=== PATIENT | female | born 1960 | race Caucasian/White ===

== ENCOUNTER 2018-09-20 11:49 | Emergency (ER) | payer OTHER ==
[~2018-09-20] VITALS: Ht 170.2 cm; Wt 114.3 kg
--- OUTSIDE RECORDS SUMMARY | ~2018-09-20 | XMS | Clinical Summary ---
Demographics + + + | Address | [address] | | | [place] [address] | + + + | Home Phone | | + + + | Preferred Language | Unknown | + + + | Marital Status | Single | + + + | Episcopal Affiliation | Unknown | + + + | Race | Unknown | + + + | Ethnic Group | Unknown | + + + Author + + + | Author | [facility] | | | and [place] | + + + | Organization | [facility] | | | and [place] | + + + | Address | Unknown | + + + | Phone | Unavailable | + + + Support + + +---------+ + | Name | Relationship | Address | Phone | + + +---------+ + | Ashleigh,Gene | ECON | Unknown | | + + +---------+ + Care Team Providers + +------+ + | Care Auto Porter Name | Role | Phone | + +------+ + | Naren Nina PA-C | PP | | + +------+ + Allergies + + + + + + | Active Allergy | Reactions | Severity | Noted | Comments | | | | | Date | | + + + + + + | Codeine | | | 11/17/19 | | | | | | 16 | | + + + + + + | Morphine | | Medium | 07/13/20 | Other reaction(s): | | | | | 16 | Other (See | | | | | | Comments) Used LOW PRESSURE KETTLE OPERATOR | | | | | | and it lowered her | | | | | | BP And medication | | | | | | was stopped | + + + + + + Medications + + + +---------+------+------+-------+ | Medication | Sig | Dispensed | Refills | Star | End | Statu | | | | | | t | Date | s | | | | | | Date | | | + + + +---------+------+------+-------+ | acetaminophen | Take 650 mg by mouth | | 0 | | | Activ | | (TYLENOL) 325 mg | every 4 hours as | | | | | e | | tablet | needed for Pain | | | | | | | | (Take 1 or 2 tablets | | | | | | | | by mouth every 4 to | | | | | | | | 6 hours if needed | | | | | | | | for pain or fever | | | | | | | | (Tylenol Equiv)). | | | | | | + + + +---------+------+------+-------+ | ALBUTEROL IN | Inhale 90 mcg into | | 0 | | | Activ | | | the lungs 4 times | | | | | e | | | daily as needed (2 | | | | | | | | puffs). | | | | | | + + + +---------+------+------+-------+ | | Inhale 1 puff into | | 0 | | | Activ | | albuterol-ipratropiu | the lungs 4 times | | | | | e | | m (COMBIVENT | daily. | | | | | | | RESPIMAT) 100-20 | | | | | | | | mcg/puff inhaler | | | | | | | + + + +---------+------+------+-------+ | ARIPiprazole | Take 10 mg by mouth | | 0 | | | Activ | | (ABILIFY) 10 mg | nightly. Begin after | | | | | e | | tablet | initial titration | | | | | | | | is completed | | | | | | + + + +---------+------+------+-------+ | cholecalciferol | Take 5,000 Units by | | 0 | | | Activ | | (VITAMIN D-3) 5000 | mouth Daily. | | | | | e | | units TABS | | | | | | | + + + +---------+------+------+-------+ | DULoxetine | Take 60 mg by mouth | | 0 | | | Activ | | (CYMBALTA) [address] | Daily. Take one | | | | | e | | capsule | capsule by mouth at | | | | | | | | bedtime for | | | | | | | | depression. Please | | | | | | | | start after initial | | | | | | | | titration is | | | | | | | | completed | | | | | | + + + +---------+------+------+-------+ | levothyroxine | Take 25 mcg by mouth | | 0 | | | Activ | | (SYNTHROID, | Daily. | | | | | e | | LEVOTHROID) 25 mcg | | | | | | | | tablet | | | | | | | + + + +---------+------+------+-------+ | loratadine | Take 10 mg by mouth | | 0 | | | Activ | | (CLARITIN) 10 mg | Daily as needed for | | | | | e | | tablet | Allergies. | | | | | | + + + +---------+------+------+-------+ | LORazepam (ATIVAN) | Take 1 mg by mouth 2 | | 0 | | | Activ | | 1 mg tablet | times daily. | | | | | e | + + + +---------+------+------+-------+ | methocarbamol | Take 750 mg by mouth | | 0 | | | Activ | | (ROBAXIN) 750 mg | 3 times daily. | | | | | e | | tablet | | | | | | | + + + +---------+------+------+-------+ | mometasone | Inhale 2 puffs into | | 0 | | | Activ | | (ASMANEX) 220 | the lungs Daily. | | | | | e | | mcg/puff inhaler | Rinse mouth after | | | | | | | | use | | | | | | + + + +---------+------+------+-------+ | nicotine | Place 1 patch onto | | 0 | | | Activ | | (NICODERM) 14 mg/24 | the skin every 24 | | | | | e | | hr | hours. | | | | | | + + + +---------+------+------+-------+ | nicotine | Place 1 patch onto | | 0 | | | Activ | | (NICODERM) 21 mg/24 | the skin every 24 | | | | | e | | hr | hours. | | | | | | + + + +---------+------+------+-------+ | nicotine | Place 1 patch onto | | 0 | | | Activ | | (NICODERM) 7 mg/24 | the skin every 24 | | | | | e | | hr | hours. | | | | | | + + + +---------+------+------+-------+ | OMEPRAZOLE PO | Take 20 mg by mouth | | 0 | | | Activ | | | 2 times daily. | | | | | e | + + + +---------+------+------+-------+ | traZODone | Take 100 mg by mouth | | 0 | | | Activ | | (DESYREL) 100 mg | nightly. Take 1/2-2 | | | | | e | | tablet | tablets by mouth at | | | | | | | | bedtime as needed | | | | | | | | for sleep | | | | | | + + + +---------+------+------+-------+ | DULoxetine | 1 capsule by mouth | 30 | 1 | 07/1 | | Activ | | (CYMBALTA) [address] | at bedtime with 60 | capsule | | 3/20 | | e | | capsule | mg at bedtime for | | | 16 | | | | | total of 90 mg | | | | | | + + + +---------+------+------+-------+ | gabapentin | 1 capsule by mouth | 120 | 1 | 07/1 | | Activ | | (NEURONTIN) 300 mg | at bedtime for 3 | capsule | | 3/20 | | e | | capsule | days; then 1 twice | | | 16 | | | | | daily for 4 days; | | | | | | | | then 1 three times | | | | | | | | daily for 7 days; | | | | | | | | then 1 qAM, 1 qNoon, | | | | | | | | and 2 qHS | | | | | | + + + +---------+------+------+-------+ Active Problems No known active problems Family History + + +------+ + | Medical History | Relation | Name | Comments | + + +------+ + | Heart defect | Brother | | | + + +------+ + | Diabetes | Father | | | + + +------+ + | Stroke | Father | | | + + +------+ + | Heart failure | Mother | | | + + +------+ + | Breast cancer | Sister | | | + + +------+ + | Cancer | Sister | | skin | + + +------+ + | Other (see comment) | Sister | | Endocrine and Metabolic disease | + + +------+ + | Ovarian cancer | Sister | | | + + +------+ + + +------+ + + | Relation | Name | Status | Comments | + +------+ + + | Brother | | | | + +------+ + + | Father | | | | + +------+ + + | Mother | | | Heart failure | | | | (Age | | | | | 60) | | + +------+ + + | [...] | | + + +---------+ + | No | 0 | 0.0 | | | | Standard | | | [...] recent travel history available. | + + Last Filed Vital Signs + + + + | Vital Sign | Reading | Time Taken | + + + + | Blood Pressure | 148/93 | 02/01/201644 PDT | + + + + | Pulse | 70 | 02/01/201644 PDT | + + + + | Temperature | - | - | + + + + | Respiratory Rate | 19 | 02/01/2016843 PDT | + + + + | Oxygen Saturation | - | - | + + + + | Inhaled Oxygen | - | - | | Concentration | | | + + + + | Weight | 109.8 kg (242 lb) | 02/01/2016843 PDT | + + + + | Height | 170.2 cm (5' 7") | 02/01/2016843 PDT | + + + + | Body Mass Index | 37.9 | 02/01/2016 0844 PDT | + + + + Plan of [...] + + | Vaccine: Influenza | | | | | (Season Ended) | 9 | | | + + + + + Results Not on filefrom Last 3 Months Insurance + +--------+ +--------+ +---------+--------+ | Payer | Benefi | Subscriber | Effect | Phone | Address | Type | | | t Plan | ID | lizet | | | | | | / | | Dates | | | | | | Group | | | | | | + +--------+ +--------+ +---------+--------+ | [place]ICAID [place] | MEDICA | [id number] | 09/03/19 | [phone] | | Medica | | | ID | | 16-Pre | 2 | | id | | | [place] | | sent | | | | + +--------+ +--------+ +---------+--------+ + +--------+ +--------+ + + | Guarantor Name | Accoun | Relation to | Date | Phone | Billing Address | | | t Type | Patient | of | | | | | | | | | | + +--------+ +--------+ + + | Bisi Becker | Person | Self | [birth year] | [address] | | | [place] | | 1960 | [phone] | [place] | | | [place] | | | 1 (Home) | [address] | + +--------+ +--------+ + + Advance Directives Patient has advance care planning documents on file. For more information, please contact:[facility] [place] [address]
--- OUTSIDE RECORDS SUMMARY | ~2018-09-20 | XMS | Clinical Summary ---
Demographics + + + | Address | [address] | | | [place] [address] | + + + | Home Phone | | + + + | Preferred Language | Unknown | + + + | Marital Status | Single | + + + | Oriental Orthodox Affiliation | 1009 | + + + | Race | Unknown | + + + | Ethnic Group | Unknown | + + + Author + + + | Author | [facility] [facility] | + + + | Organization [...] Team Providers + +------+ + | Care Cotton Broker Name | Role | Phone | + [...] | | | | | Comments) Used PSYCHOLOGIST DEVELOPMENTAL | | | | | | and it lowered her | | | | | | BP And medication | | | | | | was stopped Used | | | | | | PSYCHOLOGIST DEVELOPMENTAL and it lowered | | | | [...] | will have pt speak with the watershed coordinator today to help | | get [...] is | | maintaining. | + + Immunizations + + + + | Name [...] | | | | | | | C, MD | | | | | | /[address] | | | | | | | [...] +------+-------+ + | MEDICAID | MEDICA | [id number] | | | [address] | | | ID | | | | [place] | | | [place] | | | | [address] | + +--------+ +------+-------+ + + +--------+ +--------+ + + | Guarantor Name | Accoun | Relation to | Date | Phone | Billing Address | | | t Type | Patient | of | | | | | | | | | | + +--------+ +--------+ + + | NOHEMI BECKER | Person | Self | [birth year] | Home: | [address] | | | al/Fam | | 1960 | [phone] | [place] | | | [place] | | | [phone] | [phone] | + +--------+ +--------+ + +
--- OUTSIDE RECORDS SUMMARY | ~2018-09-20 | XMS | Clinical Summary ---
Demographics + + + | Address | [address] | | | [place] [address] | + + + | Home Phone | | + + + | Preferred Language | Unknown | + + + | Marital Status | Single | + + + | Orthodox Affiliation | Unknown | + + + | Race | Unknown | + + + | Ethnic Group | Unknown | + + + Author + + + | Author | [facility] | | | and [place] | + + + | Organization | [facility] | [...] Team Providers + +------+ + | Care Veterinary Assistant Name | Role | Phone | [...] | | | | | Comments) Used HAND WORKER | | | | | | and [...] +---------+--------+ | [place]ICAID [place] | MEDICA | [id number] | 09/03/19 | [phone] | | Medica [...] Self | [birth year] | [address] | | | [place] | | 1960 | [phone] | [place] | | | [place] | | | 1 (Home) | [address] | + +--------+ +--------+ + + Advance Directives Patient has advance care planning documents on file. For more information, please contact:[facility] [place] [address]
--- OUTSIDE RECORDS SUMMARY | ~2018-09-20 | XMS | Clinical Summary ---
Demographics + + + | Address | [address] | | | [place] [address] | + + + | Home Phone | | + + + | Preferred Language | Unknown | + + + | Marital Status | Single | + + + | Temple Affiliation | 1009 | + + + | Race | Unknown | + + + | Ethnic Group | Unknown | + + + Author + + + | Author | [facility] [facility] | + + + | Organization [...] Team Providers + +------+ + | Care Press Operator Instant Print Shop Name | Role | Phone | + [...] | | | | | Comments) Used WOOD CRAFTER | | | | | | and it lowered her | | | | | | BP And medication | | | | | | was stopped Used | | | | | | WOOD CRAFTER and it lowered | | | | [...] | will have pt speak with the habitat management coordinator today to help | | get [...] MD | | | | | | /[address] | | | | | | | [...] +------+-------+ + | MEDICAID | MEDICA | [id number] | | | [address] | | | ID | | | | [place] | | | [place] | | | | [phone] | + +--------+ +------+-------+ + + +--------+ +--------+ + + | Guarantor Name | Accoun | Relation to | Date | Phone | Billing Address | | | t Type | Patient | of | | | | | | | | | | + +--------+ +--------+ + + | NOHEMI BECKER | Person | Self [birth year] | Home: | [address] | | | al/Fam | | 1960 | [phone] | [place] | | | [place] | | | [phone] | [phone] | + +--------+ +--------+ + +
[~2018-09-20 11:49] MED LIST: ABILIFY20 MG PO; ALBUTEROL2.5 MG/0.5 INH; ATIVAN0.5 MG PO; ATIVAN1 MG PO; ATROVENT HFA12.9 GM INH; CALCIUM 600 +1 EAC5 PO; CHANTIX1 MG PO; CIPRO500 MG PO; COMBIVENT RESPIM4 GM INH; CYCLOBENZAPRINE10 MG PO; CYMBALTA30 MG PO; DOXYCYCLINE HY100 MG PO; ESTRADIOL1 EAC1 TD; FLUOXETINE HCL20 MG PO; FORMOTEROL FUMAR1 GM INH; GABAPENTIN300 MG PO; IBU800 MG PO; IBUPROFEN200 MG PO; LAMICTAL100 MG PO; LEVAQUIN750 MG PO; LEVOTHROID25 MCG PO; LEVOTHYROXINE25 MCG PO; LISINOPRIL10 MG PO; LISINOPRIL20 MG PO; LORAZEPAM1 MG PO; MAGNESIUM400 M1 PO; METHOCARBAMOL500 MG PO; MOTRIN800 MG PO; NALTREXONE HCL50 MG PO; NAPROSYN500 MG PO; NAPROXEN500 MG PO; NORCO 5-325 TA1 EACH PO; OMEPRAZOLE20 MG PO; ONDANSETRON ODT4 MG SL; OXYCODONE HCL5 MG PO; PREDNISONE20 MG PO; PRINZIDE 20-121 EACH PO; PROVENTIL HFA6.7 GM INH; QVAR7.3 G1 INH; TRAMADOL HCL50 MG PO; TRAZODONE HCL100 MG PO; VISTARIL25 MG PO; VITAMIN D5000 UNI1 PO; ZITHROMAX250 MG PO; ZOFRAN4 MG PO
--- OUTSIDE RECORDS SUMMARY | 2018-09-20 11:52 | XMS ---
PreManage Notification: NOHEMI ESPITIA Security Client Services Specialist Events No recent Security Events currently on file CRITERIA MET - [facility] PROVID[facility] Current PHONE: Unknown Chuck has no Care Guidelines for this patient. EMarily VISIT COUNT (12 MO.) 1 CASANDRA Munoz TOTAL 1 NOTE: Visits indicate total known visits. ED/UCC VISIT TRACKING (12 MO.) 09/20/2018 11:[address] [facility] [place] TYPE: Emergency COMPLAINT: - FLANK PAIN/ABD PAIN INPATIENT VISIT TRACKING (12 MO.) No inpatient visits to display in this time frame [id number]
[2018-09-20] MEDS ORDERED: VENTOLIN HFA18 GM INH (15:53)
== END 2018-09-20 16:00 | disposition home or self-care (01) ==
LOC: ED 11:49
DX: R10.9 Unspecified abdominal pain (principal); J44.1 Chronic obstructive pulmonary disease with (acute) exacerbation; I10 Essential (primary) hypertension; E78.5 Hyperlipidemia, unspecified; E03.9 Hypothyroidism, unspecified; Z85.828 Personal history of other malignant neoplasm of skin; F17.200 Nicotine dependence, unspecified, uncomplicated; Z90.710 Acquired absence of both cervix and uterus; Z79.899 Other long term (current) drug therapy
CPT/HCPCS: 36415; 80053; 81001; 83690; 85025; 99284-25; 99406

== ENCOUNTER 2018-10-11 18:54 | Emergency (ER) | payer OTHER ==
[~2018-10-11] VITALS: Ht 170.2 cm; Wt 106.4 kg
--- OUTSIDE RECORDS SUMMARY | ~2018-10-11 | XMS | Clinical Summary ---
Demographics + + + | Address | [address] | | | [place] [address] | + + + | Home Phone | | + + + | Preferred Language | Unknown | + + + | Marital Status | Single | + + + | Druze Affiliation | 1009 | + + + | Race | Unknown | + + + | Ethnic Group | Unknown | + + + Author + + + | Author | [facility] | + + + | Organization | [facility] | + + + | Address | Unknown | + + + | Phone | Unavailable | + + + Support + + +---------+ + | Name | Relationship | Address | Phone | + + +---------+ + | Mark Lewis | ECON | Unknown | | + + +---------+ + Care Team Providers + +------+ + | Care Supervisor Farm Equipment Maintenance Name | Role | Phone | + +------+ + | Naren Nina | PP | | + +------+ + Allergies + + + + + + | Active Allergy | Reactions | Severity | Noted | Comments | | | | | Date | | + + + + + + | Codeine | Other (See Comments) | Medium | 11/17/19 | | | | | | 16 | | + + + + + + | Morphine | Other (See Comments) | Medium | 01/23/20 | Other reaction(s): | | | | | 14 | Other (See | | | | | | Comments) Used MDS COORDINATOR | | | | | | and it lowered her | | | | | | BP And medication | | | | | | was stopped Used | | | | | | MDS COORDINATOR and it lowered | | | | | | her BP And | | | | | | medication was | | | | | | stopped | + + + + + + Current Medications + + + +---------+------+------+-------+ | Prescription | Sig. | Disp. | Refills | Star | End | Statu | | | | | | t | Date | s | | | | | | Date | | | + + + +---------+------+------+-------+ | FLUoxetine | Take 1 capsule by | 90 | 3 | 01/2 | | Activ | | (PROZAC) 40 MG | mouth daily. | capsule | | 2/20 | | e | | capsuleIndications: | | | | 14 | | | | Depression | | | | | | | + + + +---------+------+------+-------+ | loratadine | Take 1 tablet by | 90 | 3 | 03/2 | | Activ | | (CLARITIN) 10 MG | mouth daily. | tablet | | 1/20 | | e | | tablet | | | | 14 | | | + + + +---------+------+------+-------+ | omeprazole | Take 20 mg by mouth | | | | | Activ | | (PRILOSEC) 20 MG | every morning before | | | | | e | | capsule | breakfast. | | | | | | + + + +---------+------+------+-------+ | LORazepam (ATIVAN) | Take 1 tablet by | 50 | 0 | 07/1 | | Activ | | 1 MG | mouth every 6 (six) | tablet | | 1/20 | | e | | tabletIndications: | hours as needed for | | | 14 | | | | Anxiety | Anxiety. | | | | | | + + + +---------+------+------+-------+ | | Inhale 2 puffs into | 2 each | 11 | 07/2 | | Activ | | ipratropium-albutero | the lungs every 6 | | | 1/20 | | e | | l (COMBIVENT | (six) hours as | | | 14 | | | | RESPIMAT) 20-100 | needed for Wheezing. | | | | | | | MCG/ACT inhaler | | | | | | | + + + +---------+------+------+-------+ | buPROPion | Take 150 mg by mouth | | | | | Activ | | (WELLBUTRIN XL) 150 | 2 (two) times | | | | | e | | MG 24 hr tablet | daily. Not sure of | | | | | | | | dose | | | | | | + + + +---------+------+------+-------+ | gabapentin | take 1 capsule by | 60 | 0 | 10/0 | | Activ | | (NEURONTIN) 100 MG | mouth twice a day | capsule | | 7/20 | | e | | capsule | | | | 14 | | | + + + +---------+------+------+-------+ | promethazine | Take 1 tablet by | 30 | 0 | 10/2 | | Activ | | (PHENERGAN) 25 MG | mouth every 6 (six) | tablet | | 2/20 | | e | | tabletIndications: | hours as needed for | | | 14 | | | | Nausea | Nausea. | | | | | | + + + +---------+------+------+-------+ | gabapentin | take 2 capsules by | 60 | 0 | 11/0 | | Activ | | (NEURONTIN) 300 MG | mouth every evening | capsule | | 8/20 | | e | | capsule | | | | 14 | | | + + + +---------+------+------+-------+ | levothyroxine | Take 1 tablet by | 90 | 3 | 11/1 | | Activ | | (SYNTHROID) 25 MCG | mouth every morning | tablet | | 1/20 | | e | | tabletIndications: | before breakfast. | | | 14 | | | | Hypothyroid | | | | | | | + + + +---------+------+------+-------+ | methocarbamol | Take 750 mg by mouth | | | | | Activ | | (ROBAXIN) 750 MG | 3 (three) times | | | | | e | | tablet | daily. | | | | | | + + + +---------+------+------+-------+ | DULoxetine | Take 30 mg by mouth | | | | | Activ | | (CYMBALTA) 30 MG | 3 (three) times | | | | | e | | capsule | daily. | | | | | | + + + +---------+------+------+-------+ | traZODone | Take 100 mg by mouth | | | | | Activ | | (DESYREL) 100 MG | nightly. | | | | | e | | tablet | | | | | | | + + + +---------+------+------+-------+ | | Take 1 tablet by | | | | | Activ | | HYDROcodone-acetamin | mouth every 6 (six) | | | | | e | | ophen (NORCO) 10-325 | hours as needed for | | | | | | | MG per tablet | Pain. | | | | | | + + + +---------+------+------+-------+ | calcium-vitamin D | | | | 07/0 | | Activ | | (CALCITRATE) 600-400 | | | | 6/20 | | e | | MG-UNIT per tablet | | | | 18 | | | + + + +---------+------+------+-------+ | ibuprofen (MOTRIN) | | | | 07/0 | | Activ | | 800 MG tablet | | | | 6/20 | | e | | | | | | 18 | | | + + + +---------+------+------+-------+ | magnesium oxide | | | | 07/0 | | Activ | | (MAG-OX) 400 MG | | | | 6/20 | | e | | tablet | | | | 18 | | | + + + +---------+------+------+-------+ | ondansetron | | | | 07/0 | | Activ | | (ZOFRAN) 4 MG tablet | | | | 6/20 | | e | | | | | | 18 | | | + + + +---------+------+------+-------+ Active Problems + + + | Problem | Noted Date | + + + | Spondylolisthesis at L4-L5 level | 06/06/2017 | + + + | Recurrent displacement of lumbar disc | 06/06/2017 | + + + | Acute GI bleeding | 01/10/2015 | + + + | Hematemesis | 01/10/2015 | + + + | Rectal bleeding | 01/10/2015 | + + + | Epigastric abdominal pain | 01/10/2015 | + + + | NSAID induced gastritis | 01/10/2015 | + + + | ARF (acute renal failure) | 01/10/2015 | + + + | Abnormal LFTs | 01/10/2015 | + + + | Leukocytosis, unspecified | 01/10/2015 | + + + | Metabolic acidosis | 01/10/2015 | + + + | CHI (obstructive sleep apnea) | 01/10/2015 | + + + | Chronic hepatitis C without hepatic coma (HCC) | 01/10/2015 | + + + | DDD (degenerative disc disease), lumbar | 11/25/2013 | + + + + + | Last Assessment & Plan: Please see discussion under lumbar | | radicular pain | + + + + + | Facet joint disease of lumbosacral region | 11/25/2013 | + + + + + | Last Assessment & Plan: Please see discussion under lumbar | | radicular pain | + + + + + | Stenosis of lumbosacral spine | 09/19/2013 | + + + + + | Last Assessment & Plan: Please see discussion under lumbar | | radicular pain | + + + + + | Lumbosacral radiculopathy at L5 | 09/19/2013 | + + + + + | Last Assessment & Plan: In summary, this is a 53 year old | | female who has low back pain with left L5 radicular pain. Her | | lumbar MRI showed moderate to severe central canal stenosis. | | Multilevel neural foraminal narrowing, greatest at L5-S1 on the | | left side. We reviewed her MRI and discussed options. She has | | tried some conservative measures. She is a candidate for a | | lumbar epidural steroid injection as her symptoms could be due to | | the foraminal narrowing at L5-S1 and the spinal stenosis at | | L4-5. Will plan on a caudal with catheter lumbar epidural | | steroid injection targeting left L5 and S1 nerve roots under | | fluoroscopic guidance.Plan, alternatives, risks and potential | | benefits of the procedure were explained to the patient in great | | detail. The patient understands that there is no guarantee they | | will get pain relief with this procedure. They also understand | | that if they do get pain relief that there is no way to know how | | long it will last. They also understand there is a risk to the | | procedure itself which includes but are not limited to infection, | | abscess, hematoma, nerve damage, paraplegia or quadriplegia, | | increased pain, spinal headache, stroke, and side effects from | | the medications themselves. The patient wishes to proceed. | + + + + + | Altered mental status | 09/19/2013 | + + + | Polypharmacy | 09/19/2013 | + + + | Back ache | 09/19/2013 | + + + | Chronic pain | 09/03/2013 | + + + + + | Overview: Managed by Dr. Eliazar Ocampo Assessment & Plan: i | | will not provide pain medication. Pt was directed to her pain | | specialist who she will see tomorrow | + + + + + | Radiculopathy of lumbar region | 08/22/2013 | + + + | Mixed stress and urge urinary incontinence | 07/02/2013 | + + + | Dyspareunia | 07/02/2013 | + + + | Cystocele | 07/02/2013 | + + + + + | Overview: Grade 2. | + + + + + | Rectocele | 07/02/2013 | + + + + + | Overview: Grade 2-3 | + + + + + | OAB (overactive bladder) | 07/02/2013 | + + + | Bipolar affective | 06/24/2013 | + + + + + | Last Assessment & Plan: Pt hasn't been evaluated by | | psychology for about 7 years. Not currently well managed, speech | | and thoughts are tengential. Not suicidal. I suspect her mental | | health is playing a significant role in her recent illness and | | hospitalization.We referred her to [facility] earlier this month, | | will have pt speak with the corporate coordinator today to help | | get this process underway. | + + + + + | HTN (hypertension) | 06/24/2013 | + + + + + | Last Assessment & Plan: Well managed currently | | No changes to regimen | + + + + + | COPD (chronic obstructive pulmonary disease) | 06/24/2013 | + + + + + | Last Assessment & Plan: Pt with COPD and cough. Was treated | | for viral URI a couple of weeks ago in ER. No evidence of | | pneumonia or respiratory distress, though it appears cough is not | | resolving.Will treat with z-pack.Pt would like codeine cough | | syrup, though I explained to her that it would interfere with her | | pain contract and that I'm not willing to do that. I offered | | tessalon pearls but pt said she has those and they don't work | | anyway. Recommended OTC cough suppressant if needed.I will | | revisit this chronic condition with her to make sure it's well | | controlled, except during exacerbations | + + + + + | Nicotine addiction | 06/24/2013 | + + + + + | Last Assessment & Plan: Will start pt back on Chantix | | Discussed nicotine cessation techniques. | + + + + + | Sleep apnea | 06/24/2013 | + + + + + | Last Assessment & Plan: Managed by Dr. Harvey. Pt will make an | | appointment to get a f/u visit with him. She feels her mask is | | not fitting correctly. This can certainly cause fatigue if pt is | | not sleeping well. | + + + + + | Spinal stenosis, lumbar | 06/24/2013 | + + + + + | Last Assessment & Plan: Pt will require chronic pain | | management. I am not providing this management. Pain is chronic, | | no new develomentsReferral ordered | + + + + + | GERD (gastroesophageal reflux disease) | 06/24/2013 | + + + + + | Last Assessment & Plan: Suspect dyspepsia/GERD. Pt has hx of | | H.pyloriTest for H pylori. Start with H2 reena to see if this | | improves symptoms. Treat nausea today | + + Resolved Problems + + + + | Problem | Noted | Resolved | | | Date | Date | + + + + | Acidosis | 09/21/19 | | | | 14 | 4 | + + + + | Rhabdomyolysis | 09/20/19 | | | | 14 | 4 | + + + + | Marijuana abuse | 09/20/19 | | | | 14 | 7 | + + + + | Dizziness and giddiness | 09/20/19 | | | | 14 | 4 | + + + + | Hypotension, unspecified | 09/20/19 | | | | 14 | 4 | + + + + | ARF (acute renal failure) | 09/20/19 | | | | 14 | 4 | + + + + + + | Last Assessment & Plan: Last metabolic panel showed | | normalized renal function prior to pt being discharged from | | hospital. Will just recheck this to make sure kidney function is | | maintaining. | + + Encounters +--------+ + + + + | Date | Type | Specialty | Care Team | Description | +--------+ + + + + | 10/10/ | Telephone | | Stephania Berry MA | | | 2018 | | | | | +--------+ + + + + from Last 3 Months Immunizations + + + + | Name | Dates Previously Given | Next Due | + + + + | Influenza, Trivalent | 03/23/2010, 03/08/2009 | | | W/Preservative | | | + + + + | Pneumococcal | 09/20/2013 | | | Polysaccharide | | | | 23-valent | | | + + + + Family History + + +------+ + | Medical History | Relation | Name | Comments | + + +------+ + | Diabetes | Father | | | + + +------+ + | Diabetes type II | Father | | | + + +------+ + | Heart disease | Mother | | | + + +------+ + | Breast cancer | Sister | | | + + +------+ + | Skin cancer | Sister | | | + + +------+ + | Ovarian cancer | Sister | | | + + +------+ + + +------+ + + | Relation | Name | Status | Comments | + +------+ + + | Father | | | | + +------+ + + | Mother | | | | + +------+ + + | Sister | | | | + +------+ + + | Sister | | | | + +------+ + + | Sister | | | | + +------+ + + Social History + +-------+ +--------+------+ | Tobacco Use | Types | Packs/Day | Years | Date | | | | | Used | | + +-------+ +--------+------+ | Current Every Day | | 0.5 | 38 | | | Smoker | | | | | + +-------+ +--------+------+ + +---+---+---+ | Smokeless Tobacco: | | | | | Never Used | | | | + +---+---+---+ + + | Tobacco Cessation: Counseling Given: Yes | | Comments: using e cigs, has information to quit | + + + + +---------+ + | Alcohol Use | Drinks/We | oz/Week | Comments | | | ek | | | + + +---------+ + | Yes | 1 | 0.5 | occasionally | | | Standard | | | | | drinks or | | | | | | | | | | equivalen | | | | | t | | | + + +---------+ + + + + | Sex Assigned at | Date Recorded | | | | + + + | Not on file | | + + + Last Filed Vital Signs + + + + | Vital Sign | Reading | Time Taken | + + + + | Blood Pressure | 123/85 | 06/06/2017 11:00 AM PST | + + + + | Pulse | 87 | 06/06/2017 11:00 AM PST | + + + + | Temperature | 36.2 C (97.1 F) | 03/01/2017 11:03 AM PDT | + + + + | Respiratory Rate | 16 | 03/01/2017 11:03 AM PDT | + + + + | Oxygen Saturation | 96% | 06/06/2017 11:00 AM PST | + + + + | Inhaled Oxygen | - | - | | Concentration | | | + + + + | Weight | 116.3 kg (256 lb 8 | 06/06/2017 11:00 AM PST | | | oz) | | + + + + | Height | 170.2 cm (5' 7") | 06/06/2017 11:00 AM PST | + + + + | Body Mass Index | 40.17 | 06/06/2017 11:00 AM PST | + + + + Plan of Treatment + + + + + | Health Maintenance | Due Date | Last Done | Comments | + + + + + | Vaccine: | | | | | Dtap/Tdap/Td (1 - | 9 | | | | Tdap) | | | | + + + + + | Cervical Cancer | | | | | Screening (Pap) | 0 | | | + + + + + | Breast Cancer | | | | | Screening | 0 | | | | (Mammogram) | | | | + + + + + | Vaccine: Zoster (1 | | | | | of 2) | 0 | | | + + + + + | Vaccine: | | 09/20/2013 | | | Pneumococcal 19-64 | 5 | | | | Highest Risk (2 of 3 | | | | | - PCV13) | | | | + + + + + | Vaccine: Influenza | | 03/23/2010, 03/08/2009 | | | (Season Ended) | 9 | | | + + + + + | Colon Cancer | | 01/11/2015 | | | Screening | 5 | | | | (Colonoscopy) | | | | + + + + + Implants + +------+--------+ +--------+--------+--------+ | Implanted | Type | Area | Manufacture | Device | Expira | Model | | | | | r | | tion | / | | | | | | Identi | Date | Serial | | | | | | fier | | / Lot | + +------+--------+ +--------+--------+--------+ | Sling Bladder Tvt Exact Tvtrl | | N/A: | [employer] | | 09/02/ | TVTRL | | - StvtrlImplanted: Qty: 1 on | | Vagina | | | 2014 | /TVTRL | | 12/24/2013 by Misha Dye | | | | | | | | MD John | | | | | | /[id number] | | | | | | | | 43 | + +------+--------+ +--------+--------+--------+ Results Not on filefrom Last 3 Months Insurance + +--------+ +------+-------+ + | Payer | Benefi | Subscriber | Type | Phone | Address | | | t Plan | ID | | | | | | / | | | | | | | Group | | | | | + +--------+ +------+-------+ + | MEDICAID | MEDICA | [id number] | | | [address] | | | ID | | | | [place], [place] | | | [place] | | | | [phone] | + +--------+ +------+-------+ + + +--------+ +--------+ + + | Guarantor Name | Accoun | Relation to | Date | Phone | Billing Address | | | t Type | Patient | of | | | | | | | | | | + +--------+ +--------+ + + | NOHEMI BECKER | Person | Self [birth year] Home: | [address] | | | [place] | | 1960 | [phone] | [place] | | | [place] | | | [phone] | + +--------+ +--------+ + +
--- OUTSIDE RECORDS SUMMARY | ~2018-10-11 | XMS | Clinical Summary ---
Demographics + + + | Address | [address] | | | [place] [address] | + + + | Home Phone | | + + + | Preferred Language | Unknown | + + + | Marital Status | Single | + + + | Yazidi Affiliation | 1009 | + + + | Race | Unknown | + + + | Ethnic Group | Unknown | + + + Author + + + | Author | [facility] | + + + | Organization [...] Team Providers + +------+ + | Care Silo Erector Name | Role | Phone | + [...] | | | | | Comments) Used HAIR DRESSER | | | | | | and it lowered her | | | | | | BP And medication | | | | | | was stopped Used | | | | | | HAIR DRESSER and it lowered | | | | [...] | will have pt speak with the production coordinator today to help | | get [...] [place] | | | | | | /[id number] | | | | | | | [...] +------+-------+ + | MEDICAID | MEDICA | [id number] | | | [address] | | | ID | | | | [place], [place] | | | [place] | | | | [address] | + +--------+ +------+-------+ + + +--------+ +--------+ + + | Guarantor Name | Accoun | Relation to | Date | Phone | Billing Address | | | t Type | Patient | of | | | | | | | | | | + +--------+ +--------+ + + | NOHEMI BECKER | Person | Self | [birth year] | Home: | [address] | | | [place] | | 1960 | [phone] | [place] | | | [place] | | | [phone] | + +--------+ +--------+ + +
--- OUTSIDE RECORDS SUMMARY | ~2018-10-11 | XMS | Clinical Summary ---
Demographics + + + | Address | [address] | | | [place] [address] | + + + | Home Phone | | + + + | Preferred Language | Unknown | + + + | Marital Status | Single | + + + | Jew Affiliation | Unknown | + + + | Race | Unknown | + + + | Ethnic Group | Unknown | + + + Author + + + | Author | [facility] | | | and [place] | + + + | Organization | [facility] | | | and [place] [...] Team Providers + +------+ + | Care Book Coverer Name | Role | Phone | + [...] | | | | | Comments) Used BEVEL GEAR GENERATOR OPERATOR | | | | | | [...] +---------+--------+ | MEDICAID [place] | MEDICA | [id number] | 09/03/19 | [phone] | | Medica [...] Self | [birth year] | [address] | | | [place] | | 1960 | [phone] | [place] | | | [place] | | | [address] (Home) | [address] | + +--------+ +--------+ + + Advance Directives Patient has advance care planning documents on file. For more information, please contact:[facility] [place] [address]
--- OUTSIDE RECORDS SUMMARY | ~2018-10-11 | XMS | Clinical Summary ---
Demographics + + + | Address | [address] | | | [place] [address] | + + + | Home Phone | | + + + | Preferred Language | Unknown | + + + | Marital Status | Single | + + + | Restoration Affiliation | Unknown | + + + | Race | Unknown | + + + | Ethnic Group | Unknown | + + + Author + + + | Author | [facility] | | | and [place] | + + + | Organization | 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 For more information, please contact:[facility] [place] [address]
--- OUTSIDE RECORDS SUMMARY | ~2018-10-11 | XMS | Encounter Summary ---
Demographics + + + | Address | [address] | | | [place] [address] | + + + | Home Phone | | + + + | Preferred Language | Unknown | + + + | Marital Status | Single | + + + | Scientologist Affiliation | 1009 | + + + | Race | Unknown | + + + | Ethnic Group | Unknown | + + + Author + + + | Author | [facility] | + + + | Organization [...] Team Providers + +------+ + | Care Double Cutter Name | Role | Phone | + +------+ + | Naren Nina | PCP | | + +------+ + Encounter Details +--------+ + + + + | Date | Type | Department | Care Team | Description | +--------+ + + + + | 10/10/ | Telephone | [facility] | Stephania Berry MA | | | 2018 | | Infectious Disease | | | | | | [address] | | | | | | [facility] [address] | | | | | | [place] [address] | | | | | | [phone] | | | +--------+ + + + [...] | | + +---+---+---+ + + | Comments: using e cigs, [...] on file | | + + + as of this encounter Plan of Treatment Not on fileas of this encounter Visit Diagnoses Not on filein this encounter"
--- OUTSIDE RECORDS SUMMARY | ~2018-10-11 | XMS | Encounter Summary ---
Demographics + + + | Address | [address] | | | [place] [address] | + + + | Home Phone [...] + + + | Author | [facility] | + + + | Organization [...] Team Providers + +------+ + | Care Grocery Caddy Name | Role | Phone | + +------+ + | Naren Nina | PCP | | + +------+ + Encounter Details +--------+ + + + + | Date | Type | Department | Care Team | Description | +--------+ + + + + | 10/10/ | Telephone | [facility] | Stephania Berry MA | | | 2018 | | Infectious Disease | | | | | | [address] | | | | | | [facility] [address] | | | | | | [place] [address] | | | | | | [phone] | | | +--------+ + + + [...]
[~2018-10-11 18:54] MED LIST changes: +VENTOLIN HFA18 GM INH
--- OUTSIDE RECORDS SUMMARY | 2018-10-11 18:56 | XMS ---
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 Care History Medical/Surgical 09/23/2018 [facility] \T\middot;\T\nbsp; PATIENT IS A [employer] MEMBER. \T\middot;\T\nbsp; PLEASE REFER PATIENT TO [facility] FOR NON EMERGENT MEDICAL NEEDS. \T\middot;\ T\nbsp; [facility] CAN SEE PATIENTS SAME DAY FOR APTS IF PATIENT CALLS FIRST THING IN THE MORNING. E.D. VISIT COUNT (12 MO.) 2 CASANDRA Munoz TOTAL 2 NOTE: Visits indicate total known visits. ED/UCC VISIT TRACKING (12 MO.) 10/11/2018 18:54 [facility] TYPE: Emergency COMPLAINT: - SORES ON FACE 09/20/2018 11:50 [facility] TYPE: Emergency COMPLAINT: - FLANK PAIN/ABD PAIN DIAGNOSES: - Nicotine dependence, unspecified, uncomplicated - Acquired absence of both cervix and uterus - Hyperlipidemia, unspecified - Chronic obstructive pulmonary disease with (acute) exacerbation - Personal history of other malignant neoplasm of skin - Unspecified abdominal pain - Essential (primary) hypertension - Low back pain - Hypothyroidism, unspecified - Other care home (current) drug therapy INPATIENT VISIT TRACKING (12 MO.) No inpatient visits to display in this time frame [id number]
[2018-10-11] MEDS ORDERED: CEPHALEXIN500 MG PO (20:02)
== END 2018-10-11 20:19 | disposition home or self-care (01) ==
LOC: ED 18:54
DX: L01.00 Impetigo, unspecified (principal); J44.9 Chronic obstructive pulmonary disease, unspecified; I10 Essential (primary) hypertension; E78.5 Hyperlipidemia, unspecified; E03.9 Hypothyroidism, unspecified; Z85.828 Personal history of other malignant neoplasm of skin; F17.200 Nicotine dependence, unspecified, uncomplicated; Z90.710 Acquired absence of both cervix and uterus; Z90.49 Acquired absence of other specified parts of digestive tract; Z79.899 Other long term (current) drug therapy
CPT/HCPCS: 99282

== ENCOUNTER 2019-02-10 13:47 | Emergency (ER) | payer OTHER ==
[~2019-02-10] VITALS: Ht 170.2 cm; Wt 99.8 kg
[~2019-02-10 13:47] MED LIST changes: +CEPHALEXIN500 MG PO
--- OUTSIDE RECORDS SUMMARY | 2019-02-10 13:50 | XMS ---
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 Care History Medical/Surgical 09/23/2018 [facility] \T\middot;\T\nbsp; PATIENT IS A [email or web address] MEMBER. \T\middot;\T\nbsp; PLEASE REFER PATIENT TO [facility] FOR NON EMERGENT MEDICAL NEEDS. \T\middot;\ T\nbsp; [facility] CAN SEE PATIENTS SAME DAY FOR APTS IF PATIENT CALLS FIRST THING IN THE MORNING. E.D. VISIT COUNT (12 MO.) 3 [facility] TOTAL 3 NOTE: Visits indicate total known visits. ED/UCC VISIT TRACKING (12 MO.) 02/10/2019 13:48 [facility] [place] TYPE: Emergency COMPLAINT: - SKIN IRRITATIONS 10/11/2018 18:54 [facility] [place] TYPE: Emergency COMPLAINT: - SORES ON FACE DIAGNOSES: - Acquired absence of both cervix and uterus - Other intermediate (current) drug therapy - Hyperlipidemia, unspecified - Hypothyroidism, unspecified - Impetigo, unspecified - Essential (primary) hypertension - Acquired absence of other specified parts of digestive tract - Chronic obstructive pulmonary disease, unspecified - Personal history of other malignant neoplasm of skin - Nicotine dependence, unspecified, uncomplicated - Local infection of the skin and subcutaneous tissue, unspecified 09/20/2018 11:[address] [facility] [place] [...] back pain - Hypothyroidism, unspecified - Other intermediate (current) drug therapy INPATIENT VISIT TRACKING (12 MO.) No inpatient visits to display in this time frame [email or web address]
== END 2019-02-10 13:59 | disposition home or self-care (01) ==
LOC: ED 13:47
DX: L98.9 Disorder of the skin and subcutaneous tissue, unspecified (principal)

== ENCOUNTER 2019-08-22 18:06 | Emergency (ER) | payer OTHER ==
[~2019-08-22] VITALS: Ht 170.2 cm; Wt 99.8 kg
--- OUTSIDE RECORDS SUMMARY | 2019-08-22 18:10 | XMS ---
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 Care History Medical/Surgical 09/23/2018 [facility] \T\middot;\T\nbsp; PATIENT IS A [employer] MEMBER. \T\middot;\T\nbsp; PLEASE REFER PATIENT TO [facility] FOR NON EMERGENT MEDICAL NEEDS. \T\middot;\ T\nbsp; [facility] CAN SEE PATIENTS SAME DAY FOR APTS IF PATIENT CALLS FIRST THING IN THE MORNING. E.D. VISIT COUNT (12 MO.) 4 [facility] TOTAL 4 NOTE: Visits indicate total known visits. ED/UCC VISIT TRACKING (12 MO.) 08/22/2019 18:07 [facility] [place] TYPE: Emergency COMPLAINT: - FLANK PAIN, URINE PROBLEM, FLU SX 02/10/2019 13:48 [facility] [place] TYPE: Emergency COMPLAINT: - SKIN IRRITATIONS, MSED TO CLINIC DIAGNOSES: - Disorder of the skin and subcutaneous tissue, unspecified 10/11/2018 18:54 [facility] [place] TYPE: Emergency [...] infection of the skin and subcutaneous tissue, unspecif 09/20/2018 11:50 [facility] [place] TYPE: Emergency COMPLAINT: - FLANK PAIN/ABD PAIN DIAGNOSES: - Nicotine dependence, unspecified, uncomplicated - Acquired absence of both cervix and uterus - Hyperlipidemia, unspecified - Chronic obstructive pulmonary disease w (acute) exacerbation - Personal history of other malignant neoplasm of skin - Unspecified abdominal pain - Essential (primary) hypertension - Low back pain - Hypothyroidism, unspecified - Other intermediate (current) drug therapy INPATIENT VISIT TRACKING (12 MO.) No inpatient visits to display in this time frame [email or web address]
[2019-08-22] MEDS ORDERED: ZYPREXA10 MG PO (18:36)
[2019-08-22] MEDS ORDERED: ZOFRAN4 MG PO (18:37)
[2019-08-22] MEDS ORDERED: CLONIDINE HCL0.1 MG PO (18:37)
[2019-08-22] MEDS ORDERED: PREDNISONE20 MG PO (20:01)
--- NOTE | 2019-08-23 11:57 | EKG ---
[facility] [address] [place], [place] [address] Signed Normal sinus rhythm Normal ECG No previous ECGs available Confirmed by TERESITA CAI DO ([id number]) on 08/23/2019 11:57:39 AM Electronically Signed By: TERESITA CAI DO 08/23/19 1157 PATIENT NAME: NOHEMI ESPITIA Electrocardiogram DATE OF : 60 PHYSICIAN: TERESITA CAI DO REPORT #: [id number] REPORT IS CONFIDENTIAL AND NOT TO BE RELEASED WITHOUT AUTHORIZATION
== END 2019-08-22 20:26 | disposition home or self-care (01) ==
LOC: ED 18:06
DX: J44.1 Chronic obstructive pulmonary disease with (acute) exacerbation (principal); I10 Essential (primary) hypertension; E78.5 Hyperlipidemia, unspecified; E03.9 Hypothyroidism, unspecified; F17.200 Nicotine dependence, unspecified, uncomplicated; Z79.899 Other long term (current) drug therapy
CPT/HCPCS: 71046; 80053; 81001; 85025; 87502; 93005; 93010; 99284-25

== ENCOUNTER 2019-10-27 15:52 | Emergency (ER) | payer OTHER ==
[~2019-10-27] VITALS: Ht 170.2 cm; Wt 106.6 kg
--- OUTSIDE RECORDS SUMMARY | ~2019-10-27 | XMS | Encounter Summary ---
Demographics + + + | Address | [address] | | | [place] [address] | + + + | Home Phone | | + + + | Preferred Language | Unknown | + + + | Marital Status | Single | + + + | Yarsani Affiliation | 1009 | + + + | Race | Unknown | + + + | Ethnic Group | Unknown | + + + Author + + + | Author | [facility] | | | and [place] | + + + | Organization | [facility] | | | and [place] | + + + | Address | Unknown | + + + | Phone | Unavailable | + + + Support + + +---------+ + | Name | Relationship | Address | Phone | + + +---------+ + | Gene Sotelo | ECON | Unknown | | + + +---------+ + | Mark Lewis | ECON | Unknown | | + + +---------+ + Care Team Providers + +------+ + | Care Bead Inspector Name | Role | Phone | + +------+ + | Naren Nina PA-C | PCP | | + +------+ + Encounter Details +--------+ + + + + | Date | Type | Department | Care Team | Description | +--------+ + + + + | 09/27/ | Orders Only | [facility] | Conversion | | | 2017 | | INFECTIOUS DISEASE | Transaction, | | | | | [address] | Provider Unknown | | | | | [place], [place] | | | | | | [phone] | (Fax) | | | | | [phone] | | | +--------+ + + + + Social History + +-------+ +--------+------+ | Tobacco Use | Types | Packs/Day | Years | Date | | | | | Used | | + +-------+ +--------+------+ | Current Every Day | | | 35 | | | Smoker | | | | | + +-------+ +--------+------+ + + +---------+ + | Alcohol Use | Drinks/Week | oz/Week | Comments | + + +---------+ + | No | 0 Standard drinks | 0.0 | | | | or equivalent | | | + + +---------+ + + + + | Sex Assigned at | Date Recorded | | | | + + + | Not on file | | + + + + + + + | Job Start Date | Occupation | Industry | + + + + | Not on file | Not on file | Not on file | + + + + + + + + | Travel History | Travel Start | Travel End | + + + + + + | No recent travel history available. | + + documented as of this encounter Plan of Treatment +--------+---------+ + + + | Date | Type | Specialty | Care Team | Description | +--------+---------+ + + + | 10/30/ | Office | Neurosurgery | Jose Gonzalez DO | | | 2019 | Visit | | [address] | | | | | | [place] [address] | | | | | | [phone] | | | | | | | | +--------+---------+ + + + documented as of this encounter Procedures + +--------+ + + + | Procedure Name | Priori | Date/Time | Associated Diagnosis | Comments | | | ty | | | | + +--------+ + + + | HEPATITIS C | Routin | 09/27/2016 | | Results for this | | RNA,QUANTITATIVE,PCR | e | 12:00 AM | | procedure are in the | | | | PDT | | results section. | + +--------+ + + + | HEPATIC FUNCTION | Routin | 09/27/2016 | | Results for this | | PANEL | e | 12:00 AM | | procedure are in the | | | | PDT | | results section. | + +--------+ + + + documented in this encounter Results Hepatitis C RNA, quantitative, PCR (09/27/2016 12:00 AM PDT) + + + + + + | Component | Value | Ref Range | Performed | Pathologist | | | | | At | Signature | + + + + + + | HCV-LOG 10 | not detected | Log IU/ml | EXTERNAL | | | | | | LAB | | + + + + + + | HCV | not detected | IU/ml | EXTERNAL | | | Quantitativ | | | LAB | | | e | | | | | + + + + + + + + | Specimen | + + | Blood specimen | | (specimen) | + + + +---------+ + + | Performing | Address | City/State/Zipcode | Phone Number | | Organization | | | | + +---------+ + + | EXTERNAL LAB | | | | + +---------+ + + Hepatic Function Panel (09/27/2016 12:00 AM PDT) + +---------+ + + + | Component | Value | Ref Range | Performed | Pathologist | | | | | At | Signature | + +---------+ + + + | Protein, | 8.8 (A) | 6.2 - 8.2 g/dL | EXTERNAL | | | Total | | | LAB | | + +---------+ + + + | Albumin | 3.7 | | EXTERNAL | | | | | | LAB | | + +---------+ + + + | Bilirubin | 0.3 | mg/dL | EXTERNAL | | | Total | | | LAB | | + +---------+ + + + | Bilirubin | 0.1 | mg/dL | EXTERNAL | | | Direct | | | LAB | | + +---------+ + + + | ALP, | 101 | | EXTERNAL | | | External | | | LAB | | + +---------+ + + + | AST | 21 | U/L | EXTERNAL | | | | | | LAB | | + +---------+ + + + | ALT | 23 | U/L | EXTERNAL | | | | | | LAB | | + +---------+ + + + | A/G Ratio | | | EXTERNAL | | | | | | LAB | | + +---------+ + + + | Globulin, | | | EXTERNAL | | | Total | | | LAB | | + +---------+ + + + + + | Specimen | + + | Blood specimen | | (specimen) | + + + +---------+ + + | Performing | Address | City/State/Zipcode | Phone Number | | Organization | | | | + +---------+ + + | EXTERNAL LAB | | | | + +---------+ + + documented in this encounter Visit Diagnoses Not on filedocumented in this encounter"
--- OUTSIDE RECORDS SUMMARY | ~2019-10-27 | XMS | Encounter Summary ---
Demographics + + + | Address | [address] | | | [place] [address] | + + + | Home Phone | | + + + | Preferred Language | Unknown | + + + | Marital Status | Single | + + + | Anabaptism Affiliation | 1009 | + + + | Race | Unknown | + + + | Ethnic Group | Unknown | + + + Author + + + | Author | [facility] | | | and [place] | + + + | Organization | [facility] | | | and [place] | [...] Team Providers + +------+ + | Care Waste Hand Name | Role | Phone | + +------+ + | Hayden Acevedo MD | PCP | | + +------+ + Encounter Details +--------+ + + + + | Date | Type | Department | Care Team | Description | +--------+ + + + + | 12/11/ | Hospital | [facility] | Conversion | | | 2014 | Encounter | [facility] | Transaction, | | | | | CLINIC [address] | Provider Unknown | | | | | [place], [place] | [phone] | | | | | [phone] | (Fax) | | | | | [phone] | | | +--------+ + + + [...] | | | | | [place] [address] | | | | | | [phone] | | | | | | | [...] LAB | | | | Blvd;[place] [address] | | | | + + + + + + | Antibody | NEGATIVE | | EXTERNAL | | | Screen | | | LAB | | + + + + + + | Antibody | Testing performed at | | EXTERNAL | | | Screen | [facility] | | LAB | | | | Blvd;[place] [address] | | | | + + + [...] | | | | | performed at [facility], [address] | | | | | | [facility], | | | | | | [place] [address] | | | | + + + [...] EXTERNAL | | | | performed at [facility], [address] | | LAB | | | | [place], | | | | | | [place] [address] | | | | + + + + + + | Red Blood | 4.38Comment: Testing | 3.70 - 5.10 | EXTERNAL | | | Cells | performed at [facility], [address] | M/uL | LAB | | | Counted | [address], | | | | | | [place] [address] | | | | + + + + + + | Hemoglobin | 13.1Comment: Testing | 11.3 - 15.5 | EXTERNAL | | | | performed at [facility], [address] | g/dL | LAB | | | | [address], | | | | | | [place] [address] | | | | + + + + + + | Hematocrit, | 40.3Comment: Testing | 34.0 - 46.0 % | EXTERNAL | | | POC | performed at [facility], [address] | | LAB | | | | [address], | | | | | | [place] [address] | | | | + + + + + + | MCV | 92.1Comment: Testing | 80.0 - 100.0 fl | EXTERNAL | | | | performed at [facility], [address] | | LAB | | | | [address], | | | | | | [place] [address] | | | | + + + + + + | MCH | 29.9Comment: Testing | 27.0 - 34.0 pg | EXTERNAL | | | | performed at [facility], [address] | | LAB | | | | [address], | | | | | | [place] [address] | | | | + + + + + + | MCHC | 32.5Comment: Testing | 32.0 - 35.5 | EXTERNAL | | | | performed at [facility], [address] | g/dL | LAB | | | | [address], | | | | | | [place] [address] | | | | + + + + + + | RDW-CV | 48.1Comment: Testing | 37 - 53 fl | EXTERNAL | | | | performed at [facility], [address] | | LAB | | | | [address], | | | | | | [place] [address] | | | | + + + + + + | Platelet | 271Comment: Testing | 150 - 400 K/uL | EXTERNAL | | | Count | performed at [facility], [address] | | LAB | | | Plasma | [address], | | | | | | [place] [address] | | | | + + + + + + | MPV | 8.8Comment: Testing | fl | EXTERNAL | | | | performed at [facility], [address] | | LAB | | | | [address], | | | | | | [place] [address] | | | | + + + + + + | Differentia | AUTOMATEDComment: | | EXTERNAL | | | l Type | Testing performed at | | LAB | | | | [facility], [address] | | | | | | [place] | | | | | | [address] | | | | + + + + + + | % Segmented | 52.9Comment: Testing | % | EXTERNAL | | | | performed at [facility], [address] | | LAB | | | Neutrophils | [address], | | | | | | [place] [address] | | | | + + + + + + | % | 33.3Comment: Testing | % | EXTERNAL | | | Lymphocytes | performed at [facility], [address] | | LAB | | | | [address], | | | | | | [place] [address] | | | | + + + + + + | % Monocytes | 7.9Comment: Testing | % | EXTERNAL | | | | performed at [facility], [address] | | LAB | | | | [address], | | | | | | [place] [address] | | | | + + + + + + | % | 5.1Comment: Testing | % | EXTERNAL | | | Eosinophils | performed at [facility], [address] | | LAB | | | | [address], | | | | | | [place] [address] | | | | + + + + + + | % Basophils | 0.8Comment: Testing | % | EXTERNAL | | | | performed at [facility], [address] | | LAB | | | | [address], | | | | | | [place] [address] | | | | + + + + + + | Absolute | 3.6Comment: Testing | 1.9 - 7.4 K/uL | EXTERNAL | | | Segmented | performed at [facility], [address] | | LAB | | | Neutrophils | [address], | | | | | | [place] [address] | | | | + + + + + + | Absolute | 2.3Comment: Testing | 1.0 - 3.9 K/uL | EXTERNAL | | | Lymphocytes | performed at [facility], [address] | | LAB | | | | [address], | | | | | | [place] [address] | | | | + + + + + + | Absolute | 0.5Comment: Testing | 0 - 0.8 K/uL | EXTERNAL | | | Monocytes | performed at [facility], [address] | | LAB | | | | [address], | | | | | | [place] [address] | | | | + + + + + + | Absolute | 0.3Comment: Testing | 0 - 0.5 K/uL | EXTERNAL | | | Eosinophils | performed at [facility], [address] | | LAB | | | | [address], | | | | | | [place] [address] | | | | + + + + + + | Absolute | 0.1Comment: Testing | 0 - 0.1 K/uL | EXTERNAL | | | Basophils | performed at [facility], [address] | | LAB | | | | [address], | | | | | | [place] [address] | | | | + + + [...] | | | | | [place] [address] | | | | + + + + + + | K | 3.5Comment: Testing | 3.5 - 4.9 | EXTERNAL | | | | performed at [facility], [address] | mmol/L | LAB | | | | [address], | | | | | | [place] [address] | | | | + + + + + + | Cl | 108Comment: Testing | 99 - 109 mmol/L | EXTERNAL | | | | performed at [facility], [address] | | LAB | | | | [address], | | | | | | [place] [address] | | | | + + + + + + | CO2 | 27Comment: Testing | 23 - 32 mmol/L | EXTERNAL | | | | performed at [facility], [address] | | LAB | | | | [address], | | | | | | [place] [address] | | | | + + + + + + | Anion Gap | 6Comment: Testing | 5 - 20 mmol/L | EXTERNAL | | | | performed at [facility], [address] | | LAB | | | | [address], | | | | | | [place] [address] | | | | + + + + + + | Glucose, | 104 (H)Comment: Testing | 65 - 99 mg/dL | EXTERNAL | | | Fasting | performed at [facility], [address] | | LAB | | | | [address], | | | | | | [place] [address] | | | | + + + + + + | BUN | 21Comment: Testing | 8 - 25 mg/dL | EXTERNAL | | | | performed at [facility], [address] | | LAB | | | | [address], | | | | | | [place] [address] | | | | + + + + + + | Creatinine | 0.84Comment: Testing | 0.50 - 1.00 | EXTERNAL | | | | performed at [facility], [address] | mg/dL | LAB | | | | [address], | | | | | | [place] [address] | | | | + + + + + + | BUN/Creatin | 25Comment: Testing | | EXTERNAL | | | ine Ratio | performed at [facility], [address] | | LAB | | | | [address], | | | | | | [place] [address] | | | | + + + + + + | Calcium | 10.1Comment: Testing | 8.5 - 10.2 | EXTERNAL | | | | performed at [facility], [address] | mg/dL | LAB | | | | [address], | | | | | | [place] [address] | | | | + + + + + + | Protein, | 8.2Comment: Testing | 6.3 - 8.2 g/dL | EXTERNAL | | | Total | performed at [facility], [address] | | LAB | | | | [address], | | | | | | [place] [address] | | | | + + + + + + | Albumin | 3.8Comment: Testing | 3.6 - 5.0 g/dL | EXTERNAL | | | | performed at [facility], [address] | | LAB | | | | [address], | | | | | | [place] [address] | | | | + + + + + + | Globulin | 4.4Comment: Testing | 1.3 - 4.9 g/dL | EXTERNAL | | | | performed at [facility], [address] | | LAB | | | | [address], | | | | | | [place] [address] | | | | + + + + + + | A/G Ratio | 0.9 (L)Comment: Testing | 1.0 - 2.4 | EXTERNAL | | | | performed at [facility], [address] | | LAB | | | | [address], | | | | | | [place] [address] | | | | + + + + + + | Bilirubin | 0.2Comment: Testing | 0.1 - 1.5 mg/dL | EXTERNAL | | | Total | performed at [facility], [address] | | LAB | | | | [address], | | | | | | [place] [address] | | | | + + + + + + | ALP, | 94Comment: Testing | 35 - 115 U/L | EXTERNAL | | | External | performed at [facility], [address] | | LAB | | | | [address], | | | | | | [place] [address] | | | | + + + + + + | AST | 126 (H)Comment: Testing | 10 - 45 U/L | EXTERNAL | | | | performed at [facility], [address] | | LAB | | | | [address], | | | | | | [place] [address] | | | | + + + + + + | ALT | 164 (H)Comment: Testing | 10 - 65 U/L | EXTERNAL | | | | performed at [facility], [address] | | LAB | | | | [address], | | | | | | [place] [address] | | | | + + + [...] | | | | | | at [facility], [address] | | | | | | [address], | | | | | | [place] [address] | | | | + + + [...]
--- OUTSIDE RECORDS SUMMARY | ~2019-10-27 | XMS | Encounter Summary ---
Demographics + + + | Address | [address] | | | [place] [address] | + + + | Home Phone | | + + + | Preferred Language | Unknown | + + + | Marital Status | Single | + + + | Druze Affiliation | 1009 | + + + | Race | Unknown | + + + | Ethnic Group | Unknown | + + + Author + + + | Author | [facility] | | | and [place] | + + + | Organization | [facility] | | | and [...] Team Providers + +------+ + | Care Medication Technician Name | Role | Phone | + +------+ + | Naren Nina PA-C | PCP | | + +------+ + Encounter Details +--------+ + + + + | Date | Type | Department | Care Team | Description | +--------+ + + + + | 11/16/ | Abstract | [facility] [place] | Henri Stewart, | | | 2015 | | PHYSIATRY [address] | MD [address] | | | | | [address] | [place] | | | | | [place], [place] | [address] | | | | | [address] | | | | | | [phone] | | | +--------+ + + + [...] | 2019 | Visit | | [address] | | | | | | [address] | | | | | | [place] [address] | | | | | | [phone] | | | | | | | | +--------+---------+ + + + documented as of this encounter Visit Diagnoses Not on filedocumented in this encounter"
--- OUTSIDE RECORDS SUMMARY | ~2019-10-27 | XMS | Encounter Summary ---
Demographics + + + | Address | [address] | | | [place] [address] | + + + | Home Phone | | + + + | Preferred Language | Unknown | + + + | Marital Status | Single | + + + | Lutheran Affiliation | 1009 | + + + | Race | Unknown | + + + | Ethnic Group | Unknown | + + + Author + + + | Author | [facility] | | | and [place] | + + + | Organization | [facility] [...] Team Providers + +------+ + | Care Embalmer Assistant Name | Role | Phone | + +------+ + | Naren Nina PA-C | PCP | | + +------+ + Reason for Visit + + + | Reason | Comments | + + + | Referral | | + + + Encounter Details +--------+ + + + + | Date | Type | Department | Care Team | Description | +--------+ + + + + | 01/17/ | Telephone | [facility] [place] | Henri Stewart, | Referral | | 2016 | | PHYSIATRY [address] | MD [address] | | | | | [address] | [place], [place] | | | | | [place], [place] | [address] | | | | | [address] | | | | | | [phone] | | | +--------+ + + + [...] | | | | | [place] [address] | | | | | | [phone] | | | | | | | | +--------+---------+ + + + documented as of this encounter Visit Diagnoses Not on filedocumented in this encounter"
--- OUTSIDE RECORDS SUMMARY | ~2019-10-27 | XMS | Encounter Summary ---
Demographics + + + | Address | [address] | | | [place] [address] | + + + | Home Phone | | + + + | Preferred Language | Unknown | + + + | Marital Status | Single | + + + | Anabaptism Affiliation | 1009 | + + + | Race | Unknown | + + + | Ethnic Group | Unknown | + + + Author + + + | Author | [facility] | | | and [place] | + + + | Organization | [facility] | | | and [place] [...] Team Providers + +------+ + | Care Marriage Performer Name | Role | Phone | + +------+ + | Naren Nina PA-C | PCP | | + +------+ + Encounter Details +--------+ + + + + | Date | Type | Department | Care Team | Description | +--------+ + + + + | 02/10/ | Orders Only | [facility] | [place], | | | 2013 | | INFECTIOUS DISEASE | MD [address] | | | | | [address] | [place] | | | | | [place], [place] | [place] [address] | | | | | [address] | [phone] | | | | | [phone] | | | +--------+ + + + [...] documented as of this encounter Progress Notes Delilah Santos S - 10/22/2013 2:33 PM PDTFormatting of this note might be different fr om the original. Progress Notes by Delilah Santos MD at 10/22/13 0145 Author: Delilah Santos MD Service: (none) Author Type: Physician Filed: 10/22/13 1636 Encounter Date: 10/22/2013 Status: Signed Publications Sales Representative: Delilah Santos MD (Physician) Subjective: Patient ID: Bisi Becker is a 53 y.o. female. HPI The patient has been referred by ANURAG Winters regarding chronic hepatitis C. Past medical history, medications, allergies, social and family history have been reviewed. The patient has a history of bipolar affective disorder, recent hospital admission to [facility] in September for polypharmacy resulting into altered mental status, history of marijuana abus e, chronic low back pain secondary to lumbar spinal stenosis with L5 radiculopathy, cystocel e and rectocele. Patient most likely contracted hepatitis C from IV drug use. She states that she has stopp ed IV drugs as well as speaking alcoholic beverages for about 20 years. She has COPD and a smoker. She is making efforts together with her primary care provider to stop smoking. She is currently in a stable relationship with someone who also has hepatitis C but a diffe rent genotype. She reports that they have been following safe sexual practices. She reports being in a very stressful situation. Her mother has just been placed in hospic e. Her brother about 2 weeks ago from cardiac condition. Another family member also p assed away within the past 3 weeks. She is scheduled to have rectocele and cystocele repair on December 24; this will be under Dr. Dye. She will also follow-up with at [facility] on November 13 and according to the patient, there may be surgical intervention that will be needed to address her back pain. Review of Systems Gen.: Denies fevers, chills or sweats. She feels tired but attributes this to current even ts in her family. She reports her appetite as being fair. HEENT: Patient has mild, occasional headaches. No acute visual problems. No rhinorrhea or sinus pains. No hearing difficulties. No oral discomfort, ulcers or thrush. No sore thro at or difficulty swallowing. No neck pains. Cardiovascular: No chest pains or palpitations Respiratory: Patient has productive cough with known bronchitis/COPD. She continues to smo ke but plans to quit. She is planning to start Chantix today. She also has obstructive sle ep apnea and plans to start using her CPAP, particularly since the mask has been changed to nasal pillows. GI: Patient has occasional nausea but denies vomiting. She has vague, occasional sharp lef t sided abdominal pain. She denies diarrhea, constipation, blood in her stool. : See history of present illness Musculoskeletal: See history of present illness Neurologic: No syncopal episodes or episodes of altered mental status since her hospitaliza tion. She denies focal weakness. Psychiatric: See history of present illness. Specifically denies suicidal ideations Hematologic: No lymphadenopathy, easy bruisability or bleeding episodes Objective: Physical Exam Vital signs have been reviewed Gen.: Obese, not in acute distress HEENT: Normocephalic, no alopecia, anicteric sclerae, no conjunctival lesions, EOM intact, pupils are reactive to light, no nasal mucosal lesions, moist oral mucosa, no oral thrush or ulcers, no pharyngeal lesions, supple neck, no cervical lymphadenopathy Cardiovascular: Regular rate and rhythm, no murmurs Lungs: No rales or rhonchi noted; scattered wheezes noted at both lung mon. O2 sat in ro om air is 97%. Abdomen: Scars consistent with prior surgeries noted. Positive bowel sounds, soft, no hep atosplenomegaly Musculoskeletal: No spine tenderness. No swollen joints. No lower extremity edema Cutaneous: No rashes, skin ulcers Neurologic: Oriented 3, no focal weakness Psychiatric: Currently calm and cooperative Lab Results Component Value Date WBC 8.4 09/29/2013 HGB 12.1 09/29/2013 HCT 36.5 09/29/2013 MCV 90.4 09/29/2013 PLT 330 09/29/2013 GLUCOSE Date Value Range Status 10/08/2013 146* 65 - 99 mg/dL Final BUN Date Value Range Status 10/08/2013 15 8 - 25 mg/dL Final CREATININE Date Value Range Status 10/08/2013 0.89 0.50 - 1.00 mg/dL Final BUN/CREAT Date Value Range Status 10/08/2013 17 Final TOTAL PROTEIN Date Value Range Status 09/29/2013 7.7 6.3 - 8.2 g/dL Final GLOBULIN Date Value Range Status 09/29/2013 3.7 1.3 - 4.9 g/dL Final TBIL Date Value Range Status 09/29/2013 0.4 0.1 - 1.5 mg/dL Final ALT Date Value Range Status 09/29/2013 114* 10 - 65 U/L Final AST Date Value Range Status 09/29/2013 115* 10 - 45 U/L Final SODIUM Date Value Range Status 10/08/2013 137 135 - 143 mmol/L Final POTASSIUM Date Value Range Status 10/08/2013 4.7 3.5 - 4.9 mmol/L Final CHLORIDE Date Value Range Status 10/08/2013 107 99 - 109 mmol/L Final CO2 Date Value Range Status 10/08/2013 26 23 - 32 mmol/L Final ANION GAP AGAP Date Value Range Status 10/08/2013 9 5 - 20 mmol/L Final HCV rachell PCR/probe Status: Final result MyChart: Released Next appt: 10/29/2013 at 9:35AM with ANURAG WINTERS Dx: Infectious disease Value HCV Genotype TYPE 2B Comments: HCV GENOTYPE WAS DETERMINED BY RT-PCR AND FERROCENE LABELLED PROBE. THIS ASSAY DETECTS AND DIFFERENTIATES THE 6 MAJOR HCV GENOTYPES AND THEIR MOST COMMON SUBTYPES (1A, 1B, 2A/C, 2B, 3, 4, 5, 6). THIS TEST WAS DEVELOPED AND ITS PERFORMANCE CHARACTERISTICS DETERMINED BY [facility]ORATORY MEDICINE. IT HAS NOT BEEN APPROVED OR CLEARED BY THE [place] FOOD AND DRUG ADMINISTRATION. THIS TEST SHOULD NOT BE REGARDED INVESTIGATIONAL OR FOR RESEARCH USE. Specimen Collected: 10/08/13 10:40 AM HCV rachell PCR/probe Status: Final result MyChart: Released Next appt: 10/29/2013 at 9:35AM with ANURAG WINTERS Dx: Infectious disease Value HCV Genotype TYPE 2B Comments: HCV GENOTYPE WAS DETERMINED BY RT-PCR AND FERROCENE LABELLED PROBE. THIS ASSAY DETECTS AND DIFFERENTIATES THE 6 MAJOR HCV GENOTYPES AND THEIR MOST COMMON SUBTYPES (1A, 1B, 2A/C, 2B, 3, 4, 5, 6). THIS TEST WAS DEVELOPED AND ITS PERFORMANCE CHARACTERISTICS DETERMINED BY [facility] MEDICINE. IT HAS NOT BEEN APPROVED OR CLEARED BY THE [place] FOOD AND DRUG ADMINISTRATION. THIS TEST SHOULD NOT BE REGARDED INVESTIGATIONAL OR FOR RESEARCH USE. Specimen Collected: 10/08/13 10:40 AM HIV 1/2 antibodies, rapid Status: Final result MyChart: Not Released Next appt: 10/29/2013 at 9:35AM with ANURAG CHRISTENSEN Dx: Infectious disease Value Range HIV1/HIV2 NON REACTIVE NR^NON REACTIVE Comments: THE NON REACTIVE HIV 1/2 ANTIBODY RESULT INDICATES THAT ANTIBODIES TO HIV 1/2 HAVE NOT BEEN DETECTED IN THIS SPECIMEN. THIS RESULT DOES NOT PRECLUDE PREVIOUS EXPOSURE OR INFECTION. Specimen Collected: 10/08/13 10:40 AM Hepatitis B surface antigen Status: Final result MyChart: Not Released Next appt: 10/29/2013 at 9:35AM with ANURAG CHRISTENSEN Dx: Infectious disease Value Range HEP B SURFACE AG NON REACTIVE NR^NON REACTIVE Specimen Collected: 10/08/13 10:40 AM Hepatitis B surface antibody Status: Final result MyChart: Not Released Next appt: 10/29/2013 at 9:35AM with ANURAG CHRISTENSEN Dx: Infectious disease Value Range HEP B SURFACE ANTIBODY <0.35 <1.00 IV Comments: <1.00 Non Immune 1.00 OR MORE Indicates vaccine response or response to HBV infection. An Index Value (IV) of 1.00 is equivalent to 10 mIU/mL. Samples with an IV of 1.[address] are considered reactive (protected) in accordance with CDC Guidelines. Specimen Collected: 10/08/13 10:40 AM Hepatitis A antibodies, total Status: Final result MyChart: Released Next appt: 10/29/2013 at 9:35AM with ANURAG WINTERS Dx: Infectious disease Value Range Hep A Total Ab NON REACTIVE NR^NON REACTIVE Specimen Collected: 10/08/13 10:40 AM Impression 1. Mild splenomegaly. 2. Unremarkable liver. 3. Cholecystectomy. 4. No biliary tract dilatation. 5. Gas obscures aorta, pancreas. abdomen complete [[id number]] Assessment and Plan: Visit Diagnoses and Associated Orders: Hepatitis c - HCV fibrosure Back pain Rectocele Smoking Bipolar affective Bronchitis Patient has chronic hepatitis C, genotype 2. I have discussed with the patient about curr ent standard of therapy for her condition. She can potentially be treated with sofosbuvir 4 00 mg daily and ribavirin 1200 mg daily for 12 weeks. In the absence of cirrhosis, sustaine d virologic response can be over 90%. Sofosbuvir is relatively benign. We have discussed p otential side effects of ribavirin that would include cytopenias, fatigue, teratogenicity (p atient reports having had hysterectomy). She is currently undergoing stressful life situations and has multiple other medical issues that she is trying to address. With two potential surgeries planned in the next couple of months, we have discussed about following up in the ID office and focusing on hepatitis C th erapy in January. The patient was advised to continue to stay away from illicit drugs and alcohol. She was e ncouraged to stop smoking. She was advised to avoid acetaminophen or other potentially hepa totoxic agents. She was advised to discussed with her providers or pharmacist about hepatot oxic potential of any new medications. The patient was advised to obtain vaccinations for hepatitis A and B to avoid co-infections . This can be carried out through her primary care provider or through the [facility]. I will defer her bronchitis/COPD management with ANURAG Winters. documented in this encounter Plan of Treatment +--------+---------+ + + + | Date | Type | Specialty | Care Team | Description | +--------+---------+ + + + | 10/30/ | Office | Neurosurgery | Jose Gonzalez DO | | | 2019 | Visit | | [address] | | | | | | [place] [address] | | | | | | [phone] | | | | | | | | +--------+---------+ + + + documented as of this encounter Procedures + +--------+ + + + | Procedure Name | Priori | Date/Time | Associated Diagnosis | Comments | | | ty | | | | + +--------+ + + + | HEPATITIS C, | Routin | 02/10/2014 | | Results for this | | FIBROSURE PANEL | e | 11:17 AM | | procedure are in the | | | | PDT | | results section. | + +--------+ + + + documented in this encounter Results Hepatitis C, Fibrosure Panel (02/10/2014 11:17 AM PDT) + + + + + + | Component | Value | Ref Range | Performed | Pathologist | | | | | At | Signature | + + + + + + | HCV | 0.35 (H)Comment: Testing | 0.00 - 0.21 | EXTERNAL | | | FibroSURE | performed by [facility], | | LAB | | | Results | [address], | | | | | | [place] [address] | | | | + + + + + + | FIBROSURE | F1 TO O5Nhuztgh: Testing | | EXTERNAL | | | STAGE | performed by [facility], | | LAB | | | | [address], | | | | | | [place] [address] | | | | + + + + + + | Necroinflam | 0.33 (H)Comment: Testing | 0.00 - 0.17 | EXTERNAL | | | mat | performed by [facility], | | LAB | | | Activity | [address], | | | | | Score | [place] [address] | | | | + + + + + + | Necroinflam | SEE BELOWComment: A1, | | EXTERNAL | | | mat | MINIMAL ACTIVITYTesting | | LAB | | | Activity | performed by [facility], | | | | | Grade | [address], | | | | | | [place] [address] | | | | + + + + + + | Alpha | 290 (H)Comment: Testing | 110 - 276 mg/dL | EXTERNAL | | | 2-Macroglob | performed by [facility], | | LAB | | | wilfrid Qn | [address], | | | | | | [place] [address] | | | | + + + + + + | Haptoglobin | 134Comment: Testing | 34 - 200 mg/dL | EXTERNAL | | | | performed by [facility], | | LAB | | | | [address], | | | | | | [place] [address] | | | | + + + + + + | Apolipoprot | 127Comment: Testing | 110 - 205 mg/dL | EXTERNAL | | | ein A-1 | performed by [facility], | | LAB | | | | [address], | | | | | | [place] [address] | | | | + + + + + + | Bilirubin, | 0.2Comment: Testing | 0.0 - 1.2 mg/dL | EXTERNAL | | | Total | performed by [facility], | | LAB | | | | [address], | | | | | | [place] [address] | | | | + + + + + + | Gamma | 119 (H)Comment: Testing | 0 - 60 IU/L | EXTERNAL | | | Glutamyl | performed by [facility], | | LAB | | | Transferase | [address], | | | | | | [place] [address] | | | | + + + + + + | ALT (SGPT) | 53 (H)Comment: Testing | 0 - 40 IU/L | EXTERNAL | | | P5P | performed by [facility], | | LAB | | | | [address], | | | | | | [place] [address] | | | | + + + + + + | Interpretat | SEE BELOWComment: | | EXTERNAL | | | ion: | QUANTITATIVE RESULTS OF | | LAB | | | | 6 BIOCHEMICAL TESTS ARE | | | | | | ANALYZED USINGA | | | | | | COMPUTATIONAL ALGORITHM | | | | | | TO PROVIDE A | | | | | | QUANTITATIVE | | | | | | SURROGATEMARKER | | | | | | (0.0-1.0) FOR LIVER | | | | | | FIBROSIS (METAVIR F0-F4) | | | | | | AND | | | | | | FORNECROINFLAMMATORY | | | | | | ACTIVITY (METAVIR | | | | | | A0-A3).FIBROSIS SCORING: | | | | | | <0.21 = STAGE F0 | | | | | | - NO FIBROSIS0.21 - 0.27 | | | | | | = STAGE F0 - F10.27 - | | | | | | 0.31 = STAGE F1 - PORTAL | | | | | | FIBROSIS0.31 - 0.48 = | | | | | | STAGE F1 - F20.48 - 0.58 | | | | | | = STAGE F2 - BRIDGING | | | | | | FIBROSIS WITH FEW | | | | | | SEPTA0.58 - 0.72 = STAGE | | | | | | F3 - BRIDGING FIBROSIS | | | | | | WITH MANY SEPTA0.72 - | | | | | | 0.74 = STAGE F3 - F4 | | | | | | >0.74 = STAGE F4 - | | | | | | CIRRHOSISNECROINFLAMM | | | | | | ACTIVITY SCORING: | | | | | | <0.17 = GRADE A0 - NO | | | | | | ACTIVITY0.17 - 0.29 = | | | | | | GRADE A0 - A10.29 - 0.36 | | | | | | = GRADE A1 - MINIMAL | | | | | | ACTIVITY0.36 - 0.52 = | | | | | | GRADE A1 - A20.52 - 0.60 | | | | | | = GRADE A2 - MODERATE | | | | | | ACTIVITY0.60 - 0.62 = | | | | | | GRADE A2 - A3 | | | | | | >0.62 = GRADE A3 - | | | | | | SEVERE ACTIVITYTesting | | | | | | performed by [facility], | | | | | | [address], | | | | | | [facility] [address] | | | | + + + + + + | Limitations | SEE BELOWComment: THE | | EXTERNAL | | | : | NEGATIVE PREDICTIVE | | LAB | | | | VALUE OF A FIBROTEST | | | | | | SCORE <0.31 (ABSENCE | | | | | | OFCLINICALLY SIGNIFICANT | | | | | | FIBROSIS) WAS 85% WHEN | | | | | | COMPARED TO LIVER | | | | | | BIOPSYIN 1,270 HCV | | | | | | INFECTED PATIENTS WITH A | | | | | | 38% PREVALENCE OF | | | | | | SIGNIFICANTLIVER | | | | | | FIBROSIS (F2, 3 OR 4). | | | | | | THE POSITIVE PREDICTIVE | | | | | | VALUE OF A FIBRO-TEST | | | | | | SCORE >0.48 (F2, 3, 4) | | | | | | WAS 61% IN THAT SAME | | | | | | PATIENT COHORT. | | | | | | HCVFIBROSURE IS NOT | | | | | | RECOMMENDED IN PATIENTS | | | | | | WITH GILBERT DISEASE, | | | | | | ACUTEHEMOLYSIS (E.G. HCV | | | | | | RIBAVIRIN THERAPY | | | | | | MEDIATED HEMOLYSIS) | | | | | | ACUTE HEPA-TITIS OF THE | | | | | | LIVER, EXTRA-HEPATIC | | | | | | CHOLESTASIS, TRANSPLANT | | | | | | PATIENTS,AND/OR RENAL | | | | | | INSUFFICIENCY PATIENTS. | | | | | | ANY OF THESE CLINICAL | | | | | | SITUATIONSMAY LEAD TO | | | | | | INACCURATE QUANTITATIVE | | | | | | PREDICTIONS OF FIBROSIS | | | | | | ANDNECROINFLAMMATORY | | | | | | ACTIVITY IN THE | | | | | | LIVER.Testing performed | | | | | | by [facility], [address] | | | | | | [place] | | | | | | [address] | | | | + + + + + + | Comment | SEE BELOWComment: THIS | | EXTERNAL | | | | TEST WAS DEVELOPED AND | | LAB | | | | ITS PERFORMANCE | | | | | | CHARACTERISTICS | | | | | | DETERMINEDBY [facility]. IT | | | | | | HAS NOT BEEN CLEARED OR | | | | | | APPROVED BY THE FOOD | | | | | | AND DRUGADMINISTRATION. | | | | | | THE FDA HAS DETERMINED | | | | | | THAT SUCH CLEARANCE | | | | | | ORAPPROVAL IS NOT | | | | | | NECESSARY.FOR QUESTIONS | | | | | | REGARDING THIS REPORT | | | | | | PLEASE CONTACT THE | | | | | | [facility] | | | | | | BIOLOGY AND PATHOLOGY | | | | | | CUSTOMER SERVICE | | | | | | DEPARTMENT | | | | | | [phone].Testing | | | | | | performed by [facility], | | | | | | [address], | | | | | | [place] [address] | | | | + + + + + + + + | Specimen | + + | | + + + +---------+ + + | Performing | Address | City/State/Zipcode | Phone Number | | Organization | | | | + +---------+ + + | EXTERNAL LAB | | | | + +---------+ + + documented in this encounter Visit Diagnoses Not on filedocumented in this encounter"
--- OUTSIDE RECORDS SUMMARY | ~2019-10-27 | XMS | Encounter Summary ---
Demographics + + + | Address | [address] | | | [place] [address] | + + + | Home Phone | | + + + | Preferred Language | Unknown | + + + | Marital Status | Single | + + + | Muslim Affiliation | 1009 | + + + | Race | Unknown | + + + | Ethnic Group | Unknown | + + + Author + + + | Author | [facility] | | | and [place] | + + + | Organization | [facility] | | | and [place] [...] Team Providers + +------+ + | Care Still Operator Name | Role | Phone | + +------+ + | Naren Nina PA-C | PCP | | + +------+ + Encounter Details +--------+ + + + + | Date | Type | Department | Care Team | Description | +--------+ + + + + | 03/01/ | Orders Only | [facility] | Danielle, | | | 2017 | | [address] | [address] | | | | | [place], [place] | [address] | | | | | [address] | [place] [address] | | | | | [phone] | [phone] | | | | | | | | +--------+ + + + + Social History + +-------+ +--------+------+ | Tobacco Use | Types | Packs/Day | Years | Date | | | | | Used | | + +-------+ +--------+------+ | Current Every Day | | 0.5 | 35 | | | Smoker | | | | | + +-------+ +--------+------+ + + | Comments: using e cigs, has information to quit | + + + + +---------+ + | Alcohol Use | Drinks/Week | oz/Week | Comments | + + +---------+ + | No | 0 Standard drinks | 0.0 | Alcoholic | | | or equivalent | | Drinks/day: | | | | | occasionally | + + +---------+ + + + [...] | | | | | [place] [address] | | | | | | [phone] | | | | | | | | +--------+---------+ + + + documented as of this encounter Procedures + +--------+ + + + | Procedure Name | Priori | Date/Time | Associated Diagnosis | Comments | | | ty | | | | + +--------+ + + + | ALPHA FETOPROTEIN, | Routin | 03/01/2017 | | Results for this | | L3 PERCENT | e | 12:26 PM | | procedure are in the | | | | PDT | | results section. | + +--------+ + + + | CREATININE | Routin | 03/01/2017 | | Results for this | | | e | 12:26 PM | | procedure are in the | | | | PDT | | results section. | + +--------+ + + + documented in this encounter Results Alpha fetoprotein, L3 percent (03/01/2017 12:26 PM PDT) + + + + + + | Component | Value | Ref Range | Performed | Pathologist | | | | | At | Signature | + + + + + + | AFP | 3.6Comment: Reference | ng/mL | EXTERNAL | | | Maternal | range: 0.0 to 8.0AFP and | | LAB | | | | AFP-L3% measured by | | | | | | [facility] liquid | | | | | | phase | | | | | | bindingmethodology.Resul | | | | | | ts for this test should | | | | | | not be used as absolute | | | | | | evidence ofpresence or | | | | | | absence of malignant | | | | | | disease without | | | | | | confirmation ofthe | | | | | | diagnosis by another | | | | | | medically established | | | | | | diagnostic productor | | | | | | procedure. Values | | | | | | obtained with different | | | | | | assay methods orkits | | | | | | cannot be used | | | | | | interchangeably. | | | | + + + + + + | Alpha | (See Below)Comment: | % | EXTERNAL | | | Fetoprotein | Reference range: 0.0 to | | LAB | | | , L3 | 9.9AFP-L3% result is | | | | | Percent | below the detection | | | | | | limit of the assay. | | | | + + + + + + + + | Specimen | + + | Blood specimen | | (specimen) | + + + +---------+ + + | Performing | Address | City/State/Zipcode | Phone Number | | Organization | | | | + +---------+ + + | EXTERNAL LAB | | | | + +---------+ + + Creatinine (03/01/2017 12:26 PM PDT) + +-------+ + + + | Component | Value | Ref Range | Performed | Pathologist | | | | | At | Signature | + +-------+ + + + | Creatinine | 0.9 | 0.50 - 1.00 | EXTERNAL | | | | | mg/dL | LAB | | + +-------+ + + + + + | Specimen [...]
--- OUTSIDE RECORDS SUMMARY | ~2019-10-27 | XMS | Encounter Summary ---
Demographics + + + | Address | [address] | | | [place] [address] | + + + | Home Phone | | + + + | Preferred Language | Unknown | + + + | Marital Status | Single | + + + | Lutheran Affiliation | 1009 | + + + | Race | Unknown | + + + | Ethnic Group | Unknown | + + + Author + + + | Author | [facility] | | | and [place] | + + + | Organization | [facility] | | | and [...] Team Providers + +------+ + | Care Senior Billing Consultant Name | Role | Phone | + +------+ + | Hayden Acevedo MD | PCP | | + +------+ + Encounter Details +--------+ + + + + | Date | Type | Department | Care Team | Description | +--------+ + + + + | 08/07/ | Hospital | [facility] | Conversion | | | 2014 | Encounter | [facility] | Transaction, | | | | | [address] | Provider Unknown | | | | | [address] [place], [place] | | | | | | [address] | (Fax) | | | | | [phone] | | | +--------+ + + + [...] [address] | | | | | | [address] | | | | | | [place] [address] | | | | | | [phone] | | | | | | | | +--------+---------+ + + + documented as of this encounter Visit Diagnoses Not on filedocumented in this encounter"
--- OUTSIDE RECORDS SUMMARY | ~2019-10-27 | XMS | Encounter Summary ---
Demographics + + + | Address | [address] | | | [place] [address] | + + + | Home Phone | | + + + | Preferred Language | Unknown | + + + | Marital Status | Single | + + + | Latter Day Affiliation | 1009 | + + + | Race | Unknown | + + + | Ethnic Group | Unknown | + + + Author + + + | Author | [facility] | | | and [place] | + + + | Organization | [facility] | | | and [...] Team Providers + +------+ + | Care Commissioning Agent Name | Role | Phone | + +------+ + | Naren Nina PA-C | PCP | | + +------+ + Encounter Details +--------+ + + + + | Date | Type | Department | Care Team | Description | +--------+ + + + + | 10/03/ | Orders Only | [facility] | Conversion | | | 2015 | | INFECTIOUS DISEASE | Transaction, | | | | | [address] | Provider Unknown | | | | | [place], [place] | | | | | | [address] | (Fax) | | | | | [phone] | | | +--------+ + + + [...] | 10/30/ | Office | Neurosurgery | CarlosJose perezDO | | | 2019 | Visit | | [address] | [address] | | | | | | [place] [address] | | | | | | [phone] | | | | | | | | +--------+---------+ + + + documented as of this encounter Procedures + +--------+ + + + | Procedure Name | Priori | Date/Time | Associated Diagnosis | Comments | | | ty | | | | + +--------+ + + + | EXTERNAL LAB: CBC | Routin | 10/18/2015 | | Results for this | | | e | 12:00 AM | | procedure are in the | | | | PDT | | results section. | + +--------+ + + + | TSH | Routin | 10/18/2015 | | Results for this | | | e | 12:00 AM | | procedure are in the | | | | PDT | | results section. | + +--------+ + + + | T4, FREE | Routin | 10/18/2015 | | Results for this | | | e | 12:00 AM | | procedure are in the | | | | PDT | | results section. | + +--------+ + + + | EXTERNAL LAB: CBC | Routin | 10/04/2015 | | Results for this | | | e | 12:00 AM | | procedure are in the | | | | PDT | | results section. | + +--------+ + + + | HEPATITIS C, | Routin | 10/04/2015 | | Results for this | | FIBROSURE PANEL | e | 12:00 AM | | procedure are in the | | | | PDT | | results section. | + +--------+ + + + | COMPREHENSIVE | Routin | 10/04/2015 | | Results for this | | METABOLIC PANEL | e | 12:00 AM | | procedure are in the | | | | PDT | | results section. | + +--------+ + + + documented in this encounter Results External Lab: CBC (10/18/2015 12:00 AM PDT) + +-------+ + + + | Component | Value | Ref Range | Performed | Pathologist | | | | | At | Signature | + +-------+ + + + | WBC | 4.9 | 4.0 - 11.0 10 | EXTERNAL | | | | | | LAB | | + +-------+ + + + | Red Blood | 3.98 | 3.8 - 5.2 10 | EXTERNAL | | | Cells | | | LAB | | | Counted | | | | | + +-------+ + + + | Hemoglobin | 12.5 | 12 - 16 g/dL | EXTERNAL | | | | | | LAB | | + +-------+ + + + | Hematocrit, | 36.7 | 35 - 45 % | EXTERNAL | | | POC | | | LAB | | + +-------+ + + + | MCV | 92.2 | 81 - 99 fL | EXTERNAL | | | | | | LAB | | + +-------+ + + + | MCH | 31.4 | 27 - 33 pg | EXTERNAL | | | | | | LAB | | + +-------+ + + + | MCHC | 34.1 | 30 - 36 g/dL | EXTERNAL | | | | | | LAB | | + +-------+ + + + | Platelet | 195 | 140 - 440 K/ L | EXTERNAL | | | Count | | | LAB | | | Plasma | | | | | + +-------+ + + + | RDW-CV | 14.5 | 10.5 - 15 % | EXTERNAL | | | | | | LAB | | + +-------+ + + + | MPV | | fL | EXTERNAL | | | | | | LAB | | + +-------+ + + + | Differentia | | | EXTERNAL | | | l Type | | | LAB | | + +-------+ + + + | % Segmented | 59.1 | 37 - 67 % | EXTERNAL | | | | | | LAB | | | Neutrophils | | | | | + +-------+ + + + | % | 31.7 | 24 - 44 % | EXTERNAL | | | Lymphocytes | | | LAB | | + +-------+ + + + | % Monocytes | | % | EXTERNAL | | | | | | LAB | | + +-------+ + + + | % | | % | EXTERNAL | | | Eosinophils | | | LAB | | + +-------+ + + + | % Basophils | | % | EXTERNAL | | | | | | LAB | | + +-------+ + + + | Absolute | | / L | EXTERNAL | | | Segmented | | | LAB | | | Neutrophils | | | | | + +-------+ + + + | Absolute | | / L | EXTERNAL | | | Lymphocytes | | | LAB | | + +-------+ + + + | Absolute | | / L | EXTERNAL | | | Monocytes | | | LAB | | + +-------+ + + + | Absolute | | / L | EXTERNAL | | | Eosinophils | | | LAB | | + +-------+ + + + | Absolute | | / L | EXTERNAL | | | Basophils | | | LAB | | + +-------+ + + + + + | Specimen | + + | Blood specimen | | (specimen) | + + + +---------+ + + | Performing | Address | City/State/Zipcode | Phone Number | | Organization | | | | + +---------+ + + | EXTERNAL LAB | | | | + +---------+ + + TSH (10/18/2015 12:00 AM PDT) + +-------+ + + + | Component | Value | Ref Range | Performed | Pathologist | | | | | At | Signature | + +-------+ + + + | TSH | 1.40 | 0.45 - 5.10 | EXTERNAL | | | | | uIU/mL | LAB | | + +-------+ + + + + + | Specimen | + + | Blood specimen | | (specimen) | + + + +---------+ + + | Performing | Address | City/State/Zipcode | Phone Number | | Organization | | | | + +---------+ + + | EXTERNAL LAB | | | | + +---------+ + + T4, Free (10/18/2015 12:00 AM PDT) + +-------+ + + + | Component | Value | Ref Range | Performed | Pathologist | | | | | At | Signature | + +-------+ + + + | FREE T4 | 0.79 | 0.7 - 1.5 mg/dL | EXTERNAL | | | (REF) | | | LAB | | + +-------+ + + + + + | Specimen | + + | Blood specimen | | (specimen) | + + + +---------+ + + | Performing | Address | City/State/Zipcode | Phone Number | | Organization | | | | + +---------+ + + | EXTERNAL LAB | | | | + +---------+ + + Hepatitis C, Fibrosure Panel (10/04/2015 12:00 AM PDT) + + + + + + | Component | Value | Ref Range | Performed | Pathologist | | | | | At | Signature | + + + + + + | HCV | 0.41 (A) | 0.00 - 0.21 | EXTERNAL | | | FibroSURE | | | LAB | | | Results | | | | | + + + + + + | FIBROSURE | F1-F2 | | EXTERNAL | | | STAGE | | | LAB | | + + + + + + | Necroinflam | 0.24 (A) | 0.00 - 0.17 | EXTERNAL | | | mat | | | LAB | | | Activity | | | | | | Score | | | | | + + + + + + | Necroinflam | A0-A1+ | | EXTERNAL | | | mat | | | LAB | | | Activity | | | | | | Grade | | | | | + + + + + + | Alpha | 316 (A) | 110 - 276 | EXTERNAL | | | 2-Macroglob | | | LAB | | | Peace yuen | | | | | + + + + + + | Haptoglobin | 100 | 34 - 200 | EXTERNAL | | | | | | LAB | | + + + + + + | Apolipoprot | 162 | 110 - 205 | EXTERNAL | | | ein A-1 | | | LAB | | + + + + + + | Bilirubin, | 0.2 | 0.0 - 1.2 mg/dL | EXTERNAL | | | Total | | | LAB | | + + + + + + | Gamma | 209 (A) | 0 - 60 | EXTERNAL | | | Glutamyl | | | LAB | | | Transferase | | | | | + + + + + + | ALT (SGPT) | 39 | 0 - 40 | EXTERNAL | | | P5P | | | LAB | | + + + + + + + + | Specimen | + + | Blood specimen | | (specimen) | + + + + + | Impressions | Performed At | + + + | Immunofixation, Serum .Gamma | EXTERNAL LAB | | Result: 1.8 g/dL Ref Range: | | | 0.6-1.5 [place] .[facility] | | | Result: 3.55 mg/dL Ref | | | Range: 0.33-1.94 .[facility] | | | Result: 2.28 mg/dL Ref Range: 0.57-2.63 | | | .[place] Ratio Result: 1.56 | | | Ref Range: 0.26-1.65 Prothrombin Time | | | .PT, Patient | | | Result: 12.9 Ref Range: 12.0-14.2 | | | .INR | | | Result: 1.0 Ref Range: 0.9-1.1 | | + + + + +---------+ + + | Performing | Address | City/State/Zipcode | Phone Number | | Organization | | | | + +---------+ + + | EXTERNAL LAB | | | | + +---------+ + + External Lab: CBC (10/04/2015 12:00 AM PDT) + + + + + + | Component | Value | Ref Range | Performed | Pathologist | | | | | At | Signature | + + + + + + | WBC | 7.7 | 4.0 - 11.0 10 | EXTERNAL | | | | | | LAB | | + + + + + + | Red Blood | 4.64 | 3.8 - 5.2 10 | EXTERNAL | | | Cells | | | LAB | | | Counted | | | | | + + + + + + | Hemoglobin | 14.3 | 12 - 16 g/dL | EXTERNAL | | | | | | LAB | | + + + + + + | Hematocrit, | 42.1 | 35 - 45 % | EXTERNAL | | | POC | | | LAB | | + + + + + + | MCV | 90.7 | 81 - 99 fL | EXTERNAL | | | | | | LAB | | + + + + + + | MCH | 30.8 | 27 - 33 pg | EXTERNAL | | | | | | LAB | | + + + + + + | MCHC | 34.0 | 30 - 36 g/dL | EXTERNAL | | | | | | LAB | | + + + + + + | Platelet | 238 | 140 - 440 K/ L | EXTERNAL | | | Count | | | LAB | | | Plasma | | | | | + + + + + + | RDW-CV | 14.2 | 10.5 - 15 % | EXTERNAL | | | | [...] + + + | % Segmented | 68.9 (A) | 37 - 67 % | EXTERNAL | | | | | | LAB | | | Neutrophils | | | | | + + + + + + | % | 24.2 | 24 - 44 % | EXTERNAL | | | Lymphocytes | | | LAB | | + + + + + + | % Monocytes | | % | EXTERNAL | | | | | | LAB | | + + + + + + | % | | % | EXTERNAL | | | Eosinophils | | | LAB | | + + + + + + | % Basophils | | % | EXTERNAL | | | [...] + +---------+ + + Comprehensive Metabolic Panel (10/04/2015 12:00 AM PDT) + +-------+ + + + | Component | Value | Ref Range | Performed | Pathologist | | | | | At | Signature | + +-------+ + + + | Glucose, | 87 | 65 - 99 mg/dL | EXTERNAL | | | Fasting | | | LAB | | + +-------+ + + + | BUN | 25 | 8 - 25 mg/dL | EXTERNAL | | | | | | LAB | | + +-------+ + + + | Creatinine | 0.90 | 0.50 - 1.00 | EXTERNAL | | | | | mg/dL | LAB | | + +-------+ + + + | BUN/Creatin | 27.8 | 11 - 35 | EXTERNAL | | | ine Ratio | | | LAB | | + +-------+ + + + | Calcium | 10.2 | 8.5 - 10.2 | EXTERNAL | | | | | mg/dL | LAB | | + +-------+ + + + | Protein, | 7.6 | 6.2 - 8.2 g/dL | EXTERNAL | | | Total | | | LAB | | + +-------+ + + + | Albumin | 3.9 | 3.5 - 4.7 | EXTERNAL | | | | | | LAB | | + +-------+ + + + | Globulin | | | EXTERNAL | | | | | | LAB | | + +-------+ + + + | A/G Ratio | | | EXTERNAL | | | | | | LAB | | + +-------+ + + + | Bilirubin | 0.3 | 0.1 - 1.5 mg/dL | EXTERNAL | | | Total | | | LAB | | + +-------+ + + + | ALP, | 100 | 35 - 115 | EXTERNAL | | | External | | | LAB | | + +-------+ + + + | ALT | 47 | 10 - 65 U/L | EXTERNAL | | | | | | LAB | | + +-------+ + + + | AST | 26 | 10 - 45 U/L | EXTERNAL | | | | | | LAB | | + +-------+ + + + | Na | 141 | 135 - 145 | EXTERNAL | | | | | mmol/L | LAB | | + +-------+ + + + | K | 4.3 | 3.5 - 5.3 | EXTERNAL | | | | | mmol/L | LAB | | + +-------+ + + + | Cl | 109 | 99 - 109 mmol/L | EXTERNAL | | | | | | LAB | | + +-------+ + + + | CO2 | 27 | 22 - 31 mmol/L | EXTERNAL | | | | | | LAB | | + +-------+ + + + | Anion Gap | 5 | 5 - 16 mmol/L | EXTERNAL | | | | | | LAB | | + +-------+ + + + | Estimated | 60 | mg/dL | EXTERNAL | | | GFR | | | LAB | | + +-------+ + [...]
--- OUTSIDE RECORDS SUMMARY | ~2019-10-27 | XMS | Encounter Summary ---
Demographics + + + | Address | [address] | | | [place] [address] | + + + | Home Phone | | + + + | Preferred Language | Unknown | + + + | Marital Status | Single | + + + | Rastafarian Affiliation | 1009 | + + + | Race | Unknown | + + + | Ethnic Group | Unknown | + + + Author + + + | Author | [facility] | | | and [place] | + + + | Organization | [facility] | | | and [...] Team Providers + +------+ + | Care Human Service Worker Name | Role | Phone | [...] Provider Unknown | | | | | [place], [place] | [phone] | | | | | [address] | | | | | | [phone] | | | +--------+ + + + [...] 2 puffs into | | 0 | 07//20 | | | albuterol-ipratropiu | the lungs [...] 1 tablet by | | 0 | //20 | | | (PHENERGAN) 25 mg | [...] | (DESYREL) 100 mg | nightly. Take /2-2 | | | | | | tablet [...] [address] | | | | | | [address] | | | | | | [place] [address] | | | | | | [phone] | | | | | | | [...] | + + | Nikita Hearn - 01/15/2019 7:22 PM PDT This is a non-reportable procedure | | without a radiologist report and isused for image storage only | + + documented in this encounter Visit Diagnoses + + | Diagnosis | + + | Pain Generalized pain | + + documented in this encounter"
--- OUTSIDE RECORDS SUMMARY | ~2019-10-27 | XMS | Encounter Summary ---
Demographics + + + | Address | [address] | | | [place] [address] | + + + | Home Phone | | + + + | Preferred Language | Unknown | + + + | Marital Status | Single | + + + | Episcopalian Affiliation | 1009 | + + + | Race | Unknown | + + + | Ethnic Group | Unknown | + + + Author + + + | Author | [facility] | | | and [place] | + + + | Organization | [facility] | | | and [...] Team Providers + +------+ + | Care Terminal Gauger Supervisor Name | Role | Phone | [...] | | | | EMERGENCY CENTER | [place] [address] | | | | | [address] | [phone] | | | | | [place], [place] | | | | | | [address] | | | | | | [phone] | | | +--------+ + + + [...] | | | | | | [place] [address] | | | | | | [phone] | | | | | | | [...] + + + | NOHEMI ESPITIA XR FOOT RIGHT 07/13/2011 12:54 PM HISTORY: [...] + + | Dhiraj, Rad Conversion - 01/25/2019 8:08 AM PDT NOHEMI ESPITIAXR FOOT RIGHT07/13/2011 | | 12:54 PM HISTORY:51 [...]
--- OUTSIDE RECORDS SUMMARY | ~2019-10-27 | XMS | Encounter Summary ---
Demographics + + + | Address | [address] | | | [place] [address] | + + + | Home Phone | | + + + | Preferred Language | Unknown | + + + | Marital Status | Single | + + + | Holiness Affiliation | 1009 | + + + | Race | Unknown | + + + | Ethnic Group | Unknown | + + + Author + + + | Author | [facility] | | | and [place] | + + + | Organization | [facility] | | | and [...] Providers + +------+ + | Care Supervisor [employer] Name | Role | Phone | + [...] | | | | EMERGENCY CENTER | [place] [address] | | | | | [address] | [phone] | | | | | [place], [place] | | | | | | [address] | | | | | | [phone] | | | +--------+ + + + [...] | | | | | | [place] [address] | | | | | | [phone] | | | | | | | [...]
--- OUTSIDE RECORDS SUMMARY | ~2019-10-27 | XMS | Encounter Summary ---
Demographics + + + | Address | [address] | | | [place] [address] | + + + | Home Phone | | + + + | Preferred Language | Unknown | + + + | Marital Status | Single | + + + | Faith Affiliation | 1009 | + + + | Race | Unknown | + + + | Ethnic Group | Unknown | + + + Author + + + | Author | [facility] | | | and [place] | + + + | Organization | [facility] | | | and [place] [...] Team Providers + +------+ + | Care Boots And Shoes Supervisor Name | Role | Phone | + +------+ + | Hayden Acevedo MD | PCP | | + +------+ + Encounter Details +--------+ + + + + | Date | Type | Department | Care Team | Description | +--------+ + + + + | 10/10/ | Emergency | [facility] | Mikayla Stahl, | COPD exacerbation | | 2013 | | MEDICAL CENTER | [facility] [address] | ([facility]); Arthritis; | | | | EMERGENCY CENTER | [place] [address] | Ankle pain, right; | | | | [address] | [phone] | Tobacco abuse | | | | [place], [place] | | | | | | [address] | | | | | | [phone] | | | +--------+ + + + [...] | | | | | [place] [address] | | | | | | [phone] | | | | | | | | +--------+---------+ + + + documented as of this encounter Procedures + +--------+ + + + | Procedure Name | Priori | Date/Time | Associated Diagnosis | Comments | | | ty | | | | + +--------+ + + + | XR CHEST 2 VIEWS | Routin | 10/10/2013 | | Results for this | | | e | 8:30 PM | | procedure are in the | | | | PDT | | results section. | + +--------+ + + + documented in this encounter Results XR Chest 2 Vws (10/10/2013 8:30 PM PDT) + + | Specimen | + + | | + + + + + | Impressions | Performed At | + + + | Can't exclude a left basilar infiltrate. Subtle bronchitis, mild | | | recurrent edema or pneumonitis are differential considerations. | | | | | + + + + + + | Narrative | Performed At | + + + | History: 53 year-old female with shortness of breath. Technique: | | | Frontal and lateral, 2 view radiographic examination of the chest. 18 | | | September 2013 prior study for comparison. Findings: | | | Cardiomediastinum is normal. Lungs are symmetrically inflated | | | without pneumothorax or effusion, there is some improvement of the | | | diffuse mid lung field and basilar patchy disease seen earlier. | | | Bones and soft tissues are normal for age. | | + + + + + | Procedure Note | + + | Nikita Hearn Conversion - 01/18/2019 1:22 AM PDT History: 53 year-old female with | | shortness of breath. Technique: Frontal and lateral, 2 view radiographic examination of | | the chest. 19 September 2013 prior study for comparison. Findings: Cardiomediastinum is | | normal. Lungs are symmetrically inflated without pneumothorax or effusion, there is some | | improvement of the diffuse mid lung field and basilar patchy disease seen earlier. | | Bones and soft tissues are normal for age. IMPRESSION: Can't exclude a left basilar | | infiltrate. Subtle bronchitis, mild recurrent edema or pneumonitis are differential | | considerations. | |Bones and soft tissues are normal for age. | | | |IMPRESSION: | |Can't exclude a left basilar infiltrate. Subtle bronchitis, mild recurrent edema or pneumon itis are differential considerations. | | | | | + + documented in this encounter Visit Diagnoses + + | Diagnosis | + + | COPD exacerbation (HCC) Obstructive chronic bronchitis with exacerbation | + + | Arthritis Arthropathy, unspecified, site unspecified | + + | Ankle pain, right Pain in joint, ankle and foot | + + | Tobacco abuse Tobacco use disorder | + + documented in this encounter"
--- OUTSIDE RECORDS SUMMARY | ~2019-10-27 | XMS | Encounter Summary ---
Demographics + + + | Address | [address] | | | [place] [address] | + + + | Home Phone | | + + + | Preferred Language | Unknown | + + + | Marital Status | Single | + + + | Mormon Affiliation | 1009 | + + + | Race | Unknown | + + + | Ethnic Group | Unknown | + + + Author + + + | Author | [facility] | | | and [place] | + + + | Organization | [facility] | | | and [place] | [...] Team Providers + +------+ + | Care Police Crime Scene Technician Name | Role | Phone | [...] PHYSIATRY [address] | MD [address] | | | | | [address] | [place], [place] | | | | | [place], [place] | [address] | | | | | [address] | | | | | | [phone] | | | +--------+ + + + [...] | | | | | [place] [address] | | | | | | [phone] | | | | | | | | +--------+---------+ + + + documented as of this encounter Visit [facility]"
--- OUTSIDE RECORDS SUMMARY | ~2019-10-27 | XMS | Encounter Summary ---
Demographics + + + | Address | [address] | | | [place] [address] | + + + | Home Phone [...] + | Author | [facility] | | | and [place] | + + + | Organization | [facility] | | | and [...] Reason for Referral Evaluate & Treat (Routine) +--------+ + + + + + | Status | Reason | Specialty | Diagnoses / | Referred By | Referred To | | | | | Procedures | Contact | Contact | +--------+ + + + + + | Closed | Specialty | Pain Medicine | Diagnoses | Terry, | Jeet, | | | Services | | Cervicalgia | Henri Joseph MD | Chele Kingsley, | | | Required | | Cervical | [address] | [address] | | | | | radiculopath | [address] | [address] | | | | | y Facet | [place], | [place], [place] | | | | | arthritis of | [place] [address] | [address] | | | | | cervical | Phone: | Phone: | | | | | region | [phone] | [phone] | | | | | Chronic | Fax: | Fax: | | | | | bilateral | [phone] | [phone] | | | | | low back | | | | | | | pain with | | | | | | | bilateral | | | | | | | sciatica | | | +--------+ + + + + + Evaluate & Treat (Routine) +--------+ + + + + + | Status | Reason | Specialty | Diagnoses / | Referred By | Referred To | | | | | Procedures | Contact | Contact | +--------+ + + + + + | Closed | Specialty | Physical | Diagnoses | Terry, | Henri Stewart | | | Services | Medicine and | Cervicalgia | Henri Joseph MD | Elizabeth Joseph MD [address] | | | Required | Rehabilitatio | Cervical | [address] | | | | n | radiculopath | [address] | [place], | | | | | y Left arm | [place], | [place] [address] | | | | | numbness | [place] [address] | Phone: | | | | | Left arm | Phone: | [phone] | | | | | weakness | [phone] | Fax: | | | | | Procedures | Fax: | [phone] | | | | | DOS 01/04/16 | [phone] | | +--------+ + + + + + Evaluate & Treat (Routine) +--------+ + + + + + | Status | Reason | Specialty | Diagnoses / | Referred By | Referred To | | | | | Procedures | Contact | Contact | +--------+ + + + + + | Closed | Specialty | Physical | Diagnoses | Stewart, | [facility] | | | Services | Therapy | Cervicalgia | Henri Joseph MD | LEIA | | | Required | | Cervical | [address] | HOSPITAL | | | | | radiculopath | [address] | [address] | | | | | y Left arm | [place], | AVE | | | | | numbness | [place] [address] | [place], [place] | | | | | Left arm | Phone: | [phone] | | | | | weakness | [phone] | Phone: | | | | | Facet | Fax: | [phone] | | | | | arthritis of | [phone] | Fax: | | | | | cervical | | [phone] | | | | | region | | | | | | | Chronic | | | | | | | bilateral | | | | | | | low back | | | | | | | pain with | | | | | | | bilateral | | | | | | | sciatica | | | +--------+ + + + + + Reason for Visit + + + | Reason | Comments | + + + | Back Pain | Mid and lower back radiating into Bilateral legs | + + + | Neck Pain | Radiating down into left shoulder | + + + | Knee Pain | Right sided, weakness | + + + Evaluate & Treat (Routine) +--------+--------+ + + + + | Status | Reason | Specialty | Diagnoses / | Referred By | Referred To | | | | | Procedures | Contact | Contact | +--------+--------+ + + + + | Closed | | Physical | Diagnoses | Maico, | Henri Stewart | | | | Medicine and | Chronic | Naren Hilton, | Elizabeth Joseph MD [address] | | | | Rehabilitatio | neck pain | PA-C [address] | [address] | | | | n | Low back | [place] | [place], | | | | | pain Mid | WAY | [place] [address] | | | | | back pain | [place], | Phone: | | | | | | [place] [address] | [phone] | | | | | | Phone: | Fax: | | | | | | [phone] | [phone] | | | | | | Fax: | | | | | | | [phone] | | +--------+--------+ + + + + Encounter Details +--------+---------+ + + + | Date | Type | Department | Care Team | Description | +--------+---------+ + + + | 12/14/ | Office | [facility] | Henri Stewart, | Cervicalgia (Primary | | 2016 | Visit | PHYSIATRY [address] | MD [address] | Dx); Cervical | | | | [address] | [place] | radiculopathy; Left | | | | [place] | [address] | arm numbness; Left | | | | [address] | | arm weakness; Facet | | | | [phone] | | arthritis of | | | | | | cervical region | | | | | | ([facility]); Chronic | | | | | | bilateral low back | | | | | | pain with bilateral | | | | | | sciatica; Tobacco | | | | | | dependence; | | | | | | Depression, | | | | | | unspecified | | | | | | depression type; | | | | | | Bilateral leg | | | | | | weakness | +--------+---------+ + + + Social History + +-------+ [...] + + documented as of this encounter Last Filed Vital Signs + + + + + | Vital Sign | Reading | Time Taken | Comments | + + + + + | Blood Pressure | 128/80 | 12/15/2015 3:27 PM | | | | | PDT | | + + + + + | Pulse | 84 | 12/15/2015 3:27 PM | | | | | PDT | | + + + + + | Temperature | - | - | | + + + + + | Respiratory Rate | 16 | 12/15/2015 3:27 PM | | | | | PDT | | + + + + + | Oxygen Saturation | - | - | | + + + + + | Inhaled Oxygen | - | - | | | Concentration | | | | + + + + + | Weight | 108.1 kg (238 lb 6.4 | 12/15/2015 3:27 PM | | | | oz) | PDT | | + + + + + | Height | - | - | | + + + + + | Body Mass Index | - | - | | + + + + + documented in this encounter Patient Instructions Patient Instructions Henri Stewart MD - 12/15/2015 4:31 PM PDTIt is recommended that yo u stop smoking as discussed during today's appointment. Increase Cymbalta to 60 mg with 30 mg at bedtime. Please take the prescribed medication Gabapentin. Taper up the dose of the medication as di rected. Stop tapering up the medication at the lowest effective dose. If you have side eff ects to the medication, reduce the dose of the medication to the last dose that you were abl e to tolerate without side effects. Physical therapy has been prescribed. Please participate in physical therapy. If you have not be contacted for an appointment with physical therapy within one week, please contact [facility]. Once you have completed physical therapy please continue the home exercise progr am as outline by physical therapy, indefinitely. Please attend the injection appointment with Ramon Mijares MD. If his office has not co ntacted you within one week, to schedule the injection, please contact my clinic. Your inje ction will be performed at [facility]. Please take note of weather your pain is significantly reduced in the hours immediately following the injecti on. Return to the clinic for nerve conduction study of the left upper extremity. A pain clinic consult has been requested at [facility]. documented in this encounter Progress Notes Henri Stewart MD - 12/15/2015 4:38 PM PDTThis office note has been dictated. Report Confirmation# [id number] signed by Henri Stewart MD at 12/15/2015 5:22 PM PDTdocumented in this encounter Plan of Treatment +--------+---------+ + + + | Date | Type | Specialty | Care Team | Description | +--------+---------+ + + + | 10/30/ | Office | Neurosurgery | Jose Gonzalez DO | | | 2019 | Visit | | [address] | | | | | | [place] [address] | | | | | | [phone] | | | | | | | | +--------+---------+ + + + + + +--------+ + + | Name | Type | Priori | Associated Diagnoses | Order Schedule | | | | ty | | | + + +--------+ + + | External Ambulatory | Outpatient | Routin | Cervicalgia | Ordered: 12/15/2015 | | referral to Physical | Referral | e | Cervical | | | Therapy | | | radiculopathy Left | | | | | | arm numbness Left | | | | | | arm weakness Facet | | | | | | arthritis of | | | | | | cervical region | | | | | | ([facility]) Chronic | | | | | | bilateral low back | | | | | | pain with bilateral | | | | | | sciatica | | + + +--------+ + + | Ambulatory referral | Outpatient | Routin | Cervicalgia | Ordered: 12/15/2015 | | to Physical Medicine | Referral | e | Cervical | | | Rehab | | | radiculopathy Left | | | | | | arm numbness Left | | | | | | arm weakness | | + + +--------+ + + | Pain Clinic, | Outpatient | Routin | Cervicalgia | Ordered: 12/15/2015 | | External - AMB | Referral | e | Cervical | | | Referral | | | radiculopathy Facet | | | | | | arthritis of | | | | | | cervical region | | | | | | ([facility]) Chronic | | | | | | bilateral low back | | | | | | pain with bilateral | | | | | | sciatica | | + + +--------+ + + documented as of this encounter Visit Diagnoses + + | Diagnosis | + + | Cervicalgia - Primary | + + | Cervical radiculopathy Brachial neuritis or radiculitis nos | + + | Left arm numbness Disturbance of skin sensation | + + | Left arm weakness Other musculoskeletal symptoms referable to limbs | + + | Facet arthritis of cervical region Cervical spondylosis without myelopathy | + + | Chronic bilateral low back pain with bilateral sciatica | + + | Tobacco dependence Tobacco use disorder | + + | Depression, unspecified depression type | + + | Bilateral leg weakness Other musculoskeletal symptoms referable to limbs | + + documented in this encounter"
--- OUTSIDE RECORDS SUMMARY | ~2019-10-27 | XMS | Encounter Summary ---
Demographics + + + | Address | [address] | | | [place] [address] | + + + | Home Phone | | + + + | Preferred Language | Unknown | + + + | Marital Status | Single | + + + | Zoroastrianism Affiliation | [id number] | + + + | Race | Unknown | + + + | Ethnic Group | Unknown | + + + Author + + + | Author | [facility] | | | and [place] | + + + | Organization | [facility] | | | and [...] Team Providers + +------+ + | Care Assembled Wood Products Repairer Name | Role | Phone | + +------+ + | Hayden Acevedo MD | PCP | | + +------+ + Encounter Details +--------+ + + + + | Date | Type | Department | Care Team | Description | +--------+ + + + + | 01/10/ | Hospital | [facility] | Sveta Calderon, | Acute renal failure, | | 2015 - | Encounter | [facility] | [address] | unspecified acute | | | | CARE [address]LO[address] | [place] [address] | renal failure type | | 01/13/ | | [address] | [phone] | (HCC); Essential | | 2014 | | [place], [place] | | hypertension; | | | | [id number] | | Leukocytosis, | | | | [phone] | | unspecified; | | | | | | Metabolic acidosis; | | | | | | Hematemesis; | | | | | | Hepatitis C virus | | | | | | infection without | | | | | | hepatic coma, | | | | | | unspecified | | | | | | chronicity; Moderate | | | | | | dehydration; | | | | | | Abnormal LFTs; Acute | | | | | | GI bleeding; COPD | | | | | | (chronic obstructive | | | | | | pulmonary disease) | | | | | | (HCC); Epigastric | | | | | | abdominal pain; | | | | | | Gastroesophageal | | | | | | reflux disease with | | | | | | esophagitis | +--------+ + + + + Social [...] documented as of this encounter Discharge Summaries Tico Suarez MD - 01/13/2015 2:39 PM PDTFormatting of this note might be differe nt from the original. Discharge Summaries by Tico Suarez MD at 01/13/15 1439 Author: Tico Suarez MD Service: Hospitalist Author Type: Physician Filed: 01/13/152054 Date of Service: 01/13/151438 Status: Signed Gas Well Drilling Manager: Tico Suarez MD (Physician) Related Notes: Original Note by Tico Suarez MD (Physician) filed at 01/13/15 14 55 [facility] Service: Hospitalist Physician Discharge Summary Pt: Nohemi Espitia AGE/SEX: 54 y.o. female ROOM: [facility]/6608-1 PCP: Naren Nina (General) : 1960 Admit date: 01/10/2015 Discharge date and time: 01/13/15 Admitting Physician: Sveta Calderon MD Discharge Physician: Tico Suarez MD Consults: Dr. Mas Primary Discharge Diagnoses: Principal Problem: Acute GI bleeding Active Problems: Bipolar affective (HCC) HTN (hypertension) COPD (chronic obstructive pulmonary disease) (HCC) Spinal stenosis, lumbar GERD (gastroesophageal reflux disease) Hematemesis Rectal bleeding Epigastric abdominal pain NSAID induced gastritis ARF (acute renal failure) (HCC) Abnormal LFTs Leukocytosis, unspecified Metabolic acidosis CHI (obstructive sleep apnea) Chronic hepatitis C without hepatic coma (HCC) Resolved Problems: * No resolved hospital problems. * Secondary Discharge Diagnoses: Ischemic colitis Discharged Condition: stable Significant Diagnostic Studies: Xr Acute Abdominal Series 01/10/2015 1. Nonspecific paucity of small bowel gas. No definite findings to suggest obst ruction. 2. Other findings, as above 1 0:01 AM Ultrasound Abdomen Complete 01/10/2015 1. Very limited study due to body habitus and bowel gas. 2. The gallbladder is surgically absent. 3. Kidneys, spleen, liver and IVC appear grossly normal in size but are poorly visualized. 4. Common bile duct and pancreas were not visualized. 5. Proximal aort a normal in caliber. Mid to distal portion could not be visualized. Ultrasound Bladder 01/10/2015 FINDINGS/IMPRESSION: The bladder has a prevoid volume of 295 mL and a post void volume of 89 mL which is greater than expected for a 54-year-old female. 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 No bladder mass or bladder stone is seen. Bilateral ureteral jets are noted. Pathology: SPECIMEN SOURCE: A. DUODENAL BIOPSY B. GASTRIC- BIOPSY C. TRANSVERSE COLON BIOPSY CLINICAL HISTORY: 01/11/2015 at 1806 H. No clinical history given. MICROSCOPIC DESCRIPTION: A-C. Histologic sections of all submitted blocks are examined by light microscopy. These fi ndings, together with the gross examination, support the pathologic diagnosis. FINAL PATHOLOGIC DIAGNOSIS: A. Duodenum, biopsies: - Unremarkable duodenal mucosa with focally prominent Renu's glands. - Negative for active inflammation or significant villous blunting. B. Stomach, biopsies: - Benign body type gastric mucosa with mild vascular congestion. - Negative for significant inflammatory change. C. Transverse colon, biopsies: - Acute colitis with mucosal ulceration. (See comment). - Negative for granulomas or dysplasia. COMMENT: Additional clinical history is not provided. In the appropriate clinical setting, the histo logic changes are suggestive of ischemic colitis. Diagnostic considerations also include inf ectious colitis. Correlation with clinical symptoms is indicated. COLONOSCOPY:-diverticulosis, mild in degree, involving the sigmoid -hemorrhoids (internal), Moderate in size -mucosal abnormality, characterized by ulceration, localized in distribution,moderate in de greeinvolving the ascending colon, the splenic flexure and the descending colon; biopsies we re obtained EGD:Grade II erosive esophagitis -mild eryhthema gastropathy, s/p biopsy. -Normal duodenal mucosa, s/p biopsy HPI and Hospital Course: Ms. Espitia is a 54-year-old female who has a past medical history of hepatitis C, obstruct lizet sleep apnea syndrome, chronic smoker, COPD, GERD, chronic back pain, bipolar disorder, h ypertension, who presented to the emergency department with an episode of hematemesis. Vivienne alvarado also developed abdominal pain and also had a large bowel movement containing small piece s of bright red blood and a few clots. In the emergency department, her white count was 17,0 00 with 77% neutrophils. Hemoglobin was 12 with hematocrit of 37. INR and platelet count wer e normal. She had elevation of ALT to 315 and AST to 380. Creatinine was 2.6. HOSPITAL COURSE She was admitted to the hospital and serial H H's were done. She was seen by Dr. Mas who p erformed EGD and colonoscopy. EGD showed grade 2 esophagitis and mild erythema with gastrop athy. The duodenum was normal. Colonoscopy showed diverticulosis involving the sigmoid colon , hemorrhoids, multiple ulcerations of ascending colon, splenic flexure and descending colon . This was consistent with either NSAID-induced colitis or ischemic colonitis. Patient takes ibuprofen regularly for low back pain. She also smokes. Pathology on colonic biopsies showe d acute colitis with mucosal ulcerations but was negative for granuloma or dysplasia. Mark graves slowly improved with resolution of abdominal pain, hematemesis or hematochezia. Creatinine normalized with IV fluids. As the patient is much improved now, hence she can be discharged home. She is advised to re frain from taking any nonsteroidal antiinflammatory agents and is also counseled on smoking cessation. She should drink plenty of fluids. Patient should follow with Dr. Mas on an outp atient basis to further discuss pathology findings with her. She is on Prilosec at home that she will continue to take. She also needs treatment for chronic hepatitis C and she can fol low up with infectious disease specialist. Discharge Vitals: Filed Vitals: 01/13/15 0015 01/13/15 0422 01/13/15 0739 01/13/15 1207 BP: 106/65 122/64 135/75 140/72 Pulse: 80 74 77 83 Temp: 97.5 F (36.4 C) 97.7 F (36.5 C) 97.7 F (36.5 C) 98.3 F (36.8 C) TempSrc: Oral Oral Oral Oral Resp: 20 19 20 20 Height: Weight: SpO2: 96% 95% 95% 95% Discharge Exam: Constitutional: Alert and oriented to person, place, and time. Appears well-developed and w ell-nourished. Cardiovascular: Normal rate, regular rhythm, normal heart sounds with S1 and S2 and intact distal pulses. Exam reveals no gallop and no friction rub. No murmur heard. Pulmonary/Chest: Effort normal and breath sounds normal. No stridor. No respiratory distres s. no wheezes. no rales. exhibits no tenderness. Abdominal: Soft. Bowel sounds are normal. exhibits no distension and no mass. There is no t enderness. There is no rebound and no guarding. Musculoskeletal: Normal range of motion.exhibits no tenderness. exhibits no edema. Neurological: Alert and oriented to person, place, and time. Has normal reflexes. display s normal reflexes. No cranial nerve deficit. Exhibits normal muscle tone. Coordination norm al. Skin: Skin is warm and dry. No rash noted. No erythema. No pallor. Psychiatric: Has a normal mood and affect. Behavior is normal. Judgment normal. LABS: Recent Labs Lab 01/13/15 1138 01/13/15 0535 01/12/15 2343 01/12/15 0405 01/11/15 0740 WBC -- 4.59 -- -- 5.51 -- 11.42* HGB 9.8* 9.5* 9.8* < > 9.9* < > 10.6* HCT 30.2* 29.9* 29.8* < > 30.6* < > 33.0* PLT -- 172 -- -- 158 -- 184 NEUTOPHILPCT -- 45.95 -- -- 56.56 -- 68.68 MONOPCT -- 8.27 -- -- 8.64 -- 8.60 < > = values in this interval not displayed. Recent Labs Lab 01/13/15 0535 01/12/15 0405 01/11/15 0740 NA 138 138 141 K 3.9 4.0 3.7 CL 116* 117* 112* CO2 24 18* 22* BUN 7* 8 18 CREATININE 0.58 0.57 0.97 PROT 5.8* 5.9* 7.2 BILITOT 0.2 0.3 1.0 ALT 115* 135* 236* AST 96* 160* 311* Invalid input(s): LABALBU Recent Labs Lab 01/13/15 0535 01/12/15 0405 01/11/15 0740 MG 1.6* 1.7 1.7 Recent Labs Lab 01/10/15 0903 AMYLASE 54 No results for input(s): PHART, PO2ART, FRK1BZV, S6GULOTQ, BEART in the last 168 hours. Recent Labs Lab 01/11/15 0740 01/10/15 0903 INR 1.0 1.0 No results for input(s): CKTOTAL, TROPONINI, TROPONINT, CKMBINDEX in the last 168 hours. Disposition: Home or Self Care Patient Instructions: Medication List CONTINUE taking these medications benzonatate 100 MG capsule QTY: 30 capsule Refills: 2 Commonly known as: TESSALON Take 1 capsule by mouth 3 (three) times daily as needed for Cough. buPROPion 150 MG 24 hr tablet Refills: 0 Commonly known as: WELLBUTRIN XL FLUoxetine 40 MG capsule QTY: 90 capsule Refills: 3 For diagnoses: Depression Commonly known as: PROzac Take 1 capsule by mouth daily. * gabapentin 100 MG capsule QTY: 60 capsule Refills: 0 Commonly known as: NEURONTIN take 1 capsule by mouth twice a day * gabapentin 300 MG capsule QTY: 60 capsule Refills: 0 Doctor's comments: Used in combination with daytime 100 mg caps. Let patient know this rea l not be prescribed again without an office appt. Commonly known as: NEURONTIN take 2 capsules by mouth every evening ipratropium-albuterol 20-100 MCG/ACT inhaler QTY: 2 each Refills: 11 Commonly known as: COMBIVENT RESPIMAT Inhale 2 puffs into the lungs every 6 (six) hours as needed for Wheezing. levothyroxine 25 MCG tablet QTY: 90 tablet Refills: 3 For diagnoses: Hypothyroid Commonly known as: SYNTHROID Take 1 tablet by mouth every morning before breakfast. lisinopril 10 MG tablet QTY: 90 tablet Refills: 3 For diagnoses: Htn (Hypertension) Commonly known as: ZESTRIL Take 1 tablet by mouth daily. loratadine 10 MG tablet QTY: 90 tablet Refills: 3 Commonly known as: CLARITIN Take 1 tablet by mouth daily. LORazepam 1 MG tablet QTY: 50 tablet Refills: 0 For diagnoses: Anxiety Commonly known as: ATIVAN Take 1 tablet by mouth every 6 (six) hours as needed for Anxiety. metaxalone 800 MG tablet QTY: 30 tablet Refills: 1 For diagnoses: Muscle Spasm Of Back Commonly known as: SKELAXIN Take 1 tablet by mouth 3 (three) times daily as needed for Pain. OLANZapine 10 MG tablet QTY: 90 tablet Refills: 3 For diagnoses: Mood Disorder (Hcc) Commonly known as: ZyPREXA Take 1 tablet by mouth nightly. omeprazole 20 MG capsule Refills: 0 Commonly known as: PRILOSEC promethazine 25 MG tablet QTY: 30 tablet Refills: 0 For diagnoses: Nausea Commonly known as: PHENERGAN Take 1 tablet by mouth every 6 (six) hours as needed for Nausea. * Notice: This list has 2 medication(s) that are the same as other medications prescribed for you. Read the directions carefully, and ask your doctor or other care provider to revie w them with you. STOP taking these medications ergocalciferol 61054 UNITS capsule Commonly known as: DRISDOL famotidine 20 MG tablet Commonly known as: PEPCID ribavirin 200 MG tablet Commonly known as: COPEGUS Activity: activity as tolerated Diet: regular diet Wound Care: not applicable Total time of discharge: 35 minutes. This included talking to patient, examining patient, d iscussing outpatient plan of care, reconciling home medications and dictating discharge summ iveth. Follow-up with PCP in 1 week. Signed: Tico Suarez MD 01/13/2015 2:39 PM documented in this encounter Medications at Time of Discharge [...] 1 tablet by | | 0 | 03/25/20 | | | (PHENERGAN) 25 mg | mouth every 6 (six) | | | 14 | | | tablet | hours as needed for | | | | | | | Nausea. | | | | | + + + +---------+ + + documented as of this encounter Progress Notes Jackson Mas - 01/12/2015 8:48 PM PDT Progress Notes by Jackson Mas MD at 01/12/152047 Author: Jackson Mas MD Service: Gastroenterology Author Type: Physician Filed: 01/12/152053 Date of Service: 01/12/152047 Status: Signed Gas Well Drilling Manager: Jackson Mas MD (Physician) [facility] Service: Gastroenterology Progress Note Hospital Day: LOS: 2 days Post-Op Day: 1 Day Post-Op SUBJECTIVE Patient Summary: Events Overnight: Still had some rectal bleeding, BRBPR and diarrhea improved. Abdomi nal pain still there but less than yesterday. Scheduled Medications buPROPion 150 mg Oral BID FLUoxetine 40 mg Oral Daily gabapentin 100 mg Oral BID gabapentin 600 mg Oral Nightly levothyroxine 25 mcg Oral QAM AC lisinopril 10 mg Oral Daily nicotine 1 patch Transdermal Daily OLANZapine 10 mg Oral Nightly Continuous Infusions pantoprazole 8 mg/hr (01/12/15 194) sodium chloride (IV) 125 mL/hr at 01/12/15 1606 PRN Medications benzonatate, hydrALAZINE, HYDROmorphone, ipratropium-albuterol, labetalol, LORazepam, ondan setron OR ondansetron, oxyCODONE, polyethylene glycol OBJECTIVE Vital Signs: BP 111/58 mmHg | Pulse 82 | Temp(Src) 97.1 F (36.2 C) (Oral) | Resp 16 | Ht 1.702 m (5' 7") | Wt 109.68 kg (241 lb 12.8 oz) | BMI 37.86 kg/m2 | SpO2 93% | ? No Temp: [96.7 F (35.9 C)-98.4 F (36.9 C)] 97.1 F (36.2 C) (01/13 1928) BP: (97-118)/(53-74) 111/58 mmHg (01/13 1928) Heart Rate: [78-100] 82 (01/13 1928) Resp: [16-20] 16 (01/13 1928) SpO2: [93 %-99 %] 93 % (01/13 1928) Weight: [109.68 kg (241 lb 12.8 oz)] 109.68 kg (241 lb 12.8 oz) (01/13 612) Constitutional: She is oriented to person, place, and time. She appears well-developed and well-nourished. No distress. HENT: Head: Normocephalic and atraumatic. Mouth/Throat: No oropharyngeal exudate. Eyes: Conjunctivae and EOM are normal. Pupils are equal, round, and reactive to light. No s cleral icterus. Neck: Normal range of motion. Neck supple. No tracheal deviation present. Cardiovascular: Normal rate, regular rhythm, normal heart sounds and intact distal pulses. Exam reveals no gallop and no friction rub. No murmur heard. Pulmonary/Chest: Effort normal and breath sounds normal. She has no wheezes. She has no ral es. Abdominal: Soft. Bowel sounds are normal. She exhibits no distension. There is tenderness. There is no rebound and no guarding. Musculoskeletal: Normal range of motion. She exhibits no edema. Lymphadenopathy: She has no cervical adenopathy. Neurological: She is alert and oriented to person, place, and time. She has normal reflexes . Skin: Skin is warm and dry. Psychiatric: She has a normal mood and affect. Her behavior is normal. Vitals reviewed. DATA CBC: Lab Results Component Value Date WBC 5.51 01/12/2015 RBC 3.28* 01/12/2015 HGB 9.7* 01/12/2015 HCT 29.0* 01/12/2015 MCV 93.3 01/12/2015 MCH 30.0 01/12/2015 MCHC 32.2 01/12/2015 RDW 47.7 01/12/2015 PLT 158 01/12/2015 MPV 8.9 01/12/2015 DIFFTYPE AUTOMATED 01/12/2015 Hemoglobin/Hematocrit: Lab Results Component Value Date HGB 9.7* 01/12/2015 HCT 29.0* 01/12/2015 PT/INR: Lab Results Component Value Date INR 1.0 01/11/2015 PROBLEM LIST Principal Problem: Acute GI bleeding Active Problems: Bipolar affective (HCC) HTN (hypertension) COPD (chronic obstructive pulmonary disease) (HCC) Spinal stenosis, lumbar GERD (gastroesophageal reflux disease) Hematemesis Rectal bleeding Epigastric abdominal pain NSAID induced gastritis ARF (acute renal failure) (HCC) Abnormal LFTs Leukocytosis, unspecified Metabolic acidosis CHI (obstructive sleep apnea) Chronic hepatitis C without hepatic coma (HCC) ASSESSMENT & PLAN low fat diet and small meal each time. F/U on biopsy results tomorrow. Treat rectal bleedi ng as hemorrhoids . Disposition: Code Status: Full Code JACKSON MAS MD 01/12/2015 iryani, Tico Rain MD - 01/12/2015 6:56 PM PDT Progress Notes by Tico Suarez MD at 01/12/151855 Author: Tico Suarez MD Service: Hospitalist Author Type: Physician Filed: 01/12/152101 Date of Service: 01/12/151855 Status: Addendum Gas Well Drilling Manager: Tico Suarez MD (Physician) Related Notes: Original Note by Danita Burr MD-R2 (Resident-Y2) filed at 2019 [facility] Service: Hospitalist Progress Note Hospital Day: LOS: 2 days Post-Op Day: Day of Surgery SUBJECTIVE Patient Summary: The patient is a 54 y.o. female with significant past medical histo ry of Hepatitis C, History of H. pylori treated in the past History of GERD. Does use ibupr ofen 800 mg for lower back pain. Denies previous history of GI bleeding. The patient was brought to the ED via EMS for GI bleeding. The patient has had chronic inte rmittent epigastric pain for the past 2 years; however, it has gotten acutely worse since la st night. The patient is awaiting upper GI endoscopy by Dr. Benitez at [facility] in [place]. She denies alcohol use. Pain level is 9 out of 10 intensity. It ra diates across the upper abdomen and sometimes feels it diffusely. No abdominal distention. A round midnight the patient had hematemesis. It was mostly clear with bright red blood, chunk s or clots. Continues to be nauseous. Apparently had a very large bowel movement which was w itnessed by her significant other and was brown stool with small pieces/clots of bright red blood. This morning in the emergency room had watery diarrhea. No fever or chills. Last colo noscopy was at [facility] and was told it was normal. Denies aspirin or an ticoagulant use. Does take ibuprofen on and off. Denies any left precordial chest pain, arm pain, or jaw pain. No previous history of VT. Denies dizziness, lightheadedness, syncope. apparently she was transiently confused per her significant other. She takes Prilos ec b.i.d. for GERD but has not noted any improvement in her symptoms. Workup in the emergency room showed leukocytosis of 16,000 with neutrophils 77%, no bands. Her H and H has remained stable since her last labs in the [facility] that is hemoglobin 12, hemat ocrit 37. She has normal platelet count, normal INR. She has abnormal LFT with elevated AST, ALT, and alkaline phosphatase, which are up-trending when compared to labs from December 2013 w hen it was from 120s to 380 and ALT 160s to 315. Has acute renal failure, creatinine 2.6, wh ich is up from 0.76 in January 2014. Has metabolic acidosis without anion gap probably second iveth to acute renal failure. She remains hemodynamically stable. Hospitalist service was cons ulted to admit for hematemesis and upper GI bleeding and acute renal failure. Events Overnight: Patient seen and examined. Having BMs; still watery diarrhea. Compl ains of pain in lower abdomen. Denies nausea, vomiting, blood in the stool, hematemesis, fe natasha, fatigue, chills. Scheduled Medications buPROPion 150 mg Oral BID FLUoxetine 40 mg Oral Daily gabapentin 100 mg Oral BID gabapentin 600 mg Oral Nightly levothyroxine 25 mcg Oral QAM AC lisinopril 10 mg Oral Daily nicotine 1 patch Transdermal Daily OLANZapine 10 mg Oral Nightly Continuous Infusions pantoprazole 8 mg/hr (01/12/15 1606) sodium chloride (IV) 125 mL/hr at 01/12/15 1606 PRN Medications benzonatate, hydrALAZINE, HYDROmorphone, ipratropium-albuterol, labetalol, LORazepam, ondan setron OR ondansetron, oxyCODONE, polyethylene glycol OBJECTIVE Vital Signs: BP 106/54 mmHg | Pulse 78 | Temp(Src) 98.4 F (36.9 C) (Oral) | Resp 17 | Ht 1.702 m (5' 7") | Wt 109.68 kg (241 lb 12.8 oz) | BMI 37.86 kg/m2 | SpO2 96% | ? No Patient Vitals for the past 24 hrs: BP Temp Temp src Pulse Resp SpO2 Weight 01/12/15 1629 106/54 mmHg 98.4 F (36.9 C) Oral 78 17 96 % - 01/12/15 1208 113/66 mmHg 97.8 F (36.6 C) Oral 86 16 97 % - 01/12/15 0841 111/58 mmHg 97.9 F (36.6 C) Oral 79 17 97 % - 01/12/15 0612 - - - - - - 109.68 kg (241 lb 12.8 oz) 01/12/15 0423 97/53 mmHg 96.7 F (35.9 C) Axillary 84 19 94 % - 01/12/15 0007 118/74 mmHg 98 F (36.7 C) Oral 100 20 99 % - 01/11/15 1954 128/65 mmHg 98 F (36.7 C) Oral 94 19 98 % - Physical Exam Constitutional: She is oriented to person, place, and time. She appears well-developed and well-nourished. No distress. HENT: Head: Normocephalic and atraumatic. Mouth/Throat: No oropharyngeal exudate. Eyes: Conjunctivae and EOM are normal. Pupils are equal, round, and reactive to light. No s cleral icterus. Neck: Normal range of motion. Neck supple. No tracheal deviation present. Cardiovascular: Normal rate, regular rhythm, normal heart sounds and intact distal pulses. Exam reveals no gallop and no friction rub. No murmur heard. Pulmonary/Chest: Effort normal and breath sounds normal. She has no wheezes. She has no ral es. Abdominal: Soft. Bowel sounds are normal. She exhibits no distension. There is tenderness. There is no rebound and no guarding. Musculoskeletal: Normal range of motion. She exhibits no edema. Lymphadenopathy: She has no cervical adenopathy. Neurological: She is alert and oriented to person, place, and time. She has normal reflexes . Skin: Skin is warm and dry. Psychiatric: She has a normal mood and affect. Her behavior is normal. Vitals reviewed. DATA CBC: Lab Results Component Value Date WBC 5.51 01/12/2015 RBC 3.28* 01/12/2015 HGB 9.7* 01/12/2015 HCT 29.0* 01/12/2015 MCV 93.3 01/12/2015 MCH 30.0 01/12/2015 MCHC 32.2 01/12/2015 RDW 47.7 01/12/2015 PLT 158 01/12/2015 MPV 8.9 01/12/2015 DIFFTYPE AUTOMATED 01/12/2015 Hemoglobin/Hematocrit: Lab Results Component Value Date HGB 9.7* 01/12/2015 HCT 29.0* 01/12/2015 CMP: Lab Results Component Value Date NA 138 01/12/2015 K 4.0 01/12/2015 CL 117* 01/12/2015 CO2 18* 01/12/2015 ANIONGAP 7 01/12/2015 GLUF 137* 01/12/2015 BUN 8 01/12/2015 CREATININE 0.57 01/12/2015 BCR 14 01/12/2015 CA 8.2* 01/12/2015 PROT 5.9* 01/12/2015 ALB 2.5* 01/12/2015 GLOB 3.4 01/12/2015 BILITOT 0.3 01/12/2015 ALP 74 01/12/2015 AST 160* 01/12/2015 ALT 135* 01/12/2015 EGFR >60 01/12/2015 Hepatic Function Panel: Lab Results Component Value Date PROT 5.9* 01/12/2015 ALB 2.5* 01/12/2015 BILITOT 0.3 01/12/2015 BILIDIR 0.1 09/20/2013 ALP 74 01/12/2015 AST 160* 01/12/2015 ALT 135* 01/12/2015 Albumin: Lab Results Component Value Date ALB 2.5* 01/12/2015 Calcium: No results found for: CALCIUM Ionized Calcium: No results found for: OMAYRA, PH, CAION, CANMLX, POCICA Magnesium: Lab Results Component Value Date MG 1.7 01/12/2015 Phosphorus: Lab Results Component Value Date PHOS 2.7 01/12/2015 LDH: No results found for: LDH PT/INR: Lab Results Component Value Date INR 1.0 01/11/2015 Xr Acute Abdominal Series 01/10/2015 1. Nonspecific paucity of small bowel gas. No definite findings to suggest obst ruction. 2. Other findings, as above 1 0:01 AM Ultrasound Abdomen Complete 01/10/2015 1. Very limited study due to body habitus and bowel gas. 2. The gallbladder is surgically absent. 3. Kidneys, spleen, liver and IVC appear grossly normal in size but are poorly visualized. 4. Common bile duct and pancreas were not visualized. 5. Proximal aort a normal in caliber. Mid to distal portion could not be visualized. Ultrasound Bladder 01/10/2015 FINDINGS/IMPRESSION: The bladder has a prevoid volume of 295 mL and a post void volume of 89 mL which is greater than expected for a 54-year-old female. 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 No bladder mass or bladder stone is seen. Bilateral ureteral jets are noted. LEM LIST Principal Problem: Acute GI bleeding Active Problems: Bipolar affective (HCC) HTN (hypertension) COPD (chronic obstructive pulmonary disease) (HCC) Spinal stenosis, lumbar GERD (gastroesophageal reflux disease) Hematemesis Rectal bleeding Epigastric abdominal pain NSAID induced gastritis ARF (acute renal failure) (HCC) Abnormal LFTs Leukocytosis, unspecified Metabolic acidosis CHI (obstructive sleep apnea) Chronic hepatitis C without hepatic coma (HCC) ASSESSMENT & PLAN Acute GI bleeding (01/10/2015) Assessment: Patient with hematemesis and melena episodes. Likely source is an upper GI bl eed. US and AXR showed no significant findings, in part due to body habitus. Currently hemod ynamically stable. EGD on 01/10 was limited due to food in stomach. Colonoscopy on 01/11 revea led the following findings: diverticulosis, mild in degree, involving the sigmoid; hemorrhoi ds (internal); mucosal abnormality, characterized by ulceration, involving the ascending col on, the splenic flexure and the descending colon; biopsies were obtained. Plan: Continue protonix drip GI on board; recommends full liquid diet, advancing to low fat diet as tolerated Follow up pathology reports on biopsy H&H q6h HTN (hypertension) (06/24/2013) Assessment: Chronic condition Plan: Continue home meds COPD (chronic obstructive pulmonary disease) (HCC) (06/24/2013) Assessment: Chronic condition Plan: Continue home meds GERD (gastroesophageal reflux disease) (06/24/2013) Assessment: Chronic condition Plan: Continue home meds Hematemesis (01/10/2015) Assessment: Possible causes include upper GI bleed such as PUD vs esophageal varicies Plan: Monitor H&H Zofran GI recommendations as listed above Rectal bleeding (01/10/2015) Assessment: Based on colonoscopy, likely ischemic colitis. Other possible causes include hemorrhoids and NSAID-induced colonic ulcers Plan: Monitor H&H GI recommendations as listed above ARF (acute renal failure) (HCC) (01/10/2015) Assessment: Elevated BUN and Cr on admission with low GFR. Likely due to hydration; resol lin Plan: Monitor BUN, Cr, GFR Elevated Transaminases (01/10/2015) Assessment: AST, ALT, and alk phos were all elevated. Likely associated with liver diseas e. Trending down. Plan: Monitor CMP Leukocytosis, unspecified (01/10/2015) Assessment: WBC 16.34 on admission. Likely associated with liver disease. Resolved now, W BC today is 5.51 Plan: Monitor WBC Chronic hepatitis C without hepatic coma (HCC) (01/10/2015) Assessment: Chronic condition Plan: Monitor LFTs Prevent acute liver injury via hydration and BP control Disposition: Hospital Code Status: Full Code Danita Burr MD-R1 01/12/2015 onversion Tra nsaction, Provider Unknown - 01/12/2015 2:33 PM PDTFormatting of this note might be differe nt from the original. Case Management by OG Granger at 01/12/15 1433 Author: OG Granger Service: (none) Author Type: Patient Appointment Coordinator Filed: 01/12/15 1435 Date of Service: 01/12/151432 Status: Signed Gas Well Drilling Manager: OG Granger (Patient Appointment Coordinator) 01/12/15 1425 Discharge Planning Evaluation Admitting Diagnosis Gi Bleed Readmission No Living Arrangements Spouse/significant other Support Systems Spouse/significant other;Family members Type of Residence Private residence Independent with ADL's Yes Independent with Mobility No-comment (Ambulates with a walker) Home Care Services No Caregiver after Discharge No Mental Status Oriented Power of Manager Application Development No Anticipated Discharge Plan Post Acute Care Needs None at this time Plan communicated to patient/family Yes Resources Financial concerns No Transportation issues No (Friends or [place] Care van) Patient/Family concerns No Prescription Plan Yes Anticipated Disposition Facility Type Home Met with: Pt and Significant Other and discussed discharge planning, Pt is a 54 y.o., female admitted with GI Bleed. She live s at home with her Significant Other and is independent with ADL's. Pt ambulates with a wal ker due to back pain. She denies any falls at home. No home care services in place. Pt de nies any discharge needs. Patient's PCP is: Naren Nina (General) Patient's insurance: Medicare and Medicaid Coverage concerns: No concerns Medication coverage/concerns: No concerns Community resources utilized / needed: None Assistance in transportation: Family, friends or [place] care van Identification of any specific education / training: None Barriers to Discharge / Alternative housing needed: None Anticipated DCP: Home with Significant Other ZAIRA THOMPSON onver david Transaction, Provider Unknown - 01/12/2015 5:21 AM PDT Nurse Progress Note by Demi Westfall RN at 01/12/15520 Author: Demi Westfall RN Service: (none) Author Type: Registered Nurse Filed: 01/12/15 0523 Date of Service: 01/12/15520 Status: Signed Gas Well Drilling Manager: Demi Westfall RN (Registered Nurse) Patient resting quietly t/o shift. Patient remains lethargic. Patient using O2 via NC at 2L intermittently (patient observed with NC resting on forehead despite teaching.) Patient obs erved to be snoring loudly with periods of apnea. Patient confirms hx of sleep apnea. Patient requested pain medication x2 this shift, patient observed to be snoring loudly, did not awaken to voice. No PRN medication given at this time d/t lethargy. No other acute changes from initial assessment. Will continue to monitor patient. onver david Transaction, Provider Unknown - 01/12/2015 2:47 AM PDT Nurse Progress Note by Demi Westfall RN at 01/12/15246 Author: Demi Westfall RN Service: (none) Author Type: Registered Nurse Filed: 01/12/15247 Date of Service: 01/12/15246 Status: Signed Gas Well Drilling Manager: Demi Westfall RN (Registered Nurse) Patient very lethargic, taking shallow breaths. Patient O2 sats observed to be down to 82%. Patient placed on 2L O2 via NC. Patient sats maintained greater than 92% Will continue to m onitor patient. onver david Transaction, Provider Unknown - 01/12/2015 12:38 AM PDT Nurse Progress Note by Majo Dsouza RN at 01/12/1537 Author: Majo Dsouza RN Service: (none) Author Type: Registered Nurse Filed: 01/12/15 0039 Date of Service: 01/12/1537 Status: Signed Gas Well Drilling Manager: Majo Dsouza RN (Registered Nurse) Pt asked for pain medications. Pt was deeply sleeping and snoring. Wasted pain medication. Will round later to see if pt's pain needs to be addressed. MAJO DSOUZA RN anita Burr MD - 01/11/2015 11:42 PM PDT Progress Notes by Danita Burr MD-R2 at 01/11/15 234 Author: Danita Burr MD-R2 Service: Hospitalist Author Type: Resident Filed: 01/12/15 0017 Date of Service: 01/11/152341 Status: Attested Gas Well Drilling Manager: DONA QuesadaR2 (Resident-Y2) Cosigner: Contreras Burroughs MD at 1614 Attestation signed by Contreras Burroughs MD at 01/12/151614 I have seen and examined the patient and agree with the resident note. I have directed the care plan [facility] Service: Hospitalist Progress Note Hospital Day: LOS: 1 day Post-Op Day: Day of Surgery SUBJECTIVE Patient Summary: The patient is a 54 y.o. female with significant past medical histo ry of Hepatitis C, History of H. pylori treated in the past History of GERD. Does use ibupr ofen on and off for low back pain. Denies previous history of GI bleeding. The patient was brought to the ED via EMS for GI bleeding. The patient has had chronic inte rmittent epigastric pain for the past 2 years; however, it has gotten acutely worse since night. The patient is awaiting upper GI endoscopy by Dr. Benitez at [facility] in [place]. She denies alcohol use. Pain level is 9 out of 10 intensity. It ra diates across the upper abdomen and sometimes feels it diffusely. No abdominal distention. A round midnight the patient had hematemesis. It was mostly clear with bright red blood, chunk s or clots. Continues to be nauseous. Apparently had a very large bowel movement which was w itnessed by her significant other and was brown stool with small pieces/clots of bright red blood. This morning in the emergency room had watery diarrhea. No fever or chills. Last colo noscopy was at [facility] and was told it was normal. Denies aspirin or an ticoagulant use. Does take ibuprofen on and off. Denies any left precordial chest pain, arm pain, or jaw pain. No previous history of VT. Denies dizziness, lightheadedness, syncope. La st night apparently she was transiently confused per her significant other. She takes Prilos ec b.i.d. for GERD but has not noted any improvement in her symptoms. Workup in the emergency room showed leukocytosis of 16,000 with neutrophils 77%, no bands. Her H and H has remained stable since her last labs in the [facility] that is hemoglobin 12, hemat ocrit 37. She has normal platelet count, normal INR. She has abnormal LFT with elevated AST, ALT, and alkaline phosphatase, which are up-trending when compared to labs from December 2013 w hen it was from 120s to 380 and ALT 160s to 315. Has acute renal failure, creatinine 2.6, wh ich is up from 0.76 in January 2014. Has metabolic acidosis without anion gap probably second iveth to acute renal failure. She remains hemodynamically stable. Hospitalist service was cons ulted to admit for hematemesis and upper GI bleeding and acute renal failure. Events Overnight: Patient seen and examined. Reports that overnight had 4 episodes of vomiting and 2 episodes of diarrhea. Still having abdominal pain, but states it improves wh en taking a hot shower. Denies blood in the stool, hematemesis, fever, fatigue, chills. Scheduled Medications buPROPion 150 mg Oral BID FLUoxetine 40 mg Oral Daily gabapentin 100 mg Oral BID gabapentin 600 mg Oral Nightly levothyroxine 25 mcg Oral QAM AC lisinopril 10 mg Oral Daily nicotine 1 patch Transdermal Daily OLANZapine 10 mg Oral Nightly propofol Continuous Infusions pantoprazole 8 mg/hr (01/11/15 2306) sodium chloride (IV) 125 mL/hr at 01/11/15 2220 PRN Medications benzonatate, hydrALAZINE, HYDROmorphone, ipratropium-albuterol, labetalol, LORazepam, ondan setron OR ondansetron, polyethylene glycol OBJECTIVE Vital Signs: BP 128/65 mmHg | Pulse 94 | Temp(Src) 98 F (36.7 C) (Oral) | Resp 19 | Ht 1.702 m (5' 7 ") | Wt 118 kg (260 lb 2.3 oz) | BMI 40.73 kg/m2 | SpO2 98% | ? No Patient Vitals for the past 24 hrs: BP Temp Temp src Pulse Resp SpO2 Weight 01/11/15 1954 128/65 mmHg 98 F (36.7 C) Oral 94 19 98 % - 01/11/15 1851 122/74 mmHg 98.1 F (36.7 C) - 86 18 95 % - 01/11/15 1833 109/53 mmHg - - 92 18 98 % - 01/11/15 1555 111/65 mmHg 98.7 F (37.1 C) Oral 95 18 95 % - 01/11/15 1211 90/55 mmHg 98 F (36.7 C) Oral 93 18 97 % - 01/11/15 0833 118/65 mmHg 98.1 F (36.7 C) Oral 97 18 98 % - 01/11/15 0416 136/61 mmHg 98.1 F (36.7 C) Axillary 104 18 98 % 118 kg (260 lb 2.3 oz) 01/11/15 0006 140/71 mmHg 98 F (36.7 C) Axillary 102 16 96 % - Physical Exam Constitutional: She is oriented to person, place, and time. She appears well-developed and well-nourished. No distress. HENT: Head: Normocephalic and atraumatic. Mouth/Throat: No oropharyngeal exudate. Eyes: Conjunctivae and EOM are normal. Pupils are equal, round, and reactive to light. No s cleral icterus. Neck: Normal range of motion. Neck supple. No tracheal deviation present. Cardiovascular: Normal rate, regular rhythm, normal heart sounds and intact distal pulses. Exam reveals no gallop and no friction rub. No murmur heard. Pulmonary/Chest: Effort normal and breath sounds normal. She has no wheezes. She has no ral es. Abdominal: Soft. Bowel sounds are normal. She exhibits no distension. There is tenderness. There is no rebound and no guarding. Musculoskeletal: Normal range of motion. She exhibits no edema. Lymphadenopathy: She has no cervical adenopathy. Neurological: She is alert and oriented to person, place, and time. She has normal reflexes . Skin: Skin is warm and dry. Psychiatric: She has a normal mood and affect. Her behavior is normal. Vitals reviewed. DATA CBC: Lab Results Component Value Date WBC 11.42* 01/11/2015 RBC 3.57* 01/11/2015 HGB 10.2* 01/11/2015 HCT 30.5* 01/11/2015 MCV 92.5 01/11/2015 MCH 29.8 01/11/2015 MCHC 32.2 01/11/2015 RDW 46.4 01/11/2015 PLT 184 01/11/2015 MPV 8.9 01/11/2015 DIFFTYPE AUTOMATED 01/11/2015 Hemoglobin/Hematocrit: Lab Results Component Value Date HGB 10.2* 01/11/2015 HCT 30.5* 01/11/2015 CMP: Lab Results Component Value Date NA 141 01/11/2015 K 3.7 01/11/2015 CL 112* 01/11/2015 CO2 22* 01/11/2015 ANIONGAP 11 01/11/2015 GLUF 92 01/11/2015 BUN 18 01/11/2015 CREATININE 0.97 01/11/2015 BCR 19 01/11/2015 CA 7.7* 01/11/2015 PROT 7.2 01/11/2015 ALB 2.7* 01/11/2015 GLOB 4.5 01/11/2015 BILITOT 1.0 01/11/2015 ALP 100 01/11/2015 AST 311* 01/11/2015 ALT 236* 01/11/2015 EGFR >60 01/11/2015 Hepatic Function Panel: Lab Results Component Value Date PROT 7.2 01/11/2015 ALB 2.7* 01/11/2015 BILITOT 1.0 01/11/2015 BILIDIR 0.1 09/20/2013 ALP 100 01/11/2015 AST 311* 01/11/2015 ALT 236* 01/11/2015 Albumin: Lab Results Component Value Date ALB 2.7* 01/11/2015 Calcium: No results found for: CALCIUM Ionized Calcium: No results found for: OMAYRA, PH, CAION, CANMLX, POCICA Magnesium: Lab Results Component Value Date MG 1.7 01/11/2015 Phosphorus: Lab Results Component Value Date PHOS 1.8* 01/11/2015 LDH: No results found for: LDH PT/INR: Lab Results Component Value Date INR 1.0 01/11/2015 PROBLEM LIST Principal Problem: Acute GI bleeding Active Problems: Bipolar affective (HCC) HTN (hypertension) COPD (chronic obstructive pulmonary disease) (HCC) Spinal stenosis, lumbar GERD (gastroesophageal reflux disease) Hematemesis Rectal bleeding Epigastric abdominal pain NSAID induced gastritis ARF (acute renal failure) ([facility]) Abnormal LFTs Leukocytosis, unspecified Metabolic acidosis CHI (obstructive sleep apnea) Chronic hepatitis C without hepatic coma (HCC) ASSESSMENT & PLAN Acute GI bleeding (01/10/2015) Assessment: Patient with hematemesis and melena episodes. Likely source is an upper GI bl eed. US and AXR showed no significant findings, in part due to body habitus. Currently hemod ynamically stable. Plan: Continue protonix drip GI Consult for scope NPO H&H q6h HTN (hypertension) (06/24/2013) Assessment: Chronic condition Plan: Continue home meds COPD (chronic obstructive pulmonary disease) (HCC) (06/24/2013) Assessment: Chronic condition Plan: Continue home meds GERD (gastroesophageal reflux disease) (06/24/2013) Assessment: Chronic condition Plan: Continue home meds Hematemesis (01/10/2015) Assessment: Possible causes include upper GI bleed such as PUD vs esophageal varicies Plan: Monitor H&H Zofran GI consulted for scope Rectal bleeding (01/10/2015) Assessment: Possible causes include hemorrhoids and GI bleeds Plan: Monitor H&H GI consulted for scope ARF (acute renal failure) (HCC) (01/10/2015) Assessment: Elevated BUN and Cr on admission with low GFR. Likely due to hydration as it corrected this morning; resolved Plan: Monitor BUN, Cr, GFR Elevated Transaminases (01/10/2015) Assessment: AST, ALT, and alk phos were all elevated. Likely associated with liver diseas e. Plan: Monitor CMP Leukocytosis, unspecified (01/10/2015) Assessment: WBC 16.34 on admission. Likely associated with liver disease. Plan: Monitor WBC Chronic hepatitis C without hepatic coma (HCC) (01/10/2015) Assessment: Chronic condition Plan: Monitor LFTs Prevent acute liver injury via hydration and BP control Disposition: Hospital Code Status: Full Code Danita Burr MD-R1 01/11/2015 onversio n Transaction, Provider Unknown - 01/11/2015 2:01 PM PDTFormatting of this note might be di fferent from the original. Nurse Progress Note by Shamir Do RN at 01/11/15 5131 Author: Shamir Do RN Service: (none) Author Type: Registered Nurse Filed: 01/11/15 1403 Date of Service: 01/11/15 1401 Status: Signed Gas Well Drilling Manager: Shamir Do RN (Registered Nurse) Report called to Marvin Rn in Out Patient Procedures regarding EGD with Dr. Mas. All ques tions addressed. Electronically signed by [facility], Provider at 01/25/2019 2:57 PM PDTConver david Transaction, Provider Unknown - 01/10/2015 11:08 PM PDT Nurse Progress Note by Batsheva Nagy RN at 01/10/152307 Author: Batsheva Nagy RN Service: (none) Author Type: Registered Nurse Filed: 01/10/152311 Date of Service: 01/10/152307 Status: Signed Gas Well Drilling Manager: Batsheva Nagy RN (Registered Nurse) Patient having multiple episodes of emesis. Dr. Calderon notified and ordered ativan changed t o .5mg IV and to notify Dr. Mas to see if he wants the bowel prep to continue. Dr. Mas ord ered Zofran 4mg IV one time dose and to change Zofran to 4mg every 4 hours prn IV. Batsheva juarez RN onver david Transaction, Provider Unknown - 01/10/2015 2:25 PM PDT Nurse Progress Note by Shamir Do RN at 01/10/151424 Author: Shamir Do RN Service: (none) Author Type: Registered Nurse Filed: 01/10/15 1425 Date of Service: 01/10/151424 Status: Signed Gas Well Drilling Manager: Shamir Do RN (Registered Nurse) All po medications held per Dr. Mas. Adding Machine Mechanic. hahla Fong RPH - 01/10/2015 1:39 PM PDTFormatting of this note might be different from t josiah original. Progress Notes by Shahla Kam RPH at 01/10/151338 Author: Shahla Kam RPH Service: (none) Author Type: Pharmacist Filed: 01/10/151338 Date of Service: 01/10/151338 Status: Signed Gas Well Drilling Manager: Shahla Kam RPH (Pharmacist) Clinical Pharmacy Note - Renal Dose Adjustment Nohemi Espitia 54 y.o. female Ht Readings from Last 1 Encounters: 01/10/15 1.702 m (5' 7") Wt Readings from Last 1 Encounters: 01/10/15 108.6 kg (239 lb 6.7 oz) CREATININE Date Value Ref Range Status 01/10/2015 2.6* 0.50 - 1.00 mg/dL Final Comment: Testing performed at [facility];[address] [place] [address];[place] [address] CREATININE: 2.6 mg/dL ABNORMAL (01/10/15902) Estimated creatinine clearance - 31.4 mL/min Pharmacy to renally adjust medications per Dr. Calderon Plan: No medications will require renal dose adjustment based on patient's current estimate d Crcl. Pharmacy will continue to follow and adjust as appropriate. Pharmacist: Shahla Kam 01/10/2015 1:39 PM documente d in this encounter Plan of Treatment +--------+---------+ + + + | Date | Type | Specialty | Care Team | Description | +--------+---------+ + + + | 10/30/ | Office | Neurosurgery | Jose Gonzalez DO | | | 2019 | Visit | | [address] | | | | | | [place] [address] | | | | | | [phone] | | | | | | | | +--------+---------+ + + + documented as of this encounter Procedures + +--------+ + + + | Procedure Name | Priori | Date/Time | Associated Diagnosis | Comments | | | ty | | | | + +--------+ + + + | HEMOGLOBIN AND | Routin | 01/13/2015 | | Results for this | | HEMATOCRIT | e | 11:38 AM | | procedure are in the | | | | PDT | | results section. | + +--------+ + + + | EXTERNAL LAB: CBC | Routin | 01/13/2015 | | Results for this | | | e | 5:35 AM | | procedure are in the | | | | PDT | | results section. | + +--------+ + + + | PHOSPHORUS | Routin | 01/13/2015 | | Results for this | | | e | 5:35 AM | | procedure are in the | | | | PDT | | results section. | + +--------+ + + + | MAGNESIUM | Routin | 01/13/2015 | | Results for this | | | e | 5:35 AM | | procedure are in the | | | | PDT | | results section. | + +--------+ + + + | COMPREHENSIVE | Routin | 01/13/2015 | | Results for this | | METABOLIC PANEL | e | 5:35 AM | | procedure are in the | | | | PDT | | results section. | + +--------+ + + + | HEMOGLOBIN AND | Routin | 01/12/2015 | | Results for this | | HEMATOCRIT | e | 11:43 PM | | procedure are in the | | | | PDT | | results section. | + +--------+ + + + | HEMOGLOBIN AND | Routin | 01/12/2015 | | Results for this | | HEMATOCRIT | e | 6:03 PM | | procedure are in the | | | | PDT | | results section. | + +--------+ + + + | HEMOGLOBIN AND | Routin | 01/12/2015 | | Results for this | | HEMATOCRIT | e | 12:46 PM | | procedure are in the | | | | PDT | | results section. | + +--------+ + + + | EXTERNAL LAB: CBC | Routin | 01/12/2015 | | Results for this | | | e | 4:05 AM | | procedure are in the | | | | PDT | | results section. | + +--------+ + + + | PHOSPHORUS | Routin | 01/12/2015 | | Results for this | | | e | 4:05 AM | | procedure are in the | | | | PDT | | results section. | + +--------+ + + + | MAGNESIUM | Routin | 01/12/2015 | | Results for this | | | e | 4:05 AM | | procedure are in the | | | | PDT | | results section. | + +--------+ + + + | COMPREHENSIVE | Routin | 01/12/2015 | | Results for this | | METABOLIC PANEL | e | 4:05 AM | | procedure are in the | | | | PDT | | results section. | + +--------+ + + + | HEMOGLOBIN AND | Routin | 01/12/2015 | | Results for this | | HEMATOCRIT | e | 12:01 AM | | procedure are in the | | | | PDT | | results section. | + +--------+ + + + | TISSUE REQUEST FOR | Routin | 01/12/2015 | | Results for this | | PATHOLOGY (NON-ORD) | e | 12:00 AM | | procedure are in the | | | | PDT | | results section. | + +--------+ + + + | HEMOGLOBIN AND | Routin | 01/11/2015 | | Results for this | | HEMATOCRIT | e | 6:36 PM | | procedure are in the | | | | PDT | | results section. | + +--------+ + + + | DRUGS OF ABUSE | Routin | 01/11/2015 | | Results for this | | SCREEN, URINE (H) | e | 2:30 PM | | procedure are in the | | | | PDT | | results section. | + +--------+ + + + | DRUG OF ABUSE, | Routin | 01/11/2015 | | Results for this | | AMPHET/METHAMPHET BY | e | 2:30 PM | | procedure are in the | | GC/MS | | PDT | | results section. | + +--------+ + + + | HEMOGLOBIN AND | Routin | 01/11/2015 | | Results for this | | HEMATOCRIT | e | 12:09 PM | | procedure are in the | | | | PDT | | results section. | + +--------+ + + + | IRON AND IRON | Routin | 01/11/2015 | | Results for this | | BINDING CAPACITY | e | 12:06 PM | | procedure are in the | | | | PDT | | results section. | + +--------+ + + + | VITAMIN B-12 | Routin | 01/11/2015 | | Results for this | | | e | 12:06 PM | | procedure are in the | | | | PDT | | results section. | + +--------+ + + + | RETIC COUNT | Routin | 01/11/2015 | | Results for this | | | e | 12:06 PM | | procedure are in the | | | | PDT | | results section. | + +--------+ + + + | FOLATE | Routin | 01/11/2015 | | Results for this | | | e | 12:06 PM | | procedure are in the | | | | PDT | | results section. | + +--------+ + + + | FERRITIN | Routin | 01/11/2015 | | Results for this | | | e | 12:06 PM | | procedure are in the | | | | PDT | | results section. | + +--------+ + + + | EXTERNAL LAB: CBC | Routin | 01/11/2015 | | Results for this | | | e | 7:40 AM | | procedure are in the | | | | PDT | | results section. | + +--------+ + + + | PROTIME INR | Routin | 01/11/2015 | | Results for this | | | e | 7:40 AM | | procedure are in the | | | | PDT | | results section. | + +--------+ + + + | PHOSPHORUS | Routin | 01/11/2015 | | Results for this | | | e | 7:40 AM | | procedure are in the | | | | PDT | | results section. | + +--------+ + + + | MAGNESIUM | Routin | 01/11/2015 | | Results for this | | | e | 7:40 AM | | procedure are in the | | | | PDT | | results section. | + +--------+ + + + | HEMOGLOBIN A1C | Routin | 01/11/2015 | | Results for this | | | e | 7:40 AM | | procedure are in the | | | | PDT | | results section. | + +--------+ + + + | COMPREHENSIVE | Routin | 01/11/2015 | | Results for this | | METABOLIC PANEL | e | 7:40 AM | | procedure are in the | | | | PDT | | results section. | + +--------+ + + + | HEMOGLOBIN AND | Routin | 01/11/2015 | | Results for this | | HEMATOCRIT | e | 12:01 AM | | procedure are in the | | | | PDT | | results section. | + +--------+ + + + | HISTORICAL | Timed | 01/10/2015 | | Results for this | | MICROBIOLOGY RESULT | | 9:11 PM | | procedure are in the | | | | PDT | | results section. | + +--------+ + + + | US PELVIS LIMITED | Routin | 01/10/2015 | | Results for this | | | e | 7:57 PM | | procedure are in the | | | | PDT | | results section. | + +--------+ + + + | US ABDOMEN COMPLETE | Routin | 01/10/2015 | | Results for this | | | e | 7:57 PM | | procedure are in the | | | | PDT | | results section. | + +--------+ + + + | HEMOGLOBIN AND | Routin | 01/10/2015 | | Results for this | | HEMATOCRIT | e | 6:19 PM | | procedure are in the | | | | PDT | | results section. | + +--------+ + + + | URINALYSIS, REFLEX | Routin | 01/10/2015 | | Results for this | | MICROSCOPIC AND/OR | e | 5:15 PM | | procedure are in the | | CULTURE | | PDT | | results section. | + +--------+ + + + | URINALYSIS, | Routin | 01/10/2015 | | Results for this | | MICROSCOPIC ONLY | e | 5:15 PM | | procedure are in the | | | | PDT | | results section. | + +--------+ + + + | EOSINOPHIL SMEAR, | Routin | 01/10/2015 | | Results for this | | URINE | e | 5:15 PM | | procedure are in the | | | | PDT | | results section. | + +--------+ + + + | TYPE AND SCREEN | Routin | 01/10/2015 | | Results for this | | | e | 10:25 AM | | procedure are in the | | | | PDT | | results section. | + +--------+ + + + | URINALYSIS, | Routin | 01/10/2015 | | Results for this | | MICROSCOPIC ONLY | e | 10:21 AM | | procedure are in the | | | | PDT | | results section. | + +--------+ + + + | SODIUM, URINE, | Routin | 01/10/2015 | | Results for this | | RANDOM | e | 10:21 AM | | procedure are in the | | | | PDT | | results section. | + +--------+ + + + | CULTURE, URINE | STAT | 01/10/2015 | | Results for this | | | | 10:21 AM | | procedure are in the | | | | PDT | | results section. | + +--------+ + + + | XR ABDOMEN AP | Routin | 01/10/2015 | | Results for this | | UPRIGHT KUB AND PA | e | 9:56 AM | | procedure are in the | | CHEST | | PDT | | results section. | + +--------+ + + + | EXTERNAL LAB: CBC | Routin | 01/10/2015 | | Results for this | | | e | 9:03 AM | | procedure are in the | | | | PDT | | results section. | + +--------+ + + + | PROTIME INR | Routin | 01/10/2015 | | Results for this | | | e | 9:03 AM | | procedure are in the | | | | PDT | | results section. | + +--------+ + + + | PHOSPHORUS | Routin | 01/10/2015 | | Results for this | | | e | 9:03 AM | | procedure are in the | | | | PDT | | results section. | + +--------+ + + + | MAGNESIUM | Routin | 01/10/2015 | | Results for this | | | e | 9:03 AM | | procedure are in the | | | | PDT | | results section. | + +--------+ + + + | LIPASE | Routin | 01/10/2015 | | Results for this | | | e | 9:03 AM | | procedure are in the | | | | PDT | | results section. | + +--------+ + + + | AMYLASE | Routin | 01/10/2015 | | Results for this | | | e | 9:03 AM | | procedure are in the | | | | PDT | | results section. | + +--------+ + + + | COMPREHENSIVE | Routin | 01/10/2015 | | Results for this | | METABOLIC PANEL | e | 9:03 AM | | procedure are in the | | | | PDT | | results section. | + +--------+ + + + documented in this encounter Results Hemoglobin and Hematocrit (01/13/2015 11:38 AM PDT) + + + + + + | Component | Value | Ref Range | Performed | Pathologist | | | | | At | Signature | + + + + + + | Hemoglobin | 9.8 (L)Comment: Testing | 11.3 - 15.5 | EXTERNAL | | | | performed at [facility];888 | g/dL | LAB | | | | [address];[place] | | | | | | [address] | | | | + + + + + + | Hematocrit, | 30.2 (L)Comment: Testing | 34.0 - 46.0 % | EXTERNAL | | | POC | performed at [facility];[address] | | LAB | | | | [address];[place] | | | | | | [address] | | | | + + + + + + + + | Specimen | + + | | + + + +---------+ + + | Performing | Address | City/State/Zipcode | Phone Number | | Organization | | | | + +---------+ + + | EXTERNAL LAB | | | | + +---------+ + + External Lab: CBC (01/13/2015 5:35 AM PDT) + + + + + + | Component | Value | Ref Range | Performed | Pathologist | | | | | At | Signature | + + + + + + | WBC | 4.59Comment: Testing | 3.80 - 11.00 | EXTERNAL | | | | performed at [facility], [address] | K[address] | LAB | | | | [address], | | | | | | [place] [address] | | | | + + + + + + | Red Blood | 3.21 (L)Comment: Testing | 3.70 - 5.10 | EXTERNAL | | | Cells | performed at [facility], [address] | [address] | LAB | | | Counted | [address], | | | | | | [place] [address] | | | | + + + + + + | Hemoglobin | 9.5 (L)Comment: Testing | 11.3 - 15.5 | EXTERNAL | | | | performed at [facility], [address] | g/dL | LAB | | | | [address], | | | | | | [place] [address] | | | | + + + + + + | Hematocrit, | 29.9 (L)Comment: Testing | 34.0 - 46.0 % | EXTERNAL | | | POC | performed at [facility], [address] | | LAB | | | | [address], | | | | | | [place] [address] | | | | + + + + + + | MCV | 93.2Comment: Testing | 80.0 - 100.0 fl | EXTERNAL | | | | performed at [facility], [address] | | LAB | | | | [address], | | | | | | [place] [address] | | | | + + + + + + | MCH | 29.5Comment: Testing | 27.0 - 34.0 pg | EXTERNAL | | | | performed at [facility], [address] | | LAB | | | | [address], | | | | | | [place] [address] | | | | + + + + + + | MCHC | 31.7 (L)Comment: Testing | 32.0 - 35.5 | EXTERNAL | | | | performed at [facility], [address] | g/dL | LAB | | | | [address], | | | | | | [place] [address] | | | | + + + + + + | RDW-CV | 47.7Comment: Testing | 37 - 53 fl | EXTERNAL | | | | performed at [facility], [address] | | LAB | | | | [address], | | | | | | [place] [address] | | | | + + + + + + | Platelet | 172Comment: Testing | 150 - 400 K/uL | EXTERNAL | | | Count | performed at [facility], [address] | | LAB | | | Plasma | [address], | | | | | | [place] [address] | | | | + + + + + + | MPV | 8.6Comment: Testing | fl | EXTERNAL | | | | performed at [facility], [address] | | LAB | | | | [address], | | | | | | [place] [address] | | | | + + + + + + | Differentia | AUTOMATEDComment: | | EXTERNAL | | | l Type | Testing performed at | | LAB | | | | [facility], [address] | | | | | | [place] | | | | | | [address] | | | | + + + + + + | % Segmented | 45.95Comment: Testing | % | EXTERNAL | | | | performed at [facility], [address] | | LAB | | | Neutrophils | [address], | | | | | | [place] [address] | | | | + + + + + + | % | 37.77Comment: Testing | % | EXTERNAL | | | Lymphocytes | performed at [facility], [address] | | LAB | | | | [address], | | | | | | [place] [address] | | | | + + + + + + | % Monocytes | 8.27Comment: Testing | % | EXTERNAL | | | | performed at [facility], [address] | | LAB | | | | [address], | | | | | | [place], [place] [address] | | | | + + + + + + | % | 7.21Comment: Testing | % | EXTERNAL | | | Eosinophils | performed at [facility], [address] | | LAB | | | | [address], | | | | | | [place] [address] | | | | + + + + + + | % Basophils | 0.80Comment: Testing | % | EXTERNAL | | | | performed at [facility], [address] | | LAB | | | | [address], | | | | | | [place] [address] | | | | + + + + + + | Absolute | 2.11Comment: Testing | 1.90 - 7.40 | EXTERNAL | | | Segmented | performed at [facility], [address] | K/uL | LAB | | | Neutrophils | [address], | | | | | | [place] [address] | | | | + + + + + + | Absolute | 1.73Comment: Testing | 1.00 - 3.90 | EXTERNAL | | | Lymphocytes | performed at [facility], [address] | K/uL | LAB | | | | [address], | | | | | | [place] [address] | | | | + + + + + + | Absolute | 0.38Comment: Testing | 0.00 - 0.80 | EXTERNAL | | | Monocytes | performed at [facility], [address] | K/uL | LAB | | | | [address], | | | | | | [place] [address] | | | | + + + + + + | Absolute | 0.33Comment: Testing | 0.00 - 0.50 | EXTERNAL | | | Eosinophils | performed at [facility], [address] | K/uL | LAB | | | | [address], | | | | | | [place] [address] | | | | + + + + + + | Absolute | 0.04Comment: Testing | 0.00 - 0.10 | EXTERNAL | | | Basophils | performed at [facility], [address] | K/uL | LAB | | | | [address], | | | | | | [place] [address] | | | | + + + + + + + + | Specimen | + + | Blood specimen | | (specimen) | + + + +---------+ + + | Performing | Address | City/State/Zipcode | Phone Number | | Organization | | | | + +---------+ + + | EXTERNAL LAB | | | | + +---------+ + + Phosphorus (01/13/2015 5:35 AM PDT) + + + + + + | Component | Value | Ref Range | Performed | Pathologist | | | | | At | Signature | + + + + + + | PHOSPHORUS | 2.9Comment: Testing | 2.3 - 4.8 mg/dL | EXTERNAL | | | | performed at [facility], [address] | | LAB | | | | [facility], | | | | | | [place] [address] | | | | + + + + + + + + | Specimen | + + | Blood specimen | | (specimen) | + + + +---------+ + + | Performing | Address | City/State/Zipcode | Phone Number | | Organization | | | | + +---------+ + + | EXTERNAL LAB | | | | + +---------+ + + Magnesium (01/13/2015 5:35 AM PDT) + + + + + + | Component | Value | Ref Range | Performed | Pathologist | | | | | At | Signature | + + + + + + | Magnesium | 1.6 (L)Comment: Testing | 1.7 - 2.4 mg/dL | EXTERNAL | | | | performed at [facility], [address] | | LAB | | | | [address], | | | | | | [place] [address] | | | | + + + [...] + +---------+ + + Comprehensive Metabolic Panel (01/13/2015 5:35 AM PDT) + + + + + + | Component | Value | Ref Range | Performed | Pathologist | | | | | At | Signature | + + + + + + | Na | 138Comment: Testing | 135 - 143 | EXTERNAL | | | | performed at [facility], [address] | mmol/L | LAB | | | | [address], | | | | | | [place] [address] | | | | + + + + + + | K | 3.9Comment: Testing | 3.5 - 4.9 | EXTERNAL | | | | performed at [facility], [address] | mmol/L | LAB | | | | [address], | | | | | | [place] [address] | | | | + + + + + + | Cl | 116 (H)Comment: Testing | 99 - 109 mmol/L | EXTERNAL | | | | performed at [facility], [address] | | LAB | | | | [address], | | | | | | [place] [address] | | | | + + + + + + | CO2 | 24Comment: Testing | 23 - 32 mmol/L | EXTERNAL | | | | performed at [facility], [address] | | LAB | | | | [address], | | | | | | [place] [address] | | | | + + + + + + | Anion Gap | 2 (L)Comment: Testing | 5 - 20 mmol/L | EXTERNAL | | | | performed at [facility], [address] | | LAB | | | | [address], | | | | | | [place] [address] | | | | + + + + + + | Glucose, | 98Comment: Testing | 65 - 99 mg/dL | EXTERNAL | | | Fasting | performed at [facility], [address] | | LAB | | | | [address], | | | | | | [place] [address] | | | | + + + + + + | BUN | 7 (L)Comment: Testing | 8 - 25 mg/dL | EXTERNAL | | | | performed at [facility], [address] | | LAB | | | | [address], | | | | | | [place] [address] | | | | + + + + + + | Creatinine | 0.58Comment: Testing | 0.50 - 1.00 | EXTERNAL | | | | performed at [facility], [address] | mg/dL | LAB | | | | [address], | | | | | | [place] [address] | | | | + + + + + + | BUN/Creatin | 12Comment: Testing | | EXTERNAL | | | ine Ratio | performed at [facility], [address] | | LAB | | | | [address], | | | | | | [place] [address] | | | | + + + + + + | Calcium | 8.2 (L)Comment: Testing | 8.5 - 10.5 | EXTERNAL | | | | performed at [facility], [address] | mg/dL | LAB | | | | [address], | | | | | | [place] [address] | | | | + + + + + + | Protein, | 5.8 (L)Comment: Testing | 6.3 - 8.2 g/dL | EXTERNAL | | | Total | performed at [facility], [address] | | LAB | | | | [address], | | | | | | [place] [address] | | | | + + + + + + | Albumin | 2.6 (L)Comment: Testing | 3.6 - 5.0 g/dL | EXTERNAL | | | | performed at [facility], [address] | | LAB | | | | [address], | | | | | | [place] [address] | | | | + + + + + + | Globulin | 3.2Comment: Testing | 1.3 - 4.9 g/dL | EXTERNAL | | | | performed at [facility], [address] | | LAB | | | | [address], | | | | | | [place] [address] | | | | + + + + + + | A/G Ratio | 0.8 (L)Comment: Testing | 1.0 - 2.4 | EXTERNAL | | | | performed at [facility], [address] | | LAB | | | | [address], | | | | | | [place] [address] | | | | + + + + + + | Bilirubin | 0.2Comment: Testing | 0.1 - 1.5 mg/dL | EXTERNAL | | | Total | performed at [facility], [address] | | LAB | | | | [address], | | | | | | [place] [address] | | | | + + + + + + | ALP, | 77Comment: Testing | 35 - 115 U/L | EXTERNAL | | | External | performed at [facility], [address] | | LAB | | | [address], | | | | | | [place] [address] | | | | + + + + + + | AST | 96 (H)Comment: Testing | 10 - 45 U/L | EXTERNAL | | | | performed at [facility], [address] | | LAB | | | | [address], | | | | | | [place] [address] | | | | + + + + + + | ALT | 115 (H)Comment: Testing | 10 - 65 U/L | EXTERNAL | | | | performed at [facility], [address] | | LAB | | | | [address], | | | | | | [place] [address] | | | | + + + [...] | | | | | | at [facility], [address] | | | | | | [address], | | | | | | [place] [address] | | | | + + + + + + + + | Specimen | + + | Blood specimen | | (specimen) | + + + +---------+ + + | Performing | Address | City/State/Zipcode | Phone Number | | Organization | | | | + +---------+ + + | EXTERNAL LAB | | | | + +---------+ + + Hemoglobin and Hematocrit (01/12/2015 11:43 PM PDT) + + + + + + | Component | Value | Ref Range | Performed | Pathologist | | | | | At | Signature | + + + + + + | Hemoglobin | 9.8 (L)Comment: Testing | 11.3 - 15.5 | EXTERNAL | | | | performed at [facility];[address] | g/dL | LAB | | | | [address];[place] | | | | | | [address] | | | | + + + + + + | Hematocrit, | 29.8 (L)Comment: Testing | 34.0 - 46.0 % | EXTERNAL | | | POC | performed at [facility];[address] | | LAB | | | | [address];[place] | | | | | | [address] | | | | + + + + + + + + | Specimen | + + | | + + + +---------+ + + | Performing | Address | City/State/Zipcode | Phone Number | | Organization | | | | + +---------+ + + | EXTERNAL LAB | | | | + +---------+ + + Hemoglobin and Hematocrit (01/12/2015 6:03 PM PDT) + + + + + + | Component | Value | Ref Range | Performed | Pathologist | | | | | At | Signature | + + + + + + | Hemoglobin | 9.7 (L)Comment: Testing | 11.3 - 15.5 | EXTERNAL | | | | performed at [facility];[address] | g/dL | LAB | | | | [address];[place] | | | | | | [address] | | | | + + + + + + | Hematocrit, | 29.0 (L)Comment: Testing | 34.0 - 46.0 % | EXTERNAL | | | POC | performed at [facility];[address] | | LAB | | | | [address];[place] | | | | | | [address] | | | | + + + + + + + + | Specimen | + + | | + + + +---------+ + + | Performing | Address | City/State/Zipcode | Phone Number | | Organization | | | | + +---------+ + + | EXTERNAL LAB | | | | + +---------+ + + Hemoglobin and Hematocrit (01/12/2015 12:46 PM PDT) + + + + + + | Component | Value | Ref Range | Performed | Pathologist | | | | | At | Signature | + + + + + + | Hemoglobin | 9.8 (L)Comment: Testing | 11.3 - 15.5 | EXTERNAL | | | | performed at [facility];[address] | g/dL | LAB | | | | [address];[place] | | | | | | [address] | | | | + + + + + + | Hematocrit, | 30.1 (L)Comment: Testing | 34.0 - 46.0 % | EXTERNAL | | | POC | performed at [facility];[address] | | LAB | | | | [address];[place] | | | | | | [address] | | | | + + + + + + + + | Specimen | + + | | + + + +---------+ + + | Performing | Address | City/State/Zipcode | Phone Number | | Organization | | | | + +---------+ + + | EXTERNAL LAB | | | | + +---------+ + + External Lab: CBC (01/12/2015 4:05 AM PDT) + + + + + + | Component | Value | Ref Range | Performed | Pathologist | | | | | At | Signature | + + + + + + | WBC | 5.51Comment: Testing | 3.80 - 11.00 | EXTERNAL | | | | performed at [facility], [address] | K/uL | LAB | | | | [address], | | | | | | [place] [address] | | | | + + + + + + | Red Blood | 3.28 (L)Comment: Testing | 3.70 - 5.10 | EXTERNAL | | | Cells | performed at [facility], [address] | M/uL | LAB | | | Counted | [address], | | | | | | [place] [address] | | | | + + + + + + | Hemoglobin | 9.9 (L)Comment: Testing | 11.3 - 15.5 | EXTERNAL | | | | performed at [facility], [address] | g/dL | LAB | | | | [address], | | | | | | [place] [address] | | | | + + + + + + | Hematocrit, | 30.6 (L)Comment: Testing | 34.0 - 46.0 % | EXTERNAL | | | POC | performed at [facility], [address] | | LAB | | | | [address], | | | | | | [place] [address] | | | | + + + + + + | MCV | 93.3Comment: Testing | 80.0 - 100.0 fl | EXTERNAL | | | | performed at [facility], [address] | | LAB | | | | [address], | | | | | | [place] [address] | | | | + + + + + + | MCH | 30.0Comment: Testing | 27.0 - 34.0 pg | EXTERNAL | | | | performed at [facility], [address] | | LAB | | | | [address], | | | | | | [place] [address] | | | | + + + + + + | MCHC | 32.2Comment: Testing | 32.0 - 35.5 | EXTERNAL | | | | performed at [facility], [address] | g/dL | LAB | | | | [address], | | | | | | [place] [address] | | | | + + + + + + | RDW-CV | 47.7Comment: Testing | 37 - 53 fl | EXTERNAL | | | | performed at [facility], [address] | | LAB | | | | [address], | | | | | | [place] [address] | | | | + + + + + + | Platelet | 158Comment: Testing | 150 - 400 K/uL | EXTERNAL | | | Count | performed at [facility], [address] | | LAB | | | Plasma | [address], | | | | | | [place] [address] | | | | + + + + + + | MPV | 8.9Comment: Testing | fl | EXTERNAL | | | | performed at [facility], [address] | | LAB | | | | [address], | | | | | | [place] [address] | | | | + + + + + + | Differentia | AUTOMATEDComment: | | EXTERNAL | | | l Type | Testing performed at | | LAB | | | | [facility], [address] | | | | | | [place] | | | | | | [address] | | | | + + + + + + | % Segmented | 56.56Comment: Testing | % | EXTERNAL | | | | performed at [facility], [address] | | LAB | | | Neutrophils | [address], | | | | | | [place], [place] [address] | | | | + + + + + + | % | 29.02Comment: Testing | % | EXTERNAL | | | Lymphocytes | performed at [facility], [address] | | LAB | | | | [address], | | | | | | [place] [address] | | | | + + + + + + | % Monocytes | 8.64Comment: Testing | % | EXTERNAL | | | | performed at [facility], [address] | | LAB | | | | [address], | | | | | | [place] [address] | | | | + + + + + + | % | 5.18Comment: Testing | % | EXTERNAL | | | Eosinophils | performed at [facility], [address] | | LAB | | | | [address], | | | | | | [place] [address] | | | | + + + + + + | % Basophils | 0.60Comment: Testing | % | EXTERNAL | | | | performed at [facility], [address] | | LAB | | | | [address], | | | | | | [place] [address] | | | | + + + + + + | Absolute | 3.12Comment: Testing | 1.90 - 7.40 | EXTERNAL | | | Segmented | performed at [facility], [address] | K/uL | LAB | | | Neutrophils | [address], | | | | | | [place] [address] | | | | + + + + + + | Absolute | 1.60Comment: Testing | 1.00 - 3.90 | EXTERNAL | | | Lymphocytes | performed at [facility], [address] | K/uL | LAB | | | | [address], | | | | | | [place] [address] | | | | + + + + + + | Absolute | 0.48Comment: Testing | 0.00 - 0.80 | EXTERNAL | | | Monocytes | performed at [facility], [address] | K/uL | LAB | | | | [address], | | | | | | [place] [address] | | | | + + + + + + | Absolute | 0.29Comment: Testing | 0.00 - 0.50 | EXTERNAL | | | Eosinophils | performed at [facility], [address] | K/uL | LAB | | | | [address], | | | | | | [place] [address] | | | | + + + + + + | Absolute | 0.03Comment: Testing | 0.00 - 0.10 | EXTERNAL | | | Basophils | performed at [facility], [address] | K/uL | LAB | | | | [address], | | | | | | [place] [address] | | | | + + + + + + + + | Specimen | + + | Blood specimen | | (specimen) | + + + +---------+ + + | Performing | Address | City/State/Zipcode | Phone Number | | Organization | | | | + +---------+ + + | EXTERNAL LAB | | | | + +---------+ + + Phosphorus (01/12/2015 4:05 AM PDT) + + + + + + | Component | Value | Ref Range | Performed | Pathologist | | | | | At | Signature | + + + + + + | PHOSPHORUS | 2.7Comment: Testing | 2.3 - 4.8 mg/dL | EXTERNAL | | | | performed at [facility], [address] | | LAB | | | | [address], | | | | | | [place] [address] | | | | + + + + + + + + | Specimen | + + | Blood specimen | | (specimen) | + + + +---------+ + + | Performing | Address | City/State/Zipcode | Phone Number | | Organization | | | | + +---------+ + + | EXTERNAL LAB | | | | + +---------+ + + Magnesium (01/12/2015 4:05 AM PDT) + + + + + + | Component | Value | Ref Range | Performed | Pathologist | | | | | At | Signature | + + + + + + | Magnesium | 1.7Comment: Testing | 1.7 - 2.4 mg/dL | EXTERNAL | | | | performed at [facility], [address] | | LAB | | | | [address], | | | | | | [place] [address] | | | | + + + [...] + +---------+ + + Comprehensive Metabolic Panel (01/12/2015 4:05 AM PDT) + + + + + + | Component | Value | Ref Range | Performed | Pathologist | | | | | At | Signature | + + + + + + | Na | 138Comment: Testing | 135 - 143 | EXTERNAL | | | | performed at [facility], [address] | mmol/L | LAB | | | | [address], | | | | | | [place] [address] | | | | + + + + + + | K | 4.0Comment: Testing | 3.5 - 4.9 | EXTERNAL | | | | performed at [facility], [address] | mmol/L | LAB | | | | [address], | | | | | | [place] [address] | | | | + + + + + + | Cl | 117 (H)Comment: Testing | 99 - 109 mmol/L | EXTERNAL | | | | performed at [facility], [address] | | LAB | | | | [address], | | | | | | [place] [address] | | | | + + + + + + | CO2 | 18 (L)Comment: Testing | 23 - 32 mmol/L | EXTERNAL | | | | performed at [facility], [address] | | LAB | | | | [address], | | | | | | [place] [address] | | | | + + + + + + | Anion Gap | 7Comment: Testing | 5 - 20 mmol/L | EXTERNAL | | | | performed at [facility], [address] | | LAB | | | | [address], | | | | | | [place] [address] | | | | + + + + + + | Glucose, | 137 (H)Comment: Testing | 65 - 99 mg/dL | EXTERNAL | | | Fasting | performed at [facility], [address] | | LAB | | | | [address], | | | | | | [place] [address] | | | | + + + + + + | BUN | 8Comment: Testing | 8 - 25 mg/dL | EXTERNAL | | | | performed at [facility], [address] | | LAB | | | | [address], | | | | | | [place] [address] | | | | + + + + + + | Creatinine | 0.57Comment: Testing | 0.50 - 1.00 | EXTERNAL | | | | performed at [facility], [address] | mg/dL | LAB | | | | [address], | | | | | | [place] [address] | | | | + + + + + + | BUN/Creatin | 14Comment: Testing | | EXTERNAL | | | ine Ratio | performed at [facility], [address] | | LAB | | | | [address], | | | | | | [place] [address] | | | | + + + + + + | Calcium | 8.2 (L)Comment: Testing | 8.5 - 10.5 | EXTERNAL | | | | performed at [facility], [address] | mg/dL | LAB | | | | [address], | | | | | | [place] [address] | | | | + + + + + + | Protein, | 5.9 (L)Comment: Testing | 6.3 - 8.2 g/dL | EXTERNAL | | | Total | performed at [facility], [address] | | LAB | | | | [address], | | | | | | [place] [address] | | | | + + + + + + | Albumin | 2.5 (L)Comment: Testing | 3.6 - 5.0 g/dL | EXTERNAL | | | | performed at [facility], [address] | | LAB | | | | [address], | | | | | | [place] [address] | | | | + + + + + + | Globulin | 3.4Comment: Testing | 1.3 - 4.9 g/dL | EXTERNAL | | | | performed at [facility], [address] | | LAB | | | | [address], | | | | | | [place] [address] | | | | + + + + + + | A/G Ratio | 0.7 (L)Comment: Testing | 1.0 - 2.4 | EXTERNAL | | | | performed at [facility], [address] | | LAB | | | | [address], | | | | | | [place] [address] | | | | + + + + + + | Bilirubin | 0.3Comment: Testing | 0.1 - 1.5 mg/dL | EXTERNAL | | | Total | performed at [facility], [address] | | LAB | | | | [address], | | | | | | [place] [address] | | | | + + + + + + | ALP, | 74Comment: Testing | 35 - 115 U/L | EXTERNAL | | | External | performed at [facility], [address] | | LAB | | | | [address], | | | | | | [place] [address] | | | | + + + + + + | AST | 160 (H)Comment: Testing | 10 - 45 U/L | EXTERNAL | | | | performed at [facility], [address] | | LAB | | | | [address], | | | | | | [place] [id number] | | | | + + + + + + | ALT | 135 (H)Comment: Testing | 10 - 65 U/L | EXTERNAL | | | | performed at [facility], [address] | | LAB | | | | [address], | | | | | | [place] [address] | | | | + + + [...] | | | | | | at [facility], [address] | | | | | | [facility], | | | | | | [place] [address] | | | | + + + + + + + + | Specimen | + + | Blood specimen | | (specimen) | + + + +---------+ + + | Performing | Address | City/State/Zipcode | Phone Number | | Organization | | | | + +---------+ + + | EXTERNAL LAB | | | | + +---------+ + + Hemoglobin and Hematocrit (01/12/2015 12:01 AM PDT) + + + + + + | Component | Value | Ref Range | Performed | Pathologist | | | | | At | Signature | + + + + + + | Hemoglobin | 10.0 (L)Comment: Testing | 11.3 - 15.5 | EXTERNAL | | | | performed at [facility];888 | g/dL | LAB | | | | [address];[place] | | | | | | [address] | | | | + + + + + + | Hematocrit, | 31.4 (L)Comment: Testing | 34.0 - 46.0 % | EXTERNAL | | | POC | performed at [facility];[address] | | LAB | | | | [address];[place] | | | | | | [address] | | | | + + + + + + + + | Specimen | + + | | + + + +---------+ + + | Performing | Address | City/State/Zipcode | Phone Number | | Organization | | | | + +---------+ + + | EXTERNAL LAB | | | | + +---------+ + + Tissue Request For Pathology (01/12/2015 12:00 AM PDT) + + | Specimen | + + | Soft tissue sample | | (specimen) | + + + + + | Narrative | Performed At | + + + | SPECIMEN(S): A DUODENAL BIOPSY SPECIMEN(S): B GASTRIC- BIOPSY | EXTERNAL LAB | | SPECIMEN(S): C TRANSVERSE COLON BIOPSY SPECIMEN SOURCE: A. | | | DUODENAL BIOPSY B. GASTRIC- BIOPSY C. TRANSVERSE COLON BIOPSY | | | CLINICAL HISTORY: 01/11/2015 at 1806 H. No clinical history given. | | | MICROSCOPIC DESCRIPTION: A-C. Histologic sections of all | | | submitted blocks are examined by light microscopy. These findings, | | | together with the gross examination, support the pathologic diagnosis. | | | FINAL PATHOLOGIC DIAGNOSIS: A. Duodenum, biopsies: - | | | Unremarkable duodenal mucosa with focally prominent Renu's glands. | | | - Negative for active inflammation or significant villous | | | blunting. B. Stomach, biopsies: - Benign body type gastric | | | mucosa with mild vascular congestion. - Negative for significant | | | inflammatory change. C. Transverse colon, biopsies: - Acute | | | colitis with mucosal ulceration. (See comment). - Negative for | | | granulomas or dysplasia. COMMENT: Additional clinical history is not | | | provided. In the appropriate clinical setting, the histologic changes | | | are suggestive of ischemic colitis. Diagnostic considerations also | | | include infectious colitis. Correlation with clinical symptoms is | | | indicated. AMB:conrad:C2NR GROSS DESCRIPTION: Three specimens are | | | received in three containers labeled with the patient's name: A. | | | The specimen is received in formalin designated "duodenum" and | | | consists of five yellow-brennan soft tissue fragments that range in size | | | from 0.3 cm up to 0.5 cm in greatest dimension. The specimen is | | | entirely submitted in cassette (A1). B. The specimen is received | | | in formalin designated "gastric" and consists of four yellow-brennan soft | | | tissue fragments that range in size from 0.3 cm up to 0.6 cm in | | | greatest dimension. The specimen is entirely submitted in cassette | | | (B1). C. The specimen is received in formalin designated | | | "transverse colon" and consists of five yellow-brennan soft tissue | | | fragments that range in size from 0.2 cm up to 0.6 cm in greatest | | | dimension. The specimen is entirely submitted in cassette (C1). | | | fm:randall PERFORMING LABORATORY: Professional interpretation and | | | technical preparation was [facility] | | | [address] [address] | | | (University Archivist: Maximiliano Smith M.D.; [facility]#: [id number]). | | | Diagnostician: Adela Mixon MD Pathologist Electronically Signed | | | 01/13/2015 | | + + + + +---------+ + + | Performing | Address | City/State/Zipcode | Phone Number | | Organization | | | | + +---------+ + + | EXTERNAL LAB | | | | + +---------+ + + Hemoglobin and Hematocrit (01/11/2015 6:36 PM PDT) + + + + + + | Component | Value | Ref Range | Performed | Pathologist | | | | | At | Signature | + + + + + + | Hemoglobin | 10.2 (L)Comment: Testing | 11.3 - 15.5 | EXTERNAL | | | | performed at [facility];888 | g/dL | LAB | | | | [address];[place] | | | | | | [address] | | | | + + + + + + | Hematocrit, | 30.5 (L)Comment: Testing | 34.0 - 46.0 % | EXTERNAL | | | POC | performed at [facility];[address] | | LAB | | | | [address];[place] | | | | | | [address] | | | | + + + + + + + + | Specimen | + + | | + + + +---------+ + + | Performing | Address | City/State/Zipcode | Phone Number | | Organization | | | | + +---------+ + + | EXTERNAL LAB | | | | + +---------+ + + CUCA, Amphet/Methamphet,GC/MS (01/11/2015 2:30 PM PDT) + + + + + + | Component | Value | Ref Range | Performed | Pathologist | | | | | At | Signature | + + + + + + | Amphetamine | NEGATIVEComment: The | | EXTERNAL | | | s | cutoff for a positive | | LAB | | | | AMP is 1000 | | | | | | ng/mL.Testing performed | | | | | | at [facility];[address];[place] [address] | | | | + + + + + + | Methampheta | POSITIVE (A)Comment: | | EXTERNAL | | | mine | The cutoff for a | | LAB | | | Screen, UA, | positive mAMP is 1000 | | | | | POC | ng/mL.Testing performed | | | | | | at [facility];[address] | | | | [address];[place] [address] | | | | + + + + + + + + | Specimen | + + | | + + + +---------+ + + | Performing | Address | City/State/Zipcode | Phone Number | | Organization | | | | + +---------+ + + | EXTERNAL LAB | | | | + +---------+ + + Drugs Of ABuse Screen, Urine (H) (01/11/2015 2:30 PM PDT) + + + + + + | Component | Value | Ref Range | Performed | Pathologist | | | | | At | Signature | + + + + + + | Methampheta | POSITIVE (A)Comment: | | EXTERNAL | | | mine/ | Positive cutoff for | | LAB | | | Amphetamine | AMP = 1000 ng/mLTesting | | | | | Screen, | performed at [facility];[address] | | | | | UA, POC | [address];[place] | | | | | | [address] | | | | + + + + + + | Barbiturate | NEGATIVEComment: | | EXTERNAL | | | s Screen, | Positive cutoff for | | LAB | | | Urine | SHAUNA = 200 ng/mLTesting | | | | | | performed at [facility];8 | | | | | | [address];[place] | | | | | | [address] | | | | + + + + + + | Benzodiazep | NEGATIVEComment: | | EXTERNAL | | | aura | Positive cutoff for | | LAB | | | Screen, | BENZO = 200 ng/mLTesting | | | | | Urine | performed at [facility];8 | | | | | | [address];[place] | | | | | | [address] | | | | + + + + + + | Cocaine | NEGATIVEComment: | | EXTERNAL | | | | Positive cutoff for | | LAB | | | | MARYAM = 300 ng/mLTesting | | | | | | performed at [facility];[address] | | | | | | [address];[place] | | | | | | [address] | | | | + + + + + + | Methadone | NEGATIVEComment: | | EXTERNAL | | | | Positive cutoff for | | LAB | | | | MTD = 300 ng/mLTesting | | | | | | performed at [facility];[address] | | | | | | [address];[place] | | | | | | [address] | | | | + + + + + + | Opiates | POSITIVE (A)Comment: | | EXTERNAL | | | | Positive cutoff for | | LAB | | | | OPI = 300 ng/mLTesting | | | | | | performed at [facility];[address] | | | | | | [address];[place] | | | | | | [address] | | | | + + + + + + | PCP | NEGATIVEComment: | | EXTERNAL | | | | Positive cutoff for PCP | | LAB | | | | = 25 ng/mLTesting | | | | | | performed at [facility];[address] | | | | | | [address];[place] | | | | | | [address] | | | | + + + + + + | Cannabinoid | NEGATIVEComment: | | EXTERNAL | | [...] | | | | | performed at [facility];[address] | | | | | | [facility];[place], [place] | | | | | | [address] | | | | + + + + + + + + | Specimen | + + | | + + + +---------+ + + | Performing | Address | City/State/Zipcode | Phone Number | | Organization | | | | + +---------+ + + | EXTERNAL LAB | | | | + +---------+ + + Hemoglobin and Hematocrit (01/11/2015 12:09 PM PDT) + + + + + + | Component | Value | Ref Range | Performed | Pathologist | | | | | At | Signature | + + + + + + | Hemoglobin | 10.3 (L)Comment: Testing | 11.3 - 15.5 | EXTERNAL | | | | performed at [facility];888 | g/dL | LAB | | | | [address];[place] | | | | | | [address] | | | | + + + + + + | Hematocrit, | 31.2 (L)Comment: Testing | 34.0 - 46.0 % | EXTERNAL | | | POC | performed at [facility];[address] | | LAB | | | | [address];[place] | | | | | | [address] | | | | + + + + + + + + | Specimen | + + | | + + + +---------+ + + | Performing | Address | City/State/Zipcode | Phone Number | | Organization | | | | + +---------+ + + | EXTERNAL LAB | | | | + +---------+ + + Iron and Iron Binding Capacity (01/11/2015 12:06 PM PDT) + + + + + + | Component | Value | Ref Range | Performed | Pathologist | | | | | At | Signature | + + + + + + | Iron | 35Comment: Testing | 30 - 180 ug/dL | EXTERNAL | | | | performed at [facility], [address] | | LAB | | | | [address], | | | | | | [place] [address] | | | | + + + + + + | TIBC | 282Comment: Testing | 260 - 490 ug/dL | EXTERNAL | | | | performed at [facility], [address] | | LAB | | | | [address], | | | | | | [place] [address] | | | | + + + + + + | Iron | 12 (L)Comment: Testing | 15 - 50 % | EXTERNAL | | | Saturation | performed at [facility], [address] | | LAB | | | [address], | | | | | | [place] [address] | | | | + + + + + + + + | Specimen | + + | Blood specimen | | (specimen) | + + + +---------+ + + | Performing | Address | City/State/Zipcode | Phone Number | | Organization | | | | + +---------+ + + | EXTERNAL LAB | | | | + +---------+ + + Retic Count (01/11/2015 12:06 PM PDT) + + + + + + | Component | Value | Ref Range | Performed | Pathologist | | | | | At | Signature | + + + + + + | % | 1.5Comment: Testing | 0.4 - 2.7 % | EXTERNAL | | | Reticulocyt | performed at [facility], [address] | | LAB | | | e Count | [address], | | | | | | [place] [address] | | | | + + + + + + + + | Specimen | + + | Blood specimen | | (specimen) | + + + +---------+ + + | Performing | Address | City/State/Zipcode | Phone Number | | Organization | | | | + +---------+ + + | EXTERNAL LAB | | | | + +---------+ + + Folate (01/11/2015 12:06 PM PDT) + + + + + + | Component | Value | Ref Range | Performed | Pathologist | | | | | At | Signature | + + + + + + | Folate | 10.7Comment: Testing | ng/mL | EXTERNAL | | | | performed at [facility], [address] | | LAB | | | | [address], | | | | | | [place] [address] | | | | + + + + + + + + | Specimen | + + | Blood specimen | | (specimen) | + + + +---------+ + + | Performing | Address | City/State/Zipcode | Phone Number | | Organization | | | | + +---------+ + + | EXTERNAL LAB | | | | + +---------+ + + Ferritin (01/11/2015 12:06 PM PDT) + + + + + + | Component | Value | Ref Range | Performed | Pathologist | | | | | At | Signature | + + + + + + | Ferritin, | 115Comment: Testing | 6 - 170 ng/mL | EXTERNAL | | | External | performed at [facility], [address] | | LAB | | | | [address], | | | | | | [place] [address] | | | | + + + + + + + + | Specimen | + + | Blood specimen | | (specimen) | + + + +---------+ + + | Performing | Address | City/State/Zipcode | Phone Number | | Organization | | | | + +---------+ + + | EXTERNAL LAB | | | | + +---------+ + + Vitamin B-12 (01/11/2015 12:06 PM PDT) + + + + + + | Component | Value | Ref Range | Performed | Pathologist | | | | | At | Signature | + + + + + + | VITAMIN | 715Comment: Testing | 254 - 1,320 | EXTERNAL | | | B-12 | performed at [facility], [address] | pg/mL | LAB | | | | [address], | | | | | | [place] [address] | | | | + + + + + + + + | Specimen | + + | Blood specimen | | (specimen) | + + + +---------+ + + | Performing | Address | City/State/Zipcode | Phone Number | | Organization | | | | + +---------+ + + | EXTERNAL LAB | | | | + +---------+ + + Protime INR (01/11/2015 7:40 AM PDT) + + + + + [...] | | | | | performed at [facility];[address] | | | | | | [address] [facility];[place], [place] | | | | | | [address] | | | | + + + [...] + +---------+ + + External Lab: CBC (01/11/2015 7:40 AM PDT) + + + + + + | Component | Value | Ref Range | Performed | Pathologist | | | | | At | Signature | + + + + + + | WBC | 11.42 (H)Comment: | 3.80 - 11.00 | EXTERNAL | | | | Testing performed at | K/uL | LAB | | | | [facility], [address] | | | | | | [place] | | | | | | [address] | | | | + + + + + + | Red Blood | 3.57 (L)Comment: Testing | 3.70 - 5.10 | EXTERNAL | | | Cells | performed at [facility], [address] | M/uL | LAB | | | Counted | [address], | | | | | | [place] [address] | | | | + + + + + + | Hemoglobin | 10.6 (L)Comment: Testing | 11.3 - 15.5 | EXTERNAL | | | | performed at [facility], [address] | g/dL | LAB | | | | [address], | | | | | | [place] [address] | | | | + + + + + + | Hematocrit, | 33.0 (L)Comment: Testing | 34.0 - 46.0 % | EXTERNAL | | | POC | performed at [facility], [address] | | LAB | | | | [address], | | | | | | [place] [address] | | | | + + + + + + | MCV | 92.5Comment: Testing | 80.0 - 100.0 fl | EXTERNAL | | | | performed at [facility], [address] | | LAB | | | [address], | | | | | | [place] [address] | | | | + + + + + + | MCH | 29.8Comment: Testing | 27.0 - 34.0 pg | EXTERNAL | | | | performed at [facility], [address] | | LAB | | | | [address], | | | | | | [place] [address] | | | | + + + + + + | MCHC | 32.2Comment: Testing | 32.0 - 35.5 | EXTERNAL | | | | performed at [facility], [address] | g/dL | LAB | | | | [address], | | | | | | [place] [address] | | | | + + + + + + | RDW-CV | 46.4Comment: Testing | 37 - 53 fl | EXTERNAL | | | | performed at [facility], [address] | | LAB | | | | [address], | | | | | | [place] [address] | | | | + + + + + + | Platelet | 184Comment: Testing | 150 - 400 K/uL | EXTERNAL | | | Count | performed at [facility], [address] | | LAB | | | Plasma | [address], | | | | | | [place] [address] | | | | + + + + + + | MPV | 8.9Comment: Testing | fl | EXTERNAL | | | | performed at [facility], [address] | | LAB | | | | [address], | | | | | | [place] [address] | | | | + + + + + + | Differentia | AUTOMATEDComment: | | EXTERNAL | | | l Type | Testing performed at | | LAB | | | | [facility], [address] | | | | | | [place] | | | | | | [address] | | | | + + + + + + | % Segmented | 68.68Comment: Testing | % | EXTERNAL | | | | performed at [facility], [address] | | LAB | | | Neutrophils | [address], | | | | | | [place] [address] | | | | + + + + + + | % | 18.26Comment: Testing | % | EXTERNAL | | | Lymphocytes | performed at [facility], [address] | | LAB | | | | [address], | | | | | | [place] [address] | | | | + + + + + + | % Monocytes | 8.60Comment: Testing | % | EXTERNAL | | | | performed at [facility], [address] | | LAB | | | | [address], | | | | | | [place] [address] | | | | + + + + + + | % | 4.07Comment: Testing | % | EXTERNAL | | | Eosinophils | performed at [facility], [address] | | LAB | | | | [address], | | | | | | [place] [address] | | | | + + + + + + | % Basophils | 0.39Comment: Testing | % | EXTERNAL | | | | performed at [facility], [address] | | LAB | | | | [address], | | | | | | [place] [address] | | | | + + + + + + | Absolute | 7.84 (H)Comment: Testing | 1.90 - 7.40 | EXTERNAL | | | Segmented | performed at [facility], [address] | K/uL | LAB | | | Neutrophils | [address], | | | | | | [place] [address] | | | | + + + + + + | Absolute | 2.08Comment: Testing | 1.00 - 3.90 | EXTERNAL | | | Lymphocytes | performed at [facility], [address] | K/uL | LAB | | | | [address], | | | | | | [place] [address] | | | | + + + + + + | Absolute | 0.98 (H)Comment: Testing | 0.00 - 0.80 | EXTERNAL | | | Monocytes | performed at [facility], [address] | K/uL | LAB | | | | [address], | | | | | | [place] [address] | | | | + + + + + + | Absolute | 0.47Comment: Testing | 0.00 - 0.50 | EXTERNAL | | | Eosinophils | performed at [facility], [address] | K/uL | LAB | | | | [address], | | | | | | [place] [address] | | | | + + + + + + | Absolute | 0.05Comment: Testing | 0.00 - 0.10 | EXTERNAL | | | Basophils | performed at [facility], [address] | K/uL | LAB | | | | [address], | | | | | | [place] [address] | | | | + + + + + + + + | Specimen | + + | Blood specimen | | (specimen) | + + + +---------+ + + | Performing | Address | City/State/Zipcode | Phone Number | | Organization | | | | + +---------+ + + | EXTERNAL LAB | | | | + +---------+ + + Phosphorus (01/11/2015 7:40 AM PDT) + + + + + + | Component | Value | Ref Range | Performed | Pathologist | | | | | At | Signature | + + + + + + | PHOSPHORUS | 1.8 (L)Comment: Testing | 2.3 - 4.8 mg/dL | EXTERNAL | | | | performed at [facility];[address] | | LAB | | | | [address];[place], [place] | | | | | | [address] | | | | + + + + + + + + | Specimen | + + | Blood specimen | | (specimen) | + + + +---------+ + + | Performing | Address | City/State/Zipcode | Phone Number | | Organization | | | | + +---------+ + + | EXTERNAL LAB | | | | + +---------+ + + Magnesium (01/11/2015 7:40 AM PDT) + + + + + + | Component | Value | Ref Range | Performed | Pathologist | | | | | At | Signature | + + + + + + | Magnesium | 1.7Comment: Testing | 1.7 - 2.4 mg/dL | EXTERNAL | | | | performed at [facility];[address] | | LAB | | | | [address];[place], [place] | | | | | | [address] | | | | + + + + + + + + | Specimen | + + | Blood specimen | | (specimen) | + + + +---------+ + + | Performing | Address | City/State/Zipcode | Phone Number | | Organization | | | | + +---------+ + + | EXTERNAL LAB | | | | + +---------+ + + Hemoglobin A1C (01/11/2015 7:40 AM PDT) + + + + + + | Component | Value | Ref Range | Performed | Pathologist | | | | | At | Signature | + + + + + + | Hemoglobin | 5.5Comment: The Palestinian | 4.0 - 6.0 % | EXTERNAL | | | A1c | Diabetes Association | | LAB | | | | considers a hemoglobin | | | | | | A1c result of <7.0% to | | | | | | be the goal of diabetic | | | | | | therapy. When results | | | | | | are consistently >8.0%, | | | | | | the ADA suggests | | | | | | reevaluation of the | | | | | | treatment regimen. The | | | | | | testing method used is | | | | | | certified traceable to | | | | | | the Diabetes Control and | | | | | | Complications Trial | | | | | | reference method.Testing | | | | | | performed at [facility], [address] | | | | | [address], | | | | | | [place] [address] | | | | + + + + + + | Glycohemogl | 111Comment: The ADA | mg/dL | EXTERNAL | | | obin | considers an eAG result | | LAB | | | (GHb),Total | of LT 154 mg/dL to be | | | | | | the goal of diabetic | | | | | | therapy. Estimated | | | | | | Average Glucose | | | | | | calculated from | | | | | | hemoglobin A1c by use of | | | | | | the ADA recommended | | | | | | formula.Testing | | | | | | performed at [facility], [address] | | | | | | [facility], | | | | | | [place] [address] | | | | + + + [...] + +---------+ + + Comprehensive Metabolic Panel (01/11/2015 7:40 AM PDT) + + + + + + | Component | Value | Ref Range | Performed | Pathologist | | | | | At | Signature | + + + + + + | Na | 141Comment: Testing | 135 - 143 | EXTERNAL | | | | performed at [facility];[address] | mmol/L | LAB | | | | [address];[place] | | | | | | [address] | | | | + + + + + + | K | 3.7Comment: Testing | 3.5 - 4.9 | EXTERNAL | | | | performed at [facility];[address] | mmol/L | LAB | | | | [address];[place] | | | | | | [address] | | | | + + + + + + | Cl | 112 (H)Comment: Testing | 99 - 109 mmol/L | EXTERNAL | | | | performed at [facility];[address] | | LAB | | | | [address];[place] | | | | | | [address] | | | | + + + + + + | CO2 | 22 (L)Comment: Testing | 23 - 32 mmol/L | EXTERNAL | | | | performed at [facility];[address] | | LAB | | | | [address];[place] | | | | | | [address] | | | | + + + + + + | Anion Gap | 11Comment: Testing | 5 - 20 mmol/L | EXTERNAL | | | | performed at [facility];[address] | | LAB | | | | [address];[place] | | | | | | [address] | | | | + + + + + + | Glucose, | 92Comment: Testing | 65 - 99 mg/dL | EXTERNAL | | | Fasting | performed at [facility];[address] | | LAB | | | | [address];[place] | | | | | | [address] | | | | + + + + + + | BUN | 18Comment: Testing | 8 - 25 mg/dL | EXTERNAL | | | | performed at [facility];[address] | | LAB | | | | [address];[place] | | | | | | [address] | | | | + + + + + + | Creatinine | 0.97Comment: Testing | 0.50 - 1.00 | EXTERNAL | | | | performed at [facility];[address] | mg/dL | LAB | | | | [address];[place] | | | | | | [address] | | | | + + + + + + | BUN/Creatin | 19Comment: Testing | | EXTERNAL | | | ine Ratio | performed at [facility];[address] | | LAB | | | | [address];[place] | | | | | | [address] | | | | + + + + + + | Calcium | 7.7 (L)Comment: Testing | 8.5 - 10.5 | EXTERNAL | | | | performed at [facility];[address] | mg/dL | LAB | | | | [address];[place] | | | | | | [address] | | | | + + + + + + | Protein, | 7.2Comment: Testing | 6.3 - 8.2 g/dL | EXTERNAL | | | Total | performed at [facility];[address] | | LAB | | | | [address];[place] | | | | | | [address] | | | | + + + + + + | Albumin | 2.7 (L)Comment: Testing | 3.6 - 5.0 g/dL | EXTERNAL | | | | performed at [facility];[address] | | LAB | | | | [address];[place] | | | | | | [address] | | | | + + + + + + | Globulin | 4.5Comment: Testing | 1.3 - 4.9 g/dL | EXTERNAL | | | | performed at [facility];[address] | | LAB | | | | [address];[place] | | | | | | [address] | | | | + + + + + + | A/G Ratio | 0.6 (L)Comment: Testing | 1.0 - 2.4 | EXTERNAL | | | | performed at [facility];[address] | | LAB | | | | [address];[place] | | | | | | [address] | | | | + + + + + + | Bilirubin | 1.0Comment: Testing | 0.1 - 1.5 mg/dL | EXTERNAL | | | Total | performed at [facility];[address] | | LAB | | | | [address];[place] | | | | | | [address] | | | | + + + + + + | ALP, | 100Comment: Testing | 35 - 115 U/L | EXTERNAL | | | External | performed at [facility];[address] | | LAB | | | | [address];[place] | | | | | | [address] | | | | + + + + + + | AST | 311 (H)Comment: Testing | 10 - 45 U/L | EXTERNAL | | | | performed at [facility];[address] | | LAB | | | | [address];[place] | | | | | | [address] | | | | + + + + + + | ALT | 236 (H)Comment: Testing | 10 - 65 U/L | EXTERNAL | | | | performed at [facility];[address] | | LAB | | | | [address];[place] | | | | | | [address] | | | | + + + [...] | | | | | | at [facility];[address];[place] [address] | | | | + + + + + + + + | Specimen | + + | Blood specimen | | (specimen) | + + + +---------+ + + | Performing | Address | City/State/Zipcode | Phone Number | | Organization | | | | + +---------+ + + | EXTERNAL LAB | | | | + +---------+ + + Hemoglobin and Hematocrit (01/11/2015 12:01 AM PDT) + + + + + + | Component | Value | Ref Range | Performed | Pathologist | | | | | At | Signature | + + + + + + | Hemoglobin | 10.6 (L)Comment: Testing | 11.3 - 15.5 | EXTERNAL | | | | performed at [facility];888 | g/dL | LAB | | | | [address];[place] | | | | | | [address] | | | | + + + + + + | Hematocrit, | 32.4 (L)Comment: Testing | 34.0 - 46.0 % | EXTERNAL | | | POC | performed at [facility];[address] | | LAB | | | | [address];[place] | | | | | | [address] | | | | + + + + + + + + | Specimen | + + | | + + + +---------+ + + | Performing | Address | City/State/Zipcode | Phone Number | | Organization | | | | + +---------+ + + | EXTERNAL LAB | | | | + +---------+ + + HISTORICAL MICROBIOLOGY RESULT (01/10/2015 9:11 PM PDT) + + | Specimen | + + | Stool specimen | | (specimen) | + + + + + | Narrative | Performed At | + + + | Toxigenic C Difficile NEGATIVE Testing | EXTERNAL LAB | | performed at [facility];[address] [place] [address];[place] [address] 027 NAP1 BI | | | 027 NAP1 BI PRESUMPTIVE NEGATIVE | | | Detection of 027 NAP1 BI strains of C. difficile is presumptive and | | | for epidemiological purposes and not intended to guide or monitor | | | treatment for C. difficile infections. Testing performed at [facility];[address] | | | [facility];[place] [address] | | + + + + +---------+ + + | Performing | Address | City/State/Zipcode | Phone Number | | Organization | | | | + +---------+ + + | EXTERNAL LAB | | | | + +---------+ + + US Pelvis Limited (01/10/2015 7:57 PM PDT) + + | Specimen | + + | | + + + + + | Impressions | Performed At | + + + | FINDINGS/IMPRESSION: The bladder has a prevoid volume of 295 mL and | | | a post void volume of 89 mL which is greater than expected for a | | | 54-year-old female. 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 | | | No bladder mass or bladder stone is seen. Bilateral ureteral jets | | | are noted. Electronically signed by Monroe Gonzalez DO on | | | 01/10/2015 8:01 PM | | + + + + + + | Narrative | Performed At | + + + | NOHEMI ESPITIA BLADDER 01/10/2015 7:57 PM HISTORY: 54 | | | years. Female. Difficulty emptying bladder. Assess for | | | obstructive uropathy. TECHNIQUE: Imaging was performed using a 4 | | | MHz curved array transducer. COMPARISON: None. | | + + + + + | Procedure Note | + + | Nikita Hearn Conversion - 01/17/2019 12:26 AM PDT NOHEMI CHRISTOPHER BLADDER01/10/2015 7:57 | | PM HISTORY:54 years. Female. Difficulty emptying bladder. Assess for obstructive | | uropathy. TECHNIQUE:Imaging was performed using a 4 MHz curved array transducer. | | COMPARISON:None. IMPRESSION: FINDINGS/IMPRESSION:The bladder has a prevoid volume of 295 | | mL and a post void volume of 89 mL which is greater than expected for a 54-year-old | | female. 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 No bladder mass or bladder | | stone is seen. Bilateral ureteral jets are noted. | |Imaging was performed using a 4 MHz curved array transducer. | | | |COMPARISON: | |None. | | | |IMPRESSION: | |FINDINGS/IMPRESSION: | |The bladder has a prevoid volume of 295 mL and a post void volume of 89 mL which is greater than expected for a 54-year-old female. 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 No bladder mass or bladder stone is seen. Bilateral ureteral jets are | |noted. | | | | | + + US Abdomen Complete (01/10/2015 7:57 PM PDT) + + | Specimen | + + | | + + + + + | Impressions | Performed At | + + + | 1. Very limited study due to body habitus and bowel gas. 2. The | | | gallbladder is surgically absent. 3. Kidneys, spleen, liver and | | | IVC appear grossly normal in size but are poorly visualized. 4. | | | Common bile duct and pancreas were not visualized. 5. Proximal | | | aorta normal in caliber. Mid to distal portion could not be | | | visualized. Electronically signed by Monroe Gonzalez DO on | | | 01/10/2015 8:08 PM | | + + + + + + | Narrative | Performed At | + + + | NOHEMI ESPITIA US ABDOMEN COMPLETE 01/10/2015 7:57 PM HISTORY: | | | 54 years. Female. Abdominal pain. Acute renal failure. | | | Elevated serum liver and signs. Hepatitis C. TECHNIQUE: | | | Imaging was performed using a curved array transducer. Grayscale and | | | color flow techniques were utilized. The exam is very limited due | | | to patient body habitus bowel gas. COMPARISON: None. | | | FINDINGS: Pancreas: Poorly visualized. Aorta: Normal with the | | | proximal portion is visualized. It is normal in caliber measuring | | | 2.4 cm. IVC: Grossly normal in caliber, but poorly visualized. | | | Liver: Poorly visualized due to bowel gas and body habitus. Portal | | | Vein: Normal direction of flow and waveform. Hepatic Veins: Normal | | | direction of flow and waveform. Gallbladder: Surgically absent. | | | Common bile duct: Not visualized. Right Kidney: 11.9 x 5.2 x 5.0 | | | cm. Poorly visualized. No hydronephrosis noted. Left Kidney: | | | 11.5 x 5.5 x 4.5 cm. Poorly visualized. No hydronephrosis noted. | | | Spleen: 13.6 x 5.7 x 12.2 cm. Poorly visualized. Peritoneal | | | Findings: No ascites identified. | | + + + + -+ | Procedure Note | + -+ | Dhiraj, Rad Conversion - 01/17/2019 12:26 AM PDT NOHEMI CHRISTOPHER ABDOMEN | | COMPLETE01/10/2015 7:57 PM HISTORY:54 years. Female. Abdominal pain. Acute renal | | failure. Elevated serum liver and signs. Hepatitis C. TECHNIQUE:Imaging was performed | | using a curved array transducer. Grayscale and color flow techniques were utilized. | | The exam is very limited due to patient body habitus bowel gas. COMPARISON:None. | | FINDINGS:Pancreas: Poorly visualized. Aorta: Normal with the proximal portion is | | visualized. It is normal in caliber measuring 2.4 cm. IVC: Grossly normal in caliber, | | but poorly visualized. Liver: Poorly visualized due to bowel gas and body habitus.Portal | | Vein: Normal direction of flow and waveform.Hepatic Veins: Normal direction of flow and | | waveform. Gallbladder: Surgically absent. Common bile duct: Not visualized. Right | | Kidney: 11.9 x 5.2 x 5.0 cm. Poorly visualized. No hydronephrosis noted.Left Kidney: | | 11.5 x 5.5 x 4.5 cm. Poorly visualized. No hydronephrosis noted. Spleen: 13.6 x 5.7 x | | 12.2 cm. Poorly visualized. Peritoneal Findings: No ascites identified. IMPRESSION: 1. | | Very limited study due to body habitus and bowel gas.2. The gallbladder is surgically | | absent.3. Kidneys, spleen, liver and IVC appear grossly normal in size but are poorly | | visualized.4. Common bile duct and pancreas were not visualized.5. Proximal aorta | | normal in caliber. Mid to distal portion could not be visualized. | |IVC: Grossly normal in caliber, but poorly visualized. | | | |Liver: Poorly visualized due to bowel gas and body habitus. | |Portal Vein: Normal direction of flow and waveform. | |Hepatic Veins: Normal direction of flow and waveform. | | | |Gallbladder: Surgically absent. | | | |Common bile duct: Not visualized. | | | |Right Kidney: 11.9 x 5.2 x 5.0 cm. Poorly visualized. No hydronephrosis noted. | |Left Kidney: 11.5 x 5.5 x 4.5 cm. Poorly visualized. No hydronephrosis noted. | | | |Spleen: 13.6 x 5.7 x 12.2 cm. Poorly visualized. | | | |Peritoneal Findings: No ascites identified. | | | |IMPRESSION: | |1. Very limited study due to body habitus and bowel gas. | |2. The gallbladder is surgically absent. | |3. Kidneys, spleen, liver and IVC appear grossly normal in size but are poorly visualized. | |4. Common bile duct and pancreas were not visualized. | |5. Proximal aorta normal in caliber. Mid to distal portion could not be visualized. | | | | | + -+ Hemoglobin and Hematocrit (01/10/2015 6:19 PM PDT) + + + + + + | Component | Value | Ref Range | Performed | Pathologist | | | | | At | Signature | + + + + + + | Hemoglobin | 11.3Comment: Testing | 11.3 - 15.5 | EXTERNAL | | | | performed at [facility];[address] | g/dL | LAB | | | | [facility];[place], [place] | | | | | | [address] | | | | + + + + + + | Hematocrit, | 34.4Comment: Testing | 34.0 - 46.0 % | EXTERNAL | | | POC | performed at [facility];[address] | | LAB | | | | [address];[place], [place] | | | | | | [address] | | | | + + + + + + + + | Specimen | + + | | + + + +---------+ + + | Performing | Address | City/State/Zipcode | Phone Number | | Organization | | | | + +---------+ + + | EXTERNAL LAB | | | | + +---------+ + + Eosinophil Smear, Urine (01/10/2015 5:15 PM PDT) + + + + + + | Component | Value | Ref Range | Performed | Pathologist | | | | | At | Signature | + + + + + + | Eosinophils | NO EOSINOPHILS | % | EXTERNAL | | | , Urine | SEENComment: Testing | | LAB | | | | performed at [facility], [address] | | | | | | [address], | | | | | | [place] [address] | | | | + + + + + + + + | Specimen | + + | | + + + +---------+ + + | Performing | Address | City/State/Zipcode | Phone Number | | Organization | | | | + +---------+ + + | EXTERNAL LAB | | | | + +---------+ + + Urinalysis, Reflex Microscopic and/or Culture (01/10/2015 5:15 PM PDT) + + + + + + | Component | Value | Ref Range | Performed | Pathologist | | | | | At | Signature | + + + + + + | Color | YELLOWComment: Testing | | EXTERNAL | | | | performed at [facility], [address] | | LAB | | | | [address], | | | | | | [place] [address] | | | | + + + + + + | Clarity | CLEARComment: Testing | | EXTERNAL | | | | performed at [facility], [address] | | LAB | | | | [address], | | | | | | [place] [address] | | | | + + + + + + | Specific | 1.017Comment: Testing | 1.002 - 1.030 | EXTERNAL | | | [place], | performed at [facility], [address] | | LAB | | | Urine | [address], | | | | | | [place] [address] | | | | + + + + + + | Leukocyte | NEGATIVEComment: Testing | | EXTERNAL | | | Esterase, | performed at [facility], [address] | | LAB | | | Urine | [address], | | | | | | [place] [address] | | | | + + + + + + | Nitrite, | NEGATIVEComment: Testing | | EXTERNAL | | | Urine | performed at [facility], [address] | | LAB | | | | [address], | | | | | | [place] [address] | | | | + + + + + + | Urobilinoge | 0.2Comment: Testing | mg/dL | EXTERNAL | | | n, Urine | performed at [facility], [address] | | LAB | | | | [address], | | | | | | [place] [address] | | | | + + + + + + | Protein, | NEGATIVEComment: Testing | mg/dL | EXTERNAL | | | Urine | performed at [facility], [address] | | LAB | | | | [address], | | | | | | [place] [address] | | | | + + + + + + | pH, Urine | 6.0Comment: Testing | 5.0 - 8.0 | EXTERNAL | | | | performed at [facility], [address] | | LAB | | | | [address], | | | | | | [place] [address] | | | | + + + + + + | Blood, | MODERATE (A)Comment: | | EXTERNAL | | | Urine | Testing performed at | | LAB | | | | [facility], [address] | | | | | | [place] | | | | | | [address] | | | | + + + + + + | Ketones | NEGATIVEComment: Testing | mg/dL | EXTERNAL | | | | performed at [facility], [address] | | LAB | | | | [address], | | | | | | [place] [address] | | | | + + + + + + | Bilirubin, | MODERATE (A)Comment: | | EXTERNAL | | | Urine | Testing performed at | | LAB | | | | [facility], [address] | | | | | | [place] | | | | | | [address] | | | | + + + + + + | Glucose, | NEGATIVEComment: Testing | mg/dL | EXTERNAL | | | Urine | performed at [facility], [address] | | LAB | | | | [address], | | | | | | [place] [address] | | | | + + + + + + + + | Specimen | + + | Urine specimen | | (specimen) | + + + +---------+ + + | Performing | Address | City/State/Zipcode | Phone Number | | Organization | | | | + +---------+ + + | EXTERNAL LAB | | | | + +---------+ + + Urinalysis, Microscopic Only (01/10/2015 5:15 PM PDT) + + + + + + | Component | Value | Ref Range | Performed | Pathologist | | | | | At | Signature | + + + + + + | WBC, UA | 1-5Comment: Testing | 0 - 5 /hpf | EXTERNAL | | | | performed at [facility], [address] | | LAB | | | | [address], | | | | | | [place], [place] [address] | | | | + + + + + + | RBC, UA | 1-5Comment: Testing | 0 - 5 /hpf | EXTERNAL | | | | performed at [facility], [address] | | LAB | | | | [address], | | | | | | [place] [address] | | | | + + + + + + | Epithelial | 16-25Comment: Testing | /lpf | EXTERNAL | | | Cells | performed at [facility], [address] | | LAB | | | | [address], | | | | | | [place] [address] | | | | + + + + + + | Bacteria, | 1+ (A)Comment: Testing | | EXTERNAL | | | UA | performed at [facility], [address] | | LAB | | | | [address], | | | | | | [place] [address] | | | | + + + + + + | HYALINE | 0-2Comment: Testing | | EXTERNAL | | | CASTS UA | performed at [facility], [address] | | LAB | | | | [address], | | | | | | [place] [address] | | | | + + + + + + + + | Specimen | + + | | + + + +---------+ + + | Performing | Address | City/State/Zipcode | Phone Number | | Organization | | | | + +---------+ + + | EXTERNAL LAB | | | | + +---------+ + + Type and Screen (01/10/2015 10:25 AM PDT) + + + + + [...] | | LAB | | | [address];[place] [address] | | | | + + + + + + | Antibody | NEGATIVE | | EXTERNAL | | | Screen | | | LAB | | + + + + + + | Antibody | Testing performed at | | EXTERNAL | | | Screen | [facility];[address] | | LAB | | | | [address];[place] [address] | | | | + + + + + + | BB BAND | [id number] | | EXTERNAL | | | | | | LAB | | + + + + + + | BB BAND | Testing performed at | | EXTERNAL | | | | [facility];[address] | | LAB | | | | [address];[place] [address] | | | | + + + + + + + + | Specimen | + + | Blood specimen | | (specimen) | + + + +---------+ + + | Performing | Address | City/State/Zipcode | Phone Number | | Organization | | | | + +---------+ + + | EXTERNAL LAB | | | | + +---------+ + + Culture, Urine (01/10/2015 10:21 AM PDT) + + | Specimen | + + | Urine specimen | | (specimen) | + + + + + | Narrative | Performed At | + + + | Specimen Description URINE,CLEAN CATCH CULTURE | EXTERNAL LAB | | 50,000 TO 100,000 CFU/ML | | | MIXED GRAM POSITIVE | | | AND GRAM NEGATIVE COURT | | | NO FURTHER WORKUP | | | Testing performed at [facility], [address], | | | [place] [address] | | + + + + +---------+ + + | Performing | Address | City/State/Zipcode | Phone Number | | Organization | | | | + +---------+ + + | EXTERNAL LAB | | | | + +---------+ + + Sodium, Urine, Random (01/10/2015 10:21 AM PDT) + + + + + + | Component | Value | Ref Range | Performed | Pathologist | | | | | At | Signature | + + + + + + | Sodium, | 42 (L)Comment: Testing | 90 - 104 mmol/L | EXTERNAL | | | Urine | performed at [facility], [address] | | LAB | | | Random | [address], | | | | | | [place] [address] | | | | + + + + + + + + | Specimen | + + | Urine specimen | | (specimen) | + + + +---------+ + + | Performing | Address | City/State/Zipcode | Phone Number | | Organization | | | | + +---------+ + + | EXTERNAL LAB | | | | + +---------+ + + Urinalysis, Microscopic Only (01/10/2015 10:21 AM PDT) + + + + + + | Component | Value | Ref Range | Performed | Pathologist | | | | | At | Signature | + + + + + + | WBC, UA | 16-25Comment: Testing | 0 - 5 /hpf | EXTERNAL | | | | performed at [facility];[address] | | LAB | | | | [address];[place] | | | | | | [address] | | | | + + + + + + | RBC, UA | 0-2Comment: Testing | 0 - 5 /hpf | EXTERNAL | | | | performed at [facility];[address] | | LAB | | | | [address];[place] | | | | | | [address] | | | | + + + + + + | Epithelial | 50-100Comment: Testing | /lpf | EXTERNAL | | | Cells | performed at [facility];[address] | | LAB | | | | [address];[place] | | | | | | [address] | | | | + + + + + + | Bacteria, | 3+ (A)Comment: Testing | | EXTERNAL | | | UA | performed at [facility];[address] | | LAB | | | | [address];[place] | | | | | | [address] | | | | + + + + + + | CASTS | 16-25Comment: FINE | /lpf | EXTERNAL | | | | GRANULARTesting | | LAB | | | | performed at [facility];[address] | | | | | | [address];[place] | | | | | | [address] | | | | + + + + + + + + | Specimen | + + | Urine specimen | | (specimen) | + + + +---------+ + + | Performing | Address | City/State/Zipcode | Phone Number | | Organization | | | | + +---------+ + + | EXTERNAL LAB | | | | + +---------+ + + XR Abd Supine and Upright w 1 Vw Chest (01/10/2015 9:56 AM PDT) + + | Specimen | + + | | + + + + + | Impressions | Performed At | + + + | 1. Nonspecific paucity of small bowel gas. No definite findings to | | | suggest obstruction. 2. Other findings, as above | | | | | + + + + + + | Narrative | Performed At | + + + | NOHEMI ESPITIA 1960 XR ABDOMEN ACUTE SERIES 01/10/2015 9:56 | | | AM INDICATION: Abdominal pain COMPARISON: Ultrasound abdomen | | | 10/08/2013, chest radiograph 09/14/2014 TECHNIQUE: Abdominal series, | | | 3 views, single AP view of the chest, 2 views of the abdomen | | | FINDINGS: Heart size is normal. There is minimal left lower lobe | | | atelectasis. No pleural effusion or pneumothorax. There is a paucity | | | of small bowel gas, nonspecific. Both fluid and gas is seen within | | | nondilated loops of colon. No pneumatosis or pneumoperitoneum. There | | | is a 9.4 mm calcific density which projects over the left iliac wing | | | which is indeterminate. This may reflect a bone island vs. calcified | | | diverticulum. There are calcific densities within the pelvis measuring | | | 2 to 3 mm, likely small pelvic phleboliths. There is degenerative | | | disc disease of the lumbar spine. Surgical clips are seen within the | | | right upper quadrant. | | + + + + + | Procedure Note | + + | Dhiraj, Rad Conversion - 01/17/2019 12:26 AM PDT NOHEMI ESPITIA1960XR ABDOMEN | | ACUTE SERIES01/10/2015 9:56 AM INDICATION: Abdominal pain COMPARISON: Ultrasound abdomen | | 10/08/2013, chest radiograph 09/14/2014 TECHNIQUE: Abdominal series, 3 views, single AP | | view of the chest, 2 views of the abdomen FINDINGS: Heart size is normal. There is | | minimal left lower lobe atelectasis. No pleural effusion or pneumothorax. There is a | | paucity of small bowel gas, nonspecific. Both fluid and gas is seen within nondilated | | loops of colon. No pneumatosis or pneumoperitoneum. There is a 9.4 mm calcific density | | which projects over the left iliac wing which is indeterminate. This may reflect a bone | | island vs. calcified diverticulum. There are calcific densities within the pelvis | | measuring 2 to 3 mm, likely small pelvic phleboliths. There is degenerative disc disease | | of the lumbar spine. Surgical clips are seen within the right upper quadrant. | | IMPRESSION: 1. Nonspecific paucity of small bowel gas. No definite findings to suggest | | obstruction.2. Other findings, as above Electronically signed by Jack Fabian MD on | | 01/10/2015 10:01 AM | | | |IMPRESSION: | |1. Nonspecific paucity of small bowel gas. No definite findings to suggest obstruction. | |2. Other findings, as above | | | | | + + Protime INR (01/10/2015 9:03 AM PDT) + + + + + [...] | | | | | performed at [facility] | | | | | | [facility];[place], [place] | | | | | | [address] | | | | + + + [...] + +---------+ + + External Lab: CBC (01/10/2015 9:03 AM PDT) + + + + + + | Component | Value | Ref Range | Performed | Pathologist | | | | | At | Signature | + + + + + + | WBC | 16.34 (H)Comment: | 3.80 - 11.00 | EXTERNAL | | | | Testing performed at | K/uL | LAB | | | | [facility];[address];[place] [address] | | | | + + + + + + | Red Blood | 4.21Comment: Testing | 3.70 - 5.10 | EXTERNAL | | | Cells | performed at [facility];[address] | M/uL | LAB | | | Counted | [address];[place] | | | | | | [address] | | | | + + + + + + | Hemoglobin | 12.4Comment: Testing | 11.3 - 15.5 | EXTERNAL | | | | performed at [facility];[address] | g/dL | LAB | | | | [address];[place] | | | | | | [address] | | | | + + + + + + | Hematocrit, | 37.6Comment: Testing | 34.0 - 46.0 % | EXTERNAL | | | POC | performed at [facility];[address] | | LAB | | | | [address];[place] | | | | | | [address] | | | | + + + + + + | MCV | 89.4Comment: Testing | 80.0 - 100.0 fl | EXTERNAL | | | | performed at [facility];[address] | | LAB | | | | [address];[place] | | | | | | [address] | | | | + + + + + + | MCH | 29.4Comment: Testing | 27.0 - 34.0 pg | EXTERNAL | | | | performed at [facility];[address] | | LAB | | | | [address];[place] | | | | | | [address] | | | | + + + + + + | MCHC | 32.9Comment: Testing | 32.0 - 35.5 | EXTERNAL | | | | performed at [facility];[address] | g/dL | LAB | | | | [address];[place] | | | | | | [address] | | | | + + + + + + | RDW-CV | 46.4Comment: Testing | 37 - 53 fl | EXTERNAL | | | | performed at [facility];[address] | | LAB | | | | [address];[place] | | | | | | [address] | | | | + + + + + + | Platelet | 251Comment: Testing | 150 - 400 K/uL | EXTERNAL | | | Count | performed at [facility];[address] | | LAB | | | Plasma | [address];[place] | | | | | | [address] | | | | + + + + + + | MPV | 8.3Comment: Testing | fl | EXTERNAL | | | | performed at [facility];[address] | | LAB | | | | [address];[place] | | | | | | [address] | | | | + + + + + + | Differentia | AUTOMATEDComment: | | EXTERNAL | | | l Type | Testing performed at | | LAB | | | | [facility];[address] | | [address];[place] [address] | | | | + + + + + + | % Segmented | 77.07Comment: Testing | % | EXTERNAL | | | | performed at [facility];[address] | | LAB | | | Neutrophils | [address];[place] | | | | | | [address] | | | | + + + + + + | % | 11.95Comment: Testing | % | EXTERNAL | | | Lymphocytes | performed at [facility];[address] | | LAB | | | | [address];[place] | | | | | | [address] | | | | + + + + + + | % Monocytes | 8.49Comment: Testing | % | EXTERNAL | | | | performed at [facility];[address] | | LAB | | | | [address];[place] | | | | | | [address] | | | | + + + + + + | % | 1.48Comment: Testing | % | EXTERNAL | | | Eosinophils | performed at [facility];[address] | | LAB | | | | [address];[place] | | | | | | [address] | | | | + + + + + + | % Basophils | 1.01Comment: Testing | % | EXTERNAL | | | | performed at [facility];[address] | | LAB | | | | [address];[place] | | | | | | [address] | | | | + + + + + + | Absolute | 12.59 (H)Comment: | 1.90 - 7.40 | EXTERNAL | | | Segmented | Testing performed at | K/uL | LAB | | | Neutrophils | [facility];[address] | [address];[place] [address] | | | | + + + + + + | Absolute | 1.95Comment: Testing | 1.00 - 3.90 | EXTERNAL | | | Lymphocytes | performed at [facility];[address] | K/uL | LAB | | | | [address];[place] | | | | | | [address] | | | | + + + + + + | Absolute | 1.39 (H)Comment: Testing | 0.00 - 0.80 | EXTERNAL | | | Monocytes | performed at [facility];[address] | K[address]uL | LAB | | | | [address];[place] | | | | | | [address] | | | | + + + + + + | Absolute | 0.24Comment: Testing | 0.00 - 0.50 | EXTERNAL | | | Eosinophils | performed at [facility];[address] | K[address]L | LAB | | | | [address];[place] | | | | | | [address] | | | | + + + + + + | Absolute | 0.17 (H)Comment: Testing | 0.00 - 0.10 | EXTERNAL | | | Basophils | performed at [facility];[address] | K/uL | LAB | | | | [address];[place], [place] | | | | | | [address] | | | | + + + + + + + + | Specimen | + + | Blood specimen | | (specimen) | + + + +---------+ + + | Performing | Address | City/State/Zipcode | Phone Number | | Organization | | | | + +---------+ + + | EXTERNAL LAB | | | | + +---------+ + + Phosphorus (01/10/2015 9:03 AM PDT) + + + + + + | Component | Value | Ref Range | Performed | Pathologist | | | | | At | Signature | + + + + + + | PHOSPHORUS | 5.3 (H)Comment: Testing | 2.3 - 4.8 mg/dL | EXTERNAL | | | | performed at [facility] | | LAB | | | | [address];[place], [place] | | | | | | [id number] | | | | + + + + + + + + | Specimen | + + | Blood specimen | | (specimen) | + + + +---------+ + + | Performing | Address | City/State/Zipcode | Phone Number | | Organization | | | | + +---------+ + + | EXTERNAL LAB | | | | + +---------+ + + Magnesium (01/10/2015 9:03 AM PDT) + + + + + + | Component | Value | Ref Range | Performed | Pathologist | | | | | At | Signature | + + + + + + | Magnesium | 2.1Comment: Testing | 1.7 - 2.4 mg/dL | EXTERNAL | | | | performed at [facility];888 | | LAB | | | | [address] [facility];[place], [place] | | | | | | [address] | | | | + + + + + + + + | Specimen | + + | Blood specimen | | (specimen) | + + + +---------+ + + | Performing | Address | City/State/Zipcode | Phone Number | | Organization | | | | + +---------+ + + | EXTERNAL LAB | | | | + +---------+ + + Lipase (01/10/2015 9:03 AM PDT) + + + + + + | Component | Value | Ref Range | Performed | Pathologist | | | | | At | Signature | + + + + + + | Lipase | 191Comment: Testing | 73 - 393 U/L | EXTERNAL | | | | performed at [facility];[address] | | LAB | | | | [address];[place], [place] | | | | | | [address] | | | | + + + + + + + + | Specimen | + + | Blood specimen | | (specimen) | + + + +---------+ + + | Performing | Address | City/State/Zipcode | Phone Number | | Organization | | | | + +---------+ + + | EXTERNAL LAB | | | | + +---------+ + + Amylase (01/10/2015 9:03 AM PDT) + + + + + + | Component | Value | Ref Range | Performed | Pathologist | | | | | At | Signature | + + + + + + | Amylase | 54Comment: Testing | 25 - 115 U/L | EXTERNAL | | | | performed at [facility];[address] | | LAB | | | | [address];[place], [place] | | | | | | [address] | | | | + + + [...] + +---------+ + + Comprehensive Metabolic Panel (01/10/2015 9:03 AM PDT) + + + + + + | Component | Value | Ref Range | Performed | Pathologist | | | | | At | Signature | + + + + + + | Na | 140Comment: Testing | 135 - 143 | EXTERNAL | | | | performed at [facility];888 | mmol/L | LAB | | | | [address];[place] | | | | | | [address] | | | | + + + + + + | K | 4.1Comment: Testing | 3.5 - 4.9 | EXTERNAL | | | | performed at [facility];888 | mmol/L | LAB | | | | [address];[place] | | | | | | [address] | | | | + + + + + + | Cl | 109Comment: Testing | 99 - 109 mmol/L | EXTERNAL | | | | performed at [facility];[address] | | LAB | | | | [address];[place] | | | | | | [address] | | | | + + + + + + | CO2 | 19 (L)Comment: Testing | 23 - 32 mmol/L | EXTERNAL | | | | performed at [facility];[address] | | LAB | | | | [address];[place] | | | | | | [address] | | | | + + + + + + | Anion Gap | 16Comment: Testing | 5 - 20 mmol/L | EXTERNAL | | | | performed at [facility];[address] | | LAB | | | | [address];[place] | | | | | | [address] | | | | + + + + + + | Glucose, | 174 (H)Comment: Testing | 65 - 99 mg/dL | EXTERNAL | | | Fasting | performed at [facility];[address] | | LAB | | | | [address];[place] | | | | | | [address] | | | | + + + + + + | BUN | 42 (H)Comment: Testing | 8 - 25 mg/dL | EXTERNAL | | | | performed at [facility];[address] | | LAB | | | | [address];[place] | | | | | | [address] | | | | + + + + + + | Creatinine | 2.6 (H)Comment: Testing | 0.50 - 1.00 | EXTERNAL | | | | performed at [facility];[address] | mg/dL | LAB | | | | [address];[place] | | | | | | [address] | | | | + + + + + + | BUN/Creatin | 16Comment: Testing | | EXTERNAL | | | ine Ratio | performed at [facility];[address] | | LAB | | | | [address];[place] | | | | | | [address] | | | | + + + + + + | Calcium | 9.0Comment: Testing | 8.5 - 10.5 | EXTERNAL | | | | performed at [facility];[address] | mg/dL | LAB | | | | [address];[place] | | | | | | [address] | | | | + + + + + + | Protein, | 8.6 (H)Comment: Testing | 6.3 - 8.2 g/dL | EXTERNAL | | | Total | performed at [facility];[address] | | LAB | | | | [address];[place] | | | | | | [address] | | | | + + + + + + | Albumin | 3.4 (L)Comment: Testing | 3.6 - 5.0 g/dL | EXTERNAL | | | | performed at [facility];[address] | | LAB | | | | [address];[place] | | | | | | [address] | | | | + + + + + + | Globulin | 5.2 (H)Comment: Testing | 1.3 - 4.9 g/dL | EXTERNAL | | | | performed at [facility];[address] | | LAB | | | | [address];[place] | | | | | | [address] | | | | + + + + + + | A/G Ratio | 0.6 (L)Comment: Testing | 1.0 - 2.4 | EXTERNAL | | | | performed at [facility];[address] | | LAB | | | | [address];[place] | | | | | | [address] | | | | + + + + + + | Bilirubin | 0.5Comment: Testing | 0.1 - 1.5 mg/dL | EXTERNAL | | | Total | performed at [facility];[address] | | LAB | | | | [address];[place] | | | | | | [address] | | | | + + + + + + | ALP, | 127 (H)Comment: Testing | 35 - 115 U/L | EXTERNAL | | | External | performed at [facility];[address] | | LAB | | | | [address];[place] | | | | | | [address] | | | | + + + + + + | AST | 382 (H)Comment: Testing | 10 - 45 U/L | EXTERNAL | | | | performed at [facility];[address] | | LAB | | | | [address];[place] | | | | | | [address] | | | | + + + + + + | ALT | 315 (H)Comment: Testing | 10 - 65 U/L | EXTERNAL | | | | performed at [facility];[address] | | LAB | | | | [address];[place] | | | | | | [address] | | | | + + + + + + | Estimated | 20 (L)Comment: GFR <60: | mL/min/1.73m2 | EXTERNAL [...] | | | | | | at [facility];[address] | | | | | | [address];[place] [address] | | | | + + + [...] + | Diagnosis | + + | Acute renal failure, unspecified acute renal failure type (HCC) | + + | Essential hypertension Unspecified essential hypertension | + + | Leukocytosis, unspecified | + + | Metabolic acidosis Acidosis | + + | Hematemesis | + + | Hepatitis C virus infection without hepatic coma, unspecified chronicity | + + | Moderate dehydration Dehydration | + + | Abnormal LFTs Other abnormal blood chemistry | + + | Acute GI bleeding Hemorrhage of gastrointestinal tract, unspecified | + + | COPD (chronic obstructive pulmonary disease) (HCC) Chronic airway obstruction, not | | elsewhere classified | + + | Epigastric abdominal pain Abdominal pain, epigastric | + + | Gastroesophageal reflux disease with esophagitis | + + documented in this encounter
--- OUTSIDE RECORDS SUMMARY | ~2019-10-27 | XMS | Encounter Summary ---
Demographics + + + | Address | [address] | | | [place] [address] | + + + | Home Phone | | + + + | Preferred Language | Unknown | + + + | Marital Status | Single | + + + | Alevism Affiliation | [id number] | + + + | Race | Unknown | + + + | Ethnic Group | Unknown | + + + Author + + + | Author | [facility] | | | and [place] | + + + | Organization | [facility] | | | and [place] [...] Team Providers + +------+ + | Care Cv Rn Name | Role | Phone | + +------+ + | Naren Nina PA-C | PCP | | + +------+ + Encounter Details +--------+ + + + + | Date | Type | Department | Care Team | Description | +--------+ + + + + | 03/17/ | Orders Only | [facility] | HallMaximiliano L, | | | 2013 | | [facility] [address] | DPM [address] | | | | | [address] | [address], | | | | | [place], [place] | [place] [address] | | | | | [address] | [phone] | | | | | [phone] | | | +--------+ + + + [...] | | | | | [place] [address] | | | | | | [phone] | | | | | | | | +--------+---------+ + + + documented as of this encounter Procedures + +--------+ + + + | Procedure Name | Priori | Date/Time | Associated Diagnosis | Comments | | | ty | | | | + +--------+ + + + | XR FOOT RIGHT 3 + VW | Routin | 03/17/2014 | | Results for this | | | e | 10:51 AM | | procedure are in the | | | | PDT | | results section. | + +--------+ + + + documented in this encounter Results XR Foot Right 3 + Vw (03/17/2014 10:51 AM PDT) + + | Specimen | + + | | + + + + + | Impressions | Performed At | + + + | Healing Jacob fracture No evidence of lesser metatarsal stress | | | fracture Electronically signed by Maximiliano Hall DPM on | | | 03/27/2014 12:52 PM | | + + + + + + | Narrative | Performed At | + + + | Radiographic exam: Three weightbearing views of the right foot were | | | taken and reviewed including AP, oblique and lateral views of the | | | foot. History: Female, 54 years of age, concern for stress | | | fracture of the second and third metatarsal Findings: There is | | | been no progressive callus formation at the second or third metatarsal | | | of the right foot. The patient's prior Jacob fracture or fifth | | | metatarsal base fracture continues to heal without incident and there | | | is no evidence of refracture at the site. Otherwise these | | | radiographs are unchanged from prior films | | + + + + + | Procedure Note | + + | Dhiraj, Nikita Conversion - 01/24/2019 9:17 AM PDT Radiographic exam: Three weightbearing | | views of the right foot were taken and reviewed including AP, oblique and lateral views | | of the foot. History: Female, 54 years of age, concern for stress fracture of the second | | and third metatarsal Findings: There is been no progressive callus formation at the | | second or third metatarsal of the right foot. The patient's prior Jacob fracture or | | fifth metatarsal base fracture continues to heal without incident and there is no | | evidence of refracture at the site. Otherwise these radiographs are unchanged from prior | | films IMPRESSION: Healing Jacob fractureNo evidence of lesser metatarsal stress | | fracture | |Healing Jacob fracture | |No evidence of lesser metatarsal stress fracture | | | | | + + documented in this encounter Visit Diagnoses Not on filedocumented in this encounter"
--- OUTSIDE RECORDS SUMMARY | ~2019-10-27 | XMS | Clinical Summary ---
Demographics + + + | Address | [address] | | | [place] [address] | + + + | Home Phone [...] + + + | Author | [facility] | | | and [place] | + + + | Organization | [facility] | | | and [place] [...] Team Providers + +------+ + | Care Global Manager Name | Role | Phone | + +------+ + | Naren Nina PA-C | PCP | | + +------+ + Allergies + [...] | | | | | Comments) Used HEEL STIFFENER | | | | | | and it lowered her | | | | | | BP And medication | | | | | | was stopped Other | | | | | | reaction(s): Other | | | | | | (See Comments) Used | | | | | | HEEL STIFFENER and it lowered | | | | | | her BP And | | | | | | medication was | | | | | | stopped Used HEEL STIFFENER | | | | | | and [...] by mouth | 120 | 1 | 07/ | | Activ | | (NEURONTIN) 300 [...] Take 150 mg by mouth | | 0 | | | Activ | | (WELLBUTRIN XL) 150 | 2 (two) times | | | | | e | | mg 24 hr tablet | daily. Not sure of | | | | | | | | dose | | | | | | + + + +---------+------+------+-------+ | calcium-vitamin D | | | 0 | 07/0 | | Activ | | 600-400 MG-UNIT TABS | | | | 6/20 | | e | | | | | | 18 | | | + + + +---------+------+------+-------+ | FLUoxetine | Take 1 capsule by | | 0 | 01/2 | | Activ | | (PROZAC) 40 MG | mouth daily. | | | 2/20 | | e | | capsule | | | | 14 | | | + + + +---------+------+------+-------+ | | Take 1 tablet by | | 0 | | | Activ | | HYDROcodone-acetamin | mouth every 6 (six) | | | | | e | | ophen (NORCO) 10-325 | hours as needed for | | | | | | | mg per tablet | Pain. | | | | | | + + + +---------+------+------+-------+ | ibuprofen | | | 0 | 07/0 | | Activ | | (ADVIL,MOTRIN) 800 | | | | 6/20 | | e | | MG tablet | | | | 18 | | | + + + +---------+------+------+-------+ | magnesium oxide | | | 0 | 07/0 | | Activ | | (MAG-OX) 400 mg | | | | 6/20 | | e | | tablet | | | | 18 | | | + + + +---------+------+------+-------+ | ondansetron | | | 0 | 07/0 | | Activ | | (ZOFRAN) 4 mg tablet | | | | 6/20 | | e | | | | | | 18 | | | + + + +---------+------+------+-------+ | promethazine | Take 1 tablet by | | 0 | 10/2 | | Activ | | (PHENERGAN) 25 mg | mouth every 6 (six) | | | 2/20 | | e | | tablet | hours as needed for | | | 14 | | | | | Nausea. | | | | | | + + + +---------+------+------+-------+ | DULoxetine | Take 30 mg by mouth | | 0 | | | Activ | | (CYMBALTA) [address] | 3 (three) times | | | | | e | | capsule | daily. | | | | | | + + + +---------+------+------+-------+ | gabapentin | take 1 capsule by | | 0 | 10/0 | | Activ | | (NEURONTIN) 100 mg | mouth twice a day | | | 7/20 | | e | | capsule | | | | 14 | | | + + + +---------+------+------+-------+ | gabapentin | take 2 capsules by | | 0 | 11/0 | | Activ | | (NEURONTIN) 300 mg | mouth every evening | | | 8/20 | | e | | capsule | | | | 14 | | | + + + +---------+------+------+-------+ | | Inhale 2 puffs into | | 0 | 07/2 | | Activ | | albuterol-ipratropiu | the lungs every 6 | | | 1/20 | | e | | m (COMBIVENT | (six) hours as | | | 14 | | | | RESPIMAT) 100-20 | needed for Wheezing. | | | | | | | mcg/puff inhaler | | | | | | | + + + +---------+------+------+-------+ | levothyroxine | Take 1 tablet by | | 0 | 11/ | | Activ | | (SYNTHROID) 25 mcg | mouth every morning | | | 20 | | e | | tablet | before breakfast. | | | 14 | | | + + + +---------+------+------+-------+ | LORazepam (ATIVAN) | Take 1 tablet by | | 0 | 07/ | | Activ | | 1 mg tablet | mouth every 6 (six) | | | 1/20 | | e | | | hours as needed for | | | 14 | | | | | Anxiety. | | | | | | + + + +---------+------+------+-------+ | omeprazole | Take 20 mg by mouth | | 0 | | | Activ | | (PRILOSEC) 20 mg | every morning before | | | | | e | | capsule | breakfast. | | | | | | + + + +---------+------+------+-------+ | albuterol 90 | inhale 2 to 3 puffs | | 0 | 04/1 | | Activ | | mcg/puff inhaler | by mouth up to every | | | 02/21 | | e | | | 2 hours if needed | | | 19 | | | | | for shortness of | | | | | | | | breath | | | | | | + + + +---------+------+------+-------+ | azithromycin | | | 0 | 04/2 | | Activ | | (ZITHROMAX) 250 mg | | | | 20 | | e | | tablet | | | | 19 | | | + + + +---------+------+------+-------+ | cephalexin | take 1 capsule by | | 0 | 05/1 | | Activ | | (KEFLEX) 500 mg | mouth four times a | | | 06/23 | | e | | capsule | day | | | 19 | | | + + + +---------+------+------+-------+ | methocarbamol | | | 0 | 07/2 | | Activ | | (ROBAXIN) 500 mg | | | | 3/20 | | e | | tablet | | | | 19 | | | + + + +---------+------+------+-------+ | Multiple | | | 0 | 07/2 | | Activ | | Vitamins-Minerals | | | | 3/20 | | e | | (CENTROVITE) TABS | | | | 19 | | | + + + +---------+------+------+-------+ | mupirocin | | | 0 | 05/0 | | Activ | | (BACTROBAN) 2% | | | | 7/20 | | e | | ointment | | | | 19 | | | + + + +---------+------+------+-------+ | predniSONE | | | 0 | 04/2 | | Activ | | (DELTASONE) 20 mg | | | | 2/20 | | e | | tablet | | | | 19 | | | + + + +---------+------+------+-------+ Active Problems + + + | Problem | Noted Date | + + + | Recurrent displacement of lumbar disc | 06/06/2017 | + + + | Spondylolisthesis at L4-L5 level | 06/06/2017 | + + + | Abnormal LFTs | 01/10/2015 | + + + | Acute GI bleeding | 01/10/2015 | + + + | ARF (acute renal failure) | 01/10/2015 | + + + | Chronic hepatitis C without hepatic coma | 01/10/2015 | + + + | Epigastric abdominal pain | 01/10/2015 | + + + | Hematemesis | 01/10/2015 | + + + | Leukocytosis | 01/10/2015 | + + + | Metabolic acidosis | 01/10/2015 | + + + | NSAID induced gastritis | 01/10/2015 | + + + | CHI (obstructive sleep apnea) | 01/10/2015 | + + + | Rectal bleeding | 01/10/2015 | + + + | Facet joint disease of lumbosacral region | 11/25/2013 | + + + + + | Overview: Last Assessment & Plan: | | Please see discussion under lumbar radicular pain | + + + + + | DDD (degenerative disc disease), lumbar | 11/25/2013 | + + + + + | Overview: Last Assessment & Plan: | | Please see discussion under lumbar radicular pain | + + + + + | Altered mental status | 09/19/2013 | + + + | Back ache | 09/19/2013 | + + + | Polypharmacy | 09/19/2013 | + + + | Stenosis of lumbosacral spine | 09/19/2013 | + + + + + | Overview: Last Assessment & Plan: Pt will require chronic | | pain management. I am not providing this management. Pain is | | chronic, no new develomentsReferral orderedLast Assessment & | | Plan: Please see discussion under lumbar radicular pain | |Last Assessment & Plan: | |Please see discussion under lumbar radicular pain | + + + + + | Chronic pain | 09/03/2013 | + + + + + | Overview: Overview: Managed by Dr. Shelton Assessment & | | Plan: i will not provide pain medication. Pt was directed to her | | pain specialist who she will see tomorrow | |Last Assessment & Plan: | |i will not provide pain medication. Pt was directed to her pain specialist who she will see tomorrow | + + + + + | Radiculopathy of lumbar region | 08/22/2013 | + + + + + | Overview: Last Assessment & Plan: In summary, this is a 53 | | year old female who has low back pain with left L5 radicular | | pain. Her lumbar MRI showed moderate to severe central canal | | stenosis. Multilevel neural foraminal narrowing, greatest at | | L5-S1 on the left side. We reviewed her MRI and discussed | | options. She has tried some conservative measures. She is a | | candidate for a lumbar epidural steroid injection as her symptoms | | could be due to the foraminal narrowing at L5-S1 and the spinal | | stenosis at L4-5. Will plan on a caudal with catheter lumbar | | epidural steroid injection targeting left L5 and S1 nerve roots | | under fluoroscopic guidance.Plan, alternatives, risks and | | potential benefits of the procedure were explained to the patient | | in great detail. The patient understands that there is no | | guarantee they will get pain relief with this procedure. They | | also understand that if they do get pain relief that there is no | | way to know how long it will last. They also understand there is | | a risk to the procedure itself which includes but are not | | limited to infection, abscess, hematoma, nerve damage, paraplegia | | or quadriplegia, increased pain, spinal headache, stroke, and | | side effects from the medications themselves. The patient wishes | | to proceed. | + + + + + | Cystocele | 07/02/2013 | + + + + + | Overview: Overview: | | Grade 2. | + + + + + | Dyspareunia | 07/02/2013 | + + + | Mixed stress and urge urinary incontinence | 07/02/2013 | + + + | OAB (overactive bladder) | 07/02/2013 | + + + | Rectocele | 07/02/2013 | + + + + + | Overview: Overview: | | Grade 2-3 | + + + + + | Bipolar affective | 06/24/2013 | + + + + + | Overview: Last Assessment & Plan: Pt hasn't been [...] | will have pt speak with the wellness coordinator today to help | | get this process underway. | + + + + + | COPD (chronic obstructive pulmonary disease) | 06/24/2013 | + + + + + | Overview: Last Assessment & Plan: Pt with COPD and cough. Was | | treated for viral URI a couple of weeks ago in ER. No evidence | | of pneumonia or respiratory distress, though it appears cough is | | not resolving.Will treat with z-pack.Pt would like codeine [...] + + + + + | Overview: Last Assessment & Plan: Suspect dyspepsia/GERD. Pt | | has hx of H.pyloriTest for H pylori. Start with H2 reena to see | | if this improves symptoms. Treat nausea today | + + + + + | HTN (hypertension) | 06/24/2013 | + + + + + | Overview: Last Assessment & Plan: | | Well managed currently | | No changes to regimen | + + + + + | Nicotine addiction | 06/24/2013 | + + + + + | Overview: Last Assessment & Plan: | | Will start pt back on Chantix | | Discussed nicotine cessation techniques. | + + + + + | Sleep apnea | 06/24/2013 | + + + + + | Overview: Last Assessment & Plan: Managed by Dr. Harvey. Pt | | will make an appointment to get a f/u visit with him. She feels | | her mask is not fitting correctly. This can certainly cause | | fatigue if pt is not sleeping well. | + + Encounters +--------+ + + + + | Date | Type | Specialty | Care Team | Description | +--------+ + + + + | 10/20/ | Telephone | Neurosurgery | Jose Gonzalez, DO | Appointment | | 2020 | | | | | +--------+ + + + + from Last 3 Months Immunizations + + + + | Name | Administration Dates | Next Due | + + + + | INFLUENZA TRIV | 03/23/2010, 03/08/2009 | | | W/PRES(PED/ADOL/ADUL | | | | T),MULTIDOSE | | | + + + + | PNEUMOCOCCAL | 09/20/2013 | | | POLYSACCHARIDE | | | | 23-VALENT (PPSV23) | | | + + + + Family History + + +------+ + | Medical History | Relation | Name | Comments | + + +------+ + | Heart defect | Brother | | | + + +------+ + | Diabetes | Father | | | + + +------+ + | Diabetes, NIDDM | Father | | | + + [...] | | + + +------+ + | Other (see comment) | Sister | | Skin cancer | + + +------+ + | Ovarian [...] | Blood Pressure | 123/85 | 06/06/2017 11:10 AM | | | | | PST | | + + + + + | Pulse | 87 | 06/06/2017 11:10 AM | | | | | PST | | + + + + + | Temperature | 36.2 C (97.1 F) | 03/01/2017 11:09 AM | | | | | PDT | | + + + + + | Respiratory Rate | 16 | 03/01/2017 11:09 AM | | | | | PDT | | + + + + + | Oxygen Saturation | - | - | | + + + + + | Inhaled Oxygen | - | - | | | Concentration | | | | + + + + + | Weight | 116.3 kg (256 lb 8 | 06/06/2017 11:10 AM | | | | oz) | PST | | + + + + + | Height | 170.2 cm (5' 7") | 06/06/2017 11:10 AM | | | | | PST | | + + + + + | Body Mass Index | 40.17 | 06/06/2017 11:10 AM | | | | | PST | | + + + + + Plan of Treatment +--------+---------+ + + + | Date | Type | Specialty | Care Team | Description | +--------+---------+ + + + | 10/30/ | Office | Neurosurgery | Jose Gonzalez DO | | | 2019 | Visit | | [address] | | | | | | [place] [address] | | | | | | [phone] | | | | | | | | +--------+---------+ + + + + + + + + | Health Maintenance | Due Date | Last Done | Comments | + + + + + | Vaccine: | | | | | Dtap/Tdap/Td (1 - | 1 | | | | Tdap) | | | | + + + + + | Colorectal Cancer | | | | | Screening | 0 | | | | (Colonoscopy) | | | | + + + + + | Vaccine: Zoster (1 | | | | | of 2) | 0 | | | + + + + + | Vaccine: | | 09/20/2013 | | | Pneumococcal 19-64 | 5 | | | | (2 of 3 - PCV13) | | | | + + + + + | Breast Cancer | | | | | Screening | 5 | | | + + + + + | Vaccine: Influenza | | 03/23/2010, 03/08/2009 | | | (Season Ended) | 0 | | | + + + + + | Hepatitis C | Completed | 03/01/2017, 02/15/2017, | | | Screening | | 09/27/2016, Additional history | | | | | exists | | + + + + + Implants + +------+--------+ +--------+--------+--------+ | Implanted | Type | Area | Manufacture | Device | Shelf | Model | | | | | r | | Expira | / | | | | | | Identi | tion | Serial | | | | | | fier | Date | / Lot | + +------+--------+ +--------+--------+--------+ | Sling Bladder Tvt Exact Tvtrl | | N/A: | [employer] | | 09/02/ | TVTRL | | - StvtrlImplanted: Qty: 1 on | | Vagina | [employer] | | 2014 | /TVTRL | | 12/24/2013 by Misha Dye | | | SUTURE - | | | | | MD John | | | [facility] | | | /[id number] | | | | | | | [...] +---------+--------+ | MEDICAID [place] | MEDICA | [id number] | 09/03/19 | [phone] | | Medica [...] Person | Self | [birth year] [address] | | | al/Fam | | 1960 | [phone] | [place], [place] | | | [place] | | | [address] (Home) | [phone] | + +--------+ +--------+ + + | Bisi Becker | Person | Self | [birth year] | [address] | | | al/Fam | | 1960 | [phone] | [place], [place] | | | [place] | | | [address] ([place]) | [address] | + +--------+ +--------+ + + Advance Directives + + + + + | Type | Date Recorded | Patient | Explanation | | | | Cruise Agent | | + + + + + | Power of | | | | | Rod Filler | | | | + + + + + | Advance | | | | | Directive | | | | + + + + +
--- OUTSIDE RECORDS SUMMARY | ~2019-10-27 | XMS | Encounter Summary ---
Demographics + + + | Address | [address] | | | [place] [address] | + + + | Home Phone | | + + + | Preferred Language | Unknown | + + + | Marital Status | Single | + + + | Evangelical Affiliation | 1009 | + + + | Race | Unknown | + + + | Ethnic Group | Unknown | + + + Author + + + | Author | [facility] | | | and [place] | + + + | Organization | [facility] | | | and [place] [...] Providers + +------+ + | Care Director Physical Therapy Name | Role | Phone | + [...] PHYSIATRY [address] | MD [address] | | | | | [address] | [place], [place] | | | | | [place], [place] | [address] | | | | | [address] | | | | | | [phone] | | | +--------+ + + + [...] | | | | | [place] [address] | | | | | | [phone] | | | | | | | | +--------+---------+ + + + documented as of this encounter Visit Diagnoses Not on filedocumented in this encounter"
--- OUTSIDE RECORDS SUMMARY | ~2019-10-27 | XMS | Encounter Summary ---
Demographics + + + | Address | [address] | | | [place] [address] | + + + | Home Phone | | + + + | Preferred Language | Unknown | + + + | Marital Status | Single | + + + | Voodoo Affiliation | 1009 | + + + | Race | Unknown | + + + | Ethnic Group | Unknown | + + + Author + + + | Author | [facility] | | | and [place] | + + + | Organization | [facility] | | [...] Team Providers + +------+ + | Care Foiling Machine Adjuster Name | Role | Phone | + +------+ + | Naren Nina PA-C | PCP | | + +------+ + Encounter Details +--------+ + + + + | Date | Type | Department | Care Team | Description | +--------+ + + + + | 02/09/ | Orders Only | [facility] | Danielle, | | | 2016 | | [address] | [address] | | | | | [place], [place] | [address] | | | | | [address] | [place] [address] | | | | | [phone] | [phone] | | | | | | | [...] | | | | | [place] [address] | | | | | | [phone] | | | | | | | [...] + + + + | HCV | [id number] (A)Comment: | [iU]/mL | EXTERNAL | | [...]
--- OUTSIDE RECORDS SUMMARY | ~2019-10-27 | XMS | Encounter Summary ---
Demographics + + + | Address | [address] | | | [place] [address] | + + + | Home Phone | | + + + | Preferred Language | Unknown | + + + | Marital Status | Single | + + + | Jainism Affiliation | 1009 | + + + | Race | Unknown | + + + | Ethnic Group | Unknown | + + + Author + + + | Author | [facility] | | | and [place] | + + + | Organization | [facility] | | | and [place] [...] Team Providers + +------+ + | Care Engineering Recruiter Name | Role | Phone | + +------+ + | Hayden Acevedo MD | PCP | | + +------+ + Encounter Details +--------+ + + + + | Date | Type | Department | Care Team | Description | +--------+ + + + + | 06/22/ | Emergency | [facility] | Navneet Stewart | Cough; | | 2013 | | [facility] | DO Jazlyn Lopez [address] | Fever; | | | | EMER[facility]Y [facility]ENTER | [place], [place] | Bronchitis; | | | | [address] | [address] | Dyspnea | | | | [place], [place] | | | | | | [address] | | | | | | [phone] | | | +--------+ + + + [...] | | | | | [place] [address] | | | | | | [phone] | | | | | | | | +--------+---------+ + + + documented as of this encounter Procedures + +--------+ + + + | Procedure Name | Priori | Date/Time | Associated Diagnosis | Comments | | | ty | | | | + +--------+ + + + | INFLUENZA A AND B | STAT | 06/22/2013 | | Results for this | | [place], [place] | | 1:00 PM | | procedure are in the | | | | PST | | results section. | + +--------+ + + + | XR CHEST 2 VIEWS | Routin | 06/22/2013 | | Results for this | | | e | 12:33 PM | | procedure are in the | | | | PST | | results section. | + +--------+ + + + | GRAM STAIN, REFLEX | STAT | 06/22/2013 | | Results for this | | SPUTUM CULTURE | | 12:30 PM | | procedure are in the | | | | PST | | results section. | + +--------+ + + + documented in this encounter Results Influenza A and B Ag [place] (06/22/2013 1:00 PM PST) + + | Specimen | + + | Body fluid sample | | (specimen) | + + + + + | Narrative | Performed At | + + + | Specimen Description NASOPHARYNGEAL RESULT | EXTERNAL LAB | | Negative for Influenzae Type A | | | and Type B antigen by ICA | | | Testing performed at [facility];[address] [place] [address];[place] [address] | | | REPORT STATUS 06/22/2013 FINAL | | + + + + +---------+ + + | Performing | Address | City/State/Zipcode | Phone Number | | Organization | | | | + +---------+ + + | EXTERNAL LAB | | | | + +---------+ + + XR Chest 2 Vws (06/22/2013 12:33 PM PST) + + | Specimen | + + | | + + + + + | Impressions | Performed At | + + + | 1. No acute disease. | | + + + + + + | Narrative | Performed At | + + + | NOHEMI ESPITIA XR CHEST 2 VIEW FRONTAL AND LATERAL 06/22/2013 | | | 12:33 PM HISTORY: Shortness of breath. TECHNIQUE: Frontal | | | and lateral views of the chest. COMPARISON: None. FINDINGS: | | | The lungs are clear and well inflated. The cardiac silhouette and | | | pulmonary vasculature are normal. No pneumothorax or pleural effusion | | | is found. Mild degenerative changes of the acromioclavicular joints | | | are noted. | | + + + + + | Procedure Note | + + | Dhiraj, Rad Conversion - 01/18/2019 1:22 AM PDT NOHEMI ESPITIAXR CHEST 2 VIEW FRONTAL | | AND LATERAL06/22/2013 12:33 PM HISTORY:Shortness of breath. TECHNIQUE:Frontal and | | lateral views of the chest. COMPARISON:None. FINDINGS:The lungs are clear and well | | inflated. The cardiac silhouette and pulmonary vasculature are normal. No pneumothorax | | or pleural effusion is found. Mild degenerative changes of the acromioclavicular joints | | are noted. IMPRESSION: 1. No acute disease. | |TECHNIQUE: | |Frontal and lateral views of the chest. | | | |COMPARISON: | |None. | | | |FINDINGS: | |The lungs are clear and well inflated. The cardiac silhouette and pulmonary vasculature are normal. No pneumothorax or pleural effusion is found. Mild degenerative changes of the acro mioclavicular joints are noted. | | | |IMPRESSION: | |1. No acute disease. | | | | | + + Gram Stain, reflex Sputum Culture (06/22/2013 12:30 PM PST) + + | Specimen | + + | Body fluid sample | | (specimen) | + + + + + | Narrative | Performed At | + + + | Specimen Description SPUTUM GRAM STAIN | EXTERNAL LAB | | LESS THAN 10 SEC/LPF | | | LESS THAN 10 WBCS/LPF | | | 4+ GRAM POSITIVE COCCI | | | 4+ GRAM POSITIVE | | | RODS REVIEW OF | | | SMEAR BY MICROBIOLOGY SHOWS THE FOLLOWING: | | | GREATER THAN 10 SEC/LPF LESS THAN 10 | | | WBCS/LPF 2+ GRAM | | | NEGATIVE COCCI 4+ | | | GRAM NEGATIVE RODS | | | 2+ GRAM NEGATIVE COCCOBACILLI | | | Testing performed at [facility], [address] [place] [address], | | | [place] [address] CULTURE | | | SMEAR CONTAINS GREATER THAN 10 SEC/LPF SUGGESTIVE OF POOR QUALITY | | | SPECIMEN. SPECIMEN WILL NOT BE CULTURED OR WILL BE CULTURED BY | | | SPECIAL REQUEST ONLY. PLEASE RECOLLECT IF CLINICALLY INDICATED. | | | SPECIMEN WILL BE HELD 48 HOURS. | | | Testing performed at [facility], [address] [place] [address], | | | [place] [address] REPORT STATUS | | | 06/23/2013 FINAL | | + + + + +---------+ + + | Performing | Address | City/State/Zipcode | Phone Number | | Organization | | | | + +---------+ + + | EXTERNAL LAB | | | | + +---------+ + + documented in this encounter Visit Diagnoses + + | Diagnosis | + + | Cough | + + | Fever Fever, unspecified | + + | Bronchitis Bronchitis, not specified as acute or chronic | + + | Dyspnea Other dyspnea and respiratory abnormality | + + documented in this encounter"
--- OUTSIDE RECORDS SUMMARY | ~2019-10-27 | XMS | Encounter Summary ---
Demographics + + + | Address | [address] | | | [place] [address] | + + + | Home Phone [...] + | Author | [facility] | | | and [place] | + + + | Organization | [facility] | | | and [place] [...] Team Providers + +------+ + | Care Milk Receiver Name | Role | Phone | + +------+ + | Naren Nina PA-C | PCP | | + +------+ + Encounter Details +--------+ + + + + | Date | Type | Department | Care Team | Description | +--------+ + + + + | 05// | Orders Only | [facility] | Mariia Owusu, | | | 2013 | | [facility] | 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 [address] | | | | | CARE [address] | [place] [address] | | | | | [place], [place] | [phone] | | | | | [address] | | | | | | [phone] | | | +--------+ + + + [...] | | | | | | [place] [address] | | | | | | [phone] | | | | | | | | +--------+---------+ + + + documented as of this encounter Procedures + +--------+ + + + | Procedure Name | Priori | Date/Time | Associated Diagnosis | Comments | | | ty | | | | + +--------+ + + + | HIV 1 AND 2 ANTIBODY | Routin | 10/08/2013 | | Results for this | | DIFFERENTIATION | e | 10:40 AM | | procedure are in the | | | | PDT | | results section. | + +--------+ + + + | HEPATITS A AB, TOTAL | Routin | 10/08/2013 | | Results for this | | | e | 10:40 AM | | procedure are in the | | | | PDT | | results section. | + +--------+ + + + | HEPATITIS C | Routin | 10/08/2013 | | Results for this | | GENOTYPING | e | 10:40 AM | | procedure are in the | | | | PDT | | results section. | + +--------+ + + + | HEPATITIS C | Routin | 10/08/2013 | | Results for this | | RNA,QUANTITATIVE,PCR | e | 10:40 AM | | procedure are in the | | | | PDT | | results section. | + +--------+ + + + | HEPATITIS B SURFACE | Routin | 10/08/2013 | | Results for this | | AB | e | 10:40 AM | | procedure are in the | | | | PDT | | results section. | + +--------+ + + + | HEPATITIS B SURFACE | Routin | 10/08/2013 | | Results for this | | AG | e | 10:40 AM | | procedure are in the | | | | PDT | | results section. | + +--------+ + + + | CD4 T CELL PANEL | Routin | 10/08/2013 | | Results for this | | | e | 10:40 AM | | procedure are in the | | | | PDT | | results section. | + +--------+ + + + | PROTIME INR | Routin | 10/08/2013 | | Results for this | | | e | 10:40 AM | | procedure are in the | | | | PDT | | results section. | + +--------+ + + + | TSH | Routin | 10/08/2013 | | Results for this | | | e | 10:40 AM | | procedure are in the | | | | PDT | | results section. | + +--------+ + + + | BASIC METABOLIC | Routin | 10/08/2013 | | Results for this | | PANEL | e | 10:40 AM | | procedure are in the | | | | PDT | | results section. | + +--------+ + + + documented in this encounter Results Hepatitis A AB, Total (10/08/2013 10:40 AM PDT) + + + + + + | Component | Value | Ref Range | Performed | Pathologist | | | | | At | Signature | + + + + + + | Hep A Total | NON REACTIVE | | EXTERNAL | | | Ab Interp | | | LAB | | + [...] | + +---------+ + + Hepatitis C Genotyping (10/08/2013 10:40 AM PDT) + + + + + + | Component | Value | Ref Range | Performed | Pathologist | | | | | At | Signature | + + + + + + | HCV | TYPE 2BComment: HCV | | EXTERNAL | | | Genotype | GENOTYPE WAS DETERMINED | | LAB | | | | BY RT-PCR AND FERROCENE | | | | | | LABELLED PROBE.THIS | | | | | | ASSAY DETECTS AND | | | | | | DIFFERENTIATES THE 6 | | | | | | MAJOR HCV GENOTYPES | | | | | | ANDTHEIR MOST COMMON | | | | | | SUBTYPES (1A, 1B, 2A/C, | | | | | | 2B, 3, 4, 5, 6).THIS | | | | | | TEST WAS DEVELOPED AND | | | | | | ITS PERFORMANCE | | | | | | CHARACTERISTICS | | | | | | DETERMINEDBY [facility] | | | | | | DIVISION OF LABORATORY | | | | | | MEDICINE. IT HAS NOT | | | | | | BEENAPPROVED OR CLEARED | | | | | | BY THE U.S. FOOD AND | | | | | | DRUG ADMINISTRATION. | | | | | | THISTEST SHOULD NOT BE | | | | | | REGARDED | | | | | | INVESTIGATIONAL OR FOR | | | | | | RESEARCH USE. | | | | + + + + + + + + | Specimen | + + | Blood specimen | | (specimen) | + + + +---------+ + + | Performing | Address | City/State/[facility] | Phone Number | | Organization | | | | + +---------+ + + | EXTERNAL LAB | | | | + +---------+ + + Hepatitis C RNA, quantitative, PCR (10/08/2013 10:40 AM PDT) + + + + + + | Component | Value | Ref Range | Performed | Pathologist | | | | | At | Signature | + + + + + + | HCV-LOG 10 | 5.5 (A) | Log IU/mL | EXTERNAL | | | | | | LAB | | + + + + + + | HCV | [id number] (A)Comment: | [iU]/mL | EXTERNAL | | [...] + HIV 1 and 2 Antibody Differentiation (10/08/2013 10:40 AM PDT) + + + + + [...] | | + +---------+ + + Hepatitis B Surface Ab (10/08/2013 10:40 AM PDT) + + + + + + | Component | Value | Ref Range | Performed | Pathologist | | | | | At | Signature | + + + + + + | HEP B | <0.35Comment: <1.00 | IV | EXTERNAL | | | SURFACE | Non Immune1.00 | | LAB | | | ANTIBODY | OR MORE Indicates | | | | | | vaccine response or | | | | | | response to HBV | | | | | | infection. An Index | | | | | | Value (IV) of 1.00 is | | | | | | equivalent to 10 mIU/mL. | | | | | | Samples with an IV of | | | | | | 1.00 or greater are | | | | | | considered reactive | | | | | | (protected) in | | | | | | accordance with CDC | | | | | | Guidelines. | | | | + + + + + + + + | Specimen | + + | Blood specimen | | (specimen) | + + + +---------+ + + | Performing | Address | City/State/Zipcode | Phone Number | | Organization | | | | + +---------+ + + | EXTERNAL LAB | | | | + +---------+ + + Hepatitis B Surface Ag (10/08/2013 10:40 AM PDT) + + + + + + | Component | Value | Ref Range | Performed | Pathologist | | | | | At | Signature | + + + + + + | HEP B | NON REACTIVE | | EXTERNAL | | | SURFACE | | | LAB | | | ANTIBODY | | | | | + + + + + + + + | Specimen | + + | Blood specimen | | (specimen) | + + + +---------+ + + | Performing | Address | City/State/Zipcode | Phone Number | | Organization | | | | + +---------+ + + | EXTERNAL LAB | | | | + +---------+ + + CD4 T Cell Panel (10/08/2013 10:40 AM PDT) + + + + + + | Component | Value | Ref Range | Performed | Pathologist | | | | | At | Signature | + + + + + + | Source | BLOOD | | EXTERNAL | | | | | | LAB | | + + + + + + | WBC | 16.8 (H) | 3.8 - 11.0 | EXTERNAL | | | | | 10*3/uL | LAB | | + + + + + + | Lymphocytes | 7.5 (L) | 15.0 - 48.0 % | EXTERNAL | | | Manual | | | LAB | | + + + + + + | Absolute | 1.30 | 1.00 - 3.90 | EXTERNAL | | | Lymphocytes | | 10*3/uL | LAB | | + + + + + + | CD4- | 40.1 | 30.0 - 65.0 % | EXTERNAL | | | | | | LAB | | + + + + + + | Absolute | 521 | 490 - 1400 /uL | EXTERNAL | | | CD4 ([place]on | | | LAB | | | T) Cells | | | | | + + + + + + | CD4 NOTE 2 | SEE BELOWComment: NORMAL | | EXTERNAL | | | | RANGES BASED ON WHOLE | | LAB | | | | BLOOD.RESULT IS A SINGLE | | | | | | TEST PARAMETER WHICH | | | | | | MAY BE INFLUENCED BY | | | | | | TRANSPORTTIMES, THERAPY, | | | | | | AND ASSOCIATED | | | | | | DISORDERS. MORE VALID | | | | | | DATA INCLUDE CD3,CD19, | | | | | | CD4, CD8, AND CD4/CD8 | | | | | | RATIO.THIS TEST WAS | | | | | | DEVELOPED AND ITS | | | | | | PERFORMANCE | | | | | | CHARACTERISTICS | | | | | | DETERMINEDBY [facility] | | | | | | [facility] | | | | | | [place]. IT HAS NOT BEEN | | | | | | CLEARED ORAPPROVED BY | | | | | | THE U.S. FOOD AND DRUG | | | | | | ADMINISTRATION. THE FDA | | | | | | HASDETERMINED THAT SUCH | | | | | | CLEARANCE OR APPROVAL IS | | | | | | NOT NECESSARY.THIS TEST | | | | | | IS USED FOR CLINICAL | | | | | | PURPOSES IN MANY | | | | | | LABORATORIES, AND | | | | | | ISNECESSARY FOR STANDARD | | | | | | MEDICAL CARE. IT SHOULD | | | | | | NOT BE REGARDED | | | | | | ASINVESTIGATIONAL OR FOR | | | | | | RESEARCH. THIS | | | | | | LABORATORY IS CERTIFIED | | | | | | UNDERTHE CLINICAL | | | | | | LABORATORY IMPROVEMENT | | | | | | AMENDMENTS OF 1988 | | | | | | ("CLIA") ASQUALIFIED TO | | | | | | PERFORM HIGH COMPLEXITY | | | | | | CLINICAL TESTING. | | | | + + + + + + + + | Specimen | + + | Blood specimen | | (specimen) | + + + +---------+ + + | Performing | Address | City/State/Zipcode | Phone Number | | Organization | | | | + +---------+ + + | EXTERNAL LAB | | | | + +---------+ + + Protime INR (10/08/2013 10:40 AM PDT) + + + + + + | Component | Value | Ref Range | Performed | Pathologist | | | | | At | Signature | + + + + + + | INR | 0.9Comment: REFERENCE | | EXTERNAL | | | [...] SYSTEMIC | | | | | | EMBOLISM | | | | + + + + + + + + | Specimen | + + | Blood specimen | | (specimen) | + + + +---------+ + + | Performing | Address | City/State/Zipcode | Phone Number | | Organization | | | | + +---------+ + + | EXTERNAL LAB | | | | + +---------+ + + TSH (10/08/2013 10:40 AM PDT) + +-------+ + + + | Component | Value | Ref Range | Performed | Pathologist | | | | | At | Signature | + +-------+ + + + | TSH | 1.32 | 0.45 - 5.10 | EXTERNAL | | | | | u[iU]/mL | LAB | | + +-------+ + + + + + | Specimen | + + | Blood specimen | | (specimen) | + + + +---------+ + + | Performing | Address | City/State/Zipcode | Phone Number | | Organization | | | | + +---------+ + + | EXTERNAL LAB | | | | + +---------+ + + Basic Metabolic Panel (10/08/2013 10:40 AM PDT) + + + + + + | Component | Value | Ref Range | Performed | Pathologist | | | | | At | Signature | + + + + + + | Na | 137 | 135 - 143 | EXTERNAL | | | | | mmol/L | LAB | | + + + + + + | K | 4.7 | 3.5 - 4.9 | EXTERNAL | | | | | mmol/L | LAB | | + + + + + + | Cl | 107 | 99 - 109 mmol/L | EXTERNAL | | | | | | LAB | | + + + + + + | CO2 | 26 | 23 - 32 mmol/L | EXTERNAL | | | | | | LAB | | + + + + + + | Anion Gap | 9 | 5 - 20 mmol/L | EXTERNAL | | | | | | LAB | | + + + + + + | Glucose, | 146 (H) | 65 - 99 mg/dL | EXTERNAL | | | Fasting | | | LAB | | + + + + + + | BUN | 15 | 8 - 25 mg/dL | EXTERNAL | | | | | | LAB | | + + + + + + | Creatinine | 0.89 | 0.50 - 1.00 | EXTERNAL | | | | | mg/dL | LAB | | + + + + + + | BUN/Creatin | 17 | | EXTERNAL | | | ine Ratio | | | LAB | | + + + + + + | Calcium | 10.0 | 8.5 - 10.2 | EXTERNAL | | | | | mg/dL | LAB | | + + + [...] | | | | CALCULATED GFR BY 1.210. | | | | | | | [...] Visit Diagnoses Not on filedocumented in this encounter
--- OUTSIDE RECORDS SUMMARY | ~2019-10-27 | XMS | Encounter Summary ---
Demographics + + + | Address | [address] | | | [place] [address] | + + + | Home Phone | | + + + | Preferred Language | Unknown | + + + | Marital Status | Single | + + + | Sikh Affiliation | 1009 | + + + | Race | Unknown | + + + | Ethnic Group | Unknown | + + + Author + + + | Author | [facility] | | | and [place] | + + + | Organization | [facility] | | | and [place] | + + + | Address | Unknown | + + + | Phone | Unavailable | + + + Support + + +---------+ + | Name | Relationship | Address | Phone | + + +---------+ + | Gene Sotelo | ECON | Unknown | | + + +---------+ + | Makr Lewis | ECON | Unknown | | + + +---------+ + Care Team Providers + +------+ + | Care Distilling Department Supervisor Name | Role | Phone | [...] Provider Unknown | | | | | [place], [place] | | | | | | [address] | (Fax) | | | | | [phone] | | | +--------+ + + + [...] | | | | | | [place] [address] | | | | | | [phone] | | | | | | | [...]
--- OUTSIDE RECORDS SUMMARY | ~2019-10-27 | XMS | Encounter Summary ---
Demographics + + + | Address | [address] | | | [place] [address] | + + + | Home Phone [...] | Author | [facility] | | | and [place] | + + + | Organization | [facility] [...] Team Providers + +------+ + | Care Receiving Manager Name | Role | Phone | + +------+ + | Naren Nina PA-C | PCP | | + +------+ + Reason for Visit + + + | Reason | Comments | + + + | Procedure | | + + + Evaluate & Treat [...] | Cervical | [address] | | | | n | radiculopath | [address] | [place], | | | | | y Left arm | [place], | [place] [address] | | | | | numbness | [place] [address] | Phone: | | | | | Left arm | Phone: | [phone] | | | | | weakness | [phone] | Fax: | | | | | Procedures | Fax: | [phone] | | | | | DOS 01/04/16 | [phone] | | +--------+ + + + + + Encounter Details +--------+ + + + + | Date | Type | Department | Care Team | Description | +--------+ + + + + | 01/31/ | Procedure | [facility] | Henri Stewart, | Cervicalgia (Primary | | 2016 | visit | PHYSIATRY [address] | MD [address] | Dx); Cervical | | | | [address] | [place] | radiculopathy; | | | | [place], [place] | [address] | Cervical spinal | | | | [address] | | stenosis | | | | [phone] | | | +--------+ + + + [...] + | Blood Pressure | 148/93 | 02/01/2016 8:44 AM | | | | | PDT | | + + + + + | Pulse | 70 | 02/01/2016 8:44 AM | | | | | PDT | | + + + + + | Temperature | - | - | | + + + + + | Respiratory Rate | 19 | 02/01/2016 8:44 AM | | | | | PDT | | + + + + + | Oxygen Saturation | - | - | | + + + + + | Inhaled Oxygen | - | - | | | Concentration | | | | + + + + + | Weight | 109.8 kg (242 lb) | 02/01/2016 8:44 AM | | | | | PDT | | + + + + + | Height | 170.2 cm (5' 7") | 02/01/2016 8:44 AM | | | | | PDT | | + + + + + | Body Mass Index | 37.9 | 02/01/2016 8:44 AM | | | | | PDT | | + + + + + documented in this encounter Patient Instructions Patient Instructions Henri Stewart MD - 02/01/2016 9:42 AM PDTMove forward with plan to participate in physical therapy for your neck. As discussed during today's appointment, it is recommended that you stop smoking. Please follow up with Dr. Worrell regarding your concerns of persisting back pain after your back surgery. Return to the clinic in 3 months. Cervical epidural steroid injection was denied by your insurance. If neck and arm symptoms persist we will request neurosurgery consult for your neck.Electro nically signed by Henri Stewart MD at 02/01/2016 9:43 AM PDT documented in this encounter Progress Notes Henri Stewart MD - 02/01/2016 10:09 AM PDTFormatting of this note might be different fro m the original. [facility] Physical Medicine & Rehabilitation [address] [place] [address], [facility] [address] [place] [address] Test Date: 02/01/2016 Patient Name: Bisi Becker : 1960 Physician: Henri Stewart MD () MR #: [id number] Sex: Female Referring Physician: Naren Nina PA-C HISTORY: Ms. Becker reports constant neck and shoulder pain on the left. She reports that current neck pain is 6-7 out of 10 on a numerical pain scale. She reports that her neck pain is co nstant in timing. She reports that her neck pain is tight in quality. She reports th at neck pain symptoms are increased if she lies on her left side at night. She reports cons tant left hand numbness. She reports that the numbness is strongest in the first, second an d third fingers. She reports weakness in the left upper extremity which she describes as lo ss of hand night cleaner. She reports that she sometimes drops objects with her left hand. She cont inues to smoke cigarettes, but has cut back dramatically. She is now using nicotine patch. She is planning to quit smoking. She has physical therapy for her neck pending. Cervical epidural steroid injection requested at her last appointment is not covered by her insurance , so she cannot receive the requested injection. She has history of thyroid disease. She d enies history of diabetes. She denies taking blood thinning medications such as Coumadin or heparin. She denies having implanted electronic device such as pacemaker. PHYSICAL EXAM: She has 4/5 biceps, deltoid and hand night cleaner strength on the left compared to 5/5 on the right . She has 5/5 triceps, wrist dorsiflexion and finger abduction strength bilaterally. She h as reduced sensation to monofilament over the left first, second, and third fingers, and ove r the radial forearm. Sensation is intact in the right upper extremity with monofilament te sting. Reflexes are 2+ over the biceps, triceps, and brachioradialis bilaterally. Tinel s test over the median nerves at both wrists was negative. Phalen s test was negative at both wrists. Spurling s test was positive to the left and negative to the right. Nerve Conduction Studies Anti Sensory Summary Table Site NR Peak (ms) Norm Peak (ms) O-P Amp (V) Norm O-P Amp Site1 Site2 Delta-0 (ms) Dist (cm) Willy (m/s) Norm Willy (m/s) Left Median Anti Sensory (2nd Digit) 24.4C Wrist 3.3 <3.6 44.0 >10 Wrist 2nd Digit 2.5 14.0 56 >39 Elbow 7.2 13.7 Elbow Wrist 3.8 23.0 61 >48 Left Radial Anti Sensory (Base 1st Digit) 24.4C Wrist 2.6 <2.7 21.2 Wrist Base 1st Digit 1.9 10.0 53 Left Ulnar Anti Sensory (5th Digit) 24.3C Wrist 3.5 <3.7 22.9 >15.0 Wrist 5th Digit 2.9 14.0 48 >38 B Elbow 6.8 9.5 B Elbow Wrist 3.2 19.0 59 >47 A Elbow 8.8 17.9 A Elbow B Elbow 1.5 10.0 67 Motor Summary Table Site NR Onset (ms) Norm Onset (ms) O-P Amp (mV) Norm O-P Amp Site1 Site2 Delta-0 (ms) Dist (cm) Willy (m/s) Norm Willy (m/s) Left Median Motor (Abd Poll Brev) 24.4C Wrist 3.2 <4.2 7.6 >5 Elbow Wrist 3.8 22.5 59 >50 Elbow 7.0 7.4 Left Ulnar Motor (Abd Dig Minimi) 24.3C Wrist 3.3 <4.2 8.4 >3 B Elbow Wrist 3.7 21.0 57 >53 B Elbow 7.0 7.3 A Elbow B Elbow 1.9 10.0 53 >53 A Elbow 8.9 7.1 Comparison Summary Table Site NR Peak (ms) Norm Peak (ms) P-T Amp (V) Site1 Site2 Delta-P (ms) Norm Delta (ms) Left Median/Radial Dig I Comparison (Digit 1 - 10cm) 24.4C Median 2.5 <2.9 30.2 Median Radial 0.3 <0.4 Radial 2.8 <2.8 8.0 Left Median/Ulnar Dig IV Comparison (Digit 4 - 14cm) 24.4C Median Wr 3.3 <3.3 18.8 Median Wr Ulnar Wr 0.1 <0.4 Ulnar Wr 3.2 <3.3 22.5 Left Median/Ulnar Palm Comparison (Wrist - 8cm) 24.4C Median Palm 2.1 <2.5 61.4 Median Palm Ulnar Palm 0.1 <0.3 Ulnar Palm 2.2 <2.5 23.5 F Wave Studies NR F-Lat (ms) Lat Norm (ms) L-R F-Lat (ms) L-R Lat Norm Left Median (Mrkrs) (Abd Poll Brev) 24.4C 27.41 <33 <2.2 Left Ulnar (Mrkrs) (Abd Dig Min) 24.3C 28.51 <36 <2.5 EMG Side Muscle Nerve Root Ins Act Fibs Psw Amp Dur Poly Recrt Int Pat Comment Left Deltoid Axillary C5-6 Nml Nml Nml Nml Nml Nml Nml Nml Left Biceps Musculocut C5-6 Incr Nml Nml Nml Nml Poly Nml Nml Left BrachioRad Radial C5-6 Incr Nml 1+ Nml Nml Nml Nml Nml Left PronatorTeres Median C6-7 Nml Nml Nml Nml Nml Nml Nml Nml Left Triceps Radial C6-7-8 Incr 1+ 1+ Incr Nml Poly Nml Nml Left Anconeus Radial C7-8 Nml Nml Nml Nml Nml Nml Nml Nml Left Abd Poll Brev Median C8-T1 Nml Nml Nml Nml Nml Nml Nml Nml Left 1stDorInt Ulnar C8-T1 Nml Nml Nml Nml Nml Nml Nml Nml NCV FINDINGS: All nerve conduction studies (as indicated in the following tables) were with in normal limits. All F Wave latencies were within normal limits. EMG FINDINGS: Needle evaluation of the Left biceps muscle showed increased insertional acti vity and polyphasic potentials. The Left triceps muscle showed increased insertional activi ty, slightly increased spontaneous activity, increased motor unit amplitude, and polyphasic potentials. The Left brachioradialis muscle showed increased insertional activity and sligh tly increased spontaneous activity. All remaining muscles (as indicated in the following ta ble) showed no evidence of electrical instability. DATABASE: Cervical MRI from 02/26/2015 was personally reviewed by me. The imaging demonstrates cervi chiki spinal stenosis from C3 through C6. The imaging demonstrates multi-level neural foramin al narrowing, worse on the left compared to the right, and worst at C4-5 and C5-6. IMPRESSION: This is an abnormal study. Nerve conduction study of the left upper extremity was normal. There was no evidence of me jaye neuropathy (e.g. carpal tunnel syndrome) in the left upper extremity. There was no sandra dence of ulnar neuropathy (e.g. cubital tunnel syndrome) in the left upper extremity. There was no evidence of radial neuropathy in the left upper extremity. Needle EMG of the left upper extremity was abnormal. Needle EMG of the left upper extremit y does not meet the absolute diagnostic criteria for cervical radiculopathy. However, the a bnormalities seen, combined with Ms. Becker s clinical presentation and cervical MRI are most consistent with probable left C6 radiculopathy. The presence of left C5 radiculopathy cannot be excluded, and is also likely present. Please note that nerve conduction study and EMG cannot diagnose, nor rule out the presence of cervical spinal stenosis. Her prior cervical MRI from 2014 demonstrates mild spinal sten osis. DISCUSSION: Ms. Becker demonstrates normal tolerance to nerve conduction study and EMG. She was able to complete the study. She has never had physical therapy for her neck. Physical therapy has been requested. She is scheduled to start physical therapy 02/2016. Cervical epidural steroid injection would likely have diagnostic and potentially therapeutic benefit. This procedure is not a covered benefit of her insurance. Cervical epidural steroid injection has been denied. We discuss ed that beyond physical therapy, epidural steroid injection, one of the remaining treatment options includes surgery. We discussed that for her to be a surgical candidate she will nee d to stop smoking. She reports that she is already in the process of smoking cessation. She will return to the clinic in 3 months to review response to physical therapy and progre ss with smoking cessation. If her neck and radicular symptoms persist, we will likely reque st surgical consult. We will also re-examine her left shoulder to see if she may also have left shoulder pathology contributing toward her symptoms. She has had prior back surgery. She reports that her radicular symptoms have resolved, but she continues to hae back pain. We discussed that most people continue to have back pain d espite having back surgery. Imaging from 2011 (prior to her back surgery) was reviewed. Im aging from after her back surgery is not available. She was advised to talk to her back osbaldo geoDr. Anaid river to discuss if any further work up or treatment for her back is recommended. Approximately 30 minutes was spent face to face today with Rosita, beyond the completion o f the nerve conduction study and EMG above, over half of which was spent formulating and dis cussing her medical treatment plan. Thank you for allowing me to be involved in the care of your patient. If you have any quest ions or comments, please do not hesitate to call. Henri Stewart MD (.) Physical Medicine and Rehabilitation Cc: Naren Nina PA-C documented in this en counter Plan of Treatment +--------+---------+ + + + | Date | Type | Specialty | Care Team | Description | +--------+---------+ + + + | 10/30/ | Office | Neurosurgery | Jose Gonzalez DO | | | 2019 | Visit | | [address] | | | | | | [place] [address] | | | | | | [phone] | | | | | | | | +--------+---------+ + + + documented as of this encounter Visit Diagnoses + + | Diagnosis | + + | Cervicalgia - Primary | + + | Cervical radiculopathy Brachial neuritis or radiculitis nos | + + | Cervical spinal stenosis Spinal stenosis in cervical region | + + documented in this encounter
--- OUTSIDE RECORDS SUMMARY | ~2019-10-27 | XMS | Encounter Summary ---
Demographics + + + | Address | [address] | | | [place] [address] | + + + | Home Phone | | + + + | Preferred Language | Unknown | + + + | Marital Status | Single | + + + | Worship Affiliation | 1009 | + + + | Race | Unknown | + + + | Ethnic Group | Unknown | + + + Author + + + | Author | [facility] | | | and [place] | + + + | Organization | [facility] | | | and [...] Team Providers + +------+ + | Care Atg Java Developer Name | Role | Phone | [...] | | | | | radiculopath | [address] | [address] | | | | | y Facet | [place], | [place], [place] | | | | | arthritis of | [place] [address] | [address] | | | | | cervical | Phone: | Phone: | | | | | region | [phone] | [phone] | | | | | Chronic | Fax: | Fax: | | | | | bilateral | [phone] | [phone] | | | | | low back [...] | Cervical | [address] | | | | n | radiculopath | [address] | [place], | | | | | y Left arm | [place], | [place] [address] | | | | | numbness | [place] [address] | Phone: | | | | | Left arm | Phone: | [phone] | | | | | weakness | [phone] | Fax: | | | | | Procedures | Fax: | [phone] | | | | | DOS 01/04/16 | [phone] | | +--------+ + + + + [...] | | | | | radiculopath | [address] | [address] | | | | | y Left arm | [place], | AVE | | | | | numbness | [place] [address] | [place], [place] | | | | | Left arm | Phone: | [phone] | | | | | weakness | [phone] | Phone: | | | | | Facet | Fax: | [phone] | | | | | arthritis of | [phone] | Fax: | | | | | cervical | | [phone] | | | | | region | [...] | Rehabilitatio | neck pain | [place]-C [address] | [address] | | | | n | Low back | [address] | [place], | | | | | pain Mid | WAY | [place] [address] | | | | | back pain | [place], | Phone: | | | | | | [place] [address] | [phone] | | | | | | Phone: | Fax: | | | | | | [phone] | [phone] | | | | | | Fax: | | | | | | | [phone] | | +--------+--------+ + + + + Encounter Details +--------+---------+ + + + | Date | Type | Department | Care Team | Description | +--------+---------+ + + + | 12/14/ | Office | [facility] | Henri Stewart, | Cervicalgia (Primary | | 2016 | Visit | PHYSIATRY [address] | MD [address] | Dx); Cervical | | | | [address] | [place] | radiculopathy; Left | | | | [place] | [address] | arm numbness; Left | | | | [address] | | arm weakness; Facet | | | | [phone] | | arthritis of | | | | | | cervical region | | | | | | ([facility]); Chronic | | | | | [...] physical therapy within one week, [facility]. Once you have completed physical therapy please continue the home exercise progr am as outline by physical therapy, indefinitely. Please attend the injection appointment with Ramon Mijares MD. If his office has not co ntacted you within one week, to schedule the injection, please contact my clinic. Your inje ction will be performed at [facility]. Please take note of weather your pain is significantly reduced in the hours immediately following the injecti on. Return to the clinic for nerve conduction study of the left upper extremity. A pain clinic consult has been requested at [facility]. documented in this encounter Progress Notes Henri Stewart MD - 12/15/2015 4:38 PM PDTThis office note has been dictated. Report Confirmation# [id number] signed by Henri Stewart MD at 12/15/2015 [...] | | | | | [place] [address] | | | | | | [phone] | | | | | | | [...] region | | | | | | ([facility]) Chronic | | | | | [...] region | | | | | | ([facility]) Chronic | | | | | [...]
--- OUTSIDE RECORDS SUMMARY | ~2019-10-27 | XMS | Encounter Summary ---
Demographics + + + | Address | [address] | | | [place] [address] | + + + | Home Phone | | + + + | Preferred Language | Unknown | + + + | Marital Status | Single | + + + | Mandaeism Affiliation | [id number] | + + + | Race | Unknown | + + + | Ethnic Group | Unknown | + + + Author + + + | Author | [facility] | | | and [place] | + + + | Organization | [facility] | | | and [place] [...] Team Providers + +------+ + | Care Extruding Press Operator Name | Role | Phone | + +------+ + | Naren Nina PA-C | PCP | | + +------+ + Encounter Details +--------+ + + + + | Date | Type | Department | Care Team | Description | +--------+ + + + + | 06/15/ | Orders Only | [facility] | Conversion | | | 2017 | | INFECTIOUS DISEASE | Transaction, | | | | | [address] | Provider Unknown | | | | | [place], [place] | | | | | | [address] | (Fax) | | | | | [phone] | | | +--------+ + + + [...] | | | | | | [place] [address] | | | | | | [phone] | | | | | | | | +--------+---------+ + + + documented as of this encounter Procedures + +--------+ + + + | Procedure Name | Priori | Date/Time | Associated Diagnosis | Comments | | | ty | | | | + +--------+ + + + | EXTERNAL LAB: CBC | Routin | 06/15/2016 | | Results for this | | | e | 12:00 AM | | procedure are in the | | | | PST | | results section. | + +--------+ + + + | HEPATITIS C, | Routin | 06/15/2016 | | Results for this | | FIBROSURE PANEL | e | 12:00 AM | | procedure are in the | | | | PST | | results section. | + +--------+ + + + | HEPATITIS C | Routin | 06/15/2016 | | Results for this | | RNA,QUANTITATIVE,PCR | e | 12:00 AM | | procedure are in the | | | | PST | | results section. | + +--------+ + + + | HEPATIC FUNCTION | Routin | 06/15/2016 | | Results for this | | PANEL | e | 12:00 AM | | procedure are in the | | | | PST | | results section. | + +--------+ + + + documented in this encounter Results Hepatitis C, Fibrosure Panel (06/15/2016 12:00 AM PST) + + + + + + | Component | Value | Ref Range | Performed | Pathologist | | | | | At | Signature | + + + + + + | HCV | 0.76 (A) | 0.00 - 0.21 | EXTERNAL | | | FibroSURE | | | LAB | | | Results | | | | | + + + + + + | FIBROSURE | [id number]: CIRRHOSIS | | EXTERNAL | | | STAGE | | | LAB | | + + + + + + | Necroinflam | 0.78 (A) | 0.00 - 0.17 | EXTERNAL | | | mat | | | LAB | | | Activity | | | | | | Score | | | | | + + + + + + | Necroinflam | [id number]: SEVERE | | EXTERNAL | | | mat | ACTIVITY | | LAB | | | Activity | | | | | | Grade | | | | | + + + + + + | Alpha | 414 (A) | 110 - 276 | EXTERNAL | | | 2-Macroglob | | | LAB | | | Peace yuen | | | | | + + + + + + | Haptoglobin | 90 | | EXTERNAL | | | | | | LAB | | + + + + + + | Apolipoprot | 122 | | EXTERNAL | | | ein A-1 | | | LAB | | + + + + + + | Bilirubin, | 0.3 | mg/dL | EXTERNAL | | | Total | | | LAB | | + + + + + + | Gamma | 302 (A) | 0 - 60 | EXTERNAL | | | Glutamyl | | | LAB | | | Transferase | | | | | + + + + + + | ALT (SGPT) | 119 (A) | 0 - 40 | EXTERNAL | [...] + + Hepatitis C RNA, quantitative, PCR (06/15/2016 12:00 AM PST) + + + + + + | Component | Value | Ref Range | Performed | Pathologist | | | | | At | Signature | + + + + + + | HCV-LOG 10 | 6.8 (A) | 0 Log IU/ml | EXTERNAL | | | | | | LAB | | + + + + + + | HCV | [id number] (A) | 0 IU/ml | EXTERNAL | [...] + +---------+ + + External Lab: CBC (06/15/2016 12:00 AM PST) + +-------+ + + + | Component | Value | Ref Range | Performed | Pathologist | | | | | At | Signature | + +-------+ + + + | WBC | 5.0 | 10 | EXTERNAL | | | | | | LAB | | + +-------+ + + + | Red Blood | 4.52 | 10 | EXTERNAL | | | Cells | | | LAB | | | Counted | | | | | + +-------+ + + + | Hemoglobin | 14.4 | g/dL | EXTERNAL | | | | | | LAB | | + +-------+ + + + | Hematocrit, | 41.7 | % | EXTERNAL | | | POC | | | LAB | | + +-------+ + + + | MCV | 92.3 | fL | EXTERNAL | | | | | | LAB | | + +-------+ + + + | MCH | 31.9 | pg | EXTERNAL | | | | | | LAB | | + +-------+ + + + | MCHC | 34.5 | g/dL | EXTERNAL | | | | | | LAB | | + +-------+ + + + | Platelet | 220 | K/ L | EXTERNAL | | | Count | | | LAB | | | Plasma | | | | | + +-------+ + + + | RDW-CV | 13.6 | % | EXTERNAL | | | [...] + + + | % Segmented | 54.8 | % | EXTERNAL | | | | | | LAB | | | Neutrophils | | | | | + +-------+ + + + | % | 35.7 | % | EXTERNAL | | | [...] + +---------+ + + Hepatic Function Panel (06/15/2016 12:00 AM PST) + +---------+ + + + | Component | Value | Ref Range | Performed | Pathologist | | | | | At | Signature | + +---------+ + + + | Protein, | 8.3 (A) | 6.2 - 8.2 g/dL | EXTERNAL | | | Total | | | LAB | | + +---------+ + + + | Albumin | 3.6 | | EXTERNAL | | | | [...] +---------+ + + + | ALP, | 133 (A) | 34 - 104 | EXTERNAL | | | External | | | LAB | | + +---------+ + + + | AST | 71 (A) | 0 - 32 U/L | EXTERNAL | | | | | | LAB | | + +---------+ + + + | ALT | 117 (A) | 0 - 33 U/L | [...]
--- OUTSIDE RECORDS SUMMARY | ~2019-10-27 | XMS | Encounter Summary ---
Demographics + + + | Address | [address] | | | [place] [address] | + + + | Home Phone | | + + + | Preferred Language | Unknown | + + + | Marital Status | Single | + + + | Holiness Affiliation | 1009 | + + + | Race | Unknown | + + + | Ethnic Group | Unknown | + + + Author + + + | Author | [facility] | | | and [place] | + + + | Organization | [facility] [...] Team Providers + +------+ + | Care Bus Or Truck Garage Mechanic Name | Role | Phone | + +------+ + | Hayden Acevedo MD | PCP | | + +------+ + Encounter Details +--------+ + + + + | Date | Type | Department | Care Team | Description | +--------+ + + + + | 09/14/ | Emergency | [facility] | Maximiliano Harrison, | Acute bronchitis | | 2015 | | MEDICAL CENTER | [address] | with COPD ([facility]); | | | | EMERGENCY CENTER | [place] [address] | Acute back pain | | | | [address] | [phone] | | | | | [place], [place] | | | | | | [address] | | | | | | [phone] | | | +--------+ + + + [...] | 2019 | Visit | | [address] | | [address] | | | | | | [place] [address] | | | | | | [phone] | | | | | | | [...]
--- OUTSIDE RECORDS SUMMARY | ~2019-10-27 | XMS | Encounter Summary ---
Demographics + + + | Address | [address] | | | [place] [address] | + + + | Home Phone | | + + + | Preferred Language | Unknown | + + + | Marital Status | Single | + + + | Denominational Affiliation | 1009 | + + + | Race | Unknown | + + + | Ethnic Group | Unknown | + + + Author + + + | Author | [facility] | | | and [place] | + + + | Organization | [facility] | | | and [...] Team Providers + +------+ + | Care Extrusion Utility Worker Name | Role | Phone | + +------+ + | Naren Nina PA-C | PCP | | + +------+ + Encounter Details +--------+ + + + + | Date | Type | Department | Care Team | Description | +--------+ + + + + | 03// | Orders Only | [facility] | Mariia Owusu, | | | 2013 | | [facility] | STREET CLEANER [address] | | | | | CARE [address] | [place] [address] | | | | | [place], [place] | [phone] | | | | | [address] | | | | | | [phone] | | | +--------+ + + + [...] Filed: 08/13/131737 Encounter Date: 08/13/2013 Status: Signed Tool And Die Engineer: Olesya Martinez Message copied by OLESYA MARTINEZ on SunAug 13, 2013 5:38 PM ------ Message from: SAMREEN SKINNER Created: SunAug 13, 2013 3:55 PM Contact: 4-Ruth- order-STRAND Ruth from [facility] need for blood work BUN and Creatine for upcoming MRI, patient wi ll need to have this done at tomorrow appointment since the MRI is scheduled for 08/18. If you have any questions, Please call patient back at [phone]. Thank you, Samreen Skinner Neighborhood Conservation Officer LANAdoblaine kennedy in this encounter Plan of Treatment +--------+---------+ + + + | Date | Type | Specialty | Care Team | Description | +--------+---------+ + + + | 10/30/ | Office | Neurosurgery | Jose Gonzalez DO | | | 2019 | Visit | | [address] | | | | | | [place] [address] | | | | | | [phone] | | | | | | | [...] EXTERNAL | | | | performed at [facility];[address] | | LAB | | | | [address];[place] [address] | | | | + + + [...] [address] | | | | | [address];[place] [address] | | | | + + + [...]
--- OUTSIDE RECORDS SUMMARY | ~2019-10-27 | XMS | Encounter Summary ---
Demographics + + + | Address | [address] | | | [place] [address] | + + + | Home Phone [...] | Author | [facility] | | | and [place] | + + + | Organization | [facility] | | | and [place] | [...] Team Providers + +------+ + | Care Rn Ortho Name | Role | Phone | + [...] PHYSIATRY [address] | MD [address] | | | | | [address] | [place] | | | | | [place], [place] | [address] | | | | | [address] | | | | | | [phone] | | | +--------+ + + + [...] | | | | | [place] [address] | | | | | | [phone] | | | | | | | | +--------+---------+ + + + documented as of this encounter Visit Diagnoses Not on filedocumented in this encounter"
--- OUTSIDE RECORDS SUMMARY | ~2019-10-27 | XMS | Encounter Summary ---
Demographics + + + | Address | [address] | | | [place] [address] | + + + | Home Phone [...] + + + | Author | [facility] | | | and [place] | + + + | Organization | [facility] | | | and [place] [...] Team Providers + +------+ + | Care Chemical Research Technician Name | Role | Phone | + +------+ + | Hayden Acevedo MD | PCP | | + +------+ + Encounter Details +--------+ + + + + | Date | Type | Department | Care Team | Description | +--------+ + + + + | 09/14/ | Emergency | [facility] | Maximiliano Harrison, | Acute bronchitis | | 2015 | | MEDICAL CENTER | [address] | with COPD ([facility]); | | | | EMERGENCY CENTER | [place] [address] | Acute back pain | | | | [address] | [phone] | | | | | [place], [place] | | | | | | [address] | | | | | | [phone] | | | +--------+ + + + [...] | | | | | [place] [address] | | | | | | [phone] | | | | | | | [...]
--- OUTSIDE RECORDS SUMMARY | ~2019-10-27 | XMS | Encounter Summary ---
Demographics + + + | Address | [address] | | | [place] [address] | + + + | Home Phone [...] | Author | [facility] | | | and [place] | + + + | Organization | [facility] | | | and [...] Team Providers + +------+ + | Care Latin Dance Instructor Name | Role | Phone | + +------+ + | Naren Nina PA-C | PCP | | + +------+ + Encounter Details +--------+ + + + + | Date | Type | Department | Care Team | Description | +--------+ + + + + | 03/17/ | Orders Only | [facility] | Hall[facility]imiliano L, | | | 2013 | | [facility] [address] | DPM [address] | | | | | [address] | [address] [place], | | | | | [place], [place] | [place] [address] | | | | | [address] | [phone] | | | | | [phone] | | | +--------+ + + + [...] | | | | | [place] [address] | | | | | | [phone] | | | | | | | [...]
--- OUTSIDE RECORDS SUMMARY | ~2019-10-27 | XMS | Encounter Summary ---
Demographics + + + | Address | [address] | | | [place] [address] | + + + | Home Phone [...] | Author | [facility] | | | and [place] | + + + | Organization | [facility] | | | and [...] Team Providers + +------+ + | Care Professional Services Manager Name | Role | Phone | [...] | | | | low back | [address] | [address] | | | | | pain with | [place], | [place], | | | | | bilateral | [place] [address] | [place] [address] | | | | | sciatica | Phone: | Phone: | | | | | Cervicalgia | [phone] | [phone] | | | | | Cervical | Fax: | Fax: | | | | | radiculopath | [phone] | [phone] | | | | | y Facet [...] PHYSIATRY [address] | MD [address] | low back pain with | | | | [address] | [place], [place] | bilateral sciatica | | | | [place], [place] | [address] | (Primary Dx); | | | | [address] | | Cervicalgia; | | | | [phone] | | Cervical | | | | | | radiculopathy; Facet | | | | | | arthritis of | | | | | | cervical region | | | | | | ([facility]) | +--------+ + + + + Social [...] | | | | | [place] [address] | | | | | | [phone] | | | | | | | [...]
--- OUTSIDE RECORDS SUMMARY | ~2019-10-27 | XMS | Encounter Summary ---
Demographics + + + | Address | [address] | | | [place] [address] | + + + | Home Phone [...] + + | Author | [facility] | | | and [place] | + + + | Organization | [facility] | [...] Team Providers + +------+ + | Care Structural Welder Name | Role | Phone | + +------+ + | [place] Acevedo MD | PCP | | + +------+ + Encounter Details +--------+ + + + + | Date | Type | Department | Care Team | Description | +--------+ + + + + | 01/30/ | Hospital | [facility] | Juan Alberto Worrell MD | Thoracic or | | 2013 | Encounter | [facility] [address] | [address] | lumbosacral neuritis | | | | [address] | [address] | or radiculitis, | | | | [place], [place] | [place] | unspecified; | | | | [address] | [address] | Radiculopathy of | | | | [phone] | [phone] | lumbar region; | | | | [...] Date of Service: 01/30/14 1800 Status: Signed Fiberglass Roller: Geovanna Fischer RN (Registered Nurse) Discharge teaching [...] Betancourt PA-C Service: Neurosurgery Author Type: Physician Blast Furnace Keeper Helper - Ce rtified Filed: 01/30/14 1606 Date of Service: 01/30/14 1602 Status: Signed Fiberglass Roller: Keesha Betancourt PA-C (Physician Blast Furnace Keeper Helper - Certified) [facility] Service: Neurosurgery Progress Note Hospital Day: LOS: [...] home. Follow up in 2 weeks in [facility] clinic. Discharge instructions given. Rx giv en for percocet and rolling walker. Disposition: Good Code Status: Full Code Keesha Betancourt PA-C 01/30/2014 lmendel, Me singh Hilton PT - 01/30/2014 2:44 PM PDTFormatting of this note might be different from the christian saede. Therapy Progress Note by Demi Paige, PT at 01/30/14 1444 Author: Demi Paige PT Service: (none) Author Type: Physical Therapist Filed: 01/30/14 1540 Date of Service: 01/30/141443 Status: Signed Fiberglass Roller: Demi Paige PT (Physical Therapist) 01/30/14 1444 PT Last Visit PT Received On 01/30/14 Reason for Treatment Spinal surgery Requires PT Follow Up No PT Eval/Reassessment Date 01/30/14 Assistance Required 1 person;Independent Mh Teacher Needed No Requires PT Follow Up No [...] Walker front wheeled Prior Function Level of [place] Modified independent with functional mobility;Modified independent wi [...] Eval/Reassessment Date 01/30/14 Assistance Required 1 person;Independent Mh Teacher Needed No Precautions Spinal Precautions Lumbar Other [...] 01/30/141121 Date of Service: 01/30/141121 Status: Signed Fiberglass Roller: Marnie Dewitt RPH (Pharmacist) Renal Dosing Monitoring: Nohemi Espitia 53 y.o. female Pharmacy dosing for renal function per Porfirio Betancourt Plan per protocol: No scr available at this time Pharmacy will continue monitoring patient for appropriate dosing per renal function. 01/30/2014 11:22 AM Pharmacist: MARNIE DEWITT docuana morales in this encounter Plan of Treatment +--------+---------+ + + + | Date | Type | Specialty | Care Team | Description | +--------+---------+ + + + | 10/30/ | Office | Neurosurgery | Jose Gonzalez DO | | | 2019 | Visit | | [address] | | | | | | [place] [address] | | | | | | [phone] | | | | | | | [...]
--- OUTSIDE RECORDS SUMMARY | ~2019-10-27 | XMS | Encounter Summary ---
Demographics + + + | Address | [address] | | | [place] [address] | + + + | Home Phone [...] + | Author | [facility] | | | and [place] | + + + | Organization | [facility] | | | and [place] [...] Team Providers + +------+ + | Care Electrical Designer Drafter Name | Role | Phone | + +------+ + | Hayden Acevedo MD | PCP | | + +------+ + Encounter Details +--------+ + + + + | Date | Type | Department | Care Team | Description | +--------+ + + + + | 01/10/ | Hospital | [facility] | Sveta Calderon, | Acute renal failure, | | 2015 - | Encounter | [facility] | [address] | unspecified acute | | | | CARE [address]LO[address] | [place] [address] | renal failure type | | 01/13/ | | [address] | [phone] | (HCC); Essential | | 2014 | | [place], [place] | | hypertension; | | | | [address] | | Leukocytosis, | | | | [phone] | | unspecified; | | | | [...] 01/13/152054 Date of Service: 01/13/151438 Status: Signed Extension Work Director: Tico Suarez MD (Physician) Related Notes: Original Note by Tico Suarez MD (Physician) filed at 01/13/15 14 55 [facility] Service: Hospitalist Physician Discharge Summary Pt: Nohemi Espitia AGE/SEX: 54 y.o. female ROOM: [facility]/6608-1 PCP: Naren Nina (General) : [...] 54 No results for input(s): PHART, PO2ART, JBT1VXI, Z9EGZUIY, BEART in the last 168 hours. Recent [...] with you. STOP taking these medications ergocalciferol 41723 UNITS capsule Commonly known as: DRISDOL famotidine [...] 01/12/152053 Date of Service: 01/12/152047 Status: Signed Extension Work Director: Jackson Mas MD (Physician) [facility] Service: Gastroenterology Progress Note Hospital Day: LOS: [...] 01/12/152101 Date of Service: 01/12/151855 Status: Addendum Extension Work Director: Tico Suarez MD (Physician) Related Notes: Original Note by Danita Burr MD-R2 (Resident-Y2) filed at 2019 [facility] Service: Hospitalist Progress Note Hospital Day: LOS: [...] upper GI endoscopy by Dr. Benitez at [facility] in [place]. She denies alcohol use. Pain level is [...] or chills. Last colo noscopy was at [facility] and was told it was normal. Denies aspirin or an ticoagulant use. Does take ibuprofen on and off. Denies any left precordial chest pain, arm pain, or jaw pain. No previous history of TX. Denies dizziness, lightheadedness, syncope. apparently she was transiently confused per her significant other. She takes Prilos ec b.i.d. for GERD but has not noted any improvement in her symptoms. Workup in the emergency room showed leukocytosis of 16,000 with neutrophils 77%, no bands. Her H and H has remained stable since her last labs in the [facility] that is hemoglobin 12, hemat ocrit [...] Author: OG Granger Service: (none) Author Type: Online Community Manager Filed: 01/12/15 1435 Date of Service: 01/12/151432 Status: Signed Extension Work Director: OG Granger (Online Community Manager) 01/12/15 1420 Discharge Planning Evaluation Admitting Diagnosis Gi Bleed Readmission No Living Arrangements Spouse/significant other Support Systems Spouse/significant other;Family members Type of Residence Private residence Independent with ADL's Yes Independent with Mobility No-comment (Ambulates with a walker) Home Care Services No Caregiver after Discharge No Mental Status Oriented Power of Industrial Waste Inspector No Anticipated Discharge Plan Post Acute Care Needs None at this time Plan communicated to patient/family Yes Resources Financial concerns No Transportation issues No (Friends or [place] Care van) Patient/Family concerns No Prescription Plan [...] None Assistance in transportation: Family, friends or [place] care van Identification of any specific education [...] 0523 Date of Service: 01/12/15520 Status: Signed Extension Work Director: Demi Westfall RN (Registered Nurse) Patient resting [...] 01/12/15247 Date of Service: 01/12/15246 Status: Signed Extension Work Director: Demi Westfall RN (Registered Nurse) Patient very [...] 0039 Date of Service: 01/12/1537 Status: Signed Extension Work Director: Majo Dsouza RN (Registered Nurse) Pt asked [...] 0017 Date of Service: 01/11/152341 Status: Attested Extension Work Director: DONA QuesadaR2 (Resident-Y2) Cosigner: Contreras Burroughs MD at 1614 Attestation signed by Contreras Burroughs MD at 01/12/151614 I have seen and examined the patient and agree with the resident note. I have directed the care plan [facility] Service: Hospitalist Progress Note Hospital Day: LOS: [...] upper GI endoscopy by Dr. Benitez at [facility] in [place]. She denies alcohol use. Pain level is [...] or chills. Last colo noscopy was at [facility] and was told it was normal. Denies aspirin or an ticoagulant use. Does take ibuprofen on and off. Denies any left precordial chest pain, arm pain, or jaw pain. No previous history of TX. Denies dizziness, lightheadedness, syncope. La st night apparently she was transiently confused per her significant other. She takes Prilos ec b.i.d. for GERD but has not noted any improvement in her symptoms. Workup in the emergency room showed leukocytosis of 16,000 with neutrophils 77%, no bands. Her H and H has remained stable since her last labs in the [facility] that is hemoglobin 12, hemat ocrit [...] NSAID induced gastritis ARF (acute renal failure) ([facility]) Abnormal LFTs Leukocytosis, unspecified Metabolic acidosis [facility] [...] Note by Shamir Do RN at 01/11/15 9521 Author: Shamir Do RN Service: (none) Author Type: Registered Nurse Filed: 01/11/15 1403 Date of Service: 01/11/15 1401 Status: Signed Extension Work Director: Shamir Do RN (Registered Nurse) Report called to Marvin Rn in Out Patient Procedures regarding EGD with Dr. Mas. All ques tions addressed. Electronically signed by Con[facility], Provider at 01/25/2019 2:57 PM PDTConver david Transaction, Provider Unknown - 01/10/2015 11:08 PM PDT Nurse Progress Note by Batsheva Nagy RN at 01/10/152307 Author: Batsheva Nagy RN Service: (none) Author Type: Registered Nurse Filed: 01/10/152311 Date of Service: 01/10/152307 Status: Signed Extension Work Director: Batsheva Nagy RN (Registered Nurse) Patient having [...] 1425 Date of Service: 01/10/151424 Status: Signed Extension Work Director: Shamir Do RN (Registered Nurse) All po medications held per Dr. Mas. Behavioral Specialist. hahla Fong RPH - 01/10/2015 1:39 PM PDTFormatting of this note might be different from t josiah original. Progress Notes by Shahla Kam RPH at 01/10/151338 Author: Shahla Kam RPH Service: (none) Author Type: Pharmacist Filed: 01/10/151338 Date of Service: 01/10/151338 Status: Signed Extension Work Director: Shahla Kam RPH (Pharmacist) Clinical Pharmacy Note - Renal Dose Adjustment Nohemi Espitia 54 y.o. female Ht Readings from Last 1 Encounters: 01/10/15 1.702 m (5' 7") Wt Readings from Last 1 Encounters: 01/10/15 108.6 kg (239 lb 6.7 oz) CREATININE Date Value Ref Range Status 01/10/2015 2.6* 0.50 - 1.00 mg/dL Final Comment: Testing performed at [facility];[address] [place] [address];[place] [address] CREATININE: 2.6 mg/dL ABNORMAL (01/10/15902) Estimated creatinine [...] | | | | | [place] [address] | | | | | | [phone] | | | | | | | [...] EXTERNAL | | | | performed at [facility];[address] | g/dL | LAB | | | | [address];[place] | | | | | | [address] | | | | + + + + + + | Hematocrit, | 30.2 (L)Comment: Testing | 34.0 - 46.0 % | EXTERNAL | | | POC | performed at [facility];[address] | | LAB | | | | [address];[place] | | | | | | [address] | | | | + + + [...] EXTERNAL | | | | performed at [facility], [address] | K/uL | LAB | | | | [address], | | | | | | [place] [address] | | | | + + + + + + | Red Blood | 3.21 (L)Comment: Testing | 3.70 - 5.10 | EXTERNAL | | | Cells | performed at [facility], [address] | M/uL | LAB | | | Counted | [address], | | | | | | [place] [address] | | | | + + + + + + | Hemoglobin | 9.5 (L)Comment: Testing | 11.3 - 15.5 | EXTERNAL | | | | performed at [facility], [address] | g/dL | LAB | | | | [address], | | | | | | [place] [address] | | | | + + + + + + | Hematocrit, | 29.9 (L)Comment: Testing | 34.0 - 46.0 % | EXTERNAL | | | POC | performed at [facility], [address] | | LAB | | | | [address], | | | | | | [place] [address] | | | | + + + + + + | MCV | 93.2Comment: Testing | 80.0 - 100.0 fl | EXTERNAL | | | | performed at [facility], [address] | | LAB | | | | [address], | | | | | | [place] [address] | | | | + + + + + + | MCH | 29.5Comment: Testing | 27.0 - 34.0 pg | EXTERNAL | | | | performed at [facility], [address] | | LAB | | | | [address], | | | | | | [place] [address] | | | | + + + + + + | MCHC | 31.7 (L)Comment: Testing | 32.0 - 35.5 | EXTERNAL | | | | performed at [facility], [address] | g/dL | LAB | | | | [address], | | | | | | [place] [address] | | | | + + + + + + | RDW-CV | 47.7Comment: Testing | 37 - 53 fl | EXTERNAL | | | | performed at [facility], [address] | | LAB | | | | [address], | | | | | | [place] [address] | | | | + + + + + + | Platelet | 172Comment: Testing | 150 - 400 K/uL | EXTERNAL | | | Count | performed at [facility], [address] | | LAB | | | Plasma | [address], | | | | | | [place] [address] | | | | + + + + + + | MPV | 8.6Comment: Testing | fl | EXTERNAL | | | | performed at [facility], [address] | | LAB | | | | [address], | | | | | | [place] [address] | | | | + + + + + + | Differentia | AUTOMATEDComment: | | EXTERNAL | | | l Type | Testing performed at | | LAB | | | | [facility], [address] | | | | | | [place] | | | | | | [address] | | | | + + + + + + | % Segmented | 45.95Comment: Testing | % | EXTERNAL | | | | performed at [facility], [address] | | LAB | | | Neutrophils | [address], | | | | | | [place] [address] | | | | + + + + + + | % | 37.77Comment: Testing | % | EXTERNAL | | | Lymphocytes | performed at [facility], [address] | | LAB | | | | [address], | | | | | | [place] [address] | | | | + + + + + + | % Monocytes | 8.27Comment: Testing | % | EXTERNAL | | | | performed at [facility], [address] | | LAB | | | | [address], | | | | | | [place], [place] [address] | | | | + + + + + + | % | 7.21Comment: Testing | % | EXTERNAL | | | Eosinophils | performed at [facility], [address] | | LAB | | | | [address], | | | | | | [place] [address] | | | | + + + + + + | % Basophils | 0.80Comment: Testing | % | EXTERNAL | | | | performed at [facility], [address] | | LAB | | | | [address], | | | | | | [place] [address] | | | | + + + + + + | Absolute | 2.11Comment: Testing | 1.90 - 7.40 | EXTERNAL | | | Segmented | performed at [facility], [address] | K/uL | LAB | | | Neutrophils | [address], | | | | | | [place] [address] | | | | + + + + + + | Absolute | 1.73Comment: Testing | 1.00 - 3.90 | EXTERNAL | | | Lymphocytes | performed at [facility], [address] | K/uL | LAB | | | | [address], | | | | | | [place] [address] | | | | + + + + + + | Absolute | 0.38Comment: Testing | 0.00 - 0.80 | EXTERNAL | | | Monocytes | performed at [facility], [address] | K/uL | LAB | | | | [address], | | | | | | [place] [address] | | | | + + + + + + | Absolute | 0.33Comment: Testing | 0.00 - 0.50 | EXTERNAL | | | Eosinophils | performed at [facility], [address] | K/uL | LAB | | | | [address], | | | | | | [place] [address] | | | | + + + + + + | Absolute | 0.04Comment: Testing | 0.00 - 0.10 | EXTERNAL | | | Basophils | performed at [facility], [address] | K/uL | LAB | | | | [address], | | | | | | [place] [address] | | | | + + + [...] EXTERNAL | | | | performed at [facility], [address] | | LAB | | | | [facility], | | | | | | [place] [address] | | | | + + + [...] EXTERNAL | | | | performed at [facility], [address] | | LAB | | | | [address], | | | | | | [place] [address] | | | | + + + [...] | | | | | [place] [address] | | | | + + + + + + | K | 3.9Comment: Testing | 3.5 - 4.9 | EXTERNAL | | | | performed at [facility], [address] | mmol/L | LAB | | | | [address], | | | | | | [place] [address] | | | | + + + + + + | Cl | 116 (H)Comment: Testing | 99 - 109 mmol/L | EXTERNAL | | | | performed at [facility], [address] | | LAB | | | | [address], | | | | | | [place] [address] | | | | + + + + + + | CO2 | 24Comment: Testing | 23 - 32 mmol/L | EXTERNAL | | | | performed at [facility], [address] | | LAB | | | | [address], | | | | | | [place] [address] | | | | + + + + + + | Anion Gap | 2 (L)Comment: Testing | 5 - 20 mmol/L | EXTERNAL | | | | performed at [facility], [address] | | LAB | | | | [address], | | | | | | [place] [address] | | | | + + + + + + | Glucose, | 98Comment: Testing | 65 - 99 mg/dL | EXTERNAL | | | Fasting | performed at [facility], [address] | | LAB | | | | [address], | | | | | | [place] [address] | | | | + + + + + + | BUN | 7 (L)Comment: Testing | 8 - 25 mg/dL | EXTERNAL | | | | performed at [facility], [address] | | LAB | | | | [address], | | | | | | [place] [address] | | | | + + + + + + | Creatinine | 0.58Comment: Testing | 0.50 - 1.00 | EXTERNAL | | | | performed at [facility], [address] | mg/dL | LAB | | | | [address], | | | | | | [place] [address] | | | | + + + + + + | BUN/Creatin | 12Comment: Testing | | EXTERNAL | | | ine Ratio | performed at [facility], [address] | | LAB | | | | [address], | | | | | | [place] [address] | | | | + + + + + + | Calcium | 8.2 (L)Comment: Testing | 8.5 - 10.5 | EXTERNAL | | | | performed at [facility], [address] | mg/dL | LAB | | | | [address], | | | | | | [place] [address] | | | | + + + + + + | Protein, | 5.8 (L)Comment: Testing | 6.3 - 8.2 g/dL | EXTERNAL | | | Total | performed at [facility], [address] | | LAB | | | | [address], | | | | | | [place] [address] | | | | + + + + + + | Albumin | 2.6 (L)Comment: Testing | 3.6 - 5.0 g/dL | EXTERNAL | | | | performed at [facility], [address] | | LAB | | | | [address], | | | | | | [place] [address] | | | | + + + + + + | Globulin | 3.2Comment: Testing | 1.3 - 4.9 g/dL | EXTERNAL | | | | performed at [facility], [address] | | LAB | | | | [address], | | | | | | [place] [address] | | | | + + + + + + | A/G Ratio | 0.8 (L)Comment: Testing | 1.0 - 2.4 | EXTERNAL | | | | performed at [facility], [address] | | LAB | | | | [address], | | | | | | [place] [address] | | | | + + + + + + | Bilirubin | 0.2Comment: Testing | 0.1 - 1.5 mg/dL | EXTERNAL | | | Total | performed at [facility], [address] | | LAB | | | | [address], | | | | | | [place] [address] | | | | + + + + + + | ALP, | 77Comment: Testing | 35 - 115 U/L | EXTERNAL | | | External | performed at [facility], [address] | | LAB | | | [address], | | | | | | [place] [address] | | | | + + + + + + | AST | 96 (H)Comment: Testing | 10 - 45 U/L | EXTERNAL | | | | performed at [facility], [address] | | LAB | | | | [address], | | | | | | [place] [address] | | | | + + + + + + | ALT | 115 (H)Comment: Testing | 10 - 65 U/L | EXTERNAL | | | | performed at [facility], [address] | | LAB | | | | [address], | | | | | | [place] [address] | | | | + + + [...] | | | | | | at [facility], [address] | | | | | | [address], | | | | | | [place] [address] | | | | + + + [...] EXTERNAL | | | | performed at [facility];[address] | g/dL | LAB | | | | [address];[place] | | | | | | [address] | | | | + + + + + + | Hematocrit, | 29.8 (L)Comment: Testing | 34.0 - 46.0 % | EXTERNAL | | | POC | performed at [facility];[address] | | LAB | | | | [address];[place] | | | | | | [address] | | | | + + + [...] EXTERNAL | | | | performed at [facility];[address] | g/dL | LAB | | | | [address];[place] | | | | | | [address] | | | | + + + + + + | Hematocrit, | 29.0 (L)Comment: Testing | 34.0 - 46.0 % | EXTERNAL | | | POC | performed at [facility];[address] | | LAB | | | | [address];[place] | | | | | | [address] | | | | + + + [...] EXTERNAL | | | | performed at [facility];[address] | g/dL | LAB | | | | [address];[place] | | | | | | [address] | | | | + + + + + + | Hematocrit, | 30.1 (L)Comment: Testing | 34.0 - 46.0 % | EXTERNAL | | | POC | performed at [facility];[address] | | LAB | | | | [address];[place] | | | | | | [address] | | | | + + + [...] EXTERNAL | | | | performed at [facility], [address] | K/uL | LAB | | | | [address], | | | | | | [place] [address] | | | | + + + + + + | Red Blood | 3.28 (L)Comment: Testing | 3.70 - 5.10 | EXTERNAL | | | Cells | performed at [facility], [address] | M/uL | LAB | | | Counted | [address], | | | | | | [place] [address] | | | | + + + + + + | Hemoglobin | 9.9 (L)Comment: Testing | 11.3 - 15.5 | EXTERNAL | | | | performed at [facility], [address] | g/dL | LAB | | | | [address], | | | | | | [place] [address] | | | | + + + + + + | Hematocrit, | 30.6 (L)Comment: Testing | 34.0 - 46.0 % | EXTERNAL | | | POC | performed at [facility], [address] | | LAB | | | | [address], | | | | | | [place] [address] | | | | + + + + + + | MCV | 93.3Comment: Testing | 80.0 - 100.0 fl | EXTERNAL | | | | performed at [facility], [address] | | LAB | | | | [address], | | | | | | [place] [address] | | | | + + + + + + | MCH | 30.0Comment: Testing | 27.0 - 34.0 pg | EXTERNAL | | | | performed at [facility], [address] | | LAB | | | | [address], | | | | | | [place] [address] | | | | + + + + + + | MCHC | 32.2Comment: Testing | 32.0 - 35.5 | EXTERNAL | | | | performed at [facility], [address] | g/dL | LAB | | | | [address], | | | | | | [place] [address] | | | | + + + + + + | RDW-CV | 47.7Comment: Testing | 37 - 53 fl | EXTERNAL | | | | performed at [facility], [address] | | LAB | | | | [address], | | | | | | [place] [address] | | | | + + + + + + | Platelet | 158Comment: Testing | 150 - 400 K/uL | EXTERNAL | | | Count | performed at [facility], [address] | | LAB | | | Plasma | [address], | | | | | | [place] [address] | | | | + + + + + + | MPV | 8.9Comment: Testing | fl | EXTERNAL | | | | performed at [facility], [address] | | LAB | | | | [address], | | | | | | [place] [address] | | | | + + + + + + | Differentia | AUTOMATEDComment: | | EXTERNAL | | | l Type | Testing performed at | | LAB | | | | [facility], [address] | | | | | | [place] | | | | | | [address] | | | | + + + + + + | % Segmented | 56.56Comment: Testing | % | EXTERNAL | | | | performed at [facility], [address] | | LAB | | | Neutrophils | [address], | | | | | | [place], [place] [address] | | | | + + + + + + | % | 29.02Comment: Testing | % | EXTERNAL | | | Lymphocytes | performed at [facility], [address] | | LAB | | | | [address], | | | | | | [place] [address] | | | | + + + + + + | % Monocytes | 8.64Comment: Testing | % | EXTERNAL | | | | performed at [facility], [address] | | LAB | | | | [address], | | | | | | [place] [address] | | | | + + + + + + | % | 5.18Comment: Testing | % | EXTERNAL | | | Eosinophils | performed at [facility], [address] | | LAB | | | | [address], | | | | | | [place] [address] | | | | + + + + + + | % Basophils | 0.60Comment: Testing | % | EXTERNAL | | | | performed at [facility], [address] | | LAB | | | | [address], | | | | | | [place] [address] | | | | + + + + + + | Absolute | 3.12Comment: Testing | 1.90 - 7.40 | EXTERNAL | | | Segmented | performed at [facility], [address] | K/uL | LAB | | | Neutrophils | [address], | | | | | | [place] [address] | | | | + + + + + + | Absolute | 1.60Comment: Testing | 1.00 - 3.90 | EXTERNAL | | | Lymphocytes | performed at [facility], [address] | K/uL | LAB | | | | [address], | | | | | | [place] [address] | | | | + + + + + + | Absolute | 0.48Comment: Testing | 0.00 - 0.80 | EXTERNAL | | | Monocytes | performed at [facility], [address] | K/uL | LAB | | | | [address], | | | | | | [place] [address] | | | | + + + + + + | Absolute | 0.29Comment: Testing | 0.00 - 0.50 | EXTERNAL | | | Eosinophils | performed at [facility], [address] | K/uL | LAB | | | | [address], | | | | | | [place] [address] | | | | + + + + + + | Absolute | 0.03Comment: Testing | 0.00 - 0.10 | EXTERNAL | | | Basophils | performed at [facility], [address] | K/uL | LAB | | | | [address], | | | | | | [place] [address] | | | | + + + [...] EXTERNAL | | | | performed at [facility], [address] | | LAB | | | | [address], | | | | | | [place] [address] | | | | + + + [...] EXTERNAL | | | | performed at [facility], [address] | | LAB | | | | [address], | | | | | | [place] [address] | | | | + + + [...] | | | | | [place] [address] | | | | + + + + + + | K | 4.0Comment: Testing | 3.5 - 4.9 | EXTERNAL | | | | performed at [facility], [address] | mmol/L | LAB | | | | [address], | | | | | | [place] [address] | | | | + + + + + + | Cl | 117 (H)Comment: Testing | 99 - 109 mmol/L | EXTERNAL | | | | performed at [facility], [address] | | LAB | | | | [address], | | | | | | [place] [address] | | | | + + + + + + | CO2 | 18 (L)Comment: Testing | 23 - 32 mmol/L | EXTERNAL | | | | performed at [facility], [address] | | LAB | | | | [address], | | | | | | [place] [address] | | | | + + + + + + | Anion Gap | 7Comment: Testing | 5 - 20 mmol/L | EXTERNAL | | | | performed at [facility], [address] | | LAB | | | | [address], | | | | | | [place] [address] | | | | + + + + + + | Glucose, | 137 (H)Comment: Testing | 65 - 99 mg/dL | EXTERNAL | | | Fasting | performed at [facility], [address] | | LAB | | | | [address], | | | | | | [place] [address] | | | | + + + + + + | BUN | 8Comment: Testing | 8 - 25 mg/dL | EXTERNAL | | | | performed at [facility], [address] | | LAB | | | | [address], | | | | | | [place] [address] | | | | + + + + + + | Creatinine | 0.57Comment: Testing | 0.50 - 1.00 | EXTERNAL | | | | performed at [facility], [address] | mg/dL | LAB | | | | [address], | | | | | | [place] [address] | | | | + + + + + + | BUN/Creatin | 14Comment: Testing | | EXTERNAL | | | ine Ratio | performed at [facility], [address] | | LAB | | | | [address], | | | | | | [place] [address] | | | | + + + + + + | Calcium | 8.2 (L)Comment: Testing | 8.5 - 10.5 | EXTERNAL | | | | performed at [facility], [address] | mg/dL | LAB | | | | [address], | | | | | | [place] [address] | | | | + + + + + + | Protein, | 5.9 (L)Comment: Testing | 6.3 - 8.2 g/dL | EXTERNAL | | | Total | performed at [facility], [address] | | LAB | | | [address], | | | | | | [place] [address] | | | | + + + + + + | Albumin | 2.5 (L)Comment: Testing | 3.6 - 5.0 g/dL | EXTERNAL | | | | performed at [facility], [address] | | LAB | | | | [address], | | | | | | [place] [address] | | | | + + + + + + | Globulin | 3.4Comment: Testing | 1.3 - 4.9 g/dL | EXTERNAL | | | | performed at [facility], [address] | | LAB | | | | [address], | | | | | | [place] [address] | | | | + + + + + + | A/G Ratio | 0.7 (L)Comment: Testing | 1.0 - 2.4 | EXTERNAL | | | | performed at [facility], [address] | | LAB | | | | [address], | | | | | | [place] [address] | | | | + + + + + + | Bilirubin | 0.3Comment: Testing | 0.1 - 1.5 mg/dL | EXTERNAL | | | Total | performed at [facility], [address] | | LAB | | | | [address], | | | | | | [place] [address] | | | | + + + + + + | ALP, | 74Comment: Testing | 35 - 115 U/L | EXTERNAL | | | External | performed at [facility], [address] | | LAB | | | | [address], | | | | | | [place] [id number] | | | | + + + + + + | AST | 160 (H)Comment: Testing | 10 - 45 U/L | EXTERNAL | | | | performed at [facility], [address] | | LAB | | | | [address], | | | | | | [place] [address] | | | | + + + + + + | ALT | 135 (H)Comment: Testing | 10 - 65 U/L | EXTERNAL | | | | performed at [facility], [address] | | LAB | | | | [address], | | | | | | [place] [address] | | | | + + + [...] | | | | | | at [facility], [address] | | | | | | [facility], | | | | | | [place] [address] | | | | + + + [...] EXTERNAL | | | | performed at [facility];888 | g/dL | LAB | | | | [address];[place] | | | | | | [address] | | | | + + + + + + | Hematocrit, | 31.4 (L)Comment: Testing | 34.0 - 46.0 % | EXTERNAL | | | POC | performed at [facility];888 | | LAB | | | | [address];[place] | | | | | | [address] | | | | + + + [...] | | technical preparation was performed by [facility] | | | [address] [address] | | | (Highway Painter: Maximiliano Smith M.D.; [facility]#: [id number]). | | | Diagnostician: Adela Mixon MD [...] EXTERNAL | | | | performed at [facility];888 | g/dL | LAB | | | | [address];[place] | | | | | | [address] | | | | + + + + + + | Hematocrit, | 30.5 (L)Comment: Testing | 34.0 - 46.0 % | EXTERNAL | | | POC | performed at [facility];888 | | LAB | | | | [address];[place] | | | | | | [address] | | | | + + + [...] | | | | | | at [facility];[address] | [address];[place] [address] | | | | + + + + + + | Methampheta | POSITIVE (A)Comment: | | EXTERNAL | | | mine | The cutoff for a | | LAB | | | Screen, UA, | positive mAMP is 1000 | | | | | POC | ng/mL.Testing performed | | | | | | at [facility];[address] | | | | | | [address];[place] [address] | | | | + + + [...] | | | Screen, | performed at [facility];888 | | | | | UA, POC | [address];[place] | | | | | | [address] | | | | + + + + + + | Barbiturate | NEGATIVEComment: | | EXTERNAL | | | s Screen, | Positive cutoff for | | LAB | | | Urine | SHAUNA = 200 ng/mLTesting | | | | | | performed at [facility];8 | | | | | | [address];[place] | | | | | | [address] | | | | + + + + + + | Benzodiazep | NEGATIVEComment: | | EXTERNAL | | | aura | Positive cutoff for | | LAB | | | Screen, | BENZO = 200 ng/mLTesting | | | | | Urine | performed at [facility];8 | | | | | | [address];[place] | | | | | | [address] | | | | + + + + + + | Cocaine | NEGATIVEComment: | | EXTERNAL | | | | Positive cutoff for | | LAB | | | | MARYAM = 300 ng/mLTesting | | | | | | performed at [facility];888 | | | | | | [address];[place] | | | | | | [address] | | | | + + + + + + | Methadone | NEGATIVEComment: | | EXTERNAL | | | | Positive cutoff for | | LAB | | | | MTD = 300 ng/mLTesting | | | | | | performed at [facility];888 | | | | | | [address];[place] | | | | | | [address] | | | | + + + + + + | Opiates | POSITIVE (A)Comment: | | EXTERNAL | | | | Positive cutoff for | | LAB | | | | OPI = 300 ng/mLTesting | | | | | | performed at [facility];888 | | | | | | [address];[place] | | | | | | [address] | | | | + + + + + + | PCP | NEGATIVEComment: | | EXTERNAL | | | | Positive cutoff for PCP | | LAB | | | | = 25 ng/mLTesting | | | | | | performed at [facility];888 | | | | | | [address];[place] | | | | | | [address] | | | | + + + [...] | | | | | performed at [facility];888 | | | | | | [facility];[place], [place] | | | | | | [address] | | | | + + + [...] EXTERNAL | | | | performed at [facility];888 | g/dL | LAB | | | | [address];[place] | | | | | | [address] | | | | + + + + + + | Hematocrit, | 31.2 (L)Comment: Testing | 34.0 - 46.0 % | EXTERNAL | | | POC | performed at [facility];888 | | LAB | | | | [address];[place] | | | | | | [address] | | | | + + [...] | | | | | | [place] [address] | | | | + + + + + + | TIBC | 282Comment: Testing | 260 - 490 ug/dL | EXTERNAL | | | | performed at [facility], [address] | | LAB | | | | [address], | | | | | | [place] [address] | | | | + + + + + + | Iron | 12 (L)Comment: Testing | 15 - 50 % | EXTERNAL | | | Saturation | performed at [facility], [address] | | LAB | | | [address], | | | | | | [place] [address] | | | | + + + [...] | | | Reticulocyt | performed at [facility], [address] | | LAB | | | e Count | [address], | | | | | | [place] [address] | | | | + + + [...] EXTERNAL | | | | performed at [facility], [address] | | LAB | | | | [address], | | | | | | [place] [address] | | | | + + + [...] | | | External | performed at [facility], [address] | | LAB | | | | [address], | | | | | | [place] [address] | | | | + + + [...] | | | B-12 | performed at [facility], [address] | pg/mL | LAB | | | | [address], | | | | | | [place] [address] | | | | + + + [...] | | | | | performed at [facility];888 | | | | | | [address] [facility];[place], [place] | | | | | | [address] | | | | + + + [...] K/uL | LAB | | | | [facility], [address] | | | | | | [place] | | | | | | [address] | | | | + + + + + + | Red Blood | 3.57 (L)Comment: Testing | 3.70 - 5.10 | EXTERNAL | | | Cells | performed at [facility], [address] | M/uL | LAB | | | Counted | [address], | | | | | | [place] [address] | | | | + + + + + + | Hemoglobin | 10.6 (L)Comment: Testing | 11.3 - 15.5 | EXTERNAL | | | | performed at [facility], [address] | g/dL | LAB | | | | [address], | | | | | | [place] [address] | | | | + + + + + + | Hematocrit, | 33.0 (L)Comment: Testing | 34.0 - 46.0 % | EXTERNAL | | | POC | performed at [facility], [address] | | LAB | | | | [address], | | | | | | [place] [address] | | | | + + + + + + | MCV | 92.5Comment: Testing | 80.0 - 100.0 fl | EXTERNAL | | | | performed at [facility], [address] | | LAB | | | | [address], | | | | | | [place] [address] | | | | + + + + + + | MCH | 29.8Comment: Testing | 27.0 - 34.0 pg | EXTERNAL | | | | performed at [facility], [address] | | LAB | | | | [address], | | | | | | [place] [address] | | | | + + + + + + | MCHC | 32.2Comment: Testing | 32.0 - 35.5 | EXTERNAL | | | | performed at [facility], [address] | g/dL | LAB | | | | [address], | | | | | | [place] [address] | | | | + + + + + + | RDW-CV | 46.4Comment: Testing | 37 - 53 fl | EXTERNAL | | | | performed at [facility], [address] | | LAB | | | | [address], | | | | | | [place] [address] | | | | + + + + + + | Platelet | 184Comment: Testing | 150 - 400 K/uL | EXTERNAL | | | Count | performed at [facility], [address] | | LAB | | | Plasma | [address], | | | | | | [place] [address] | | | | + + + + + + | MPV | 8.9Comment: Testing | fl | EXTERNAL | | | | performed at [facility], [address] | | LAB | | | | [address], | | | | | | [place] [address] | | | | + + + + + + | Differentia | AUTOMATEDComment: | | EXTERNAL | | | l Type | Testing performed at | | LAB | | | | [facility], [address] | | | | | | [place] | | | | | | [address] | | | | + + + + + + | % Segmented | 68.68Comment: Testing | % | EXTERNAL | | | | performed at [facility], [address] | | LAB | | | Neutrophils | [address], | | | | | | [place] [address] | | | | + + + + + + | % | 18.26Comment: Testing | % | EXTERNAL | | | Lymphocytes | performed at [facility], [address] | | LAB | | | | [address], | | | | | | [place] [address] | | | | + + + + + + | % Monocytes | 8.60Comment: Testing | % | EXTERNAL | | | | performed at [facility], [address] | | LAB | | | | [address], | | | | | | [place] [address] | | | | + + + + + + | % | 4.07Comment: Testing | % | EXTERNAL | | | Eosinophils | performed at [facility], [address] | | LAB | | | | [address], | | | | | | [place] [address] | | | | + + + + + + | % Basophils | 0.39Comment: Testing | % | EXTERNAL | | | | performed at [facility], [address] | | LAB | | | | [address], | | | | | | [place] [address] | | | | + + + + + + | Absolute | 7.84 (H)Comment: Testing | 1.90 - 7.40 | EXTERNAL | | | Segmented | performed at [facility], [address] | K/uL | LAB | | | Neutrophils | [address], | | | | | | [place] [address] | | | | + + + + + + | Absolute | 2.08Comment: Testing | 1.00 - 3.90 | EXTERNAL | | | Lymphocytes | performed at [facility], [address] | K/uL | LAB | | | | [address], | | | | | | [place] [address] | | | | + + + + + + | Absolute | 0.98 (H)Comment: Testing | 0.00 - 0.80 | EXTERNAL | | | Monocytes | performed at [facility], [address] | K/uL | LAB | | | | [address], | | | | | | [place] [address] | | | | + + + + + + | Absolute | 0.47Comment: Testing | 0.00 - 0.50 | EXTERNAL | | | Eosinophils | performed at [facility], [address] | K/uL | LAB | | | | [address], | | | | | | [place] [address] | | | | + + + + + + | Absolute | 0.05Comment: Testing | 0.00 - 0.10 | EXTERNAL | | | Basophils | performed at [facility], [address] | K/uL | LAB | | | | [address], | | | | | | [place] [address] | | | | + + + [...] EXTERNAL | | | | performed at [facility];8 | | LAB | | | | [address];[place], [place] | | | | | | [address] | | | | + + + [...] EXTERNAL | | | | performed at [facility];888 | | LAB | | | | [address];[place], [place] | | | | | | [address] | | | | + + + [...] + + | Hemoglobin | 5.5Comment: [place] | 4.0 - 6.0 % | EXTERNAL [...] | | | | | performed at [facility], [address] | | | | | | [address], | | | | | | [place] [address] | | | | + + + [...] | | | | | performed at [facility], [address] | | | | | | [facility], | | | | | | [place] [address] | | | | + + + [...] EXTERNAL | | | | performed at [facility];888 | mmol/L | LAB | | | | [address];[place] | | | | | | [address] | | | | + + + + + + | K | 3.7Comment: Testing | 3.5 - 4.9 | EXTERNAL | | | | performed at [facility];888 | mmol/L | LAB | | | | [address];[place] | | | | | | [address] | | | | + + + + + + | Cl | 112 (H)Comment: Testing | 99 - 109 mmol/L | EXTERNAL | | | | performed at [facility];[address] | | LAB | | | | [address];[place] | | | | | | [address] | | | | + + + + + + | CO2 | 22 (L)Comment: Testing | 23 - 32 mmol/L | EXTERNAL | | | | performed at [facility];[address] | | LAB | | | | [address];[place] | | | | | | [address] | | | | + + + + + + | Anion Gap | 11Comment: Testing | 5 - 20 mmol/L | EXTERNAL | | | | performed at [facility];[address] | | LAB | | | | [address];[place] | | | | | | [address] | | | | + + + + + + | Glucose, | 92Comment: Testing | 65 - 99 mg/dL | EXTERNAL | | | Fasting | performed at [facility];888 | | LAB | | | | [address];[place] | | | | | | [address] | | | | + + + + + + | BUN | 18Comment: Testing | 8 - 25 mg/dL | EXTERNAL | | | | performed at [facility];888 | | LAB | | | | [address];[place] | | | | | | [address] | | | | + + + + + + | Creatinine | 0.97Comment: Testing | 0.50 - 1.00 | EXTERNAL | | | | performed at [facility];888 | mg/dL | LAB | | | | [address];[place] | | | | | | [address] | | | | + + + + + + | BUN/Creatin | 19Comment: Testing | | EXTERNAL | | | ine Ratio | performed at [facility];888 | | LAB | | | | [address];[place] | | | | | | [address] | | | | + + + + + + | Calcium | 7.7 (L)Comment: Testing | 8.5 - 10.5 | EXTERNAL | | | | performed at [facility];888 | mg/dL | LAB | | | | [address];[place] | | | | | | [address] | | | | + + + + + + | Protein, | 7.2Comment: Testing | 6.3 - 8.2 g/dL | EXTERNAL | | | Total | performed at [facility];[address] | | LAB | | | | [address];[place] | | | | | | [address] | | | | + + + + + + | Albumin | 2.7 (L)Comment: Testing | 3.6 - 5.0 g/dL | EXTERNAL | | | | performed at [facility];[address] | | LAB | | | | [address];[place] | | | | | | [address] | | | | + + + + + + | Globulin | 4.5Comment: Testing | 1.3 - 4.9 g/dL | EXTERNAL | | | | performed at [facility];[address] | | LAB | | | | [address];[place] | | | | | | [address] | | | | + + + + + + | A/G Ratio | 0.6 (L)Comment: Testing | 1.0 - 2.4 | EXTERNAL | | | | performed at [facility];[address] | | LAB | | | | [address];[place] | | | | | | [address] | | | | + + + + + + | Bilirubin | 1.0Comment: Testing | 0.1 - 1.5 mg/dL | EXTERNAL | | | Total | performed at [facility];[address] | | LAB | | | | [address];[place] | | | | | | [address] | | | | + + + + + + | ALP, | 100Comment: Testing | 35 - 115 U/L | EXTERNAL | | | External | performed at [facility];[address] | | LAB | | | | [address];[place] | | | | | | [address] | | | | + + + + + + | AST | 311 (H)Comment: Testing | 10 - 45 U/L | EXTERNAL | | | | performed at [facility];888 | | LAB | | | | [address];[place] | | | | | | [address] | | | | + + + + + + | ALT | 236 (H)Comment: Testing | 10 - 65 U/L | EXTERNAL | | | | performed at [facility];888 | | LAB | | | | [address];[place] | | | | | | [address] | | | | + + + [...] | | | | | | at [facility];[address];[place] [address] | | | | + + + [...] EXTERNAL | | | | performed at [facility];888 | g/dL | LAB | | | | [address];[place] | | | | | | [address] | | | | + + + + + + | Hematocrit, | 32.4 (L)Comment: Testing | 34.0 - 46.0 % | EXTERNAL | | | POC | performed at [facility];888 | | LAB | | | | [address];[place] | | | | | | [address] | | | | + + + [...] | EXTERNAL LAB | | performed at [facility];[address] [place] [address];[place] [address] 027 NAP1 BI | | | 027 NAP1 BI PRESUMPTIVE NEGATIVE | | | Detection of 027 NAP1 BI strains of C. difficile is presumptive and | | | for epidemiological purposes and not intended to guide or monitor | | | treatment for C. difficile infections. Testing performed at [facility];888 | | | [facility];[place] [address] | | + + + + +---------+ [...] EXTERNAL | | | | performed at [facility];888 | g/dL | LAB | | | | [facility];[place], [place] | | | | | | [address] | | | | + + + + + + | Hematocrit, | 34.4Comment: Testing | 34.0 - 46.0 % | EXTERNAL | | | POC | performed at [facility];888 | | LAB | | | | [address];[place], [place] | | | | | | [address] | | | | + + + [...] LAB | | | | performed at [facility], [address] | | | | | | [address], | | | | | | [place] [address] | | | | + + + [...] | | | | | [place] [address] | | | | + + + + + + | Clarity | CLEARComment: Testing | | EXTERNAL | | | | performed at [facility], [address] | | LAB | | | | [address], | | | | | | [place] [address] | | | | + + + + + + | Specific | 1.017Comment: Testing | 1.002 - 1.030 | EXTERNAL | | | [place], | performed at [facility], [address] | | LAB | | | Urine | [address], | | | | | | [place] [address] | | | | + + + + + + | Leukocyte | NEGATIVEComment: Testing | | EXTERNAL | | | Esterase, | performed at [facility], [address] | | LAB | | | Urine | [address], | | | | | | [place] [address] | | | | + + + + + + | Nitrite, | NEGATIVEComment: Testing | | EXTERNAL | | | Urine | performed at [facility], [address] | | LAB | | | | [address], | | | | | | [place] [address] | | | | + + + + + + | Urobilinoge | 0.2Comment: Testing | mg/dL | EXTERNAL | | | n, Urine | performed at [facility], [address] | | LAB | | | | [address], | | | | | | [place] [address] | | | | + + + + + + | Protein, | NEGATIVEComment: Testing | mg/dL | EXTERNAL | | | Urine | performed at [facility], [address] | | LAB | | | | [address], | | | | | | [place] [address] | | | | + + + + + + | pH, Urine | 6.0Comment: Testing | 5.0 - 8.0 | EXTERNAL | | | | performed at [facility], [address] | | LAB | | | | [address], | | | | | | [place] [address] | | | | + + + + + + | Blood, | MODERATE (A)Comment: | | EXTERNAL | | | Urine | Testing performed at | | LAB | | | | [facility], [address] [facility] | | | | | | [place] | | | | | | [address] | | | | + + + + + + | Ketones | NEGATIVEComment: Testing | mg/dL | EXTERNAL | | | | performed at [facility], [address] | | LAB | | | | [address], | | | | | | [place] [address] | | | | + + + + + + | Bilirubin, | MODERATE (A)Comment: | | EXTERNAL | | | Urine | Testing performed at | | LAB | | | | [facility], [address] | | | | | | [place] | | | | | | [address] | | | | + + + + + + | Glucose, | NEGATIVEComment: Testing | mg/dL | EXTERNAL | | | Urine | performed at [facility], [address] | | LAB | | | | [address], | | | | | | [place] [address] | | | | + + + [...] | | | | | [place], [place] [address] | | | | + + + + + + | RBC, UA | 1-5Comment: Testing | 0 - 5 /hpf | EXTERNAL | | | | performed at [facility], [address] | | LAB | | | | [address], | | | | | | [place] [address] | | | | + + + + + + | Epithelial | 16-25Comment: Testing | /lpf | EXTERNAL | | | Cells | performed at [facility], [address] | | LAB | | | | [address], | | | | | | [place] [address] | | | | + + + + + + | Bacteria, | 1+ (A)Comment: Testing | | EXTERNAL | | | UA | performed at [facility], [address] | | LAB | | | | [address], | | | | | | [place] [address] | | | | + + + + + + | HYALINE | 0-2Comment: Testing | | EXTERNAL | | | CASTS UA | performed at [facility], [address] | | LAB | | | | [address], | | | | | | [place] [address] | | | | + + + [...] | | LAB | | | [address]vd;[place] [address] | | | | + + + + + + | Antibody | NEGATIVE | | EXTERNAL | | | Screen | | | LAB | | + + + + + + | Antibody | Testing performed at | | EXTERNAL | | | Screen | [facility];[address] | | LAB | | | [address];[place] [address] | | | | + + + + + + | BB BAND | [id number] | | EXTERNAL | | | | | | LAB | | + + + + + + | BB BAND | Testing performed at | | EXTERNAL | | | | [facility];[address] | | LAB | | | [address];[place] [address] | | | | + + + [...] WORKUP | | | Testing performed at [facility] [address] [facility] | | [place] [address] | | + + + + +---------+ [...] | | | Urine | performed at [facility], [address] | | LAB | | | Random | [address], | | | | | | [place] [address] | | | | + + + [...] EXTERNAL | | | | performed at [facility];[address] | | LAB | | | | [address];[place] | | | | | | [address] | | | | + + + + + + | RBC, UA | 0-2Comment: Testing | 0 - 5 /hpf | EXTERNAL | | | | performed at [facility];[address] | | LAB | | | | [address];[place] | | | | | | [address] | | | | + + + + + + | Epithelial | 50-100Comment: Testing | /lpf | EXTERNAL | | | Cells | performed at [facility];[address] | | LAB | | | | [address];[place] | | | | | | [address] | | | | + + + + + + | Bacteria, | 3+ (A)Comment: Testing | | EXTERNAL | | | UA | performed at [facility];[address] | | LAB | | | | [address];[place] | | | | | | [address] | | | | + + + + + + | CASTS | 16-25Comment: FINE | /lpf | EXTERNAL | | | | GRANULARTesting | | LAB | | | | performed at [facility];[address] | | | | | | [address];[place] | | | | | | [address] | | | | + + + [...] | | | | | performed at [facility] | | | | | | [facility];[place], [place] | | | | | | [address] | | | | + + + [...] K/uL | LAB | | | | [facility];[address];[place] [address] | | | | + + + + + + | Red Blood | 4.21Comment: Testing | 3.70 - 5.10 | EXTERNAL | | | Cells | performed at [facility];[address] | M/uL | LAB | | | Counted | [address];[place] | | | | | | [address] | | | | + + + + + + | Hemoglobin | 12.4Comment: Testing | 11.3 - 15.5 | EXTERNAL | | | | performed at [facility];888 | g/dL | LAB | | | | [address];[place] | | | | | | [address] | | | | + + + + + + | Hematocrit, | 37.6Comment: Testing | 34.0 - 46.0 % | EXTERNAL | | | POC | performed at [facility];[address] | | LAB | | | | [address];[place] | | | | | | [address] | | | | + + + + + + | MCV | 89.4Comment: Testing | 80.0 - 100.0 fl | EXTERNAL | | | | performed at [facility];[address] | | LAB | | | | [address];[place] | | | | | | [address] | | | | + + + + + + | MCH | 29.4Comment: Testing | 27.0 - 34.0 pg | EXTERNAL | | | | performed at [facility];[address] | | LAB | | | | [address];[place] | | | | | | [address] | | | | + + + + + + | MCHC | 32.9Comment: Testing | 32.0 - 35.5 | EXTERNAL | | | | performed at [facility];888 | g/dL | LAB | | | | [address];[place] | | | | | | [address] | | | | + + + + + + | RDW-CV | 46.4Comment: Testing | 37 - 53 fl | EXTERNAL | | | | performed at [facility];[address] | | LAB | | | | [address];[place] | | | | | | [address] | | | | + + + + + + | Platelet | 251Comment: Testing | 150 - 400 K/uL | EXTERNAL | | | Count | performed at [facility];[address] | | LAB | | | Plasma | [address];[place] | | | | | | [address] | | | | + + + + + + | MPV | 8.3Comment: Testing | fl | EXTERNAL | | | | performed at [facility];[address] | | LAB | | | | [address];[place] | | | | | | [address] | | | | + + + + + + | Differentia | AUTOMATEDComment: | | EXTERNAL | | | l Type | Testing performed at | | LAB | | | | [facility];[address];[place] [address] | | | | + + + + + + | % Segmented | 77.07Comment: Testing | % | EXTERNAL | | | | performed at [facility];[address] | | LAB | | | Neutrophils | [address];[place] | | | | | | [address] | | | | + + + + + + | % | 11.95Comment: Testing | % | EXTERNAL | | | Lymphocytes | performed at [facility];[address] | | LAB | | | | [address];[place] | | | | | | [address] | | | | + + + + + + | % Monocytes | 8.49Comment: Testing | % | EXTERNAL | | | | performed at [facility];[address] | | LAB | | | | [address];[place] | | | | | | [address] | | | | + + + + + + | % | 1.48Comment: Testing | % | EXTERNAL | | | Eosinophils | performed at [facility];[address] | | LAB | | | | [address];[place] | | | | | | [address] | | | | + + + + + + | % Basophils | 1.01Comment: Testing | % | EXTERNAL | | | | performed at [facility];[address] | | LAB | | | | [address];[place] | | | | | | [address] | | | | + + + + + + | Absolute | 12.59 (H)Comment: | 1.90 - 7.40 | EXTERNAL | | | Segmented | Testing performed at | K/uL | LAB | | | Neutrophils | [facility];[address];[place] [address] | | | | + + + + + + | Absolute | 1.95Comment: Testing | 1.00 - 3.90 | EXTERNAL | | | Lymphocytes | performed at [facility];[address] | K/uL | LAB | | | | [address];[place] | | | | | | [address] | | | | + + + + + + | Absolute | 1.39 (H)Comment: Testing | 0.00 - 0.80 | EXTERNAL | | | Monocytes | performed at [facility];[address] | K/uL | LAB | | | | [address] | | | | | | [address] | | | | + + + + + + | Absolute | 0.24Comment: Testing | 0.00 - 0.50 | EXTERNAL | | | Eosinophils | performed at [facility];[address] | K/uL | LAB | | | | [address];[place] | | | | | | [address] | | | | + + + + + + | Absolute | 0.17 (H)Comment: Testing | 0.00 - 0.10 | EXTERNAL | | | Basophils | performed at [facility];888 | K/uL | LAB | | | | [address];[place], [place] | | | | | | [address] | | | | + + + [...] EXTERNAL | | | | performed at [facility] | | LAB | | | | [address];[place], [place] | | | | | | [address] | | | | + + + [...] EXTERNAL | | | | performed at [facility];888 | | LAB | | | | [address] [facility];[place], [place] | | | | | | [address] | | | | + + + [...] EXTERNAL | | | | performed at [facility];888 | | LAB | | | | [address];[place], [place] | | | | | | [address] | | | | + + + [...] EXTERNAL | | | | performed at [facility];888 | | LAB | | | | [address];[place], [place] | | | | | | [address] | | | | + + + [...] EXTERNAL | | | | performed at [facility];888 | mmol/L | LAB | | | | [address];[place] | | | | | | [address] | | | | + + + + + + | K | 4.1Comment: Testing | 3.5 - 4.9 | EXTERNAL | | | | performed at [facility];888 | mmol/L | LAB | | | | [address];[place] | | | | | | [address] | | | | + + + + + + | Cl | 109Comment: Testing | 99 - 109 mmol/L | EXTERNAL | | | | performed at [facility];[address] | | LAB | | | | [address];[place] | | | | | | [address] | | | | + + + + + + | CO2 | 19 (L)Comment: Testing | 23 - 32 mmol/L | EXTERNAL | | | | performed at [facility];888 | | LAB | | | | [address];[place] | | | | | | [address] | | | | + + + + + + | Anion Gap | 16Comment: Testing | 5 - 20 mmol/L | EXTERNAL | | | | performed at [facility];888 | | LAB | | | | [address];[place] | | | | | | [address] | | | | + + + + + + | Glucose, | 174 (H)Comment: Testing | 65 - 99 mg/dL | EXTERNAL | | | Fasting | performed at [facility];888 | | LAB | | | | [address];[place] | | | | | | [address] | | | | + + + + + + | BUN | 42 (H)Comment: Testing | 8 - 25 mg/dL | EXTERNAL | | | | performed at [facility];888 | | LAB | | | | [address];[place] | | | | | | [address] | | | | + + + + + + | Creatinine | 2.6 (H)Comment: Testing | 0.50 - 1.00 | EXTERNAL | | | | performed at [facility];888 | mg/dL | LAB | | | | [address];[place] | | | | | | [address] | | | | + + + + + + | BUN/Creatin | 16Comment: Testing | | EXTERNAL | | | ine Ratio | performed at [facility];[address] | | LAB | | | | [address];[place] | | | | | | [address] | | | | + + + + + + | Calcium | 9.0Comment: Testing | 8.5 - 10.5 | EXTERNAL | | | | performed at [facility];888 | mg/dL | LAB | | | | [address];[place] | | | | | | [address] | | | | + + + + + + | Protein, | 8.6 (H)Comment: Testing | 6.3 - 8.2 g/dL | EXTERNAL | | | Total | performed at [facility];888 | | LAB | | | | [address];[place] | | | | | | [address] | | | | + + + + + + | Albumin | 3.4 (L)Comment: Testing | 3.6 - 5.0 g/dL | EXTERNAL | | | | performed at [facility];888 | | LAB | | | | [address];[place] | | | | | | [address] | | | | + + + + + + | Globulin | 5.2 (H)Comment: Testing | 1.3 - 4.9 g/dL | EXTERNAL | | | | performed at [facility];888 | | LAB | | | | [address];[place] | | | | | | [address] | | | | + + + + + + | A/G Ratio | 0.6 (L)Comment: Testing | 1.0 - 2.4 | EXTERNAL | | | | performed at [facility];[address] | | LAB | | | | [address];[place] | | | | | | [address] | | | | + + + + + + | Bilirubin | 0.5Comment: Testing | 0.1 - 1.5 mg/dL | EXTERNAL | | | Total | performed at [facility];888 | | LAB | | | | [address];[place] | | | | | | [address] | | | | + + + + + + | ALP, | 127 (H)Comment: Testing | 35 - 115 U/L | EXTERNAL | | | External | performed at [facility];888 | | LAB | | | | [address];[place] | | | | | | [address] | | | | + + + + + + | AST | 382 (H)Comment: Testing | 10 - 45 U/L | EXTERNAL | | | | performed at [facility];888 | | LAB | | | | [address];[place] | | | | | | [address] | | | | + + + + + + | ALT | 315 (H)Comment: Testing | 10 - 65 U/L | EXTERNAL | | | | performed at [facility];888 | | LAB | | | | [address];[place] | | | | | | [address] | | | | + + + [...] | | | | | | at [facility];[address] | | | | | | [address];[place] [address] | | | | + + + [...]
--- OUTSIDE RECORDS SUMMARY | ~2019-10-27 | XMS | Encounter Summary ---
Demographics + + + | Address | [address] | | | [place] [address] | + + + | Home Phone [...] + + + | Author | [facility] | | | and [place] | + + + | Organization | [facility] | [...] Team Providers + +------+ + | Care Gear Machinist Name | Role | Phone | + [...] | | | | EMERGENCY CENTER | [place], [place] | | | | | [address] | [address] | | | | | [place], [place] | [phone] | | | | | [address] | | | | | | [phone] | | | +--------+ + + + [...] | 2019 | Visit | | [address] | | | | | | [address] | | | | | | [place] [address] | | | | | | [phone] | | | | | | | | +--------+---------+ + + + documented as of this encounter Visit Diagnoses + + | Diagnosis | + + | Backache, unspecified | + + documented in this encounter"
--- OUTSIDE RECORDS SUMMARY | ~2019-10-27 | XMS | Encounter Summary ---
Demographics + + + | Address | [address] | | | [place] [address] | + + + | Home Phone | | + + + | Preferred Language | Unknown | + + + | Marital Status | Single | + + + | Rastafari Affiliation | [id number] | + + + | Race | Unknown | + + + | Ethnic Group | Unknown | + + + Author + + + | Author | and [facility] | | | and [place] | + + + | Organization | and [facility] | | [...] + +------+ + | Care Customer Operations Intern Name | Role | Phone | + +------+ + | Naren Nina PA-C | PCP | | + +------+ + Encounter Details +--------+ + + + + | Date | Type | Department | Care Team | Description | +--------+ + + + + | 03// | Orders Only | [facility] | Mariia Owusu, | | | 2013 | | [facility] | [employer] [employer] [address] | | | | | CARE [address] | [place] [address] | | | | | [place], [place] | [phone] | | | | | [address] | | | | | | [phone] | | | +--------+ + + + [...] Filed: 08/13/131737 Encounter Date: 08/13/2013 Status: Signed Manager Photography: Olesya Martinez Message copied by OLESYA MARTINEZ on SunAug 13, 2013 5:38 PM ------ Message from: SAMREEN SKINNER Created: SunAug 13, 2013 3:55 PM Contact: 4-Ruth- order-STRAND Ruth from [facility] need for blood work BUN and Creatine for upcoming MRI, patient wi ll need to have this done at tomorrow appointment since the MRI is scheduled for 08/18. If you have any questions, Please call patient back at [phone]. Thank you, Samreen Skinner Assistant Professor Of Psychology LANAdoblaine kennedy in this encounter Plan of Treatment +--------+---------+ + + + | Date | Type | Specialty | Care Team | Description | +--------+---------+ + + + | 10/30/ | Office | Neurosurgery | Jose Gonzalez DO | | | 2019 | Visit | | [address] | | | | | | [place] [address] | | | | | | [phone] | | | | | | | [...] EXTERNAL | | | | performed at [facility];[address] | | LAB | | | | [address];[place] [address] | | | | + + + [...] [address];[place] [address] | | | | + + + [...]
--- OUTSIDE RECORDS SUMMARY | ~2019-10-27 | XMS | Encounter Summary ---
Demographics + + + | Address | [address] | | | [place] [address] | + + + | Home Phone [...] + + | Author | [facility] | | | and [place] | + + + | Organization | [facility] | | | and [...] Team Providers + +------+ + | Care Creative Director Name | Role | Phone | + +------+ + | Naren Nina PA-C | PCP | | + +------+ + Encounter Details +--------+ + + + + | Date | Type | Department | Care Team | Description | +--------+ + + + + | 02/23/ | Orders Only | [facility] | HallMaximiliano L, | | | 2013 | | [facility] [address] | DPM [address] | | | | | [address] | [address] [place], | | | | | [place], [place] | [place] [address] | | | | | [address] | [phone] | | | | | [phone] | | | +--------+ + + + [...] | | | | | [place] [address] | | | | | | [phone] | | | | | | | [...]
--- OUTSIDE RECORDS SUMMARY | ~2019-10-27 | XMS | Encounter Summary ---
Demographics + + + | Address | [address] | | | [place] [address] | + + + | Home Phone [...] + + + | Author | [facility] | | | and [place] | + + + | Organization | [facility] | | | and [place] [...] Team Providers + +------+ + | Care Tutor Coordinator Name | Role | Phone | + +------+ + | Hayden Acevedo MD | PCP | | + +------+ + Encounter Details +--------+ + + + + | Date | Type | Department | Care Team | Description | +--------+ + + + + | 01/30/ | Hospital | [facility] | Juan Alberto Worrell MD | Thoracic or | | 2013 | Encounter | [facility] [address] | [address] | lumbosacral neuritis | | | | [address] | [address] | or radiculitis, | | | | [place], [place] | [place] | unspecified; | | | | [address] | [address] | Radiculopathy of | | | | [phone] | [phone] | lumbar region; | | | | [...] Date of Service: 01/30/14 1800 Status: Signed Self Storage Manager: eGovanna Fischer RN (Registered Nurse) Discharge teaching done. [...] Betancourt PA-C Service: Neurosurgery Author Type: Physician Law Clerk - Ce rtified Filed: 01/30/14 1606 Date of Service: 01/30/14 1602 Status: Signed Self Storage Manager: Keesha Betancourt PA-C (Physician Law Clerk - Certified) [facility] Service: Neurosurgery Progress Note Hospital Day: [...] home. Follow up in 2 weeks in [facility] clinic. Discharge instructions given. Rx giv [...] 1540 Date of Service: 01/30/141443 Status: Signed Self Storage Manager: Demi Paige PT (Physical Therapist) 01/30/14 1444 PT Last Visit PT Received On 01/30/14 Reason for Treatment Spinal surgery Requires PT Follow Up No PT Eval/Reassessment Date 01/30/14 Assistance Required 1 person;Independent Cte Teacher Needed No Requires PT Follow Up [...] Walker front wheeled Prior Function Level of [place] Modified independent with functional mobility;Modified independent wi [...] Eval/Reassessment Date 01/30/14 Assistance Required 1 person;Independent Cte Teacher Needed No Precautions Spinal Precautions Lumbar [...] 01/30/141121 Date of Service: 01/30/141121 Status: Signed Self Storage Manager: Marnie Dewitt RPH (Pharmacist) Renal Dosing Monitoring: [...] | | | | | [place] [address] | | | | | | [phone] | | | | | | | [...]
--- OUTSIDE RECORDS SUMMARY | ~2019-10-27 | XMS | Encounter Summary ---
Demographics + + + | Address | [address] | | | [place] [address] | + + + | Home Phone | | + + + | Preferred Language | Unknown | + + + | Marital Status | Single | + + + | Voodoo Affiliation | 1009 | + + + | Race | Unknown | + + + | Ethnic Group | Unknown | + + + Author + + + | Author | [facility] | | | and [place] | + + + | Organization | [facility] | | | and [...] Team Providers + +------+ + | Care Depot Manager Name | Role | Phone | + +------+ + | Hayden Acevedo MD | PCP | | + +------+ + Encounter Details +--------+ + + + + | Date | Type | Department | Care Team | Description | +--------+ + + + + | 09/19/ | Hospital | [facility] | Geovanny Berg MD | Nicotine addiction; | | 2013 - | Encounter | MEDICAL CENTER | [address] | OAB (overactive | | | | CLINICAL DECISION | [place] [address] | bladder); GERD | | 09/21/ | | [address] | [phone] | (gastroesophageal | | 2013 | | [place] | | reflux disease); | | | | [address] | | Vitamin D | | | | [phone] | | deficiency; COPD | | | [...] Summaries by Philip Singh MD at 09/21/13 394 Author: Philip Singh MD Service: (none) Author Type: Physician Filed: 09/22/13 1011 Date of Service: 09/21/131756 Status: Signed Irish Moss Operator: Philip Singh MD (Physician) Related Notes: Original Note by Philip Singh MD (Physician) filed at 09/21/13 1805 [facility] Service: Hospitalist Physician Discharge Summary Patient ID: [...] Hospital Course: The patient was admitted to [facility] on September 19, 2013, with significantly altered [...] be discharged home as noted above. Our [facility] arranged for the patient to receive paid-for taxi transportation to her house hold in the [facility]. The family of the patient was not available for transport at the janette e of discharge from the hospital. Past Medical History: Past Medical History Diagnosis Date Anxiety Hypertension Thyroid disease Depression Past Surgical History Procedure Date Hysterectomy Cholecystectomy Appendectomy Bladder surgery [facility] 07/14/2013 [facility] 08/06/2013 Discharged Condition: Stable for discharge as [...] or Self Care Follow up: ANUR[facility] Winters [address] [place] [id number] Schedule an appointment as soon as [...] needed for muscle spasm and tightness ergocalciferol 96350 UNITS capsule QTY: 12 capsule Refills: 0 For diagnoses: Low Vitamin D Level Commonly known as: DRISDOL Take 1 capsule by mouth once a week. estradiol 0.1 MG/GM vaginal cream QTY: 42.5 g Refills: 12 For diagnoses: Loss Of Bladder Control, Painful Sexual [place], Fallen Bladder, Saggin g Of Female Genital [...] 1150 Date of Service: 09/21/131149 Status: Signed Irish Moss Operator: Marce Garcia RPH (Pharmacist) Clinical Pharmacy Note: [...] Service: Nephrology Author Type: Physician Filed: 09/21/13 4504 Date of Service: 09/21/131111 Status: Signed Irish Moss Operator: Nura Lee MD (Physician) [facility] Service: NEPHROLOGY progress Note Nohemi Espitia 53 y.o. [id number] 315/315-1 female [facility] Day: LOS: 2 days The patient [...] and tightness 75 tablet 0 ergocalciferol (DRISDOL) 35477 UNITS capsule Take 1 capsule by mouth [...] 0502 Date of Service: 09/21/13458 Status: Signed Irish Moss Operator: Aury Belcher RN (Registered Nurse) Patient alert [...] 0926 Date of Service: 09/20/131718 Status: Signed Irish Moss Operator: Philip Singh MD (Physician) Related Notes: Original Note by Philip Singh MD (Physician) filed at 09/20/13 6290 [facility] Service: Hospitalist Progress Note Pt: Nohemi Espitia AGE/SEX: 53 y.o. female : 1960 ROOM: [address] [place] [address] " HISTORY OF PRESENT ILLNESS The patient [...] and confused. Hence, she was referred to [facility] Emergency Department where the patient's blood pressure [...] arrest and intubation at a hospital in [place] as per the patient/niece's report. During my [...] Procedure Date Hysterectomy Cholecystectomy Appendectomy Bladder surgery [facility] 07/14/2013 [facility] 08/06/2013 PROBLEM LIST Active Problems: Altered mental [...] and confused. She was subsequently transferred to [facility] emergency room for evaluation. She was found [...] normal salin e solution. I appreciate Dr. Lee's help and recommendations. Creatinine level has significa [...] Case Management by OG Bailey at 09/20/13 3285 Author: OG Bailey Service: (none) Author Type: Cumulative Effects Analyst Filed: 09/20/13 5073 Date of Service: 09/20/13 1540 Status: Addendum Irish Moss Operator: OG Bailey (Cumulative Effects Analyst) Related Notes: Original Note by OG Bailey (Cumulative Effects Analyst) filed at 09/20/13 3356 09/20/13 1500 Discharge Planning Evaluation Admitting Diagnosis [...] ill return to her Mobile Home in [place], [place]. Pt stated that her relative will [...] return to her prior living situation in [place], [place] Roslyn Springer Nura Thomas - 09/20/2013 1:04 PM PDTFormatting of this note might be different from the or iginal. Progress Notes by Nura Lee MD at 09/20/13 1308 Author: Nura Lee MD Service: Nephrology Author Type: Physician Filed: 09/20/13 7594 Date of Service: 09/20/13 1304 Status: Signed Irish Moss Operator: Nura Lee MD (Physician) [facility] Service: NEPHROLOGY progress Note Nohemi Espitia 53 y.o. [id number] [phone]/[id number] female [facility] Day: LOS: 1 day The patient [...] Procedure Date Hysterectomy Cholecystectomy Appendectomy Bladder surgery [facility] 07/14/2013 [facility] 08/06/2013 Prescriptions prior to admission Medication Sig Dispense Refill albuterol (PROVENTIL) (2.5 MG/3ML) 0.083% nebulizer solution Take 6 mLs by nebulization every 6 (six) hours as needed for Wheezing. 20 vial 1 baclofen (LIORESAL) 10 MG tablet Take 1-2 tabs po q 8hrs as needed for muscle spasm and tightness 75 tablet 0 ergocalciferol (DRISDOL) 75563 UNITS capsule Take 1 capsule by mouth [...] JULIUS GALEANO UNDERSTANDING NURA LEE MD 09/20/2013 [facility] [place] onversion Transactio n, Provider Unknown - 09/19/2013 6:37 PM PDT Progress Notes by Marce Garcia RPH at 09/19/131836 Author: Marce Garcia RPH Service: (none) Author Type: Pharmacist Filed: 09/19/131836 Date of Service: 09/19/131836 Status: Signed Irish Moss Operator: Marce Garcia RPH (Pharmacist) Clinical Pharmacy Note: [...] | | | | | [place] [address] | | | | | | [phone] | | | | | | | [...] | | | | | [place] [address] | | | | + + + + + + | Red Blood | 3.63 (L)Comment: Testing | 3.70 - 5.10 | EXTERNAL | | | Cells | performed at [facility], [address] | M/uL | LAB | | | Counted | [address], | | | | | | [place] [address] | | | | + + + + + + | Hemoglobin | 10.9 (L)Comment: Testing | 11.3 - 15.5 | EXTERNAL | | | | performed at [facility], [address] | g/dL | LAB | | | | [address], | | | | | | [place] [address] | | | | + + + + + + | Hematocrit, | 33.2 (L)Comment: Testing | 34.0 - 46.0 % | EXTERNAL | | | POC | performed at [facility], [address] | | LAB | | | | [address], | | | | | | [place] [address] | | | | + + + + + + | MCV | 91.6Comment: Testing | 80.0 - 100.0 fl | EXTERNAL | | | | performed at [facility], [address] | | LAB | | | | [address], | | | | | | [place] [address] | | | | + + + + + + | MCH | 30.1Comment: Testing | 27.0 - 34.0 pg | EXTERNAL | | | | performed at [facility], [address] | | LAB | | | | [address], | | | | | | [place] [address] | | | | + + + + + + | MCHC | 32.9Comment: Testing | 32.0 - 35.5 | EXTERNAL | | | | performed at [facility], [address] | g/dL | LAB | | | | [address], | | | | | | [place] [address] | | | | + + + + + + | RDW-CV | 45.9Comment: Testing | 37 - 53 fl | EXTERNAL | | | | performed at [facility], [address] | | LAB | | | | [address], | | | | | | [place] [address] | | | | + + + + + + | Platelet | 314Comment: Testing | 150 - 400 K/uL | EXTERNAL | | | Count | performed at [facility], [address] | | LAB | | | Plasma | [address], | | | | | | [place] [address] | | | | + + + + + + | MPV | 7.5Comment: Testing | fl | EXTERNAL | | | | performed at [facility], [address] | | LAB | | | | [address], | | | | | | [place] [address] | | | | + + + + + + | Differentia | AUTOMATEDComment: | | EXTERNAL | | | l Type | Testing performed at | | LAB | | | | [facility], [address] | | | | | | [place] | | | | | | [address] | | | | + + + + + + | % Segmented | 39.7Comment: Testing | % | EXTERNAL | | | | performed at [facility], [address] | | LAB | | | Neutrophils | [address], | | | | | | [place] [address] | | | | + + + + + + | % | 48.1Comment: Testing | % | EXTERNAL | | | Lymphocytes | performed at [facility], [address] | | LAB | | | | [address], | | | | | | [place] [address] | | | | + + + + + + | % Monocytes | 6.6Comment: Testing | % | EXTERNAL | | | | performed at [facility], [address] | | LAB | | | | [address], | | | | | | [place] [address] | | | | + + + + + + | % | 5.3Comment: Testing | % | EXTERNAL | | | Eosinophils | performed at [facility], [address] | | LAB | | | | [address], | | | | | | [place] [address] | | | | + + + + + + | % Basophils | 0.3Comment: Testing | % | EXTERNAL | | | | performed at [facility], [address] | | LAB | | | | [address], | | | | | | [place] [address] | | | | + + + + + + | Absolute | 2.5Comment: Testing | 1.9 - 7.4 K/uL | EXTERNAL | | | Segmented | performed at [facility], [address] | | LAB | | | Neutrophils | [address], | | | | | | [place] [address] | | | | + + + + + + | Absolute | 3.0Comment: Testing | 1.0 - 3.9 K/uL | EXTERNAL | | | Lymphocytes | performed at [facility], [address] | | LAB | | | | [address], | | | | | | [place] [address] | | | | + + + + + + | Absolute | 0.4Comment: Testing | 0 - 0.8 K/uL | EXTERNAL | | | Monocytes | performed at [facility], [address] | | LAB | | | | [address], | | | | | | [place] [address] | | | | + + + + + + | Absolute | 0.3Comment: Testing | 0 - 0.5 K/uL | EXTERNAL | | | Eosinophils | performed at [facility], [address] | | LAB | | | | [address], | | | | | | [place] [address] | | | | + + + + + + | Absolute | 0.0Comment: Testing | 0 - 0.1 K/uL | EXTERNAL | | | Basophils | performed at [facility], [address] | | LAB | | | | [address], | | | | | | [place] [address] | | | | + + + [...] EXTERNAL | | | | performed at [facility], [address] | | LAB | | | | [address], | | | | | | [place] [address] | | | | + + + [...] EXTERNAL | | | | performed at [facility];[address] | | LAB | | | | [address];[place] | | | | | | [address] | | | | + + + [...] | | | | | [place] [address] | | | | + + + + + + | K | 4.2Comment: Testing | 3.5 - 4.9 | EXTERNAL | | | | performed at [facility], [address] | mmol/L | LAB | | | | [address], | | | | | | [place] [address] | | | | + + + + + + | Cl | 114 (H)Comment: Testing | 99 - 109 mmol/L | EXTERNAL | | | | performed at [facility], [address] | | LAB | | | | [address], | | | | | | [place] [address] | | | | + + + + + + | CO2 | 21 (L)Comment: Testing | 23 - 32 mmol/L | EXTERNAL | | | | performed at [facility], [address] | | LAB | | | | [address], | | | | | | [place] [address] | | | | + + + + + + | Anion Gap | 9Comment: Testing | 5 - 20 mmol/L | EXTERNAL | | | | performed at [facility], [address] | | LAB | | | | [address], | | | | | | [place] [address] | | | | + + + + + + | Glucose, | 88Comment: Testing | 65 - 99 mg/dL | EXTERNAL | | | Fasting | performed at [facility], [address] | | LAB | | | | [address], | | | | | | [place] [address] | | | | + + + + + + | BUN | 15Comment: Testing | 8 - 25 mg/dL | EXTERNAL | | | | performed at [facility], [address] | | LAB | | | | [address], | | | | | | [place] [address] | | | | + + + + + + | Creatinine | 0.90Comment: Testing | 0.50 - 1.00 | EXTERNAL | | | | performed at [facility], [address] | mg/dL | LAB | | | | [address], | | | | | | [place] [address] | | | | + + + + + + | Calcium | 8.5Comment: Testing | 8.5 - 10.2 | EXTERNAL | | | | performed at [facility], [address] | mg/dL | LAB | | | | [address], | | | | | | [place] [address] | | | | + + + + + + | Albumin | 2.9 (L)Comment: Testing | 3.6 - 5.0 g/dL | EXTERNAL | | | | performed at [facility], [address] | | LAB | | | | [address], | | | | | | [place] [address] | | | | + + + + + + | PHOSPHORUS | 3.0Comment: Testing | 2.3 - 4.8 mg/dL | EXTERNAL | | | | performed at [facility], [address] | | LAB | | | | [address], | | | | | | [place] [address] | | | | + + + [...] | | | | | | at [facility], [address] | | | | | | [address], | | | | | | [place] [address] | | | | + + + [...] | | LAB | | | | [address], | | | | | | [place] [address] | | | | + + + + + + | Complement | 22.6Comment: Testing | 10 - 40 mg/dL | EXTERNAL | | | Comp 4 | performed at [facility], [address] | | LAB | | | | [address], | | | | | | [place] [address] | | | | + + + [...] | | | | | [place] [address] | | | | + + + + + + | Red Blood | 3.63 (L)Comment: Testing | 3.70 - 5.10 | EXTERNAL | | | Cells | performed at [facility], [address] | M/uL | LAB | | | Counted | [address], | | | | | | [place] [address] | | | | + + + + + + | Hemoglobin | 11.2 (L)Comment: Testing | 11.3 - 15.5 | EXTERNAL | | | | performed at [facility], [address] | g/dL | LAB | | | | [address], | | | | | | [place] [address] | | | | + + + + + + | Hematocrit, | 33.3 (L)Comment: Testing | 34.0 - 46.0 % | EXTERNAL | | | POC | performed at [facility], [address] | | LAB | | | | [address], | | | | | | [place] [address] | | | | + + + + + + | MCV | 91.9Comment: Testing | 80.0 - 100.0 fl | EXTERNAL | | | | performed at [facility], [address] | | LAB | | | | [address], | | | | | | [place] [address] | | | | + + + + + + | MCH | 30.8Comment: Testing | 27.0 - 34.0 pg | EXTERNAL | | | | performed at [facility], [address] | | LAB | | | | [address], | | | | | | [place] [address] | | | | + + + + + + | MCHC | 33.5Comment: Testing | 32.0 - 35.5 | EXTERNAL | | | | performed at [facility], [address] | g/dL | LAB | | | | [address], | | | | | | [place] [address] | | | | + + + + + + | RDW-CV | 45.5Comment: Testing | 37 - 53 fl | EXTERNAL | | | | performed at [facility], [address] | | LAB | | | | [address], | | | | | | [place] [address] | | | | + + + + + + | Platelet | 362Comment: Testing | 150 - 400 K/uL | EXTERNAL | | | Count | performed at [facility], [address] | | LAB | | | Plasma | [address], | | | | | | [place] [address] | | | | + + + + + + | MPV | 7.5Comment: Testing | fl | EXTERNAL | | | | performed at [facility], [address] | | LAB | | | | [address], | | | | | | [place] [address] | | | | + + + + + + | Differentia | AUTOMATEDComment: | | EXTERNAL | | | l Type | Testing performed at | | LAB | | | | [facility], [address] | | | | | | [place] | | | | | | [address] | | | | + + + + + + | % Segmented | 63.7Comment: Testing | % | EXTERNAL | | | | performed at [facility], [address] | | LAB | | | Neutrophils | [address], | | | | | | [place] [address] | | | | + + + + + + | % | 26.8Comment: Testing | % | EXTERNAL | | | Lymphocytes | performed at [facility], [address] | | LAB | | | | [address], | | | | | | [place] [address] | | | | + + + + + + | % Monocytes | 6.0Comment: Testing | % | EXTERNAL | | | | performed at [facility], [address] | | LAB | | | | [address], | | | | | | [place] [address] | | | | + + + + + + | % | 3.0Comment: Testing | % | EXTERNAL | | | Eosinophils | performed at [facility], [address] | | LAB | | | | [address], | | | | | | [place] [address] | | | | + + + + + + | % Basophils | 0.5Comment: Testing | % | EXTERNAL | | | | performed at [facility], [address] | | LAB | | | | [address], | | | | | | [place] [address] | | | | + + + + + + | Absolute | 6.4Comment: Testing | 1.9 - 7.4 K/uL | EXTERNAL | | | Segmented | performed at [facility], [address] | | LAB | | | Neutrophils | [address], | | | | | | [place] [address] | | | | + + + + + + | Absolute | 2.7Comment: Testing | 1.0 - 3.9 K/uL | EXTERNAL | | | Lymphocytes | performed at [facility], [address] | | LAB | | | | [address], | | | | | | [place] [address] | | | | + + + + + + | Absolute | 0.6Comment: Testing | 0 - 0.8 K/uL | EXTERNAL | | | Monocytes | performed at [facility], [address] | | LAB | | | | [address], | | | | | | [place] [address] | | | | + + + + + + | Absolute | 0.3Comment: Testing | 0 - 0.5 K/uL | EXTERNAL | | | Eosinophils | performed at [facility], [address] | | LAB | | | [address], | | | | | | [place] [address] | | | | + + + + + + | Absolute | 0.0Comment: Testing | 0 - 0.1 K/uL | EXTERNAL | | | Basophils | performed at [facility], [address] | | LAB | | | | [address], | | | | | | [place] [address] | | | | + + + [...] EXTERNAL | | | | performed at [facility], [address] | | LAB | | | | [address], | | | | | | [place] [address] | | | | + + + [...] | | | | | [place] [address] | | | | + + + [...] EXTERNAL | | | | performed at [facility];[address] | | LAB | | | | [address];[place] | | | | | | [address] | | | | + + + [...] | | | Total | performed at [facility], [address] | | LAB | | | | [address], | | | | | | [place] [address] | | | | + + + + + + | Albumin | 3.1 (L)Comment: Testing | 3.6 - 5.0 g/dL | EXTERNAL | | | | performed at [facility], [address] | | LAB | | | | [address], | | | | | | [place] [address] | | | | + + + + + + | Bilirubin | 0.3Comment: Testing | 0.1 - 1.5 mg/dL | EXTERNAL | | | Total | performed at [facility], [address] | | LAB | | | | [address], | | | | | | [place] [address] | | | | + + + + + + | Bilirubin | 0.1Comment: Testing | 0.0 - 0.3 mg/dL | EXTERNAL | | | Direct | performed at [facility], [address] | | LAB | | | | [address], | | | | | | [place] [address] | | | | + + + + + + | ALP, | 67Comment: Testing | 35 - 115 U/L | EXTERNAL | | | External | performed at [facility], [address] | | LAB | | | | [address], | | | | | | [place] [address] | | | | + + + + + + | AST | 93 (H)Comment: Testing | 10 - 45 U/L | EXTERNAL | | | | performed at [facility], [address] | | LAB | | | | [address], | | | | | | [place] [address] | | | | + + + + + + | ALT | 50Comment: Testing | 10 - 65 U/L | EXTERNAL | | | | performed at [facility], [address] | | LAB | | | | [address], | | | | | | [place] [address] | | | | + + + [...] | | | | | [place] [address] | | | | + + + + + + | K | 3.9Comment: Testing | 3.5 - 4.9 | EXTERNAL | | | | performed at [facility], [address] | mmol/L | LAB | | | | [address], | | | | | | [place] [address] | | | | + + + + + + | Cl | 114 (H)Comment: Testing | 99 - 109 mmol/L | EXTERNAL | | | | performed at [facility], [address] | | LAB | | | | [address], | | | | | | [place] [address] | | | | + + + + + + | CO2 | 21 (L)Comment: Testing | 23 - 32 mmol/L | EXTERNAL | | | | performed at [facility], [address] | | LAB | | | | [address], | | | | | | [place] [address] | | | | + + + + + + | Anion Gap | 8Comment: Testing | 5 - 20 mmol/L | EXTERNAL | | | | performed at [facility], [address] | | LAB | | | | [address], | | | | | | [place] [address] | | | | + + + + + + | Glucose, | 67Comment: Testing | 65 - 99 mg/dL | EXTERNAL | | | Fasting | performed at [facility], [address] | | LAB | | | | [address], | | | | | | [place] [address] | | | | + + + + + + | BUN | 20Comment: Testing | 8 - 25 mg/dL | EXTERNAL | | | | performed at [facility], [address] | | LAB | | | | [address], | | | | | | [place] [address] | | | | + + + + + + | Creatinine | 1.14 (H)Comment: Testing | 0.50 - 1.00 | EXTERNAL | | | | performed at [facility], [address] | mg/dL | LAB | | | | [address], | | | | | | [place] [address] | | | | + + + + + + | BUN/Creatin | 18Comment: Testing | | EXTERNAL | | | ine Ratio | performed at [facility], [address] | | LAB | | | | [address], | | | | | | [place] [address] | | | | + + + + + + | Calcium | 8.5Comment: Testing | 8.5 - 10.2 | EXTERNAL | | | | performed at [facility], [address] | mg/dL | LAB | | | | [facility], | | | | | | [place] [address] | | | | + + + [...] W | | | | | | [facility], | | | | | | [place] [address] | | | | + + + [...] LAB | | | | performed at [facility], [facility] [address] | | | | | | [address], | | | | | | [place] [address] | | | | + + + [...] | | | Urine | performed at [facility], [address] | | LAB | | | Random | [address], | | | | | | [place] [address] | | | | + + + [...] EXTERNAL | | | | performed at [facility];[address] | | LAB | | | | [address];[place] | | | | | | [address] | | | | + + + + + + | RBC, UA | 0-2Comment: Testing | 0 - 5 /hpf | EXTERNAL | | | | performed at [facility];[address] | | LAB | | | | [address];[place] | | | | | | [address] | | | | + + + + + + | Epithelial | 6-10Comment: Testing | /lpf | EXTERNAL | | | Cells | performed at [facility];[address] | | LAB | | | | [address];[place] | | | | | | [address] | | | | + + + + + + | Bacteria, | TRACE (A)Comment: | | EXTERNAL | | | UA | Testing performed at | | LAB | | | | [facility];[address];[place] [address] | | | | + + + + + + | CASTS | 11-15Comment: | /lpf | EXTERNAL | | | | HYALINETesting performed | | LAB | | | | at [facility];[address];[place] [address] | | | | | | | [...] | | | Screen, | performed at [facility];[address] | | | | | UA, POC | [address];[place] | | | | | | [address] | | | | + + + + + + | Barbiturate | NEGATIVEComment: | | EXTERNAL | | | s Screen, | Positive cutoff for | | LAB | | | Urine | SHAUNA = 200 ng/mLTesting | | | | | | performed at [facility];[address] | | | | | | [address];[place] | | | | | | [address] | | | | + + + + + + | Benzodiazep | NEGATIVEComment: | | EXTERNAL | | | aura | Positive cutoff for | | LAB | | | Screen, | BENZO = 200 ng/mLTesting | | | | | Urine | performed at [facility];[address] | | | | | | [address];[place] | | | | | | [address] | | | | + + + + + + | Cocaine | NEGATIVEComment: | | EXTERNAL | | | | Positive cutoff for | | LAB | | | | MARYAM = 300 ng/mLTesting | | | | | | performed at [facility];[address] | | | | | | [address];[place] | | | | | | [address] | | | | + + + + + + | Methadone | NEGATIVEComment: | | EXTERNAL | | | | Positive cutoff for | | LAB | | | | MTD = 300 ng/mLTesting | | | | | | performed at [facility];[place] | | | | | | [phone] | | | | + + + + + + | Opiates | NEGATIVEComment: | | EXTERNAL | | | | Positive cutoff for | | LAB | | | | OPI = 300 ng/mLTesting | | | | | | performed at [facility];[address];[place] | | | | | | [phone] | | | | + + + + + + | PCP | NEGATIVEComment: | | EXTERNAL | | | | Positive cutoff for PCP | | LAB | | | | = 25 ng/mLTesting | | | | | | performed at [facility];[address];[place] | | | | | | [id number] | | | | + + + [...] | | | | | performed at [facility];[address] | | | | | [address];[place] | | | | | | [phone] | | | | + + + [...] EXTERNAL | | | | performed at [facility] | | LAB | | | | [facility];[place], [place] | | | | | | [phone] | | | | + + + [...] EXTERNAL | | | | performed at [facility];[address] | | [address] | | [address];[place] | | | | | | [address] | | | | + + + + + -+ | Red Blood | 3.96Comment: Testing | 3.70 - 5.10 | EXTERNAL | | | Cells | [facility] [facility] | M/uL | LAB | | | Counted | [address];[place] | | | | | | [address] | | | | + + + + + -+ | Hemoglobin | 11.9Comment: Testing | 11.3 - 15.5 | EXTERNAL | | | | performed at [facility] | g/dL | LAB | | | | [address];[place] | | | | | | [address] | | | | + + + + + -+ | Hematocrit, | 35.3Comment: Testing | 34.0 - 46.0 % | EXTERNAL | | | POC | performed at [facility] | | LAB | | | | [address];[place] | | | | | | [address] | | | | + + + + + -+ | MCV | 89.0Comment: Testing | 80.0 - 100.0 fl | EXTERNAL | | | | performed at [facility] | | LAB | | | | [address];[place] | | | | | | [address] | | | | + + + + + -+ | MCH | 30.1Comment: Testing | 27.0 - 34.0 pg | EXTERNAL | | | | performed at [facility] | | LAB | | | | [address];[place] | | | | | | [address] | | | | + + + + + -+ | MCHC | 33.8Comment: Testing | 32.0 - 35.5 | EXTERNAL | | | | performed at [facility] | g/dL | LAB | | | | [address];[place] | | | | | | [address] | | | | + + + + + -+ | RDW-CV | 45.5Comment: Testing | 37 - 53 fl | EXTERNAL | | | | performed at [facility] | | LAB | | | | [address];[place] | | | | | | [address] | | | | + + + + + -+ | Platelet | 443 (H)Comment: Testing | 150 - 400 K/uL | EXTERNAL | | | Count | performed at [facility] | | LAB | | | Plasma | [address];[place] | | | | | | [address] | | | | + + + + + -+ | MPV | 7.3Comment: Testing | fl | EXTERNAL | | | | performed at [facility] | | LAB | | | | [address];[place] | | | | | | [address] | | | | + + + + + -+ | Differentia | AUTOMATEDComment: | | EXTERNAL | | | l Type | Testing performed at | | LAB | | | | [facility];[place] [address] | | | | + + + + + -+ | % Segmented | 60.4Comment: Testing | % | EXTERNAL | | | | performed at [facility] | | LAB | | | Neutrophils | [address];[place] | | | | | | [address] | | | | + + + + + -+ | % | 26.9Comment: Testing | % | EXTERNAL | | | Lymphocytes | performed at [facility] | | LAB | | | | [address];[place] | | | | | | [address] | | | | + + + + + -+ | % Monocytes | 8.0Comment: Testing | % | EXTERNAL | | | | performed at [facility] | | LAB | | | | [address];[place] | | | | | | [address] | | | | + + + + + -+ | % | 4.0Comment: Testing | % | EXTERNAL | | | Eosinophils | performed at [facility] | | LAB | | | | [address];[place] | | | | | | [address] | | | | + + + + + -+ | % Basophils | 0.7Comment: Testing | % | EXTERNAL | | | | performed at [facility] | | LAB | | | | [address];[place] | | | | | | [address] | | | | + + + + + -+ | Absolute | 5.4Comment: Testing | 1.9 - 7.4 K/uL | EXTERNAL | | | Segmented | performed at [facility] | | LAB | | | Neutrophils | [address];[place] | | | | | | [address] | | | | + + + + + -+ | Absolute | 2.4Comment: Testing | 1.0 - 3.9 K/uL | EXTERNAL | | | Lymphocytes | performed at [facility] | | LAB | | | | [address];[place] | | | | | | [address] | | | | + + + + + -+ | Absolute | 0.7Comment: Testing | 0 - 0.8 K/uL | EXTERNAL | | | Monocytes | performed at [facility] | | LAB | | | | [address];[place] | | | | | | [address] | | | | + + + + + -+ | Absolute | 0.4Comment: Testing | 0 - 0.5 K/uL | EXTERNAL | | | Eosinophils | performed at [facility] | | LAB | | | | [address];[place] | | | | | | [address] | | | | + + + + + -+ | Absolute | 0.1Comment: Testing | 0 - 0.1 K/uL | EXTERNAL | | | Basophils | performed at [facility] | | LAB | | | | [address];[place] | | | | | | [address] | | | | + + + + + -+ | Na | 141Comment: Testing | 135 - 143 | EXTERNAL | | | | performed at [facility] | mmol/L | LAB | | | | [address];[place] | | | | | | [address] | | | | + + + + + -+ | K | 4.5Comment: Testing | 3.5 - 4.9 | EXTERNAL | | | | performed at [facility] | mmol/L | LAB | | | | [address];[place] | | | | | | [address] | | | | + + + + + -+ | Cl | 110 (H)Comment: Testing | 99 - 109 mmol/L | EXTERNAL | | | | performed at [facility] | | LAB | | | | [address];[place] | | | | | | [address] | | | | + + + + + -+ | CO2 | 20 (L)Comment: Testing | 23 - 32 mmol/L | EXTERNAL | | | | performed at [facility] | | LAB | | | | [address];[place] | | | | | | [address] | | | | + + + + + -+ | Anion Gap | 15Comment: Testing | 5 - 20 mmol/L | EXTERNAL | | | | performed at [facility] | | LAB | | | | [address];[place] | | | | | | [address] | | | | + + + + + -+ | Glucose, | 94Comment: Testing | 65 - 99 mg/dL | EXTERNAL | | | Fasting | performed at [facility] | | LAB | | | | [address];[place] | | | | | | [address] | | | | + + + + + -+ | BUN | 30 (H)Comment: Testing | 8 - 25 mg/dL | EXTERNAL | | | | performed at [facility] | | LAB | | | | [address];[place] | | | | | | [address] | | | | + + + + + -+ | Creatinine | 2.26 (H)Comment: Testing | 0.50 - 1.00 | EXTERNAL | | | | performed at [facility] | mg/dL | LAB | | | | [address];[place] | | | | | | [address] | | | | + + + + + -+ | BUN/Creatin | 14Comment: Testing | | EXTERNAL | | | ine Ratio | performed at [facility] | | LAB | | | | [address];[place] | | | | | | [address] | | | | + + + + + -+ | Calcium | 9.5Comment: Testing | 8.5 - 10.2 | EXTERNAL | | | | performed at [facility] | mg/dL | LAB | | | | [address];[place] | | | | | | [address] | | | | + + + + + -+ | Protein, | 8.2Comment: Testing | 6.3 - 8.2 g/dL | EXTERNAL | | | Total | performed at [facility] | | LAB | | | | [address];[place] | | | | | | [address] | | | | + + + + + -+ | Albumin | 3.3 (L)Comment: Testing | 3.6 - 5.0 g/dL | EXTERNAL | | | | performed at [facility] | | LAB | | | | [address];[place] | | | | | | [address] | | | | + + + + + -+ | Globulin | 4.9Comment: Testing | 1.3 - 4.9 g/dL | EXTERNAL | | | | performed at [facility] | | LAB | | | | [address];[place] | | | | | | [address] | | | | + + + + + -+ | A/G Ratio | 0.7 (L)Comment: Testing | 1.0 - 2.4 | EXTERNAL | | | | performed at [facility] | | LAB | | | | [address];[place] | | | | | | [address] | | | | + + + + + -+ | Bilirubin | 0.2Comment: Testing | 0.1 - 1.5 mg/dL | EXTERNAL | | | Total | performed at [facility] | | LAB | | | | [address];[place] | | | | | | [address] | | | | + + + + + -+ | ALP, | 108Comment: Testing | 35 - 115 U/L | EXTERNAL | | | External | performed at [facility] | | LAB | | | | [address];[place] | | | | | | [address] | | | | + + + + + -+ | AST | 153 (H)Comment: Testing | 10 - 45 U/L | EXTERNAL | | | | performed at [facility] | | LAB | | | | [address] | | | | | | [address] | | | | + + + + + -+ | ALT | 74 (H)Comment: Testing | 10 - 65 U/L | EXTERNAL | | | | performed at [facility] | | LAB | | | | [address];[place] | | | | | | [address] | | | | + + + [...] | | | | | | at [facility];[address];[place] [address] | | | | + + + + + -+ | CK, Total | 3032 (H)Comment: Testing | 30 - 240 U/L | EXTERNAL | | | | performed at [facility] | | LAB | | | | [address];[place] | | | | | | [address] | | | | + + + [...] | | | | | performed at [facility] | | | | | | [address];[place] | | | | | | [address] | | | | + + + + + -+ | aPTT, | 23Comment: Testing | 23 - 32 seconds | EXTERNAL | | | Patient | performed at [facility] | | LAB | | | | [address];[place] | | | | | | [address] | | | | + + + + + -+ | CK-MB | 53.7 (H)Comment: Testing | 0.5 - 3.6 ng/mL | EXTERNAL | | | | performed at [facility] | | LAB | | | | [address];[place] | | | | | | [address] | | | | + + + [...] EXTERNAL | | | | performed at [facility] | | LAB | | | | [facility] [facility];[place], [place] | | | | | | [address] | | | | + + + [...] EXTERNAL | | | | performed at [facility] | uIU/mL | LAB | | | | [address];[place], [place] | | | | | | [address] | | | | + + + [...] | | | (REF) | performed at [facility] | | LAB | | | | [address];[place] | | | | | | [address] | | | | + + + [...] EXTERNAL | | | | performed at [facility];[address] | | LAB | | | | [address];[place] | | | | | | [address] | | | | + + + [...] | | | Alcohol | performed at [facility] | | LAB | | | | [address];[place], [place] | | | | | | [address] | | | | + + + [...] | | | | | ONLY, -COMPUTER (256), | | | | | | movie editor JERAMY TRAORE | | | | | | (4) on 09/19/2013 2:21:45 | | | | | | PM | | | | + + + + + + + + | Specimen | + + | | + + + + + | Narrative | Performed At | + + + | Historically converted procedure from [facility] Epic environment | EXTERNAL LAB | + [...]
--- OUTSIDE RECORDS SUMMARY | ~2019-10-27 | XMS | Encounter Summary ---
Demographics + + + | Address | [address] | | | [place] [address] | + + + | Home Phone [...] Author | [facility] | | | and [place]smelana | + + + | Organization | [facility] | [...] Team Providers + +------+ + | Care Exhibit Artist Name | Role | Phone | [...] | | [address] | [address] [place], | (male)(female); | | [birth year]/ | | [place], [place] | [place] [address] | Hypothyroid; HTN | | 2013 | | [id number] | [phone] | (hypertension); | | | | [phone] | | Anxiety; | | | | [...] Misha Todd MD at 12/26/13 1043 Author: Mihsa Todd MD Service: Obstetrics/Gynecology Author Type: Physician Filed: 12/26/13 1054 Date of Service: 12/26/13 1043 Status: Signed Feather Stitcher: Misha Todd MD (Physician) Located Within [facility] Service: Obstetrics & Gynecology Discharge Summary Date [...] REPAIR); Surgeon: Misha Todd MD; Locatio n: [facility]; Service: CAPTAIN/AIRLINE PILOT; Laterality: N/A; Anterior portion was not completed Bladder suspension 12/24/2013 Procedure: BLADDER SUSPENSION - TVT; Surgeon: Misha Todd MD; Location: [facility]; Service: CAPTAIN/AIRLINE PILOT; Laterality: N/A; TVT exact Cystoplasty 12/24/2013 Procedure: CYSTOSCOPY - HYDRODISTENTION OF BLADDER; Surgeon: Misha Todd MD; Locati on: [facility]; Service: CAPTAIN/AIRLINE PILOT; Laterality: N/A; 70 degree scope. Indigo Emilia dye a vailable to Anesthesiologist Enterocele repair 12/24/2013 Procedure: ENTEROCELE RPR; Surgeon: Misha Todd MD; Location: [facility]; Servic e: CAPTAIN/AIRLINE PILOT; Laterality: N/A; No Known Allergies Prescriptions prior [...] pr ocedure. 2 enema 0 ergocalciferol (DRISDOL) 66500 UNITS capsule Take 1 capsule by mouth [...] file. Follow up: Misha Todd MD [address] [facility] [address] [facility] [address] In 1 month Medication List As of [...] diagnoses: Loss Of Bladder Control, Painful Sexual [place], Fallen Bladder, Saggin g Of Female Genital [...] are the prescriptions that you need to mushroom picker. You may get these medications from [...] 12/26/131124 Date of Service: 12/26/131124 Status: Signed Feather Stitcher: Sarah Birch RN (Registered Nurse) Discharge instructions given and explained to patient. Medications discussed with no questi ons. Instructed to contact MD for any signs or symptoms of infection or any problems associa kayy with hospitalization. SARAH BIRCH RN 12/26/2013 11:25 AM onver david Transaction, Provider Unknown - 12/25/2013 11:10 AM PDT Therapy Progress Note by JULIO Ocampo at 12/25/13 1110 Author: JULOI Ocampo Service: (none) Author Type: Massage Therapist Filed: 12/25/13 111 Date of Service: 12/25/131109 Status: Signed Feather Stitcher: JULIO Ocampo (Massage Therapist) 12/25/13 1100 MT Last Visit MT Received On 12/25/13 MT Therapy Visit Refused onver david Rodríguez, Provider Unknown - 12/25/2013 8:09 AM PDT Case Management by OG Mae at 12/25/13 0809 Author: OG Mae Service: (none) Author Type: Fish Bait Processing Supervisor Filed: 12/25/13 0810 Date of Service: 12/25/13 0809 Status: Signed Feather Stitcher: OG Mae (Fish Bait Processing Supervisor) CM met with pt for discharge planning. [...] follow as needed. Discharge Plan: Home. [place] GRAVESSW 12/25/13 0808 Discharge Planning Evaluation Admitting Diagnosis [...] Alternative housing needed: None Anticipated DCP: Home Anushka kennedy in this encounter Plan of Treatment +--------+---------+ + + + | Date | Type | Specialty | Care Team | Description | +--------+---------+ + + + | 10/30/ | Office | Neurosurgery | Jose Gonzalez DO | | | 2019 | Visit | | [address] | | | | | | [place] [address] | | | | | | [phone] | | | | | | | | +--------+---------+ + + + documented as of this encounter Procedures + +--------+ + + + | Procedure Name | Priori | Date/Time | Associated Diagnosis | Comments | | | ty | | | | + +--------+ + + + | EXTERNAL LAB: FYLNN | Routin | 12/25/2013 | | Results [...] | | | | | [place] [address] | | | | + + + + + + | Red Blood | 3.87Comment: Testing | 3.70 - 5.10 | EXTERNAL | | | Cells | performed at [facility], [address] | M/uL | LAB | | | Counted | [address], | | | | | | [place] [address] | | | | + + + + + + | Hemoglobin | 11.8Comment: Testing | 11.3 - 15.5 | EXTERNAL | | | | performed at [facility], [address] | g/dL | LAB | | | | [address], | | | | | | [place], [place] [address] | | | | + + + + + + | Hematocrit, | 35.8Comment: Testing | 34.0 - 46.0 % | EXTERNAL | | | POC | performed at [facility], [address] | | LAB | | | | [address], | | | | | | [place] [address] | | | | + + + + + + | MCV | 92.5Comment: Testing | 80.0 - 100.0 fl | EXTERNAL | | | | performed at [facility], [address] | | LAB | | | | [address], | | | | | | [place] [address] | | | | + + + + + + | MCH | 30.5Comment: Testing | 27.0 - 34.0 pg | EXTERNAL | | | | performed at [facility], [address] | | LAB | | | | [address], | | | | | | [place] [address] | | | | + + + + + + | MCHC | 32.9Comment: Testing | 32.0 - 35.5 | EXTERNAL | | | | performed at [facility], [address] | g/dL | LAB | | | | [address], | | | | | | [place] [address] | | | | + + + + + + | RDW-CV | 49.9Comment: Testing | 37 - 53 fl | EXTERNAL | | | | performed at [facility], [address] | | LAB | | | | [address], | | | | | | [place] [address] | | | | + + + + + + | Platelet | 208Comment: Testing | 150 - 400 K/uL | EXTERNAL | | | Count | performed at [facility], [address] | | LAB | | | Plasma | [address], | | | | | | [place] [address] | | | | + + + + + + | MPV | 8.4Comment: Testing | fl | EXTERNAL | | | | performed at [facility], [address] | | LAB | | | | [address], | | | | | | [place] [address] | | | | + + + [...] | | | | | [place] [address] | | | | + + + + + + | % Segmented | 86.6Comment: Testing | % | EXTERNAL | | | | performed at [facility], [address] | | LAB | | | Neutrophils | [address], | | | | | | [place] [address] | | | | + + + + + + | % | 9.0Comment: Testing | % | EXTERNAL | | | Lymphocytes | performed at [facility], [address] | | LAB | | | | [address], | | | | | | [place] [address] | | | | + + + + + + | % Monocytes | 4.3Comment: Testing | % | EXTERNAL | | | | performed at [facility], [address] | | LAB | | | | [address], | | | | | | [place] [address] | | | | + + + + + + | % | 0.0Comment: Testing | % | EXTERNAL | | | Eosinophils | performed at [facility], [address] | | LAB | | | | [address], | | | | | | [place] [address] | | | | + + + + + + | % Basophils | 0.1Comment: Testing | % | EXTERNAL | | | | performed at [facility], [address] | | LAB | | | | [address], | | | | | | [place] [address] | | | | + + + + + + | Absolute | 9.0 (H)Comment: Testing | 1.9 - 7.4 K/uL | EXTERNAL | | | Segmented | performed at [facility], [address] | | LAB | | | Neutrophils | [address], | | | | | | [place] [address] | | | | + + + + + + | Absolute | 0.9 (L)Comment: Testing | 1.0 - 3.9 K/uL | EXTERNAL | | | Lymphocytes | performed at [facility], [address] | | LAB | | | | [address], | | | | | | [place] [address] | | | | + + + + + + | Absolute | 0.4Comment: Testing | 0 - 0.8 K/uL | EXTERNAL | | | Monocytes | performed at [facility], [address] | | LAB | | | | [address], | | | | | | [place] [address] | | | | + + + + + + | Absolute | 0.0Comment: Testing | 0 - 0.5 K/uL | EXTERNAL | | | Eosinophils | performed at [facility], [address] | | LAB | | | | [address], | | | | | | [place] [address] | | | | + + + + + + | Absolute | 0.0Comment: Testing | 0 - 0.1 K/uL | EXTERNAL | | | Basophils | performed at [facility], [address] | | LAB | | | | [address], | | | | | | [place] [address] | | | | + + + [...] | | | | | [place] [address] | | | | + + + + + + | K | 4.5Comment: Testing | 3.5 - 4.9 | EXTERNAL | | | | performed at [facility], [address] | mmol/L | LAB | | | | [address], | | | | | | [place] [address] | | | | + + + + + + | Cl | 107Comment: Testing | 99 - 109 mmol/L | EXTERNAL | | | | performed at [facility], [address] | | LAB | | | | [address], | | | | | | [place] [address] | | | | + + + + + + | CO2 | 26Comment: Testing | 23 - 32 mmol/L | EXTERNAL | | | | performed at [facility], [address] | | LAB | | | | [address], | | | | | | [place] [address] | | | | + + + + + + | Anion Gap | 8Comment: Testing | 5 - 20 mmol/L | EXTERNAL | | | | performed at [facility], [address] | | LAB | | | | [address], | | | | | | [place] [address] | | | | + + + + + + | Glucose, | 137 (H)Comment: Testing | 65 - 99 mg/dL | EXTERNAL | | | Fasting | performed at [facility], [address] | | LAB | | | | [address], | | | | | | [place] [address] | | | | + + + + + + | BUN | 16Comment: Testing | 8 - 25 mg/dL | EXTERNAL | | | | performed at [facility], [address] | | LAB | | | | [address], | | | | | | [place] [address] | | | | + + + + + + | Creatinine | 0.75Comment: Testing | 0.50 - 1.00 | EXTERNAL | | | | performed at [facility], [address] | mg/dL | LAB | | | | [address], | | | | | | [place] [address] | | | | + + + + + + | BUN/Creatin | 21Comment: Testing | | EXTERNAL | | | ine Ratio | performed at [facility], [address] | | LAB | | | | [address], | | | | | | [place] [address] | | | | + + + + + + | Calcium | 9.1Comment: Testing | 8.5 - 10.2 | EXTERNAL | | | | performed at [facility], [address] | mg/dL | LAB | | | | [address], | | | | | | [place] [address] | | | | + + + [...] | | | | | | at [facility], [address] | | | | | | [address], | | | | | | [place] [address] | | | | + + + [...] LAB | | | | Blvd;[place] [address] | | | | + + + + + + | Antibody | NEGATIVE | | EXTERNAL | | | Screen | | | LAB | | + + + + + + | Antibody | Testing performed at | | EXTERNAL | | | Screen | [facility] | | LAB | | | | [address];[place] [address] | | | | + + + + + + | BB BAND | [id number] | | EXTERNAL | | | | | | LAB | | + + + + + + | BB BAND | Testing performed at | | EXTERNAL | | | | [facility] [place] [place];[address] [place] [address] | | LAB | | | | [address];[place] [address] | | | | + + + [...]
--- OUTSIDE RECORDS SUMMARY | ~2019-10-27 | XMS | Encounter Summary ---
Demographics + + + | Address | [address] | | | [place] [address] | + + + | Home Phone | | + + + | Preferred Language | Unknown | + + + | Marital Status | Single | + + + | Sabianist Affiliation | 1009 | + + + | Race | Unknown | + + + | Ethnic Group | Unknown | + + + Author + + + | Author | [facility] | | | and [place] | + + + | Organization | [facility] | | | and [place] [...] Team Providers + +------+ + | Care Resource Efficiency Manager Name | Role | Phone | + +------+ + | Hayden Acevedo MD | PCP | | + +------+ + Encounter Details +--------+ + + + + | Date | Type | Department | Care Team | Description | +--------+ + + + + | 01/22/ | Hospital | [facility] | Conversion | Thoracic or | | 2013 | Encounter | [facility] | Transaction, | lumbosacral neuritis | | | | CLINIC [address] | Provider Unknown | or radiculitis, | | | | [address] [place], [place] | | unspecified | | | | [address] | (Fax) | | | | | [phone] | | | +--------+ + + + [...] [facility] | | | | | | [address] | | | | | | [place] [address] | | | | | | [phone] | | | | | | | [...] | | | Patient | performed at [facility];[address] | | LAB | | | | [address];[place], [place] | | | | | | [address] | | | | + + + [...] | | | | | performed at [facility] | | | | | | [facility];[place], [place] | | | | | | [address] | | | | + + + [...] EXTERNAL | | | | performed at [facility], [address] | | LAB | | | | [address], | | | | | | [place] [address] | | | | + + + + + + | Red Blood | 3.99Comment: Testing | 3.70 - 5.10 | EXTERNAL | | | Cells | performed at [facility], [address] | M/uL | LAB | | | Counted | [address], | | | | | | [place] [address] | | | | + + + + + + | Hemoglobin | 12.0Comment: Testing | 11.3 - 15.5 | EXTERNAL | | | | performed at [facility], [address] | g/dL | LAB | | | | [address], | | | | | | [place] [address] | | | | + + + + + + | Hematocrit, | 36.2Comment: Testing | 34.0 - 46.0 % | EXTERNAL | | | POC | performed at [facility], [address] | | LAB | | | | [address], | | | | | | [place] [address] | | | | + + + + + + | MCV | 90.9Comment: Testing | 80.0 - 100.0 fl | EXTERNAL | | | | performed at [facility], [address] | | LAB | | | | [address], | | | | | | [place] [address] | | | | + + + + + + | MCH | 30.1Comment: Testing | 27.0 - 34.0 pg | EXTERNAL | | | | performed at [facility], [address] | | LAB | | | | [address], | | | | | | [place] [address] | | | | + + + + + + | MCHC | 33.1Comment: Testing | 32.0 - 35.5 | EXTERNAL | | | | performed at [facility], [address] | g/dL | LAB | | | | [address], | | | | | | [place] [address] | | | | + + + + + + | RDW-CV | 48.6Comment: Testing | 37 - 53 fl | EXTERNAL | | | | performed at [facility], [address] | | LAB | | | | [address], | | | | | | [place] [address] | | | | + + + + + + | Platelet | 210Comment: Testing | 150 - 400 K/uL | EXTERNAL | | | Count | performed at [facility], [address] | | LAB | | | Plasma | [address], | | | | | | [place] [address] | | | | + + + + + + | MPV | 8.0Comment: Testing | fl | EXTERNAL | | | | performed at [facility], [address] | | LAB | | | | [address], | | | | | | [place] [address] | | | | + + + + + + | Differentia | AUTOMATEDComment: | | EXTERNAL | | | l Type | Testing performed at | | LAB | | | | [facility], [address] | | | | | | [place] | | | | | | [address] | | | | + + + + + + | % Segmented | 35.5Comment: Testing | % | EXTERNAL | | | | performed at [facility], [address] | | LAB | | | Neutrophils | [address], | | | | | | [place] [address] | | | | + + + + + + | % | 47.9Comment: Testing | % | EXTERNAL | | | Lymphocytes | performed at [facility], [address] | | LAB | | | | [address], | | | | | | [place] [address] | | | | + + + + + + | % Monocytes | 8.8Comment: Testing | % | EXTERNAL | | | | performed at [facility], [address] | | LAB | | | | [address], | | | | | | [place] [address] | | | | + + + + + + | % | 7.0Comment: Testing | % | EXTERNAL | | | Eosinophils | performed at [facility], [address] | | LAB | | | | [address], | | | | | | [place] [address] | | | | + + + + + + | % Basophils | 0.8Comment: Testing | % | EXTERNAL | | | | performed at [facility], [address] | | LAB | | | | [address], | | | | | | [place] [address] | | | | + + + + + + | Absolute | 2.0Comment: Testing | 1.9 - 7.4 K/uL | EXTERNAL | | | Segmented | performed at [facility], [address] | | LAB | | | Neutrophils | [address], | | | | | | [place] [address] | | | | + + + + + + | Absolute | 2.7Comment: Testing | 1.0 - 3.9 K/uL | EXTERNAL | | | Lymphocytes | performed at [facility], [address] | | LAB | | | | [address], | | | | | | [place] [address] | | | | + + + + + + | Absolute | 0.5Comment: Testing | 0 - 0.8 K/uL | EXTERNAL | | | Monocytes | performed at [facility], [address] | | LAB | | | | [address], | | | | | | [place] [address] | | | | + + + + + + | Absolute | 0.4Comment: Testing | 0 - 0.5 K/uL | EXTERNAL | | | Eosinophils | performed at [facility], [address] | | LAB | | | | [address], | | | | | | [place] [address] | | | | + + + + + + | Absolute | 0.0Comment: Testing | 0 - 0.1 K/uL | EXTERNAL | | | Basophils | performed at [facility], [address] | | LAB | | | | [address], | | | | | | [place] [address] | | | | + + + [...] | | | | | [place] [address] | | | | + + + + + + | K | 4.2Comment: Testing | 3.5 - 4.9 | EXTERNAL | | | | performed at [facility], [address] | mmol/L | LAB | | | | [address], | | | | | | [place] [address] | | | | + + + + + + | Cl | 108Comment: Testing | 99 - 109 mmol/L | EXTERNAL | | | | performed at [facility], [address] | | LAB | | | | [address], | | | | | | [place] [address] | | | | + + + + + + | CO2 | 25Comment: Testing | 23 - 32 mmol/L | EXTERNAL | | | | performed at [facility], [address] | | LAB | | | | [address], | | | | | | [place] [address] | | | | + + + + + + | Anion Gap | 6Comment: Testing | 5 - 20 mmol/L | EXTERNAL | | | | performed at [facility], [address] | | LAB | | | | [address], | | | | | | [place] [address] | | | | + + + + + + | Glucose, | 113 (H)Comment: Testing | 65 - 99 mg/dL | EXTERNAL | | | Fasting | performed at [facility], [address] | | LAB | | | | [address], | | | | | | [place] [address] | | | | + + + + + + | BUN | 16Comment: Testing | 8 - 25 mg/dL | EXTERNAL | | | | performed at [facility], [address] | | LAB | | | | [address], | | | | | | [place] [address] | | | | + + + + + + | Creatinine | 0.76Comment: Testing | 0.50 - 1.00 | EXTERNAL | | | | performed at [facility], [address] | mg/dL | LAB | | | | [address], | | | | | | [place] [address] | | | | + + + + + + | BUN/Creatin | 21Comment: Testing | | EXTERNAL | | | ine Ratio | performed at [facility], [address] | | LAB | | | | [address], | | | | | | [place] [address] | | | | + + + + + + | Calcium | 9.7Comment: Testing | 8.5 - 10.2 | EXTERNAL | | | | performed at [facility], [address] | mg/dL | LAB | | | | [facility], | | | | | | [place] [address] | | | | + + + [...] | | | | | | [facility], | | | | | | [place] [address] | | | | + + + [...] EXTERNAL LAB | | Testing performed at [facility];[address] [place] [address];[place] [address] MRSA PCR | | | NEGATIVE Testing performed at | | | [facility];[address] [place] [address];[place] [address] | | + + + + +---------+ [...] | | | | | | CHRISTOPHER ([id number]) on 01/22/2014 | | | | | | 9:39:17 PM | | | | + + + + + + + + | Specimen | + + | | + + + + + | Narrative | Performed At | + + + | Historically converted procedure from [facility] | EXTERNAL LAB | + + + [...]
--- OUTSIDE RECORDS SUMMARY | ~2019-10-27 | XMS | Encounter Summary ---
Demographics + + + | Address | [address] | | | [place] [address] | + + + | Home Phone [...] | Author | [facility] | | | and [place] | + + + | Organization | [facility] | | | and [place] [...] + +------+ + | Care Director Of Business Operations Name | Role | Phone | + +------+ + | Hayden Acevedo MD | PCP | | + +------+ + Encounter Details +--------+ + + + + | Date | Type | Department | Care Team | Description | +--------+ + + + + | 10/10/ | Emergency | [facility] | Mikayla Stahl, | COPD exacerbation | | 2013 | | MEDICAL CENTER | [facility] [address] | ([facility]); Arthritis; | | | | EMERGENCY CENTER | [place] [address] | Ankle pain, right; | | | | [address] | [phone] | Tobacco abuse | | | | [place], [place] | | | | | | [address] | | | | | | [phone] | | | +--------+ + + + [...] | | | | | [place] [address] | | | | | | [phone] | | | | | | | [...]
--- OUTSIDE RECORDS SUMMARY | ~2019-10-27 | XMS | Encounter Summary ---
Demographics + + + | Address | [address] | | | [place] [address] | + + + | Home Phone [...] | Author | [facility] | | | and [place] | + + + | Organization | [facility] | | [...] Team Providers + +------+ + | Care Laborer [place] Name | Role | Phone | + [...] [address] | | | | | [place], [place] | [address] | | | | | [address] | [place] [address] | | | | | [phone] | [phone] | | | | | | | [...] | | | | | [place] [address] | | | | | | [phone] | | | | | | | [...] + + + + | HCV | [id number] (A)Comment: | [iU]/mL | EXTERNAL | | [...]
--- OUTSIDE RECORDS SUMMARY | ~2019-10-27 | XMS | Encounter Summary ---
Demographics + + + | Address | [address] | | | [place] [address] | + + + | Home Phone | | + + + | Preferred Language | Unknown | + + + | Marital Status | Single | + + + | Orthodox Affiliation | 1009 | + + + | Race | Unknown | + + + | Ethnic Group | Unknown | + + + Author + + + | Author | [facility] | | | and [place] | + + + | Organization | [facility] | | | and [...] Team Providers + +------+ + | Care Deputy County Attorney Name | Role | Phone | + +------+ + | Naren Nina PA-C | PCP | | + +------+ + Encounter Details +--------+ + + + + | Date | Type | Department | Care Team | Description | +--------+ + + + + | 02/23/ | Orders Only | [facility] | Hall[facility]imil[facility] L, | | | 2013 | | AND ANKLE XRAY [address] | DPM [address] | | | | | [address] | [address] [place], | | | | | [place], [place] | [place] [address] | | | | | [address] | [phone] | | | | | [phone] | | | +--------+ + + + [...] | | | | | [place] [address] | | | | | | [phone] | | | | | | | [...]
--- OUTSIDE RECORDS SUMMARY | ~2019-10-27 | XMS | Encounter Summary ---
Demographics + + + | Address | [address] | | | [place] [address] | + + + | Home Phone [...] Author | [facility] | | | and [place] | + + + | Organization | [facility] | | | and [...] Providers + +------+ + | Care Hand Cloth Examiner Name | Role | Phone | + +------+ + | Hayden Acevedo MD | PCP | | + +------+ + Encounter Details +--------+ + + + + | Date | Type | Department | Care Team | Description | +--------+ + + + + | 09/19/ | Hospital | [facility] | Geovanny Berg MD | Nicotine addiction; | | 2013 - | Encounter | MEDICAL CENTER | [address] | OAB (overactive | | | | CLINICAL DECISION | [place] [address] | bladder); GERD | | 09/21/ | | [address] | [phone] | (gastroesophageal | | 2013 | | [place] | | reflux disease); | | | | [phone] | | Vitamin D | | | | [phone] | | deficiency; COPD | | | [...] Summaries by Philip Singh MD at 09/21/13 835 Author: Philip Singh MD Service: (none) Author Type: Physician Filed: 09/22/13 1011 Date of Service: 09/21/131756 Status: Signed Engraver Hand Soft Metals: Philip Singh MD (Physician) Related Notes: Original Note by Philip Singh MD (Physician) filed at 09/21/13 1805 [facility] Service: Hospitalist Physician Discharge Summary [...] Hospital Course: The patient was admitted to [facility] on September 19, 2013, with [...] be discharged home as noted above. Our [facility] management arranged for the patient to receive paid-for taxi transportation to her house hold in the [facility]. The family of the patient was not available for transport at the janette e of discharge from the hospital. Past Medical History: Past Medical History Diagnosis Date Anxiety Hypertension Thyroid disease Depression Past Surgical History Procedure Date Hysterectomy Cholecystectomy Appendectomy Bladder [place] [facility] [place] [facility] [place] Discharged Condition: Stable for discharge as [...] or Self Care Follow up: ANURAG Winters [address] [place] [id number] Schedule an appointment as soon as [...] needed for muscle spasm and tightness ergocalciferol 95056 UNITS capsule QTY: 12 capsule Refills: 0 For diagnoses: Low Vitamin D Level Commonly known as: DRISDOL Take 1 capsule by mouth once a week. estradiol 0.1 MG/GM vaginal cream QTY: 42.5 g Refills: 12 For diagnoses: Loss Of Bladder Control, Painful Sexual Jewell, Fallen Bladder, Saggin g Of Female Genital [...] 1150 Date of Service: 09/21/131149 Status: Signed Engraver Hand Soft Metals: Marce Garcia RPH (Pharmacist) Clinical Pharmacy Note: [...] Service: Nephrology Author Type: Physician Filed: 09/21/13 9147 Date of Service: 09/21/131111 Status: Signed Engraver Hand Soft Metals: Nura Lee MD (Physician) [facility] Service: NEPHROLOGY progress Note Nohemi Espitia 53 y.o. [id number] 315/[id number] female [facility] Day: LOS: 2 days The patient is [...] and tightness 75 tablet 0 ergocalciferol (DRISDOL) 41958 UNITS capsule Take 1 capsule by mouth [...] 0502 Date of Service: 09/21/13458 Status: Signed Engraver Hand Soft Metals: Aury Belcher RN (Registered Nurse) Patient alert [...] 0926 Date of Service: 09/20/131718 Status: Signed Engraver Hand Soft Metals: Philip Singh MD (Physician) Related Notes: Original Note by Philip Singh MD (Physician) filed at 09/20/13 4373 [facility] Service: Hospitalist Progress Note Pt: Nohemi Espitia AGE/SEX: 53 y.o. female : 1960 ROOM: [address] [place] [address] " HISTORY OF PRESENT ILLNESS The patient [...] and confused. Hence, she was referred to [facility] Emergency Department where the patient's blood pressure [...] arrest and intubation at a hospital in [place] as per the patient/niece's report. During my [...] Procedure Date Hysterectomy Cholecystectomy Appendectomy Bladder surgery [facility] [place]2013 [facility] [place]/06/[place] PROBLEM LIST Active Problems: Altered mental [...] and confused. She was subsequently transferred to [facility] emergency room for evaluation. She [...] Case Management by OG Bailey at 09/20/13 5325 Author: OG Bailey Service: (none) Author Type: Him Clerk Filed: 09/20/13 2307 Date of Service: 09/20/13 9454 Status: Addendum Engraver Hand Soft Metals: OG Bailey (Him Clerk) Related Notes: Original Note by OG Bailey (Him Clerk) filed at 09/20/13 7957 09/20/13 1500 Discharge Planning Evaluation Admitting Diagnosis [...] ill return to her Mobile Home in [place], [place]. Pt stated that her relative will [...] return to her prior living situation in [place], [place] Roslyn Springer Nura Thomas - 09/20/2013 1:04 PM PDTFormatting of this note might be different from the or iginal. Progress Notes by Nura Lee MD at 09/20/13 1301 Author: Nura Lee MD Service: Nephrology Author Type: Physician Filed: 09/20/13 7121 Date of Service: 09/20/13 1304 Status: Signed Engraver Hand Soft Metals: Nura Lee MD (Physician) [facility] Service: NEPHROLOGY progress Note Nohemi Espitia 53 y.o. [phone]/[id number] female [facility] Day: LOS: 1 day The patient is [...] Procedure Date Hysterectomy Cholecystectomy Appendectomy Bladder surgery [facility] [place]2013 [facility] [place]/06/[place] Prescriptions prior to admission Medication Sig Dispense Refill albuterol (PROVENTIL) (2.5 MG/3ML) 0.083% nebulizer solution Take 6 mLs by nebulization every 6 (six) hours as needed for Wheezing. 20 vial 1 baclofen (LIORESAL) 10 MG tablet Take 1-2 tabs po q 8hrs as needed for muscle spasm and tightness 75 tablet 0 ergocalciferol (DRISDOL) 98054 UNITS capsule Take 1 capsule by mouth [...] 09/19/131836 Date of Service: 09/19/131836 Status: Signed Engraver Hand Soft Metals: Marce Garcia RPH (Pharmacist) Clinical Pharmacy Note: [...] | | | | | [place] [address] | | | | | | [phone] | | | | | | | [...] | | | | | [place] [address] | | | | + + + + + + | Red Blood | 3.63 (L)Comment: Testing | 3.70 - 5.10 | EXTERNAL | | | Cells | performed at [facility], [address] | M/uL | LAB | | | Counted | [address], | | | | | | [place] [address] | | | | + + + + + + | Hemoglobin | 10.9 (L)Comment: Testing | 11.3 - 15.5 | EXTERNAL | | | | performed at [facility], [address] | g/dL | LAB | | | | [address], | | | | | | [place] [address] | | | | + + + + + + | Hematocrit, | 33.2 (L)Comment: Testing | 34.0 - 46.0 % | EXTERNAL | | | POC | performed at [facility], [address] | | LAB | | | | [address], | | | | | | [place] [address] | | | | + + + + + + | MCV | 91.6Comment: Testing | 80.0 - 100.0 fl | EXTERNAL | | | | performed at [facility], [address] | | LAB | | | | [address], | | | | | | [place] [address] | | | | + + + + + + | MCH | 30.1Comment: Testing | 27.0 - 34.0 pg | EXTERNAL | | | | performed at [facility], [address] | | LAB | | | | [address], | | | | | | [place] [address] | | | | + + + + + + | MCHC | 32.9Comment: Testing | 32.0 - 35.5 | EXTERNAL | | | | performed at [facility], [address] | g/dL | LAB | | | | [address], | | | | | | [place] [address] | | | | + + + + + + | RDW-CV | 45.9Comment: Testing | 37 - 53 fl | EXTERNAL | | | | performed at [facility], [address] | | LAB | | | | [address], | | | | | | [place] [address] | | | | + + + + + + | Platelet | 314Comment: Testing | 150 - 400 K/uL | EXTERNAL | | | Count | performed at [facility], [address] | | LAB | | | Plasma | [address], | | | | | | [place] [address] | | | | + + + + + + | MPV | 7.5Comment: Testing | fl | EXTERNAL | | | | performed at [facility], [address] | | LAB | | | | [address], | | | | | | [place] [address] | | | | + + + + + + | Differentia | AUTOMATEDComment: | | EXTERNAL | | | l Type | Testing performed at | | LAB | | | | [facility], [address] | | | | | | [place] | | | | | | [address] | | | | + + + + + + | % Segmented | 39.7Comment: Testing | % | EXTERNAL | | | | performed at [facility], [address] | | LAB | | | Neutrophils | [address], | | | | | | [place] [address] | | | | + + + + + + | % | 48.1Comment: Testing | % | EXTERNAL | | | Lymphocytes | performed at [facility], [address] | | LAB | | | | [address], | | | | | | [place] [address] | | | | + + + + + + | % Monocytes | 6.6Comment: Testing | % | EXTERNAL | | | | performed at [facility], [address] | | LAB | | | | [address], | | | | | | [place] [address] | | | | + + + + + + | % | 5.3Comment: Testing | % | EXTERNAL | | | Eosinophils | performed at [facility], [address] | | LAB | | | | [address], | | | | | | [place] [address] | | | | + + + + + + | % Basophils | 0.3Comment: Testing | % | EXTERNAL | | | | performed at [facility], [address] | | LAB | | | | [address], | | | | | | [place] [address] | | | | + + + + + + | Absolute | 2.5Comment: Testing | 1.9 - 7.4 K/uL | EXTERNAL | | | Segmented | performed at [facility], [address] | | LAB | | | Neutrophils | [address], | | | | | | [place] [address] | | | | + + + + + + | Absolute | 3.0Comment: Testing | 1.0 - 3.9 K/uL | EXTERNAL | | | Lymphocytes | performed at [facility], [address] | | LAB | | | | [address], | | | | | | [place] [address] | | | | + + + + + + | Absolute | 0.4Comment: Testing | 0 - 0.8 K/uL | EXTERNAL | | | Monocytes | performed at [facility], [address] | | LAB | | | | [address], | | | | | | [place] [address] | | | | + + + + + + | Absolute | 0.3Comment: Testing | 0 - 0.5 K/uL | EXTERNAL | | | Eosinophils | performed at [facility], [address] | | LAB | | | | [address], | | | | | | [place] [address] | | | | + + + + + + | Absolute | 0.0Comment: Testing | 0 - 0.1 K/uL | EXTERNAL | | | Basophils | performed at [facility], [address] | | LAB | | | | [address], | | | | | | [place] [address] | | | | + + + [...] EXTERNAL | | | | performed at [facility], [address] | | LAB | | | | [address], | | | | | | [place] [address] | | | | + + + [...] EXTERNAL | | | | performed at [facility];[address] | | LAB | | | | [address];[place] | | | | | | [address] | | | | + + + [...] | | | | | [place] [address] | | | | + + + + + + | K | 4.2Comment: Testing | 3.5 - 4.9 | EXTERNAL | | | | performed at [facility], [address] | mmol/L | LAB | | | | [address], | | | | | | [place] [address] | | | | + + + + + + | Cl | 114 (H)Comment: Testing | 99 - 109 mmol/L | EXTERNAL | | | | performed at [facility], [address] | | LAB | | | | [address], | | | | | | [place] [address] | | | | + + + + + + | CO2 | 21 (L)Comment: Testing | 23 - 32 mmol/L | EXTERNAL | | | | performed at [facility], [address] | | LAB | | | | [address], | | | | | | [place] [address] | | | | + + + + + + | Anion Gap | 9Comment: Testing | 5 - 20 mmol/L | EXTERNAL | | | | performed at [facility], [address] | | LAB | | | | [address], | | | | | | [place] [address] | | | | + + + + + + | Glucose, | 88Comment: Testing | 65 - 99 mg/dL | EXTERNAL | | | Fasting | performed at [facility], [address] | | LAB | | | | [address], | | | | | | [place] [address] | | | | + + + + + + | BUN | 15Comment: Testing | 8 - 25 mg/dL | EXTERNAL | | | | performed at [facility], [address] | | LAB | | | | [address], | | | | | | [place] [address] | | | | + + + + + + | Creatinine | 0.90Comment: Testing | 0.50 - 1.00 | EXTERNAL | | | | performed at [facility], [address] | mg/dL | LAB | | | | [address], | | | | | | [place] [address] | | | | + + + + + + | Calcium | 8.5Comment: Testing | 8.5 - 10.2 | EXTERNAL | | | | performed at [facility], [address] | mg/dL | LAB | | | | [address], | | | | | | [place] [address] | | | | + + + + + + | Albumin | 2.9 (L)Comment: Testing | 3.6 - 5.0 g/dL | EXTERNAL | | | | performed at [facility], [address] | | LAB | | | | [address], | | | | | | [place] [address] | | | | + + + + + + | PHOSPHORUS | 3.0Comment: Testing | 2.3 - 4.8 mg/dL | EXTERNAL | | | | performed at [facility], [address] | | LAB | | | | [address], | | | | | | [place] [address] | | | | + + + [...] | | | | | | at [facility], [address] | | | | | | [address], | | | | | | [place] [address] | | | | + + + [...] | | LAB | | | | [employer], | | | | | | [place] [address] | | | | + + + + + + | Complement | 22.6Comment: Testing | 10 - 40 mg/dL | EXTERNAL | | | Comp 4 | performed at [facility], [address] | | LAB | | | | [address], | | | | | | [place] [address] | | | | + + + [...] | | | | | [place] [address] | | | | + + + + + + | Red Blood | 3.63 (L)Comment: Testing | 3.70 - 5.10 | EXTERNAL | | | Cells | performed at [facility], [address] | M/uL | LAB | | | Counted | [address], | | | | | | [place] [address] | | | | + + + + + + | Hemoglobin | 11.2 (L)Comment: Testing | 11.3 - 15.5 | EXTERNAL | | | | performed at [facility], [address] | g/dL | LAB | | | | [address], | | | | | | [place] [address] | | | | + + + + + + | Hematocrit, | 33.3 (L)Comment: Testing | 34.0 - 46.0 % | EXTERNAL | | | POC | performed at [facility], [address] | | LAB | | | | [address], | | | | | | [place] [address] | | | | + + + + + + | MCV | 91.9Comment: Testing | 80.0 - 100.0 fl | EXTERNAL | | | | performed at [facility], [address] | | LAB | | | | [address], | | | | | | [place] [address] | | | | + + + + + + | MCH | 30.8Comment: Testing | 27.0 - 34.0 pg | EXTERNAL | | | | performed at [facility], [address] | | LAB | | | | [address], | | | | | | [place] [address] | | | | + + + + + + | MCHC | 33.5Comment: Testing | 32.0 - 35.5 | EXTERNAL | | | | performed at [facility], [address] | g/dL | LAB | | | | [address], | | | | | | [place] [address] | | | | + + + + + + | RDW-CV | 45.5Comment: Testing | 37 - 53 fl | EXTERNAL | | | | performed at [facility], [address] | | LAB | | | | [address], | | | | | | [place] [address] | | | | + + + + + + | Platelet | 362Comment: Testing | 150 - 400 K/uL | EXTERNAL | | | Count | performed at [facility], [address] | | LAB | | | Plasma | [address], | | | | | | [place] [address] | | | | + + + + + + | MPV | 7.5Comment: Testing | fl | EXTERNAL | | | | performed at [facility], [address] | | LAB | | | | [address], | | | | | | [place] [address] | | | | + + + + + + | Differentia | AUTOMATEDComment: | | EXTERNAL | | | l Type | Testing performed at | | LAB | | | | [facility], [address] | | | | | | [place] | | | | | | [address] | | | | + + + + + + | % Segmented | 63.7Comment: Testing | % | EXTERNAL | | | | performed at [facility], [address] | | LAB | | | Neutrophils | [address], | | | | | | [place] [address] | | | | + + + + + + | % | 26.8Comment: Testing | % | EXTERNAL | | | Lymphocytes | performed at [facility], [address] | | LAB | | | | [address], | | | | | | [place] [address] | | | | + + + + + + | % Monocytes | 6.0Comment: Testing | % | EXTERNAL | | | | performed at [facility], [address] | | LAB | | | | [address], | | | | | | [place] [address] | | | | + + + + + + | % | 3.0Comment: Testing | % | EXTERNAL | | | Eosinophils | performed at [facility], [address] | | LAB | | | | [address], | | | | | | [place] [address] | | | | + + + + + + | % Basophils | 0.5Comment: Testing | % | EXTERNAL | | | | performed at [facility], [address] | | LAB | | | | [address], | | | | | | [place] [address] | | | | + + + + + + | Absolute | 6.4Comment: Testing | 1.9 - 7.4 K/uL | EXTERNAL | | | Segmented | performed at [facility], [address] | | LAB | | | Neutrophils | [address], | | | | | | [place] [address] | | | | + + + + + + | Absolute | 2.7Comment: Testing | 1.0 - 3.9 K/uL | EXTERNAL | | | Lymphocytes | performed at [facility], [address] | | LAB | | | | [address], | | | | | | [place] [address] | | | | + + + + + + | Absolute | 0.6Comment: Testing | 0 - 0.8 K/uL | EXTERNAL | | | Monocytes | performed at [facility], [address] | | LAB | | | | [address], | | | | | | [place] [address] | | | | + + + + + + | Absolute | 0.3Comment: Testing | 0 - 0.5 K/uL | EXTERNAL | | | Eosinophils | performed at [facility], [address] | | LAB | | | [address], | | | | | | [place] [address] | | | | + + + + + + | Absolute | 0.0Comment: Testing | 0 - 0.1 K/uL | EXTERNAL | | | Basophils | performed at [facility], [address] | | LAB | | | | [address], | | | | | | [place] [address] | | | | + + [...] EXTERNAL | | | | performed at [facility], [address] | | LAB | | | | [address], | | | | | | [place] [address] | | | | + + + [...] | | | | | [place] [address] | | | | + + + [...] EXTERNAL | | | | performed at [facility];[address] | | LAB | | | | [address];[place] | | | | | | [address] | | | | + + + [...] | | | Total | performed at [facility], [address] | | LAB | | | | [address], | | | | | | [place] [address] | | | | + + + + + + | Albumin | 3.1 (L)Comment: Testing | 3.6 - 5.0 g/dL | EXTERNAL | | | | performed at [facility], [address] | | LAB | | | | [address], | | | | | | [place] [address] | | | | + + + + + + | Bilirubin | 0.3Comment: Testing | 0.1 - 1.5 mg/dL | EXTERNAL | | | Total | performed at [facility], [address] | | LAB | | | | [address], | | | | | | [place] [address] | | | | + + + + + + | Bilirubin | 0.1Comment: Testing | 0.0 - 0.3 mg/dL | EXTERNAL | | | Direct | performed at [facility], [address] | | LAB | | | | [address], | | | | | | [place] [address] | | | | + + + + + + | ALP, | 67Comment: Testing | 35 - 115 U/L | EXTERNAL | | | External | performed at [facility], [address] | | LAB | | | | [address], | | | | | | [place] [address] | | | | + + + + + + | AST | 93 (H)Comment: Testing | 10 - 45 U/L | EXTERNAL | | | | performed at [facility], [address] | | LAB | | | | [address], | | | | | | [place] [address] | | | | + + + + + + | ALT | 50Comment: Testing | 10 - 65 U/L | EXTERNAL | | | | performed at [facility], [address] | | LAB | | | | [address], | | | | | | [place] [address] | | | | + + + [...] | | | | | [place] [address] | | | | + + + + + + | K | 3.9Comment: Testing | 3.5 - 4.9 | EXTERNAL | | | | performed at [facility], [address] | mmol/L | LAB | | | | [address], | | | | | | [place] [address] | | | | + + + + + + | Cl | 114 (H)Comment: Testing | 99 - 109 mmol/L | EXTERNAL | | | | performed at [facility], [address] | | LAB | | | | [address], | | | | | | [place] [address] | | | | + + + + + + | CO2 | 21 (L)Comment: Testing | 23 - 32 mmol/L | EXTERNAL | | | | performed at [facility], [address] | | LAB | | | | [address], | | | | | | [place] [address] | | | | + + + + + + | Anion Gap | 8Comment: Testing | 5 - 20 mmol/L | EXTERNAL | | | | performed at [facility], [address] | | LAB | | | | [address], | | | | | | [place] [address] | | | | + + + + + + | Glucose, | 67Comment: Testing | 65 - 99 mg/dL | EXTERNAL | | | Fasting | performed at [facility], [address] | | LAB | | | | [address], | | | | | | [place] [address] | | | | + + + + + + | BUN | 20Comment: Testing | 8 - 25 mg/dL | EXTERNAL | | | | performed at [facility], [address] | | LAB | | | | [address], | | | | | | [place] [address] | | | | + + + + + + | Creatinine | 1.14 (H)Comment: Testing | 0.50 - 1.00 | EXTERNAL | | | | performed at [facility], [address] | mg/dL | LAB | | | | [address], | | | | | | [place] [address] | | | | + + + + + + | BUN/Creatin | 18Comment: Testing | | EXTERNAL | | | ine Ratio | performed at [facility], [address] | | LAB | | | | [address], | | | | | | [place] [address] | | | | + + + + + + | Calcium | 8.5Comment: Testing | 8.5 - 10.2 | EXTERNAL | | | | performed at [facility], [address] | mg/dL | LAB | | | | [facility], | | | | | | [place] [address] | | | | + + + [...] W | | | | | | [facility], | | | | | | [place] [address] | | | | + + + [...] LAB | | | | performed at [facility], [facility] [address] | | | | | | [address], | | | | | | [place] [address] | | | | + + + [...] | | | Urine | performed at [facility], [address] | | LAB | | | Random | [address], | | | | | | [place] [address] | | | | + + + [...] EXTERNAL | | | | performed at [facility];[address] | | LAB | | | | [address];[place] | | | | | | [address] | | | | + + + + + + | RBC, UA | 0-2Comment: Testing | 0 - 5 /hpf | EXTERNAL | | | | performed at [facility];[address] | | LAB | | | | [address];[place] | | | | | | [address] | | | | + + + + + + | Epithelial | 6-10Comment: Testing | /lpf | EXTERNAL | | | Cells | performed at [facility];[address] | | LAB | | | | [address];[place] | | | | | | [address] | | | | + + + + + + | Bacteria, | TRACE (A)Comment: | | EXTERNAL | | | UA | Testing performed at | | LAB | | | | [facility];[address];[place] [address] | | | | + + + + + + | CASTS | 11-15Comment: | /lpf | EXTERNAL | | | | HYALINETesting performed | | LAB | | | | at [facility];[address];[place] [address] | | | | | | | [...] | | | Screen, | performed at [facility];[address] | | | | | UA, POC | [address];[place] | | | | | | [address] | | | | + + + + + + | Barbiturate | NEGATIVEComment: | | EXTERNAL | | | s Screen, | Positive cutoff for | | LAB | | | Urine | SHAUNA = 200 ng/mLTesting | | | | | | performed at [facility];[address] | | | | | | [address];[place] | | | | | | [address] | | | | + + + + + + | Benzodiazep | NEGATIVEComment: | | EXTERNAL | | | aura | Positive cutoff for | | LAB | | | Screen, | BENZO = 200 ng/mLTesting | | | | | Urine | performed at [facility];[address] | | | | | | [address];[place] | | | | | | [address] | | | | + + + + + + | Cocaine | NEGATIVEComment: | | EXTERNAL | | | | Positive cutoff for | | LAB | | | | MARYAM = 300 ng/mLTesting | | | | | | performed at [facility];[address] | | | | | | [address];[place] | | | | | | [address] | | | | + + + + + + | Methadone | NEGATIVEComment: | | EXTERNAL | | | | Positive cutoff for | | LAB | | | | MTD = 300 ng/mLTesting | | | | | | performed at [facility];[address] | | | | | | [address];[place] | | | | | | [address] | | | | + + + + + + | Opiates | NEGATIVEComment: | | EXTERNAL | | | | Positive cutoff for | | LAB | | | | OPI = 300 ng/mLTesting | | | | | | performed at [facility];[address] | | | | | | [address];[place] | | | | | | [id number] | | | | + + + + + + | PCP | NEGATIVEComment: | | EXTERNAL | | | | Positive cutoff for PCP | | LAB | | | | = 25 ng/mLTesting | | | | | | performed at [facility];[address];[place] | | | | | | [address] | | | | + + + [...] | | | | | performed at [facility];[address] | | | | | | [address];[place] | | | | | | [address] | | | | + + + [...] EXTERNAL | | | | performed at [facility] | | LAB | | | | [address] [facility];[place], [place] | | | | | | [address] | | | | + + + [...] EXTERNAL | | | | performed at [facility];[address] | | LAB | | | [address];[place] | | | | | | [address] | | | | + + + + + -+ | Red Blood | 3.96Comment: Testing | 3.70 - 5.10 | EXTERNAL | | | Cells | performed at [facility];[address] | M/uL | LAB | | | Counted | [address];[place] | | | | | | [address] | | | | + + + + + -+ | Hemoglobin | 11.9Comment: Testing | 11.3 - 15.5 | EXTERNAL | | | | performed at [facility];[address] | g/dL | LAB | | | | [address];[place] | | | | | | [id number] | | | | + + + + + -+ | Hematocrit, | 35.3Comment: Testing | 34.0 - 46.0 % | EXTERNAL | | | POC | performed at [facility] [facility];[address] | | LAB | | | | [address];[place] | | | | | | [address] | | | | + + + + + -+ | MCV | 89.0Comment: Testing | 80.0 - 100.0 fl | EXTERNAL | | | | performed at [facility];[address] | | LAB | | | | [address];[place] | | | | | | [address] | | | | + + + + + -+ | MCH | 30.1Comment: Testing | 27.0 - 34.0 pg | EXTERNAL | | | | performed at [facility];[address] | | LAB | | | | [address];[place] | | | | | | [address] | | | | + + + + + -+ | MCHC | 33.8Comment: Testing | 32.0 - 35.5 | EXTERNAL | | | | performed at [facility];888 | g/dL | LAB | | | | [address];[place] | | | | | | [address] | | | | + + + + + -+ | RDW-CV | 45.5Comment: Testing | 37 - 53 fl | EXTERNAL | | | | performed at [facility];[address] | | LAB | | | | [address];[place] | | | | | | [address] | | | | + + + + + -+ | Platelet | 443 (H)Comment: Testing | 150 - 400 K/uL | EXTERNAL | | | Count | performed at [facility];[address] | | LAB | | | Plasma | [address];[place] | | | | | | [address] | | | | + + + + + -+ | MPV | 7.3Comment: Testing | fl | EXTERNAL | | | | performed at [facility];[address] | | LAB | | | | [address];[place] | | | | | | [address] | | | | + + + + + -+ | Differentia | AUTOMATEDComment: | | EXTERNAL | | | l Type | Testing performed at | | LAB | | | | [facility];[address];[place] [address] | | | | + + + + + -+ | % Segmented | 60.4Comment: Testing | % | EXTERNAL | | | | performed at [facility];[address] | | LAB | | | Neutrophils | [address];[place] | | | | | | [address] | | | | + + + + + -+ | % | 26.9Comment: Testing | % | EXTERNAL | | | Lymphocytes | performed at [facility];[address] | | LAB | | | | [address];[place] | | | | | | [address] | | | | + + + + + -+ | % Monocytes | 8.0Comment: Testing | % | EXTERNAL | | | | performed at [facility];[address] | | LAB | | | | [address];[place] | | | | | | [address] | | | | + + + + + -+ | % | 4.0Comment: Testing | % | EXTERNAL | | | Eosinophils | performed at [facility];[address] | | LAB | | | | [address];[place] | | | | | | [address] | | | | + + + + + -+ | % Basophils | 0.7Comment: Testing | % | EXTERNAL | | | | performed at [facility];[address] | | LAB | | | | [address];[place] | | | | | | [address] | | | | + + + + + -+ | Absolute | 5.4Comment: Testing | 1.9 - 7.4 K/uL | EXTERNAL | | | Segmented | performed at [facility];[address] | | LAB | | | Neutrophils | [address];[place] | | | | | | [address] | | | | + + + + + -+ | Absolute | 2.4Comment: Testing | 1.0 - 3.9 K/uL | EXTERNAL | | | Lymphocytes | performed at [facility];[address] | | LAB | | | | [address];[place] | | | | | | [address] | | | | + + + + + -+ | Absolute | 0.7Comment: Testing | 0 - 0.8 K/uL | EXTERNAL | | | Monocytes | performed at [facility];[address] | | LAB | | | | [address];[place] | | | | | | [address] | | | | + + + + + -+ | Absolute | 0.4Comment: Testing | 0 - 0.5 K/uL | EXTERNAL | | | Eosinophils | performed at [facility];[address] | | LAB | | | | [address];[place] | | | | | | [address] | | | | + + + + + -+ | Absolute | 0.1Comment: Testing | 0 - 0.1 K/uL | EXTERNAL | | | Basophils | performed at [facility];[address] | | LAB | | | | [address];[place] | | | | | | [address] | | | | + + + + + -+ | Na | 141Comment: Testing | 135 - 143 | EXTERNAL | | | | performed at [facility];888 | mmol/L | LAB | | | | [address];[place] | | | | | | [address] | | | | + + + + + -+ | K | 4.5Comment: Testing | 3.5 - 4.9 | EXTERNAL | | | | performed at [facility];888 | mmol/L | LAB | | | | [address];[place] | | | | | | [address] | | | | + + + + + -+ | Cl | 110 (H)Comment: Testing | 99 - 109 mmol/L | EXTERNAL | | | | performed at [facility];[address] | | LAB | | | | [address];[place] | | | | | | [address] | | | | + + + + + -+ | CO2 | 20 (L)Comment: Testing | 23 - 32 mmol/L | EXTERNAL | | | | performed at [facility];[address] | | LAB | | | | [address];[place] | | | | | | [address] | | | | + + + + + -+ | Anion Gap | 15Comment: Testing | 5 - 20 mmol/L | EXTERNAL | | | | performed at [facility];[address] | | LAB | | | | [address];[place] | | | | | | [address] | | | | + + + + + -+ | Glucose, | 94Comment: Testing | 65 - 99 mg/dL | EXTERNAL | | | Fasting | performed at [facility];[address] | | LAB | | | | [address];[place] | | | | | | [address] | | | | + + + + + -+ | BUN | 30 (H)Comment: Testing | 8 - 25 mg/dL | EXTERNAL | | | | performed at [facility];[address] | | LAB | | | | [address];[place] | | | | | | [address] | | | | + + + + + -+ | Creatinine | 2.26 (H)Comment: Testing | 0.50 - 1.00 | EXTERNAL | | | | performed at [facility];888 | mg/dL | LAB | | | | [address];[place] | | | | | | [address] | | | | + + + + + -+ | BUN/Creatin | 14Comment: Testing | | EXTERNAL | | | ine Ratio | performed at [facility];[address] | | LAB | | | | [address];[place] | | | | | | [address] | | | | + + + + + -+ | Calcium | 9.5Comment: Testing | 8.5 - 10.2 | EXTERNAL | | | | performed at [facility];888 | mg/dL | LAB | | | | [address];[place] | | | | | | [address] | | | | + + + + + -+ | Protein, | 8.2Comment: Testing | 6.3 - 8.2 g/dL | EXTERNAL | | | Total | performed at [facility];[address] | | LAB | | | | [address];[place] | | | | | | [address] | | | | + + + + + -+ | Albumin | 3.3 (L)Comment: Testing | 3.6 - 5.0 g/dL | EXTERNAL | | | | performed at [facility];[address] | | LAB | | | | [address];[place] | | | | | | [address] | | | | + + + + + -+ | Globulin | 4.9Comment: Testing | 1.3 - 4.9 g/dL | EXTERNAL | | | | performed at [facility];[address] | | LAB | | | | [address];[place] | | | | | | [address] | | | | + + + + + -+ | A/G Ratio | 0.7 (L)Comment: Testing | 1.0 - 2.4 | EXTERNAL | | | | performed at [facility];[address] | | LAB | | | | [address];[place] | | | | | | [address] | | | | + + + + + -+ | Bilirubin | 0.2Comment: Testing | 0.1 - 1.5 mg/dL | EXTERNAL | | | Total | performed at [facility];[address] | | LAB | | | | [address];[place] | | | | | | [address] | | | | + + + + + -+ | ALP, | 108Comment: Testing | 35 - 115 U/L | EXTERNAL | | | External | performed at [facility];[address] | | LAB | | | | [address];[place] | | | | | | [address] | | | | + + + + + -+ | AST | 153 (H)Comment: Testing | 10 - 45 U/L | EXTERNAL | | | | performed at [facility];[address] | | LAB | | | | [address];[place] | | | | | | [address] | | | | + + + + + -+ | ALT | 74 (H)Comment: Testing | 10 - 65 U/L | EXTERNAL | | | | performed at [facility];[address] | | LAB | | | | [address];[place] | | | | | | [address] | | | | + + + [...] | | | | | | at [facility];[address] | | [address];[place] [address] | | | | + + + + + -+ | CK, Total | 3032 (H)Comment: Testing | 30 - 240 U/L | EXTERNAL | | | | performed at [facility];[address] | | LAB | | | | [address];[place] | | | | | | [address] | | | | + + + [...] | | | | | performed at [facility];[address] | | | | | | [address];[place] | | | | | | [address] | | | | + + + + + -+ | aPTT, | 23Comment: Testing | 23 - 32 seconds | EXTERNAL | | | Patient | performed at [facility];[address] | | LAB | | | | [address];[place] | | | | | | [address] | | | | + + + + + -+ | CK-MB | 53.7 (H)Comment: Testing | 0.5 - 3.6 ng/mL | EXTERNAL | | | | performed at [facility];[address] | | LAB | | | | [address];[place] | | | | | | [address] | | | | + + + [...] EXTERNAL | | | | performed at [facility];[address] | | LAB | | | | [address] [facility];[place], [place] | | | | | | [address] | | | | + + + [...] EXTERNAL | | | | performed at [facility];888 | uIU/mL | LAB | | | | [address];[place], [place] | | | | | | [address] | | | | + + + [...] | | | (REF) | performed at [facility] | | LAB | | | | [address];[place] | | | | | | [address] | | | | + + + [...] EXTERNAL | | | | performed at [facility];[address] | | LAB | | | | [address];[place] | | | | | | [address] | | | | + + + [...] | | | Alcohol | performed at [facility];[address] | | LAB | | | | [address];[place], [place] | | | | | | [address] | | | | + + + [...] | | | | | ONLY, -COMPUTER (460), | | | | | | scientific editor JERAMY TRAORE | | | | | | (4) on 09/19/2013 2:21:45 | | | | | | PM | | | | + + + + + + + + | Specimen | + + | | + + + + + | Narrative | Performed At | + + + | Historically converted procedure from [facility] Epic environment | EXTERNAL LAB | + [...]
--- OUTSIDE RECORDS SUMMARY | ~2019-10-27 | XMS | Encounter Summary ---
Demographics + + + | Address | [address] | | | [place] [address] | + + + | Home Phone | | + + + | Preferred Language | Unknown | + + + | Marital Status | Single | + + + | Congregational Affiliation | 1009 | + + + | Race | Unknown | + + + | Ethnic Group | Unknown | + + + Author + + + | Author | [facility] | | | and [place] | + + + | Organization | [facility] [...] Team Providers + +------+ + | Care Keyboard Operator Name | Role | Phone | + +------+ + | Hayden Acevedo MD | PCP | | + +------+ + Encounter Details +--------+ + + + + | Date | Type | Department | Care Team | Description | +--------+ + + + + | 12/11/ | Hospital | [facility] | Conversion | | | 2014 | Encounter | [facility] | Transaction, | | | | | [address] | Provider Unknown | | | | | [place], [place] | | | | | | [address] | (Fax) | | | | | [phone] | | | +--------+ + + + [...] [address] | | | | | | [employer] [address] | | | | | | [place] [address] | | | | | | [phone] | | | | | | | | +--------+---------+ + + + documented as of this encounter Visit Diagnoses Not on filedocumented in this encounter"
--- OUTSIDE RECORDS SUMMARY | ~2019-10-27 | XMS | Encounter Summary ---
Demographics + + + | Address | [address] | | | [place] [address] | + + + | Home Phone [...] | Author | [facility] | | | and [place] | + + + | Organization | [facility] [...] Team Providers + +------+ + | Care Pier Worker Name | Role | Phone | + +------+ + | Hayden Acevedo MD | PCP | | + +------+ + Encounter Details +--------+ + + + + | Date | Type | Department | Care Team | Description | +--------+ + + + + | 12/24/ | Hospital | [facility] | Misha Todd, | Mixed incontinence | | 2013 - | Encounter | [facility] [address] | [address] | urge and stress | | | | [address] | [address] [place], | (male)(female); | | 12/26/ | | [place], [place] | [place] [address] | Hypothyroid; HTN | | 2013 | | [address] | [phone] | (hypertension); | | | | [phone] | | Anxiety; | | | | [...] Date of Service: 12/26/13 1043 Status: Signed Scrummaster: Misha Todd MD (Physician) [facility] Service: Obstetrics & Gynecology Discharge [...] REPAIR); Surgeon: Misha Todd MD; Locatio n: [facility]; Service: DEVELOPMENT CHEMIST; Laterality: N/A; Anterior portion was not completed Bladder suspension 12/24/2013 Procedure: BLADDER SUSPENSION - TVT; Surgeon: Misha Todd MD; Location: [facility]; Service: DEVELOPMENT CHEMIST; Laterality: N/A; TVT exact Cystoplasty 12/24/2013 Procedure: CYSTOSCOPY - HYDRODISTENTION OF BLADDER; Surgeon: Misha Todd MD; Locati on: [facility]; Service: DEVELOPMENT CHEMIST; Laterality: N/A; 70 degree scope. Indigo Emilia dye a vailable to Anesthesiologist Enterocele repair 12/24/2013 Procedure: ENTEROCELE RPR; Surgeon: Misha Todd MD; Location: [facility]; Servic e: DEVELOPMENT CHEMIST; Laterality: N/A; No Known Allergies Prescriptions prior [...] pr ocedure. 2 enema 0 ergocalciferol (DRISDOL) 37751 UNITS capsule Take 1 capsule by mouth [...] file. Follow up: Misha Todd MD [address] [facility] [address] [facility] [address] In 1 month Medication List As of [...] diagnoses: Loss Of Bladder Control, Painful Sexual [place], Fallen Bladder, [place] g Of Female Genital [...] are the prescriptions that you need to picker packer. You may get these medications from any [...] 12/26/131124 Date of Service: 12/26/131124 Status: Signed Scrummaster: Sarah Birch RN (Registered Nurse) Discharge instructions [...] 111 Date of Service: 12/25/131109 Status: Signed Scrummaster: JULIO Ocampo (Massage Therapist) 12/25/13 1100 MT Last Visit MT Received On 12/25/13 MT Therapy Visit Refused onver david Rodríguez, Provider Unknown - 12/25/2013 8:09 AM PDT Case Management by OG Mae at 12/25/13 0809 Author: OG Mae Service: (none) Author Type: Pharmacy Delivery Driver Filed: 12/25/13 0810 Date of Service: 12/25/13 0809 Status: Signed Scrummaster: OG Mae (Pharmacy Delivery Driver) CM met with pt for discharge planning. [...] B | | | | | | [place] [address] | | | | | | [phone] | | | | | | | | +--------+---------+ + + + documented as of this encounter Procedures + +--------+ + + + | Procedure Name | Priori | Date/Time | Associated Diagnosis | Comments | | | ty | | | | + +--------+ + + + | EXTERNAL LAB: [facility] | Routin | 12/25/2013 | | Results [...] | | | | | [place] [address] | | | | + + + + + + | Red Blood | 3.87Comment: Testing | 3.70 - 5.10 | EXTERNAL | | | Cells | performed at [facility], [address] | M/uL | LAB | | | Counted | [address], | | | | | | [place] [address] | | | | + + + + + + | Hemoglobin | 11.8Comment: Testing | 11.3 - 15.5 | EXTERNAL | | | | performed at [facility], [address] | g/dL | LAB | | | | [address], | | | | | | [place], [place] [address] | | | | + + + + + + | Hematocrit, | 35.8Comment: Testing | 34.0 - 46.0 % | EXTERNAL | | | POC | performed at [facility], [address] | | LAB | | | | [address], | | | | | | [place] [address] | | | | + + + + + + | MCV | 92.5Comment: Testing | 80.0 - 100.0 fl | EXTERNAL | | | | performed at [facility], [address] | | LAB | | | | [address], | | | | | | [place] [address] | | | | + + + + + + | MCH | 30.5Comment: Testing | 27.0 - 34.0 pg | EXTERNAL | | | | performed at [facility], [address] | | LAB | | | | [address], | | | | | | [place] [address] | | | | + + + + + + | MCHC | 32.9Comment: Testing | 32.0 - 35.5 | EXTERNAL | | | | performed at [facility], [address] | g/dL | LAB | | | | [address], | | | | | | [place] [address] | | | | + + + + + + | RDW-CV | 49.9Comment: Testing | 37 - 53 fl | EXTERNAL | | | | performed at [facility], [address] | | LAB | | | | [address], | | | | | | [place] [address] | | | | + + + + + + | Platelet | 208Comment: Testing | 150 - 400 K/uL | EXTERNAL | | | Count | performed at [facility], [address] | | LAB | | | Plasma | [address], | | | | | | [place] [address] | | | | + + + + + + | MPV | 8.4Comment: Testing | fl | EXTERNAL | | | | performed at [facility], [address] | | LAB | | | | [address], | | | | | | [place] [address] | | | | + + + [...] | | | | | [place] [address] | | | | + + + + + + | % Segmented | 86.6Comment: Testing | % | EXTERNAL | | | | performed at [facility], [address] | | LAB | | | Neutrophils | [address], | | | | | | [place] [address] | | | | + + + + + + | % | 9.0Comment: Testing | % | EXTERNAL | | | Lymphocytes | performed at [facility], [address] | | LAB | | | | [address], | | | | | | [place] [address] | | | | + + + + + + | % Monocytes | 4.3Comment: Testing | % | EXTERNAL | | | | performed at [facility], [address] | | LAB | | | | [address], | | | | | | [place] [address] | | | | + + + + + + | % | 0.0Comment: Testing | % | EXTERNAL | | | Eosinophils | performed at [facility], [address] | | LAB | | | | [address], | | | | | | [place] [address] | | | | + + + + + + | % Basophils | 0.1Comment: Testing | % | EXTERNAL | | | | performed at [facility], [address] | | LAB | | | | [address], | | | | | | [place] [address] | | | | + + + + + + | Absolute | 9.0 (H)Comment: Testing | 1.9 - 7.4 K/uL | EXTERNAL | | | Segmented | performed at [facility], [address] | | LAB | | | Neutrophils | [address], | | | | | | [place] [address] | | | | + + + + + + | Absolute | 0.9 (L)Comment: Testing | 1.0 - 3.9 K/uL | EXTERNAL | | | Lymphocytes | performed at [facility], [address] | | LAB | | | | [address], | | | | | | [place] [address] | | | | + + + + + + | Absolute | 0.4Comment: Testing | 0 - 0.8 K/uL | EXTERNAL | | | Monocytes | performed at [facility], [address] | | LAB | | | | [address], | | | | | | [place] [address] | | | | + + + + + + | Absolute | 0.0Comment: Testing | 0 - 0.5 K/uL | EXTERNAL | | | Eosinophils | performed at [facility], [address] | | LAB | | | | [address], | | | | | | [place] [address] | | | | + + + + + + | Absolute | 0.0Comment: Testing | 0 - 0.1 K/uL | EXTERNAL | | | Basophils | performed at [facility], [address] | | LAB | | | | [address], | | | | | | [place] [address] | | | | + + + [...] | | | | | [place] [address] | | | | + + + + + + | K | 4.5Comment: Testing | 3.5 - 4.9 | EXTERNAL | | | | performed at [facility], [address] | mmol/L | LAB | | | | [address], | | | | | | [place] [address] | | | | + + + + + + | Cl | 107Comment: Testing | 99 - 109 mmol/L | EXTERNAL | | | | performed at [facility], [address] | | LAB | | | | [address], | | | | | | [place] [address] | | | | + + + + + + | CO2 | 26Comment: Testing | 23 - 32 mmol/L | EXTERNAL | | | | performed at [facility], [address] | | LAB | | | | [address], | | | | | | [place] [address] | | | | + + + + + + | Anion Gap | 8Comment: Testing | 5 - 20 mmol/L | EXTERNAL | | | | performed at [facility], [address] | | LAB | | | | [address], | | | | | | [place] [address] | | | | + + + + + + | Glucose, | 137 (H)Comment: Testing | 65 - 99 mg/dL | EXTERNAL | | | Fasting | performed at [facility], [address] | | LAB | | | | [address], | | | | | | [place] [address] | | | | + + + + + + | BUN | 16Comment: Testing | 8 - 25 mg/dL | EXTERNAL | | | | performed at [facility], [address] | | LAB | | | | [address], | | | | | | [place] [address] | | | | + + + + + + | Creatinine | 0.75Comment: Testing | 0.50 - 1.00 | EXTERNAL | | | | performed at [facility], [address] | mg/dL | LAB | | | | [address], | | | | | | [place] [address] | | | | + + + + + + | BUN/Creatin | 21Comment: Testing | | EXTERNAL | | | ine Ratio | performed at [facility], [address] | | LAB | | | | [address], | | | | | | [place] [address] | | | | + + + + + + | Calcium | 9.1Comment: Testing | 8.5 - 10.2 | EXTERNAL | | | | performed at [facility], [address] | mg/dL | LAB | | | | [address], | | | | | | [place] [address] | | | | + + + [...] | | | | | at [facility], [address] | | | | | | [address], | | | | | | [place] [address] | | | | + + + [...] LAB | | | | Blvd;[place] [address] | | | | + + + + + + | Antibody | NEGATIVE | | EXTERNAL | | | Screen | | | LAB | | + + + + + + | Antibody | Testing performed at | | EXTERNAL | | | Screen | [facility] | | LAB | | | | [address];[place] [address] | | | | + + + + + + | BB BAND | [id number] | | EXTERNAL | | | | | | LAB | | + + + + + + | BB BAND | Testing performed at | | EXTERNAL | | | | [facility];[address] [place] [address] | | LAB | | | | [address];[place] [address] | | | | + + + [...]
--- OUTSIDE RECORDS SUMMARY | ~2019-10-27 | XMS | Encounter Summary ---
Demographics + + + | Address | [address] | | | [place] [address] | + + + | Home Phone | | + + + | Preferred Language | Unknown | + + + | Marital Status | Single | + + + | Jain Affiliation | 1009 | + + + | Race | Unknown | + + + | Ethnic Group | Unknown | + + + Author + + + | Author | [facility] | | | and [place] | + + + | Organization | [facility] | [...] + +------+ + | Care Director Of Manufacturing Name | Role | Phone | + +------+ + | Naren Nina PA-C | PCP | | + +------+ + Encounter Details +--------+ + + + + | Date | Type | Department | Care Team | Description | +--------+ + + + + | 03/20/ | Orders Only | [facility] | DyeMisha John, | | | 2013 | | ASSOCIATED | [address] | | | | | [facility] | [address] [place], | | | | | [address] | [place] [address] | | | | | [address] [place], | [phone] | | | | | [place] [address] | | | | | | [phone] | | | +--------+ + + + [...] | | | | | [place] [address] | | | | | | [phone] | | | | | | | [...]
--- OUTSIDE RECORDS SUMMARY | ~2019-10-27 | XMS | Clinical Summary ---
Demographics + + + | Address | [address] | | | [place] [address] | + + + | Home Phone [...] | Author | [facility] | | | and Osmelana | + + + | Organization | [facility] | | | [...] Team Providers + +------+ + | Care American Sign Language Interpreter Name | Role | Phone | [...] | | | | | Comments) Used TILE AND MARBLE SETTER | | | | | | and it lowered her | | | | | | BP And medication | | | | | | was stopped Other | | | | | | reaction(s): Other | | | | | | (See Comments) Used | | | | | | TILE AND MARBLE SETTER and it lowered | | | | | | her BP And | | | | | | medication was | | | | | | stopped Used TILE AND MARBLE SETTER | | | | | | and [...] | will have pt speak with the admissions coordinator today to help | | get [...] | | | | | [place] [address] | | | | | | [phone] | | | | | | | [...] | | | ETHS | | | /[address] | | | | | | | [...] +---------+--------+ | MEDICAID [place] | MEDICA | [id number] | 09/03/19 | [phone] | | Medica [...] [place] | | | 1 (Home) | [address] | + +--------+ +--------+ + + | Bisi Becker | Person | Self | [birth year] | [address] | | | al/Fam | | 1960 | [phone] | [place] | | | [place] | | | 1 ([place]) | [address] | + +--------+ +--------+ + + Advance Directives + + + + + | Type | Date Recorded | Patient | Explanation | | | | Electronic Warfare Technical | | + + + + + | Power of | | | | | Job Order Clerk | | | | + + + + + | Advance | | | | | Directive | | | | + + + + +
--- OUTSIDE RECORDS SUMMARY | ~2019-10-27 | XMS | Encounter Summary ---
Demographics + + + | Address | [address] | | | [place] [address] | + + + | Home Phone | | + + + | Preferred Language | Unknown | + + + | Marital Status | Single | + + + | Latter-Day Affiliation | 1009 | + + + | Race | Unknown | + + + | Ethnic Group | Unknown | + + + Author + + + | Author | [facility] | | | and [place] | + + + | Organization | [facility] [...] Team Providers + +------+ + | Care Occupational Medicine Officer Name | Role | Phone | [...] Provider Unknown | | | | | [place], [place] | | | | | | [address] | (Fax) | | | | | [phone] | | | +--------+ + + + [...] | 10/30/ | Office | Neurosurgery | CarlosJoseDO | | | 2019 | Visit | | [address] | | [address] | | | | | | [place] [address] | | | | | | [phone] | | | | | | | [...] + + + + | FIBROSURE | [id number]: minimal | | EXTERNAL | | | [...] + + + + | Necroinflam | [id number]: significant | | EXTERNAL | | | [...] + + + | HCV-LOG 10 | [id number] (A) | 0 Log IU/ml | EXTERNAL [...]
--- OUTSIDE RECORDS SUMMARY | ~2019-10-27 | XMS | Encounter Summary ---
Demographics + + + | Address | [address] | | | [place] [address] | + + + | Home Phone [...] + | Author | [facility] | | | and [place] | + + + | Organization | [facility] | | | and [...] Team Providers + +------+ + | Care Gantry Crane Operator Name | Role | Phone | + +------+ + | Naren Nina PA-C | PCP | | + +------+ + Encounter Details +--------+ + + + + | Date | Type | Department | Care Team | Description | +--------+ + + + + | 06/06/ | Hospital | [facility] | Conversion | Lumbar radiculopathy | | 2018 | Encounter | [facility] | Transaction, | | | | | [address] | Provider Unknown | | | | | [address] [place], [place] | [phone] | | | | | [address] | | | | | | [phone] | Jose Gonzalez DO | | | | | | [address] | | | | | | [address] [place], | | | | | | [place] [address] | | | | | | [phone] | | | | | | | [...] | (DESYREL) 100 mg | nightly. Take 06/05-2 | | | | | | tablet [...] | | | | | [place] [address] | | | | | | [phone] | | | | | | | [...]
--- OUTSIDE RECORDS SUMMARY | ~2019-10-27 | XMS | Encounter Summary ---
Demographics + + + | Address | [address] | | | [place] [address] | + + + | Home Phone [...] + + + | Author | and [facility] | | | and [place] | + + + | Organization | and [facility] | | [...] Team Providers + +------+ + | Care Allergist Name | Role | Phone | + +------+ + | Naren Nina PA-C | PCP | | + +------+ + Encounter Details +--------+ + + + + | Date | Type | Department | Care Team | Description | +--------+ + + + + | 02/10/ | Orders Only | [facility] | [place], | | | 2013 | | INFECTIOUS DISEASE | MD Delilah [address] | | | | | [address] | [place] | | | | | [place], [place] | [place] [address] | | | | | [address] | [phone] | | | | | [phone] | | | +--------+ + + + [...] Notes by Delilah Santos MD at 10/22/13 7434 Author: Delilah Santos MD Service: (none) Author Type: Physician Filed: 10/22/13 1636 Encounter Date: 10/22/2013 Status: Signed Sieve Maker: Delilah Santos MD (Physician) Subjective: Patient ID: Bisi Becker is a 53 y.o. female. HPI The patient has been referred by ANURAG Winters regarding chronic hepatitis C. Past medical history, medications, allergies, social and family history have been reviewed. The patient has a history of bipolar affective disorder, recent hospital admission to [facility] in September for polypharmacy resulting into altered [...] Dye. She will also follow-up with at [facility] on November 13 and according to the [...] PERFORMANCE CHARACTERISTICS DETERMINED BY [facility] OF [facility]ORATORY MEDICINE. IT [...] PERFORMANCE CHARACTERISTICS DETERMINED BY [facility]ORY MEDICINE. IT [...] 5. Gas obscures aorta, pancreas. abdomen complete [CMF088] Assessment and Plan: Visit Diagnoses and Associated [...] her primary care provider or through the [facility]. I will defer her bronchitis/COPD management with [...] B | | | | | | [place] [address] | | | | | | [phone] | | | | | | | [...] | | | Results | [address], | | | | | | [place] [address] | | | | + + + + + + | FIBROSURE | F1 TO F4Bgyxbck: Testing | | EXTERNAL | | | STAGE | performed by [facility], | | LAB | | | | [address], | | | | | | [place] [address] | | | | + + + + + + | Necroinflam | 0.33 (H)Comment: Testing | 0.00 - 0.17 | EXTERNAL | | | mat | performed by [facility], | | LAB | | | Activity | [address], | | | | | Score | [place] [address] | | | | + + + + + + | Necroinflam | SEE BELOWComment: A1, | | EXTERNAL | | | mat | MINIMAL ACTIVITYTesting | | LAB | | | Activity | performed by [facility], | | | | | Grade | [address], | | | | | | [place] [address] | | | | + + + + + + | Alpha | 290 (H)Comment: Testing | 110 - 276 mg/dL | EXTERNAL | | | 2-Macroglob | performed by [facility], | | LAB | | | wilfrid Qn | [address], | | | | | | [place] [address] | | | | + + + + + + | Haptoglobin | 134Comment: Testing | 34 - 200 mg/dL | EXTERNAL | | | | performed by [facility], | | LAB | | | | [address], | | | | | | [place] [address] | | | | + + + + + + | Apolipoprot | 127Comment: Testing | 110 - 205 mg/dL | EXTERNAL | | | ein A-1 | performed by [facility], | | LAB | | | | [address], | | | | | | [place] [address] | | | | + + + + + + | Bilirubin, | 0.2Comment: Testing | 0.0 - 1.2 mg/dL | EXTERNAL | | | Total | performed by [facility], | | LAB | | | | [address], | | | | | | [place] [address] | | | | + + + + + + | Gamma | 119 (H)Comment: Testing | 0 - 60 IU/L | EXTERNAL | | | Glutamyl | performed by [facility], | | LAB | | | Transferase | [address], | | | | | | [place] [address] | | | | + + + + + + | ALT (SGPT) | 53 (H)Comment: Testing | 0 - 40 IU/L | EXTERNAL | | | P5P | performed by [facility], | | LAB | | | | [address], | | | | | | [place] [address] | | | | + + + [...] [place], | | | | | | [facility] [address] | | | | + + + [...] [place] | | | | | | [address] | | | | + + + [...] DEPARTMENT | | | | | | [phone].Testing | | | | | | performed by [facility], | | | | | | [address], | | | | | | [place] [address] | | | | + + [...]
--- OUTSIDE RECORDS SUMMARY | ~2019-10-27 | XMS | Encounter Summary ---
Demographics + + + | Address | [address] | | | [place] [address] | + + + | Home Phone | | + + + | Preferred Language | Unknown | + + + | Marital Status | Single | + + + | Sabianism Affiliation | 1009 | + + + | Race | Unknown | + + + | Ethnic Group | Unknown | + + + Author + + + | Author | [facility] | | | and [place] | + + + | Organization | [facility] | | | and [place] | [...] Providers + +------+ + | Care Deputy District Customs Director Name | Role | Phone | + +------+ + | Hayden Acevedo MD | PCP | | + +------+ + Encounter Details +--------+ + + + + | Date | Type | Department | Care Team | Description | +--------+ + + + + | 08/21/ | Hospital | [facility] | Conversion | | | 2014 | Encounter | [facility] | Transaction, | | | | | [address] | Provider Unknown | | | | | [place], [place] | [phone] | | | | | [address] | | | | | | [phone] | Misha Dye MD | | | | | | [address] | | | | | | [address] [place], [place] | | | | | | [address] | | | | | | | [...] | | | | | [place] [address] | | | | | | [phone] | | | | | | | | +--------+---------+ + + + documented as of this encounter Visit Diagnoses Not on filedocumented in this encounter"
--- OUTSIDE RECORDS SUMMARY | ~2019-10-27 | XMS | Encounter Summary ---
Demographics + + + | Address | [address] | | | [place] [address] | + + + | Home Phone [...] | Author | [facility] | | | and [place] | + + + | Organization | [facility] | | | and [...] Team Providers + +------+ + | Care Demo Event Specialist Name | Role | Phone | [...] Provider Unknown | | | | | [place], [place] | | | | | | [address] | (Fax) | | | | | [phone] | | | +--------+ + + + [...] | | | | | [place] [address] | | | | | | [phone] | | | | | | | [...] g/dL Ref Range: | | | 0.6-1.5 [place] .[place] [facility] | | | Result: 3.55 mg/dL Ref | | | Range: 0.33-1.94 .[facility] | | | Result: 2.28 mg/dL Ref Range: 0.57-2.63 | | | .[place] Ratio Result: 1.56 | | | [...]
--- OUTSIDE RECORDS SUMMARY | ~2019-10-27 | XMS | Encounter Summary ---
Demographics + + + | Address | [address] | | | [place] [address] | + + + | Home Phone | | + + + | Preferred Language | Unknown | + + + | Marital Status | Single | + + + | Temple Affiliation | 1009 | + + + | Race | Unknown | + + + | Ethnic Group | Unknown | + + + Author + + + | Author | [facility] | | | and [place] | + + + | Organization | [facility] | | | and [place] [...] Providers + +------+ + | Care Chemical Processor Name | Role | Phone | + +------+ + | Hayden Acevedo MD | PCP | | + +------+ + Encounter Details +--------+ + + + + | Date | Type | Department | Care Team | Description | +--------+ + + + + | 10/08/ | Hospital | [facility] | Conversion | Abdominal pain | | 2014 | Encounter | [facility] | Transaction, | | | | | [address] | Provider Unknown | | | | | [address] | [phone] | | | | | [place], [place] | | | | | | [address] | | | | | | [phone] | | | +--------+ + + + [...] [address] | | | | | | [employer] [address] | | | | | | [place] [address] | | | | | | [phone] | | | | | | | [...]
--- OUTSIDE RECORDS SUMMARY | ~2019-10-27 | XMS | Encounter Summary ---
Demographics + + + | Address | [address] | | | [place] [address] | + + + | Home Phone | | + + + | Preferred Language | Unknown | + + + | Marital Status | Single | + + + | Scientology Affiliation | 1009 | + + + | Race | Unknown | + + + | Ethnic Group | Unknown | + + + Author + + + | Author | [facility] | | | and [place] | + + + | Organization | [facility] | | | and [place] [...] Providers + +------+ + | Care Sales Clerk Food Name | Role | Phone | + +------+ + | Naren Nina PA-C | PCP | | + +------+ + Encounter Details +--------+ + + + + | Date | Type | Department | Care Team | Description | +--------+ + + + + | 01/07/ | Orders Only | [facility] | Provider, | | | 2019 | | SYSTEM GENERIC OP | MD [address] | | | | | [address] | [place] | | | | | [address] [place], [place] | [place] [address] | | | | | [address] | | | | | | [phone] | | | +--------+ + + + [...] | | | | | [place] [address] | | | | | | [phone] | | | | | | | | +--------+---------+ + + + documented as of this encounter Visit Diagnoses Not on filedocumented in this encounter"
--- OUTSIDE RECORDS SUMMARY | ~2019-10-27 | XMS | Encounter Summary ---
Demographics + + + | Address | [address] | | | [place] [address] | + + + | Home Phone [...] Author | [facility] | | | and [place] | + + + | Organization | [facility] | | | and [...] Team Providers + +------+ + | Care Joy Operator Helper Name | Role | Phone [...] | Cervical | [address] | | | | n | radiculopath | [address] | [place], | | | | | y Left arm | [place], | [place] [address] | | | | | numbness | [place] [address] | Phone: | | | | | Left arm | Phone: | [phone] | | | | | weakness | [phone] | Fax: | | | | | Procedures | Fax: | [phone] | | | | | DOS 01/04/16 | [phone] | | +--------+ + + + + + Encounter Details +--------+ + + + + | Date | Type | Department | Care Team | Description | +--------+ + + + + | 01/31/ | Procedure | [facility] [place] | Henri Stewart, | Cervicalgia (Primary | | 2016 | visit | PHYSIATRY [address] | MD [address] | Dx); Cervical | | | | [address] | [place] | radiculopathy; | | | | [place], [place] | [address] | Cervical spinal | | | | [address] | | stenosis | | | | [phone] | | | +--------+ + + + [...] might be different fro m the original. [facility] Physical Medicine & Rehabilitation [address] [place] [address], [facility] [address] [place] [address] Test Date: 02/01/2016 Patient Name: Bisi Becker : 1960 Physician: Henri Stewart MD () MR #: [id number] Sex: Female Referring Physician: Naren Nina PA-C [...] she describes as lo ss of hand epic willow analyst. She reports that she sometimes drops objects [...] She has 4/5 biceps, deltoid and hand epic willow analyst strength on the left compared to 5/5 [...] B | | | | | | [place] [address] | | | | | | [phone] | | | | | | | [...]
--- OUTSIDE RECORDS SUMMARY | ~2019-10-27 | XMS | Encounter Summary ---
Demographics + + + | Address | [address] | | | [place] [address] | + + + | Home Phone | | + + + | Preferred Language | Unknown | + + + | Marital Status | Single | + + + | Church Affiliation | 1009 | + + + | Race | Unknown | + + + | Ethnic Group | Unknown | + + + Author + + + | Author | [facility] | | | and [place] | + + + | Organization | [facility] | | | and [place] [...] Team Providers + +------+ + | Care Shoe Salesman Name | Role | Phone | + [...] Provider Unknown | | | | | [place], [place] | | | | | | [address] | (Fax) | | | | | [phone] | | | +--------+ + + + [...] | | | | | | [place] [address] | | | | | | [phone] | | | | | | | [...] + + + + | FIBROSURE | [id number]: CIRRHOSIS | | EXTERNAL | | | [...] + + + + | Necroinflam | T3Dbozsty: SEVERE | | EXTERNAL | | | [...] + + + + | HCV | [id number] (A) | 0 IU/ml | EXTERNAL | [...]
--- OUTSIDE RECORDS SUMMARY | ~2019-10-27 | XMS | Encounter Summary ---
Demographics + + + | Address | [address] | | | [place] [address] | + + + | Home Phone | | + + + | Preferred Language | Unknown | + + + | Marital Status | Single | + + + | Christian Affiliation | 1009 | + + + | Race | Unknown | + + + | Ethnic Group | Unknown | + + + Author + + + | Author | [facility] | | | and [place] | + + + | Organization | [facility] [...] Team Providers + +------+ + | Care Magnetic Prospector Name | Role | Phone | + +------+ + | Naren Nina PA-C | PCP | | + +------+ + Encounter Details +--------+ + + + + | Date | Type | Department | Care Team | Description | +--------+ + + + + | 01/07/ | Orders Only | [facility] | Provider, | | | 2019 | | SYSTEM GENERIC OP | MD [address] | | | | | [address] | [address] | | | | | [address] [place], [place] | [place] [address] | | | | | [address] | | | | | | [phone] | | | +--------+ + + + [...] | | | | | [place] [address] | | | | | | [phone] | | | | | | | | +--------+---------+ + + + documented as of this encounter Visit Diagnoses Not on filedocumented in this encounter"
--- OUTSIDE RECORDS SUMMARY | ~2019-10-27 | XMS | Encounter Summary ---
Demographics + + + | Address | [address] | | | [place] [address] | + + + | Home Phone [...] Author | [facility] | | | and [place] | + + + | Organization | [facility] | | | and [...] Team Providers + +------+ + | Care Label Paster Name | Role | Phone | + [...] Provider Unknown | | | | | [place], [place] | | | | | | [address] | (Fax) | | | | | [phone] | | | +--------+ + + + [...] | | | | | | [place] [address] | | | | | | [phone] | | | | | | | [...]
--- OUTSIDE RECORDS SUMMARY | ~2019-10-27 | XMS | Encounter Summary ---
Demographics + + + | Address | [address] | | | [place] [address] | + + + | Home Phone [...] [facility] | | | and [place] | + + + | Organization | [facility] | | | and [...] Providers + +------+ + | Care Chemical Laboratory Scientist Name | Role | Phone | + +------+ + | Hayden Acevedo MD | PCP | | + +------+ + Encounter Details +--------+ + + + + | Date | Type | Department | Care Team | Description | +--------+ + + + + | 08/21/ | Hospital | [facility] | Conversion | | | 2014 | Encounter | [facility] | Transaction, | | | | | [address] | Provider Unknown | | | | | [place], [place] | [phone] | | | | | [address] | | | | | | [phone] | Misha Dye MD | | | | | | [address] | | | | | | [address] [place], [place] | | | | | | [address] | | | | | | | [...] | | | | | [place] [address] | | | | | | [phone] | | | | | | | | +--------+---------+ + + + documented as of this encounter Visit Diagnoses Not on filedocumented in this encounter"
--- OUTSIDE RECORDS SUMMARY | ~2019-10-27 | XMS | Encounter Summary ---
Demographics + + + | Address | [address] | | | [place] [address] | + + + | Home Phone | | + + + | Preferred Language | Unknown | + + + | Marital Status | Single | + + + | Rastafari Affiliation | 1009 | + + + | Race | Unknown | + + + | Ethnic Group | Unknown | + + + Author + + + | Author | [facility] | | | and [place] | + + + | Organization | [facility] | | | and [place] [...] Team Providers + +------+ + | Care Custom Tailor Apprentice Name | Role | Phone | + +------+ + | Hayden Acevedo MD | PCP | | + +------+ + Encounter Details +--------+ + + + + | Date | Type | Department | Care Team | Description | +--------+ + + + + | 10/08/ | Hospital | [facility] | Conversion | Abdominal pain | | 2014 | Encounter | [facility] | Transaction, | | | | | [address] | Provider Unknown | | | | | [address] | [phone] | | | | | [place], [place] | | | | | | [address] | | | | | | [phone] | | | +--------+ + + + [...] [address] | | | | | | [address] | | | | | | [place] [address] | | | | | | [phone] | | | | | | | [...]
--- OUTSIDE RECORDS SUMMARY | ~2019-10-27 | XMS | Encounter Summary ---
Demographics + + + | Address | [address] | | | [place] [address] | + + + | Home Phone [...] Author | [facility] | | | and [place] | + + + | Organization | [facility] | | | and [...] Team Providers + +------+ + | Care Felt Hat Flanging Operator Name | Role | Phone | + +------+ + | Naren Nina PA-C | PCP | | + +------+ + Encounter Details +--------+ + + + + | Date | Type | Department | Care Team | Description | +--------+ + + + + | 05// | Orders Only | [facility] | Mariia Owusu, | | | 2013 | | [facility] | LABEL PRINTING MACHINIST [address] | | | | | CARE [address] | [place] [address] | | | | | [place], [place] | [phone] | | | | | [address] | | | | | | [phone] | | | +--------+ + + + [...] | | | | | | [place] [address] | | | | | | [phone] | | | | | | | [...] | | | | | | [facility]ED[facility] | | | | | | DIVISION [...] + + | Performing | Address | City/State/[facility] | Phone Number | | [...] + + + + | HCV | [id number] (A)Comment: | [iU]/mL | EXTERNAL | | [...] /uL | EXTERNAL | | | CD4 ([place]anna | | | LAB | | | [...] | | | | | | DETERMINEDBY [facility] | | | | | | [facility] | | | | | | [place]. IT HAS NOT BEEN | | | [...]
--- OUTSIDE RECORDS SUMMARY | ~2019-10-27 | XMS | Encounter Summary ---
Demographics + + + | Address | [address] | | | [place] [address] | + + + | Home Phone [...] Author | [facility] | | | and [place] | + + + | Organization | [facility] | | | and [...] Team Providers + +------+ + | Care Flat Locker Name | Role | Phone | + [...] [address] | | | | | [place], [place] | [address] | | | | | [address] | [place] [address] | | | | | [phone] | [phone] | | | | | | | [...] | | | | | [place] [address] | | | | | | [phone] | | | | | | | [...] by | | | | | | [facility] liquid | | | | | [...]
--- OUTSIDE RECORDS SUMMARY | ~2019-10-27 | XMS | Encounter Summary ---
Demographics + + + | Address | [address] | | | [place] [address] | + + + | Home Phone [...] + + + | Author | [facility] | | | and [place] | + + + | Organization | [facility] | | | and [...] Team Providers + +------+ + | Care Stock Unloader Name | Role | Phone | + [...] | | | | low back | [address] | [address] | | | | | pain with | [place], | [place], | | | | | bilateral | [place] [address] | [place] [address] | | | | | sciatica | Phone: | Phone: | | | | | Cervicalgia | [phone] | [phone] | | | | | Cervical | Fax: | Fax: | | | | | radiculopath | [phone] | [phone] | | | | | y Facet [...] PHYSIATRY [address] | MD [address] | low back pain with | | | | [address] | [place], [place] | bilateral sciatica | | | | [place], [place] | [address] | (Primary Dx); | | | | [address] | | Cervicalgia; | | | | [phone] | | Cervical | | | | | | radiculopathy; Facet | | | | | | arthritis of | | | | | | cervical region | | | | | | ([facility]) | +--------+ + + + + Social [...] | | | | | [place] [address] | | | | | | [phone] | | | | | | | [...]
--- OUTSIDE RECORDS SUMMARY | ~2019-10-27 | XMS | Encounter Summary ---
Demographics + + + | Address | [address] | | | [place] [address] | + + + | Home Phone [...] + | Author | [facility] | | | and [place] | + + + | Organization | [facility] | | [...] Team Providers + +------+ + | Care Procurement Clerk Name | Role | Phone | + +------+ + | Hayden Acevedo MD | PCP | | + +------+ + Encounter Details +--------+ + + + + | Date | Type | Department | Care Team | Description | +--------+ + + + + | 03/30/ | Emergency | [facility] | Henry Cedillo MD | COPD exacerbation | | 2013 | | MEDICAL CENTER | [address] | ([facility]) | | | | EMERGENCY CENTER | [place] [address] | | | | | [address] | [phone] | | | | | [place], [place] | | | | | | [address] | | | | | | [phone] | | | +--------+ + + + [...] Author: OG Bardales Service: (none) Author Type: Communications Officer Filed: 03/30/142125 Date of Service: 03/30/142125 Status: Signed Manager Competitive Intelligence: OG Bardales (Communications Officer) BALDO vega Pt with 6 ED visits [...] B | | | | | | [place] [address] | | | | | | [phone] | | | | | | | [...]
--- OUTSIDE RECORDS SUMMARY | ~2019-10-27 | XMS | Encounter Summary ---
Demographics + + + | Address | [address] | | | [place] [address] | + + + | Home Phone [...] Providers + +------+ + | Care Molecular Biologist Name | Role | Phone | + +------+ + | Hayden Acevedo MD | PCP | | + +------+ + Encounter Details +--------+ + + + + | Date | Type | Department | Care Team | Description | +--------+ + + + + | 08/19/ | Hospital | [facility] | Conversion | LBP radiating to | | 2013 | Encounter | [facility] | Transaction, | left leg | | | | [address] | Provider Unknown | | | | | [place], [place] | | | | | | [phone] | (Fax) | | | | | [phone] | | | +--------+ + + + [...] [facility] | | | | | | [address] | | | | | | [place] [address] | | | | | | [phone] | | | | | | | [...]
--- OUTSIDE RECORDS SUMMARY | ~2019-10-27 | XMS | Encounter Summary ---
Demographics + + + | Address | [address] | | | [place] [address] | + + + | Home Phone [...] Author | [facility] | | | and [place] | + + + | Organization | [facility] | [...] Providers + +------+ + | Care Clinical Education Manager Name | Role | Phone | [...] | | | | EMERGENCY CENTER | [place], [place] | | | | | [address] | [address] | | | | | [place], [place] | [phone] | | | | | [address] | | | | | | [phone] | | | +--------+ + + + [...] | | | | | | [place] [address] | | | | | | [phone] | | | | | | | | +--------+---------+ + + + documented as of this encounter Visit Diagnoses + + | Diagnosis | + + | Backache, unspecified | + + documented in this encounter"
--- OUTSIDE RECORDS SUMMARY | ~2019-10-27 | XMS | Encounter Summary ---
Demographics + + + | Address | [address] | | | [place] [address] | + + + | Home Phone [...] + | Author | [facility] | | | and [place] | + + + | Organization | [facility] | [...] Team Providers + +------+ + | Care Technical Service Engineer Name | Role | Phone | + +------+ + | Hayden Acevedo MD | PCP | | + +------+ + Encounter Details +--------+ + + + + | Date | Type | Department | Care Team | Description | +--------+ + + + + | 08/07/ | Hospital | [facility] | Conversion | | | 2014 | Encounter | [facility] | Transaction, | | | | | [address] | Provider Unknown | | | | | [address] [place], [place] | | | | | | [address] | (Fax) | | | | | [phone] | | | +--------+ + + + [...] [facility] | | | | | | [employer] [address] | | | | | | [place] [address] | | | | | | [phone] | | | | | | | | +--------+---------+ + + + documented as of this encounter Visit Diagnoses Not on filedocumented in this encounter"
--- OUTSIDE RECORDS SUMMARY | ~2019-10-27 | XMS | Encounter Summary ---
Demographics + + + | Address | [address] | | | [place] [address] | + + + | Home Phone [...] Author | [facility] | | | and [place] | + + + | Organization | [facility] | | | and [place] | [...] Team Providers + +------+ + | Care Cryptographic Machine Operator Name | Role | Phone | + +------+ + | Hayden Acevedo MD | PCP | | + +------+ + Encounter Details +--------+ + + + + | Date | Type | Department | Care Team | Description | +--------+ + + + + | 12/11/ | Hospital | [facility] | Conversion | | | 2014 | Encounter | [facility] | Transaction, | | | | | CLINIC [address] | Provider Unknown | | | | | [place], [place] | [phone] | | | | | [phone] | (Fax) | | | | | [phone] | | | +--------+ + + + [...] | | | | | [place] [address] | | | | | | [phone] | | | | | | | [...] LAB | | | | Blvd;[place] [address] | | | | + + + + + + | Antibody | NEGATIVE | | EXTERNAL | | | Screen | | | LAB | | + + + + + + | Antibody | Testing performed at | | EXTERNAL | | | Screen | [facility] | | LAB | | | | Blvd;[place] [address] | | | | + + + [...] | | | | | performed at [facility], [address] | | | | | | [facility], | | | | | | [place] [address] | | | | + + + [...] EXTERNAL | | | | performed at [facility], [address] | | LAB | | | | [address], | | | | | | [place] [address] | | | | + + + + + + | Red Blood | 4.38Comment: Testing | 3.70 - 5.10 | EXTERNAL | | | Cells | performed at [facility], [address] | M/uL | LAB | | | Counted | [address], | | | | | | [place] [address] | | | | + + + + + + | Hemoglobin | 13.1Comment: Testing | 11.3 - 15.5 | EXTERNAL | | | | performed at [facility], [address] | g/dL | LAB | | | | [address], | | | | | | [place] [address] | | | | + + + + + + | Hematocrit, | 40.3Comment: Testing | 34.0 - 46.0 % | EXTERNAL | | | POC | performed at [facility], [address] | | LAB | | | | [address], | | | | | | [place] [address] | | | | + + + + + + | MCV | 92.1Comment: Testing | 80.0 - 100.0 fl | EXTERNAL | | | | performed at [facility], [address] | | LAB | | | | [address], | | | | | | [place] [address] | | | | + + + + + + | MCH | 29.9Comment: Testing | 27.0 - 34.0 pg | EXTERNAL | | | | performed at [facility], [address] | | LAB | | | | [address], | | | | | | [place] [address] | | | | + + + + + + | MCHC | 32.5Comment: Testing | 32.0 - 35.5 | EXTERNAL | | | | performed at [facility], [address] | g/dL | LAB | | | | [address], | | | | | | [place] [address] | | | | + + + + + + | RDW-CV | 48.1Comment: Testing | 37 - 53 fl | EXTERNAL | | | | performed at [facility], [address] | | LAB | | | | [address], | | | | | | [place] [address] | | | | + + + + + + | Platelet | 271Comment: Testing | 150 - 400 K/uL | EXTERNAL | | | Count | performed at [facility], [address] | | LAB | | | Plasma | [address], | | | | | | [place] [address] | | | | + + + + + + | MPV | 8.8Comment: Testing | fl | EXTERNAL | | | | performed at [facility], [address] | | LAB | | | | [address], | | | | | | [place] [address] | | | | + + + + + + | Differentia | AUTOMATEDComment: | | EXTERNAL | | | l Type | Testing performed at | | LAB | | | | [facility], [address] | | | | | | [place] | | | | | | [address] | | | | + + + + + + | % Segmented | 52.9Comment: Testing | % | EXTERNAL | | | | performed at [facility], [address] | | LAB | | | Neutrophils | [address], | | | | | | [place] [address] | | | | + + + + + + | % | 33.3Comment: Testing | % | EXTERNAL | | | Lymphocytes | performed at [facility], [address] | | LAB | | | | [address], | | | | | | [place] [address] | | | | + + + + + + | % Monocytes | 7.9Comment: Testing | % | EXTERNAL | | | | performed at [facility], [address] | | LAB | | | | [address], | | | | | | [place] [address] | | | | + + + + + + | % | 5.1Comment: Testing | % | EXTERNAL | | | Eosinophils | performed at [facility], [address] | | LAB | | | | [address], | | | | | | [place] [address] | | | | + + + + + + | % Basophils | 0.8Comment: Testing | % | EXTERNAL | | | | performed at [facility], [address] | | LAB | | | | [address], | | | | | | [place] [address] | | | | + + + + + + | Absolute | 3.6Comment: Testing | 1.9 - 7.4 K/uL | EXTERNAL | | | Segmented | performed at [facility], [address] | | LAB | | | Neutrophils | [address], | | | | | | [place] [address] | | | | + + + + + + | Absolute | 2.3Comment: Testing | 1.0 - 3.9 K/uL | EXTERNAL | | | Lymphocytes | performed at [facility], [address] | | LAB | | | | [address], | | | | | | [place] [address] | | | | + + + + + + | Absolute | 0.5Comment: Testing | 0 - 0.8 K/uL | EXTERNAL | | | Monocytes | performed at [facility], [address] | | LAB | | | | [address], | | | | | | [place] [address] | | | | + + + + + + | Absolute | 0.3Comment: Testing | 0 - 0.5 K/uL | EXTERNAL | | | Eosinophils | performed at [facility], [address] | | LAB | | | | [address], | | | | | | [place] [address] | | | | + + + + + + | Absolute | 0.1Comment: Testing | 0 - 0.1 K/uL | EXTERNAL | | | Basophils | performed at [facility], [address] | | LAB | | | | [address], | | | | | | [place] [address] | | | | + + + [...] | | | | | [place] [address] | | | | + + + + + + | K | 3.5Comment: Testing | 3.5 - 4.9 | EXTERNAL | | | | performed at [facility], [address] | mmol/L | LAB | | | | [address], | | | | | | [place] [address] | | | | + + + + + + | Cl | 108Comment: Testing | 99 - 109 mmol/L | EXTERNAL | | | | performed at [facility], [address] | | LAB | | | | [address], | | | | | | [place] [address] | | | | + + + + + + | CO2 | 27Comment: Testing | 23 - 32 mmol/L | EXTERNAL | | | | performed at [facility], [address] | | LAB | | | | [address], | | | | | | [place] [address] | | | | + + + + + + | Anion Gap | 6Comment: Testing | 5 - 20 mmol/L | EXTERNAL | | | | performed at [facility], [address] | | LAB | | | | [address], | | | | | | [place] [address] | | | | + + + + + + | Glucose, | 104 (H)Comment: Testing | 65 - 99 mg/dL | EXTERNAL | | | Fasting | performed at [facility], [address] | | LAB | | | | [address], | | | | | | [place] [address] | | | | + + + + + + | BUN | 21Comment: Testing | 8 - 25 mg/dL | EXTERNAL | | | | performed at [facility], [address] | | LAB | | | | [address], | | | | | | [place] [address] | | | | + + + + + + | Creatinine | 0.84Comment: Testing | 0.50 - 1.00 | EXTERNAL | | | | performed at [facility], [address] | mg/dL | LAB | | | | [address], | | | | | | [place] [address] | | | | + + + + + + | BUN/Creatin | 25Comment: Testing | | EXTERNAL | | | ine Ratio | performed at [facility], [address] | | LAB | | | | [address], | | | | | | [place] [address] | | | | + + + + + + | Calcium | 10.1Comment: Testing | 8.5 - 10.2 | EXTERNAL | | | | performed at [facility], [address] | mg/dL | LAB | | | | [address], | | | | | | [place] [address] | | | | + + + + + + | Protein, | 8.2Comment: Testing | 6.3 - 8.2 g/dL | EXTERNAL | | | Total | performed at [facility], [address] | | LAB | | | | [address], | | | | | | [place] [address] | | | | + + + + + + | Albumin | 3.8Comment: Testing | 3.6 - 5.0 g/dL | EXTERNAL | | | | performed at [facility], [address] | | LAB | | | | [address], | | | | | | [place] [address] | | | | + + + + + + | Globulin | 4.4Comment: Testing | 1.3 - 4.9 g/dL | EXTERNAL | | | | performed at [facility], [address] | | LAB | | | | [address], | | | | | | [place] [address] | | | | + + + + + + | A/G Ratio | 0.9 (L)Comment: Testing | 1.0 - 2.4 | EXTERNAL | | | | performed at [facility], [address] | | LAB | | | | [address], | | | | | | [place] [address] | | | | + + + + + + | Bilirubin | 0.2Comment: Testing | 0.1 - 1.5 mg/dL | EXTERNAL | | | Total | performed at [facility], [address] | | LAB | | | | [address], | | | | | | [place] [address] | | | | + + + + + + | ALP, | 94Comment: Testing | 35 - 115 U/L | EXTERNAL | | | External | performed at [facility], [address] | | LAB | | | | [address], | | | | | | [place] [address] | | | | + + + + + + | AST | 126 (H)Comment: Testing | 10 - 45 U/L | EXTERNAL | | | | performed at [facility], [address] | | LAB | | | | [address], | | | | | | [place] [address] | | | | + + + + + + | ALT | 164 (H)Comment: Testing | 10 - 65 U/L | EXTERNAL | | | | performed at [facility], [address] | | LAB | | | | [address], | | | | | | [place] [address] | | | | + + + [...] | | | | | | at [facility], [address] | | | | | | [address], | | | | | | [place] [address] | | | | + + + [...]
--- OUTSIDE RECORDS SUMMARY | ~2019-10-27 | XMS | Encounter Summary ---
Demographics + + + | Address | [address] | | | [place] [address] | + + + | Home Phone [...] | Author | [facility] | | | and [place] | + + + | Organization | [facility] [...] Team Providers + +------+ + | Care Account Service Associate Name | Role | Phone | + +------+ + | Hayden Acevedo MD | PCP | | + +------+ + Encounter Details +--------+ + + + + | Date | Type | Department | Care Team | Description | +--------+ + + + + | 06/22/ | Emergency | [facility] | Navneet Stewart | Cough; | | 2013 | | MEDICAL CENTER | DO Jazlyn Lopez [address] | Fever; | | | | EMERGENCY CENTER | [place], [place] | Bronchitis; | | | | [address] | [address] | Dyspnea | | | | [place], [place] | | | | | | [address] | | | | | | [phone] | | | +--------+ + + + [...] | | | | | [place] [address] | | | | | | [phone] | | | | | | | [...] ICA | | | Testing performed at [facility];[address] [place] [address];[place] [address] | | | REPORT STATUS 06/22/2013 FINAL [...] COCCOBACILLI | | | Testing performed at [facility], [address] [place] [address], | | | [place] [address] CULTURE | | | SMEAR CONTAINS GREATER THAN 10 SEC/LPF SUGGESTIVE OF POOR QUALITY | | | SPECIMEN. SPECIMEN WILL NOT BE CULTURED OR WILL BE CULTURED BY | | | SPECIAL REQUEST ONLY. PLEASE RECOLLECT IF CLINICALLY INDICATED. | | | SPECIMEN WILL BE HELD 48 HOURS. | | | Testing performed at [facility], [address] [place] [address], | | | [place] [address] REPORT STATUS | | | 06/23/2013 FINAL [...]
--- OUTSIDE RECORDS SUMMARY | ~2019-10-27 | XMS | Encounter Summary ---
Demographics + + + | Address | [address] | | | [place] [address] | + + + | Home Phone | | + + + | Preferred Language | Unknown | + + + | Marital Status | Single | + + + | Religion Affiliation | 1009 | + + + | Race | Unknown | + + + | Ethnic Group | Unknown | + + + Author + + + | Author | [facility] | | | and [place] | + + + | Organization | [facility] | | [...] Team Providers + +------+ + | Care Shingle Sawyer Name | Role | Phone | + [...] Provider Unknown | | | | | [place], [place] | | | | | | [address] | (Fax) | | | | | [phone] | | | +--------+ + + + [...] | | | | | | [place] [address] | | | | | | [phone] | | | | | | | [...]
--- OUTSIDE RECORDS SUMMARY | ~2019-10-27 | XMS | Encounter Summary ---
Demographics + + + | Address | [address] | | | [place] [address] | + + + | Home Phone [...] | Author | [facility] | | | and [place] | + + + | Organization | [facility] | | | and [place] [...] Team Providers + +------+ + | Care Hardware Design Engineer Name | Role | Phone | + +------+ + | Hayden Acevedo MD | PCP | | + +------+ + Encounter Details +--------+ + + + + | Date | Type | Department | Care Team | Description | +--------+ + + + + | 12/11/ | Hospital | [facility] | Conversion | | | 2014 | Encounter | [facility] | Transaction, | | | | | [address] | Provider Unknown | | | | | [place], [place] | | | | | | [address] | (Fax) | | | | | [phone] | | | +--------+ + + + [...] [facility] | | | | | | [employer] [address] | | | | | | [place] [address] | | | | | | [phone] | | | | | | | | +--------+---------+ + + + documented as of this encounter Visit Diagnoses Not on filedocumented in this encounter"
--- OUTSIDE RECORDS SUMMARY | ~2019-10-27 | XMS | Encounter Summary ---
Demographics + + + | Address | [address] | | | [place] [address] | + + + | Home Phone [...] | Author | [facility] | | | and [place] | + + + | Organization | [facility] | | | and [place] [...] Team Providers + +------+ + | Care Twister Tender Name | Role | Phone | + [...] PHYSIATRY [address] | MD [address] | | | | | [address] | [place], [place] | | | | | [place], [place] | [address] | | | | | [address] | | | | | | [phone] | | | +--------+ + + + [...] | | | | | [place] [address] | | | | | | [phone] | | | | | | | | +--------+---------+ + + + documented as of this encounter Visit Diagnoses Not [facility]"
--- OUTSIDE RECORDS SUMMARY | ~2019-10-27 | XMS | Encounter Summary ---
Demographics + + + | Address | [address] | | | [place] [address] | + + + | Home Phone [...] | Author | [facility] | | | and [place] | + + + | Organization | [facility] | [...] Providers + +------+ + | Care Sales Teacher Name | Role | Phone | [...] + + | 10/20/ | Telephone | [facility] | Jose Gonzalez DO | Appointment | | 2020 | | NEUROSURGERY [address] | [address] | | | | | [address] | [address] | | | | | [place], [place] | [place] [address] | | | | | [address] | [phone] | | | | | [phone] | | | +--------+ + + + [...] | | | | | [place] [address] | | | | | | [phone] | | | | | | | | +--------+---------+ + + + documented as of this encounter Visit Diagnoses Not on filedocumented in this encounter"
--- OUTSIDE RECORDS SUMMARY | ~2019-10-27 | XMS | Encounter Summary ---
Demographics + + + | Address | [address] | | | [place] [address] | + + + | Home Phone [...] | Author | [facility] | | | and [place] | + + + | Organization | [facility] [...] Providers + +------+ + | Care Airport Operations Coordinator Name | Role | Phone | + +------+ + | Hayden Acevedo MD | PCP | | + +------+ + Encounter Details +--------+ + + + + | Date | Type | Department | Care Team | Description | +--------+ + + + + | 03/30/ | Emergency | [facility] | Henry Cedillo MD | COPD exacerbation | | 2013 | | MEDICAL CENTER | [address] | ([facility]) | | | | EMERGENCY CENTER | [place] [address] | | | | | [address] | [phone] | | | | | [place], [place] | | | | | | [address] | | | | | | [phone] | | | +--------+ + + + [...] Author: OG Bardales Service: (none) Author Type: Hadoop Software Engineer Filed: 03/30/142125 Date of Service: 03/30/142125 Status: Signed Health Safety Engineer: OG Bardales (Hadoop Software Engineer) [place] ve[place] Pt with 6 ED visits [...] B | | | | | | [place] [address] | | | | | | [phone] | | | | | | | [...]
--- OUTSIDE RECORDS SUMMARY | ~2019-10-27 | XMS | Clinical Summary ---
Demographics + + + | Address | [address] | | | [place] [address] | + + + | Home Phone [...] + + + | Author | [facility] (Historical as of | | | 01-18-19) | + + + | Organization | [facility] (Historical as of | | | 01-18-19) | + + + | Address | Unknown | + + + | Phone | Unavailable | + + + Support + + +---------+ + | Name | Relationship | Address | Phone | + + +---------+ + | Mark Lewis | ECON | Unknown | | + + +---------+ + Care Team Providers + +------+ + | Care Fashion Buyer Name | Role | Phone | + [...] | | | | | Comments) Used HOTEL ATTENDANT | | | | | | and it lowered her | | | | | | BP And medication | | | | | | was stopped Used | | | | | | HOTEL ATTENDANT and it lowered | | | | [...] capsule by | 90 | 3 | 06/05 | | Activ | | (PROZAC) 40 MG | mouth daily. | capsule | | 07/24 | | e | | capsuleIndications: | [...] + + | Overview: Managed by Dr. Perea Last Assessment & Plan: i | | will [...] will have pt speak with the patient financial services coordinator today to help | | get [...] MD | | | | | | /[id number] | | | | | | | [...] +------+-------+ + | MEDICAID | MEDICA | [id number] | | | [address] | | | [place] | | | | [place], [place] | | | [place] | | | | [address] | + +--------+ +------+-------+ + + +--------+ +--------+ + + | Guarantor Name | Accoun | Relation to | Date | Phone | Billing Address | | | t Type | Patient | of | | | | | | | | | | + +--------+ +--------+ + + | NOHEMI BECKER | Person | Self [birth year] Home: | [address] | | | al/Fam | | 1960 | [phone] [place], [place] | | | [place] | | | [phone] | + +--------+ +--------+ + +
--- OUTSIDE RECORDS SUMMARY | ~2019-10-27 | XMS | Encounter Summary ---
Demographics + + + | Address | [address] | | | [place] [address] | + + + | Home Phone | | + + + | Preferred Language | Unknown | + + + | Marital Status | Single | + + + | Yazidi Affiliation | 1009 | + + + | Race | Unknown | + + + | Ethnic Group | Unknown | + + + Author + + + | Author | [facility] | | | and [place] | + + + | Organization | [facility] | [...] Team Providers + +------+ + | Care Car Shunter Name | Role | Phone | + +------+ + | Naren Nina PA-C | PCP | | + +------+ + Encounter Details +--------+ + + + + | Date | Type | Department | Care Team | Description | +--------+ + + + + | 06/06/ | Hospital | [facility] | Conversion | Lumbar radiculopathy | | 2018 | Encounter | [facility] | Transaction, | | | | | [address] | Provider Unknown | | | | | [address] [place], [place] | [phone] | | | | | [address] | | | | | | [phone] | Jose Gonzalez DO | | | | | | [address] | | | | | | [address] [place], | | | | | | [place] [address] | | | | | | [phone] | | | | | | | [...] | | | | | [place] [address] | | | | | | [phone] | | | | | | | [...]
--- OUTSIDE RECORDS SUMMARY | ~2019-10-27 | XMS | Clinical Summary ---
Demographics + + + | Address | [address] | | | [place] [address] | + + + | Home Phone [...] + | Author | [facility] (Historical as of | | | 01-18-19) | + + + | Organization | [facility] [employer] [facility] (Historical as of | | | 01-18-19) [...] Team Providers + +------+ + | Care Pile Driving Superintendent Name | Role | Phone | + [...] | | | | | Comments) Used PHYSICIAN PRESIDENT | | | | | | and it lowered her | | | | | | BP And medication | | | | | | was stopped Used | | | | | | PHYSICIAN PRESIDENT and it lowered | | | | [...] | will have pt speak with the implant coordinator today to help | | get [...] MD | | | | | | /[id number] | | | | | | | [...] +------+-------+ + | MEDICAID | MEDICA | [id number] | | | [address] | | | ID | | | | [place], [place] | | | [place] | | | | [address] | + +--------+ +------+-------+ + + +--------+ [...] | lula | | | [phone] | [phone] | + +--------+ +--------+ + +
--- OUTSIDE RECORDS SUMMARY | ~2019-10-27 | XMS | Encounter Summary ---
Demographics + + + | Address | [address] | | | [place] [address] | + + + | Home Phone [...] | Author | [facility] | | | and [place] | + + + | Organization | [facility] | | | and [place] [...] Team Providers + +------+ + | Care Litigation Counsel Name | Role | Phone | + [...] Provider Unknown | | | | | [place], [place] | | | | | | [address] | (Fax) | | | | | [phone] | | | +--------+ + + + [...] | | | | | [place] [address] | | | | | | [phone] | | | | | | | [...] + + + + | FIBROSURE | [id number]: minimal | | EXTERNAL | | | [...] + + + + | Necroinflam | [id number]: significant | | EXTERNAL | | | [...] + + + | HCV-LOG 10 | [id number] (A) | 0 Log IU/ml | EXTERNAL [...]
--- OUTSIDE RECORDS SUMMARY | ~2019-10-27 | XMS | Encounter Summary ---
Demographics + + + | Address | [address] | | | [place] [address] | + + + | Home Phone [...] Author | [facility] | | | and [place] | + + + | Organization | [facility] | | | and [place] [...] Providers + +------+ + | Care Clinical Account Liaison Name | Role | Phone | [...] [address] | | | | | [place], [place] | [place] [address] | | | | | [address] | [phone] | | | | | [phone] | | | +--------+ + + + [...] | | | | | [place] [address] | | | | | | [phone] | | | | | | | | +--------+---------+ + + + documented as of this encounter Visit Diagnoses Not on filedocumented in this encounter"
--- OUTSIDE RECORDS SUMMARY | ~2019-10-27 | XMS | Encounter Summary ---
Demographics + + + | Address | [address] | | | [place] [address] | + + + | Home Phone [...] | Author | [facility] | | | and [place] | + + + | Organization | [facility] | | | and [...] Providers + +------+ + | Care Sales Designer Name | Role | Phone | + +------+ + | Hayden Acevedo MD | PCP | | + +------+ + Encounter Details +--------+ + + + + | Date | Type | Department | Care Team | Description | +--------+ + + + + | 01/22/ | Hospital | [facility] | Conversion | Thoracic or | | 2013 | Encounter | [facility] | Transaction, | lumbosacral neuritis | | | | CLINIC [address] | Provider Unknown | or radiculitis, | | | | [address] [place], [place] | | unspecified | | | | [address] | (Fax) | | | | | [phone] | | | +--------+ + + + [...] [address] | | | | | | [address] | | | | | | [place] [address] | | | | | | [phone] | | | | | | | [...] | | | Patient | performed at [facility];[address] | | LAB | | | | [address];[place], [place] | | | | | | [address] | | | | + + + [...] | | | | | performed at [facility] | | | | | | [address] [facility];[place], [place] | | | | | | [address] | | | | + + + [...] EXTERNAL | | | | performed at [facility], [address] | | LAB | | | | [address], | | | | | | [place] [address] | | | | + + + + + + | Red Blood | 3.99Comment: Testing | 3.70 - 5.10 | EXTERNAL | | | Cells | performed at [facility], [address] | M/uL | LAB | | | Counted | [address], | | | | | | [place] [address] | | | | + + + + + + | Hemoglobin | 12.0Comment: Testing | 11.3 - 15.5 | EXTERNAL | | | | performed at [facility], [address] | g/dL | LAB | | | | [address], | | | | | | [place] [address] | | | | + + + + + + | Hematocrit, | 36.2Comment: Testing | 34.0 - 46.0 % | EXTERNAL | | | POC | performed at [facility], [address] | | LAB | | | | [address], | | | | | | [place] [address] | | | | + + + + + + | MCV | 90.9Comment: Testing | 80.0 - 100.0 fl | EXTERNAL | | | | performed at [facility], [address] | | LAB | | | | [address], | | | | | | [place] [address] | | | | + + + + + + | MCH | 30.1Comment: Testing | 27.0 - 34.0 pg | EXTERNAL | | | | performed at [facility], [address] | | LAB | | | | [address], | | | | | | [place] [address] | | | | + + + + + + | MCHC | 33.1Comment: Testing | 32.0 - 35.5 | EXTERNAL | | | | performed at [facility], [address] | g/dL | LAB | | | | [address], | | | | | | [place] [address] | | | | + + + + + + | RDW-CV | 48.6Comment: Testing | 37 - 53 fl | EXTERNAL | | | | performed at [facility], [address] | | LAB | | | | [address], | | | | | | [place] [address] | | | | + + + + + + | Platelet | 210Comment: Testing | 150 - 400 K/uL | EXTERNAL | | | Count | performed at [facility], [address] | | LAB | | | Plasma | [address], | | | | | | [place] [address] | | | | + + + + + + | MPV | 8.0Comment: Testing | fl | EXTERNAL | | | | performed at [facility], [address] | | LAB | | | | [address], | | | | | | [place] [address] | | | | + + + + + + | Differentia | AUTOMATEDComment: | | EXTERNAL | | | l Type | Testing performed at | | LAB | | | | [facility], [address] | | | | | | [place] | | | | | | [address] | | | | + + + + + + | % Segmented | 35.5Comment: Testing | % | EXTERNAL | | | | performed at [facility], [address] | | LAB | | | Neutrophils | [address], | | | | | | [place] [address] | | | | + + + + + + | % | 47.9Comment: Testing | % | EXTERNAL | | | Lymphocytes | performed at [facility], [address] | | LAB | | | | [address], | | | | | | [place] [address] | | | | + + + + + + | % Monocytes | 8.8Comment: Testing | % | EXTERNAL | | | | performed at [facility], [address] | | LAB | | | | [address], | | | | | | [place] [address] | | | | + + + + + + | % | 7.0Comment: Testing | % | EXTERNAL | | | Eosinophils | performed at [facility], [address] | | LAB | | | | [address], | | | | | | [place] [address] | | | | + + + + + + | % Basophils | 0.8Comment: Testing | % | EXTERNAL | | | | performed at [facility], [address] | | LAB | | | | [address], | | | | | | [place] [address] | | | | + + + + + + | Absolute | 2.0Comment: Testing | 1.9 - 7.4 K/uL | EXTERNAL | | | Segmented | performed at [facility], [address] | | LAB | | | Neutrophils | [address], | | | | | | [place] [address] | | | | + + + + + + | Absolute | 2.7Comment: Testing | 1.0 - 3.9 K/uL | EXTERNAL | | | Lymphocytes | performed at [facility], [address] | | LAB | | | | [address], | | | | | | [place] [address] | | | | + + + + + + | Absolute | 0.5Comment: Testing | 0 - 0.8 K/uL | EXTERNAL | | | Monocytes | performed at [facility], [address] | | LAB | | | | [address], | | | | | | [place] [address] | | | | + + + + + + | Absolute | 0.4Comment: Testing | 0 - 0.5 K/uL | EXTERNAL | | | Eosinophils | performed at [facility], [address] | | LAB | | | | [address], | | | | | | [place] [address] | | | | + + + + + + | Absolute | 0.0Comment: Testing | 0 - 0.1 K/uL | EXTERNAL | | | Basophils | performed at [facility], [address] | | LAB | | | | [address], | | | | | | [place] [address] | | | | + + + [...] | | | | | [place] [address] | | | | + + + + + + | K | 4.2Comment: Testing | 3.5 - 4.9 | EXTERNAL | | | | performed at [facility], [address] | mmol/L | LAB | | | | [address], | | | | | | [place] [address] | | | | + + + + + + | Cl | 108Comment: Testing | 99 - 109 mmol/L | EXTERNAL | | | | performed at [facility], [address] | | LAB | | | | [address], | | | | | | [place] [address] | | | | + + + + + + | CO2 | 25Comment: Testing | 23 - 32 mmol/L | EXTERNAL | | | | performed at [facility], [address] | | LAB | | | | [address], | | | | | | [place] [address] | | | | + + + + + + | Anion Gap | 6Comment: Testing | 5 - 20 mmol/L | EXTERNAL | | | | performed at [facility], [address] | | LAB | | | | [address], | | | | | | [place] [address] | | | | + + + + + + | Glucose, | 113 (H)Comment: Testing | 65 - 99 mg/dL | EXTERNAL | | | Fasting | performed at [facility], [address] | | LAB | | | | [address], | | | | | | [place] [address] | | | | + + + + + + | BUN | 16Comment: Testing | 8 - 25 mg/dL | EXTERNAL | | | | performed at [facility], [address] | | LAB | | | | [address], | | | | | | [place] [address] | | | | + + + + + + | Creatinine | 0.76Comment: Testing | 0.50 - 1.00 | EXTERNAL | | | | performed at [facility], [address] | mg/dL | LAB | | | | [address], | | | | | | [place] [address] | | | | + + + + + + | BUN/Creatin | 21Comment: Testing | | EXTERNAL | | | ine Ratio | performed at [facility], [address] | | LAB | | | | [address], | | | | | | [place] [address] | | | | + + + + + + | Calcium | 9.7Comment: Testing | 8.5 - 10.2 | EXTERNAL | | | | performed at [facility], [address] | mg/dL | LAB | | | | [address] [facility], | | | | | | [place] [address] | | | | + + + [...] | | | | | | [address] [facility], | | | | | | [place] [address] | | | | + + + [...] EXTERNAL LAB | | Testing performed at [facility];[address] [place] [address];[place] [address] MRSA PCR | | | NEGATIVE Testing performed at | | | [facility];[address] [place] [address];[place] [address] | | + + + + +---------+ [...] + + | Historically converted procedure from [facility] | EXTERNAL LAB | + + [...]
--- OUTSIDE RECORDS SUMMARY | ~2019-10-27 | XMS | Encounter Summary ---
Demographics + + + | Address | [address] | | | [place] [address] | + + + | Home Phone [...] | Author | [facility] | | | and [place] | + + + | Organization | [facility] [...] Team Providers + +------+ + | Care Reverberatory Furnace Supervisor Name | Role | Phone | + +------+ + | Naren Nina PA-C | PCP | | + +------+ + Encounter Details +--------+ + + + + | Date | Type | Department | Care Team | Description | +--------+ + + + + | 03/20/ | Orders Only | [facility] | DyeMisha John, | | | 2013 | | ASSOCIATED | [address] | | | | | [facility] | [address], | | | | | [address] | [place] [address] | | | | | [address], | [phone] | | | | | [place] [address] | | | | | | [phone] | | | +--------+ + + + [...] | | | | | [place] [address] | | | | | | [phone] | | | | | | | [...]
--- OUTSIDE RECORDS SUMMARY | ~2019-10-27 | XMS | Encounter Summary ---
Demographics + + + | Address | [address] | | | [place] [address] | + + + | Home Phone [...] | Author | [facility] | | | and [place] | + + + | Organization | [facility] | | | and [...] Team Providers + +------+ + | Care Toll Patrolman Name | Role | Phone | + +------+ + | Hayden Acevedo MD | PCP | | + +------+ + Encounter Details +--------+ + + + + | Date | Type | Department | Care Team | Description | +--------+ + + + + | 08/19/ | Hospital | [facility] | Conversion | LBP radiating to | | 2013 | Encounter | [facility] | Transaction, | left leg | | | | [address] | Provider Unknown | | | | | [place], [place] | | | | | | [address] | (Fax) | | | | | [phone] | | | +--------+ + + + [...] [address] | | | | | | [address] | | | | | | [place] [address] | | | | | | [phone] | | | | | | | [...]
--- OUTSIDE RECORDS SUMMARY | ~2019-10-27 | XMS | Encounter Summary ---
Demographics + + + | Address | [address] | | | [place] [address] | + + + | Home Phone [...] | [facility] | | | and [place] | + + + | Organization | [facility] | | | and [place] | [...] Team Providers + +------+ + | Care Mail Distribution Scheme Examiner Name | Role | Phone | [...] Unknown | | | | | [place], [place] | [phone] | | | | | [address] | | | | | | [phone] | | | +--------+ + + + [...] | | | | | [place] [address] | | | | | | [phone] | | | | | | | [...]
[~2019-10-27 15:52] MED LIST changes: +CLONIDINE HCL0.1 MG PO; +ZYPREXA10 MG PO
--- OUTSIDE RECORDS SUMMARY | 2019-10-27 15:56 | XMS ---
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 Care History Medical/Surgical 09/23/2018 [facility] \T\middot;\T\nbsp; PATIENT IS A [employer] MEMBER. \T\middot;\T\nbsp; PLEASE REFER PATIENT TO [facility] FOR NON EMERGENT MEDICAL NEEDS. \T\middot;\ T\nbsp; [facility] CAN SEE PATIENTS SAME DAY FOR APTS IF PATIENT CALLS FIRST THING IN THE MORNING. E.D. VISIT COUNT (12 MO.) 3 [facility] TOTAL 3 NOTE: Visits indicate total known visits. ED/UCC VISIT TRACKING (12 MO.) 10/27/2019 15:53 [facility] [place] TYPE: Emergency COMPLAINT: - POSS INFECTION, SORES ON HANDS 08/22/2019 18:07 [facility] [place] TYPE: Emergency COMPLAINT: - FLANK PAIN, URINE PROBLEM, FLU SX DIAGNOSES: - Nicotine dependence, unspecified, uncomplicated - Hypothyroidism, unspecified - Essential (primary) hypertension - Cough - Chronic obstructive pulmonary disease with (acute) exacerbati - Other jail (current) drug therapy - Hyperlipidemia, unspecified 02/10/2019 13:[address] [facility] [place] TYPE: Emergency COMPLAINT: - SKIN IRRITATIONS, MSED TO CLINIC DIAGNOSES: - Disorder of the skin and subcutaneous tissue, unspecified INPATIENT VISIT TRACKING (12 MO.) No inpatient visits to display in this time frame [email or web address]
[2019-10-27] MEDS ORDERED: BACITRACIN3.5 GM OD (17:11)
== END 2019-10-27 17:22 | disposition home or self-care (01) ==
LOC: ED 15:52
DX: L98.9 Disorder of the skin and subcutaneous tissue, unspecified (principal); J44.9 Chronic obstructive pulmonary disease, unspecified; I10 Essential (primary) hypertension; E03.9 Hypothyroidism, unspecified; E78.5 Hyperlipidemia, unspecified; F17.200 Nicotine dependence, unspecified, uncomplicated; Z79.899 Other long term (current) drug therapy
CPT/HCPCS: 99283

== ENCOUNTER 2019-11-09 21:37 | Emergency (ER) | payer OTHER ==
[~2019-11-09] VITALS: Ht 170.2 cm; Wt 111.1 kg
--- OUTSIDE RECORDS SUMMARY | ~2019-11-09 | XMS | Encounter Summary ---
Demographics + + + | Address | [address] | | | [place] [address] | + + + | Home Phone | | + + + | Preferred Language | Unknown | + + + | Marital Status | Single | + + + | Faith Affiliation | [id number] | + + + | Race | Unknown | + + + | Ethnic Group | Unknown | + + + Author + + + | Author | [facility] | | | and [place] | + + + | Organization | [facility] | | | and [place] | [...] Team Providers + +------+ + | Care Customer Operations Specialist Name | Role | Phone | + +------+ + | Hayden Acevedo MD | PCP | | + +------+ + Encounter Details +--------+ + + + + | Date | Type | Department | Care Team | Description | +--------+ + + + + | 10/08/ | Hospital | [facility] | Conversion | Abdominal pain | | 2014 | Encounter | [facility] | Transaction, | | | | | [address] | Provider Unknown | | | | | [address] | [phone] | | | | | [place], [place] | | | | | | [address] | | | | | | [phone] | | | +--------+ + + + + Social History + +-------+ +--------+------+ | Tobacco Use | Types | Packs/Day | Years | Date | | | | | Used | | + +-------+ +--------+------+ | Never Assessed | | | | | + +-------+ +--------+------+ + + + | Sex Assigned at [...] + + documented as of this encounter Medications at Time of Discharge + + + +---------+ + + | Medication | Sig | Dispensed | Refills | Start | End Date | | | | | | Date | | + + + +---------+ + + | FLUoxetine | Take 1 capsule by | | 0 | 06/25/19 | | | (PROZAC) 40 MG | mouth daily. | | | 14 | | | capsule | | | | | | + + + +---------+ + + documented as of this encounter Plan of Treatment +--------+---------+ + + + | Date | Type | Specialty | Care Team | Description | +--------+---------+ + + + | 11/09/ | Office | Neurosurgery | Jose Gonzalez DO | | | 2020 | Visit | | [address] | | | | | | [address] | | | | | | [place] [address] | | | | | | [phone] | | | | | | | | +--------+---------+ + + + documented as of this encounter Procedures + +--------+ + + + | Procedure Name | Priori | Date/Time | Associated Diagnosis | Comments | | | ty | | | | + +--------+ + + + | US ABDOMEN COMPLETE | Routin | 10/08/2013 | | Results for this | | | e | 10:38 AM | | procedure are in the | | | | PDT | | results section. | + +--------+ + + + documented in this encounter Results US Abdomen Complete (10/08/2013 10:38 AM PDT) + + | Specimen | + + | | + + + + + | Impressions | Performed At | + + + | 1. Mild splenomegaly. 2. Unremarkable liver. 3. | | | Cholecystectomy. 4. No biliary tract dilatation. 5. Gas | | | obscures aorta, pancreas. | | + + + + + + | Narrative | Performed At | + + + | HISTORY: Hepatitis. Cholecystectomy. COMPARISON: None. | | | TECHNIQUE: 4 MHz curvilinear sonographic grayscale, color flow | | | evaluation of the abdomen. FINDINGS: Technical limitation due to | | | patient body habitus. Mild atheromatous change of the abdominal aorta. | | | Mid and distal aorta and bifurcation obscured due to gas. Body of the | | | pancreas is unremarkable. Head and tail are obscures due to gas. | | | Liver unremarkable. Color flow and spectral Doppler evaluation of | | | the main portal and right hepatic veins demonstrate appropriate flow | | | patterns. CBD 4.6 mm. Gallbladder has been removed. No sonographic | | | Flores's sign. Right kidney 10.7 x 5.2 x 5.1 cm, left kidney 10.2 | | | x 5.2 x 5.9 cm. Kidneys are grossly unremarkable. Detail is limited | | | due to patient body habitus. Spleen measures 12.8 x 12.5 x 5.2 cm, | | | slightly enlarged. IVC obscured due to gas. | | + + + + + | Procedure Note | + + | Dhiraj, Rad Conversion - 01/18/2019 1:22 AM PDT HISTORY:Hepatitis. Cholecystectomy. | | COMPARISON:None. TECHNIQUE:4 MHz curvilinear sonographic grayscale, color flow | | evaluation of the abdomen. FINDINGS:Technical limitation due to patient body habitus. | | Mild atheromatous change of the abdominal aorta. Mid and distal aorta and bifurcation | | obscured due to gas. Body of the pancreas is unremarkable. Head and tail are obscures | | due to gas. Liver unremarkable. Color flow and spectral Doppler evaluation of the main | | portal and right hepatic veins demonstrate appropriate flow patterns. CBD 4.6 mm. | | Gallbladder has been removed. No sonographic Flores's sign. Right kidney 10.7 x 5.2 x | | 5.1 cm, left kidney 10.2 x 5.2 x 5.9 cm. Kidneys are grossly unremarkable. Detail is | | limited due to patient body habitus. Spleen measures 12.8 x 12.5 x 5.2 cm, slightly | | enlarged. IVC obscured due to gas. IMPRESSION: 1. Mild splenomegaly.2. Unremarkable | | liver.3. Cholecystectomy.4. No biliary tract dilatation.5. Gas obscures aorta, | | pancreas. | | | |CBD 4.6 mm. Gallbladder has been removed. No sonographic Flores's sign. | | | |Right kidney 10.7 x 5.2 x 5.1 cm, left kidney 10.2 x 5.2 x 5.9 cm. Kidneys are grossly unre markable. Detail is limited due to patient body habitus. Spleen measures 12.8 x 12.5 x 5.2 c m, slightly enlarged. IVC obscured due to gas. | | | |IMPRESSION: | |1. Mild splenomegaly. | |2. Unremarkable liver. | |3. Cholecystectomy. | |4. No biliary tract dilatation. | |5. Gas obscures aorta, pancreas. | | | | | + + documented in this encounter Visit Diagnoses + + | Diagnosis | + + | Abdominal pain Abdominal pain, unspecified site | + + documented in this encounter"
--- OUTSIDE RECORDS SUMMARY | ~2019-11-09 | XMS | Encounter Summary ---
Demographics + + + | Address | [address] | | | [place] [address] | + + + | Home Phone | | + + + | Preferred Language | Unknown | + + + | Marital Status | Single | + + + | Uatsdin Affiliation | 1009 | + + + | Race | Unknown | + + + | Ethnic Group | Unknown | + + + Author + + + | Author | [facility] | | | and [place] | + + + | Organization | [facility] | | | and [place] [...] Team Providers + +------+ + | Care Director Of Laboratory Operations Name | Role | Phone | + [...] Provider Unknown | | | | | [place], [place] | | | | | | [address] | (Fax) | | | | | [phone] | | | +--------+ + + + [...] | | | | | [place] [address] | | | | | | [phone] | | | | | | | [...]
--- OUTSIDE RECORDS SUMMARY | ~2019-11-09 | XMS | Encounter Summary ---
Demographics + + + | Address | [address] | | | [place] [address] | + + + | Home Phone | | + + + | Preferred Language | Unknown | + + + | Marital Status | Single | + + + | Presybeterian Affiliation | 1009 | + + + | Race | Unknown | + + + | Ethnic Group | Unknown | + + + Author + + + | Author | [facility] | | | and [place] | + + + | Organization | [facility] | | | and [place] | [...] Team Providers + +------+ + | Care Sales And Marketing Intern Name | Role | Phone | + +------+ + | Hayden Acevedo MD | PCP | | + +------+ + Encounter Details +--------+ + + + + | Date | Type | Department | Care Team | Description | +--------+ + + + + | 12/11/ | Hospital | [facility] | Conversion | | | 2014 | Encounter | [facility] | Transaction, | | | | | CLINIC [address] | Provider Unknown | | | | | [place], [place] | [phone] | | | | | [phone] | (Fax) | | | | | [phone] | | | +--------+ + + + [...] | | | | | [place] [address] | | | | | | [phone] | | | | | | | | +--------+---------+ + + + documented as of this encounter Procedures + +--------+ + + + | Procedure Name | Priori | Date/Time | Associated Diagnosis | Comments | | | ty | | | | + +--------+ + + + | XR CHEST 2 VIEWS | Routin | 12/11/2013 | | Results for this | | | e | 5:40 PM | | procedure are in the | | | | PDT | | results section. | + +--------+ + + + | EXTERNAL LAB: CBC | Routin | 12/11/2013 | | Results for this | | | e | 4:59 PM | | procedure are in the | | | | PDT | | results section. | + +--------+ + + + | PLATELET FUNCTION | Routin | 12/11/2013 | | Results for this | | TEST | e | 4:59 PM | | procedure are in the | | | | PDT | | results section. | + +--------+ + + + | TYPE AND SCREEN | Routin | 12/11/2013 | | Results for this | | | e | 4:59 PM | | procedure are in the | | | | PDT | | results section. | + +--------+ + + + | COMPREHENSIVE | Routin | 12/11/2013 | | Results for this | | METABOLIC PANEL | e | 4:59 PM | | procedure are in the | | | | PDT | | results section. | + +--------+ + + + documented in this encounter Results XR Chest 2 Vws (12/11/2013 5:40 PM PDT) + + | Specimen | + + | | + + + + + | Impressions | Performed At | + + + | 1. No acute disease. | | + + + + + + | Narrative | Performed At | + + + | [facility] XR CHEST 2 VIEW FRONTAL AND LATERAL 12/11/2013 | | | 5:40 PM HISTORY: Shortness of breath. TECHNIQUE: Frontal and | | | lateral views of the chest. COMPARISON: Chest radiographs, the | | | most recent 10/10/13. FINDINGS: The lungs are clear and well | | | inflated. The cardiac silhouette and pulmonary vasculature are normal. | | | No pneumothorax or pleural effusion is found. No bony abnormality is | | | found. | | + + + + + | Procedure Note | + + | Nikita Hearn - 01/18/2019 1:22 AM PDT [facility] ESPITIAXR CHEST 2 VIEW FRONTAL | | AND LATERAL12/11/2013 5:40 PM HISTORY:Shortness of breath. TECHNIQUE:Frontal and lateral | | views of the chest. COMPARISON:Chest radiographs, the most recent 10/10/13. FINDINGS:The | | lungs are clear and well inflated. The cardiac silhouette and pulmonary vasculature are | | normal. No pneumothorax or pleural effusion is found. No bony abnormality is found. | | IMPRESSION: 1. No acute disease. Electronically signed by Preston Domínguez MD on | | 12/11/2013 6:50 PM | |TECHNIQUE: | |Frontal and lateral views of the chest. | | | |COMPARISON: | |Chest radiographs, the most recent 10/10/13. | | | |FINDINGS: | |The lungs are clear and well inflated. The cardiac silhouette and pulmonary vasculature are normal. No pneumothorax or pleural effusion is found. No bony abnormality is found. | | | |IMPRESSION: | |1. No acute disease. | | | | | + + Type and Screen (12/11/2013 4:59 PM PDT) + + + + + + | Component | Value | Ref Range | Performed | Pathologist | | | | | At | Signature | + + + + + + | ABO Rh | B NEGATIVE | | EXTERNAL | | | | | | LAB | | + + + + + + | ABO Rh | Testing performed at | | EXTERNAL | | | | [facility] | | LAB | | | | [address];[place] [address] | | | | + + + + + + | Antibody | NEGATIVE | | EXTERNAL | | | Screen | | | LAB | | + + + + + + | Antibody | Testing performed at | | EXTERNAL | | | Screen | [facility] | | LAB | | | | [address]vd;[place] [address] | | | | + + + + + + + + | Specimen | + + | Blood specimen | | (specimen) | + + + +---------+ + + | Performing | Address | City/State/Zipcode | Phone Number | | Organization | | | | + +---------+ + + | EXTERNAL LAB | | | | + +---------+ + + PLATELET FUNCTION TEST (12/11/2013 4:59 PM PDT) + + + + + + | Component | Value | Ref Range | Performed | Pathologist | | | | | At | Signature | + + + + + + | Collagen/Ep | 93Comment: RESULTS 60 | 60 - 175 | EXTERNAL | | | inephrine | TO 175 SECONDS INDICATES | seconds | LAB | | | Platelet | NORMAL PLATELET | | | | | Function | FUNCTION. RESULTS >175 | | | | | | SECONDS INDICATES | | | | | | ABNORMAL PLATELET | | | | | | FUNCTION. SPECIMEN WILL | | | | | | BE TESTED WITH ADP, | | | | | | RESULTS TO FOLLOW. | | | | | | Occlusion times may be | | | | | | prolonged if patient has | | | | | | a Hematocrit <35% and | | | | | | or a platelet count | | | | | | <150,000 uL.Testing | | | | | | performed at [facility], [address] | | | | | | [facility], | | | | | | [place] [address] | | | | + + + + + + + + | Specimen | + + | Blood specimen | | (specimen) | + + + +---------+ + + | Performing | Address | City/State/Zipcode | Phone Number | | Organization | | | | + +---------+ + + | EXTERNAL LAB | | | | + +---------+ + + External Lab: CBC (12/11/2013 4:59 PM PDT) + + + + + + | Component | Value | Ref Range | Performed | Pathologist | | | | | At | Signature | + + + + + + | WBC | 6.8Comment: Testing | 3.8 - 11.0 K/uL | EXTERNAL | | | | performed at [facility], [address] | | LAB | | | | [address], | | | | | | [place] [address] | | | | + + + + + + | Red Blood | 4.38Comment: Testing | 3.70 - 5.10 | EXTERNAL | | | Cells | performed at [facility], [address] | M/uL | LAB | | | Counted | [address], | | | | | | [place] [address] | | | | + + + + + + | Hemoglobin | 13.1Comment: Testing | 11.3 - 15.5 | EXTERNAL | | | | performed at [facility], [address] | g/dL | LAB | | | | [address], | | | | | | [place] [address] | | | | + + + + + + | Hematocrit, | 40.3Comment: Testing | 34.0 - 46.0 % | EXTERNAL | | | POC | performed at [facility], [address] | | LAB | | | | [address], | | | | | | [place] [address] | | | | + + + + + + | MCV | 92.1Comment: Testing | 80.0 - 100.0 fl | EXTERNAL | | | | performed at [facility], [address] | | LAB | | | | [address], | | | | | | [place] [address] | | | | + + + + + + | MCH | 29.9Comment: Testing | 27.0 - 34.0 pg | EXTERNAL | | | | performed at [facility], [address] | | LAB | | | | [address], | | | | | | [place] [address] | | | | + + + + + + | MCHC | 32.5Comment: Testing | 32.0 - 35.5 | EXTERNAL | | | | performed at [facility], [address] | g/dL | LAB | | | | [address], | | | | | | [place] [address] | | | | + + + + + + | RDW-CV | 48.1Comment: Testing | 37 - 53 fl | EXTERNAL | | | | performed at [facility], [address] | | LAB | | | | [address], | | | | | | [place] [address] | | | | + + + + + + | Platelet | 271Comment: Testing | 150 - 400 K/uL | EXTERNAL | | | Count | performed at [facility], [address] | | LAB | | | Plasma | [address], | | | | | | [place] [address] | | | | + + + + + + | MPV | 8.8Comment: Testing | fl | EXTERNAL | | | | performed at [facility], [address] | | LAB | | | | [address], | | | | | | [place] [address] | | | | + + + + + + | Differentia | AUTOMATEDComment: | | EXTERNAL | | | l Type | Testing performed at | | LAB | | | | [facility], [address] | | | | | | [place] | | | | | | [address] | | | | + + + + + + | % Segmented | 52.9Comment: Testing | % | EXTERNAL | | | | performed at [facility], [address] | | LAB | | | Neutrophils | [address], | | | | | | [place] [address] | | | | + + + + + + | % | 33.3Comment: Testing | % | EXTERNAL | | | Lymphocytes | performed at [facility], [address] | | LAB | | | | [address], | | | | | | [place] [address] | | | | + + + + + + | % Monocytes | 7.9Comment: Testing | % | EXTERNAL | | | | performed at [facility], [address] | | LAB | | | | [address], | | | | | | [place] [address] | | | | + + + + + + | % | 5.1Comment: Testing | % | EXTERNAL | | | Eosinophils | performed at [facility], [address] | | LAB | | | | [address], | | | | | | [place] [address] | | | | + + + + + + | % Basophils | 0.8Comment: Testing | % | EXTERNAL | | | | performed at [facility], [address] | | LAB | | | | [address], | | | | | | [place] [address] | | | | + + + + + + | Absolute | 3.6Comment: Testing | 1.9 - 7.4 K/uL | EXTERNAL | | | Segmented | performed at [facility], [address] | | LAB | | | Neutrophils | [address], | | | | | | [place] [address] | | | | + + + + + + | Absolute | 2.3Comment: Testing | 1.0 - 3.9 K/uL | EXTERNAL | | | Lymphocytes | performed at [facility], [address] | | LAB | | | | [address], | | | | | | [place] [address] | | | | + + + + + + | Absolute | 0.5Comment: Testing | 0 - 0.8 K/uL | EXTERNAL | | | Monocytes | performed at [facility], [address] | | LAB | | | | [address], | | | | | | [place] [address] | | | | + + + + + + | Absolute | 0.3Comment: Testing | 0 - 0.5 K/uL | EXTERNAL | | | Eosinophils | performed at [facility], [address] | | LAB | | | | [address], | | | | | | [place] [address] | | | | + + + + + + | Absolute | 0.1Comment: Testing | 0 - 0.1 K/uL | EXTERNAL | | | Basophils | performed at [facility], [address] | | LAB | | | | [address], | | | | | | [place] [address] | | | | + + + + + + + + | Specimen | + + | Blood specimen | | (specimen) | + + + +---------+ + + | Performing | Address | City/State/Zipcode | Phone Number | | Organization | | | | + +---------+ + + | EXTERNAL LAB | | | | + +---------+ + + Comprehensive Metabolic Panel (12/11/2013 4:59 PM PDT) + + + + + + | Component | Value | Ref Range | Performed | Pathologist | | | | | At | Signature | + + + + + + | Na | 137Comment: Testing | 135 - 143 | EXTERNAL | | | | performed at [facility], [address] | mmol/L | LAB | | | | [address], | | | | | | [place] [address] | | | | + + + + + + | K | 3.5Comment: Testing | 3.5 - 4.9 | EXTERNAL | | | | performed at [facility], [address] | mmol/L | LAB | | | | [address], | | | | | | [place] [address] | | | | + + + + + + | Cl | 108Comment: Testing | 99 - 109 mmol/L | EXTERNAL | | | | performed at [facility], [address] | | LAB | | | | [address], | | | | | | [place] [address] | | | | + + + + + + | CO2 | 27Comment: Testing | 23 - 32 mmol/L | EXTERNAL | | | | performed at [facility], [address] | | LAB | | | | [address], | | | | | | [place] [address] | | | | + + + + + + | Anion Gap | 6Comment: Testing | 5 - 20 mmol/L | EXTERNAL | | | | performed at [facility], [address] | | LAB | | | | [address], | | | | | | [place] [address] | | | | + + + + + + | Glucose, | 104 (H)Comment: Testing | 65 - 99 mg/dL | EXTERNAL | | | Fasting | performed at [facility], [address] | | LAB | | | | [address], | | | | | | [place] [address] | | | | + + + + + + | BUN | 21Comment: Testing | 8 - 25 mg/dL | EXTERNAL | | | | performed at [facility], [address] | | LAB | | | | [address], | | | | | | [place] [address] | | | | + + + + + + | Creatinine | 0.84Comment: Testing | 0.50 - 1.00 | EXTERNAL | | | | performed at [facility], [address] | mg/dL | LAB | | | | [address], | | | | | | [place] [address] | | | | + + + + + + | BUN/Creatin | 25Comment: Testing | | EXTERNAL | | | ine Ratio | performed at [facility], [address] | | LAB | | | | [address], | | | | | | [place] [address] | | | | + + + + + + | Calcium | 10.1Comment: Testing | 8.5 - 10.2 | EXTERNAL | | | | performed at [facility], [address] | mg/dL | LAB | | | | [address], | | | | | | [place] [address] | | | | + + + + + + | Protein, | 8.2Comment: Testing | 6.3 - 8.2 g/dL | EXTERNAL | | | Total | performed at [facility], [address] | | LAB | | | | [address], | | | | | | [place] [address] | | | | + + + + + + | Albumin | 3.8Comment: Testing | 3.6 - 5.0 g/dL | EXTERNAL | | | | performed at [facility], [address] | | LAB | | | | [address], | | | | | | [place] [address] | | | | + + + + + + | Globulin | 4.4Comment: Testing | 1.3 - 4.9 g/dL | EXTERNAL | | | | performed at [facility], [address] | | LAB | | | | [address], | | | | | | [place] [address] | | | | + + + + + + | A/G Ratio | 0.9 (L)Comment: Testing | 1.0 - 2.4 | EXTERNAL | | | | performed at [facility], [address] | | LAB | | | | [address], | | | | | | [place] [address] | | | | + + + + + + | Bilirubin | 0.2Comment: Testing | 0.1 - 1.5 mg/dL | EXTERNAL | | | Total | performed at [facility], [address] | | LAB | | | | [address], | | | | | | [place] [address] | | | | + + + + + + | ALP, | 94Comment: Testing | 35 - 115 U/L | EXTERNAL | | | External | performed at [facility], [address] | | LAB | | | | [address], | | | | | | [place] [address] | | | | + + + + + + | AST | 126 (H)Comment: Testing | 10 - 45 U/L | EXTERNAL | | | | performed at [facility], [address] | | LAB | | | | [address], | | | | | | [place] [address] | | | | + + + + + + | ALT | 164 (H)Comment: Testing | 10 - 65 U/L | EXTERNAL | | | | performed at [facility], [address] | | LAB | | | | [address], | | | | | | [place] [address] | | | | + + + + + + | Estimated | >60Comment: GFR <60: | mL/min/1.73m2 | EXTERNAL | | | GFR | CHRONIC KIDNEY DISEASE, | | LAB | | | | IF FOUND OVER A 3 MONTH | | | | | | PERIOD.GFR <15: KIDNEY | | | | | | FAILURE.FOR | | | | | | AMERICANS, MULTIPLY THE | | | | | | CALCULATED GFR BY | | | | | | 1.210.Testing performed | | | | | | at [facility], [address] | | | | | | [address], | | | | | | [place] [address] | | | | + + + [...]
--- OUTSIDE RECORDS SUMMARY | ~2019-11-09 | XMS | Encounter Summary ---
Demographics + + + | Address | [address] | | | [place] [address] | + + + | Home Phone | | + + + | Preferred Language | Unknown | + + + | Marital Status | Single | + + + | Baptist Affiliation | 1009 | + + + | Race | Unknown | + + + | Ethnic Group | Unknown | + + + Author + + + | Author | [facility] | | | and [place] | + + + | Organization | [facility] | | | and [place] [...] Team Providers + +------+ + | Care Foreign Student Adviser Teacher Name | Role | Phone | + +------+ + | Naren Nina PA-C | PCP | | + +------+ + Reason for Visit + + + | Reason | Comments | + + + | Arm Pain | | + + + Encounter Details +--------+ + + + + | Date | Type | Department | Care Team | Description | +--------+ + + + + | 02/15/ | Telephone | [facility] | Henri Stewart, | Arm Pain | | 2016 | | PHYSIATRY [address] | MD [address] | | | | | [address] | [place], [place] | | | | | [place], [place] | [address] | | | | | [address] | | | | | | [phone] | | | +--------+ + + + [...] | 2020 | Visit | | [address] | [address] | | | | | | [place] [address] | | | | | | [phone] | | | | | | | | +--------+---------+ + + + documented as of this encounter Visit Diagnoses Not on pending sale to novant healthdocumented in this encounter"
--- OUTSIDE RECORDS SUMMARY | ~2019-11-09 | XMS | Encounter Summary ---
Demographics + + + | Address | [address] | | | [place] [address] | + + + | Home Phone | | + + + | Preferred Language | Unknown | + + + | Marital Status | Single | + + + | Islam Affiliation | 1009 | + + + | Race | Unknown | + + + | Ethnic Group | Unknown | + + + Author + + + | Author | [facility] | | | and [place] | + + + | Organization | [facility] | | | and [...] Team Providers + +------+ + | Care Table Games Floor Supervisor Name | Role | Phone | + +------+ + | Naren Nina PA-C | PCP | | + +------+ + Encounter Details +--------+ + + + + | Date | Type | Department | Care Team | Description | +--------+ + + + + | 02/15/ | Orders Only | [facility] | Conversion | | | 2017 | | INFECTIOUS DISEASE | Transaction, | | | | | [address] | Provider Unknown | | | | | [place], [place] | | | | | | [address] | (Fax) | | | | | [phone] | | | +--------+ + + + [...] | | | | | [place] [address] | | | | | | [phone] | | | | | | | | +--------+---------+ + + + documented as of this encounter Procedures + +--------+ + + + | Procedure Name | Priori | Date/Time | Associated Diagnosis | Comments | | | ty | | | | + +--------+ + + + | HEPATITIS C | Routin | 02/15/2017 | | Results for this | | RNA,QUANTITATIVE,PCR | e | 12:00 AM | | procedure are in the | | | | PDT | | results section. | + +--------+ + + + | HEPATIC FUNCTION | Routin | 02/15/2017 | | Results for this | | PANEL | e | 12:00 AM | | procedure are in the | | | | PDT | | results section. | + +--------+ + + + documented in this encounter Results Hepatitis C RNA, quantitative, PCR (02/15/2017 12:00 AM PDT) + + + + + + | Component | Value | Ref Range | Performed | Pathologist | | | | | At | Signature | + + + + + + | HCV-LOG 10 | Comment: Not Detected | Log IU/ml | EXTERNAL | | | | | | LAB | | + + + + + + | HCV | Comment: Not Detected | IU/ml | EXTERNAL | | | [...] + +---------+ + + Hepatic Function Panel (02/15/2017 12:00 AM PDT) + + + + + + | Component | Value | Ref Range | Performed | Pathologist | | | | | At | Signature | + + + + + + | Protein, | 7.4 | 6.2 - 8.2 g/dL | EXTERNAL | | | Total | | | LAB | | + + + + + + | Albumin | 4.0 | 3.5 - 5.2 | EXTERNAL | | | | | | LAB | | + + + + + + | Bilirubin | 0.2 | 0.1 - 1.5 mg/dL | EXTERNAL | | | Total | | | LAB | | + + + + + + | Bilirubin | Comment: <0.2 | 0.0 - 0.3 mg/dL | EXTERNAL | | | Direct | | | LAB | | + + + + + + | ALP, | 120 (A) | 35 - 104 | EXTERNAL | | | External | | | LAB | | + + + + + + | AST | 48 (A) | 0 - 32 U/L | EXTERNAL | | | | | | LAB | | + + + + + + | ALT | 58 (A) | 0 - 33 U/L | EXTERNAL | | | | | | LAB | | + + + + + + | A/G Ratio | | | EXTERNAL | | | | | | LAB | | + + + + + + | Globulin, | | [...]
--- OUTSIDE RECORDS SUMMARY | ~2019-11-09 | XMS | Encounter Summary ---
Demographics + + + | Address | [address] | | | [place] [address] | + + + | Home Phone | | + + + | Preferred Language | Unknown | + + + | Marital Status | Single | + + + | Faith Affiliation | 1009 | + + + | Race | Unknown | + + + | Ethnic Group | Unknown | + + + Author + + + | Author | [facility] | | | and [place] | + + + | Organization | [facility] | | | and [place] [...] Team Providers + +------+ + | Care Clinical Nurse Reviewer Name | Role | Phone | + +------+ + | Naren Nina PA-C | PCP | | + +------+ + Encounter Details +--------+ + + + + | Date | Type | Department | Care Team | Description | +--------+ + + + + | 01/29/ | Orders Only | [facility] | Conversion | | | 2014 | | INFECTIOUS DISEASE | Transaction, | | | | | [address] | Provider Unknown | | | | | [place], [place] | | | | | | [address] | (Fax) | | | | | [phone] | | | +--------+ + + + [...] | 11/09/ | Office | Neurosurgery | [facility] | | | 2019 | Visit | | [address] | | | | | | [place] [address] | | | | | | [phone] | | | | | | | | +--------+---------+ + + + documented as of this encounter Procedures + +--------+ + + + | Procedure Name | Priori | Date/Time | Associated Diagnosis | Comments | | | ty | | | | + +--------+ + + + | EXTERNAL LAB: CBC | Routin | 01/29/2015 | | Results for this | | | e | 12:00 AM | | procedure are in the | | | | PDT | | results section. | + +--------+ + + + | HEPATITIS C, | Routin | 01/29/2015 | | Results for this | | FIBROSURE PANEL | e | 12:00 AM | | procedure are in the | | | | PDT | | results section. | + +--------+ + + + | HEPATITIS C | Routin | 01/29/2015 | | Results for this | | RNA,QUANTITATIVE,PCR | e | 12:00 AM | | procedure are in the | | | | PDT | | results section. | + +--------+ + + + | COMPREHENSIVE | Routin | 01/29/2015 | | Results for this | | METABOLIC PANEL | e | 12:00 AM | | procedure are in the | | | | PDT | | results section. | + +--------+ + + + documented in this encounter Results Hepatitis C, Fibrosure Panel (01/29/2015 12:00 AM PDT) + + + + + + | Component | Value | Ref Range | Performed | Pathologist | | | | | At | Signature | + + + + + + | HCV | 0.35 | 0.00 - 1.00 | EXTERNAL | | | FibroSURE | | | LAB | | | Results | | | | | + + + + + + | FIBROSURE | [id number]: minimal | | EXTERNAL | | | STAGE | fibrosis | | LAB | | + + + + + + | Necroinflam | 0.57 | 0.00 - 1.00 | EXTERNAL | | | mat | | | LAB | | | Activity | | | | | | Score | | | | | + + + + + + | Necroinflam | [id number]: significant | | EXTERNAL | | | mat | activity | | LAB | | | Activity | | | | | | Grade | | | | | + + + + + + | Alpha | 347 (A) | 106 - 279 | EXTERNAL | | | 2-Macroglob | | | LAB | | | ulgwen, Qn | | | | | + + + + + + | Haptoglobin | 138 | 43 - 212 | EXTERNAL | | | | | | LAB | | + + + + + + | Apolipoprot | 149 | 101 - 198 | EXTERNAL | | | ein A-1 | | | LAB | | + + + + + + | Bilirubin, | 0.2 | 0.2 - 1.2 mg/dL | EXTERNAL | | | Total | | | LAB | | + + + + + + | Gamma | 93 (A) | 3 - 70 | EXTERNAL | | | Glutamyl | | | LAB | | | Transferase | | | | | + + + + + + | ALT (SGPT) | 96 (A) | 6 - 29 | EXTERNAL | | | P5P | | | LAB | | + + + + + + + + | Specimen | + + | | + + + +---------+ + + | Performing | Address | City/State/Zipcode | Phone Number | | Organization | | | | + +---------+ + + | EXTERNAL LAB | | | | + +---------+ + + Hepatitis C RNA, quantitative, PCR (01/29/2015 12:00 AM PDT) + + + + + + | Component | Value | Ref Range | Performed | Pathologist | | | | | At | Signature | + + + + + + | HCV-LOG 10 | [id number] (A) | 0 Log IU/ml | EXTERNAL | | | | | | LAB | | + + + + + + | HCV | 7.17 (A) | 0 IU/ml | EXTERNAL | | | Quantitativ [...] + +---------+ + + External Lab: CBC (01/29/2015 12:00 AM PDT) + + + + + + | Component | Value | Ref Range | Performed | Pathologist | | | | | At | Signature | + + + + + + | WBC | 9.1 | 10 | EXTERNAL | | | | | | LAB | | + + + + + + | Red Blood | 4.18 | 10 | EXTERNAL | | | Cells | | | LAB | | | Counted | | | | | + + + + + + | Hemoglobin | 12.3 | g/dL | EXTERNAL | | | | | | LAB | | + + + + + + | Hematocrit, | 37.9 | % | EXTERNAL | | | POC | | | LAB | | + + + + + + | MCV | 90.7 | fL | EXTERNAL | | | | | | LAB | | + + + + + + | MCH | 29 | pg | EXTERNAL | | | | | | LAB | | + + + + + + | MCHC | 32 | g/dL | EXTERNAL | | | | | | LAB | | + + + + + + | Platelet | 346 | K/ L | EXTERNAL | | | Count | | | LAB | | | Plasma | | | | | + + + + + + | RDW-CV | 15.2 (A) | 10.5 - 15.0 % | EXTERNAL | | | | | | LAB | | + + + + + + | MPV | | fL | EXTERNAL | | | | | | LAB | | + + + + + + | Differentia | | | EXTERNAL | | | l Type | | | LAB | | + + + + + + | % Segmented | 55.4 | % | EXTERNAL | | | | | | LAB | | | Neutrophils | | | | | + + + + + + | % | 31.9 | % | EXTERNAL | | | Lymphocytes | | | LAB | | + + + + + + | % Monocytes | 9.1 | % | EXTERNAL | | | | | | LAB | | + + + + + + | % | 1.9 | % | EXTERNAL | | | Eosinophils | | | LAB | | + + + + + + | % Basophils | 1.7 | % | EXTERNAL | | | | | | LAB | | + + + + + + | Absolute | | / L | EXTERNAL | | | Segmented | | | LAB | | | Neutrophils | | | | | + + + + + + | Absolute | | / L | EXTERNAL | | | Lymphocytes | | | LAB | | + + + + + + | Absolute | | / L | EXTERNAL | | | Monocytes | | | LAB | | + + + + + + | Absolute | | / L | EXTERNAL | | | Eosinophils | | | LAB | | + + + + + + | Absolute | | / L | EXTERNAL | | | Basophils | | | LAB | | + [...] + +---------+ + + Comprehensive Metabolic Panel (01/29/2015 12:00 AM PDT) + +---------+ + + + | Component | Value | Ref Range | Performed | Pathologist | | | | | At | Signature | + +---------+ + + + | Glucose, | 82 | mg/dL | EXTERNAL | | | Fasting | | | LAB | | + +---------+ + + + | BUN | 20 | mg/dL | EXTERNAL | | | | | | LAB | | + +---------+ + + + | Creatinine | 0.77 | mg/dL | EXTERNAL | | | | | | LAB | | + +---------+ + + + | BUN/Creatin | 26.0 | | EXTERNAL | | | ine Ratio | | | LAB | | + +---------+ + + + | Calcium | 9.4 | mg/dL | EXTERNAL | | | | | | LAB | | + +---------+ + + + | Protein, | 8.4 (A) | 6.0 - 8.0 g/dL | EXTERNAL | | | Total | | | LAB | | + +---------+ + + + | Albumin | 4.0 | | EXTERNAL | | | | | | LAB | | + +---------+ + + + | Globulin | 4.4 (A) | 1.8 - 3.5 | EXTERNAL | | | | | | LAB | | + +---------+ + + + | A/G Ratio | 0.9 (A) | 1.1 - 2.4 | EXTERNAL | | | | | | LAB | | + +---------+ + + + | Bilirubin | 0.2 | mg/dL | EXTERNAL | | | Total | | | LAB | | + +---------+ + + + | ALP, | 108 | | EXTERNAL | | | External | | | LAB | | + +---------+ + + + | ALT | 110 (A) | 7 - 52 U/L | EXTERNAL | | | | | | LAB | | + +---------+ + + + | AST | 48 (A) | 13 - 39 U/L | EXTERNAL | | | | | | LAB | | + +---------+ + + + | Na | 138 | mmol/L | EXTERNAL | | | | | | LAB | | + +---------+ + + + | K | 4.1 | mmol/L | EXTERNAL | | | | | | LAB | | + +---------+ + + + | Cl | 107 | mmol/L | EXTERNAL | | | | | | LAB | | + +---------+ + + + | CO2 | 23 | mmol/L | EXTERNAL | | | | | | LAB | | + +---------+ + + + | Anion Gap | 12.1 | mmol/L | EXTERNAL | | | | | | LAB | | + +---------+ + + + | Estimated | 78 | mg/dL | EXTERNAL | | | GFR | | | LAB | | + [...]
--- OUTSIDE RECORDS SUMMARY | ~2019-11-09 | XMS | Encounter Summary ---
Demographics + + + | Address | [address] | | | [place] [address] | + + + | Home Phone | | + + + | Preferred Language | Unknown | + + + | Marital Status | Single | + + + | Latter-Day Affiliation | 1009 | + + + | Race | Unknown | + + + | Ethnic Group | Unknown | + + + Author + + + | Author | [facility] | | | and [place] | + + + | Organization | [facility] | | | and [place] [...] Team Providers + +------+ + | Care Sintering Plant Supervisor Name | Role | Phone | + +------+ + PCP | Unavailable | + +------+ + Encounter Details +--------+ + + + + | Date | Type | Department | Care Team | Description | +--------+ + + + + | 08/09/ | Emergency | [facility] | Parminder, Tonio C, | Unspecified Backache | | 2009 | | [facility] | MD [address] | | | | | EMERGENCY CENTER | [place], [place] | | | | | [address] | [address] | | | | | [place], [place] | [phone] | | | | | [address] | | | | | | [phone] | | | +--------+ + + + [...] | 2020 | Visit | | [address] | | | | | | [address] | | | | | | [place] [address] | | | | | | [phone] | | | | | | | | +--------+---------+ + + + documented as of this encounter Visit Diagnoses + + | Diagnosis | + + | Backache, unspecified | + + documented in this encounter"
--- OUTSIDE RECORDS SUMMARY | ~2019-11-09 | XMS | Encounter Summary ---
Demographics + + + | Address | [address] | | | [place] [address] | + + + | Home Phone | | + + + | Preferred Language | Unknown | + + + | Marital Status | Single | + + + | Restorationism Affiliation | [id number] | + + + | Race | Unknown | + + + | Ethnic Group | Unknown | + + + Author + + + | Author | [facility] | | | and [place] | + + + | Organization | [facility] | | | and [...] Team Providers + +------+ + | Care Pediatric Social Worker Name | Role | Phone | + +------+ + | Hayden Aecvedo MD | PCP | | + +------+ + Encounter Details +--------+ + + + + | Date | Type | Department | Care Team | Description | +--------+ + + + + | 09/19/ | Hospital | [facility] | Geovanny Berg MD | Nicotine addiction; | | 2013 - | Encounter | MEDICAL [facility]ENTER | [address] | OAB (overactive | | | | CLINICAL DECISION | [place] [address] | bladder); GERD | | 09/21/ | | [address] | [phone] | (gastroesophageal | | 2013 | | [place] | | reflux disease); | | | | [phone] | | Vitamin D | | | | [phone] | | deficiency; COPD | | | | | | (chronic obstructive | | | | | | pulmonary disease) | | | | | | (HCC); Bronchitis; | | | | | | Anxiety; Acute renal | | | | | | failure (HCC); | | | | | | Transient | | | | | | hypotension; Spinal | | | | | | stenosis; Altered | | | | | | level of | | | | | | consciousness; | | | | | | Depression; | | | | | | Hypotension, | | | | | | unspecified; | | | | | | Rhabdomyolysis; | | | | | | Acidosis; ARF (acute | | | | | | renal failure) | | | | | | (HCC); HTN | | | | | | (hypertension); | | | | | | Hypothyroid; Mood | | | | | | disorder (HCC); | | | | | | Mixed stress and | | | | | | urge urinary | | | | | | incontinence; | | | | | | Dyspareunia; | | | | | | Cystocele; Rectocele | +--------+ + + + + Social [...] documented as of this encounter Discharge Summaries Philip Leyva MD - 09/21/2013 5:57 PM PDT Discharge Summaries by Philip Singh MD at 09/21/13 768 Author: Philip Singh MD Service: (none) Author Type: Physician Filed: 09/22/13 1011 Date of Service: 09/21/131756 Status: Signed Cartographic Engineer: Philip Singh MD (Physician) Related Notes: Original Note by Philip Singh MD (Physician) filed at 09/21/13 1805 [facility] Service: Hospitalist Physician Discharge Summary Patient ID: Nohemi Espitia 1960 53 y.o. Admit date: 09/19/2013 Discharge date: Admitting Physician: Geovanny Berg MD Discharge Physician: Philip Singh MD Consultants: Treatment Team: Consulting Physician: Geovanny Berg MD Consulting Physician: Nura Lee MD Admitting Provider: Geovanny Berg MD Primary Discharge Diagnoses: Active Problems: Altered mental status Rhabdomyolysis Polypharmacy Marijuana abuse Dizziness and giddiness Hypotension, unspecified Back ache ARF (acute renal failure) Acidosis HPI and Hospital Course: The patient was admitted to [facility] on September 19, 2013, with significantly altered mental statu s changes secondary to polypharmacy medication regimen, as well as THC dependence/abuse. The patient was admitted with subsequent discontinuation of her narcotics. She has been taken o ff her medication temporarily. She had no evidence of worsening of her chronic back pain. In fact, the patient did quite well only with the p.r.n. doses of benzodiazepines. She had no symptoms of opiate withdrawal. Her manic behavior improved significantly in the last 24 hour s of hospitalization. At the time of my last examination of the patient, she was awake, aler t, and oriented to self, place, and time. She expressed a very strong desire to be discharge d home on , i.e., 09/21/2013, as she wanted to join her family at home. She promis ed to enter AA program and stop using recreational drugs and mixing them with prescribed devyn cotics. I informed her that I am going to discontinue her previously prescribed oxycodone, a s well as Robaxin. She was urged to follow up with her primary care doctor in the next 1 to 2 days for post hospitalization reevaluation and further discussion about polysubstance use, along with recreational drug use. Obviously, this combination is extremely dangerous. The p atient was discouraged to do so and, if she continues to do that, she will be risking signif icant morbidity and mortality issues including possible permanent disability and even . The patient understood these recommendations and will comply according to our recommendatio ns. All her questions were answered to full of her satisfaction. From a nephrology standpoint, the patient presented with partial acute injury of her kidney s. Her creatinine level normalized under direction of Dr. Lee, who was consulted for treatm ent of her acute kidney injury. Her creatinine level went down from 2.26 on admission to 0.9 0 at the time of discharge. Her CBC remained fairly normal with discharge white blood cell c ount of 6200, hemoglobin 10.9, hematocrit 33.2, and platelets of 314,000. This was a result of likely dilutional effect of generous hydration, which the patient received intravenously during this hospitalization. She was also diagnosed with significant rhabdomyolysis at the time of admission with total CK elevation of 3032. Her follow-up CK showed significant improvement, and at the time of arturo willis her total CK was only 519. She was encouraged to drink at least 8 to 10 glasses of w ater per day in order to stay well hydrated. We would recommend the patient have repeat BMP at the time of her follow-up visit with her PCP for reevaluation. The patient stated that she has already been referred by her PCP to a psychologist for eval uation of her likely anxiety/bipolar disorder. She has recently had a number of social stres sors including of her brother 1 week go which "threw her" into significant manic episo de/depression, which the patient uses to explain why she consumes inappropriate amounts of r ecreational substances, in addition to her usual polypharmacy medication regimen. The patien t was encouraged to keep the appointment with the psychologist/counselor in the near future for evaluation and treatment options. At the time of my discharge of the patient, she was awake, alert, and oriented to self, kalyn ce, and time. She expressed a very strong desire to be discharged home as noted above. [facility] arranged for the patient to receive paid-for taxi transportation to her house hold in the [facility]. The family of the patient was not available for transport at the janette e of discharge from the hospital. Past Medical History: Past Medical History Diagnosis Date Anxiety Hypertension Thyroid disease Depression Past Surgical History Procedure Date Hysterectomy Cholecystectomy Appendectomy Bladder surgery [facility] [place] 07/14/2013 [facility] [place] 08/06/2013 Discharged Condition: Stable for discharge as stated above. Significant Diagnostic Studies: Ct Head Non-con 09/19/[address] HEAD WO CONTRAST HISTORY: 53 years. Female. Altered mental status. TECHNIQUE: CT examination the head was performed without contrast. COMPARISON: Non e. FINDINGS: No abnormal areas of increased or decreased density seen throughout the brain. No mass, hemorrhage, midline shift, or extra-axial fluid collection. 09/19/[address] head without contrast. Ultrasound Retroperitoneal Limited 09/19/2013 NOHEMI ESPITIA 1960 US RETROPERITONEAL LIMITED 09/19/2013 7:39 PM INDICA TION: Acute renal failure with COPD and hypertension COMPARISON: None TECHNIQUE: Limited r etroperitoneal ultrasound, grayscale assessment FINDINGS: The bladder is decompressed by a Rojas catheter. The acoustic window is limited in assessment of the right kidney which measu res 9.6 x 5.6 x 4.3 cm. Renal cortical thickness appears maintained. There is no gross evide nce of hydronephrosis. The left kidney measures 10.4 x 5.4 x 5.0 cm. The acoustic window is also limited on this side as well. There is no gross evidence of hydronephrosis of the left kidney. 09/19/2013 1. Limited examination without evidence of hydronephrosis. Electronically sign ed by Niall Jacome MD on 09/19/2013 7:40 PM X-ray Chest 1 View 09/19/2013 NOHEMI ESPITIA 1960 53 years XR CHEST 1 VIEW 09/19/2013 5:07 PM INDICATI ON: Shortness of breath with underlying COPD COMPARISON: 06/22/13 TECHNIQUE: Chest 1 view, AP view of the chest FINDINGS: The heart is normal in size. A slightly more rounded appear ance of the cardiac silhouette may be related to slightly diminished lung volumes. There is newly developed peribronchial thickening and bilateral hazy perihilar opacities. There is no pneumothorax. No pleural fluid is present. There is no focal airspace consolidation. Modera te gaseous distention of the stomach is present. 09/19/2013 1. Findings suggestive of bronchitis versus mild interstitial edema. Electroni linda signed by Niall Jacome MD on 09/19/2013 5:20 PM Discharge Vitals: Filed Vitals: 09/21/13 0351 09/21/13 0836 09/21/13 1155 09/21/13 1554 BP: 121/55 145/75 163/87 150/89 Pulse: 74 84 74 77 Temp: 98.1 F (36.7 C) 98.4 F (36.9 C) 97.7 F (36.5 C) 97.7 F (36.5 C) TempSrc: Oral Oral Oral Oral Resp: 18 20 16 16 Height: Weight: 112.855 kg (248 lb 12.8 oz) SpO2: 95% 97% 100% 97% Discharge Exam: General: Well nourished. Psych: Alert and oriented x 3. Calm, cooperative at the time of her discharge Cardiovascular: Regular rate and rhythm, no murmurs, no thrills. Normal PMI. Respiratory: Clear to auscultation, no wheezing or crackles, breathing non labored. Gastrointestinal: Soft, non-tender, non-distended, positive bowel sounds. No HSM. Musculoskeletal: No edema in bilateral lower extremities. No joint swelling. Skin: Warm and dry, no rashes. Neck: No JVD, Trachea midline. Neurological: Non focal. Motor grossly intact. LABS: Lab 09/21/13 0440 09/20/13 0540 09/19/13 1320 WBC 6.2 10.1 9.0 HGB 10.9* 11.2* 11.9 HCT 33.2* 33.3* 35.3 PLT 314 362 443* NEUTOPHILPCT 39.7 63.7 60.4 MONOPCT 6.6 6.0 8.0 Lab 09/21/13 0440 09/20/13 0540 09/19/13 1320 NA 140 139 141 K 4.2 3.9 4.5 CL 114* 114* 110* CO2 21* 21* 20* BUN 15 20 30* CREATININE 0.90 1.14* 2.26* CALCIUM -- -- -- PROT -- 6.5 8.2 BILITOT -- 0.3 0.2 ALKPHOS -- -- -- ALT -- 50 74* AST -- 93* 153* GLUCOSE -- -- -- Phosphorus: Lab 09/21/13 0440 PHOS 3.0 Lab 09/21/13 0440 09/20/13 0540 MG 1.8 1.9 Lab 09/19/13 1320 APTT 23 INR 1.0 PTT -- Lab 09/19/13 1320 TSH 0.61 T3FREE -- FREET4 1.1 Lab 09/21/13 0440 09/20/13 0540 09/19/13 1320 CKTOTAL 519* 1383* 3032* TROPONINI -- -- -- TROPONINT -- -- -- CKMBINDEX -- -- 1.8 Disposition: Home or Self Care Follow up: ANUR[facility] [address] [place] [id number] Schedule an appointment as soon as possible for a visit in 2 days Medication List As of 09/21/2013 5:57 PM CONTINUE taking these medications AEROCHAMBER MV inhaler QTY: 1 each Refills: 0 For use with inhalers albuterol (2.5 MG/3ML) 0.083% nebulizer solution QTY: 20 vial Refills: 1 Commonly known as: PROVENTIL Take 6 mLs by nebulization every 6 (six) hours as needed for Wheezing. baclofen 10 MG tablet QTY: 75 tablet Refills: 0 Commonly known as: LIORESAL Take 1-2 tabs po q 8hrs as needed for muscle spasm and tightness ergocalciferol 61378 UNITS capsule QTY: 12 capsule Refills: 0 For diagnoses: Low Vitamin D Level Commonly known as: DRISDOL Take 1 capsule by mouth once a week. estradiol 0.1 MG/GM vaginal cream QTY: 42.5 g Refills: 12 For diagnoses: Loss Of Bladder Control, Painful Sexual [employer], Fallen Bladder, [place] g Of Female Genital Organs Commonly known as: ESTRACE Place one gram vaginally qhs x 2 weeks, then begin using one gram vaginally three times we ekly at night. FLUoxetine 40 MG capsule QTY: 90 capsule Refills: 3 For diagnoses: Depression Commonly known as: PROzac Take 1 capsule by mouth daily. * gabapentin 300 MG capsule Refills: 0 Commonly known as: NEURONTIN * gabapentin 100 MG capsule QTY: 60 capsule Refills: 1 Commonly known as: NEURONTIN Take 1 capsule by mouth 2 (two) times daily. hydrALAZINE 25 MG tablet QTY: 90 tablet Refills: 11 For diagnoses: Anxiety Problem Commonly known as: APRESOLINE Take 1-2 tablets PO every 8 hours as needed for anxiety ipratropium-albuterol 18-103 MCG/ACT inhaler QTY: 14.7 g Refills: 3 For diagnoses: Chronic Airway Obstruction Commonly known as: COMBIVENT Inhale 2 puffs [...] mouth daily. LORazepam 1 MG tablet QTY: 30 tablet Refills: 0 For diagnoses: Anxiety Problem Commonly known as: ATIVAN Take 1 tablet by mouth every 6 (six) hours as needed for Anxiety. OLANZapine 10 MG tablet QTY: 90 tablet Refills: 3 For diagnoses: Mood Problem Commonly known as: ZyPREXA Take 1 tablet by mouth nightly. ranitidine 150 MG tablet QTY: 180 tablet Refills: 3 For diagnoses: Acid Reflux Disease Commonly known as: ZANTAC Take 1 tablet by mouth 2 (two) times daily. solifenacin 10 MG tablet QTY: 30 tablet Refills: 3 For diagnoses: Loss Of Bladder Control, Overactive Bladder Commonly known as: VESICARE Take 1 tablet by mouth daily. varenicline 1 MG tablet QTY: 60 tablet Refills: 2 For diagnoses: Nicotine Dependence Commonly known as: CHANTIX Take 1 tablet by mouth 2 (two) times daily. * Notice: This list has 2 medication(s) that are the same as other medications prescribed for you. Read the directions carefully, and ask your doctor or other care provider to review them with you. STOP taking these medications guaifenesin-codeine 100-10 MG/5ML syrup Commonly known as: ROBITUSSIN-CODEINE methocarbamol 750 MG tablet Commonly known as: ROBAXIN oxyCODONE-acetaminophen 10-325 MG per tablet Commonly known as: PERCOCET Philip Singh MD 09/21/2013 5:57 PM Discharge took more than 35 minutes, to include final examination, discussion of admission, and preparation of prescriptions, instructions for ongoing care, follow up and dictation of summary. documented in thi s encounter Medications at Time of Discharge + [...] Progress Notes Conversion Transaction, Provider Unknown - 09/21/2013 11:50 AM PDTFormatting of this note m ight be different from the original. Progress Notes by Marce Garcia RPH at 09/21/13 1150 Author: Marce Garcia RPH Service: (none) Author Type: Pharmacist Filed: 09/21/13 1150 Date of Service: 09/21/131149 Status: Signed Cartographic Engineer: Marce Garcia RPH (Pharmacist) Clinical Pharmacy Note: Renal Monitoring Nohemi Bazzijose roberto 53 y.o. female Ht Readings from Last 1 Encounters: 09/19/13 1.702 m (5' 7") Wt Readings from Last 1 Encounters: 09/21/13 112.855 kg (248 lb 12.8 oz) CREATININE: 0.9 (09/21/13 0440) Estimated creatinine clearance - Cockcroft-Gault CrCl: 93.7 mL/min Will order the following dosage adjustments: Ranitidine 150mg po BID Pharmacy will continue to monitor for changes in medication orders and in renal function an d adjust accordingly. Marce Garcia RPh 09/21/2013 11:49 AM Nura Thomas - 09/21/2013 11:12 AM PDTFormatting of this note might be different from the or iginal. Progress Notes by Nura Lee MD at 09/21/13 1112 Author: Nura Lee MD Service: Nephrology Author Type: Physician Filed: 09/21/13 0523 Date of Service: 09/21/131111 Status: Signed Cartographic Engineer: Nura Lee MD (Physician) [facility] Service: NEPHROLOGY progress Note Nohemi Espitia 53 y.o. [id number] female [facility] Day: LOS: 2 days The patient is a 53 y.o. female with significant past medical history of Chronic back pain secondary to spinal stenosis, history of depression, hypothyroidism, and hypertension admit kayy with acute renal failure, rhabdomyolysis, dehydration. Nephrology consulted for evaluation and management of ARF Lab Results Component Value Date BUN 15 09/21/2013 BUN 20 09/20/2013 BUN 30* 09/19/2013 BUN 10 08/15/2013 BUN 29* 06/24/2013 CREATININE 0.90 09/21/2013 CREATININE 1.14* 09/20/2013 CREATININE 2.26* 09/19/2013 CREATININE 0.66 08/15/2013 CREATININE 0.92 06/24/2013 ONSET ACUTE severity SEVERE Associated with fluid electrolyte acid base imbalances RF: DECREASE PO INTAKE/ LOW BP/ HEMODYNAMIC EFFECT OF LISINOPRIL/ RHABDOMYOLYSIS Pateint seen and examined Says feel weak , more awake and alert SAYS pain in back/ shoulder BETTER CONTROLLED Denies cp, sob, nausea, vomiting, diarrhea, fever, headache Past Medical History Diagnosis Date Anxiety Hypertension Thyroid disease Depression Past Surgical History Procedure Date Hysterectomy Cholecystectomy Appendectomy Bladder surgery [facility] 07/14/2013 [facility] 08/06/2013 Prescriptions prior to admission Medication Sig Dispense Refill albuterol (PROVENTIL) (2.5 MG/3ML) 0.083% nebulizer solution Take 6 mLs by nebulization every 6 (six) hours as needed for Wheezing. 20 vial 1 baclofen (LIORESAL) 10 MG tablet Take 1-2 tabs po q 8hrs as needed for muscle spasm and tightness 75 tablet 0 ergocalciferol (DRISDOL) 81646 UNITS capsule Take 1 capsule by mouth [...] 1 gabapentin (NEURONTIN) 300 MG capsule Take 600 mg by mouth nightly. guaifenesin-codeine (ROBITUSSIN-CODEINE) 100-10 MG/5ML syrup Take 10 mLs by mouth 3 (th ree) times daily as needed for Cough. 120 mL 0 hydrALAZINE (APRESOLINE) 25 MG tablet Take 1-2 tablets PO every 8 hours as needed for a nxiety 90 tablet 11 ipratropium-albuterol (COMBIVENT) 18-103 MCG/ACT inhaler Inhale 2 [...] 6 (six) hours as needed for Anxiety. 30 tablet 0 methocarbamol (ROBAXIN) 750 MG tablet take 1 tablet by mouth three times a day if neede d 75 tablet 0 OLANZapine (ZYPREXA) 10 MG tablet Take 1 tablet by mouth nightly. 90 tablet 3 oxyCODONE-acetaminophen (PERCOCET) 10-325 MG per tablet Take 1 tablet by mouth every 3 (three) hours as needed for Pain. 150 tablet 0 ranitidine (ZANTAC) 150 MG tablet Take 1 tablet by mouth 2 (two) times daily. 180 tabl et 3 solifenacin (VESICARE) 10 MG tablet Take 1 tablet by mouth daily. 30 tablet 3 Spacer/Aero-Holding Chambers (AEROCHAMBER MV) inhaler For use with inhalers 1 each 0 varenicline (CHANTIX) 1 MG tablet Take 1 tablet by mouth 2 (two) times daily. 60 table t 2 No Known Allergies Family History Problem Relation Age of Onset Breast cancer Sister Skin cancer Sister Ovarian cancer Sister Heart disease Mother Diabetes Father NO FH KIDNEY PROBLEMS. History Social History Marital Status: Significant Other [...] Social History Narrative No narrative on file Scheduled Medications [START ON 09/25/2013] ergocalciferol 50,000 Units Oral Q7 Days heparin (porcine) 5,000 Units Subcutaneous Q12H hydrALAZINE 25 mg Oral Q8H DILIA levothyroxine 25 mcg Oral QAM AC loratadine 10 mg Oral Daily ranitidine 150 mg Oral Daily sodium chloride 1,000 mL Intravenous Once sodium chloride 1,000 mL Intravenous Once solifenacin 10 mg Oral Daily Continuous Infusions sodium chloride 100 mL/hr at 09/20/13 2216 [DISCONTINUED] sodium chloride 110 mL/hr at 09/19/13 1652 PRN Medications acetaminophen, acetaminophen, albuterol, ipratropium-albuterol, LORazepam, naloxone, ondans etron, ondansetron, polyethylene glycol, zolpidem Allergy: No Known Allergies OBJECTIVE Vital Signs: BP 145/75 | Pulse 84 | Temp 98.4 F (36.9 C) (Oral) | Resp 20 | Ht 1.702 m (5' 7") | Wt 112.855 kg (248 lb 12.8 oz) | BMI 38.96 kg/m2 | SpO2 97% I&O Detailed Table: I/O last 3 completed shifts: In: 5166 [P.O.:675; I.V.:4491] Out: 2800 [Urine:2800] Weight change: 5.806 kg (12 lb 12.8 oz) Examination: APPEARANCE: The patient is lying in no apparent distress, AWAKE and alert. VITALS: Reviewed as listed. HEAD: NC/AT. EYES: Non-icteric sclera. ENT: Buccal mucosa is MOIST. No gross ear or nasal problems noted. NECK: Supple. No raised JVD LUNGS: Clear to auscultation bilaterally. HEART: S1, S2, no pericardial rub noted. ABDOMEN: Full, soft, no tenderness. Bowel sounds are present. EXTREMITIES: no pedal edema noted. SKIN: Warm to touch. No rash or ecchymosis noted. NEUROLOGIC: No gross focal motor deficit noted. PSYCH: The patient is awake and alert BACK: no CVA tenderness noted LABS: Recent Results (from the past 24 hour(s)) CBC W/AUTO DIFF (REFLEX TO MANUAL) Collection Time 09/21/13 4:40 AM Component Value Range WBC 6.2 3.8 - 11.0 K/uL RBC 3.63 (*) 3.70 - 5.10 M/uL HGB 10.9 (*) 11.3 - 15.5 g/dL HCT 33.2 (*) 34.0 - 46.0 % MCV 91.6 80.0 - 100.0 fl MCH 30.1 27.0 - 34.0 pg MCHC 32.9 32.0 - 35.5 g/dL RDW SD 45.9 37 - 53 fl PLT 314 150 - 400 K/uL MPV 7.5 DIFF TYPE AUTOMATED NEUTROPHILS 39.7 LYMPHOCYTES 48.1 MONOCYTES 6.6 EOSINOPHILS 5.3 BASOPHILS 0.3 NEUTROPHILS ABS 2.5 1.9 - 7.4 K/uL LYMPHOCYTES ABS 3.0 1.0 - 3.9 K/uL MONOCYTES ABS 0.4 0 - 0.8 K/uL EOSINOPHILS ABS 0.3 0 - 0.5 K/uL BASOPHILS ABS 0.0 0 - 0.1 K/uL MAGNESIUM Collection Time 09/21/13 4:40 AM Component Value Range MAGNESIUM 1.8 1.7 - 2.4 mg/dL CK Collection Time 09/21/13 4:40 AM Component Value Range CPK 519 (*) 30 - 240 U/L RENAL FUNCTION PANEL Collection Time 09/21/13 4:40 AM Component Value Range SODIUM 140 135 - 143 mmol/L POTASSIUM 4.2 3.5 - 4.9 mmol/L CHLORIDE 114 (*) 99 - 109 mmol/L CO2 21 (*) 23 - 32 mmol/L ANION GAP AGAP 9 5 - 20 mmol/L GLUCOSE 88 65 - 99 mg/dL BUN 15 8 - 25 mg/dL CREATININE 0.90 0.50 - 1.00 mg/dL CALCIUM 8.5 8.5 - 10.2 mg/dL Albumin 2.9 (*) 3.6 - 5.0 g/dL PHOSPHORUS 3.0 2.3 - 4.8 mg/dL EGFR >60 >60 mL/min/1.73m2 IMAGING: Ct Head Non-con 09/19/[address] HEAD WO CONTRAST HISTORY: 53 years. Female. Altered mental status. TECHNIQUE: CT examination the head was performed without contrast. COMPARISON: Non e. FINDINGS: No abnormal areas of increased or decreased density seen throughout the brain. No mass, hemorrhage, midline shift, or extra-axial fluid collection. 09/19/[address] head without contrast. Patient's old records and labs were reviewed in detail and summarized. PROBLEM LIST Active Problems: Altered mental status Rhabdomyolysis Polypharmacy Marijuana abuse Dizziness and giddiness Hypotension, unspecified Back ache ARF (acute renal failure) Acidosis ASSESSMENT & PLAN ARF IMPROVING RENAL FUNCTION LIKELY SECONDARY TO Renal hypoperfusion IN THE SETTING OF DECREASE PO INTAKE/ LOW BP/ HEMOD YNAMIC EFFECT OF LISINOPRIL/ RHABDOMYOLYSIS RULED OUT HYDRONEPHROSIS PER US RENAL REVIEWED Lab Results Component Value Date BUN 15 09/21/2013 BUN 20 09/20/2013 BUN 30* 09/19/2013 BUN 10 08/15/2013 BUN 29* 06/24/2013 CREATININE 0.90 09/21/2013 CREATININE 1.14* 09/20/2013 CREATININE 2.26* 09/19/2013 CREATININE 0.66 08/15/2013 CREATININE 0.92 06/24/2013 IV FLUIDS decrease iv fluids 70 mls/hr Hold CHRIS-I LISNOPRIL KEEP MAP GREATER THAN 65 MM HG Urine studies REVIEWED C3, C4 levels WNL Strict I & O, Daily weights Daily RFP Renal diet AVOID NSAIDS/ MARTINEZ-2 INHIBITORS AVOID NEPHROTOXIC MEDS INCLUDING AMINOGLYCOSIDES/ IV CONTRAST Dose all meds for crcl less than 30 mls/min HYPOTENSION IMPROVED KEEP MAP GREATER THAN 65 MM HG BP Readings from Last 3 Encounters: 09/21/13 145/75 09/18/13 98/60 08/07/13 110/68 RHABDOMYOLYSIS IMPROVING CPK IMPROVING IV FLUIDS ACIDOSIS: STABLE LIKELY SECONDARY TO ARF WATCH CLOSELY FOR NOW Lab Results Component Value Date CO2 21* 09/21/2013 CO2 21* 09/20/2013 CO2 20* 09/19/2013 ALTERED MS IMPROVED C HEAD NEGATIVE, U.TOX +VE FOR THC PER HOSPITALIST CASE DISCUSSED IN DETAIL WITH PATIENT/ HOSPITALIST, ANSWERS ALL QUESTIONS IN DETAIL, JULIUS GALEANO UNDERSTANDING NURA LEE MD 09/21/2013 [place] [place] onversion Transactio n, Provider Unknown - 09/21/2013 4:59 AM PDT Progress Notes by Aury Belcher RN at 09/21/13458 Author: Aury Belcher RN Service: (none) Author Type: Registered Nurse Filed: 09/21/13 0502 Date of Service: 09/21/13458 Status: Signed Cartographic Engineer: Aury Belcher RN (Registered Nurse) Patient alert and oriented to person, place, and time. Patient had one blood pressure readi ng of 98/59. Patient vital signs have otherwise been stable. Patient reports feeling anxious . Patient medicated with Ativan X 1. See MAR for medication administration. No acute changes from previous assessment. Patient visualized hourly. Patient is sleeping in room at this ti me. Will continue to monitor. Aury Belcher Philip Esquivel MD - 09/20/2013 5:19 PM PDTFormatting of this note might be different from ember wiggins original. Progress Notes by Philip Singh MD at 09/20/131718 Author: Philip Singh MD Service: (none) Author Type: Physician Filed: 09/21/13 0926 Date of Service: 09/20/131718 Status: Signed Cartographic Engineer: Philip Singh MD (Physician) Related Notes: Original Note by Philip Singh MD (Physician) filed at 09/20/13 1502 [facility] Service: Hospitalist Progress Note Pt: Nohemi Espitia AGE/SEX: 53 y.o. female : 1960 ROOM: [address] [place] [address] " HISTORY OF PRESENT ILLNESS The patient is a 53 y.o. female with significant past medical history of who presents wit h Chronic back pain secondary to spinal stenosis, history of depression, hypothyroidism, and hypertension who went to see Dr. Crum today for chronic back pain followup requesting pain m edications, and the patient was found to be somnolent, drowsy, and confused. Hence, she was referred to [facility] where the patient's blood pressure was found to be 84/46 and blood work showed normal white count, creatinine o f 2.26, and CPK of 3032. UTOX is positive for marijuana. CT head is negative. Urinalysis was positive for trace bacteria by no pyuria. The patient was afebrile otherwise and found to b e somnolent, though answered questions with yes and no and kept saying that she was feeling dizzy and not able to get any meaningful history from her. Per Dr. Oneil, the patient told her that her brother more than a week ago and she has been feeling very depressed, not eating and drinking, for more than a week now and continued to take her pain medications fo r chronic back pain. The patient was given 2 L of IV fluid bolus in the emergency department after which her blood pressure went up to 95/55, and the hospitalist service was called in to admit the patient with acute renal failure, rhabdomyolysis, dehydration, and altered ment al status secondary to polypharmacy, as well as marijuana abuse." ........as per admitting M Catie ( Dr. Berg). TODAY'S DATE: 09/20/2013 Hospital Day: LOS: 1 day SUBJECTIVE: The patient was examined this afternoon in the presence of her niece. I was gi chele permission by the patient to share the information about her condition with her niece an d to collaborate on the treatment plan for this patient. The patient is currently displaying behavior which closely resembles an elevated mood disorder such as jairo or hypomania. She obviously has very scattered thoughts and pressured speech. She is unable to concentrate. Sh e is unable to maintain conversation with her niece about basic events occurring in family l sule[place]. The niece is worried that the patient is under the influence of some unknown medication which she might have taken on the outpatient basis. The patient was treated with very low dose of Ativan 0.5 mg IV x1 prior to me examining her . At the time of examination, she was oriented to self and place but not necessarily time. H er level of agitation, however, improved significantly with benzodiazepine therapy. The chance ent's niece tells me that the patient has a history of taking her oral pain medications quit e imprecisely, which means the patient might be taking 3 or 4 tablets at once at the same ti me trying to control her anxiety or her chronic pain. She has had previous history of near r espiratory arrest and intubation at a hospital in [place] as per the patient/niece's report. During my conversation with the patient today, I did not receive too many complaints about her various localizations of her pain. She mainly complained about left knee and back pain, which have been chronic issues for her and likely represent no acute pathology at this time. I informed the patient that at this time I will not be able to take away all of her pain an d that we will concentrate on pain control in very incremental attempts over the next 12 to 24 hours. Review of Systems: Review of Systems Unable to perform ROS: mental status change It was very difficult to perform an accurate review of systems in this patient at the prese nt time as she is displaying manic behavior. She reports elevated level of pain in almost ev nikolai part of her body. However, when distracted pain level appears to be a nonissue. She has fight of ideas at this time. She reports numerous and inconsistent complaints about various symptoms. Overall, I believe at the present time review of systems is quite inaccurate. Scheduled Medications [START ON 09/25/2013] ergocalciferol 50,000 Units Oral Q7 Days heparin (porcine) 5,000 Units Subcutaneous Q12H hydrALAZINE 25 mg Oral Q8H DILIA levothyroxine 25 mcg Oral QAM AC loratadine 10 mg Oral Daily [COMPLETED] pneumococcal 23-valent vaccine 0.5 mL Intramuscular Once Immunization ranitidine 150 mg Oral Daily sodium chloride 1,000 mL Intravenous Once sodium chloride 1,000 mL Intravenous Once solifenacin 10 mg Oral Daily Continuous Infusions sodium chloride 100 mL/hr at 09/20/13 1444 [DISCONTINUED] sodium chloride 110 mL/hr at 09/19/13 1652 PRN Medications acetaminophen, acetaminophen, albuterol, ipratropium-albuterol, LORazepam, naloxone, ondans etron, ondansetron, polyethylene glycol, zolpidem Allergy: No Known Allergies OBJECTIVE Vitals: Patient Vitals for the past 24 hrs: BP Temp Temp src Pulse Resp SpO2 Weight 09/20/13 1544 143/59 mmHg 97.9 F (36.6 C) Oral 90 22 97 % - 09/20/13 1241 127/64 mmHg 98.2 F (36.8 C) Oral 79 18 98 % - 09/20/13 0731 112/52 mmHg 97.6 F (36.4 C) Oral 74 18 97 % - 09/20/13 0308 98/62 mmHg 97.6 F (36.4 C) Oral 71 18 100 % 110.451 kg (243 lb 8 oz) 09/19/13 2355 102/58 mmHg 98 F (36.7 C) Axillary 60 18 99 % - 09/19/13 2340 - - - 58 18 99 % - 09/19/13 2322 - - - 66 24 98 % - 09/19/13 2309 - - - 72 - - - 09/19/13 2300 94/60 mmHg - - 74 - - - 09/19/13 2230 103/58 mmHg - - 56 - 100 % - 09/19/13 2200 92/61 mmHg - - 54 - 100 % - 09/19/13 2130 95/63 mmHg - - 52 - 100 % - 09/19/13 2100 94/61 mmHg - - 54 - 100 % - 09/19/13 2030 93/57 mmHg - - 52 - 100 % - 09/19/132011 88/55 mmHg 97.8 F (36.6 C) Axillary 52 16 93 % - I&O Detailed Table: Intake/Output Summary (Last 24 hours) at 09/20/13 1719 Last data filed at 09/20/13 1544 Gross per 24 hour Intake 1875 ml Output 2400 ml Net -525 ml Patient Vitals for the past 96 hrs: Weight 09/20/13 0308 110.451 kg (243 lb 8 oz) 09/19/13 1719 107.049 kg (236 lb) Hemodynamics Last 24hrs: Examination: Physical Exam LABS: Lab 09/20/13 0540 09/19/13 1320 WBC 10.1 9.0 HGB 11.2* 11.9 HCT 33.3* 35.3 PLT 362 443* NEUTOPHILPCT 63.7 60.4 MONOPCT 6.0 8.0 Lab 09/20/13 0540 09/19/13 1320 NA 139 141 K 3.9 4.5 CL 114* 110* CO2 21* 20* BUN 20 30* CREATININE 1.14* 2.26* CALCIUM -- -- PROT 6.5 8.2 BILITOT 0.3 0.2 ALKPHOS -- -- ALT 50 74* AST 93* 153* GLUCOSE -- -- Phosphorus: Lab 09/20/13 0540 PHOS 2.6 Lab 09/20/13 0540 MG 1.9 Lab 09/19/13 1320 APTT 23 INR 1.0 PTT -- Lab 09/19/13 1320 TSH 0.61 T3FREE -- FREET4 1.1 Lab 09/20/13 0540 09/19/13 1320 CKTOTAL 1383* 3032* TROPONINI -- -- TROPONINT -- -- CKMBINDEX -- 1.8 Diagnostic: Ct Head Non-con 09/19/[address] HEAD WO CONTRAST HISTORY: 53 years. Female. Altered mental status. TECHNIQUE: CT examination the head was performed without contrast. COMPARISON: Non e. FINDINGS: No abnormal areas of increased or decreased density seen throughout the brain. No mass, hemorrhage, midline shift, or extra-axial fluid collection. 09/19/[address] head without contrast. Ultrasound Retroperitoneal Limited 09/19/2013 NOHEMI ESPITIA 1960 US RETROPERITONEAL LIMITED 09/19/2013 7:39 PM INDICA TION: Acute renal failure with COPD and hypertension COMPARISON: None TECHNIQUE: Limited r etroperitoneal ultrasound, grayscale assessment FINDINGS: The bladder is decompressed by a Rojas catheter. The acoustic window is limited in assessment of the right kidney which measu res 9.6 x 5.6 x 4.3 cm. Renal cortical thickness appears maintained. There is no gross evide nce of hydronephrosis. The left kidney measures 10.4 x 5.4 x 5.0 cm. The acoustic window is also limited on this side as well. There is no gross evidence of hydronephrosis of the left kidney. 09/19/2013 1. Limited examination without evidence of hydronephrosis. Electronically sign ed by Niall Jacome MD on 09/19/2013 7:40 PM X-ray Chest 1 View 09/19/2013 NOHEMI ESPITIA 1960 53 years XR CHEST 1 VIEW 09/19/2013 5:07 PM INDICATI ON: Shortness of breath with underlying COPD COMPARISON: 06/22/13 TECHNIQUE: Chest 1 view, AP view of the chest FINDINGS: The heart is normal in size. A slightly more rounded appear ance of the cardiac silhouette may be related to slightly diminished lung volumes. There is newly developed peribronchial thickening and bilateral hazy perihilar opacities. There is no pneumothorax. No pleural fluid is present. There is no focal airspace consolidation. Modera te gaseous distention of the stomach is present. 09/19/2013 1. Findings suggestive of bronchitis versus mild interstitial edema. Fannyi linda signed by Niall Jacome MD on 09/19/2013 5:20 PM Past Medical History Diagnosis Date Anxiety Hypertension Thyroid disease Depression Past Surgical History Procedure Date Hysterectomy Cholecystectomy Appendectomy Bladder surgery [facility] [place] 07/14/2013 [facility] [place] 08/06/2013 PROBLEM LIST Active Problems: Altered mental status Rhabdomyolysis Polypharmacy Marijuana abuse Dizziness and giddiness Hypotension, unspecified Back ache ARF (acute renal failure) Acidosis ASSESSMENT & PLAN This is a 53-year-old female with past medical history of hypertension, hypothyroidism and chronic back pain as well as depression and likely previously treated bipolar disorder. She was referred from Dr. Crum's office where she presented for back pain followup and was found to be extremely somnolent and confused. She was subsequently transferred to [facility] emergency room for evaluation. She was found to be profoundly hypotensive wi th evidence of acute renal failure and also mental status. Her mental status change was init ially attributed to polypharmacy regimen which she is on as well as positive toxicology scre en for recreational substances. She presents currently with the followin. Altered mental status secondary to polypharmacy as well as THC dependence/abuse. The pat ient previously used medications i.e. fluoxetine, gabapentin, lorazepam, oxycodone and baclo fen have been placed on hold temporarily. CT of the brain was negative. The patient is becom ing currently hypomanic/manic. For now, I am going to reintroduce low doses of benzodiazepin es p.r.n. She has previously been taking Zyprexa which is self-reported information. I am go ing to ask for, perhaps, a psychiatric consultation to help in evaluation and perhaps come u p with more beneficial and patient center medication regimen. 2. Rhabdomyolysis, most likely secondary to dehydration and ambulatory immobility over a si gnificant time prior to hospitalization. Continue aggressive normal fluid hydration. Total C K showing significant decline and improvement overnight. Continue to monitor. 3. Acute renal failure secondary to intravascular volume contraction. Continue normal salin e solution. I appreciate Dr. eLe's help and recommendations. Creatinine level has significa ntly improved overnight. 4. Dizziness, most likely secondary to everything described above including intravascular v olume contraction, hypotension, and polypharmacy medication effect. Continue to monitor. Oleg l check orthostatic blood pressure each shift. 5. DVT prophylaxis. Continue subcutaneous heparin. 6. Hypotension, most likely related to intravascular volume contraction. Continue frequent vital signs check. The patient's systolic blood pressure demonstrated progressive incline si nce midnight. Doing much better now. Recreational substance abuse on the outpatient basis. The patient will be eventually counse led on the need to cease this activity as it interferes significantly with other medications which she uses, and these interactions are quite unpredictable at this time, exposing the p atient to risks of significant complications including significant cardiopulmonary emergenci es. Case management consultation for discharge planning including safety evaluation on the outp atient basis with respect to the patient's living conditions. Philip Singh MD 09/20/2013 5:19 PM onversion Transa ction, Provider Unknown - 09/20/2013 3:45 PM PDT Case Management by OG Bailey at 09/20/13 9440 Author: OG Bailey Service: (none) Author Type: Craft Center Director Filed: 09/20/13 0372 Date of Service: 09/20/13 5361 Status: Addendum Cartographic Engineer: OG Bailey (Craft Center Director) Related Notes: Original Note by OG Bailey (Craft Center Director) filed at 09/20/13 3587 09/20/13 1500 Discharge Planning Evaluation Admitting Diagnosis (Altered mental status) Readmission Yes-greater than 30 days Living Arrangements Children Support Systems Parent;Children Type of Residence Private residence House type Apartment Steps to enter 2 Mental Status Oriented Anticipated Discharge Plan Plan communicated to patient/family Yes Resources Financial concerns No Transportation issues No Patient/Family concerns No Met with ptand discussed discharge planning, Pt is a 53 y.o., female. Pt stated that she w ill return to her Mobile Home in [place], [place]. Pt stated that her relative will be transpor ting her home upon DC. Patient's PCP is: G[facility] FULTON Patient's insurance: [employer] Coverage concerns: No Medication coverage/concerns: No Community resources utilized / needed: No Assistance in transportation: Pt stated that her family member will transport her home. Identification of any specific education / training: N/A Barriers to Discharge / Alternative housing needed: N/A Anticipated DCP: Pt will return to her prior living situation in [place], [place] Roslyn Springer Nura Thomas - 09/20/2013 1:04 PM PDTFormatting of this note might be different from the or iginal. Progress Notes by Nura Lee MD at 09/20/13 1301 Author: Nura Lee MD Service: Nephrology Author Type: Physician Filed: 09/20/13 8717 Date of Service: 09/20/13 1304 Status: Signed Cartographic Engineer: Nura Lee MD (Physician) [facility] Service: NEPHROLOGY progress Note Nohemi Espitia 53 y.o. [id number] female [facility] Day: LOS: 1 day The patient is a 53 y.o. female with significant past medical history of Chronic back pain secondary to spinal stenosis, history of depression, hypothyroidism, and hypertension admit kayy with acute renal failure, rhabdomyolysis, dehydration. Nephrology consulted for evaluation and management of ARF Lab Results Component Value Date BUN 20 09/20/2013 BUN 30* 09/19/2013 BUN 10 08/15/2013 BUN 29* 06/24/2013 CREATININE 1.14* 09/20/2013 CREATININE 2.26* 09/19/2013 CREATININE 0.66 08/15/2013 CREATININE 0.92 06/24/2013 ONSET ACUTE severity SEVERE Associated with fluid electrolyte acid base imbalances RF: DECREASE PO INTAKE/ LOW BP/ HEMODYNAMIC EFFECT OF LISINOPRIL/ RHABDOMYOLYSIS Pateint seen and examined Says feel weak , more awake and alert but confused, c/o pain in back/ shoulder asks for yun n meds Denies cp, sob, nausea, vomiting, diarrhea, fever, headache, rash Past Medical History Diagnosis Date Anxiety Hypertension Thyroid disease Depression Past Surgical History Procedure Date Hysterectomy Cholecystectomy Appendectomy Bladder surgery [facility] [place] 07/14/2013 [facility] [place] 08/06/2013 Prescriptions prior to admission Medication Sig Dispense Refill albuterol (PROVENTIL) (2.5 MG/3ML) 0.083% nebulizer solution Take 6 mLs by nebulization every 6 (six) hours as needed for Wheezing. 20 vial 1 baclofen (LIORESAL) 10 MG tablet Take 1-2 tabs po q 8hrs as needed for muscle spasm and tightness 75 tablet 0 ergocalciferol (DRISDOL) 07062 UNITS capsule Take 1 capsule by mouth [...] 1 gabapentin (NEURONTIN) 300 MG capsule Take 600 mg by mouth nightly. guaifenesin-codeine (ROBITUSSIN-CODEINE) 100-10 MG/5ML syrup Take 10 mLs by mouth 3 (th ree) times daily as needed for Cough. 120 mL 0 hydrALAZINE (APRESOLINE) 25 MG tablet Take 1-2 tablets PO every 8 hours as needed for a nxiety 90 tablet 11 ipratropium-albuterol (COMBIVENT) 18-103 MCG/ACT inhaler Inhale 2 [...] 6 (six) hours as needed for Anxiety. 30 tablet 0 methocarbamol (ROBAXIN) 750 MG tablet take 1 tablet by mouth three times a day if neede d 75 tablet 0 OLANZapine (ZYPREXA) 10 MG tablet Take 1 tablet by mouth nightly. 90 tablet 3 oxyCODONE-acetaminophen (PERCOCET) 10-325 MG per tablet Take 1 tablet by mouth every 3 (three) hours as needed for Pain. 150 tablet 0 ranitidine (ZANTAC) 150 MG tablet Take 1 tablet by mouth 2 (two) times daily. 180 tabl et 3 solifenacin (VESICARE) 10 MG tablet Take 1 tablet by mouth daily. 30 tablet 3 Spacer/Aero-Holding Chambers (AEROCHAMBER MV) inhaler For use with inhalers 1 each 0 varenicline (CHANTIX) 1 MG tablet Take 1 tablet by mouth 2 (two) times daily. 60 table t 2 No Known Allergies Family History Problem Relation Age of Onset Breast cancer Sister Skin cancer Sister Ovarian cancer Sister Heart disease Mother Diabetes Father NO FH KIDNEY PROBLEMS. History Social History Marital Status: Significant Other [...] Social History Narrative No narrative on file Scheduled Medications [START ON 09/25/2013] ergocalciferol 50,000 Units Oral Q7 Days heparin (porcine) 5,000 Units Subcutaneous Q12H hydrALAZINE 25 mg Oral Q8H DILIA levothyroxine 25 mcg Oral QAM AC loratadine 10 mg Oral Daily [COMPLETED] pneumococcal 23-valent vaccine 0.5 mL Intramuscular Once Immunization ranitidine 150 mg Oral Daily [COMPLETED] sodium chloride 1,000 mL Intravenous Once sodium chloride 1,000 mL Intravenous Once sodium chloride 1,000 mL Intravenous Once solifenacin 10 mg Oral Daily Continuous Infusions sodium chloride 110 mL/hr at 09/19/13 1652 sodium chloride 150 mL/hr at 09/20/13 0519 PRN Medications acetaminophen, acetaminophen, albuterol, ipratropium-albuterol, naloxone, ondansetron, onda nsetron, polyethylene glycol, zolpidem Allergy: No Known Allergies OBJECTIVE Vital Signs: BP 127/64 | Pulse 79 | Temp 98.2 F (36.8 C) (Oral) | Resp 18 | Ht 1.702 m (5' 7") | Wt 110.451 kg (243 lb 8 oz) | BMI 38.13 kg/m2 | SpO2 98% I&O Detailed Table: I/O last 3 completed shifts: In: 1875 [P.O.:75; I.V.:1800] Out: 1450 [Urine:1450] Weight change: Examination: APPEARANCE: The patient is lying in no apparent distress, AWAKE SLIGHTLY CONFUSED. VITALS: Reviewed as listed. HEAD: NC/AT. EYES: Non-icteric sclera. ENT: Buccal mucosa is MOIST. No gross ear or nasal problems noted. NECK: Supple. No raised JVD LUNGS: Clear to auscultation bilaterally. HEART: S1, S2, no pericardial rub noted. ABDOMEN: Full, soft, no tenderness. Bowel sounds are present. EXTREMITIES: no pedal edema noted. SKIN: Warm to touch. No rash or ecchymosis noted. NEUROLOGIC: No gross focal motor deficit noted. PSYCH: The patient is awake slightly confused. BACK: no CVA tenderness noted +VE ROJAS CATHETER LABS: Recent Results (from the past 24 hour(s)) ED ISTAT TROPONIN Component Value Range POC Troponin I 0.00 [facility] CARD PANEL W/O TRP (ED ONLY) Collection Time 09/19/13 1:20 PM Component Value Range WBC 9.0 3.8 - 11.0 K/uL RBC 3.96 3.70 - 5.10 M/uL HGB 11.9 11.3 - 15.5 g/dL HCT 35.3 34.0 - 46.0 % MCV 89.0 80.0 - 100.0 fl MCH 30.1 27.0 - 34.0 pg MCHC 33.8 32.0 - 35.5 g/dL RDW SD 45.5 37 - 53 fl PLT 443 (*) 150 - 400 K/uL MPV 7.3 DIFF TYPE AUTOMATED NEUTROPHILS 60.4 LYMPHOCYTES 26.9 MONOCYTES 8.0 EOSINOPHILS 4.0 BASOPHILS 0.7 NEUTROPHILS ABS 5.4 1.9 - 7.4 K/uL LYMPHOCYTES ABS 2.4 1.0 - 3.9 K/uL MONOCYTES ABS 0.7 0 - 0.8 K/uL EOSINOPHILS ABS 0.4 0 - 0.5 K/uL BASOPHILS ABS 0.1 0 - 0.1 K/uL SODIUM 141 135 - 143 mmol/L POTASSIUM 4.5 3.5 - 4.9 mmol/L CHLORIDE 110 (*) 99 - 109 mmol/L CO2 20 (*) 23 - 32 mmol/L ANION GAP AGAP 15 5 - 20 mmol/L GLUCOSE 94 65 - 99 mg/dL BUN 30 (*) 8 - 25 mg/dL CREATININE 2.26 (*) 0.50 - 1.00 mg/dL BUN/CREAT 14 CALCIUM 9.5 8.5 - 10.2 mg/dL TOTAL PROTEIN 8.2 6.3 - 8.2 g/dL Albumin 3.3 (*) 3.6 - 5.0 g/dL GLOBULIN 4.9 1.3 - 4.9 g/dL A/G 0.7 (*) 1.0 - 2.4 TBIL 0.2 0.1 - 1.5 mg/dL ALK PHOS 108 35 - 115 U/L AST 153 (*) 10 - 45 U/L ALT 74 (*) 10 - 65 U/L EGFR 24 (*) >60 mL/min/1.73m2 CPK 3032 (*) 30 - 240 U/L INR 1.0 APTT 23 23 - 32 seconds MMB 53.7 (*) 0.5 - 3.6 ng/mL CK-MB Index 1.8 C-REACTIVE PROTEIN Collection Time 09/19/13 1:20 PM Component Value Range CRP 3.4 (*) <0.5 mg/dL AMMONIA Collection Time 09/19/13 1:20 PM Component Value Range AMMONIA 30 <33 umol/L TSH Collection Time 09/19/13 1:20 PM Component Value Range TSH 0.61 0.45 - 5.10 uIU/mL T4, FREE Collection Time 09/19/13 1:20 PM Component Value Range FREE T4 1.1 0.7 - 1.5 ng/dL ETHANOL Collection Time 09/19/13 1:20 PM Component Value Range ALCOHOL,ETHYL <3 <10 mg/dL POC CARDIAC TROPONIN Collection Time 09/19/13 1:26 PM Component Value Range POC CARDIAC TROPONIN 0.00 0.00 - 0.10 ng/mL POC CLINITEK 10 Collection Time 09/19/13 2:19 PM Component Value Range Color, UA YELLOW Clarity, UA CLEAR Glucose, UA NEGATIVE NEGATIVE mg/dL Bilirubin, UA NEGATIVE NEGATIVE Ketones, UA NEGATIVE NEGATIVE mg/dL Spec Grav, UA 1.020 1.001 - 1.035 Blood, UA TRACE (*) NEGATIVE pH, UA 6.0 4.6 - 8.0 Protein, UA 30 (*) NEGATIVE mg/dL Urobilinogen, UA 0.2 <1.1 mg/dL Nitrite, UA NEGATIVE NEGATIVE WBC, UA NEGATIVE NEGATIVE DRUGS OF ABUSE SCREEN,UR (HOSPTIAL USE ONLY) Collection Time 09/19/13 2:28 PM Component Value Range AMPHETAMINE/METHAMPHETAMINE NEGATIVE NEGATIVE BARBITUATES NEGATIVE NEGATIVE BENZODIAZEPINE NEGATIVE NEGATIVE COCAINE NEGATIVE NEGATIVE METHADONE NEGATIVE NEGATIVE OPIATES NEGATIVE NEGATIVE PCP NEGATIVE NEGATIVE THC POSITIVE (*) NEGATIVE MYOGLOBIN, URINE Collection Time 09/19/13 2:28 PM Component Value Range MYOGLOBIN SCREEN NEGATIVE URINE MICROSCOPIC ONLY Collection Time 09/19/13 2:29 PM Component Value Range WBC 0-2 0 - 5 /hpf RBC 0-2 0 - 5 /hpf EPITHELIAL 6-10 BACTERIA TRACE (*) NONE SEEN Casts 11-15 POC ARTERIAL BLOOD GAS Collection Time 09/19/13 5:11 PM Component Value Range POC FIO2 21 pH, Art 7.332 (*) 7.350 - 7.450 POC PCO2 41 35 - 45 mmHg POC p02 73 (*) 80 - 105 mmHg POC HCO3 22 22 - 26 mmol/L POC TCO2 23 23 - 27 mEq/L POC BASE DEFICIT 4 (*) 0.0 - 2.0 mmol/L POC S02 93 (*) 95 - 98 % SODIUM, URINE, RANDOM Collection Time 09/19/13 7:57 PM Component Value Range UR SODIUM,RANDOM 39 (*) 90 - 104 mmol/L URINE EOSINOPHILS Collection Time 09/19/13 7:57 PM Component Value Range URINE EOSINOPHILS NO EOSINOPHILS SEEN <1 % BASIC METABOLIC PANEL Collection Time 09/20/13 5:40 AM Component Value Range SODIUM 139 135 - 143 mmol/L POTASSIUM 3.9 3.5 - 4.9 mmol/L CHLORIDE 114 (*) 99 - 109 mmol/L CO2 21 (*) 23 - 32 mmol/L ANION GAP AGAP 8 5 - 20 mmol/L GLUCOSE 67 65 - 99 mg/dL BUN 20 8 - 25 mg/dL CREATININE 1.14 (*) 0.50 - 1.00 mg/dL BUN/CREAT 18 CALCIUM 8.5 8.5 - 10.2 mg/dL EGFR 53 (*) >60 mL/min/1.73m2 C3 AND C4 COMPLEMENT Collection Time 09/20/13 5:40 AM Component Value Range COMPLEMENT C3 129 90 - 180 mg/dL COMPLEMENT C4 22.6 10 - 40 mg/dL CBC W/AUTO DIFF (REFLEX TO MANUAL) Collection Time 09/20/13 5:40 AM Component Value Range WBC 10.1 3.8 - 11.0 K/uL RBC 3.63 (*) 3.70 - 5.10 M/uL HGB 11.2 (*) 11.3 - 15.5 g/dL HCT 33.3 (*) 34.0 - 46.0 % MCV 91.9 80.0 - 100.0 fl MCH 30.8 27.0 - 34.0 pg MCHC 33.5 32.0 - 35.5 g/dL RDW SD 45.5 37 - 53 fl PLT 362 150 - 400 K/uL MPV 7.5 DIFF TYPE AUTOMATED NEUTROPHILS 63.7 LYMPHOCYTES 26.8 MONOCYTES 6.0 EOSINOPHILS 3.0 BASOPHILS 0.5 NEUTROPHILS ABS 6.4 1.9 - 7.4 K/uL LYMPHOCYTES ABS 2.7 1.0 - 3.9 K/uL MONOCYTES ABS 0.6 0 - 0.8 K/uL EOSINOPHILS ABS 0.3 0 - 0.5 K/uL BASOPHILS ABS 0.0 0 - 0.1 K/uL CK Collection Time 09/20/13 5:40 AM Component Value Range CPK 1383 (*) 30 - 240 U/L MAGNESIUM Collection Time 09/20/13 5:40 AM Component Value Range MAGNESIUM 1.9 1.7 - 2.4 mg/dL HEPATIC FUNCTION PANEL Collection Time 09/20/13 5:40 AM Component Value Range TOTAL PROTEIN 6.5 6.3 - 8.2 g/dL Albumin 3.1 (*) 3.6 - 5.0 g/dL TBIL 0.3 0.1 - 1.5 mg/dL BILI, DIRECT 0.1 0.0 - 0.3 mg/dL ALK PHOS 67 35 - 115 U/L AST 93 (*) 10 - 45 U/L ALT 50 10 - 65 U/L PHOSPHOROUS Collection Time 09/20/13 5:40 AM Component Value Range PHOSPHORUS 2.6 2.3 - 4.8 mg/dL IMAGING: Ct Head Non-con 09/19/[address] HEAD WO CONTRAST HISTORY: 53 years. Female. Altered mental status. TECHNIQUE: CT examination the head was performed without contrast. COMPARISON: Non e. FINDINGS: No abnormal areas of increased or decreased density seen throughout the brain. No mass, hemorrhage, midline shift, or extra-axial fluid collection. 09/19/[address] head without contrast. Patient's old records and labs were reviewed in detail and summarized. PROBLEM LIST Active Problems: Altered mental status Rhabdomyolysis Polypharmacy Marijuana abuse Dizziness and giddiness Hypotension, unspecified Back ache ARF (acute renal failure) Acidosis ASSESSMENT & PLAN ARF LIKELY SECONDARY TO Renal hypoperfusion IN THE SETTING OF DECREASE PO INTAKE/ LOW BP/ HEMOD YNAMIC EFFECT OF LISINOPRIL/ RHABDOMYOLYSIS RULED OUT HYDRONEPHROSIS PER US RENAL REVIEWED Lab Results Component Value Date BUN 20 09/20/2013 BUN 30* 09/19/2013 BUN 10 08/15/2013 BUN 29* 06/24/2013 CREATININE 1.14* 09/20/2013 CREATININE 2.26* 09/19/2013 CREATININE 0.66 08/15/2013 CREATININE 0.92 06/24/2013 IV FLUIDS decrease iv fluids 100 mls/hr Hold CHRIS-I LISNOPRIL KEEP MAP GREATER THAN 65 MM HG Urine studies REVIEWED C3, C4 levels WNL Strict I & O, Daily weights Daily RFP Renal diet AVOID NSAIDS/ MARTINEZ-2 INHIBITORS AVOID NEPHROTOXIC MEDS INCLUDING AMINOGLYCOSIDES/ IV CONTRAST Dose all meds for crcl less than 30 mls/min Discontinue rojas catheter HYPOTENSION IMPROVED KEEP MAP GREATER THAN 65 MM HG BP Readings from Last 3 Encounters: 09/20/13 127/64 09/18/13 98/60 08/07/13 110/68 RHABDOMYOLYSIS IMPROVING CPK 3032 IV FLUIDS ACIDOSIS: IMPROVING LIKELY SECONDARY TO ARF WATCH CLOSELY FOR NOW Lab Results Component Value Date CO2 21* 09/20/2013 CO2 20* 09/19/2013 CO2 27 06/24/2013 ALTERED MS IMPROVING C HEAD NEGATIVE, U.TOX +VE FOR THC PER HOSPITALIST CASE DISCUSSED IN DETAIL WITH PATIENT/ HOSPITALIST, ANSWERS ALL QUESTIONS IN DETAIL, JULIUS GALEANO UNDERSTANDING NURA LEE MD 09/20/2013 [place] onversion Transactio n, Provider Unknown - 09/19/2013 6:37 PM PDT Progress Notes by Marce Garcia RPH at 09/19/131836 Author: Marce Garcia RPH Service: (none) Author Type: Pharmacist Filed: 09/19/131836 Date of Service: 09/19/131836 Status: Signed Cartographic Engineer: Marce Garcia RPH (Pharmacist) Clinical Pharmacy Note: Renal Monitoring Nohemi Espitia 53 y.o. female Ht Readings from Last 1 Encounters: 09/19/13 1.702 m (5' 7") Wt Readings from Last 1 Encounters: 09/19/13 107.049 kg (236 lb) CREATININE: 2.26 mg/dL ABNORMAL (09/19/13 1320) Estimated creatinine clearance - Cockcroft-Gault CrCl: 36.3 mL/min Pharmacy dosing for renal function per Dr. Berg. Will order the following dosage adjustments: Ranitidine 150 mg po Q24h Pharmacy will continue to monitor for changes in medication orders and in renal function an d adjust accordingly. Marce Garcia RPh 09/19/2013 6:37 PM docume nted in this encounter Plan of Treatment +--------+---------+ + + + | Date | Type | Specialty | Care Team | Description | +--------+---------+ + + + | 11/09/ | Office | Neurosurgery | Jose Gonzalez DO | | | 2019 | Visit | | [address] | | | | | | [place] [address] | | | | | | [phone] | | | | | | | | +--------+---------+ + + + documented as of this encounter Procedures + +--------+ + + + | Procedure Name | Priori | Date/Time | Associated Diagnosis | Comments | | | ty | | | | + +--------+ + + + | EXTERNAL LAB: CBC | Routin | 09/21/2013 | | Results for this | | | e | 4:40 AM | | procedure are in the | | | | PDT | | results section. | + +--------+ + + + | MAGNESIUM | Routin | 09/21/2013 | | Results for this | | | e | 4:40 AM | | procedure are in the | | | | PDT | | results section. | + +--------+ + + + | CK TOTAL | Routin | 09/21/2013 | | Results for this | | | e | 4:40 AM | | procedure are in the | | | | PDT | | results section. | + +--------+ + + + | RENAL FUNCTION PANEL | Routin | 09/21/2013 | | Results for this | | | e | 4:40 AM | | procedure are in the | | | | PDT | | results section. | + +--------+ + + + | EXTERNAL LAB: CBC | Routin | 09/20/2013 | | Results for this | | | e | 5:40 AM | | procedure are in the | | | | PDT | | results section. | + +--------+ + + + | C3 AND C4 | Routin | 09/20/2013 | | Results for this | | | e | 5:40 AM | | procedure are in the | | | | PDT | | results section. | + +--------+ + + + | PHOSPHORUS | Routin | 09/20/2013 | | Results for this | | | e | 5:40 AM | | procedure are in the | | | | PDT | | results section. | + +--------+ + + + | MAGNESIUM | Routin | 09/20/2013 | | Results for this | | | e | 5:40 AM | | procedure are in the | | | | PDT | | results section. | + +--------+ + + + | CK TOTAL | Routin | 09/20/2013 | | Results for this | | | e | 5:40 AM | | procedure are in the | | | | PDT | | results section. | + +--------+ + + + | HEPATIC FUNCTION | Routin | 09/20/2013 | | Results for this | | PANEL | e | 5:40 AM | | procedure are in the | | | | PDT | | results section. | + +--------+ + + + | BASIC METABOLIC | Routin | 09/20/2013 | | Results for this | | PANEL | e | 5:40 AM | | procedure are in the | | | | PDT | | results section. | + +--------+ + + + | EOSINOPHIL SMEAR, | Routin | 09/19/2013 | | Results for this | | URINE | e | 7:57 PM | | procedure are in the | | | | PDT | | results section. | + +--------+ + + + | SODIUM, URINE, | Routin | 09/19/2013 | | Results for this | | RANDOM | e | 7:57 PM | | procedure are in the | | | | PDT | | results section. | + +--------+ + + + | XR CHEST 1 VIEW | Routin | 09/19/2013 | | Results for this | | | e | 5:07 PM | | procedure are in the | | | | PDT | | results section. | + +--------+ + + + | CULTURE, BLOOD, 2ND | STAT | 09/19/2013 | | Results for this | | SPECIMEN (NON-ORD) | | 3:49 PM | | procedure are in the | | | | PDT | | results section. | + +--------+ + + + | CULTURE, BLOOD | STAT | 09/19/2013 | | Results for this | | | | 3:48 PM | | procedure are in the | | | | PDT | | results section. | + +--------+ + + + | CT HEAD WO CONTRAST | Routin | 09/19/2013 | | Results for this | | | e | 3:05 PM | | procedure are in the | | | | PDT | | results section. | + +--------+ + + + | URINALYSIS, | Routin | 09/19/2013 | | Results for this | | MICROSCOPIC ONLY | e | 2:29 PM | | procedure are in the | | | | PDT | | results section. | + +--------+ + + + | CULTURE, URINE | STAT | 09/19/2013 | | Results for this | | | | 2:29 PM | | procedure are in the | | | | PDT | | results section. | + +--------+ + + + | DRUGS OF ABUSE | Routin | 09/19/2013 | | Results for this | | SCREEN, URINE (H) | e | 2:28 PM | | procedure are in the | | | | PDT | | results section. | + +--------+ + + + | MYOGLOBIN, URINE | Routin | 09/19/2013 | | Results for this | | | e | 2:28 PM | | procedure are in the | | | | PDT | | results section. | + +--------+ + + + | HISTORICAL LAB PANEL | Routin | 09/19/2013 | | Results for this | | RESULT | e | 1:20 PM | | procedure are in the | | | | PDT | | results section. | + +--------+ + + + | C-REACTIVE PROTEIN | Routin | 09/19/2013 | | Results for this | | | e | 1:20 PM | | procedure are in the | | | | PDT | | results section. | + +--------+ + + + | TSH | Routin | 09/19/2013 | | Results for this | | | e | 1:20 PM | | procedure are in the | | | | PDT | | results section. | + +--------+ + + + | T4, FREE | Routin | 09/19/2013 | | Results for this | | | e | 1:20 PM | | procedure are in the | | | | PDT | | results section. | + +--------+ + + + | AMMONIA | Routin | 09/19/2013 | | Results for this | | | e | 1:20 PM | | procedure are in the | | | | PDT | | results section. | + +--------+ + + + | ALCOHOL | Routin | 09/19/2013 | | Results for this | | | e | 1:20 PM | | procedure are in the | | | | PDT | | results section. | + +--------+ + + + | ECG 12 LEAD | Routin | 09/19/2013 | | Results for this | | | e | 12:58 PM | | procedure are in the | | | | PDT | | results section. | + +--------+ + + + documented in this encounter Results External Lab: CBC (09/21/2013 4:40 AM PDT) + + + + + + | Component | Value | Ref Range | Performed | Pathologist | | | | | At | Signature | + + + + + + | WBC | 6.2Comment: Testing | 3.8 - 11.0 K/uL | EXTERNAL | | | | performed at [facility], [address] | | LAB | | | | [address], | | | | | | [place] [address] | | | | + + + + + + | Red Blood | 3.63 (L)Comment: Testing | 3.70 - 5.10 | EXTERNAL | | | Cells | performed at [facility], [address] | M/uL | LAB | | | Counted | [address], | | | | | | [place] [address] | | | | + + + + + + | Hemoglobin | 10.9 (L)Comment: Testing | 11.3 - 15.5 | EXTERNAL | | | | performed at [facility], [address] | g/dL | LAB | | | | [address], | | | | | | [place] [address] | | | | + + + + + + | Hematocrit, | 33.2 (L)Comment: Testing | 34.0 - 46.0 % | EXTERNAL | | | POC | performed at [facility], [address] | | LAB | | | | [address], | | | | | | [place] [address] | | | | + + + + + + | MCV | 91.6Comment: Testing | 80.0 - 100.0 fl | EXTERNAL | | | | performed at [facility], [address] | | LAB | | | | [address], | | | | | | [place] [address] | | | | + + + + + + | MCH | 30.1Comment: Testing | 27.0 - 34.0 pg | EXTERNAL | | | | performed at [facility], [address] | | LAB | | | | [address], | | | | | | [place] [address] | | | | + + + + + + | MCHC | 32.9Comment: Testing | 32.0 - 35.5 | EXTERNAL | | | | performed at [facility], [address] | g/dL | LAB | | | | [address], | | | | | | [place] [address] | | | | + + + + + + | RDW-CV | 45.9Comment: Testing | 37 - 53 fl | EXTERNAL | | | | performed at [facility], [address] | | LAB | | | | [address], | | | | | | [place] [address] | | | | + + + + + + | Platelet | 314Comment: Testing | 150 - 400 K/uL | EXTERNAL | | | Count | performed at [facility], [address] | | LAB | | | Plasma | [address], | | | | | | [place] [address] | | | | + + + + + + | MPV | 7.5Comment: Testing | fl | EXTERNAL | | | | performed at [facility], [address] | | LAB | | | | [address], | | | | | | [place] [address] | | | | + + + + + + | Differentia | AUTOMATEDComment: | | EXTERNAL | | | l Type | Testing performed at | | LAB | | | | [facility], [address] | | | | | | [place] | | | | | | [address] | | | | + + + + + + | % Segmented | 39.7Comment: Testing | % | EXTERNAL | | | | performed at [facility], [address] | | LAB | | | Neutrophils | [address], | | | | | | [place] [address] | | | | + + + + + + | % | 48.1Comment: Testing | % | EXTERNAL | | | Lymphocytes | performed at [facility], [address] | | LAB | | | | [address], | | | | | | [place] [address] | | | | + + + + + + | % Monocytes | 6.6Comment: Testing | % | EXTERNAL | | | | performed at [facility], [address] | | LAB | | | | [address], | | | | | | [place] [address] | | | | + + + + + + | % | 5.3Comment: Testing | % | EXTERNAL | | | Eosinophils | performed at [facility], [address] | | LAB | | | | [address], | | | | | | [place] [address] | | | | + + + + + + | % Basophils | 0.3Comment: Testing | % | EXTERNAL | | | | performed at [facility], [address] | | LAB | | | | [address], | | | | | | [place] [address] | | | | + + + + + + | Absolute | 2.5Comment: Testing | 1.9 - 7.4 K/uL | EXTERNAL | | | Segmented | performed at [facility], [address] | | LAB | | | Neutrophils | [address], | | | | | | [place] [address] | | | | + + + + + + | Absolute | 3.0Comment: Testing | 1.0 - 3.9 K/uL | EXTERNAL | | | Lymphocytes | performed at [facility], [address] | | LAB | | | | [address], | | | | | | [place] [address] | | | | + + + + + + | Absolute | 0.4Comment: Testing | 0 - 0.8 K/uL | EXTERNAL | | | Monocytes | performed at [facility], [address] | | LAB | | | | [address], | | | | | | [place] [address] | | | | + + + + + + | Absolute | 0.3Comment: Testing | 0 - 0.5 K/uL | EXTERNAL | | | Eosinophils | performed at [facility], [address] | | LAB | | | | [address], | | | | | | [place] [address] | | | | + + + + + + | Absolute | 0.0Comment: Testing | 0 - 0.1 K/uL | EXTERNAL | | | Basophils | performed at [facility], [address] | | LAB | | | | [address], | | | | | | [place] [address] | | | | + + + + + + + + | Specimen | + + | Blood specimen | | (specimen) | + + + +---------+ + + | Performing | Address | City/State/Zipcode | Phone Number | | Organization | | | | + +---------+ + + | EXTERNAL LAB | | | | + +---------+ + + Magnesium (09/21/2013 4:40 AM PDT) + + + + + + | Component | Value | Ref Range | Performed | Pathologist | | | | | At | Signature | + + + + + + | Magnesium | 1.8Comment: Testing | 1.7 - 2.4 mg/dL | EXTERNAL | | | | performed at [facility], [address] | | LAB | | | | [address], | | | | | | [place] [address] | | | | + + + + + + + + | Specimen | + + | Blood specimen | | (specimen) | + + + +---------+ + + | Performing | Address | City/State/Zipcode | Phone Number | | Organization | | | | + +---------+ + + | EXTERNAL LAB | | | | + +---------+ + + CK Total (09/21/2013 4:40 AM PDT) + + + + + + | Component | Value | Ref Range | Performed | Pathologist | | | | | At | Signature | + + + + + + | CK, Total | 519 (H)Comment: Testing | 30 - 240 U/L | EXTERNAL | | | | performed at [facility];[address] | | LAB | | | | [address];[place] | | | | | | [address] | | | | + + + + + + + + | Specimen | + + | Blood specimen | | (specimen) | + + + +---------+ + + | Performing | Address | City/State/Zipcode | Phone Number | | Organization | | | | + +---------+ + + | EXTERNAL LAB | | | | + +---------+ + + Renal Function Panel (09/21/2013 4:40 AM PDT) + + + + + + | Component | Value | Ref Range | Performed | Pathologist | | | | | At | Signature | + + + + + + | Na | 140Comment: Testing | 135 - 143 | EXTERNAL | | | | performed at [facility], [address] | mmol/L | LAB | | | | [address], | | | | | | [place] [address] | | | | + + + + + + | K | 4.2Comment: Testing | 3.5 - 4.9 | EXTERNAL | | | | performed at [facility], [address] | mmol/L | LAB | | | | [address], | | | | | | [place] [address] | | | | + + + + + + | Cl | 114 (H)Comment: Testing | 99 - 109 mmol/L | EXTERNAL | | | | performed at [facility], [address] | | LAB | | | | [address], | | | | | | [place] [address] | | | | + + + + + + | CO2 | 21 (L)Comment: Testing | 23 - 32 mmol/L | EXTERNAL | | | | performed at [facility], [address] | | LAB | | | | [address], | | | | | | [place] [address] | | | | + + + + + + | Anion Gap | 9Comment: Testing | 5 - 20 mmol/L | EXTERNAL | | | | performed at [facility], [address] | | LAB | | | | [address], | | | | | | [place] [address] | | | | + + + + + + | Glucose, | 88Comment: Testing | 65 - 99 mg/dL | EXTERNAL | | | Fasting | performed at [facility], [address] | | LAB | | | | [address], | | | | | | [place] [address] | | | | + + + + + + | BUN | 15Comment: Testing | 8 - 25 mg/dL | EXTERNAL | | | | performed at [facility], [address] | | LAB | | | | [address], | | | | | | [place] [address] | | | | + + + + + + | Creatinine | 0.90Comment: Testing | 0.50 - 1.00 | EXTERNAL | | | | performed at [facility], [address] | mg/dL | LAB | | | | [address], | | | | | | [place] [address] | | | | + + + + + + | Calcium | 8.5Comment: Testing | 8.5 - 10.2 | EXTERNAL | | | | performed at [facility], [address] | mg/dL | LAB | | | | [address], | | | | | | [place] [address] | | | | + + + + + + | Albumin | 2.9 (L)Comment: Testing | 3.6 - 5.0 g/dL | EXTERNAL | | | | performed at [facility], [address] | | LAB | | | | [address], | | | | | | [place] [address] | | | | + + + + + + | PHOSPHORUS | 3.0Comment: Testing | 2.3 - 4.8 mg/dL | EXTERNAL | | | | performed at [facility], [address] | | LAB | | | | [address], | | | | | | [place] [address] | | | | + + + [...] | | | | | | at [facility], [address] | | | | | | [address], | | | | | | [place] [address] | | | | + + + + + + + + | Specimen | + + | | + + + +---------+ + + | Performing | Address | City/State/Zipcode | Phone Number | | Organization | | | | + +---------+ + + | EXTERNAL LAB | | | | + +---------+ + + C3 and C4 (09/20/2013 5:40 AM PDT) + + + + + + | Component | Value | Ref Range | Performed | Pathologist | | | | | At | Signature | + + + + + + | C3 | 129Comment: Testing | 90 - 180 mg/dL | EXTERNAL | | | COMPLEMENT | performed at [facility], [address] | | LAB | | | | [address], | | | | | | [place] [address] | | | | + + + + + + | Complement | 22.6Comment: Testing | 10 - 40 mg/dL | EXTERNAL | | | Comp 4 | performed at [facility], [address] | | LAB | | | | [address], | | | | | | [place] [address] | | | | + + + + + + + + | Specimen | + + | | + + + +---------+ + + | Performing | Address | City/State/Zipcode | Phone Number | | Organization | | | | + +---------+ + + | EXTERNAL LAB | | | | + +---------+ + + External Lab: CBC (09/20/2013 5:40 AM PDT) + + + + + + | Component | Value | Ref Range | Performed | Pathologist | | | | | At | Signature | + + + + + + | WBC | 10.1Comment: Testing | 3.8 - 11.0 K/uL | EXTERNAL | | | | performed at [facility], [address] | | LAB | | | | [address], | | | | | | [place] [address] | | | | + + + + + + | Red Blood | 3.63 (L)Comment: Testing | 3.70 - 5.10 | EXTERNAL | | | Cells | performed at [facility], [address] | M/uL | LAB | | | Counted | [address], | | | | | | [place] [address] | | | | + + + + + + | Hemoglobin | 11.2 (L)Comment: Testing | 11.3 - 15.5 | EXTERNAL | | | | performed at [facility], [address] | g/dL | LAB | | | | [address], | | | | | | [place] [address] | | | | + + + + + + | Hematocrit, | 33.3 (L)Comment: Testing | 34.0 - 46.0 % | EXTERNAL | | | POC | performed at [facility], [address] | | LAB | | | | [address], | | | | | | [place] [address] | | | | + + + + + + | MCV | 91.9Comment: Testing | 80.0 - 100.0 fl | EXTERNAL | | | | performed at [facility], [address] | | LAB | | | | [address], | | | | | | [place] [address] | | | | + + + + + + | MCH | 30.8Comment: Testing | 27.0 - 34.0 pg | EXTERNAL | | | | performed at [facility], [address] | | LAB | | | | [address], | | | | | | [place] [address] | | | | + + + + + + | MCHC | 33.5Comment: Testing | 32.0 - 35.5 | EXTERNAL | | | | performed at [facility], [address] | g/dL | LAB | | | | [address], | | | | | | [place] [address] | | | | + + + + + + | RDW-CV | 45.5Comment: Testing | 37 - 53 fl | EXTERNAL | | | | performed at [facility], [address] | | LAB | | | | [address], | | | | | | [place] [address] | | | | + + + + + + | Platelet | 362Comment: Testing | 150 - 400 K/uL | EXTERNAL | | | Count | performed at [facility], [address] | | LAB | | | Plasma | [address], | | | | | | [place] [address] | | | | + + + + + + | MPV | 7.5Comment: Testing | fl | EXTERNAL | | | | performed at [facility], [address] | | LAB | | | | [address], | | | | | | [place] [address] | | | | + + + + + + | Differentia | AUTOMATEDComment: | | EXTERNAL | | | l Type | Testing performed at | | LAB | | | | [facility], [address] | | | | | | [place] | | | | | | [address] | | | | + + + + + + | % Segmented | 63.7Comment: Testing | % | EXTERNAL | | | | performed at [facility], [address] | | LAB | | | Neutrophils | [address], | | | | | | [place] [address] | | | | + + + + + + | % | 26.8Comment: Testing | % | EXTERNAL | | | Lymphocytes | performed at [facility], [address] | | LAB | | | | [address], | | | | | | [place] [address] | | | | + + + + + + | % Monocytes | 6.0Comment: Testing | % | EXTERNAL | | | | performed at [facility], [address] | | LAB | | | | [address], | | | | | | [place] [address] | | | | + + + + + + | % | 3.0Comment: Testing | % | EXTERNAL | | | Eosinophils | performed at [facility], [address] | | LAB | | | | [address], | | | | | | [place] [address] | | | | + + + + + + | % Basophils | 0.5Comment: Testing | % | EXTERNAL | | | | performed at [facility], [address] | | LAB | | | | [address], | | | | | | [place] [address] | | | | + + + + + + | Absolute | 6.4Comment: Testing | 1.9 - 7.4 K/uL | EXTERNAL | | | Segmented | performed at [facility], [address] | | LAB | | | Neutrophils | [address], | | | | | | [place] [address] | | | | + + + + + + | Absolute | 2.7Comment: Testing | 1.0 - 3.9 K/uL | EXTERNAL | | | Lymphocytes | performed at [facility], [address] | | LAB | | | | [address], | | | | | | [place] [address] | | | | + + + + + + | Absolute | 0.6Comment: Testing | 0 - 0.8 K/uL | EXTERNAL | | | Monocytes | performed at [facility], [address] | | LAB | | | | [address], | | | | | | [place] [address] | | | | + + + + + + | Absolute | 0.3Comment: Testing | 0 - 0.5 K/uL | EXTERNAL | | | Eosinophils | performed at [facility], [address] | | LAB | | | [address], | | | | | | [place] [address] | | | | + + + + + + | Absolute | 0.0Comment: Testing | 0 - 0.1 K/uL | EXTERNAL | | | Basophils | performed at [facility], [address] | | LAB | | | | [address], | | | | | | [place] [address] | | | | + + + + + + + + | Specimen | + + | Blood specimen | | (specimen) | + + + +---------+ + + | Performing | Address | City/State/Zipcode | Phone Number | | Organization | | | | + +---------+ + + | EXTERNAL LAB | | | | + +---------+ + + Phosphorus (09/20/2013 5:40 AM PDT) + + + + + + | Component | Value | Ref Range | Performed | Pathologist | | | | | At | Signature | + + + + + + | PHOSPHORUS | 2.6Comment: Testing | 2.3 - 4.8 mg/dL | EXTERNAL | | | | performed at [facility], [address] | | LAB | | | | [address], | | | | | | [place] [address] | | | | + + + + + + + + | Specimen | + + | | + + + +---------+ + + | Performing | Address | City/State/Zipcode | Phone Number | | Organization | | | | + +---------+ + + | EXTERNAL LAB | | | | + +---------+ + + Magnesium (09/20/2013 5:40 AM PDT) + + + + + + | Component | Value | Ref Range | Performed | Pathologist | | | | | At | Signature | + + + + + + | Magnesium | 1.9Comment: Testing | 1.7 - 2.4 mg/dL | EXTERNAL | | | | performed at [facility], [address] | | LAB | | | | [address], | | | | | | [place] [address] | | | | + + + + + + + + | Specimen | + + | Blood specimen | | (specimen) | + + + +---------+ + + | Performing | Address | City/State/Zipcode | Phone Number | | Organization | | | | + +---------+ + + | EXTERNAL LAB | | | | + +---------+ + + CK Total (09/20/2013 5:40 AM PDT) + + + + + + | Component | Value | Ref Range | Performed | Pathologist | | | | | At | Signature | + + + + + + | CK, Total | 1383 (H)Comment: Testing | 30 - 240 U/L | EXTERNAL | | | | performed at [facility];[address] | | LAB | | | | [address];[place] | | | | | | [id number] | | | | + + + [...] + +---------+ + + Hepatic Function Panel (09/20/2013 5:40 AM PDT) + + + + + + | Component | Value | Ref Range | Performed | Pathologist | | | | | At | Signature | + + + + + + | Protein, | 6.5Comment: Testing | 6.3 - 8.2 g/dL | EXTERNAL | | | Total | performed at [facility], [address] | | LAB | | | | [address], | | | | | | [place] [address] | | | | + + + + + + | Albumin | 3.1 (L)Comment: Testing | 3.6 - 5.0 g/dL | EXTERNAL | | | | performed at [facility], [address] | | LAB | | | | [address], | | | | | | [place] [address] | | | | + + + + + + | Bilirubin | 0.3Comment: Testing | 0.1 - 1.5 mg/dL | EXTERNAL | | | Total | performed at [facility], [address] | | LAB | | | | [address], | | | | | | [place] [address] | | | | + + + + + + | Bilirubin | 0.1Comment: Testing | 0.0 - 0.3 mg/dL | EXTERNAL | | | Direct | performed at [facility], [address] | | LAB | | | | [address], | | | | | | [place] [address] | | | | + + + + + + | ALP, | 67Comment: Testing | 35 - 115 U/L | EXTERNAL | | | External | performed at [facility], [address] | | LAB | | | | [address], | | | | | | [place] [address] | | | | + + + + + + | AST | 93 (H)Comment: Testing | 10 - 45 U/L | EXTERNAL | | | | performed at [facility], [address] | | LAB | | | | [address], | | | | | | [place] [address] | | | | + + + + + + | ALT | 50Comment: Testing | 10 - 65 U/L | EXTERNAL | | | | performed at [facility], [address] | | LAB | | | | [address], | | | | | | [place] [address] | | | | + + + + + + + + | Specimen | + + | | + + + +---------+ + + | Performing | Address | City/State/Zipcode | Phone Number | | Organization | | | | + +---------+ + + | EXTERNAL LAB | | | | + +---------+ + + Basic Metabolic Panel (09/20/2013 5:40 AM PDT) + + + + + + | Component | Value | Ref Range | Performed | Pathologist | | | | | At | Signature | + + + + + + | Na | 139Comment: Testing | 135 - 143 | EXTERNAL | | | | performed at [facility], [address] | mmol/L | LAB | | | | [address], | | | | | | [place] [address] | | | | + + + + + + | K | 3.9Comment: Testing | 3.5 - 4.9 | EXTERNAL | | | | performed at [facility], [address] | mmol/L | LAB | | | | [address], | | | | | | [place] [address] | | | | + + + + + + | Cl | 114 (H)Comment: Testing | 99 - 109 mmol/L | EXTERNAL | | | | performed at [facility], [address] | | LAB | | | | [address], | | | | | | [place] [address] | | | | + + + + + + | CO2 | 21 (L)Comment: Testing | 23 - 32 mmol/L | EXTERNAL | | | | performed at [facility], [address] | | LAB | | | | [address], | | | | | | [place] [address] | | | | + + + + + + | Anion Gap | 8Comment: Testing | 5 - 20 mmol/L | EXTERNAL | | | | performed at [facility], [address] | | LAB | | | | [address], | | | | | | [place] [address] | | | | + + + + + + | Glucose, | 67Comment: Testing | 65 - 99 mg/dL | EXTERNAL | | | Fasting | performed at [facility], [address] | | LAB | | | | [address], | | | | | | [place] [address] | | | | + + + + + + | BUN | 20Comment: Testing | 8 - 25 mg/dL | EXTERNAL | | | | performed at [facility], [address] | | LAB | | | | [address], | | | | | | [place] [address] | | | | + + + + + + | Creatinine | 1.14 (H)Comment: Testing | 0.50 - 1.00 | EXTERNAL | | | | performed at [facility], [address] | mg/dL | LAB | | | | [address], | | | | | | [place] [address] | | | | + + + + + + | BUN/Creatin | 18Comment: Testing | | EXTERNAL | | | ine Ratio | performed at [facility], [address] | | LAB | | | | [address], | | | | | | [place] [address] | | | | + + + + + + | Calcium | 8.5Comment: Testing | 8.5 - 10.2 | EXTERNAL | | | | performed at [facility], [address] | mg/dL | LAB | | | | [facility], | | | | | | [place] [address] | | | | + + + + + + | Estimated | 53 (L)Comment: GFR <60: | mL/min/1.73m2 | EXTERNAL | [...] | | | | | | at [facility], [address] | | | | | | [facility], | | | | | | [place] [address] | | | | + + + + + + + + | Specimen | + + | Blood specimen | | (specimen) | + + + +---------+ + + | Performing | Address | City/State/Zipcode | Phone Number | | Organization | | | | + +---------+ + + | EXTERNAL LAB | | | | + +---------+ + + Eosinophil Smear, Urine (09/19/2013 7:57 PM PDT) + + + + + + | Component | Value | Ref Range | Performed | Pathologist | | | | | At | Signature | + + + + + + | Eosinophils | NO EOSINOPHILS | % | EXTERNAL | | | , Urine | SEENComment: Testing | | LAB | | | | performed at [facility], [facility] [address] | | | | | | [address], | | | | | | [place] [address] | | | | + + + + + + + + | Specimen | + + | | + + + +---------+ + + | Performing | Address | City/State/Zipcode | Phone Number | | Organization | | | | + +---------+ + + | EXTERNAL LAB | | | | + +---------+ + + Sodium, Urine, Random (09/19/2013 7:57 PM PDT) + + + + + + | Component | Value | Ref Range | Performed | Pathologist | | | | | At | Signature | + + + + + + | Sodium, | 39 (L)Comment: Testing | 90 - 104 mmol/L | EXTERNAL | | | Urine | performed at [facility], [address] | | LAB | | | Random | [address], | | | | | | [place] [address] | | | | + + + + + + + + | Specimen | + + | Urine specimen | | (specimen) | + + + +---------+ + + | Performing | Address | City/State/Zipcode | Phone Number | | Organization | | | | + +---------+ + + | EXTERNAL LAB | | | | + +---------+ + + XR Chest 1 Vw (09/19/2013 5:07 PM PDT) + + | Specimen | + + | | + + + + + | Impressions | Performed At | + + + | 1. Findings suggestive of bronchitis versus mild interstitial | | | edema. | | | 5:20 PM | | + + + + + + | Narrative | Performed At | + + + | NOHEMI ESPITIA 1960 53 years XR CHEST 1 VIEW 09/19/2013 | | | 5:07 PM INDICATION: Shortness of breath with underlying COPD | | | COMPARISON: 06/22/13 TECHNIQUE: Chest 1 view, AP view of the chest | | | FINDINGS: The heart is normal in size. A slightly more rounded | | | appearance of the cardiac silhouette may be related to slightly | | | diminished lung volumes. There is newly developed peribronchial | | | thickening and bilateral hazy perihilar opacities. There is no | | | pneumothorax. No pleural fluid is present. There is no focal airspace | | | consolidation. Moderate gaseous distention of the stomach is present. | | | | | + + + + + | Procedure Note | + + | Nikita Hearn Conversion - 01/18/2019 1:22 AM PDT NOHEMI Annika ESPITIA yearsXR | | CHEST 1 VIEW09/19/2013 5:07 PM INDICATION: Shortness of breath with underlying COPD | | COMPARISON: 06/22/13 TECHNIQUE: Chest 1 view, AP view of the chest FINDINGS: The heart | | is normal in size. A slightly more rounded appearance of the cardiac silhouette may be | | related to slightly diminished lung volumes. There is newly developed peribronchial | | thickening and bilateral hazy perihilar opacities. There is no pneumothorax. No pleural | | fluid is present. There is no focal airspace consolidation. Moderate gaseous distention | | of the stomach is present. IMPRESSION: 1. Findings suggestive of bronchitis versus mild | | interstitial edema. | | | |TECHNIQUE: Chest 1 view, AP view of the chest | | | |FINDINGS: The heart is normal in size. A slightly more rounded appearance of the cardiac s ilhouette may be related to slightly diminished lung volumes. There is newly developed perib ronchial thickening and bilateral | |hazy perihilar opacities. There is no | | pneumothorax. No pleural fluid is present. There is no focal airspace consolidation. Moder ate gaseous distention of the stomach is present. | | | |IMPRESSION: | |1. Findings suggestive of bronchitis versus mild interstitial edema. | | | | | + + Culture, Blood, 2nd Specimen (09/19/2013 3:49 PM PDT) + + | Specimen | + + | Blood specimen | | (specimen) | + + + + + | Narrative | Performed At | + + + | Specimen Description BLOOD CULTURE | EXTERNAL LAB | | NO GROWTH REPORT STATUS | | | FINAL | | | 09/25/2013 | | + + + + +---------+ + + | Performing | Address | City/State/Zipcode | Phone Number | | Organization | | | | + +---------+ + + | EXTERNAL LAB | | | | + +---------+ + + Culture, Blood (09/19/2013 3:48 PM PDT) + + | Specimen | + + | Blood specimen | | (specimen) | + + + + + | Narrative | Performed At | + + + | Specimen Description BLOOD, LINE DRAW CULTURE | EXTERNAL LAB | | NO GROWTH REPORT STATUS | | | FINAL | | | 09/25/2013 | | + + + + +---------+ + + | Performing | Address | City/State/Zipcode | Phone Number | | Organization | | | | + +---------+ + + | EXTERNAL LAB | | | | + +---------+ + + CT Head wo Contrast (09/19/2013 3:05 PM PDT) + + | Specimen | + + | | + + + + + | Impressions | Performed At | + + + | 1. Unremarkable CT head without contrast. Electronically | | | signed by Jb Stahl DO on 09/19/2013 3:09 PM | | + + + + + + | Narrative | Performed At | + + + | NOHEMI ESPITIA CT HEAD WO CONTRAST HISTORY: 53 years. | | | Female. Altered mental status. TECHNIQUE: CT examination the head | | | was performed without contrast. COMPARISON: None. FINDINGS: | | | No abnormal areas of increased or decreased density seen throughout | | | the brain. No mass, hemorrhage, midline shift, or extra-axial fluid | | | collection. | | + + + + + | Procedure Note | + + | Dhiraj, Rad Conversion - 01/18/2019 1:22 AM PDT NOHEMI Roblero OMKARCT HEAD WO CONTRAST | | HISTORY:53 years. Female. Altered mental status. TECHNIQUE:CT examination the head was | | performed without contrast. COMPARISON:None. FINDINGS:No abnormal areas of increased or | | decreased density seen throughout the brain. No mass, hemorrhage, midline shift, or | | extra-axial fluid collection. IMPRESSION: 1. Unremarkable CT head without contrast. | | | |TECHNIQUE: | |CT examination the head was performed without contrast. | | | |COMPARISON: | |None. | | | |FINDINGS: | |No abnormal areas of increased or decreased density seen throughout the brain. No mass, hem orrhage, midline shift, or extra-axial fluid collection. | | | |IMPRESSION: | |1. Unremarkable CT head without contrast. | | | | | + + Urinalysis, Microscopic Only (09/19/2013 2:29 PM PDT) + + + + + + | Component | Value | Ref Range | Performed | Pathologist | | | | | At | Signature | + + + + + + | WBC, UA | 0-2Comment: Testing | 0 - 5 /hpf | EXTERNAL | | | | performed at [facility];[address] | | LAB | | | | [address];[place] | | | | | | [address] | | | | + + + + + + | RBC, UA | 0-2Comment: Testing | 0 - 5 /hpf | EXTERNAL | | | | performed at [facility];[address] | | LAB | | | | [address];[place] | | | | | | [address] | | | | + + + + + + | Epithelial | 6-10Comment: Testing | /lpf | EXTERNAL | | | Cells | performed at [facility];[address] | | LAB | | | | [address];[place] | | | | | | [address] | | | | + + + + + + | Bacteria, | TRACE (A)Comment: | | EXTERNAL | | | UA | Testing performed at | | LAB | | | | [facility];[address];[place] [address] | | | | + + + + + + | CASTS | 11-15Comment: | /lpf | EXTERNAL | | | | HYALINETesting performed | | LAB | | | | at [facility];[address];[place] [address] | | | | | | | | | | + + + + + + + + | Specimen | + + | Urine specimen | | (specimen) | + + + +---------+ + + | Performing | Address | City/State/Zipcode | Phone Number | | Organization | | | | + +---------+ + + | EXTERNAL LAB | | | | + +---------+ + + Culture, Urine (09/19/2013 2:29 PM PDT) + + | Specimen | + + | Urine specimen | | (specimen) | + + + + + | Narrative | Performed At | + + + | Specimen Description CLEAN CATCH URINE CULTURE | EXTERNAL LAB | | NO GROWTH REPORT STATUS | | | FINAL | | | 09/20/2013 | | + + + + +---------+ + + | Performing | Address | City/State/Zipcode | Phone Number | | Organization | | | | + +---------+ + + | EXTERNAL LAB | | | | + +---------+ + + Drugs Of ABuse Screen, Urine (H) (09/19/2013 2:28 PM PDT) + + + + + + | Component | Value | Ref Range | Performed | Pathologist | | | | | At | Signature | + + + + + + | Methampheta | NEGATIVEComment: | | EXTERNAL | | | mine/ | Positive cutoff for | | LAB | | | Amphetamine | AMP = 1000 ng/mLTesting | | | | | Screen, | performed at [facility];[address] | | | | | [address], P[address] | [address];[place] | | | | | | [address] | | | | + + + + + + | Barbiturate | NEGATIVEComment: | | EXTERNAL | | | s Screen, | Positive cutoff for | | LAB | | | Urine | SHAUNA = 200 ng/mLTesting | | | | | | performed at [facility];[address] | | | | | | [address];[place] | | | | | | [address] | | | | + + + + + + | Benzodiazep | NEGATIVEComment: | | EXTERNAL | | | aura | Positive cutoff for | | LAB | | | Screen, | BENZO = 200 ng/mLTesting | | | | | Urine | performed at [facility];[address] | | | | | | [address];[place] | | | | | | [address] | | | | + + + + + + | Cocaine | NEGATIVEComment: | | EXTERNAL | | | | Positive cutoff for | | LAB | | | | MARYAM = 300 ng/mLTesting | | | | | | performed at [facility];[address] | | | | | | [address];[place] | | | | | | [address] | | | | + + + + + + | Methadone | NEGATIVEComment: | | EXTERNAL | | | | Positive cutoff for | | LAB | | | | MTD = 300 ng/mLTesting | | | | | | performed at [facility];[address] | | | | | | [address];[place] | | | | | | [address] | | | | + + + + + + | Opiates | NEGATIVEComment: | | EXTERNAL | | | | Positive cutoff for | | LAB | | | | OPI = 300 ng/mLTesting | | | | | | performed at [facility];[address] | | | | | | [address];[place] | | | | | | [address] | | | | + + + + + + | PCP | NEGATIVEComment: | | EXTERNAL | | | | Positive cutoff for PCP | | LAB | | | | = 25 ng/mLTesting | | | | | | performed at [facility];[address] | | | | | | [address];[place] | | | | | | [address] | | | | + + + + + + | Cannabinoid | POSITIVE (A)Comment: | | EXTERNAL | | | s Screen, | Positive cutoff for THC | | LAB | | | Serum | = 50 ng/mLThe above are | | | | | | unconfirmed screening | | | | | | results. These results | | | | | | are to be used only for | | | | | | medical | | | | | | (i.e.,treatment) | | | | | | purposes. Unconfirmed | | | | | | screening results must | | | | | | not be used for | | | | | | non-medical purposes | | | | | | (e.g., employment | | | | | | testing, legal | | | | | | testing).Testing | | | | | | performed at [facility];[address] | | | | | | [address];[place] | | | | | | [address] | | | | + + + + + + + + | Specimen | + + | | + + + +---------+ + + | Performing | Address | City/State/Zipcode | Phone Number | | Organization | | | | + +---------+ + + | EXTERNAL LAB | | | | + +---------+ + + Myoglobin, Urine (09/19/2013 2:28 PM PDT) + + + + + + | Component | Value | Ref Range | Performed | Pathologist | | | | | At | Signature | + + + + + + | Myoglobin | NEGATIVEComment: Testing | | EXTERNAL | | | | performed at [facility] | | LAB | | | | [address] [facility];[place], [place] | | | | | | [address] | | | | + + + + + + + + | Specimen | + + | Urine specimen | | (specimen) | + + + +---------+ + + | Performing | Address | City/State/Zipcode | Phone Number | | Organization | | | | + +---------+ + + | EXTERNAL LAB | | | | + +---------+ + + HISTORICAL LAB PANEL RESULT (09/19/2013 1:20 PM PDT) + + + + + -+ | Component | Value | Ref Range | Performed | Pathologist | | | | | At | Signature | + + + + + -+ | WBC | 9.0Comment: Testing | 3.8 - 11.0 K/uL | EXTERNAL | | | | performed at [facility];[address] | | LAB | | | | [address];[place] | | | | | | [address] | | | | + + + + + -+ | Red Blood | 3.96Comment: Testing | 3.70 - 5.10 | EXTERNAL | | | Cells | performed at [facility];[address] | M/uL | LAB | | | Counted | [address];[place] | | | | | | [address] | | | | + + + + + -+ | Hemoglobin | 11.9Comment: Testing | 11.3 - 15.5 | EXTERNAL | | | | performed at [facility];[address] | g/dL | LAB | | | | [address];[place] | | | | | | [address] | | | | + + + + + -+ | Hematocrit, | 35.3Comment: Testing | 34.0 - 46.0 % | EXTERNAL | | | POC | performed at [facility];[address] | | LAB | | | | [address];[place] | | | | | | [address] | | | | + + + + + -+ | MCV | 89.0Comment: Testing | 80.0 - 100.0 fl | EXTERNAL | | | | performed at [facility];[address] | | LAB | | | | [address];[place] | | | | | | [address] | | | | + + + + + -+ | MCH | 30.1Comment: Testing | 27.0 - 34.0 pg | EXTERNAL | | | | performed at [facility];[address] | | LAB | | | | [address];[place] | | | | | | [address] | | | | + + + + + -+ | MCHC | 33.8Comment: Testing | 32.0 - 35.5 | EXTERNAL | | | | performed at [facility];[address] | g/dL | LAB | | | | [address];[place] | | | | | | [address] | | | | + + + + + -+ | RDW-CV | 45.5Comment: Testing | 37 - 53 fl | EXTERNAL | | | | performed at [facility];[address] | | LAB | | | | [address];[place] | | | | | | [address] | | | | + + + + + -+ | Platelet | 443 (H)Comment: Testing | 150 - 400 K/uL | EXTERNAL | | | Count | performed at [facility];[address] | | LAB | | | Plasma | [address];[place] | | | | | | [address] | | | | + + + + + -+ | MPV | 7.3Comment: Testing | fl | EXTERNAL | | | | performed at [facility];[address] | | LAB | | | | [address] | | | | | | [address] | | | | + + + + + -+ | Differentia | AUTOMATEDComment: | | EXTERNAL | | | l Type | Testing performed at | | LAB | | | | [facility];[address];[place] [address] | | | | + + + + + -+ | % Segmented | 60.4Comment: Testing | % | EXTERNAL | | | | performed at [facility];[address] | | LAB | | | Neutrophils | [address] | | | | | | [address] | | | | + + + + + -+ | % | 26.9Comment: Testing | % | EXTERNAL | | | Lymphocytes | performed at [facility];[address] | | LAB | | | | [address] | | | | | | [address] | | | | + + + + + -+ | % Monocytes | 8.0Comment: Testing | % | EXTERNAL | | | | performed at [facility];[address] | | LAB | | | | [address] | | | | | | [address] | | | | + + + + + -+ | % | 4.0Comment: Testing | % | EXTERNAL | | | Eosinophils | performed at [facility];[address] | | LAB | | | | [address];[place] | | | | | | [address] | | | | + + + + + -+ | % Basophils | 0.7Comment: Testing | % | EXTERNAL | | | | performed at [facility];[address] | | LAB | | | | [address] | | | | | | [address] | | | | + + + + + -+ | Absolute | 5.4Comment: Testing | 1.9 - 7.4 K/uL | EXTERNAL | | | Segmented | performed at [facility];[address] | | LAB | | | Neutrophils | [address] | | | | | | [address] | | | | + + + + + -+ | Absolute | 2.4Comment: Testing | 1.0 - 3.9 K/uL | EXTERNAL | | | Lymphocytes | performed at [facility];[address] | | LAB | | | | [address];[place] | | | | | | [address] | | | | + + + + + -+ | Absolute | 0.7Comment: Testing | 0 - 0.8 K/uL | EXTERNAL | | | Monocytes | performed at [facility];[address] | | LAB | | | | [address] | | | | | | [address] | | | | + + + + + -+ | Absolute | 0.4Comment: Testing | 0 - 0.5 K/uL | EXTERNAL | | | Eosinophils | performed at [facility];[address] | | LAB | | | | [address];[place] | | | | | | [address] | | | | + + + + + -+ | Absolute | 0.1Comment: Testing | 0 - 0.1 K/uL | EXTERNAL | | | Basophils | performed at [facility];[address] | | LAB | | | | [address];[place] | | | | | | [address] | | | | + + + + + -+ | Na | 141Comment: Testing | 135 - 143 | EXTERNAL | | | | performed at [facility];[address] | mmol/L | LAB | | | | [address];[place] | | | | | | [address] | | | | + + + + + -+ | K | 4.5Comment: Testing | 3.5 - 4.9 | EXTERNAL | | | | performed at [facility];[address] | mmol/L | LAB | | | | [address] | | | | | | [address] | | | | + + + + + -+ | Cl | 110 (H)Comment: Testing | 99 - 109 mmol/L | EXTERNAL | | | | performed at [facility];[address] | | LAB | | | | [address];[place] | | | | | | [address] | | | | + + + + + -+ | CO2 | 20 (L)Comment: Testing | 23 - 32 mmol/L | EXTERNAL | | | | performed at [facility];[address] | | LAB | | | | [address] | | | | | | [address] | | | | + + + + + -+ | Anion Gap | 15Comment: Testing | 5 - 20 mmol/L | EXTERNAL | | | | performed at [facility];[address] | | LAB | | | | [address] | | | | | | [address] | | | | + + + + + -+ | Glucose, | 94Comment: Testing | 65 - 99 mg/dL | EXTERNAL | | | Fasting | performed at [facility];[address] | | LAB | | | | [address] | | | | | | [address] | | | | + + + + + -+ | BUN | 30 (H)Comment: Testing | 8 - 25 mg/dL | EXTERNAL | | | | performed at [facility];[address] | | LAB | | | | [address] | | | | | | [address] | | | | + + + + + -+ | Creatinine | 2.26 (H)Comment: Testing | 0.50 - 1.00 | EXTERNAL | | | | performed at [facility];[address] | mg/dL | LAB | | | | [address] | | | | | | [address] | | | | + + + + + -+ | BUN/Creatin | 14Comment: Testing | | EXTERNAL | | | ine Ratio | performed at [facility];[address] | | LAB | | | | [address] | | | | | | [address] | | | | + + + + + -+ | Calcium | 9.5Comment: Testing | 8.5 - 10.2 | EXTERNAL | | | | performed at [facility];[address] | mg/dL | LAB | | | | [address] | | | | | | [address] | | | | + + + + + -+ | Protein, | 8.2Comment: Testing | 6.3 - 8.2 g/dL | EXTERNAL | | | Total | performed at [facility];[address] | | LAB | | | | [address] | | | | | | [address] | | | | + + + + + -+ | Albumin | 3.3 (L)Comment: Testing | 3.6 - 5.0 g/dL | EXTERNAL | | | | performed at [facility];[address] | | LAB | | | | [address] | | | | | | [address] | | | | + + + + + -+ | Globulin | 4.9Comment: Testing | 1.3 - 4.9 g/dL | EXTERNAL | | | | performed at [facility];[address] | | LAB | | | | [address];[place] | | | | | | [address] | | | | + + + + + -+ | A/G Ratio | 0.7 (L)Comment: Testing | 1.0 - 2.4 | EXTERNAL | | | | performed at [facility];[address] | | LAB | | | | [address];[place] | | | | | | [address] | | | | + + + + + -+ | Bilirubin | 0.2Comment: Testing | 0.1 - 1.5 mg/dL | EXTERNAL | | | Total | performed at [facility];[address] | | LAB | | | | [address];[place] | | | | | | [address] | | | | + + + + + -+ | ALP, | 108Comment: Testing | 35 - 115 U/L | EXTERNAL | | | External | performed at [facility];[address] | | LAB | | | | [address] | | | | | | [address] | | | | + + + + + -+ | AST | 153 (H)Comment: Testing | 10 - 45 U/L | EXTERNAL | | | | performed at [facility];[address] | | LAB | | | | [address] | | | | | | [address] | | | | + + + + + -+ | ALT | 74 (H)Comment: Testing | 10 - 65 U/L | EXTERNAL | | | | performed at [facility];[address] | | LAB | | | | [address] | | | | | | [address] | | | | + + + + + -+ | Estimated | 24 (L)Comment: GFR <60: | mL/min/1.73m2 | EXTERNAL | [...] | | | | | | at [facility];[address];[place] [address] | | | | + + + + + -+ | CK, Total | 3032 (H)Comment: Testing | 30 - 240 U/L | EXTERNAL | | | | performed at [facility];[address] | | LAB | | | | [address] | | | | | | [address] | | | | + + + + + -+ | INR | 1.0Comment: REFERENCE | | [...] | | | | | performed at [facility];[address] | | | | | | [address];[place] | | | | | | [address] | | | | + + + + + -+ | aPTT, | 23Comment: Testing | 23 - 32 seconds | EXTERNAL | | | Patient | performed at [facility];[address] | | LAB | | | | [address];[place] | | | | | | [phone] | | | | + + + + + -+ | CK-MB | 53.7 (H)Comment: Testing | 0.5 - 3.6 ng/mL | EXTERNAL | | | | performed at [facility];[address] | | LAB | | | | [address];[place] | | | | | | [address] | | | | + + + + + -+ | CK-MB Index | 1.8Comment: CK INDEX | | EXTERNAL | | | | INTERPRETATION: | | LAB | | | | MMB ng/mL | | | | | | | | | | | |CK INDEX INTERPRETATION: | | | | | | MMB ng/mL | | | | | | | | | | + + + + + -+ + + | Specimen | + + | | + + + +---------+ + + | Performing | Address | City/State/Zipcode | Phone Number | | Organization | | | | + +---------+ + + | EXTERNAL LAB | | | | + +---------+ + + C-Reactive Protein (09/19/2013 1:20 PM PDT) + + + + + + | Component | Value | Ref Range | Performed | Pathologist | | | | | At | Signature | + + + + + + | CRP | 3.4 (H)Comment: Testing | mg/dL | EXTERNAL | | | | performed at [facility];[address] | | LAB | | | | [address] [facility];[place], [place] | | | | | | [address] | | | | + + + + + + + + | Specimen | + + | Blood specimen | | (specimen) | + + + +---------+ + + | Performing | Address | City/State/Zipcode | Phone Number | | Organization | | | | + +---------+ + + | EXTERNAL LAB | | | | + +---------+ + + TSH (09/19/2013 1:20 PM PDT) + + + + + + | Component | Value | Ref Range | Performed | Pathologist | | | | | At | Signature | + + + + + + | TSH | 0.61Comment: Testing | 0.45 - 5.10 | EXTERNAL | | | | performed at [facility];[address] | uIU/mL | LAB | | | | [address];[place], [place] | | | | | | [address] | | | | + + + + + + + + | Specimen | + + | Blood specimen | | (specimen) | + + + +---------+ + + | Performing | Address | City/State/Zipcode | Phone Number | | Organization | | | | + +---------+ + + | EXTERNAL LAB | | | | + +---------+ + + T4, Free (09/19/2013 1:20 PM PDT) + + + + + + | Component | Value | Ref Range | Performed | Pathologist | | | | | At | Signature | + + + + + + | FREE T4 | 1.1Comment: Testing | 0.7 - 1.5 ng/dL | EXTERNAL | | | (REF) | performed at [facility] | | LAB | | | | [address];[place] | | | | | | [address] | | | | + + + + + + + + | Specimen | + + | Blood specimen | | (specimen) | + + + +---------+ + + | Performing | Address | City/State/Zipcode | Phone Number | | Organization | | | | + +---------+ + + | EXTERNAL LAB | | | | + +---------+ + + Ammonia (09/19/2013 1:20 PM PDT) + + + + + + | Component | Value | Ref Range | Performed | Pathologist | | | | | At | Signature | + + + + + + | Ammonia | 30Comment: Testing | umol/L | EXTERNAL | | | | performed at [facility];[address] | | LAB | | | | [address];[place] | | | | | | [address] | | | | + + + + + + + + | Specimen | + + | Blood specimen | | (specimen) | + + + +---------+ + + | Performing | Address | City/State/Zipcode | Phone Number | | Organization | | | | + +---------+ + + | EXTERNAL LAB | | | | + +---------+ + + Ethanol (09/19/2013 1:20 PM PDT) + + + + + + | Component | Value | Ref Range | Performed | Pathologist | | | | | At | Signature | + + + + + + | Ethyl | <3Comment: Testing | mg/dL | EXTERNAL | | | Alcohol | performed at [facility];[address] | | LAB | | | | [address];[place], [place] | | | | | | [address] | | | | + + + [...] + +---------+ + + ECG 12 lead (09/19/2013 12:58 PM PDT) + + + + + + | Component | Value | Ref Range | Performed | Pathologist | | | | | At | Signature | + + + + + + | DIAGNOSIS: | Normal sinus | | EXTERNAL | | | | rhythmNormal ECGNo | | LAB | | | | previous ECGs | | | | | | availableThis ECG | | | | | | contains Unconfirmed | | | | | | Interpretation | | | | | | Statements. See ED | | | | | | Record for Physician | | | | | | Interpretation. | | | | | | Confirmed by MUSE READ | | | | | | ONLY, -COMPUTER ([id number]), | | | | | | design editor JERAMY TRAORE | | | | | | (4) on 09/19/2013 2:21:45 | | | | | | PM | | | | + + + + + + + + | Specimen | + + | | + + + + + | Narrative | Performed At | + + + | Historically converted procedure from [facility] Epic environment | EXTERNAL LAB | + + + + +---------+ + + | Performing | Address | City/State/Zipcode | Phone Number | | Organization | | | | + +---------+ + + | EXTERNAL LAB | | | | + +---------+ + + documented in this encounter Visit Diagnoses + + | Diagnosis | + + | Nicotine addiction Tobacco use disorder | + + | OAB (overactive bladder) Hypertonicity of bladder | + + | GERD (gastroesophageal reflux disease) Esophageal reflux | + + | Vitamin D deficiency Unspecified vitamin D deficiency | + + | COPD (chronic obstructive pulmonary disease) (HCC) Chronic airway obstruction, not | | elsewhere classified | + + | Bronchitis Bronchitis, not specified as acute or chronic | + + | Anxiety Anxiety state, unspecified | + + | Acute renal failure (HCC) Acute kidney failure, unspecified | + + | Transient hypotension Nonspecific low blood pressure reading | + + | Spinal stenosis Spinal stenosis, unspecified region other than cervical | + + | Altered level of consciousness Other alteration of consciousness | + + | Depression Depressive disorder, not elsewhere classified | + + | Hypotension, unspecified | + + | Rhabdomyolysis | + + | Acidosis | + + | ARF (acute renal failure) (HCC) Acute kidney failure, unspecified | + + | HTN (hypertension) Unspecified essential hypertension | + + | Hypothyroid Unspecified hypothyroidism | + + | Mood disorder (HCC) Unspecified episodic mood disorder | + + | Mixed stress and urge urinary incontinence Mixed incontinence urge and stress | | (male)(female) | + + | Dyspareunia | + + | Cystocele Cystocele, midline | + + | Rectocele | + + documented in this encounter
--- OUTSIDE RECORDS SUMMARY | ~2019-11-09 | XMS | Encounter Summary ---
Demographics + + + | Address | [address] | | | [place] [address] | + + + | Home Phone | | + + + | Preferred Language | Unknown | + + + | Marital Status | Single | + + + | Shinto Affiliation | 1009 | + + + | Race | Unknown | + + + | Ethnic Group | Unknown | + + + Author + + + | Author | [facility] | | | and [place] | + + + | Organization | [facility] | | | and [...] Team Providers + +------+ + | Care Sea Captain Name | Role | Phone | + +------+ + | Naren Nina PA-C | PCP | | + +------+ + Reason for Referral Evaluate & Treat (Routine) + + + + + + + | Status | Reason | Specialty | Diagnoses / | Referred By | Referred To | | | | | Procedures | Contact | Contact | + + + + + + + | Canceled | Specialty | Pain Medicine | Diagnoses | Stewart, | LYNX | | | Services | | Chronic | Henri Joseph MD | HEALTHCARE | | | Required | | bilateral | [address] | | | | | low back | [address] | [address] | | | | | pain with | HAYDEN PHELPSA, | [place], | | | | | bilateral | [place] [address] | [place] [address] | | | | | sciatica | Phone: | Phone: | | | | | Cervicalgia | [phone] | [phone] | | | | | Cervical | Fax: | Fax: | | | | | radiculopath | [phone] | [phone] | | | | | y Facet | | | | | | | arthritis of | | | | | | | cervical | | | | | | | region | | | | | | | Procedures | | | | | | | 02/08 In | | | | | | | basket | | | | | | | response | | | + + + + + + + Encounter Details +--------+ + + + + | Date | Type | Department | Care Team | Description | +--------+ + + + + | 01/19/ | Orders Only | [facility] | Henri Stewart, | Chronic bilateral | | 2016 | | PHYSIATRY [address] | MD [address] | low back pain with | | | | [address] | [place], [place] | bilateral sciatica | | | | [place], [place] | [address] | (Primary Dx); | | | | [address] | | Cervicalgia; | | | | [phone] | | Cervical | | | | | | radiculopathy; Facet | | | | | | arthritis of | | | | | | cervical region | | | | | | ([facility]) | +--------+ + + + + Social [...] | 2020 | Visit | | [address] | | | | | | [address] | | | | | | [place] [address] | | | | | | [phone] | | | | | | | | +--------+---------+ + + + + + +--------+ + + | Name | Type | Priori | Associated Diagnoses | Order Schedule | | | | ty | | | + + +--------+ + + | Pain Clinic, | Outpatient | Routin | Chronic bilateral | Ordered: 01/20/2016 | | External - AMB | Referral | e | low back pain with | | | Referral | | | bilateral sciatica | | | | | | Cervicalgia | | | | | | Cervical | | | | | | radiculopathy Facet | | | | | | arthritis of | | | | | | cervical region | | | | | | (HCC) | | + + +--------+ + + documented as of this encounter Visit Diagnoses + + | Diagnosis | + + | Chronic bilateral low back pain with bilateral sciatica - Primary | + + | Cervicalgia | + + | Cervical radiculopathy Brachial neuritis or radiculitis nos | + + | Facet arthritis of cervical region Cervical spondylosis without myelopathy | + + documented in this encounter"
--- OUTSIDE RECORDS SUMMARY | ~2019-11-09 | XMS | Encounter Summary ---
Demographics + + + | Address | [address] | | | [place] [address] | + + + | Home Phone | | + + + | Preferred Language | Unknown | + + + | Marital Status | Single | + + + | Anglican Affiliation | 1009 | + + + | Race | Unknown | + + + | Ethnic Group | Unknown | + + + Author + + + | Author | [facility] | | | and [place] | + + + | Organization | [facility] | | | and [...] Team Providers + +------+ + | Care Claim Inspector Name | Role | Phone | + +------+ + | Hayden Acevedo MD | PCP | | + +------+ + Encounter Details +--------+ + + + + | Date | Type | Department | Care Team | Description | +--------+ + + + + | 10/08/ | Hospital | [facility] | Conversion | Abdominal pain | | 2014 | Encounter | [facility] | Transaction, | | | | | [address] | Provider Unknown | | | | | [address] | [phone] | | | | | [place], [place] | | | | | | [address] | | | | | | [phone] | | | +--------+ + + + [...] | 11/09/ | Office | Neurosurgery | Jsoe Gonzalez DO | | | 2020 | Visit | | [address] | | | | | | [address] | | | | | | [place] [address] | | | | | | [phone] | | | | | | | [...]
--- OUTSIDE RECORDS SUMMARY | ~2019-11-09 | XMS | Encounter Summary ---
Demographics + + + | Address | [address] | | | [place] [address] | + + + | Home Phone | | + + + | Preferred Language | Unknown | + + + | Marital Status | Single | + + + | Mandaen Affiliation | 1009 | + + + | Race | Unknown | + + + | Ethnic Group | Unknown | + + + Author + + + | Author | [facility] | | | and [place] | + + + | Organization | [facility] | | | and [...] Team Providers + +------+ + | Care Special Education Kindergarten Teacher Name | Role | Phone | + +------+ + | Hayden Acevedo MD | PCP | | + +------+ + Encounter Details +--------+ + + + + | Date | Type | Department | Care Team | Description | +--------+ + + + + | 10/10/ | Emergency | [facility] | Mikayla Stahl, | COPD exacerbation | | 2013 | | MEDICAL CENTER | [facility] [address] | ([facility]); Arthritis; | | | | EMERGENCY CENTER | [place] [address] | Ankle pain, right; | | | | [address] | [phone] | Tobacco abuse | | | | [place], [place] | | | | | | [address] | | | | | | [phone] | | | +--------+ + + + [...] | | | | | [place] [address] | | | | | | [phone] | | | | | | | [...]
--- OUTSIDE RECORDS SUMMARY | ~2019-11-09 | XMS | Encounter Summary ---
Demographics + + + | Address | [address] | | | [place] [address] | + + + | Home Phone | | + + + | Preferred Language | Unknown | + + + | Marital Status | Single | + + + | Christianity Affiliation | 1009 | + + + | Race | Unknown | + + + | Ethnic Group | Unknown | + + + Author + + + | Author | [facility] | | | and [place] | + + + | Organization | [facility] | | | and [place] | [...] Providers + +------+ + | Care Supervisor Orchard Name | Role | Phone | + [...] | | | | low back | [address] | [address] | | | | | pain with | HAYDEN PHELPSA, | [place], | | | | | bilateral | [place] [address] | [place] [address] | | | | | sciatica | Phone: | Phone: | | | | | Cervicalgia | [phone] | [phone] | | | | | Cervical | Fax: | Fax: | | | | | radiculopath | [phone] | [phone] | | | | | y Facet [...] PHYSIATRY [address] | MD [address] | low back pain with | | | | [address] | [place], [place] | bilateral sciatica | | | | [place] | [address] | (Primary Dx); | | | | [address] | | Cervicalgia; | | | | [phone] | | Cervical | | | | | | radiculopathy; Facet | | | | | | arthritis of | | | | | | cervical region | | | | | | ([facility]) | +--------+ + + + + Social [...] | | | | | [place] [address] | | | | | | [phone] | | | | | | | [...]
--- OUTSIDE RECORDS SUMMARY | ~2019-11-09 | XMS | Encounter Summary ---
Demographics + + + | Address | [address] | | | [place] [address] | + + + | Home Phone | | + + + | Preferred Language | Unknown | + + + | Marital Status | Single | + + + | Adventism Affiliation | 1009 | + + + | Race | Unknown | + + + | Ethnic Group | Unknown | + + + Author + + + | Author | [facility] | | | and [place] | + + + | Organization | [facility] | | [...] Team Providers + +------+ + | Care Motor Rebuilder Name | Role | Phone | + [...] Provider Unknown | | | | | [place], [place] | | | | | | [address] | (Fax) | | | | | [phone] | | | +--------+ + + + [...] | | | | | [place] [address] | | | | | | [phone] | | | | | | | [...]
--- OUTSIDE RECORDS SUMMARY | ~2019-11-09 | XMS | Encounter Summary ---
Demographics + + + | Address | [address] | | | [place] [address] | + + + | Home Phone [...] + | Author | [facility] | | | and [place] | + + + | Organization | [facility] | | | and [place] [...] Team Providers + +------+ + | Care Tunnel Miner Name | Role | Phone | + +------+ + | Hayden Acevedo MD | PCP | | + +------+ + Encounter Details +--------+ + + + + | Date | Type | Department | Care Team | Description | +--------+ + + + + | 12/11/ | Hospital | [facility] | Conversion | | | 2014 | Encounter | [facility] | Transaction, | | | | | [address] | Provider Unknown | | | | | [place], [place] | | | | | | [address] | (Fax) | | | | | [phone] | | | +--------+ + + + [...] [address] | | | | | | [address] | | | | | | [place] [address] | | | | | | [phone] | | | | | | | | +--------+---------+ + + + documented as of this encounter Visit Diagnoses Not on filedocumented in this encounter"
--- OUTSIDE RECORDS SUMMARY | ~2019-11-09 | XMS | Encounter Summary ---
Demographics + + + | Address | [address] | | | [place] [address] | + + + | Home Phone | | + + + | Preferred Language | Unknown | + + + | Marital Status | Single | + + + | Church Affiliation | 1009 | + + + | Race | Unknown | + + + | Ethnic Group | Unknown | + + + Author + + + | Author | [facility] | | | and [place] | + + + | Organization | [facility] [...] + +------+ + | Care Special Education Supervisor Name | Role | Phone | + +------+ + | Naren Nina PA-C | PCP | | + +------+ + Reason for Visit + + + | Reason | Comments | + + + | Follow-up | | + + + Encounter Details +--------+ + + + + | Date | Type | Department | Care Team | Description | +--------+ + + + + | 10/28/ | Telephone | [facility] | Jose Gonzalez DO | Follow-up | | 2020 | | NEUROSURGERY [address] | [address] | | | | | [address] | | | | | [place], [place] | [place] [address] | | | | | [address] | [phone] | | | | | [phone] | | | +--------+ + + + [...] [address] | | | | | | [address] | | | | | | [place] [address] | | | | | | [phone] | | | | | | | | +--------+---------+ + + + documented as of this encounter Visit Diagnoses Not on filedocumented in this encounter"
--- OUTSIDE RECORDS SUMMARY | ~2019-11-09 | XMS | Encounter Summary ---
Demographics + + + | Address | [address] | | | [place] [address] | + + + | Home Phone | | + + + | Preferred Language | Unknown | + + + | Marital Status | Single | + + + | Nondenominational Affiliation | 1009 | + + + | Race | Unknown | + + + | Ethnic Group | Unknown | + + + Author + + + | Author | [facility] | | | and [place] | + + + | Organization | [facility] | [...] Team Providers + +------+ + | Care Dispatch Lead Name | Role | Phone | + +------+ + | Naren Nina PA-C | PCP | | + +------+ + Encounter Details +--------+ + + + + | Date | Type | Department | Care Team | Description | +--------+ + + + + | 03/20/ | Orders Only | [facility] | DyeMisha John, | | | 2013 | | ASSOCIATED | [address] | | | | | [facility] | [address], | | | | | [address] | [place] [address] | | | | | [address], | [phone] | | | | | [place] [address] | | | | | | [phone] | | | +--------+ + + + [...] | | | | | [place] [address] | | | | | | [phone] | | | | | | | | +--------+---------+ + + + documented as of this encounter Procedures + +--------+ + + + | Procedure Name | Priori | Date/Time | Associated Diagnosis | Comments | | | ty | | | | + +--------+ + + + | FL VOIDING | Routin | 08/21/2013 | | Results for this | | CYSTOURETHROGRAM | e | 9:48 AM | | procedure are in the | | | | PDT | | results section. | + +--------+ + + + documented in this encounter Results FL Voiding Cystourethrogram (08/21/2013 9:48 AM PDT) + + | Specimen | + + | | + + + + + | Impressions | Performed At | + + + | 1. Downward descent of the bladder on voiding which may be due to | | | pelvic floor dysfunction. | | + + + + + + | Narrative | Performed At | + + + | [facility] XR VOIDING CYSTOURETHROGRAM 08/21/2013 9:48 AM | | | HISTORY: 53 years. Female. Pelvic pain and incontinence. | | | COMPARISON: None. TECHNIQUE: Written informed consent was | | | obtained. A timeout was performed. After catheterizing the urinary | | | bladder using sterile technique, 475 mL of Cytografin were instilled | | | by gravity under fluoroscopic guidance and fluoroscopic evaluation of | | | the urinary tract was performed during bladder filling and voiding. | | | The examination was recorded on digital spot images. FLUOROSCOPY | | | TIME: 0.5 minutes. FINDINGS: Early filling of the urinary | | | bladder demonstrates no filling defect to suggest a ureterocele. | | | Urinary bladder contour and capacity are normal. There is no | | | vesicoureteral reflux with bladder filling or voiding. Voiding | | | delineates a normal urethra. There is no post-void residual | | | volume. Mild to moderate downward descent of the bladder upon voiding. | | | COMPLICATIONS: None. | | + + + + + | Procedure Note | + + | Dhiraj, Nikita Conversion - 01/24/2019 9:17 AM SVETLANA HOLLINS VOIDING | | CYSTOURETHROGRAM08/21/2013 9:48 AM HISTORY:53 years. Female. Pelvic pain and | | incontinence. COMPARISON:None. TECHNIQUE:Written informed consent was obtained. A | | timeout was performed. After catheterizing the urinary bladder using sterile technique, | | 475 mL of Cytografin were instilled by gravity under fluoroscopic guidance and | | fluoroscopic evaluation of the urinary tract was performed during bladder filling and | | voiding. The examination was recorded on digital spot images. FLUOROSCOPY TIME:0.5 | | minutes. FINDINGS: Early filling of the urinary bladder demonstrates no filling defect | | to suggest a ureterocele. Urinary bladder contour and capacity are normal. There is no | | vesicoureteral reflux with bladder filling or voiding. Voiding delineates a normal | | urethra. There is no post-void residual volume. Mild to moderate downward descent of | | the bladder upon voiding. COMPLICATIONS:None. IMPRESSION: 1. Downward descent of the | | bladder on voiding which may be due to pelvic floor dysfunction. | | | |FLUOROSCOPY TIME: | |0.5 minutes. | | | |FINDINGS: | | | |Early filling of the urinary bladder demonstrates no filling defect to suggest a ureterocel e. Urinary bladder contour and capacity are normal. There is no vesicoureteral reflux with b ladder filling or voiding. | |Voiding delineates a normal urethra. There | | is no post-void residual volume. Mild to moderate downward descent of the bladder upon voi ding. | | | |COMPLICATIONS: | |None. | | | |IMPRESSION: | |1. Downward descent of the bladder on voiding which may be due to pelvic floor dysfunction . | | | | | + + documented in this encounter Visit Diagnoses Not on filedocumented in this encounter"
--- OUTSIDE RECORDS SUMMARY | ~2019-11-09 | XMS | Encounter Summary ---
Demographics + + + | Address | [address] | | | [place] [address] | + + + | Home Phone [...] + + + | Author | [facility] | | | and [place] | + + + | Organization | [facility] | | | and [place] [...] Team Providers + +------+ + | Care Loan Processing Supervisor Name | Role | Phone | + +------+ + | Naren Nina PA-C | PCP | | + +------+ + Encounter Details +--------+ + + + + | Date | Type | Department | Care Team | Description | +--------+ + + + + | 03/17/ | Orders Only | [facility] | HallMaximiliano L, | | | 2013 | | AND ANKLE XRAY [address] | DPM [address] | | | | | [address] | [address] [place], | | | | | [place], [place] | [place] [address] | | | | | [address] | [phone] | | | | | [phone] | | | +--------+ + + + [...] | | | | | [place] [address] | | | | | | [phone] | | | | | | | [...]
--- OUTSIDE RECORDS SUMMARY | ~2019-11-09 | XMS | Encounter Summary ---
Demographics + + + | Address | [address] | | | [place] [address] | + + + | Home Phone | | + + + | Preferred Language | Unknown | + + + | Marital Status | Single | + + + | Orthodoxy Affiliation | 1009 | + + + | Race | Unknown | + + + | Ethnic Group | Unknown | + + + Author + + + | Author | [facility] | | | and [place] | + + + | Organization | [facility] | | | and [place] | [...] Team Providers + +------+ + | Care Crane Follower Name | Role | Phone | + +------+ + | Hayden Acevedo MD | PCP | | + +------+ + Encounter Details +--------+ + + + + | Date | Type | Department | Care Team | Description | +--------+ + + + + | 08/19/ | Hospital | [facility] | Conversion | LBP radiating to | | 2013 | Encounter | [facility] | Transaction, | left leg | | | | [address] | Provider Unknown | | | | | [place], [place] | | | | | | [address] | (Fax) | | | | | [phone] | | | +--------+ + + + [...] | 11/09/ | Office | Neurosurgery | oJse Gonzalez DO | | | 2020 | Visit | | [address] | | | | | | [address] | | | | | | [place] [address] | | | | | | [phone] | | | | | | | [...] Conversion - 01/18/2019 1:22 AM PDT NO[facility] ESPITIAI LUMBAR SPINE W WO | | CONTRAST [...]
--- OUTSIDE RECORDS SUMMARY | ~2019-11-09 | XMS | Encounter Summary ---
Demographics + + + | Address | [address] | | | [place] [address] | + + + | Home Phone | | + + + | Preferred Language | Unknown | + + + | Marital Status | Single | + + + | Advent Affiliation | 1009 | + + + | Race | Unknown | + + + | Ethnic Group | Unknown | + + + Author + + + | Author | [facility] | | | and [place] | + + + | Organization | [facility] | | [...] Team Providers + +------+ + | Care Angular Js Developer Name | Role | Phone | [...] [address] | | | | | [place], [place] | [address] | | | | | [address] | [place] [address] | | | | | [phone] | [phone] | | | | | | | [...] | | | | | [place] [address] | | | | | | [phone] | | | | | | | [...] + + + + | HCV | [id number] (A)Comment: | [iU]/mL | EXTERNAL | | [...]
--- OUTSIDE RECORDS SUMMARY | ~2019-11-09 | XMS | Clinical Summary ---
Demographics + + + | Address | [address] | | | [place] [address] | + + + | Home Phone | | + + + | Preferred Language | Unknown | + + + | Marital Status | Single | + + + | Lutheran Affiliation | 1009 | + + + | Race | Unknown | + + + | Ethnic Group | Unknown | + + + Author + + + | Author | [facility] | | | and [place] | + + + | Organization | [facility] | [...] Team Providers + +------+ + | Care Rear Load Truck Driver Name | Role | Phone | + [...] | | | | | Comments) Used CAN CUTTER | | | | | | and it lowered her | | | | | | BP And medication | | | | | | was stopped Other | | | | | | reaction(s): Other | | | | | | (See Comments) Used | | | | | | CAN CUTTER and it lowered | | | | | | her BP And | | | | | | medication was | | | | | | stopped Used CAN CUTTER | | | | | | and [...] | will have pt speak with the patient coordinator today to help | | get [...] | +--------+ + + + + | 10/30/ | Telephone | Neurosurgery | Jose Gonzalez DO | Other | | 2020 | | | | | +--------+ + + + + | 10/28/ | Telephone | Neurosurgery | Jose Gonzalez DO | Follow-up | | 2019 | | | | | +--------+ + + + + | 10/20/ | Telephone | Neurosurgery | Jose Gonzalez DO | Appointment | | 2019 | | | | | +--------+ + [...] [address] | | | | | | [address] | | | | | | [place] [address] | | | | | | [phone] | | | | | | | [...] | | Vagina | ETHICON | | 2015 | /TVTRL | | 12/24/2013 by Misha Dye | | | SUTURE - | | | | | MD John | | | ETHS | | | /[id number] | | | | | | | [...] +---------+--------+ | MEDICAID [place] | MEDICA | [id number] | 09/03/19 | [phone] | | Medica [...] lula | | | 1 (Home) | [address] | + +--------+ +--------+ + + | Bisi Becker | Person | Self | [birth year] | [address] | | | al/Fam | | 1960 | [phone] | [place], [place] | | | [place]ula | | | 1 (Home) | [address] | + +--------+ +--------+ + + Advance Directives + + + + + | Type | Date Recorded | Patient | Explanation | | | | Specialty Development Consultant | | + + + + + | Power of | | | | | Compensation Administrator | | | | + + + + + | Advance | | | | | Directive | | | | + + + + +
--- OUTSIDE RECORDS SUMMARY | ~2019-11-09 | XMS | Encounter Summary ---
Demographics + + + | Address | [address] | | | [place] [address] | + + + | Home Phone | | + + + | Preferred Language | Unknown | + + + | Marital Status | Single | + + + | Confucianism Affiliation | 1009 | + + + | Race | Unknown | + + + | Ethnic Group | Unknown | + + + Author + + + | Author | [facility] | | | and [place] | + + + | Organization | [facility] | | | and [place] [...] Team Providers + +------+ + | Care Micro Computer Specialist Name | Role | Phone | + +------+ + | Naren Nina PA-C | PCP | | + +------+ + Encounter Details +--------+ + + + + | Date | Type | Department | Care Team | Description | +--------+ + + + + | 02/23/ | Orders Only | [facility] | HallMaximiliano L, | | | 2013 | | [address] ANKLE XRAY [address] | DPM [address] | | | | | [address] | [address] [place], | | | | | [place], [place] | [place] [address] | | | | | [address] | [phone] | | | | | [phone] | | | +--------+ + + + [...] | | | | | [place] [address] | | | | | | [phone] | | | | | | | [...]
--- OUTSIDE RECORDS SUMMARY | ~2019-11-09 | XMS | Encounter Summary ---
Demographics + + + | Address | [address] | | | [place] [address] | + + + | Home Phone [...] + | Author | [facility] | | | and [place] | + + + | Organization | [facility] | | | and [...] Team Providers + +------+ + | Care Marine Electronics Repairer Name | Role | Phone | + +------+ + | Naren Nina PA-C | PCP | | + +------+ + Encounter Details +--------+ + + + + | Date | Type | Department | Care Team | Description | +--------+ + + + + | 03// | Orders Only | [facility] | Mariia Owusu, | | | 2013 | | [facility] | ENGRAVER APPRENTICE DECORATIVE [address] | | | | | CARE [address] | [place] [address] | | | | | [place], [place] | [phone] | | | | | [address] | | | | | | [phone] | | | +--------+ + + + [...] Progress Notes Conversion Transaction, Provider Unknown - 08/13/2013 5:38 PM PDTFormatting of this note m ight be different from the original. Telephone Encounter by Olesya Martinez at 08/13/131737 Author: Olesya Martinez Service: (none) Author Type: Registered Nurse Filed: 08/13/131737 Encounter Date: 08/13/2013 Status: Signed On Air Director: Olesya Martinez Message copied by OLESYA MARTINEZ on SunAug 13, 2013 5:38 PM ------ Message from: SAMREEN SKINNER Created: SunAug 13, 2013 3:55 PM Contact: 4-Ruth- order-STRAND Ruth from [facility] need for blood work BUN and Creatine for upcoming MRI, patient wi ll need to have this done at tomorrow appointment since the MRI is scheduled for 08/18. If you have any questions, Please call patient back at [phone]. Thank you, Samreen Skinner Truck Driver Supervisor LANAdoblaine kennedy in this encounter Plan of Treatment +--------+---------+ + + + | Date | Type | Specialty | Care Team | Description | +--------+---------+ + + + | 11/09/ | Office | Neurosurgery | Jose Gonzalez DO | | | 2019 | Visit | | [address] | | | | | | [place] [address] | | | | | | [phone] | | | | | | | | +--------+---------+ + + + documented as of this encounter Procedures + +--------+ + + + | Procedure Name | Priori | Date/Time | Associated Diagnosis | Comments | | | ty | | | | + +--------+ + + + | BUN | Routin | 08/15/2013 | | Results for this | | | e | 4:23 PM | | procedure are in the | | | | PDT | | results section. | + +--------+ + + + | CREATININE | Routin | 08/15/2013 | | Results for this | | | e | 4:23 PM | | procedure are in the | | | | PDT | | results section. | + +--------+ + + + documented in this encounter Results BUN (08/15/2013 4:23 PM PDT) + + + + + + | Component | Value | Ref Range | Performed | Pathologist | | | | | At | Signature | + + + + + + | BUN | 10Comment: Testing | 8 - 25 mg/dL | EXTERNAL | | | | performed at [facility];[address] | | LAB | | | | [address] | | | | | | [address];[place] [address] | | | | + + + + + + + + | Specimen | + + | Blood specimen | | (specimen) | + + + +---------+ + + | Performing | Address | City/State/Zipcode | Phone Number | | Organization | | | | + +---------+ + + | EXTERNAL LAB | | | | + +---------+ + + Creatinine (08/15/2013 4:23 PM PDT) + + + + + + | Component | Value | Ref Range | Performed | Pathologist | | | | | At | Signature | + + + + + + | Creatinine | 0.66Comment: Testing | 0.50 - 1.00 | EXTERNAL | | | | performed at [facility];[address] | mg/dL | LAB | | | | [address] | | | | | | [address];[place] [address] | | | | + + + [...]
--- OUTSIDE RECORDS SUMMARY | ~2019-11-09 | XMS | Encounter Summary ---
Demographics + + + | Address | [address] | | | [place] [address] | + + + | Home Phone [...] + + + | Author | [facility] | | | and [place] | + + + | Organization | [facility] | [...] Team Providers + +------+ + | Care Hospital Nurse Liaison Name | Role | Phone | + +------+ + | Hayden Acevedo MD | PCP | | + +------+ + Encounter Details +--------+ + + + + | Date | Type | Department | Care Team | Description | +--------+ + + + + | 08/21/ | Hospital | [facility] | Conversion | | | 2014 | Encounter | [facility] | Transaction, | | | | | [address] | Provider Unknown | | | | | [place], [place] | [phone] | | | | | [address] | | | | | | [phone] | Misha Dye MD | | | | | | [address] | | | | | | [address] [place], [place] | | | | | | [address] | | | | | | | [...] | | | | | [place] [address] | | | | | | [phone] | | | | | | | | +--------+---------+ + + + documented as of this encounter Visit Diagnoses Not on filedocumented in this encounter"
--- OUTSIDE RECORDS SUMMARY | ~2019-11-09 | XMS | Encounter Summary ---
Demographics + + + | Address | [address] | | | [place] [address] | + + + | Home Phone | | + + + | Preferred Language | Unknown | + + + | Marital Status | Single | + + + | Pentecostalism Affiliation | 1009 | + + + | Race | Unknown | + + + | Ethnic Group | Unknown | + + + Author + + + | Author | [facility] | | | and [place] | + + + | Organization | [facility] | [...] Team Providers + +------+ + | Care Gambreler Name | Role | Phone | + +------+ + | Naren Nina PA-C | PCP | | + +------+ + Encounter Details +--------+ + + + + | Date | Type | Department | Care Team | Description | +--------+ + + + + | 05// | Orders Only | [facility] | Mariia Owusu, | | | 2013 | | [place] [facility] | AUTOMOTIVE UPHOLSTERER [address] | | | | | CARE [address] | [place] [address] | | | | | [place], [place] | [phone] | | | | | [address] | | | | | | [phone] | | | +--------+ + + + [...] | | | | | | [place] [address] | | | | | | [phone] | | | | | | | [...] | | | | | | [facility] | | | | | | DIVISION [...] + + | Performing | Address | City/State/[facility] | Phone Number | | Organization | [...] + + + + | HCV | [id number] (A)Comment: | [iU]/mL | EXTERNAL | | [...] /uL | EXTERNAL | | | CD4 ([place] | | | LAB | | | [...] | | | | | | DETERMINEDBY [facility] | | | | | | [facility] | | | | | | [place]. IT HAS NOT BEEN | | | [...]
--- OUTSIDE RECORDS SUMMARY | ~2019-11-09 | XMS | Encounter Summary ---
Demographics + + + | Address | [address] | | | [place] [address] | + + + | Home Phone | | + + + | Preferred Language | Unknown | + + + | Marital Status | Single | + + + | Spiritism Affiliation | 1009 | + + + | Race | Unknown | + + + | Ethnic Group | Unknown | + + + Author + + + | Author | [facility] | | | and [place] | + + + | Organization | [facility] | | [...] Team Providers + +------+ + | Care Tank Erector Name | Role | Phone | + +------+ + | Naren Nina PA-C | PCP | | + +------+ + Encounter Details +--------+ + + + + | Date | Type | Department | Care Team | Description | +--------+ + + + + | 03/17/ | Orders Only | [facility] | HallMaximiliano L, | | | 2013 | | [address]KLE XRAY [address] | DPM [address] | | | | | [address] | [address] [place], | | | | | [place], [place] | [place] [address] | | | | | [address] | [phone] | | | | | [phone] | | | +--------+ + + + [...] | | | | | [place] [address] | | | | | | [phone] | | | | | | | [...]
--- OUTSIDE RECORDS SUMMARY | ~2019-11-09 | XMS | Encounter Summary ---
Demographics + + + | Address | [address] | | | [place] [address] | + + + | Home Phone | | + + + | Preferred Language | Unknown | + + + | Marital Status | Single | + + + | Alevism Affiliation | 1009 | + + + | Race | Unknown | + + + | Ethnic Group | Unknown | + + + Author + + + | Author | [facility] | | | and [place] | + + + | Organization | [facility] | | | and [...] Team Providers + +------+ + | Care Cosmetic Sales Advisor Name | Role | Phone | + +------+ + PCP | Unavailable | + +------+ + Encounter Details +--------+ + + + + | Date | Type | Department | Care Team | Description | +--------+ + + + + | 07/13/ | Emergency | [facility] | Russell [place], | Right foot pain; | | 2011 | | MEDICAL CENTER | [address] | Right foot sprain | | | | EMERGENCY CENTER | [place] [address] | | | | | [address] | [phone] | | | | | [place], [place] | | | | | | [address] | | | | | | [phone] | | | +--------+ + + + [...] | | | | | | [place] [address] | | | | | | [phone] | | | | | | | [...]
--- OUTSIDE RECORDS SUMMARY | ~2019-11-09 | XMS | Encounter Summary ---
Demographics + + + | Address | [address] | | | [place] [address] | + + + | Home Phone [...] + + | Author | [facility] | | | and [place] | + + + | Organization | [facility] | | | and [place] [...] Team Providers + +------+ + | Care Elementary Instructional Coach Name | Role | Phone | [...] | Cervical | [address] | | | | n | radiculopath | [address] | [place], | | | | | y Left arm | [place], | [place] [address] | | | | | numbness | [place] [address] | Phone: | | | | | Left arm | Phone: | [phone] | | | | | weakness | [phone] | Fax: | | | | | Procedures | Fax: | [phone] | | | | | DOS 01/04/16 | [phone] | | +--------+ + + + + + Encounter Details +--------+ + + + + | Date | Type | Department | Care Team | Description | +--------+ + + + + | 01/31/ | Procedure | [facility] [place] | Henri Stewart, | Cervicalgia (Primary | | 2016 | visit | PHYSIATRY [address] | MD [address] | Dx); Cervical | | | | [address] | [place] | radiculopathy; | | | | [place], [place] | [address] | Cervical spinal | | | | [address] | | stenosis | | | | [phone] | | | +--------+ + + + [...] might be different fro m the original. 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 She reports that she sometimes drops objects [...] She has 4/5 biceps, deltoid and hand replenishment specialist strength on the left compared to 5/5 [...] B | | | | | | [place] [address] | | | | | | [phone] | | | | | | | [...]
--- OUTSIDE RECORDS SUMMARY | ~2019-11-09 | XMS | Encounter Summary ---
Demographics + + + | Address | [address] | | | [place] [address] | + + + | Home Phone | | + + + | Preferred Language | Unknown | + + + | Marital Status | Single | + + + | Mandaeism Affiliation | 1009 | + + + | Race | Unknown | + + + | Ethnic Group | Unknown | + + + Author + + + | Author | [facility] | | | and [place] | + + + | Organization | [facility] | | | and [place] [...] Team Providers + +------+ + | Care Team Cdl Driver Name | Role | Phone | + +------+ + | Hayden Acevedo MD | PCP | | + +------+ + Encounter Details +--------+ + + + + | Date | Type | Department | Care Team | Description | +--------+ + + + + | 08/07/ | Hospital | [facility] | Conversion | | | 2014 | Encounter | [facility] | Transaction, | | | | | [address] | Provider Unknown | | | | | [address] [place], [place] | | | | | | [address] | (Fax) | | | | | [phone] | | | +--------+ + + + [...] [address] | | | | | | [address] | | | | | | [place] [address] | | | | | | [phone] | | | | | | | | +--------+---------+ + + + documented as of this encounter Visit Diagnoses Not on filedocumented in this encounter"
--- OUTSIDE RECORDS SUMMARY | ~2019-11-09 | XMS | Encounter Summary ---
Demographics + + + | Address | [address] | | | [place] [address] | + + + | Home Phone [...] | Author | [facility] | | | and [place] | + + + | Organization | [facility] | | | and [place] [...] Team Providers + +------+ + | Care Ramp Attendant Name | Role | Phone | + +------+ + | Naren Nina PA-C | PCP | | + +------+ + Encounter Details +--------+ + + + + | Date | Type | Department | Care Team | Description | +--------+ + + + + | 01/07/ | Orders Only | [facility] | Provider, | | | 2019 | | SYSTEM GENERIC OP | MD [address] | | | | | [address] | [address] | | | | | [address] [place], [place] | [place] [address] | | | | | [address] | | | | | | [phone] | | | +--------+ + + + [...] | 2020 | Visit | | [address] | | [address] | | | | | | [place] [address] | | | | | | [phone] | | | | | | | | +--------+---------+ + + + documented as of this encounter Visit Diagnoses Not on filedocumented in this encounter"
--- OUTSIDE RECORDS SUMMARY | ~2019-11-09 | XMS | Encounter Summary ---
Demographics + + + | Address | [address] | | | [place] [address] | + + + | Home Phone [...] + + + | Author | [facility] | | | and [place] | + + + | Organization | [facility] | | | and [place] [...] Team Providers + +------+ + | Care Insulator Tester Name | Role | Phone | [...] Provider Unknown | | | | | [place], [place] | | | | | | [address] | (Fax) | | | | | [phone] | | | +--------+ + + + [...] | | | | | [place] [address] | | | | | | [phone] | | | | | | | [...] + + + + | FIBROSURE | [id number]: CIRRHOSIS | | EXTERNAL | | | [...] + + + + | Necroinflam | [id number]: SEVERE | | EXTERNAL | | | [...] + + + + | HCV | [id number] (A) | 0 IU/ml | EXTERNAL | [...]
--- OUTSIDE RECORDS SUMMARY | ~2019-11-09 | XMS | Encounter Summary ---
Demographics + + + | Address | [address] | | | [place] [address] | + + + | Home Phone [...] + + + | Author | [facility] | | | and [place] | + + + | Organization | [facility] | | [...] Team Providers + +------+ + | Care Blindmaker Name | Role | Phone | + [...] Provider Unknown | | | | | [place], [place] | | | | | | [address] | (Fax) | | | | | [phone] | | | +--------+ + + + [...] | | | | | [place] [address] | | | | | | [phone] | | | | | | | [...]
--- OUTSIDE RECORDS SUMMARY | ~2019-11-09 | XMS | Encounter Summary ---
Demographics + + + | Address | [address] | | | [place] [address] | + + + | Home Phone [...] + + + | Author | [facility] | | | and [place] | + + + | Organization | [facility] | | | and [place] [...] Team Providers + +------+ + | Care Technology Lab Teacher Name | Role | Phone | + +------+ + | Naren Nina PA-C | PCP | | + +------+ + Reason for Visit + + + | Reason | Comments | + + + | Appointment | | + + + Encounter Details +--------+ + + + + | Date | Type | Department | Care Team | Description | +--------+ + + + + | 10/20/ | Telephone | [facility] | Jose Gonzalez DO | Appointment | | 2020 | | NEUROSURGERY [address] | [address] | | | | | [address] | [address] | | | | | [place], [place] | [place] [address] | | | | | [address] | [phone] | | | | | [phone] | | | +--------+ + + + [...] | | | | | [place] [address] | | | | | | [phone] | | | | | | | | +--------+---------+ + + + documented as of this encounter Visit Diagnoses Not on filedocumented in this encounter"
--- OUTSIDE RECORDS SUMMARY | ~2019-11-09 | XMS | Encounter Summary ---
Demographics + + + | Address | [address] | | | [place] [address] | + + + | Home Phone | | + + + | Preferred Language | Unknown | + + + | Marital Status | Single | + + + | Judaism Affiliation | 1009 | + + + | Race | Unknown | + + + | Ethnic Group | Unknown | + + + Author + + + | Author | [facility] | | | and [place] | + + + | Organization | [facility] | | | and [place] [...] Team Providers + +------+ + | Care Timber Watchman Name | Role | Phone | + [...] + + | 10/28/ | Telephone | [facility] | Jose Gonzalez DO | Follow-up | | 2020 | | NEUROSURGERY [address] | [address] | | | | | [address] | [address] | | | | | [place], [place] | [place] [address] | | | | | [address] | [phone] | | | | | [phone] | | | +--------+ + + + [...] | | | | | [place] [address] | | | | | | [phone] | | | | | | | | +--------+---------+ + + + documented as of this encounter Visit Diagnoses Not on filedocumented in this encounter"
--- OUTSIDE RECORDS SUMMARY | ~2019-11-09 | XMS | Encounter Summary ---
Demographics + + + | Address | [address] | | | [place] [address] | + + + | Home Phone | | + + + | Preferred Language | Unknown | + + + | Marital Status | Single | + + + | Buddhism Affiliation | 1009 | + + + | Race | Unknown | + + + | Ethnic Group | Unknown | + + + Author + + + | Author | [facility] | | | and [place] | + + + | Organization | [facility] | | | and [place] [...] Team Providers + +------+ + | Care Poultry Slaughterer Name | Role | Phone | + [...] [address] | | | | | [place], [place] | [address] | | | | | [address] | [place] [address] | | | | | [phone] | [phone] | | | | | | | [...] | | | | | [place] [address] | | | | | | [phone] | | | | | | | [...] by | | | | | | [facility] liquid | | | | | [...]
--- OUTSIDE RECORDS SUMMARY | ~2019-11-09 | XMS | Encounter Summary ---
Demographics + + + | Address | [address] | | | [place] [address] | + + + | Home Phone [...] | Author | [facility] | | | and [place] | + + + | Organization | [facility] | [...] Team Providers + +------+ + | Care Airport Shuttle Driver Name | Role | Phone | + +------+ + | Hayden Acevedo MD | PCP | | + +------+ + Encounter Details +--------+ + + + + | Date | Type | Department | Care Team | Description | +--------+ + + + + | 12/11/ | Hospital | [facility] | Conversion | | | 2014 | Encounter | [facility] | Transaction, | | | | | [address] | Provider Unknown | | | | | [place], [place] | | | | | | [address] | (Fax) | | | | | [phone] | | | +--------+ + + + [...] [address] | | | | | | [employer] [address] | | | | | | [place] [address] | | | | | | [phone] | | | | | | | | +--------+---------+ + + + documented as of this encounter Visit Diagnoses Not on filedocumented in this encounter"
--- OUTSIDE RECORDS SUMMARY | ~2019-11-09 | XMS | Clinical Summary ---
Demographics + + + | Address | [address] | | | [place] [address] | + + + | Home Phone [...] + | Author | [facility] | | | and [place] | + + + | Organization | [facility] | | | and [...] Providers + +------+ + | Care Sales Manager Name | Role | Phone | [...] | | | | | Comments) Used WASH OIL PUMP OPERATOR | | | | | | and it lowered her | | | | | | BP And medication | | | | | | was stopped Other | | | | | | reaction(s): Other | | | | | | (See Comments) Used | | | | | | WASH OIL PUMP OPERATOR and it lowered | | | | | | her BP And | | | | | | medication was | | | | | | stopped Used WASH OIL PUMP OPERATOR | | | | | | [...] | will have pt speak with the cis coordinator today to help | | get [...] [employer] | | | | | | [address] | | | | | | [place] [address] | | | | | | [phone] | | | | | | | [...] | | | ETHS | | | /[address] | | | | | | | [...] +---------+--------+ | MEDICAID [place] | MEDICA | [id number] | 09/03/19 | [phone] | | Medica [...] [place] | | | 1 (Home) | [address] | + +--------+ +--------+ + + | Bisi Becker | Person | Self | [birth year] | [address] | | | al/Fam | | 1960 | [phone] | [place] | | | [place] | | | 1 (Home) | [address] | + +--------+ +--------+ + + Advance Directives + + + + + | Type | Date Recorded | Patient | Explanation | | | | Information Systems Planner | | + + + + + | Power of | | | | | Hospice Care Sales Consultant | | | | + + + + + | Advance | | | | | Directive | | | | + + + + +
--- OUTSIDE RECORDS SUMMARY | ~2019-11-09 | XMS | Encounter Summary ---
Demographics + + + | Address | [address] | | | [place] [address] | + + + | Home Phone | | + + + | Preferred Language | Unknown | + + + | Marital Status | Single | + + + | Hindu Affiliation | 1009 | + + + | Race | Unknown | + + + | Ethnic Group | Unknown | + + + Author + + + | Author | [facility] | | | and [place] | + + + | Organization | [facility] | | | and [...] Team Providers + +------+ + | Care Vamp Throater Name | Role | Phone | + [...] Provider Unknown | | | | | [place], [place] | | | | | | [address] | (Fax) | | | | | [phone] | | | +--------+ + + + [...] | | | | | [place] [address] | | | | | | [phone] | | | | | | | [...] g/dL Ref Range: | | | 0.6-1.5 [place] .[place] [facility] | | | Result: 3.55 mg/dL Ref | | | Range: 0.33-1.94 .[facility] | | | Result: 2.28 mg/dL Ref Range: 0.57-2.63 | | | .[place] Ratio Result: 1.56 | | | [...]
--- OUTSIDE RECORDS SUMMARY | ~2019-11-09 | XMS | Encounter Summary ---
Demographics + + + | Address | [address] | | | [place] [address] | + + + | Home Phone [...] Author | [facility] | | | and [place] | + + + | Organization | [facility] [...] Team Providers + +------+ + | Care Cellar Hand Name | Role | Phone | + +------+ + | Naren Nina PA-C | PCP | | + +------+ + Encounter Details +--------+ + + + + | Date | Type | Department | Care Team | Description | +--------+ + + + + | 05// | Orders Only | [facility] | Mariia Owusu, | | | 2013 | | [facility] | OYSTER WORKER [address] | | | | | CARE [address] | [place] [address] | | | | | [place], [place] | [phone] | | | | | [address] | | | | | | [phone] | | | +--------+ + + + [...] | | | | | [place] [address] | | | | | | [phone] | | | | | | | [...] | | | | | | [facility] | | | | | | [facility] [...] + + | Performing | Address | City/State/[facility] | Phone Number | | Organization [...] + + + + | HCV | [id number] (A)Comment: | [iU]/mL | EXTERNAL | | [...] /uL | EXTERNAL | | | CD4 ([place] | | | LAB | | | [...] | | | | | | DETERMINEDBY [facility] | | | | | | [facility] | | | | | | [place]. IT HAS NOT BEEN | | | [...]
--- OUTSIDE RECORDS SUMMARY | ~2019-11-09 | XMS | Encounter Summary ---
Demographics + + + | Address | [address] | | | [place] [address] | + + + | Home Phone [...] Author | [facility] | | | and [place] | + + + | Organization | [facility] | [...] Team Providers + +------+ + | Care Independent Driver Name | Role | Phone | + +------+ + | Hayden Acevedo MD | PCP | | + +------+ + Encounter Details +--------+ + + + + | Date | Type | Department | Care Team | Description | +--------+ + + + + | 12/11/ | Hospital | [facility] | Conversion | | | 2014 | Encounter | [facility] | Transaction, | | | | | CLINIC [address] | Provider Unknown | | | | | [place], [place] | [phone] | | | | | [address] | (Fax) | | | | | [phone] | | | +--------+ + + + [...] | | | | | [place] [address] | | | | | | [phone] | | | | | | | [...] LAB | | | | Blvd;[place] [address] | | | | + + + + + + | Antibody | NEGATIVE | | EXTERNAL | | | Screen | | | LAB | | + + + + + + | Antibody | Testing performed at | | EXTERNAL | | | Screen | [facility] | | LAB | | | | Blvd;[place] [address] | | | | + + + [...] | | | | | performed at [facility], [address] | | | | | | [facility], | | | | | | [place] [address] | | | | + + + [...] EXTERNAL | | | | performed at [facility], [address] | | LAB | | | | [address], | | | | | | [place] [address] | | | | + + + + + + | Red Blood | 4.38Comment: Testing | 3.70 - 5.10 | EXTERNAL | | | Cells | performed at [facility], [address] | M/uL | LAB | | | Counted | [address], | | | | | | [place] [address] | | | | + + + + + + | Hemoglobin | 13.1Comment: Testing | 11.3 - 15.5 | EXTERNAL | | | | performed at [facility], [address] | g/dL | LAB | | | | [address], | | | | | | [place] [address] | | | | + + + + + + | Hematocrit, | 40.3Comment: Testing | 34.0 - 46.0 % | EXTERNAL | | | POC | performed at [facility], [address] | | LAB | | | | [address], | | | | | | [place] [address] | | | | + + + + + + | MCV | 92.1Comment: Testing | 80.0 - 100.0 fl | EXTERNAL | | | | performed at [facility], [address] | | LAB | | | | [address], | | | | | | [place] [address] | | | | + + + + + + | MCH | 29.9Comment: Testing | 27.0 - 34.0 pg | EXTERNAL | | | | performed at [facility], [address] | | LAB | | | | [address], | | | | | | [place] [address] | | | | + + + + + + | MCHC | 32.5Comment: Testing | 32.0 - 35.5 | EXTERNAL | | | | performed at [facility], [address] | g/dL | LAB | | | | [address], | | | | | | [place] [address] | | | | + + + + + + | RDW-CV | 48.1Comment: Testing | 37 - 53 fl | EXTERNAL | | | | performed at [facility], [address] | | LAB | | | | [address], | | | | | | [place] [address] | | | | + + + + + + | Platelet | 271Comment: Testing | 150 - 400 K/uL | EXTERNAL | | | Count | performed at [facility], [address] | | LAB | | | Plasma | [address], | | | | | | [place] [address] | | | | + + + + + + | MPV | 8.8Comment: Testing | fl | EXTERNAL | | | | performed at [facility], [address] | | LAB | | | | [address], | | | | | | [place] [address] | | | | + + + + + + | Differentia | AUTOMATEDComment: | | EXTERNAL | | | l Type | Testing performed at | | LAB | | | | [facility], [address] | | | | | | [place] | | | | | | [address] | | | | + + + + + + | % Segmented | 52.9Comment: Testing | % | EXTERNAL | | | | performed at [facility], [address] | | LAB | | | Neutrophils | [address], | | | | | | [place] [address] | | | | + + + + + + | % | 33.3Comment: Testing | % | EXTERNAL | | | Lymphocytes | performed at [facility], [address] | | LAB | | | | [address], | | | | | | [place] [address] | | | | + + + + + + | % Monocytes | 7.9Comment: Testing | % | EXTERNAL | | | | performed at [facility], [address] | | LAB | | | | [address], | | | | | | [place] [address] | | | | + + + + + + | % | 5.1Comment: Testing | % | EXTERNAL | | | Eosinophils | performed at [facility], [address] | | LAB | | | | [address], | | | | | | [place] [address] | | | | + + + + + + | % Basophils | 0.8Comment: Testing | % | EXTERNAL | | | | performed at [facility], [address] | | LAB | | | | [address], | | | | | | [place] [address] | | | | + + + + + + | Absolute | 3.6Comment: Testing | 1.9 - 7.4 K/uL | EXTERNAL | | | Segmented | performed at [facility], [address] | | LAB | | | Neutrophils | [address], | | | | | | [place] [address] | | | | + + + + + + | Absolute | 2.3Comment: Testing | 1.0 - 3.9 K/uL | EXTERNAL | | | Lymphocytes | performed at [facility], [address] | | LAB | | | | [address], | | | | | | [place] [address] | | | | + + + + + + | Absolute | 0.5Comment: Testing | 0 - 0.8 K/uL | EXTERNAL | | | Monocytes | performed at [facility], [address] | | LAB | | | | [address], | | | | | | [place] [address] | | | | + + + + + + | Absolute | 0.3Comment: Testing | 0 - 0.5 K/uL | EXTERNAL | | | Eosinophils | performed at [facility], [address] | | LAB | | | | [address], | | | | | | [place] [address] | | | | + + + + + + | Absolute | 0.1Comment: Testing | 0 - 0.1 K/uL | EXTERNAL | | | Basophils | performed at [facility], [address] | | LAB | | | | [address], | | | | | | [place] [address] | | | | + + + [...] | | | | | [place] [address] | | | | + + + + + + | K | 3.5Comment: Testing | 3.5 - 4.9 | EXTERNAL | | | | performed at [facility], [address] | mmol/L | LAB | | | | [address], | | | | | | [place] [address] | | | | + + + + + + | Cl | 108Comment: Testing | 99 - 109 mmol/L | EXTERNAL | | | | performed at [facility], [address] | | LAB | | | | [address], | | | | | | [place] [address] | | | | + + + + + + | CO2 | 27Comment: Testing | 23 - 32 mmol/L | EXTERNAL | | | | performed at [facility], [address] | | LAB | | | | [address], | | | | | | [place] [address] | | | | + + + + + + | Anion Gap | 6Comment: Testing | 5 - 20 mmol/L | EXTERNAL | | | | performed at [facility], [address] | | LAB | | | | [address], | | | | | | [place] [address] | | | | + + + + + + | Glucose, | 104 (H)Comment: Testing | 65 - 99 mg/dL | EXTERNAL | | | Fasting | performed at [facility], [address] | | LAB | | | | [address], | | | | | | [place] [address] | | | | + + + + + + | BUN | 21Comment: Testing | 8 - 25 mg/dL | EXTERNAL | | | | performed at [facility], [address] | | LAB | | | | [address], | | | | | | [place] [address] | | | | + + + + + + | Creatinine | 0.84Comment: Testing | 0.50 - 1.00 | EXTERNAL | | | | performed at [facility], [address] | mg/dL | LAB | | | | [address], | | | | | | [place] [address] | | | | + + + + + + | BUN/Creatin | 25Comment: Testing | | EXTERNAL | | | ine Ratio | performed at [facility], [address] | | LAB | | | | [address], | | | | | | [place] [address] | | | | + + + + + + | Calcium | 10.1Comment: Testing | 8.5 - 10.2 | EXTERNAL | | | | performed at [facility], [address] | mg/dL | LAB | | | | [address], | | | | | | [place] [address] | | | | + + + + + + | Protein, | 8.2Comment: Testing | 6.3 - 8.2 g/dL | EXTERNAL | | | Total | performed at [facility], [address] | | LAB | | | | [address], | | | | | | [place] [address] | | | | + + + + + + | Albumin | 3.8Comment: Testing | 3.6 - 5.0 g/dL | EXTERNAL | | | | performed at [facility], [address] | | LAB | | | | [address], | | | | | | [place] [address] | | | | + + + + + + | Globulin | 4.4Comment: Testing | 1.3 - 4.9 g/dL | EXTERNAL | | | | performed at [facility], [address] | | LAB | | | | [address], | | | | | | [place] [address] | | | | + + + + + + | A/G Ratio | 0.9 (L)Comment: Testing | 1.0 - 2.4 | EXTERNAL | | | | performed at [facility], [address] | | LAB | | | | [address], | | | | | | [place] [address] | | | | + + + + + + | Bilirubin | 0.2Comment: Testing | 0.1 - 1.5 mg/dL | EXTERNAL | | | Total | performed at [facility], [address] | | LAB | | | | [address], | | | | | | [place] [address] | | | | + + + + + + | ALP, | 94Comment: Testing | 35 - 115 U/L | EXTERNAL | | | External | performed at [facility], [address] | | LAB | | | | [address], | | | | | | [place] [address] | | | | + + + + + + | AST | 126 (H)Comment: Testing | 10 - 45 U/L | EXTERNAL | | | | performed at [facility], [address] | | LAB | | | | [address], | | | | | | [place] [address] | | | | + + + + + + | ALT | 164 (H)Comment: Testing | 10 - 65 U/L | EXTERNAL | | | | performed at [facility], [address] | | LAB | | | | [address], | | | | | | [place] [address] | | | | + + + [...] | | | | | | at [facility], [address] | | | | | | [address], | | | | | | [place] [address] | | | | + + + [...]
--- OUTSIDE RECORDS SUMMARY | ~2019-11-09 | XMS | Encounter Summary ---
Demographics + + + | Address | [address] | | | [place] [address] | + + + | Home Phone [...] + | Author | [facility] | | | and [place] | + + + | Organization | [facility] | | | and [place] | [...] Team Providers + +------+ + | Care Security Expert Name | Role | Phone | + [...] | | | | EMERGENCY CENTER | [place] [address] | | | | | [address] | [phone] | | | | | [place], [place] | | | | | | [address] | | | | | | [phone] | | | +--------+ + + + [...] | | | | | | [place] [address] | | | | | | [phone] | | | | | | | [...] | Procedure Note | + + | Dihraj, Rad Conversion - 01/25/2019 8:08 AM PDT [...]
--- OUTSIDE RECORDS SUMMARY | ~2019-11-09 | XMS | Encounter Summary ---
Demographics + + + | Address | [address] | | | [place] [address] | + + + | Home Phone | | + + + | Preferred Language | Unknown | + + + | Marital Status | Single | + + + | Catholic Affiliation | 1009 | + + + | Race | Unknown | + + + | Ethnic Group | Unknown | + + + Author + + + | Author | [facility] | | | and [place] | + + + | Organization | [facility] | | | and [place] | [...] Team Providers + +------+ + | Care Logging Operations Inspector Name | Role | Phone | + +------+ + | Hayden Acevedo MD | PCP | | + +------+ + Encounter Details +--------+ + + + + | Date | Type | Department | Care Team | Description | +--------+ + + + + | 01/30/ | Hospital | [facility] | Juan Alberto Worrell MD | Thoracic or | | 2013 | Encounter | [facility] [address] | [address] | lumbosacral neuritis | | | | [address] | [address]LO[address] | or radiculitis, | | | | [place], [place] | [address] [place] | unspecified; | | | | [address] | [address] | Radiculopathy of | | | | [phone] | [phone] | lumbar region; | | | | | | Stenosis of | | | | | | lumbosacral spine | +--------+ + + + + Social [...] Progress Notes Conversion Transaction, Provider Unknown - 01/30/2014 6:00 PM PDTFormatting of this note m ight be different from the original. Progress Notes by Geovanna Fischer RN at 01/30/14 1800 Author: Geovanna Fischer RN Service: (none) Author Type: Registered Nurse Filed: 01/30/14 190 Date of Service: 01/30/14 1800 Status: Signed Application Security Specialist: Geovanna Fischer RN (Registered Nurse) Discharge teaching done. Paperwork and prescriptions given. Patient claims to have no fur ther questions or concerns. Patient stable and pain is under control. Patient escorted by s taff to personal vehicle home with family. Geovanna Fischer RN 01/30/2014 Keesha Bingham PA - 01/30/2014 4:02 PM PDTFormatting of this note might be different from the or iginal. Progress Notes by Keesha Betancourt PA-C at 01/30/14 1602 Author: Keesha Betancourt PA-C Service: Neurosurgery Author Type: Physician Terrazzo Finisher Helper - Ce rtified Filed: 01/30/14 1606 Date of Service: 01/30/14 1602 Status: Signed Application Security Specialist: Keesha Betancourt PA-C (Physician Terrazzo Finisher Helper - Certified) [facility] Service: Neurosurgery Progress Note Hospital Day: LOS: 0 days Post-Op Day: Day of Surgery SUBJECTIVE Patient Summary: s/p L4-5 hemilaminectomy for L5 nerve root decompression Patient doing well. Reports good pain control. Walking with PT. Eating well. Has used restroom. No numbness, tingling, weakness. Very thankful to have the surgery. Scheduled Medications buPROPion 150 mg Oral BID ceFAZolin 2 g Intravenous Q8H docusate sodium 100 mg Oral BID FLUoxetine 40 mg Oral Daily gabapentin 600 mg Oral Nightly [START ON 01/31/2014] levothyroxine 25 mcg Oral QAM AC lidocaine buffered 1% lisinopril 10 mg Oral Daily loratadine 10 mg Oral Daily midazolam OLANZapine 10 mg Oral Nightly [START ON 01/31/2014] omeprazole 20 mg Oral QAM AC Continuous Infusions 0.9 % NaCl with KCl 20 mEq Stopped (01/30/14 1536) PRN Medications acetaminophen, acetaminophen, albuterol, baclofen, baclofen, benzonatate, HYDROmorphone, HY DROmorphone, hydrOXYzine, ipratropium-albuterol, LORazepam, ondansetron, ondansetron, oxyCOD ONE-acetaminophen, oxyCODONE-acetaminophen, sodium chloride OBJECTIVE Vital Signs: BP 132/75 | Pulse 97 | Temp(Src) 98.2 F (36.8 C) (Oral) | Resp 18 | Ht 1.676 m (5' 6") | Wt 105.8 kg (233 lb 4 oz) | BMI 37.66 kg/m2 | SpO2 99% | ? No I&O Current Shift: 01/30 0700 - 01/30 1859 In: 2800 [P.O.:600; I.V.:2200] Out: - Gen: NAD, appears comfortable Neuro: moving UE and LE well. Walking. Light touch sensation grossly intact. Dressing clean. PROBLEM LIST Active Problems: Radiculopathy of lumbar region Stenosis of lumbosacral spine Lumbosacral radiculopathy at L5 Lumbar facet arthropathy ASSESSMENT & PLAN POD) s/p left L4-5 hemilaminectomy for L5 nerve root decompression, doing well. Discharge home. Follow up in 2 weeks in [facility] clinic. Discharge instructions given. Rx giv en for percocet and rolling walker. Disposition: Good Code Status: Full Code Keesha Betancourt PA-C 01/30/2014 lmendel, Me singh Hitlon PT - 01/30/2014 2:44 PM PDTFormatting of this note might be different from the christian saeed. Therapy Progress Note by Demi Paige, PT at 01/30/14 1444 Author: Demi Paige PT Service: (none) Author Type: Physical Therapist Filed: 01/30/14 1540 Date of Service: 01/30/141443 Status: Signed Application Security Specialist: Demi Paige PT (Physical Therapist) 01/30/14 1444 PT Last Visit PT Received On 01/30/14 Reason for Treatment Spinal surgery Requires PT Follow Up No PT Eval/Reassessment Date 01/30/14 Assistance Required 1 person;Independent Power Transformer Assembler Needed No Requires PT Follow Up No Precautions Spinal Precautions Lumbar Plan Treatment/Interventions Discharge skilled PT services Progress Reached highest level of independence with therapy PT Frequency Evaluation only Care Duration (# of days) 1 # of days Home Environment Type of Home Home manufactured single wide Home Exterior Layout 1-3 steps (3 CLARA with railing) Home Interior Layout Lives on main level with bedroom/bathroom Bathroom Shower/Tub Tub/shower unit Bathroom Toilet Standard Home Equipment None (Pt needs FWW for access in home) Additional Comments Pt reports one fall about 6 months, she reports due to ankle OA. Recommendation Recommendations Return to prior living situation Equipment Recommended Walker front wheeled Prior Function Level of [place] Modified independent with functional mobility;Modified independent wi th ADLs;Assist with IADLs (assist with meals, cleaning, etc) Lives With (Jayson, and Uncle Marvin) Receives Help From Family RUE Assessment RUE Assessment WFL LUE Assessment LUE Assessment WFL RLE Assessment RLE Assessment WFL LLE Assessment LLE Assessment WFL Cognition Overall Cognitive Status WFL Orientation Level Oriented Sensation Light Touch No apparent deficits Vision-Basic Assessment Current Vision No visual deficits Assessment of Patient Status Assessment of Patient Status (no skilled needs identified) Safety Devices Safety Devices in Place (Pt' S.O. present, call light in reach) 01/30/14 1444 PT Last Visit PT Received On 01/30/14 Reason for Treatment Spinal surgery Requires PT Follow Up No PT Eval/Reassessment Date 01/30/14 Assistance Required 1 person;Independent Power Transformer Assembler Needed No Precautions Spinal Precautions Lumbar Other Comments Comments Pt is a 53 year old female s/p L4-5 hemilaminectomy. PMH: hep C, IV drug use, bip olar, COPD, HTN, anxiety, thyroid disease, skin CA, gout, OA, CKD, multiple surgeries Cognition Overall Cognitive Status WFL Orientation Level Oriented Bed Mobility Rolling Supervison Supine to Sit Supervision (Performed multiple times to practice technique) Sit to Supine Supervision Scooting Supervision Transfers Sit to/from Stand Supervision Mobility Weight Bearing Status WBAT RLE;WBAT LLE Ambulation Assistance Supervision;Modified independent Maximal Ambulation Distance (feet) >1000ft Total Ambulation Distance (feet) >1000ft Distance limited by? Therapist/staff discretion Pattern Alternating;Right swing foot passes stance foot;Left swing foot passes stance foot; Right step height adequate;Left step height adequate Assistive Device Walker front wheeled Stairs Assistance (Pt declines stair training at this time) Balance Balance (no concerns with use of FWW) Modalities Modalities Other therapy Other Therapy Educated pt regarding lumbar spinal precautions (handout provided), sleep pos itions and use of pillow for comfort, frequent walks, use of FWW, activity progression Activity Tolerance Activity Tolerance Patient tolerated treatment without report of fatigue Nurse Made Aware RN Geovanna Safety Devices Safety Devices in Place (Pt' S.O. present, call light in reach) Plan Treatment/Interventions Discharge skilled PT services Progress Reached highest level of independence with therapy PT Frequency Evaluation only Care Duration (# of days) 1 # of days Recommendation Recommendations Return to prior living situation Equipment Recommended Walker front wheeled Requires PT Follow Up No VS: 105/58 94 97% (pre-activity supine) Marnie Cueva RPH - 01/30/2014 11:22 AM PDT Progress Notes by Marnie Dewitt RPH at 01/30/14 112 Author: Marnie Dewitt RPH Service: (none) Author Type: Pharmacist Filed: 01/30/141121 Date of Service: 01/30/141121 Status: Signed Application Security Specialist: Marnie Dewitt RPH (Pharmacist) Renal Dosing Monitoring: Nohemi Espitia 53 y.o. female Pharmacy dosing for renal function per Porfirio Betancourt Plan per protocol: No scr available at this time Pharmacy will continue monitoring patient for appropriate dosing per renal function. 01/30/2014 11:22 AM Pharmacist: MARNIE DEWITT docuana d in this encounter Plan of Treatment +--------+---------+ + + + | Date | Type | Specialty | Care Team | Description | +--------+---------+ + + + | 11/09/ | Office | Neurosurgery | Jose Gonazlez DO | | | 2020 | Visit | | [address] | | | | | | [place] [address] | | | | | | [phone] | | | | | | | | +--------+---------+ + + + documented as of this encounter Procedures + +--------+ + + + | Procedure Name | Priori | Date/Time | Associated Diagnosis | Comments | | | ty | | | | + +--------+ + + + | FL C ARM > 1 HOUR | Routin | 01/30/2014 | | Results for this | | | e | 9:07 AM | | procedure are in the | | | | PDT | | results section. | + +--------+ + + + documented in this encounter Results FL C-Arm > 1 Hour (01/30/2014 9:07 AM PDT) + + | Specimen | + + | | + + + + + | Impressions | Performed At | + + + | As above. Electronically signed by Jas Horton MD on | | | 01/30/2014 11:10 AM | | + + + + + + | Narrative | Performed At | + + + | [facility] XR C-ARM FLUORO OVER 1 HOUR 01/30/2014 9:07 AM | | | History: 53 years. Female. Localization for lumbar surgery. | | | The lumbosacral junction is visualized with one fluoroscopic images | | | in the operating room in the crosstable lateral projection. The total | | | fluoroscopic time was 5.8 seconds. Findings: A cross table | | | lateral intraoperative fluoroscopic image of the lumber spine shows | | | surgical instrumentation directed posteriorly at the L5-S1 level for | | | operative localization. | | + + + + ---+ | Procedure Note | + ---+ | Dhiraj, Nikita Conversion - 01/18/2019 1:22 AM PDT [facility] C-ARM FLUORO OVER 1 | | HOUR01/30/2014 9:07 AM History: 53 years. Female. Localization for lumbar surgery. The | | lumbosacral junction is visualized with one fluoroscopic images in the operating room | | in the crosstable lateral projection. The total fluoroscopic time was 5.8 seconds. | | Findings: A cross table lateral intraoperative fluoroscopic image of the lumber spine | | shows surgical instrumentation directed posteriorly at the L5-S1 level for operative | | localization. IMPRESSION: As above. Electronically signed by Jas Horton MD on | | 01/30/2014 11:10 AM | |Findings: A cross table lateral intraoperative fluoroscopic image of the lumber spine show s surgical instrumentation directed posteriorly at the L5-S1 level for operative localizatio n. | | | | | |IMPRESSION: | |As above. | | | | | + ---+ documented in this encounter Visit Diagnoses + + | Diagnosis | + + | Thoracic or lumbosacral neuritis or radiculitis, unspecified | + + | Radiculopathy of lumbar region Thoracic or lumbosacral neuritis or radiculitis, | | unspecified | + + | Stenosis of lumbosacral spine Spinal stenosis, lumbar region, without neurogenic | | claudication | + + documented in this encounter
--- OUTSIDE RECORDS SUMMARY | ~2019-11-09 | XMS | Encounter Summary ---
Demographics + + + | Address | [address] | | | [place] [address] | + + + | Home Phone | | + + + | Preferred Language | Unknown | + + + | Marital Status | Single | + + + | Temple Affiliation | 1009 | + + + | Race | Unknown | + + + | Ethnic Group | Unknown | + + + Author + + + | Author | [facility] | | | and [place] | + + + | Organization | [facility] | | | and [...] Team Providers + +------+ + | Care Personal Vehicle Advisor Name | Role | Phone | + +------+ + | Naren Nina PA-C | PCP | | + +------+ + Encounter Details +--------+ + + + + | Date | Type | Department | Care Team | Description | +--------+ + + + + | 03// | Orders Only | [facility] | aMriia Owusu, | | | 2013 | | [facility] | DIRECTOR CAREER [address] | | | | | CARE [address] | [place] [address] | | | | | [place], [place] | [phone] | | | | | [address] | | | | | | [phone] | | | +--------+ + + + [...] Filed: 08/13/131737 Encounter Date: 08/13/2013 Status: Signed Field Support Technician: Olesya Martinez Message copied by OLESYA MARTINEZ on SunAug 13, 2013 5:38 PM ------ Message from: SAMREEN SKINNER Created: SunAug 13, 2013 3:55 PM Contact: 4-Ruth- order-STRAND Ruth from [facility] need for blood work BUN and Creatine for upcoming MRI, patient wi ll need to have this done at tomorrow appointment since the MRI is scheduled for 08/18. If you have any questions, Please call patient back at [phone]. Thank you, Samreen Skinner Chiseler Head LANAdoblaine kennedy in this encounter Plan of Treatment +--------+---------+ + + + | Date | Type | Specialty | Care Team | Description | +--------+---------+ + + + | 11/09/ | Office | Neurosurgery | Jose Gonzalez DO | | | 2019 | Visit | | [address] | | | | | | [place] [address] | | | | | | [phone] | | | | | | | [...] EXTERNAL | | | | performed at [facility];[address] | LAB | | | | [address];[place] [address] | | | | + + + [...] [address] | | [address] | [address];[place] [address] | | | | + + + [...]
--- OUTSIDE RECORDS SUMMARY | ~2019-11-09 | XMS | Encounter Summary ---
Demographics + + + | Address | [address] | | | [place] [address] | + + + | Home Phone | | + + + | Preferred Language | Unknown | + + + | Marital Status | Single | + + + | Worship Affiliation | 1009 | + + + | Race | Unknown | + + + | Ethnic Group | Unknown | + + + Author + + + | Author | [facility] | | | and [place] | + + + | Organization | [facility] | | | and [...] Team Providers + +------+ + | Care Home Health Caregiver Name | Role | Phone | + +------+ + | Hayden Acevedo MD | PCP | | + +------+ + Encounter Details +--------+ + + + + | Date | Type | Department | Care Team | Description | +--------+ + + + + | 06/22/ | Emergency | [facility] | Navneet Stewart | Cough; | | 2013 | | MEDICAL CENTER | DO Jazlyn Lopez [address] [place] | Fever; | | | | EMERGENCY CENTER | [place], [place] | Bronchitis; | | | | [address] | [address] | Dyspnea | | | | [place], [place] | | | | | | [address] | | | | | | [phone] | | | +--------+ + + + [...] | | | | | [place] [address] | | | | | | [phone] | | | | | | | [...] ICA | | | Testing performed at [facility];[address] [place] [address];[place] [address] | | | REPORT STATUS 06/22/2013 FINAL [...] COCCOBACILLI | | | Testing performed at [facility], [address] [place] [address], | | | [place] [address] CULTURE | | | SMEAR CONTAINS GREATER THAN 10 SEC/LPF SUGGESTIVE OF POOR QUALITY | | | SPECIMEN. SPECIMEN WILL NOT BE CULTURED OR WILL BE CULTURED BY | | | SPECIAL REQUEST ONLY. PLEASE RECOLLECT IF CLINICALLY INDICATED. | | | SPECIMEN WILL BE HELD 48 HOURS. | | | Testing performed at [facility], [address] [place] [address], | | | [place] [address] REPORT STATUS | | | 06/23/2013 FINAL [...]
--- OUTSIDE RECORDS SUMMARY | ~2019-11-09 | XMS | Encounter Summary ---
Demographics + + + | Address | [address] | | | [place] [address] | + + + | Home Phone | | + + + | Preferred Language | Unknown | + + + | Marital Status | Single | + + + | Samaritan Affiliation | 1009 | + + + | Race | Unknown | + + + | Ethnic Group | Unknown | + + + Author + + + | Author | [facility] | | | and [place] | + + + | Organization | [facility] | | | and [place] [...] Team Providers + +------+ + | Care Armored Car Driver Name | Role | Phone | [...] Provider Unknown | | | | | [place], [place] | | | | | | [address] | (Fax) | | | | | [phone] | | | +--------+ + + + [...] | | | | | [place] [address] | | | | | | [phone] | | | | | | | [...] + + + + | FIBROSURE | [id number]: minimal | | EXTERNAL | | | [...] + + + + | Necroinflam | [id number]: significant | | EXTERNAL | | | [...] + + + | HCV-LOG 10 | [id number] (A) | 0 Log IU/ml | EXTERNAL [...]
--- OUTSIDE RECORDS SUMMARY | ~2019-11-09 | XMS | Encounter Summary ---
Demographics + + + | Address | [address] | | | [place] [address] | + + + | Home Phone [...] Author | [facility] | | | and [place] | + + + | Organization | [facility] | | | [...] Team Providers + +------+ + | Care Animal Care Attendant Name | Role | Phone | [...] + + | 10/20/ | Telephone | [facility] | Jose Gonzalez DO | Appointment | | 2020 | | NEUROSURGERY [address] | [address] | | | | | [address] | [address] | | | | | [place], [place] | [place] [address] | | | | | [address] | [phone] | | | | | [phone] | | | +--------+ + + + [...] | | | | | [place] [address] | | | | | | [phone] | | | | | | | | +--------+---------+ + + + documented as of this encounter Visit Diagnoses Not on filedocumented in this encounter"
--- OUTSIDE RECORDS SUMMARY | ~2019-11-09 | XMS | Encounter Summary ---
Demographics + + + | Address | [address] | | | [place] [address] | + + + | Home Phone [...] Author | [facility] | | | and [place] | + + + | Organization | [facility] | | | and [...] Team Providers + +------+ + | Care Certified Court Interpreter Name | Role | Phone | + +------+ + | Naren Nina PA-C | PCP | | + +------+ + Encounter Details +--------+ + + + + | Date | Type | Department | Care Team | Description | +--------+ + + + + | 06/06/ | Hospital | [facility] | Conversion | Lumbar radiculopathy | | 2018 | Encounter | [facility] | Transaction, | | | | | [address] [place] | Provider Unknown | | | | | [address] [place], [place] | [phone] | | | | | [address] | | | | | | [phone] | Jose Gonzalez DO | | | | | | [address] | | | | | | [address] [place], | | | | | | [place] [address] | | | | | | [phone] | | | | | | | [...] | (DESYREL) 100 mg | nightly. Take /-2 | | | | | | tablet [...] | | | | | [place] [address] | | | | | | [phone] | | | | | | | [...] + + | Nikita Hearn - 01/15/2019 5:31 AM PDT [facility]1960XR LUMBAR | | SPINE 4 OR [...]
--- OUTSIDE RECORDS SUMMARY | ~2019-11-09 | XMS | Encounter Summary ---
Demographics + + + | Address | [address] | | | [place] [address] | + + + | Home Phone | | + + + | Preferred Language | Unknown | + + + | Marital Status | Single | + + + | Jew Affiliation | 1009 | + + + | Race | Unknown | + + + | Ethnic Group | Unknown | + + + Author + + + | Author | [facility] | | | and [place] | + + + | Organization | [facility] | | | and [...] Providers + +------+ + | Care Customer Care Representative Name | Role | Phone | + +------+ + | Hayden Acevedo MD | PCP | | + +------+ + Encounter Details +--------+ + + + + | Date | Type | Department | Care Team | Description | +--------+ + + + + | 08/19/ | Hospital | [facility] | Conversion | LBP radiating to | | 2013 | Encounter | [facility] | Transaction, | left leg | | | | [address] | Provider Unknown | | | | | [place], [place] | | | | | | [address] | (Fax) | | | | | [phone] | | | +--------+ + + + [...] [address] | | | | | | [address] | | | | | | [place] [address] | | | | | | [phone] | | | | | | | [...]
--- OUTSIDE RECORDS SUMMARY | ~2019-11-09 | XMS | Encounter Summary ---
Demographics + + + | Address | [address] | | | [place] [address] | + + + | Home Phone [...] + | Author | [facility] | | | and [place] | + + + | Organization | [facility] | | [...] Team Providers + +------+ + | Care Municipal Engineer Name | Role | Phone | [...] Provider Unknown | | | | | [place], [place] | [phone] | | | | | [address] | | | | | | [phone] | | | +--------+ + + + [...] | | | | | [place] [address] | | | | | | [phone] | | | | | | | [...]
--- OUTSIDE RECORDS SUMMARY | ~2019-11-09 | XMS | Encounter Summary ---
Demographics + + + | Address | [address] | | | [place] [address] | + + + | Home Phone [...] + | Author | [facility] | | | and [place] | + + + | Organization | [facility] | | | and [place] | [...] Team Providers + +------+ + | Care Front Desk Supervisor Name | Role | Phone | + +------+ + | Hayden Acevedo MD | PCP | | + +------+ + Encounter Details +--------+ + + + + | Date | Type | Department | Care Team | Description | +--------+ + + + + | 01/10/ | Hospital | [facility] | Sveta Calderon, | Acute renal failure, | | 2015 - | Encounter | [facility] | [address] | unspecified acute | | | | CARE FLOOR [address] | [place] [address] | renal failure type | | 01/13/ | | [address] | [phone] | (HCC); Essential | | 2014 | | [place], [place] | | hypertension; | | | | [address] | | Leukocytosis, | | | | [phone] | | unspecified; | | | | [...] documented as of this encounter Discharge Summaries Tioc Suarez MD - 01/13/2015 2:39 PM PDTFormatting of this note might be differe nt from the original. Discharge Summaries by Tico Suarez MD at 01/13/15 1439 Author: Tico Suarez MD Service: Hospitalist Author Type: Physician Filed: 01/13/152054 Date of Service: 01/13/151438 Status: Signed Sheet Metal Welder: Tico Suarez MD (Physician) Related Notes: Original Note by Tico Suarez MD (Physician) filed at 01/13/15 14 55 [facility] Service: Hospitalist Physician Discharge Summary Pt: Nohemi Espitia AGE/SEX: 54 y.o. female ROOM: [facility]/6608-1 PCP: Naren Nina (General) : 1960 [...] 54 No results for input(s): PHART, PO2ART, XSH9JKH, [id number], BEART in the last 168 hours. Recent [...] with you. STOP taking these medications ergocalciferol 89383 UNITS capsule Commonly known as: DRISDOL famotidine [...] 01/12/152053 Date of Service: 01/12/152047 Status: Signed Sheet Metal Welder: Jackson Mas MD (Physician) [facility] Service: Gastroenterology Progress Note Hospital Day: LOS: [...] 01/12/152101 Date of Service: 01/12/151855 Status: Addendum Sheet Metal Welder: Tico Suarez MD (Physician) Related Notes: Original Note by Danita Burr MD-R2 (Resident-Y2) filed at 2019 [facility] Service: Hospitalist Progress Note Hospital Day: LOS: [...] upper GI endoscopy by Dr. Benitez at [facility] in [place]. She denies alcohol use. Pain level is [...] or chills. Last colo noscopy was at [facility] and was told it was normal. Denies aspirin or an ticoagulant use. Does take ibuprofen on and off. Denies any left precordial chest pain, arm pain, or jaw pain. No previous history of AR. Denies dizziness, lightheadedness, syncope. apparently she was transiently confused per her significant other. She takes Prilos ec b.i.d. for GERD but has not noted any improvement in her symptoms. Workup in the emergency room showed leukocytosis of 16,000 with neutrophils 77%, no bands. Her H and H has remained stable since her last labs in the [facility] that is hemoglobin 12, hemat ocrit [...] Author: OG Granger Service: (none) Author Type: Armor Reconnaissance Vehicle Driver Filed: 01/12/15 1435 Date of Service: 01/12/151432 Status: Signed Sheet Metal Welder: OG Granger (Armor Reconnaissance Vehicle Driver) 01/12/15 1425 Discharge Planning Evaluation Admitting Diagnosis Gi Bleed Readmission No Living Arrangements Spouse/significant other Support Systems Spouse/significant other;Family members Type of Residence Private residence Independent with ADL's Yes Independent with Mobility No-comment (Ambulates with a walker) Home Care Services No Caregiver after Discharge No Mental Status Oriented Power of Worksite Wellness Practitioner No Anticipated Discharge Plan Post Acute Care Needs None at this time Plan communicated to patient/family Yes Resources Financial concerns No Transportation issues No (Friends or [place] Care van) Patient/Family concerns No Prescription Plan [...] None Assistance in transportation: Family, friends or [place] care van Identification of any specific education / training: None Barriers to Discharge / Alternative housing needed: None Anticipated DCP: Home with Significant Other ZAIRA THOMPSON onver david Transaction, Provider Unknown - 01/12/2015 5:21 AM PDT Nurse Progress Note by eDmi Westfall RN at 01/12/15520 Author: Demi Westfall RN Service: (none) Author Type: Registered Nurse Filed: 01/12/15 0523 Date of Service: 01/12/15520 Status: Signed Sheet Metal Welder: Demi Westfall RN (Registered Nurse) Patient resting [...] 01/12/15247 Date of Service: 01/12/15246 Status: Signed Sheet Metal Welder: Demi Westfall RN (Registered Nurse) Patient very [...] 0039 Date of Service: 01/12/1537 Status: Signed Sheet Metal Welder: Majo Dsouza RN (Registered Nurse) Pt asked [...] 0017 Date of Service: 01/11/152341 Status: Attested Sheet Metal Welder: DONA QuesadaR2 (Resident-Y2) Cosigner: Contreras Burroughs MD at 1614 Attestation signed by Contreras Burroughs MD at 01/12/151614 I have seen and examined the patient and agree with the resident note. I have directed the care plan [facility] Service: Hospitalist Progress Note Hospital Day: LOS: [...] upper GI endoscopy by Dr. Benitez at [facility] in [place]. She denies alcohol use. Pain level is [...] or chills. Last colo noscopy was at [facility] and was told it was normal. Denies aspirin or an ticoagulant use. Does take ibuprofen on and off. Denies any left precordial chest pain, arm pain, or jaw pain. No previous history of AR. Denies dizziness, lightheadedness, syncope. La st night apparently she was transiently confused per her significant other. She takes Prilos ec b.i.d. for GERD but has not noted any improvement in her symptoms. Workup in the emergency room showed leukocytosis of 16,000 with neutrophils 77%, no bands. Her H and H has remained stable since her last labs in the [facility] that is hemoglobin 12, hemat ocrit [...] NSAID induced gastritis ARF (acute renal failure) ([facility]) Abnormal LFTs Leukocytosis, unspecified Metabolic acidosis [facility] [...] Note by Shamir Do RN at 01/11/15 8511 Author: Shamir Do RN Service: (none) Author Type: Registered Nurse Filed: 01/11/15 1403 Date of Service: 01/11/15 1401 Status: Signed Sheet Metal Welder: Shamir Do RN (Registered Nurse) Report called to Marvin Rn in Out Patient Procedures regarding EGD with Dr. Mas. All ques tions addressed. onver david Transaction, Provider Unknown - 01/10/2015 11:08 PM PDT Nurse Progress Note by Batsheva Nagy RN at 01/10/152307 Author: Batsheva Nagy RN Service: (none) Author Type: Registered Nurse Filed: 01/10/152311 Date of Service: 01/10/152307 Status: Signed Sheet Metal Welder: Batsheva Nagy RN (Registered Nurse) Patient having [...] 1425 Date of Service: 01/10/151424 Status: Signed Sheet Metal Welder: Shamir Do RN (Registered Nurse) All po medications held per Dr. Mas. Marine Meteorologist. Electronically signed by [facility] at 01/25/2019 3:03 PM PDTShahla Fong RPH - 01/10/2015 1:39 PM PDTFormatting of this note might be different from t josiah original. Progress Notes by Shahla Kam RPH at 01/10/151338 Author: Shahla Kam RPH Service: (none) Author Type: Pharmacist Filed: 01/10/151338 Date of Service: 01/10/151338 Status: Signed Sheet Metal Welder: Shahla Kam RPH (Pharmacist) Clinical Pharmacy Note - Renal Dose Adjustment Nohemi Espitia 54 y.o. female Ht Readings from Last 1 Encounters: 01/10/15 1.702 m (5' 7") Wt Readings from Last 1 Encounters: 01/10/15 108.6 kg (239 lb 6.7 oz) CREATININE Date Value Ref Range Status 01/10/2015 2.6* 0.50 - 1.00 mg/dL Final Comment: Testing performed at [facility];[address] [place] [address];[place] [address] CREATININE: 2.6 mg/dL ABNORMAL (01/10/15902) Estimated creatinine [...] | | | | | [place] [address] | | | | | | [phone] | | | | | | | [...] EXTERNAL | | | | performed at [facility];888 | g/dL | LAB | | | | [address];[place] | | | | | | [address] | | | | + + + + + + | Hematocrit, | 30.2 (L)Comment: Testing | 34.0 - 46.0 % | EXTERNAL | | | POC | performed at [facility];[address] | | LAB | | | | [address];[place] | | | | | | [address] | | | | + + + [...] | performed at [facility] [address], [address] | K/uL | LAB | | | | [address], | | | | | | [place] [address] | | | | + + + + + + | Red Blood | 3.21 (L)Comment: Testing | 3.70 - 5.10 | EXTERNAL | | | Cells | performed at [facility] [address], [address] | M/uL | LAB | | | Counted | [address], | | | | | | [place] [address] | | | | + + + + + + | Hemoglobin | 9.5 (L)Comment: Testing | 11.3 - 15.5 | EXTERNAL | | | | performed at [facility], [address] | g/dL | LAB | | | | [address], | | | | | | [place] [address] | | | | + + + + + + | Hematocrit, | 29.9 (L)Comment: Testing | 34.0 - 46.0 % | EXTERNAL | | | POC | performed at [facility], [address] | | LAB | | | | [address], | | | | | | [place] [address] | | | | + + + + + + | MCV | 93.2Comment: Testing | 80.0 - 100.0 fl | EXTERNAL | | | | performed at [facility], [address] | | LAB | | | | [address], | | | | | | [place] [address] | | | | + + + + + + | MCH | 29.5Comment: Testing | 27.0 - 34.0 pg | EXTERNAL | | | | performed at [facility], [address] | | LAB | | | | [address], | | | | | | [place] [address] | | | | + + + + + + | MCHC | 31.7 (L)Comment: Testing | 32.0 - 35.5 | EXTERNAL | | | | performed at [facility], [address] | g/dL | LAB | | | | [address], | | | | | | [place] [address] | | | | + + + + + + | RDW-CV | 47.7Comment: Testing | 37 - 53 fl | EXTERNAL | | | | performed at [facility], [address] | | LAB | | | | [address], | | | | | | [place] [address] | | | | + + + + + + | Platelet | 172Comment: Testing | 150 - 400 K/uL | EXTERNAL | | | Count | performed at [facility], [address] | | LAB | | | Plasma | [address], | | | | | | [place] [address] | | | | + + + + + + | MPV | 8.6Comment: Testing | fl | EXTERNAL | | | | performed at [facility], [address] | | LAB | | | | [address], | | | | | | [place] [address] | | | | + + + + + + | Differentia | AUTOMATEDComment: | | EXTERNAL | | | l Type | Testing performed at | | LAB | | | | [facility], [address] | | | | | | [place] | | | | | | [address] | | | | + + + + + + | % Segmented | 45.95Comment: Testing | % | EXTERNAL | | | | performed at [facility], [address] | | LAB | | | Neutrophils | [address], | | | | | | [place] [address] | | | | + + + + + + | % | 37.77Comment: Testing | % | EXTERNAL | | | Lymphocytes | performed at [facility], [address] | | LAB | | | | [address], | | | | | | [place] [address] | | | | + + + + + + | % Monocytes | 8.27Comment: Testing | % | EXTERNAL | | | | performed at [facility], [address] | | LAB | | | | [address], | | | | | | [place], [place] [address] | | | | + + + + + + | % | 7.21Comment: Testing | % | EXTERNAL | | | Eosinophils | performed at [facility], [address] | | LAB | | | | [address], | | | | | | [place] [address] | | | | + + + + + + | % Basophils | 0.80Comment: Testing | % | EXTERNAL | | | | performed at [facility], [address] | | LAB | | | | [address], | | | | | | [place] [address] | | | | + + + + + + | Absolute | 2.11Comment: Testing | 1.90 - 7.40 | EXTERNAL | | | Segmented | performed at [facility], [address] | K/uL | LAB | | | Neutrophils | [address], | | | | | | [place] [address] | | | | + + + + + + | Absolute | 1.73Comment: Testing | 1.00 - 3.90 | EXTERNAL | | | Lymphocytes | performed at [facility], [address] | K/uL | LAB | | | | [address], | | | | | | [place] [address] | | | | + + + + + + | Absolute | 0.38Comment: Testing | 0.00 - 0.80 | EXTERNAL | | | Monocytes | performed at [facility], [address] | K/uL | LAB | | | | [address], | | | | | | [place] [address] | | | | + + + + + + | Absolute | 0.33Comment: Testing | 0.00 - 0.50 | EXTERNAL | | | Eosinophils | performed at [facility], [address] | K/uL | LAB | | | | [address], | | | | | | [place] [address] | | | | + + + + + + | Absolute | 0.04Comment: Testing | 0.00 - 0.10 | EXTERNAL | | | Basophils | performed at [facility], [address] | K/uL | LAB | | | | [address], | | | | | | [place] [address] | | | | + + + [...] | performed at [facility], [address] | | LAB | | | | [facility], | | | | | | [place] [address] | | | | + + + [...] | performed at [facility], [address] | | LAB | | | | [address], | | | | | | [place] [address] | | | | + + + [...] | | | | | [place] [address] | | | | + + + + + + | K | 3.9Comment: Testing | 3.5 - 4.9 | EXTERNAL | | | | performed at [facility], [address] | mmol/L | LAB | | | | [address], | | | | | | [place] [address] | | | | + + + + + + | Cl | 116 (H)Comment: Testing | 99 - 109 mmol/L | EXTERNAL | | | | performed at [facility], [address] | | LAB | | | | [address], | | | | | | [place] [address] | | | | + + + + + + | CO2 | 24Comment: Testing | 23 - 32 mmol/L | EXTERNAL | | | | performed at [facility], [address] | | LAB | | | | [address], | | | | | | [place] [address] | | | | + + + + + + | Anion Gap | 2 (L)Comment: Testing | 5 - 20 mmol/L | EXTERNAL | | | | performed at [facility], [address] | | LAB | | | | [address], | | | | | | [place] [address] | | | | + + + + + + | Glucose, | 98Comment: Testing | 65 - 99 mg/dL | EXTERNAL | | | Fasting | performed at [facility], [address] | | LAB | | | | [address], | | | | | | [place] [address] | | | | + + + + + + | BUN | 7 (L)Comment: Testing | 8 - 25 mg/dL | EXTERNAL | | | | performed at [facility], [address] | | LAB | | | | [address], | | | | | | [place] [address] | | | | + + + + + + | Creatinine | 0.58Comment: Testing | 0.50 - 1.00 | EXTERNAL | | | | performed at [facility], [address] | mg/dL | LAB | | | | [address], | | | | | | [place] [address] | | | | + + + + + + | BUN/Creatin | 12Comment: Testing | | EXTERNAL | | | ine Ratio | performed at [facility], [address] | | LAB | | | | [address], | | | | | | [place] [address] | | | | + + + + + + | Calcium | 8.2 (L)Comment: Testing | 8.5 - 10.5 | EXTERNAL | | | | performed at [facility], [address] | mg/dL | LAB | | | | [address], | | | | | | [place] [address] | | | | + + + + + + | Protein, | 5.8 (L)Comment: Testing | 6.3 - 8.2 g/dL | EXTERNAL | | | Total | performed at [facility], [address] | | LAB | | | | [address], | | | | | | [place] [address] | | | | + + + + + + | Albumin | 2.6 (L)Comment: Testing | 3.6 - 5.0 g/dL | EXTERNAL | | | | performed at [facility], [address] | | LAB | | | | [address], | | | | | | [place] [address] | | | | + + + + + + | Globulin | 3.2Comment: Testing | 1.3 - 4.9 g/dL | EXTERNAL | | | | performed at [facility], [address] | | LAB | | | | [address], | | | | | | [place] [address] | | | | + + + + + + | A/G Ratio | 0.8 (L)Comment: Testing | 1.0 - 2.4 | EXTERNAL | | | | performed at [facility], [address] | | LAB | | | | [address], | | | | | | [place] [address] | | | | + + + + + + | Bilirubin | 0.2Comment: Testing | 0.1 - 1.5 mg/dL | EXTERNAL | | | Total | performed at [facility], [address] | | LAB | | | | [address], | | | | | | [place] [address] | | | | + + + + + + | ALP, | 77Comment: Testing | 35 - 115 U/L | EXTERNAL | | | External | performed at [facility], [address] | | LAB | | | [address], | | | | | | [place] [address] | | | | + + + + + + | AST | 96 (H)Comment: Testing | 10 - 45 U/L | EXTERNAL | | | | performed at [facility], [address] | | LAB | | | | [address], | | | | | | [place] [address] | | | | + + + + + + | ALT | 115 (H)Comment: Testing | 10 - 65 U/L | EXTERNAL | | | | performed at [facility], [address] | | LAB | | | | [address], | | | | | | [place] [address] | | | | + + + [...] | | | | | | at [facility], [address] | | | | | | [address], | | | | | | [place] [address] | | | | + + + [...] EXTERNAL | | | | performed at [facility];[address] | g/dL | LAB | | | | [address];[place] | | | | | | [address] | | | | + + + + + + | Hematocrit, | 29.8 (L)Comment: Testing | 34.0 - 46.0 % | EXTERNAL | | | POC | performed at [facility];[address] | | LAB | | | | [address];[place] | | | | | | [address] | | | | + + + [...] EXTERNAL | | | | performed at [facility];[address] | g/dL | LAB | | | | [address];[place] | | | | | | [address] | | | | + + + + + + | Hematocrit, | 29.0 (L)Comment: Testing | 34.0 - 46.0 % | EXTERNAL | | | POC | performed at [facility];[address] | | LAB | | | | [address];[place] | | | | | | [address] | | | | + + + [...] EXTERNAL | | | | performed at [facility];[address] | g/dL | LAB | | | | [address];[place] | | | | | | [address] | | | | + + + + + + | Hematocrit, | 30.1 (L)Comment: Testing | 34.0 - 46.0 % | EXTERNAL | | | POC | performed at [facility];[address] | | LAB | | | | [address];[place] | | | | | | [address] | | | | + + + [...] | performed at [facility], [address] | K/uL | LAB | | | | [address], | | | | | | [place] [address] | | | | + + + + + + | Red Blood | 3.28 (L)Comment: Testing | 3.70 - 5.10 | EXTERNAL | | | Cells | performed at [facility], [address] | M/uL | LAB | | | Counted | [address], | | | | | | [place] [address] | | | | + + + + + + | Hemoglobin | 9.9 (L)Comment: Testing | 11.3 - 15.5 | EXTERNAL | | | | performed at [facility], [address] | g/dL | LAB | | | | [address], | | | | | | [place] [address] | | | | + + + + + + | Hematocrit, | 30.6 (L)Comment: Testing | 34.0 - 46.0 % | EXTERNAL | | | POC | performed at [facility], [address] | | LAB | | | | [address], | | | | | | [place] [address] | | | | + + + + + + | MCV | 93.3Comment: Testing | 80.0 - 100.0 fl | EXTERNAL | | | | performed at [facility], [address] | | LAB | | | | [address], | | | | | | [place] [address] | | | | + + + + + + | MCH | 30.0Comment: Testing | 27.0 - 34.0 pg | EXTERNAL | | | | performed at [facility], [address] | | LAB | | | | [address], | | | | | | [place] [address] | | | | + + + + + + | MCHC | 32.2Comment: Testing | 32.0 - 35.5 | EXTERNAL | | | | performed at [facility], [address] | g/dL | LAB | | | | [address], | | | | | | [place] [address] | | | | + + + + + + | RDW-CV | 47.7Comment: Testing | 37 - 53 fl | EXTERNAL | | | | performed at [facility], [address] | | LAB | | | | [address], | | | | | | [place] [address] | | | | + + + + + + | Platelet | 158Comment: Testing | 150 - 400 K/uL | EXTERNAL | | | Count | performed at [facility], [address] | | LAB | | | Plasma | [address], | | | | | | [place] [address] | | | | + + + + + + | MPV | 8.9Comment: Testing | fl | EXTERNAL | | | | performed at [facility], [address] | | LAB | | | | [address], | | | | | | [place] [address] | | | | + + + + + + | Differentia | AUTOMATEDComment: | | EXTERNAL | | | l Type | Testing performed at | | LAB | | | | [facility], [address] | | | | | | [place] | | | | | | [address] | | | | + + + + + + | % Segmented | 56.56Comment: Testing | % | EXTERNAL | | | | performed at [facility], [address] | | LAB | | | Neutrophils | [address], | | | | | | [place], [place] [address] | | | | + + + + + + | % | 29.02Comment: Testing | % | EXTERNAL | | | Lymphocytes | performed at [facility], [address] | | LAB | | | | [address], | | | | | | [place] [address] | | | | + + + + + + | % Monocytes | 8.64Comment: Testing | % | EXTERNAL | | | | performed at [facility], [address] | | LAB | | | | [address], | | | | | | [place] [address] | | | | + + + + + + | % | 5.18Comment: Testing | % | EXTERNAL | | | Eosinophils | performed at [facility], [address] | | LAB | | | | [address], | | | | | | [place] [address] | | | | + + + + + + | % Basophils | 0.60Comment: Testing | % | EXTERNAL | | | | performed at [facility], [address] | | LAB | | | | [address], | | | | | | [place] [address] | | | | + + + + + + | Absolute | 3.12Comment: Testing | 1.90 - 7.40 | EXTERNAL | | | Segmented | performed at [facility], [address] | K/uL | LAB | | | Neutrophils | [address], | | | | | | [place] [address] | | | | + + + + + + | Absolute | 1.60Comment: Testing | 1.00 - 3.90 | EXTERNAL | | | Lymphocytes | performed at [facility], [address] | K/uL | LAB | | | | [address], | | | | | | [place] [address] | | | | + + + + + + | Absolute | 0.48Comment: Testing | 0.00 - 0.80 | EXTERNAL | | | Monocytes | performed at [facility], [address] | K/uL | LAB | | | | [address], | | | | | | [place] [address] | | | | + + + + + + | Absolute | 0.29Comment: Testing | 0.00 - 0.50 | EXTERNAL | | | Eosinophils | performed at [facility], [address] | K/uL | LAB | | | | [address], | | | | | | [place] [address] | | | | + + + + + + | Absolute | 0.03Comment: Testing | 0.00 - 0.10 | EXTERNAL | | | Basophils | performed at [facility], [address] | K/uL | LAB | | | | [address], | | | | | | [place] [address] | | | | + + + [...] | performed at [facility], [address] | | LAB | | | | [address], | | | | | | [place] [address] | | | | + + + [...] | performed at [facility], [address] | | LAB | | | | [address], | | | | | | [place] [address] | | | | + + + [...] | | | | | [place] [address] | | | | + + + + + + | K | 4.0Comment: Testing | 3.5 - 4.9 | EXTERNAL | | | | performed at [facility], [address] | mmol/L | LAB | | | | [address], | | | | | | [place] [address] | | | | + + + + + + | Cl | 117 (H)Comment: Testing | 99 - 109 mmol/L | EXTERNAL | | | | performed at [facility], [address] | | LAB | | | | [address], | | | | | | [place] [address] | | | | + + + + + + | CO2 | 18 (L)Comment: Testing | 23 - 32 mmol/L | EXTERNAL | | | | performed at [facility], [address] | | LAB | | | | [address], | | | | | | [place] [address] | | | | + + + + + + | Anion Gap | 7Comment: Testing | 5 - 20 mmol/L | EXTERNAL | | | | performed at [facility], [address] | | LAB | | | | [address], | | | | | | [place] [address] | | | | + + + + + + | Glucose, | 137 (H)Comment: Testing | 65 - 99 mg/dL | EXTERNAL | | | Fasting | performed at [facility], [address] | | LAB | | | | [address], | | | | | | [place] [address] | | | | + + + + + + | BUN | 8Comment: Testing | 8 - 25 mg/dL | EXTERNAL | | | | performed at [facility], [address] | | LAB | | | | [address], | | | | | | [place] [id number] | | | | + + + + + + | Creatinine | 0.57Comment: Testing | 0.50 - 1.00 | EXTERNAL | | | | performed at [facility], [address] | mg/dL | LAB | | | | [address], | | | | | | [place] [id number] | | | | + + + + + + | BUN/Creatin | 14Comment: Testing | | EXTERNAL | | | ine Ratio | performed at [facility], [address] | | LAB | | | | [address], | | | | | | [place] [id number] | | | | + + + + + + | Calcium | 8.2 (L)Comment: Testing | 8.5 - 10.5 | EXTERNAL | | | | performed at [facility], [address] | mg/dL | LAB | | | | [address], | | | | | | [place] [id number] | | | | + + + + + + | Protein, | 5.9 (L)Comment: Testing | 6.3 - 8.2 g/dL | EXTERNAL | | | Total | performed at [facility], [address] | | LAB | | | | [address], | | | | | | [place] [id number] | | | | + + + + + + | Albumin | 2.5 (L)Comment: Testing | 3.6 - 5.0 g/dL | EXTERNAL | | | | performed at [facility], [address] | | LAB | | | | [address], | | | | | | [place] [id number] | | | | + + + + + + | Globulin | 3.4Comment: Testing | 1.3 - 4.9 g/dL | EXTERNAL | | | | performed at [facility], [address] | | LAB | | | | [address], | | | | | | [place] [address] | | | | + + + + + + | A/G Ratio | 0.7 (L)Comment: Testing | 1.0 - 2.4 | EXTERNAL | | | | performed at [facility], [address] | | LAB | | | | [address], | | | | | | [place] [address] | | | | + + + + + + | Bilirubin | 0.3Comment: Testing | 0.1 - 1.5 mg/dL | EXTERNAL | | | Total | performed at [facility], [address] | | LAB | | | | [address], | | | | | | [place] [address] | | | | + + + + + + | ALP, | 74Comment: Testing | 35 - 115 U/L | EXTERNAL | | | External | performed at [facility], [address] | | LAB | | | | [address], | | | | | | [place] [address] | | | | + + + + + + | AST | 160 (H)Comment: Testing | 10 - 45 U/L | EXTERNAL | | | | performed at [facility], [address] | | LAB | | | | [address], | | | | | | [place] [address] | | | | + + + + + + | ALT | 135 (H)Comment: Testing | 10 - 65 U/L | EXTERNAL | | | | performed at [facility], [address] | | LAB | | | | [address], | | | | | | [place] [address] | | | | + + + [...] | | | | | | at [facility], [address] | | | | | | [facility], | | | | | | [place] [address] | | | | + + + [...] EXTERNAL | | | | performed at [facility];888 | g/dL | LAB | | | | [address];[place] | | | | | | [address] | | | | + + + + + + | Hematocrit, | 31.4 (L)Comment: Testing | 34.0 - 46.0 % | EXTERNAL | | | POC | performed at [facility];[address] | | LAB | | | | [address];[place] | | | | | | [address] | | | | + + + [...] | | technical preparation was performed by [facility] | | | [address] [address] | | | (Charge Coordinator: Maximiliano Smith M.D.; [facility]#: [id number]). | | | Diagnostician: Adela Mixon MD [...] EXTERNAL | | | | performed at [facility];888 | g/dL | LAB | | | | [address];[place] | | | | | | [address] | | | | + + + + + + | Hematocrit, | 30.5 (L)Comment: Testing | 34.0 - 46.0 % | EXTERNAL | | | POC | performed at [facility];[address] | | LAB | | | | [address];[place] | | | | | | [address] | | | | + + + [...] | | | | | | at [facility];[address];[place] [address] | | | | + + + + + + | Methampheta | POSITIVE (A)Comment: | | EXTERNAL | | | mine | The cutoff for a | | LAB | | | Screen, UA, | positive mAMP is 1000 | | | | | POC | ng/mL.Testing performed | | | | | | at [facility];[address] | | | | | | [address];[place] [address] | | | | + + + [...] | | | Screen, | performed at [facility];[address] | | | | | UA, POC | [address];[place] | | | | | | [address] | | | | + + + + + + | Barbiturate | NEGATIVEComment: | | EXTERNAL | | | s Screen, | Positive cutoff for | | LAB | | | Urine | SHAUNA = 200 ng/mLTesting | | | | | | performed at [facility];8 | | | | | | [address];[place] | | | | | | [address] | | | | + + + + + + | Benzodiazep | NEGATIVEComment: | | EXTERNAL | | | aura | Positive cutoff for | | LAB | | | Screen, | BENZO = 200 ng/mLTesting | | | | | Urine | performed at [facility];8 | | | | | | [address];[place] | | | | | | [address] | | | | + + + + + + | Cocaine | NEGATIVEComment: | | EXTERNAL | | | | Positive cutoff for | | LAB | | | | MARYAM = 300 ng/mLTesting | | | | | | performed at [facility];[address] | | | | | | [address];[place] | | | | | | [address] | | | | + + + + + + | Methadone | NEGATIVEComment: | | EXTERNAL | | | | Positive cutoff for | | LAB | | | | MTD = 300 ng/mLTesting | | | | | | performed at [facility];[address] | | | | | | [address];[place] | | | | | | [address] | | | | + + + + + + | Opiates | POSITIVE (A)Comment: | | EXTERNAL | | | | Positive cutoff for | | LAB | | | | OPI = 300 ng/mLTesting | | | | | | performed at [facility];[address] | | | | | | [address];[place] | | | | | | [address] | | | | + + + + + + | PCP | NEGATIVEComment: | | EXTERNAL | | | | Positive cutoff for PCP | | LAB | | | | = 25 ng/mLTesting | | | | | | performed at [facility];[address] | | | | | | [address];[place] | | | | | | [address] | | | | + + + [...] | | | | | performed at [facility];[address] | | | | | | [facility];[place], [place] | | | | | | [address] | | | | + + + [...] EXTERNAL | | | | performed at [facility];888 | g/dL | LAB | | | | [address];[place] | | | | | | [address] | | | | + + + + + + | Hematocrit, | 31.2 (L)Comment: Testing | 34.0 - 46.0 % | EXTERNAL | | | POC | performed at [facility];[address] | | LAB | | | | [address];[place] | | | | | | [address] | | | | + + + [...] | | | | | | [place] [address] | | | | + + + + + + | TIBC | 282Comment: Testing | 260 - 490 ug/dL | EXTERNAL | | | | performed at [facility], [address] | | LAB | | | | [address], | | | | | | [place] [address] | | | | + + + + + + | Iron | 12 (L)Comment: Testing | 15 - 50 % | EXTERNAL | | | Saturation | performed at [facility], [address] | | LAB | | | [address], | | | | | | [place] [address] | | | | + + + [...] | | | Reticulocyt | performed at [facility], [address] | | LAB | | | e Count | [address], | | | | | | [place] [address] | | | | + + + [...] | performed at [facility], [address] | | LAB | | | | [address], | | | | | | [place] [address] | | | | + + + [...] | | | External | performed at [facility], [address] | | LAB | | | | [address], | | | | | | [place] [address] | | | | + + + [...] | | | B-12 | performed at [facility], [address] | pg/mL | LAB | | | | [address], | | | | | | [place] [address] | | | | + + + [...] | | | | | performed at [facility];[address] | | | | | | [address] [facility];[place], [place] | | | | | | [address] | | | | + + + [...] K/uL | LAB | | | | [facility], [address] | | | | | | [place] | | | | | | [address] | | | | + + + + + + | Red Blood | 3.57 (L)Comment: Testing | 3.70 - 5.10 | EXTERNAL | | | Cells | performed at [facility], [address] | M/uL | LAB | | | Counted | [address], | | | | | | [place] [address] | | | | + + + + + + | Hemoglobin | 10.6 (L)Comment: Testing | 11.3 - 15.5 | EXTERNAL | | | | performed at [facility], [address] | g/dL | LAB | | | | [address], | | | | | | [place] [address] | | | | + + + + + + | Hematocrit, | 33.0 (L)Comment: Testing | 34.0 - 46.0 % | EXTERNAL | | | POC | performed at [facility], [address] | | LAB | | | | [address], | | | | | | [place] [address] | | | | + + + + + + | MCV | 92.5Comment: Testing | 80.0 - 100.0 fl | EXTERNAL | | | | performed at [facility], [address] | | LAB | | | [address], | | | | | | [place] [address] | | | | + + + + + + | MCH | 29.8Comment: Testing | 27.0 - 34.0 pg | EXTERNAL | | | | performed at [facility], [address] | | LAB | | | | [address], | | | | | | [place] [address] | | | | + + + + + + | MCHC | 32.2Comment: Testing | 32.0 - 35.5 | EXTERNAL | | | | performed at [facility], [address] | g/dL | LAB | | | | [address], | | | | | | [place] [address] | | | | + + + + + + | RDW-CV | 46.4Comment: Testing | 37 - 53 fl | EXTERNAL | | | | performed at [facility], [address] | | LAB | | | | [address], | | | | | | [place] [address] | | | | + + + + + + | Platelet | 184Comment: Testing | 150 - 400 K/uL | EXTERNAL | | | Count | performed at [facility], [address] | | LAB | | | Plasma | [address], | | | | | | [place] [address] | | | | + + + + + + | MPV | 8.9Comment: Testing | fl | EXTERNAL | | | | performed at [facility], [address] | | LAB | | | | [address], | | | | | | [place] [address] | | | | + + + + + + | Differentia | AUTOMATEDComment: | | EXTERNAL | | | l Type | Testing performed at | | LAB | | | | [facility], [address] | | | | | | [place] | | | | | | [address] | | | | + + + + + + | % Segmented | 68.68Comment: Testing | % | EXTERNAL | | | | performed at [facility], [address] | | LAB | | | Neutrophils | [address], | | | | | | [place] [address] | | | | + + + + + + | % | 18.26Comment: Testing | % | EXTERNAL | | | Lymphocytes | performed at [facility], [address] | | LAB | | | | [address], | | | | | | [place] [address] | | | | + + + + + + | % Monocytes | 8.60Comment: Testing | % | EXTERNAL | | | | performed at [facility], [address] | | LAB | | | | [address], | | | | | | [place] [address] | | | | + + + + + + | % | 4.07Comment: Testing | % | EXTERNAL | | | Eosinophils | performed at [facility], [address] | | LAB | | | | [address], | | | | | | [place] [address] | | | | + + + + + + | % Basophils | 0.39Comment: Testing | % | EXTERNAL | | | | performed at [facility], [address] | | LAB | | | | [address], | | | | | | [place] [address] | | | | + + + + + + | Absolute | 7.84 (H)Comment: Testing | 1.90 - 7.40 | EXTERNAL | | | Segmented | performed at [facility], [address] | K/uL | LAB | | | Neutrophils | [address], | | | | | | [place] [address] | | | | + + + + + + | Absolute | 2.08Comment: Testing | 1.00 - 3.90 | EXTERNAL | | | Lymphocytes | performed at [facility], [address] | K/uL | LAB | | | | [address], | | | | | | [place] [address] | | | | + + + + + + | Absolute | 0.98 (H)Comment: Testing | 0.00 - 0.80 | EXTERNAL | | | Monocytes | performed at [facility], [address] | K/uL | LAB | | | | [address], | | | | | | [place] [address] | | | | + + + + + + | Absolute | 0.47Comment: Testing | 0.00 - 0.50 | EXTERNAL | | | Eosinophils | performed at [facility], [address] | K/uL | LAB | | | | [address], | | | | | | [place] [address] | | | | + + + + + + | Absolute | 0.05Comment: Testing | 0.00 - 0.10 | EXTERNAL | | | Basophils | performed at [facility], [address] | K/uL | LAB | | | | [address], | | | | | | [place] [address] | | | | + + + [...] EXTERNAL | | | | performed at [facility];8 | | LAB | | | | [address];[place], [place] | | | | | | [address] | | | | + + + [...] EXTERNAL | | | | performed at [facility];[address] | | LAB | | | | [address];[place], [place] | | | | | | [address] | | | | + + + [...] + + | Hemoglobin | 5.5Comment: The [place] | 4.0 - 6.0 % | EXTERNAL [...] | performed at [facility], [address] | | | | | | [address], | | | | | | [place] [address] | | | | + + + [...] | performed at [facility], [address] | | | | | | [facility], | | | | | | [place] [address] | | | | + + + [...] EXTERNAL | | | | performed at [facility];[address] | mmol/L | LAB | | | | [address];[place] | | | | | | [address] | | | | + + + + + + | K | 3.7Comment: Testing | 3.5 - 4.9 | EXTERNAL | | | | performed at [facility];888 | mmol/L | LAB | | | | [address];[place] | | | | | | [address] | | | | + + + + + + | Cl | 112 (H)Comment: Testing | 99 - 109 mmol/L | EXTERNAL | | | | performed at [facility];[address] | | LAB | | | | [address];[place] | | | | | | [address] | | | | + + + + + + | CO2 | 22 (L)Comment: Testing | 23 - 32 mmol/L | EXTERNAL | | | | performed at [facility];[address] | | LAB | | | | [address];[place] | | | | | | [address] | | | | + + + + + + | Anion Gap | 11Comment: Testing | 5 - 20 mmol/L | EXTERNAL | | | | performed at [facility];[address] | | LAB | | | | [address];[place] | | | | | | [address] | | | | + + + + + + | Glucose, | 92Comment: Testing | 65 - 99 mg/dL | EXTERNAL | | | Fasting | performed at [facility];[address] | | LAB | | | | [address];[place] | | | | | | [address] | | | | + + + + + + | BUN | 18Comment: Testing | 8 - 25 mg/dL | EXTERNAL | | | | performed at [facility];[address] | | LAB | | | | [address];[place] | | | | | | [address] | | | | + + + + + + | Creatinine | 0.97Comment: Testing | 0.50 - 1.00 | EXTERNAL | | | | performed at [facility];888 | mg/dL | LAB | | | | [address];[place] | | | | | | [address] | | | | + + + + + + | BUN/Creatin | 19Comment: Testing | | EXTERNAL | | | ine Ratio | performed at [facility];[address] | | LAB | | | | [address];[place] | | | | | | [address] | | | | + + + + + + | Calcium | 7.7 (L)Comment: Testing | 8.5 - 10.5 | EXTERNAL | | | | performed at [facility];888 | mg/dL | LAB | | | | [address];[place] | | | | | | [address] | | | | + + + + + + | Protein, | 7.2Comment: Testing | 6.3 - 8.2 g/dL | EXTERNAL | | | Total | performed at [facility];[address] | | LAB | | | | [address];[place] | | | | | | [address] | | | | + + + + + + | Albumin | 2.7 (L)Comment: Testing | 3.6 - 5.0 g/dL | EXTERNAL | | | | performed at [facility];[address] | | LAB | | | | [address];[place] | | | | | | [address] | | | | + + + + + + | Globulin | 4.5Comment: Testing | 1.3 - 4.9 g/dL | EXTERNAL | | | | performed at [facility];[address] | | LAB | | | | [address];[place] | | | | | | [address] | | | | + + + + + + | A/G Ratio | 0.6 (L)Comment: Testing | 1.0 - 2.4 | EXTERNAL | | | | performed at [facility];[address] | | LAB | | | | [address];[place] | | | | | | [address] | | | | + + + + + + | Bilirubin | 1.0Comment: Testing | 0.1 - 1.5 mg/dL | EXTERNAL | | | Total | performed at [facility];[address] | | LAB | | | | [address];[place] | | | | | | [address] | | | | + + + + + + | ALP, | 100Comment: Testing | 35 - 115 U/L | EXTERNAL | | | External | performed at [facility];[address] | | LAB | | | | [address];[place] | | | | | | [address] | | | | + + + + + + | AST | 311 (H)Comment: Testing | 10 - 45 U/L | EXTERNAL | | | | performed at [facility];[address] | | LAB | | | | [address];[place] | | | | | | [address] | | | | + + + + + + | ALT | 236 (H)Comment: Testing | 10 - 65 U/L | EXTERNAL | | | | performed at [facility];[address] | | LAB | | | | [address];[place] | | | | | | [address] | | | | + + + [...] | | | | | | at [facility];[address];[place] [address] | | | | + + + [...] EXTERNAL | | | | performed at [facility];888 | g/dL | LAB | | | | [address];[place] | | | | | | [address] | | | | + + + + + + | Hematocrit, | 32.4 (L)Comment: Testing | 34.0 - 46.0 % | EXTERNAL | | | POC | performed at [facility];[address] | | LAB | | | | [address];[place] | | | | | | [address] | | | | + + + [...] | EXTERNAL LAB | | performed at [facility];[address] [place] [address];[place] [address] 027 NAP1 BI | | | 027 NAP1 BI PRESUMPTIVE NEGATIVE | | | Detection of 027 NAP1 BI strains of C. difficile is presumptive and | | | for epidemiological purposes and not intended to guide or monitor | | | treatment for C. difficile infections. Testing performed at [facility];[address] | | | [facility];[place] [address] | | + + + + +---------+ [...] Performed At | + + + | NOHMEI ESPITIA BLADDER 01/10/2015 7:57 PM HISTORY: 54 [...] EXTERNAL | | | | performed at [facility];888 | g/dL | LAB | | | | [facility];[place], [place] | | | | | | [address] | | | | + + + + + + | Hematocrit, | 34.4Comment: Testing | 34.0 - 46.0 % | EXTERNAL | | | POC | performed at [facility];[address] | | LAB | | | | [address];[place], [place] | | | | | | [address] | | | | + + + [...] LAB | | | | performed at [facility], [address] | | | | | | [address], | | | | | | [place] [address] | | | | + + + [...] | | | | | [place] [address] | | | | + + + + + + | Clarity | CLEARComment: Testing | | EXTERNAL | | | | performed at [facility], [address] | | LAB | | | | [address], | | | | | | [place] [address] | | | | + + + + + + | Specific | 1.017Comment: Testing | 1.002 - 1.030 | EXTERNAL | | | [place], | performed at [facility], [address] | | LAB | | | Urine | [address], | | | | | | [place] [address] | | | | + + + + + + | Leukocyte | NEGATIVEComment: Testing | | EXTERNAL | | | Esterase, | performed at [facility], [address] | | LAB | | | Urine | [address], | | | | | | [place] [address] | | | | + + + + + + | Nitrite, | NEGATIVEComment: Testing | | EXTERNAL | | | Urine | performed at [facility], [address] | | LAB | | | | [address], | | | | | | [place] [address] | | | | + + + + + + | Urobilinoge | 0.2Comment: Testing | mg/dL | EXTERNAL | | | n, Urine | performed at [facility], [address] | | LAB | | | | [address], | | | | | | [place] [address] | | | | + + + + + + | Protein, | NEGATIVEComment: Testing | mg/dL | EXTERNAL | | | Urine | performed at [facility], [address] | | LAB | | | | [address], | | | | | | [place] [address] | | | | + + + + + + | pH, Urine | 6.0Comment: Testing | 5.0 - 8.0 | EXTERNAL | | | | performed at [facility], [address] | | LAB | | | | [address], | | | | | | [place] [address] | | | | + + + + + + | Blood, | MODERATE (A)Comment: | | EXTERNAL | | | Urine | Testing performed at | | LAB | | | | [facility], [address] [facility] | | | | | | [place] | | | | | | [address] | | | | + + + + + + | Ketones | NEGATIVEComment: Testing | mg/dL | EXTERNAL | | | | performed at [facility], [address] | | LAB | | | | [address], | | | | | | [place] [address] | | | | + + + + + + | Bilirubin, | MODERATE (A)Comment: | | EXTERNAL | | | Urine | Testing performed at | | LAB | | | | [facility], [address] | | | | | | [place] | | | | | | [address] | | | | + + + + + + | Glucose, | NEGATIVEComment: Testing | mg/dL | EXTERNAL | | | Urine | performed at [facility], [address] | | LAB | | | | [address], | | | | | | [place] [address] | | | | + + + [...] | | | | | [place], [place] [address] | | | | + + + + + + | RBC, UA | 1-5Comment: Testing | 0 - 5 /hpf | EXTERNAL | | | | performed at [facility], [address] | | LAB | | | | [address], | | | | | | [place] [address] | | | | + + + + + + | Epithelial | 16-25Comment: Testing | /lpf | EXTERNAL | | | Cells | performed at [facility], [address] | | LAB | | | | [address], | | | | | | [place] [address] | | | | + + + + + + | Bacteria, | 1+ (A)Comment: Testing | | EXTERNAL | | | UA | performed at [facility], [address] | | LAB | | | | [address], | | | | | | [place] [address] | | | | + + + + + + | HYALINE | 0-2Comment: Testing | | EXTERNAL | | | CASTS UA | performed at [facility], [address] | | LAB | | | | [address], | | | | | | [place] [address] | | | | + + + [...] | | LAB | | | [address] Blvd;[place] [address] | | | | + + + + + + | Antibody | NEGATIVE | | EXTERNAL | | | Screen | | | LAB | | + + + + + + | Antibody | Testing performed at | | EXTERNAL | | | Screen | [facility];[address] | | LAB | | | [address];[place] [address] | | | | + + + + + + | BB BAND | [id number] | | EXTERNAL | | | | | | LAB | | + + + + + + | BB BAND | Testing performed at | | EXTERNAL | | | | [facility];[address] | | LAB | | | [address];[place] [address] | | | | + + + [...] WORKUP | | | Testing performed at [facility], [address] [facility] | | [place] [address] | | + + + + +---------+ [...] | | | Urine | performed at [facility], [address] | | LAB | | | Random | [address], | | | | | | [place] [address] | | | | + + + [...] EXTERNAL | | | | performed at [facility];[address] | | LAB | | | | [address];[place] | | | | | | [address] | | | | + + + + + + | RBC, UA | 0-2Comment: Testing | 0 - 5 /hpf | EXTERNAL | | | | performed at [facility];[address] | | LAB | | | | [address];[place] | | | | | | [address] | | | | + + + + + + | Epithelial | 50-100Comment: Testing | /lpf | EXTERNAL | | | Cells | performed at [facility];[address] | | LAB | | | | [address];[place] | | | | | | [address] | | | | + + + + + + | Bacteria, | 3+ (A)Comment: Testing | | EXTERNAL | | | UA | performed at [facility];[address] | | LAB | | | | [address];[place] | | | | | | [address] | | | | + + + + + + | CASTS | 16-25Comment: FINE | /lpf | EXTERNAL | | | | GRANULARTesting | | LAB | | | | performed at [facility];[address] | | | | | | [address];[place] | | | | | | [address] | | | | + + + [...] | | | | | performed at [facility] | | | | | | [facility];[place], [place] | | | | | | [address] | | | | + + + [...] K/uL | LAB | | | | [facility];[address];[place] [address] | | | | + + + + + + | Red Blood | 4.21Comment: Testing | 3.70 - 5.10 | EXTERNAL | | | Cells | performed at [facility];[address] | M/uL | LAB | | | Counted | [address];[place] | | | | | | [address] | | | | + + + + + + | Hemoglobin | 12.4Comment: Testing | 11.3 - 15.5 | EXTERNAL | | | | performed at [facility];888 | g/dL | LAB | | | | [address];[place] | | | | | | [address] | | | | + + + + + + | Hematocrit, | 37.6Comment: Testing | 34.0 - 46.0 % | EXTERNAL | | | POC | performed at [facility];[address] | | LAB | | | | [address];[place] | | | | | | [address] | | | | + + + + + + | MCV | 89.4Comment: Testing | 80.0 - 100.0 fl | EXTERNAL | | | | performed at [facility];[address] | | LAB | | | | [address];[place] | | | | | | [address] | | | | + + + + + + | MCH | 29.4Comment: Testing | 27.0 - 34.0 pg | EXTERNAL | | | | performed at [facility];[address] | | LAB | | | | [address];[place] | | | | | | [address] | | | | + + + + + + | MCHC | 32.9Comment: Testing | 32.0 - 35.5 | EXTERNAL | | | | performed at [facility];888 | g/dL | LAB | | | | [address];[place] | | | | | | [address] | | | | + + + + + + | RDW-CV | 46.4Comment: Testing | 37 - 53 fl | EXTERNAL | | | | performed at [facility];[address] | | LAB | | | | [address];[place] | | | | | | [address] | | | | + + + + + + | Platelet | 251Comment: Testing | 150 - 400 K/uL | EXTERNAL | | | Count | performed at [facility];[address] | | LAB | | | Plasma | [address];[place] | | | | | | [address] | | | | + + + + + + | MPV | 8.3Comment: Testing | fl | EXTERNAL | | | | performed at [facility];[address] | | LAB | | | | [address];[place] | | | | | | [address] | | | | + + + + + + | Differentia | AUTOMATEDComment: | | EXTERNAL | | | l Type | Testing performed at | | LAB | | | | [facility];[address];[place] [address] | | | | + + + + + + | % Segmented | 77.07Comment: Testing | % | EXTERNAL | | | | [facility] [facility];888 | | LAB | | | Neutrophils | [address];[place] | | | | | | [address] | | | | + + + + + + | % | 11.95Comment: Testing | % | EXTERNAL | | | Lymphocytes | performed at [facility];[address] | | LAB | | | | [address];[place] | | | | | | [address] | | | | + + + + + + | % Monocytes | 8.49Comment: Testing | % | EXTERNAL | | | | performed at [facility];[address] | | LAB | | | | [address];[place] | | | | | | [address] | | | | + + + + + + | % | 1.48Comment: Testing | % | EXTERNAL | | | Eosinophils | performed at [facility];[address] | | LAB | | | | [address];[place] | | | | | | [address] | | | | + + + + + + | % Basophils | 1.01Comment: Testing | % | EXTERNAL | | | | performed at [facility];[address] | | LAB | | | | [address];[place] | | | | | | [address] | | | | + + + + + + | Absolute | 12.59 (H)Comment: | 1.90 - 7.40 | EXTERNAL | | | Segmented | Testing performed at | K/uL | LAB | | | Neutrophils | [facility];[address] | [address];[place] [address] | | | | + + + + + + | Absolute | 1.95Comment: Testing | 1.00 - 3.90 | EXTERNAL | | | Lymphocytes | performed at [facility];[address] | K/uL | LAB | | | | [address];[place] | | | | | | [address] | | | | + + + + + + | Absolute | 1.39 (H)Comment: Testing | 0.00 - 0.80 | EXTERNAL | | | Monocytes | performed at [facility];[address] | K/uL | LAB | | | | [address];[place] | | | | | | [address] | | | | + + + + + + | Absolute | 0.24Comment: Testing | 0.00 - 0.50 | EXTERNAL | | | Eosinophils | performed at [facility];888 | K/uL | LAB | | | | [address];[place] | | | | | | [address] | | | | + + + + + + | Absolute | 0.17 (H)Comment: Testing | 0.00 - 0.10 | EXTERNAL | | | Basophils | performed at [facility];[address] | K/uL | LAB | | | | [address];[place], [place] | | | | | | [address] | | | | + + + [...] EXTERNAL | | | | performed at [facility] | | LAB | | | | [address];[place], [place] | | | | | | [address] | | | | + + + [...] EXTERNAL | | | | performed at [facility];[address] | | LAB | | | | [address] [facility];[place], [place] | | | | | | [address] | | | | + + + [...] EXTERNAL | | | | performed at [facility];[address] | | LAB | | | | [address];[place], [place] | | | | | | [address] | | | | + + + [...] EXTERNAL | | | | performed at [facility];[address] | | LAB | | | | [address];[place], [place] | | | | | | [address] | | | | + + + [...] EXTERNAL | | | | performed at [facility];888 | mmol/L | LAB | | | | [address];[place] | | | | | | [address] | | | | + + + + + + | K | 4.1Comment: Testing | 3.5 - 4.9 | EXTERNAL | | | | performed at [facility];888 | mmol/L | LAB | | | | [address];[place] | | | | | | [address] | | | | + + + + + + | Cl | 109Comment: Testing | 99 - 109 mmol/L | EXTERNAL | | | | performed at [facility];[address] | | LAB | | | | [address];[place] | | | | | | [address] | | | | + + + + + + | CO2 | 19 (L)Comment: Testing | 23 - 32 mmol/L | EXTERNAL | | | | performed at [facility];[address] | | LAB | | | | [address];[place] | | | | | | [address] | | | | + + + + + + | Anion Gap | 16Comment: Testing | 5 - 20 mmol/L | EXTERNAL | | | | performed at [facility];[address] | | LAB | | | | [address];[place] | | | | | | [address] | | | | + + + + + + | Glucose, | 174 (H)Comment: Testing | 65 - 99 mg/dL | EXTERNAL | | | Fasting | performed at [facility];[address] | | LAB | | | | [address];[place] | | | | | | [address] | | | | + + + + + + | BUN | 42 (H)Comment: Testing | 8 - 25 mg/dL | EXTERNAL | | | | performed at [facility];[address] | | LAB | | | | [address];[place] | | | | | | [address] | | | | + + + + + + | Creatinine | 2.6 (H)Comment: Testing | 0.50 - 1.00 | EXTERNAL | | | | performed at [facility];888 | mg/dL | LAB | | | | [address];[place] | | | | | | [address] | | | | + + + + + + | BUN/Creatin | 16Comment: Testing | | EXTERNAL | | | ine Ratio | performed at [facility];[address] | | LAB | | | | [address];[place] | | | | | | [address] | | | | + + + + + + | Calcium | 9.0Comment: Testing | 8.5 - 10.5 | EXTERNAL | | | | performed at [facility];888 | mg/dL | LAB | | | | [address];[place] | | | | | | [address] | | | | + + + + + + | Protein, | 8.6 (H)Comment: Testing | 6.3 - 8.2 g/dL | EXTERNAL | | | Total | performed at [facility];[address] | | LAB | | | | [address];[place] | | | | | | [address] | | | | + + + + + + | Albumin | 3.4 (L)Comment: Testing | 3.6 - 5.0 g/dL | EXTERNAL | | | | performed at [facility];[address] | | LAB | | | | [address];[place] | | | | | | [address] | | | | + + + + + + | Globulin | 5.2 (H)Comment: Testing | 1.3 - 4.9 g/dL | EXTERNAL | | | | performed at [facility];[address] | | LAB | | | | [address];[place] | | | | | | [address] | | | | + + + + + + | A/G Ratio | 0.6 (L)Comment: Testing | 1.0 - 2.4 | EXTERNAL | | | | performed at [facility];[address] | | LAB | | | | [address];[place] | | | | | | [address] | | | | + + + + + + | Bilirubin | 0.5Comment: Testing | 0.1 - 1.5 mg/dL | EXTERNAL | | | Total | performed at [facility];[address] | | LAB | | | | [address];[place] | | | | | | [address] | | | | + + + + + + | ALP, | 127 (H)Comment: Testing | 35 - 115 U/L | EXTERNAL | | | External | performed at [facility];888 | | LAB | | | | [address];[place] | | | | | | [address] | | | | + + + + + + | AST | 382 (H)Comment: Testing | 10 - 45 U/L | EXTERNAL | | | | performed at [facility];888 | | LAB | | | | [address];[place] | | | | | | [address] | | | | + + + + + + | ALT | 315 (H)Comment: Testing | 10 - 65 U/L | EXTERNAL | | | | performed at [facility];888 | | LAB | | | | [address];[place] | | | | | | [address] | | | | + + + [...] | | | | | | at [facility];[address] | | | | | | [address];[place] [address] | | | | + + + [...]
--- OUTSIDE RECORDS SUMMARY | ~2019-11-09 | XMS | Encounter Summary ---
Demographics + + + | Address | [address] | | | [place] [address] | + + + | Home Phone | | + + + | Preferred Language | Unknown | + + + | Marital Status | Single | + + + | Synagogue Affiliation | [id number] | + + + | Race | Unknown | + + + | Ethnic Group | Unknown | + + + Author + + + | Author | [facility] | | | and [place] | + + + | Organization | [facility] | | | and [place] [...] Team Providers + +------+ + | Care Zipper Cutter Name | Role | Phone | + [...] | | | | | radiculopath | [address] | [address] | | | | | y Facet | [place], | [place], [place] | | | | | arthritis of | [place] [address] | [address] | | | | | cervical | Phone: | Phone: | | | | | region | [phone] | [phone] | | | | | Chronic | Fax: | Fax: | | | | | bilateral | [phone] | [phone] | | | | | low back [...] | Cervical | [address] | | | | n | radiculopath | [address] | [place], | | | | | y Left arm | [place], | [place] [address] | | | | | numbness | [place] [address] | Phone: | | | | | Left arm | Phone: | [phone] | | | | | weakness | [phone] | Fax: | | | | | Procedures | Fax: | [phone] | | | | | DOS 01/04/16 | [phone] | | +--------+ + + + + [...] | | | | | radiculopath | [address] | [address] | | | | | y Left arm | [place], | AVE | | | | | numbness | [place] [address] | [place], [place] | | | | | Left arm | Phone: | [phone] | | | | | weakness | [phone] | Phone: | | | | | Facet | Fax: | [phone] | | | | | arthritis of | [phone] | Fax: | | | | | cervical | | [phone] | | | | | region | [...] | Rehabilitatio | neck pain | PA-C [address] | [address] | | | | n | Low back | [facility] | [place], | | | | | pain Mid | WAY | [place] [address] | | | | | back pain | [place], | Phone: | | | | | | [place] [address] | [phone] | | | | | | Phone: | Fax: | | | | | | [phone] | [phone] | | | | | | Fax: | | | | | | | [phone] | | +--------+--------+ + + + + Encounter Details +--------+---------+ + + + | Date | Type | Department | Care Team | Description | +--------+---------+ + + + | 12/14/ | Office | [facility] | Henri Stewart, | Cervicalgia (Primary | | 2016 | Visit | PHYSIATRY [address] | MD [address] | Dx); Cervical | | | | [address] | [place] | radiculopathy; Left | | | | [place] | [address] | arm numbness; Left | | | | [address] | | arm weakness; Facet | | | | [phone] | | arthritis of | | | | | | cervical region | | | | | | ([facility]); Chronic | | | | | | [...] physical therapy within one week, please contact [facility]. Once you have completed physical therapy please continue the home exercise progr am as outline by physical therapy, indefinitely. Please attend the injection appointment with Ramon Mijares MD. If his office has not co ntacted you within one week, to schedule the injection, please contact my clinic. Your inje ction will be performed at [facility]. Please take note of weather your pain is significantly reduced in the hours immediately following the injecti on. Return to the clinic for nerve conduction study of the left upper extremity. A pain clinic consult has been requested at [facility]. documented in this encounter Progress Notes Henri Stewart MD - 12/15/2015 4:38 PM PDTThis office note has been dictated. Report Confirmation# [id number] signed by Henri Stewart MD at 12/15/2015 [...] | | | | | [place] [address] | | | | | | [phone] | | | | | | | [...] region | | | | | | ([facility]) Chronic | | | | | | [...] region | | | | | | ([facility]) Chronic | | | | | | [...]
--- OUTSIDE RECORDS SUMMARY | ~2019-11-09 | XMS | Encounter Summary ---
Demographics + + + | Address | [address] | | | [place] [address] | + + + | Home Phone [...] | Author | [facility] | | | and [place] | + + + | Organization | [facility] | | | and s[place]melana | + + + | Address | [...] Team Providers + +------+ + | Care Employment Program Representative Name | Role | Phone | [...] Provider Unknown | | | | | [place], [place] | | | | | | [address] | (Fax) | | | | | [phone] | | | +--------+ + + + [...] | | | | | [place] [address] | | | | | | [phone] | | | | | | | [...] + + + + | FIBROSURE | [id number]: CIRRHOSIS | | EXTERNAL | | | [...] + + + + | Necroinflam | [id number]: SEVERE | | EXTERNAL | | | [...] + + + + | HCV | [id number] (A) | 0 IU/ml | EXTERNAL | [...]
--- OUTSIDE RECORDS SUMMARY | ~2019-11-09 | XMS | Encounter Summary ---
Demographics + + + | Address | [address] | | | [place] [address] | + + + | Home Phone | | + + + | Preferred Language | Unknown | + + + | Marital Status | Single | + + + | Sabianist Affiliation | 1009 | + + + | Race | Unknown | + + + | Ethnic Group | Unknown | + + + Author + + + | Author | [facility] | | | and [place] | + + + | Organization | [facility] | | | and [...] Team Providers + +------+ + | Care Window Shade Cutter Name | Role | Phone | + +------+ + | Hayden Acevedo MD | PCP | | + +------+ + Encounter Details +--------+ + + + + | Date | Type | Department | Care Team | Description | +--------+ + + + + | 08/07/ | Hospital | [facility] | Conversion | | | 2014 | Encounter | [facility] | Transaction, | | | | | [address] | Provider Unknown | | | | | [address] [place], [place] | | | | | | [address] | (Fax) | | | | | [phone] | | | +--------+ + + + [...] [facility] | | | | | | [address] | | | | | | [place] [address] | | | | | | [phone] | | | | | | | | +--------+---------+ + + + documented as of this encounter Visit Diagnoses Not on filedocumented in this encounter"
--- OUTSIDE RECORDS SUMMARY | ~2019-11-09 | XMS | Encounter Summary ---
Demographics + + + | Address | [address] | | | [place] [address] | + + + | Home Phone [...] + | Author | [facility] | | | and [place] | + + + | Organization | [facility] | | | and [...] Team Providers + +------+ + | Care Phlebotomy Coordinator Name | Role | Phone | + +------+ + | Hayden Acevedo MD | PCP | | + +------+ + Encounter Details +--------+ + + + + | Date | Type | Department | Care Team | Description | +--------+ + + + + | 01/22/ | Hospital | [facility] | Conversion | Thoracic or | | 2013 | Encounter | [facility] | Transaction, | lumbosacral neuritis | | | | CLINIC [address] | Provider Unknown | or radiculitis, | | | | [address] [place], [place] | | unspecified | | | | [address] | (Fax) | | | | | [phone] | | | +--------+ + + + [...] [facility] | | | | | | [address] | | | | | | [place] [address] | | | | | | [phone] | | | | | | | [...] | | | Patient | performed at [facility] [place];[address] | | LAB | | | | [address];[place], [place] | | | | | | [address] | | | | + + + [...] | | | | | performed at [facility] [place];[facility] | | | | | | [address] [facility];[place], [place] | | | | | | [address] | | | | + + + [...] EXTERNAL | | | | performed at [facility], [address] | | LAB | | | | [address], | | | | | | [place] [address] | | | | + + + + + + | Red Blood | 3.99Comment: Testing | 3.70 - 5.10 | EXTERNAL | | | Cells | performed at [facility], [address] | M/uL | LAB | | | Counted | [address], | | | | | | [place] [address] | | | | + + + + + + | Hemoglobin | 12.0Comment: Testing | 11.3 - 15.5 | EXTERNAL | | | | performed at [facility], [address] | g/dL | LAB | | | | [address], | | | | | | [place] [address] | | | | + + + + + + | Hematocrit, | 36.2Comment: Testing | 34.0 - 46.0 % | EXTERNAL | | | POC | performed at [facility], [address] | | LAB | | | | [address], | | | | | | [place] [address] | | | | + + + + + + | MCV | 90.9Comment: Testing | 80.0 - 100.0 fl | EXTERNAL | | | | performed at [facility], [address] | | LAB | | | | [address], | | | | | | [place] [address] | | | | + + + + + + | MCH | 30.1Comment: Testing | 27.0 - 34.0 pg | EXTERNAL | | | | performed at [facility], [address] | | LAB | | | | [address], | | | | | | [place] [address] | | | | + + + + + + | MCHC | 33.1Comment: Testing | 32.0 - 35.5 | EXTERNAL | | | | performed at [facility], [address] | g/dL | LAB | | | | [address], | | | | | | [place] [address] | | | | + + + + + + | RDW-CV | 48.6Comment: Testing | 37 - 53 fl | EXTERNAL | | | | performed at [facility], [address] | | LAB | | | | [address], | | | | | | [place] [address] | | | | + + + + + + | Platelet | 210Comment: Testing | 150 - 400 K/uL | EXTERNAL | | | Count | performed at [facility], [address] | | LAB | | | Plasma | [address], | | | | | | [place] [address] | | | | + + + + + + | MPV | 8.0Comment: Testing | fl | EXTERNAL | | | | performed at [facility], [address] | | LAB | | | | [address], | | | | | | [place] [address] | | | | + + + + + + | Differentia | AUTOMATEDComment: | | EXTERNAL | | | l Type | Testing performed at | | LAB | | | | [facility], [address] | | | | | | [place] | | | | | | [address] | | | | + + + + + + | % Segmented | 35.5Comment: Testing | % | EXTERNAL | | | | performed at [facility], [address] | | LAB | | | Neutrophils | [address], | | | | | | [place] [address] | | | | + + + + + + | % | 47.9Comment: Testing | % | EXTERNAL | | | Lymphocytes | performed at [facility], [address] | | LAB | | | | [address], | | | | | | [place] [address] | | | | + + + + + + | % Monocytes | 8.8Comment: Testing | % | EXTERNAL | | | | performed at [facility], [address] | | LAB | | | | [address], | | | | | | [place] [address] | | | | + + + + + + | % | 7.0Comment: Testing | % | EXTERNAL | | | Eosinophils | performed at [facility], [address] | | LAB | | | | [address], | | | | | | [place] [address] | | | | + + + + + + | % Basophils | 0.8Comment: Testing | % | EXTERNAL | | | | performed at [facility], [address] | | LAB | | | | [address], | | | | | | [place] [address] | | | | + + + + + + | Absolute | 2.0Comment: Testing | 1.9 - 7.4 K/uL | EXTERNAL | | | Segmented | performed at [facility], [address] | | LAB | | | Neutrophils | [address], | | | | | | [place] [address] | | | | + + + + + + | Absolute | 2.7Comment: Testing | 1.0 - 3.9 K/uL | EXTERNAL | | | Lymphocytes | performed at [facility], [address] | | LAB | | | | [address], | | | | | | [place] [address] | | | | + + + + + + | Absolute | 0.5Comment: Testing | 0 - 0.8 K/uL | EXTERNAL | | | Monocytes | performed at [facility], [address] | | LAB | | | | [address], | | | | | | [place] [address] | | | | + + + + + + | Absolute | 0.4Comment: Testing | 0 - 0.5 K/uL | EXTERNAL | | | Eosinophils | performed at [facility], [address] | | LAB | | | | [address], | | | | | | [place] [address] | | | | + + + + + + | Absolute | 0.0Comment: Testing | 0 - 0.1 K/uL | EXTERNAL | | | Basophils | performed at [facility], [address] | | LAB | | | | [address], | | | | | | [place] [address] | | | | + + + [...] | | | | | [place] [address] | | | | + + + + + + | K | 4.2Comment: Testing | 3.5 - 4.9 | EXTERNAL | | | | performed at [facility], [address] | mmol/L | LAB | | | | [address], | | | | | | [place] [address] | | | | + + + + + + | Cl | 108Comment: Testing | 99 - 109 mmol/L | EXTERNAL | | | | performed at [facility], [address] | | LAB | | | | [address], | | | | | | [place] [address] | | | | + + + + + + | CO2 | 25Comment: Testing | 23 - 32 mmol/L | EXTERNAL | | | | performed at [facility], [address] | | LAB | | | | [address], | | | | | | [place] [address] | | | | + + + + + + | Anion Gap | 6Comment: Testing | 5 - 20 mmol/L | EXTERNAL | | | | performed at [facility], [address] | | LAB | | | | [address], | | | | | | [place] [address] | | | | + + + + + + | Glucose, | 113 (H)Comment: Testing | 65 - 99 mg/dL | EXTERNAL | | | Fasting | performed at [facility], [address] | | LAB | | | | [address], | | | | | | [place] [address] | | | | + + + + + + | BUN | 16Comment: Testing | 8 - 25 mg/dL | EXTERNAL | | | | performed at [facility], [address] | | LAB | | | | [address], | | | | | | [place] [address] | | | | + + + + + + | Creatinine | 0.76Comment: Testing | 0.50 - 1.00 | EXTERNAL | | | | performed at [facility], [address] | mg/dL | LAB | | | | [address], | | | | | | [place] [address] | | | | + + + + + + | BUN/Creatin | 21Comment: Testing | | EXTERNAL | | | ine Ratio | performed at [facility], [address] | | LAB | | | | [address], | | | | | | [place] [address] | | | | + + + + + + | Calcium | 9.7Comment: Testing | 8.5 - 10.2 | EXTERNAL | | | | performed at [facility], [address] | mg/dL | LAB | | | | [address]rika [facility], | | | | | | [place] [address] | | | | + + + [...] | | | | | | Erika [facility], | | | | | | [place] [address] | | | | + + + [...] EXTERNAL LAB | | Testing performed at [facility] [place];[address] [place] [address];[place] [address] MRSA PCR | | | NEGATIVE Testing performed at | | | [facility] [place];[address] [place] [address];[place] [address] | | + + + + +---------+ [...] + + | Historically converted procedure from [facility] | EXTERNAL LAB | + + + [...]
--- OUTSIDE RECORDS SUMMARY | ~2019-11-09 | XMS | Encounter Summary ---
Demographics + + + | Address | [address] | | | [place] [address] | + + + | Home Phone [...] + | Author | [facility] | | | and [place] | + + + | Organization | [facility] | | | and [place] | + + + | Address | Unknown | + + + | Phone | Unavailable | + + + Support + + +---------+ + | Name | Relationship | Address | Phone | + + +---------+ + | Gene Sotelo | ECON | Unknown | | + + +---------+ + | Mark Lweis | ECON | Unknown | | + + +---------+ + Care Team Providers + +------+ + | Care Leather Cleaner Name | Role | Phone | + [...] PHYSIATRY [address] | MD [address] | | | | | [address] | [place] | | | | | [place], [place] | [address] | | | | | [address] | | | | | | [phone] | | | +--------+ + + + [...] | | | | | [place] [address] | | | | | | [phone] | | | | | | | | +--------+---------+ + + + documented as of this encounter Visit Diagnoses Not on filedocumented in this encounter"
--- OUTSIDE RECORDS SUMMARY | ~2019-11-09 | XMS | Encounter Summary ---
Demographics + + + | Address | [address] | | | [place] [address] | + + + | Home Phone [...] | Author | [facility] | | | and [place] | + + + | Organization | [facility] | | | and [place] | [...] Team Providers + +------+ + | Care Export Coordinator Name | Role | Phone | + +------+ + | Hayden Acevedo MD | PCP | | + +------+ + Encounter Details +--------+ + + + + | Date | Type | Department | Care Team | Description | +--------+ + + + + | 03/30/ | Emergency | [facility] | Henry Cedillo MD | COPD exacerbation | | 2013 | | MEDICAL CENTER | [address] | ([facility]) | | | | EMERGENCY CENTER | [place] [address] | | | | | [address] | [phone] | | | | | [place], [place] | | | | | | [address] | | | | | | [phone] | | | +--------+ + + + [...] documented as of this encounter Progress Notes Abeba Rodríguez, Provider Unknown - 03/30/2014 9:26 PM PDTFormatting of this note m ight be different from the original. Case Management by OG Bardales at 03/30/142125 Author: OG Bardales Service: (none) Author Type: Haunted History Tour Guide Filed: 03/30/142125 Date of Service: 03/30/142125 Status: Signed Adventure Challenge Instructor: OG Bardales (Haunted History Tour Guide) BALDO vega Pt with 6 ED visits in past 12 months. Terri Alegre LANAdoblaine kennedy in this encounter Plan of Treatment +--------+---------+ + + + | Date | Type | Specialty | Care Team | Description | +--------+---------+ + + + | 11/09/ | Office | Neurosurgery | Jose Gonzalez DO | | | 2019 | Visit | | [address] | [address] | | | | | | [place] [address] | | | | | | [phone] | | | | | | | [...] exacerbation | + + documented in this encounter"
--- OUTSIDE RECORDS SUMMARY | ~2019-11-09 | XMS | Encounter Summary ---
Demographics + + + | Address | [address] | | | [place] [address] | + + + | Home Phone | | + + + | Preferred Language | Unknown | + + + | Marital Status | Single | + + + | Mormonism Affiliation | 1009 | + + + | Race | Unknown | + + + | Ethnic Group | Unknown | + + + Author + + + | Author | [facility] | | | and [place] | + + + | Organization | [facility] | | [...] Team Providers + +------+ + | Care Mold Yard Supervisor Name | Role | Phone | + +------+ + | Hayden Acevedo MD | PCP | | + +------+ + Encounter Details +--------+ + + + + | Date | Type | Department | Care Team | Description | +--------+ + + + + | 09/19/ | Hospital | [facility] | Geovanny Berg MD | Nicotine addiction; | | 2013 - | Encounter | MEDICAL CENTER | [address] | OAB (overactive | | | | CLINICAL DECISION | [place] [address] | bladder); GERD | | 09/21/ | | [address] | [phone] | (gastroesophageal | | 2013 | | [place] | | reflux disease); | | | | [phone] | | Vitamin D | | | | [phone] | | deficiency; COPD | | | [...] Summaries by Philip Singh MD at 09/21/13 662 Author: Philip Singh MD Service: (none) Author Type: Physician Filed: 09/22/13 1011 Date of Service: 09/21/131756 Status: Signed Contract Management Specialist: Philip Singh MD (Physician) Related Notes: Original Note by Philip Singh MD (Physician) filed at 09/21/13 1805 [facility] Service: Hospitalist Physician Discharge Summary Patient [...] Hospital Course: The patient was admitted to [facility] on September 19, 2013, with [...] be discharged home as noted above. Our [facility] management arranged for the patient to receive paid-for taxi transportation to her house hold in the [facility]. The family of the patient was not available for transport at the janette e of discharge from the hospital. Past Medical History: Past Medical History Diagnosis Date Anxiety Hypertension Thyroid disease Depression Past Surgical History Procedure Date Hysterectomy Cholecystectomy Appendectomy Bladder surgery [facility] 07/14/2013 [facility] 08/06/2013 Discharged Condition: Stable for discharge as [...] or Self Care Follow up: ANURAG Winters [address] [place] [id number] Schedule an appointment as soon as [...] needed for muscle spasm and tightness ergocalciferol 40514 UNITS capsule QTY: 12 capsule Refills: 0 For diagnoses: Low Vitamin D Level Commonly known as: DRISDOL Take 1 capsule by mouth once a week. estradiol 0.1 MG/GM vaginal cream QTY: 42.5 g Refills: 12 For diagnoses: Loss Of Bladder Control, Painful Sexual [place], Fallen Bladder, Saggin g Of Female Genital [...] 1150 Date of Service: 09/21/131149 Status: Signed Contract Management Specialist: Marce Garcia RPH (Pharmacist) Clinical Pharmacy Note: [...] Service: Nephrology Author Type: Physician Filed: 09/21/13 9210 Date of Service: 09/21/131111 Status: Signed Contract Management Specialist: Nura Lee MD (Physician) [facility] Service: NEPHROLOGY progress Note Nohemi Espitia 53 y.o. [phone] [id number] female [facility] Day: LOS: 2 days The patient [...] and tightness 75 tablet 0 ergocalciferol (DRISDOL) 08415 UNITS capsule Take 1 capsule by mouth [...] 0502 Date of Service: 09/21/13458 Status: Signed Contract Management Specialist: Aury Belcher RN (Registered Nurse) Patient alert [...] 0926 Date of Service: 09/20/131718 Status: Signed Contract Management Specialist: Philip Singh MD (Physician) Related Notes: Original Note by Philip Singh MD (Physician) filed at 09/20/13 7959 [facility] Service: Hospitalist Progress Note Pt: Nohemi Espitia AGE/SEX: 53 y.o. female : 1960 ROOM: [address] [place] [address] " HISTORY OF PRESENT ILLNESS The patient [...] and confused. Hence, she was referred to [facility] Emergency Department where the patient's blood [...] arrest and intubation at a hospital in [place] as per the patient/niece's report. During my [...] Procedure Date Hysterectomy Cholecystectomy Appendectomy Bladder surgery [facility] 07/14/2013 [facility] 08/06/2013 PROBLEM LIST Active Problems: Altered mental [...] and confused. She was subsequently transferred to [facility] emergency room for evaluation. She was [...] Case Management by OG Bailey at 09/20/13 8983 Author: OG Bailey Service: (none) Author Type: Business Investor Filed: 09/20/13 6053 Date of Service: 09/20/13 9911 Status: Addendum Contract Management Specialist: OG Bailey (Business Investor) Related Notes: Original Note by OG Bailey (Business Investor) filed at 09/20/13 0312 09/20/13 1500 Discharge Planning Evaluation Admitting Diagnosis [...] ill return to her Mobile Home in [place], [place]. Pt stated that her relative will [...] return to her prior living situation in [place], [place] Roslyn Springer Nura Thomas - 09/20/2013 1:04 PM PDTFormatting of this note might be different from the or iginal. Progress Notes by Nura Lee MD at 09/20/13 1307 Author: Nura Lee MD Service: Nephrology Author Type: Physician Filed: 09/20/13 1311 Date of Service: 09/20/13 1304 Status: Signed Contract Management Specialist: Nura Lee MD (Physician) [facility] Service: NEPHROLOGY progress Note Nohemi Espitia 53 y.o. [phone] female [facility] Day: LOS: 1 day The patient [...] Procedure Date Hysterectomy Cholecystectomy Appendectomy Bladder surgery [facility] 07/14/2013 [facility] 08/06/2013 Prescriptions prior to admission Medication Sig Dispense Refill albuterol (PROVENTIL) (2.5 MG/3ML) 0.083% nebulizer solution Take 6 mLs by nebulization every 6 (six) hours as needed for Wheezing. 20 vial 1 baclofen (LIORESAL) 10 MG tablet Take 1-2 tabs po q 8hrs as needed for muscle spasm and tightness 75 tablet 0 ergocalciferol (DRISDOL) 33857 UNITS capsule Take 1 capsule by mouth [...] 09/19/131836 Date of Service: 09/19/131836 Status: Signed Contract Management Specialist: Marce Garcia RPH (Pharmacist) Clinical Pharmacy Note: [...] | | | | | [place] [address] | | | | | | [phone] | | | | | | | [...] | | | | | [place] [address] | | | | + + + + + + | Red Blood | 3.63 (L)Comment: Testing | 3.70 - 5.10 | EXTERNAL | | | Cells | performed at [facility], [address] | M/uL | LAB | | | Counted | [address], | | | | | | [place] [address] | | | | + + + + + + | Hemoglobin | 10.9 (L)Comment: Testing | 11.3 - 15.5 | EXTERNAL | | | | performed at [facility], [address] | g/dL | LAB | | | | [address], | | | | | | [place] [address] | | | | + + + + + + | Hematocrit, | 33.2 (L)Comment: Testing | 34.0 - 46.0 % | EXTERNAL | | | POC | performed at [facility], [address] | | LAB | | | | [address], | | | | | | [place] [address] | | | | + + + + + + | MCV | 91.6Comment: Testing | 80.0 - 100.0 fl | EXTERNAL | | | | performed at [facility], [address] | | LAB | | | | [address], | | | | | | [place] [address] | | | | + + + + + + | MCH | 30.1Comment: Testing | 27.0 - 34.0 pg | EXTERNAL | | | | performed at [facility], [address] | | LAB | | | | [address], | | | | | | [place] [address] | | | | + + + + + + | MCHC | 32.9Comment: Testing | 32.0 - 35.5 | EXTERNAL | | | | performed at [facility], [address] | g/dL | LAB | | | | [address], | | | | | | [place] [address] | | | | + + + + + + | RDW-CV | 45.9Comment: Testing | 37 - 53 fl | EXTERNAL | | | | performed at [facility], [address] | | LAB | | | | [address], | | | | | | [place] [address] | | | | + + + + + + | Platelet | 314Comment: Testing | 150 - 400 K/uL | EXTERNAL | | | Count | performed at [facility], [address] | | LAB | | | Plasma | [address], | | | | | | [place] [address] | | | | + + + + + + | MPV | 7.5Comment: Testing | fl | EXTERNAL | | | | performed at [facility], [address] | | LAB | | | | [address], | | | | | | [place] [address] | | | | + + + + + + | Differentia | AUTOMATEDComment: | | EXTERNAL | | | l Type | Testing performed at | | LAB | | | | [facility], [address] | | | | | | [place] | | | | | | [address] | | | | + + + + + + | % Segmented | 39.7Comment: Testing | % | EXTERNAL | | | | performed at [facility], [address] | | LAB | | | Neutrophils | [address], | | | | | | [place] [address] | | | | + + + + + + | % | 48.1Comment: Testing | % | EXTERNAL | | | Lymphocytes | performed at [facility], [address] | | LAB | | | | [address], | | | | | | [place] [address] | | | | + + + + + + | % Monocytes | 6.6Comment: Testing | % | EXTERNAL | | | | performed at [facility], [address] | | LAB | | | | [address], | | | | | | [place] [address] | | | | + + + + + + | % | 5.3Comment: Testing | % | EXTERNAL | | | Eosinophils | performed at [facility], [address] | | LAB | | | | [address], | | | | | | [place] [address] | | | | + + + + + + | % Basophils | 0.3Comment: Testing | % | EXTERNAL | | | | performed at [facility], [address] | | LAB | | | | [address], | | | | | | [place] [address] | | | | + + + + + + | Absolute | 2.5Comment: Testing | 1.9 - 7.4 K/uL | EXTERNAL | | | Segmented | performed at [facility], [address] | | LAB | | | Neutrophils | [address], | | | | | | [place] [address] | | | | + + + + + + | Absolute | 3.0Comment: Testing | 1.0 - 3.9 K/uL | EXTERNAL | | | Lymphocytes | performed at [facility], [address] | | LAB | | | | [address], | | | | | | [place] [address] | | | | + + + + + + | Absolute | 0.4Comment: Testing | 0 - 0.8 K/uL | EXTERNAL | | | Monocytes | performed at [facility], [address] | | LAB | | | | [address], | | | | | | [place] [address] | | | | + + + + + + | Absolute | 0.3Comment: Testing | 0 - 0.5 K/uL | EXTERNAL | | | Eosinophils | performed at [facility], [address] | | LAB | | | | [address], | | | | | | [place] [address] | | | | + + + + + + | Absolute | 0.0Comment: Testing | 0 - 0.1 K/uL | EXTERNAL | | | Basophils | performed at [facility], [address] | | LAB | | | | [address], | | | | | | [place] [address] | | | | + + + [...] EXTERNAL | | | | performed at [facility], [address] | | LAB | | | | [address], | | | | | | [place] [address] | | | | + + + [...] EXTERNAL | | | | performed at [facility] | | LAB | | | | [address];[place] | | | | | | [address] | | | | + + + [...] | | | | | [place] [address] | | | | + + + + + + | K | 4.2Comment: Testing | 3.5 - 4.9 | EXTERNAL | | | | performed at [facility], [address] | mmol/L | LAB | | | | [address], | | | | | | [place] [address] | | | | + + + + + + | Cl | 114 (H)Comment: Testing | 99 - 109 mmol/L | EXTERNAL | | | | performed at [facility], [address] | | LAB | | | | [address], | | | | | | [place] [address] | | | | + + + + + + | CO2 | 21 (L)Comment: Testing | 23 - 32 mmol/L | EXTERNAL | | | | performed at [facility], [address] | | LAB | | | | [address], | | | | | | [place] [address] | | | | + + + + + + | Anion Gap | 9Comment: Testing | 5 - 20 mmol/L | EXTERNAL | | | | performed at [facility], [address] | | LAB | | | | [address], | | | | | | [place] [address] | | | | + + + + + + | Glucose, | 88Comment: Testing | 65 - 99 mg/dL | EXTERNAL | | | Fasting | performed at [facility], [address] | | LAB | | | | [address], | | | | | | [place] [address] | | | | + + + + + + | BUN | 15Comment: Testing | 8 - 25 mg/dL | EXTERNAL | | | | performed at [facility], [address] | | LAB | | | | [address], | | | | | | [place] [address] | | | | + + + + + + | Creatinine | 0.90Comment: Testing | 0.50 - 1.00 | EXTERNAL | | | | performed at [facility], [address] | mg/dL | LAB | | | | [address], | | | | | | [place] [address] | | | | + + + + + + | Calcium | 8.5Comment: Testing | 8.5 - 10.2 | EXTERNAL | | | | performed at [facility], [address] | mg/dL | LAB | | | | [address], | | | | | | [place] [address] | | | | + + + + + + | Albumin | 2.9 (L)Comment: Testing | 3.6 - 5.0 g/dL | EXTERNAL | | | | performed at [facility], [address] | | LAB | | | | [address], | | | | | | [place] [address] | | | | + + + + + + | PHOSPHORUS | 3.0Comment: Testing | 2.3 - 4.8 mg/dL | EXTERNAL | | | | performed at [facility], [address] | | LAB | | | | [address], | | | | | | [place] [address] | | | | + + + [...] | | | | | | at [facility], [address] | | | | | | [address], | | | | | | [place] [address] | | | | + + + [...] | | LAB | | | | [place], | | | | | | [place] [address] | | | | + + + + + + | Complement | 22.6Comment: Testing | 10 - 40 mg/dL | EXTERNAL | | | Comp 4 | performed at [facility], [address] | | LAB | | | | [address], | | | | | | [place] [address] | | | | + + + [...] | | | | | [place] [address] | | | | + + + + + + | Red Blood | 3.63 (L)Comment: Testing | 3.70 - 5.10 | EXTERNAL | | | Cells | performed at [facility], [address] | M/uL | LAB | | | Counted | [address], | | | | | | [place] [address] | | | | + + + + + + | Hemoglobin | 11.2 (L)Comment: Testing | 11.3 - 15.5 | EXTERNAL | | | | performed at [facility], [address] | g/dL | LAB | | | | [address], | | | | | | [place] [address] | | | | + + + + + + | Hematocrit, | 33.3 (L)Comment: Testing | 34.0 - 46.0 % | EXTERNAL | | | POC | performed at [facility], [address] | | LAB | | | | [address], | | | | | | [place] [address] | | | | + + + + + + | MCV | 91.9Comment: Testing | 80.0 - 100.0 fl | EXTERNAL | | | | performed at [facility], [address] | | LAB | | | | [address], | | | | | | [place] [address] | | | | + + + + + + | MCH | 30.8Comment: Testing | 27.0 - 34.0 pg | EXTERNAL | | | | performed at [facility], [address] | | LAB | | | | [address], | | | | | | [place] [address] | | | | + + + + + + | MCHC | 33.5Comment: Testing | 32.0 - 35.5 | EXTERNAL | | | | performed at [facility], [address] | g/dL | LAB | | | | [address], | | | | | | [place] [address] | | | | + + + + + + | RDW-CV | 45.5Comment: Testing | 37 - 53 fl | EXTERNAL | | | | performed at [facility], [address] | | LAB | | | | [address], | | | | | | [place] [address] | | | | + + + + + + | Platelet | 362Comment: Testing | 150 - 400 K/uL | EXTERNAL | | | Count | performed at [facility], [address] | | LAB | | | Plasma | [address], | | | | | | [place] [address] | | | | + + + + + + | MPV | 7.5Comment: Testing | fl | EXTERNAL | | | | performed at [facility], [address] | | LAB | | | | [address], | | | | | | [place] [address] | | | | + + + + + + | Differentia | AUTOMATEDComment: | | EXTERNAL | | | l Type | Testing performed at | | LAB | | | | [facility], [address] | | | | | | [place] | | | | | | [address] | | | | + + + + + + | % Segmented | 63.7Comment: Testing | % | EXTERNAL | | | | performed at [facility], [address] | | LAB | | | Neutrophils | [address], | | | | | | [place] [address] | | | | + + + + + + | % | 26.8Comment: Testing | % | EXTERNAL | | | Lymphocytes | performed at [facility], [address] | | LAB | | | | [address], | | | | | | [place] [address] | | | | + + + + + + | % Monocytes | 6.0Comment: Testing | % | EXTERNAL | | | | performed at [facility], [address] | | LAB | | | | [address], | | | | | | [place] [address] | | | | + + + + + + | % | 3.0Comment: Testing | % | EXTERNAL | | | Eosinophils | performed at [facility], [address] | | LAB | | | | [address], | | | | | | [place] [address] | | | | + + + + + + | % Basophils | 0.5Comment: Testing | % | EXTERNAL | | | | performed at [facility], [address] | | LAB | | | | [address], | | | | | | [place] [address] | | | | + + + + + + | Absolute | 6.4Comment: Testing | 1.9 - 7.4 K/uL | EXTERNAL | | | Segmented | performed at [facility], [address] | | LAB | | | Neutrophils | [address], | | | | | | [place] [address] | | | | + + + + + + | Absolute | 2.7Comment: Testing | 1.0 - 3.9 K/uL | EXTERNAL | | | Lymphocytes | performed at [facility], [address] | | LAB | | | | [address], | | | | | | [place] [address] | | | | + + + + + + | Absolute | 0.6Comment: Testing | 0 - 0.8 K/uL | EXTERNAL | | | Monocytes | performed at [facility], [address] | | LAB | | | | [address], | | | | | | [place] [address] | | | | + + + + + + | Absolute | 0.3Comment: Testing | 0 - 0.5 K/uL | EXTERNAL | | | Eosinophils | performed at [facility], [address] | | LAB | | | [address], | | | | | | [place] [address] | | | | + + + + + + | Absolute | 0.0Comment: Testing | 0 - 0.1 K/uL | EXTERNAL | | | Basophils | performed at [facility], [address] | | LAB | | | | [address], | | | | | | [place] [address] | | | | + + + [...] EXTERNAL | | | | performed at [facility], [address] | | LAB | | | | [address], | | | | | | [place] [address] | | | | + + + [...] | | | | | [place] [address] | | | | + + + [...] EXTERNAL | | | | performed at [facility];[address] | | LAB | | | | [address];[place] | | | | | | [address] | | | | + + + [...] | | | Total | performed at [facility], [address] | | LAB | | | | [address], | | | | | | [place] [address] | | | | + + + + + + | Albumin | 3.1 (L)Comment: Testing | 3.6 - 5.0 g/dL | EXTERNAL | | | | performed at [facility], [address] | | LAB | | | | [address], | | | | | | [place] [address] | | | | + + + + + + | Bilirubin | 0.3Comment: Testing | 0.1 - 1.5 mg/dL | EXTERNAL | | | Total | performed at [facility], [address] | | LAB | | | | [address], | | | | | | [place] [address] | | | | + + + + + + | Bilirubin | 0.1Comment: Testing | 0.0 - 0.3 mg/dL | EXTERNAL | | | Direct | performed at [facility], [address] | | LAB | | | | [address], | | | | | | [place] [address] | | | | + + + + + + | ALP, | 67Comment: Testing | 35 - 115 U/L | EXTERNAL | | | External | performed at [facility], [address] | | LAB | | | | [address], | | | | | | [place] [address] | | | | + + + + + + | AST | 93 (H)Comment: Testing | 10 - 45 U/L | EXTERNAL | | | | performed at [facility], [address] | | LAB | | | | [address], | | | | | | [place] [address] | | | | + + + + + + | ALT | 50Comment: Testing | 10 - 65 U/L | EXTERNAL | | | | performed at [facility], [address] | | LAB | | | | [address], | | | | | | [place] [address] | | | | + + + [...] | | | | | [place] [address] | | | | + + + + + + | K | 3.9Comment: Testing | 3.5 - 4.9 | EXTERNAL | | | | performed at [facility], [address] | mmol/L | LAB | | | | [address], | | | | | | [place] [address] | | | | + + + + + + | Cl | 114 (H)Comment: Testing | 99 - 109 mmol/L | EXTERNAL | | | | performed at [facility], [address] | | LAB | | | | [address], | | | | | | [place] [address] | | | | + + + + + + | CO2 | 21 (L)Comment: Testing | 23 - 32 mmol/L | EXTERNAL | | | | performed at [facility], [address] | | LAB | | | | [address], | | | | | | [place] [address] | | | | + + + + + + | Anion Gap | 8Comment: Testing | 5 - 20 mmol/L | EXTERNAL | | | | performed at [facility], [address] | | LAB | | | | [address], | | | | | | [place] [address] | | | | + + + + + + | Glucose, | 67Comment: Testing | 65 - 99 mg/dL | EXTERNAL | | | Fasting | performed at [facility], [address] | | LAB | | | | [address], | | | | | | [place] [address] | | | | + + + + + + | BUN | 20Comment: Testing | 8 - 25 mg/dL | EXTERNAL | | | | performed at [facility], [address] | | LAB | | | | [address], | | | | | | [place] [address] | | | | + + + + + + | Creatinine | 1.14 (H)Comment: Testing | 0.50 - 1.00 | EXTERNAL | | | | performed at [facility], [address] | mg/dL | LAB | | | | [address], | | | | | | [place] [address] | | | | + + + + + + | BUN/Creatin | 18Comment: Testing | | EXTERNAL | | | ine Ratio | performed at [facility], [address] | | LAB | | | | [address], | | | | | | [place] [address] | | | | + + + + + + | Calcium | 8.5Comment: Testing | 8.5 - 10.2 | EXTERNAL | | | | performed at [facility], [address] | mg/dL | LAB | | | | [facility], | | | | | | [place] [address] | | | | + + + [...] W | | | | | | [facility], | | | | | | [place] [address] | | | | + + + [...] LAB | | | | performed at [facility], [facility] [address] | | | | | | [address], | | | | | | [place] [address] | | | | + + + [...] | | | Urine | performed at [facility], [address] | | LAB | | | Random | [address], | | | | | | [place] [address] | | | | + + + [...] EXTERNAL | | | | performed at [facility];[address] | | LAB | | | | [address];[place] | | | | | | [address] | | | | + + + + + + | RBC, UA | 0-2Comment: Testing | 0 - 5 /hpf | EXTERNAL | | | | performed at [facility];[address] | | LAB | | | | [address];[place] | | | | | | [address] | | | | + + + + + + | Epithelial | 6-10Comment: Testing | /lpf | EXTERNAL | | | Cells | performed at [facility];[address] | | LAB | | | | [address];[place] | | | | | | [address] | | | | + + + + + + | Bacteria, | TRACE (A)Comment: | | EXTERNAL | | | UA | Testing performed at | | LAB | | | | [facility];[address];[place] [address] | | | | + + + + + + | CASTS | 11-15Comment: | /lpf | EXTERNAL | | | | HYALINETesting performed | | LAB | | | | at [facility];[address];[place] [address] | | | | | | | [...] | | | Screen, | performed at [facility];[address] | | | | | UA, POC | [address];[place] | | | | | | [address] | | | | + + + + + + | Barbiturate | NEGATIVEComment: | | EXTERNAL | | | s Screen, | Positive cutoff for | | LAB | | | Urine | SHAUNA = 200 ng/mLTesting | | | | | | performed at [facility];[address] | | | | | | [address];[place] | | | | | | [address] | | | | + + + + + + | Benzodiazep | NEGATIVEComment: | | EXTERNAL | | | aura | Positive cutoff for | | LAB | | | Screen, | BENZO = 200 ng/mLTesting | | | | | Urine | performed at [facility];[address] | | | | | | [address];[place] | | | | | | [address] | | | | + + + + + + | Cocaine | NEGATIVEComment: | | EXTERNAL | | | | Positive cutoff for | | LAB | | | | MAYRAM = 300 ng/mLTesting | | | | | | performed at [facility];[address] | | | | | | [address];[place] | | | | | | [address] | | | | + + + + + + | Methadone | NEGATIVEComment: | | EXTERNAL | | | | Positive cutoff for | | LAB | | | | MTD = 300 ng/mLTesting | | | | | | performed at [facility];[address] | | | | | | [address];[place] | | | | | | [address] | | | | + + + + + + | Opiates | NEGATIVEComment: | | EXTERNAL | | | | Positive cutoff for | | LAB | | | | OPI = 300 ng/mLTesting | | | | | | performed at [facility];[address] | | | | | | [address];[place] | | | | | | [address] | | | | + + + + + + | PCP | NEGATIVEComment: | | EXTERNAL | | | | Positive cutoff for PCP | | LAB | | | | = 25 ng/mLTesting | | | | | | performed at [facility] | | | | | | [address];[place] | | | | | | [id number] | | | | + + + [...] | | | | | performed at [facility] | | | | | | [address];[place] | | | | | | [address] | | | | + + + [...] EXTERNAL | | | | performed at [facility] | | LAB | | | | [address] [facility];[place], [place] | | | | | | [address] | | | | + + + [...] EXTERNAL | | | | performed at [facility];[address] | | LAB | | | | [address];[place] | | | | | | [address] | | | | + + + + + -+ | Red Blood | 3.96Comment: Testing | 3.70 - 5.10 | EXTERNAL | | | Cells | performed at [facility] | M/uL | LAB | | | Counted | [address];[place] | | | | | | [address] | | | | + + + + + -+ | Hemoglobin | 11.9Comment: Testing | 11.3 - 15.5 | EXTERNAL | | | | performed at [facility] | g/dL | LAB | | | | [address];[place] | | | | | | [address] | | | | + + + + + -+ | Hematocrit, | 35.3Comment: Testing | 34.0 - 46.0 % | EXTERNAL | | | POC | performed at [facility] | | LAB | | | | [address];[place] | | | | | | [address] | | | | + + + + + -+ | MCV | 89.0Comment: Testing | 80.0 - 100.0 fl | EXTERNAL | | | | performed at [facility] | | LAB | | | | [address];[place] | | | | | | [address] | | | | + + + + + -+ | MCH | 30.1Comment: Testing | 27.0 - 34.0 pg | EXTERNAL | | | | performed at [facility] | | LAB | | | | [address];[place] | | | | | | [address] | | | | + + + + + -+ | MCHC | 33.8Comment: Testing | 32.0 - 35.5 | EXTERNAL | | | | performed at [facility] | g/dL | LAB | | | | [address];[place] | | | | | | [address] | | | | + + + + + -+ | RDW-CV | 45.5Comment: Testing | 37 - 53 fl | EXTERNAL | | | | performed at [facility] | | LAB | | | | [address];[place] | | | | | | [address] | | | | + + + + + -+ | Platelet | 443 (H)Comment: Testing | 150 - 400 K/uL | EXTERNAL | | | Count | performed at [facility] | | LAB | | | Plasma | [address];[place] | | | | | | [address] | | | | + + + + + -+ | MPV | 7.3Comment: Testing | fl | EXTERNAL | | | | performed at [facility] | | LAB | | | | [address] | | | | | | [address] | | | | + + + + + -+ | Differentia | AUTOMATEDComment: | | EXTERNAL | | | l Type | Testing performed at | | LAB | | | | [facility];[address];[place] [address] | | | | + + + + + -+ | % Segmented | 60.4Comment: Testing | % | EXTERNAL | | | | performed at [facility] | | LAB | | | Neutrophils | [address] | | | | | | [address] | | | | + + + + + -+ | % | 26.9Comment: Testing | % | EXTERNAL | | | Lymphocytes | performed at [facility] | | LAB | | | | [address] | | | | | | [address] | | | | + + + + + -+ | % Monocytes | 8.0Comment: Testing | % | EXTERNAL | | | | performed at [facility] | | LAB | | | | [address] | | | | | | [address] | | | | + + + + + -+ | % | 4.0Comment: Testing | % | EXTERNAL | | | Eosinophils | performed at [facility] | | LAB | | | | [address] | | | | | | [address] | | | | + + + + + -+ | % Basophils | 0.7Comment: Testing | % | EXTERNAL | | | | performed at [facility] | | LAB | | | | [address] | | | | | | [address] | | | | + + + + + -+ | Absolute | 5.4Comment: Testing | 1.9 - 7.4 K/uL | EXTERNAL | | | Segmented | performed at [facility] | | LAB | | | Neutrophils | [address];[place] | | | | | | [address] | | | | + + + + + -+ | Absolute | 2.4Comment: Testing | 1.0 - 3.9 K/uL | EXTERNAL | | | Lymphocytes | performed at [facility] | | LAB | | | | [address];[place] | | | | | | [address] | | | | + + + + + -+ | Absolute | 0.7Comment: Testing | 0 - 0.8 K/uL | EXTERNAL | | | Monocytes | performed at [facility] | | LAB | | | | [address] | | | | | | [address] | | | | + + + + + -+ | Absolute | 0.4Comment: Testing | 0 - 0.5 K/uL | EXTERNAL | | | Eosinophils | performed at [facility] | | LAB | | | | [address];[place] | | | | | | [address] | | | | + + + + + -+ | Absolute | 0.1Comment: Testing | 0 - 0.1 K/uL | EXTERNAL | | | Basophils | performed at [facility] | | LAB | | | | [address];[place] | | | | | | [address] | | | | + + + + + -+ | Na | 141Comment: Testing | 135 - 143 | EXTERNAL | | | | performed at [facility] | mmol/L | LAB | | | | [address] | | | | | | [address] | | | | + + + + + -+ | K | 4.5Comment: Testing | 3.5 - 4.9 | EXTERNAL | | | | performed at [facility] | mmol/L | LAB | | | | [address] | | | | | | [address] | | | | + + + + + -+ | Cl | 110 (H)Comment: Testing | 99 - 109 mmol/L | EXTERNAL | | | | performed at [facility] | | LAB | | | | [address];[place] | | | | | | [address] | | | | + + + + + -+ | CO2 | 20 (L)Comment: Testing | 23 - 32 mmol/L | EXTERNAL | | | | performed at [facility] | | LAB | | | | [address] | | | | | | [address] | | | | + + + + + -+ | Anion Gap | 15Comment: Testing | 5 - 20 mmol/L | EXTERNAL | | | | performed at [facility] | | LAB | | | | [address] | | | | | | [address] | | | | + + + + + -+ | Glucose, | 94Comment: Testing | 65 - 99 mg/dL | EXTERNAL | | | Fasting | performed at [facility] | | LAB | | | | [address] | | | | | | [address] | | | | + + + + + -+ | BUN | 30 (H)Comment: Testing | 8 - 25 mg/dL | EXTERNAL | | | | performed at [facility] | | LAB | | | | [address] | | | | | | [address] | | | | + + + + + -+ | Creatinine | 2.26 (H)Comment: Testing | 0.50 - 1.00 | EXTERNAL | | | | performed at [facility] | mg/dL | LAB | | | | [address] | | | | | | [address] | | | | + + + + + -+ | BUN/Creatin | 14Comment: Testing | | EXTERNAL | | | ine Ratio | performed at [facility] | | LAB | | | | [address] | | | | | | [address] | | | | + + + + + -+ | Calcium | 9.5Comment: Testing | 8.5 - 10.2 | EXTERNAL | | | | performed at [facility] | mg/dL | LAB | | | | [address] | | | | | | [address] | | | | + + + + + -+ | Protein, | 8.2Comment: Testing | 6.3 - 8.2 g/dL | EXTERNAL | | | Total | performed at [facility] | | LAB | | | | [address] | | | | | | [address] | | | | + + + + + -+ | Albumin | 3.3 (L)Comment: Testing | 3.6 - 5.0 g/dL | EXTERNAL | | | | performed at [facility] | | LAB | | | | [address] | | | | | | [address] | | | | + + + + + -+ | Globulin | 4.9Comment: Testing | 1.3 - 4.9 g/dL | EXTERNAL | | | | performed at [facility] | | LAB | | | | [address];[place] | | | | | | [address] | | | | + + + + + -+ | A/G Ratio | 0.7 (L)Comment: Testing | 1.0 - 2.4 | EXTERNAL | | | | performed at [facility];[address] | | LAB | | | | [address];[place] | | | | | | [address] | | | | + + + + + -+ | Bilirubin | 0.2Comment: Testing | 0.1 - 1.5 mg/dL | EXTERNAL | | | Total | performed at [facility];[address] | | LAB | | | | [address];[place] | | | | | | [address] | | | | + + + + + -+ | ALP, | 108Comment: Testing | 35 - 115 U/L | EXTERNAL | | | External | performed at [facility];[address] | | LAB | | | | [address] | | | | | | [address] | | | | + + + + + -+ | AST | 153 (H)Comment: Testing | 10 - 45 U/L | EXTERNAL | | | | performed at [facility] | | LAB | | | | [address] | | | | | | [address] | | | | + + + + + -+ | ALT | 74 (H)Comment: Testing | 10 - 65 U/L | EXTERNAL | | | | performed at [facility] | | LAB | | | | [address] | | | | | | [address] | | | | + + + [...] | | | | | | at [facility];[address];[place] [address] | | | | + + + + + -+ | CK, Total | 3032 (H)Comment: Testing | 30 - 240 U/L | EXTERNAL | | | | performed at [facility];[address] | | LAB | | | | [address] | | | | | | [address] | | | | + + + [...] | | | | | performed at [facility];[address] | | | | | | [address];[place] | | | | | | [address] | | | | + + + + + -+ | aPTT, | 23Comment: Testing | 23 - 32 seconds | EXTERNAL | | | Patient | performed at [facility];[address] | | LAB | | | | [address];[place] | | | | | | [address] | | | | + + + + + -+ | CK-MB | 53.7 (H)Comment: Testing | 0.5 - 3.6 ng/mL | EXTERNAL | | | | performed at [facility];[address] | | LAB | | | | [address];[place] | | | | | | [address] | | | | + + + [...] EXTERNAL | | | | performed at [facility];[address] | | LAB | | | | [address] [facility];[place], [place] | | | | | | [address] | | | | + + + [...] EXTERNAL | | | | performed at [facility];[address] | uIU/mL | LAB | | | | [address];[place], [place] | | | | | | [address] | | | | + + + [...] | | | (REF) | performed at [facility] | | LAB | | | | [address];[place] | | | | | | [address] | | | | + + + [...] EXTERNAL | | | | performed at [facility];[address] | | LAB | | | | [address];[place] | | | | | | [address] | | | | + + + [...] | | | Alcohol | performed at [facility];[address] | | LAB | | | | [address];[place], [place] | | | | | | [address] | | | | + + + [...] | | | | | ONLY, -COMPUTER ([id number]), | | | | | | web content editor JERAMY TRAORE | | | | | | (4) on 09/19/2013 2:21:45 | | | | | | PM | | | | + + + + + + + + | Specimen | + + | | + + + + + | Narrative | Performed At | + + + | Historically converted procedure from [facility] Epic environment | EXTERNAL LAB | [...]
--- OUTSIDE RECORDS SUMMARY | ~2019-11-09 | XMS | Encounter Summary ---
Demographics + + + | Address | [address] | | | [place] [address] | + + + | Home Phone [...] Author | [facility] | | | and [place] | + + + | Organization | [facility] | | | and [...] Team Providers + +------+ + | Care Road Passenger Firer Name | Role | Phone | + [...] [address] | | | | | [place], [place] | [address] | | | | | [address] | [place] [address] | | | | | [phone] | [phone] | | | | | | | [...] | | | | | [place] [address] | | | | | | [phone] | | | | | | | [...] by | | | | | | [employer] liquid | | | | | [...]
--- OUTSIDE RECORDS SUMMARY | ~2019-11-09 | XMS | Encounter Summary ---
Demographics + + + | Address | [address] | | | [place] [address] | + + + | Home Phone [...] + + + | Author | [facility] | | | and [place] | + + + | Organization | [facility] | | | and [place] [...] Providers + +------+ + | Care Head Soft Sugar Operator Name | Role | Phone | + +------+ + | Hayden Acevedo MD | PCP | | + +------+ + Encounter Details +--------+ + + + + | Date | Type | Department | Care Team | Description | +--------+ + + + + | 01/10/ | Hospital | [facility] | Sveta Calderon, | Acute renal failure, | | 2015 - | Encounter | [facility] | [address] | unspecified acute | | | | CARE [address]LO[address] | [place] [address] | renal failure type | | 01/13/ | | [address] | [phone] | (HCC); Essential | | 2014 | | [place], [place] | | hypertension; | | | | [address] | | Leukocytosis, | | | | [phone] | | unspecified; | | | | [...] 01/13/152054 Date of Service: 01/13/151438 Status: Signed Team Truck Driver: Tico Suarez MD (Physician) Related Notes: Original Note by Tico Suarez MD (Physician) filed at 01/13/15 14 55 [facility] Service: Hospitalist Physician Discharge Summary Pt: Nohemi Espitia AGE/SEX: 54 y.o. female ROOM: [facility]/6608-1 PCP: Naren Nina (General) : 1960 [...] 54 No results for input(s): PHART, PO2ART, LYL6FYA, M8BSIDSF, BEART in the last 168 hours. Recent [...] with you. STOP taking these medications ergocalciferol 18195 UNITS capsule Commonly known as: DRISDOL famotidine [...] 01/12/152053 Date of Service: 01/12/152047 Status: Signed Team Truck Driver: Jackson Mas MD (Physician) [facility] Service: Gastroenterology Progress Note Hospital Day: [...] . Disposition: Code Status: Full Code JACKSON AMS MD 01/12/2015 iryani, Tico Rain MD - 01/12/2015 6:56 PM PDT Progress Notes by Tico Suarez MD at 01/12/151855 Author: Tico Suarez MD Service: Hospitalist Author Type: Physician Filed: 01/12/152101 Date of Service: 01/12/151855 Status: Addendum Team Truck Driver: Tico Suarez MD (Physician) Related Notes: Original Note by Danita Burr MD-R2 (Resident-Y2) filed at 2019 [facility] Service: Hospitalist Progress Note Hospital Day: [...] upper GI endoscopy by Dr. Benitez at [facility] in [place]. She denies alcohol use. Pain level is [...] or chills. Last colo noscopy was at [facility] and was told it was normal. Denies aspirin or an ticoagulant use. Does take ibuprofen on and off. Denies any left precordial chest pain, arm pain, or jaw pain. No previous history of MN. Denies dizziness, lightheadedness, syncope. apparently she was transiently confused per her significant other. She takes Prilos ec b.i.d. for GERD but has not noted any improvement in her symptoms. Workup in the emergency room showed leukocytosis of 16,000 with neutrophils 77%, no bands. Her H and H has remained stable since her last labs in the [facility] that is hemoglobin 12, hemat ocrit [...] Author: OG Granger Service: (none) Author Type: Leading Firefighter Filed: 01/12/15 1435 Date of Service: 01/12/151432 Status: Signed Team Truck Driver: OG Granger (Leading Firefighter) 01/12/15 142 Discharge Planning Evaluation Admitting Diagnosis Gi Bleed Readmission No Living Arrangements Spouse/significant other Support Systems Spouse/significant other;Family members Type of Residence Private residence Independent with ADL's Yes Independent with Mobility No-comment (Ambulates with a walker) Home Care Services No Caregiver after Discharge No Mental Status Oriented Power of Gym Manager No Anticipated Discharge Plan Post Acute Care Needs None at this time Plan communicated to patient/family Yes Resources Financial concerns No Transportation issues No (Friends or [place] Care van) Patient/Family concerns No Prescription Plan [...] None Assistance in transportation: Family, friends or [place] care van Identification of any specific education [...] 0523 Date of Service: 01/12/15520 Status: Signed Team Truck Driver: Demi Westfall RN (Registered Nurse) Patient resting [...] 01/12/15247 Date of Service: 01/12/15246 Status: Signed Team Truck Driver: Demi Westfall RN (Registered Nurse) Patient very [...] 0039 Date of Service: 01/12/1537 Status: Signed Team Truck Driver: Majo Dsouza RN (Registered Nurse) Pt asked [...] 0017 Date of Service: 01/11/152341 Status: Attested Team Truck Driver: DONA QuesadaR2 (Resident-Y2) Cosigner: Contreras Burroughs MD at 1614 Attestation signed by Contreras Burroughs MD at 01/12/151614 I have seen and examined the patient and agree with the resident note. I have directed the care plan [facility] Service: Hospitalist Progress Note Hospital Day: [...] upper GI endoscopy by Dr. Benitez at [facility] in [place]. She denies alcohol use. Pain level is [...] or chills. Last colo noscopy was at [facility] and was told it was normal. Denies aspirin or an ticoagulant use. Does take ibuprofen on and off. Denies any left precordial chest pain, arm pain, or jaw pain. No previous history of MN. Denies dizziness, lightheadedness, syncope. La st night apparently she was transiently confused per her significant other. She takes Prilos ec b.i.d. for GERD but has not noted any improvement in her symptoms. Workup in the emergency room showed leukocytosis of 16,000 with neutrophils 77%, no bands. Her H and H has remained stable since her last labs in the [facility] that is hemoglobin 12, hemat ocrit [...] gastritis ARF (acute renal failure) ([facility]) Abnormal LFTs Leukocytosis, unspecified Metabolic acidosis [...] Note by Shamir Do RN at 01/11/15 7721 Author: Shamir Do RN Service: (none) Author Type: Registered Nurse Filed: 01/11/15 1403 Date of Service: 01/11/15 1401 Status: Signed Team Truck Driver: Shamir Do RN (Registered Nurse) Report called to Marvin Rn in Out Patient Procedures regarding EGD with Dr. Mas. All ques tions addressed. onver david Transaction, Provider Unknown - 01/10/2015 11:08 PM PDT Nurse Progress Note by Batsheva Nagy RN at 01/10/152307 Author: Batsheva Nagy RN Service: (none) Author Type: Registered Nurse Filed: 01/10/152311 Date of Service: 01/10/152307 Status: Signed Team Truck Driver: Batsheva Nagy RN (Registered Nurse) Patient having [...] 1425 Date of Service: 01/10/151424 Status: Signed Team Truck Driver: Shamir Do RN (Registered Nurse) All po medications held per Dr. Mas. Pricing/Signage Team Member. Electronically signed by [facility], [facility] at 01/25/2019 3:03 PM PDTShahla Fong RPH - 01/10/2015 1:39 PM PDTFormatting of this note might be different from t josiah original. Progress Notes by Shahla Kam RPH at 01/10/151338 Author: Shahla Kam RPH Service: (none) Author Type: Pharmacist Filed: 01/10/151338 Date of Service: 01/10/151338 Status: Signed Team Truck Driver: Shahla Kam RPH (Pharmacist) Clinical Pharmacy Note - Renal Dose Adjustment Nohemi Espitia 54 y.o. female Ht Readings from Last 1 Encounters: 01/10/15 1.702 m (5' 7") Wt Readings from Last 1 Encounters: 01/10/15 108.6 kg (239 lb 6.7 oz) CREATININE Date Value Ref Range Status 01/10/2015 2.6* 0.50 - 1.00 mg/dL Final Comment: Testing performed at [facility];[address] [place] [address];[place] [address] CREATININE: 2.6 mg/dL ABNORMAL (01/10/15902) Estimated creatinine [...] | | | | | [place] [address] | | | | | | [phone] | | | | | | | [...] EXTERNAL | | | | performed at [facility];888 | g/dL | LAB | | | | [address];[place] | | | | | | [address] | | | | + + + + + + | Hematocrit, | 30.2 (L)Comment: Testing | 34.0 - 46.0 % | EXTERNAL | | | POC | performed at [facility];[address] | | LAB | | | | [address];[place] | | | | | | [address] | | | | + + + [...] EXTERNAL | | | | performed at [facility], [address] | K/uL | LAB | | | | [address], | | | | | | [place] [address] | | | | + + + + + + | Red Blood | 3.21 (L)Comment: Testing | 3.70 - 5.10 | EXTERNAL | | | Cells | performed at [facility], [address] | M/uL | LAB | | | Counted | [address], | | | | | | [place] [address] | | | | + + + + + + | Hemoglobin | 9.5 (L)Comment: Testing | 11.3 - 15.5 | EXTERNAL | | | | performed at [facility], [address] | g/dL | LAB | | | | [address], | | | | | | [place] [address] | | | | + + + + + + | Hematocrit, | 29.9 (L)Comment: Testing | 34.0 - 46.0 % | EXTERNAL | | | POC | performed at [facility], [address] | | LAB | | | | [address], | | | | | | [place] [address] | | | | + + + + + + | MCV | 93.2Comment: Testing | 80.0 - 100.0 fl | EXTERNAL | | | | performed at [facility], [address] | | LAB | | | | [address], | | | | | | [place] [address] | | | | + + + + + + | MCH | 29.5Comment: Testing | 27.0 - 34.0 pg | EXTERNAL | | | | performed at [facility], [address] | | LAB | | | | [address], | | | | | | [place] [address] | | | | + + + + + + | MCHC | 31.7 (L)Comment: Testing | 32.0 - 35.5 | EXTERNAL | | | | performed at [facility], [address] | g/dL | LAB | | | | [address], | | | | | | [place] [address] | | | | + + + + + + | RDW-CV | 47.7Comment: Testing | 37 - 53 fl | EXTERNAL | | | | performed at [facility], [address] | | LAB | | | | [address], | | | | | | [place] [address] | | | | + + + + + + | Platelet | 172Comment: Testing | 150 - 400 K/uL | EXTERNAL | | | Count | performed at [facility], [address] | | LAB | | | Plasma | [address], | | | | | | [place] [address] | | | | + + + + + + | MPV | 8.6Comment: Testing | fl | EXTERNAL | | | | performed at [facility], [address] | | LAB | | | | [address], | | | | | | [place] [address] | | | | + + + + + + | Differentia | AUTOMATEDComment: | | EXTERNAL | | | l Type | Testing performed at | | LAB | | | | [facility], [address] | | | | | | [place] | | | | | | [address] | | | | + + + + + + | % Segmented | 45.95Comment: Testing | % | EXTERNAL | | | | performed at [facility], [address] | | LAB | | | Neutrophils | [address], | | | | | | [place] [address] | | | | + + + + + + | % | 37.77Comment: Testing | % | EXTERNAL | | | Lymphocytes | performed at [facility], [address] | | LAB | | | | [address], | | | | | | [place] [address] | | | | + + + + + + | % Monocytes | 8.27Comment: Testing | % | EXTERNAL | | | | performed at [facility], [address] | | LAB | | | | [address], | | | | | | [place], [place] [address] | | | | + + + + + + | % | 7.21Comment: Testing | % | EXTERNAL | | | Eosinophils | performed at [facility], [address] | | LAB | | | | [address], | | | | | | [place] [address] | | | | + + + + + + | % Basophils | 0.80Comment: Testing | % | EXTERNAL | | | | performed at [facility], [address] | | LAB | | | | [address], | | | | | | [place] [address] | | | | + + + + + + | Absolute | 2.11Comment: Testing | 1.90 - 7.40 | EXTERNAL | | | Segmented | performed at [facility], [address] | K/uL | LAB | | | Neutrophils | [address], | | | | | | [place] [address] | | | | + + + + + + | Absolute | 1.73Comment: Testing | 1.00 - 3.90 | EXTERNAL | | | Lymphocytes | performed at [facility], [address] | K/uL | LAB | | | | [address], | | | | | | [place] [address] | | | | + + + + + + | Absolute | 0.38Comment: Testing | 0.00 - 0.80 | EXTERNAL | | | Monocytes | performed at [facility], [address] | K/uL | LAB | | | | [address], | | | | | | [place] [address] | | | | + + + + + + | Absolute | 0.33Comment: Testing | 0.00 - 0.50 | EXTERNAL | | | Eosinophils | performed at [facility], [address] | K/uL | LAB | | | | [address], | | | | | | [place] [address] | | | | + + + + + + | Absolute | 0.04Comment: Testing | 0.00 - 0.10 | EXTERNAL | | | Basophils | performed at [facility], [address] | K/uL | LAB | | | | [address], | | | | | | [place] [address] | | | | + + + [...] EXTERNAL | | | | performed at [facility], [address] | | LAB | | | | [facility], | | | | | | [place] [address] | | | | + + + [...] EXTERNAL | | | | performed at [facility], [address] | | LAB | | | | [address], | | | | | | [place] [address] | | | | + + + [...] | | | | | [place] [address] | | | | + + + + + + | K | 3.9Comment: Testing | 3.5 - 4.9 | EXTERNAL | | | | performed at [facility], [address] | mmol/L | LAB | | | | [address], | | | | | | [place] [address] | | | | + + + + + + | Cl | 116 (H)Comment: Testing | 99 - 109 mmol/L | EXTERNAL | | | | performed at [facility], [address] | | LAB | | | | [address], | | | | | | [place] [address] | | | | + + + + + + | CO2 | 24Comment: Testing | 23 - 32 mmol/L | EXTERNAL | | | | performed at [facility], [address] | | LAB | | | | [address], | | | | | | [place] [address] | | | | + + + [...] | | | | | [place] [address] | | | | + + + + + + | BUN | 7 (L)Comment: Testing | 8 - 25 mg/dL | EXTERNAL | | | | performed at [facility], [address] | | LAB | | | | [address], | | | | | | [place] [address] | | | | + + + + + + | Creatinine | 0.58Comment: Testing | 0.50 - 1.00 | EXTERNAL | | | | performed at [facility], [address] | mg/dL | LAB | | | | [address], | | | | | | [place] [address] | | | | + + + + + + | BUN/Creatin | 12Comment: Testing | | EXTERNAL | | | ine Ratio | performed at [facility], [address] | | LAB | | | | [address], | | | | | | [place] [address] | | | | + + + + + + | Calcium | 8.2 (L)Comment: Testing | 8.5 - 10.5 | EXTERNAL | | | | performed at [facility], [address] | mg/dL | LAB | | | | [address], | | | | | | [place] [address] | | | | + + + + + + | Protein, | 5.8 (L)Comment: Testing | 6.3 - 8.2 g/dL | EXTERNAL | | | Total | performed at [facility], [address] | | LAB | | | | [address], | | | | | | [place] [address] | | | | + + + + + + | Albumin | 2.6 (L)Comment: Testing | 3.6 - 5.0 g/dL | EXTERNAL | | | | performed at [facility], [address] | | LAB | | | | [address], | | | | | | [place] [address] | | | | + + + + + + | Globulin | 3.2Comment: Testing | 1.3 - 4.9 g/dL | EXTERNAL | | | | performed at [facility], [address] | | LAB | | | | [address], | | | | | | [place] [address] | | | | + + + + + + | A/G Ratio | 0.8 (L)Comment: Testing | 1.0 - 2.4 | EXTERNAL | | | | performed at [facility], [address] | | LAB | | | | [address], | | | | | | [place] [address] | | | | + + + + + + | Bilirubin | 0.2Comment: Testing | 0.1 - 1.5 mg/dL | EXTERNAL | | | Total | performed at [facility], [address] | | LAB | | | | [address], | | | | | | [place] [address] | | | | + + + + + + | ALP, | 77Comment: Testing | 35 - 115 U/L | EXTERNAL | | | External | performed at [facility], [address] | | LAB | | | [address], | | | | | | [place] [address] | | | | + + + + + + | AST | 96 (H)Comment: Testing | 10 - 45 U/L | EXTERNAL | | | | performed at [facility], [address] | | LAB | | | | [address], | | | | | | [place] [address] | | | | + + + + + + | ALT | 115 (H)Comment: Testing | 10 - 65 U/L | EXTERNAL | | | | performed at [facility], [address] | | LAB | | | | [address], | | | | | | [place] [address] | | | | + + + [...] | | | | | | at [facility], [address] | | | | | | [address], | | | | | | [place] [address] | | | | + + + [...] EXTERNAL | | | | performed at [facility];[address] | g/dL | LAB | | | | [address];[place] | | | | | | [address] | | | | + + + + + + | Hematocrit, | 29.8 (L)Comment: Testing | 34.0 - 46.0 % | EXTERNAL | | | POC | performed at [facility];[address] | | LAB | | | | [address];[place] | | | | | | [address] | | | | + + + [...] EXTERNAL | | | | performed at [facility];[address] | g/dL | LAB | | | | [address];[place] | | | | | | [address] | | | | + + + + + + | Hematocrit, | 29.0 (L)Comment: Testing | 34.0 - 46.0 % | EXTERNAL | | | POC | performed at [facility];[address] | | LAB | | | | [address];[place] | | | | | | [address] | | | | + + + [...] EXTERNAL | | | | performed at [facility];[address] | g/dL | LAB | | | | [address];[place] | | | | | | [address] | | | | + + + + + + | Hematocrit, | 30.1 (L)Comment: Testing | 34.0 - 46.0 % | EXTERNAL | | | POC | performed at [facility];[address] | | LAB | | | | [address];[place] | | | | | | [address] | | | | + + + [...] EXTERNAL | | | | performed at [facility], [address] | K/uL | LAB | | | | [address], | | | | | | [place] [address] | | | | + + + + + + | Red Blood | 3.28 (L)Comment: Testing | 3.70 - 5.10 | EXTERNAL | | | Cells | performed at [facility], [address] | M/uL | LAB | | | Counted | [address], | | | | | | [place] [address] | | | | + + + + + + | Hemoglobin | 9.9 (L)Comment: Testing | 11.3 - 15.5 | EXTERNAL | | | | performed at [facility], [address] | g/dL | LAB | | | | [address], | | | | | | [place] [address] | | | | + + + + + + | Hematocrit, | 30.6 (L)Comment: Testing | 34.0 - 46.0 % | EXTERNAL | | | POC | performed at [facility], [address] | | LAB | | | | [address], | | | | | | [place] [address] | | | | + + + + + + | MCV | 93.3Comment: Testing | 80.0 - 100.0 fl | EXTERNAL | | | | performed at [facility], [address] | | LAB | | | | [address], | | | | | | [place] [address] | | | | + + + + + + | MCH | 30.0Comment: Testing | 27.0 - 34.0 pg | EXTERNAL | | | | performed at [facility], [address] | | LAB | | | | [address], | | | | | | [place] [address] | | | | + + + + + + | MCHC | 32.2Comment: Testing | 32.0 - 35.5 | EXTERNAL | | | | performed at [facility], [address] | g/dL | LAB | | | | [address], | | | | | | [place] [address] | | | | + + + + + + | RDW-CV | 47.7Comment: Testing | 37 - 53 fl | EXTERNAL | | | | performed at [facility], [address] | | LAB | | | | [address], | | | | | | [place] [address] | | | | + + + + + + | Platelet | 158Comment: Testing | 150 - 400 K/uL | EXTERNAL | | | Count | performed at [facility], [address] | | LAB | | | Plasma | [address], | | | | | | [place] [address] | | | | + + + + + + | MPV | 8.9Comment: Testing | fl | EXTERNAL | | | | performed at [facility], [address] | | LAB | | | | [address], | | | | | | [place] [address] | | | | + + + + + + | Differentia | AUTOMATEDComment: | | EXTERNAL | | | l Type | Testing performed at | | LAB | | | | [facility], [address] | | | | | | [place] | | | | | | [address] | | | | + + + + + + | % Segmented | 56.56Comment: Testing | % | EXTERNAL | | | | performed at [facility], [address] | | LAB | | | Neutrophils | [address], | | | | | | [place], [place] [address] | | | | + + + + + + | % | 29.02Comment: Testing | % | EXTERNAL | | | Lymphocytes | performed at [facility], [address] | | LAB | | | | [address], | | | | | | [place] [address] | | | | + + + + + + | % Monocytes | 8.64Comment: Testing | % | EXTERNAL | | | | performed at [facility], [address] | | LAB | | | | [address], | | | | | | [place] [address] | | | | + + + + + + | % | 5.18Comment: Testing | % | EXTERNAL | | | Eosinophils | performed at [facility], [address] | | LAB | | | | [address], | | | | | | [place] [address] | | | | + + + [...] | | | | | [place] [address] | | | | + + + + + + | Absolute | 1.60Comment: Testing | 1.00 - 3.90 | EXTERNAL | | | Lymphocytes | performed at [facility], [address] | K/uL | LAB | | | | [address], | | | | | | [place] [address] | | | | + + + + + + | Absolute | 0.48Comment: Testing | 0.00 - 0.80 | EXTERNAL | | | Monocytes | performed at [facility], [address] | K/uL | LAB | | | | [address], | | | | | | [place] [address] | | | | + + + + + + | Absolute | 0.29Comment: Testing | 0.00 - 0.50 | EXTERNAL | | | Eosinophils | performed at [facility], [address] | K/uL | LAB | | | | [address], | | | | | | [place] [address] | | | | + + + + + + | Absolute | 0.03Comment: Testing | 0.00 - 0.10 | EXTERNAL | | | Basophils | performed at [facility], [address] | K/uL | LAB | | | | [address], | | | | | | [place] [address] | | | | + + + [...] EXTERNAL | | | | performed at [facility], [address] | | LAB | | | | [address], | | | | | | [place] [address] | | | | + + + [...] EXTERNAL | | | | performed at [facility], [address] | | LAB | | | | [address], | | | | | | [place] [address] | | | | + + + [...] | | | | | [place] [address] | | | | + + + + + + | K | 4.0Comment: Testing | 3.5 - 4.9 | EXTERNAL | | | | performed at [facility], [address] | mmol/L | LAB | | | | [address], | | | | | | [place] [address] | | | | + + + + + + | Cl | 117 (H)Comment: Testing | 99 - 109 mmol/L | EXTERNAL | | | | performed at [facility], [address] | | LAB | | | | [address], | | | | | | [place] [address] | | | | + + + + + + | CO2 | 18 (L)Comment: Testing | 23 - 32 mmol/L | EXTERNAL | | | | performed at [facility], [address] | | LAB | | | | [address], | | | | | | [place] [address] | | | | + + + + + + | Anion Gap | 7Comment: Testing | 5 - 20 mmol/L | EXTERNAL | | | | performed at [facility], [address] | | LAB | | | | [address], | | | | | | [place] [address] | | | | + + + + + + | Glucose, | 137 (H)Comment: Testing | 65 - 99 mg/dL | EXTERNAL | | | Fasting | performed at [facility], [address] | | LAB | | | | [address], | | | | | | [place] [address] | | | | + + + + + + | BUN | 8Comment: Testing | 8 - 25 mg/dL | EXTERNAL | | | | performed at [facility], [address] | | LAB | | | | [address], | | | | | | [place] [address] | | | | + + + + + + | Creatinine | 0.57Comment: Testing | 0.50 - 1.00 | EXTERNAL | | | | performed at [facility], [address] | mg/dL | LAB | | | | [address], | | | | | | [place] [address] | | | | + + + + + + | BUN/Creatin | 14Comment: Testing | | EXTERNAL | | | ine Ratio | performed at [facility], [address] | | LAB | | | | [address], | | | | | | [place] [address] | | | | + + + + + + | Calcium | 8.2 (L)Comment: Testing | 8.5 - 10.5 | EXTERNAL | | | | performed at [facility], [address] | mg/dL | LAB | | | | [address], | | | | | | [place] [address] | | | | + + + + + + | Protein, | 5.9 (L)Comment: Testing | 6.3 - 8.2 g/dL | EXTERNAL | | | Total | performed at [facility], [address] | | LAB | | | [address], | | | | | | [place] [address] | | | | + + + + + + | Albumin | 2.5 (L)Comment: Testing | 3.6 - 5.0 g/dL | EXTERNAL | | | | performed at [facility], [address] | | LAB | | | | [address], | | | | | | [place] [address] | | | | + + + + + + | Globulin | 3.4Comment: Testing | 1.3 - 4.9 g/dL | EXTERNAL | | | | performed at [facility], [address] | | LAB | | | | [address], | | | | | | [place] [address] | | | | + + + + + + | A/G Ratio | 0.7 (L)Comment: Testing | 1.0 - 2.4 | EXTERNAL | | | | performed at [facility], [address] | | LAB | | | | [address], | | | | | | [place] [address] | | | | + + + + + + | Bilirubin | 0.3Comment: Testing | 0.1 - 1.5 mg/dL | EXTERNAL | | | Total | performed at [facility], [address] | | LAB | | | | [address], | | | | | | [place] [id number] | | | | + + + + + + | ALP, | 74Comment: Testing | 35 - 115 U/L | EXTERNAL | | | External | performed at [facility], [address] | | LAB | | | | [address], | | | | | | [place] [address] | | | | + + + + + + | AST | 160 (H)Comment: Testing | 10 - 45 U/L | EXTERNAL | | | | performed at [facility], [address] | | LAB | | | | [address], | | | | | | [place] [address] | | | | + + + + + + | ALT | 135 (H)Comment: Testing | 10 - 65 U/L | EXTERNAL | | | | performed at [facility], [address] | | LAB | | | | [address], | | | | | | [place] [address] | | | | + + + [...] | | | | | | at [facility], [address] | | | | | | [facility], | | | | | | [place] [address] | | | | + + + [...] EXTERNAL | | | | performed at [facility];[place] | g/dL | LAB | | | | [address];[place] | | | | | | [address] | | | | + + + + + + | Hematocrit, | 31.4 (L)Comment: Testing | 34.0 - 46.0 % | EXTERNAL | | | POC | performed at [facility];[address] | | LAB | | | | [address];[place] | | | | | | [address] | | | | + + + [...] | | technical preparation was performed by [facility] | | | [address] [address] | | | (Control Engineer: Maximiliano Smith M.D.; [facility]#: [id number]). | | | Diagnostician: Adela Mixon MD [...] EXTERNAL | | | | performed at [facility];888 | g/dL | LAB | | | | [address];[place] | | | | | | [address] | | | | + + + + + + | Hematocrit, | 30.5 (L)Comment: Testing | 34.0 - 46.0 % | EXTERNAL | | | POC | performed at [facility];[address] | | LAB | | | | [address];[place] | | | | | | [address] | | | | + + + [...] | | | | | | at [facility];[address];[place] [address] | | | | + + + + + + | Methampheta | POSITIVE (A)Comment: | | EXTERNAL | | | mine | The cutoff for a | | LAB | | | Screen, UA, | positive mAMP is 1000 | | | | | POC | ng/mL.Testing performed | | | | | | at [facility];[address] | | | | | | [address];[place] [address] | | | | + + + [...] | | | Screen, | performed at [facility];[address] | | | | | UA, POC | [address];[place] | | | | | | [address] | | | | + + + + + + | Barbiturate | NEGATIVEComment: | | EXTERNAL | | | s Screen, | Positive cutoff for | | LAB | | | Urine | SHAUNA = 200 ng/mLTesting | | | | | | performed at [facility];8 | | | | | | [address];[place] | | | | | | [address] | | | | + + + + + + | Benzodiazep | NEGATIVEComment: | | EXTERNAL | | | aura | Positive cutoff for | | LAB | | | Screen, | BENZO = 200 ng/mLTesting | | | | | Urine | performed at [facility];8 | | | | | | [address];[place] | | | | | | [address] | | | | + + + + + + | Cocaine | NEGATIVEComment: | | EXTERNAL | | | | Positive cutoff for | | LAB | | | | MARYAM = 300 ng/mLTesting | | | | | | performed at [facility];[address] | | | | | | [address];[place] | | | | | | [address] | | | | + + + + + + | Methadone | NEGATIVEComment: | | EXTERNAL | | | | Positive cutoff for | | LAB | | | | MTD = 300 ng/mLTesting | | | | | | performed at [facility];[address] | | | | | | [address];[place] | | | | | | [address] | | | | + + + + + + | Opiates | POSITIVE (A)Comment: | | EXTERNAL | | | | Positive cutoff for | | LAB | | | | OPI = 300 ng/mLTesting | | | | | | performed at [facility];[address] | | | | | | [address];[place] | | | | | | [address] | | | | + + + + + + | PCP | NEGATIVEComment: | | EXTERNAL | | | | Positive cutoff for PCP | | LAB | | | | = 25 ng/mLTesting | | | | | | performed at [facility];[address] | | | | | | [address];[place] | | | | | | [address] | | | | + + + [...] | | | | | performed at [facility];[address] | | | | | | [facility];[place], [place] | | | | | | [address] | | | | + + + [...] EXTERNAL | | | | performed at [facility];888 | g/dL | LAB | | | | [address];[place] | | | | | | [address] | | | | + + + + + + | Hematocrit, | 31.2 (L)Comment: Testing | 34.0 - 46.0 % | EXTERNAL | | | POC | performed at [facility];[address] | | LAB | | | | [address];[place] | | | | | | [address] | | | | + + + [...] | | | | | | [place] [address] | | | | + + + + + + | TIBC | 282Comment: Testing | 260 - 490 ug/dL | EXTERNAL | | | | performed at [facility], [address] | | LAB | | | | [address], | | | | | | [place] [address] | | | | + + + + + + | Iron | 12 (L)Comment: Testing | 15 - 50 % | EXTERNAL | | | Saturation | performed at [facility], [address] | | LAB | | | [address], | | | | | | [place] [address] | | | | + + + [...] | | | Reticulocyt | performed at [facility], [address] | | LAB | | | e Count | [address], | | | | | | [place] [address] | | | | + + + [...] EXTERNAL | | | | performed at [facility], [address] | | LAB | | | | [address], | | | | | | [place] [address] | | | | + + + [...] | | | External | performed at [facility], [address] | | LAB | | | | [address], | | | | | | [place] [address] | | | | + + + [...] | | | B-12 | performed at [facility], [address] | pg/mL | LAB | | | | [address], | | | | | | [place] [address] | | | | + + + [...] | | | | | performed at [facility];[address] | | | | | | [address] [facility];[place], [place] | | | | | | [address] | | | | + + + [...] K/uL | LAB | | | | [facility], [address] | | | | | | [place] | | | | | | [address] | | | | + + + + + + | Red Blood | 3.57 (L)Comment: Testing | 3.70 - 5.10 | EXTERNAL | | | Cells | performed at [facility], [address] | M/uL | LAB | | | Counted | [address], | | | | | | [place] [address] | | | | + + + + + + | Hemoglobin | 10.6 (L)Comment: Testing | 11.3 - 15.5 | EXTERNAL | | | | performed at [facility], [address] | g/dL | LAB | | | | [address], | | | | | | [place] [address] | | | | + + + + + + | Hematocrit, | 33.0 (L)Comment: Testing | 34.0 - 46.0 % | EXTERNAL | | | POC | performed at [facility], [address] | | LAB | | | | [address], | | | | | | [place] [address] | | | | + + + + + + | MCV | 92.5Comment: Testing | 80.0 - 100.0 fl | EXTERNAL | | | | performed at [facility], [address] | | LAB | | | | [address], | | | | | | [place] [address] | | | | + + + + + + | MCH | 29.8Comment: Testing | 27.0 - 34.0 pg | EXTERNAL | | | | performed at [facility], [address] | | LAB | | | | [address], | | | | | | [place] [address] | | | | + + + + + + | MCHC | 32.2Comment: Testing | 32.0 - 35.5 | EXTERNAL | | | | performed at [facility], [address] | g/dL | LAB | | | | [address], | | | | | | [place] [address] | | | | + + + + + + | RDW-CV | 46.4Comment: Testing | 37 - 53 fl | EXTERNAL | | | | performed at [facility], [address] | | LAB | | | | [address], | | | | | | [place] [address] | | | | + + + + + + | Platelet | 184Comment: Testing | 150 - 400 K/uL | EXTERNAL | | | Count | performed at [facility], [address] | | LAB | | | Plasma | [address], | | | | | | [place] [address] | | | | + + + + + + | MPV | 8.9Comment: Testing | fl | EXTERNAL | | | | performed at [facility], [address] | | LAB | | | | [address], | | | | | | [place] [address] | | | | + + + + + + | Differentia | AUTOMATEDComment: | | EXTERNAL | | | l Type | Testing performed at | | LAB | | | | [facility], [address] | | | | | | [place] | | | | | | [address] | | | | + + + + + + | % Segmented | 68.68Comment: Testing | % | EXTERNAL | | | | performed at [facility], [address] | | LAB | | | Neutrophils | [address], | | | | | | [place] [address] | | | | + + + + + + | % | 18.26Comment: Testing | % | EXTERNAL | | | Lymphocytes | performed at [facility], [address] | | LAB | | | | [address], | | | | | | [place] [address] | | | | + + + + + + | % Monocytes | 8.60Comment: Testing | % | EXTERNAL | | | | performed at [facility], [address] | | LAB | | | | [address], | | | | | | [place] [address] | | | | + + + + + + | % | 4.07Comment: Testing | % | EXTERNAL | | | Eosinophils | performed at [facility], [address] | | LAB | | | | [address], | | | | | | [place] [address] | | | | + + + + + + | % Basophils | 0.39Comment: Testing | % | EXTERNAL | | | | performed at [facility], [address] | | LAB | | | | [address], | | | | | | [place] [address] | | | | + + + + + + | Absolute | 7.84 (H)Comment: Testing | 1.90 - 7.40 | EXTERNAL | | | Segmented | performed at [facility], [address] | K/uL | LAB | | | Neutrophils | [address], | | | | | | [place] [address] | | | | + + + + + + | Absolute | 2.08Comment: Testing | 1.00 - 3.90 | EXTERNAL | | | Lymphocytes | performed at [facility], [address] | K/uL | LAB | | | | [address], | | | | | | [place] [address] | | | | + + + + + + | Absolute | 0.98 (H)Comment: Testing | 0.00 - 0.80 | EXTERNAL | | | Monocytes | performed at [facility], [address] | K/uL | LAB | | | | [address], | | | | | | [place] [address] | | | | + + + + + + | Absolute | 0.47Comment: Testing | 0.00 - 0.50 | EXTERNAL | | | Eosinophils | performed at [facility], [address] | K/uL | LAB | | | | [address], | | | | | | [place] [address] | | | | + + + + + + | Absolute | 0.05Comment: Testing | 0.00 - 0.10 | EXTERNAL | | | Basophils | performed at [facility], [address] | K/uL | LAB | | | | [address], | | | | | | [place] [address] | | | | + + + [...] EXTERNAL | | | | performed at [facility];8 | | LAB | | | | [address];[place], [place] | | | | | | [address] | | | | + + + [...] EXTERNAL | | | | performed at [facility];[address] | | LAB | | | | [address];[place], [place] | | | | | | [address] | | | | + + + [...] + + | Hemoglobin | 5.5Comment: The [place] | 4.0 - 6.0 % | EXTERNAL [...] | | | | | performed at [facility], [address] | | | | | | [address], | | | | | | [place] [address] | | | | + + + [...] | | | | | performed at [facility], [address] | | | | | | [facility], | | | | | | [place] [address] | | | | + + + [...] EXTERNAL | | | | performed at [facility];[address] | mmol/L | LAB | | | | [address];[place] | | | | | | [address] | | | | + + + + + + | K | 3.7Comment: Testing | 3.5 - 4.9 | EXTERNAL | | | | performed at [facility];[address] | mmol/L | LAB | | | | [address];[place] | | | | | | [address] | | | | + + + + + + | Cl | 112 (H)Comment: Testing | 99 - 109 mmol/L | EXTERNAL | | | | performed at [facility];[address] | | LAB | | | | [address];[place] | | | | | | [address] | | | | + + + + + + | CO2 | 22 (L)Comment: Testing | 23 - 32 mmol/L | EXTERNAL | | | | performed at [facility];[address] | | LAB | | | | [address];[place] | | | | | | [address] | | | | + + + + + + | Anion Gap | 11Comment: Testing | 5 - 20 mmol/L | EXTERNAL | | | | performed at [facility];[address] | | LAB | | | | [address];[place] | | | | | | [address] | | | | + + + + + + | Glucose, | 92Comment: Testing | 65 - 99 mg/dL | EXTERNAL | | | Fasting | performed at [facility];[address] | | LAB | | | | [address];[place] | | | | | | [address] | | | | + + + + + + | BUN | 18Comment: Testing | 8 - 25 mg/dL | EXTERNAL | | | | performed at [facility];[address] | | LAB | | | | [address];[place] | | | | | | [address] | | | | + + + + + + | Creatinine | 0.97Comment: Testing | 0.50 - 1.00 | EXTERNAL | | | | performed at [facility];888 | mg/dL | LAB | | | | [address];[place] | | | | | | [address] | | | | + + + + + + | BUN/Creatin | 19Comment: Testing | | EXTERNAL | | | ine Ratio | performed at [facility];[address] | | LAB | | | | [address];[place] | | | | | | [address] | | | | + + + + + + | Calcium | 7.7 (L)Comment: Testing | 8.5 - 10.5 | EXTERNAL | | | | performed at [facility];888 | mg/dL | LAB | | | | [address];[place] | | | | | | [address] | | | | + + + + + + | Protein, | 7.2Comment: Testing | 6.3 - 8.2 g/dL | EXTERNAL | | | Total | performed at [facility];[address] | | LAB | | | | [address];[place] | | | | | | [address] | | | | + + + + + + | Albumin | 2.7 (L)Comment: Testing | 3.6 - 5.0 g/dL | EXTERNAL | | | | performed at [facility];[address] | | LAB | | | | [address];[place] | | | | | | [address] | | | | + + + + + + | Globulin | 4.5Comment: Testing | 1.3 - 4.9 g/dL | EXTERNAL | | | | performed at [facility];[address] | | LAB | | | | [address];[place] | | | | | | [address] | | | | + + + + + + | A/G Ratio | 0.6 (L)Comment: Testing | 1.0 - 2.4 | EXTERNAL | | | | performed at [facility];[address] | | LAB | | | | [address];[place] | | | | | | [address] | | | | + + + + + + | Bilirubin | 1.0Comment: Testing | 0.1 - 1.5 mg/dL | EXTERNAL | | | Total | performed at [facility];[address] | | LAB | | | | [address];[place] | | | | | | [address] | | | | + + + + + + | ALP, | 100Comment: Testing | 35 - 115 U/L | EXTERNAL | | | External | performed at [facility];[address] | | LAB | | | | [address];[place] | | | | | | [address] | | | | + + + + + + | AST | 311 (H)Comment: Testing | 10 - 45 U/L | EXTERNAL | | | | performed at [facility];[address] | | LAB | | | | [address];[place] | | | | | | [address] | | | | + + + + + + | ALT | 236 (H)Comment: Testing | 10 - 65 U/L | EXTERNAL | | | | performed at [facility];[address] | | LAB | | | | [address];[place] | | | | | | [address] | | | | + + + [...] | | | | | | at [facility];[address];[place] [address] | | | | + + + [...] EXTERNAL | | | | performed at [facility];888 | g/dL | LAB | | | | [address];[place] | | | | | | [address] | | | | + + + + + + | Hematocrit, | 32.4 (L)Comment: Testing | 34.0 - 46.0 % | EXTERNAL | | | POC | performed at [facility];[address] | | LAB | | | | [address];[place] | | | | | | [address] | | | | + + + [...] | EXTERNAL LAB | | performed at [facility];[address] [place] [address];[place] [address] 027 NAP1 BI | | | 027 NAP1 BI PRESUMPTIVE NEGATIVE | | | Detection of 027 NAP1 BI strains of C. difficile is presumptive and | | | for epidemiological purposes and not intended to guide or monitor | | | treatment for C. difficile infections. Testing performed at [facility];888 | | | [facility];[place] [address] | | + + + + +---------+ [...] At | + + + | NOHEMI ESPIITA BLADDER 01/10/2015 7:57 PM HISTORY: 54 | [...] | | | visualized. Electronically signed by oMnroe Gonzalez DO on | | | 01/10/2015 [...] EXTERNAL | | | | performed at [facility];888 | g/dL | LAB | | | | [facility];[place], [place] | | | | | | [address] | | | | + + + + + + | Hematocrit, | 34.4Comment: Testing | 34.0 - 46.0 % | EXTERNAL | | | POC | performed at [facility];[address] | | LAB | | | | [address];[place], [place] | | | | | | [address] | | | | + + + [...] LAB | | | | performed at [facility], [address] | | | | | | [address], | | | | | | [place] [address] | | | | + + + [...] | | | | | [place] [address] | | | | + + + + + + | Clarity | CLEARComment: Testing | | EXTERNAL | | | | performed at [facility], [address] | | LAB | | | | [address], | | | | | | [place] [address] | | | | + + + + + + | Specific | 1.017Comment: Testing | 1.002 - 1.030 | EXTERNAL | | | Prosperity, | performed at [facility], [address] | | LAB | | | Urine | [address], | | | | | | [place] [address] | | | | + + + + + + | Leukocyte | NEGATIVEComment: Testing | | EXTERNAL | | | Esterase, | performed at [facility], [address] | | LAB | | | Urine | [address], | | | | | | [place] [address] | | | | + + + + + + | Nitrite, | NEGATIVEComment: Testing | | EXTERNAL | | | Urine | performed at [facility], [address] | | LAB | | | | [address], | | | | | | [place] [address] | | | | + + + + + + | Urobilinoge | 0.2Comment: Testing | mg/dL | EXTERNAL | | | n, Urine | performed at [facility], [address] | | LAB | | | | [address], | | | | | | [place] [address] | | | | + + + + + + | Protein, | NEGATIVEComment: Testing | mg/dL | EXTERNAL | | | Urine | performed at [facility], [address] | | LAB | | | | [address], | | | | | | [place] [address] | | | | + + + + + + | pH, Urine | 6.0Comment: Testing | 5.0 - 8.0 | EXTERNAL | | | | performed at [facility], [address] | | LAB | | | | [address], | | | | | | [place] [address] | | | | + + + + + + | Blood, | MODERATE (A)Comment: | | EXTERNAL | | | Urine | Testing performed at | | LAB | | | | [facility], [address] [facility] | | | | | | [place] | | | | | | [address] | | | | + + + + + + | Ketones | NEGATIVEComment: Testing | mg/dL | EXTERNAL | | | | performed at [facility], [address] | | LAB | | | | [address], | | | | | | [place] [address] | | | | + + + + + + | Bilirubin, | MODERATE (A)Comment: | | EXTERNAL | | | Urine | Testing performed at | | LAB | | | | [facility], [address] | | | | | | [place] | | | | | | [address] | | | | + + + + + + | Glucose, | NEGATIVEComment: Testing | mg/dL | EXTERNAL | | | Urine | performed at [facility], [address] | | LAB | | | | [address], | | | | | | [place] [address] | | | | + + + [...] | | | | | [place], [place] [address] | | | | + + + + + + | RBC, UA | 1-5Comment: Testing | 0 - 5 /hpf | EXTERNAL | | | | performed at [facility], [address] | | LAB | | | | [address], | | | | | | [place] [address] | | | | + + + + + + | Epithelial | 16-25Comment: Testing | /lpf | EXTERNAL | | | Cells | performed at [facility], [address] | | LAB | | | | [address], | | | | | | [place] [address] | | | | + + + + + + | Bacteria, | 1+ (A)Comment: Testing | | EXTERNAL | | | UA | performed at [facility], [address] | | LAB | | | | [address], | | | | | | [place] [address] | | | | + + + + + + | HYALINE | 0-2Comment: Testing | | EXTERNAL | | | CASTS UA | performed at [facility], [address] | | LAB | | | | [address], | | | | | | [place] [address] | | | | + + + [...] | | LAB | | | | Blvd;[place] [address] | | | | + + + + + + | Antibody | NEGATIVE | | EXTERNAL | | | Screen | | | LAB | | + + + + + + | Antibody | Testing performed at | | EXTERNAL | | | Screen | [facility];[address] | | LAB | | | [address];[place] [address] | | | | + + + + + + | BB BAND | [id number] | | EXTERNAL | | | | | | LAB | | + + + + + + | BB BAND | Testing performed at | | EXTERNAL | | | | [facility];[address] | | LAB | | | | [address];[place] [address] | | | | + + + [...] WORKUP | | | Testing performed at [facility], [address] [facility] | | [place] [address] | | + + + + +---------+ [...] | | | Urine | performed at [facility], [address] | | LAB | | | Random | [address], | | | | | | [place] [address] | | | | + + + [...] EXTERNAL | | | | performed at [facility];[address] | | LAB | | | | [address];[place] | | | | | | [address] | | | | + + + + + + | RBC, UA | 0-2Comment: Testing | 0 - 5 /hpf | EXTERNAL | | | | performed at [facility];[address] | | LAB | | | | [address];[place] | | | | | | [address] | | | | + + + + + + | Epithelial | 50-100Comment: Testing | /lpf | EXTERNAL | | | Cells | performed at [facility];[address] | | LAB | | | | [address];[place] | | | | | | [address] | | | | + + + + + + | Bacteria, | 3+ (A)Comment: Testing | | EXTERNAL | | | UA | performed at [facility];[address] | | LAB | | | | [address];[place] | | | | | | [address] | | | | + + + + + + | CASTS | 16-25Comment: FINE | /lpf | EXTERNAL | | | | GRANULARTesting | | LAB | | | | performed at [facility];[address] | | | | | | [address];[place] | | | | | | [address] | | | | + + + [...] | | | | | performed at [facility] | | | | | | [facility];[place], [place] | | | | | | [address] | | | | + + + [...] K/uL | LAB | | | | [facility];[address];[place] [address] | | | | + + + + + + | Red Blood | 4.21Comment: Testing | 3.70 - 5.10 | EXTERNAL | | | Cells | performed at [facility];[address] | M/uL | LAB | | | Counted | [address];[place] | | | | | | [address] | | | | + + + + + + | Hemoglobin | 12.4Comment: Testing | 11.3 - 15.5 | EXTERNAL | | | | performed at [facility];888 | g/dL | LAB | | | | [address];[place] | | | | | | [address] | | | | + + + + + + | Hematocrit, | 37.6Comment: Testing | 34.0 - 46.0 % | EXTERNAL | | | POC | performed at [facility];[address] | | LAB | | | | [address];[place] | | | | | | [address] | | | | + + + + + + | MCV | 89.4Comment: Testing | 80.0 - 100.0 fl | EXTERNAL | | | | performed at [facility];[address] | | LAB | | | | [address];[place] | | | | | | [address] | | | | + + + + + + | MCH | 29.4Comment: Testing | 27.0 - 34.0 pg | EXTERNAL | | | | performed at [facility] [place];[address] | | LAB | | | | [address];[place] | | | | | | [address] | | | | + + + + + + | MCHC | 32.9Comment: Testing | 32.0 - 35.5 | EXTERNAL | | | | performed at [facility] [place] | g/dL | LAB | | | | [address];[place] | | | | | | [address] | | | | + + + + + + | RDW-CV | 46.4Comment: Testing | 37 - 53 fl | EXTERNAL | | | | performed at [facility] [place];[address] | | LAB | | | | [address];[place] | | | | | | [address] | | | | + + + + + + | Platelet | 251Comment: Testing | 150 - 400 K/uL | EXTERNAL | | | Count | performed at [facility] [place];[address] | | LAB | | | Plasma | [address];[place] | | | | | | [address] | | | | + + + + + + | MPV | 8.3Comment: Testing | fl | EXTERNAL | | | | performed at [facility] [place];[address] | | LAB | | | | [address];[place] | | | | | | [address] | | | | + + + + + + | Differentia | AUTOMATEDComment: | | EXTERNAL | | | l Type | Testing performed at | | LAB | | | | [facility] [place];[address];[place] [address] | | | | + + + + + + | % Segmented | 77.07Comment: Testing | % | EXTERNAL | | | | performed at [facility] [place];[address] | | LAB | | | Neutrophils | [address];[place] | | | | | | [address] | | | | + + + + + + | % | 11.95Comment: Testing | % | EXTERNAL | | | Lymphocytes | performed at [facility] [place];[address] | | LAB | | | | [address];[place] | | | | | | [address] | | | | + + + + + + | % Monocytes | 8.49Comment: Testing | % | EXTERNAL | | | | performed at [facility] [place];[address] | | LAB | | | | [address];[place] | | | | | | [address] | | | | + + + + + + | % | 1.48Comment: Testing | % | EXTERNAL | | | Eosinophils | performed at [facility] [place];[address] | | LAB | | | | [address];[place] | | | | | | [address] | | | | + + + + + + | % Basophils | 1.01Comment: Testing | % | EXTERNAL | | | | performed at [facility] [place];[address] | | LAB | | | | [address];[place] | | | | | | [address] | | | | + + + + + + | Absolute | 12.59 (H)Comment: | 1.90 - 7.40 | EXTERNAL | | | Segmented | Testing performed at | K/uL | LAB | | | Neutrophils | [facility] [place];[address];[place] [address] | | | | + + + + + + | Absolute | 1.95Comment: Testing | 1.00 - 3.90 | EXTERNAL | | | Lymphocytes | performed at [facility] [place];[address] | K/uL | LAB | | | | [address];[place] | | | | | | [address] | | | | + + + + + + | Absolute | 1.39 (H)Comment: Testing | 0.00 - 0.80 | EXTERNAL | | | Monocytes | performed at [facility] [place];[address] | K/uL | LAB | | | | [address];[place] | | | | | | [address] | | | | + + + + + + | Absolute | 0.24Comment: Testing | 0.00 - 0.50 | EXTERNAL | | | Eosinophils | performed at [facility] [place];[address] | K/uL | LAB | | | | [address];[place] | | | | | | [address] | | | | + + + + + + | Absolute | 0.17 (H)Comment: Testing | 0.00 - 0.10 | EXTERNAL | | | Basophils | performed at [facility];888 | K/uL | LAB | | | | [address];[place], [place] | | | | | | [address] | | | | + + + [...] EXTERNAL | | | | performed at [facility] | | LAB | | | | [address];[place], [place] | | | | | | [address] | | | | + + + [...] EXTERNAL | | | | performed at [facility];888 | | LAB | | | | [address] [facility];[place], [place] | | | | | | [address] | | | | + + + [...] EXTERNAL | | | | performed at [facility];888 | | LAB | | | | [address];[place], [place] | | | | | | [address] | | | | + + + [...] EXTERNAL | | | | performed at [facility];888 | | LAB | | | | [address];[place], [place] | | | | | | [address] | | | | + + + [...] EXTERNAL | | | | performed at [facility];888 | mmol/L | LAB | | | | [address];[place] | | | | | | [address] | | | | + + + + + + | K | 4.1Comment: Testing | 3.5 - 4.9 | EXTERNAL | | | | performed at [facility];888 | mmol/L | LAB | | | | [address];[place] | | | | | | [address] | | | | + + + + + + | Cl | 109Comment: Testing | 99 - 109 mmol/L | EXTERNAL | | | | performed at [facility];888 | | LAB | | | | [address];[place] | | | | | | [address] | | | | + + + + + + | CO2 | 19 (L)Comment: Testing | 23 - 32 mmol/L | EXTERNAL | | | | performed at [facility];888 | | LAB | | | | [address];[place] | | | | | | [address] | | | | + + + + + + | Anion Gap | 16Comment: Testing | 5 - 20 mmol/L | EXTERNAL | | | | performed at [facility];888 | | LAB | | | | [address];[place] | | | | | | [address] | | | | + + + + + + | Glucose, | 174 (H)Comment: Testing | 65 - 99 mg/dL | EXTERNAL | | | Fasting | performed at [facility];888 | | LAB | | | | [address];[place] | | | | | | [address] | | | | + + + + + + | BUN | 42 (H)Comment: Testing | 8 - 25 mg/dL | EXTERNAL | | | | performed at [facility];888 | | LAB | | | | [address];[place] | | | | | | [address] | | | | + + + + + + | Creatinine | 2.6 (H)Comment: Testing | 0.50 - 1.00 | EXTERNAL | | | | performed at [facility];888 | mg/dL | LAB | | | | [address];[place] | | | | | | [address] | | | | + + + + + + | BUN/Creatin | 16Comment: Testing | | EXTERNAL | | | ine Ratio | performed at [facility];888 | | LAB | | | | [address];[place] | | | | | | [address] | | | | + + + + + + | Calcium | 9.0Comment: Testing | 8.5 - 10.5 | EXTERNAL | | | | performed at [facility];888 | mg/dL | LAB | | | | [address];[place] | | | | | | [address] | | | | + + + + + + | Protein, | 8.6 (H)Comment: Testing | 6.3 - 8.2 g/dL | EXTERNAL | | | Total | performed at [facility];888 | | LAB | | | | [address];[place] | | | | | | [address] | | | | + + + + + + | Albumin | 3.4 (L)Comment: Testing | 3.6 - 5.0 g/dL | EXTERNAL | | | | performed at [facility];888 | | LAB | | | | [address];[place] | | | | | | [address] | | | | + + + + + + | Globulin | 5.2 (H)Comment: Testing | 1.3 - 4.9 g/dL | EXTERNAL | | | | performed at [facility];888 | | LAB | | | | [address];[place] | | | | | | [address] | | | | + + + + + + | A/G Ratio | 0.6 (L)Comment: Testing | 1.0 - 2.4 | EXTERNAL | | | | performed at [facility];888 | | LAB | | | | [address];[place] | | | | | | [address] | | | | + + + + + + | Bilirubin | 0.5Comment: Testing | 0.1 - 1.5 mg/dL | EXTERNAL | | | Total | performed at [facility];888 | | LAB | | | | [address];[place] | | | | | | [address] | | | | + + + + + + | ALP, | 127 (H)Comment: Testing | 35 - 115 U/L | EXTERNAL | | | External | performed at [facility];888 | | LAB | | | | [address];[place] | | | | | | [address] | | | | + + + + + + | AST | 382 (H)Comment: Testing | 10 - 45 U/L | EXTERNAL | | | | performed at [facility];888 | | LAB | | | | [address];[place] | | | | | | [address] | | | | + + + + + + | ALT | 315 (H)Comment: Testing | 10 - 65 U/L | EXTERNAL | | | | performed at [facility];888 | | LAB | | | | [address];[place] | | | | | | [address] | | | | + + + [...] | | | | | | at [facility];[address] | | | | | | [address];[place] [address] | | | | + + + [...]
--- OUTSIDE RECORDS SUMMARY | ~2019-11-09 | XMS | Encounter Summary ---
Demographics + + + | Address | [address] | | | [place] [address] | + + + | Home Phone | | + + + | Preferred Language | Unknown | + + + | Marital Status | Single | + + + | Amish Affiliation | [id number] | + + + | Race | Unknown | + + + | Ethnic Group | Unknown | + + + Author + + + | Author | [facility] | | | and [place] | + + + | Organization | [facility] | | [...] Team Providers + +------+ + | Care Acetylene Torch Burner Name | Role | Phone | + +------+ + | Hayden Acevedo MD | PCP | | + +------+ + Encounter Details +--------+ + + + + | Date | Type | Department | Care Team | Description | +--------+ + + + + | 09/14/ | Emergency | [facility] | Maximiliano Harrison, | Acute bronchitis | | 2015 | | MEDICAL CENTER | [address] | with COPD ([facility]); | | | | EMERGENCY CENTER | [place] [address] | Acute back pain | | | | [address] | [phone] | | | | | [place], [place] | | | | | | [address] | | | | | | [phone] | | | +--------+ + + + [...] | | | | | [place] [address] | | | | | | [phone] | | | | | | | [...]
--- OUTSIDE RECORDS SUMMARY | ~2019-11-09 | XMS | Encounter Summary ---
Demographics + + + | Address | [address] | | | [place] [address] | + + + | Home Phone [...] | [facility] | | | and [place] | + + + | Organization | [facility] | | [...] Team Providers + +------+ + | Care Starter Mechanic Name | Role | Phone | [...] [address] | | | | | [place], [place] | [address] | | | | | [address] | [place] [address] | | | | | [phone] | [phone] | | | | | | | [...] | | | | | [place] [address] | | | | | | [phone] | | | | | | | [...] + + + + | HCV | [id number] (A)Comment: | [iU]/mL | EXTERNAL | | [...]
--- OUTSIDE RECORDS SUMMARY | ~2019-11-09 | XMS | Encounter Summary ---
Demographics + + + | Address | [address] | | | [place] [address] | + + + | Home Phone [...] + + | Author | [facility] | | | and [place] | + + + | Organization | [facility] | | | and [place] [...] Team Providers + +------+ + | Care Daycare Assistant Name | Role | Phone | + +------+ + | Naren Nina PA-C | PCP | | + +------+ + Reason for Visit +--------+ + | Reason | Comments | +--------+ + | Other | | +--------+ + Encounter Details +--------+ + + + + | Date | Type | Department | Care Team | Description | +--------+ + + + + | 10/30/ | Telephone | [facility] | Jose Gonzalez DO | Other | | 2020 | | NEUROSURGERY [address] | [address] | | | | | [address] | [address] | | | | | [place], [place] | [place] [address] | | | | | [address] | [phone] | | | | | [phone] | | | +--------+ + + + [...] | | | | | [place] [address] | | | | | | [phone] | | | | | | | | +--------+---------+ + + + documented as of this encounter Visit Diagnoses Not on filedocumented in this encounter"
--- OUTSIDE RECORDS SUMMARY | ~2019-11-09 | XMS | Encounter Summary ---
Demographics + + + | Address | [address] | | | [place] [address] | + + + | Home Phone [...] + | Author | [facility] | | | and [place] | + + + | Organization | [facility] | | [...] Providers + +------+ + | Care Window Glazier Name | Role | Phone | + +------+ + | Hayden Acevedo MD | PCP | | + +------+ + Encounter Details +--------+ + + + + | Date | Type | Department | Care Team | Description | +--------+ + + + + | 09/14/ | Emergency | [facility] | Maximiliano Harrison, | Acute bronchitis | | 2015 | | MEDICAL CENTER | [address] | with COPD ([facility]); | | | | EMERGENCY CENTER | [place] [address] | Acute back pain | | | | [address] | [phone] | | | | | [place], [place] | | | | | | [address] | | | | | | [phone] | | | +--------+ + + + [...] | | | | | [place] [address] | | | | | | [phone] | | | | | | | [...]
--- OUTSIDE RECORDS SUMMARY | ~2019-11-09 | XMS | Encounter Summary ---
Demographics + + + | Address | [address] | | | [place] [address] | + + + | Home Phone [...] Author | [facility] | | | and [place] | + + + | Organization | [facility] | [...] Providers + +------+ + | Care Manager Infrastructure Name | Role | Phone | + +------+ + | Naren Nina PA-C | PCP | | + +------+ + Encounter Details +--------+ + + + + | Date | Type | Department | Care Team | Description | +--------+ + + + + | 01/07/ | Orders Only | [facility] | Provider, | | | 2019 | | SYSTEM GENERIC OP | [address] | | | | | [address] | [address] | | | | | [address] [place], [place] | [place] [address] | | | | | [address] | | | | | | [phone] | | | +--------+ + + + [...] | | | | | [place] [address] | | | | | | [phone] | | | | | | | | +--------+---------+ + + + documented as of this encounter Visit Diagnoses Not on filedocumented in this encounter"
--- OUTSIDE RECORDS SUMMARY | ~2019-11-09 | XMS | Encounter Summary ---
Demographics + + + | Address | [address] | | | [place] [address] | + + + | Home Phone | | + + + | Preferred Language | Unknown | + + + | Marital Status | Single | + + + | Amish Affiliation | 1009 | + + + | Race | Unknown | + + + | Ethnic Group | Unknown | + + + Author + + + | Author | [facility] | | | and [place] | + + + | Organization | [facility] | [...] Providers + +------+ + | Care Field Liability Generalist Name | Role | Phone | + [...] | | | | EMERGENCY CENTER | [place], [place] | | | | | [address] | [address] | | | | | [place], [place] | [phone] | | | | | [address] | | | | | | [phone] | | | +--------+ + + + [...] | | | | | | [place] [address] | | | | | | [phone] | | | | | | | | +--------+---------+ + + + documented as of this encounter Visit Diagnoses + + | Diagnosis | + + | Backache, unspecified | + + documented in this encounter"
--- OUTSIDE RECORDS SUMMARY | ~2019-11-09 | XMS | Encounter Summary ---
Demographics + + + | Address | [address] | | | [place] [address] | + + + | Home Phone [...] Author | [facility] | | | and [place] | + + + | Organization | [facility] | | | and [place] | [...] Team Providers + +------+ + | Care Face Man Name | Role | Phone | + +------+ + | Hayden Acevedo MD | PCP | | + +------+ + Encounter Details +--------+ + + + + | Date | Type | Department | Care Team | Description | +--------+ + + + + | 12/24/ | Hospital | [facility] | Mihsa Todd, | Mixed incontinence | | 2013 - | Encounter | CENTER SURGICAL [address] | [address] | urge and stress | | | | [address] | [address] [place], | (male)(female); | | 12/26/ | | [place], [place] | [place] [address] | Hypothyroid; HTN | | 2013 | | [address] | [phone] | (hypertension); | | | | [phone] | | Anxiety; | | | | [...] Date of Service: 12/26/13 1043 Status: Signed Lens Cutter: Misha Todd MD (Physician) [facility] Service: Obstetrics & Gynecology Discharge [...] REPAIR); Surgeon: Misha Todd MD; Locatio n: [facility]; Service: FILTRATION PLANT OPERATOR; Laterality: N/A; Anterior portion was not completed Bladder suspension 12/24/2013 Procedure: BLADDER SUSPENSION - TVT; Surgeon: Misha Todd MD; Location: [facility]; Service: FILTRATION PLANT OPERATOR; Laterality: N/A; TVT exact Cystoplasty 12/24/2013 Procedure: CYSTOSCOPY - HYDRODISTENTION OF BLADDER; Surgeon: Misha Todd MD; Locati on: [facility]; Service: FILTRATION PLANT OPERATOR; Laterality: N/A; 70 degree scope. Indigo Emilia dye a vailable to Anesthesiologist Enterocele repair 12/24/2013 Procedure: ENTEROCELE RPR; Surgeon: Misha Todd MD; Location: [facility]; Servic e: FILTRATION PLANT OPERATOR; Laterality: N/A; No Known Allergies Prescriptions prior [...] pr ocedure. 2 enema 0 ergocalciferol (DRISDOL) 58616 UNITS capsule Take 1 capsule by mouth [...] file. Follow up: Misha Todd MD [address] [facility] 200 [facility] [address] In 1 month Medication List As of [...] diagnoses: Loss Of Bladder Control, Painful Sexual [place], Fallen Bladder, Saggin g Of Female Genital [...] are the prescriptions that you need to burr picker. You may get these medications from [...] 12/26/131124 Date of Service: 12/26/131124 Status: Signed Lens Cutter: Sarah Birch RN (Registered Nurse) Discharge instructions [...] 111 Date of Service: 12/25/131109 Status: Signed Lens Cutter: JULIO Ocampo (Massage Therapist) 12/25/13 1100 MT Last Visit MT Received On 12/25/13 MT Therapy Visit Refused onver david Rodríguez, Provider Unknown - 12/25/2013 8:09 AM PDT Case Management by OG Mae at 12/25/13 0809 Author: OG Mae Service: (none) Author Type: Guest Service Supervisor Filed: 12/25/13 0810 Date of Service: 12/25/13 0809 Status: Signed Lens Cutter: OG Mae (Guest Service Supervisor) CM met with pt for discharge [...] B | | | | | | [place] [address] | | | | | | [phone] | | | | | | | [...] | | | | | [place] [address] | | | | + + + + + + | Red Blood | 3.87Comment: Testing | 3.70 - 5.10 | EXTERNAL | | | Cells | performed at [facility], [address] | M/uL | LAB | | | Counted | [address], | | | | | | [place] [address] | | | | + + + + + + | Hemoglobin | 11.8Comment: Testing | 11.3 - 15.5 | EXTERNAL | | | | performed at [facility], [address] | g/dL | LAB | | | | [address], | | | | | | [place], [place] [address] | | | | + + + + + + | Hematocrit, | 35.8Comment: Testing | 34.0 - 46.0 % | EXTERNAL | | | POC | performed at [facility], [address] | | LAB | | | | [address], | | | | | | [place] [address] | | | | + + + + + + | MCV | 92.5Comment: Testing | 80.0 - 100.0 fl | EXTERNAL | | | | performed at [facility], [address] | | LAB | | | | [address], | | | | | | [place] [address] | | | | + + + + + + | MCH | 30.5Comment: Testing | 27.0 - 34.0 pg | EXTERNAL | | | | performed at [facility], [address] | | LAB | | | | [address], | | | | | | [place] [address] | | | | + + + + + + | MCHC | 32.9Comment: Testing | 32.0 - 35.5 | EXTERNAL | | | | performed at [facility], [address] | g/dL | LAB | | | | [address], | | | | | | [place] [address] | | | | + + + + + + | RDW-CV | 49.9Comment: Testing | 37 - 53 fl | EXTERNAL | | | | performed at [facility], [address] | | LAB | | | | [address], | | | | | | [place] [address] | | | | + + + + + + | Platelet | 208Comment: Testing | 150 - 400 K/uL | EXTERNAL | | | Count | performed at [facility], [address] | | LAB | | | Plasma | [address], | | | | | | [place] [address] | | | | + + + + + + | MPV | 8.4Comment: Testing | fl | EXTERNAL | | | | performed at [facility], [address] | | LAB | | | | [address], | | | | | | [place] [address] | | | | + + + [...] | | | | | [place] [address] | | | | + + + + + + | % Segmented | 86.6Comment: Testing | % | EXTERNAL | | | | performed at [facility], [address] | | LAB | | | Neutrophils | [address], | | | | | | [place] [address] | | | | + + + + + + | % | 9.0Comment: Testing | % | EXTERNAL | | | Lymphocytes | performed at [facility], [address] | | LAB | | | | [address], | | | | | | [place] [address] | | | | + + + + + + | % Monocytes | 4.3Comment: Testing | % | EXTERNAL | | | | performed at [facility], [address] | | LAB | | | | [address], | | | | | | [place] [address] | | | | + + + + + + | % | 0.0Comment: Testing | % | EXTERNAL | | | Eosinophils | performed at [facility], [address] | | LAB | | | | [address], | | | | | | [place] [address] | | | | + + + + + + | % Basophils | 0.1Comment: Testing | % | EXTERNAL | | | | performed at [facility], [address] | | LAB | | | | [address], | | | | | | [place] [address] | | | | + + + + + + | Absolute | 9.0 (H)Comment: Testing | 1.9 - 7.4 K/uL | EXTERNAL | | | Segmented | performed at [facility], [address] | | LAB | | | Neutrophils | [address], | | | | | | [place] [address] | | | | + + + + + + | Absolute | 0.9 (L)Comment: Testing | 1.0 - 3.9 K/uL | EXTERNAL | | | Lymphocytes | performed at [facility], [address] | | LAB | | | | [address], | | | | | | [place] [address] | | | | + + + + + + | Absolute | 0.4Comment: Testing | 0 - 0.8 K/uL | EXTERNAL | | | Monocytes | performed at [facility], [address] | | LAB | | | | [address], | | | | | | [place] [address] | | | | + + + + + + | Absolute | 0.0Comment: Testing | 0 - 0.5 K/uL | EXTERNAL | | | Eosinophils | performed at [facility], [address] | | LAB | | | | [address], | | | | | | [place] [address] | | | | + + + + + + | Absolute | 0.0Comment: Testing | 0 - 0.1 K/uL | EXTERNAL | | | Basophils | performed at [facility], [address] | | LAB | | | | [address], | | | | | | [place] [address] | | | | + + + [...] | | | | | [place] [address] | | | | + + + + + + | K | 4.5Comment: Testing | 3.5 - 4.9 | EXTERNAL | | | | performed at [facility], [address] | mmol/L | LAB | | | | [address], | | | | | | [place] [address] | | | | + + + + + + | Cl | 107Comment: Testing | 99 - 109 mmol/L | EXTERNAL | | | | performed at [facility], [address] | | LAB | | | | [address], | | | | | | [place] [address] | | | | + + + + + + | CO2 | 26Comment: Testing | 23 - 32 mmol/L | EXTERNAL | | | | performed at [facility], [address] | | LAB | | | | [address], | | | | | | [place] [address] | | | | + + + + + + | Anion Gap | 8Comment: Testing | 5 - 20 mmol/L | EXTERNAL | | | | performed at [facility], [address] | | LAB | | | | [address], | | | | | | [place] [address] | | | | + + + + + + | Glucose, | 137 (H)Comment: Testing | 65 - 99 mg/dL | EXTERNAL | | | Fasting | performed at [facility], [address] | | LAB | | | | [address], | | | | | | [place] [address] | | | | + + + + + + | BUN | 16Comment: Testing | 8 - 25 mg/dL | EXTERNAL | | | | performed at [facility], [address] | | LAB | | | | [address], | | | | | | [place] [address] | | | | + + + + + + | Creatinine | 0.75Comment: Testing | 0.50 - 1.00 | EXTERNAL | | | | performed at [facility], [address] | mg/dL | LAB | | | | [address], | | | | | | [place] [address] | | | | + + + + + + | BUN/Creatin | 21Comment: Testing | | EXTERNAL | | | ine Ratio | performed at [facility], [address] | | LAB | | | | [address], | | | | | | [place] [address] | | | | + + + + + + | Calcium | 9.1Comment: Testing | 8.5 - 10.2 | EXTERNAL | | | | performed at [facility], [address] | mg/dL | LAB | | | | [address], | | | | | | [place] [address] | | | | + + + [...] | | | | at [facility], [address] | | | | | | [address], | | | | | | [place] [address] | | | | + + + [...] LAB | | | | Blvd;[place] [address] | | | | + + + + + + | Antibody | NEGATIVE | | EXTERNAL | | | Screen | | | LAB | | + + + + + + | Antibody | Testing performed at | | EXTERNAL | | | Screen | [facility] | | LAB | | | | [address];[place] [address] | | | | + + + + + + | BB BAND | [id number] | | EXTERNAL | | | | | | LAB | | + + + + + + | BB BAND | Testing performed at | | EXTERNAL | | | | [facility];[address] [place] [address] | | LAB | | | | [address];[place] [address] | | | | + + + [...]
--- OUTSIDE RECORDS SUMMARY | ~2019-11-09 | XMS | Encounter Summary ---
Demographics + + + | Address | [address] | | | [place] [address] | + + + | Home Phone [...] [facility] | | | and [place] | + + + | Organization | [facility] | | | and [...] Team Providers + +------+ + | Care Fur Coat Sewer Name | Role | Phone | + +------+ + | Hayden Acevedo MD | PCP | | + +------+ + Encounter Details +--------+ + + + + | Date | Type | Department | Care Team | Description | +--------+ + + + + | 01/30/ | Hospital | [facility] | Juan Alberto Worrell MD | Thoracic or | | 2013 | Encounter | CENTER SURGICAL [address] | [address] | lumbosacral neuritis | | | | [address] | [address]LO[address] | or radiculitis, | | | | [place], [place] | [place] | unspecified; | | | | [address] | [address] | Radiculopathy of | | | | [phone] | [phone] | lumbar region; | | | | [...] Date of Service: 01/30/14 1800 Status: Signed Transportation Planner: Geovanna Fischer RN (Registered Nurse) Discharge teaching [...] Betancourt PA-C Service: Neurosurgery Author Type: Physician Facility Maintenance Mechanic - Ce rtified Filed: 01/30/14 1606 Date of Service: 01/30/14 1602 Status: Signed Transportation Planner: Keesha Betancourt PA-C (Physician Facility Maintenance Mechanic - Certified) [facility] Service: Neurosurgery Progress Note Hospital Day: LOS: [...] home. Follow up in 2 weeks in [facility] clinic. Discharge instructions given. Rx giv [...] 1540 Date of Service: 01/30/141443 Status: Signed Transportation Planner: Demi Paige PT (Physical Therapist) 01/30/14 1444 PT Last Visit PT Received On 01/30/14 Reason for Treatment Spinal surgery Requires PT Follow Up No PT Eval/Reassessment Date 01/30/14 Assistance Required 1 person;Independent Nutrition Teacher Needed No Requires PT Follow Up [...] Walker front wheeled Prior Function Level of [place] Modified independent with functional mobility;Modified independent wi [...] Eval/Reassessment Date 01/30/14 Assistance Required 1 person;Independent Nutrition Teacher Needed No Precautions Spinal Precautions Lumbar [...] 01/30/141121 Date of Service: 01/30/141121 Status: Signed Transportation Planner: Marnie Dewitt RPH (Pharmacist) Renal Dosing Monitoring: [...] | | | | | [place] [id number] | | | | | | [phone] | | | | | | | [...]
--- OUTSIDE RECORDS SUMMARY | ~2019-11-09 | XMS | Encounter Summary ---
Demographics + + + | Address | [address] | | | [place] [address] | + + + | Home Phone [...] | [facility] | | | and [place] | + + + | Organization | [facility] | | | and [...] Providers + +------+ + | Care Manager Skilled Name | Role | Phone | + [...] PHYSIATRY [address] | MD [address] | | | | | [address] | [place], [place] | | | | | [place], [place] | [address] | | | | | [address] | | | | | | [phone] | | | +--------+ + + + [...] | | | | | [place] [address] | | | | | | [phone] | | | | | | | | +--------+---------+ + + + documented as of this encounter Visit Diagnoses Not on filedocumented in this encounter"
--- OUTSIDE RECORDS SUMMARY | ~2019-11-09 | XMS | Encounter Summary ---
Demographics + + + | Address | [address] | | | [place] [address] | + + + | Home Phone | | + + + | Preferred Language | Unknown | + + + | Marital Status | Single | + + + | Gnosticist Affiliation | 1009 | + + + | Race | Unknown | + + + | Ethnic Group | Unknown | + + + Author + + + | Author | [facility] | | | and [place]sm[place]ana | + + + | Organization | [facility] | | | and Osmelana [...] + +------+ + | Care Director Of Cardiopulmonary Services Name | Role | Phone | + [...] PHYSIATRY [address] | MD [address] | | | | | [address] | [place] | | | | | [place], [place] | [address] | | | | | [address] | | | | | | [phone] | | | +--------+ + + + [...] | | | | | [place] [address] | | | | | | [phone] | | | | | | | | +--------+---------+ + + + documented as of this encounter Visit Diagnoses Not on filedocumented in this encounter"
--- OUTSIDE RECORDS SUMMARY | ~2019-11-09 | XMS | Encounter Summary ---
Demographics + + + | Address | [address] | | | [place] [address] | + + + | Home Phone | | + + + | Preferred Language | Unknown | + + + | Marital Status | Single | + + + | Catholic Affiliation | 1009 | + + + | Race | Unknown | + + + | Ethnic Group | Unknown | + + + Author + + + | Author | [facility] | | | and [place] | + + + | Organization | [facility] | | | and [place]sm[place]ana [...] Team Providers + +------+ + | Care Groutman Name | Role | Phone | + +------+ + | Naren Nina PA-C | PCP | | + +------+ + Encounter Details +--------+ + + + + | Date | Type | Department | Care Team | Description | +--------+ + + + + | 03/20/ | Orders Only | [facility] | DyeMisha John, | | | 2013 | | [facility]OC[facility]ATED | [address] | | | | | [facility] | [address] [place], | | | | | [address] | [place] [address] | | | | | [address] [place], | [phone] | | | | | [place] [address] | | | | | | [phone] | | | +--------+ + + + [...] | | | | | [place] [address] | | | | | | [phone] | | | | | | | [...]
--- OUTSIDE RECORDS SUMMARY | ~2019-11-09 | XMS | Encounter Summary ---
Demographics + + + | Address | [address] | | | [place] [address] | + + + | Home Phone | | + + + | Preferred Language | Unknown | + + + | Marital Status | Single | + + + | Worship Affiliation | 1009 | + + + | Race | Unknown | + + + | Ethnic Group | Unknown | + + + Author + + + | Author | [facility] | | | and [place] | + + + | Organization | [facility] | | | and [...] Providers + +------+ + | Care Stock Pitcher Name | Role | Phone | + +------+ + | Naren Nina PA-C | PCP | | + +------+ + Encounter Details +--------+ + + + + | Date | Type | Department | Care Team | Description | +--------+ + + + + | 02/10/ | Orders Only | [facility] | [place], | | | 2013 | | INFECTIOUS DISEASE | MD [address] | | | | | [address] | [place] | | | | | [place], [place] | [place] [address] | | | | | [address] | [phone] | | | | | [phone] | | | +--------+ + + + [...] Notes by Delilah Santos MD at 10/22/13 7198 Author: Delilah Santos MD Service: (none) Author Type: Physician Filed: 10/22/13 1636 Encounter Date: 10/22/2013 Status: Signed Luncheonette Operator: Delilah Santos MD (Physician) Subjective: Patient ID: Bisi Becker is a 53 y.o. female. HPI The patient has been referred by ANURAG Winters regarding chronic hepatitis C. Past medical history, medications, allergies, social and family history have been reviewed. The patient has a history of bipolar affective disorder, recent hospital admission to [facility] in September for polypharmacy resulting into altered [...] Dye. She will also follow-up with at [facility] on November 13 and according to the [...] DEVELOPED AND ITS PERFORMANCE CHARACTERISTICS DETERMINED BY [facility]. IT HAS [...] DEVELOPED AND ITS PERFORMANCE CHARACTERISTICS DETERMINED BY [facility]. IT HAS [...] 5. Gas obscures aorta, pancreas. abdomen complete [LEF590] Assessment and Plan: Visit Diagnoses and Associated [...] her primary care provider or through the [facility]. I will defer her bronchitis/COPD [...] B | | | | | | [place] [address] | | | | | | [phone] | | | | | | | [...] | | | Results | [address] [facility], | | | | | | [place] [address] | | | | + + + + + + | FIBROSURE | F1 TO [id number]: Testing | | EXTERNAL | | | STAGE | performed by [facility], | | LAB | | | | [address] [facility], | | | | | | [place] [address] | | | | + + + + + + | Necroinflam | 0.33 (H)Comment: Testing | 0.00 - 0.17 | EXTERNAL | | | mat | performed by [facility], | | LAB | | | Activity | [address] [facility], | | | | | Score | [place] [address] | | | | + + + + + + | Necroinflam | SEE BELOWComment: A1, | | EXTERNAL | | | mat | MINIMAL ACTIVITYTesting | | LAB | | | Activity | performed by [facility], | | | | | Grade | [address] [facility], | | | | | | [place] [address] | | | | + + + + + + | Alpha | 290 (H)Comment: Testing | 110 - 276 mg/dL | EXTERNAL | | | 2-Macroglob | performed by [facility], | | LAB | | | wilfrid Qn | [address], | | | | | | [place] [address] | | | | + + + + + + | Haptoglobin | 134Comment: Testing | 34 - 200 mg/dL | EXTERNAL | | | | performed by [facility], | | LAB | | | | [address], | | | | | | [place] [address] | | | | + + + + + + | Apolipoprot | 127Comment: Testing | 110 - 205 mg/dL | EXTERNAL | | | ein A-1 | performed by [facility], | | LAB | | | | [address], | | | | | | [place] [address] | | | | + + + + + + | Bilirubin, | 0.2Comment: Testing | 0.0 - 1.2 mg/dL | EXTERNAL | | | Total | performed by [facility], | | LAB | | | | [address], | | | | | | [place] [address] | | | | + + + + + + | Gamma | 119 (H)Comment: Testing | 0 - 60 IU/L | EXTERNAL | | | Glutamyl | performed by [facility], | | LAB | | | Transferase | [address], | | | | | | [place] [address] | | | | + + + + + + | ALT (SGPT) | 53 (H)Comment: Testing | 0 - 40 IU/L | EXTERNAL | | | P5P | performed by [facility], | | LAB | | | | [address], | | | | | | [place] [address] | | | | + + [...] [address], | | | | | | [facility] [address] | | | | + + + [...] [place] | | | | | | [address] | | | | + + + + + + | Comment | SEE BELOWComment: THIS | | EXTERNAL | | | | TEST WAS DEVELOPED AND | | LAB | | | | ITS PERFORMANCE | | | | | | CHARACTERISTICS | | | | | | DET[facility]MINEDBY [facility]. IT | | | | | | [...] DEPARTMENT | | | | | | [phone].Testing | | | | | | performed by [facility], | | | | | | [address], | | | | | | [place] [address] | | | | + + + [...]
--- OUTSIDE RECORDS SUMMARY | ~2019-11-09 | XMS | Encounter Summary ---
Demographics + + + | Address | [address] | | | [place] [address] | + + + | Home Phone [...] Author | [facility] | | | and [place]ana | + + + | Organization | [facility] [...] Team Providers + +------+ + | Care Mill Hand Plate Mill Name | Role | Phone | + [...] + + | 10/30/ | Telephone | [facility] | Jose Gonzalez DO | Other | | 2020 | | NEUROSURGERY [address] | [address] | | | | | [address] | [facility] [address] | | | | | [place], [place] | [place] [address] | | | | | [address] | [phone] | | | | | [phone] | | | +--------+ + + + [...] | | | | | [place] [address] | | | | | | [phone] | | | | | | | | +--------+---------+ + + + documented as of this encounter Visit Diagnoses Not on filedocumented in this encounter"
--- OUTSIDE RECORDS SUMMARY | ~2019-11-09 | XMS | Encounter Summary ---
Demographics + + + | Address | [address] | | | [place] [address] | + + + | Home Phone | | + + + | Preferred Language | Unknown | + + + | Marital Status | Single | + + + | Taoism Affiliation | 1009 | + + + | Race | Unknown | + + + | Ethnic Group | Unknown | + + + Author + + + | Author | [facility] | | | and [place] | + + + | Organization | [facility] | | [...] Team Providers + +------+ + | Care Clerical Transcriber Name | Role | Phone | + [...] | | | | | radiculopath | [address] | [address] | | | | | y Facet | [place], | [place], [place] | | | | | arthritis of | [place] [address] | [address] | | | | | cervical | Phone: | Phone: | | | | | region | [phone] | [phone] | | | | | Chronic | Fax: | Fax: | | | | | bilateral | [phone] | [phone] | | | | | low back [...] | Cervical | [address] | | | | n | radiculopath | [address] | [place], | | | | | y Left arm | [place], | [place] [address] | | | | | numbness | [place] [address] | Phone: | | | | | Left arm | Phone: | [phone] | | | | | weakness | [phone] | Fax: | | | | | Procedures | Fax: | [phone] | | | | | DOS 01/04/16 | [phone] | | +--------+ + + + + [...] | | | | | radiculopath | [address] | [address] | | | | | y Left arm | [place], | AVE | | | | | numbness | [place] [address] | [place], [place] | | | | | Left arm | Phone: | [phone] | | | | | weakness | [phone] | Phone: | | | | | Facet | Fax: | [phone] | | | | | arthritis of | [phone] | Fax: | | | | | cervical | | [phone] | | | | | region | [...] | Rehabilitatio | neck pain | [place] [address] | [address] | | | | n | Low back | [facility] | [place], | | | | | pain Mid | WAY | [place] [address] | | | | | back pain | [place], | Phone: | | | | | | [place] [address] | [phone] | | | | | | Phone: | Fax: | | | | | | [phone] | [phone] | | | | | | Fax: | | | | | | | [phone] | | +--------+--------+ + + + + Encounter Details +--------+---------+ + + + | Date | Type | Department | Care Team | Description | +--------+---------+ + + + | 12/14/ | Office | [facility] | Henri Stewart, | Cervicalgia (Primary | | 2016 | Visit | PHYSIATRY [address] | MD [address] | Dx); Cervical | | | | [address] | [place] | radiculopathy; Left | | | | [place] | [address] | arm numbness; Left | | | | [address] | | arm weakness; Facet | | | | [phone] | | arthritis of | | | | | | cervical region | | | | | | ([facility]); Chronic | | | | | [...] physical therapy within one week, please contact [facility]. Once you have completed physical therapy please continue the home exercise progr am as outline by physical therapy, indefinitely. Please attend the injection appointment with Ramon Mijares MD. If his office has not co ntacted you within one week, to schedule the injection, please contact my clinic. Your inje ction will be performed at [facility]. Please take note of weather your pain is significantly reduced in the hours immediately following the injecti on. Return to the clinic for nerve conduction study of the left upper extremity. A pain clinic consult has been requested at [facility]. documented in this encounter Progress Notes Henri Stewart MD - 12/15/2015 4:38 PM PDTThis office note has been dictated. Report Confirmation# [id number] signed by Henri Stewart MD at 12/15/2015 [...] | | | | | [place] [address] | | | | | | [phone] | | | | | | | [...] region | | | | | | ([facility]) Chronic | | | | | [...] region | | | | | | ([facility]) Chronic | | | | | [...]
--- OUTSIDE RECORDS SUMMARY | ~2019-11-09 | XMS | Encounter Summary ---
Demographics + + + | Address | [address] | | | [place] [address] | + + + | Home Phone [...] Author | [facility] | | | and [place] | + + + | Organization | [facility] | | [...] Team Providers + +------+ + | Care Belt Polisher Name | Role | Phone | + +------+ + | Hayden Acevedo MD | PCP | | + +------+ + Encounter Details +--------+ + + + + | Date | Type | Department | Care Team | Description | +--------+ + + + + | 03/30/ | Emergency | [facility] | Henry Cedillo MD | COPD exacerbation | | 2013 | | MEDICAL CENTER | [address] | ([facility]) | | | | EMERGENCY CENTER | [place] [address] | | | | | [address] | [phone] | | | | | [place], [place] | | | | | | [address] | | | | | | [phone] | | | +--------+ + + + [...] Author: OG Bardales Service: (none) Author Type: Facing End Trimmer Filed: 03/30/142125 Date of Service: 03/30/142125 Status: Signed Printing Machine Mechanic: OG Bardales (Facing End Trimmer) BALDO vega Pt with 6 ED visits [...] | | | | | [place] [address] | | | | | | [phone] | | | | | | | [...]
--- OUTSIDE RECORDS SUMMARY | ~2019-11-09 | XMS | Encounter Summary ---
Demographics + + + | Address | [address] | | | [place] [address] | + + + | Home Phone [...] | Author | [facility] | | | and [place] | + + + | Organization | [facility] | [...] Team Providers + +------+ + | Care Staff Consultant Name | Role | Phone | + +------+ + | Naren Nina PA-C | PCP | | + +------+ + Encounter Details +--------+ + + + + | Date | Type | Department | Care Team | Description | +--------+ + + + + | 02/23/ | Orders Only | [facility] | HallMaximiliano L, | | | 2013 | | AND ANKLE XRAY [address] | DPM [address] | | | | | [address] | [address] [place], | | | | | [place], [place] | [place] [address] | | | | | [address] | [phone] | | | | | [phone] | | | +--------+ + + + [...] | | | | | [place] [address] | | | | | | [phone] | | | | | | | [...]
--- OUTSIDE RECORDS SUMMARY | ~2019-11-09 | XMS | Encounter Summary ---
Demographics + + + | Address | [address] | | | [place] [address] | + + + | Home Phone [...] | [facility] | | | and [place] | + + + | Organization | [facility] | | | and [place]ana [...] Team Providers + +------+ + | Care Corporate Communications Associate Name | Role | Phone | + +------+ + | Hayden Acevedo MD | PCP | | + +------+ + Encounter Details +--------+ + + + + | Date | Type | Department | Care Team | Description | +--------+ + + + + | 06/22/ | Emergency | [facility] | Navneet Stewart | Cough; | | 2013 | | MEDICAL CENTER | DO Jazlyn Lopez [address] | Fever; | | | | EMERGENCY CENTER | [place], [place] | Bronchitis; | | | | [address] | [address] | Dyspnea | | | | [place], [place] | | | | | | [address] | | | | | | [phone] | | | +--------+ + + + [...] | | | | | [place] [address] | | | | | | [phone] | | | | | | | [...] ICA | | | Testing performed at [facility];[address] [place] [address];[place] [address] | | | REPORT STATUS 06/22/2013 FINAL [...] | Procedure Note | + + | Hdiraj, Rad Conversion - 01/18/2019 1:22 AM PDT [...] COCCOBACILLI | | | Testing performed at [facility], [address] [place] [address], | | | [place] [address] CULTURE | | | SMEAR CONTAINS GREATER THAN 10 SEC/LPF SUGGESTIVE OF POOR QUALITY | | | SPECIMEN. SPECIMEN WILL NOT BE CULTURED OR WILL BE CULTURED BY | | | SPECIAL REQUEST ONLY. PLEASE RECOLLECT IF CLINICALLY INDICATED. | | | SPECIMEN WILL BE HELD 48 HOURS. | | | Testing performed at [facility], [address] [place] [address], | | | [place] [address] REPORT STATUS | | | 06/23/2013 FINAL [...]
--- OUTSIDE RECORDS SUMMARY | ~2019-11-09 | XMS | Encounter Summary ---
Demographics + + + | Address | [address] | | | [place] [address] | + + + | Home Phone [...] Author | [facility] | | | and [place] | + + + | Organization | [facility] | | [...] Team Providers + +------+ + | Care Caser Up Name | Role | Phone | + [...] Provider Unknown | | | | | [place], [place] | | | | | | [address] | (Fax) | | | | | [phone] | | | +--------+ + + + [...] | 11/09/ | Office | Neurosurgery | [facility] | | | 2019 | Visit | | [address] | | | | | | [place] [address] | | | | | | [phone] | | | | | | | [...] g/dL Ref Range: | | | 0.6-1.5 [place] [employer] [facility] [facility] | | | Result: 3.55 mg/dL Ref | | | Range: 0.33-1.94 .[facility] | | | Result: 2.28 mg/dL Ref Range: 0.57-2.63 | | | .[place] Ratio Result: 1.56 | | | [...]
--- OUTSIDE RECORDS SUMMARY | ~2019-11-09 | XMS | Encounter Summary ---
Demographics + + + | Address | [address] | | | [place] [address] | + + + | Home Phone | | + + + | Preferred Language | Unknown | + + + | Marital Status | Single | + + + | Pentecostal Affiliation | 1009 | + + + | Race | Unknown | + + + | Ethnic Group | Unknown | + + + Author + + + | Author | [facility] | | | and [place] | + + + | Organization | [facility] | | [...] Team Providers + +------+ + | Care Shovel Operator Name | Role | Phone | + +------+ + | Hayden Acevedo MD | PCP | | + +------+ + Encounter Details +--------+ + + + + | Date | Type | Department | Care Team | Description | +--------+ + + + + | 12/24/ | Hospital | [facility] | Misha Todd, | Mixed incontinence | | 2013 - | Encounter | [facility] [address] | [address] | urge and stress | | | | [address] | [address] [place], | (male)(female); | | 12/26/ | | [place], [place] | [place] [address] | Hypothyroid; HTN | | 2013 | | [address] | [phone] | (hypertension); | | | | [phone] | | Anxiety; | | | | [...] Date of Service: 12/26/13 1043 Status: Signed Co Founder: Misha Todd MD (Physician) [facility] Service: Obstetrics & Gynecology Discharge Summary Date [...] REPAIR); Surgeon: Misha Todd MD; Locatio n: [facility]; Service: MANAGER CONTENT; Laterality: N/A; Anterior portion was not completed Bladder suspension 12/24/2013 Procedure: BLADDER SUSPENSION - TVT; Surgeon: Misha Todd MD; Location: [facility]; Service: MANAGER CONTENT; Laterality: N/A; TVT exact Cystoplasty 12/24/2013 Procedure: CYSTOSCOPY - HYDRODISTENTION OF BLADDER; Surgeon: Misha Todd MD; Locati on: [facility]; Service: MANAGER CONTENT; Laterality: N/A; 70 degree scope. Indigo Emilia dye a vailable to Anesthesiologist Enterocele repair 12/24/2013 Procedure: ENTEROCELE RPR; Surgeon: Misha Todd MD; Location: [facility]; Servic e: MANAGER CONTENT; Laterality: N/A; No Known Allergies Prescriptions prior [...] pr ocedure. 2 enema 0 ergocalciferol (DRISDOL) 41203 UNITS capsule Take 1 capsule by mouth [...] file. Follow up: Misha Todd MD [address] [facility] [address] [facility] [address] In 1 month Medication List As of [...] diagnoses: Loss Of Bladder Control, Painful Sexual Tabor, Fallen Bladder, Saggin g Of Female Genital [...] are the prescriptions that you need to vegetable picker. You may get these medications from [...] 12/26/131124 Date of Service: 12/26/131124 Status: Signed Co Founder: Sarah Birch RN (Registered Nurse) Discharge instructions [...] 111 Date of Service: 12/25/131109 Status: Signed Co Founder: JULIO Ocampo (Massage Therapist) 12/25/13 1100 MT Last Visit MT Received On 12/25/13 MT Therapy Visit Refused onver david Rodríguez, Provider Unknown - 12/25/2013 8:09 AM PDT Case Management by OG Mae at 12/25/13 0809 Author: OG Mae Service: (none) Author Type: Foundation Relations Director Filed: 12/25/13 0810 Date of Service: 12/25/13 0809 Status: Signed Co Founder: OG Mae (Foundation Relations Director) CM met with pt for discharge planning. [...] to follow as needed. Discharge Plan: Home. Digeo GRAVESSW 12/25/13 0808 Discharge Planning Evaluation Admitting [...] B | | | | | | [place] [address] | | | | | | [phone] | | | | | | | [...] | | | | | [place] [address] | | | | + + + + + + | Red Blood | 3.87Comment: Testing | 3.70 - 5.10 | EXTERNAL | | | Cells | performed at [facility], [address] | M/uL | LAB | | | Counted | [address], | | | | | | [place] [address] | | | | + + + + + + | Hemoglobin | 11.8Comment: Testing | 11.3 - 15.5 | EXTERNAL | | | | performed at [facility], [address] | g/dL | LAB | | | | [address], | | | | | | [place], [place] [address] | | | | + + + + + + | Hematocrit, | 35.8Comment: Testing | 34.0 - 46.0 % | EXTERNAL | | | POC | performed at [facility], [address] | | LAB | | | | [address], | | | | | | [place] [address] | | | | + + + + + + | MCV | 92.5Comment: Testing | 80.0 - 100.0 fl | EXTERNAL | | | | performed at [facility], [address] | | LAB | | | | [address], | | | | | | [place] [address] | | | | + + + + + + | MCH | 30.5Comment: Testing | 27.0 - 34.0 pg | EXTERNAL | | | | performed at [facility], [address] | | LAB | | | | [address], | | | | | | [place] [address] | | | | + + + + + + | MCHC | 32.9Comment: Testing | 32.0 - 35.5 | EXTERNAL | | | | performed at [facility], [address] | g/dL | LAB | | | | [address], | | | | | | [place] [address] | | | | + + + + + + | RDW-CV | 49.9Comment: Testing | 37 - 53 fl | EXTERNAL | | | | performed at [facility], [address] | | LAB | | | | [address], | | | | | | [place] [address] | | | | + + + + + + | Platelet | 208Comment: Testing | 150 - 400 K/uL | EXTERNAL | | | Count | performed at [facility], [address] | | LAB | | | Plasma | [address], | | | | | | [place] [address] | | | | + + + + + + | MPV | 8.4Comment: Testing | fl | EXTERNAL | | | | performed at [facility], [address] | | LAB | | | | [address], | | | | | | [place] [address] | | | | + + + [...] | | | | | [place] [address] | | | | + + + + + + | % Segmented | 86.6Comment: Testing | % | EXTERNAL | | | | performed at [facility], [address] | | LAB | | | Neutrophils | [address], | | | | | | [place] [address] | | | | + + + + + + | % | 9.0Comment: Testing | % | EXTERNAL | | | Lymphocytes | performed at [facility], [address] | | LAB | | | | [address], | | | | | | [place] [address] | | | | + + + + + + | % Monocytes | 4.3Comment: Testing | % | EXTERNAL | | | | performed at [facility], [address] | | LAB | | | | [address], | | | | | | [place] [address] | | | | + + + + + + | % | 0.0Comment: Testing | % | EXTERNAL | | | Eosinophils | performed at [facility], [address] | | LAB | | | | [address], | | | | | | [place] [address] | | | | + + + + + + | % Basophils | 0.1Comment: Testing | % | EXTERNAL | | | | performed at [facility], [address] | | LAB | | | | [address], | | | | | | [place] [address] | | | | + + + + + + | Absolute | 9.0 (H)Comment: Testing | 1.9 - 7.4 K/uL | EXTERNAL | | | Segmented | performed at [facility], [address] | | LAB | | | Neutrophils | [address], | | | | | | [place] [address] | | | | + + + + + + | Absolute | 0.9 (L)Comment: Testing | 1.0 - 3.9 K/uL | EXTERNAL | | | Lymphocytes | performed at [facility], [address] | | LAB | | | | [address], | | | | | | [place] [address] | | | | + + + + + + | Absolute | 0.4Comment: Testing | 0 - 0.8 K/uL | EXTERNAL | | | Monocytes | performed at [facility], [address] | | LAB | | | | [address], | | | | | | [place] [address] | | | | + + + + + + | Absolute | 0.0Comment: Testing | 0 - 0.5 K/uL | EXTERNAL | | | Eosinophils | performed at [facility], [address] | | LAB | | | | [address], | | | | | | [place] [address] | | | | + + + + + + | Absolute | 0.0Comment: Testing | 0 - 0.1 K/uL | EXTERNAL | | | Basophils | performed at [facility], [address] | | LAB | | | | [address], | | | | | | [place] [address] | | | | + + + [...] | | | | | [place] [address] | | | | + + + + + + | K | 4.5Comment: Testing | 3.5 - 4.9 | EXTERNAL | | | | performed at [facility], [address] | mmol/L | LAB | | | | [address], | | | | | | [place] [address] | | | | + + + + + + | Cl | 107Comment: Testing | 99 - 109 mmol/L | EXTERNAL | | | | performed at [facility], [address] | | LAB | | | | [address], | | | | | | [place] [address] | | | | + + + + + + | CO2 | 26Comment: Testing | 23 - 32 mmol/L | EXTERNAL | | | | performed at [facility], [address] | | LAB | | | | [address], | | | | | | [place] [address] | | | | + + + + + + | Anion Gap | 8Comment: Testing | 5 - 20 mmol/L | EXTERNAL | | | | performed at [facility], [address] | | LAB | | | | [address], | | | | | | [place] [address] | | | | + + + + + + | Glucose, | 137 (H)Comment: Testing | 65 - 99 mg/dL | EXTERNAL | | | Fasting | performed at [facility], [address] | | LAB | | | | [address], | | | | | | [place] [address] | | | | + + + + + + | BUN | 16Comment: Testing | 8 - 25 mg/dL | EXTERNAL | | | | performed at [facility], [address] | | LAB | | | | [address], | | | | | | [place] [address] | | | | + + + + + + | Creatinine | 0.75Comment: Testing | 0.50 - 1.00 | EXTERNAL | | | | performed at [facility], [address] | mg/dL | LAB | | | | [address], | | | | | | [place] [address] | | | | + + + + + + | BUN/Creatin | 21Comment: Testing | | EXTERNAL | | | ine Ratio | performed at [facility], [address] | | LAB | | | | [address], | | | | | | [place] [address] | | | | + + + + + + | Calcium | 9.1Comment: Testing | 8.5 - 10.2 | EXTERNAL | | | | performed at [facility], [address] | mg/dL | LAB | | | | [address], | | | | | | [place] [address] | | | | + + + [...] | | | | | | at [facility], [address] | | | | | | [address], | | | | | | [place] [address] | | | | + + + [...] LAB | | | | Blvd;[place] [address] | | | | + + + + + + | Antibody | NEGATIVE | | EXTERNAL | | | Screen | | | LAB | | + + + + + + | Antibody | Testing performed at | | EXTERNAL | | | Screen | [facility] | | LAB | | | | Blvd;[place] [address] | | | | + + + + + + | BB BAND | [id number] | | EXTERNAL | | | | | | LAB | | + + + + + + | BB BAND | Testing performed at | | EXTERNAL | | | | [facility];[address] [place] [address] | | LAB | | | | [address] [address] | | | | + + + [...]
--- OUTSIDE RECORDS SUMMARY | ~2019-11-09 | XMS | Encounter Summary ---
Demographics + + + | Address | [address] | | | [place] [address] | + + + | Home Phone [...] Author | [facility] | | | and [place] | + + + | Organization | [facility] [...] Team Providers + +------+ + | Care Hide Washer Name | Role | Phone | + +------+ + | Hayden Acevedo MD | PCP | | + +------+ + Encounter Details +--------+ + + + + | Date | Type | Department | Care Team | Description | +--------+ + + + + | 10/10/ | Emergency | [facility] | Mikayla Stahl, | COPD exacerbation | | 2013 | | MEDICAL CENTER | [facility] [address] | ([facility]); Arthritis; | | | | EMERGENCY CENTER | [place] [address] | Ankle pain, right; | | | | [address] | [phone] | Tobacco abuse | | | | [place], [place] | | | | | | [address] | | | | | | [phone] | | | +--------+ + + + [...] | | | | | [place] [address] | | | | | | [phone] | | | | | | | [...]
--- OUTSIDE RECORDS SUMMARY | ~2019-11-09 | XMS | Encounter Summary ---
Demographics + + + | Address | [address] | | | [place] [address] | + + + | Home Phone | | + + + | Preferred Language | Unknown | + + + | Marital Status | Single | + + + | Jewish Affiliation | 1009 | + + + | Race | Unknown | + + + | Ethnic Group | Unknown | + + + Author + + + | Author | [facility] | | | and [place] | + + + | Organization | [facility] | | | and [...] Team Providers + +------+ + | Care Teachers Assistant Name | Role | Phone | + +------+ + | Hayden Acevedo MD | PCP | | + +------+ + Encounter Details +--------+ + + + + | Date | Type | Department | Care Team | Description | +--------+ + + + + | 01/22/ | Hospital | [facility] | Conversion | Thoracic or | | 2013 | Encounter | [facility] | Transaction, | lumbosacral neuritis | | | | CLINIC [address] | Provider Unknown | or radiculitis, | | | | [address] [place], [place] | | unspecified | | | | [address] | (Fax) | | | | | [phone] | | | +--------+ + + + [...] [address] | | | | | | [address] | | | | | | [place] [address] | | | | | | [phone] | | | | | | | [...] | | | Patient | performed at [facility];[address] | | LAB | | | | [address];[place], [place] | | | | | | [address] | | | | + + + [...] | | | | | performed at [facility] | | | | | | [facility];[place], [place] | | | | | | [address] | | | | + + + [...] EXTERNAL | | | | performed at [facility], [address] | | LAB | | | | [address], | | | | | | [place] [address] | | | | + + + + + + | Red Blood | 3.99Comment: Testing | 3.70 - 5.10 | EXTERNAL | | | Cells | performed at [facility], [address] | M/uL | LAB | | | Counted | [address], | | | | | | [place] [address] | | | | + + + + + + | Hemoglobin | 12.0Comment: Testing | 11.3 - 15.5 | EXTERNAL | | | | performed at [facility], [address] | g/dL | LAB | | | | [address], | | | | | | [place] [address] | | | | + + + + + + | Hematocrit, | 36.2Comment: Testing | 34.0 - 46.0 % | EXTERNAL | | | POC | performed at [facility], [address] | | LAB | | | | [address], | | | | | | [place] [address] | | | | + + + + + + | MCV | 90.9Comment: Testing | 80.0 - 100.0 fl | EXTERNAL | | | | performed at [facility], [address] | | LAB | | | | [address], | | | | | | [place] [address] | | | | + + + + + + | MCH | 30.1Comment: Testing | 27.0 - 34.0 pg | EXTERNAL | | | | performed at [facility], [address] | | LAB | | | | [address], | | | | | | [place] [address] | | | | + + + + + + | MCHC | 33.1Comment: Testing | 32.0 - 35.5 | EXTERNAL | | | | performed at [facility], [address] | g/dL | LAB | | | | [address], | | | | | | [place] [address] | | | | + + + + + + | RDW-CV | 48.6Comment: Testing | 37 - 53 fl | EXTERNAL | | | | performed at [facility], [address] | | LAB | | | | [address], | | | | | | [place] [address] | | | | + + + + + + | Platelet | 210Comment: Testing | 150 - 400 K/uL | EXTERNAL | | | Count | performed at [facility], [address] | | LAB | | | Plasma | [address], | | | | | | [place] [address] | | | | + + + + + + | MPV | 8.0Comment: Testing | fl | EXTERNAL | | | | performed at [facility], [address] | | LAB | | | | [address], | | | | | | [place] [address] | | | | + + + + + + | Differentia | AUTOMATEDComment: | | EXTERNAL | | | l Type | Testing performed at | | LAB | | | | [facility], [address] | | | | | | [place] | | | | | | [address] | | | | + + + + + + | % Segmented | 35.5Comment: Testing | % | EXTERNAL | | | | performed at [facility], [address] | | LAB | | | Neutrophils | [address], | | | | | | [place] [address] | | | | + + + + + + | % | 47.9Comment: Testing | % | EXTERNAL | | | Lymphocytes | performed at [facility], [address] | | LAB | | | | [address], | | | | | | [place] [address] | | | | + + + + + + | % Monocytes | 8.8Comment: Testing | % | EXTERNAL | | | | performed at [facility], [address] | | LAB | | | | [address], | | | | | | [place] [address] | | | | + + + + + + | % | 7.0Comment: Testing | % | EXTERNAL | | | Eosinophils | performed at [facility], [address] | | LAB | | | | [address], | | | | | | [place] [address] | | | | + + + + + + | % Basophils | 0.8Comment: Testing | % | EXTERNAL | | | | performed at [facility], [address] | | LAB | | | | [address], | | | | | | [place] [address] | | | | + + + + + + | Absolute | 2.0Comment: Testing | 1.9 - 7.4 K/uL | EXTERNAL | | | Segmented | performed at [facility], [address] | | LAB | | | Neutrophils | [address], | | | | | | [place] [address] | | | | + + + + + + | Absolute | 2.7Comment: Testing | 1.0 - 3.9 K/uL | EXTERNAL | | | Lymphocytes | performed at [facility], [address] | | LAB | | | | [address], | | | | | | [place] [address] | | | | + + + + + + | Absolute | 0.5Comment: Testing | 0 - 0.8 K/uL | EXTERNAL | | | Monocytes | performed at [facility], [address] | | LAB | | | | [address], | | | | | | [place] [address] | | | | + + + + + + | Absolute | 0.4Comment: Testing | 0 - 0.5 K/uL | EXTERNAL | | | Eosinophils | performed at [facility], [address] | | LAB | | | | [address], | | | | | | [place] [address] | | | | + + + + + + | Absolute | 0.0Comment: Testing | 0 - 0.1 K/uL | EXTERNAL | | | Basophils | performed at [facility], [address] | | LAB | | | | [address], | | | | | | [place] [address] | | | | + + + [...] | | | | | [place] [address] | | | | + + + + + + | K | 4.2Comment: Testing | 3.5 - 4.9 | EXTERNAL | | | | performed at [facility], [address] | mmol/L | LAB | | | | [address], | | | | | | [place] [address] | | | | + + + + + + | Cl | 108Comment: Testing | 99 - 109 mmol/L | EXTERNAL | | | | performed at [facility], [address] | | LAB | | | | [address], | | | | | | [place] [address] | | | | + + + + + + | CO2 | 25Comment: Testing | 23 - 32 mmol/L | EXTERNAL | | | | performed at [facility], [address] | | LAB | | | | [address], | | | | | | [place] [address] | | | | + + + + + + | Anion Gap | 6Comment: Testing | 5 - 20 mmol/L | EXTERNAL | | | | performed at [facility], [address] | | LAB | | | | [address], | | | | | | [place] [address] | | | | + + + + + + | Glucose, | 113 (H)Comment: Testing | 65 - 99 mg/dL | EXTERNAL | | | Fasting | performed at [facility], [address] | | LAB | | | | [address], | | | | | | [place] [address] | | | | + + + + + + | BUN | 16Comment: Testing | 8 - 25 mg/dL | EXTERNAL | | | | performed at [facility], [address] | | LAB | | | | [address], | | | | | | [place] [address] | | | | + + + + + + | Creatinine | 0.76Comment: Testing | 0.50 - 1.00 | EXTERNAL | | | | performed at [facility], [address] | mg/dL | LAB | | | | [address], | | | | | | [place] [address] | | | | + + + + + + | BUN/Creatin | 21Comment: Testing | | EXTERNAL | | | ine Ratio | performed at [facility], [address] | | LAB | | | | [address], | | | | | | [place] [address] | | | | + + + + + + | Calcium | 9.7Comment: Testing | 8.5 - 10.2 | EXTERNAL | | | | performed at [facility], [address] | mg/dL | LAB | | | | [facility], | | | | | | [place] [address] | | | | + + + [...] | | | | | [facility], | | | | | | [place] [address] | | | | + + + [...] EXTERNAL LAB | | Testing performed at [facility];[address] [place] [address];[place] [address] MRSA PCR | | | NEGATIVE Testing performed at | | | [facility];[address] [place] [address];[place] [address] | | + + + + +---------+ [...] + + | Historically converted procedure from [facility] | EXTERNAL LAB | + + + [...]
--- OUTSIDE RECORDS SUMMARY | ~2019-11-09 | XMS | Encounter Summary ---
Demographics + + + | Address | [address] | | | [place] [address] | + + + | Home Phone | | + + + | Preferred Language | Unknown | + + + | Marital Status | Single | + + + | Confucianism Affiliation | 1009 | + + + | Race | Unknown | + + + | Ethnic Group | Unknown | + + + Author + + + | Author | [facility] | | | and [place] | + + + | Organization | [facility] | | | and [...] Team Providers + +------+ + | Care Binder Stripper Machine Name | Role | Phone | + +------+ + | Naren Nina PA-C | PCP | | + +------+ + Encounter Details +--------+ + + + + | Date | Type | Department | Care Team | Description | +--------+ + + + + | 06/06/ | Hospital | [facility] | Conversion | Lumbar radiculopathy | | 2018 | Encounter | [facility] | Transaction, | | | | | [address] | Provider Unknown | | | | | [address] [place], [place] | [phone] | | | | | [address] | | | | | | [phone] | Jose Gonzalez DO | | | | | | [address] | | | | | | [address] [place], | | | | | | [place] [address] | | | | | | [phone] | | | | | | | [...] | | | | | [place] [address] | | | | | | [phone] | | | | | | | [...]
--- OUTSIDE RECORDS SUMMARY | ~2019-11-09 | XMS | Encounter Summary ---
Demographics + + + | Address | [address] | | | [place] [address] | + + + | Home Phone | | + + + | Preferred Language | Unknown | + + + | Marital Status | Single | + + + | Roman Catholic Affiliation | 1009 | + + + | Race | Unknown | + + + | Ethnic Group | Unknown | + + + Author + + + | Author | [facility] | | | and [place] | + + + | Organization | [facility] | | | and [...] Team Providers + +------+ + | Care Cage/Vault Supervisor Name | Role | Phone | [...] PHYSIATRY [address] | MD [address] | | | | | [address] | [place], [place] | | | | | [place], [place] | [address] | | | | | [address] | | | | | | [phone] | | | +--------+ + + + [...] | | | | | [place] [address] | | | | | | [phone] | | | | | | | | +--------+---------+ + + + documented as of this encounter Visit Diagnoses Not on filedocumented in this encounter"
--- OUTSIDE RECORDS SUMMARY | ~2019-11-09 | XMS | Encounter Summary ---
Demographics + + + | Address | [address] | | | [place] [address] | + + + | Home Phone [...] Author + + + | Author | [facility] | | | and [place] | + + + | Organization | [facility] | | [...] Team Providers + +------+ + | Care Organ Builder Name | Role | Phone | + +------+ + | Naren Nina PA-C | PCP | | + +------+ + Encounter Details +--------+ + + + + | Date | Type | Department | Care Team | Description | +--------+ + + + + | 02/10/ | Orders Only | [facility] | [place], | | | 2013 | | INFECTIOUS DISEASE | MD Delilah [address] | | | | | [address] | [place] | | | | | [place], [place] | [place] [address] | | | | | [address] | [phone] | | | | | [phone] | | | +--------+ + + + [...] Notes by Delilah Santos MD at 10/22/13 3698 Author: Delilah Santos MD Service: (none) Author Type: Physician Filed: 10/22/13 1636 Encounter Date: 10/22/2013 Status: Signed Roll Over Loader: Delilah Santos MD (Physician) Subjective: Patient ID: Bisi Becker is a 53 y.o. female. HPI The patient has been referred by ANURAG Winters regarding chronic hepatitis C. Past medical history, medications, allergies, social and family history have been reviewed. The patient has a history of bipolar affective disorder, recent hospital admission to [facility] in September for polypharmacy resulting into altered [...] Dye. She will also follow-up with at [facility] on November 13 and [...] DEVELOPED AND ITS PERFORMANCE CHARACTERISTICS DETERMINED BY [facility]ICINE. IT HAS [...] DEVELOPED AND ITS PERFORMANCE CHARACTERISTICS DETERMINED BY [facility]IC[facility]. IT HAS [...] 5. Gas obscures aorta, pancreas. abdomen complete [[id number]] Assessment and Plan: Visit Diagnoses and Associated [...] her primary care provider or through the [facility]. I will defer her bronchitis/COPD management [...] B | | | | | | [place] [address] | | | | | | [phone] | | | | | | | [...] | | | Results | [address], | | | | | | [place] [address] | | | | + + + + + + | FIBROSURE | F1 TO [id number]: Testing | | EXTERNAL | | | STAGE | performed by [facility], | | LAB | | | | [address] [address], | | | | | | [place] [address] | | | | + + + + + + | Necroinflam | 0.33 (H)Comment: Testing | 0.00 - 0.17 | EXTERNAL | | | mat | performed by [facility], | | LAB | | | Activity | [address] [facility] [address], | | | | | Score | [place] [address] | | | | + + + + + + | Necroinflam | SEE BELOWComment: A1, | | EXTERNAL | | | mat | MINIMAL ACTIVITYTesting | | LAB | | | Activity | performed by [facility], | | | | | Grade | [address] [facility] [address], | | | | | | [place] [address] | | | | + + + + + + | Alpha | 290 (H)Comment: Testing | 110 - 276 mg/dL | EXTERNAL | | | 2-Macroglob | performed by [facility], | | LAB | | | wilfrid Qn | [address], | | | | | | [place] [address] | | | | + + + + + + | Haptoglobin | 134Comment: Testing | 34 - 200 mg/dL | EXTERNAL | | | | performed by [facility], | | LAB | | | | [address], | | | | | | [place] [address] | | | | + + + + + + | Apolipoprot | 127Comment: Testing | 110 - 205 mg/dL | EXTERNAL | | | ein A-1 | performed by [facility], | | LAB | | | | [address], | | | | | | [place] [address] | | | | + + + + + + | Bilirubin, | 0.2Comment: Testing | 0.0 - 1.2 mg/dL | EXTERNAL | | | Total | performed by [facility], | | LAB | | | | [address], | | | | | | [place] [address] | | | | + + + + + + | Gamma | 119 (H)Comment: Testing | 0 - 60 IU/L | EXTERNAL | | | Glutamyl | performed by [facility], | | LAB | | | Transferase | [address], | | | | | | [place] [address] | | | | + + + + + + | ALT (SGPT) | 53 (H)Comment: Testing | 0 - 40 IU/L | EXTERNAL | | | P5P | performed by [facility], | | LAB | | | | [address], | | | | | | [place] [address] | | | | + + + [...] [place], | | | | | | [facility] [address] | | | | + + + [...] [place] | | | | | | [address] | | | | + + + + + + | Comment | SEE BELOWComment: THIS | | EXTERNAL | | | | TEST WAS DEVELOPED AND | | LAB | | | | ITS PERFORMANCE | | | | | | CHARACTERISTICS | | | | | | DETERMINEDBY [facility]. IT | | | | | | [...] DEPARTMENT | | | | | | [phone].Testing | | | | | | [facility], | | | | | | [address], | | | | | | [place] [address] | | | | + + + [...]
--- OUTSIDE RECORDS SUMMARY | ~2019-11-09 | XMS | Encounter Summary ---
Demographics + + + | Address | [address] | | | [place] [address] | + + + | Home Phone [...] | Author | [facility] | | | and [place] | + + + | Organization | [facility] [...] Team Providers + +------+ + | Care Chief Telephone Operator Name | Role | Phone | [...] | Cervical | [address] | | | | n | radiculopath | [address] | [place], | | | | | y Left arm | [place], | [place] [address] | | | | | numbness | [place] [address] | Phone: | | | | | Left arm | Phone: | [phone] | | | | | weakness | [phone] | Fax: | | | | | Procedures | Fax: | [phone] | | | | | DOS 01/04/16 | [phone] | | +--------+ + + + + + Encounter Details +--------+ + + + + | Date | Type | Department | Care Team | Description | +--------+ + + + + | 01/31/ | Procedure | [facility] [place] | Henri Stewart, | Cervicalgia (Primary | | 2016 | visit | PHYSIATRY [address] | MD [address] | Dx); Cervical | | | | [address] | [place] | radiculopathy; | | | | [place], [place] | [address] | Cervical spinal | | | | [address] | | stenosis | | | | [phone] | | | +--------+ + + + [...] might be different fro m the original. [facility] Physical Medicine & Rehabilitation [address] [place] [address], [facility] [address] [place] [address] Test Date: 02/01/2016 Patient Name: Bisi Becker : 1960 Physician: Henri Stewart MD () MR #: [id number] Sex: Female Referring Physician: Naren Nina PA-C [...] she describes as lo ss of hand hand folder. She reports that she sometimes drops objects [...] She has 4/5 biceps, deltoid and hand hand folder strength on the left compared to 5/5 [...] B | | | | | | [place] [address] | | | | | | [phone] | | | | | | | [...]
--- OUTSIDE RECORDS SUMMARY | ~2019-11-09 | XMS | Encounter Summary ---
Demographics + + + | Address | [address] | | | [place] [address] | + + + | Home Phone [...] + | Author | [facility] | | | and [place] | + + + | Organization | [facility] | [...] Team Providers + +------+ + | Care Television And Radio Repairer Name | Role | Phone | [...] PHYSIATRY [address] | MD [address] | | | | | [address] | [place], [place] | | | | | [place], [place] | [address] | | | | | [address] | | | | | | [phone] | | | +--------+ + + + [...] | | | | | [place] [address] | | | | | | [phone] | | | | | | | | +--------+---------+ + + + documented as of this encounter Visit Diagnoses [facility]"
--- OUTSIDE RECORDS SUMMARY | ~2019-11-09 | XMS | Encounter Summary ---
Demographics + + + | Address | [address] | | | [place] [address] | + + + | Home Phone | | + + + | Preferred Language | Unknown | + + + | Marital Status | Single | + + + | Orthodoxy Affiliation | 1009 | + + + | Race | Unknown | + + + | Ethnic Group | Unknown | + + + Author + + + | Author | [facility] | | | and [place] | + + + | Organization | [facility] | | | and [place] [...] Team Providers + +------+ + | Care Lead Data Entry Operator Name | Role | Phone | [...] Provider Unknown | | | | | [place], [place] | [phone] | | | | | [address] | | | | | | [phone] | | | +--------+ + + + [...] | | | | | [place] [address] | | | | | | [phone] | | | | | | | [...]
--- OUTSIDE RECORDS SUMMARY | ~2019-11-09 | XMS | Encounter Summary ---
Demographics + + + | Address | [address] | | | [place] [address] | + + + | Home Phone [...] | Author | [facility] | | | and [place] | + + + | Organization | [facility] | | | and [...] Team Providers + +------+ + | Care Brake Engineer Name | Role | Phone | + +------+ + | Hayden Acevedo MD | PCP | | + +------+ + Encounter Details +--------+ + + + + | Date | Type | Department | Care Team | Description | +--------+ + + + + | 08/21/ | Hospital | [facility] | Conversion | | | 2014 | Encounter | [facility] | Transaction, | | | | | [address] | Provider Unknown | | | | | [place], [place] | [phone] | | | | | [address] | | | | | | [phone] | Misha Dye MD | | | | | | [address] | | | | | | [address] [place], [place] | | | | | | [address] | | | | | | | [...] | | | | | [place] [address] | | | | | | [phone] | | | | | | | | +--------+---------+ + + + documented as of this encounter Visit Diagnoses Not on filedocumented in this encounter"
[~2019-11-09 21:37] MED LIST changes: +BACITRACIN3.5 GM OD
--- OUTSIDE RECORDS SUMMARY | 2019-11-09 21:40 | XMS ---
PreManage Notification: NOHEMI ESPITIA Security Working Manager Events No recent Security Events currently on file CRITERIA MET - [facility] - Has Care Guidelines - PDMP - [facility] - 2 Visits in 30 Days CARE PROVIDERS ANDREINA DURAN Physician 09/23/2018-Current PHONE: Unknown Name [facility] 10/29/2019-Current PHONE: [phone] Chuck has no Care Guidelines for this patient. Care History Medical/Surgical 09/23/2018 [facility], \T\middot;\T\nbsp; PLEASE REFER PATIENT TO [facility] FOR NON EMERGENT MEDICAL NEEDS. \T\middot;\T\nbsp; [facility] CAN SEE PATIENTS SAME DAY FOR APTS IF PATIENT CALLS FIRST THING IN THE MORNING. E.D. VISIT COUNT (12 MO.) 4 CASANDRA Munoz TOTAL 4 NOTE: Visits indicate total known visits. ED/UCC VISIT TRACKING (12 MO.) 11/09/2019 21:38 [facility] [place] TYPE: Emergency COMPLAINT: - SKIN PROBLEM 10/27/2019 15:53 [facility] [place] TYPE: Emergency COMPLAINT: - POSS INFECTION, SORES ON HANDS DIAGNOSES: - Chronic obstructive pulmonary disease, unspecified - Hyperlipidemia, unspecified - Disorder of the skin and subcutaneous tissue, unspecified - Nicotine dependence, unspecified, uncomplicated - Rash and other nonspecific skin eruption - Other group home (current) drug therapy - Essential (primary) hypertension - Hypothyroidism, unspecified 08/22/2019 18:07 [facility] [place] TYPE: Emergency COMPLAINT: - FLANK PAIN, URINE PROBLEM, FLU SX DIAGNOSES: - Nicotine dependence, unspecified, uncomplicated - Hypothyroidism, unspecified - Essential (primary) hypertension - Cough - Chronic obstructive pulmonary disease with (acute) exacerbati - Other intermediate designer (current) drug therapy - Hyperlipidemia, unspecified 02/10/2019 13:48 [facility] [place] TYPE: Emergency COMPLAINT: - SKIN IRRITATIONS, MSED TO CLINIC DIAGNOSES: - Disorder of the skin and subcutaneous tissue, unspecified INPATIENT VISIT TRACKING (12 MO.) No inpatient visits to display in this time frame [email or web address]
[2019-11-09] MEDS ORDERED: VISTARIL25 MG PO (22:14)
[2019-11-09] MEDS ORDERED: KEFLEX500 MG PO (22:14)
== END 2019-11-09 22:29 | disposition home or self-care (01) ==
LOC: ED 21:37
DX: R21 Rash and other nonspecific skin eruption (principal); J44.9 Chronic obstructive pulmonary disease, unspecified; I10 Essential (primary) hypertension; E78.5 Hyperlipidemia, unspecified; E03.9 Hypothyroidism, unspecified; Z79.899 Other long term (current) drug therapy
CPT/HCPCS: 99282

== ENCOUNTER 2019-12-01 10:15 | Emergency (ER) | payer OTHER ==
[~2019-12-01] VITALS: Ht 170.2 cm; Wt 111.1 kg
--- OUTSIDE RECORDS SUMMARY | ~2019-12-01 | XMS | Encounter Summary ---
Demographics + + + | Address | [address] | | | [place] [address] | + + + | Home Phone | | + + + | Preferred Language | Unknown | + + + | Marital Status | Single | + + + | Baptism Affiliation | 1009 | + + + | Race | Unknown | + + + | Ethnic Group | Unknown | + + + Author + + + | Author | [facility] | | | and [place]ana | + + + | Organization | [facility] | | | and [place] [...] Team Providers + +------+ + | Care Carboy Filler Name | Role | Phone | + +------+ + PCP | Unavailable | + +------+ + Encounter Details +--------+ + + + + | Date | Type | Department | Care Team | Description | +--------+ + + + + | 07/13/ | Emergency | [facility] | Russell Newsome, | Right foot pain; | | 2011 | | [facility]ICAL CENTER | [address] | Right foot sprain | | | | EMERGENCY CENTER | [place] [address] | | | | | [address] | [phone] | | | | | [place], [place] | | | | | | [address] | | | | | | [phone] | | | +--------+ + + + [...] on file | | + + + documented as of this encounter ED Notes Conversion Transaction, Provider Unknown - 07/13/2011 12:37 PM PSTFormatting of this note m ight be different from the original. ED Notes by Angie Lira RN at 07/13/11 1237 Author: Angie Lira RN Service: (none) Author Type: Registered Nurse Filed: 07/13/11 1238 Date of Service: 07/13/11 1237 Status: Signed Crop Or Grain Farmer: Angie Lira RN (Registered Nurse) Foot pain started about 2 weeks ago- without injury. Had x-rays- negative. Re-injured las t night. Unable to bear wt now. Angie Lira RN 07/13/11 1238 Ely Parsons PA-C - 07/13/2011 12:28 PM PSTFormatting of this note might be different from the o riginal. ED Provider Notes by Ely Bermeo PA-C at 07/13/11 1228 Author: Ely Bermeo PA-C Service: (none) Author Type: Physician Pilot Fuel Engineer - Certified Filed: 07/13/112002 Date of Service: 07/13/11 1228 Status: Signed Crop Or Grain Farmer: Ely Bermeo PA-C (Physician Pilot Fuel Engineer - Certified) Cosigner: Porfirio Melvin at 07/17/11 1350 Procedure Orders: 1. Orthopedic injury treatment [[id number]] ordered by Ely Bermeo PA-C at 07/13/11 195 Orthopedic Injury Date/Time: 07/13/2011 2:27 PM Performed by: ELY BERMEO Authorized by: ELY BERMEO Consent: Verbal consent obtained. Risks and benefits: risks, benefits and alternatives were discussed Consent given by: patient Imaging studies: imaging studies available Patient identity confirmed: verbally with patient and arm band Injury location: foot Location details: right foot Injury type: soft tissue Pre-procedure neurovascular assessment: neurovascularly intact Pre-procedure distal perfusion: normal Pre-procedure neurological function: normal Pre-procedure range of motion: normal Immobilization: splint Splint type: short leg Supplies used: Ortho-Glass Post-procedure neurovascular assessment: post-procedure neurovascularly intact Post-procedure distal perfusion: normal Post-procedure neurological function: normal Post-procedure range of motion: normal Patient tolerance: Patient tolerated the procedure well with no immediate complications. Comments: She was given crutches as well. [facility] Department of Emergency Medicine History of Present Illness Patient Identification Nohemi Becker is a 51 y.o. female. Patient information was obtained from patient. History/Exam limitations: none. Patient presented to the Emergency Department by: Car Chief Complaint Chief Complaint Patient presents with Foot Injury "It was tendonitis. Last night I almost tripped on the kids laying on the floor, and I archuleta d to put a lot of weight on it. Now I can't walk on it or put any pressure on." Patient walk ed to triage. The patient complains of RIGHT LATERAL FOOT PAIN. The onset was 2 weeks ago, occurring whil e walking-denies trauma. She was seen by PCP in [facility], where she lives, had normal xray then. Last night as she was helping family move, she tripped over boxes, and sprained foot a nd now can't bear weight d/t pain. She has been putting all her weight on heel and she can't walk anymore.. The course since that time has been worsening. The patient relates the [facility] injury history to the extremity: pain began 2 weeks ago without any trauma. The patient specifies the location of the problem is lateral mid foot. Patient's symptoms are improved with nothing, and worsened by attempting to bear weight. Care prior to arriva l consisted of nothing. Other associated symptoms include: none. Past Medical History Diagnosis Date Anxiety Hypertension Past Surgical History Procedure Date Hysterectomy Cholecystectomy Appendectomy Prior to Admission medications Not on File No Known Allergies History Social History Marital Status: Spouse Name: N/A Number of Children: N/A Years of Education: N/A Occupational History unemployed Social History Main Topics Smoking status: Current Everyday Smoker -- 1 years Smokeless tobacco: Not on file Alcohol Use: No Drug Use: No Sexually Active: Other Topics Concern Not on file Social History Narrative No narrative on file History reviewed. No pertinent family history. Review of Systems Constitutional: Negative for: fever, chills, fatigue, sweats or weight loss Cardiovascular/Respiratory: Negative for: chest pain, shortness of breath, cough Gastrointestinal: Negative for: abdominal pain, vomiting, diarrhea, black or bloody stools Musculoskeletal: Positive for: right foot pain Skin: Negative for: laceration or lesion Neuro and psych: Negative for: fainting, head injury, seizure Positive for: trouble walking d/t pain Physical Exam BP 115/71 | Pulse 72 | Temp(Src) 97.6 F (36.4 C) (Temporal) | Resp 18 | Ht 1.702 m (5' 7") | Wt 117.935 kg (260 lb) | BMI 40.72 kg/m2 | SpO2 97% Pulse Oximetry interpretation: Normal General: Alert, in mild distress, lying semi fowlers for comfort Neck: Normal inspection Supple Cardiovascular: S1S2 Respiratory: LCTA Abdomen: Soft, non-tender, BTSx4, non-distended No guarding or rebound Back: Normal inspection Lower Extremities: Edema: none Tenderness: moderate right lateral midfoot, I see no swelling Vascular: intact Ecchymosis: none Joint evaluation: stable Skin: Intact, no skin breakdown to plantar surface Neuro: No motor deficit No sensory deficit Gait not tested d/t pain Medical Decision Making and Emergency Department Course ED Department Course 1330 xray cleared, no acute fx, will put in splint and give crutches, (states she she take s bus from here to home and bus station is couple of blocks from her house and she will have to walk) she is from [place] and will have to f/u with ortho over there if needed. No nabeel n her as long as she doesn't bear weight. 1425 Splint completed by [employer].- she can't tolerate post op shoe, so I put her in a splint 1427 I've discussed findings with pt, I've checked the splint since its been applied, will dc her to home . Pt voices understanding of all instructions and agrees on today's treatment plan. Records Reviewed Nursing notes. Radiology and EKG Evaluation Imaging Results XR Foot Right AP Lateral and Oblique (Final result) Result time:07/13/11 1442 Final result by Rad Results In Dhiraj (07/13/11 ) Narrative: NOHEMI BECKER XR FOOT RIGHT 07/13/2011 12:54 PM HISTORY: 51 years. Female. Right foot pain TECHNIQUE: Standard 3 views of the right foot COMPARISON: None FINDINGS: Osseous structures, joint spaces, soft tissues are normal in appearance. No evidence of a displaced fracture or dislocation. No significant arthritic process. IMPRESSION: 1. No evidence of fracture or dislocation, correlate clinically follow-up study if the pat ient continues be symptomatic. 2. Incidentally noted there may be some degenerative changes of the tibiotalar joint not w ell visualized on this study targeted to the foot correlation with the clinical evaluation o f the ankle is recommended a decision for dedicated ankle series can be made at that point in time. 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 Ely Bermeo PA-C 07/13/112002 Russell Newsome MD 07/17/11 1350 documented in this encounter Plan of Treatment +--------+---------+ + + + | Date | Type | Specialty | Care Team | Description | +--------+---------+ + + + | 12/11/ | Office | Neurosurgery | Veto Hernandes, | | | 2019 | Visit | | [employer] [address] | | | | | | [place] [address] | | | | | | [phone] | | | | | | | | +--------+---------+ + + + documented as of this encounter Procedures + +--------+ + + + | Procedure Name | Priori | Date/Time | Associated Diagnosis | Comments | | | ty | | | | + +--------+ + + + | XR FOOT RIGHT 3 + VW | Routin | 07/13/2011 | | Results for this | | | e | 1:02 PM | | procedure are in the | | | | PST | | results section. | + +--------+ + + + documented in this encounter Results XR Foot Right 3 + Vw (07/13/2011 1:02 PM PST) + + | Specimen | + + | | + + + + + | Narrative | Performed At | + + + | NOHEMI BECKER XR FOOT RIGHT 07/13/2011 12:54 PM HISTORY: 51 | | | years. Female. Right foot pain TECHNIQUE: Standard 3 views of | | | the right foot COMPARISON: None FINDINGS: Osseous | | | structures, joint spaces, soft tissues are normal in appearance. No | | | evidence of a displaced fracture or dislocation. No significant | | | arthritic process. IMPRESSION: 1. No evidence of fracture or | | | dislocation, correlate clinically follow-up study if the patient | | | continues be symptomatic. 2. Incidentally noted there may be some | | | degenerative changes of the tibiotalar joint not well visualized on | | | this study targeted to the foot correlation with the clinical | | | evaluation of the ankle is recommended a decision for dedicated ankle | | | series can be made at that point in time. | | + + + + + | Procedure Note | + + | Nikita Hearn Conversion - 01/25/2019 8:08 AM SVETLANA BECKERXR FOOT RIGHT07/13/2011 | | 12:54 PM HISTORY:51 years. Female. Right foot pain TECHNIQUE:Standard 3 views of the | | right foot COMPARISON:None FINDINGS:Osseous structures, joint spaces, soft tissues are | | normal in appearance. No evidence of a displaced fracture or dislocation. No | | significant arthritic process. IMPRESSION:1. No evidence of fracture or dislocation, | | correlate clinically follow-up study if the patient continues be symptomatic.2. | | Incidentally noted there may be some degenerative changes of the tibiotalar joint not | | well visualized on this study targeted to the foot correlation with the clinical | | evaluation of the ankle is recommended a decision for dedicated ankle series can be made | | at that point in time. | | PM | |None | | | |FINDINGS: | |Osseous structures, joint spaces, soft tissues are normal in appearance. No evidence of a displaced fracture or dislocation. No significant arthritic process. | | | |IMPRESSION: | |1. No evidence of fracture or dislocation, correlate clinically follow-up study if the pat ient continues be symptomatic. | |2. Incidentally noted there may be some degenerative changes of the tibiotalar joint not w ell visualized on this study targeted to the foot correlation with the clinical evaluation o f the ankle is recommended a | |decision for dedicated ankle series can be | | made at that point in time. | | | | | + + documented in this encounter Visit Diagnoses + + | Diagnosis | + + | Right foot pain Pain in limb | + + | Right foot sprain Sprain of foot, unspecified site | + + documented in this encounter
--- OUTSIDE RECORDS SUMMARY | ~2019-12-01 | XMS | Encounter Summary ---
Demographics + + + | Address | [address] | | | [place] [address] | + + + | Home Phone | | + + + | Preferred Language | Unknown | + + + | Marital Status | Single | + + + | Mu-Ism Affiliation | 1009 | + + + | Race | Unknown | + + + | Ethnic Group | Unknown | + + + Author + + + | Author | [facility] | | | and [place] | + + + | Organization | [facility] | | | and [...] Team Providers + +------+ + | Care Commodity Specialist Name | Role | Phone | + +------+ + | Naren Nina PA-C | PCP | | + +------+ + Encounter Details +--------+ + + + + | Date | Type | Department | Care Team | Description | +--------+ + + + + | 02/23/ | Orders Only | [facility] | HallMaximiliano L, | | | 2013 | | AND ANKLE XRAY [address] | DPM [address] | | | | | [address] | [address], | | | | | [place], [place] | [place] [address] | | | | | [address] | [phone] | | | | | [phone] | | | +--------+ + + + [...] | | 2019 | Visit | | [employer]RI[employer] [address] | | | | | | [address] | | | | | | [place] [address] | | | | | | [phone] | | | | | | | | +--------+---------+ + + + documented as of this encounter Procedures + +--------+ + + + | Procedure Name | Priori | Date/Time | Associated Diagnosis | Comments | | | ty | | | | + +--------+ + + + | XR FOOT BILATERAL AP | Routin | 02/23/2014 | | Results for this | | LATERAL AND OBLIQUE | e | 1:31 PM | | procedure are in the | | STANDING | | PDT | | results section. | + +--------+ + + + documented in this encounter Results XR Foot Bilateral 3 Vw Standing (02/23/2014 1:31 PM PDT) + + | Specimen | + + | | + + + + + | Impressions | Performed At | + + + | Healing Jacob fracture right foot Stress reaction of the second and | | | third metatarsal right foot Mild ankle and subtalar joint arthritis | | | bilateral foot Cavus foot structure bilateral Electronically | | | signed by Maximiliano Hall DPM on 03/06/2014 7:55 AM | | + + + + + + | Narrative | Performed At | + + + | Radiographic exam: Three weightbearing views of the bilateral foot | | | were taken and reviewed including AP, oblique and lateral view of the | | | foot. History: Female, 53 years of age, foot pain with history of | | | Jacob fracture right foot Findings: There is evidence of bony | | | callus around the base of the fifth metatarsal of the right foot. The | | | fracture line is no longer visible. There is some cortical sclerosis | | | of the midshaft of the second and third metatarsals of the right foot. | | | There are enthesophytes present at the anterior ankle of the right | | | foot. The patient has a high calcaneal inclination angle the | | | calcaneocuboid angle that is nearly 0? or less and 0? on AP view of | | | the foot bilateral. There are also degenerative changes of the | | | posterior facet of the subtalar joint of the bilateral foot | | + + + + + | Procedure Note | + + | Dhiraj, Nikita Conversion - 01/24/2019 9:17 AM PDT Radiographic exam:Three weightbearing | | views of the bilateral foot were taken and reviewed including AP, oblique and lateral | | view of the foot. History:Female, 53 years of age, foot pain with history of Jacob | | fracture right foot Findings:There is evidence of bony callus around the base of the | | fifth metatarsal of the right foot. The fracture line is no longer visible.There is some | | cortical sclerosis of the midshaft of the second and third metatarsals of the right | | foot. There are enthesophytes present at the anterior ankle of the right foot. The | | patient has a high calcaneal inclination angle the calcaneocuboid angle that is nearly | | 0? or less and 0? on AP view of the foot bilateral. 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
--- OUTSIDE RECORDS SUMMARY | ~2019-12-01 | XMS | Encounter Summary ---
Demographics + + + | Address | [address] | | | [place] [address] | + + + | Home Phone | | + + + | Preferred Language | Unknown | + + + | Marital Status | Single | + + + | Yarsanism Affiliation | 1009 | + + + | Race | Unknown | + + + | Ethnic Group | Unknown | + + + Author + + + | Author | [facility] | | | and [place] | + + + | Organization | [facility] | | | and [place] [...] Team Providers + +------+ + | Care Computer Drafter Name | Role | Phone | + +------+ + | Naren Nina PA-C | PCP | | + +------+ + Encounter Details +--------+ + + + + | Date | Type | Department | Care Team | Description | +--------+ + + + + | 05/24/ | Hospital | [facility] GENERIC IP | Conversion | Pain | | 2017 | Encounter | CONVERSION DEP [address] | Transaction, | | | | | [address] | Provider Unknown | | | | | [place], [place] | [phone] | | | | | [address] | | | | | | [phone] | | | +--------+ + + + [...] + + + +---------+ + + | acetaminophen | Take 650 mg by mouth | | 0 | | | | (TYLENOL) 325 mg | every 4 hours as | | | | | | tablet | needed for Pain [...] (Tylenol Equiv)). | | | | | + + + +---------+ + + | ALBUTEROL IN | Inhale 90 mcg into | | 0 | | | | | the lungs 4 times | | | | | | | daily as needed (2 | | | | | | | puffs). | | | | | + + + +---------+ + + | | Inhale 2 puffs into | | 0 | 07/21/20 | | | albuterol-ipratropiu | the lungs every 6 | | | 14 | | | m (COMBIVENT | (six) hours as | | | | | | RESPIMAT) 100-20 | needed for Wheezing. | | | | | | mcg/puff inhaler | | | | | | + + + +---------+ + + | | Inhale 1 puff into | | 0 | | | | albuterol-ipratropiu | the lungs 4 times | | | | | | m (COMBIVENT | daily. | | | | | | RESPIMAT) 100-20 | | | | | | | mcg/puff inhaler | | | | | | + + + +---------+ + + | ARIPiprazole | Take 10 mg by mouth | | 0 | | | | (ABILIFY) 10 mg | nightly. Begin after | | | | | | tablet | initial titration | | | | | | | is completed | | | | | + + + +---------+ + + | cholecalciferol | Take 5,000 Units by | | 0 | | | | (VITAMIN D-3) 5000 | mouth Daily. | | | | | | units TABS | | | | | | + + + +---------+ + + | DULoxetine | 1 capsule by mouth | 30 | 1 | 12/15/19 | | | (CYMBALTA) [address] | at bedtime with 60 | capsule | | 16 | | | capsule | mg at bedtime for | | | | | | | total of 90 mg | | | | | + + + +---------+ + + | DULoxetine | Take 60 mg by mouth | | 0 | | | | (CYMBALTA) [address] | Daily. Take one | | | | | | capsule | capsule by mouth at | | | | | | | bedtime for | | | | | | | depression. Please | | | | | | | start after initial | | | | | | | titration is | | | | | | | completed | | | | | + + + +---------+ + + | FLUoxetine | Take 1 capsule by | | 0 | 06/25/19 | | | (PROZAC) 40 MG | mouth daily. | | | 14 | | | capsule | | | | | | + + + +---------+ + + | gabapentin | take 1 capsule by | | 0 | 03/10/20 | | | (NEURONTIN) 100 mg | mouth twice a day | | | 14 | | | capsule | | | | | | + + + +---------+ + + | gabapentin | take 2 capsules by | | 0 | 04/11/20 | | | (NEURONTIN) 300 mg | mouth every evening | | | 14 | | | capsule | | | | | | + + + +---------+ + + | gabapentin | 1 capsule by mouth | 120 | 1 | 12/15/19 | | | (NEURONTIN) 300 mg | at bedtime for 3 | capsule | | 16 | | | capsule | days; then 1 twice | | | | | | | daily for 4 days; | | | | | | | then 1 three times | | | | | | | daily for 7 days; | | | | | | | then 1 qAM, 1 qNoon, | | | | | | | and 2 qHS | | | | | + + + +---------+ + + | levothyroxine | Take 1 tablet by | | 0 | 04/14/20 | | | (SYNTHROID) 25 mcg | mouth every morning | | | 14 | | | tablet | before breakfast. | | | | | + + + +---------+ + + | levothyroxine | Take 25 mcg by mouth | | 0 | | | | (SYNTHROID, | Daily. | | | | | | LEVOTHROID) 25 mcg | | | | | | | tablet | | | | | | + + + +---------+ + + | loratadine | Take 10 mg by mouth | | 0 | | | | (CLARITIN) 10 mg | Daily as needed for | | | | | | tablet | Allergies. | | | | | + + [...] + | LORazepam (ATIVAN) | Take 1 mg by mouth 2 | | 0 | | | | 1 mg tablet | times daily. | | | | | + + + +---------+ + + | methocarbamol | Take 750 mg by mouth | | 0 | | | | (ROBAXIN) 750 mg | 3 times daily. | | | | | | tablet | | | | | | + + + +---------+ + + | mometasone | Inhale 2 puffs into | | 0 | | | | (ASMANEX) 220 | the lungs Daily. | | | | | | mcg/puff inhaler | Rinse mouth after | | | | | | | use | | | | | + + + +---------+ + + | nicotine | Place 1 patch onto | | 0 | | | | (NICODERM) 14 mg/24 | the skin every 24 | | | | | | hr | hours. | | | | | + + + +---------+ + + | nicotine | Place 1 patch onto | | 0 | | | | (NICODERM) 21 mg/24 | the skin every 24 | | | | | | hr | hours. | | | | | + + + +---------+ + + | nicotine | Place 1 patch onto | | 0 | | | | (NICODERM) 7 mg/24 | the skin every 24 | | | | | | hr | hours. | | | | | + + + +---------+ + + | OMEPRAZOLE PO | Take 20 mg by mouth | | 0 | | | | | 2 times daily. | | | | | + + + +---------+ + + | promethazine | Take 1 tablet by | | 0 | 10/22/20 | | | (PHENERGAN) 25 mg | mouth every 6 (six) | | | 14 | | | tablet | hours as needed for | | | | | | | Nausea. | | | | | + + + +---------+ + + | traZODone | Take 100 mg by mouth | | 0 | | | | (DESYREL) 100 mg | nightly. Take 1/2-2 | | | | | | tablet | tablets by mouth at | | | | | | | bedtime as needed | | | | | | | for sleep | | | | | + + + +---------+ + + documented as of this encounter Plan of Treatment +--------+---------+ + + + | Date | Type | Specialty | Care Team | Description | +--------+---------+ + + + | 12/11/ | Office | Neurosurgery | Veto Hernandes, | | | 2020 | Visit | | [address] | | | | [address] | [address] | | | | | | [place] [address] | | | | | | [phone] | | | | | | | | +--------+---------+ + + + documented as of this encounter Procedures + +--------+ + + + | Procedure Name | Priori | Date/Time | Associated Diagnosis | Comments | | | ty | | | | + +--------+ + + + | MRI LUMBAR SPINE WO | Routin | 05/21/2017 | | Results for this | | CONTRAST | e | 12:58 AM | | procedure are in the | | | | PST | | results section. | + +--------+ + + + documented in this encounter Results MRI Lumbar Spine wo Contrast (05/21/2017 12:58 AM PST) + + | Specimen | + + | | + + + + + | Narrative | Performed At | + + + | This is a non-reportable procedure without a radiologist report and | | | is used for image storage only | | + + + + + | Procedure Note | + + | Nikita Hearn Conversion - 01/15/2019 7:22 PM PDT This is a non-reportable procedure | | without a radiologist report and isused for image storage only | + + documented in this encounter Visit Diagnoses + + | Diagnosis | + + | Pain Generalized pain | + + documented in this encounter"
--- OUTSIDE RECORDS SUMMARY | ~2019-12-01 | XMS | Encounter Summary ---
Demographics + + + | Address | [address] | | | [place] [address] | + + + | Home Phone | | + + + | Preferred Language | Unknown | + + + | Marital Status | Single | + + + | Episcopal Affiliation | 1009 | + + + | Race | Unknown | + + + | Ethnic Group | Unknown | + + + Author + + + | Author | [facility] | | | and [place] | + + + | Organization | [facility] | | | and [place] [...] Team Providers + +------+ + | Care Swim Coach Name | Role | Phone | + +------+ + | Naren Nina PA-C | PCP | | + +------+ + Reason for Visit + +--------+ + | Reason | Onset | Comments | | | Date | | + +--------+ + | Follow-up | 10/28/ | | | | 2020 | | + +--------+ + Encounter Details +--------+ + + + + | Date | Type | Department | Care Team | Description | +--------+ + + + + | 10/28/ | Telephone | [facility] | Jose Gonzalez DO | Follow-up | | 2019 | | NEUROSURGERY [address] | | | | | [address] | [address] | | | | | [place], [place] | [place] [address] | | | | | [address] | [phone] | | | | | [phone] | | | +--------+ + + + [...] + + documented as of this encounter Miscellaneous Notes Telephone Encounter - Judy Biggs RN - 10/29/2019 2:35 PM PDTSpoke with patient. Alba saleh states she is having some health issues, issues with her head and her teeth. Reschedul ed patient for 11/07/[address] Gonzalez. Bisi verbalized understanding and agreed w ith the plan. elephon e Encounter - Melina Marquez - 10/29/2019 1:54 PM PDTMelody, is calling regarding Follow- up and would like a call back. Additional Call Details: Requesting call back to reschedule appointment on 10/30. Patient stated she has a few health issues going on this week and would like to reschedule for next week if possible. If this is a symptom based call, was patient offered triage? Not Applicable If this is a symptom based call and you were unable to immediately transfer the call to a shelley manzano dressing room porter was caller made aware that if at any time she feels it is an emergency they sh ould call 911 or go to the nearest emergency room? not applicable documented in this encounter Plan of Treatment +--------+---------+ + + + | Date | Type | Specialty | Care Team | Description | +--------+---------+ + + + | 12/11/ | Office | Neurosurgery | Veto Hernandes, | | | 2020 | Visit | | [address] | | | | | | [address] | | | | | | [place] [address] | | | | | | [phone] | | | | | | | | +--------+---------+ + + + documented as of this encounter Visit Diagnoses Not on filedocumented in this encounter"
--- OUTSIDE RECORDS SUMMARY | ~2019-12-01 | XMS | Encounter Summary ---
Demographics + + + | Address | [address] | | | [place] [address] | + + + | Home Phone | | + + + | Preferred Language | Unknown | + + + | Marital Status | Single | + + + | Tenriism Affiliation | 1009 | + + + | Race | Unknown | + + + | Ethnic Group | Unknown | + + + Author + + + | Author | [facility] | | | and [place] | + + + | Organization | [facility] | | | and [...] Team Providers + +------+ + | Care Cadence Specialists Name | Role | Phone | + [...] PHYSIATRY [address] | MD [address] | | | | | [address] | [place] | | | | | [place], [place] | [address] | | | | | [address] | | | | | | [phone] | | | +--------+ + + + [...] B | | | | | | [place] [address] | | | | | | [phone] | | | | | | | | +--------+---------+ + + + documented as of this encounter Visit Diagnoses Not on filedocumented in this encounter"
--- OUTSIDE RECORDS SUMMARY | ~2019-12-01 | XMS | Encounter Summary ---
Demographics + + + | Address | [address] | | | [place] [address] | + + + | Home Phone | | + + + | Preferred Language | Unknown | + + + | Marital Status | Single | + + + | Confucianist Affiliation | 1009 | + + + | Race | Unknown | + + + | Ethnic Group | Unknown | + + + Author + + + | Author | [facility] | | | and [place] | + + + | Organization | [facility] | | | and [place] [...] Team Providers + +------+ + | Care Junior Net Developer Name | Role | Phone | + +------+ + | Hayden Acevedo MD | PCP | | + +------+ + Encounter Details +--------+ + + + + | Date | Type | Department | Care Team | Description | +--------+ + + + + | 08/07/ | Hospital | [facility] | Conversion | | | 2014 | Encounter | [facility] | Transaction, | | | | | [address] | Provider Unknown | | | | | [address] [place], [place] | | | | | | [address] | (Fax) | | | | | [phone] | | | +--------+ + + + [...] | | 2019 | Visit | | [address] | | | | | | [address] | | | | | | [place] [address] | | | | | | [phone] | | | | | | | | +--------+---------+ + + + documented as of this encounter Visit Diagnoses Not on filedocumented in this encounter"
--- OUTSIDE RECORDS SUMMARY | ~2019-12-01 | XMS | Encounter Summary ---
Demographics + + + | Address | [address] | | | [place] [address] | + + + | Home Phone | | + + + | Preferred Language | Unknown | + + + | Marital Status | Single | + + + | Methodist Affiliation | 1009 | + + + | Race | Unknown | + + + | Ethnic Group | Unknown | + + + Author + + + | Author | [facility] | | | and [place] | + + + | Organization | [facility] | | | and [...] Team Providers + +------+ + | Care Pharmacy District Manager Name | Role | Phone | + +------+ + | Hayden Acevedo MD | PCP | | + +------+ + Encounter Details +--------+ + + + + | Date | Type | Department | Care Team | Description | +--------+ + + + + | 01/22/ | Hospital | [facility] | Conversion | Thoracic or | | 2013 | Encounter | [facility] | Transaction, | lumbosacral neuritis | | | | CLINIC [address] | Provider Unknown | or radiculitis, | | | | [address] [place], [place] | | unspecified | | | | [address] | (Fax) | | | | | [phone] | | | +--------+ + + + [...] + + documented as of this encounter Procedure Notes Conversion Transaction, Provider Unknown - 01/22/2014 2:03 PM PDTFormatting of this note m ight be different from the original. Pre-Procedure Instructions by Amena Frank RN at 01/22/14 1403 Author: Amena Frank RN Service: Anesthesiology Author Type: Registered Nurse Filed: 01/22/14 3418 Date of Service: 01/22/14 7684 Status: Addendum Cleaning And Washing Equipment Operator: Amena Frank RN (Registered Nurse) Related Notes: Original Note by Amena Frank RN (Registered Nurse) filed at 01/22/14 141 0 Patient does meets mets of 4 per AHA guidelines, denies chest pain or SOB with walking, if walks long distance does get SOB from her COPD. Able to care for herself and do light housek eeping, but somewhat restricted walking now, due to her back pain, and pain that goes down h er leg. States she could be a difficult intubation due to some problem she is unsure about with her esophagus. The is a note from 12/24/13 about her intubation for her last surgery f jerri Alfaro. docume nted in this encounter Plan of Treatment +--------+---------+ + + + | Date | Type | Specialty | Care Team | Description | +--------+---------+ + + + | 12/11/ | Office | Neurosurgery | Veto Hernandes, | | | 2019 | Visit | | STAFF APPRAISER [address] | | | | | | [address] | | | | | | [place] [address] | | | | | | [phone] | | | | | | | | +--------+---------+ + + + documented as of this encounter Procedures + +--------+ + + + | Procedure Name | Priori | Date/Time | Associated Diagnosis | Comments | | | ty | | | | + +--------+ + + + | EXTERNAL LAB: CBC | Routin | 01/22/2014 | | Results for this | | | e | 11:15 AM | | procedure are in the | | | | PDT | | results section. | + +--------+ + + + | MRSA NAAT | Timed | 01/22/2014 | | Results for this | | | | 11:15 AM | | procedure are in the | | | | PDT | | results section. | + +--------+ + + + | PTT | Routin | 01/22/2014 | | Results for this | | | e | 11:15 AM | | procedure are in the | | | | PDT | | results section. | + +--------+ + + + | PROTIME INR | Routin | 01/22/2014 | | Results for this | | | e | 11:15 AM | | procedure are in the | | | | PDT | | results section. | + +--------+ + + + | BASIC METABOLIC | Routin | 01/22/2014 | | Results for this | | PANEL | e | 11:15 AM | | procedure are in the | | | | PDT | | results section. | + +--------+ + + + | ECG 12 LEAD | Routin | 01/22/2014 | | Results for this | | | e | 11:11 AM | | procedure are in the | | | | PDT | | results section. | + +--------+ + + + documented in this encounter Results PTT (01/22/2014 11:15 AM PDT) + + + + + + | Component | Value | Ref Range | Performed | Pathologist | | | | | At | Signature | + + + + + + | aPTT, | 24Comment: Testing | 23 - 32 seconds | EXTERNAL | | | Patient | performed at [facility];[address] | | LAB | | | [address];[place], [place] | | | | | | [address] | | | | + + + + + + + + | Specimen | + + | Blood specimen | | (specimen) | + + + +---------+ + + | Performing | Address | City/State/Zipcode | Phone Number | | Organization | | | | + +---------+ + + | EXTERNAL LAB | | | | + +---------+ + + Protime INR (01/22/2014 11:15 AM PDT) + + + + + + | Component | Value | Ref Range | Performed | Pathologist | | | | | At | Signature | + + + + + + | INR | 1.0Comment: REFERENCE | | EXTERNAL | | | | RANGE:0.9 - 1.2 | | LAB | | | | NON-ANTICOAGULATED2.0 | | | | | | - 3.0 ALL OTHER | | | | | | THERAPEUTIC | | | | | | INDICATIONS2.5 - 3.5 | | | | | | MECHANICAL HEART VALVES, | | | | | | RECURRENT OR SYSTEMIC | | | | | | EMBOLISMTesting | | | | | | performed at [facility];[address] | | | | | | [address];[place] | | | | | | [address] | | | | + + + [...] + +---------+ + + External Lab: CBC (01/22/2014 11:15 AM PDT) + + + + + + | Component | Value | Ref Range | Performed | Pathologist | | | | | At | Signature | + + + + + + | WBC | 5.7Comment: Testing | 3.8 - 11.0 K/uL | EXTERNAL | | | | performed at [facility], [address] | | LAB | | | | [address], | | | | | | [place] [address] | | | | + + + + + + | Red Blood | 3.99Comment: Testing | 3.70 - 5.10 | EXTERNAL | | | Cells | performed at [facility], [address] | M/uL | LAB | | | Counted | [address], | | | | | | [place] [address] | | | | + + + + + + | Hemoglobin | 12.0Comment: Testing | 11.3 - 15.5 | EXTERNAL | | | | performed at [facility], [address] | g/dL | LAB | | | | [address], | | | | | | [place] [address] | | | | + + + + + + | Hematocrit, | 36.2Comment: Testing | 34.0 - 46.0 % | EXTERNAL | | | POC | performed at [facility], [address] | | LAB | | | | [address], | | | | | | [place] [address] | | | | + + + + + + | MCV | 90.9Comment: Testing | 80.0 - 100.0 fl | EXTERNAL | | | | performed at [facility], [address] | | LAB | | | | [address], | | | | | | [place] [address] | | | | + + + + + + | MCH | 30.1Comment: Testing | 27.0 - 34.0 pg | EXTERNAL | | | | performed at [facility], [address] | | LAB | | | | [address], | | | | | | [place] [address] | | | | + + + + + + | MCHC | 33.1Comment: Testing | 32.0 - 35.5 | EXTERNAL | | | | performed at [facility], [address] | g/dL | LAB | | | | [address], | | | | | | [place] [address] | | | | + + + + + + | RDW-CV | 48.6Comment: Testing | 37 - 53 fl | EXTERNAL | | | | performed at [facility], [address] | | LAB | | | | [address], | | | | | | [place] [address] | | | | + + + + + + | Platelet | 210Comment: Testing | 150 - 400 K/uL | EXTERNAL | | | Count | performed at [facility], [address] | | LAB | | | Plasma | [address], | | | | | | [place] [address] | | | | + + + + + + | MPV | 8.0Comment: Testing | fl | EXTERNAL | | | | performed at [facility], [address] | | LAB | | | | [address], | | | | | | [place] [address] | | | | + + + + + + | Differentia | AUTOMATEDComment: | | EXTERNAL | | | l Type | Testing performed at | | LAB | | | | [facility], [address] | | | | | | [place] | | | | | | [address] | | | | + + + + + + | % Segmented | 35.5Comment: Testing | % | EXTERNAL | | | | performed at [facility], [address] | | LAB | | | Neutrophils | [address], | | | | | | [place] [address] | | | | + + + + + + | % | 47.9Comment: Testing | % | EXTERNAL | | | Lymphocytes | performed at [facility], [address] | | LAB | | | | [address], | | | | | | [place] [address] | | | | + + + + + + | % Monocytes | 8.8Comment: Testing | % | EXTERNAL | | | | performed at [facility], [address] | | LAB | | | | [address], | | | | | | [place] [address] | | | | + + + + + + | % | 7.0Comment: Testing | % | EXTERNAL | | | Eosinophils | performed at [facility], [address] | | LAB | | | | [address], | | | | | | [place] [address] | | | | + + + + + + | % Basophils | 0.8Comment: Testing | % | EXTERNAL | | | | performed at [facility], [address] | | LAB | | | | [address], | | | | | | [place] [address] | | | | + + + + + + | Absolute | 2.0Comment: Testing | 1.9 - 7.4 K/uL | EXTERNAL | | | Segmented | performed at [facility], [address] | | LAB | | | Neutrophils | [address], | | | | | | [place] [address] | | | | + + + + + + | Absolute | 2.7Comment: Testing | 1.0 - 3.9 K/uL | EXTERNAL | | | Lymphocytes | performed at [facility], [address] | | LAB | | | | [address], | | | | | | [place] [address] | | | | + + + + + + | Absolute | 0.5Comment: Testing | 0 - 0.8 K/uL | EXTERNAL | | | Monocytes | performed at [facility], [address] | | LAB | | | | [address], | | | | | | [place] [address] | | | | + + + + + + | Absolute | 0.4Comment: Testing | 0 - 0.5 K/uL | EXTERNAL | | | Eosinophils | performed at [facility], [address] | | LAB | | | | [address], | | | | | | [place] [address] | | | | + + + + + + | Absolute | 0.0Comment: Testing | 0 - 0.1 K/uL | EXTERNAL | | | Basophils | performed at [facility], [address] | | LAB | | | | [address], | | | | | | [place] [address] | | | | + + + [...] + +---------+ + + Basic Metabolic Panel (01/22/2014 11:15 AM PDT) + + + + + + | Component | Value | Ref Range | Performed | Pathologist | | | | | At | Signature | + + + + + + | Na | 135Comment: Testing | 135 - 143 | EXTERNAL | | | | performed at [facility], [address] | mmol/L | LAB | | | | [address], | | | | | | [place] [address] | | | | + + + + + + | K | 4.2Comment: Testing | 3.5 - 4.9 | EXTERNAL | | | | performed at [facility], [address] | mmol/L | LAB | | | | [address], | | | | | | [place] [address] | | | | + + + + + + | Cl | 108Comment: Testing | 99 - 109 mmol/L | EXTERNAL | | | | performed at [facility], [address] | | LAB | | | | [address], | | | | | | [place] [address] | | | | + + + + + + | CO2 | 25Comment: Testing | 23 - 32 mmol/L | EXTERNAL | | | | performed at [facility], [address] | | LAB | | | | [address], | | | | | | [place] [address] | | | | + + + + + + | Anion Gap | 6Comment: Testing | 5 - 20 mmol/L | EXTERNAL | | | | performed at [facility], [address] | | LAB | | | | [address], | | | | | | [place] [address] | | | | + + + + + + | Glucose, | 113 (H)Comment: Testing | 65 - 99 mg/dL | EXTERNAL | | | Fasting | performed at [facility], [address] | | LAB | | | | [address], | | | | | | [place] [address] | | | | + + + + + + | BUN | 16Comment: Testing | 8 - 25 mg/dL | EXTERNAL | | | | performed at [facility], [address] | | LAB | | | | [address], | | | | | | [place] [address] | | | | + + + + + + | Creatinine | 0.76Comment: Testing | 0.50 - 1.00 | EXTERNAL | | | | performed at [facility], [address] | mg/dL | LAB | | | | [address], | | | | | | [place] [address] | | | | + + + + + + | BUN/Creatin | 21Comment: Testing | | EXTERNAL | | | ine Ratio | performed at [facility], [address] | | LAB | | | | [address], | | | | | | [place] [address] | | | | + + + + + + | Calcium | 9.7Comment: Testing | 8.5 - 10.2 | EXTERNAL | | | | performed at [facility], [address] | mg/dL | LAB | | | | [address], | | | | | | [place] [address] | | | | + + + [...] | | | | | | at [facility], [address] | | | | | | [address], | | | | | | [place] [address] | | | | + + + + + + + + | Specimen | + + | Blood specimen | | (specimen) | + + + +---------+ + + | Performing | Address | City/State/Zipcode | Phone Number | | Organization | | | | + +---------+ + + | EXTERNAL LAB | | | | + +---------+ + + MRSA NAAT (01/22/2014 11:15 AM PDT) + + | Specimen | + + | | + + + + + | Narrative | Performed At | + + + | [facility](NOSE) | EXTERNAL LAB | | Testing performed at [facility];[address] [place] [address];[place] [address] MRSA PCR | | | NEGATIVE Testing performed at | | | [address];[place] [address] | | + + + + +---------+ + + | Performing | Address | City/State/Zipcode | Phone Number | | Organization | | | | + +---------+ + + | EXTERNAL LAB | | | | + +---------+ + + ECG 12 lead (01/22/2014 11:11 AM PDT) + + + + + + | Component | Value | Ref Range | Performed | Pathologist | | | | | At | Signature | + + + + + + | DIAGNOSIS: | Normal sinus | | EXTERNAL | | | | rhythmNormal ECGWhen | | LAB | | | | compared with ECG of | | | | | | 19-SEP-2013 12:58,No | | | | | | significant change was | | | | | | foundConfirmed by GENESIS, | | | | | | CHRISTOPHER ([id number]) on 01/22/2014 | | | | | | 9:39:17 PM | | | | + + + + + + + + | Specimen | + + | | + + + + + | Narrative | Performed At | + + + | Historically converted procedure from [facility] | EXTERNAL LAB | + + + + +---------+ + + | Performing | Address | City/State/Zipcode | Phone Number | | Organization | | | | + +---------+ + + | EXTERNAL LAB | | | | + +---------+ + + documented in this encounter Visit Diagnoses + + | Diagnosis | + + | Thoracic or lumbosacral neuritis or radiculitis, unspecified | + + documented in this encounter"
--- OUTSIDE RECORDS SUMMARY | ~2019-12-01 | XMS | Encounter Summary ---
Demographics + + + | Address | [address] | | | [place] [address] | + + + | Home Phone | | + + + | Preferred Language | Unknown | + + + | Marital Status | Single | + + + | Protestant Affiliation | 1009 | + + + | Race | Unknown | + + + | Ethnic Group | Unknown | + + + Author + + + | Author | [facility] | | | and [place] | + + + | Organization | [facility] | | | and [place] [...] Team Providers + +------+ + | Care Longwall Shearer Operator Name | Role | Phone | [...] | | | | low back | [address] | [address] | | | | | pain with | [place], | [place], | | | | | bilateral | [place] [address] | [place] [address] | | | | | sciatica | Phone: | Phone: | | | | | Cervicalgia | [phone] | [phone] | | | | | Cervical | Fax: | Fax: | | | | | radiculopath | [phone] | [phone] | | | | | y Facet [...] PHYSIATRY [address] | MD [address] | low back pain with | | | | [address] | [place], [place] | bilateral sciatica | | | | [place], [place] | [address] | (Primary Dx); | | | | [address] | | Cervicalgia; | | | | [phone] | | Cervical | | | | | | radiculopathy; Facet | | | | | | arthritis of | | | | | | cervical region | | | | | | ([facility]) | +--------+ + + + [...] | | 2020 | Visit | | NONPROFIT MANAGER [address] | [address] | | [address] | | | | | | [place] [address] | | | | | | [phone] | | | | | | | [...] region | | | | | | ([facility]) | | + + +--------+ + + [...]
--- OUTSIDE RECORDS SUMMARY | ~2019-12-01 | XMS | Encounter Summary ---
Demographics + + + | Address | [address] | | | [place] [address] | + + + | Home Phone | | + + + | Preferred Language | Unknown | + + + | Marital Status | Single | + + + | Shinto Affiliation | 1009 | + + + | Race | Unknown | + + + | Ethnic Group | Unknown | + + + Author + + + | Author | [facility] | | | and [place] | + + + | Organization | [facility] | | | and [place] | [...] Team Providers + +------+ + | Care Edge Blacker Name | Role | Phone | + +------+ + | Hayden Acevedo MD | PCP | | + +------+ + Encounter Details +--------+ + + + + | Date | Type | Department | Care Team | Description | +--------+ + + + + | 12/11/ | Hospital | [facility] | Conversion | | | 2014 | Encounter | [facility] | Transaction, | | | | | CLINIC [address] | Provider Unknown | | | | | [place], [place] | [phone] | | | | | [phone] | (Fax) | | | | | [phone] | | | +--------+ + + + [...] | 12/11/ | Office | Neurosurgery | [place], [place] C, | | | 2019 | Visit | | [employer]TE[employer] 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 [address] | | | | | | [address] | | | | | | [place] [address] | | | | | | [phone] | | | | | | | [...] At | + + + | NOHEMI Roblero OMKAR XR CHEST 2 VIEW FRONTAL AND LATERAL [...] Conversion - 01/18/2019 1:22 AM PDT NOHEMI HOLLINS CHEST 2 VIEW FRONTAL | | AND [...] LAB | | | | Blvd;[place] [address] | | | | + + + + + + | Antibody | NEGATIVE | | EXTERNAL | | | Screen | | | LAB | | + + + + + + | Antibody | Testing performed at | | EXTERNAL | | | Screen | [facility];[address] | | LAB | | | | Bl;[place] [address] | | | | + + + [...] | | | | | performed at [facility], [address] | | | | | | [facility], | | | | | | [place] [address] | | | | + + + [...] | | | | | [place] [address] | | | | + + + + + + | Red Blood | 4.38Comment: Testing | 3.70 - 5.10 | EXTERNAL | | | Cells | performed at [facility], [address] | M/uL | LAB | | | Counted | [address], | | | | | | [place] [address] | | | | + + + + + + | Hemoglobin | 13.1Comment: Testing | 11.3 - 15.5 | EXTERNAL | | | | performed at [facility], [address] | g/dL | LAB | | | | [address], | | | | | | [place] [address] | | | | + + + + + + | Hematocrit, | 40.3Comment: Testing | 34.0 - 46.0 % | EXTERNAL | | | POC | performed at [facility], [address] | | LAB | | | | [address], | | | | | | [place] [address] | | | | + + + + + + | MCV | 92.1Comment: Testing | 80.0 - 100.0 fl | EXTERNAL | | | | performed at [facility], [address] | | LAB | | | | [address], | | | | | | [place] [address] | | | | + + + + + + | MCH | 29.9Comment: Testing | 27.0 - 34.0 pg | EXTERNAL | | | | performed at [facility], [address] | | LAB | | | | [address], | | | | | | [place] [address] | | | | + + + + + + | MCHC | 32.5Comment: Testing | 32.0 - 35.5 | EXTERNAL | | | | performed at [facility], [address] | g/dL | LAB | | | | [address], | | | | | | [place] [address] | | | | + + + + + + | RDW-CV | 48.1Comment: Testing | 37 - 53 fl | EXTERNAL | | | | performed at [facility], [address] | | LAB | | | | [address], | | | | | | [place] [address] | | | | + + + + + + | Platelet | 271Comment: Testing | 150 - 400 K/uL | EXTERNAL | | | Count | performed at [facility], [address] | | LAB | | | Plasma | [address], | | | | | | [place] [address] | | | | + + + + + + | MPV | 8.8Comment: Testing | fl | EXTERNAL | | | | performed at [facility], [address] | | LAB | | | | [address], | | | | | | [place] [address] | | | | + + + + + + | Differentia | AUTOMATEDComment: | | EXTERNAL | | | l Type | Testing performed at | | LAB | | | | [facility], [address] | | | | | | [place] | | | | | | [address] | | | | + + + + + + | % Segmented | 52.9Comment: Testing | % | EXTERNAL | | | | performed at [facility], [address] | | LAB | | | Neutrophils | [address], | | | | | | [place] [address] | | | | + + + + + + | % | 33.3Comment: Testing | % | EXTERNAL | | | Lymphocytes | performed at [facility], [address] | | LAB | | | | [place] [place], | | | | | | [place] [address] | | | | + + + + + + | % Monocytes | 7.9Comment: Testing | % | EXTERNAL | | | | performed at [facility], [address] | | LAB | | | | [address], | | | | | | [place] [address] | | | | + + + + + + | % | 5.1Comment: Testing | % | EXTERNAL | | | Eosinophils | performed at [facility], [address] | | LAB | | | | [address], | | | | | | [place] [address] | | | | + + + + + + | % Basophils | 0.8Comment: Testing | % | EXTERNAL | | | | performed at [facility], [address] | | LAB | | | [address], | | | | | | [place] [address] | | | | + + + + + + | Absolute | 3.6Comment: Testing | 1.9 - 7.4 K/uL | EXTERNAL | | | Segmented | performed at [facility], [address] | | LAB | | | Neutrophils | [address], | | | | | | [place] [address] | | | | + + + + + + | Absolute | 2.3Comment: Testing | 1.0 - 3.9 K/uL | EXTERNAL | | | Lymphocytes | performed at [facility], [address] | | LAB | | | | [address], | | | | | | [place] [address] | | | | + + + + + + | Absolute | 0.5Comment: Testing | 0 - 0.8 K/uL | EXTERNAL | | | Monocytes | performed at [facility], [address] | | LAB | | | | [address], | | | | | | [place] [address] | | | | + + + + + + | Absolute | 0.3Comment: Testing | 0 - 0.5 K/uL | EXTERNAL | | | Eosinophils | performed at [facility], [address] | | LAB | | | | [address], | | | | | | [place] [address] | | | | + + + + + + | Absolute | 0.1Comment: Testing | 0 - 0.1 K/uL | EXTERNAL | | | Basophils | performed at [facility], [address] | | LAB | | | | [address], | | | | | | [place] [address] | | | | + + + [...] | | | | | [place] [address] | | | | + + + + + + | K | 3.5Comment: Testing | 3.5 - 4.9 | EXTERNAL | | | | performed at [facility], [address] | mmol/L | LAB | | | | [address], | | | | | | [place] [address] | | | | + + + + + + | Cl | 108Comment: Testing | 99 - 109 mmol/L | EXTERNAL | | | | performed at [facility], [address] | | LAB | | | | [address], | | | | | | [place] [address] | | | | + + + + + + | CO2 | 27Comment: Testing | 23 - 32 mmol/L | EXTERNAL | | | | performed at [facility], [address] | | LAB | | | | [address], | | | | | | [place] [address] | | | | + + + + + + | Anion Gap | 6Comment: Testing | 5 - 20 mmol/L | EXTERNAL | | | | performed at [facility], [address] | | LAB | | | | [address], | | | | | | [place] [address] | | | | + + + + + + | Glucose, | 104 (H)Comment: Testing | 65 - 99 mg/dL | EXTERNAL | | | Fasting | performed at [facility], [address] | | LAB | | | | [address], | | | | | | [place] [address] | | | | + + + + + + | BUN | 21Comment: Testing | 8 - 25 mg/dL | EXTERNAL | | | | performed at [facility], [address] | | LAB | | | | [address], | | | | | | [place] [address] | | | | + + + + + + | Creatinine | 0.84Comment: Testing | 0.50 - 1.00 | EXTERNAL | | | | performed at [facility], [address] | mg/dL | LAB | | | | [address], | | | | | | [place] [address] | | | | + + + + + + | BUN/Creatin | 25Comment: Testing | | EXTERNAL | | | ine Ratio | performed at [facility], [address] | | LAB | | | | [address], | | | | | | [place] [address] | | | | + + + + + + | Calcium | 10.1Comment: Testing | 8.5 - 10.2 | EXTERNAL | | | | performed at [facility], [address] | mg/dL | LAB | | | | [address], | | | | | | [place] [address] | | | | + + + + + + | Protein, | 8.2Comment: Testing | 6.3 - 8.2 g/dL | EXTERNAL | | | Total | performed at [facility], [address] | | LAB | | | | [address], | | | | | | [place] [address] | | | | + + + + + + | Albumin | 3.8Comment: Testing | 3.6 - 5.0 g/dL | EXTERNAL | | | | performed at [facility], [address] | | LAB | | | | [address], | | | | | | [place] [address] | | | | + + + + + + | Globulin | 4.4Comment: Testing | 1.3 - 4.9 g/dL | EXTERNAL | | | | performed at [facility], [address] | | LAB | | | | [address], | | | | | | [place] [address] | | | | + + + + + + | A/G Ratio | 0.9 (L)Comment: Testing | 1.0 - 2.4 | EXTERNAL | | | | performed at [facility], [address] | | LAB | | | [address], | | | | | | [place] [address] | | | | + + + + + + | Bilirubin | 0.2Comment: Testing | 0.1 - 1.5 mg/dL | EXTERNAL | | | Total | performed at [facility], [address] | | LAB | | | | [address], | | | | | | [place] [address] | | | | + + + + + + | ALP, | 94Comment: Testing | 35 - 115 U/L | EXTERNAL | | | External | performed at [facility], [address] | | LAB | | | | [address], | | | | | | [place] [address] | | | | + + + + + + | AST | 126 (H)Comment: Testing | 10 - 45 U/L | EXTERNAL | | | | performed at [facility], [address] | | LAB | | | | [address], | | | | | | [place] [address] | | | | + + + + + + | ALT | 164 (H)Comment: Testing | 10 - 65 U/L | EXTERNAL | | | | performed at [facility], [address] | | LAB | | | | [address], | | | | | | [place] [address] | | | | + + + [...] | | | | | | [address], | | | | | | [place] [address] | | | | + + + [...]
--- OUTSIDE RECORDS SUMMARY | ~2019-12-01 | XMS | Encounter Summary ---
Demographics + + + | Address | [address] | | | [place] [address] | + + + | Home Phone | | + + + | Preferred Language | Unknown | + + + | Marital Status | Single | + + + | Mandaen Affiliation | 1009 | + + + | Race | Unknown | + + + | Ethnic Group | Unknown | + + + Author + + + | Author | [facility] | | | and [place] | + + + | Organization | [facility] | [...] Team Providers + +------+ + | Care Cable Lacer Name | Role | Phone | + +------+ + | Naren Nina PA-C | PCP | | + +------+ + Encounter Details +--------+ + + + + | Date | Type | Department | Care Team | Description | +--------+ + + + + | 02/10/ | Orders Only | [facility] | [place], | | | 2013 | | INFECTIOUS DISEASE | MD Del[address]ah [address] | | | | | [address] | [place] | | | | | [place], [place] | [place] [address] | | | | | [address] | [phone] | | | | | [phone] | | | +--------+ + + + [...] documented as of this encounter Progress Notes Danielle Delilah S - 10/22/2013 2:33 PM PDTFormatting of this note might be different fr om the original. Progress Notes by Delilah Santos MD at 10/22/13 7305 Author: Delilah Santos MD Service: (none) Author Type: Physician Filed: 10/22/13 8939 Encounter Date: 10/22/2013 Status: Signed [place] Administrator: Delilah Santos MD (Physician) Subjective: Patient ID: Bisi Becker is a 53 y.o. female. HPI The patient has been referred by ANURAG Ovalles regarding chronic hepatitis C. Past medical history, medications, allergies, social and family history have been reviewed. The patient has a history of bipolar affective disorder, recent hospital admission to [facility] in September for polypharmacy resulting into altered [...] Dye. She will also follow-up with at [facility] on November 13 and according to the [...] Next appt: 10/29/2013 at 9:35AM with ANURAG OVALLES Dx: Infectious disease Value HCV Genotype TYPE 2B Comments: HCV GENOTYPE WAS DETERMINED BY RT-PCR AND FERROCENE LABELLED PROBE. THIS ASSAY DETECTS AND DIFFERENTIATES THE 6 MAJOR HCV GENOTYPES AND THEIR MOST COMMON SUBTYPES (1A, 1B, 2A/C, 2B, 3, 4, 5, 6). THIS TEST WAS DEVELOPED AND ITS PERFORMANCE CHARACTERISTICS DETERMINED BY [facility] DIVISION OF LABORATORY MEDICINE. IT HAS NOT BEEN APPROVED OR CLEARED BY THE [employer]. THIS TEST SHOULD NOT BE REGARDED INVESTIGATIONAL OR FOR RESEARCH USE. Specimen Collected: 10/08/13 10:40 AM HCV rachell PCR/probe Status: Final result MyChart: Released Next appt: 10/29/2013 at 9:35AM with ANURAG OVALLES Dx: Infectious disease Value HCV Genotype TYPE 2B Comments: HCV GENOTYPE WAS DETERMINED BY RT-PCR AND FERROCENE LABELLED PROBE. THIS ASSAY DETECTS AND DIFFERENTIATES THE 6 MAJOR HCV GENOTYPES AND THEIR MOST COMMON SUBTYPES (1A, 1B, 2A/C, 2B, 3, 4, 5, 6). THIS TEST WAS DEVELOPED AND ITS PERFORMANCE CHARACTERISTICS DETERMINED BY [facility] DIVISION OF LABORATORY MEDICINE. IT HAS NOT [...] Next appt: 10/29/2013 at 9:35AM with ANURAG OVALLES Dx: Infectious disease Value Range Hep A Total Ab NON REACTIVE NR^NON REACTIVE Specimen Collected: 10/08/13 10:40 AM Impression 1. Mild splenomegaly. 2. Unremarkable liver. 3. Cholecystectomy. 4. No biliary tract dilatation. 5. Gas obscures aorta, pancreas. abdomen complete [[id number]] Assessment and Plan: Visit Diagnoses and Associated [...] her primary care provider or through the Health Departmen t. I will defer her bronchitis/COPD management with ANURAG Ovalles. documented in this encounter Miscellaneous Notes Miscellaneous - Delilah Santos - 10/22/2013 2:48 PM PDT Patient Instructions by Delilah Santos MD at 10/22/13 8446 Author: Delilah Santos MD Service: (none) Author Type: Physician Filed: 10/22/13 0959 Encounter Date: 10/22/2013 Status: Addendum [place] Administrator: Delilah Santos MD (Physician) Related Notes: Original Note by Delilah Santos MD (Physician) filed at 10/22/13 9417 1. Do Fibrosure 2. Obtain hepatitis A vaccine (2 shots a month apart) and hepatitis B vaccine series eithe r at PCP or Health Dept. 3. Avoid alcohol, illicit drugs; continue to cut down on smoking documented in this encounter Plan of Treatment +--------+---------+ + + + | Date | Type | Specialty | Care Team | Description | +--------+---------+ + + + | 12/11/ | Office | Neurosurgery | [place], | | | 2020 | Visit | | ANURAG [address] | | | | | | [place] [address] | | | | | | [phone] | | | | | | | [...] | | | FibroSURE | performed by [facility], | | LAB | | | Results | [address], | | | | | | [place] [address] | | | | + + + + + + | FIBROSURE | F1 TO A2Sbessay: Testing | | EXTERNAL | | | STAGE | performed by [facility], | | LAB | | | | [address], | | | | | | [facility] [address] | | | | + + + + + + | Necroinflam | 0.33 (H)Comment: Testing | 0.00 - 0.17 | EXTERNAL | | | mat | performed by [facility], | | LAB | | | Activity | [address] [facility] [address] [facility], | | | | | Score | [facility] [address] | | | | + + + + + + | Necroinflam | SEE BELOWComment: A1, | | EXTERNAL | | | mat | MINIMAL ACTIVITYTesting | | LAB | | | Activity | performed by [facility], | | | | | Grade | [address] [facility], | | | | | | [facility] [address] | | | | + + + + + + | Alpha | 290 (H)Comment: Testing | 110 - 276 mg/dL | EXTERNAL | | | 2-Macroglob | performed by [facility], | | LAB | | | ulins, Qn | [address] [facility] [address], | | | | | | [place] [address] | | | | + + + + + + | Haptoglobin | 134Comment: Testing | 34 - 200 mg/dL | EXTERNAL | | | | performed by [facility], | | LAB | | | | [address] [facility] [address], | | | | | | [place] [address] | | | | + + + + + + | Apolipoprot | 127Comment: Testing | 110 - 205 mg/dL | EXTERNAL | | | ein A-1 | performed by [facility], | | LAB | | | | [address] [facility] [address], | | | | | | [place] [address] | | | | + + + + + + | Bilirubin, | 0.2Comment: Testing | 0.0 - 1.2 mg/dL | EXTERNAL | | | Total | performed by [facility], | | LAB | | | | [address] [facility], | | | | | | [place] [address] | | | | + + + + + + | Gamma | 119 (H)Comment: Testing | 0 - 60 IU/L | EXTERNAL | | | Glutamyl | performed by [facility], | | LAB | | | Transferase | [address], | | | | | | [facility] [address] | | | | + + + + + + | ALT (SGPT) | 53 (H)Comment: Testing | 0 - 40 IU/L | EXTERNAL | | | P5P | performed by [facility], | | LAB | | | | [address], | | | | | | [facility] [address] | | | | + + + [...] [address], | | | | | | [facility] [address] | | | | + + + [...] | | | | | | [facility] | | | | | | [place] | | | | | | [address] | | | | + + + + + + | Comment | SEE BELOWComment: THIS | | EXTERNAL | | | | TEST WAS DEVELOPED AND | | LAB | | | | ITS PERFORMANCE | | | | | | CHARACTERISTICS | | | | | | DETERMINEDBY [facility] [facility] | | | | | | [...] THE | | | | | | [facility] | | | | | | BIOLOGY AND PATHOLOGY | | | | | | CUSTOMER SERVICE | | | | | | DEPARTMENT | | | | | | [phone].Testing | | | | | | performed by [facility], | | | | | | [address], | | | | | | [facility] [address] | | | | + + + [...]
--- OUTSIDE RECORDS SUMMARY | ~2019-12-01 | XMS | Encounter Summary ---
Demographics + + + | Address | [address] | | | [place] [address] | + + + | Home Phone | | + + + | Preferred Language | Unknown | + + + | Marital Status | Single | + + + | Moravian Affiliation | [id number] | + + + | Race | Unknown | + + + | Ethnic Group | Unknown | + + + Author + + + | Author | [facility] | | | and [place] | + + + | Organization | [facility] | | | and [place] [...] Team Providers + +------+ + | Care Cold Mill Operator Name | Role | Phone | + +------+ + | Hayden Acevedo MD | PCP | | + +------+ + Encounter Details +--------+ + + + + | Date | Type | Department | Care Team | Description | +--------+ + + + + | 08/19/ | Hospital | [facility] | Conversion | LBP radiating to | | 2013 | Encounter | [facility] | Transaction, | left leg | | | | [address] | Provider Unknown | | | | | [place], [place] | | | | | | [address] | (Fax) | | | | | [phone] | | | +--------+ + + + [...] | | 2020 | Visit | | SUMMER CHILD CAREGIVER [address] | [address] | | | | | | [place] [address] | | | | | | [phone] | | | | | | | | +--------+---------+ + + + documented as of this encounter Procedures + +--------+ + + + | Procedure Name | Priori | Date/Time | Associated Diagnosis | Comments | | | ty | | | | + +--------+ + + + | MRI LUMBAR SPINE W | Routin | 08/19/2013 | | Results for this | | WO CONTRAST | e | 5:38 PM | | procedure are in the | | | | PDT | | results section. | + +--------+ + + + documented in this encounter Results MRI Lumbar Spine w wo Contrast (08/19/2013 5:38 PM PDT) + + | Specimen | + + | | + + + + + | Impressions | Performed At | + + + | 1. Multilevel degenerative change of the lumbar spine, greatest | | | and severe at L4-5 with moderate to severe central canal stenosis. 2. | | | Multilevel neural foraminal narrowing, greatest at L5-S1 on the | | | left side. Correlate for impingement of exiting left L5 nerve root. | | | | | + + + + + + | Narrative | Performed At | + + + | [facility] LUMBAR SPINE W WO CONTRAST HISTORY: 53 | | | years. Female. Back pain with bilateral leg pain. TECHNIQUE: | | | Multiplanar, multisequence MRI of the lumbar spine was performed prior | | | to and following uneventful intravenous administration of 21 cc | | | MultiHance. COMPARISON: Lumbar spine x-ray dated 08/07/2013 | | | FINDINGS: Straightening of the normal lumbar lordosis. The vertebral | | | heights are maintained. The conus medullaris is normal in caliber and | | | signal and terminates the level of L1-2. Mild levoconvex curvature | | | of the lumbar spine. L1-2: Negative. L2-3: Mild disc space | | | narrowing. Mild diffuse disc bulge with moderate bilateral | | | degenerative facet disease. No central canal stenosis or neural | | | foraminal narrowing. L3-4: Mild disc space narrowing. Minimal disc | | | bulge with moderate bilateral degenerative facet disease and mild | | | prominence of the posterior epidural fat causing mild central canal | | | stenosis with the thecal sac measuring 9 mm in AP dimension. Bilateral | | | neural foramina are patent. L4-5: Severe disc space narrowing | | | with degenerative endplate change and endplate irregularity, greatest | | | in the right side . Mild edema and enhancement within the L4 and L5 | | | vertebral bodies centered about the L4-5 endplates that is felt to be | | | degenerative in nature. No fluid seen within the intervertebral | | | disc. No epidural abscess or paraspinal fluid collection. Posterior | | | disc spur complex with moderate bilateral degenerative facet disease | | | and mild prominence of posterior epidural fat causing moderate to | | | severe central canal stenosis with thecal sac measuring 6.2 mm in AP | | | dimension. There is narrowing of both lateral recesses, correlate for | | | impingement of the traversing bilateral L5 nerve roots. Moderate right | | | and mild left neural foraminal narrowing with slight sparing of the | | | perineural fat. L5-S1: Severe disc space narrowing with | | | degenerative endplate change and endplate spurring, greatest on the | | | left side. Posterior disc spur complex with mild bilateral | | | degenerative facet disease causing mild left and moderate to severe | | | right neural foraminal narrowing. Correlate for impingement of the | | | exiting left L5 nerve root. Mild narrowing of the left lateral recess | | | without compression of the traversing left S1 nerve root. No | | | significant central canal stenosis. | | + + + + + | Procedure Note | + + | Dhiraj, Rad Conversion - 01/18/2019 1:22 AM PDT [facility] LUMBAR SPINE W WO | | CONTRAST HISTORY:53 years. Female. Back pain with bilateral leg pain. | | TECHNIQUE:Multiplanar, multisequence MRI of the lumbar spine was performed prior to and | | following uneventful intravenous administration of 21 cc MultiHance. COMPARISON:Lumbar | | spine x-ray dated 08/07/2013 FINDINGS:Straightening of the normal lumbar lordosis. The | | vertebral heights are maintained. The conus medullaris is normal in caliber and signal | | and terminates the level of L1-2. Mild levoconvex curvature of the lumbar spine. L1-2: | | Negative. L2-3: Mild disc space narrowing. Mild diffuse disc bulge with moderate | | bilateral degenerative facet disease. No central canal stenosis or neural foraminal | | narrowing. L3-4: Mild disc space narrowing. Minimal disc bulge with moderate bilateral | | degenerative facet disease and mild prominence of the posterior epidural fat causing | | mild central canal stenosis with the thecal sac measuring 9 mm in AP dimension. | | Bilateral neural foramina are patent. L4-5: Severe disc space narrowing with | | degenerative endplate change and endplate irregularity, greatest in the right side . | | Mild edema and enhancement within the L4 and L5 vertebral bodies centered about the L4-5 | | endplates that is felt to be degenerative in nature. No fluid seen within the | | intervertebral disc. No epidural abscess or paraspinal fluid collection. Posterior disc | | spur complex with moderate bilateral degenerative facet disease and mild prominence of | | posterior epidural fat causing moderate to severe central canal stenosis with thecal sac | | measuring 6.2 mm in AP dimension. There is narrowing of both lateral recesses, | | correlate for impingement of the traversing bilateral L5 nerve roots. Moderate right and | | mild left neural foraminal narrowing with slight sparing of the perineural fat. L5-S1: | | Severe disc space narrowing with degenerative endplate change and endplate spurring, | | greatest on the left side. Posterior disc spur complex with mild bilateral degenerative | | facet disease causing mild left and moderate to severe right neural foraminal narrowing. | | Correlate for impingement of the exiting left L5 nerve root. Mild narrowing of the left | | lateral recess without compression of the traversing left S1 nerve root. No significant | | central canal stenosis. IMPRESSION: 1. Multilevel degenerative change of the lumbar | | spine, greatest and severe at L4-5 with moderate to severe central canal stenosis.2. | | Multilevel neural foraminal narrowing, greatest at L5-S1 on the left side. Correlate for | | impingement of exiting left L5 nerve root. | |foraminal narrowing. Correlate for impingement of the exiting left L5 nerve root. Mild narr owing of the left lateral recess without compression of the traversing left S1 nerve root. N o significant central canal stenosis. | | | |IMPRESSION: | |1. Multilevel degenerative change of the lumbar spine, greatest and severe at L4-5 with mo derate to severe central canal stenosis. | |2. Multilevel neural foraminal narrowing, greatest at L5-S1 on the left side. Correlate fo r impingement of exiting left L5 nerve root. | | | | | + + documented in this encounter Visit Diagnoses + + | Diagnosis | + + | LBP radiating to left leg Lumbago | + + documented in this encounter"
--- OUTSIDE RECORDS SUMMARY | ~2019-12-01 | XMS | Encounter Summary ---
Demographics + + + | Address | [address] | | | [place] [address] | + + + | Home Phone | | + + + | Preferred Language | Unknown | + + + | Marital Status | Single | + + + | Samaritan Affiliation | 1009 | + + + | Race | Unknown | + + + | Ethnic Group | Unknown | + + + Author + + + | Author | [facility] | | | and [place] | + + + | Organization | [facility] | | | and [place] | [...] Team Providers + +------+ + | Care Informatics Spec Name | Role | Phone | + +------+ + | Naren Nina PA-C | PCP | | + +------+ + Encounter Details +--------+ + + + + | Date | Type | Department | Care Team | Description | +--------+ + + + + | 03/20/ | Orders Only | [facility] | DyeMisha John, | | | 2013 | | ASSOCIATED | [address] | | | | | [facility] | [address], | | | | | [address] | [place] [address] | | | | | [address], | [phone] | | | | | [place] [address] | | | | | | [phone] | | | +--------+ + + + [...] | | 2019 | Visit | | 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
--- OUTSIDE RECORDS SUMMARY | ~2019-12-01 | XMS | Encounter Summary ---
Demographics + + + | Address | [address] | | | [place] [address] | + + + | Home Phone | | + + + | Preferred Language | Unknown | + + + | Marital Status | Single | + + + | Anabaptist Affiliation | [id number] | + + + | Race | Unknown | + + + | Ethnic Group | Unknown | + + + Author + + + | Author | [facility] | | | and [place] | + + + | Organization | [facility] | | | and [place] [...] Providers + +------+ + | Care Senior Customer Service Representative Name | Role | Phone | + +------+ + | Hayden Acevedo MD | PCP | | + +------+ + Encounter Details +--------+ + + + + | Date | Type | Department | Care Team | Description | +--------+ + + + + | 12/11/ | Hospital | [facility] | Conversion | | | 2014 | Encounter | [facility] | Transaction, | | | | | [address] | Provider Unknown | | | | | [place], [place] | | | | | | [address] | (Fax) | | | | | [phone] | | | +--------+ + + + [...] B | | | | | | [place] [address] | | | | | | [phone] | | | | | | | | +--------+---------+ + + + documented as of this encounter Visit Diagnoses Not on filedocumented in this encounter"
--- OUTSIDE RECORDS SUMMARY | ~2019-12-01 | XMS | Encounter Summary ---
Demographics + + + | Address | [address] | | | [place] [address] | + + + | Home Phone | | + + + | Preferred Language | Unknown | + + + | Marital Status | Single | + + + | Rastafarian Affiliation | 1009 | + + + | Race | Unknown | + + + | Ethnic Group | Unknown | + + + Author + + + | Author | [facility] | | | and [place] | + + + | Organization | [facility] [...] Team Providers + +------+ + | Care Refrigeration System Installer Name | Role | Phone | + +------+ + | Hayden Acevedo MD | PCP | | + +------+ + Encounter Details +--------+ + + + + | Date | Type | Department | Care Team | Description | +--------+ + + + + | 10/08/ | Hospital | [facility] | Conversion | Abdominal pain | | 2014 | Encounter | [facility] | Transaction, | | | | | [address] | Provider Unknown | | | | | [address] | [phone] | | | | | [place], [place] | | | | | | [address] | | | | | | [phone] | | | +--------+ + + + [...] | | 2020 | Visit | | 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 [...]
--- OUTSIDE RECORDS SUMMARY | ~2019-12-01 | XMS | Encounter Summary ---
Demographics + + + | Address | [address] | | | [place] [address] | + + + | Home Phone [...] | [facility]ly [facility] | | | and [place] | + + + | Organization | [facility] | | [...] Team Providers + +------+ + | Care Hand Hardener Name | Role | Phone | + +------+ + | Hayden Acevedo MD | PCP | | + +------+ + Encounter Details +--------+ + + + + | Date | Type | Department | Care Team | Description | +--------+ + + + + | 01/10/ | Hospital | [facility] | Tha Calderon, | Acute renal failure, | | 2015 - | Encounter | [facility] | [address] | unspecified acute | | | | CARE FLO[address] | [place] [address] | renal failure type | | 01/13/ | | [address] | [phone] | (HCC); Essential | | 2014 | | [place], [place] | | hypertension; | | | | [address] | | Leukocytosis, | | | | [phone] | | unspecified; | | | | [...] Discharge Summaries by Tico Suarez MD at 01/13/151438 Author: Tico Suarez MD Service: Hospitalist Author Type: Physician Filed: 01/13/152054 Date of Service: 01/13/151438 Status: Signed Affiliate Marketing Specialist: Tico Suarez MD (Physician) Related Notes: Original Note by Tico Suarez MD (Physician) filed at 01/13/15 14 55 [facility] Service: Hospitalist Physician Discharge Summary Pt: Bisi Espitia AGE/SEX: 54 y.o. female ROOM: 6608/6608-1 PCP: Naren Nina (General) : 1960 Admit date: 01/10/2015 Discharge date and time: 01/13/15 Admitting Physician: Tha Calderon MD Discharge Physician: Tico Suarez MD [...] was negative for granuloma or dysplasia. Mark t slowly improved with resolution of abdominal pain, [...] 311* Invalid input(s): LABALBU Recent Labs Lab 01/13/1535 01/12/15 0405 01/11/15 0740 MG 1.6* 1.7 1.7 Recent Labs Lab 01/10/15 0903 AMYLASE 54 No results for input(s): PHART, PO2ART, SOA4YVS, F7HGVTDI, BEART in the last 168 hours. Recent [...] with you. STOP taking these medications ergocalciferol 38151 UNITS capsule Commonly known as: DRISDOL famotidine [...] documented as of this encounter Progress Notes Apollo Mas - 01/12/2015 8:48 PM PDT Progress Notes by Apollo Mas MD at 01/12/152047 Author: Apollo Mas MD Service: Gastroenterology Author Type: Physician Filed: 01/12/152053 Date of Service: 01/12/152047 Status: Signed Affiliate Marketing Specialist: Apollo Mas MD (Physician) [facility] Service: Gastroenterology Progress Note Hospital Day: [...] Oral Nightly Continuous Infusions pantoprazole 8 mg/hr (01/12/151945) sodium chloride (IV) 125 mL/hr at 01/12/15 [...] hemorrhoids . Disposition: Code Status: Full Code APOLLO MAS MD 01/12/2015 iryani, Tico Rain MD - 01/12/2015 6:56 PM PDT Progress Notes by Tico Suarez MD at 01/12/151855 Author: Tico Suarez MD Service: Hospitalist Author Type: Physician Filed: 01/12/152101 Date of Service: 01/12/151855 Status: Addendum Affiliate Marketing Specialist: Tico Suarez MD (Physician) Related Notes: Original Note by Danita Burr MD-R2 (Resident-Y2) filed at 2019 [facility] Service: Hospitalist Progress Note Hospital Day: [...] upper GI endoscopy by Dr. Benitez at [facility] in [place]. She denies alcohol use. Pain level is [...] or chills. Last colo noscopy was at [facility] and was told it was normal. Denies aspirin or an ticoagulant use. Does take ibuprofen on and off. Denies any left precordial chest pain, arm pain, or jaw pain. No previous history of [place]. Denies dizziness, lightheadedness, syncope. La night apparently she was transiently confused per her significant other. She takes Prilos ec b.i.d. for GERD but has not noted any improvement in her symptoms. Workup in the emergency room showed leukocytosis of 16,000 with neutrophils 77%, no bands. Her H and H has remained stable since her last labs in the [facility] that is hemoglobin 12, hemat ocrit 37. [...] HTN (hypertension) COPD (chronic obstructive pulmonary disease) ([facility]) Spinal stenosis, lumbar GERD (gastroesophageal reflux disease) Hematemesis Rectal bleeding Epigastric abdominal pain NSAID induced gastritis ARF (acute renal failure) ([facility]) Abnormal LFTs Leukocytosis, unspecified Metabolic acidosis CHI (obstructive sleep apnea) Chronic hepatitis C without hepatic coma ([facility]) ASSESSMENT & PLAN Acute GI bleeding (01/10/2015) [...] home meds COPD (chronic obstructive pulmonary disease) ([facility]) (06/24/2013) Assessment: Chronic condition Plan: Continue home [...] as listed above ARF (acute renal failure) ([facility]) (01/10/2015) Assessment: Elevated BUN and Cr on [...] Case Management by OG Granger at 01/12/15 1438 Author: OG Granger Service: (none) Author Type: Canvas Baster Jumpbasting Filed: 01/12/15 1430 Date of Service: 01/12/15 1433 Status: Signed Affiliate Marketing Specialist: OG Granger (Canvas Baster Jumpbasting) 01/12/15 1428 Discharge Planning Evaluation Admitting Diagnosis Gi Bleed Readmission No Living Arrangements Spouse/significant other Support Systems Spouse/significant other;Family members Type of Residence Private residence Independent with ADL's Yes Independent with Mobility No-comment (Ambulates with a walker) Home Care Services No Caregiver after Discharge No Mental Status Oriented Power of Silk Spotter No Anticipated Discharge Plan Post Acute Care Needs None at this time Plan communicated to patient/family Yes Resources Financial concerns No Transportation issues No (Friends or [employer] van) Patient/Family concerns No Prescription Plan [...] None Assistance in transportation: Family, friends or [employer] care van Identification of any specific education / training: None Barriers to Discharge / Alternative housing needed: None Anticipated DCP: Home with Significant Other ZAIRA THOMPSON onver david Transaction, Provider Unknown - 01/12/2015 5:21 AM PDT Nurse Progress Note by Demi Westfall RN at 01/12/15520 Author: Demi Westfall RN Service: (none) Author Type: Registered Nurse Filed: 01/12/15522 Date of Service: 01/12/15520 Status: Signed Affiliate Marketing Specialist: Demi Westfall RN (Registered Nurse) Patient resting [...] Service: (none) Author Type: Registered Nurse Filed: 01/12/158 Date of Service: 01/12/15246 Status: Signed Affiliate Marketing Specialist: Demi Westfall RN (Registered Nurse) Patient very [...] Service: (none) Author Type: Registered Nurse Filed: 01/12/1538 Date of Service: 01/12/1537 Status: Signed Affiliate Marketing Specialist: Majo Dsouza RN (Registered Nurse) Pt asked for pain medications. Pt was deeply sleeping and snoring. Wasted pain medication. Will round later to see if pt's pain needs to be addressed. MAJO DSOUZA RN ahir, Danita Bishop MD - 01/11/2015 11:42 PM PDT Progress Notes by Danita Burr MD-R2 at 01/11/152341 Author: Danita Burr MD-R2 Service: Hospitalist Author Type: Resident Filed: 01/12/1516 Date of Service: 01/11/152341 Status: Attested Affiliate Marketing Specialist: DONA QuesadaR2 (Resident-Y2) Cosigner: Contreras Burroughs MD at 1614 Attestation signed by Contreras Burroughs MD at 01/12/151614 I have seen and examined the patient and agree with the resident note. I have directed the care plan [facility] Service: Hospitalist Progress Note Hospital Day: [...] upper GI endoscopy by Dr. Benitez at [facility] in [place]. She denies alcohol use. Pain level is [...] or chills. Last colo noscopy was at [facility] and was told it was normal. Denies aspirin or an ticoagulant use. Does take ibuprofen on and off. Denies any left precordial chest pain, arm pain, or jaw pain. No previous history of [place]. Denies dizziness, lightheadedness, syncope. La night apparently she was transiently confused per her significant other. She takes Prilos ec b.i.d. for GERD but has not noted any improvement in her symptoms. Workup in the emergency room showed leukocytosis of 16,000 with neutrophils 77%, no bands. Her H and H has remained stable since her last labs in the [facility] that is hemoglobin 12, hemat ocrit 37. [...] HTN (hypertension) COPD (chronic obstructive pulmonary disease) ([facility]) Spinal stenosis, lumbar GERD (gastroesophageal reflux disease) Hematemesis Rectal bleeding Epigastric abdominal pain NSAID induced gastritis ARF (acute renal failure) ([facility]) Abnormal LFTs Leukocytosis, unspecified Metabolic acidosis CHI (obstructive sleep apnea) Chronic hepatitis C without hepatic coma ([facility]) ASSESSMENT & PLAN Acute GI bleeding (01/10/2015) [...] home meds COPD (chronic obstructive pulmonary disease) ([facility]) (06/24/2013) Assessment: Chronic condition Plan: Continue home [...] control Disposition: Hospital Code Status: Full Code Vicki Bucio Edna Burr MD-R1 01/11/2015 onversio n Transaction, Provider Unknown - 01/11/2015 2:01 PM PDTFormatting of this note might be di fferent from the original. Nurse Progress Note by Shamir Do RN at 01/11/15 140 Author: Shamir Do RN Service: (none) Author Type: Registered Nurse Filed: 01/11/151402 Date of Service: 01/11/151400 Status: Signed Affiliate Marketing Specialist: Shamir Do RN (Registered Nurse) Report called to Marvin Rn in Out Patient Procedures regarding EGD with Dr. Mas. All ques tions addressed. onver david Transaction, Provider Unknown - 01/10/2015 11:08 PM PDT Nurse Progress Note by Batsheva Nagy RN at 01/10/152307 Author: Batsheva Nagy RN Service: (none) Author Type: Registered Nurse Filed: 01/10/152 Date of Service: 01/10/152307 Status: Signed Affiliate Marketing Specialist: Batsheva Nagy RN (Registered Nurse) Patient having [...] Service: (none) Author Type: Registered Nurse Filed: 01/10/151424 Date of Service: 01/10/151424 Status: Signed Affiliate Marketing Specialist: Shamir Do RN (Registered Nurse) All po medications held per Dr. Broussard Stonecutter Hand. ristina river, Shahla Her RPH - 01/10/2015 1:39 PM PDTFormatting of this note might be different from t he original. Progress Notes by Shahla Kam RPH at 01/10/151338 Author: Shahla Kam RPH Service: (none) Author Type: Pharmacist Filed: 01/10/151338 Date of Service: 01/10/151338 Status: Signed Affiliate Marketing Specialist: Shahla Kam RPH (Pharmacist) Clinical Pharmacy Note - Renal Dose Adjustment Bisi Espitia 54 y.o. female Ht Readings from Last 1 Encounters: 01/10/15 1.702 m (5' 7") Wt Readings from Last 1 Encounters: 01/10/15 108.6 kg (239 lb 6.7 oz) CREATININE Date Value Ref Range Status 01/10/2015 2.6* 0.50 - 1.00 mg/dL Final Comment: Testing performed at [facility];[address] [place] [address];[place] [address] CREATININE: 2.6 mg/dL ABNORMAL (01/10/15 0903) Estimated creatinine clearance - 31.4 mL/min Pharmacy to renally adjust medications per Dr. Calderon Plan: No medications will require renal dose adjustment based on patient's current estimate d Crcl. Pharmacy will continue to follow and adjust as appropriate. Pharmacist: Shahla Kam 01/10/2015 1:39 PM documente d in this encounter H&P Notes Tha Calderon MD - 01/10/2015 12:23 PM PDTFormatting of this note might be different fro m the original. H&P by Tha Calderon MD at 01/10/15 1223 Author: Tha Calderon MD Service: Hospitalist Author Type: Physician Filed: 01/10/152044 Date of Service: 01/10/15 1223 Status: Addendum Affiliate Marketing Specialist: Tha Calderon MD (Physician) Related Notes: Original Note by Tha Calderon MD (Physician) filed at 01/10/15 1833 [facility] Service: Hospitalist Admission History & Physical Date of Admission: 01/10/2015 Requesting Physician: , Emergency Department Reason for Admission: Gi bleeding, upper likely. Hematemesis and rectal bleed History Obtained From: patient, chart review, Quality of history: good CHIEF COMPLAINT: Patient presented to the Emergency Department by: Bhavesh Hernandez 182 Chief Complaint Chief Complaint Patient presents with Abdominal Pain Hematemesis HISTORY OF PRESENT ILLNESS The patient is a 54 y.o. female with significant past medical history of Hepatitis C witho ut cirrhosis. Did not complete treatment . Obesity, obstructive sleep apnea, does not use CP AP. Continues to smoke a pack a day with COPD, not on home O2 or steroids. History of H. pyl christian treated in the past. History of GERD. Does use ibuprofen on and off for low back pain. D enies previous history of GI bleeding. Also has bipolar affective disorder, hypertension , l umbar spinal stenosis and chronic low back pain. The patient was brought to the ED via EMS for GI bleeding. The patient has had chronic inte rmittent epigastric pain for the past 2 years; however, it has gotten acutely worse since night. The patient is awaiting upper GI endoscopy by Dr. Benitez at [facility] in [place]. She denies alcohol use. Pain level is [...] fever or chills. Last colo noscopy was 40 years ago at [facility] and was told it was normal. Denies aspirin or anticoagulant use. Does take ibuprofen on and off. Denies any left precordial mart[address] pain, arm pain, or jaw pain. No previous history of [place]. Denies dizziness, lightheadedness , syncope. Last night apparently she was transiently confused per her significant other. She takes Prilosec b.i.d. for GERD but has not noted any improvement in her symptoms. Workup in the emergency room showed leukocytosis of 16,000 with neutrophils 77%, no bands. Her H and H has remained stable since her last labs in the [facility] that is hemoglobin 12, hemat ocrit 37. [...] upper GI bleeding and acute renal failure. REVIEW OF SYSTEMS Review of Systems The patient is a poor historian. GENERAL: She has continues to gain weight. Appetite is fair and mildly decreased. No fever s or chills. HEENT: Denies acute change in vision, thrush, odynophagia, or dysphagia. NECK: No neck pain or neck stiffness. LUNGS: History of COPD, not on home O2. Denies pleuritic chest pain, hemoptysis, shortness of breath, or wheezing. She has chronic cough, which is productive with clear to yellow sput um. HEART: Denies previous history of [place], congestive heart failure, irregular heart rhythm, or syncope. No edema, PND, or orthopnea. ABDOMEN: History of GERD, on Prilosec b.i.d. and hepatitis C without cirrhosis. Did not com plete treatment. She presents with epigastric and upper abdominal pain, hematemesis, and low er GI bleeding. Nausea. One episode of diarrhea in the emergency room. GENITOURINARY: Denies any dysuria or hematuria. She has had bladder sling surgery in the [facility] but has had trouble emptying the bladder completely and also has urgency. SKIN: No rash or decubitus ulcers. BILATERAL LOWER EXTREMITIES: Chronic mild edema. No worsening. No pain in the calf. No redn ess. NEUROLOGIC: No history of TIA, stroke, or seizure. No new focal neurological symptoms. PSYCHIATRIC: History of bipolar disorder. She has been grieving the of her mother. De nies any suicidal thoughts or ideations. Past Medical History Diagnosis Date Anxiety Hypertension Thyroid disease Depression Hepatitis C COPD (chronic obstructive pulmonary disease) (HCC) Cancer (HCC) skin cancer Other chronic pain lower back H pylori ulcer history of Joint pain Neuromuscular disorder (HCC) sciatica Spinal stenosis of lumbar region Gout Osteoarthritis Unspecified visual disturbance Chronic kidney disease September 2013, acute kidney failure Sleep apnea has machine, hasn't used it yet Acute GI bleeding 01/10/2015 Past Surgical History Procedure Laterality Date Hysterectomy Cholecystectomy Appendectomy Bladder surgery suspension [facility] 07/14/2013 [facility] 08/06/2013 Cataract extraction Breast surgery lumpectomy Colonoscopy section Eye surgery cataracts Cystocele and rectocele repair 12/24/2013 Procedure: CYSTOCELE AND RECTOCELE (A & P REPAIR); Surgeon: Misha Dye MD; Locatio n: [facility]; Service: PLATE SENSITIZER; Laterality: N/A; Anterior portion was not completed Bladder suspension 12/24/2013 Procedure: BLADDER SUSPENSION - TVT; Surgeon: Misha Dye MD; Location: [facility]; Service: PLATE SENSITIZER; Laterality: N/A; TVT exact Cystoplasty 12/24/2013 Procedure: CYSTOSCOPY - HYDRODISTENTION OF BLADDER; Surgeon: Misha Dye MD; Locati on: [facility]; Service: PLATE SENSITIZER; Laterality: N/A; 70 degree scope. Indigo Emilia dye a vailable to Anesthesiologist Enterocele repair 12/24/2013 Procedure: ENTEROCELE RPR; Surgeon: Misha Dye MD; Location: [facility]; Servic e: PLATE SENSITIZER; Laterality: N/A; Foraminotomy Left 01/30/2014 Procedure: FORAMINOTOMY; Surgeon: Juan Alberto Worrell MD; Location: [facility]; Service: Neurosurgery; Laterality: Left; L 5 Allergies Allergen Reactions Morphine Other (See Comments) Used STATE WILDLIFE OFFICER and it lowered her BP And medication was stopped Prior to Admission medications Medication Sig Start Date End Date Taking? Authorizing Provider benzonatate (TESSALON) 100 MG capsule Take 1 capsule by mouth 3 (three) times daily as need ed for Cough. 10/31/13 ANURAG Winters buPROPion (WELLBUTRIN XL) 150 MG 24 hr tablet Take 150 mg by mouth 2 (two) times daily. Not sure of dose Historical Provider ergocalciferol (DRISDOL) 42399 UNITS capsule Take 1 capsule by mouth [...] mouth every morning before breakfast. Historical Provider promethazine (PHENERGAN) 25 MG tablet Take 1 tablet by mouth every 6 (six) hours as needed for Nausea. 03/25/14 ANURAG Rae ribavirin (COPEGUS) 200 MG tablet Take 3 tablets by mouth 2 (two) times daily. 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 H/o falls, full code. History Smoking status Current Every Day Smoker -- 0.50 packs/day for 38 years Smokeless tobacco Never Used Comment: using e cigs, has information to quit History Alcohol Use 0.5 oz/week 1 drink(s) per week Comment: occasionally History Drug Use Yes Special: Marijuana Comment: has used marijauna (in Dr darby in September 2013) PHYSICAL EXAM Vital Signs: BP 147/78 mmHg | Pulse 104 | Temp(Src) 96.9 F (36.1 C) (Oral) | Resp 16 | SpO2 97% Physical Exam GENERAL: The patient is obese with a BMI of 36. She is alert and oriented x3. Significant o ther at the bedside. Hemodynamically stable. No respiratory distress and appear in pain. HEENT: Pupils are equal and reactive to light. Anicteric. Dry oral mucosa. No thrush. NECK: Neck is supple. No JVD. No lymphadenopathy. No thyromegaly. LUNGS: Lungs are clear to auscultation bilaterally. Mildly decreased at the bases. No wheez e or rales. Respiration are not labored. CHEST: No chest wall tenderness to palpation. HEART: Mildly tachycardic actually at rest. No murmur. No gallop. ABDOMEN: Has tenderness in tenderness in the epigastric, right and left upper quadrants. Ob shan and no guarding. No rigidity. Soft. Bowel sounds are present and normal. EXTREMITIES: Bilateral lower extremities: No signs of DVT, cellulitis, or ankle edema. BACK: She has chronic mild tenderness of the mid back. No CVA tenderness. NEUROLOGIC: She is grossly nonfocal and alert and oriented x3. PSYCHIATRIC: Normal mood and affect. SKIN: No rash or decubitus ulcers. Bilateral lower extremities no edema, cellulitis, or sig ns of DVT. Rectal exam : brown stool , not maroon or melena, but guaiac is positive. DATA Results for orders placed or performed during the hospital encounter of 01/10/15 (from the past 24 hour(s)) ED INFORMATION EXCHANGE Collection Time: 01/10/15 8:52 AM Result Value Ref Range BALDO PRC BALDO CARE PLAN CBC with differential Collection Time: 01/10/15 9:03 AM Result Value Ref Range WBC 16.34 (H) 3.80 - 11.00 K/uL RBC 4.21 3.70 - 5.10 M/uL HGB 12.4 11.3 - 15.5 g/dL HCT 37.6 34.0 - 46.0 % MCV 89.4 80.0 - 100.0 fl MCH 29.4 27.0 - 34.0 pg MCHC 32.9 32.0 - 35.5 g/dL RDW SD 46.4 37 - 53 fl PLT 251 150 - 400 K/uL MPV 8.3 fl DIFF TYPE AUTOMATED NEUTROPHILS 77.07 % LYMPHOCYTES 11.95 % MONOCYTES 8.49 % EOSINOPHILS 1.48 % BASOPHILS 1.01 % NEUTROPHILS ABS 12.59 (H) 1.90 - 7.40 K/uL LYMPHOCYTES ABS 1.95 1.00 - 3.90 K/uL MONOCYTES ABS 1.39 (H) 0.00 - 0.80 K/uL EOSINOPHILS ABS 0.24 0.00 - 0.50 K/uL BASOPHILS ABS 0.17 (H) 0.00 - 0.10 K/uL Comprehensive metabolic panel Collection Time: 01/10/15 9:03 AM Result Value Ref Range SODIUM 140 135 - 143 mmol/L POTASSIUM 4.1 3.5 - 4.9 mmol/L CHLORIDE 109 99 - 109 mmol/L CO2 19 (L) 23 - 32 mmol/L ANION GAP AGAP 16 5 - 20 mmol/L GLUCOSE 174 (H) 65 - 99 mg/dL BUN 42 (H) 8 - 25 mg/dL CREATININE 2.6 (H) 0.50 - 1.00 mg/dL BUN/CREAT 16 CALCIUM 9.0 8.5 - 10.5 mg/dL TOTAL PROTEIN 8.6 (H) 6.3 - 8.2 g/dL Albumin 3.4 (L) 3.6 - 5.0 g/dL GLOBULIN 5.2 (H) 1.3 - 4.9 g/dL A/G 0.6 (L) 1.0 - 2.4 TBIL 0.5 0.1 - 1.5 mg/dL ALK PHOS 127 (H) 35 - 115 U/L AST 382 (H) 10 - 45 U/L ALT 315 (H) 10 - 65 U/L EGFR 20 (L) >60 mL/min/1.73m2 Amylase Collection Time: 01/10/15 9:03 AM Result Value Ref Range AMYLASE 54 25 - 115 U/L Lipase Collection Time: 01/10/15 9:03 AM Result Value Ref Range LIPASE 191 73 - 393 U/L Protime-INR Collection Time: 01/10/15 9:03 AM Result Value Ref Range INR 1.0 Magnesium Collection Time: 01/10/15 9:03 AM Result Value Ref Range MAGNESIUM 2.1 1.7 - 2.4 mg/dL Phosphorus Collection Time: 01/10/15 9:03 AM Result Value Ref Range PHOSPHORUS 5.3 (H) 2.3 - 4.8 mg/dL Urine Microscopic Collection Time: 01/10/15 10:21 AM Result Value Ref Range WBC 16-25 0 - 5 /hpf RBC 0-2 0 - 5 /hpf EPITHELIAL 50-100 /lpf BACTERIA 3+ (A) NONE SEEN Casts 16-25 /lpf POC clinitek 10 Collection Time: 01/10/15 10:22 AM Result Value Ref Range Color, UA Val Clarity, UA CLEAR Glucose, UA NEGATIVE NEGATIVE mg/dL Bilirubin, UA LARGE (A) NEGATIVE Ketones, UA TRACE (A) NEGATIVE mg/dL Spec Grav, UA 1.020 1.001 - 1.035 Blood, UA MODERATE (A) NEGATIVE pH, UA 5.5 4.6 - 8.0 Protein, UA 30 (A) NEGATIVE mg/dL Urobilinogen, UA 0.2 <1.1 mg/dL Nitrite, UA NEGATIVE NEGATIVE WBC, UA NEGATIVE NEGATIVE Urine screen Collection Time: 01/10/15 10:23 AM Result Value Ref Range Color, UA Clarity, UA Glucose, UA Bilirubin, UA Ketones, UA Spec Grav, UA Blood, UA pH, UA 5 - 7.5 Protein, UA Urobilinogen, UA 0.2 - 1 Leukocytes, UA Nitrite, UA Urine screen (POC) Collection Time: 01/10/15 10:23 AM Result Value Ref Range Color, UA Clarity, UA Glucose, UA Bilirubin, UA Ketones, UA Spec Grav, UA Blood, UA pH, UA 5 - 7.5 Protein, UA Urobilinogen, UA 0.2 - 1 Leukocytes, UA Nitrite, UA Type and Screen Collection Time: 01/10/15 10:25 AM Result Value Ref Range ABO/RH(D) B NEGATIVE ABO/RH(D) Testing performed at [facility];[address] [place] [id number] ANTIBODY SCREEN NEGATIVE ANTIBODY SCREEN Testing performed at [facility];[address] [place] [id number] ARM BAND NUMBER [id number] ARM BAND NUMBER Testing performed at [facility];[address] [place] [id number] XR ABDOMEN ACUTE SERIES 01/10/2015 9:56 AM INDICATION: Abdominal pain COMPARISON: Ultrasound abdomen 10/08/2013, chest radiograph 09/14/2014 TECHNIQUE: Abdominal series, 3 views, single AP view of the chest, 2 views of the abdomen FINDINGS: Heart size is normal. There is minimal left lower lobe atelectasis. No pleural e ffusion or pneumothorax. There is a paucity of small bowel gas, nonspecific. Both fluid and gas is seen within nondilated loops of colon. No pneumatosis or pneumoperitoneum. There is a 9.4 mm calcific density which projects over the left iliac wing which is indeterminate. Th is may reflect a bone island vs. calcified diverticulum. There are calcific densities within the pelvis measuring 2 to 3 mm, likely small pelvic phleboliths. There is degenerative disc disease of the lumbar spine. Surgical clips are seen within the right upper quadrant. IMPRESSION: 1. Nonspecific paucity of small bowel gas. No definite findings to suggest obstruction. 2. Other findings, as above LEM LIST Principal Problem: Acute GI bleeding Active Problems: ARF (acute renal failure) (HCC) Bipolar affective (HCC) HTN (hypertension) COPD (chronic obstructive pulmonary disease) (HCC) Spinal stenosis, lumbar GERD (gastroesophageal reflux disease) Hematemesis Rectal bleeding Epigastric abdominal pain NSAID induced gastritis Abnormal LFTs Leukocytosis, unspecified Metabolic acidosis CHI (obstructive sleep apnea) Chronic hepatitis C without hepatic coma (HCC) ASSESSMENT & PLAN 1. Acute gastrointestinal bleeding. presenting with hematemesis and also rectal bleeding. A ssociated with epigastric pain, nausea, vomiting. Possible GERD with esophagitis, NSAID-marcos marjorie gastritis/esophagitis. Less likely esophageal varices although she has history of chroni c hepatitis C. Denies history of cirrhosis and has normal INR and no thrombocytopenia. Hemo globin and hematocrit have remained stable. Counseled the patient not to use nonsteroidal an tiinflammatory medications. Will admit to acute care as she has potential for deterioration. Consulted Dr. Mas to evaluate for upper GI endoscopy with or without colonoscopy. Will con tinue Protonix drip and n.p.o. Dilaudid p.r.n. for pain control. Serial hemoglobin and hemat ocrit q.6h. and transfuse p.r.n. for hemoglobin and hematocrit less than 7 and 21. At this t juve she remains hemodynamically stable. 2. Acute renal failure. Most likely prerenal and dehydration. Rule out ATN. The patient atkinson s have trouble emptying her bladder. Therefore rule out obstructive uropathy. Ordered renal ultrasound, urine sodium, urine eosinophils. Continue IV hydration and, if worsening, consul t nephrology p.r.n. Has mild metabolic acidosis without hyperkalemia. 3. Abnormal liver function tests and history of chronic hepatitis C. Did not complete treat ment. Increasing LFTs noted. Ordered ultrasound of the liver. The patient status post cholec ystectomy. Rule out ascites, cirrhosis. Most likely had fatty liver with hepatitis C. 4. Leukocytosis without bandemia or fever, possible dehydration and reactive. No empiric a ntibodies and antibiotics ordered at this time. If ultrasound shows ascites, will need parac entesis to rule out SBP. UA is a poor specimen. Needs to be repeated. Monitor CBC in a.m. 5. Lumbar spinal stenosis and chronic low back pain. While n.p.o., ordered Dilaudid for p.r .n. for pain control. The patient is a fall risk. Therefore fall precautions to be maintaine d at all times. 6. Current smoker. Counseled on smoking cessation. Nicotine replacement with nicotine patch ordered. 7. Chronic obstructive pulmonary disease and emphysema. Not on home O2 or steroids. At this time stable and continue Combivent. No indication for steroids. 8. Hypertension. Controlled and while n.p.o. ordered hydralazine and labetalol p.r.n. 9. Bipolar affective disorder. Stable. Resume home medications. 10. CHI: The patient has obstructive sleep apnea but will not use her CPAP. Counseled the p atient to resume CPAP and also weight reduction. Addendum: 8:44pm US ABDOMEN COMPLETE 01/10/2015 7:57 PM FINDINGS: Spleen: 13.6 x 5.7 x 12.2 cm. Poorly visualized. Peritoneal Findings: No ascites identified. IMPRESSION: 1. Very limited study due to body habitus and bowel gas. 2. The gallbladder is surgically absent. 3. Kidneys, spleen, liver and IVC appear grossly normal in size but are poorly visualized. 4. Common bile duct and pancreas were not visualized. 5. Proximal aorta normal in caliber. Mid to distal portion could not be visualized. BLADDER 01/10/2015 7:57 PM IMPRESSION: FINDINGS/IMPRESSION: The bladder has a prevoid volume of 295 mL and a post void volume of 89 mL which is greater than expected for a 54-year-old female. 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 No bladder mass or bladder stone is seen. Bilateral ureteral jets are noted. Disposition: acute care Code Status: Full code Primary Care Physician: Naren Nina (General) THA CALDERON MD 01/10/2015 documented in this e ncounter Consult Notes Apollo Mas - 01/10/2015 5:41 PM PDT Consults by Apollo Mas MD at 01/10/15 174 Author: Apollo Mas MD Service: Gastroenterology Author Type: Physician Filed: 01/19/15 1336 Date of Service: 01/10/151740 Status: Signed Affiliate Marketing Specialist: Apollo Mas MD (Physician) Related Notes: Original Note by Apollo Mas MD (Physician) filed at 01/10/151746 Consult Orders: 1. Consult to Gastroenterology [[id number]] ordered by Tha Calderon MD at 01/10/15 1233 2. Inpatient consult to GI [[id number]] ordered by Tha Calderon MD at 01/10/15 1235 [facility] Service: Gastroenterology Initial Consult Note Date of Admission: 01/10/2015 Reason for Consultation: Vomiting blood and diarrhea Requesting Physician: Dr. Calderon History Obtained From: patient CHIEF COMPLAINT: Diarrhea and vomiting blood HISTORY OF PRESENT ILLNESS The patient is a 54 y.o. female with significant past medical history of hypertension, obe sity, depression, hepatitis C, COPD, chronic pain syndrome, peptic ulcer disease with H. pyl christian gastritis status post treatment in the past, neuromuscular disorder, anxiety, who presen kayy to the ER and was admitted with episodes of nausea and vomiting, with coffee-grounds in the vomitus and profound diarrhea. The patient is a poor historian and the history was obtai magdalene from her fiance. The the patient has had chronic diarrhea for 3 weeks and up to 6 to 8 t imes a day, watery like, with urgency and possible tenesmus but no nocturnal diarrhea. Only had occasional fecal incontinence and denied any nausea, vomiting, or blood in the scope. On the day of admission, he had nausea, vomiting, and had episodes of coffee-ground dark red b lood in the vomitus last night. The patient came into the ER. Since then, the patient has archuleta d no known episodes of vomiting. The patient was seen by primary physician and sent for EGD and colonoscopy in outpatient setting and it was scheduled this month but not done yet. Othe rwise, no family history of colon cancer, IBD, celiac disease, and no similar episodes in e past. REVIEW OF SYSTEMS ROS obtained from patient. Negative except for pertinent items noted in HPI. Past Medical History Diagnosis Date Anxiety Hypertension Thyroid disease Depression Hepatitis C COPD (chronic obstructive pulmonary disease) (HCC) Cancer (HCC) skin cancer Other chronic pain lower back H pylori ulcer history of Joint pain Neuromuscular disorder (HCC) sciatica Spinal stenosis of lumbar region Gout Osteoarthritis Unspecified visual disturbance Chronic kidney disease September 2013, acute kidney failure Sleep apnea has machine, hasn't used it yet Acute GI bleeding 01/10/2015 Past Surgical History Procedure Laterality Date Hysterectomy Cholecystectomy Appendectomy Bladder surgery suspension [facility] 07/14/2013 [facility] 08/06/2013 Cataract extraction Breast surgery lumpectomy Colonoscopy section Eye surgery cataracts Cystocele and rectocele repair 12/24/2013 Procedure: CYSTOCELE AND RECTOCELE (A & P REPAIR); Surgeon: Misha Dye MD; Locatio n: [facility]; Service: PLATE SENSITIZER; Laterality: N/A; Anterior portion was not completed Bladder suspension 12/24/2013 Procedure: BLADDER SUSPENSION - TVT; Surgeon: Misha Dye MD; Location: [facility]; Service: PLATE SENSITIZER; Laterality: N/A; TVT exact Cystoplasty 12/24/2013 Procedure: CYSTOSCOPY - HYDRODISTENTION OF BLADDER; Surgeon: Misha Dye MD; Locati on: [facility]; Service: PLATE SENSITIZER; Laterality: N/A; 70 degree scope. Indigo Emilia dye a vailable to Anesthesiologist Enterocele repair 12/24/2013 Procedure: ENTEROCELE RPR; Surgeon: Misha Dye MD; Location: [facility]; Servic e: PLATE SENSITIZER; Laterality: N/A; Foraminotomy Left 01/30/2014 Procedure: FORAMINOTOMY; Surgeon: Juan Alberto Worrell MD; Location: [facility]; Service: Neurosurgery; Laterality: Left; L 5 Allergies Allergen Reactions Morphine Other (See Comments) Used STATE WILDLIFE OFFICER and it lowered her BP And medication was stopped Prescriptions prior to admission Medication Sig Dispense Refill Last Dose benzonatate (TESSALON) 100 MG capsule Take 1 capsule by mouth 3 (three) times daily as needed for Cough. 30 capsule 2 Past Week at Unknown time buPROPion (WELLBUTRIN XL) 150 MG 24 hr tablet Take 150 mg by mouth 2 (two) times daily. Not sure of dose 09/14/2014 at Unknown time ergocalciferol (DRISDOL) 47261 UNITS capsule Take 1 capsule by mouth once a week. 12 ca psule 0 Taking famotidine (PEPCID) 20 MG tablet Take 1 tablet by mouth 2 (two) times daily. 60 tablet 1 09/14/2014 at Unknown time FLUoxetine (PROZAC) 40 MG capsule Take 1 capsule by mouth daily. 90 capsule 3 09/14/2014 at Unknown time gabapentin (NEURONTIN) 100 MG capsule take 1 capsule by mouth twice a day 60 capsule 0 More than a month at Unknown time gabapentin (NEURONTIN) 300 MG capsule take 2 capsules by mouth every evening 60 capsule 0 More than a month at Unknown time ipratropium-albuterol (COMBIVENT RESPIMAT) 20-100 MCG/ACT inhaler Inhale 2 puffs into t he lungs every 6 (six) hours as needed for Wheezing. 2 each 11 09/14/2014 at Unknown time levothyroxine (SYNTHROID) 25 MCG tablet Take 1 tablet by mouth every morning before mary grace akfast. 90 tablet 3 09/14/2014 at Unknown time lisinopril (ZESTRIL) 10 MG tablet Take 1 tablet by mouth daily. 90 tablet 3 09/14/2014 a t Unknown time loratadine (CLARITIN) 10 MG tablet Take 1 tablet by mouth daily. 90 tablet 3 More than a month at Unknown time LORazepam (ATIVAN) 1 MG tablet Take 1 tablet by mouth every 6 (six) hours as needed for Anxiety. 50 tablet 0 Past Week at Unknown time metaxalone (SKELAXIN) 800 MG tablet Take 1 tablet by mouth 3 (three) times daily as nee ded for Pain. 30 tablet 1 Past Week at Unknown time OLANZapine (ZYPREXA) 10 MG tablet Take 1 tablet by mouth nightly. 90 tablet 3 Past Week at Unknown time omeprazole (PRILOSEC) 20 MG capsule Take 20 mg by mouth every morning before breakfast. Past Week at Unknown time promethazine (PHENERGAN) 25 MG tablet Take 1 tablet by mouth every 6 (six) hours as nee ded for Nausea. 30 tablet 0 More than a month at Unknown time ribavirin (COPEGUS) 200 MG tablet Take 3 tablets by mouth 2 (two) times daily. 180 tabl et 2 Taking Scheduled Medications buPROPion 150 mg Oral BID FLUoxetine 40 mg Oral Daily gabapentin 100 mg Oral BID gabapentin 600 mg Oral Nightly [START ON 01/11/2015] levothyroxine 25 mcg Oral QAM AC lidocaine HCl (PF) lisinopril 10 mg Oral Daily nicotine 1 patch Transdermal Daily OLANZapine 10 mg Oral Nightly polyethylene glycol 4,000 mL Oral Once propofol Continuous Infusions pantoprazole 8 mg/hr (01/10/15 1722) sodium chloride (IV) 125 mL/hr at 01/10/15 1354 PRN Medications benzonatate, hydrALAZINE, HYDROmorphone, ipratropium-albuterol, labetalol, LORazepam, ondan setron OR ondansetron, polyethylene glycol Family History Problem Relation Age of Onset Breast cancer Sister Skin cancer Sister Ovarian cancer Sister Heart disease Mother Diabetes Father Diabetes type II Father History Social History Marital Status: Single Spouse Name: N/A Number of Children: 3 Years of Education: N/A 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 H/o falls, full code. PHYSICAL EXAM Vital Signs: BP 133/80 mmHg | Pulse 106 | Temp(Src) 98.2 F (36.8 C) (Axillary) | Resp 18 | Ht 1.702 m (5' 7") | Wt 108.6 kg (239 lb 6.7 oz) | BMI 37.49 kg/m2 | SpO2 98% | ? No Temp: [96.3 F (35.7 C)-98.6 F (37 C)] 98.2 F (36.8 C) (01/10 1702) BP: (122-164)/(56-94) 133/80 mmHg (01/10 1702) Heart Rate: [103-115] 106 (01/10 1702) Resp: [16-20] 18 (08/09 1702) SpO2: [96 %-100 %] 98 % (01/10 1702) Height: [170.2 cm (5' 7")] 170.2 cm (5' 7") (01/11 1332) Weight: [108.6 kg (239 lb 6.7 oz)] 108.6 kg (239 lb 6.7 oz) (01/11 1332) BMI (Calculated): [37.6] 37.6 (01/11 1332) GENERAL: The patient is obese with a BMI of 36. She is alert and oriented x3. Significant o ther at the bedside. Hemodynamically stable. No respiratory distress and appear in pain. HEENT: Pupils are equal and reactive to light. Anicteric. Dry oral mucosa. No thrush. NECK: Neck is supple. No JVD. No lymphadenopathy. No thyromegaly. LUNGS: Lungs are clear to auscultation bilaterally. Mildly decreased at the bases. No wheez e or rales. Respiration are not labored. CHEST: No chest wall tenderness to palpation. HEART: Mildly tachycardic actually at rest. No murmur. No gallop. ABDOMEN: Has tenderness in tenderness in the epigastric, right and left upper quadrants. Ob shan and no guarding. No rigidity. Soft. Bowel sounds are present and normal. EXTREMITIES: Bilateral lower extremities: No signs of DVT, cellulitis, or ankle edema. BACK: She has chronic mild tenderness of the mid back. No CVA tenderness. NEUROLOGIC: She is grossly nonfocal and alert and oriented x3. PSYCHIATRIC: Normal mood and affect. SKIN: No rash or decubitus ulcers. Bilateral lower extremities no edema, cellulitis, or sig ns of DVT. Rectal exam : brown stool , not maroon or melena, but guaiac is positive. DATA CBC: Lab Results Component Value Date WBC 16.34* 01/10/2015 RBC 4.21 01/10/2015 HGB 12.4 01/10/2015 HCT 37.6 01/10/2015 MCV 89.4 01/10/2015 MCH 29.4 01/10/2015 MCHC 32.9 01/10/2015 RDW 46.4 01/10/2015 PLT 251 01/10/2015 MPV 8.3 01/10/2015 DIFFTYPE AUTOMATED 01/10/2015 Hemoglobin/Hematocrit: Lab Results Component Value Date HGB 12.4 01/10/2015 HCT 37.6 01/10/2015 CMP: Lab Results Component Value Date NA 140 01/10/2015 K 4.1 01/10/2015 CL 109 01/10/2015 CO2 19* 01/10/2015 ANIONGAP 16 01/10/2015 GLUF 174* 01/10/2015 BUN 42* 01/10/2015 CREATININE 2.6* 01/10/2015 BCR 16 01/10/2015 CA 9.0 01/10/2015 PROT 8.6* 01/10/2015 ALB 3.4* 01/10/2015 GLOB 5.2* 01/10/2015 BILITOT 0.5 01/10/2015 ALP 127* 01/10/2015 AST 382* 01/10/2015 ALT 315* 01/10/2015 EGFR 20* 01/10/2015 PT/INR: Lab Results Component Value Date INR 1.0 01/10/2015 PROBLEM LIST Principal Problem: Acute GI bleeding Active Problems: Bipolar affective (HCC) HTN (hypertension) COPD (chronic obstructive pulmonary disease) (HCC) Spinal stenosis, lumbar GERD (gastroesophageal reflux disease) Hematemesis Rectal bleeding Epigastric abdominal pain NSAID induced gastritis ARF (acute renal failure) (HCC) Abnormal LFTs Leukocytosis, unspecified Metabolic acidosis CHI (obstructive sleep apnea) Chronic hepatitis C without hepatic coma (HCC) ASSESSMENT & PLAN If she has coffee-ground emesis, certainly we need to rule out any upper GI bleeding in her setting with white count up to 16,000 and to consider whether shes has any hemoconcentratio n because her creatinine was up to 2.6 and BUN 42 which could also be from dehydration from chronic diarrhea of 3-weeks. We will certainly hydrate her with aggressive fluid replacement and also set up an endoscopy to rule out any active GI bleeding. We will treat her with Pro tonix IV b.i.d. If upper endoscopy is negative, we will start GoLYTELY prep and will do a co lonoscopy with random colon biopsy for her diarrhea. Further recommendations will be made de pending on her endoscopic findings and pathology. Risks, benefits, and complications of the procedure explained to the patient and the patient's fiance. They understand well. Code Status: Full Code Primary Care Physician: Naren Nina (General) Thank you for allowing me to participate in the care of this patient. I have discussed my recommendations with the attending physician. APOLLO MAS MD 01/10/2015 documented in this encount er ED Notes Conversion Transaction, Provider Unknown - 01/10/2015 1:16 PM PDTFormatting of this note m ight be different from the original. ED Notes by Brandee Bran RN at 01/10/15 1316 Author: Brandee Bran RN Service: (none) Author Type: Registered Nurse Filed: 01/10/15 1322 Date of Service: 01/10/15 1316 Status: Addendum Affiliate Marketing Specialist: Brandee Bran RN (Registered Nurse) Related Notes: Original Note by Brandee Bran RN (Registered Nurse) filed at 01/10/15 131 7 Upon bedside report admitting RN noticed swelling to right hand around IV site with medicat ions infusing. IV infusions stopped and IV removed. New IV in left hand immediatly replaced. Pt complains of no pain but rather "tightness". Ice pack given for comfort. Brandee Bran RN 01/10/15 1317 Brandee Bran RN 01/10/15 1322 onver david Transaction, Provider Unknown - 01/10/2015 11:20 AM PDT ED Notes by Rosita Mazariegos at 01/10/15 1120 Author: Rosita Mazariegos Service: (none) Author Type: Food And Beverage Order Clerk Filed: 01/10/15 1120 Date of Service: 01/10/15 1120 Status: Signed Affiliate Marketing Specialist: Rosita Mazariegos (Food And Beverage Order Clerk) Pt ambulated back to bed with standby assistance call light given to pt. Rosita Mazariegos 01/10/15 1120 onver david Transaction, Provider Unknown - 01/10/2015 11:10 AM PDT ED Notes by Rosita Mazariegos at 01/10/15 1110 Author: Rosita Mazariegos Service: (none) Author Type: Food And Beverage Order Clerk Filed: 01/10/15 1120 Date of Service: 01/10/15 1110 Status: Signed Affiliate Marketing Specialist: Rosita Mazariegos (Food And Beverage Order Clerk) Pt ambulated to bathroom with standby assistance asked to pull call light when done. Rosita Mazariegos 01/10/15 1120 onver david Transaction, Provider Unknown - 01/10/2015 10:03 AM PDT ED Notes by Brandee Bran RN at 01/10/15 100 Author: Brandee Bran RN Service: (none) Author Type: Registered Nurse Filed: 01/10/151002 Date of Service: 01/10/151002 Status: Signed Affiliate Marketing Specialist: Brandee Bran RN (Registered Nurse) Pt ambulatory to restroom without difficulty Brandee Bran RN 01/10/151002 onver david Transaction, Provider Unknown - 01/10/2015 9:27 AM PDT ED Notes by Brandee Bran RN at 01/10/15926 Author: Brandee Bran RN Service: (none) Author Type: Registered Nurse Filed: 01/10/15927 Date of Service: 01/10/15926 Status: Signed Affiliate Marketing Specialist: Brandee Bran RN (Registered Nurse) Pt states "i dont handle stress well" and reports having a lot of stress lately with her fa natalie. Pt reports losing her mother less than one year ago and brother passing away also just over one year ago. Brandee Bran RN 01/10/15927 Luis Chan MD - 01/10/2015 9:21 AM PDT ED Provider Notes by Luis Sales DO at 01/10/15 0921 Author: Luis Sales DO Service: (none) Author Type: Physician Filed: 01/11/1539 Date of Service: 01/10/15 0921 Status: Signed Affiliate Marketing Specialist: Luis Sales DO (Physician) [facility] Department of Emergency Medicine 9:21 AM 01/10/2015 History of Present Illness Patient Identification Bisi Espitia is a 54 y.o. female. Patient information was obtained from patient. History/Exam limitations: none. Patient presented to the Emergency Department by: Bhavesh Hernandez 182 (PCP: Naren Nina (General).) Chief Complaint Chief Complaint Patient presents with Abdominal Pain Hematemesis Location: epigastric, center of the upper abdomen Quality: pain Severity: moderate to severe Duration: chronic Timing: worse today Modifying factors: none Care prior to arrival: none Associated symptoms: "spitting up blood", increased stress Denies: recent illness, CP, SOB, or any other sx at this time PMHx: pt reports a hx of chronic upper abdominal pain as well as H. Pylori, varices, and he patitis. Pt states that she has an upper endoscopy scheduled to be performed by Dr. Nina at the [facility] in [place]. She admits to smoking and drinking. Pt states she has lost her mother and several other family members recently and has been feelin g very stressed. Past Medical History Diagnosis Date Anxiety Hypertension Thyroid disease Depression Hepatitis C COPD (chronic obstructive pulmonary disease) (HCC) Cancer (HCC) skin cancer Other chronic pain lower back H pylori ulcer history of Joint pain Neuromuscular disorder (HCC) sciatica Spinal stenosis of lumbar region Gout Osteoarthritis Unspecified visual disturbance Chronic kidney disease September 2013, acute kidney failure Sleep apnea has machine, hasn't used it yet Acute GI bleeding 01/10/2015 Past Surgical History Procedure Laterality Date Hysterectomy Cholecystectomy Appendectomy Bladder surgery suspension [facility] 07/14/2013 [facility] 08/06/2013 Cataract extraction Breast surgery lumpectomy Colonoscopy section Eye surgery cataracts Cystocele and rectocele repair 12/24/2013 Procedure: CYSTOCELE AND RECTOCELE (A & P REPAIR); Surgeon: Misha Dye MD; Locatio n: [facility]; Service: PLATE SENSITIZER; Laterality: N/A; Anterior portion was not completed Bladder suspension 12/24/2013 Procedure: BLADDER SUSPENSION - TVT; Surgeon: Misha Dye MD; Location: [facility]; Service: PLATE SENSITIZER; Laterality: N/A; TVT exact Cystoplasty 12/24/2013 Procedure: CYSTOSCOPY - HYDRODISTENTION OF BLADDER; Surgeon: Misha Dye MD; Locati on: [facility]; Service: PLATE SENSITIZER; Laterality: N/A; 70 degree scope. Indigo Emilia dye a vailable to Anesthesiologist Enterocele repair 12/24/2013 Procedure: ENTEROCELE RPR; Surgeon: Misha Dye MD; Location: [facility]; Servic e: PLATE SENSITIZER; Laterality: N/A; Foraminotomy Left 01/30/2014 Procedure: FORAMINOTOMY; Surgeon: Juan Alberto Worrell MD; Location: [facility]; Service: Neurosurgery; Laterality: Left; [...] sure of dose Historical Provider ergocalciferol (DRISDOL) 64699 UNITS capsule Take 1 capsule by mouth [...] mouth every morning before breakfast. Historical Provider promethazine (PHENERGAN) 25 MG tablet Take 1 tablet by mouth every 6 (six) hours as needed for Nausea. 03/25/14 ANURAG Rae ribavirin (COPEGUS) 200 MG tablet Take 3 tablets by mouth 2 (two) times daily. 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 H/o falls, full code. Family History Problem Relation Age of Onset Breast cancer Sister Skin cancer Sister Ovarian cancer Sister Heart disease Mother Diabetes Father Diabetes type II Father Review of Systems Constitutional: Negative for fever, chills Eyes: Negative for vision changes Nose: Negative for congestion, nosebleeds Throat: Negative for sore throat CV/Resp: Negative for chest pain, pighzdiwj-[id number], cough GI: Positive for abdominal pain and "spitting up blood" Negative for nausea, vomiting, or diarrhea : Negative for urinary problems Musculoskeletal: Negative for back pain, joint pain Skin: Negative for rash Neuro/Psych: Negative for headache Endo/heme/Lymph: Negative for swollen lymph nodes, easy bruising All other systems reviewed and negative except as noted. Physical Exam BP 153/78 mmHg | Pulse 110 | Temp(Src) 98.2 F (36.8 C) (Oral) | Resp 20 | SpO2 98% Vitals Interpretation: Hypertensive, tachycardic, otherwise normal. Pulse Oximetry interpretation: Normal General: Alert, no active distress and not requiring any emergent interventions Eyes: Normal inspection, pupils equal and round, non-icteric sclera ENT: Ears normal Nose normal without discharge or drainage Pharynx normal with no exudates or discharge Neck: Normal inspection with no lymphadenopathy Supple Full ROM No carotid bruit with midline trachea Cardiovascular: Normal rate and rhythm, no extra sounds No murmurs rubs or gallops Focal PMI Respiratory: Coarse breath sounds bilaterally No respiratory distress Normal excursion No retractions Abdomen: Epigastric tenderness, soft, non-distended Hyperactive bowel sounds No rebound, no guarding Back: Normal inspection Without tenderness or deformity Skin: Color normal Warm and dry Extremities: DAWSON with equal pulses in the upper and lower extremities bilaterally Neuro: No gross motor/sensory deficit GCS 15 No cerebellar deficits Alert and oriented to person, place, time and situation. Medical Decision Making and Emergency Department Course ED Department Course 9:59 AM The patient presents with the chief complaint of upper abdominal pain. After my in terview and examination and review of the patients past medical history, past surgical histo ry and social history I feel that the partial list of possible emergent diagnoses requires a n evaluation which includes consideration of cholelithiasis, cholecystitis, hepatitis, pancr eatitis, nephrolithiasis, urine infection, anemia, dehydration, acute renal failure, acute a ppendicitis, electrolyte changes, gastritis, gastroenteritis and also ileus. My clinical ex amination is not consistent with acute surgical abdomen. I will order labs, medications, int ravenous fluids and diagnostic imaging. Labs reviewed: leukocytosis, CO2 low at 19, glucose elevated at 174, BUN 42 and creatinine 2.6 with EGFR 20, alk phos 127, AST 382 and ALT 315. Urine specimen appears contaminated. Al so shows large bilirubin and trace ketones. XR acute abdominal series is negative for obstruction. 10:35 AM Pt recheck. Pt reports she has had prior labs performed at [place], will attempt to get these records in order to compare her labs. 11:25 AM Received records from [facility] in [place]. Pt's last visit and lab s at [facility] were April 04, 2014. Labs from 04/04/14 show: WBC 17.7, HGB 12.0, HCT 35 .0, creatinine 0.73, AST 15, ALT 24. Pt appears to be in acute renal failure. She reports a hx of having something wrong with he r kidneys once in the past when her mother , but is unable to provide further det ails and denies having ever seen a marine geologist. She denies hx chronic kidney disease. 11:30 AM Pt recheck. Discussed all findings and the plan for admission. Pt agreeable to the plan. 11:34 AM Discussed the case with Dr. Calderon, hospitalist, who will see the pt ED Medication Administration from 01/10/2015 0849 to 01/10/2015 1323 Date/Time Order Dose Route Action Action by 01/10/2015 0939 pantoprazole (PROTONIX) injection 40 mg 40 mg Intravenous Given Brandee Bacon RN 01/10/2015 1013 sucralfate (CARAFATE) 1 GM/10ML suspension 1 g 1 g Oral Given Brandee river RN 01/10/2015 0939 sodium chloride (bolus) 0.9 % 2,000 mL 2,000 mL Intravenous New Bag Brandee Bran RN 01/10/2015 1021 lidocaine viscous 2 % 10 mL, aluminum-magnesium hydroxide-simethicone (MA ALOX) 200-200-20 MG/5ML 10 mL, ZO-yxbxho-vghbivsk-scopolamine () 10 mL solution 30 m L Oral Given Brandee Bran RN 01/10/2015 1150 pantoprazole (PROTONIX) 40 mg/100 mL infusion 8 mg/hr Intravenous New Bag Keon Gibson RN 01/10/2015 1250 HYDROmorphone (DILAUDID) injection 0.5 mg 0.5 mg Intravenous Given Brandee Bran, RN 01/10/2015 1308 nicotine (NICODERM CQ) 21 MG/24HR patch 1 patch 1 patch Transdermal Patch Applied Marco Andrew RN Filed Vitals: 01/10/15 0853 01/10/15 1104 01/10/15 1228 01/10/15 1332 BP: 153/78 147/78 164/94 128/75 Pulse: 110 104 115 103 Temp: 98.2 F (36.8 C) 96.9 F (36.1 C) 96.3 F (35.7 C) 98.3 F (36.8 C) TempSrc: Oral Oral Oral Oral Resp: 20 16 18 16 Height: 1.702 m (5' 7") Weight: 108.6 kg (239 lb 6.7 oz) SpO2: 98% 97% 96% 98% Records Reviewed Old ED records reviewed (Using the electronic record system of [facility], Jadyn damico reviewed the records with regard to the past medical/surgical history, previous medic ations, and allergies). The most recent labs available in our system were January 2014 and e pt had normal kidney function. Nursing notes reviewed for chief complaint, medications, clinical presentation and vital si gns. Laboratory Evaluation Results Procedure Component Value Ref Range Date/Time Urine Culture [[id number]] Collected: 01/10/15 1021 Order Status: Sent Specimen Information: Urine / Urine, Clean Catch Updated: 01/10/15 1251 Type and Screen [[id number]] Collected: 01/10/15 1025 Order Status: Completed Specimen Information: Blood Updated: 01/10/15 1121 ABO/RH(D) B NEGATIVE ABO/RH(D) Result: Testing performed at [facility];[address] [place] [address] ANTIBODY SCREEN NEGATIVE ANTIBODY SCREEN Result: Testing performed at [facility];[address] [place] [address] ARM BAND NUMBER [id number] ARM BAND NUMBER Result: Testing performed at [facility];[address] [place] [address] Urine Microscopic [[id number]] (Abnormal) Collected: 01/10/15 1021 Order Status: Completed Specimen Information: Urine / Urine, Clean Catch Updated: 02/16 1044 WBC 16-25 0 - 5 /hpf RBC 0-2 0 - 5 /hpf EPITHELIAL 50-100 /lpf BACTERIA 3+ (A) NONE SEEN Casts 16-25 /lpf POC clinitek 10 [[id number]] (Abnormal) Collected: 01/10/15 1022 Order Status: Completed Updated: 01/10/15 1026 Color, UA Val Clarity, UA CLEAR Glucose, UA NEGATIVE NEGATIVE mg/dL Bilirubin, UA LARGE (A) NEGATIVE Ketones, UA TRACE (A) NEGATIVE mg/dL Spec Grav, UA 1.020 1.001 - 1.035 Blood, UA MODERATE (A) NEGATIVE pH, UA 5.5 4.6 - 8.0 Protein, UA 30 (A) NEGATIVE mg/dL Urobilinogen, UA 0.2 <1.1 mg/dL Nitrite, UA NEGATIVE NEGATIVE WBC, UA NEGATIVE NEGATIVE Comprehensive metabolic panel [[id number]] (Abnormal) Collected: 01/10/15902 Order Status: Completed Specimen Information: Blood Updated: 01/10/15940 SODIUM 140 135 - 143 mmol/L POTASSIUM 4.1 3.5 - 4.9 mmol/L CHLORIDE 109 99 - 109 mmol/L CO2 19 (L) 23 - 32 mmol/L ANION GAP AGAP 16 5 - 20 mmol/L GLUCOSE 174 (H) 65 - 99 mg/dL BUN 42 (H) 8 - 25 mg/dL CREATININE 2.6 (H) 0.50 - 1.00 mg/dL BUN/CREAT 16 CALCIUM 9.0 8.5 - 10.5 mg/dL TOTAL PROTEIN 8.6 (H) 6.3 - 8.2 g/dL Albumin 3.4 (L) 3.6 - 5.0 g/dL GLOBULIN 5.2 (H) 1.3 - 4.9 g/dL A/G 0.6 (L) 1.0 - 2.4 TBIL 0.5 0.1 - 1.5 mg/dL ALK PHOS 127 (H) 35 - 115 U/L AST 382 (H) 10 - 45 U/L ALT 315 (H) 10 - 65 U/L EGFR 20 (L) >60 mL/min/1.73m2 Amylase [[id number]] Collected: 01/10/15902 Order Status: Completed Specimen Information: Blood Updated: 01/10/15940 AMYLASE 54 25 - 115 U/L Lipase [[id number]] Collected: 01/10/15902 Order Status: Completed Specimen Information: Blood Updated: 01/10/15940 LIPASE 191 73 - 393 U/L CBC with differential [[id number]] (Abnormal) Collected: 01/10/15902 Order Status: Completed Specimen Information: Blood Updated: 01/10/15925 WBC 16.34 (H) 3.80 - 11.00 K/uL RBC 4.21 3.70 - 5.10 M/uL HGB 12.4 11.3 - 15.5 g/dL HCT 37.6 34.0 - 46.0 % MCV 89.4 80.0 - 100.0 fl MCH 29.4 27.0 - 34.0 pg MCHC 32.9 32.0 - 35.5 g/dL RDW SD 46.4 37 - 53 fl PLT 251 150 - 400 K/uL MPV 8.3 fl DIFF TYPE AUTOMATED NEUTROPHILS 77.07 % LYMPHOCYTES 11.95 % MONOCYTES 8.49 % EOSINOPHILS 1.48 % BASOPHILS 1.01 % NEUTROPHILS ABS 12.59 (H) 1.90 - 7.40 K/uL LYMPHOCYTES ABS 1.95 1.00 - 3.90 K/uL MONOCYTES ABS 1.39 (H) 0.00 - 0.80 K/uL EOSINOPHILS ABS 0.24 0.00 - 0.50 K/uL BASOPHILS ABS 0.17 (H) 0.00 - 0.10 K/uL I personally reviewed the lab results and they have been posted to the chart. Pertinent po sitive and negative findings have been addressed appropriately. Radiology and EKG Evaluation Imaging Results XR Acute Abdominal Series (Final result) Result time: 01/10/15 10:01:21 Final result by Rad Results In Dhiraj (01/10/15 10:01:21) Impression: 1. Nonspecific paucity of small bowel gas. No definite findings to suggest obstruction. 2. Other findings, as above Narrative: BISI ESPITIA 1960 XR ABDOMEN ACUTE SERIES 01/10/2015 9:56 AM INDICATION: Abdominal pain COMPARISON: Ultrasound abdomen 10/08/2013, chest radiograph 09/14/2014 TECHNIQUE: Abdominal series, 3 views, single AP view of the chest, 2 views of the abdomen FINDINGS: Heart size is normal. There is minimal left lower lobe atelectasis. No pleural e ffusion or pneumothorax. There is a paucity of small bowel gas, nonspecific. Both fluid and gas is seen within nondilated loops of colon. No pneumatosis or pneumoperitoneum. There is a 9.4 mm calcific density which projects over the left iliac wing which is indeterminate. Th is may reflect a bone island vs. calcified diverticulum. There are calcific densities within the pelvis measuring 2 to 3 mm, likely small pelvic phleboliths. There is degenerative disc disease of the lumbar spine. Surgical clips are seen within the right upper quadrant. ED Diagnoses Final diagnoses Acute renal failure, unspecified acute renal failure type (HCC) Hematemesis Hepatitis C virus infection without hepatic coma, unspecified chronicity Moderate dehydration Disposition: ED Disposition Admit/Observation Requested Unit:: Acute Care Bed request special needs: Dialysis Diagnosis?: acute renal failure Diagnosis?: acute elevated LFT's with hx of hepatitis C Diagnosis?: hematemesis Diagnosis?: dehydration moderate This document has been prepared with a voice recognition system. The possibility of "sound alike" army ranger errors, addition and/or deletions may occur. If there is any question p lease contact the author of the document. Procedures Additional Documentation Procedures Attending Note: Documentation assistance provided by Annalisa Grimes (Scribe). Information recorded by the scribe has been reviewed and validated by me. Jadyn robertson with its contents. DO Luis Read DO 01/11/15 0839 onversion Transac tion, Provider Unknown - 01/10/2015 8:49 AM PDTFormatting of this note might be different f rom the original. ED Notes by [place] Bush RN at 01/10/15848 Author: [place] Bush RN Service: (none) Author Type: Registered Nurse Filed: 01/10/15848 Date of Service: 01/10/15848 Status: Signed Affiliate Marketing Specialist: [place] Bush RN (Registered Nurse) Bed: 11 Expected date: 01/10/15 Expected time: 8:41 AM Means of arrival: [place] Hernandez 8589 Comments: 54 yo F Abd pain docume nted in this encounter Miscellaneous Notes Op Note - Apollo Mas - 01/11/2015 5:00 PM PDT Op Note by Apollo Mas MD at 01/11/151699 Author: Apollo Mas MD Service: Gastroenterology Author Type: Physician Filed: 01/11/152228 Date of Service: 01/11/151699 Status: Addendum Affiliate Marketing Specialist: Apollo Mas MD (Physician) Related Notes: Original Note by Apollo Mas MD (Physician) filed at 01/11/152228 [facility] Service: Gastroenterology ENDOSCOPY SUITE PROCEDURE NOTE Colonoscopy Indications: Bloody diarrhea Consent: The benefits, risks (bleeding, perforation, infection and reaction to medication) , and alternatives to the procedure were discussed and informed consent was obtained from th e patient. Preparation: EKG, pulse, pulse oximetry, and blood pressure were monitored throughout the procedure. Medications: MAC Digital Rectal Exam: Normal rectal exam. Procedure: The Olympus colonoscope was passed through the anus under direct visualization and was advanced with ease to the cecum, confirmed by appendiceal orifice and ileocecal valv e. The scope was withdrawn and the mucosa was carefully examined. The quality of the prepara tion was good. The views were good. The patient's toleration of the procedure was good. Ther e were no apparent complications. Findings: -diverticulosis, mild in degree, involving the sigmoid -hemorrhoids (internal), Moderate in size -mucosal abnormality, characterized by ulceration, localized in distribution,moderate in de greeinvolving the ascending colon, the splenic flexure and the descending colon; biopsies we re obtained Specimens: colon Complications: None; patient tolerated the procedure well. Impression: Colitis, likely ischemic, s/p biopsy EBL: Minimal Recommendations: -Await pathology., -Follow clinical symptoms and laboratory studies for e vidence of rebleeding.- Bowel rest: full liquid diet for now and advance to low fat diet as tolerated. APOLLO MAS MD 01/11/2015 p Note - Apollo Mas - 01/10/2015 5:48 PM PDT Op Note by Apollo Mas MD at 01/10/151747 Author: Apollo Mas MD Service: Gastroenterology Author Type: Physician Filed: 01/10/151748 Date of Service: 01/10/151747 Status: Signed Affiliate Marketing Specialist: Apollo Mas MD (Physician) [facility] Service: Gastroenterology ENDOSCOPY SUITE PROCEDURE NOTE Esophagogastroduodenoscopy Indications: Vomiting blood Consent: The benefits, risks (bleeding, perforation, infection and reaction to medication) , and alternatives to the procedure were discussed and informed consent was obtained from th e patient. Preparation: EKG, pulse, pulse oximetry, and blood pressure were monitored throughout the procedure. Medications: MAC Procedure: The gastroscope was passed through the mouth under direct visualization and was advanced with ease to the 2nd portion of the duodenum. The scope was withdrawn and the muco sa was carefully examined. The views were good. There were no apparent complications. Findings: Food in stomach and limited exam Specimens: Complications: None; patient tolerated the procedure well. Impression: Food in stomach EBL: Minimal Recommendations: Keep NPO and start golytely prep and reschedule EGD with colonoscopy in A M APOLLO MAS MD 01/10/2015 documented in this encount er Plan of Treatment +--------+---------+ + + + | Date | Type | Specialty | Care Team | Description | +--------+---------+ + + + | 12/11/ | Office | Neurosurgery | Veto Hernandes, | | | 2020 | Visit | | SALES PRODUCT SPECIALIST [address] | | | | | | [place] [address] | | | | | | [phone] | | | | | | | [...] EXTERNAL | | | | performed at [facility];[address] | g/dL | LAB | | | | [address];[place] | | | | | | [address] | | | | + + + + + + | Hematocrit, | 30.2 (L)Comment: Testing | 34.0 - 46.0 % | EXTERNAL | | | POC | performed at [facility];[address] | | LAB | | | | [address];[place] | | | | | | [address] | | | | + + + [...] K/uL | LAB | | | | [address], | | | | | | [place] [address] | | | | + + + + + + | Red Blood | 3.21 (L)Comment: Testing | 3.70 - 5.10 | EXTERNAL | | | Cells | performed at [facility], [address] | M/uL | LAB | | | Counted | [address], | | | | | | [place] [address] | | | | + + + + + + | Hemoglobin | 9.5 (L)Comment: Testing | 11.3 - 15.5 | EXTERNAL | | | | performed at [facility], [address] | g/dL | LAB | | | | [address], | | | | | | [place] [address] | | | | + + + + + + | Hematocrit, | 29.9 (L)Comment: Testing | 34.0 - 46.0 % | EXTERNAL | | | POC | performed at [facility], [address] | | LAB | | | | [address], | | | | | | [place] [address] | | | | + + + + + + | MCV | 93.2Comment: Testing | 80.0 - 100.0 fl | EXTERNAL | | | | performed at [facility], [address] | | LAB | | | | [address], | | | | | | [place] [address] | | | | + + + + + + | MCH | 29.5Comment: Testing | 27.0 - 34.0 pg | EXTERNAL | | | | performed at [facility], [address] | | LAB | | | | [address], | | | | | | [place] [address] | | | | + + + + + + | MCHC | 31.7 (L)Comment: Testing | 32.0 - 35.5 | EXTERNAL | | | | performed at [facility], [address] | g/dL | LAB | | | | [address], | | | | | | [place] [address] | | | | + + + + + + | RDW-CV | 47.7Comment: Testing | 37 - 53 fl | EXTERNAL | | | | performed at [facility], [address] | | LAB | | | | [address], | | | | | | [place] [address] | | | | + + + + + + | Platelet | 172Comment: Testing | 150 - 400 K/uL | EXTERNAL | | | Count | performed at [facility], [address] | | LAB | | | Plasma | [address], | | | | | | [place] [address] | | | | + + + + + + | MPV | 8.6Comment: Testing | fl | EXTERNAL | | | | performed at [facility], [address] | | LAB | | | | [address], | | | | | | [place] [address] | | | | + + + + + + | Differentia | AUTOMATEDComment: | | EXTERNAL | | | l Type | Testing performed at | | LAB | | | | [facility], [address] | | | | | | [place] | | | | | | [address] | | | | + + + + + + | % Segmented | 45.95Comment: Testing | % | EXTERNAL | | | | performed at [facility], [address] | | LAB | | | Neutrophils | [address], | | | | | | [place] [address] | | | | + + + + + + | % | 37.77Comment: Testing | % | EXTERNAL | | | Lymphocytes | performed at [facility], [address] | | LAB | | | | [address], | | | | | | [place] [address] | | | | + + + + + + | % Monocytes | 8.27Comment: Testing | % | EXTERNAL | | | | performed at [facility], [address] | | LAB | | | | [address], | | | | | | [place] [address] | | | | + + + + + + | % | 7.21Comment: Testing | % | EXTERNAL | | | Eosinophils | performed at [facility], [address] | | LAB | | | | [address], | | | | | | [place] [address] | | | | + + + + + + | % Basophils | 0.80Comment: Testing | % | EXTERNAL | | | | performed at [facility], [address] | | LAB | | | | [address], | | | | | | [place] [address] | | | | + + + + + + | Absolute | 2.11Comment: Testing | 1.90 - 7.40 | EXTERNAL | | | Segmented | performed at [facility], [address] | K/uL | LAB | | | Neutrophils | [address], | | | | | | [place] [address] | | | | + + + + + + | Absolute | 1.73Comment: Testing | 1.00 - 3.90 | EXTERNAL | | | Lymphocytes | performed at [facility], [address] | K/uL | LAB | | | | [address], | | | | | | [place] [address] | | | | + + + + + + | Absolute | 0.38Comment: Testing | 0.00 - 0.80 | EXTERNAL | | | Monocytes | performed at [facility], [address] | K/uL | LAB | | | | [address], | | | | | | [place] [address] | | | | + + + + + + | Absolute | 0.33Comment: Testing | 0.00 - 0.50 | EXTERNAL | | | Eosinophils | performed at [facility], [address] | K/uL | LAB | | | | [address], | | | | | | [place] [address] | | | | + + + + + + | Absolute | 0.04Comment: Testing | 0.00 - 0.10 | EXTERNAL | | | Basophils | performed at [facility], [address] | K/uL | LAB | | | | [address], | | | | | | [place] [address] | | | | + + + [...] EXTERNAL | | | | performed at [facility], [address] | | LAB | | | | [address], | | | | | | [place] [address] | | | | + + + [...] | | | | | [place] [address] | | | | + + + [...] | | | | | [place] [address] | | | | + + + + + + | K | 3.9Comment: Testing | 3.5 - 4.9 | EXTERNAL | | | | performed at [facility], [address] | mmol/L | LAB | | | | [address], | | | | | | [place] [address] | | | | + + + + + + | Cl | 116 (H)Comment: Testing | 99 - 109 mmol/L | EXTERNAL | | | | performed at [facility], [address] | | LAB | | | | [address], | | | | | | [place] [address] | | | | + + + + + + | CO2 | 24Comment: Testing | 23 - 32 mmol/L | EXTERNAL | | | | performed at [facility], [address] | | LAB | | | | [address], | | | | | | [place] [address] | | | | + + + + + + | Anion Gap | 2 (L)Comment: Testing | 5 - 20 mmol/L | EXTERNAL | | | | performed at [facility], [address] | | LAB | | | | [address], | | | | | | [place] [address] | | | | + + + + + + | Glucose, | 98Comment: Testing | 65 - 99 mg/dL | EXTERNAL | | | Fasting | performed at [facility], [address] | | LAB | | | | [address], | | | | | | [place] [address] | | | | + + + + + + | BUN | 7 (L)Comment: Testing | 8 - 25 mg/dL | EXTERNAL | | | | performed at [facility], [address] | | LAB | | | | [address], | | | | | | [place] [address] | | | | + + + + + + | Creatinine | 0.58Comment: Testing | 0.50 - 1.00 | EXTERNAL | | | | performed at [facility], [address] | mg/dL | LAB | | | | [address], | | | | | | [place] [address] | | | | + + + + + + | BUN/Creatin | 12Comment: Testing | | EXTERNAL | | | ine Ratio | performed at [facility], [address] | | LAB | | | | [address], | | | | | | [place] [address] | | | | + + + + + + | Calcium | 8.2 (L)Comment: Testing | 8.5 - 10.5 | EXTERNAL | | | | performed at [facility], [address] | mg/dL | LAB | | | | [address], | | | | | | [place] [address] | | | | + + + + + + | Protein, | 5.8 (L)Comment: Testing | 6.3 - 8.2 g/dL | EXTERNAL | | | Total | performed at [facility], [address] | | LAB | | | | [address], | | | | | | [place] [address] | | | | + + + + + + | Albumin | 2.6 (L)Comment: Testing | 3.6 - 5.0 g/dL | EXTERNAL | | | | performed at [facility], [address] | | LAB | | | | [address], | | | | | | [place] [address] | | | | + + + + + + | Globulin | 3.2Comment: Testing | 1.3 - 4.9 g/dL | EXTERNAL | | | | performed at [facility], [address] | | LAB | | | | [address], | | | | | | [place] [address] | | | | + + + + + + | A/G Ratio | 0.8 (L)Comment: Testing | 1.0 - 2.4 | EXTERNAL | | | | performed at [facility], [address] | | LAB | | | | [address], | | | | | | [place] [address] | | | | + + + + + + | Bilirubin | 0.2Comment: Testing | 0.1 - 1.5 mg/dL | EXTERNAL | | | Total | performed at [facility], [address] | | LAB | | | | [address], | | | | | | [place] [address] | | | | + + + + + + | ALP, | 77Comment: Testing | 35 - 115 U/L | EXTERNAL | | | External | performed at [facility], [address] | | LAB | | | | [address], | | | | | | [place] [address] | | | | + + + + + + | AST | 96 (H)Comment: Testing | 10 - 45 U/L | EXTERNAL | | | | performed at [facility], [address] | | LAB | | | | [address], | | | | | | [place] [address] | | | | + + + + + + | ALT | 115 (H)Comment: Testing | 10 - 65 U/L | EXTERNAL | | | | performed at [facility], [address] | | LAB | | | | [address], | | | | | | [place] [address] | | | | + + + [...] | | | | | [place] [address] | | | | + + + [...] EXTERNAL | | | | performed at [facility];[address] | g/dL | LAB | | | | [address];[place] | | | | | | [address] | | | | + + + + + + | Hematocrit, | 29.8 (L)Comment: Testing | 34.0 - 46.0 % | EXTERNAL | | | POC | performed at [facility];[address] | | LAB | | | | [address];[place] | | | | | | [address] | | | | + + + [...] EXTERNAL | | | | performed at [facility];[address] | g/dL | LAB | | | | [address];[place] | | | | | | [address] | | | | + + + + + + | Hematocrit, | 29.0 (L)Comment: Testing | 34.0 - 46.0 % | EXTERNAL | | | POC | performed at [facility];[address] | | LAB | | | | [address];[place] | | | | | | [address] | | | | + + + [...] EXTERNAL | | | | performed at [facility];[address] | g/dL | LAB | | | | [address];[place] | | | | | | [address] | | | | + + + + + + | Hematocrit, | 30.1 (L)Comment: Testing | 34.0 - 46.0 % | EXTERNAL | | | POC | performed at [facility];[address] | | LAB | | | | [address];[place] | | | | | | [address] | | | | + + + [...] EXTERNAL | | | | performed at [facility], [address] | K/uL | LAB | | | | [address], | | | | | | [place] [address] | | | | + + + + + + | Red Blood | 3.28 (L)Comment: Testing | 3.70 - 5.10 | EXTERNAL | | | Cells | performed at [facility], [address] | M/uL | LAB | | | Counted | [address], | | | | | | [place] [address] | | | | + + + + + + | Hemoglobin | 9.9 (L)Comment: Testing | 11.3 - 15.5 | EXTERNAL | | | | performed at [facility], [address] | g/dL | LAB | | | | [address], | | | | | | [place] [address] | | | | + + + + + + | Hematocrit, | 30.6 (L)Comment: Testing | 34.0 - 46.0 % | EXTERNAL | | | POC | performed at [facility], [address] | | LAB | | | | [address], | | | | | | [place] [address] | | | | + + + + + + | MCV | 93.3Comment: Testing | 80.0 - 100.0 fl | EXTERNAL | | | | performed at [facility], [address] | | LAB | | | | [address], | | | | | | [place], [place] [address] | | | | + + + + + + | MCH | 30.0Comment: Testing | 27.0 - 34.0 pg | EXTERNAL | | | | performed at [facility], [address] | | LAB | | | | [address], | | | | | | [place], [place] [address] | | | | + + + + + + | MCHC | 32.2Comment: Testing | 32.0 - 35.5 | EXTERNAL | | | | performed at [facility], [address] | g/dL | LAB | | | | [address], | | | | | | [place] [address] | | | | + + + + + + | RDW-CV | 47.7Comment: Testing | 37 - 53 fl | EXTERNAL | | | | performed at [facility], [address] | | LAB | | | | [address], | | | | | | [place] [address] | | | | + + + + + + | Platelet | 158Comment: Testing | 150 - 400 K/uL | EXTERNAL | | | Count | performed at [facility], [address] | | LAB | | | Plasma | [address], | | | | | | [place] [address] | | | | + + + + + + | MPV | 8.9Comment: Testing | fl | EXTERNAL | | | | performed at [facility], [address] | | LAB | | | | [address], | | | | | | [place] [address] | | | | + + + + + + | Differentia | AUTOMATEDComment: | | EXTERNAL | | | l Type | Testing performed at | | LAB | | | | [facility], [address] | | | | | | [place] | | | | | | [address] | | | | + + + + + + | % Segmented | 56.56Comment: Testing | % | EXTERNAL | | | | performed at [facility], [address] | | LAB | | | Neutrophils | [address], | | | | | | [place] [address] | | | | + + + + + + | % | 29.02Comment: Testing | % | EXTERNAL | | | Lymphocytes | performed at [facility], [address] | | LAB | | | | [address], | | | | | | [place] [address] | | | | + + + + + + | % Monocytes | 8.64Comment: Testing | % | EXTERNAL | | | | performed at [facility], [address] | | LAB | | | | [address], | | | | | | [place] [address] | | | | + + + + + + | % | 5.18Comment: Testing | % | EXTERNAL | | | Eosinophils | performed at [facility], [address] | | LAB | | | | [address], | | | | | | [place] [address] | | | | + + + + + + | % Basophils | 0.60Comment: Testing | % | EXTERNAL | | | | performed at [facility], [address] | | LAB | | | | [address], | | | | | | [place] [address] | | | | + + + + + + | Absolute | 3.12Comment: Testing | 1.90 - 7.40 | EXTERNAL | | | Segmented | performed at [facility], [address] | K/uL | LAB | | | Neutrophils | [address], | | | | | | [place] [address] | | | | + + + + + + | Absolute | 1.60Comment: Testing | 1.00 - 3.90 | EXTERNAL | | | Lymphocytes | performed at [facility], [address] | K/uL | LAB | | | | [address], | | | | | | [place] [address] | | | | + + + + + + | Absolute | 0.48Comment: Testing | 0.00 - 0.80 | EXTERNAL | | | Monocytes | performed at [facility], [address] | K/uL | LAB | | | | [address], | | | | | | [place] [address] | | | | + + + + + + | Absolute | 0.29Comment: Testing | 0.00 - 0.50 | EXTERNAL | | | Eosinophils | performed at [facility], [address] | K/uL | LAB | | | | [address], | | | | | | [place] [address] | | | | + + + + + + | Absolute | 0.03Comment: Testing | 0.00 - 0.10 | EXTERNAL | | | Basophils | performed at [facility], [address] | K/uL | LAB | | | | [address], | | | | | | [place] [address] | | | | + + + [...] EXTERNAL | | | | performed at [facility], [address] | | LAB | | | | [address], | | | | | | [place] [address] | | | | + + + [...] EXTERNAL | | | | performed at [facility], [address] | | LAB | | | | [facility], | | | | | | [place] [address] | | | | + + + [...] EXTERNAL | | | | performed at [facility], [address] | mmol/L | LAB | | | | [address], | | | | | | [place] [address] | | | | + + + + + + | K | 4.0Comment: Testing | 3.5 - 4.9 | EXTERNAL | | | | performed at [facility], [address] | mmol/L | LAB | | | | [address], | | | | | | [place] [address] | | | | + + + + + + | Cl | 117 (H)Comment: Testing | 99 - 109 mmol/L | EXTERNAL | | | | performed at [facility], [address] | | LAB | | | | [address], | | | | | | [place] [address] | | | | + + + + + + | CO2 | 18 (L)Comment: Testing | 23 - 32 mmol/L | EXTERNAL | | | | performed at [facility], [address] | | LAB | | | | [address], | | | | | | [place] [address] | | | | + + + + + + | Anion Gap | 7Comment: Testing | 5 - 20 mmol/L | EXTERNAL | | | | performed at [facility], [address] | | LAB | | | | [address], | | | | | | [place] [address] | | | | + + + + + + | Glucose, | 137 (H)Comment: Testing | 65 - 99 mg/dL | EXTERNAL | | | Fasting | performed at [facility], [address] | | LAB | | | | [address], | | | | | | [place] [address] | | | | + + + + + + | BUN | 8Comment: Testing | 8 - 25 mg/dL | EXTERNAL | | | | performed at [facility], [address] | | LAB | | | | [address], | | | | | | [place] [address] | | | | + + + + + + | Creatinine | 0.57Comment: Testing | 0.50 - 1.00 | EXTERNAL | | | | performed at [facility], [address] | mg/dL | LAB | | | | [address], | | | | | | [place] [address] | | | | + + + + + + | BUN/Creatin | 14Comment: Testing | | EXTERNAL | | | ine Ratio | performed at [facility], [address] | | LAB | | | | [address], | | | | | | [place] [address] | | | | + + + + + + | Calcium | 8.2 (L)Comment: Testing | 8.5 - 10.5 | EXTERNAL | | | | performed at [facility], [address] | mg/dL | LAB | | | | [address], | | | | | | [place] [address] | | | | + + + + + + | Protein, | 5.9 (L)Comment: Testing | 6.3 - 8.2 g/dL | EXTERNAL | | | Total | performed at [facility], [address] | | LAB | | | | [address], | | | | | | [place] [address] | | | | + + + + + + | Albumin | 2.5 (L)Comment: Testing | 3.6 - 5.0 g/dL | EXTERNAL | | | | performed at [facility], [address] | | LAB | | | | [address], | | | | | | [place] [address] | | | | + + + + + + | Globulin | 3.4Comment: Testing | 1.3 - 4.9 g/dL | EXTERNAL | | | | performed at [facility], [address] | | LAB | | | | [address], | | | | | | [place] [address] | | | | + + + + + + | A/G Ratio | 0.7 (L)Comment: Testing | 1.0 - 2.4 | EXTERNAL | | | | performed at [facility], [address] | | LAB | | | | [address], | | | | | | [place] [address] | | | | + + + + + + | Bilirubin | 0.3Comment: Testing | 0.1 - 1.5 mg/dL | EXTERNAL | | | Total | performed at [facility], [address] | | LAB | | | | [address], | | | | | | [place] [address] | | | | + + + + + + | ALP, | 74Comment: Testing | 35 - 115 U/L | EXTERNAL | | | External | performed at [facility], [address] | | LAB | | | | [address], | | | | | | [place] [address] | | | | + + + + + + | AST | 160 (H)Comment: Testing | 10 - 45 U/L | EXTERNAL | | | | performed at [facility], [address] | | LAB | | | | [address], | | | | | | [place] [address] | | | | + + + + + + | ALT | 135 (H)Comment: Testing | 10 - 65 U/L | EXTERNAL | | | | performed at [facility], [address] | | LAB | | | | [address], | | | | | | [place] [address] | | | | + + + [...] | | | | | | at [facility], [address] | | | | | | [address], | | | | | | [place] [address] | | | | + + + [...] EXTERNAL | | | | performed at [facility];888 | g/dL | LAB | | | | [address];[place] | | | | | | [address] | | | | + + + + + + | Hematocrit, | 31.4 (L)Comment: Testing | 34.0 - 46.0 % | EXTERNAL | | | POC | performed at [facility];[address] | | LAB | | | | [address];[place], [place] | | | | | | [address] | | | | + + + [...] | | technical preparation was performed by [facility] | | | [address] [address] | | | (Dock Pumper: Maximiliano Smith M.D.; [facility]#: [id number]). | | | Diagnostician: Adela Mixon MD [...] EXTERNAL | | | | performed at [facility];[address] | g/dL | LAB | | | | [address];[place], [place] | | | | | | [address] | | | | + + + + + + | Hematocrit, | 30.5 (L)Comment: Testing | 34.0 - 46.0 % | EXTERNAL | | | POC | performed at [facility];[address] | | LAB | | | | [address];[place] | | | | | | [address] | | | | + + + [...] | | | | | | at [facility];[address] | | | | | | [address];[place] [address] | | | | + + + + + + | Methampheta | POSITIVE (A)Comment: | | EXTERNAL | | | mine | The cutoff for a | | LAB | | | Screen, UA, | positive mAMP is 1000 | | | | | POC | ng/mL.Testing performed | | | | | | at [facility];[address] | | | | | | [address];[place] [address] | | | | + + + [...] | | | Screen, | performed at [facility];[address] | | | | | UA, POC | [address];[place], [place] | | | | | | [address] | | | | + + + + + + | Barbiturate | NEGATIVEComment: | | EXTERNAL | | | s Screen, | Positive cutoff for | | LAB | | | Urine | SHAUNA = 200 ng/mLTesting | | | | | | performed at [facility];[address] | | | | | | [address];[place] | | | | | | [address] | | | | + + + + + + | Benzodiazep | NEGATIVEComment: | | EXTERNAL | | | aura | Positive cutoff for | | LAB | | | Screen, | BENZO = 200 ng/mLTesting | | | | | Urine | performed at [facility];[address] | | | | | | [address];[place] | | | | | | [address] | | | | + + + + + + | Cocaine | NEGATIVEComment: | | EXTERNAL | | | | Positive cutoff for | | LAB | | | | MARYAM = 300 ng/mLTesting | | | | | | performed at [facility];[address] | | | | | | [address];[place] | | | | | | [address] | | | | + + + + + + | Methadone | NEGATIVEComment: | | EXTERNAL | | | | Positive cutoff for | | LAB | | | | MTD = 300 ng/mLTesting | | | | | | performed at [facility];[address] | | | | | | [address];[place] | | | | | | [address] | | | | + + + + + + | Opiates | POSITIVE (A)Comment: | | EXTERNAL | | | | Positive cutoff for | | LAB | | | | OPI = 300 ng/mLTesting | | | | | | performed at [facility];[address] | | | | | | [address];[place] | | | | | | [address] | | | | + + + + + + | PCP | NEGATIVEComment: | | EXTERNAL | | | | Positive cutoff for PCP | | LAB | | | | = 25 ng/mLTesting | | | | | | performed at [facility];[address] | | | | | | [address];[place] | | | | | | [address] | | | | + + + [...] | | | | | performed at [facility] | | | | | | [facility];[place], [place] | | | | | | [address] | | | | + + + [...] EXTERNAL | | | | performed at [facility];888 | g/dL | LAB | | | | [address];[place] | | | | | | [address] | | | | + + + + + + | Hematocrit, | 31.2 (L)Comment: Testing | 34.0 - 46.0 % | EXTERNAL | | | POC | performed at [facility];[address] | | LAB | | | | [address];[place] | | | | | | [address] | | | | + + + [...] | | | | | [place] [address] | | | | + + + + + + | TIBC | 282Comment: Testing | 260 - 490 ug/dL | EXTERNAL | | | | performed at [facility], [address] | | LAB | | | | [address], | | | | | | [place] [address] | | | | + + + + + + | Iron | 12 (L)Comment: Testing | 15 - 50 % | EXTERNAL | | | Saturation | performed at [facility], [address] | | LAB | | | | [address], | | | | | | [place] [address] | | | | + + + [...] | | | Reticulocyt | performed at L, [address] | | LAB | | | e Count | [address], | | | | | | [place] [address] | | | | + + + [...] EXTERNAL | | | | performed at [facility], [address] | | LAB | | | | [address], | | | | | | [place] [address] | | | | + + + [...] | | | External | performed at [facility], [address] | | LAB | | | | [address], | | | | | | [place] [address] | | | | + + + [...] | | | B-12 | performed at [facility], [address] | pg/mL | LAB | | | | [address], | | | | | | [place] [address] | | | | + + + [...] | | | | | performed at [facility] | | | | | | [facility];[place], [place] | | | | | | [address] | | | | + + + [...] K/uL | LAB | | | | [facility], [address] | | | | | | [place] | | | | | | [address] | | | | + + + + + + | Red Blood | 3.57 (L)Comment: Testing | 3.70 - 5.10 | EXTERNAL | | | Cells | performed at [facility], [address] | M/uL | LAB | | | Counted | [address], | | | | | | [place] [address] | | | | + + + + + + | Hemoglobin | 10.6 (L)Comment: Testing | 11.3 - 15.5 | EXTERNAL | | | | performed at [facility], [address] | g/dL | LAB | | | | [address], | | | | | | [place] [address] | | | | + + + + + + | Hematocrit, | 33.0 (L)Comment: Testing | 34.0 - 46.0 % | EXTERNAL | | | POC | performed at [facility], [address] | | LAB | | | | [address], | | | | | | [place] [address] | | | | + + + + + + | MCV | 92.5Comment: Testing | 80.0 - 100.0 fl | EXTERNAL | | | | performed at [facility], [address] | | LAB | | | | [address], | | | | | | [place] [address] | | | | + + + + + + | MCH | 29.8Comment: Testing | 27.0 - 34.0 pg | EXTERNAL | | | | performed at [facility], [address] | | LAB | | | | [address], | | | | | | [place] [address] | | | | + + + + + + | MCHC | 32.2Comment: Testing | 32.0 - 35.5 | EXTERNAL | | | | performed at [facility], [address] | g/dL | LAB | | | | [address], | | | | | | [place] [address] | | | | + + + + + + | RDW-CV | 46.4Comment: Testing | 37 - 53 fl | EXTERNAL | | | | performed at [facility], [address] | | LAB | | | | [address], | | | | | | [place] [address] | | | | + + + + + + | Platelet | 184Comment: Testing | 150 - 400 K/uL | EXTERNAL | | | Count | performed at [facility], [address] | | LAB | | | Plasma | [address], | | | | | | [place] [address] | | | | + + + + + + | MPV | 8.9Comment: Testing | fl | EXTERNAL | | | | performed at [facility], [address] | | LAB | | | | [address], | | | | | | [place] [address] | | | | + + + + + + | Differentia | AUTOMATEDComment: | | EXTERNAL | | | l Type | Testing performed at | | LAB | | | | [facility], [address] | | | | | | [place] | | | | | | [address] | | | | + + + + + + | % Segmented | 68.68Comment: Testing | % | EXTERNAL | | | | performed at [facility], [address] | | LAB | | | Neutrophils | [address], | | | | | | [place] [address] | | | | + + + + + + | % | 18.26Comment: Testing | % | EXTERNAL | | | Lymphocytes | performed at [facility], [address] | | LAB | | | | [address], | | | | | | [place] [address] | | | | + + + + + + | % Monocytes | 8.60Comment: Testing | % | EXTERNAL | | | | performed at [facility], [address] | | LAB | | | | [address], | | | | | | [place] [address] | | | | + + + + + + | % | 4.07Comment: Testing | % | EXTERNAL | | | Eosinophils | performed at [facility], [address] | | LAB | | | | [address], | | | | | | [place] [address] | | | | + + + + + + | % Basophils | 0.39Comment: Testing | % | EXTERNAL | | | | performed at [facility], [address] | | LAB | | | | [address], | | | | | | [place] [address] | | | | + + + + + + | Absolute | 7.84 (H)Comment: Testing | 1.90 - 7.40 | EXTERNAL | | | Segmented | performed at [facility], [address] | K/uL | LAB | | | Neutrophils | [address], | | | | | | [place] [address] | | | | + + + + + + | Absolute | 2.08Comment: Testing | 1.00 - 3.90 | EXTERNAL | | | Lymphocytes | performed at [facility], [address] | K/uL | LAB | | | | [address], | | | | | | [place] [address] | | | | + + + + + + | Absolute | 0.98 (H)Comment: Testing | 0.00 - 0.80 | EXTERNAL | | | Monocytes | performed at [facility], [address] | [address]/uL | LAB | | | | [address], | | | | | | [place] [address] | | | | + + + + + + | Absolute | 0.47Comment: Testing | 0.00 - 0.50 | EXTERNAL | | | Eosinophils | performed at [facility], [address] | K/uL | LAB | | | | [address], | | | | | | [place] [address] | | | | + + + + + + | Absolute | 0.05Comment: Testing | 0.00 - 0.10 | EXTERNAL | | | Basophils | performed at [facility], [address] | K/uL | LAB | | | [address], | | | | | | [place] [address] | | | | + + + [...] EXTERNAL | | | | performed at [facility] | | LAB | | | | [address];[place], [place] | | | | | | [address] | | | | + + + [...] EXTERNAL | | | | performed at [facility];[address] | | LAB | | | | [address];[place], [place] | | | | | | [address] | | | | + + + [...] + + | Hemoglobin | 5.5Comment: [place] | 4.0 - 6.0 % | EXTERNAL [...] | | | | | performed at [facility], [address] | | | | | | [address], | | | | | | [place] [address] | | | | + + + [...] | | | | | performed at [facility], [address] | | | | | | [facility], | | | | | | [place] [address] | | | | + + + [...] EXTERNAL | | | | performed at [facility];[address] | mmol/L | LAB | | | | [address];[place] | | | | | | [address] | | | | + + + + + + | K | 3.7Comment: Testing | 3.5 - 4.9 | EXTERNAL | | | | performed at [facility];[address] | mmol/L | LAB | | | | [address];[place] | | | | | | [address] | | | | + + + + + + | Cl | 112 (H)Comment: Testing | 99 - 109 mmol/L | EXTERNAL | | | | performed at [facility];[address] | | LAB | | | | [address];[place] | | | | | | [address] | | | | + + + + + + | CO2 | 22 (L)Comment: Testing | 23 - 32 mmol/L | EXTERNAL | | | | performed at [facility];[address] | | LAB | | | | [address];[place] | | | | | | [address] | | | | + + + + + + | Anion Gap | 11Comment: Testing | 5 - 20 mmol/L | EXTERNAL | | | | performed at [facility];[address] | | LAB | | | | [address];[place] | | | | | | [address] | | | | + + + + + + | Glucose, | 92Comment: Testing | 65 - 99 mg/dL | EXTERNAL | | | Fasting | performed at [facility];[address] | | LAB | | | | [address];[place] | | | | | | [address] | | | | + + + + + + | BUN | 18Comment: Testing | 8 - 25 mg/dL | EXTERNAL | | | | performed at [facility];[address] | | LAB | | | | [address];[place] | | | | | | [address] | | | | + + + + + + | Creatinine | 0.97Comment: Testing | 0.50 - 1.00 | EXTERNAL | | | | performed at [facility];888 | mg/dL | LAB | | | | [address];[place] | | | | | | [address] | | | | + + + + + + | BUN/Creatin | 19Comment: Testing | | EXTERNAL | | | ine Ratio | performed at [facility];[address] | | LAB | | | | [address];[place] | | | | | | [address] | | | | + + + + + + | Calcium | 7.7 (L)Comment: Testing | 8.5 - 10.5 | EXTERNAL | | | | performed at [facility];888 | mg/dL | LAB | | | | [address];[place] | | | | | | [address] | | | | + + + + + + | Protein, | 7.2Comment: Testing | 6.3 - 8.2 g/dL | EXTERNAL | | | Total | performed at [facility];[address] | | LAB | | | | [address];[place] | | | | | | [address] | | | | + + + + + + | Albumin | 2.7 (L)Comment: Testing | 3.6 - 5.0 g/dL | EXTERNAL | | | | performed at [facility];[address] | | LAB | | | | [address];[place] | | | | | | [address] | | | | + + + + + + | Globulin | 4.5Comment: Testing | 1.3 - 4.9 g/dL | EXTERNAL | | | | performed at [facility];[address] | | LAB | | | | [address];[place] | | | | | | [address] | | | | + + + + + + | A/G Ratio | 0.6 (L)Comment: Testing | 1.0 - 2.4 | EXTERNAL | | | | performed at [facility];[address] | | LAB | | | | [address];[place] | | | | | | [address] | | | | + + + + + + | Bilirubin | 1.0Comment: Testing | 0.1 - 1.5 mg/dL | EXTERNAL | | | Total | performed at [facility];[address] | | LAB | | | | [address];[place] | | | | | | [address] | | | | + + + + + + | ALP, | 100Comment: Testing | 35 - 115 U/L | EXTERNAL | | | External | performed at [facility];[address] | | LAB | | | | [address];[place] | | | | | | [address] | | | | + + + + + + | AST | 311 (H)Comment: Testing | 10 - 45 U/L | EXTERNAL | | | | performed at [facility];[address] | | LAB | | | | [address];[place] | | | | | | [address] | | | | + + + + + + | ALT | 236 (H)Comment: Testing | 10 - 65 U/L | EXTERNAL | | | | performed at [facility];[address] | | LAB | | | | [address];[place] | | | | | | [address] | | | | + + + [...] | | | | | | at [facility];[address];[place] [address] | | | | + + + [...] EXTERNAL | | | | performed at [facility];888 | g/dL | LAB | | | | [address];[place] | | | | | | [address] | | | | + + + + + + | Hematocrit, | 32.4 (L)Comment: Testing | 34.0 - 46.0 % | EXTERNAL | | | POC | performed at [facility];[address] | | LAB | | | | [address];[place] | | | | | | [address] | | | | + + + [...] | EXTERNAL LAB | | performed at [facility];[address] [facility];[place] [address] 027 NAP1 BI | | | 027 NAP1 BI PRESUMPTIVE NEGATIVE | | | Detection of 027 NAP1 BI strains of C. difficile is presumptive and | | | for epidemiological purposes and not intended to guide or monitor | | | treatment for C. difficile infections. Testing performed at [facility];[address] | | | [facility];[place] [address] | | + + + + +---------+ [...] Performed At | + + + | [facility] S[facility] 01/10/2015 7:57 PM HISTORY: 54 | | | years. Female. Difficulty emptying bladder. Assess for | | | obstructive uropathy. TECHNIQUE: Imaging was performed using a 4 | | | MHz curved array transducer. COMPARISON: None. | | + + + + + | Procedure Note | + + | Nikita Hearn - 01/17/2019 12:26 AM PDT [facility] CHRISTOPHER BLADDER01/10/2015 7:57 | | PM HISTORY:54 [...] Performed At | + + + | [facility] ESPITIA US ABDOMEN COMPLETE 01/10/2015 7:57 PM [...] | Procedure Note | + -+ | Nikita Hearn Conversion - 01/17/2019 12:26 AM PDT [facility] ESPITIA ABDOMEN | | COMPLETE01/10/2015 7:57 PM HISTORY:54 [...] EXTERNAL | | | | performed at [facility];888 | g/dL | LAB | | | | [facility];[place], [place] | | | | | | [address] | | | | + + + + + + | Hematocrit, | 34.4Comment: Testing | 34.0 - 46.0 % | EXTERNAL | | | POC | performed at [facility];[address] | | LAB | | | | [address];[place] | | | | | | [address] | | | | + + + [...] LAB | | | | performed at [facility], [address] | | | | | [address], | | | | | | [place] [address] | | | | + + + [...] | | | | | [place] [address] | | | | + + + + + + | Clarity | CLEARComment: Testing | | EXTERNAL | | | | performed at [facility], [address] | | LAB | | | | [address], | | | | | | [place] [address] | | | | + + + + + + | Specific | 1.017Comment: Testing | 1.002 - 1.030 | EXTERNAL | | | [place], | performed at [facility], [address] | | LAB | | | Urine | [address], | | | | | | [place] [address] | | | | + + + + + + | Leukocyte | NEGATIVEComment: Testing | | EXTERNAL | | | Esterase, | performed at [facility], [address] | | LAB | | | Urine | [address], | | | | | | [place] [address] | | | | + + + + + + | Nitrite, | NEGATIVEComment: Testing | | EXTERNAL | | | Urine | performed at [facility], [address] | | LAB | | | | [address], | | | | | | [place] [address] | | | | + + + + + + | Urobilinoge | 0.2Comment: Testing | mg/dL | EXTERNAL | | | n, Urine | performed at [facility], [address] | | LAB | | | | [address], | | | | | | [place] [address] | | | | + + + + + + | Protein, | NEGATIVEComment: Testing | mg/dL | EXTERNAL | | | Urine | performed at [facility], [address] | | LAB | | | | [address], | | | | | | [place] [address] | | | | + + + + + + | pH, Urine | 6.0Comment: Testing | 5.0 - 8.0 | EXTERNAL | | | | performed at [facility], [address] | | LAB | | | | [address], | | | | | | [place] [address] | | | | + + + + + + | Blood, | MODERATE (A)Comment: | | EXTERNAL | | | Urine | Testing performed at | | LAB | | | | [facility], [address] | | | | | | [place] | | | | | | [address] | | | | + + + + + + | Ketones | NEGATIVEComment: Testing | mg/dL | EXTERNAL | | | | performed at [facility], [address] | | LAB | | | | [address], | | | | | | [place] [address] | | | | + + + + + + | Bilirubin, | MODERATE (A)Comment: | | EXTERNAL | | | Urine | Testing performed at | | LAB | | | | [facility], [address] | | | | | | [place] | | | | | | [address] | | | | + + + + + + | Glucose, | NEGATIVEComment: Testing | mg/dL | EXTERNAL | | | Urine | performed at [facility], [address] | | LAB | | | | [address], | | | | | | [place] [address] | | | | + + + [...] | | | | | [place] [address] | | | | + + + + + + | RBC, UA | 1-5Comment: Testing | 0 - 5 /hpf | EXTERNAL | | | | performed at [facility], [address] | | LAB | | | | [address], | | | | | | [place] [address] | | | | + + + + + + | Epithelial | 16-25Comment: Testing | /lpf | EXTERNAL | | | Cells | performed at [facility], [address] | | LAB | | | | [address], | | | | | | [place] [address] | | | | + + + + + + | Bacteria, | 1+ (A)Comment: Testing | | EXTERNAL | | | UA | performed at [facility], [address] | | LAB | | | | [address], | | | | | | [place] [address] | | | | + + + + + + | HYALINE | 0-2Comment: Testing | | EXTERNAL | | | CASTS UA | performed at [facility], [address] | | LAB | | | | [address], | | | | | | [place] [address] | | | | + + + [...] | | EXTERNAL | | | | [facility];[address] | LAB | | | | [address];[place] [address] | | | | + + + + + + | Antibody | NEGATIVE | | EXTERNAL | | | Screen | | | LAB | | + + + + + + | Antibody | Testing performed at | | EXTERNAL | | | Screen | [facility];[address] | | LAB | | | | [address];[place] [address] | | | | + + + + + + | [facility] | [id number] | | EXTERNAL | | | | | | LAB | | + + + + + + | [facility] | Testing performed at | | EXTERNAL | | | | [facility];[address] | | LAB | | | | [address];[place] [address] | | | | + + + [...] WORKUP | | | Testing performed at [facility], [address] [facility] [place] | | | [place] [address] | | + + + + +---------+ [...] | | | Urine | performed at [facility], [address] | | LAB | | | Random | [address], | | | | | | [place] [address] | | | | + + + [...] EXTERNAL | | | | performed at [facility];[address] | | LAB | | | | [address];[place] | | | | | | [address] | | | | + + + + + + | RBC, UA | 0-2Comment: Testing | 0 - 5 /hpf | EXTERNAL | | | | performed at [facility];[address] | | LAB | | | | [address];[place] | | | | | | [address] | | | | + + + + + + | Epithelial | 50-100Comment: Testing | /lpf | EXTERNAL | | | Cells | performed at [facility];[address] | | LAB | | | | [address];[place] | | | | | | [address] | | | | + + + + + + | Bacteria, | 3+ (A)Comment: Testing | | EXTERNAL | | | UA | performed at [facility];[address] | | LAB | | | | [address];[place] | | | | | | [address] | | | | + + + + + + | CASTS | 16-25Comment: FINE | /lpf | EXTERNAL | | | | GRANULARTesting | | LAB | | | | performed at [facility];[address] | | | | | | [address];[place] | | | | | | [address] | | | | + + + [...] Performed At | + + + | [facility] 1960 XR ABDOMEN ACUTE SERIES 01/10/2015 [...] Rad Conversion - 01/17/2019 12:26 AM PDT [facility] ESP[facility]1960XR ABDOMEN | | ACUTE SERIES01/10/2015 9:56 [...] | | | | | performed at [facility];[address] | | | | | | [address];[place] | | | | | | [address] | | | | + + + [...] K/uL | LAB | | | | [facility];[address] | | | | | | [address];[place] [address] | | | | + + + + + + | Red Blood | 4.21Comment: Testing | 3.70 - 5.10 | EXTERNAL | | | Cells | performed at [facility];[address] | M/uL | LAB | | | Counted | [address];[place] | | | | | | [address] | | | | + + + + + + | Hemoglobin | 12.4Comment: Testing | 11.3 - 15.5 | EXTERNAL | | | | performed at [facility];[address] | g/dL | LAB | | | | [address];[place] | | | | | | [address] | | | | + + + + + + | Hematocrit, | 37.6Comment: Testing | 34.0 - 46.0 % | EXTERNAL | | | POC | performed at [facility];[address] | | LAB | | | | [address];[place] | | | | | | [address] | | | | + + + + + + | MCV | 89.4Comment: Testing | 80.0 - 100.0 fl | EXTERNAL | | | | performed at [facility];[address] | | LAB | | | | [address];[place] | | | | | | [address] | | | | + + + + + + | MCH | 29.4Comment: Testing | 27.0 - 34.0 pg | EXTERNAL | | | | performed at [facility];[address] | | LAB | | | | [address];[place] | | | | | | [address] | | | | + + + + + + | MCHC | 32.9Comment: Testing | 32.0 - 35.5 | EXTERNAL | | | | performed at [facility];[address] | g/dL | LAB | | | | [address] | | | | | | [address] | | | | + + + + + + | RDW-CV | 46.4Comment: Testing | 37 - 53 fl | EXTERNAL | | | | performed at [facility];[address] | | LAB | | | | [address] | | | | | | [address] | | | | + + + + + + | Platelet | 251Comment: Testing | 150 - 400 K/uL | EXTERNAL | | | Count | performed at [facility];[address] | | LAB | | | Plasma | [address];[place] | | | | | | [address] | | | | + + + + + + | MPV | 8.3Comment: Testing | fl | EXTERNAL | | | | performed at [facility];[address] | | LAB | | | | [address] | | | | | | [address] | | | | + + + + + + | Differentia | AUTOMATEDComment: | | EXTERNAL | | | l Type | Testing performed at | | LAB | | | | [facility];[address] | | [address];[place] [address] | | | | + + + + + + | % Segmented | 77.07Comment: Testing | % | EXTERNAL | | | | performed at [facility];[address] | | LAB | | | Neutrophils | [address] | | | | | | [address] | | | | + + + + + + | % | 11.95Comment: Testing | % | EXTERNAL | | | Lymphocytes | performed at [facility];[address] | | LAB | | | | [address];[place] | | | | | | [address] | | | | + + + + + + | % Monocytes | 8.49Comment: Testing | % | EXTERNAL | | | | performed at [facility];[address] | | LAB | | | | [address] | | | | | | [address] | | | | + + + + + + | % | 1.48Comment: Testing | % | EXTERNAL | | | Eosinophils | performed at [facility];[address] | | LAB | | | | [address];[place] | | | | | | [address] | | | | + + + + + + | % Basophils | 1.01Comment: Testing | % | EXTERNAL | | | | performed at [facility];[address] | | LAB | | | | [address];[place] | | | | | | [address] | | | | + + + + + + | Absolute | 12.59 (H)Comment: | 1.90 - 7.40 | EXTERNAL | | | Segmented | Testing performed at | K/uL | LAB | | | Neutrophils | [facility];[address] | | | | | [address];[place] [address] | | | | + + + + + + | Absolute | 1.95Comment: Testing | 1.00 - 3.90 | EXTERNAL | | | Lymphocytes | performed at [facility];[address] | K/uL | LAB | | | | [address];[place] | | | | | | [address] | | | | + + + + + + | Absolute | 1.39 (H)Comment: Testing | 0.00 - 0.80 | EXTERNAL | | | Monocytes | performed at [facility];[address] | K/uL | LAB | | | | [address] | | | | | | [address] | | | | + + + + + + | Absolute | 0.24Comment: Testing | 0.00 - 0.50 | EXTERNAL | | | Eosinophils | performed at [facility];[address] | K/uL | LAB | | | | [address];[place] | | | | | | [address] | | | | + + + + + + | Absolute | 0.17 (H)Comment: Testing | 0.00 - 0.10 | EXTERNAL | | | Basophils | performed at [facility];[address] | K/uL | LAB | | | | [address];[place], [place] | | | | | | [address] | | | | + + + [...] EXTERNAL | | | | performed at [facility];[address] | | LAB | | | | [address];[place], [place] | | | | | | [address] | | | | + + + [...] EXTERNAL | | | | performed at [facility];[address] | | LAB | | | | [address];[place] | | | | | | [address] | | | | + + + [...] EXTERNAL | | | | performed at [facility];[address] | | LAB | | | | [address];[place], [place] | | | | | | [address] | | | | + + + [...] EXTERNAL | | | | performed at [facility];[address] | | LAB | | | | [address];[place] | | | | | | [address] | | | | + + + [...] EXTERNAL | | | | performed at [facility];[address] | mmol/L | LAB | | | | [address] | | | | | | [address] | | | | + + + + + + | K | 4.1Comment: Testing | 3.5 - 4.9 | EXTERNAL | | | | performed at [facility];[address] | mmol/L | LAB | | | | [address];[place] | | | | | | [address] | | | | + + + + + + | Cl | 109Comment: Testing | 99 - 109 mmol/L | EXTERNAL | | | | performed at [facility];[address] | | LAB | | | | [address] | | | | | | [address] | | | | + + + + + + | CO2 | 19 (L)Comment: Testing | 23 - 32 mmol/L | EXTERNAL | | | | performed at [facility];[address] | | LAB | | | | [address] | | | | | | [address] | | | | + + + + + + | Anion Gap | 16Comment: Testing | 5 - 20 mmol/L | EXTERNAL | | | | performed at [facility];[address] | | LAB | | | | [address] | | | | | | [address] | | | | + + + + + + | Glucose, | 174 (H)Comment: Testing | 65 - 99 mg/dL | EXTERNAL | | | Fasting | performed at [facility];[address] | | LAB | | | | [address] | | | | | | [address] | | | | + + + + + + | BUN | 42 (H)Comment: Testing | 8 - 25 mg/dL | EXTERNAL | | | | performed at [facility];[address] | | LAB | | | | [address] | | | | | | [address] | | | | + + + + + + | Creatinine | 2.6 (H)Comment: Testing | 0.50 - 1.00 | EXTERNAL | | | | performed at [facility];[address] | mg/dL | LAB | | | | [address] | | | | | | [address] | | | | + + + + + + | BUN/Creatin | 16Comment: Testing | | EXTERNAL | | | ine Ratio | performed at [facility];[address] | | LAB | | | | [address] | | | | | | [address] | | | | + + + + + + | Calcium | 9.0Comment: Testing | 8.5 - 10.5 | EXTERNAL | | | | performed at [facility];[address] | mg/dL | LAB | | | | [address] | | | | | | [address] | | | | + + + + + + | Protein, | 8.6 (H)Comment: Testing | 6.3 - 8.2 g/dL | EXTERNAL | | | Total | performed at [facility];[address] | | LAB | | | | [address] | | | | | | [address] | | | | + + + + + + | Albumin | 3.4 (L)Comment: Testing | 3.6 - 5.0 g/dL | EXTERNAL | | | | performed at [facility];[address] | | LAB | | | | [address] | | | | | | [address] | | | | + + + + + + | Globulin | 5.2 (H)Comment: Testing | 1.3 - 4.9 g/dL | EXTERNAL | | | | performed at [facility];[address] | | LAB | | | | [address];[place] | | | | | | [address] | | | | + + + + + + | A/G Ratio | 0.6 (L)Comment: Testing | 1.0 - 2.4 | EXTERNAL | | | | performed at [facility];[address] | | LAB | | | | [address] | | | | | | [address] | | | | + + + + + + | Bilirubin | 0.5Comment: Testing | 0.1 - 1.5 mg/dL | EXTERNAL | | | Total | performed at [facility];[address] | | LAB | | | | [address] | | | | | | [address] | | | | + + + + + + | ALP, | 127 (H)Comment: Testing | 35 - 115 U/L | EXTERNAL | | | External | performed at [facility];[address] | | LAB | | | | [address] | | | | | | [address] | | | | + + + + + + | AST | 382 (H)Comment: Testing | 10 - 45 U/L | EXTERNAL | | | | performed at [facility];[address] | | LAB | | | | [address] | | | | | | [address] | | | | + + + + + + | ALT | 315 (H)Comment: Testing | 10 - 65 U/L | EXTERNAL | | | | performed at [facility];[address] | | LAB | | | | [address] | | | | | | [address] | | | | + + + [...] | | | | | | at [facility];[address];[place] [address] | | | | + + + [...]
--- OUTSIDE RECORDS SUMMARY | ~2019-12-01 | XMS | Encounter Summary ---
Demographics + + + | Address | [address] | | | [place] [address] | + + + | Home Phone [...] Author | [facility] | | | and [place] | + + + | Organization | [facility] | | | [...] Team Providers + +------+ + | Care Lan Administrator Name | Role | Phone | + +------+ + | Naren Nina PA-C | PCP | | + +------+ + Encounter Details +--------+ + + + + | Date | Type | Department | Care Team | Description | +--------+ + + + + | 05// | Orders Only | [facility] | Mariia Owusu, | | | 2013 | | [facility] | KEEPER HELPER [address] | | | | | CARE [address] | [place] [address] | | | | | [place] | [phone] | | | | | [address] | | | | | | [phone] | | | +--------+ + + + [...] | | 2019 | Visit | | KEEPER HELPER [address] | | | | | | [place] [address] | | | | | | [phone] | | | | | | | [...] | | | | | | DETERMINEDBY [facility] | | | | | | DIVISION [...] + + + + | HCV | [id number] (A)Comment: | [iU]/mL | EXTERNAL | | [...] /uL | EXTERNAL | | | CD4 ([place] | | | LAB | | | [...] | | | | | | DETERMINEDBY [place] | | | | | | [facility] | | | | | | [place]. IT HAS NOT BEEN | | | [...] | | | | | AMENDMENTS OF 1987 | | | | | | ("CLIA") [...] | | | + +---------+ + + Caraime INR (10/08/2013 10:40 AM PDT) + + [...]
--- OUTSIDE RECORDS SUMMARY | ~2019-12-01 | XMS | Clinical Summary ---
Demographics + + + | Address | [address] | | | [place] [address] | + + + | Home Phone [...] Author | [facility] | | | and [place] | + + + | Organization | [facility] | | | and [place] | [...] Team Providers + +------+ + | Care Food Assembler Name | Role | Phone | [...] | | | | | Comments) Used COLLECTION OFFICER | | | | | | and it lowered her | | | | | | BP And medication | | | | | | was stopped Other | | | | | | reaction(s): Other | | | | | | (See Comments) Used | | | | | | COLLECTION OFFICER and it lowered | | | | | | her BP And | | | | | | medication was | | | | | | stopped Used COLLECTION OFFICER | | | | | | and [...] | will have pt speak with the medical coordinator pesticide use today to help | | get this [...] | 12/11/ | Office | Neurosurgery | eVto Hernandes, | | | 2019 | Visit | | [address] | | | | | | [address] | | | | | | [place] [address] | | | | | | [phone] | | | | | | | | +--------+---------+ + + + + + + + + | Health Maintenance | Due Date | Last | Comments | | | | Done | | + + + + + [...] + + + | Vaccine: | | 09/21/19 | | | Pneumococcal 19-64 | 5 | 14 | | | (2 of 3 - PCV13) | | | | + + + + + | Breast Cancer | | | | | Screening | 5 | | | + + + + + | Vaccine: Influenza | | 03/23/20 | | | (Season Ended) | 0 | 10, | | | | | 03/08/20 | | | | | 09 | | + + + + + | Hepatitis C | Completed | 03/01/20 | | | Screening | | , | | | | | 02/16/20 | | | | | 17, | | | | | 09/28/19 | | | | | 17, | | | | | Addition | | | | | al | | | | | history | | | | | exists [...] | | | ETHS | | | /[address] | | | | | | | [...] +---------+--------+ | MEDICAID [place] | MEDICA | [id number] | 09/03/19 | [phone] | | Medica [...] [place] | | | 1 (Home) | [address] | + +--------+ +--------+ + + | Bisi Becker | Person | Self | [birth year] | [address] | | | al/Fam | | 1960 | [phone] | [place] | | | [place] | | | 1 (Home) | [address] | + +--------+ +--------+ + + Advance Directives + + + + + | Type | Date Recorded | Patient | Explanation | | | | Kitchen Utility Associate | | + + + + + | Power of | | | | | Trauma Doctor | | | | + + + + + | Advance | | | | | Directive | | | | + + + + +
--- OUTSIDE RECORDS SUMMARY | ~2019-12-01 | XMS | Encounter Summary ---
Demographics + + + | Address | [address] | | | [place] [address] | + + + | Home Phone | | + + + | Preferred Language | Unknown | + + + | Marital Status | Single | + + + | Quaker Affiliation | [id number] | + + + | Race | Unknown | + + + | Ethnic Group | Unknown | + + + Author + + + | Author | [facility] | | | and [place] | + + + | Organization | [facility] | [...] Team Providers + +------+ + | Care Pari Mutuel Ticket Seller Name | Role | Phone | + +------+ + | Hayden Acevedo MD | PCP | | + +------+ + Encounter Details +--------+ + + + + | Date | Type | Department | Care Team | Description | +--------+ + + + + | 06/22/ | Emergency | [facility] | Navneet Stewart | Cough; | | 2013 | | [facility]ENTER | DO Jazlyn Lopez [address] [place] | Fever; | | | | EMERGENCY CENTER | [place], [place] | Bronchitis; | | | | [address] | [address] | Dyspnea | | | | [place], [place] | | | | | | [address] | | | | | | [phone] | | | +--------+ + + + [...] ED Notes Conversion Transaction, Provider Unknown - 06/22/2013 2:06 PM PSTFormatting of this note m ight be different from the original. ED Notes by Mindy Ramírez RN at 06/22/13 1406 Author: Mindy Ramírez RN Service: (none) Author Type: Registered Nurse Filed: 06/22/13 1407 Date of Service: 06/22/13 1406 Status: Signed Farmworker Machine: Mindy Ramírez RN (Registered Nurse) Road tested, 92% HR 118 Mindy Ramírez RN 06/22/13 1407 onver david Transaction, Provider Unknown - 06/22/2013 12:09 PM PST ED Notes by Mindy Ramírez RN at 06/22/13 1209 Author: Mindy Ramírez RN Service: (none) Author Type: Registered Nurse Filed: 06/22/13 1209 Date of Service: 06/22/13 1209 Status: Signed Farmworker Machine: Mindy Ramírez RN (Registered Nurse) MD at bedside. Mindy Ramírez RN 06/22/13 1209 orsyt Navneet rahman DO - 06/22/2013 11:59 AM PSTFormatting of this note might be different from t josiah original. ED Provider Notes by Navneet Stewart DO at 06/22/13 0726 Author: Navneet Stewart DO Service: (none) Author Type: Physician Filed: 06/22/13 1557 Date of Service: 06/22/13 9452 Status: Signed Farmworker Machine: Navneet Stewart DO (Physician) [facility] Department of Emergency Medicine 06/22/2013 History of Present Illness Patient Identification Nohemi Espitia is a 53 y.o. female. Patient information was obtained from patient. History/Exam limitations: none. Patient presented to the Emergency Department by: Car Chief Complaint Chief Complaint Patient presents with Cough 4-5 days ago Fever Swelling neck swelling and "stiffness" Pt presents to the ED with a productive cough. Onset of symptoms was one month ago but has worsened since 5 days ago, with a constant course since that time. Severity is described as moderate. The patient reports nothing worsens symptoms, and nothing relieves symptoms. Pt a lso complains of fevers and chills, nausea, stinging in the ears, generalized body aches, ne ck pain described as "stiffness". Pt has been taking allergy medication. H/o bronchitis and pneumonia. Pt used a z smiley and prednisone in the past for this. Pt has COPD, high blood pressure, asthma. Past Medical History Diagnosis Date Anxiety Hypertension Past Surgical History Procedure Date Hysterectomy Cholecystectomy Appendectomy Prior to Admission medications Medication Sig Start Date End Date Taking? Authorizing Provider fluoxetine (PROZAC) 40 MG capsule Take 40 mg by mouth daily. Historical Provider lisinopril (PRINIVIL,ZESTRIL) 40 MG tablet Take 40 mg by mouth daily. Historical Provi gee olanzapine (ZYPREXA) 10 MG tablet Take 10 mg by mouth nightly. Historical Provider Varenicline Tartrate (CHANTIX PO) Take by mouth. Historical Provider No Known Allergies History Social History Marital Status: Significant Other Spouse Name: N/A Number of Children: N/A Years of Education: N/A Occupational History Not on file. Social History Main Topics Smoking status: Current Every Day Smoker -- 1 years Smokeless tobacco: Not on file Alcohol Use: No Drug Use: No Sexually Active: Other Topics Concern Not on file Social History Narrative No narrative on file No family history on file. Review of Systems Constitutional: Positive for: fever or chills Ears: Positive for: stinging in the ears Cardiovascular: Negative for: chest pain Respiratory: Positive for: productive cough Negative for: shortness of breath Gastrointestinal: Positive for: nausea Negative for: vomiting or abdominal pain Genitourinary: Negative for: dysuria or flank pain Musculoskeletal: Positive for: generalized body aches and neck stiffness Negative for: myalgias or arthralgias Skin: Negative for: rash or lesion Neuro and psych: Negative for: fainting or dizziness All other systems were reviewed and are subjectively reported as negative. Physical Exam BP 144/82 | Pulse 97 | Temp 97.1 F (36.2 C) (Temporal) | Resp 18 | Wt 105.688 kg (233 l b) | SpO2 95% Vitals: hypertensive otherwise WNL Pulse Oximetry Interpretation: Normal General: Alert, in moderate distress Eyes: Normal inspection, pupils equal and round, non-icteric ENT: Ears normal Nose normal Pharynx normal Neck: Normal inspection Supple Full ROM Tenderness to sinus area No JVD mild lymphadenopathy Cardiovascular: Normal rate and rhythm Respiratory: No respiratory distress Diffuse wheezes bilat Diminished breath sounds bilat Abdomen: Soft, non-tender, non-distended Back: Normal inspection, moves without difficulty Skin: Color normal Warm and dry No rash Extremities: DAWSON Neuro: No gross motor/sensory deficit Medical Decision Making and Emergency Department Course ED Department Course 12:11 PM. Pt presents to the ED with a productive cough. MDM: After introducing myself to t josiah pt, I have performed a careful history and physical examination. I have formulated the di fferential diagnosis that needs to be addressed during this ER visit, briefly discussed this differential with the pt, and then discussed with them the plan of care. I have also addres sed the risks and benefits of all diagnostic and treatment modalities planned for this ED vi sit. DDx includes pneumonia, bronchitis, URI, pharyngitis, flu, vs other. I will order flu t est, CXR, breathing tx. Pt has access to a nebulizer at home. Will road test to evaluate O2. 1:28 PM. Recheck. Increased air movement noted but still with wheezing. Will repeat neb and add flu test. Pt feels well enough to go home. I discussed if O2 drops below 90 percent we will have to discuss admission. On road test 92 percent O2, improved to 95% after rest. Flu test negative. 2:05 PM. Pt reevaluation. Pt is stable at this time. I have discussed my clinical impressio n and treatment plan with the pt. We have specifically discussed the signs and symptoms that would constitute the need for an immediate return to the ED, the importance of continued ou tpatient f/u and the importance of compliance with the d/c instructions. I have answered any questions that the pt has to the best of my ability. Based upon the pt s history, physica l exam, ED course, and diagnostic studies, I feel that there is no current emergent medical condition that warrants admission, transfer, or further ED treatment at this time. Records Reviewed Old ED records reviewed (Using the electronic record system of [facility], I francoise dialloy reviewed the records with regard to the past medical/surgical history, previous medic ations, and allergies). Laboratory Evaluation Results None I personally reviewed the lab results and they have been posted to the chart. Pertinent po sitive and negative findings have been addressed appropriately. Radiology and EKG Evaluation Imaging Results XR Chest PA and Lateral (Final result) Result time:06/22/13 1444 Final result by Rad Results In Dhiraj (06/22/13 14:44:06) Impression: 1. No acute disease. Narrative: NOHEMI ESPITIA XR CHEST 2 VIEW FRONTAL AND LATERAL 06/22/2013 12:33 PM HISTORY: Shortness of breath. TECHNIQUE: Frontal and lateral views of the chest. COMPARISON: None. FINDINGS: The lungs are clear and well inflated. The cardiac silhouette and pulmonary vasculature are normal. No pneumothorax or pleural effusion is found. Mild degenerative changes of the acro mioclavicular joints are noted. ED Interpretation Documented by Navneet Stewart DO (06/22/13 1325, [facility] Emergency Department, Emergency Medicine) No infiltrate or acute process noted ED Diagnoses Final diagnoses Cough Fever Bronchitis Dyspnea Disposition: ED Disposition Discharge Condition at discharge: Stable Follow-up Information Follow up With Details Comments Contact Info [facility] Emergency Department If symptoms worsen [address] [id number] [facility] Schedule an appointment as soon as possible for a vis it [address] [id number] [place] Discharge Medications: New Prescriptions ACETAMINOPHEN-CODEINE (TYLENOL #3) 300-30 MG PER TABLET Take 1-2 tablets by mouth every 6 (six) hours as needed for Pain. Do not take Tylenol with this medication. It has Tylenol in it. ALBUTEROL (PROVENTIL) (2.5 MG/3ML) 0.083% NEBULIZER SOLUTION Take 6 mLs by nebulization every 6 (six) hours as needed for Wheezing. FLUCONAZOLE (DIFLUCAN) 150 MG TABLET Take 1 tablet by mouth once. IPRATROPIUM-ALBUTEROL (COMBIVENT) 20-100 MCG/ACT INHALER Inhale 2 puffs into the lungs every 6 (six) hours as needed for Wheezing. LEVOFLOXACIN (LEVAQUIN) 500 MG TABLET Take 1 tablet by mouth daily. LORATADINE (CLARITIN) 10 MG TABLET Take 1 tablet by mouth daily. PREDNISONE (DELTASONE) 10 MG TABLET Take 1 tablet by mouth daily with breakfast. Take 2 tablets three times a day for three days, then 2 tablets twice a day for three days, then o ne tablet twice a day for three days, then one tablet once a day for three days. Total cours e 12 days. SPACER/AERO-HOLDING CHAMBERS (AEROCHAMBER MV) INHALER For use with inhalers Additional Documentation Procedures Attending Note: Documentation assistance provided by Camilla Bhatt (Scribe). Information recorded by the scribe has been reviewed and validated by me. Jadyn robertson with its contents. DO Navneet Williamson DO 06/22/13 155 documented in th is encounter Plan of Treatment +--------+---------+ + + + | Date | Type | Specialty | Care Team | Description | +--------+---------+ + + + | 12/11/ | Office | Neurosurgery | Veto Hernandes, | | | 2019 | Visit | | KNITTER MACHINE [address] | | | | | | [address] [facility] [address] | | | | | | [place] [address] | | | | | | [phone] | | | | | | | [...] this encounter Results Influenza A and B Ag, [place] (06/22/2013 1:00 PM PST) + + [...] ICA | | | Testing performed at [facility];[address] [facility];[place] [address] | | | REPORT STATUS 06/22/2013 FINAL [...] | Procedure Note | + + | DhirajNikita Conversion - 01/18/2019 1:22 AM PDT NOHEMI [...] COCCOBACILLI | | | Testing performed at [facility], [address], | | | [place] [address] CULTURE | | | SMEAR CONTAINS GREATER THAN 10 SEC/LPF SUGGESTIVE OF POOR QUALITY | | | SPECIMEN. SPECIMEN WILL NOT BE CULTURED OR WILL BE CULTURED BY | | | SPECIAL REQUEST ONLY. PLEASE RECOLLECT IF CLINICALLY INDICATED. | | | SPECIMEN WILL BE HELD 48 HOURS. | | | Testing performed at [facility], [address] [facility], | | | [place] [address] REPORT STATUS | | | 06/23/2013 FINAL [...] abnormality | + + documented in this encounter
--- OUTSIDE RECORDS SUMMARY | ~2019-12-01 | XMS | Encounter Summary ---
Demographics + + + | Address | [address] | | | [place] [address] | + + + | Home Phone [...] + | Author | [facility] | | | and [place] | + + + | Organization | [facility] | | | and [...] Team Providers + +------+ + | Care Cellars Supervisor Name | Role | Phone | [...] Provider Unknown | | | | | [place], [place] | | | | | | [address] | (Fax) | | | | | [phone] | | | +--------+ + + + [...] | | | | | [place] [address] | | | | | | [phone] | | | | | | | [...]
--- OUTSIDE RECORDS SUMMARY | ~2019-12-01 | XMS | Encounter Summary ---
Demographics + + + | Address | [address] | | | [place] [address] | + + + | Home Phone [...] Author | [facility] | | | and [place] | + + + | Organization | [facility] | [...] Team Providers + +------+ + | Care Resp Ther Name | Role | Phone | + +------+ + | Naren Nina PA-C | PCP | | + +------+ + Encounter Details +--------+ + + + + | Date | Type | Department | Care Team | Description | +--------+ + + + + | 03// | Orders Only | [facility] | Mariia Owusu, | | | 2013 | | [facility] | INSULATION PROFESSIONAL [address] | | | | | CARE [address] | [place] [address] | | | | | [place], [place] | [phone] | | | | | [address] | | | | | | [phone] | | | +--------+ + + + [...] Service: (none) Author Type: Registered Nurse Filed: 08/13/13 1738 Encounter Date: 08/13/2013 Status: Signed Theatrical Trouper: Olesya Martinez Message copied by OLESYA MARTINEZ on SunAug 13, 2013 5:38 PM ------ Message from: SAMREEN SKINNER Created: SunAug 13, 2013 3:55 PM Contact: 4-Tami ray-DONALDO Miranda from [facility] need for blood work BUN and Creatine for upcoming MRI, patient wi ll need to have this done at tomorrow appointment since the MRI is scheduled for 08/18. If you have any questions, Please call patient back at [phone]. Thank you, Samreen Skinner Accounts Receivable Administrator docume nted in this encounter Plan of Treatment +--------+---------+ + + + | Date | Type | Specialty | Care Team | Description | +--------+---------+ + + + | 12/11/ | Office | Neurosurgery | Veto Hernandes, | | | 2020 | Visit | | INSULATION PROFESSIONAL [address] | | | | | | [place] [address] | | | | | | [phone] | | | | | | | [...] + + documented in this encounter Results ISELA (08/15/2013 4:23 PM PDT) + + + + + + | Component | Value | Ref Range | Performed | Pathologist | | | | | At | Signature | + + + + + + | BUN | 10Comment: Testing | 8 - 25 mg/dL | EXTERNAL | | | | performed at [facility];[address] | LAB | | | [address];[place] [address] | | | | + + + [...] EXTERNAL | | | | performed at [facility];[address] | mg/dL | LAB | | | | [address] | | | | | | [address];[place] [address] | | | | + + + [...]
--- OUTSIDE RECORDS SUMMARY | ~2019-12-01 | XMS | Encounter Summary ---
Demographics + + + | Address | [address] | | | [place] [address] | + + + | Home Phone [...] | Author | [facility] | | | and [place] | + + + | Organization | [facility] | | | and [place] [...] Team Providers + +------+ + | Care Party Coordinator Name | Role | Phone | + +------+ + | Naren Nnia PA-C | PCP | | + +------+ [...] Provider Unknown | | | | | [place], [place] | | | | | | [address] | (Fax) | | | | | [phone] | | | +--------+ + + + [...] | | | | | [place] [address] | | | | | | [phone] | | | | | | | [...] + + + + | FIBROSURE | [id number]: CIRRHOSIS | | EXTERNAL | | | [...] + + + + | Necroinflam | [id number]: SEVERE | | EXTERNAL | | | [...] + + + + | HCV | [id number] (A) | 0 IU/ml | EXTERNAL | [...]
--- OUTSIDE RECORDS SUMMARY | ~2019-12-01 | XMS | Encounter Summary ---
Demographics + + + | Address | [address] | | | [place] [address] | + + + | Home Phone | | + + + | Preferred Language | Unknown | + + + | Marital Status | Single | + + + | Sikh Affiliation | 1009 | + + + | Race | Unknown | + + + | Ethnic Group | Unknown | + + + Author + + + | Author | [facility] | | | and [place] | + + + | Organization | [facility] | | | and [...] Team Providers + +------+ + | Care Salvage Mend Worker Name | Role | Phone | + +------+ + | Hayden Acevedo MD | PCP | | + +------+ + Encounter Details +--------+ + + + + | Date | Type | Department | Care Team | Description | +--------+ + + + + | 12/24/ | Hospital | [facility] | Misha Todd, | Mixed incontinence | | 2013 - | Encounter | [facility] [address] | [address] | urge and stress | | | | [address] | [address] [place], | (male)(female); | | 12/26/ | | [place], [place] | [place] [address] | Hypothyroid; HTN | | 2013 | | [address] | [phone] | (hypertension); | | | | [phone] | | Anxiety; | | | | [...] Date of Service: 12/26/13 1043 Status: Signed Cloth Piecer: Misha Todd MD (Physician) [facility] Service: Obstetrics & Gynecology Discharge Summary Date [...] REPAIR); Surgeon: Misha Todd MD; Locatio n: [facility]; Service: ELEMENTARY ASSISTANT TEACHER; Laterality: N/A; Anterior portion was not completed Bladder suspension 12/24/2013 Procedure: BLADDER SUSPENSION - TVT; Surgeon: Misha Todd MD; Location: [facility]; Service: ELEMENTARY ASSISTANT TEACHER; Laterality: N/A; TVT exact Cystoplasty 12/24/2013 Procedure: CYSTOSCOPY - HYDRODISTENTION OF BLADDER; Surgeon: Misha Todd MD; Locati on: [facility]; Service: ELEMENTARY ASSISTANT TEACHER; Laterality: N/A; 70 degree scope. Indigo Emilia dye a vailable to Anesthesiologist Enterocele repair 12/24/2013 Procedure: ENTEROCELE RPR; Surgeon: Misha Todd MD; Location: [facility]; Servic e: ELEMENTARY ASSISTANT TEACHER; Laterality: N/A; No Known Allergies Prescriptions prior [...] pr ocedure. 2 enema 0 ergocalciferol (DRISDOL) 06335 UNITS capsule Take 1 capsule by mouth [...] on file. Follow up: Misha Todd MD [address] [facility] [address] In 1 month Medication List As of [...] diagnoses: Loss Of Bladder Control, Painful Sexual [place], Fallen Bladder, Saggin g Of Female Genital [...] are the prescriptions that you need to molded goods spot picker. You may get these medications from [...] Progress Note by Sarah Birch RN at 12/26/13 1125 Author: Sarah Birch RN Service: (none) Author Type: Registered Nurse Filed: 12/26/13 1125 Date of Service: 12/26/131124 Status: Signed Cloth Piecer: Sarah Birch RN (Registered Nurse) Discharge instructions given and explained to patient. Medications discussed with no austini ons. Instructed to contact MD for any signs or symptoms of infection or any problems associa kayy with hospitalization. SARAH BIRCH RN 12/26/2013 11:25 AM onver david Transaction, Provider Unknown - 12/25/2013 11:10 AM PDT Therapy Progress Note by JULIO Ocampo at 12/25/13 1110 Author: JULIO Ocampo Service: (none) Author Type: Massage Therapist Filed: 12/25/13 1110 Date of Service: 12/25/13 111 Status: Signed Cloth Piecer: JULIO Ocampo (Massage Therapist) 12/25/13 1100 MT Last Visit MT Received On 12/25/13 MT Therapy Visit Refused onver david Transaction, Provider Unknown - 12/25/2013 8:09 AM PDT Case Management by OG Mae at 12/25/13 0809 Author: OG Mae Service: (none) Author Type: Golf Course Designer Filed: 12/25/13 0810 Date of Service: 12/25/13 0809 Status: Signed Cloth Piecer: OG Mae (Golf Course Designer) CM met with pt for discharge planning. [...] Filed: 12/24/13 1252 Date of Service: 12/24/13 1252 Status: Signed Cloth Piecer: Misha Todd MD (Physician) [facility] Service: Obstetrics & Gynecology Pre-Operative History & [...] Service: (none) Author Type: Physician Filed: 12/11/13 1604 Date of Service: 12/11/13 7141 Status: Signed Cloth Piecer: Misha Todd MD (Physician) [facility] Service: Obstetrics & Gynecology Pre-Operative History & [...] Offered to cancel or postpone surgery, pat delfino prefers to proceed. Past Medical History Diagnosis Date Anxiety Hypertension Thyroid disease Depression Hepatitis C Past Surgical History Procedure Date Hysterectomy Cholecystectomy Appendectomy Bladder surgery [facility] [place] [place] 07/14/2013 [facility] [place] [place] 08/06/2013 No Known Allergies Current Outpatient Prescriptions [...] for Cough. 30 capsule 2 ergocalciferol (DRISDOL) 75780 UNITS capsule Take 1 capsule by mouth [...] (View-Only) by Misha Todd MD at 12/11/13 0226 Author: Misha Todd MD Service: (none) Author Type: Physician Filed: 12/11/13 2803 Date of Service: 12/11/132 Status: Signed Cloth Piecer: Misha Todd MD (Physician) [facility] Service: Obstetrics & Gynecology Pre-Operative History & [...] Procedure Date Hysterectomy Cholecystectomy Appendectomy Bladder surgery [facility] [place] 07/14/2013 [facility] [place] [place] 08/06/2013 No Known Allergies Current Outpatient Prescriptions [...] for Cough. 30 capsule 2 ergocalciferol (DRISDOL) 85857 UNITS capsule Take 1 capsule by mouth [...] 12/26/13728 Date of Service: 12/26/13728 Status: Signed Cloth Piecer: Sarah Birch RN (Registered Nurse) Problem: Safety [...] BIRCH RN 12/26/2013 7:28 AM p Not e - Misha Todd MD - 12/24/2013 3:01 PM PDT Op Note by Misha Todd MD at 12/24/13 1501 Author: Misha Todd MD Service: Obstetrics/Gynecology Author Type: Physician Filed: 12/24/13 1514 Date of Service: 12/24/131500 Status: Signed Cloth Piecer: Misha Todd MD (Physician) [facility] Service: Obstetrics & Gynecology Operative Note Name: [...] the repair. CPT CODE for A&P REPAIR: 33093 TVT: Allis clamps were used to demarcate [...] suprapubic incision sites. CPT CODE for TVT: 10133 CYSTOURETHROSCOPY WITH HYDRODISTENSION: The Macias catheter was [...] CPT CODE for CYSTOURETHROSCOPY WITH BLADDER DISTENSION: 14230 Disposition: Pt moved to PACU/recovery room. Condition: Stable and satisfactory condition. Sponge and Needle Count: Correct MISHA TODD MD has created this entry using [employer] Voice Recognition software a [employer]. The entry has been reviewed and there may still exist sound alike word erro rs. MISHA TODD MD 12/24/2013 3:01 PM documented in this e ncounter Plan of Treatment +--------+---------+ + + + | Date | Type | Specialty | Care Team | Description | +--------+---------+ + + + | 12/11/ | Office | Neurosurgery | Veto Hernandes, | | | 2019 | Visit | | FUTURES TRADER [address] | | | | | | [address] | | | | | | [facility] [place] [address] | | | | | | [phone] | | | | | | | [...] | | | | | [place] [address] | | | | + + + + + + | Red Blood | 3.87Comment: Testing | 3.70 - 5.10 | EXTERNAL | | | Cells | performed at [facility], [address] | M/uL | LAB | | | Counted | [address], | | | | | | [place] [address] | | | | + + + + + + | Hemoglobin | 11.8Comment: Testing | 11.3 - 15.5 | EXTERNAL | | | | performed at [facility], [address] | g/dL | LAB | | | | [address], | | | | | | [place] [address] | | | | + + + + + + | Hematocrit, | 35.8Comment: Testing | 34.0 - 46.0 % | EXTERNAL | | | POC | performed at [facility], [address] | | LAB | | | | [address], | | | | | | [place] [address] | | | | + + + + + + | MCV | 92.5Comment: Testing | 80.0 - 100.0 fl | EXTERNAL | | | | performed at [facility], [address] | | LAB | | | | [address], | | | | | | [place] [address] | | | | + + + + + + | MCH | 30.5Comment: Testing | 27.0 - 34.0 pg | EXTERNAL | | | | performed at [facility], [address] | | LAB | | | | [address], | | | | | | [place] [address] | | | | + + + + + + | MCHC | 32.9Comment: Testing | 32.0 - 35.5 | EXTERNAL | | | | performed at [facility], [address] | g/dL | LAB | | | | [address], | | | | | | [place] [address] | | | | + + + + + + | RDW-CV | 49.9Comment: Testing | 37 - 53 fl | EXTERNAL | | | | performed at [facility], [address] | | LAB | | | | [address], | | | | | | [place] [address] | | | | + + + + + + | Platelet | 208Comment: Testing | 150 - 400 K/uL | EXTERNAL | | | Count | performed at [facility], [address] | | LAB | | | Plasma | [address], | | | | | | [place] [address] | | | | + + + + + + | MPV | 8.4Comment: Testing | fl | EXTERNAL | | | | performed at [facility], [address] | | LAB | | | | [address], | | | | | | [place] [address] | | | | + + + + + + | Differentia | AUTOMATEDComment: SLIDE | | EXTERNAL | | | l Type | SCANNED, AGREES WITH | | LAB | | | | AUTOMATED | | | | | | RESULTS.Testing | | | | | | performed at [facility], [address] | | | | | | [address], | | | | | | [place] [address] | | | | + + + + + + | % Segmented | 86.6Comment: Testing | % | EXTERNAL | | | | performed at [facility], [address] | | LAB | | | Neutrophils | [address], | | | | | | [place] [address] | | | | + + + + + + | % | 9.0Comment: Testing | % | EXTERNAL | | | Lymphocytes | performed at [facility], [address] | | LAB | | | | [address], | | | | | | [place] [address] | | | | + + + + + + | % Monocytes | 4.3Comment: Testing | % | EXTERNAL | | | | performed at [facility], [address] | | LAB | | | | [address], | | | | | | [place] [address] | | | | + + + + + + | % | 0.0Comment: Testing | % | EXTERNAL | | | Eosinophils | performed at [facility], [address] | | LAB | | | | [address], | | | | | | [place] [address] | | | | + + + + + + | % Basophils | 0.1Comment: Testing | % | EXTERNAL | | | | performed at [facility], [address] | | LAB | | | | [address], | | | | | | [place] [address] | | | | + + + + + + | Absolute | 9.0 (H)Comment: Testing | 1.9 - 7.4 K/uL | EXTERNAL | | | Segmented | performed at [facility], [address] | | LAB | | | Neutrophils | [address], | | | | | | [place] [address] | | | | + + + + + + | Absolute | 0.9 (L)Comment: Testing | 1.0 - 3.9 K/uL | EXTERNAL | | | Lymphocytes | performed at [facility], [address] | | LAB | | | | [address], | | | | | | [place] [address] | | | | + + + + + + | Absolute | 0.4Comment: Testing | 0 - 0.8 K/uL | EXTERNAL | | | Monocytes | performed at [facility], [address] | | LAB | | | | [address], | | | | | | [place] [address] | | | | + + + + + + | Absolute | 0.0Comment: Testing | 0 - 0.5 K/uL | EXTERNAL | | | Eosinophils | performed at [facility], [address] | | LAB | | | | [address], | | | | | | [place] [address] | | | | + + + + + + | Absolute | 0.0Comment: Testing | 0 - 0.1 K/uL | EXTERNAL | | | Basophils | performed at [facility], [address] | | LAB | | | | [address], | | | | | | [place] [address] | | | | + + + [...] | | | | | [place] [address] | | | | + + + + + + | K | 4.5Comment: Testing | 3.5 - 4.9 | EXTERNAL | | | | performed at [facility], [address] | mmol/L | LAB | | | | [address], | | | | | | [place] [address] | | | | + + + + + + | Cl | 107Comment: Testing | 99 - 109 mmol/L | EXTERNAL | | | | performed at [facility], [address] | | LAB | | | | [address], | | | | | | [place] [address] | | | | + + + + + + | CO2 | 26Comment: Testing | 23 - 32 mmol/L | EXTERNAL | | | | performed at [facility], [address] | | LAB | | | | [address], | | | | | | [place] [address] | | | | + + + + + + | Anion Gap | 8Comment: Testing | 5 - 20 mmol/L | EXTERNAL | | | | performed at [facility], [address] | | LAB | | | | [address], | | | | | | [place] [address] | | | | + + + + + + | Glucose, | 137 (H)Comment: Testing | 65 - 99 mg/dL | EXTERNAL | | | Fasting | performed at [facility], [address] | | LAB | | | | [address], | | | | | | [place] [address] | | | | + + + + + + | BUN | 16Comment: Testing | 8 - 25 mg/dL | EXTERNAL | | | | performed at [facility], [address] | | LAB | | | | [address], | | | | | | [place] [address] | | | | + + + + + + | Creatinine | 0.75Comment: Testing | 0.50 - 1.00 | EXTERNAL | | | | performed at [facility], [address] | mg/dL | LAB | | | | [address], | | | | | | [place] [address] | | | | + + + + + + | BUN/Creatin | 21Comment: Testing | | EXTERNAL | | | ine Ratio | performed at [facility], [address] | | LAB | | | | [address], | | | | | | [place] [address] | | | | + + + + + + | Calcium | 9.1Comment: Testing | 8.5 - 10.2 | EXTERNAL | | | | performed at [facility], [address] | mg/dL | LAB | | | | [address], | | | | | | [place] [address] | | | | + + + [...] W | | | | | | [address], | | | | | | [place] [address] | | | | + + + [...] LAB | | | | Blvd;[place] [address] | | | | + + + + + + | Antibody | NEGATIVE | | EXTERNAL | | | Screen | | | LAB | | + + + + + + | Antibody | Testing performed at | | EXTERNAL | | | Screen | [facility] | | LAB | | | | Blvd;[place] [address] | | | | + + + + + + | BB BAND | [id number] | | EXTERNAL | | | | | | LAB | | + + + + + + | BB BAND | Testing performed at | | EXTERNAL | | | | [facility];[address] | | LAB | | | | [address]vd;[place] [address] | | | | + + + [...]
--- OUTSIDE RECORDS SUMMARY | ~2019-12-01 | XMS | Encounter Summary ---
Demographics + + + | Address | [address] | | | [place] [address] | + + + | Home Phone | | + + + | Preferred Language | Unknown | + + + | Marital Status | Single | + + + | Restoration Affiliation | 1009 | + + + | Race | Unknown | + + + | Ethnic Group | Unknown | + + + Author + + + | Author | [facility] | | | and [place] | + + + | Organization | [facility] | | | [...] Team Providers + +------+ + | Care Dietitian Teaching Name | Role | Phone | + [...] | | | | | radiculopath | [address] | [address] | | | | | y Facet | [place], | [place], [place] | | | | | arthritis of | [place] [address] | [address] | | | | | cervical | Phone: | Phone: | | | | | region | [phone] | [phone] | | | | | Chronic | Fax: | Fax: | | | | | bilateral | [phone] | [phone] | | | | | low back [...] | Cervical | [address] | | | | n | radiculopath | [address] | [place], | | | | | y Left arm | [place], | [place] [address] | | | | | numbness | [place] [address] | Phone: | | | | | Left arm | Phone: | [phone] | | | | | weakness | [phone] | Fax: | | | | | Procedures | Fax: | [phone] | | | | | DOS 01/04/16 | [phone] | | +--------+ + + + + [...] | | | | | radiculopath | [address] | [address] | | | | | y Left arm | [place], | AVE | | | | | numbness | [place] [address] | [place], [place] | | | | | Left arm | Phone: | [address] | | | | | weakness | [phone] | Phone: | | | | | Facet | Fax: | [phone] | | | | | arthritis of | [phone] | Fax: | | | | | cervical | | [phone] | | | | | region | [...] | Rehabilitatio | neck pain | PA-C [address] | [address] | | | | n | Low back | [facility] | [place], | | | | | pain Mid | WAY | [place] [address] | | | | | back pain | [place], | Phone: | | | | | | [place] [address] | [phone] | | | | | | Phone: | Fax: | | | | | | [phone] | [phone] | | | | | | Fax: | | | | | | | [phone] | | +--------+--------+ + + + + Encounter Details +--------+---------+ + + + | Date | Type | Department | Care Team | Description | +--------+---------+ + + + | 12/14/ | Office | [facility] | Henri Stewart, | Cervicalgia (Primary | | 2016 | Visit | PHYSIATRY [address] | MD [address] | Dx); Cervical | | | | [address] | [place] | radiculopathy; Left | | | | [place] | [address] | arm numbness; Left | | | | [address] | | arm weakness; Facet | | | | [phone] | | arthritis of | | | | | | cervical region | | | | | | ([facility]); Chronic | | | | | [...] physical therapy within one week, please contact [facility]. Once you have completed physical therapy please continue the home exercise progr am as outline by physical therapy, indefinitely. Please attend the injection appointment with Ramon Mijares MD. If his office has not co ntacted you within one week, to schedule the injection, please contact my clinic. Your inje ction will be performed at [facility]. Please take note of weather your pain is significantly reduced in the hours immediately following the injecti on. Return to the clinic for nerve conduction study of the left upper extremity. A pain clinic consult has been requested at [facility]. documented in this encounter Progress Notes Henri Stewart MD - 12/15/2015 4:38 PM PDTThis office note has been dictated. Report Confirmation# [id number] signed by Henri Stewart MD at 12/15/2015 5:22 PM PDTdocumented in this encounter Consult Notes Henri Stewart MD - 12/15/2015 5:22 PM PDT [facility] PHYSIATRY [address] [facility] [address] OFFICE CONSULTATION HENRI STEWART JR, MD Patient: NOHEMI ESPITIA Admitting: MR #: [id number] LOC: PT TYPE: Adm Date: 12/15/2015 : [...] She lost her daughter to a drunk cattle driver motor vehi doug accident approximately 1 [...] to send her to the pain clinic, [facility], f or pain management. She indicates that [facility] does not accept her insurance. She has never tried going to [facility]. We discussed today that Shereen cooley in clinic and [facility] are not likely to manage [...] clubbing, cyanosis or edema. NEUROLOGICAL: 4/5 hand well testing operator on the left, compared to 5/5 on [...] sh e has already been declined from [facility] because of her insurance coverage. A t this point, I am requesting a pain management consultation at the [facility]. More than an hour was [...] Transcribed on 12/16/2015 16:02:59 by carmela job# [id number] Confirmation #: [id number] cc: NAREN VIVAS PAC Tdocumented in this encounter Plan of Treatment +--------+---------+ + + + | Date | Type | Specialty | Care Team | Description | +--------+---------+ + + + | 12/11/ | Office | Neurosurgery | Veto Hernandes, | | | 2019 | Visit | | [address] | | | | | | [address] | | | | | | [place] [address] | | | | | | [phone] | | | | | | | [...] | | | | | | ([facility]) Chronic | | | | [...] | | | | | | ([facility]) Chronic | | | | [...]
--- OUTSIDE RECORDS SUMMARY | ~2019-12-01 | XMS | Encounter Summary ---
Demographics + + + | Address | [address] | | | [place] [address] | + + + | Home Phone | | + + + | Preferred Language | Unknown | + + + | Marital Status | Single | + + + | Presybeterian Affiliation | 1009 | + + + | Race | Unknown | + + + | Ethnic Group | Unknown | + + + Author + + + | Author | [facility] | | | and [place] | + + + | Organization | [facility] | | | and [place] [...] Team Providers + +------+ + | Care Meter Tester Name | Role | Phone | [...] Provider Unknown | | | | | [place], [place] | | | | | | [address] | (Fax) | | | | | [phone] | | | +--------+ + + + [...] | | 2019 | Visit | | FERN CUTTER [address] | | | [address] | | [address] | | | | | | [place] [address] | | | | | | [phone] | | | | | | | | +--------+---------+ + + + documented as of this encounter Procedures + +--------+ + + + | Procedure Name | Priori | Date/Time | Associated Diagnosis | Comments | | | ty | | | | + +--------+ + + + | EXTERNAL LAB: [facility] | Routin | 10/18/2015 | | Results [...] +--------+ + + + | EXTERNAL LAB: [facility] | Routin | 10/04/2015 | | Results [...] g/dL Ref Range: | | | 0.6-1.5 Frostproof/Lamda Free Light Chain .Frostproof FLC | | | Result: 3.55 mg/dL Ref | | | Range: 0.33-1.94 .Lambda FLC | | | Result: 2.28 mg/dL Ref Range: 0.57-2.63 | | | .Frostproof/Lambda FLC Ratio Result: 1.56 | | | [...]
--- OUTSIDE RECORDS SUMMARY | ~2019-12-01 | XMS | Encounter Summary ---
Demographics + + + | Address | [address] | | | [place] [address] | + + + | Home Phone [...] + + + | Author | [facility] | | | and [place] | + + + | Organization | [facility] | | | and [place] [...] Providers + +------+ + | Care Customer Data Technician Name | Role | Phone | [...] | Cervical | [address] | | | | n | radiculopath | [address] | [place], | | | | | y Left arm | [place], | [place] [address] | | | | | numbness | [place] [address] | Phone: | | | | | Left arm | Phone: | [phone] | | | | | weakness | [phone] | Fax: | | | | | Procedures | Fax: | [phone] | | | | | DOS 01/04/16 | [phone] | | +--------+ + + + + + Encounter Details +--------+ + + + + | Date | Type | Department | Care Team | Description | +--------+ + + + + | 01/31/ | Procedure | [facility] [place] | Henri Stewart, | Cervicalgia (Primary | | 2016 | visit | PHYSIATRY [address] | MD [address] | Dx); Cervical | | | | [address] | [place] | radiculopathy; | | | | [place] | [address] | Cervical spinal | | | | [address] | | stenosis | | | | [phone] | | | +--------+ + + + [...] might be different fro m the original. [facility] Physical Medicine & Rehabilitation [address] [place] [address], [address] [place] [address] Test Date: 02/01/2016 Patient Name: Bisi Becker : 1960 Physician: Henri Stewart MD (Jr.) MR #: [id number] Sex: Female Referring Physician: Naren Nina PA-C [...] she describes as lo ss of hand physician/allergy/immunology. She reports that she sometimes drops objects [...] She has 4/5 biceps, deltoid and hand physician/allergy/immunology strength on the left compared to 5/5 [...] people continue to have back pain d anthony having back surgery. Imaging from 2011 (prior to her back surgery) was reviewed. Im aging from after her back surgery is not available. She was advised to talk to her back osbaldo Dr. Anaid bianchi to discuss if any further work up [...] not hesitate to call. Henri Stewart MD (Jr.) Physical Medicine and Rehabilitation Cc: Naren Nina PA-C documented in this en counter Plan of Treatment +--------+---------+ + + + | Date | Type | Specialty | Care Team | Description | +--------+---------+ + + + | 12/11/ | Office | Neurosurgery | Veto Hernandes, | | | 2019 | Visit | | [facility] [address] | [address] | | | | | | [place] [address] | | | | | | [phone] | | | | | | | [...]
--- OUTSIDE RECORDS SUMMARY | ~2019-12-01 | XMS | Encounter Summary ---
Demographics + + + | Address | [address] | | | [place] [address] | + + + | Home Phone | | + + + | Preferred Language | Unknown | + + + | Marital Status | Single | + + + | Gnosticism Affiliation | 1009 | + + + | Race | Unknown | + + + | Ethnic Group | Unknown | + + + Author + + + | Author | [facility] | | | and [place] | + + + | Organization | [facility] | | | and [place] | + + + | Address | Unknown | + + + | Phone | Unavailable | + + + Support + + +---------+ + | Name | Relationship | Address | Phone | + + +---------+ + | Gene Soetlo | ECON | Unknown | | + + +---------+ + | Mark Lewis | ECON | Unknown | | + + +---------+ + Care Team Providers + +------+ + | Care Medical Transcription Editor Name | Role | Phone | + +------+ + | Naren Nian PA-C | PCP | | + +------+ + Encounter Details +--------+ + + + + | Date | Type | Department | Care Team | Description | +--------+ + + + + | 01/07/ | Orders Only | [facility] | Provider, | | | 2019 | | [facility] GENER[facility] OP | MD [address] | | | | | [address] | Tristin Vogt | | | | | [address] [place], [place] | [place] [address] | | | | | [address] | | | | | | [phone] | | | +--------+ + + + [...] B | | | | | | [place] [address] | | | | | | [phone] | | | | | | | | +--------+---------+ + + + documented as of this encounter Visit Diagnoses Not on filedocumented in this encounter"
--- OUTSIDE RECORDS SUMMARY | ~2019-12-01 | XMS | Encounter Summary ---
Demographics + + + | Address | [address] | | | [place] [address] | + + + | Home Phone [...] + | Author | [facility] | | | and [place] | + + + | Organization | [facility] | | | and [place] [...] Team Providers + +------+ + | Care Bleach Analyst Name | Role | Phone | [...] + + | 01/17/ | Telephone | [facility] | Henri Stewart, | Referral | | 2016 | | PHYSIATRY [address] | MD [address] | | | | | [address] | [place], [place] | | | | | [place], [place] | [address] | | | | | [address] | | | | | | [phone] | | | +--------+ + + + [...] AM PDTDr. Stewart referred this patient to [facility] in [place]. They denied th e referral because they state that they do not have the resources to help with this patient' s specific needs. Bisi is very frustrated by the fact that her referrals keep getting [facility], and would like to know if there is another facility, possibly in the [facility], that we could refer her to now. LANATe maryam Encounter - Anjali Artis - 01/18/2016 10:21 AM PDTPatient called and states t [facility] from [place] has denied her as a patient (for reasons unknown). She is wanting to know if Dr. Stewart could send a new referral to see someone in the [facility]? docudk river this encounter Plan of Treatment +--------+---------+ + + + | Date | Type | Specialty | Care Team | Description | +--------+---------+ + + + | 12/11/ | Office | Neurosurgery | Veto Hernandes, | | | 2019 | Visit | | SERVICE CENTER COORDINATOR [address] | | | | | [address] | | | | | | [place] [address] | | | | | | [phone] | | | | | | | | +--------+---------+ + + + documented as of this encounter Visit Diagnoses Not on filedocumented in this encounter"
--- OUTSIDE RECORDS SUMMARY | ~2019-12-01 | XMS | Encounter Summary ---
Demographics + + + | Address | [address] | | | [place] [address] | + + + | Home Phone [...] | Author | [facility] | | | and [place] | + + + | Organization | [facility] | | | and [place] [...] Team Providers + +------+ + | Care Ibm Mainframe Developer Name | Role | Phone | [...] [address] | | | | | [place], [place] | [address] | | | | | [address] | [place] [address] | | | | | [phone] | [phone] | | | | | | | [...] | | 2019 | Visit | | BUSINESS OPERATIONS MANAGER [address] | | | [address] | | [address] | | | | | | [place] [address] | | | | | | [phone] | | | | | | | [...] by | | | | | | [facility] liquid | | | | | [...]
--- OUTSIDE RECORDS SUMMARY | ~2019-12-01 | XMS | Encounter Summary ---
Demographics + + + | Address | [address] | | | [place] [address] | + + + | Home Phone | | + + + | Preferred Language | Unknown | + + + | Marital Status | Single | + + + | Mosque Affiliation | 1009 | + + + | Race | Unknown | + + + | Ethnic Group | Unknown | + + + Author + + + | Author | [facility] | | | and [place] | + + + | Organization | [facility] | [...] Team Providers + +------+ + | Care Anime Artist Name | Role | Phone | + +------+ + | Hayden Acevedo MD | PCP | | + +------+ + Encounter Details +--------+ + + + + | Date | Type | Department | Care Team | Description | +--------+ + + + + | 03/30/ | Emergency | [facility] | Henry Cedillo MD | COPD exacerbation | | 2013 | | MEDICAL CENTER | [address] | ([facility]) | | | | EMERGENCY CENTER | [place] [address] | | | | | [address] | [phone] | | | | | [place], [place] | | | | | | [address] | | | | | | [phone] | | | +--------+ + + + [...] Progress Notes Conversion Transaction, Provider Unknown - 03/30/2014 9:26 PM PDTFormatting of this note m ight be different from the original. Case Management by OG Bardales at 03/30/142125 Author: OG Bardales Service: (none) Author Type: Day Guard Filed: 03/30/142125 Date of Service: 03/30/142125 Status: Signed Hide Trimmer: OG Bardales (Day Guard) BALDO vasquez'd. Pt with 6 ED visits in past 12 months. Terri Alegre docume nted in this encounter ED Notes Conversion Transaction, Provider Unknown - 03/30/2014 9:54 PM PDTFormatting of this note m ight be different from the original. ED Notes by Celia Oro RN at 03/30/142153 Author: Celia Oro RN Service: (none) Author Type: Registered Nurse Filed: 03/30/142153 Date of Service: 03/30/142153 Status: Signed Hide Trimmer: Celia Oro RN (Registered Nurse) RT called for treatment. Celia Oro RN 03/30/142153 Henry Norman MD - 03/30/2014 9:08 PM PDTFormatting of this note might be different from the origin al. ED Provider Notes by Henry Cedillo MD at 03/30/142107 Author: Henry Cedillo MD Service: (none) Author Type: Physician Filed: 03/31/14 0052 Date of Service: 03/30/142107 Status: Signed Hide Trimmer: Henry Cedlilo MD (Physician) [facility] Department of Emergency Medicine History of Present Illness Patient Identification Bisi Becker is a 54 y.o. female. Patient information was obtained from patient. History/Exam limitations: none. Patient presented to the Emergency Department by: Car Chief Complaint Chief Complaint Patient presents with Shortness of Breath Pt reports COPD exacerbation. Pt also reports pain on inspiration. Pt presents to the ED c/o SOB onset 2 days ago and has progressively worsened. Pt describes her sx as "chest tightness" and wheezing but states these are her normal COPD sx. Pt also c/o having pain in her left mid back and is exacerbated with breathing or movement. Pt also admits to soreness in both legs, foot pain (known recent fx and hx of osteoarthritis per pt) , and a productive yellow cough that has been dry today. Pt denies heart problems with no ot her sx at the time. Care prior to arrival consisted of breathing treatments, and her inhaler s without much improvement. Pt reports her sx have previously required steroids and a "z-pac k" at her last visit to the ED. Past Medical History Diagnosis Date Anxiety Hypertension [...] REPAIR); Surgeon: Misha Dye MD; Locatio n: [facility] OR; Service: REGULATORY ASSOCIATE; Laterality: N/A; Anterior portion was not completed Bladder suspension 12/24/2013 Procedure: BLADDER SUSPENSION - TVT; Surgeon: Misha Dye MD; Location: [facility]; Service: REGULATORY ASSOCIATE; Laterality: N/A; TVT exact Cystoplasty 12/24/2013 Procedure: CYSTOSCOPY - HYDRODISTENTION OF BLADDER; Surgeon: Misha Dye MD; Locati on: [facility]; Service: REGULATORY ASSOCIATE; Laterality: N/A; 70 degree scope. Indigo Emilia dye a vailable to Anesthesiologist Enterocele repair 12/24/2013 Procedure: ENTEROCELE RPR; Surgeon: Misha Dye MD; Location: [facility]; Servic e: REGULATORY ASSOCIATE; Laterality: N/A; Foraminotomy Left 01/30/2014 Procedure: FORAMINOTOMY; Surgeon: Juan Alberto Worrell MD; Location: [facility]; Service: Neurosurgery; Laterality: Left; L 5 Prior to Admission medications Medication Sig Start Date End Date Taking? Authorizing Provider albuterol (PROVENTIL) (2.5 MG/3ML) 0.083% nebulizer solution Take 6 mLs by nebulization leno ry 6 (six) hours as needed for Wheezing. 06/22/13 06/22/14 Yes Navneet Stewart, buPROPion (WELLBUTRIN XL) 150 MG 24 hr tablet Take 150 mg by mouth 2 (two) times daily. Not sure of dose Yes Historical Provider FLUoxetine (PROZAC) 40 MG capsule Take 1 capsule by mouth daily. 06/25/13 Yes ANURAG Osullivan gabapentin (NEURONTIN) 100 MG capsule take 1 capsule by mouth twice a day 03/10/14 Yes Tristin Perea MD gabapentin (NEURONTIN) 300 MG capsule take 2 capsules by mouth every evening 03/10/14 Yes Lida Perea MD ipratropium-albuterol (COMBIVENT RESPIMAT) 20-100 MCG/ACT inhaler Inhale 2 puffs into the l ungs every 6 (six) hours as needed for Wheezing. 12/22/13 Yes ANURAG Winters levothyroxine (SYNTHROID, LEVOTHROID) 25 MCG tablet Take 1 tablet by mouth every morning be fore breakfast. 06/25/13 06/25/14 Yes ANURAG Winters lisinopril (PRINIVIL,ZESTRIL) 10 MG tablet Take 1 tablet by mouth daily. 06/25/13 Yes ANURAG Pagan loratadine (CLARITIN) 10 MG tablet Take 1 tablet by mouth daily. 08/22/13 Yes ANURAG Osullivan LORazepam (ATIVAN) 1 MG tablet Take 1 tablet by mouth every 6 (six) hours as needed for Anx iety. 12/12/13 Yes ANURAG Winters meloxicam (MOBIC) 7.5 MG tablet take 1 tablet by mouth once daily 03/20/14 Yes Maximiliano frost DPM metaxalone (SKELAXIN) 800 MG tablet Take 1 tablet by mouth 3 (three) times daily as needed for Pain. 03/25/14 03/25/15 Yes ANURAG Rae methylPREDNISolone (MEDROL DOSEPACK) 4 MG tablet follow package directions 03/25/14 4 Yes ANURAG Rae OLANZapine (ZYPREXA) 10 MG tablet Take 1 tablet by mouth nightly. 06/27/13 Yes ANURAG Stevens nd omeprazole (PRILOSEC) 20 MG capsule Take 20 mg by mouth every morning before breakfast. Y es Historical Provider ondansetron (ZOFRAN-ODT) 8 MG disintegrating tablet Take 1 tablet by mouth every 8 (eight) hours as needed for Nausea. 03/25/14 04/01/14 Yes ANURAG Rae oxyCODONE-acetaminophen (PERCOCET) 10-325 MG per tablet Take 1 tablet by mouth daily as nee ded for Pain. 03/23/14 Yes Rosemary Perea MD promethazine (PHENERGAN) 25 MG tablet Take 1 tablet by mouth every 6 (six) hours as needed for Nausea. 03/25/14 Yes ANURAG Rae traMADol (ULTRAM) 50 MG tablet Take 1 tablet by mouth every 6 (six) hours as needed for Delia n. 03/25/14 04/04/14 Yes ANURAG Rae benzonatate (TESSALON) 100 MG capsule Take 1 capsule by mouth 3 (three) times daily as need ed for Cough. 10/31/13 ANURAG Winters ergocalciferol (DRISDOL) 71155 UNITS capsule Take 1 capsule by mouth once a week. 08/29/13 ANURAG Winters ribavirin (COPEGUS) 200 MG tablet Take 3 tablets by mouth 2 (two) times daily. 02/25/1403/05 Delilah Santos MD solifenacin (VESICARE) 10 MG tablet Take 1 tablet by mouth daily. 08/07/13 08/07/14 Misha naidu MD Spacer/Aero-Holding Chambers (AEROCHAMBER MV) inhaler For use with inhalers 06/22/13 06/22/14 Navneet Stewart DO docusate sodium (COLACE) 100 MG capsule Take 1 capsule by mouth daily. 02/12/14 03/30/14 Denton Dye MD estradiol (ESTRACE VAGINAL) 0.1 MG/GM vaginal cream Place one gram vaginally qhs x 2 weeks, then begin using one gram vaginally three times weekly at night. 07/02/13 03/30/14 Misha Dye MD hydrALAZINE (APRESOLINE) 25 MG tablet Take 1-2 tablets PO every 8 hours as needed for anxie ty 09/18/13 03/30/14 ANURAG Winters HYDROcodone-acetaminophen (NORCO) 5-325 MG per tablet 03/10/14 03/30/14 Historical Provide r hydrOXYzine (ATARAX) 25 MG tablet Take 50 mg by mouth 3 (three) times daily as needed. Kathie cations: Anxiety Neurosis 03/30/14 Historical Provider Allergies Allergen Reactions Morphine Other (See Comments) Used TIMBER DEADENER and it lowered her BP And medication [...] marijauna (in Dr darby in September 2013) Sexually Active: Not Currently Control/ Protection: Surgical-Self Other Topics Concern Not on file Social History Narrative Family History Problem Relation Age of Onset Breast cancer Sister Skin cancer Sister Ovarian cancer Sister Heart disease Mother Diabetes Father Diabetes type II Father Review of Systems Constitutional: No fever ENT: No blindness, no rhinitis, no sore throat Cardiovascular: Positive for chest tightness that is the same as her normal COPD sx Respiratory: Positive for shortness of breath, dry cough, recent productive yellow cough. Gastrointestinal: No abdominal pain, N/V/D, black or bloody stools Genitourinary: No dysuria, hematuria Musculoskeletal: Positive for foot and leg pain. Skin: No laceration or rash Neuro and psych: No head injury, seizure, headache Endocrine/Heme/Lymph: No easy bruising or bleeding. Physical Exam BP 132/64 | Pulse 86 | Temp(Src) 96.9 F (36.1 C) (Temporal) | Resp 19 | Ht 1.702 m (5' 7") | Wt 105.8 kg (233 lb 4 oz) | BMI 36.52 kg/m2 | SpO2 95% Vital Sign interpretation: WNL Pulse Oximetry interpretation: Normal General: Alert, in no apparent distress Eyes: Non-icteric ENT: Normal external exam Neck: Supple Cardiovascular: Warm and well perfused Respiratory: Pt presents with diffuse end expiratory wheeze but has no apparent respiratory distress. Abdomen: Non distended Extremities: DAWSON, There is no lower extremity edema. Back: Normal ROM Skin: Color normal Warm and dry No rash Neuro: Alert, no AMS No gross motor/sensory deficits Medical Decision Making and Emergency Department Course ED Department Course Pt presents to the ED with complaints of SOB that she describes as her normal exacerbation of COPD. Consider : exacerbation of COPD, asthma, pneumonia, pulmonary edema, ACS, PE vs oth er. Will order breathing treatment, CXR, steroids, and reassess. 9:34 PM Pt recheck. Pt has her call light on when I responded she was not in her room. 9:36 PM CXR reviewed. She does have a couple patchy infiltrates vs overlapping structures i n left upper lung mon. Pt is waiting for her breathing tx. 10:20 PM Pt recheck. Pt is still in process of her breathing tx. 10:54 PM Pt recheck. Pt is feeling much improved, and is no longer wheezing. She is stable and would like to be d/c home. Her sats have been stable. Symptoms are currently resolved. Discussed plan for discharge with patient. Patient understands and agrees to plan. Discusse d signs and symptoms that would necessitate a return to the ED. All patient questions and co ncerns addressed at this time. Patient is ready for discharge. Records Reviewed Old medical records. Nursing notes. Laboratory Evaluation Results None I personally reviewed the lab results and they have been posted to the chart. Pertinent po sitive and negative findings have been addressed appropriately. Radiology and EKG Evaluation Imaging Results XR chest PA and lateral (Final result) Result time: 03/30/14 22:06:23 Final result by Rad Results In Dhiraj (03/30/14 22:06:23) Impression: 1. Patchy airspace infiltrates left upper lobe, with mild central bronchial wall thickeni ng and interstitial prominence. I would favor an atypical pneumonitis. Narrative: HISTORY: Shortness of breath. COMPARISON: 12/11/13. TECHNIQUE: PA and lateral films of the chest. FINDINGS: Focal airspace infiltrate in the central left upper lobe and medial left upper lobe interst itial prominence centrally in both lung mon. I would favor an atypical pneumonitis. No ef fusions. Heart size is normal. ED Diagnosis Final diagnosis COPD exacerbation Disposition: ED Disposition Discharge Condition at discharge: Stable Follow-up Information Follow up With Details Comments Contact Info [facility] Schedule an appointment as soon as possible for a vis it [address] [facility] [address] [facility] Emergency Department If symptoms worsen [address] [facility] [address] Discharge Medications: Discharge Medication List as of 03/30/2014 10:57 PM START taking these medications Details levofloxacin (LEVAQUIN) 500 MG tablet Take 1 tablet by mouth daily., Starting 03/30/2014, U ntil 04/04/14, Print predniSONE (DELTASONE) 20 MG tablet Take 3 tablets by mouth daily., Starting 03/30/2014, Un til 04/03/14, Print Procedures Additional Documentation Procedures Attending Note: Documentation assistance provided by Jeanne Amaya (Scribe). Information recorded by the scribe has been reviewed and validated by me. I ag ree with its contents. MD Henry Barnes MD 03/31/14 0052 onversio n Transaction, Provider Unknown - 03/30/2014 8:56 PM PDTFormatting of this note might be di fferent from the original. ED Notes by Samara Canas RN at 03/30/142055 Author: Samara Canas RN Service: (none) Author Type: Registered Nurse Filed: 03/30/142055 Date of Service: 03/30/142055 Status: Signed Hide Trimmer: Samara Canas RN (Registered Nurse) Pt c/o SOB r/t COPD exacerbation for 2 days. Pt states she has had a bad cough and has been coughing up yellow phlegm. Samara Canas RN 03/30/142055 LANAdoblaine kennedy in this encounter Plan of Treatment +--------+---------+ + + + | Date | Type | Specialty | Care Team | Description | +--------+---------+ + + + | 12/11/ | Office | Neurosurgery | Veto Hernandes, | | | 2019 | Visit | | ENGINEERING TECHNICAL SPECIALIST [address] | | | | | | [place] [address] | | | | | | [phone] | | | | | | | | +--------+---------+ + + + documented as of this encounter Procedures + +--------+ + + + | Procedure Name | Priori | Date/Time | Associated Diagnosis | Comments | | | ty | | | | + +--------+ + + + | XR CHEST 2 VIEWS | Routin | 03/30/2014 | | Results for this | | | e | 9:32 PM | | procedure are in the | | | | PDT | | results section. | + +--------+ + + + documented in this encounter Results XR Chest 2 Vws (03/30/2014 9:32 PM PDT) + + | Specimen | + + | | + + + + + | Impressions | Performed At | + + + | 1. Patchy airspace infiltrates left upper lobe, with mild central | | | bronchial wall thickening and interstitial prominence. I would favor | | | an atypical pneumonitis. | | + + + + + + | Narrative | Performed At | + + + | HISTORY: Shortness of breath. COMPARISON: 12/11/13. | | | TECHNIQUE: PA and lateral films of the chest. FINDINGS: Focal | | | airspace infiltrate in the central left upper lobe and medial left | | | upper lobe interstitial prominence centrally in both lung mon. I | | | would favor an atypical pneumonitis. No effusions. Heart size is | | | normal. | | + + + + + | Procedure Note | + + | Nikita Hearn Conversion - 01/18/2019 1:22 AM PDT HISTORY:Shortness of breath. | | COMPARISON:12/11/13. TECHNIQUE:PA and lateral films of the chest. FINDINGS:Focal airspace | | infiltrate in the central left upper lobe and medial left upper lobe interstitial | | prominence centrally in both lung mon. I would favor an atypical pneumonitis. No | | effusions. Heart size is normal. IMPRESSION: 1. Patchy airspace infiltrates left upper | | lobe, with mild central bronchial wall thickening and interstitial prominence. I would | | favor an atypical pneumonitis. | | 10:06 PM | | | |FINDINGS: | |Focal airspace infiltrate in the central left upper lobe and medial left upper lobe interst itial prominence centrally in both lung mon. I would favor an atypical pneumonitis. No ef fusions. Heart size is normal. | | | |IMPRESSION: | |1. Patchy airspace infiltrates left upper lobe, with mild central bronchial wall thickenin g and interstitial prominence. I would favor an atypical pneumonitis. | | | | | + + documented in this encounter Visit Diagnoses + + | Diagnosis | + + | COPD exacerbation (HCC) Obstructive chronic bronchitis with exacerbation | + + documented in this encounter
--- OUTSIDE RECORDS SUMMARY | ~2019-12-01 | XMS | Encounter Summary ---
Demographics + + + | Address | [address] | | | [place] [address] | + + + | Home Phone [...] Author | [facility] | | | and [place] | + + + | Organization | [facility] | [...] Team Providers + +------+ + | Care Rope Machine Setter Name | Role | Phone | + [...] | | | | EMERGENCY CENTER | [place], [place] | | | | | [address] | [address] | | | | | [place], [place] | [phone] | | | | | [address] | | | | | | [phone] | | | +--------+ + + + [...] | | | | | | [address] [facility] [address] | | | | | | [place] [address] | | | | | | [phone] | | | | | | | | +--------+---------+ + + + documented as of this encounter Visit Diagnoses + + | Diagnosis | + + | Backache, unspecified | + + documented in this encounter"
--- OUTSIDE RECORDS SUMMARY | ~2019-12-01 | XMS | Encounter Summary ---
Demographics + + + | Address | [address] | | | [place] [address] | + + + | Home Phone | | + + + | Preferred Language | Unknown | + + + | Marital Status | Single | + + + | Buddhism Affiliation | 1009 | + + + | Race | Unknown | + + + | Ethnic Group | Unknown | + + + Author + + + | Author | [facility] | | | and [place] | + + + | Organization | [facility] [...] Team Providers + +------+ + | Care Case Management Director Name | Role | Phone | + +------+ + | Naren Nina PA-C | PCP | | + +------+ + Reason for Visit + +--------+ + | Reason | Onset | Comments | | | Date | | + +--------+ + | Appointment | 10/20/ | | | | 2020 | | + +--------+ + Encounter Details +--------+ + + + + | Date | Type | Department | Care Team | Description | +--------+ + + + + | 10/20/ | Telephone | [facility] | Jose Gonzalez DO | Appointment | | 2019 | | NEUROSURGERY [address] | [address] | | | | | [address] | | | | | [place], [place] | [place] [address] | | | | | [address] | [phone] | | | | | [phone] | | | +--------+ + + + [...] this encounter Miscellaneous Notes Telephone Encounter - Shahla Ramirez, Buggyman - 10/21/2019 2:33 PM PDTCall ed and talked to patient. Patient wanted to discuss with Dr. Gonzalez about possible surgery. Was last discussed back in 2018 during a follow up.ted has been experiencing a lot more pain. patient did state she is still smoking and trying to quit. Scheduled to 10/31/2019 for a follow up. Gave directions to our facility. And informed of the no visitor policy and is n egative for symptoms. Electronically signed by Shahla Ramirez Buggyman at 2:36 PM PDTTelephone Encounter - Willow Dunaway - 10/21/2019 12:56 PM PDT Bisi, is calling regarding Appointment and would like a call back. Additional Call Details: Patient stated she is in a lot of pain from her sciatic nerve aga in. She stated it feels the way it did before her last surgery and has to twist her leg to b e able to walk. She is wanting to know what the provider recommends. She stated she is strug gling to quit smoking and does not know how she'll stop because she's tried everything. She stated she is needing to know if provider will do surgery with her still smoking because she is in a lot of pain If this is a symptom based call, was patient offered triage? Not Applicable If this is a symptom based call and you were unable to immediately transfer the call to a shelley manzano patient experience coordinator was caller made aware that if at [...] B | | | | | | [place] [address] | | | | | | [phone] | | | | | | | | +--------+---------+ + + + documented as of this encounter Visit Diagnoses Not on filedocumented in this encounter"
--- OUTSIDE RECORDS SUMMARY | ~2019-12-01 | XMS | Encounter Summary ---
Demographics + + + | Address | [address] | | | [place] [address] | + + + | Home Phone [...] + + + | Author | [facility] | | | and [place] | + + + | Organization | [facility] | | | and [...] Team Providers + +------+ + | Care Paste Mixer Liquid Name | Role | Phone | + [...] + + | 02/15/ | Telephone | [facility] [place] | Henri Stewart, | Arm Pain | | 2015 | | PHYSIATRY [address] | MD [address] | | | | | [address] | [place], [place] | | | | | [place], [place] | [address] | | | | | [address] | | | | | | [phone] | | | +--------+ + + + [...] to contact our office or go to [facility] if pain is unbearable. Patient states understanding. Patient inquires if Dr. Stewart would like her to complete new imaging. Patient advised that at this point we would like he r to complete therapy first, unless symptoms were greatly changed, in which case reevaluatio n in the office would be needed. elephone Encounter - Mackenzie Mcclelland - 02/16/2016 9:[address] [facility] she's having a lot of left arm pain and it kind of feels like shocks per patient. Nika ent would like to know what she should or if there's anything that can be done for her. Juli lamb advise documented in thi s encounter Plan of Treatment +--------+---------+ + + + | Date | Type | Specialty | Care Team | Description | +--------+---------+ + + + | 12/11/ | Office | Neurosurgery | Veto Hernandes, | | | 2019 | Visit | | PRISON LIBRARIAN [address] | | | | | | [address] | | | | | | [place] [address] | | | | | | [phone] | | | | | | | | +--------+---------+ + + + documented as of this encounter Visit Diagnoses Not on filedocumented in this encounter
--- OUTSIDE RECORDS SUMMARY | ~2019-12-01 | XMS | Encounter Summary ---
Demographics + + + | Address | [address] | | | [place] [address] | + + + | Home Phone [...] | Author | [facility] | | | and [place] | + + + | Organization | [facility] [...] Providers + +------+ + | Care Front End Architect Name | Role | Phone | + [...] Provider Unknown | | | | | [place], [place] | | | | | | [address] | (Fax) | | | | | [phone] | | | +--------+ + + + [...] | | 2019 | Visit | | [facility] [address] | | | | | | [address] | | | | | | [place] [address] | | | | | | [phone] | | | | | | | [...] + + + + | FIBROSURE | [id number]: minimal | | EXTERNAL | | | [...] + + + + | Necroinflam | [id number]: significant | | EXTERNAL | | | [...] + + + | HCV-LOG 10 | [id number] (A) | 0 Log IU/ml | EXTERNAL [...]
--- OUTSIDE RECORDS SUMMARY | ~2019-12-01 | XMS | Encounter Summary ---
Demographics + + + | Address | [address] | | | [place] [address] | + + + | Home Phone | | + + + | Preferred Language | Unknown | + + + | Marital Status | Single | + + + | Sikhism Affiliation | 1009 | + + + | Race | Unknown | + + + | Ethnic Group | Unknown | + + + Author + + + | Author | [facility] | | | and [place] | + + + | Organization | [facility] | [...] Team Providers + +------+ + | Care Molecular Geneticist Name | Role | Phone | + +------+ + | Naren Nina PA-C | PCP | | + +------+ + Reason for Visit +--------+--------+ + | Reason | Onset | Comments | | | Date | | +--------+--------+ + | Other | 10/30/ | | | | 2020 | | +--------+--------+ + Encounter Details +--------+ + + + + | Date | Type | Department | Care Team | Description | +--------+ + + + + | 10/30/ | Telephone | [facility] | Jose Gonzalez DO | Other | | 2020 | | NEUROSURGERY [address] | [address] | | | | | [address] | [address] | | | | | [place], [place] | [place] [address] | | | | | [address] | [phone] | | | | | [phone] | | | +--------+ + + + [...] this encounter Miscellaneous Notes Telephone Encounter - Tara Mcneal, Glass Processing Worker - 11/03/2019 3:40 PM PDTReturned call to patient, no answer, LVM stating I have no messages from anyone else trying to reach her since STEPHANE Kim spoke with her and scheduled appt. Call back number left for any questio ns or concerns 3:4 4 PM PDTTelephone Encounter - Melina Marquez - 10/31/2019 4:53 PM PDTMelody, is calling r imani Other and would like a call back. Additional Call Details: Requesting call back regarding missed call. Please contact back a t mobile number listed. If this is a symptom based call, was patient offered triage? Not Applicable If this is a symptom based call and you were unable to immediately transfer the call to a shelley manzano rental car porter was caller made aware that if [...] B | | | | | | [place] [address] | | | | | | [phone] | | | | | | | | +--------+---------+ + + + documented as of this encounter Visit Diagnoses Not on filedocumented in this encounter"
--- OUTSIDE RECORDS SUMMARY | ~2019-12-01 | XMS | Encounter Summary ---
Demographics + + + | Address | [address] | | | [place] [address] | + + + | Home Phone | | + + + | Preferred Language | Unknown | + + + | Marital Status | Single | + + + | Adventism Affiliation | 1009 | + + + | Race | Unknown | + + + | Ethnic Group | Unknown | + + + Author + + + | Author | [facility] | | | and [place] | + + + | Organization | [facility] | | [...] Team Providers + +------+ + | Care Furniture Painter Name | Role | Phone | + +------+ + | Naren Nina PA-C | PCP | | + +------+ + Encounter Details +--------+ + + + + | Date | Type | Department | Care Team | Description | +--------+ + + + + | 06/06/ | Hospital | [facility] | Conversion | Lumbar radiculopathy | | 2018 | Encounter | [facility] | Transaction, | | | | | [address] | Provider Unknown | | | | | [address] [place], [place] | [phone] | | | | | [address] | | | | | | [phone] | Jose Gonzalez DO | | | | | | [address] | | | | | | [address] [place], | | | | | | [place] [address] | | | | | | [phone] | | | | | | | [...] 2 puffs into | | 0 | //20 | | | albuterol-ipratropiu | the lungs [...] 1 capsule by | | 0 | 01/22/20 | | | (PROZAC) 40 MG | [...] | | 2019 | Visit | | CONCRETE BATCHING PLANT OPERATOR [address] | | | | | | [address] | | | | | | [place] [address] | | | | | | [phone] | | | | | | | [...] + + | Dhiraj, Rad Conversion - 01/15/2019 5:31 AM PDT NOHEMI [id number] [...]
--- OUTSIDE RECORDS SUMMARY | ~2019-12-01 | XMS | Encounter Summary ---
Demographics + + + | Address | [address] | | | [place] [address] | + + + | Home Phone [...] + | Author | [facility] | | | and [place] | + + + | Organization | [facility] | | | [...] Team Providers + +------+ + | Care Seed Technician Name | Role | Phone | [...] Provider Unknown | | | | | [place], [place] | | | | | | [address] | (Fax) | | | | | [phone] | | | +--------+ + + + [...] | | | | | [place] [address] | | | | | | [phone] | | | | | | | [...]
--- OUTSIDE RECORDS SUMMARY | ~2019-12-01 | XMS | Encounter Summary ---
Demographics + + + | Address | [address] | | | [place] [address] | + + + | Home Phone | | + + + | Preferred Language | Unknown | + + + | Marital Status | Single | + + + | Lutheran Affiliation | 1009 | + + + | Race | Unknown | + + + | Ethnic Group | Unknown | + + + Author + + + | Author | [facility] | | | and [place] | + + + | Organization | [facility] | | [...] Team Providers + +------+ + | Care Firer Portable Boiler Name | Role | Phone | + +------+ + | Haydne Acevedo MD | PCP | | + +------+ + Encounter Details +--------+ + + + + | Date | Type | Department | Care Team | Description | +--------+ + + + + | 01/30/ | Hospital | [facility] | Carol Worrell MD | Thoracic or | | 2013 | Encounter | [facility]ENTER [facility] [address] | [address] | lumbosacral neuritis | | | | [address] | [address]TH FLOOR | or radiculitis, | | | | [place], [place] | [place] | unspecified; | | | | [address] | [address] | Radiculopathy of | | | | [phone] | [phone] | lumbar region; | | | | [...] 2 puffs into | | 0 | // | | | albuterol-ipratropiu | the lungs [...] 1908 Date of Service: 01/30/141799 Status: Signed Supervisor Framing Mill: Geovanna Fischer RN (Registered Nurse) Discharge teaching [...] Betancourt PA-C Service: Neurosurgery Author Type: Physician Networking Specialist - Ce rtified Filed: 01/30/14 1606 Date of Service: 01/30/14 160 Status: Signed Supervisor Framing Mill: Keesha Betancourt PA-C (Physician Networking Specialist - Certified) [facility] Service: Neurosurgery Progress Note Hospital [...] home. Follow up in 2 weeks in [facility] clinic. Discharge instructions given. Rx giv en for percocet and rolling walker. Disposition: Good Code Status: Full Code Keesha Betancourt PA-C 01/30/2014 lmendel, Me singh Hilton, PT - 01/30/2014 2:44 PM PDTFormatting of this note might be different from the christian saeed. Therapy Progress Note by Demi Paige PT at 01/30/14 1645 Author: Demi Paige PT Service: (none) Author Type: Physical Therapist Filed: 01/30/14 1546 Date of Service: 01/30/141443 Status: Signed Supervisor Framing Mill: Demi Paige PT (Physical Therapist) 01/30/14 1447 PT Last Visit PT Received On 01/30/14 Reason for Treatment Spinal surgery Requires PT Follow Up No PT Eval/Reassessment Date 01/30/14 Assistance Required 1 person;Independent Seamark Advanced Operator Maintainer Needed No Requires PT Follow Up No [...] Walker front wheeled Prior Function Level of [place] Modified independent with functional mobility;Modified independent wi [...] Eval/Reassessment Date 01/30/14 Assistance Required 1 person;Independent Seamark Advanced Operator Maintainer Needed No Precautions Spinal Precautions Lumbar Other [...] 105/58 94 97% (pre-activity supine) Marnie Cueva [facility] - 01/30/2014 11:22 AM PDT Progress Notes by Marnie Dewitt RPH at 01/30/141121 Author: Marnie Dewitt RPH Service: (none) Author Type: Pharmacist Filed: 01/30/141121 Date of Service: 01/30/141121 Status: Signed Supervisor Framing Mill: Marnie Dewitt RPH (Pharmacist) Renal Dosing Monitoring: [...] original. H&P by Carol Worrell MD at 01/30/14608 Author: Carol Worrell MD Service: Neurosurgery Author Type: Physician Filed: 01/30/14613 Date of Service: 01/30/14608 Status: Signed Supervisor Framing Mill: Carol Worrell MD (Physician) [facility] Service: Neurosurgery Pre-Operative History & Physical CHIEF COMPLAINT: Left leg radicular pain History Obtained From: patient HISTORY OF PRESENT ILLNESS Patient ID: Nohemi Espitia is a 53 y.o. female who is [...] REPAIR); Surgeon: Misha Dye MD; Locatio n: [facility]; Service: SERVICE STATION HELPER; Laterality: N/A; Anterior portion was not completed Bladder suspension 12/24/2013 Procedure: BLADDER SUSPENSION - TVT; Surgeon: Misha Dye MD; Location: [facility]; Service: SERVICE STATION HELPER; Laterality: N/A; TVT exact Cystoplasty 12/24/2013 Procedure: CYSTOSCOPY - HYDRODISTENTION OF BLADDER; Surgeon: Misha Dye MD; Locati on: [facility]; Service: SERVICE STATION HELPER; Laterality: N/A; 70 degree scope. Indigo Emilia dye a vailable to Anesthesiologist Enterocele repair 12/24/2013 Procedure: ENTEROCELE RPR; Surgeon: Misha Dye MD; Location: [facility]; Servic e: SERVICE STATION HELPER; Laterality: N/A; Allergies Allergen Reactions Morphine Other (See Comments) Used FOSTER CARE THERAPIST and it lowered her BP And medication [...] for Cough. 30 capsule 2 ergocalciferol (DRISDOL) 65902 UNITS capsule Take 1 capsule by mouth [...] flexors 5 5 Hand intrinsics 5 5 Music Publicist 5 5 Hip flexors 5 5 Quadriceps [...] Care by Geovanna Fischer RN at 01/30/14 7012 Author: Geovanna Fischer RN Service: (none) Author Type: Registered Nurse Filed: 01/30/14 8611 Date of Service: 01/30/14 479 Status: Signed Supervisor Framing Mill: Geovanna Fischer RN (Registered Nurse) Patient meeting discharge criteria. lan o f Care - Conversion Transaction, Provider Unknown - 01/30/2014 12:06 PM PDTFormatting of thi s note might be different from the original. Plan of Care by Geovanna Fischer RN at 01/30/14 0930 Author: Geovanna Fischer RN Service: (none) Author Type: Registered Nurse Filed: 01/30/14 0439 Date of Service: 01/30/141205 Status: Signed Supervisor Framing Mill: Geovanna Fischer RN (Registered Nurse) Problem: Potential [...] Date of Service: 01/30/14 1011 Status: Signed Supervisor Framing Mill: Carol Worrell MD (Physician) [facility] OPERATIVE NOTE NEUROSURGERY DEPT Name: Nohemi Espitia Age: 53 y.o. Todays Date: 01/30/2014 Time: [...] WORRELL MD has created this entry using Flimper Voice Recognition software and [employer] macros. The entry has been reviewed and there may still exist sound alike word err ors. p Note - Angeline Worrell MD - 01/30/2014 10:11 AM PDTFormatting of this note might be different from the christian christophe. Brief Op Note by Carol Worrell MD at 01/30/14 1011 Author: Carol Worrell MD Service: Neurosurgery Author Type: Physician Filed: 01/30/14 1011 Date of Service: 01/30/14 1011 Status: Signed Supervisor Framing Mill: Carol Worrell MD (Physician) [facility] Service: Neurosurgery Brief Op Note See complete electronic operative report for full details. CAROL WORRELL MD 01/30/2014 documented in this encounter Plan of Treatment +--------+---------+ + + + | Date | Type | Specialty | Care Team | Description | +--------+---------+ + + + | 12/11/ | Office | Neurosurgery | Veto Hernandes, | | | 2019 | Visit | | MAIL ROOM CLERK [address] | | | | | | [address] | | | | | | [place] [address] | | | | | | [phone] | | | | | | | [...] Nikita Hearn Conversion - 01/18/2019 1:22 AM SVETLANA HOLLINS C-ARM FLUORO OVER 1 | | 01/30/2014 9:07 AM History: 53 years. Female. Localization [...]
--- OUTSIDE RECORDS SUMMARY | ~2019-12-01 | XMS | Encounter Summary ---
Demographics + + + | Address | [address] | | | [place] [address] | + + + | Home Phone [...] | [facility] | | | and [place] | + + + | Organization | [facility] | | | and [...] Team Providers + +------+ + | Care Merchandiser Retail Representative Name | Role | Phone | + +------+ + | Hayden Acevedo MD | PCP | | + +------+ + Encounter Details +--------+ + + + + | Date | Type | Department | Care Team | Description | +--------+ + + + + | 09/14/ | Emergency | [facility] | Maximiliano Harrison, | Acute bronchitis | | 2015 | | MEDICAL CENTER | [address] | with COPD ([facility]); | | | | EMERGENCY CENTER | [place] [address] | Acute back pain | | | | [address] | [phone] | | | | | [place], [place] | | | | | | [address] | | | | | | [phone] | | | +--------+ + + + [...] 2104 Date of Service: 09/14/142011 Status: Signed Health Safety Coordinator: Maximiliano Harrison MD (Physician) [facility] Department of Emergency Medicine No flowsheet data [...] Cholecystectomy Appendectomy Bladder surgery suspension [facility] 07/14/2013 [facility] 08/06/2013 Cataract extraction Breast surgery lumpectomy Colonoscopy section Eye surgery cataracts Cystocele and rectocele repair 12/24/2013 Procedure: CYSTOCELE AND RECTOCELE (A & P REPAIR); Surgeon: Misha Dye MD; Locatio n: [facility]; Service: COTTON STRIPPER; Laterality: N/A; Anterior portion was not completed Bladder suspension 12/24/2013 Procedure: BLADDER SUSPENSION - TVT; Surgeon: Misha Dye MD; Location: [facility]; Service: COTTON STRIPPER; Laterality: N/A; TVT exact Cystoplasty 12/24/2013 Procedure: CYSTOSCOPY - HYDRODISTENTION OF BLADDER; Surgeon: Misha Dye MD; Locati on: [facility]; Service: COTTON STRIPPER; Laterality: N/A; 70 degree scope. Indigo Emilia dye a vailable to Anesthesiologist Enterocele repair 12/24/2013 Procedure: ENTEROCELE RPR; Surgeon: Misha Dye MD; Location: [facility]; Servic e: COTTON STRIPPER; Laterality: N/A; Foraminotomy Left 01/30/2014 Procedure: FORAMINOTOMY; Surgeon: Juan Alberto Worrell MD; Location: [facility]; Service: Neurosurgery; Laterality: Left; L [...] sure of dose Historical Provider ergocalciferol (DRISDOL) 88104 UNITS capsule Take 1 capsule by mouth [...] Allergen Reactions Morphine Other (See Comments) Used TECHNOLOGY INTERNSHIP and it lowered her BP And medication [...] Documented by Maximiliano Harrison MD (09/14/14 20:43:27, [facility], Emergency Medicine) This ED initial [...] Information Follow up With Details Comments Contact [facility] [address] [place] [address] Per Pt None Discharge Medications: Discharge Medication [...] 09/14/142013 Date of Service: 09/14/142007 Status: Addendum Health Safety Coordinator: Rosalinda Ortiz RN (Registered Nurse) Related Notes: Original Note by Rosalinda Ortiz RN (Registered Nurse) filed at 09/14/142008 Pt states "I just got here from [place], before leaving I had bronchitis and was taking z- smiley. I got here and this baby had a cold and since I have COPD I usually get very sick and pneumonia. I also have a CARRINGTON and back." Rosalinda Ortiz RN 09/14/142013 docume jennyed in this encounter Plan of Treatment +--------+---------+ + + + | Date | Type | Specialty | Care Team | Description | +--------+---------+ + + + | 12/11/ | Office | Neurosurgery | Veto Hernandes, | | | 2019 | Visit | | LANDSCAPE GARDENER [address] | | | | | | [address] | | | | | | [place] [address] | | | | | | [phone] | | | | | | | [...]
--- OUTSIDE RECORDS SUMMARY | ~2019-12-01 | XMS | Encounter Summary ---
Demographics + + + | Address | [address] | | | [place] [address] | + + + | Home Phone [...] | Author | [facility] | | | and [place] | + + + | Organization | [facility] | | [...] Team Providers + +------+ + | Care Residence Counselor Name | Role | Phone | + +------+ + | Hayden Acevedo MD | PCP | | + +------+ + Encounter Details +--------+ + + + + | Date | Type | Department | Care Team | Description | +--------+ + + + + | 08/21/ | Hospital | [facility] | Conversion | | | 2014 | Encounter | [facility] | Transaction, | | | | | [address] | Provider Unknown | | | | | [place], [place] | [phone] | | | | | [address] | | | | | | [phone] | Misha Dye MD | | | | | | [address] | | | | | | [address] [place], [place] | | | | | | [address] | | | | | | | [...] | | | | | [place] [address] | | | | | | [phone] | | | | | | | | +--------+---------+ + + + documented as of this encounter Visit Diagnoses Not on filedocumented in this encounter"
--- OUTSIDE RECORDS SUMMARY | ~2019-12-01 | XMS | Encounter Summary ---
Demographics + + + | Address | [address] | | | [place] [address] | + + + | Home Phone | | + + + | Preferred Language | Unknown | + + + | Marital Status | Single | + + + | Quaker Affiliation | 1009 | + + + | Race | Unknown | + + + | Ethnic Group | Unknown | + + + Author + + + | Author | [facility] | | | and [place] | + + + | Organization | [facility] | | | and [...] Providers + +------+ + | Care Poultry Hatchery Laborer Name | Role | Phone | + +------+ + | Naren Nina PA-C | PCP | | + +------+ + Encounter Details +--------+ + + + + | Date | Type | Department | Care Team | Description | +--------+ + + + + | 03/17/ | Orders Only | [facility]OT | HallMaximiliano L, | | | 2013 | | AND ANKLE XRAY [address] | DPM [address] | | | | | [address] | [address], | | | | | [place], [place] | [place] [address] | | | | | [address] | [phone] | | | | | [phone] | | | +--------+ + + + [...] 12/11/ | Office | Neurosurgery | Veto Hernaneds, | | | 2019 | Visit | | MULTIMEDIA PRODUCTION ASSISTANT [address] | | | | | [address] | | | | | | [place] [address] | | | | | | [phone] | | | | | | | [...]
--- OUTSIDE RECORDS SUMMARY | ~2019-12-01 | XMS | Encounter Summary ---
Demographics + + + | Address | [address] | | | [place] [address] | + + + | Home Phone [...] | Author | [facility] | | | and [place] | + + + | Organization | [facility] | | | and [place] [...] Team Providers + +------+ + | Care Teletypesetter Name | Role | Phone | + +------+ + | Hayden Acevedo MD | PCP | | + +------+ + Encounter Details +--------+ + + + + | Date | Type | Department | Care Team | Description | +--------+ + + + + | 09/19/ | Hospital | [facility] | Geovanny Law MD | Nicotine addiction; | | 2013 - | Encounter | MEDICAL CENTER | [address] | OAB (overactive | | | | CLINICAL DECISION | [place] [address] | bladder); GERD | | 09/21/ | | [address] | [phone] | (gastroesophageal | | 2013 | | [place] | | reflux disease); | | | | [address] | | Vitamin D | | | | [phone] | | deficiency; COPD | | | [...] 1011 Date of Service: 09/21/131756 Status: Signed Sheet Metal Welder: Philip Singh MD (Physician) Related Notes: Original Note by Philip Singh MD (Physician) filed at 09/21/13 1805 [facility] Service: Hospitalist Physician Discharge Summary Patient ID: Bisi Espitia 1960 53 y.o. Admit date: 09/19/2013 [...] Hospital Course: The patient was admitted to [facility] on September 19, 2013, with significantly [...] improvement, and at the time of di lazaro her total CK was only 519. She [...] be discharged home as noted above. [facility] arranged for the patient to receive paid-for taxi transportation to her house hold in the [facility]. The family of the patient was not available for transport at the janette e of discharge from the hospital. Past Medical History: Past Medical History Diagnosis Date Anxiety Hypertension Thyroid disease Depression Past Surgical History Procedure Date Hysterectomy Cholecystectomy Appendectomy Bladder surgery [facility] 07/14/2013 [facility] 08/06/2013 Discharged Condition: Stable for discharge as stated above. Significant Diagnostic Studies: Ct Head Non-con 09/19/[address] HEAD WO CONTRAST HISTORY: 53 years. Female. Altered mental status. TECHNIQUE: CT examination the head was performed without contrast. COMPARISON: Non e. FINDINGS: No abnormal areas of increased or decreased density seen throughout the brain. No mass, hemorrhage, midline shift, or extra-axial fluid collection. 09/19/[address] head without contrast. Ultrasound Retroperitoneal Limited 09/19/2013 BISI ESPITIA 1960 US RETROPERITONEAL LIMITED 09/19/2013 7:39 [...] 7:40 PM X-ray Chest 1 View 09/19/2013 BISILEONARD GUTIERREZSHABBIR 1960 53 years XR CHEST 1 VIEW [...] Oral Oral Oral Oral Resp: 18 16 Height: Weight: 112.855 kg (248 lb [...] or Self Care Follow up: ANURAG Winters [address] [facility] [address] Schedule an appointment as soon as possible [...] needed for muscle spasm and tightness ergocalciferol 77986 UNITS capsule QTY: 12 capsule Refills: 0 For diagnoses: Low Vitamin D Level Commonly known as: DRISDOL Take 1 capsule by mouth once a week. estradiol 0.1 MG/GM vaginal cream QTY: 42.5 g Refills: 12 For diagnoses: Loss Of Bladder Control, Painful Sexual [place], Fallen Bladder, Sag[place] g Of Female Genital [...] Service: (none) Author Type: Pharmacist Filed: 09/21/13 115 Date of Service: 09/21/131149 Status: Signed Sheet Metal Welder: Marce Garcia RPH (Pharmacist) Clinical Pharmacy Note: Renal Monitoring Bisi Espitia 53 y.o. female Ht Readings from [...] an d adjust accordingly. Marce Garcia, [facility] 09/21/2013 11:49 AM Nura Thomas - 09/21/2013 11:12 AM PDTFormatting of this note might be different from the or iginal. Progress Notes by Nura Lee MD at 09/21/13 1112 Author: Nura Lee MD Service: Nephrology Author Type: Physician Filed: 09/21/13 1439 Date of Service: 09/21/13 1112 Status: Signed Sheet Metal Welder: Nura Lee MD (Physician) [facility] Service: NEPHROLOGY progress Note Bisi Espitia 53 y.o. [id number] 315/315-1 female [facility] Day: LOS: 2 days The patient [...] Hysterectomy Cholecystectomy Appendectomy Bladder surgery [facility] 07/14/2013 [facility] 08/06/2013 Prescriptions prior to admission Medication Sig Dispense Refill albuterol (PROVENTIL) (2.5 MG/3ML) 0.083% nebulizer solution Take 6 mLs by nebulization every 6 (six) hours as needed for Wheezing. 20 vial 1 baclofen (LIORESAL) 10 MG tablet Take 1-2 tabs po q 8hrs as needed for muscle spasm and tightness 75 tablet 0 ergocalciferol (DRISDOL) 25218 UNITS capsule Take 1 capsule by mouth [...] >60 mL/min/1.73m2 IMAGING: Ct Head Non-con 09/19/[address] HEAD WO CONTRAST HISTORY: 53 [...] JULIUS GALEANO UNDERSTANDING NURA LEE MD 09/21/2013 MARIIA FULTON onversion Transactio n, Provider Unknown - 09/21/2013 4:59 AM PDT Progress Notes by Aury Belcher RN at 09/21/13 1005 Author: Aury Belcher RN Service: (none) Author Type: Registered Nurse Filed: 09/21/13 0502 Date of Service: 09/21/13 790 Status: Signed Sheet Metal Welder: Aury Belcher RN (Registered Nurse) Patient alert [...] Notes by Philip Singh MD at 09/20/13 5614 Author: Philip Singh MD Service: (none) Author Type: Physician Filed: 09/21/13 0926 Date of Service: 09/20/13 3247 Status: Signed Sheet Metal Welder: Philip Singh MD (Physician) Related Notes: Original Note by Philip Singh MD (Physician) filed at 09/20/13 1802 [facility] Service: Hospitalist Progress Note Pt: Bisi Espitia AGE/SEX: 53 y.o. female : 1960 ROOM: [address] [place] [address] " HISTORY OF PRESENT ILLNESS The patient [...] and confused. Hence, she was referred to [facility] Emergency Department where the patient's blood [...] arrest and intubation at a hospital in [place] as per the patient/niece's report. During my [...] -- 1.8 Diagnostic: Ct Head Non-con 09/19/[address] HEAD WO CONTRAST HISTORY: 53 years. Female. Altered mental status. TECHNIQUE: CT examination the head was performed without contrast. COMPARISON: Non e. FINDINGS: No abnormal areas of increased or decreased density seen throughout the brain. No mass, hemorrhage, midline shift, or extra-axial fluid collection. 09/19/[address] head without contrast. Ultrasound Retroperitoneal Limited 09/19/2013 BISI ESPITIA 1960 US RETROPERITONEAL LIMITED 09/19/2013 7:39 [...] 7:40 PM X-ray Chest 1 View 09/19/2013 BISI Roblero OMKAR 1960 53 years XR CHEST 1 VIEW [...] Procedure Date Hysterectomy Cholecystectomy Appendectomy Bladder surgery [facility] 07/14/2013 [facility] 08/06/2013 PROBLEM LIST Active Problems: Altered mental [...] and confused. She was subsequently transferred to [facility] emergency room for evaluation. She was found [...] Case Management by OG Bailey at 09/20/13 5475 Author: OG Bailey Service: (none) Author Type: Physician [facility] Filed: 09/20/13 4384 Date of Service: 09/20/13 1545 Status: Addendum Sheet Metal Welder: OG Bailey (Physician [facility]) Related Notes: Original Note by OG Bailey (Physician [facility]) filed at 09/20/13 1550 09/20/13 1500 Discharge [...] ill return to her Mobile Home in [place], [place]. Pt stated that her relative will be transpor ting her home upon DC. Patient's PCP is: MARIIA FULTON Patient's insurance: [employer] Coverage concerns: No Medication coverage/concerns: No Community resources utilized / needed: No Assistance in transportation: Pt stated that her family member will transport her home. Identification of any specific education / training: N/A Barriers to Discharge / Alternative housing needed: N/A Anticipated DCP: Pt will return to her prior living situation in [place], [place] Roslyn Springer Nura Thomas - 09/20/2013 1:04 PM PDTFormatting of this note might be different from the or iginal. Progress Notes by Nuar Lee MD at 09/20/13 1304 Author: Nura Lee MD Service: Nephrology Author Type: Physician Filed: 09/20/13 9897 Date of Service: 09/20/13 1304 Status: Signed Sheet Metal Welder: Nura Lee MD (Physician) [facility] Service: NEPHROLOGY progress Note Bisi Espitia 53 y.o. [id number] 315/315-1 female [facility] Day: LOS: 1 day The patient [...] and tightness 75 tablet 0 ergocalciferol (DRISDOL) 45016 UNITS capsule Take 1 capsule by mouth [...] 4.8 mg/dL IMAGING: Ct Head Non-con 09/19/[address] HEAD WO CONTRAST HISTORY: 53 [...] JULIUS GALEANO UNDERSTANDING NURA LEE MD 09/20/2013 MARIIA FULTON onversion Transactio n, Provider Unknown - 09/19/2013 6:37 PM PDT Progress Notes by Marce Garcia RPH at 09/19/131836 Author: Marce Garcia RPH Service: (none) Author Type: Pharmacist Filed: 09/19/131836 Date of Service: 09/19/131836 Status: Signed Sheet Metal Welder: Marce Garcia RPH (Pharmacist) Clinical Pharmacy Note: Renal Monitoring Bisi Espitia 53 y.o. female Ht Readings from [...] H&P by Geovanny Law MD at 09/19/13 1524 Author: Geovanny Law MD Service: Hospitalist Author Type: Physician Filed: 09/19/13 6291 Date of Service: 09/19/13 1524 Status: Signed Sheet Metal Welder: Geovanny Law MD (Physician) Related Notes: Original Note by Geovanny Law MD (Physician) filed at 09/19/13 7206 Admission History & Physical Date of Admission: [...] and confused. Hence, she was referred to [facility] Emergency Department where the patient's blood [...] htness 08/15/13 Rosemary Perea MD ergocalciferol (DRISDOL) 69200 UNITS capsule Take 1 capsule by mouth [...] every morning be fore breakfast. 06/25/13 06/25/14 Mariia Strand, LEASE BROKER lisinopril (PRINIVIL,ZESTRIL) 10 MG tablet Take 1 tablet by mouth daily. 06/25/13 ANURAG Witners loratadine (CLARITIN) 10 MG tablet Take 1 [...] Procedure Date Hysterectomy Cholecystectomy Appendectomy Bladder surgery [facility] 07/14/2013 [facility] 08/06/2013 (Not in a hospital admission) No [...] to be somnolent, confused, and transferred to [facility] where she was found to have altered [...] Code Status: No Order Primary Care Physician: MARIIA LAW MD 09/19/2013 documented in this en counter Consult Notes Nura Lee - 09/19/2013 4:12 PM PDT Consult* by Nura Lee MD at 09/19/13 1612 Author: Nura Lee MD Service: Nephrology Author Type: Physician Filed: 09/20/13 1307 Date of Service: 09/19/13 1612 Status: Addendum Sheet Metal Welder: Nura Lee MD (Physician) Related Notes: Original Note by Nura Lee MD (Physician) filed at 09/20/13 1301 [facility] Service: NEPHROLOGY CONSULT Note Bisi Espitia 53 y.o. [id number] 01/[address] [facility] Day: LOS: 0 days Date of Admission: [...] drowsy, and confused so was referred to [facility] Emergen cy Department where the patient's blood [...] Procedure Date Hysterectomy Cholecystectomy Appendectomy Bladder surgery [facility] 07/14/2013 [facility] 08/06/2013 (Not in a hospital admission) No [...] 408 QTC Calculation (Bezet) 459 Calculated P [place] 10 Calculated R [place] 26 Calculated T [place] 20 Diagnosis Value: Normal sinus rhythm Normal ECG No previous ECGs available This ECG contains Unconfirmed Interpretation Statements. See ED Record for Physician In terpretation. Confirmed by MUSE READ ONLY, -COMPUTER (500), videotape editor JERAMY TRAORE (4) on 09/19/2013 2:2 1:45 PM [facility] CARD PANEL W/O TRP (ED ONLY) Collection [...] Casts 11-15 IMAGING: Ct Head Non-con 09/19/[address] HEAD WO CONTRAST HISTORY: 53 [...] complex medical problems NURA LEE MD 09/19/2013 MARIIA FULTON documented in this en counter ED Notes Conversion Transaction, Provider Unknown - 09/19/2013 2:39 PM PDTFormatting of this note m ight be different from the original. ED Notes by Shine Franco RN at 09/19/13 8989 Author: Shine Franco RN Service: (none) Author Type: Registered Nurse Filed: 09/19/131438 Date of Service: 09/19/131438 Status: Signed Sheet Metal Welder: Shine Farnco RN (Registered Nurse) at bedside. Otis, hospitalist Shine Franco RN 09/19/131438 onver david Transaction, Provider Unknown - 09/19/2013 1:37 PM PDT ED Notes by Shine Franco RN at 09/19/131336 Author: Shine Franco RN Service: (none) Author Type: Registered Nurse Filed: 09/19/131337 Date of Service: 09/19/131336 Status: Signed Sheet Metal Welder: Shine Franco RN (Registered Nurse) Pt is [...] Date of Service: 09/19/13 1303 Status: Signed Sheet Metal Welder: Apple Juarez MD (Physician) Procedure Orders: 1. Critical Care [[id number]] ordered by Apple Juarez MD at 09/19/131940 [facility] Department of Emergency Medicine History of Present Illness Patient Identification Bisi Espitia is a 53 y.o. female. Patient information was obtained from patient. History/Exam limitations: none. Patient presented to the Emergency Department [place] [address] Room:315/315-1 Chief Complaint Chief Complaint Patient presents [...] [facility] and [facility] referred her to the emergency department for her fatigue. She denies any focal weakness, numbness, tingling. No headache, chest pain, shortness of breath. No recent illnesses. Symptoms are described as moderate in severity. No aggravating or alejo viating factors. Primary Care Doctor: MARIIA FULTON Past Medical History Diagnosis Date Anxiety [...] htness 08/15/13 Rosemary Perea MD ergocalciferol (DRISDOL) 42082 UNITS capsule Take 1 capsule by mouth [...] by mouth 2 (two) times daily. 06/24/13 Mariia Strand, LEASE BROKER oxyCODONE-acetaminophen (PERCOCET) 10-325 MG per tablet Take [...] Department Course ED Department Course: 1:03 PM Bisi Espitia is a 53 y.o. female who [...] The patient will require admission to the [facility] for stabilization of her condition and further evaluation. I will contact the hospita list for admission. 2:36 PM BP has [...] Abuse Screen, UR (Hospital And ED Only) [[id number]] (Abnormal) Collected:09/19 1428 Order Status:Completed Updated:09/19/13 1505 Specimen Information:Urine, Clean Catch AMPHETAMINE/METHAMPHETAMINE NEGATIVE NEGATIVE BARBITUATES NEGATIVE NEGATIVE BENZODIAZEPINE NEGATIVE NEGATIVE COCAINE NEGATIVE NEGATIVE METHADONE NEGATIVE NEGATIVE OPIATES NEGATIVE NEGATIVE PCP NEGATIVE NEGATIVE THC POSITIVE (A) NEGATIVE Urine Microscopic [[id number]] (Abnormal) Collected:09/19/13 1429 Order Status:Completed Updated:09/19/13 1456 Specimen Information:Urine / Urine, Catheter WBC 0-2 0 - 5 /hpf RBC 0-2 0 - 5 /hpf EPITHELIAL 6-10 /lpf BACTERIA TRACE (A) NONE SEEN Casts 11-15 /lpf Myoglobin, urine [[id number]] Collected:09/19/13 1428 Order Status:Completed Updated:09/19/13 1450 Specimen Information:Urine / Urine, Clean Catch MYOGLOBIN SCREEN NEGATIVE Ethanol Level [[id number]] Collected:09/19/13 1320 Order Status:Completed Updated:09/19/13 1445 Specimen Information:Blood ALCOHOL,ETHYL <3 <10 mg/dL POC clinitek 10 [[id number]] (Abnormal) Collected:09/19/13 1419 Order Status:Completed Updated:09/19/13 1424 [...] NEGATIVE WBC, UA NEGATIVE NEGATIVE Cardiac Panel [[id number]] (Abnormal) Collected:09/19/13 1320 Order Status:Completed Updated:09/19/13 1401 [...] - 3.6 ng/mL CK-MB Index 1.8 TSH [[id number]] Collected:09/19/131319 Order Status:Completed Updated:09/19/13 140 Specimen Information:Blood TSH 0.61 0.45 - 5.10 uIU/mL Ammonia Level [[id number]] Collected:09/19/131319 Order Status:Completed Updated:09/19/13 1401 Specimen Information:Blood AMMONIA 30 <33 umol/L C-Reactive Protein [[id number]] (Abnormal) Collected:09/19/13 132 Order Status:Completed Updated:09/19/13 1353 Specimen Information:Blood CRP 3.4 (H) <0.5 mg/dL T4, Free [[id number]] Collected:09/19/13 1320 Order Status:Completed Updated:09/19/13 1353 Specimen Information:Blood FREE T4 1.1 0.7 - 1.5 ng/dL POC cardiac troponin [[id number]] Collected:09/19/13 1326 Order Status:Completed Updated:09/19/13 1340 POC [...] 1. Unremarkable CT head without contrast. Narrative: BISI ESPITIA CT HEAD WO CONTRAST HISTORY: 53 years. Female. Altered mental status. TECHNIQUE: CT examination the head was performed without contrast. COMPARISON: None. FINDINGS: No abnormal areas of increased or decreased density seen throughout the brain. No mass, hem orrhage, midline shift, or extra-axial fluid collection. ECG from 1258: Normal sinus rhythm at 76 bpm. VT, QRS, QT, and axis are normal. No [...] recognition system. The possibility of "sound alike" bankruptcy law specialist errors, addition and/or deletions may occur. If there is any question p lease contact the author of the document. Additional Documentation Critical Care Performed by: APPLE JUAERZ Authorized by: APPLE JUAREZ Total critical care [...] studies, re-evaluation of patient's condition, discussions w [facility] consultants, interpretation of cardiac output measurements, obtaining history from patie nt or surrogate, ordering and review of radiographic studies and review of old charts. Apple Juarez MD 09/19/13 194 onversion Transactio n, Provider Unknown - 09/19/2013 12:52 PM PDT ED Notes by Shine Franco RN at 09/19/13 1252 Author: Shine Franco RN Service: (none) Author Type: Registered Nurse Filed: 09/19/131251 Date of Service: 09/19/131251 Status: Signed Sheet Metal Welder: Shien Franco RN (Registered Nurse) Bed:08
Expected date:
[...] B | | | | | | [place] [address] | | | | | | [phone] | | | | | | | [...] documented in this encounter Results External Lab: [facility] (09/21/2013 4:40 AM PDT) + + + + + + | Component | Value | Ref Range | Performed | Pathologist | | | | | At | Signature | + + + + + + | WBC | 6.2Comment: Testing | 3.8 - 11.0 K/uL | EXTERNAL | | | | performed at [facility], [address] | | LAB | | | | [address], | | | | | | [place] [address] | | | | + + + + + + | Red Blood | 3.63 (L)Comment: Testing | 3.70 - 5.10 | EXTERNAL | | | Cells | performed at [facility], [address] | M/uL | LAB | | | Counted | [address], | | | | | | [place] [address] | | | | + + + + + + | Hemoglobin | 10.9 (L)Comment: Testing | 11.3 - 15.5 | EXTERNAL | | | | performed at [facility], [address] | g/dL | LAB | | | | [address], | | | | | | [place] [address] | | | | + + + + + + | Hematocrit, | 33.2 (L)Comment: Testing | 34.0 - 46.0 % | EXTERNAL | | | POC | performed at [facility], [address] | | LAB | | | | [address], | | | | | | [place] [address] | | | | + + + + + + | MCV | 91.6Comment: Testing | 80.0 - 100.0 fl | EXTERNAL | | | | performed at [facility], [address] | | LAB | | | | [address], | | | | | | [place] [address] | | | | + + + + + + | MCH | 30.1Comment: Testing | 27.0 - 34.0 pg | EXTERNAL | | | | performed at [facility], [address] | | LAB | | | [address], | | | | | | [place] [address] | | | | + + + + + + | MCHC | 32.9Comment: Testing | 32.0 - 35.5 | EXTERNAL | | | | performed at [facility], [address] | g/dL | LAB | | | | [address], | | | | | | [place] [address] | | | | + + + + + + | RDW-CV | 45.9Comment: Testing | 37 - 53 fl | EXTERNAL | | | | performed at [facility], [address] | | LAB | | | | [address], | | | | | | [place] [address] | | | | + + + + + + | Platelet | 314Comment: Testing | 150 - 400 K/uL | EXTERNAL | | | Count | performed at [facility], [address] | | LAB | | | Plasma | [address], | | | | | | [place] [address] | | | | + + + + + + | MPV | 7.5Comment: Testing | fl | EXTERNAL | | | | performed at [facility], [address] | | LAB | | | | [address], | | | | | | [place] [address] | | | | + + + + + + | Differentia | AUTOMATEDComment: | | EXTERNAL | | | l Type | Testing performed at | | LAB | | | | [facility], [address] | | | | | | [place] | | | | | | [address] | | | | + + + + + + | % Segmented | 39.7Comment: Testing | % | EXTERNAL | | | | performed at [facility], [address] | | LAB | | | Neutrophils | [address], | | | | | | [place] [address] | | | | + + + + + + | % | 48.1Comment: Testing | % | EXTERNAL | | | Lymphocytes | performed at [facility], [address] | | LAB | | | | [address], | | | | | | [place] [address] | | | | + + + + + + | % Monocytes | 6.6Comment: Testing | % | EXTERNAL | | | | performed at [facility], [address] | | LAB | | | | [address], | | | | | | [place] [address] | | | | + + + + + + | % | 5.3Comment: Testing | % | EXTERNAL | | | Eosinophils | performed at [facility], [address] | | LAB | | | | [address], | | | | | | [place] [address] | | | | + + + + + + | % Basophils | 0.3Comment: Testing | % | EXTERNAL | | | | performed at [facility], [address] | | LAB | | | | [address], | | | | | | [place] [address] | | | | + + + + + + | Absolute | 2.5Comment: Testing | 1.9 - 7.4 K/uL | EXTERNAL | | | Segmented | performed at [facility], [address] | | LAB | | | Neutrophils | [address], | | | | | | [place] [address] | | | | + + + + + + | Absolute | 3.0Comment: Testing | 1.0 - 3.9 K/uL | EXTERNAL | | | Lymphocytes | performed at [facility], [address] | | LAB | | | | [address], | | | | | | [place] [address] | | | | + + + + + + | Absolute | 0.4Comment: Testing | 0 - 0.8 K/uL | EXTERNAL | | | Monocytes | performed at [facility], [address] | | LAB | | | | [address], | | | | | | [place] [address] | | | | + + + + + + | Absolute | 0.3Comment: Testing | 0 - 0.5 K/uL | EXTERNAL | | | Eosinophils | performed at [facility], [address] | | LAB | | | | [address], | | | | | | [place] [address] | | | | + + + + + + | Absolute | 0.0Comment: Testing | 0 - 0.1 K/uL | EXTERNAL | | | Basophils | performed at [facility], [address] | | LAB | | | | [address], | | | | | | [place] [address] | | | | + + + [...] EXTERNAL | | | | performed at [facility], [address] | | LAB | | | | [address], | | | | | | [place] [address] | | | | + + + [...] EXTERNAL | | | | performed at [facility];[address] | | LAB | | | | [address];[place], [place] | | | | | | [address] | | | | + + + [...] | | | | | [place] [address] | | | | + + + + + + | K | 4.2Comment: Testing | 3.5 - 4.9 | EXTERNAL | | | | performed at [facility], [address] | mmol/L | LAB | | | | [address], | | | | | | [place] [address] | | | | + + + + + + | Cl | 114 (H)Comment: Testing | 99 - 109 mmol/L | EXTERNAL | | | | performed at [facility], [address] | | LAB | | | | [address], | | | | | | [place] [address] | | | | + + + + + + | CO2 | 21 (L)Comment: Testing | 23 - 32 mmol/L | EXTERNAL | | | | performed at [facility], [address] | | LAB | | | | [address], | | | | | | [place] [address] | | | | + + + + + + | Anion Gap | 9Comment: Testing | 5 - 20 mmol/L | EXTERNAL | | | | performed at [facility], [address] | | LAB | | | [address], | | | | | | [place] [address] | | | | + + + + + + | Glucose, | 88Comment: Testing | 65 - 99 mg/dL | EXTERNAL | | | Fasting | performed at [facility], [address] | | LAB | | | | [address], | | | | | | [place] [address] | | | | + + + + + + | BUN | 15Comment: Testing | 8 - 25 mg/dL | EXTERNAL | | | | performed at [facility], [address] | | LAB | | | | [address], | | | | | | [place] [address] | | | | + + + + + + | Creatinine | 0.90Comment: Testing | 0.50 - 1.00 | EXTERNAL | | | | performed at [facility], [address] | mg/dL | LAB | | | | [address], | | | | | | [place] [address] | | | | + + + + + + | Calcium | 8.5Comment: Testing | 8.5 - 10.2 | EXTERNAL | | | | performed at [facility], [address] | mg/dL | LAB | | | | [address], | | | | | | [place] [address] | | | | + + + + + + | Albumin | 2.9 (L)Comment: Testing | 3.6 - 5.0 g/dL | EXTERNAL | | | | performed at [facility], [address] | | LAB | | | | [address], | | | | | | [place] [address] | | | | + + + + + + | PHOSPHORUS | 3.0Comment: Testing | 2.3 - 4.8 mg/dL | EXTERNAL | | | | performed at [facility], [address] | | LAB | | | | [address], | | | | | | [place] [address] | | | | + + + [...] [address] | | | | | | [address], | | | | | | [place] [address] | | | | + + + [...] | | | | | | [place] [address] | | | | + + + + + + | Complement | 22.6Comment: Testing | 10 - 40 mg/dL | EXTERNAL | | | Comp 4 | performed at [facility], [address] | | LAB | | | | [address], | | | | | | [place] [address] | | | | + + + [...] | | | | | [place] [address] | | | | + + + + + + | Red Blood | 3.63 (L)Comment: Testing | 3.70 - 5.10 | EXTERNAL | | | Cells | performed at [facility], [address] | M/uL | LAB | | | Counted | [address], | | | | | | [place] [address] | | | | + + + + + + | Hemoglobin | 11.2 (L)Comment: Testing | 11.3 - 15.5 | EXTERNAL | | | | performed at [facility], [address] | g/dL | LAB | | | | [address], | | | | | | [place] [address] | | | | + + + + + + | Hematocrit, | 33.3 (L)Comment: Testing | 34.0 - 46.0 % | EXTERNAL | | | POC | performed at [facility], [address] | | LAB | | | | [address], | | | | | | [place] [address] | | | | + + + + + + | MCV | 91.9Comment: Testing | 80.0 - 100.0 fl | EXTERNAL | | | | performed at [facility], [address] | | LAB | | | [address], | | | | | | [place] [address] | | | | + + + + + + | MCH | 30.8Comment: Testing | 27.0 - 34.0 pg | EXTERNAL | | | | performed at [facility], [address] | | LAB | | | | [address], | | | | | | [place] [address] | | | | + + + + + + | MCHC | 33.5Comment: Testing | 32.0 - 35.5 | EXTERNAL | | | | performed at [facility], [address] | g/dL | LAB | | | | [address], | | | | | | [place] [address] | | | | + + + + + + | RDW-CV | 45.5Comment: Testing | 37 - 53 fl | EXTERNAL | | | | performed at [facility], [address] | | LAB | | | | [address], | | | | | | [place] [address] | | | | + + + + + + | Platelet | 362Comment: Testing | 150 - 400 K/uL | EXTERNAL | | | Count | performed at [facility], [address] | | LAB | | | Plasma | [address], | | | | | | [place] [address] | | | | + + + + + + | MPV | 7.5Comment: Testing | fl | EXTERNAL | | | | performed at [facility], [address] | | LAB | | | | [address], | | | | | | [place] [address] | | | | + + + + + + | Differentia | AUTOMATEDComment: | | EXTERNAL | | | l Type | Testing performed at | | LAB | | | | [facility], [address] | | | | | | [place] | | | | | | [address] | | | | + + + + + + | % Segmented | 63.7Comment: Testing | % | EXTERNAL | | | | performed at [facility], [address] | | LAB | | | Neutrophils | [address], | | | | | | [place] [address] | | | | + + + + + + | % | 26.8Comment: Testing | % | EXTERNAL | | | Lymphocytes | performed at [facility], [address] | | LAB | | | | [address], | | | | | | [place] [address] | | | | + + + + + + | % Monocytes | 6.0Comment: Testing | % | EXTERNAL | | | | performed at [facility], [address] | | LAB | | | | [address], | | | | | | [place] [address] | | | | + + + + + + | % | 3.0Comment: Testing | % | EXTERNAL | | | Eosinophils | performed at [facility], [address] | | LAB | | | | [address], | | | | | | [place] [address] | | | | + + + + + + | % Basophils | 0.5Comment: Testing | % | EXTERNAL | | | | performed at [facility], [address] | | LAB | | | | [address], | | | | | | [place] [address] | | | | + + + + + + | Absolute | 6.4Comment: Testing | 1.9 - 7.4 K/uL | EXTERNAL | | | Segmented | performed at [facility], [address] | | LAB | | | Neutrophils | [address], | | | | | | [place] [address] | | | | + + + + + + | Absolute | 2.7Comment: Testing | 1.0 - 3.9 K/uL | EXTERNAL | | | Lymphocytes | performed at [facility], [address] | | LAB | | | [address], | | | | | | [place] [address] | | | | + + + + + + | Absolute | 0.6Comment: Testing | 0 - 0.8 K/uL | EXTERNAL | | | Monocytes | performed at [facility], [address] | | LAB | | | | [address], | | | | | | [place] [address] | | | | + + + + + + | Absolute | 0.3Comment: Testing | 0 - 0.5 K/uL | EXTERNAL | | | Eosinophils | performed at [facility], [address] | | LAB | | | [address], | | | | | | [place] [address] | | | | + + + + + + | Absolute | 0.0Comment: Testing | 0 - 0.1 K/uL | EXTERNAL | | | Basophils | performed at [facility], [address] | | LAB | | | | [address], | | | | | | [place] [address] | | | | + + + [...] | | | | | [place] [address] | | | | + + + [...] EXTERNAL | | | | performed at [facility], [address] | | LAB | | | | [address], | | | | | | [place] [address] | | | | + + + [...] EXTERNAL | | | | performed at [facility];[address] | | LAB | | | | [address];[place], [place] | | | | | | [address] | | | | + + + [...] | | | Total | performed at [facility], [address] | | LAB | | | | [address], | | | | | | [place] [address] | | | | + + + + + + | Albumin | 3.1 (L)Comment: Testing | 3.6 - 5.0 g/dL | EXTERNAL | | | | performed at [facility], [address] | | LAB | | | | [address], | | | | | | [place] [address] | | | | + + + + + + | Bilirubin | 0.3Comment: Testing | 0.1 - 1.5 mg/dL | EXTERNAL | | | Total | performed at [facility], [address] | | LAB | | | | [address], | | | | | | [place] [address] | | | | + + + + + + | Bilirubin | 0.1Comment: Testing | 0.0 - 0.3 mg/dL | EXTERNAL | | | Direct | performed at [facility], [address] | | LAB | | | | [address], | | | | | | [place] [address] | | | | + + + + + + | ALP, | 67Comment: Testing | 35 - 115 U/L | EXTERNAL | | | External | performed at [facility], [address] | | LAB | | | | [address], | | | | | | [place] [address] | | | | + + + + + + | AST | 93 (H)Comment: Testing | 10 - 45 U/L | EXTERNAL | | | | performed at [facility], [address] | | LAB | | | | [address], | | | | | | [place] [address] | | | | + + + + + + | ALT | 50Comment: Testing | 10 - 65 U/L | EXTERNAL | | | | performed at [facility], [address] | | LAB | | | | [address], | | | | | | [place] [address] | | | | + + + [...] | | | | | [place] [address] | | | | + + + + + + | K | 3.9Comment: Testing | 3.5 - 4.9 | EXTERNAL | | | | performed at [facility], [address] | mmol/L | LAB | | | | [address], | | | | | | [place] [address] | | | | + + + + + + | Cl | 114 (H)Comment: Testing | 99 - 109 mmol/L | EXTERNAL | | | | performed at [facility], [address] | | LAB | | | | [address], | | | | | | [place] [address] | | | | + + + + + + | CO2 | 21 (L)Comment: Testing | 23 - 32 mmol/L | EXTERNAL | | | | performed at [facility], [address] | | LAB | | | | [address], | | | | | | [place] [address] | | | | + + + + + + | Anion Gap | 8Comment: Testing | 5 - 20 mmol/L | EXTERNAL | | | | performed at [facility], [address] | | LAB | | | | [address], | | | | | | [place] [address] | | | | + + + + + + | Glucose, | 67Comment: Testing | 65 - 99 mg/dL | EXTERNAL | | | Fasting | performed at [facility], [address] | | LAB | | | | [address], | | | | | | [place] [address] | | | | + + + + + + | BUN | 20Comment: Testing | 8 - 25 mg/dL | EXTERNAL | | | | performed at [facility], [address] | | LAB | | | | [address], | | | | | | [place] [address] | | | | + + + + + + | Creatinine | 1.14 (H)Comment: Testing | 0.50 - 1.00 | EXTERNAL | | | | performed at [facility], [address] | mg/dL | LAB | | | | [address], | | | | | | [place] [address] | | | | + + + + + + | BUN/Creatin | 18Comment: Testing | | EXTERNAL | | | ine Ratio | performed at [facility], [address] | | LAB | | | | [address], | | | | | | [place] [address] | | | | + + + + + + | Calcium | 8.5Comment: Testing | 8.5 - 10.2 | EXTERNAL | | | | performed at [facility], [address] | mg/dL | LAB | | | | [address], | | | | | | [place] [address] | | | | + + + [...] [address], | | | | | | [place] [address] | | | | + + + [...] LAB | | | | performed at [facility], [address] | | | | | | [address], | | | | | | [place] [address] | | | | + + + [...] | | | Urine | performed at [facility], [address] | | LAB | | | Random | [address] | | | | | | [place] [address] | | | | + + + [...] + + + | BISI ESPITIA 1960 53 years XR CHEST 1 [...] Hearn Conversion - 01/18/2019 1:22 AM PDT BISI Annika ESPITIA yearsXR | | CHEST 1 [...] | + + + | BISI ESPITIA CT HEAD WO CONTRAST HISTORY: 53 [...] Hearn Conversion - 01/18/2019 1:22 AM PDT BISI SCHROEDER HEAD WO CONTRAST | | HISTORY:53 years. [...] EXTERNAL | | | | performed at [facility];[address] | | LAB | | | | [address];[place] | | | | | | [address] | | | | + + + + + + | RBC, UA | 0-2Comment: Testing | 0 - 5 /hpf | EXTERNAL | | | | performed at [facility];[address] | | LAB | | | | [address];[place] | | | | | | [address] | | | | + + + + + + | Epithelial | 6-10Comment: Testing | /lpf | EXTERNAL | | | Cells | performed at [facility];[address] | | LAB | | | | [address];[place] | | | | | | [address] | | | | + + + + + + | Bacteria, | TRACE (A)Comment: | | EXTERNAL | | | UA | Testing performed at | | LAB | | | | [facility];[address];[place] [address] | | | | + + + + + + | CASTS | 11-15Comment: | /lpf | EXTERNAL | | | | HYALINETesting performed | | LAB | | | | at [facility];[address];[place] [address] | | | | | | | [...] | | | Screen, | performed at [facility];[address] | | | | | UA, POC | [address];[place] | | | | | | [address] | | | | + + + + + + | Barbiturate | NEGATIVEComment: | | EXTERNAL | | | s Screen, | Positive cutoff for | | LAB | | | Urine | SHAUNA = 200 ng/mLTesting | | | | | | performed at [facility];[address] | | | | | | [address];[place] | | | | | | [address] | | | | + + + + + + | Benzodiazep | NEGATIVEComment: | | EXTERNAL | | | aura | Positive cutoff for | | LAB | | | Screen, | BENZO = 200 ng/mLTesting | | | | | Urine | performed at [facility];[address] | | | | | | [address];[place] | | | | | | [address] | | | | + + + + + + | Cocaine | NEGATIVEComment: | | EXTERNAL | | | | Positive cutoff for | | LAB | | | | MARYAM = 300 ng/mLTesting | | | | | | performed at [facility];[address] | | | | | | [address];[place] | | | | | | [address] | | | | + + + + + + | Methadone | NEGATIVEComment: | | EXTERNAL | | | | Positive cutoff for | | LAB | | | | MTD = 300 ng/mLTesting | | | | | | performed at [facility];[address] | | | | | | [address];[place] | | | | | | [address] | | | | + + + + + + | Opiates | NEGATIVEComment: | | EXTERNAL | | | | Positive cutoff for | | LAB | | | | OPI = 300 ng/mLTesting | | | | | | performed at [facility];[address] | | | | | | [address];[place] | | | | | | [address] | | | | + + + + + + | PCP | NEGATIVEComment: | | EXTERNAL | | | | Positive cutoff for PCP | | LAB | | | | = 25 ng/mLTesting | | | | | | performed at [facility];[address] | | | | | | [address];[place] | | | | | | [address] | | | | + + + [...] | | | | | performed at [facility];[address] | | | | | | [address];[place] | | | | | | [address] | | | | + + + [...] EXTERNAL | | | | performed at [facility] | | LAB | | | | [address];[place], [place] | | | | | | [address] | | | | + + + [...] EXTERNAL | | | | performed at [facility];[address] | | LAB | | | | [address];[place] | | | | | | [address] | | | | + + + + + -+ | Red Blood | 3.96Comment: Testing | 3.70 - 5.10 | EXTERNAL | | | Cells | performed at [facility];[address] | M/uL | LAB | | | Counted | [address];[place] | | | | | | [address] | | | | + + + + + -+ | Hemoglobin | 11.9Comment: Testing | 11.3 - 15.5 | EXTERNAL | | | | performed at [facility];[address] | g/dL | LAB | | | | [address];[place] | | | | | | [address] | | | | + + + + + -+ | Hematocrit, | 35.3Comment: Testing | 34.0 - 46.0 % | EXTERNAL | | | POC | performed at [facility];[address] | | LAB | | | | [address];[place] | | | | | | [address] | | | | + + + + + -+ | MCV | 89.0Comment: Testing | 80.0 - 100.0 fl | EXTERNAL | | | | performed at [facility];[address] | | LAB | | | | [address];[place] | | | | | | [address] | | | | + + + + + -+ | MCH | 30.1Comment: Testing | 27.0 - 34.0 pg | EXTERNAL | | | | performed at [facility];[address] | | LAB | | | | [address];[place] | | | | | | [address] | | | | + + + + + -+ | MCHC | 33.8Comment: Testing | 32.0 - 35.5 | EXTERNAL | | | | performed at [facility];[address] | g/dL | LAB | | | | [address];[place] | | | | | | [address] | | | | + + + + + -+ | RDW-CV | 45.5Comment: Testing | 37 - 53 fl | EXTERNAL | | | | performed at [facility];[address] | | LAB | | | | [address];[place] | | | | | | [address] | | | | + + + + + -+ | Platelet | 443 (H)Comment: Testing | 150 - 400 K/uL | EXTERNAL | | | Count | performed at [facility];[address] | | LAB | | | Plasma | [address];[place] | | | | | | [address] | | | | + + + + + -+ | MPV | 7.3Comment: Testing | fl | EXTERNAL | | | | performed at [facility];[address] | | LAB | | | | [address];[place] | | | | | | [address] | | | | + + + + + -+ | Differentia | AUTOMATEDComment: | | EXTERNAL | | | l Type | Testing performed at | | LAB | | | | [facility];[address];[place] [address] | | | | + + + + + -+ | % Segmented | 60.4Comment: Testing | % | EXTERNAL | | | | performed at [facility];[address] | | LAB | | | Neutrophils | [address];[place] | | | | | | [address] | | | | + + + + + -+ | % | 26.9Comment: Testing | % | EXTERNAL | | | Lymphocytes | performed at [facility];[address] | | LAB | | | | [address];[place] | | | | | | [address] | | | | + + + + + -+ | % Monocytes | 8.0Comment: Testing | % | EXTERNAL | | | | performed at [facility];[address] | | LAB | | | | [address];[place] | | | | | | [address] | | | | + + + + + -+ | % | 4.0Comment: Testing | % | EXTERNAL | | | Eosinophils | performed at [facility];[address] | | LAB | | | | [address];[place] | | | | | | [address] | | | | + + + + + -+ | % Basophils | 0.7Comment: Testing | % | EXTERNAL | | | | performed at [facility];[address] | | LAB | | | | [address];[place] | | | | | | [address] | | | | + + + + + -+ | Absolute | 5.4Comment: Testing | 1.9 - 7.4 K/uL | EXTERNAL | | | Segmented | performed at [facility];[address] | | LAB | | | Neutrophils | [address];[place] | | | | | | [address] | | | | + + + + + -+ | Absolute | 2.4Comment: Testing | 1.0 - 3.9 K/uL | EXTERNAL | | | Lymphocytes | performed at [facility];[address] | | LAB | | | | [address];[place] | | | | | | [address] | | | | + + + + + -+ | Absolute | 0.7Comment: Testing | 0 - 0.8 K/uL | EXTERNAL | | | Monocytes | performed at [facility];[address] | | LAB | | | | [address];[place] | | | | | | [address] | | | | + + + + + -+ | Absolute | 0.4Comment: Testing | 0 - 0.5 K/uL | EXTERNAL | | | Eosinophils | performed at [facility];[address] | | LAB | | | | [address];[place] | | | | | | [address] | | | | + + + + + -+ | Absolute | 0.1Comment: Testing | 0 - 0.1 K/uL | EXTERNAL | | | Basophils | performed at [facility];[address] | | LAB | | | | [address];[place] | | | | | | [address] | | | | + + + + + -+ | Na | 141Comment: Testing | 135 - 143 | EXTERNAL | | | | performed at [facility];[address] | mmol/L | LAB | | | | [address];[place] | | | | | | [address] | | | | + + + + + -+ | K | 4.5Comment: Testing | 3.5 - 4.9 | EXTERNAL | | | | performed at [facility];[address] | mmol/L | LAB | | | | [address];[place] | | | | | | [address] | | | | + + + + + -+ | Cl | 110 (H)Comment: Testing | 99 - 109 mmol/L | EXTERNAL | | | | performed at [facility];[address] | | LAB | | | | [address];[place] | | | | | | [address] | | | | + + + + + -+ | CO2 | 20 (L)Comment: Testing | 23 - 32 mmol/L | EXTERNAL | | | | performed at [facility];[address] | | LAB | | | | [address];[place] | | | | | | [address] | | | | + + + + + -+ | Anion Gap | 15Comment: Testing | 5 - 20 mmol/L | EXTERNAL | | | | performed at [facility];[address] | | LAB | | | | [address];[place] | | | | | | [address] | | | | + + + + + -+ | Glucose, | 94Comment: Testing | 65 - 99 mg/dL | EXTERNAL | | | Fasting | performed at [facility];[address] | | LAB | | | | [address];[place] | | | | | | [address] | | | | + + + + + -+ | BUN | 30 (H)Comment: Testing | 8 - 25 mg/dL | EXTERNAL | | | | performed at [facility];[address] | | LAB | | | | [address];[place] | | | | | | [address] | | | | + + + + + -+ | Creatinine | 2.26 (H)Comment: Testing | 0.50 - 1.00 | EXTERNAL | | | | performed at [facility];[address] | mg/dL | LAB | | | | [address];[place] | | | | | | [address] | | | | + + + + + -+ | BUN/Creatin | 14Comment: Testing | | EXTERNAL | | | ine Ratio | performed at [facility];[address] | | LAB | | | | [address];[place] | | | | | | [address] | | | | + + + + + -+ | Calcium | 9.5Comment: Testing | 8.5 - 10.2 | EXTERNAL | | | | performed at [facility];[address] | mg/dL | LAB | | | | [address];[place] | | | | | | [address] | | | | + + + + + -+ | Protein, | 8.2Comment: Testing | 6.3 - 8.2 g/dL | EXTERNAL | | | Total | performed at [facility];[address] | | LAB | | | | [address];[place] | | | | | | [address] | | | | + + + + + -+ | Albumin | 3.3 (L)Comment: Testing | 3.6 - 5.0 g/dL | EXTERNAL | | | | performed at [facility];[address] | | LAB | | | | [address];[place] | | | | | | [address] | | | | + + + + + -+ | Globulin | 4.9Comment: Testing | 1.3 - 4.9 g/dL | EXTERNAL | | | | performed at [facility];[address] | | LAB | | | | [address];[place] | | | | | | [address] | | | | + + + + + -+ | A/G Ratio | 0.7 (L)Comment: Testing | 1.0 - 2.4 | EXTERNAL | | | | performed at [facility];[address] | | LAB | | | | [address];[place] | | | | | | [address] | | | | + + + + + -+ | Bilirubin | 0.2Comment: Testing | 0.1 - 1.5 mg/dL | EXTERNAL | | | Total | performed at [facility];[address] | | LAB | | | | [address];[place] | | | | | | [address] | | | | + + + + + -+ | ALP, | 108Comment: Testing | 35 - 115 U/L | EXTERNAL | | | External | performed at [facility];[address] | | LAB | | | | [address];[place] | | | | | | [address] | | | | + + + + + -+ | AST | 153 (H)Comment: Testing | 10 - 45 U/L | EXTERNAL | | | | performed at [facility];[address] | | LAB | | | | [address];[place] | | | | | | [address] | | | | + + + + + -+ | ALT | 74 (H)Comment: Testing | 10 - 65 U/L | EXTERNAL | | | | performed at [facility];[address] | | LAB | | | | [address];[place] | | | | | | [address] | | | | + + + [...] | | | | | | at [facility];[address];[place] [address] | | | | + + + + + -+ | CK, Total | 3032 (H)Comment: Testing | 30 - 240 U/L | EXTERNAL | | | | performed at [facility];[address] | | LAB | | | | [address];[place] | | | | | | [address] | | | | + + + [...] | | | | | performed at [facility];[address] | | | | | | [address];[place] | | | | | | [address] | | | | + + + + + -+ | aPTT, | 23Comment: Testing | 23 - 32 seconds | EXTERNAL | | | Patient | performed at [facility];[address] | | LAB | | | | [address];[place] | | | | | | [address] | | | | + + + + + -+ | CK-MB | 53.7 (H)Comment: Testing | 0.5 - 3.6 ng/mL | EXTERNAL | | | | performed at [facility];[address] | | LAB | | | | [address];[place], [place] | | | | | | [address] | | | | + + + [...] EXTERNAL | | | | performed at [facility];[address] | | LAB | | | | [address] [facility];[place], [place] | | | | | | [address] | | | | + + + [...] EXTERNAL | | | | performed at [facility];888 | uIU/mL | LAB | | | | [address];[place], [place] | | | | | | [address] | | | | + + + [...] | | | (REF) | performed at [facility];[address] | | LAB | | | | [address];[place], [place] | | | | | | [address] | | | | + + + [...] EXTERNAL | | | | performed at [facility];[address] | | LAB | | | | [address];[place], [place] | | | | | | [address] | | | | + + + [...] | | | Alcohol | performed at [facility];88 | | LAB | | | | [address];[place], [place] | | | | | | [address] | | | | + + + [...] (500), | | | | | | videotape editor JERAMY TRAORE | | | | | | (4) on 09/19/2013 2:21:45 | | | | | | PM | | | | + + + + + + + + | Specimen | + + | | + + + + + | Narrative | Performed At | + + + | Historically converted procedure from [facility] environment | EXTERNAL LAB | + + [...]
--- OUTSIDE RECORDS SUMMARY | ~2019-12-01 | XMS | Encounter Summary ---
Demographics + + + | Address | [address] | | | [place] [address] | + + + | Home Phone [...] | Author | [facility] | | | and [place] | + + + | Organization | [facility] | | [...] Team Providers + +------+ + | Care Envelope Maker Name | Role | Phone | [...] [phone] | | | | | [place], [place] | [address] | | | | | [address] | [place] [address] | | | | | [phone] | [phone] | | | | | | | [...] B | | | | | | [place] [address] | | | | | | [phone] | | | | | | | [...] + + + + | HCV | [id number] (A)Comment: | [iU]/mL | EXTERNAL | | [...]
--- OUTSIDE RECORDS SUMMARY | ~2019-12-01 | XMS | Encounter Summary ---
Demographics + + + | Address | [address] | | | [place] [address] | + + + | Home Phone [...] | Author | [facility] | | | and [place] | + + + | Organization | [facility] | | [...] Team Providers + +------+ + | Care Box Car Bracer Name | Role | Phone | + +------+ + | Hayden Acevedo MD | PCP | | + +------+ + Encounter Details +--------+ + + + + | Date | Type | Department | Care Team | Description | +--------+ + + + + | 10/10/ | Emergency | [facility] | Mikayla Stahl, | COPD exacerbation | | 2013 | | MEDICAL CENTER | [facility] [address] | ([facility]); Arthritis; | | | | EMERGENCY CENTER | [place] [address] | Ankle pain, right; | | | | [address] | [phone] | Tobacco abuse | | | | [place], [place] | | | | | | [address] | | | | | | [phone] | | | +--------+ + + + [...] 0052 Date of Service: 10/10/131942 Status: Signed Bathhouse Keeper: Catie Stahl MD (Physician) [facility] Department of Emergency Medicine History of Present [...] 06/22/13 06/22/14 Yes Navneet Stewart, ergocalciferol (DRISDOL) 57257 UNITS capsule Take 1 capsule by mouth [...] (two) times daily. 08/25/13 08/25/14 Yes Rosemary Preea MD gabapentin (NEURONTIN) 300 MG capsule Take [...] Info AN[facility]AG [place] In [address] [facility] [address] [facility] Emergency Department If symptoms worsen [address] [phone] Discharge Medications: New Prescriptions BENZONATATE (TESSALON) 100 [...] by me. Jadyn robertson with its contents. MD Catie Chopra MD 10/12/13 0052 documented in this e ncounter Plan of Treatment +--------+---------+ + + + | Date | Type | Specialty | Care Team | Description | +--------+---------+ + + + | 12/11/ | Office | Neurosurgery | Veto Hernandes, | | | 2019 | Visit | | EDUCATIONAL INTERPRETER [address] | | | | | | [address] [facility] [address] | | | | | | [place] [address] | | | | | | [phone] | | | | | | | [...]
[~2019-12-01 10:15] MED LIST changes: +KEFLEX500 MG PO
--- OUTSIDE RECORDS SUMMARY | 2019-12-01 10:18 | XMS ---
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 Care History Medical/Surgical 09/23/2018 [facility], \T\middot;\T\nbsp; PLEASE REFER PATIENT [facility] FOR NON EMERGENT MEDICAL NEEDS. \T\middot;\T\nbsp; [facility] CAN SEE PATIENTS SAME DAY FOR APTS IF PATIENT CALLS FIRST THING IN THE MORNING. E.D. VISIT COUNT (12 MO.) 5 CASANDRA Munoz TOTAL 5 NOTE: Visits indicate total known visits. ED/UCC VISIT TRACKING (12 MO.) 12/01/2019 10:15 [facility] [place] TYPE: Emergency COMPLAINT: - BUG BITES 11/09/2019 21:38 [facility] [place] TYPE: Emergency COMPLAINT: - SKIN PROBLEM DIAGNOSES: - Essential (primary) hypertension - Rash and other nonspecific skin eruption - Chronic obstructive pulmonary disease, unspecified - Other terminal clerk (current) drug therapy - Hyperlipidemia, unspecified - Hypothyroidism, unspecified 10/27/2019 15:53 [facility] [place] TYPE: Emergency COMPLAINT: - POSS INFECTION, SORES ON HANDS DIAGNOSES: - Chronic obstructive pulmonary disease, unspecified - Hyperlipidemia, unspecified - Disorder of the skin and subcutaneous tissue, unspecified - Nicotine dependence, unspecified, uncomplicated - Rash and other nonspecific skin eruption - Other terminal clerk (current) drug therapy - Essential (primary) hypertension - Hypothyroidism, unspecified 08/22/2019 18:07 [facility]AN[facility] [place] TYPE: Emergency COMPLAINT: - FLANK PAIN, URINE PROBLEM, FLU SX DIAGNOSES: - Nicotine dependence, unspecified, uncomplicated - Hypothyroidism, unspecified - Essential (primary) hypertension - Cough - Chronic obstructive pulmonary disease with (acute) exacerbati - Other terminal clerk (current) drug therapy - Hyperlipidemia, unspecified 02/10/2019 13:48 [facility]ANDR[facility] [place] TYPE: Emergency COMPLAINT: - SKIN IRRITATIONS, MSED TO CLINIC DIAGNOSES: - Disorder of the skin and subcutaneous tissue, unspecified INPATIENT VISIT TRACKING (12 MO.) No inpatient visits to display in this time frame [email or web address]
== END 2019-12-01 19:46 | disposition home or self-care (01) ==
LOC: ED 10:15
DX: F22 Delusional disorders (principal); J44.9 Chronic obstructive pulmonary disease, unspecified; I10 Essential (primary) hypertension; E78.5 Hyperlipidemia, unspecified; E03.9 Hypothyroidism, unspecified; Z79.899 Other long term (current) drug therapy
CPT/HCPCS: 99283; Q0163

== ENCOUNTER 2020-02-12 01:16 | Emergency (ER) | payer OTHER ==
[~2020-02-12] VITALS: Ht 170.2 cm; Wt 104.3 kg
--- OUTSIDE RECORDS SUMMARY | ~2020-02-12 | XMS | Encounter Summary ---
Demographics + + + | Address | [address] | | | [place] [address] | + + + | Home Phone | | + + + | Preferred Language | Unknown | + + + | Marital Status | Single | + + + | Taoist Affiliation | 1009 | + + + | Race | White | + + + | Ethnic Group | Not or | + + + Author + + + | Author | [facility] | | | and [place] | + + + | Organization | [facility] | | | and [place] | + + + | Address | [...] Team Providers + +------+ + | Care Bag Machine Operator Helper Name | Role | Phone | + +------+ + | Hayden Acevedo MD | PCP | | + +------+ + Encounter Details +--------+ + + + + | Date | Type | Department | Care Team | Description | +--------+ + + + + | 12/24/ | Hospital | [facility] | Misha Todd, | Mixed incontinence | | 2014 - | Encounter | [facility] [address] | [address] | urge and stress | | | | [address] | [address] [place], | (male)(female); | | 12/26/ | | [place], [place] | [place] [address] | Hypothyroid; HTN | | 2013 | | [id number] | [phone] | (hypertension); | | | | [phone] | | Anxiety; | | | | | | Dyspareunia; | | | | | | Cystocele, midline; | | | | | | Hypertonicity of | | | | | | bladder; Rectocele; | | | | | | Mixed stress and | | | | | | urge urinary | | | | | | incontinence; OAB | | | | | | (overactive | | | | | | bladder); Mood | | | | | | disorder (HCC); | | | | | | Depression | +--------+ + + + + Social [...] + + documented as of this encounter Discharge Summaries Misha Todd MD - 12/26/2013 10:43 AM PDTFormatting of this note might be different fro m the original. Discharge Summaries by Misha Todd MD at 12/26/13 1043 Author: Misha Todd MD Service: Obstetrics/Gynecology Author Type: Physician Filed: 12/26/13 1054 Date of Service: 12/26/13 1043 Status: Signed Senior Accounting Manager: Misha Todd MD (Physician) [facility] Service: Obstetrics & Gynecology Discharge Summary Date of Admission: 12/24/2013 Date of Discharge: 12/26/2013 Discharge Provider: MISHA TODD MD Treatment Team: Admitting Provider: Misha Todd MD Discharge Diagnoses: Active Problems: Bipolar affective Dyspareunia Rectocele OAB (overactive bladder) Back ache Resolved Problems: * No resolved hospital problems. * Final Diagnoses: POP Procedures: Procedure(s) with comments: CYSTOCELE AND RECTOCELE (A & P REPAIR) - Anterior portion was not completed BLADDER SUSPENSION - TVT - TVT exact CYSTOSCOPY - HYDRODISTENTION OF BLADDER - 70 degree scope. Indigo Emilia dye available to Anesthesiologist ENTEROCELE RPR Significant Diagnostic Studies: Labs: CBC, BMP BRIEF HISTORY OF PRESENTATION: Bisi Becker is a 53 y.o. female who underwent the above procedures. HOSPITAL COURSE: Uneventful post-operative course other than urinary retention on postop day #1 than re solved by day #2. At the time of discharge patient was ambulating well, eating a regular di et, passing gas and her post-operative pain was adequately treated with oral pain medication s. Past Medical History Diagnosis Date Anxiety Hypertension Thyroid disease Depression Hepatitis C COPD (chronic obstructive pulmonary disease) Cancer skin cancer Chronic kidney disease September 2013, kidney failure Other chronic pain lower back H pylori ulcer history of Joint pain Neuromuscular disorder sciatica Spinal stenosis of lumbar region Gout Osteoarthritis Sleep apnea has machine, hasn't tried it Unspecified visual disturbance Past Surgical History Procedure Date Hysterectomy Cholecystectomy Appendectomy Bladder surgery [facility] 07/14/2013 [facility] 08/06/2013 Cataract extraction Breast surgery lumpectomy Colonoscopy section Eye surgery Cystocele and rectocele repair 12/24/2013 Procedure: CYSTOCELE AND RECTOCELE (A & P REPAIR); Surgeon: Misha Todd MD; Locatio n: [facility]; Service: CENTRIFUGAL CASTING MACHINE TENDER; Laterality: N/A; Anterior portion was not completed Bladder suspension 12/24/2013 Procedure: BLADDER SUSPENSION - TVT; Surgeon: Misha Todd MD; Location: [facility]; Service: CENTRIFUGAL CASTING MACHINE TENDER; Laterality: N/A; TVT exact Cystoplasty 12/24/2013 Procedure: CYSTOSCOPY - HYDRODISTENTION OF BLADDER; Surgeon: Misha Todd MD; Locati on: [facility]; Service: CENTRIFUGAL CASTING MACHINE TENDER; Laterality: N/A; 70 degree scope. Indigo Emilia dye a vailable to Anesthesiologist Enterocele repair 12/24/2013 Procedure: ENTEROCELE RPR; Surgeon: Misha Todd MD; Location: [facility]; Servic e: CENTRIFUGAL CASTING MACHINE TENDER; Laterality: N/A; No Known Allergies Prescriptions prior to admission Medication Sig Dispense Refill albuterol (PROVENTIL) (2.5 MG/3ML) 0.083% nebulizer solution Take 6 mLs by nebulization every 6 (six) hours as needed for Wheezing. 20 vial 1 baclofen (LIORESAL) 10 MG tablet take 1-2 tablets by mouth every 8 hours if needed for muscle spasm and TIGHTNESS 75 tablet 0 benzonatate (TESSALON) 100 MG capsule Take 1 capsule by mouth 3 (three) times daily as needed for Cough. 30 capsule 2 estradiol (ESTRACE VAGINAL) 0.1 MG/GM vaginal cream Place one gram vaginally qhs x 2 we eks, then begin using one gram vaginally three times weekly at night. 42.5 g 12 gabapentin (NEURONTIN) 100 MG capsule Take 1 capsule by mouth 2 (two) times daily. 60 capsule 1 gabapentin (NEURONTIN) 300 MG capsule Take 2 capsules by mouth nightly. 60 capsule 1 hydrALAZINE (APRESOLINE) 25 MG tablet Take 1-2 tablets PO every 8 hours as needed for a nxiety 90 tablet 11 ipratropium-albuterol (COMBIVENT RESPIMAT) 20-100 MCG/ACT inhaler Inhale 2 puffs into t he lungs every 6 (six) hours as needed for Wheezing. 2 each 11 levothyroxine (SYNTHROID, LEVOTHROID) 25 MCG tablet Take 1 tablet by mouth every mornin g before breakfast. 90 tablet 3 lisinopril (PRINIVIL,ZESTRIL) 10 MG tablet Take 1 tablet by mouth daily. 90 tablet 3 loratadine (CLARITIN) 10 MG tablet Take 1 tablet by mouth daily. 90 tablet 3 LORazepam (ATIVAN) 1 MG tablet Take 1 tablet by mouth every 6 (six) hours as needed for Anxiety. 50 tablet 0 methocarbamol (ROBAXIN) 500 MG tablet take 1 tablet by mouth four times a day if needed for MUSCLE SPASM,TIGHTNESS AND PAIN 120 tablet 1 OLANZapine (ZYPREXA) 10 MG tablet Take 1 tablet by mouth nightly. 90 tablet 3 omeprazole (PRILOSEC) 20 MG capsule Take 20 mg by mouth every morning before breakfast. [DISCONTINUED] bisacodyl (BISACODYL) 5 MG EC tablet Take 3 tablets at 1000 AM and 0200 PM day before procedure with 16 oz. water. 6 mg 0 [DISCONTINUED] sodium phosphate (FLEET) 7-19 GM/118ML enema Use before bed and AM of pr ocedure. 2 enema 0 ergocalciferol (DRISDOL) 73606 UNITS capsule Take 1 capsule by mouth once a week. 12 c apsule 0 FLUoxetine (PROZAC) 40 MG capsule Take 1 capsule by mouth daily. 90 capsule 3 hydrOXYzine (ATARAX) 25 MG tablet Take 50 mg by mouth 3 (three) times daily as needed. oxyCODONE-acetaminophen (PERCOCET) 10-325 MG per tablet Take 1 tablet by mouth every 12 (twelve) hours as needed for Pain. 30 tablet 0 solifenacin (VESICARE) 10 MG tablet Take 1 tablet by mouth daily. 30 tablet 3 Spacer/Aero-Holding Chambers (AEROCHAMBER MV) inhaler For use with inhalers 1 each 0 DISCHARGE EXAM Vital Signs: BP 108/74 | Pulse 70 | Temp 98.5 F (36.9 C) (Oral) | Resp 16 | Ht 1.676 m (5' 6") | Wt 101 kg (222 lb 10.6 oz) | BMI 35.96 kg/m2 | SpO2 95% Temp: [97.5 F (36.4 C)-98.5 F (36.9 C)] 98.5 F (36.9 C) (12/26 736) BP: (105-125)/(64-76) 108/74 mmHg (12/26 736) Heart Rate: [61-74] 70 (12/26 736) Resp: [16-18] 16 (12/26 736) SpO2: [95 %-97 %] 95 % (12/26 736) Physical Exam Nursing note and vitals reviewed. Constitutional: She is oriented to person, place, and time. She appears well-developed and well-nourished. HENT: Head: Normocephalic and atraumatic. Nose: Nose normal. Eyes: Conjunctivae normal and EOM are normal. Neck: Normal range of motion. Cardiovascular: Normal rate. Pulmonary/Chest: Effort normal. Abdominal: Soft. She exhibits no distension. There is no tenderness. Genitourinary: Pelvic examination deferred until patient returns to the office. Musculoskeletal: Normal range of motion. Neurological: She is alert and oriented to person, place, and time. She has normal reflexes . Skin: Skin is warm and dry. Psychiatric: She has a normal mood and affect. Her behavior is normal. Thought content norm al. DATA CBC: Lab Results Component Value Date WBC 10.4 12/25/2013 RBC 3.87 12/25/2013 HGB 11.8 12/25/2013 HCT 35.8 12/25/2013 MCV 92.5 12/25/2013 MCH 30.5 12/25/2013 MCHC 32.9 12/25/2013 RDW 49.9 12/25/2013 PLT 208 12/25/2013 MPV 8.4 12/25/2013 DIFFTYPE AUTOMATED 12/25/2013 BMP: Lab Results Component Value Date NA 136 12/25/2013 K 4.5 12/25/2013 CL 107 12/25/2013 CO2 26 12/25/2013 ANIONGAP 8 12/25/2013 GLUF 137* 12/25/2013 BUN 16 12/25/2013 CREATININE 0.75 12/25/2013 BCR 21 12/25/2013 CA 9.1 12/25/2013 EGFR >60 12/25/2013 PLAN Disposition: Home Condition: Stable Code Status: Full Code No discharge procedures on file. Follow up: Misha Todd MD [address] [address] In 1 month Medication List As of 12/26/2013 10:43 AM START taking these medications docusate sodium 250 MG capsule QTY: 20 capsule Refills: 0 Commonly known as: COLACE Take 1 capsule by mouth daily. ibuprofen 800 MG tablet QTY: 30 tablet Refills: 0 Commonly known as: MOTRIN Take 1 tablet by mouth every 8 (eight) hours as needed for Pain. * oxyCODONE-acetaminophen 5-325 MG per tablet QTY: 40 tablet Refills: 0 Commonly known as: PERCOCET Take 1-2 tablets by mouth every 4 (four) hours as needed for Pain. * Notice: This list has 1 medication(s) that are the same as other medications prescribed for you. Read the directions carefully, and ask your doctor or other care provider to review them with you. CONTINUE taking these medications AEROCHAMBER MV inhaler QTY: 1 each Refills: 0 For use with inhalers albuterol (2.5 MG/3ML) 0.083% nebulizer solution QTY: 20 vial Refills: 1 Commonly known as: PROVENTIL Take 6 mLs by nebulization every 6 (six) hours as needed for Wheezing. baclofen 10 MG tablet QTY: 75 tablet Refills: 0 Commonly known as: LIORESAL take 1-2 tablets by mouth every 8 hours if needed for muscle spasm and TIGHTNESS benzonatate 100 MG capsule QTY: 30 capsule Refills: 2 Commonly known as: TESSALON Take 1 capsule by mouth 3 (three) times daily as needed for Cough. estradiol 0.1 MG/GM vaginal cream QTY: 42.5 g Refills: 12 For diagnoses: Loss Of Bladder Control, Painful Sexual [place], Fallen Bladder, Saggin g Of Female Genital Organs Commonly known as: ESTRACE Place one gram vaginally qhs x 2 weeks, then begin using one gram vaginally three times we ekly at night. FLUoxetine 40 MG capsule QTY: 90 capsule Refills: 3 For diagnoses: Depression Commonly known as: PROzac Take 1 capsule by mouth daily. * gabapentin 300 MG capsule QTY: 60 capsule Refills: 1 Commonly known as: NEURONTIN Take 2 capsules by mouth nightly. * gabapentin 100 MG capsule QTY: 60 capsule Refills: 1 Commonly known as: NEURONTIN Take 1 capsule by mouth 2 (two) times daily. hydrALAZINE 25 MG tablet QTY: 90 tablet Refills: 11 For diagnoses: Anxiety Problem Commonly known as: APRESOLINE Take 1-2 tablets PO every 8 hours as needed for anxiety hydrOXYzine 25 MG tablet Refills: 0 Commonly known as: ATARAX ipratropium-albuterol 20-100 MCG/ACT inhaler QTY: 2 each Refills: 11 Commonly known as: COMBIVENT Inhale 2 puffs into the lungs every 6 (six) hours as needed for Wheezing. levothyroxine 25 MCG tablet QTY: 90 tablet Refills: 3 For diagnoses: Underactive Thyroid Commonly known as: SYNTHROID Take 1 tablet by mouth every morning before breakfast. lisinopril 10 MG tablet QTY: 90 tablet Refills: 3 For diagnoses: High Blood Pressure Commonly known as: ZESTRIL Take 1 tablet by mouth daily. loratadine 10 MG tablet QTY: 90 tablet Refills: 3 Commonly known as: CLARITIN Take 1 tablet by mouth daily. LORazepam 1 MG tablet QTY: 50 tablet Refills: 0 For diagnoses: Anxiety Problem Commonly known as: ATIVAN Take 1 tablet by mouth every 6 (six) hours as needed for Anxiety. methocarbamol 500 MG tablet QTY: 120 tablet Refills: 1 Commonly known as: ROBAXIN take 1 tablet by mouth four times a day if needed for MUSCLE SPASM,TIGHTNESS AND PAIN OLANZapine 10 MG tablet QTY: 90 tablet Refills: 3 For diagnoses: Mood Problem Commonly known as: ZyPREXA Take 1 tablet by mouth nightly. omeprazole 20 MG capsule Refills: 0 Commonly known as: PRILOSEC * oxyCODONE-acetaminophen 10-325 MG per tablet QTY: 30 tablet Refills: 0 Doctor's comments: To fill on or after 12/20/13. Commonly known as: PERCOCET Take 1 tablet by mouth every 12 (twelve) hours as needed for Pain. solifenacin 10 MG tablet QTY: 30 tablet Refills: 3 For diagnoses: Loss Of Bladder Control, Overactive Bladder Commonly known as: VESICARE Take 1 tablet by mouth daily. * Notice: This list has 3 medication(s) that are the same as other medications prescribed for you. Read the directions carefully, and ask your doctor or other care provider to review them with you. Where to get your medications These are the prescriptions that you need to greens picker. You may get these medications from any pharmacy. docusate sodium 250 MG capsule ibuprofen 800 MG tablet oxyCODONE-acetaminophen 5-325 MG per tablet Discharge took 30inutes, to include final examination, discussion of admission, and prepara tion of prescriptions, instructions for on-going care, follow-up and documentation of discha rge summary. MISHA TODD MD 12/26/2013 documented in this e ncounter Medications at Time of Discharge + + + +---------+ + + | Medication | Sig | Dispensed | Refills | Start | End Date | | | | | | Date | | + + + +---------+ + + | | Inhale 2 puffs into | | 0 | 12/23/19 | | | albuterol-ipratropiu | the lungs every 6 | | | 14 | | | m (COMBIVENT | (six) hours as | | | | | | RESPIMAT) 100-20 | needed for Wheezing. | | | | | | mcg/puff inhaler | | | | | | + + + +---------+ + + | FLUoxetine | Take 1 capsule by | | 0 | 06/25/19 | | | (PROZAC) 40 MG | mouth daily. | | | 14 | | | capsule | | | | | | + + + +---------+ + + | LORazepam (ATIVAN) | Take 1 tablet by | | 0 | 12/13/19 | | | 1 mg tablet | mouth every 6 (six) | | | 14 | | | | hours as needed for | | | | | | | Anxiety. | | | | | + + + +---------+ + + documented as of this encounter Progress Notes Conversion Transaction, Provider Unknown - 12/26/2013 11:25 AM PDTFormatting of this note m ight be different from the original. Nurse Progress Note by Sarah Birch RN at 12/26/131124 Author: Sarah Birch RN Service: (none) Author Type: Registered Nurse Filed: 12/26/131124 Date of Service: 12/26/131124 Status: Signed Senior Accounting Manager: Sarah Birch RN (Registered Nurse) Discharge instructions given and explained to patient. Medications discussed with no questi ons. Instructed to contact MD for any signs or symptoms of infection or any problems associa kayy with hospitalization. SARAH BIRCH RN 12/26/2013 11:25 AM onver david Transaction, Provider Unknown - 12/25/2013 11:10 AM PDT Therapy Progress Note by JULIO Ocampo at 12/25/13 1110 Author: JULIO Ocampo Service: (none) Author Type: Massage Therapist Filed: 12/25/13 1110 Date of Service: 12/25/13 111 Status: Signed Senior Accounting Manager: JULIO Ocampo (Massage Therapist) 12/25/13 1100 MT Last Visit MT Received On 12/25/13 MT Therapy Visit Refused onver david Transaction, Provider Unknown - 12/25/2013 8:09 AM PDT Case Management by OG Mae at 12/25/13 0809 Author: OG Mae Service: (none) Author Type: Drop Wire Stringer Filed: 12/25/13 0810 Date of Service: 12/25/13 0809 Status: Signed Senior Accounting Manager: OG Mae (Drop Wire Stringer) CM met with pt for discharge planning. Pt is 53 years old and lives with her who wi ll assist her at home. Pt does not need Durable Medical Equipment at home. Pt is able to per form daily living activities including personal hygiene, grooming, dressing, feeding, ambula tion and bowel and bladder control. Pt currently has no resource concerns. CM will continue to follow as needed. Discharge Plan: Home. Diego ESPINOZA 12/25/13 0808 Discharge Planning Evaluation Admitting Diagnosis CYSTOCELE AND RECTOCELE (A & P REPAIR) Readmission No Living Arrangements Spouse/significant other Support Systems Spouse/significant other Type of Residence Private residence House type Mobile home Steps to enter 2 Bathrooms on 1st Floor 1-Full Caregiver after Discharge Yes Relationship to Patient significant other Mental Status Oriented Anticipated Discharge Plan Post Acute Care Needs None at this time Resources Financial concerns No Transportation issues No Patient/Family concerns No Prescription Plan Yes Anticipated Disposition Facility Type (Home) Met with: Patient and discussed discharge planning, Pt is a 53 y.o., female Patient's PCP is: GER FULTON Patient's insurance: [employer] Coverage concerns: None Medication coverage/concerns: None Community resources utilized / needed: None Assistance in transportation: Not needed. Identification of any specific education / training: None Barriers to Discharge / Alternative housing needed: None Anticipated DCP: Home docume nted in this encounter H&P Notes Misha Todd MD - 12/24/2013 12:52 PM PDTFormatting of this note might be different fro m the original. Interval H&P Note by Misha Todd MD at 12/24/13 1252 Author: Misha Todd MD Service: Obstetrics/Gynecology Author Type: Physician Filed: 12/24/13 1252 Date of Service: 12/24/13 125 Status: Signed Senior Accounting Manager: Misha Todd MD (Physician) [facility] Service: Obstetrics & Gynecology Pre-Operative History & Physical Interval Update There have been no significant clinical changes since the completion of the above H&P. MISHA TODD MD 12/24/2013 *CORE MEASURES REMINDER: If the patient has a known or suspected infection prior to surger y, please add diagnosis to the problem list (consider: Infection 136.9). Source Note Author: Misha Todd MD Service: (none) Author Type: Physician Filed: 12/11/13 1608 Date of Service: 12/11/13 1518 Status: Signed Senior Accounting Manager: Misha Todd MD (Physician) [facility] Service: Obstetrics & Gynecology Pre-Operative History & Physical DIAGNOSIS: 1. Mixed incontinence urge and stress 2. Dyspareunia 3. Cystocele, midline 4. Rectocele 5. Hypertonicity of bladder INDICATION: Please see above PROCEDURE: 1. Anterior Colporrhaphy 2. Posterior Colporrhaphy 3. TVT bladder sling 4. Cystoscopy with hydrodistension 5. Possible enterocele repair. CHIEF COMPLAINT: 1. Mixed incontinence urge and stress 2. Dyspareunia 3. Cystocele,midline 4. Rectocele 5. Hypertonicity of bladder History Obtained From: patient HISTORY OF PRESENT ILLNESS The patient is a 53 y.o. female with significant past medical history of Bipolar affect, c hronic pain, COPD(chonic obstructive pulmonary disease), degenerative disc disease, gastroes ophageal reflex disease, hypertension, lumbar facet arthropathy, marijuana abuse, SMOKING, r adiculopathy of lumbar region, sleep apnea, and spinal stenosis who presents with mixed inco ntinence urge and stress, dyspareunia, cystocele, rectocele, and hypertonicity of bladder. REVIEW OF SYSTEMS Review of Systems Constitutional: Negative. Negative for fever, chills and fatigue. HENT: Negative. Eyes: Negative. Respiratory: Negative. Cardiovascular: Negative. Gastrointestinal: Negative. Negative for nausea, vomiting, diarrhea and constipation. Genitourinary: Positive for urgency, frequency, enuresis, vaginal pain, pelvic pain and dys pareunia. Musculoskeletal: Negative. Skin: Negative. Neurological: Negative. Hematological: Negative. Psychiatric/Behavioral: Positive for dysphoric mood. Patient's mother two days ago. Offered to cancel or postpone surgery, neeru saleh prefers to proceed. Past Medical History Diagnosis Date Anxiety Hypertension Thyroid disease Depression Hepatitis C Past Surgical History Procedure Date Hysterectomy [place]olecystectomy [place] [facility] [place] [facility] [place] No Known Allergies Current Outpatient Prescriptions on File Prior to Visit Medication Sig Dispense Refill albuterol (PROVENTIL) (2.5 MG/3ML) 0.083% nebulizer solution Take 6 mLs by nebulization every 6 (six) hours as needed for Wheezing. 20 vial 1 albuterol (VENTOLIN HFA) 108 (90 BASE) MCG/ACT inhaler Inhale 2 puffs into the lungs ev nikolai 4 (four) hours as needed for Wheezing. 3.7 g 11 baclofen (LIORESAL) 10 MG tablet take 1-2 tablets by mouth every 8 hours if needed for muscle spasm and TIGHTNESS 75 tablet 0 benzonatate (TESSALON) 100 MG capsule Take 1 capsule by mouth 3 (three) times daily as needed for Cough. 30 capsule 2 ergocalciferol (DRISDOL) 89320 UNITS capsule Take 1 capsule by mouth once a week. 12 c apsule 0 estradiol (ESTRACE VAGINAL) 0.1 MG/GM vaginal cream Place one gram vaginally qhs x 2 we eks, then begin using one gram vaginally three times weekly at night. 42.5 g 12 FLUoxetine (PROZAC) 40 MG capsule Take 1 capsule by mouth daily. 90 capsule 3 gabapentin (NEURONTIN) 100 MG capsule Take 1 capsule by mouth 2 (two) times daily. 60 capsule 1 gabapentin (NEURONTIN) 300 MG capsule Take 2 capsules by mouth nightly. 60 capsule 1 hydrALAZINE (APRESOLINE) 25 MG tablet Take 1-2 tablets PO every 8 hours as needed for a nxiety 90 tablet 11 hydrOXYzine (ATARAX) 25 MG tablet Take 50 mg by mouth 3 (three) times daily as needed. ipratropium-albuterol (COMBIVENT) 18-103 MCG/ACT inhaler Inhale 2 puffs into the lungs every 6 (six) hours as needed for Wheezing. 14.7 g 3 levothyroxine (SYNTHROID, LEVOTHROID) 25 MCG tablet Take 1 tablet by mouth every mornin g before breakfast. 90 tablet 3 lisinopril (PRINIVIL,ZESTRIL) 10 MG tablet Take 1 tablet by mouth daily. 90 tablet 3 loratadine (CLARITIN) 10 MG tablet Take 1 tablet by mouth daily. 90 tablet 3 LORazepam (ATIVAN) 1 MG tablet Take 1 tablet by mouth every 6 (six) hours as needed for Anxiety. 50 tablet 0 OLANZapine (ZYPREXA) 10 MG tablet Take 1 tablet by mouth nightly. 90 tablet 3 omeprazole (PRILOSEC) 20 MG capsule Take 20 mg by mouth every morning before breakfast. oxyCODONE-acetaminophen (PERCOCET) 10-325 MG per tablet Take 1 tablet by mouth every 12 (twelve) hours as needed for Pain. 30 tablet 0 oxyCODONE-acetaminophen (PERCOCET) 10-325 MG per tablet Take 1 tablet by mouth every 12 (twelve) hours as needed for Pain. 30 tablet 0 solifenacin (VESICARE) 10 MG tablet Take 1 tablet by mouth daily. 30 tablet 3 Spacer/Aero-Holding Chambers (AEROCHAMBER MV) inhaler For use with inhalers 1 each 0 Family History Problem Relation Age of Onset Breast cancer Sister Skin cancer Sister Ovarian cancer Sister Heart disease Mother Diabetes Father History Social History Marital Status: Significant Other Spouse Name: N/A Number of Children: N/A Years of Education: N/A Occupational History Not on file. Social History Main Topics Smoking status: Current Every Day Smoker -- 1 years Smokeless tobacco: Never Used Alcohol Use: No Drug Use: No Sexually Active: Not Currently Control/ Protection: Surgical-Self Other Topics Concern Not on file Social History Narrative No narrative on file History Smoking status Current Every Day Smoker -- 1 years Smokeless tobacco Never Used History Alcohol Use No History Drug Use No History Sexual Activity Sexually Active: Not Currently Control/ Protection: Surgical-Self PHYSICAL EXAM Vital Signs: There were no vitals taken for this visit. Physical Exam Nursing note and vitals reviewed. Constitutional: She is oriented to person, place, and time. She appears well-developed and well-nourished. HENT: Head: Normocephalic and atraumatic. Nose: Nose normal. Eyes: Conjunctivae normal and EOM are normal. Pupils are equal, round, and reactive to ligh t. Neck: Normal range of motion. Neck supple. No tracheal deviation present. No thyromegaly pr esent. Cardiovascular: Normal rate, regular rhythm and normal heart sounds. Exam reveals no mayers p and no friction rub. No murmur heard. Pulmonary/Chest: Effort normal and breath sounds normal. No stridor. No respiratory distres s. She has no wheezes. She has no rales. Genitourinary: Vagina normal and uterus normal. Pelvic exam was performed with patient supi ne. Cervix exhibits no motion tenderness. Right adnexum displays no mass, no tenderness and no fullness. Left adnexum displays no mass, no tenderness and no fullness. Musculoskeletal: Normal range of motion. Lymphadenopathy: She has no cervical adenopathy. Neurological: She is alert and oriented to person, place, and time. She has normal reflexes . Skin: Skin is warm and dry. Psychiatric: She has a normal mood and affect. Her behavior is normal. Thought content norm al. DATA CBC: Lab Results Component Value Date WBC 8.4 09/29/2013 RBC 4.04 09/29/2013 HGB 12.1 09/29/2013 HCT 36.5 09/29/2013 MCV 90.4 09/29/2013 MCH 30.0 09/29/2013 MCHC 33.2 09/29/2013 RDW 47.3 09/29/2013 PLT 330 09/29/2013 MPV 8.1 09/29/2013 DIFFTYPE AUTOMATED 09/29/2013 CMP: Lab Results Component Value Date NA 137 10/08/2013 K 4.7 10/08/2013 CL 107 10/08/2013 CO2 26 10/08/2013 ANIONGAP 9 10/08/2013 GLUF 146* 10/08/2013 BUN 15 10/08/2013 CREATININE 0.89 10/08/2013 BCR 17 10/08/2013 CA 10.0 10/08/2013 PROT 7.7 09/29/2013 ALB 4.0 09/29/2013 GLOB 3.7 09/29/2013 BILITOT 0.4 09/29/2013 ALP 127* 09/29/2013 AST 115* 09/29/2013 ALT 114* 09/29/2013 EGFR >60 10/08/2013 Hepatic Function Panel: Lab Results Component Value Date PROT 7.7 09/29/2013 ALB 4.0 09/29/2013 BILITOT 0.4 09/29/2013 BILIDIR 0.1 09/20/2013 ALP 127* 09/29/2013 AST 115* 09/29/2013 ALT 114* 09/29/2013 Magnesium: Lab Results Component Value Date MG 1.8 09/21/2013 Phosphorus: Lab Results Component Value Date PHOS 3.0 09/21/2013 Uric Acid: Lab Results Component Value Date URICACID 7.1 09/29/2013 PT/INR: Lab Results Component Value Date INR 0.9 10/08/2013 PTT: Lab Results Component Value Date APTT 23 09/19/2013 CPK: Lab Results Component Value Date CKTOTAL 519* 09/21/2013 CKMB: Lab Results Component Value Date CKMB 53.7* 09/19/2013 U/A: Lab Results Component Value Date COLORU YELLOW 09/19/2013 CLARITYU CLEAR 09/19/2013 NITRITE NEGATIVE 09/19/2013 UROBILINOGEN 0.2 09/19/2013 PHUR 6.0 09/19/2013 BILIRUBINUR NEGATIVE 09/19/2013 ABG: Lab Results Component Value Date POCPH 7.332* 09/19/2013 POCPCO 41 09/19/2013 POCPO2 73* 09/19/2013 POCHCO 22 09/19/2013 POCTCO2 23 09/19/2013 POCBD 4* 09/19/2013 POCSO2 93* 09/19/2013 VBG: Lab Results Component Value Date POCBD 4* 09/19/2013 TSH: Lab Results Component Value Date TSH 1.32 10/08/2013 WBC with Differentials: Lab Results Component Value Date NEUTROABS 4.0 09/29/2013 LYMPHSABS 3.0 09/29/2013 LYMPHOPCT 36.0 09/29/2013 MONOPCT 11.6 09/29/2013 EOSABS 0.3 09/29/2013 EOSPCT 3.7 09/29/2013 BASOSABS 0.1 09/29/2013 BASOPCT 1.0 09/29/2013 PROBLEM LIST Patient Active Problem List Diagnosis Bipolar affective HTN (hypertension) COPD (chronic obstructive pulmonary disease) Nicotine addiction Sleep apnea Spinal stenosis, lumbar GERD (gastroesophageal reflux disease) Mixed stress and urge urinary incontinence Dyspareunia Cystocele Rectocele OAB (overactive bladder) Radiculopathy of lumbar region Chronic pain Stenosis of lumbosacral spine Lumbosacral radiculopathy at L5 Altered mental status Polypharmacy Marijuana abuse Back ache DDD (degenerative disc disease), lumbar Lumbar facet arthropathy ASSESSMENT & PLAN 1. Patient is a 53 y.o. female with above specified procedure planned. 2. Procedure options, risks, benefits and alternatives reviewed with patient who express( es) understanding. Any and all questions were answered to their satisfaction. 3. Patient understands limitations to include but not limited to: Failure, urinary retent ion, fistula formation, pelvic pain, dyspareunia. 4. Care will be made for postioning given spinal stenosis. 5. Standard workup to include EKG and CXR 6. CPAP postop. 7. Bring in inhalers to hospital 8. Take Baclofen, Lisinopril, Zyprexa, Prilosec with sip of water in AM of surgery 9. Bowel cleanse with dulcolax and fleets. Clear liquids post breakfast. Primary Care Physician: GER FULTON *CORE MEASURES REMINDER: If the patient has a known or suspected infection prior to surger y, please add diagnosis to the problem list (consider: Infection 136.9). urner, Misha Lopez MD - 12/11/2013 3:18 PM PDT H&P (View-Only) by Misha Todd MD at 12/11/13 5445 Author: Misha Todd MD Service: (none) Author Type: Physician Filed: 12/11/13 1576 Date of Service: 12/11/131517 Status: Signed Senior Accounting Manager: Misha Todd MD (Physician) [facility] Service: Obstetrics & Gynecology Pre-Operative History & Physical DIAGNOSIS: 1. Mixed incontinence urge and stress 2. Dyspareunia 3. Cystocele, midline 4. Rectocele 5. Hypertonicity of bladder INDICATION: Please see above PROCEDURE: 1. Anterior Colporrhaphy 2. Posterior Colporrhaphy 3. TVT bladder sling 4. Cystoscopy with hydrodistension 5. Possible enterocele repair. CHIEF COMPLAINT: 1. Mixed incontinence urge and stress 2. Dyspareunia 3. Cystocele,midline 4. Rectocele 5. Hypertonicity of bladder History Obtained From: patient HISTORY OF PRESENT ILLNESS The patient is a 53 y.o. female with significant past medical history of Bipolar affect, c hronic pain, COPD(chonic obstructive pulmonary disease), degenerative disc disease, gastroes ophageal reflex disease, hypertension, lumbar facet arthropathy, marijuana abuse, SMOKING, r adiculopathy of lumbar region, sleep apnea, and spinal stenosis who presents with mixed inco ntinence urge and stress, dyspareunia, cystocele, rectocele, and hypertonicity of bladder. REVIEW OF SYSTEMS Review of Systems Constitutional: Negative. Negative for fever, chills and fatigue. HENT: Negative. Eyes: Negative. Respiratory: Negative. Cardiovascular: Negative. Gastrointestinal: Negative. Negative for nausea, vomiting, diarrhea and constipation. Genitourinary: Positive for urgency, frequency, enuresis, vaginal pain, pelvic pain and dys pareunia. Musculoskeletal: Negative. Skin: Negative. Neurological: Negative. Hematological: Negative. Psychiatric/Behavioral: Positive for dysphoric mood. Patient's mother two days ago. Offered to cancel or postpone surgery, pat ient prefers to proceed. Past Medical History Diagnosis Date Anxiety Hypertension Thyroid disease Depression Hepatitis C Past Surgical History Procedure Date Hysterectomy [place]olecystectomy [place] [facility] [place] [facility] [place] No Known Allergies Current Outpatient Prescriptions on File Prior to Visit Medication Sig Dispense Refill albuterol (PROVENTIL) (2.5 MG/3ML) 0.083% nebulizer solution Take 6 mLs by nebulization every 6 (six) hours as needed for Wheezing. 20 vial 1 albuterol (VENTOLIN HFA) 108 (90 BASE) MCG/ACT inhaler Inhale 2 puffs into the lungs ev nikolai 4 (four) hours as needed for Wheezing. 3.7 g 11 baclofen (LIORESAL) 10 MG tablet take 1-2 tablets by mouth every 8 hours if needed for muscle spasm and TIGHTNESS 75 tablet 0 benzonatate (TESSALON) 100 MG capsule Take 1 capsule by mouth 3 (three) times daily as needed for Cough. 30 capsule 2 ergocalciferol (DRISDOL) 38908 UNITS capsule Take 1 capsule by mouth once a week. 12 c apsule 0 estradiol (ESTRACE VAGINAL) 0.1 MG/GM vaginal cream Place one gram vaginally qhs x 2 we eks, then begin using one gram vaginally three times weekly at night. 42.5 g 12 FLUoxetine (PROZAC) 40 MG capsule Take 1 capsule by mouth daily. 90 capsule 3 gabapentin (NEURONTIN) 100 MG capsule Take 1 capsule by mouth 2 (two) times daily. 60 capsule 1 gabapentin (NEURONTIN) 300 MG capsule Take 2 capsules by mouth nightly. 60 capsule 1 hydrALAZINE (APRESOLINE) 25 MG tablet Take 1-2 tablets PO every 8 hours as needed for a nxiety 90 tablet 11 hydrOXYzine (ATARAX) 25 MG tablet Take 50 mg by mouth 3 (three) times daily as needed. ipratropium-albuterol (COMBIVENT) 18-103 MCG/ACT inhaler Inhale 2 puffs into the lungs every 6 (six) hours as needed for Wheezing. 14.7 g 3 levothyroxine (SYNTHROID, LEVOTHROID) 25 MCG tablet Take 1 tablet by mouth every mornin g before breakfast. 90 tablet 3 lisinopril (PRINIVIL,ZESTRIL) 10 MG tablet Take 1 tablet by mouth daily. 90 tablet 3 loratadine (CLARITIN) 10 MG tablet Take 1 tablet by mouth daily. 90 tablet 3 LORazepam (ATIVAN) 1 MG tablet Take 1 tablet by mouth every 6 (six) hours as needed for Anxiety. 50 tablet 0 OLANZapine (ZYPREXA) 10 MG tablet Take 1 tablet by mouth nightly. 90 tablet 3 omeprazole (PRILOSEC) 20 MG capsule Take 20 mg by mouth every morning before breakfast. oxyCODONE-acetaminophen (PERCOCET) 10-325 MG per tablet Take 1 tablet by mouth every 12 (twelve) hours as needed for Pain. 30 tablet 0 oxyCODONE-acetaminophen (PERCOCET) 10-325 MG per tablet Take 1 tablet by mouth every 12 (twelve) hours as needed for Pain. 30 tablet 0 solifenacin (VESICARE) 10 MG tablet Take 1 tablet by mouth daily. 30 tablet 3 Spacer/Aero-Holding Chambers (AEROCHAMBER MV) inhaler For use with inhalers 1 each 0 Family History Problem Relation Age of Onset Breast cancer Sister Skin cancer Sister Ovarian cancer Sister Heart disease Mother Diabetes Father History Social History Marital Status: Significant Other Spouse Name: N/A Number of Children: N/A Years of Education: N/A Occupational History Not on file. Social History Main Topics Smoking status: Current Every Day Smoker -- 1 years Smokeless tobacco: Never Used Alcohol Use: No Drug Use: No Sexually Active: Not Currently Control/ Protection: Surgical-Self Other Topics Concern Not on file Social History Narrative No narrative on file History Smoking status Current Every Day Smoker -- 1 years Smokeless tobacco Never Used History Alcohol Use No History Drug Use No History Sexual Activity Sexually Active: Not Currently Control/ Protection: Surgical-Self PHYSICAL EXAM Vital Signs: There were no vitals taken for this visit. Physical Exam Nursing note and vitals reviewed. Constitutional: She is oriented to person, place, and time. She appears well-developed and well-nourished. HENT: Head: Normocephalic and atraumatic. Nose: Nose normal. Eyes: Conjunctivae normal and EOM are normal. Pupils are equal, round, and reactive to ligh t. Neck: Normal range of motion. Neck supple. No tracheal deviation present. No thyromegaly pr esent. Cardiovascular: Normal rate, regular rhythm and normal heart sounds. Exam reveals no mayers p and no friction rub. No murmur heard. Pulmonary/Chest: Effort normal and breath sounds normal. No stridor. No respiratory distres s. She has no wheezes. She has no rales. Genitourinary: Vagina normal and uterus normal. Pelvic exam was performed with patient jelena lewis. Cervix exhibits no motion tenderness. Right adnexum displays no mass, no tenderness and no fullness. Left adnexum displays no mass, no tenderness and no fullness. Musculoskeletal: Normal range of motion. Lymphadenopathy: She has no cervical adenopathy. Neurological: She is alert and oriented to person, place, and time. She has normal reflexes . Skin: Skin is warm and dry. Psychiatric: She has a normal mood and affect. Her behavior is normal. Thought content norm al. DATA CBC: Lab Results Component Value Date WBC 8.4 09/29/2013 RBC 4.04 09/29/2013 HGB 12.1 09/29/2013 HCT 36.5 09/29/2013 MCV 90.4 09/29/2013 MCH 30.0 09/29/2013 MCHC 33.2 09/29/2013 RDW 47.3 09/29/2013 PLT 330 09/29/2013 MPV 8.1 09/29/2013 DIFFTYPE AUTOMATED 09/29/2013 CMP: Lab Results Component Value Date NA 137 10/08/2013 K 4.7 10/08/2013 CL 107 10/08/2013 CO2 26 10/08/2013 ANIONGAP 9 10/08/2013 GLUF 146* 10/08/2013 BUN 15 10/08/2013 CREATININE 0.89 10/08/2013 BCR 17 10/08/2013 CA 10.0 10/08/2013 PROT 7.7 09/29/2013 ALB 4.0 09/29/2013 GLOB 3.7 09/29/2013 BILITOT 0.4 09/29/2013 ALP 127* 09/29/2013 AST 115* 09/29/2013 ALT 114* 09/29/2013 EGFR >60 10/08/2013 Hepatic Function Panel: Lab Results Component Value Date PROT 7.7 09/29/2013 ALB 4.0 09/29/2013 BILITOT 0.4 09/29/2013 BILIDIR 0.1 09/20/2013 ALP 127* 09/29/2013 AST 115* 09/29/2013 ALT 114* 09/29/2013 Magnesium: Lab Results Component Value Date MG 1.8 09/21/2013 Phosphorus: Lab Results Component Value Date PHOS 3.0 09/21/2013 Uric Acid: Lab Results Component Value Date URICACID 7.1 09/29/2013 PT/INR: Lab Results Component Value Date INR 0.9 10/08/2013 PTT: Lab Results Component Value Date APTT 23 09/19/2013 CPK: Lab Results Component Value Date CKTOTAL 519* 09/21/2013 CKMB: Lab Results Component Value Date CKMB 53.7* 09/19/2013 U/A: Lab Results Component Value Date COLORU YELLOW 09/19/2013 CLARITYU CLEAR 09/19/2013 NITRITE NEGATIVE 09/19/2013 UROBILINOGEN 0.2 09/19/2013 PHUR 6.0 09/19/2013 BILIRUBINUR NEGATIVE 09/19/2013 ABG: Lab Results Component Value Date POCPH 7.332* 09/19/2013 POCPCO 41 09/19/2013 POCPO2 73* 09/19/2013 POCHCO 22 09/19/2013 POCTCO2 23 09/19/2013 POCBD 4* 09/19/2013 POCSO2 93* 09/19/2013 VBG: Lab Results Component Value Date POCBD 4* 09/19/2013 TSH: Lab Results Component Value Date TSH 1.32 10/08/2013 WBC with Differentials: Lab Results Component Value Date NEUTROABS 4.0 09/29/2013 LYMPHSABS 3.0 09/29/2013 LYMPHOPCT 36.0 09/29/2013 MONOPCT 11.6 09/29/2013 EOSABS 0.3 09/29/2013 EOSPCT 3.7 09/29/2013 BASOSABS 0.1 09/29/2013 BASOPCT 1.0 09/29/2013 PROBLEM LIST Patient Active Problem List Diagnosis Bipolar affective HTN (hypertension) COPD (chronic obstructive pulmonary disease) Nicotine addiction Sleep apnea Spinal stenosis, lumbar GERD (gastroesophageal reflux disease) Mixed stress and urge urinary incontinence Dyspareunia Cystocele Rectocele OAB (overactive bladder) Radiculopathy of lumbar region Chronic pain Stenosis of lumbosacral spine Lumbosacral radiculopathy at L5 Altered mental status Polypharmacy Marijuana abuse Back ache DDD (degenerative disc disease), lumbar Lumbar facet arthropathy ASSESSMENT & PLAN 1. Patient is a 53 y.o. female with above specified procedure planned. 2. Procedure options, risks, benefits and alternatives reviewed with patient who express( es) understanding. Any and all questions were answered to their satisfaction. 3. Patient understands limitations to include but not limited to: Failure, urinary retent ion, fistula formation, pelvic pain, dyspareunia. 4. Care will be made for postioning given spinal stenosis. 5. Standard workup to include EKG and CXR 6. CPAP postop. 7. Bring in inhalers to hospital 8. Take Baclofen, Lisinopril, Zyprexa, Prilosec with sip of water in AM of surgery 9. Bowel cleanse with dulcolax and fleets. Clear liquids post breakfast. Primary Care Physician: GER FULTON *CORE MEASURES REMINDER: If the patient has a known or suspected infection prior to surger y, please add diagnosis to the problem list (consider: Infection 136.9). documented in this e ncounter Miscellaneous Notes Plan of Care - Conversion Transaction, Provider Unknown - 12/26/2013 7:29 AM PDT Plan of Care by Sarah Birch RN at 12/26/13728 Author: Sarah Birch RN Service: (none) Author Type: Registered Nurse Filed: 12/26/13728 Date of Service: 12/26/13728 Status: Signed Senior Accounting Manager: Sarah Birch RN (Registered Nurse) Problem: Safety Goal: Patient will be injury free during hospitalization Assess and monitor vitals signs, neurological status including level of consciousness and o rientation. Assess patient s risk for falls and implement fall prevention plan of care and interventions per hospital policy. Ensure arm band on, uncluttered walking paths in room, adequate room lighting, call light a nd overbed table within reach, bed in low position, wheels locked, side rails up per policy, and non-skid footwear provided. Outcome: Progressing Call light in place. Instructed patient to use when assistance is needed. SARAH BIRCH RN 12/26/2013 7:28 AM p Not feliciano - Misha Todd MD - 12/24/2013 3:01 PM PDT Op Note by Misha Todd MD at 12/24/13 1501 Author: Misha Todd MD Service: Obstetrics/Gynecology Author Type: Physician Filed: 12/24/13 1514 Date of Service: 12/24/13 1501 Status: Signed Senior Accounting Manager: Misha Todd MD (Physician) [facility] Service: Obstetrics & Gynecology Operative Note Name: Bisi Becker Age: 53 y.o. Today's Date: 12/24/2013 Time: 3:01 PM Procedure: 1. Posterior Colporrhaphy 2. TVT 3. Cystourethroscopy with Bladder Hydrodistension Pre-Op Diagnoses: 1. Symptomatic Rectocele 2. Urinary Stress Incontinence 3. Overactive Bladder Symptoms Post-Op Diagnoses: GARTH Surgeon: Misha Todd MD Assist: Jessica Chiang PA-C Anesthesia: General ET Provider/s: Ean Alfaro MD Specimens: None Indications: As above Findings: Expected anatomy. Cystourethroscopy revealed no evidence of bladder or urethral perforatio n with either mesh or suture. Bladder mucosa was normal in appearance without significant h emorrhages post deflation. Estimated Blood Loss: 75 ml Total IV Fluids: 1500 ml Complications: None Narrative: I spoke with patient in the pre-operative holding area in advance of surgery and we confirm ed the surgical plan. Her immediate physical health was unchanged since my last visit with her. Patient was taken to the operating room and placed onto the operating room table in supine position. Successful general anesthesia was induced. Patient's legs were then brought up i nto low lithotomy position. Lower abdomen, thighs, vulva, vagina and perineum are all prepp ed with Betadine. A macias catheter is placed successfully and patient is draped for the pro cedure. Exam under anesthesia demonstrated adequate support of the anterior compartment. H owever rectocele was confirmed POSTERIOR COLPORRHAPHY: Next we performed the rectocele repair with perineorrhaphy. Using a diluted Bupivacaine, L idocaine and epinephrine solution, hydro-dissection along the posterior wall was completed i n a thorough fashion. The perineum was also infiltrated. A "V" incision was made starting at half the distance between the posterior introitus and a nus. The two incisions angle laterally at 45 degrees to the lateral aspects of the posterior fourchette. The incisions were then angled back to the midline, coming together within the posterior vaginal mucosa. This resulted in a "aster-shaped" specimen of perineal skin and vaginal mucosa that was completely excised. The apex of this incision was extended proximally in the midline for approximately half the distance of the posterior vaginal wall. Riley clamps are used for hemostasis and retractio n. Next the rectal wall and endopelvic fascia were dissected away from the vaginal mucosa. These structures were then imbricated with one run of 2-0 Vicryl suture in non-locking fashi on. The perineum was built up using the same suture. By doing so, the caliber of vaginal in troitus was narrowed. Redundant vaginal mucosa was excised. The mucosal defect was then cl osed in a single run of 2-0 Vicryl suture in non-locking fashion. The same suture was used to close the perineal skin in a subcuticular fashion, thus completing the repair. CPT CODE for A&P REPAIR: 84287 TVT: Allis clamps were used to demarcate my proposed incision for the TVT. Using the dilute loc al anesthetic/epinephrine solution, the suburethral, anterior vaginal mucosa was infiltrated . The infiltration also included suprapubic and carrie-urethral areas. Using a #15 blade, a 3 cm, sagittal, midline, anterior vaginal mucosal incision was made starting approximately 1.5 cm proximal to the Urethral meatus. The customary sharp and blunt dissection (with my fingers) was performed creating tunnels o n either side of the urethra. The bag was from the Macias catheter and the cathete r guide inserted into the catheter allowing manipulation of the bladder. Through the suburethral incision, the TVT trocar with attached mesh was attached to its rosenthal dle and the tip passed through the left periurethral tissues, hugging the posterior symphysi s to my proposed exit site 2 cm lateral from the midline and just superior to the symphysis pubis. The macias catheter and catheter guide were then removed. Cystourethroscopy was perf ormed confirming no perforation of the bladder or urethra. The handle was from th e trocar and later attached to the other side. The metal trocar was brought fully through t he suprapubic skin. An exactly similar procedure was performed on the right side with equal ly excellent results. Repeat cystourethroscopy demonstrated no perforation on the right missael e and that both ureters were found to be squirting indigo carmine dye. With this accomplish ed, the remaining trocar was brought through the skin and both trocars were were excised fro m the tape. Tensioning was rechecked. The plastic sheathing was removed and tensioning rec onfirmed. The tape was then divided below the surface of the skin. The vaginal mucosal inci sions were closed using a 3-0 Vicryl suture in a running, non-locking fashion. Dermabond wa s used to close the suprapubic incision sites. CPT CODE for TVT: 99257 CYSTOURETHROSCOPY WITH HYDRODISTENSION: The Macias catheter was removed and in its place a 70 video cystoscope was inserted. The bladder was slowly filled with saline. The entire urethra and bladder cavity were visualize d. No suture or mesh could be visualized. With observation, we confirmed that both ureters were peristalsing. The saline was allowed to flow into the bladder with the bag 2 feet above the patient. Thi s continued until no additional fluid passed. Following this the fluid was allowed to drain and while doing so continuous video cystoscopy was performed evaluating for any post-deflat ion mucosal hemorrhages. Following cystoscopy, the Macias catheter was replaced and the vagina filled with vaginal pa cking coated with a water-based lubricant. With the procedure complete, patient's legs were brought down into supine position and she was awakened extubated and taken to the recovery room in good condition. CPT CODE for CYSTOURETHROSCOPY WITH BLADDER DISTENSION: 25373 Disposition: Pt moved to PACU/recovery room. Condition: Stable and satisfactory condition. Sponge and Needle Count: Correct MISHA TODD MD has created this entry using Dragonplay Voice Recognition software a [employer] The entry has been reviewed and there may still exist sound alike word erro rs. MISHA TODD MD 12/24/2013 3:01 PM documented in this e ncounter Plan of Treatment Not on filedocumented as of this encounter Procedures + +--------+ + + + | Procedure Name | Priori | Date/Time | Associated Diagnosis | Comments | | | ty | | | | + +--------+ + + + | EXTERNAL LAB: CBC | Routin | 12/25/2013 | | Results for this | | | e | 3:25 AM | | procedure are in the | | | | PDT | | results section. | + +--------+ + + + | BASIC METABOLIC | Routin | 12/25/2013 | | Results for this | | PANEL | e | 3:25 AM | | procedure are in the | | | | PDT | | results section. | + +--------+ + + + | TYPE AND SCREEN | Routin | 12/24/2013 | | Results for this | | | e | 11:15 AM | | procedure are in the | | | | PDT | | results section. | + +--------+ + + + documented in this encounter Results External Lab: CBC (12/25/2013 3:25 AM PDT) + + + + + + | Component | Value | Ref Range | Performed | Pathologist | | | | | At | Signature | + + + + + + | WBC | 10.4Comment: Testing | 3.8 - 11.0 K/uL | EXTERNAL | | | | performed at [facility], [address] | | LAB | | | | [address], | | | | | | [place] [address] | | | | + + + + + + | Non- | 3.87Comment: Testing | 3.70 - 5.10 | EXTERNAL | | | Red Blood | performed at [facility], [address] | M/uL | LAB | | | Cells | [address], | | | | | Counted | [place] [address] | | | | + + + + + + | Hemoglobin | 11.8Comment: Testing | 11.3 - 15.5 | EXTERNAL | | | | performed at [facility], [address] | g/dL | LAB | | | | [address], | | | | | | [place] [address] | | | | + + + + + + | Hematocrit, | 35.8Comment: Testing | 34.0 - 46.0 % | EXTERNAL | | | POC | performed at [facility], [address] | | LAB | | | | [address], | | | | | | [place] [address] | | | | + + + + + + | MCV | 92.5Comment: Testing | 80.0 - 100.0 fl | EXTERNAL | | | | performed at [facility], [address] | | LAB | | | | [address], | | | | | | [place] [address] | | | | + + + + + + | MCH | 30.5Comment: Testing | 27.0 - 34.0 pg | EXTERNAL | | | | performed at [facility], [address] | | LAB | | | | [address], | | | | | | [place] [address] | | | | + + + + + + | MCHC | 32.9Comment: Testing | 32.0 - 35.5 | EXTERNAL | | | | performed at [facility], [address] | g/dL | LAB | | | | [address], | | | | | | [place] [address] | | | | + + + + + + | RDW-CV | 49.9Comment: Testing | 37 - 53 fl | EXTERNAL | | | | performed at [facility], [address] | | LAB | | | | [address], | | | | | | [place] [address] | | | | + + + + + + | Platelet | 208Comment: Testing | 150 - 400 K/uL | EXTERNAL | | | Count | performed at [facility], [address] | | LAB | | | Plasma | [address], | | | | | | [place] [address] | | | | + + + + + + | MPV | 8.4Comment: Testing | fl | EXTERNAL | | | | performed at [facility], [address] | | LAB | | | | [address], | | | | | | [place] [address] | | | | + + + + + + | Differentia | AUTOMATEDComment: SLIDE | | EXTERNAL | | | l Type | SCANNED, AGREES WITH | | LAB | | | | AUTOMATED | | | | | | RESULTS.Testing | | | | | | performed at [facility], [address] | | | | | | [address], | | | | | | [place] [address] | | | | + + + + + + | % Segmented | 86.6Comment: Testing | % | EXTERNAL | | | | performed at [facility], [address] | | LAB | | | Neutrophils | [address], | | | | | | [place], [place] [address] | | | | + + + + + + | % | 9.0Comment: Testing | % | EXTERNAL | | | Lymphocytes | performed at [facility], [address] | | LAB | | | | [address], | | | | | | [place] [address] | | | | + + + + + + | % Monocytes | 4.3Comment: Testing | % | EXTERNAL | | | | performed at [facility], [address] | | LAB | | | | [address], | | | | | | [place] [address] | | | | + + + + + + | % | 0.0Comment: Testing | % | EXTERNAL | | | Eosinophils | performed at [facility], [address] | | LAB | | | | [address], | | | | | | [place] [address] | | | | + + + + + + | % Basophils | 0.1Comment: Testing | % | EXTERNAL | | | | performed at [facility], [address] | | LAB | | | | [address], | | | | | | [place] [address] | | | | + + + + + + | Absolute | 9.0 (H)Comment: Testing | 1.9 - 7.4 K/uL | EXTERNAL | | | Segmented | performed at [facility], [address] | | LAB | | | Neutrophils | [address], | | | | | | [place] [address] | | | | + + + + + + | Absolute | 0.9 (L)Comment: Testing | 1.0 - 3.9 K/uL | EXTERNAL | | | Lymphocytes | performed at [facility], [address] | | LAB | | | | [address], | | | | | | [place] [address] | | | | + + + + + + | Absolute | 0.4Comment: Testing | 0 - 0.8 K/uL | EXTERNAL | | | Monocytes | performed at [facility], [address] | | LAB | | | | [address], | | | | | | [place] [address] | | | | + + + + + + | Absolute | 0.0Comment: Testing | 0 - 0.5 K/uL | EXTERNAL | | | Eosinophils | performed at [facility], [address] | | LAB | | | | [address], | | | | | | [place] [address] | | | | + + + + + + | Absolute | 0.0Comment: Testing | 0 - 0.1 K/uL | EXTERNAL | | | Basophils | performed at [facility], [address] | | LAB | | | | [address], | | | | | | [place] [address] | | | | + + + + + + + + | Specimen | + + | Blood specimen | | (specimen) | + + + +---------+ + + | Performing | Address | City/State/Zipcode | Phone Number | | Organization | | | | + +---------+ + + | EXTERNAL LAB | | | | + +---------+ + + Basic Metabolic Panel (12/25/2013 3:25 AM PDT) + + + + + + | Component | Value | Ref Range | Performed | Pathologist | | | | | At | Signature | + + + + + + | Na | 136Comment: Testing | 135 - 143 | EXTERNAL | | | | performed at [facility], [address] | mmol/L | LAB | | | | [address], | | | | | | [place] [address] | | | | + + + + + + | K | 4.5Comment: Testing | 3.5 - 4.9 | EXTERNAL | | | | performed at [facility], [address] | mmol/L | LAB | | | | [address], | | | | | | [place] [address] | | | | + + + + + + | Cl | 107Comment: Testing | 99 - 109 mmol/L | EXTERNAL | | | | performed at [facility], [address] | | LAB | | | | [address], | | | | | | [place] [address] | | | | + + + + + + | CO2 | 26Comment: Testing | 23 - 32 mmol/L | EXTERNAL | | | | performed at [facility], [address] | | LAB | | | | [address], | | | | | | [place] [address] | | | | + + + + + + | Anion Gap | 8Comment: Testing | 5 - 20 mmol/L | EXTERNAL | | | | performed at [facility], [address] | | LAB | | | | [address], | | | | | | [place] [address] | | | | + + + + + + | Glucose, | 137 (H)Comment: Testing | 65 - 99 mg/dL | EXTERNAL | | | Fasting | performed at [facility], [address] | | LAB | | | | [address], | | | | | | [place] [address] | | | | + + + + + + | BUN | 16Comment: Testing | 8 - 25 mg/dL | EXTERNAL | | | | performed at [facility], [address] | | LAB | | | | [address], | | | | | | [place] [address] | | | | + + + + + + | Creatinine | 0.75Comment: Testing | 0.50 - 1.00 | EXTERNAL | | | | performed at [facility], [address] | mg/dL | LAB | | | | [address], | | | | | | [place] [address] | | | | + + + + + + | BUN/Creatin | 21Comment: Testing | | EXTERNAL | | | ine Ratio | performed at [facility], [address] | | LAB | | | | [address], | | | | | | [place] [address] | | | | + + + + + + | Calcium | 9.1Comment: Testing | 8.5 - 10.2 | EXTERNAL | | | | performed at [facility], [address] | mg/dL | LAB | | | | [address], | | | | | | [place] [address] | | | | + + + [...] | | | | | | at [facility], [address] | | | | | | [address], | | | | | | [place] [address] | | | | + + + + + + + + | Specimen | + + | Blood specimen | | (specimen) | + + + +---------+ + + | Performing | Address | City/State/Zipcode | Phone Number | | Organization | | | | + +---------+ + + | EXTERNAL LAB | | | | + +---------+ + + Type and Screen (12/24/2013 11:15 AM PDT) + + + + + [...] | EXTERNAL | | | | [facility] | | LAB | | | | [address];[place] [address] | | | | + + + + + + | Antibody | NEGATIVE | | EXTERNAL | | | Screen | | | LAB | | + + + + + + | Antibody | Testing performed at | | EXTERNAL | | | Screen | [facility] | | LAB | | | | Blvd;[place] [address] | | | | + + + + + + | BB BAND | [id number] | | EXTERNAL | | | | | | LAB | | + + + + + + | BB BAND | Testing performed at | | EXTERNAL | | | | [facility] | | LAB | | | | Blvd;[place] [address] | | | | + + + [...] + | Diagnosis | + + | Mixed incontinence urge and stress (male)(female) | + + | Hypothyroid Unspecified hypothyroidism | + + | HTN (hypertension) Unspecified essential hypertension | + + | Anxiety Anxiety state, unspecified | + + | Dyspareunia | + + | Cystocele, midline | + + | Hypertonicity of bladder | + + | Rectocele | + + | Mixed stress and urge urinary incontinence Mixed incontinence urge and stress | | (male)(female) | + + | OAB (overactive bladder) Hypertonicity of bladder | + + | Mood disorder (HCC) Unspecified episodic mood disorder | + + | Depression Depressive disorder, not elsewhere classified | + + documented in this encounter
--- OUTSIDE RECORDS SUMMARY | ~2020-02-12 | XMS | Encounter Summary ---
Demographics + + + | Address | [address] | | | [place] [address] | + + + | Home Phone [...] Author + + + | Author | [facility] | | | and [place] | + + + | Organization | [facility] | | | and [...] Team Providers + +------+ + | Care Truck Mechanic Name | Role | Phone | + +------+ + | Naren Nina PA-C | PCP | | + +------+ + Encounter Details +--------+ + + + + | Date | Type | Department | Care Team | Description | +--------+ + + + + | 09/27/ | Orders Only | [facility] | Conversion | | | 2016 | | INFECTIOUS DISEASE | Transaction, | | | | | [address] | Provider Unknown | | | | | [place], [place] | | | | | | [address] | (Fax) | | | | | [phone] | | | +--------+ + + + [...] as of this encounter Plan of Treatment Not on filedocumented as [...]
--- OUTSIDE RECORDS SUMMARY | ~2020-02-12 | XMS | Encounter Summary ---
Demographics + + + | Address | [address] | | | [place] [address] | + + + | Home Phone | | + + + | Preferred Language | Unknown | + + + | Marital Status | Single | + + + | Zoroastrian Affiliation | 1009 | + + + | Race | White | + + + | Ethnic Group | Not or | + + + Author + + + | Author | [facility] | | | and [place] | + + + | Organization | [facility] | | | and [...] Team Providers + +------+ + | Care Viscosity Tester Name | Role | Phone | + +------+ + | Naren Nina PA-C | PCP | | + +------+ + Reason for Visit + +--------+ + | Reason | Onset | Comments | | | Date | | + +--------+ + | Referral | 01/17/ | | | | 2015 | | + +--------+ + Encounter Details +--------+ + + + + | Date | Type | Department | Care Team | Description | +--------+ + + + + | 01/17/ | Telephone | [facility] | Henri Stewart, | Referral | | 2016 | | PHYSIATRY [address] | [address] | | | | | [address] | [place] | | | | | [place] | [address] | | | | | [address] | | | | | | [phone] | | | +--------+ + + + [...] this encounter Miscellaneous Notes Telephone Encounter - Allison Pride RN - 01/20/2016 5:26 PM PDTPer Patient's previous call/ request I contacted Dr. Wyman's office, unfortunately they do not accept the Patient insurance. I have now submitted a referral to [facility]. We will wait until we have appr oval to send it, then we will see what Marlen says. elephone Encounter - Danna Dalton - 01/20/2016 9:48 [address] PDTDr. Stewart referred this patient to [facility] in [place]. They denied th e referral because they state that they do not have the resources to help with this patient' s specific needs. Bisi is very frustrated by the fact that her referrals keep getting [facility], and would like to know if there is another facility, possibly in the [facility], that we could refer her to now. e lephone Encounter - Anjali Artis - 01/18/2016 10:21 AM PDTPatient called and states t [facility] from [place] has denied her as a patient (for reasons unknown). She is wanting to know if Dr. Stewart could send a new referral to see someone in the [facility]? documented i n this encounter Plan of Treatment Not on filedocumented as of this encounter Visit Diagnoses Not on filedocumented in this encounter"
--- OUTSIDE RECORDS SUMMARY | ~2020-02-12 | XMS | Encounter Summary ---
Demographics + + + | Address | [address] | | | [place] [address] | + + + | Home Phone | | + + + | Preferred Language | Unknown | + + + | Marital Status | Single | + + + | Hoahaoism Affiliation | 1009 | + + + | Race | White | + + + | Ethnic Group | Not or | + + + Author + + + | Author | [facility] | | | and [place] | + + + | Organization | [facility] | | | and [...] Team Providers + +------+ + | Care E M Assembler Name | Role | Phone | + +------+ + | Naren Nina PA-C | PCP | | + +------+ + Encounter Details +--------+ + + + + | Date | Type | Department | Care Team | Description | +--------+ + + + + | 02/09/ | Orders Only | [facility] | Danielle, | | | 2015 | | [address] | [address] | | | | | [place], [place] | [address] | | | | | [address] | [place] [address] | | | | | [phone] | [phone] | | | | | | | [...] | + +--------+ + + + | HIV 1 AND 2 ANTIBODY | Routin | 02/10/2016 | | Results for this | | DIFFERENTIATION | e | 2:14 PM | | procedure are in the | | | | PDT | | results section. | + +--------+ + + + | HEPATITIS C | Routin | 02/10/2016 | | Results for this | | RNA,QUANTITATIVE,PCR | e | 2:14 PM | | procedure are in the | | | | PDT | | results section. | + +--------+ + + + documented in this encounter Results Hepatitis C RNA, quantitative, PCR (02/10/2016 2:14 PM PDT) + + + + + + | Component | Value | Ref Range | Performed | Pathologist | | | | | At | Signature | + + + + + + | HCV-LOG 10 | 6.9 (A) | {Log_IU}/mL | EXTERNAL | | | | | | LAB | | + + + + + + | HCV | [id number] (A)Comment: | [iU]/mL | EXTERNAL | | | Quantitativ | REPORTABLE RANGE HCV RNA | | LAB | | | e | 1.2 TO 8.0 LOG IU/ML | | | | | | (15 TO | | | | | | 100,000,000IU/ML). | | | | | | THIS ASSAY WAS PERFORMED | | | | | | USING THE FDA APPROVED | | | | | | BEATRIZ | | | | | | COBASAMPLIPREP/SANAZ | | | | | | TAQMAN HCV TEST, V2.0. | | | | | | THE SANAZ | | | | | | AMPLIPREP/COBASTAQMAN | | | | | | HCV TEST, V2.0 IS NOT | | | | | | INTENDED FOR USE A | | | | | | SCREENING TEST FORTHE | | | | | | PRESENCE OF HCV IN BLOOD | | | | | | OR BLOOD PRODUCTS. | | | | + + + + + + + + | Specimen | + + | Blood specimen | | (specimen) | + + + +---------+ + + | Performing | Address | City/State/Zipcode | Phone Number | | Organization | | | | + +---------+ + + | EXTERNAL LAB | | | | + +---------+ + + HIV 1 and 2 Antibody Differentiation (02/10/2016 2:14 PM PDT) + + + + + + | Component | Value | Ref Range | Performed | Pathologist | | | | | At | Signature | + + + + + + | HIV 1 and 2 | NON REACTIVEComment: THE | | EXTERNAL | | | Ab | NON REACTIVE HIV 1/2 | | LAB | | | | ANTIBODY RESULT | | | | | | INDICATES THAT | | | | | | ANTIBODIES TO HIV 1/2 | | | | | | HAVE NOT BEEN DETECTED | | | | | | IN THIS SPECIMEN. THIS | | | | | | RESULT DOES NOT PRECLUDE | | | | | | PREVIOUS EXPOSURE OR | | | | | | INFECTION. | | | | + + + [...]
--- OUTSIDE RECORDS SUMMARY | ~2020-02-12 | XMS | Encounter Summary ---
Demographics + + + | Address | [address] | | | [place] [address] | + + + | Home Phone | | + + + | Preferred Language | Unknown | + + + | Marital Status | Single | + + + | Yazidism Affiliation | 1009 | + + + | Race | White | + + + | Ethnic Group | Not or | + + + Author + + + | Author | [facility] | | | and [place] | + + + | Organization | [facility] | | [...] Team Providers + +------+ + | Care Airframe And Powerplant Technician Name | Role | Phone | + +------+ + | Naern Nina PA-C | PCP | | + +------+ + Encounter Details +--------+ + + + + | Date | Type | Department | Care Team | Description | +--------+ + + + + | 06/06/ | Hospital | [facility] | Conversion | Lumbar radiculopathy | | 2018 | Encounter | [facility] | Transaction, | | | | | [address] | Provider Unknown | | | | | [address] [place], [place] | [phone] | | | | | [address] | | | | | | [phone] | Jose Gonzalez, | | | | | | [address] | | | | | | [address] [place], | | | | | | [place] [address] | | | | | | [phone] | | | | | | | [...] +--------+------+ + + | Comments: using e [employer], has information to quit | + + [...] + +--------+ + + + | XR LUMBAR SPINE 4 + | Routin | 06/06/2017 | | Results for this | | VW | e | 10:33 AM | | procedure are in the | | | | PST | | results section. | + +--------+ + + + documented in this encounter Results XR Lumbar Spine 4 + Vw (06/06/2017 10:33 AM PST) + + | Specimen | + + | | + + + + + | Impressions | Performed At | + + + | Leftward curvature of the lower lumbar spine measuring | | | approximately 18 degrees. Disc degeneration most prominent at L4-L5 | | | and L5-S1. Retrolisthesis of L4 on L5 measuring approximately 4 mm | | | in both flexion and extension views. No other areas of instability. | | | No acute fractures. Cholecystectomy. | | + + + + + + | Narrative | Performed At | + + + | NOHEMI ESPITIA 1960 XR LUMBAR SPINE 4 OR MORE VIEWS | | | 06/06/2017 10:33 AM INDICATION: Lumbar radiculopathy. | | | COMPARISON: August 07, 2013 TECHNIQUE: Lumbar spine series, 4 views. | | | | | + + + + + | Procedure Note | + + | Nikita Heran Conversion - 01/15/2019 5:31 AM SVETLANA ESPITIA1960XR LUMBAR | | SPINE 4 OR MORE VIEWS06/06/2017 10:33 AM INDICATION: Lumbar radiculopathy. COMPARISON: | | August 07, 2013 TECHNIQUE: Lumbar spine series, 4 views. IMPRESSION: Leftward curvature | | of the lower lumbar spine measuring approximately 18 degrees. Disc degeneration most | | prominent at L4-L5 and L5-S1. Retrolisthesis of L4 on L5 measuring approximately 4 mm in | | both flexion and extension views. No other areas of instability. No acute fractures. | | Cholecystectomy. | |COMPARISON: August 07, 2013 | | | |TECHNIQUE: Lumbar spine series, 4 views. | | | |IMPRESSION: | | | |Leftward curvature of the lower lumbar spine measuring approximately 18 degrees. Disc degen eration most prominent at L4-L5 and L5-S1. | | | |Retrolisthesis of L4 on L5 measuring approximately 4 mm in both flexion and extension views . No other areas of instability. | | | |No acute fractures. Cholecystectomy. | | | | | + + documented in this encounter Visit Diagnoses + + | Diagnosis | + + | Lumbar radiculopathy Thoracic or lumbosacral neuritis or radiculitis, unspecified | + + documented in this encounter"
--- OUTSIDE RECORDS SUMMARY | ~2020-02-12 | XMS | Encounter Summary ---
Demographics + + + | Address | [address] | | | [place] [address] | + + + | Home Phone [...] Author + + + | Author | [facility] | | | and [place] | + + + | Organization | [facility] | | | and [...] Team Providers + +------+ + | Care Production Control Clerk Name | Role | Phone | + +------+ + | Naren Nina PA-C | PCP | | + +------+ + Encounter Details +--------+ + + + + | Date | Type | Department | Care Team | Description | +--------+ + + + + | 08/21/ | Orders Only | [facility] | Misha Dye, | | | 2013 | | [facility] | [address] | | | | | [facility] | [address], | | | | | [address] | [place] [address] | | | | | [address], | [phone] | | | | | [place] [address] | | | | | | [phone] | | | +--------+ + + + [...] At | + + + | NOHEMI NAVARRO VOIDING CYSTOURETHROGRAM 08/21/2013 9:48 AM | | [...] + + | Dhiraj, Rad Conversion - 01/24/2019 9:17 AM PDT NOHEMI HOLLINS VOIDING | | CYSTOURETHROGRAM08/21/2013 9:48 AM [...]
--- OUTSIDE RECORDS SUMMARY | ~2020-02-12 | XMS | Encounter Summary ---
Demographics + + + | Address | [address] | | | [place] [address] | + + + | Home Phone [...] Author + + + | Author | [facility] | | | and [place] | + + + | Organization | [facility] | | [...] Team Providers + +------+ + | Care Field Artillery Officer Name | Role | Phone | + +------+ + | Hayden Acevedo MD | PCP | | + +------+ + Encounter Details +--------+ + + + + | Date | Type | Department | Care Team | Description | +--------+ + + + + | 09/14/ | Emergency | [facility] | Maximiliano Harrison, | Acute bronchitis | | 2015 | | MEDICAL CENTER | MD [address] | with COPD ([facility]); | | | | EMERGENCY CENTER | [place] [address] | Acute back pain | | | | [address] | [phone] | | | | | [place], [place] | | | | | | [address] | | | | | | [phone] | | | +--------+ + + + [...] documented as of this encounter ED Notes Maximiliano Harrison MD - 09/14/2014 8:12 PM PDTFormatting of this note might be different fro m the original. ED Provider Notes by Maximiliano Harrison MD at 09/14/142011 Author: Maximiliano Harrison MD Service: (none) Author Type: Physician Filed: 09/14/14 2104 Date of Service: 09/14/142011 Status: Signed Insole Beveler: Maximiliano Harrison MD (Physician) [facility] Department of Emergency Medicine No flowsheet data found. History of Present Illness Patient Identification Bisi Becker is a 54 y.o. female. Patient information was obtained from patient. History/Exam limitations: none. Patient presented to the Emergency Department by: Car Chief Complaint Chief Complaint Patient presents with Cough started yesterday Back Pain lower back pain "I have three diseases you know."; hx of stenosis, herniated discs, and s coliosis The patient complains of cough, fatigue, back apin. Onset of symptoms was yesterday, with a wornseing course since that time. The symptoms are described to be of moderate severity. The patient describes the quality and location of the symptoms as the following: last week w tara on vacation got a cold, cough, finished course of antibiotics (zithromax) 2 days ago, d rove 3 days home on bus, now got home and was around grandkids who were sick and she feels l jaden she got another cold. Congestion, cough, dyspnea. The patient also complains of back p ain after the long bus ride, says she usually takes percocet.. PCP: PER PT NONE Past Medical History Diagnosis Date Anxiety Hypertension Thyroid disease Depression Hepatitis C COPD (chronic obstructive pulmonary disease) Cancer skin cancer Other chronic pain lower back H pylori ulcer history of Joint pain Neuromuscular disorder sciatica Spinal stenosis of lumbar region Gout Osteoarthritis Unspecified visual disturbance Chronic kidney disease September 2013, acute kidney failure Sleep apnea has machine, hasn't used it yet Past Surgical History Procedure Laterality Date Hysterectomy Cholecystectomy Appendectomy Bladder surgery suspension [facility] 07/14/2013 [facility] 08/06/2013 Cataract extraction Breast surgery lumpectomy Colonoscopy section Eye surgery cataracts Cystocele and rectocele repair 12/24/2013 Procedure: CYSTOCELE AND RECTOCELE (A & P REPAIR); Surgeon: Misha Dye MD; Locatio n: [facility]; Service: CYTOTECHNOLOGIST; Laterality: N/A; Anterior portion was not completed Bladder suspension 12/24/2013 Procedure: BLADDER SUSPENSION - TVT; Surgeon: Misha Dye MD; Location: [facility]; Service: CYTOTECHNOLOGIST; Laterality: N/A; TVT exact Cystoplasty 12/24/2013 Procedure: CYSTOSCOPY - HYDRODISTENTION OF BLADDER; Surgeon: Misha Dye MD; Locati on: [facility]; Service: CYTOTECHNOLOGIST; Laterality: N/A; 70 degree scope. Indigo Emilia dye a vailable to Anesthesiologist Enterocele repair 12/24/2013 Procedure: ENTEROCELE RPR; Surgeon: Misha Dye MD; Location: [facility]; Servic e: CYTOTECHNOLOGIST; Laterality: N/A; Foraminotomy Left 01/30/2014 Procedure: FORAMINOTOMY; Surgeon: Juan Alberto Worrell MD; Location: [facility]; Service: Neurosurgery; Laterality: Left; L 5 Prior to Admission medications Medication Sig Start Date End Date Taking? Authorizing Provider benzonatate (TESSALON) 100 MG capsule Take 1 capsule by mouth 3 (three) times daily as need ed for Cough. 10/31/13 ANURAG Winters buPROPion (WELLBUTRIN XL) 150 MG 24 hr tablet Take 150 mg by mouth 2 (two) times daily. Not sure of dose Historical Provider ergocalciferol (DRISDOL) 36119 UNITS capsule Take 1 capsule by mouth once a week. 08/29/13 ANURAG Winters famotidine (PEPCID) 20 MG tablet Take 1 tablet by mouth 2 (two) times daily. 07/21/14 ANURAG Johnson FLUoxetine (PROZAC) 40 MG capsule Take 1 capsule by mouth daily. 06/25/13 ANURAG Winters gabapentin (NEURONTIN) 100 MG capsule take 1 capsule by mouth twice a day 03/10/14 Rosemary Perea MD gabapentin (NEURONTIN) 300 MG capsule take 2 capsules by mouth every evening 04/11/14 Tristin Perea MD ipratropium-albuterol (COMBIVENT RESPIMAT) 20-100 MCG/ACT inhaler Inhale 2 puffs into the l ungs every 6 (six) hours as needed for Wheezing. 12/22/13 ANURAG Winters levothyroxine (SYNTHROID) 25 MCG tablet Take 1 tablet by mouth every morning before breakfa st. 04/14/14 ANURAG Winters lisinopril (ZESTRIL) 10 MG tablet Take 1 tablet by mouth daily. 04/14/14 ANURAG Winters loratadine (CLARITIN) 10 MG tablet Take 1 tablet by mouth daily. 08/22/13 ANURAG Winters LORazepam (ATIVAN) 1 MG tablet Take 1 tablet by mouth every 6 (six) hours as needed for Anx iety. 12/12/13 ANURAG Winters metaxalone (SKELAXIN) 800 MG tablet Take 1 tablet by mouth 3 (three) times daily as needed for Pain. 03/25/14 03/25/15 ANURAG Rae OLANZapine (ZYPREXA) 10 MG tablet Take 1 tablet by mouth nightly. 06/27/13 ANURAG Winters omeprazole (PRILOSEC) 20 MG capsule Take 20 mg by mouth every morning before breakfast. Historical Provider oxyCODONE-acetaminophen (PERCOCET) 10-325 MG per tablet Take 1 tablet by mouth daily as nee ded for Pain. 03/23/14 Rosemary Perea MD promethazine (PHENERGAN) 25 MG tablet Take 1 tablet by mouth every 6 (six) hours as needed for Nausea. 03/25/14 ANURAG Rae ribavirin (COPEGUS) 200 MG tablet Take 3 tablets by mouth 2 (two) times daily. 02/25/1403/05 Delilah Santos MD Allergies Allergen Reactions Morphine Other (See Comments) Used BOTTLE SORTER and it lowered her BP And medication was stopped History Social History Marital Status: Single Spouse Name: N/A Number of Children: N/A Years of Education: N/A Occupational History Not on file. Social History Main Topics Smoking status: Current Every Day Smoker -- 0.50 packs/day for 38 years Smokeless tobacco: Never Used Comment: using e cigs, has information to quit Alcohol Use: 0.5 oz/week 1 drink(s) per week Comment: occasionally Drug Use: Yes Special: Marijuana Comment: has used marijauna (in Dr darby in September 2013) Sexual Activity: Not Currently Control/ Protection: Surgical-Self Other Topics Concern Not on file Social History Narrative Family History Problem Relation Age of Onset Breast cancer Sister Skin cancer Sister Ovarian cancer Sister Heart disease Mother Diabetes Father Diabetes type II Father Review of Systems Constitutional: Negative for: fever, chills, or weight loss Eyes: Negative for: decreased vision or irritated eyes Nose: Negative for: nosebleed Throat: Negative for: mouth sores Cardiovascular/Respiratory: Negative for: chest pain, Gastrointestinal: Negative for: abdominal pain, vomiting, diarrhea, black or bloody stools Genitourinary: Negative for: dysuria, hematuria, urinary problems Musculoskeletal: Negative for: myalgias and arthralgias Skin: Negative for: laceration or lesion Neuro and psych: Negative for: fainting, head injury, seizure, trouble walking Endocrine/Heme/Lymph: Negative for: swollen lymph nodes, easy bruising All systems reviewed and otherwise negative Physical Exam BP 137/86 | Pulse 105 | Temp(Src) 97.6 F (36.4 C) (Oral) | Resp 22 | SpO2 97% Vital signs reviewed and tachycardic Pulse Oximetry interpretation: Normal General: Alert, in no apparent distress Eyes: Normal inspection, pupils equal and round, non-icteric ENT: Ears normal Nose normal Pharynx normal Neck: Normal inspection Supple No lymphadenopathy No meningismus Cardiovascular: Rate and rhythm normal No murmurs Respiratory: Breath sounds normal bilaterally Abdomen: Soft, non-tender, non-distended No guarding or rebound Genitourinary: Deferred Rectal exam: Deferred Back: Normal inspection Skin: Color normal Warm and dry No rash Neuro: No motor deficit No sensory deficit No confusion Medical Decision Making and Emergency Department Course This patient is presenting with a cough. The patient is well appearing and is in no distre ss. The differential diagnosis for this patient's cough includes, but is not limited to, up per respiratory infection, viral bronchitis, bacterial bronchitis, viral pneumonia, bacteria l pneumonia, atypical pneumonia, asthma and bronchospasm. There are no signs of severe seps is or respiratory failure at this time. I will order a chest X-ray to assess for pneumonia, effusion, pneumothorax, or other serious complications. I recommend symptotic treatment an d will discuss with the patient potential risks and benefits of antibiotics. Back pain normal neuro I find that the patient has back pain but no signs of an emergent condition. There is no e vidence of spinal cord compression, no signs of cauda equina syndrome, no evidence of an epi dural abscess, and no signs of an emergent cause of the pain. I will treat the patient symp tomatically and subsequently have them follow up with their PMD. ED Department Course No infiltrate on xray, but COPD and high risk, improved with oral steroid and percocet here . The patient will follow up with their doctor for further outpatient treatment as indicate d. Agrees to return to the ED if symptoms worsen or if any other concerns. Records Reviewed Old medical records. Radiology Evaluation Imaging Results XR chest PA and lateral (Preliminary result) Result time: 09/14/14 20:43:27 ED Interpretation Documented by Maximiliano Harrison MD (09/14/14 20:43:27, [facility] Emergency Department, Emergency Medicine) This ED initial read occurred during the ED course and management. The ED interpretation at the time the patient was being clinically managed, and prior to the radiology final read interpretation was: no infiltrate or effusion Available radiology studies reviewed and interpreted contemporaneously by me. ED Diagnoses Final diagnoses Acute bronchitis with COPD Acute back pain Disposition: ED Disposition Discharge Condition at discharge: Stable Follow-up Information Follow up With Details Comments Contact [facility] [address] [place] [address] Per Pt None Discharge Medications: Discharge Medication List as of 09/14/2014 8:53 PM START taking these medications Details levofloxacin (LEVAQUIN) 500 MG tablet Take 1 tablet by mouth daily., Starting 09/14/2014, Un til Jamilah 09/24/14, Print oxyCODONE-acetaminophen (PERCOCET) 5-325 MG per tablet Take 1-2 tablets by mouth every 4 (f our) hours as needed for Pain., Starting 09/14/2014, Until Jamilah 09/24/14, Print predniSONE (DELTASONE) 20 MG tablet Take 3 tablets by mouth daily., Starting 09/15/2014, Unt il 09/19/14, Print Procedures Additional Documentation Procedures Maximiliano Harrison MD 09/14/142103 onversion Transacti on, Provider Unknown - 09/14/2014 8:08 PM PDTFormatting of this note might be different fro m the original. ED Notes by Rosalinda Ortiz RN at 09/14/142007 Author: Rosalinda Ortiz RN Service: (none) Author Type: Registered Nurse Filed: 09/14/142013 Date of Service: 09/14/142007 Status: Addendum Insole Beveler: Rosalinda Ortiz RN (Registered Nurse) Related Notes: Original Note by Rosalinda Ortiz RN (Registered Nurse) filed at 09/14/142008 Pt states "I just got here from [place], before leaving I had bronchitis and was taking z- smiley. I got here and this baby had a cold and since I have COPD I usually get very sick and pneumonia. I also have a CARR[place] and back." Rosalinda Ortiz RN 09/14/142013 docume nted in this encounter Plan of Treatment Not on filedocumented as of this encounter Procedures + +--------+ + + + | Procedure Name | Priori | Date/Time | Associated Diagnosis | Comments | | | ty | | | | + +--------+ + + + | XR CHEST 2 VIEWS | Routin | 09/14/2014 | | Results for this | | | e | 8:42 PM | | procedure are in the | | | | PDT | | results section. | + +--------+ + + + documented in this encounter Results XR Chest 2 Vws (09/14/2014 8:42 PM PDT) + + | Specimen | + + | | + + + + + | Impressions | Performed At | + + + | No evidence of acute disease or active process. Specifically, no | | | infiltrate or residual lesion | | + + + + + + | Narrative | Performed At | + + + | History: 54 year-old female with shortness of breath. Technique: | | | Frontal and lateral computer enhanced radiographic examination of the | | | chest. 30 March 2014 prior study for comparison. Findings: | | | Cardiomediastinum is normal. Lungs are symmetrically inflated | | | without pneumothorax, infiltrate, or effusion. Patchy infiltrate seen | | | earlier have essentially resolved Bones and soft tissues are | | | normal for age. | | + + + + ----+ | Procedure Note | + ----+ | Dhiraj, Rad Conversion - 01/17/2019 12:26 AM PDT History: 54 year-old female with | | shortness of breath. Technique: Frontal and lateral computer enhanced radiographic | | examination of the chest. 30 March 2014 prior study for comparison. Findings: | | Cardiomediastinum is normal. Lungs are symmetrically inflated without pneumothorax, | | infiltrate, or effusion. Patchy infiltrate seen earlier have essentially resolved Bones | | and soft tissues are normal for age. IMPRESSION: No evidence of acute disease or active | | process. Specifically, no infiltrate or residual lesion | |Bones and soft tissues are normal for age. | | | |IMPRESSION: | |No evidence of acute disease or active process. Specifically, no infiltrate or residual les ion | | | | | + ----+ documented in this encounter Visit Diagnoses + + | Diagnosis | + + | Acute bronchitis with COPD (HCC) Obstructive chronic bronchitis with acute bronchitis | + + | Acute back pain Backache, unspecified | + + documented in this encounter
--- OUTSIDE RECORDS SUMMARY | ~2020-02-12 | XMS | Encounter Summary ---
Demographics + + + | Address | [address] | | | [place] [address] | + + + | Home Phone [...] Author + + + | Author | [facility] | | | and [place] | + + + | Organization | [facility] | | | [...] Team Providers + +------+ + | Care Jewel Bearing Maker Name | Role | Phone | + +------+ + | Hayden Acevedo MD | PCP | | + +------+ + Encounter Details +--------+ + + + + | Date | Type | Department | Care Team | Description | +--------+ + + + + | 08/19/ | Hospital | [facility] | Conversion | LBP radiating to | | 2013 | Encounter | [facility] | Transaction, | left leg | | | | [address] | Provider Unknown | | | | | [place], [place] | | | | | | [address] | (Fax) | | | | | [phone] | | | +--------+ + + + [...] Hearn - 01/18/2019 1:22 AM PDT NOHEMI GODINEZ [...]
--- OUTSIDE RECORDS SUMMARY | ~2020-02-12 | XMS | Encounter Summary ---
Demographics + + + | Address | [address] | | | [place] [address] | + + + | Home Phone | | + + + | Preferred Language | Unknown | + + + | Marital Status | Single | + + + | Caodaism Affiliation | [id number] | + + + [...] Team Providers + +------+ + | Care Automotive Title Clerk Name | Role | Phone | + +------+ + | Naren Vivas PA-C | PCP | | + +------+ [...] | | | | | radiculopath | [address] | [address] | | | | | y Facet | [place], | [place], [place] | | | | | arthritis of | [place] [address] | [address] | | | | | cervical | Phone: | Phone: | | | | | region | [phone] | [phone] | | | | | Chronic | Fax: | Fax: | | | | | bilateral | [phone] | [phone] | | | | | low back [...] | Physical | Diagnoses | Stewart, | Henri Stewart | | | Services | Medicine and | Cervicalgia | Henri Joseph MD | Elizabeth Joseph MD [address] | | | Required | Rehabilitatio | Cervical | [address] | | | | n | radiculopath | [address] | [place], | | | | | y Left arm | [place], | [place] [address] | | | | | numbness | [place] [address] | Phone: | | | | | Left arm | Phone: | [phone] | | | | | weakness | [phone] | Fax: | | | | | Procedures | Fax: | [phone] | | | | | DOS 01/04/16 | [phone] | | +--------+ + + + + [...] | | | | | radiculopath | [address] | [address] | | | | | y Left arm | [place], | AVE | | | | | numbness | [place] [address] | [place], [place] | | | | | Left arm | Phone: | [phone] | | | | | weakness | [phone] | Phone: | | | | | Facet | Fax: | [phone] | | | | | arthritis of | [phone] | Fax: | | | | | cervical | | [phone] | | | | | region | [...] Closed | | Physical | Diagnoses | Sangeetha, | Henri Stewart | | | | Medicine and | Chronic | Naren Hilton, | Elizabeth Joseph MD [address] | | | | Rehabilitatio | neck pain | PA-C [address] | [address] | | | | n | Low back | [place] | [place], | | | | | pain Mid | WAY | [place] [address] | | | | | back pain | [place], | Phone: | | | | | | [place] [address] | [phone] | | | | | | Phone: | Fax: | | | | | | [phone] | [phone] | | | | | | Fax: | | | | | | | [phone] | | +--------+--------+ + + + + Encounter Details +--------+---------+ + + + | Date | Type | Department | Care Team | Description | +--------+---------+ + + + | 12/14/ | Office | [facility] [place] | Henri Stewart, | Cervicalgia (Primary | | 2016 | Visit | PHYSIATRY [address] | MD [address] | Dx); Cervical | | | | [address] | [place] | radiculopathy; Left | | | | [place] | [address] | arm numbness; Left | | | | [address] | | arm weakness; Facet | | | | [phone] | | arthritis of | | | | | | cervical region | | | | | | (HCC); Chronic | | | | | | [...] physical therapy within one week, please contact [facility]. Once you have completed physical therapy please continue the home exercise progr am as outline by physical therapy, indefinitely. Please attend the injection appointment with Ramon Mijares MD. If his office has not co ntacted you within one week, to schedule the injection, please contact my clinic. Your inje ction will be performed at [facility]. Please take note of weather your pain is significantly reduced in the hours immediately following the injecti on. Return to the clinic for nerve conduction study of the left upper extremity. A pain clinic consult has been requested at [facility]. documented in this encounter Progress Notes Henri Stewart MD - 12/15/2015 4:38 PM PDTThis office note has been dictated. Report Confirmation# [id number] signed by Henri Stewart MD at 12/15/2015 5:22 PM PDTdocumented in this encounter Consult Notes Henri Stewart MD - 12/15/2015 5:22 PM PDT [facility] PHYSIATRY [address] [facility] [id number] OFFICE CONSULTATION HENRI STEWART JR, MD Patient: NOHEMI ESPITIA Admitting: MR #: [id number] LOC: PT TYPE: Adm Date: 12/15/2015 : 1960 DATE OF : 1960. CONSULT REQUESTED BY: Naren Vivas PA-C. DATE OF SERVICE: 12/15/2015. PATIENT IDENTIFICATION: A 55-year-old female with neck pain and back pain. HISTORY OF PRESENT ILLNESS: Ms. Espitia reports that she has a chronic history of back pa in. She indicates that she has lumbar degenerative disc disease. She has had previous erich k surgery with Dr. Worrell. She indicates that previously she had injections into her back t o manage her pain. She indicates that she previously had her back pain managed by Dr. Robles pittman. She indicates that she previously was prescribed narcotic medications, hydrocodone, to manage her pain. She is very much hoping to "have something for the pain" today. She was offered numerous nonnarcotic medications to manage symptoms today and she redirects, christos cating that she is really hoping to have "something for the pain." When I discussed with josiah ortiz that I do not routinely prescribe opiate medications since I do not run an opiate managem ent pain clinic, she wondered whether or not I could prescribe her a pain patch. Today we discussed the risks of opiate medications including respiratory suppression, pedro ction, , tolerance, dependence. We discussed the association between opiate medicatio ns and depression. She has depression. She lost her daughter to a drunk charter and tour bus driver motor vehi doug accident approximately 1 year ago. She is tearful during today's appointment as she d iscusses her pain as well as feelings of depression. She denies suicidal ideation. She does have underlying pathology that would reasonably result in pain. Her imaging of th e neck was reviewed. Her neck imaging is from 02/2015. She has multiple levels with cervi chiki facet arthritis. She has mild central canal stenosis. She has severe left and mild ri ght neural foraminal narrowing at C4-5. She has moderate left and mild right neural carlos inal narrowing at C5-6. She has mild right neural foraminal narrowing at C3-4. She has ad vanced facet arthritis, greater on the left, at multiple levels throughout the neck. She h as facet arthritis at C6-7, C5-6, C4-5, C3-4. There is mild to moderate facet arthritis e chele at C2-3. She reports that her neck pain is worse than the back. She indicates that left neck pain is worse than the right. She indicates that neck pain has been present for 1 year. Neck p ain is an 8/10 on a numerical pain scale. Pain is constant in timing. Pain is burning in quality. Pain travels into the left upper extremity over the left shoulder, left radial fo rearm, and then into the left thumb. She reports numbness in the left thumb and left hand at times. She reports walking, doing dishes, talking on the phone, lying on her left side exacerbates her pain and left arm symptoms. She indicates that pain is reduced by lying o n her right side. She reports weakness in the left hand which she describes as loss of gri p strength and frequently dropping objects. She indicates that numbness in the left hand w akes her from sleep. She is unsure if driving will make her hand numb because she does not drive. She reports that she is on disability and uses provided transportation. She reports low back pain. Back pain is bilateral. Back pain has been present for 10 yea rs. Pain is constant in timing. Pain is stabbing in quality. She had back surgery approx imately 2 years ago. She reports that it was not a fusion surgery. She reports that the s urgery was at approximately L5-S1 level, but she is not certain. Back pain is a 6 or 7/10 on a numerical pain scale. Pain is increased by sitting. Pain is increased by walking to o far. Pain is worse in the morning. Pain is increased with any activity. Pain is reduce d if she lies on her right side. Pain radiates into the right buttock. She reports that s he has numbness in both feet, more now than in the past. She had numbness in the past wit h previous diagnosis of lumbar radiculopathy. Medical record reveals a previous nerve stud y which reveals lumbar radiculopathy. She reports weakness in both legs which she describe s as difficulty standing up from a seated position. She denies incontinence of bowel or b ladder. She denies saddle anesthesia. In regards to her neck, she has never had physical therapy, surgery, interventional inject ions, acupuncture or chiropractic treatments. For her back, she reports that she tried to have physical therapy but her insurance would not cover it. She indicates that she had osbaldo jannette 2 years ago. She reports that she has had numerous injections into her back in the p ast. She reports that she has used hydrocodone 10/325 and methocarbamol to manage her pain in the past. She would very much like to be on those medications again. She reports that her current primary care provider, Naren Vivas, is not prescribing those medications. S he indicates that her doctor tried to send her to the pain clinic, [facility], f or pain management. She indicates that [facility] does not accept her insurance. She has never tried going to [facility]. We discussed today that [facility] cooley in clinic and [facility] are not likely to manage her because of where she lives. ALLERGIES: MORPHINE and CODEINE. CURRENT MEDICATIONS: Tylenol 650 mg every 4 hours. Albuterol 2 puffs 4 times per day. Combivent inhaler. Abilify 10 mg nightly. Vitamin D3 5000 units daily. Cymbalta 60 mg nightly. Levothyroxine 25 mcg daily. Claritin 10 mg daily. Ativan 1 mg 2 times daily. Robaxin 750 mg daily. Asmanex inhaler. Prilosec 20 mg 2 times daily. Trazodone 100 mg 1-1/2 tablets nightly. Gabapentin 100 mg 3 capsules at bedtime. REVIEW OF SYSTEMS: She denies nausea, vomiting, fever, chills, shortness of breath, or ch est pain. She does report depression. Denies suicidal ideation. She denies skin breakdow n or rash. Denies incontinence of bowel or bladder. Denies lymph gland swelling. All ot her review of systems negative. PAST MEDICAL HISTORY: She has history of anxiety, asthma, depression, COPD, reflux, hyper tension, and thyroid disease. Has history of morbid obesity, bipolar 2 disorder, viral hep atitis. She is a tobacco user. PAST SURGICAL HISTORY: She has had appendectomy, C-sections, cholecystectomy, hysterectom y. FAMILY MEDICAL HISTORY: Both parents are . In her family there is history of str sharon, diabetes, heart failure, breast cancer, ovarian cancer. She denies mental health issu es running in the family. SOCIAL MEDICAL HISTORY: She denies consumption of alcohol. She indicates that she smokes every day. She has been smoking a pack per day. She has been smoking for 35 years. She plans to quit smoking on her daughter's birthday end of December. She has set a quit date. Gia wiggins reports that she has used drugs in the past, though she reports that it has been more th an a few years since the last time she has used any illicit drugs. PHYSICAL EXAMINATION: VITAL SIGNS: Heart rate 84, respiratory rate 16, blood pressure 128/80, weight 230 pounds . GENERAL: She is tearful today. As we discussed that I would not be prescribing her opiat es today, she became tearful. She indicates that she "just wants something for the pain." I offered her other medications to adjust pain. She is interested in these to some degree , but disappointed that she will not be receiving hydrocodone today. HEENT: Extraocular m uscles intact. Sclerae clear. Pupils equal and reactive. NECK: Limited range of motion. Spurling's test positive to the left, negative to the rig ht. Axial loading test positive. HEART: Regular rate and rhythm. No murmurs, no gallops. LUNGS: Clear to auscultation. No wheezing, no crackles. ABDOMEN: Obese, distended, positive for bowel sounds. BACK: Symmetric. Seated straight leg raise negative. Josse's test negative. Diffuse tenderness to palpation over lumbar paraspinal muscles. EXTREMITIES: No clubbing, cyanosis or edema. NEUROLOGICAL: 4/5 hand owner spa director on the left, compared to 5/5 on the right. There is 5/5 bicep s, triceps, wrist dorsiflexion, finger abduction strength bilaterally. There is reduced se nsation over left upper extremity in C6 dermatome pattern. Sensation intact in right upper extremity. There is reduced sensation in both lower extremities in L5 pattern. There is some weakness in lower extremities with 4/5 knee flexion strength, ankle dorsiflexion stre ngth bilaterally. Reflexes 2+ normal over patella bilaterally. Reflexes could not be elic ited at the Achilles. No clonus to either ankle. Gait is antalgic. DATABASE: Cervical x-rays personally reviewed by me from 02/26/2015. Please see review of the MRI results above. Nerve conduction study, 09/2013, reviewed by me demonstrates severe left L5 radiculopathy. She has had subsequent surgery. Previous lumbar imaging personally reviewed by me demonstrates degenerative disc disease, L4-5, L5-S1. This imaging was done prior to her back surgery. ASSESSMENT: 1. Cervicalgia, ICD-10 M54.2. 2. Cervical radiculopathy, left C6 by clinical presentation, ICD-10 M54.12. 3. Left arm numbness, ICD-10 R20.0. 4. Left hand weakness, ICD-10 M62.81. 5. Cervical facet arthritis, multiple levels, ICD-10 M46.92. 6. Chronic bilateral back p ain with bilateral sciatica, ICD-10 M54.41 and G89.29. 7. Tobacco dependence, ICD-10 F17.200. 8. Depression, ICD-10 F32.9. 9. Bilateral leg weakness, ICD-10 M62.81. PLAN: Ms. Espitia is instructed to quit smoking. We discussed smoking and its contributi on towards degenerative changes of the spine. We discussed its contribution towards lung d isease, heart disease, cancer, and . She is encouraged to set a quit date. She is in structed to taper and quit. We discussed medications that may be helpful in smoking cessa tion. We discussed that smoking cessation will be required by insurance as well as most sheehan rgeons before considering moving forward with any type of surgical treatment for neck or ba ck. Ms. Espitia will have cervical epidural steroid injection in hopes of treating cervical ra diculopathy. I have requested physical therapy for neck and back. I have asked her to try to work with her insurance and see if it is possible for her to get physical therapy as I believe this would be helpful for managing her neck and back pain. Surgical intervention may be required for neck and/or back. She will need to quit smoking first. Cymbalta dose may be increased. May help with underlying depression as well as neuropathi c pain. Cymbalta dose will be increased to 60 mg plus 30 mg for a total of 90 mg each nigh t. She has been asked to taper up gabapentin. Gabapentin will be tapered up starting at 3 00 mg nightly, hopefully to a dose of 300 mg one in the morning, one in the afternoon, and two at night. She has been encouraged to lose weight through diet and exercise. We discussed weight and its impact on back pain. She will have cervical epidural steroid injection with Dr. Mijares. She will return to clinic for nerve conduction study and EMG of left upper extremity to evaluate for cervical radiculopathy versus carpal tunnel syndrome versus both. Ms. Espitia is high risk for opiate dependence. She has had some opiate use in the past. She requests opiate medications during today's appointment. She has history of bipolar di sorder. She has depression. I discussed that opiate medications can make depression worse. I discussed that I do not do opiate management through my clinic. She indicates that sh e has already been declined from [facility] because of her insurance coverage. A t this point, I am requesting a pain management consultation at the [facility]. More than an hour was spent today with Ms. Espitia. More than 3 minutes was spent discuss ing smoking cessation plan with Ms. Espitia. In summary, she will increase Cymbalta. She will taper up gabapentin. She will have physi chiki therapy for neck and back if possible. She will have epidural steroid injection. She will have nerve conduction study of left upper extremity. Future considerations include fu rther tapering up of gabapentin, additional injections, new imaging of neck and back. Surg ical consultation is a consideration once she has stopped smoking. Thank you for allowing me to be involved in the care of your patient. If you have any ques tions regarding the care of Ms. Espitia, please do not hesitate to call. HENRI STEWART JR, MD Dictated by HENRI STEWART JR, MD 12/15/2015 17:22:20 Transcribed on 12/16/2015 16:02:59 by carmela job# [id number] Confirmation #: [id number] cc: NAREN SANGEETHA VIVAS PAC Tdocumented in this encounter Plan of Treatment + + +--------+ + + | Name [...] | | | | | ([facility]) Chronic | | | | | [...] | | | | | ([facility]) Chronic | | | | | [...] limbs | + + documented in this encounter
--- OUTSIDE RECORDS SUMMARY | ~2020-02-12 | XMS | Encounter Summary ---
Demographics + + + | Address | [address] | | | [place] [address] | + + + | Home Phone | | + + + | Preferred Language | Unknown | + + + | Marital Status | Single | + + + | Sabianism Affiliation | 1009 | + + + | Race | White | + + + | Ethnic Group | Not or | + + + Author + + + | Author | [facility] | | | and [place] | + + + | Organization | [facility] | | [...] Team Providers + +------+ + | Care Weighmaster Lead Name | Role | Phone | + +------+ + | Naren Nina PA-C | PCP | | + +------+ + Encounter Details +--------+ + + + + | Date | Type | Department | Care Team | Description | +--------+ + + + + | 01/29/ | Orders Only | [facility] | Conversion | | | 2014 | | INFECTIOUS DISEASE | Transaction, | | | | | [address] | Provider Unknown | | | | | [place], [place] | | | | | | [phone] | (Fax) | | | | | [phone] | | | +--------+ + + + [...] + + + + | FIBROSURE | [id number]-[id number]: minimal | | EXTERNAL | | | [...] + + + + | Necroinflam | [id number]: significant | | EXTERNAL | | | mat | activity | | LAB | | | Activity | | | | | | Grade | | | | | + + + + + + | Alpha | 347 (A) | 106 - 279 | EXTERNAL | | | 2-Macroglob | | | LAB | | | ulins, Qn | | | | | + [...] + + + | HCV-LOG 10 | [id number] (A) | 0 Log IU/ml | EXTERNAL [...] + + + + | Non- | 4.18 | 10 | EXTERNAL | | | Red Blood | | | LAB | | | Cells | | | | | | Counted | | | [...]
--- OUTSIDE RECORDS SUMMARY | ~2020-02-12 | XMS | Encounter Summary ---
Demographics + + + | Address | [address] | | | [place] [address] | + + + | Home Phone | | + + + | Preferred Language | Unknown | + + + | Marital Status | Single | + + + | Restorationist Affiliation | [id number] | + + + | Race | White | + + + | Ethnic Group | Not or | + + + Author + + + | Author | [facility] | | | and [place] | + + + | Organization | [facility] | | | [...] Team Providers + +------+ + | Care Dry Molder Name | Role | Phone | + +------+ + | Naren Nina PA-C | PCP | | + +------+ + Encounter Details +--------+ + + + + | Date | Type | Department | Care Team | Description | +--------+ + + + + | 01/07/ | Orders Only | [facility] | Provider, | | | 2019 | | SYSTEM GENERIC OP | MD [address] | | | | | [address]VERSION [address] | [address] | | | | | [address] [place], [place] | [place] [address] | | | | | [address] | | | | | | [phone] | | | +--------+ + + + [...]
--- OUTSIDE RECORDS SUMMARY | ~2020-02-12 | XMS | Encounter Summary ---
Demographics + + + | Address | [address] | | | [place] [address] | + + + | Home Phone [...] | Author | [facility] | | | and [place] | + + + | Organization | [facility] | | | [...] Team Providers + +------+ + | Care Stockroom Inventory Clerk Name | Role | Phone | [...] PHYSIATRY [address] | MD [address] | | | | | [address] | [place], [place] | | | | | [place], [place] | [address] | | | | | [address] | | | | | | [phone] | | | +--------+ + + + [...]
--- OUTSIDE RECORDS SUMMARY | ~2020-02-12 | XMS | Encounter Summary ---
Demographics + + + | Address | [address] | | | [place] [address] | + + + | Home Phone [...] Team Providers + +------+ + | Care High School Auto Repair Teacher Name | Role | Phone | + +------+ + | Hayden Acevedo MD | PCP | | + +------+ + Encounter Details +--------+ + + + + | Date | Type | Department | Care Team | Description | +--------+ + + + + | 08/21/ | Hospital | [facility] | Conversion | | | 2014 | Encounter | [facility] | Transaction, | | | | | [address] | Provider Unknown | | | | | [place], [place] | [phone] | | | | | [address] | | | | | | [phone] | Misha Dye MD | | | | | | [address] | | | | | | [address] [place], [place] | | | | | | [address] | | | | | | | [...]
--- OUTSIDE RECORDS SUMMARY | ~2020-02-12 | XMS | Encounter Summary ---
Demographics + + + | Address | [address] | | | [place] [address] | + + + | Home Phone [...] Author | [facility] | | | and [place] | + + + | Organization | [facility] | | [...] Providers + +------+ + | Care Director Voice Name | Role | Phone | + +------+ + | Naren Nina PA-C | PCP | | + +------+ + Encounter Details +--------+ + + + + | Date | Type | Department | Care Team | Description | +--------+ + + + + | 10/03/ | Orders Only | [facility] | Conversion | | | 2016 | | INFECTIOUS DISEASE | Transaction, | | | | | [address] | Provider Unknown | | | | | [place], [place] | | | | | | [address] | (Fax) | | | | | [phone] | | | +--------+ + + + [...] | + +-------+ + + + | Non- | 3.98 | 3.8 - 5.2 10 | EXTERNAL | | | Red [...] g/dL Ref Range: | | | 0.6-1.5 Lockwood/Lamda [employer] .[facility]wood [facility] | | | Result: 3.55 mg/dL Ref | | | Range: 0.33-1.94 .Lambda [facility] | | | Result: 2.28 mg/dL Ref Range: 0.57-2.63 | | | .Lockwood/Lambda F[facility] Ratio Result: 1.56 | | | [...] + + + + | Non- | 4.64 | 3.8 - 5.2 10 | EXTERNAL | | | Red [...]
--- OUTSIDE RECORDS SUMMARY | ~2020-02-12 | XMS | Encounter Summary ---
Demographics + + + | Address | [address] | | | [place] [address] | + + + | Home Phone [...] Team Providers + +------+ + | Care Pumping Station Engineer Name | Role | Phone | + +------+ + | Naren iNna PA-C | PCP | | + +------+ + Reason for Visit + +--------+ + | Reason | Onset | Comments | | | Date | | + +--------+ + | Arm Pain | 02/15/ | | | | 2015 | | + +--------+ + Encounter Details +--------+ + + + + | Date | Type | Department | Care Team | Description | +--------+ + + + + | 02/15/ | Telephone | [facility] | Henri Stewart, | Arm Pain | | 2016 | | PHYSIATRY [address] | MD [address] | | | | | [address] | [place] | | | | | [place] | [address] | | | | | [address] | | | | | | [phone] | | | +--------+ + + + [...] Telephone Encounter - Allison Pride RN - 02/16/2016 9:23 AM PDTPatient called back. Kevin ramirez describes "shock" like pain to her left shoulder. Patient states pain is similar to pa in She had previously described to Dr. Stewart. Patient is advised at this time to start and compete Physical therapy that was ordered by Dr. Stewart. Patient advised that at the last vis it this was Dr. Stewart's recommended course of action, and that likely he has nothing to add at this time. Patient advised that future considerations may be to have a referral to Neuro[facility]gery if she has completed and failed PT. Patient advised to contact our office or go to [facility] if pain is unbearable. Patient states understanding. Patient inquires if Dr. Stewart would like her to complete new imaging. Patient advised that at this point we would like he r to complete therapy first, unless symptoms were greatly changed, in which case reevaluatio n in the office would be needed. elephone Encounter - Mackenzie Mcclelland - 02/16/2016 9:[address] ating she's having a lot of left arm pain and it kind of feels like shocks per patient. Nika ent would like to know what she should or if there's anything that can be done for her. Juli lamb advise documented in thi s encounter Plan of Treatment Not on filedocumented as of this encounter Visit Diagnoses Not on filedocumented in this encounter
--- OUTSIDE RECORDS SUMMARY | ~2020-02-12 | XMS | Encounter Summary ---
Demographics + + + | Address | [address] | | | [place] [address] | + + + | Home Phone [...] + + + | Author | [facility] | | | and [place] | + + + | Organization | [facility] | | | and [...] Team Providers + +------+ + | Care Investigative Analyst Name | Role | Phone | + +------+ + | Naren Nina PA-C | PCP | | + +------+ + Encounter Details +--------+ + + + + | Date | Type | Department | Care Team | Description | +--------+ + + + + | 06/15/ | Orders Only | [facility] | Conversion | | | 2017 | | INFECTIOUS DISEASE | Transaction, | | | | | [address] | Provider Unknown | | | | | [place], [place] | | | | | | [address] | (Fax) | | | | | [phone] | | | +--------+ + + + [...] + + + + | FIBROSURE | [id number]: CIRRHOSIS | | EXTERNAL | | | [...] + + + + | Necroinflam | [id number]: SEVERE | | EXTERNAL | | | [...] + + + + | HCV | [id number] (A) | 0 IU/ml | EXTERNAL | [...] +-------+ + + + | Non- | 4.52 | 10 | EXTERNAL | [...]
--- OUTSIDE RECORDS SUMMARY | ~2020-02-12 | XMS | Encounter Summary ---
Demographics + + + | Address | [address] | | | [place] [address] | + + + | Home Phone [...] Author | [facility] | | | and [place] | + + + | Organization | [facility] | | | [...] Providers + +------+ + | Care Book Critic Name | Role | Phone | + +------+ + | Naren Nina PA-C | PCP | | + +------+ + Encounter Details +--------+ + + + + | Date | Type | Department | Care Team | Description | +--------+ + + + + | 02/10/ | Orders Only | [facility] | Danielle, | | | 2013 | | INFECTIOUS DISEASE | MD [address] | | | | | [address] | [address] | | | | | [place], [place] | [place] [address] | | | | | [address] | [phone] | | | | | [phone] | | | +--------+ + + + [...] Notes by Delilah Santos MD at 10/22/13 6186 Author: Delilah Santos MD Service: (none) Author Type: Physician Filed: 10/22/13 5212 Encounter Date: 10/22/2013 Status: Signed Flatlock Sewing Machine Operator: Delilah Santos MD (Physician) Subjective: Patient ID: Bisi Becker is a 53 y.o. female. HPI The patient has been referred by ANURAG Ovalles regarding chronic hepatitis C. Past medical history, medications, allergies, social and family history have been reviewed. The patient has a history of bipolar affective disorder, recent hospital admission to [facility] in September for polypharmacy resulting into altered [...] She will also follow-up with at [facility] on November 13 and according to the [...] DEVELOPED AND ITS PERFORMANCE CHARACTERISTICS DETERMINED BY [facility]. IT HAS NOT [...] DEVELOPED AND ITS PERFORMANCE CHARACTERISTICS DETERMINED BY [facility]. IT HAS NOT [...] 5. Gas obscures aorta, pancreas. abdomen complete [[id number]] Assessment and Plan: Visit Diagnoses and Associated [...] Instructions by Delilah Santos MD at 10/22/13 7460 Author: Delilah Santos MD Service: (none) Author Type: Physician Filed: 10/22/13 6046 Encounter Date: 10/22/2013 Status: Addendum Flatlock Sewing Machine Operator: Delilah Santos MD (Physician) Related Notes: Original Note by Delilah Santos MD (Physician) filed at 10/22/13 5386 1. Do Fibrosure 2. Obtain hepatitis A vaccine (2 shots a month apart) and hepatitis B vaccine series eithe r at PCP or Health Dept. 3. Avoid alcohol, illicit drugs; continue to cut down on smoking documented in this encounter Plan of Treatment Not [...] | | | Results | [address] [facility], | | | | | | [facility] [address] | | | | + + + + + + | FIBROSURE | F1 TO [id number]: Testing | | EXTERNAL | | | STAGE | performed by [facility], | | LAB | | | | [address] [facility], | | | | | | [place] [address] | | | | + + + + + + | Necroinflam | 0.33 (H)Comment: Testing | 0.00 - 0.17 | EXTERNAL | | | mat | performed by [facility], | | LAB | | | Activity | [address] [facility], | | | | | Score | [facility] [address] | | | | + + + + + + | Necroinflam | SEE BELOWComment: A1, | | EXTERNAL | | | mat | MINIMAL ACTIVITYTesting | | LAB | | | Activity | performed by [facility], | | | | | Grade | [address] [facility], | | | | | | [facility] [address] | | | | + + + + + + | Alpha | 290 (H)Comment: Testing | 110 - 276 mg/dL | EXTERNAL | | | 2-Macroglob | performed by [facility], | | LAB | | | wilfrid Qn | [address] [facility], | | | | | | [facility] [address] | | | | + + + + + + | Haptoglobin | 134Comment: Testing | 34 - 200 mg/dL | EXTERNAL | | | | performed by [facility], | | LAB | | | | [address] [facility], | | | | | | [facility] [address] | | | | + + + + + + | Apolipoprot | 127Comment: Testing | 110 - 205 mg/dL | EXTERNAL | | | ein A-1 | performed by [facility], | | LAB | | | | [address] [facility], | | | | | | [place] [address] | | | | + + + + + + | Bilirubin, | 0.2Comment: Testing | 0.0 - 1.2 mg/dL | EXTERNAL | | | Total | performed by [facility], | | LAB | | | | [address], | | | | | | [place] [address] | | | | + + + + + + | Gamma | 119 (H)Comment: Testing | 0 - 60 IU/L | EXTERNAL | | | Glutamyl | performed by [facility], | | LAB | | | Transfer[facility] | [address], | | | | | | [place] [address] | | | | + + + + + + | ALT (SGPT) | 53 (H)Comment: Testing | 0 - 40 IU/L | EXTERNAL | | | P5P | performed by [facility], | | LAB | | | | [address], | | | | | | [place] [address] | | | | + + + [...] | | | | | [address] [facility], | | | | | | [facility] [address] | | | | + + + [...] | | | | | | by [facility], [address] | | | | | | [place] | | | | | | [address] | | | | + + + + + + | Comment | SEE BELOWComment: THIS | | EXTERNAL | | | | TEST WAS DEVELOPED AND | | LAB | | | | ITS PERFORMANCE | | | | | | CHARACTERISTICS | | | | | | DETERMINEDBY [facility]. IT | | | | | [...] THE | | | | | | [facility] | | | | | | BIOLOGY AND PATHOLOGY | | | | | | CUSTOMER SERVICE | | | | | | DEPARTMENT | | | | | | [phone].Testing | | | | | | performed by [facility], | | | | | | [address], | | | | | | [place] [address] | | | | + + + [...]
--- OUTSIDE RECORDS SUMMARY | ~2020-02-12 | XMS | Encounter Summary ---
Demographics + + + | Address | [address] | | | [place] [address] | + + + | Home Phone [...] Author + + + | Author | Located Within [facility] | | | and [place] | + + + | Organization | Located Within [facility] | | [...] Team Providers + +------+ + | Care Economics Teacher Name | Role | Phone | + +------+ + | Hayden Acevedo MD | PCP | | + +------+ + Encounter Details +--------+ + + + + | Date | Type | Department | Care Team | Description | +--------+ + + + + | 01/30/ | Hospital | [facility] | Carol Worrell MD | Thoracic or | | 2013 | Encounter | [facility] [address] | [address] | lumbosacral neuritis | | | | [address] | [address] | or radiculitis, | | | | [place], [place] | [place], [place] | unspecified; | | | | [address] | [phone] | Radiculopathy of | | | | [phone] | [phone] | lumbar region; | | | | [...] Progress Notes by Geovanna Fischer RN at 01/30/141799 Author: Geovanna Fischer RN Service: (none) Author Type: Registered Nurse Filed: 01/30/14 1908 Date of Service: 01/30/141799 Status: Signed Ostomy Nurse: Geovanna Fischer RN (Registered Nurse) Discharge teaching done. Paperwork and prescriptions given. Patient claims to have no fur ther questions or concerns. Patient stable and pain is under control. Patient escorted by nadiya lala to personal vehicle home with family. Geovanna Fischer RN 01/30/2014 Keesha Bingham PA - 01/30/2014 4:02 PM PDTFormatting of this note might be different from the or iginal. Progress Notes by Keesha Betancuort PA-C at 01/30/14 1602 Author: Keesha Betancourt PA-C Service: Neurosurgery Author Type: Physician Marketing And Development Coordinator - Ce rtified Filed: 01/30/14 1609 Date of Service: 01/30/14 160 Status: Signed Ostomy Nurse: Keesha Betancourt PA-C (Physician Marketing And Development Coordinator - Certified) [facility] Service: Neurosurgery Progress Note Hospital Day: LOS: [...] I&O Current Shift: 01/30 0700 - 01/30 185 In: 2800 [P.O.:600; I.V.:2200] Out: - Gen: [...] home. Follow up in 2 weeks in [facility] clinic. Discharge instructions given. Rx giv en for percocet and rolling walker. Disposition: Good Code Status: Full Code Keesha Betancourt PA-C 01/30/2014 loyd, Me singh Hilton PT - 01/30/2014 2:44 PM PDTFormatting of this note might be different from the christian saeed. Therapy Progress Note by Demi Paige PT at 01/30/14 1444 Author: Demi Paige PT Service: (none) Author Type: Physical Therapist Filed: 01/30/14 3699 Date of Service: 01/30/14 1444 Status: Signed Ostomy Nurse: Demi Paige PT (Physical Therapist) 01/30/14 1444 PT Last Visit PT Received On 01/30/14 Reason for Treatment Spinal surgery Requires PT Follow Up No PT Eval/Reassessment Date 01/30/14 Assistance Required 1 person;Independent Waistline Joiner Needed No Requires PT Follow Up No [...] Walker front wheeled Prior Function Level of [place] Modified independent with functional mobility;Modified independent wi [...] Eval/Reassessment Date 01/30/14 Assistance Required 1 person;Independent Waistline Joiner Needed No Precautions Spinal Precautions Lumbar Other [...] No VS: 105/58 94 97% (pre-activity supine) arnie Dewitt RPH - 01/30/2014 11:22 AM PDT Progress Notes by Marnie Dewitt RPH at 01/30/14 112 Author: Marnie Dewitt RPH Service: (none) Author Type: Pharmacist Filed: 01/30/14 112 Date of Service: 01/30/141121 Status: Signed Ostomy Nurse: Marnie Dewitt RPH (Pharmacist) Renal Dosing Monitoring: Nohemi Becker 53 y.o. female Pharmacy dosing for renal function per Porfirio Betancourt Plan per protocol: No scr available at this time Pharmacy will continue monitoring patient for appropriate dosing per renal function. 01/30/2014 11:22 AM Pharmacist: MARNIE DEWITT documente d in this encounter H&P Notes Carol Worrell MD - 01/30/2014 6:09 AM PDTFormatting of this note might be different fr om the original. H&P by Carol Worrell MD at 01/30/14 0609 Author: Carol Worrell MD Service: Neurosurgery Author Type: Physician Filed: 01/30/1414 Date of Service: 01/30/14608 Status: Signed Ostomy Nurse: Carol Worrell MD (Physician) [facility] Service: Neurosurgery Pre-Operative History & Physical CHIEF COMPLAINT: Left leg radicular pain History Obtained From: patient HISTORY OF PRESENT ILLNESS Patient ID: Nohemi Becker is a 53 y.o. female who is referred by ANURAG Winters. This is a complicated 53-year-old woman with a number of chronic medical conditions includi ng hepatitis C, history of IV drug abuse, bipolar disorder, chronic obstructive pulmonary di sease, nicotine addiction, cystocele/rectocele, and back pain with left leg radiculopathy. S he is also under a pain contract with Dr. Perea. She has had a number of recent social stres ses including her mother been placed in hospice and her brother recently passing away. She i s telling me that she has radicular pain down the left leg. This tends to go posteriorly in the buttock, down the hamstring and lateral knee with numbness in her foot. I had a hard janette e getting her to describe exactly where it radiates in her foot and she says the "whole foot " goes numb. She denies foot drop. She used to be able to get relief of it by hunching over but she says that no longer helps. She also describes swelling in both feet right greater th an left. She does have occasional radicular pain on the right but not nearly as bad as the l eft. She has a difficult time standing or walking more than 15 minutes. She is rating her pa in as 10 out of 10. She describes this as tight, throbbing, pulling, shooting, stabbing, and electrical. She says any type of physical activity worsens it. Most of the time nothing see ms to help it. She has had some benefit to Percocet although she does not think she is getti ng enough of that. She has tried epidural injections in the past but not recently. She is a current every day smoker. REVIEW OF SYSTEMS Review of Systems Review of Systems Constitutional: Positive for chills, activity change and appetite change. HENT: Positive for trouble swallowing, neck pain, voice change, sinus pressure and tinnitus . Eyes: Positive for photophobia and visual disturbance. Respiratory: Positive for cough and shortness of breath. Cardiovascular: Positive for chest pain, palpitations and leg swelling. Gastrointestinal: Positive for nausea and vomiting. Genitourinary: Positive for frequency and difficulty urinating. Neurological: Positive for dizziness, tremors, speech difficulty, weakness, light-headednes s and numbness. Hematological: Bruises/bleeds easily. Psychiatric/Behavioral: Positive for confusion, sleep disturbance, dysphoric mood and decre ased concentration. The patient is nervous/anxious. All other systems reviewed and are negative. Past Medical History Diagnosis Date Anxiety Hypertension [...] Date Hysterectomy Cholecystectomy Appendectomy Bladder surgery suspension Uc 07/14/2013 Uc 08/06/2013 Cataract extraction Breast surgery lumpectomy Colonoscopy section Eye surgery cataracts Cystocele and rectocele repair 12/24/2013 Procedure: CYSTOCELE AND RECTOCELE (A & P REPAIR); Surgeon: Misha Dye MD; Locatio n: [facility]; Service: SHOULDER BONER; Laterality: N/A; Anterior portion was not completed Bladder suspension 12/24/2013 Procedure: BLADDER SUSPENSION - TVT; Surgeon: Misha Dye MD; Location: [facility]; Service: SHOULDER BONER; Laterality: N/A; TVT exact Cystoplasty 12/24/2013 Procedure: CYSTOSCOPY - HYDRODISTENTION OF BLADDER; Surgeon: Misha Dye MD; Locati on: [facility]; Service: SHOULDER BONER; Laterality: N/A; 70 degree scope. Indigo Emilia dye a vailable to Anesthesiologist Enterocele repair 12/24/2013 Procedure: ENTEROCELE RPR; Surgeon: Misha Dye MD; Location: [facility]; Servic e: SHOULDER BONER; Laterality: N/A; Allergies Allergen Reactions Morphine Other (See Comments) Used MOLD YARD SUPERVISOR and it lowered her BP And medication was stopped No current facility-administered medications on file prior to encounter. Current Outpatient Prescriptions on File Prior to Encounter Medication Sig Dispense Refill albuterol (PROVENTIL) (2.5 MG/3ML) 0.083% nebulizer solution Take 6 mLs by nebulization every 6 (six) hours as needed for Wheezing. 20 vial 1 benzonatate (TESSALON) 100 MG capsule Take 1 capsule by mouth 3 (three) times daily as needed for Cough. 30 capsule 2 ergocalciferol (DRISDOL) 03382 UNITS capsule Take 1 capsule by mouth once a week. 12 c apsule 0 estradiol (ESTRACE VAGINAL) 0.1 MG/GM vaginal cream Place one gram vaginally qhs x 2 we eks, then begin using one gram vaginally three times weekly at night. 42.5 g 12 FLUoxetine (PROZAC) 40 MG capsule Take 1 capsule by mouth daily. 90 capsule 3 hydrALAZINE (APRESOLINE) 25 MG tablet Take 1-2 tablets PO every 8 hours as needed for a nxiety 90 tablet 11 hydrOXYzine (ATARAX) 25 MG tablet Take 50 mg by mouth 3 (three) times daily as needed. Indications: Anxiety Neurosis levothyroxine (SYNTHROID, LEVOTHROID) 25 MCG tablet Take 1 tablet by mouth every mornin g before breakfast. 90 tablet 3 lisinopril (PRINIVIL,ZESTRIL) 10 MG tablet Take 1 tablet by mouth daily. 90 tablet 3 loratadine (CLARITIN) 10 MG tablet Take 1 tablet by mouth daily. 90 tablet 3 OLANZapine (ZYPREXA) 10 MG tablet Take 1 tablet by mouth nightly. 90 tablet 3 omeprazole (PRILOSEC) 20 MG capsule Take 20 mg by mouth every morning before breakfast. solifenacin (VESICARE) 10 MG tablet Take 1 [...] Concern Not on file Social History Narrative PHYSICAL EXAM Vital Signs: There were no vitals taken for this visit. Physical Exam GENERAL: -Pleasant, no acute distress SKIN: -Normal HEENT: -Normocephalic and atraumatic NECK: -ROM normal -Negative Spurling sign -Negative Lhermitte's CHEST: -Symmetric -Lung sounds equal HEART: -Regular sinus rhythm ABDOMEN: -Soft -No masses : -Not examined EXTREMITIES: -Edema pretibial R>L -2+ pulses DP -Pain in right foot to palpation -MACKENZIE negative NEUROLOGICAL EXAM: MENTAL STATUS: -Alert and oriented x 3 -Normal mood, affect -Speech is fluent CEREBELLAR: -Finger to nose, ROWAN normal STATION/GAIT: -Normal upright posture -Heel and toe walking normal -Normal tandem walking REFLEXES: Right Left Biceps 2 2 Triceps 2 2 Brachioradialis 2 2 Patellar 2 2 Achilles 1 1 Wallace's Negative Negative Babinski's Downgoing Downgoing MOTOR EXAM: -No atrophy, fasciculations noted Right Left Deltoids 5 5 Biceps 5 5 Triceps 5 5 Brachioradialis 5 5 Wrist flexors 5 5 Hand intrinsics 5 5 Second Cook And Baker 5 5 Hip flexors 5 5 Quadriceps 5 5 Hamstrings 5 5 Dorsiflexion 5 5 Extensor hallicus 5 5 Plantarflexion 5 5 SENSORY: -Light touch normal -Pinprick normal -Proprioception normal at great toes SPINE EXAM: -No deformity -Tenderness absent -Straight leg raise negative -Glenny's signs absent IMAGING: The patient has a mild degenerative lumbar scoliosis with some disc collapse right L4-5 and left L5-S1. There is moderate stenosis at L4-5. There is left L5-S1 foraminal narrowing. LAB DATA: CBC: Lab Results Component Value Date WBC 5.7 01/22/2014 RBC 3.99 01/22/2014 HGB 12.0 01/22/2014 HCT 36.2 01/22/2014 MCV 90.9 01/22/2014 MCH 30.1 01/22/2014 MCHC 33.1 01/22/2014 RDW 48.6 01/22/2014 PLT 210 01/22/2014 MPV 8.0 01/22/2014 DIFFTYPE AUTOMATED 01/22/2014 BMP: Lab Results Component Value Date NA 135 01/22/2014 K 4.2 01/22/2014 CL 108 01/22/2014 CO2 25 01/22/2014 ANIONGAP 6 01/22/2014 GLUF 113* 01/22/2014 BUN 16 01/22/2014 CREATININE 0.76 01/22/2014 BCR 21 01/22/2014 CA 9.7 01/22/2014 EGFR >60 01/22/2014 PT/INR: Lab Results Component Value Date INR 1.0 01/22/2014 PTT: Lab Results Component Value Date APTT 24 01/22/2014 [APTT} PROBLEM LIST Patient Active Problem List Diagnosis [...] lumbar Lumbar facet arthropathy ASSESSMENT & PLAN 53 year old with multiple health issues and lumbar spondylosis. She has a number of pain co mplaints, but the most severe she says is into the left leg towards the top of her foot whic h would be consistent with a left L5 radicular pattern. There is lateral recess stenosis at L4-5 and foraminal stenosis at L5-S1 which is likely contributory. She is not a very good ca ndidate for a bigger surgery, but perhaps she could get some relief with a simple decompress ion. I have proposed a left L4-5 hemilaminectomy and L5-S1 foraminotomy. We discussed the specific risks of the procedure including bleeding, infection, injury to t he nervous structures, csf leak, medical complications, worsened pain, instability, need for further surgery including fusion, among others. The procedure and its indications, the alte rnative treatment options including non-treatment, the anticipated benefits of the procedure and alternatives, and the possible risks and complications of the procedure are addressed w ith the patient and all questions were answered. The patient wishes to proceed with surgica l intervention and informed consent was obtained. documented in this encounter Miscellaneous Notes Plan of Care - Conversion Transaction, Provider Unknown - 01/30/2014 3:57 PM PDT Plan of Care by Geovanna Fischer RN at 01/30/14 3881 Author: Geovanna Fischer RN Service: (none) Author Type: Registered Nurse Filed: 01/30/14 5537 Date of Service: 01/30/14 6802 Status: Signed Ostomy Nurse: Geovanna Fischer RN (Registered Nurse) Patient meeting discharge criteria. lan o f Care - Conversion Transaction, Provider Unknown - 01/30/2014 12:06 PM PDTFormatting of thi s note might be different from the original. Plan of Care by Geovanna Fischer RN at 01/30/14 5093 Author: Geovanna Fischer RN Service: (none) Author Type: Registered Nurse Filed: 01/30/14 1206 Date of Service: 01/30/14 1206 Status: Signed Ostomy Nurse: Geovanna Fischer RN (Registered Nurse) Problem: Potential for Infection Goal: Remain free from symptoms of infection Outcome: Progressing Patient afebrile, Dressing C/D/I Problem: Pain Goal: Report decrease in pain level Alleviation of pain or a reduction in pain to a level of comfort that is acceptable to the patient. Outcome: Progressing Pain controlled, plan discussed, and pain reassessed. Problem: Ineffective Breathing Pattern Goal: Patient will achieve/maintain normal respiratory rate/effort Outcome: Progressing Instructed and encouraged IS, patient deep breath, cough and turn frequently. Patient on ro om air sats in high 90s. p Not e - Carol Worrell MD - 01/30/2014 10:11 AM PDT Op Note by Carol Worrell MD at 01/30/14 1011 Author: Carol Worrell MD Service: Neurosurgery Author Type: Physician Filed: 01/30/14 1016 Date of Service: 01/30/14 1011 Status: Signed Ostomy Nurse: Carol Worrell MD (Physician) [facility] OPERATIVE NOTE NEUROSURGERY DEPT Name: Nohemi Becker Age: 53 y.o. Todays Date: 01/30/2014 Time: 10:12 AM PROCEDURE: Left L4-5 hemilaminectomy for L5 nerve root decompression Diagnoses: Pre-Op: Lumbar radiculopathy, left L5 Lateral recess, spinal/foraminal stenosis Post-Op: Same as above Surgeon: Carol Worrell MD Assist: Keesha Betancourt PA-C Anesthesia: General endotracheal Specimens: None Indications: See dictated admission history and physical. Est Blood Loss: 25cc Complications: None PROCEDURE DESCRIPTION: The patient was brought to the operating room and a timeout performed just prior to initiat ing the procedure verifying the correct patient, operative site/levels, films, and allergies . Preoperative antibiotics were administered. The patient underwent general endotracheal ane sthesia. The patient was then carefully turned prone onto the Julius frame with all murphy pressure poi nts padded appropriately including the eyes. The lumbar region was prepped and draped in the usual sterile fashion. A midline lumbar incision was planned over the L4-5 appropriate leve ls. This was based on a spinal needle and lateral fluoroscopy. The proposed incision was inf iltrated with 1% lidocaine with epinephrine. The midline incision was made and carried down through the subcutaneous layer. The fascia was identified and incised off to the left of mid line. The lumbar paraspinal muscles were stripped in a subperiosteal fashion exposing the in terspace of the L4-5 level. A metallic marker was placed and the levels reconfirmed with flu oroscopy. The Midas Talon was used to create a left L4 hemilaminectomy. The ligamentum flavum was care fully mobilized from the dura and resected with Kerrison punches. This was widened out to th e edge of the thecal sac and L5 nerve root. The L5 nerve root was decompressed under the lat eral recess subarticular zone and out to the foramen. The L5 nerve appear to be satisfactor lula decompressed. The wound was irrigated liberally with antibiotic irrigation. Hemostasis was achieved. A piece of thrombin-soaked Gelfoam was placed over the exposed dura. The fas maria isabel was then closed with interrupted 0-Vicryl sutures. The subcutaneous layer was closed wit h interrupted 2-0 Vicryl sutures and 3-0 Vicryl sutures in the dermal layer. Steri-Strips an d a sterile dressing were applied. All counts were correct at the end of the procedure. The re were no intraoperative complications. The patient was extubated and taken to the recovery room in good condition. Disposition: Pt moved to PACU/recovery room. Condition: Stable and satisfactory condition. Sponge and Needle Count: Correct CAROL WORRELL MD has created this entry using [employer] Voice Recognition software and [employer]Anthem macros. The entry has been reviewed and there may still exist sound alike word err ors. p Note - Angeline Worrell MD - 01/30/2014 10:11 AM PDTFormatting of this note might be different from the christian saeed. Brief Op Note by Carol Worrell MD at 01/30/14 1011 Author: Carol Worrell MD Service: Neurosurgery Author Type: Physician Filed: 01/30/14 1011 Date of Service: 01/30/14 1011 Status: Signed Ostomy Nurse: Carol Worrell MD (Physician) [facility] Service: Neurosurgery Brief Op Note See complete electronic operative report for full details. CAROL WORRELL MD 01/30/2014 documented in this encounter Plan of Treatment [...] At | + + + | NOHEMI REDDY OVER 1 HOUR 01/30/2014 9:07 AM | [...] | Procedure Note | + ---+ | Nikita Hearn Conversion - 01/18/2019 1:22 [...]
--- OUTSIDE RECORDS SUMMARY | ~2020-02-12 | XMS | Encounter Summary ---
Demographics + + + | Address | [address] | | | [place] [address] | + + + | Home Phone [...] Author | [facility] | | | and [place] | + + + | Organization | [facility] | | | [...] Team Providers + +------+ + | Care Biologics Specialist Name | Role | Phone | + +------+ + | Hayden Acevedo MD | PCP | | + +------+ + Encounter Details +--------+ + + + + | Date | Type | Department | Care Team | Description | +--------+ + + + + | 12/11/ | Hospital | [facility] | Conversion | | | 2014 | Encounter | [facility] | Transaction, | | | | | CLINIC [address] | Provider Unknown | | | | | [address] [place], [place] | | | | | | [address] | (Fax) | | | | | [phone] | | | +--------+ + + + [...] | | EXTERNAL | | | | KM;[address] | | LAB | | | | Blvd;[place] [address] | | | | + + + + + + | Antibody | NEGATIVE | | EXTERNAL | | | Screen | | | LAB | | + + + + + + | Antibody | Testing performed at | | EXTERNAL | | | Screen | [facility];[address] | | LAB | | | | Blvd;[place] [address] | | | | + + + [...] | | | | | performed at [facility], [address] | | | | | | [address], | | | | | | [place] [address] | | | | + + + [...] | | | | | [place] [address] | | | | + + + + + + | Non- | 4.38Comment: Testing | 3.70 - 5.10 | EXTERNAL | | | Red Blood | performed at [facility], [address] | M/uL | LAB | | | Cells | [address], | | | | | Counted | [place] [address] | | | | + + + + + + | Hemoglobin | 13.1Comment: Testing | 11.3 - 15.5 | EXTERNAL | | | | performed at [facility], [address] | g/dL | LAB | | | | [address], | | | | | | [place] [address] | | | | + + + + + + | Hematocrit, | 40.3Comment: Testing | 34.0 - 46.0 % | EXTERNAL | | | POC | performed at [facility], [address] | | LAB | | | | [address], | | | | | | [place] [address] | | | | + + + + + + | MCV | 92.1Comment: Testing | 80.0 - 100.0 fl | EXTERNAL | | | | performed at [facility], [address] | | LAB | | | | [address], | | | | | | [place] [address] | | | | + + + + + + | MCH | 29.9Comment: Testing | 27.0 - 34.0 pg | EXTERNAL | | | | performed at [facility], [address] | | LAB | | | | [address], | | | | | | [place] [address] | | | | + + + + + + | MCHC | 32.5Comment: Testing | 32.0 - 35.5 | EXTERNAL | | | | performed at [facility], [address] | g/dL | LAB | | | | [address], | | | | | | [place] [address] | | | | + + + + + + | RDW-CV | 48.1Comment: Testing | 37 - 53 fl | EXTERNAL | | | | performed at [facility], [address] | | LAB | | | | [address], | | | | | | [place] [address] | | | | + + + + + + | Platelet | 271Comment: Testing | 150 - 400 K/uL | EXTERNAL | | | Count | performed at [facility], [address] | | LAB | | | Plasma | [address], | | | | | | [place] [address] | | | | + + + + + + | MPV | 8.8Comment: Testing | fl | EXTERNAL | | | | performed at [facility], [address] | | LAB | | | | [address], | | | | | | [place] [address] | | | | + + + + + + | Differentia | AUTOMATEDComment: | | EXTERNAL | | | l Type | Testing performed at | | LAB | | | | [facility], [address] | | | | | | [place] | | | | | | [address] | | | | + + + + + + | % Segmented | 52.9Comment: Testing | % | EXTERNAL | | | | performed at [facility], [address] | | LAB | | | Neutrophils | [address], | | | | | | [place] [address] | | | | + + + + + + | % | 33.3Comment: Testing | % | EXTERNAL | | | Lymphocytes | performed at [facility], [address] | | LAB | | | | [address], | | | | | | [place] [address] | | | | + + + + + + | % Monocytes | 7.9Comment: Testing | % | EXTERNAL | | | | performed at [facility], [address] | | LAB | | | | [address], | | | | | | [place] [address] | | | | + + + + + + | % | 5.1Comment: Testing | % | EXTERNAL | | | Eosinophils | performed at [facility], [address] | | LAB | | | | [address], | | | | | | [place] [address] | | | | + + + + + + | % Basophils | 0.8Comment: Testing | % | EXTERNAL | | | | performed at [facility], [address] | | LAB | | | | [address], | | | | | | [place] [address] | | | | + + + + + + | Absolute | 3.6Comment: Testing | 1.9 - 7.4 K/uL | EXTERNAL | | | Segmented | performed at [facility], [address] | | LAB | | | Neutrophils | [address], | | | | | | [place] [address] | | | | + + + + + + | Absolute | 2.3Comment: Testing | 1.0 - 3.9 K/uL | EXTERNAL | | | Lymphocytes | performed at [facility], [address] | | LAB | | | | [address], | | | | | | [place] [address] | | | | + + + + + + | Absolute | 0.5Comment: Testing | 0 - 0.8 K/uL | EXTERNAL | | | Monocytes | performed at [facility], [address] | | LAB | | | | [address], | | | | | | [place] [address] | | | | + + + + + + | Absolute | 0.3Comment: Testing | 0 - 0.5 K/uL | EXTERNAL | | | Eosinophils | performed at [facility], [address] | | LAB | | | | [address], | | | | | | [place] [address] | | | | + + + + + + | Absolute | 0.1Comment: Testing | 0 - 0.1 K/uL | EXTERNAL | | | Basophils | performed at [facility], [address] | | LAB | | | | [address], | | | | | | [place] [address] | | | | + + + [...] | LAB | | | | [address], | | | | | | [place] [address] | | | | + + + + + + | K | 3.5Comment: Testing | 3.5 - 4.9 | EXTERNAL | | | | performed at [facility], [address] | mmol/L | LAB | | | | [address], | | | | | | [place] [address] | | | | + + + + + + | Cl | 108Comment: Testing | 99 - 109 mmol/L | EXTERNAL | | | | performed at [facility], [address] | | LAB | | | | [address], | | | | | | [place] [address] | | | | + + + + + + | CO2 | 27Comment: Testing | 23 - 32 mmol/L | EXTERNAL | | | | performed at [facility], [address] | | LAB | | | | [address], | | | | | | [place] [address] | | | | + + + + + + | Anion Gap | 6Comment: Testing | 5 - 20 mmol/L | EXTERNAL | | | | performed at [facility], [address] | | LAB | | | | [address], | | | | | | [place] [address] | | | | + + + + + + | Glucose, | 104 (H)Comment: Testing | 65 - 99 mg/dL | EXTERNAL | | | Fasting | performed at [facility], [address] | | LAB | | | | [address], | | | | | | [place] [address] | | | | + + + + + + | BUN | 21Comment: Testing | 8 - 25 mg/dL | EXTERNAL | | | | performed at [facility], [address] | | LAB | | | | [address], | | | | | | [place] [address] | | | | + + + + + + | Creatinine | 0.84Comment: Testing | 0.50 - 1.00 | EXTERNAL | | | | performed at [facility], [address] | mg/dL | LAB | | | | [address], | | | | | | [place] [address] | | | | + + + + + + | BUN/Creatin | 25Comment: Testing | | EXTERNAL | | | ine Ratio | performed at [facility], [address] | | LAB | | | | [address], | | | | | | [place] [address] | | | | + + + + + + | Calcium | 10.1Comment: Testing | 8.5 - 10.2 | EXTERNAL | | | | performed at [facility], [address] | mg/dL | LAB | | | | [address], | | | | | | [place] [address] | | | | + + + + + + | Protein, | 8.2Comment: Testing | 6.3 - 8.2 g/dL | EXTERNAL | | | Total | performed at [facility], [address] | | LAB | | | | [address], | | | | | | [place] [address] | | | | + + + + + + | Albumin | 3.8Comment: Testing | 3.6 - 5.0 g/dL | EXTERNAL | | | | performed at [facility], [address] | | LAB | | | | [address], | | | | | | [place] [address] | | | | + + + + + + | Globulin | 4.4Comment: Testing | 1.3 - 4.9 g/dL | EXTERNAL | | | | performed at [facility], [address] | | LAB | | | | [address], | | | | | | [place] [address] | | | | + + + + + + | A/G Ratio | 0.9 (L)Comment: Testing | 1.0 - 2.4 | EXTERNAL | | | | performed at [facility], [address] | | LAB | | | | [address], | | | | | | [place] [address] | | | | + + + + + + | Bilirubin | 0.2Comment: Testing | 0.1 - 1.5 mg/dL | EXTERNAL | | | Total | performed at [facility], [address] | | LAB | | | | [address], | | | | | | [place] [address] | | | | + + + + + + | ALP, | 94Comment: Testing | 35 - 115 U/L | EXTERNAL | | | External | performed at [facility], [address] | | LAB | | | | [address], | | | | | | [place] [address] | | | | + + + + + + | AST | 126 (H)Comment: Testing | 10 - 45 U/L | EXTERNAL | | | | performed at [facility], [address] | | LAB | | | | [address], | | | | | | [place] [address] | | | | + + + + + + | ALT | 164 (H)Comment: Testing | 10 - 65 U/L | EXTERNAL | | | | performed at [facility], [address] | | LAB | | | | [facility], | | | | | | [place] [address] | | | | + + + [...] | | | | | | at [facility], [address] | | | | | | [facility], | | | | | | [place] [address] | | | | + + + [...]
--- OUTSIDE RECORDS SUMMARY | ~2020-02-12 | XMS | Encounter Summary ---
Demographics + + + | Address | [address] | | | [place] [address] | + + + | Home Phone [...] Author + + + | Author | [facility] | | | and [place] | + + + | Organization | [facility] | | [...] Team Providers + +------+ + | Care Floor Covering Contractor Name | Role | Phone | + +------+ + | Hayden Acevedo MD | PCP | | + +------+ + Encounter Details +--------+ + + + + | Date | Type | Department | Care Team | Description | +--------+ + + + + | 08/07/ | Hospital | [facility] | Conversion | | | 2014 | Encounter | [facility] | Transaction, | | | | | [address] [place] | Provider Unknown | | | | | [address] [place], [place] | [phone] | | | | | [address] | | | | | | [phone] | | | +--------+ + + + [...]
--- OUTSIDE RECORDS SUMMARY | ~2020-02-12 | XMS | Encounter Summary ---
Demographics + + + | Address | [address] | | | [place] [address] | + + + | Home Phone [...] | Author | [facility] | | | and [place] | + + + | Organization | [facility] | | | [...] Team Providers + +------+ + | Care Commercial Sewing Instructor Name | Role | Phone | + +------+ + | Naren Nina PA-C | PCP | | + +------+ + Encounter Details +--------+ + + + + | Date | Type | Department | Care Team | Description | +--------+ + + + + | 08/15/ | Orders Only | [facility] | Mariia Owusu, | | | 2013 | | [facility] | P[place]CELAIN TURNER [address] | | | | | CARE [address] | [place] [address] | | | | | [place], [place] | [phone] | | | | | [address] | | | | | | [phone] | | | +--------+ + + + [...] Filed: 08/13/[id number] Encounter Date: 08/13/2013 Status: Signed Inspector Plug Seam: Olesya Martinez Message copied by OLESYA MARTINEZ on SunAug 13, 2013 5:38 PM ------ Message from: SAMREEN SKINNER Created: SunAug 13, 2013 3:55 PM Contact: 4-Ruth- cory-DONALDO Miranda from [facility] need for blood work BUN and Creatine for upcoming MRI, patient wi ll need to have this done at tomorrow appointment since the MRI is scheduled for 08/18. If you have any questions, Please call patient back at [phone]. Thank you, Samreen Skinner Weekend Caregiver docume nted in this encounter Plan of [...] EXTERNAL | | | | performed at L;[address] | | LAB | | | | [address] | | | | | | [place] [address] | | | | + + + [...] EXTERNAL | | | | performed at [facility];[address] | mg/dL | LAB | | | | [address] | | | | | | [address];[place] [address] | | | | + + + [...]
--- OUTSIDE RECORDS SUMMARY | ~2020-02-12 | XMS | Encounter Summary ---
Demographics + + + | Address | [address] | | | [place] [address] | + + + | Home Phone [...] Author | [facility] | | | and [place] | + + + | Organization | [facility] | | | and [...] Team Providers + +------+ + | Care Soccer Player Name | Role | Phone | + +------+ + | Naren Nina PA-C | PCP | | + +------+ + Encounter Details +--------+ + + + + | Date | Type | Department | Care Team | Description | +--------+ + + + + | 10/08/ | Orders Only | [facility] | Mariia Owusu, | | | 2013 | | [facility] | BIO MEDICAL TECHNICIAN [address] | | | | | CARE [address] | [place] [address] | | | | | [place], [place] | [phone] | | | | | [address] | | | | | | [phone] | | | +--------+ + + + [...] | + +--------+ + + + | AMISHITS Opal AB, TOTAL | Routin | 10/08/2013 | [...] | | | | | | [facility] | | | | | [facility] [...] + + + + | HCV | [id number] (A)Comment: | [iU]/mL | EXTERNAL | | [...] /uL | EXTERNAL | | | CD4 ([place] | | | LAB | | | [...] | | | | | | DETERMINEDBY [facility] | | | | | | [facility] | | | | | | [facility]. IT HAS NOT BEEN | | | [...]
--- OUTSIDE RECORDS SUMMARY | ~2020-02-12 | XMS | Encounter Summary ---
Demographics + + + | Address | [address] | | | [place] [address] | + + + | Home Phone [...] Author + + + | Author | [facility] | | | and [place] | + + + | Organization | [facility] | | | [...] Team Providers + +------+ + | Care Manager Systems Name | Role | Phone | + +------+ + | Hayden Acevedo MD | PCP | | + +------+ + Encounter Details +--------+ + + + + | Date | Type | Department | Care Team | Description | +--------+ + + + + | 01/22/ | Hospital | [facility] | Conversion | Thoracic or | | 2013 | Encounter | [facility] | Transaction, | lumbosacral neuritis | | | | CLINIC [address] | Provider Unknown | or radiculitis, | | | | BLVD [place], [place] | | unspecified | | | | [address] | (Fax) | | | | | [phone] | | | +--------+ + + + [...] Anesthesiology Author Type: Registered Nurse Filed: 01/22/14 0988 Date of Service: 01/22/14 1408 Status: Addendum Civil Lawyer: Amena Frank RN (Registered Nurse) Related Notes: [...] | | | Patient | performed at [facility];[address] | | LAB | | | | [address];[place] | | | | | | [address] | | | | + + + [...] | | | | | performed at [facility] | | | | | | [facility];[place], [place] | | | | | | [address] | | | | + + + [...] | | | | | [place] [address] | | | | + + + + + + | Non- | 3.99Comment: Testing | 3.70 - 5.10 | EXTERNAL | | | Red Blood | performed at [facility], [address] | M/uL | LAB | | | Cells | [address], | | | | | Counted | [place] [address] | | | | + + + + + + | Hemoglobin | 12.0Comment: Testing | 11.3 - 15.5 | EXTERNAL | | | | performed at [facility], [address] | g/dL | LAB | | | | [address], | | | | | | [place] [address] | | | | + + + + + + | Hematocrit, | 36.2Comment: Testing | 34.0 - 46.0 % | EXTERNAL | | | POC | performed at [facility], [address] | | LAB | | | | [address], | | | | | | [place] [address] | | | | + + + + + + | MCV | 90.9Comment: Testing | 80.0 - 100.0 fl | EXTERNAL | | | | performed at [facility], [address] | | LAB | | | | [address], | | | | | | [place] [address] | | | | + + + + + + | MCH | 30.1Comment: Testing | 27.0 - 34.0 pg | EXTERNAL | | | | performed at [facility], [address] | | LAB | | | | [address], | | | | | | [place] [address] | | | | + + + + + + | MCHC | 33.1Comment: Testing | 32.0 - 35.5 | EXTERNAL | | | | performed at [facility], [address] | g/dL | LAB | | | [address], | | | | | | [place] [address] | | | | + + + + + + | RDW-CV | 48.6Comment: Testing | 37 - 53 fl | EXTERNAL | | | | performed at [facility], [address] | | LAB | | | | [address], | | | | | | [place] [address] | | | | + + + + + + | Platelet | 210Comment: Testing | 150 - 400 K/uL | EXTERNAL | | | Count | performed at [facility], [address] | | LAB | | | Plasma | [address], | | | | | | [place] [address] | | | | + + + + + + | MPV | 8.0Comment: Testing | fl | EXTERNAL | | | | performed at [facility], [address] | | LAB | | | | [address], | | | | | | [place] [address] | | | | + + + + + + | Differentia | AUTOMATEDComment: | | EXTERNAL | | | l Type | Testing performed at | | LAB | | | | [facility], [address] | | | | | | [place] | | | | | | [address] | | | | + + + + + + | % Segmented | 35.5Comment: Testing | % | EXTERNAL | | | | performed at [facility], [address] | | LAB | | | Neutrophils | [address], | | | | | | [place] [address] | | | | + + + + + + | % | 47.9Comment: Testing | % | EXTERNAL | | | Lymphocytes | performed at [facility], [address] | | LAB | | | | [address], | | | | | | [place] [address] | | | | + + + + + + | % Monocytes | 8.8Comment: Testing | % | EXTERNAL | | | | performed at [facility], [address] | | LAB | | | | [address], | | | | | | [place] [address] | | | | + + + + + + | % | 7.0Comment: Testing | % | EXTERNAL | | | Eosinophils | performed at [facility], [address] | | LAB | | | | [address], | | | | | | [place] [address] | | | | + + + + + + | % Basophils | 0.8Comment: Testing | % | EXTERNAL | | | | performed at [facility], [address] | | LAB | | | | [address], | | | | | | [place] [address] | | | | + + + + + + | Absolute | 2.0Comment: Testing | 1.9 - 7.4 K/uL | EXTERNAL | | | Segmented | performed at [facility], [address] | | LAB | | | Neutrophils | [address], | | | | | | [place], [place] [address] | | | | + + + + + + | Absolute | 2.7Comment: Testing | 1.0 - 3.9 K/uL | EXTERNAL | | | Lymphocytes | performed at [facility], [address] | | LAB | | | | [address], | | | | | | [place] [address] | | | | + + + + + + | Absolute | 0.5Comment: Testing | 0 - 0.8 K/uL | EXTERNAL | | | Monocytes | performed at [facility], [address] | | LAB | | | | [address], | | | | | | [place], [place] [address] | | | | + + + + + + | Absolute | 0.4Comment: Testing | 0 - 0.5 K/uL | EXTERNAL | | | Eosinophils | performed at [facility], [address] | | LAB | | | | [address], | | | | | | [place] [address] | | | | + + + + + + | Absolute | 0.0Comment: Testing | 0 - 0.1 K/uL | EXTERNAL | | | Basophils | performed at [facility], [address] | | LAB | | | | [address], | | | | | | [place] [address] | | | | + + + [...] | | | | | [place] [address] | | | | + + + + + + | K | 4.2Comment: Testing | 3.5 - 4.9 | EXTERNAL | | | | performed at [facility], [address] | mmol/L | LAB | | | | [address], | | | | | | [place] [address] | | | | + + + + + + | Cl | 108Comment: Testing | 99 - 109 mmol/L | EXTERNAL | | | | performed at [facility], [address] | | LAB | | | | [address], | | | | | | [place] [address] | | | | + + + + + + | CO2 | 25Comment: Testing | 23 - 32 mmol/L | EXTERNAL | | | | performed at [facility], [address] | | LAB | | | [address], | | | | | | [place] [address] | | | | + + + + + + | Anion Gap | 6Comment: Testing | 5 - 20 mmol/L | EXTERNAL | | | | performed at [facility], [address] | | LAB | | | | [address], | | | | | | [place] [address] | | | | + + + + + + | Glucose, | 113 (H)Comment: Testing | 65 - 99 mg/dL | EXTERNAL | | | Fasting | performed at [facility], [address] | | LAB | | | | [address], | | | | | | [place] [address] | | | | + + + + + + | BUN | 16Comment: Testing | 8 - 25 mg/dL | EXTERNAL | | | | performed at [facility], [address] | | LAB | | | | [address], | | | | | | [place] [address] | | | | + + + + + + | Creatinine | 0.76Comment: Testing | 0.50 - 1.00 | EXTERNAL | | | | performed at [facility], [address] | mg/dL | LAB | | | | [address], | | | | | | [place] [address] | | | | + + + + + + | BUN/Creatin | 21Comment: Testing | | EXTERNAL | | | ine Ratio | performed at [facility], [address] | | LAB | | | | [address], | | | | | | [place] [address] | | | | + + + + + + | Calcium | 9.7Comment: Testing | 8.5 - 10.2 | EXTERNAL | | | | performed at [facility], [address] | mg/dL | LAB | | | | [address], | | | | | | [place] [address] | | | | + + + [...] | | | | | [place] [address] | | | | + + + [...] EXTERNAL LAB | | Testing performed at [facility] [place] [address];[place] [address] MRSA PCR | | | NEGATIVE Testing performed at | | | [address];[place] [address] | | + + + + +---------+ [...] + + | Historically converted procedure from [facility] environment | EXTERNAL LAB | + [...]
--- OUTSIDE RECORDS SUMMARY | ~2020-02-12 | XMS | Encounter Summary ---
Demographics + + + | Address | [address] | | | [place] [address] | + + + | Home Phone [...] Author | [facility] | | | and [place] | + + + | Organization | [facility] | | | [...] Team Providers + +------+ + | Care Tie Knitter Helper Name | Role | Phone | + +------+ + | Hayden Acevedo MD | PCP | | + +------+ + Encounter Details +--------+ + + + + | Date | Type | Department | Care Team | Description | +--------+ + + + + | 12/11/ | Hospital | [facility] | Conversion | | | 2014 | Encounter | [facility] | Transaction, | | | | | [address] | Provider Unknown | | | | | [place], [place] | [phone] | | | | | [address] | (Fax) | | | | | [phone] | | | +--------+ + + + [...]
--- OUTSIDE RECORDS SUMMARY | ~2020-02-12 | XMS | Encounter Summary ---
Demographics + + + | Address | [address] | | | [place] [address] | + + + | Home Phone [...] Team Providers + +------+ + | Care Ornamental Iron Erector Name | Role | Phone | [...] | | | | low back | [address] | [address] | | | | | pain with | [place], | [place], | | | | | bilateral | [place] [address] | [place] [address] | | | | | sciatica | Phone: | Phone: | | | | | Cervicalgia | [phone] | [phone] | | | | | Cervical | Fax: | Fax: | | | | | radiculopath | [phone] | [phone] | | | | | y Facet [...] PHYSIATRY [address] | MD [address] | low back pain with | | | | [address] | [place], [place] | bilateral sciatica | | | | [place], [place] | [address] | (Primary Dx); | | | | [address] | | Cervicalgia; | | | | [phone] | | Cervical | | | | | | radiculopathy; Facet | | | | | | arthritis of | | | | | | cervical region | | | | | | ([facility]) | +--------+ + + + [...] as of this encounter Plan of Treatment + + [...] region | | | | | | ([facility]) | | + + +--------+ [...]
--- OUTSIDE RECORDS SUMMARY | ~2020-02-12 | XMS | Clinical Summary ---
Demographics + + + | Address | [address] | | | [place] [address] | + + + | Home Phone [...] Team Providers + +------+ + | Care Restoration Silversmith Name | Role | Phone | + [...] | | | | | Comments) Used COUNTY NURSE | | | | | | and it lowered her | | | | | | BP And medication | | | | | | was stopped Other | | | | | | reaction(s): Other | | | | | | (See Comments) Used | | | | | | COUNTY NURSE and it lowered | | | | | | her BP And | | | | | | medication was | | | | | | stopped Used COUNTY NURSE | | | | | | and [...] | mouth every morning | | | 1/20 | | e | | tablet | before breakfast. | | | 14 | | | + + + +---------+------+------+-------+ | LORazepam (ATIVAN) | Take 1 tablet by | | 0 | /1 | | Activ | | 1 mg [...] (ZITHROMAX) 250 mg | | | | /20 | | e | | tablet | [...] | will have pt speak with the quality assurance coordinator today to help | | get [...] is not sleeping well. | + + Immunizations + + + [...] | + + + + + | Medication | | | | | Management | 0 | | | + + [...] | + + + + + | Med Mgmt: Vit D | | 06/24/19 | | | | 5 | 14 | | + + + + + | Vaccine: | | 09/21/19 | | | Pneumococcal 19-64 | 5 | 14 | | | (2 of 3 - PCV13) | | | | + + + + + | Breast Cancer | | | | | Screening | 5 | | | + + + + + | Med Mgmt: HBA1C | | 01/12/20 | | | | 6 | 15 | | + + + + + | Med Mgmt: BUN | | 10/04/19 | | | | 7 | 16, | | | | | 01/30/20 | | | | | 15, | | | | | 01/14/20 | | | | | 15, | | | | | Addition | | | | | al | | | | | history | | | | | exists | | + + + + + | Med Mgmt: eGFR | | 10/04/19 | | | | 7 | 16, | | | | | 01/30/20 | | | | | 15, | | | | | 01/14/20 | | | | | 15, | | | | | Addition | | | | | al | | | | | history | | | | | exists | | + + + + + | Med Mgmt: TSH | | 10/18/19 | | | | 7 | 16, | | | | | 10/09/19 | | | | | 14, | | | | | 09/20/19 | | | | | 14, | | | | | Addition | | | | | al | | | | | history | | | | | exists | | + + + + + | Med Mgmt: HCT | | 06/15/19 | | | | 8 | 17, | | | | | 10/18/19 | | | | | 16, | | | | | 10/04/19 | | | | | 16, | | | | | Addition | | | | | al | | | | | history | | | | | exists | | + + + + + | Med Mgmt: HGB | | 06/15/19 | | | | 8 | 17, | | | | | 10/18/19 | | | | | 16, | | | | | 10/04/19 | | | | | 16, | | | | | Addition | | | | | al | | | | | history | | | | | exists | | + + + + + | Med Mgmt: PLT | | 06/15/19 | | | | 8 | 17, | | | | | 10/18/19 | | | | | 16, | | | | | 10/04/19 | | | | | 16, | | | | | Addition | | | | | al | | | | | history | | | | | exists | | + + + + + | Med Mgmt: RBC | | 06/15/19 | | | | 8 | 17, | | | | | 10/18/19 | | | | | 16, | | | | | 10/04/19 | | | | | 16, | | | | | Addition | | | | | al | | | | | history | | | | | exists | | + + + + + | Med Mgmt: WBC | | 06/15/19 | | | | 8 | 17, | | | | | 10/18/19 | | | | | 16, | | | | | 10/04/19 | | | | | 16, | | | | | Addition | | | | | al | | | | | history | | | | | exists | | + + + + + | Med Mgmt: Cr | | 03/01/20 | | | | 8 | 17, | | | | | 10/04/19 | | | | | 16, | | | | | 01/30/20 | | | | | 15, | | | | | Addition | | | | | al | | | | | history | | | | | exists | | + + + + + | Med Mgmt: HDL | | 06/24/19 | | | | 9 | 14 | | + + + + + | Med Mgmt: LDL | | 06/24/19 | | | | 9 | 14 | | + + + + + | Med Mgmt: Total | | 06/24/19 | | | Cholesterol | 9 | 14 | | + + + + + | Med Mgmt: | | 06/24/19 | | | Triglycerides | 9 | 14 | | + + + + + | Vaccine: Influenza | | 03/23/20 | | | (#1) | 0 | 10, | | | | | 03/08/20 | | | | | 09 | | + + + + + | Hepatitis C | Completed | 03/01/20 | | | Screening | | 17, | | | | | 02/16/20 | [...] | | | [facility]S | | | /[id number] | | | | | | | [...] | | + +--------+ +--------+ +---------+--------+ | [employer] | MODA | [id number] | | [phone] | | Medica | | MEDICAID HMO | HEALTH | | 020-Pr | 1 | | id | | | MDCD | | esent | | | | | [place] | | | | | | + +--------+ +--------+ +---------+--------+ | MEDICAID [place] | MEDICA | [id number] | 09/03/19 | [phone] | | Medica [...] | Self [birth year] | [address] | | | al/Fam | | 1960 | [phone] | [place], [place] | | | [place]ula | | | 1 (Home) | [address] | + +--------+ +--------+ + + | Bisi Becker | Person | Self | [birth year] | [address] | | | al/Fam | | 1960 | [phone] | [place], [place] | | | [place] | | | 1 (Home) | [address] | + +--------+ +--------+ + + | Bisi Becker | Person | Self | [birth year] | [address] | | | al/Fam | | 1960 | [phone] | [place], [place] | | | [place] | | | 1 (Home) | [address] | + +--------+ +--------+ + + Advance Directives + + + + + | Type | Date Recorded | Patient | Explanation | | | | County Auditor | | + + + + + | Power of | | | | | Warehouse Distribution Associate | | | | + + + + + | Advance | | | | | Directive | | | | + + + + +
--- OUTSIDE RECORDS SUMMARY | ~2020-02-12 | XMS | Encounter Summary ---
Demographics + + + | Address | [address] | | | [place] [address] | + + + | Home Phone [...] | Author | [facility] | | | and [place] | + + + | Organization | [facility] | | | [...] Team Providers + +------+ + | Care Sandfill Operator Name | Role | Phone | + +------+ + | Naren Nina PA-C | PCP | | + +------+ + Encounter Details +--------+ + + + + | Date | Type | Department | Care Team | Description | +--------+ + + + + | 02/23/ | Orders Only | [facility] | [facility], | | | 2013 | | [facility] X[facility] [address] | DPM [address] | | | | | [address] | [address] [place], | | | | | [place], [place] | [place] [address] | | | | | [address] | [phone] | | | | | [phone] | | | +--------+ + + + [...] + + | Nikita Hearn Conversion - 01/24/2019 9:17 AM PDT Radiographic [...]
--- OUTSIDE RECORDS SUMMARY | ~2020-02-12 | XMS | Encounter Summary ---
Demographics + + + | Address | [address] | | | [place] [address] | + + + | Home Phone [...] Author | [facility] | | | and [place] | + + + | Organization | [facility] | | | [...] Team Providers + +------+ + | Care Helicopter Pilot Name | Role | Phone | + [...] + + | 10/20/ | Telephone | [facility] | Jose Gonzalez DO | Appointment | | 2020 | | NEUROSURGERY [address] | [address] | | | | | [address] | [address] | | | | | [place], [place] | [place] [address] | | | | | [address] | [phone] | | | | | [phone] | | | +--------+ + + + [...] Miscellaneous Notes Telephone Encounter - Shahla Ramirez, Hydrological Technical Officer - 10/21/2019 2:33 PM PDTCall ed and [...] for symptoms. Electronically signed by Shahla Ramirez Hydrological Technical Officer at 2:36 PM PDTTelephone Encounter - Willow [...] transfer the call to a shelley manzano developmental services worker was caller made aware that if at any time she feels it is an emergency they sh ould call 911 or go to the nearest emergency room? not applicable documented in this encounter Plan of Treatment Not on filedocumented as of this encounter Visit Diagnoses Not on filedocumented in this encounter"
--- OUTSIDE RECORDS SUMMARY | ~2020-02-12 | XMS | Encounter Summary ---
Demographics + + + | Address | [address] | | | [place] [address] | + + + | Home Phone [...] | Author | [facility] | | | and [place] | + + + | Organization | [facility] | | | and [place] | + + + | Address | Unknown | + + + | Phone | Unavailable | + + + Support + + +---------+ + | Name | Relationship | Address | Phone | + + +---------+ + | Gene Sotelo | ECON | Unknown | | + + +---------+ + | Mark Joshua | ECON | Unknown | | + + +---------+ + Care Team Providers + +------+ + | Care Manager Secondary Name | Role | Phone | + +------+ + PCP | Unavailable | + +------+ + Encounter Details +--------+ + + + + | Date | Type | Department | Care Team | Description | +--------+ + + + + | 07/13/ | Emergency | [facility] | Russell Newsome, | Right foot pain; | | 2011 | | [facility] | [address] | Right foot sprain | | | | EMERGENCY CENTER | [place] [address] | | | | | [address] | [phone] | | | | | [place], [place] | | | | | | [address] | | | | | | [phone] | | | +--------+ + + + [...] Date of Service: 07/13/11 1237 Status: Signed Monogram Maker: Angie Lira RN (Registered Nurse) Foot pain [...] Bermeo PA-C Service: (none) Author Type: Physician Network Associate - Certified Filed: 07/13/112002 Date of Service: 07/13/11 1228 Status: Signed Monogram Maker: Ely Bermeo PA-C (Physician Network Associate - Certified) Cosigner: Porfirio Melvin at 07/17/11 1350 Procedure Orders: 1. Orthopedic injury treatment [[id number]] ordered by Ely Bermeo PA-C at 07/13/111957 Orthopedic Injury Date/Time: 07/13/2011 2:27 PM Performed [...] Comments: She was given crutches as well. [facility] Department of Emergency Medicine History of Present [...] trauma. She was seen by PCP in [facility], where she lives, had normal xray then. Last night as she was helping family move, she tripped over boxes, and sprained foot a nd now can't bear weight d/t pain. She has been putting all her weight on heel and she can't walk anymore.. The course since that time has been worsening. The patient relates the [facility] injury history to the extremity: pain began [...] will have to walk) she is from [place] and will have to f/u with ortho over there if needed. No nabeel n her as long as she doesn't bear weight. 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
--- OUTSIDE RECORDS SUMMARY | ~2020-02-12 | XMS | Encounter Summary ---
Demographics + + + | Address | [address] | | | [place] [address] | + + + | Home Phone [...] Author | [facility] | | | and [place] | + + + | Organization | [facility] | | | [...] Team Providers + +------+ + | Care Rechecker Name | Role | Phone | + +------+ + | Hayden Acevedo MD | PCP | | + +------+ + Encounter Details +--------+ + + + + | Date | Type | Department | Care Team | Description | +--------+ + + + + | 09/19/ | Hospital | [facility] | Geovanny Law MD | Nicotine addiction; | | 2014 - | Encounter | [facility] | [address] | OAB (overactive | | | | CLINICAL DECISION | [place] [address] | bladder); GERD | | 09/21/ | | [address] | [phone] | (gastroesophageal | | 2013 | | [place], [place] | | reflux disease); | | | | [phone] | | Vitamin D | | | | [phone] | | deficiency; COPD | | | [...] Discharge Summaries by Philip Singh MD at 09/21/131756 Author: Philip Singh MD Service: (none) Author Type: Physician Filed: 09/22/13 1011 Date of Service: 09/21/131756 Status: Signed Hematology Technologist: Philip Singh MD (Physician) Related Notes: Original Note by Philip Singh MD (Physician) filed at 09/21/13 1800 [facility] Service: Hospitalist Physician Discharge Summary Patient ID: Nohemi Espitia 1960 53 y.o. Admit date: 09/19/2013 Discharge date: Admitting Physician: Geovanny Law MD Discharge Physician: Philip Singh MD Consultants: Treatment Team: Consulting Physician: Geovanny Law MD Consulting Physician: Nura Lee MD Admitting Provider: Geovanny Law MD Primary Discharge Diagnoses: Active Problems: Altered mental status Rhabdomyolysis Polypharmacy Marijuana abuse Dizziness and giddiness Hypotension, unspecified Back ache ARF (acute renal failure) Acidosis HPI and Hospital Course: The patient was admitted to [facility] on September 19, 2013, with significantly altered [...] significant improvement, and at the time of di scharge her total CK was only 519. She [...] be discharged home as noted above. Our [facility] management arranged for the patient to receive paid-for taxi transportation to her house hold in the [facility]. The family of the patient was not [...] suggestive of bronchitis versus mild interstitial edema. Carol Ann mckeon signed by Niall Jacome MD on 09/19/2013 5:20 PM Discharge Vitals: Filed Vitals: 09/21/13 0351 09/21/13 0836 09/21/13 1155 09/21/13 1554 BP: 121/55 145/75 163/87 150/89 Pulse: 74 84 74 77 Temp: 98.1 F (36.7 C) 98.4 F (36.9 C) 97.7 F (36.5 C) 97.7 F (36.5 C) TempSrc: Oral Oral Oral Oral Resp: 18 16 16 Height: Weight: 112.855 kg (248 [...] or Self Care Follow up: ANURAG Winters [address] [place] [address] Schedule an appointment as soon as possible [...] needed for muscle spasm and tightness ergocalciferol 87423 UNITS capsule QTY: 12 capsule Refills: 0 For diagnoses: Low Vitamin D Level Commonly known as: DRISDOL Take 1 capsule by mouth once a week. estradiol 0.1 MG/GM vaginal cream QTY: 42.5 g Refills: 12 For diagnoses: Loss Of Bladder Control, Painful Sexual [place], Fallen Bladder, [place] g Of Female Genital [...] Notes by Marce Garcia RPH at 09/21/13 115 Author: Marce Garcia RPH Service: (none) Author Type: Pharmacist Filed: 09/21/131149 Date of Service: 09/21/131149 Status: Signed Hematology Technologist: Marce Garcia RPH (Pharmacist) Clinical Pharmacy Note: [...] renal function an d adjust accordingly. Marce Garcia, [facility] 09/21/2013 11:49 AM Nura Thomas - 09/21/2013 11:12 AM PDTFormatting of this note might be different from the or iginal. Progress Notes by Nura Lee MD at 09/21/13 1112 Author: Nura Lee MD Service: Nephrology Author Type: Physician Filed: 09/21/13 1439 Date of Service: 09/21/13 1112 Status: Signed Hematology Technologist: Nura Lee MD (Physician) [facility] Service: NEPHROLOGY progress Note Nohemi Espitia 53 y.o. [id number] 315/315-1 female [facility] Day: LOS: 2 days The patient is [...] and tightness 75 tablet 0 ergocalciferol (DRISDOL) 18308 UNITS capsule Take 1 capsule by mouth [...] mL/min/1.73m2 IMAGING: Ct Head Non-con 09/19/[address] HEAD WO CONTRAST HISTORY: 53 [...] Progress Notes by Aury Belcher RN at 09/21/13 6315 Author: Aury Belcher RN Service: (none) Author Type: Registered Nurse Filed: 09/21/13 0502 Date of Service: 09/21/13458 Status: Signed Hematology Technologist: Aury Belcher RN (Registered Nurse) Patient alert [...] of this note might be different from th e original. Progress Notes by Philip Singh MD at 09/20/13 3360 Author: Philip Singh MD Service: (none) Author Type: Physician Filed: 09/21/13 0926 Date of Service: 09/20/131718 Status: Signed Hematology Technologist: Philip Singh MD (Physician) Related Notes: Original Note by Philip Singh MD (Physician) filed at 09/20/13 1802 [facility] Service: Hospitalist Progress Note Pt: Nohemi Espitia AGE/SEX: 53 y.o. female : 1960 ROOM: [facility]315-1 " HISTORY OF PRESENT ILLNESS The patient [...] and confused. Hence, she was referred to [facility] where the patient's blood pressure [...] any meaningful history from her. Per Dr. Juarez, the patient told her that her brother [...] ........as per admitting M Catie ( Dr. Law). TODAY'S DATE: 09/20/2013 Hospital Day: LOS: 1 [...] speech. She is unable to concentrate. Sh feliciano is unable to maintain conversation with her [...] arrest and intubation at a hospital in [place] as per the patient/niece's report. During my [...] and confused. She was subsequently transferred to [facility] emergency room for evaluation. She was [...] Singh MD 09/20/2013 5:19 PM onversion Transa rosendoion, Provider Unknown - 09/20/2013 3:45 PM PDT Case Management by OG Bailey at 09/20/13 9116 Author: OG Bailey Service: (none) Author Type: Cream Separator Operator Filed: 09/20/13 9744 Date of Service: 09/20/13 1545 Status: Addendum Hematology Technologist: OG Bailey (Cream Separator Operator) Related Notes: Original Note by OG Bailey (Cream Separator Operator) filed at 09/20/13 1550 09/20/13 1500 Discharge Planning Evaluation Admitting Diagnosis [...] ill return to her Mobile Home in [place], [place]. Pt stated that her relative will [...] return to her prior living situation in [place], [place] Roslyn Springer Nura Thomas - 09/20/2013 1:04 PM PDTFormatting of this note might be different from the or iginal. Progress Notes by Nura Lee MD at 09/20/13 1304 Author: Nura Lee MD Service: Nephrology Author Type: Physician Filed: 09/20/13 1317 Date of Service: 09/20/13 1304 Status: Signed Hematology Technologist: Nura Lee MD (Physician) [facility] Service: NEPHROLOGY progress Note Nohemi Espitia 53 y.o. [id number] 315/[id number] female [facility] Day: LOS: 1 day The patient is [...] and tightness 75 tablet 0 ergocalciferol (DRISDOL) 79803 UNITS capsule Take 1 capsule by mouth [...] 09/19/131836 Date of Service: 09/19/131836 Status: Signed Hematology Technologist: Marce Garcia RPH (Pharmacist) Clinical Pharmacy Note: Renal Monitoring Nohemi Espitia 53 y.o. female Ht Readings from Last 1 Encounters: 09/19/13 1.702 m (5' 7") Wt Readings from Last 1 Encounters: 09/19/13 107.049 kg (236 lb) CREATININE: 2.26 mg/dL ABNORMAL (09/19/13 1320) Estimated creatinine clearance - Cockcroft-Gault CrCl: 36.3 mL/min Pharmacy dosing for renal function per Dr. Law. Will order the following dosage adjustments: Ranitidine 150 mg po Q24h Pharmacy will continue to monitor for changes in medication orders and in renal function an d adjust accordingly. Marcedana Garcia, [facility] 09/19/2013 6:37 PM docume nted in this encounter H&P Notes Geovanny Law MD - 09/19/2013 3:24 PM PDT H&P by Geovanny Law MD at 09/19/13 4664 Author: Geovanny Law MD Service: Hospitalist Author Type: Physician Filed: 09/19/13 9605 Date of Service: 09/19/13 1524 Status: Signed Hematology Technologist: Geovanny Law MD (Physician) Related Notes: Original Note by Geovanny Law MD (Physician) filed at 09/19/13 0876 Admission History & Physical Date of Admission: 09/19/2013 CHIEF COMPLAINT: Somnolent and confuse HISTORY OF PRESENT ILLNESS The patient is [...] and confused. Hence, she was referred to [facility] where the patient's blood pressure [...] any meaningful history from her. Per Dr. Juarez, the patient told her that her brother [...] secondary to polypharmacy, as well as marijuana abuse. Past Medical History Diagnosis Date Anxiety Hypertension Thyroid disease Depression Prior to Admission medications Medication Sig Start Date End Date Taking? Authorizing Provider albuterol (PROVENTIL) (2.5 MG/3ML) 0.083% nebulizer solution Take 6 mLs by nebulization leno ry 6 (six) hours as needed for Wheezing. 06/22/13 06/22/14 Navneet Stewart DO baclofen (LIORESAL) 10 MG tablet Take 1-2 tabs po q 8hrs as needed for muscle spasm and tig htness 08/15/13 Rosemary Perea MD ergocalciferol (DRISDOL) 80872 UNITS capsule Take 1 capsule by mouth once a week. 08/29/13 ANURAG Winters estradiol (ESTRACE VAGINAL) 0.1 MG/GM vaginal cream Place one gram vaginally qhs x 2 weeks, then begin using one gram vaginally three times weekly at night. 07/02/13 Misha Dye MD FLUoxetine (PROZAC) 40 MG capsule Take 1 capsule by mouth daily. 06/25/13 ANURAG Winters gabapentin (NEURONTIN) 100 MG capsule Take 1 capsule by mouth 2 (two) times daily. 08/25/13 08/25/14 Rosemary Perea MD gabapentin (NEURONTIN) 300 MG capsule Take 600 mg by mouth nightly. Historical Provider guaifenesin-codeine (ROBITUSSIN-CODEINE) 100-10 MG/5ML syrup Take 10 mLs by mouth 3 (three) times daily as needed for Cough. 09/02/13 ANURAG Winters hydrALAZINE (APRESOLINE) 25 MG tablet Take 1-2 tablets PO every 8 hours as needed for anxie ty 09/18/13 ANURAG Winters ipratropium-albuterol (COMBIVENT) 18-103 MCG/ACT inhaler Inhale 2 puffs into the lungs ever y 6 (six) hours as needed for Wheezing. 09/02/13 ANURAG Winters levothyroxine (SYNTHROID, LEVOTHROID) 25 MCG tablet Take 1 tablet by mouth every morning be fore breakfast. 06/25/13 06/25/14 ANURAG Winters lisinopril (PRINIVIL,ZESTRIL) 10 MG tablet Take 1 tablet by mouth daily. 06/25/13 ANURAG Winters loratadine (CLARITIN) 10 MG tablet Take 1 tablet by mouth daily. 08/22/13 ANURAG Winters LORazepam (ATIVAN) 1 MG tablet Take 1 tablet by mouth every 6 (six) hours as needed for Anx iety. 09/15/13 ANURAG Winters methocarbamol (ROBAXIN) 750 MG tablet take 1 tablet by mouth three times a day if needed Rosemary Perea MD OLANZapine (ZYPREXA) 10 MG tablet Take 1 tablet by mouth nightly. 06/27/13 ANURAG Winters oxyCODONE-acetaminophen (PERCOCET) 10-325 MG per tablet Take 1 tablet by mouth every 3 (thr ee) hours as needed for Pain. 09/19/13 Rosemary Perea MD ranitidine (ZANTAC) 150 MG tablet Take 1 tablet by mouth 2 (two) times daily. 08/22/13 Col ANURAG Hanson solifenacin (VESICARE) 10 MG tablet Take 1 tablet by mouth daily. 08/07/13 08/07/14 Misha naidu MD Spacer/Aero-Holding Chambers (AEROCHAMBER MV) inhaler For use with inhalers 06/22/13 06/22/14 Navneet Stewart DO varenicline (CHANTIX) 1 MG tablet Take 1 tablet by mouth 2 (two) times daily. 06/24/13 ANURAG Winters oxyCODONE-acetaminophen (PERCOCET) 10-325 MG per tablet Take 2 tablets by mouth every 4 (fo ur) hours as needed for Pain. 09/01/13 09/19/13 Rosemary Perea MD Past Surgical History Procedure Date Hysterectomy Cholecystectomy Appendectomy Bladder surgery [facility] 07/14/2013 [facility] 08/06/2013 (Not in a hospital admission) No Known Allergies Family History Problem Relation [...] Social History Narrative No narrative on file Review of Systems:not able to obtained as patient is very somnolent though said no to ches t pain ,sob ,neck pain ,nausea/vomiting. Physical Exam: BP 89/58 | Pulse 61 | Temp 97.3 F (36.3 C) (Tympanic) | Resp 14 | SpO2 93% General Appearance: Alert to person,very somnolent HEENT: Normocephalic, atraumatic, o/p clear,dry mucus membrane NECK: is supple with no carotid bruit CHEST:Lungs clear to auscultation with no wheezing, No rales or rhonchi HEART:Regular rate and rhythm without murmur, No gallop or rubs ABDOMEN:Bowel sound is normoactive, abdomen is soft, non-tender non-distended ,no mass and no CVA tenderness EXTREMITIES:No lower extermity edema, No clubbing or cyanosis bilaterally NEURO: moving Both upper extremities and able to question some answers in yes or no ,full y neuro exam was not performed as patient extremely somnolent SKIN: No bruises, rashes, lesions DATA CBC: Lab Results Component Value Date WBC 9.0 09/19/2013 RBC 3.96 09/19/2013 HGB 11.9 09/19/2013 HCT 35.3 09/19/2013 MCV 89.0 09/19/2013 MCH 30.1 09/19/2013 MCHC 33.8 09/19/2013 RDW 45.5 09/19/2013 PLT 443* 09/19/2013 MPV 7.3 09/19/2013 DIFFTYPE AUTOMATED 09/19/2013 CMP: Lab Results Component Value Date NA 141 09/19/2013 K 4.5 09/19/2013 CL 110* 09/19/2013 CO2 20* 09/19/2013 ANIONGAP 15 09/19/2013 GLUF 94 09/19/2013 BUN 30* 09/19/2013 CREATININE 2.26* 09/19/2013 BCR 14 09/19/2013 CA 9.5 09/19/2013 PROT 8.2 09/19/2013 ALB 3.3* 09/19/2013 GLOB 4.9 09/19/2013 BILITOT 0.2 09/19/2013 ALP 108 09/19/2013 AST 153* 09/19/2013 ALT 74* 09/19/2013 EGFR 24* 09/19/2013 Albumin: Lab Results Component Value Date ALB 3.3* 09/19/2013 Magnesium: No results found for this basename: MG Phosphorus: No results found for this basename: PHOS PT/INR: Lab Results Component Value Date INR 1.0 09/19/2013 Troponin: No results found for this basename: TROPONINI Last 3 Troponin: No results found for this basename: TROPONINI TSH: Lab Results Component Value Date TSH 0.61 09/19/2013 PROBLEM LIST Active Problems: Altered mental status Rhabdomyolysis Polypharmacy Marijuana abuse Dizziness and giddiness Hypotension, unspecified Back ache ARF (acute renal failure) ASSESSMENT & PLAN A 53-year-old female with past medical history of hypertension, hypothyroidism, chronic erich k pain, and depression who was referred from Dr. Crum's office where she presented with back pain followup and found to be somnolent, confused, and transferred to [facility] where she was found to have altered mental status, hypertension, rhabdomyolysis, a nd acute renal failure. A CT scan of the head was negative and no focal deficit otherwise. H e mental status was thought to be secondary to polypharmacy and urine toxicology showed don espinoza positive. 1. Altered mental status likely secondary to polypharmacy as well as marijuana abuse and me tabolic encephalopathy. Hold fluoxetine, gabapentin, lorazepam, oxycodone, and baclofen. CT head is negative. Observe the patient closely. 2. Rhabdomyolysis likely secondary to dehydration in the setting of poor p.o. intake. The p atient was given 2 L normal saline bolus and continue the patient on 200 mL normal saline. H old lisinopril and antihypertensive medications. 3. Acute renal failure secondary to dehydration. Continue the patient on normal saline 200 mL/h and Dr. Lee from nephrology service has been consulted. Avoid nephrotoxic agents, pearl cially NSAIDs, and hold lisinopril. 4. Dizziness which is likely secondary to low blood pressure secondary to dehydration as we ll as being on gabapentin in the setting of acute renal failure. Continue with IV hydration and observe closely. CT head negative. If dizziness continues to persist the next 24 hours, consider getting MRI of the brain. 5. Chronic back pain. Hold narcotics, baclofen and Robaxin at this point in time, and will use tramadol p.r.n. if needed. 6. DVT prophylaxis. On heparin. 7. Hypertension. Differential diagnosis includes infectious etiology is less likely as the patient's UA is negative. She is afebrile. Normal white count. No obvious signs or symptoms of infection. Will send urine and blood cultures and avoid starting any empiric antibiotics. I spent more than 65 minutes on admission. Disposition: floor Code Status: No Order Primary Care Physician: GER ALW MD 09/19/2013 documented in this en counter Consult Notes Nura Lee - 09/19/2013 4:12 PM PDT Consult* by Nura Lee MD at 09/19/13 1612 Author: Nura Lee MD Service: Nephrology Author Type: Physician Filed: 09/20/13 130 Date of Service: 09/19/13 1612 Status: Addendum Hematology Technologist: Nura Lee MD (Physician) Related Notes: Original Note by Nura Lee MD (Physician) filed at 09/20/13 1301 [facility] Service: NEPHROLOGY CONSULT Note Nohemi Espitia 53 y.o. [id number] [birth year] female [facility] Day: LOS: 0 days Date of Admission: 09/19/2013 Requesting Physician: Hospitalist Reason for CONSULTATION: ARF History Obtained From: patient, CARE TEAM, RECORDS HISTORY OF PRESENT ILLNESS The patient is a 53 y.o. female with significant past medical history of Chronic back pain secondary to spinal stenosis, history of depression, hypothyroidism, and hypertension who w ent to see Dr. Crum today for chronic back pain follow up requesting pain medications, and t he patient was found to be somnolent, drowsy, and confused so was referred to [facility] where the patient's blood pressure was found to be 84/46 and blood work showed normal white count, creatinine of 2.26, and CPK of 3032. UTOX is positive for marijuana. CT head is negative. Urinalysis was positive for trace bacteria by no pyuria. The patient was afebrile otherwise and found to be somnolent, though answered questions wit h yes and no and kept saying that she was feeling dizzy and not able to get any meaningful h istory from her. Per Dr. Juarez, the patient told her that her brother more than a week ago and she archuleta s been feeling very depressed, not eating and drinking, for more than a week now and continu ed to take her pain medications for chronic back pain. The patient was given 2 L of IV fluid bolus in the emergency department after which her blood pressure went up to 95/55, Nephrology called for acute renal failure, rhabdomyolysis, dehydration. Nephrology consulted for evaluation and management of ARF Lab Results Component Value Date BUN 30* 09/19/2013 BUN 10 08/15/2013 BUN 29* 06/24/2013 CREATININE 2.26* 09/19/2013 CREATININE 0.66 08/15/2013 CREATININE 0.92 06/24/2013 ONSET ACUTE severity SEVERE Associated with fluid electrolyte acid base imbalances RF: DECREASE PO INTAKE/ LOW BP/ HEMODYNAMIC EFFECT OF LISINOPRIL/ RHABDOMYOLYSIS ROS: Positive for: Fatigue, chronic back pain, drowsy, confused, dizzy No fever, chills, nausea or vomiting. No decreased vision, hearing loss, difficulty breathing. No headache, chest pain, abdominal pain, weakness or rash. No difficulty with urination or bowel movements. No other complaints. All systems otherwise negative, except as recorded above and as recorded in the HPI obtain from records/ er team cannot obtain in detail given change in MS. Past Medical History Diagnosis Date Anxiety Hypertension Thyroid disease Depression Past Surgical History Procedure Date Hysterectomy Cholecystectomy Appendectomy Bladder surgery [facility] 07/14/2013 [facility] 08/06/2013 (Not in a hospital admission) No Known Allergies Family History Problem Relation [...] Social History Narrative No narrative on file Social/ family h/o : As obtained above cannot obtain in detail given change in ms. Scheduled Medications Continuous Infusions [COMPLETED] sodium chloride Stopped (09/19/13 1441) sodium chloride Stopped (09/19/13 1541) sodium chloride Stopped (09/19/13 1543) sodium chloride PRN Medications naloxone Allergy: No Known Allergies OBJECTIVE Vital Signs: BP 89/58 | Pulse 61 | Temp 97.3 F (36.3 C) (Tympanic) | Resp 14 | SpO2 93% I&O Detailed Table: Weight change: Examination: APPEARANCE: The patient is lying in no apparent distress, drowsy , confused. VITALS: Reviewed as listed. HEAD: NC/AT. EYES: PERRLA. EOMI. Non-icteric sclera. ENT: No oropharyngeal erythema. Buccal mucosa is DRY. No gross ear or nasal proble ms noted. NECK: Supple. No raised JVD or thyromegaly. LYMPHATIC: No palpable lymphadenopathy. LUNGS: Clear to auscultation bilaterally. HEART: S1, S2, no pericardial rub noted. ABDOMEN: Full, soft, no tenderness. Bowel sounds are present. No organomegaly or bruit s noted. EXTREMITIES: no pedal edema noted. No cyanosis or clubbing. Peripheral pulses palpable . SKIN: Warm to touch. No rash or ecchymosis noted. NEUROLOGIC: No gross focal motor deficit noted. PSYCH: The patient is drowsy , confused. BACK: no CVA tenderness noted +VE ROJAS CATHETER LABS: Recent Results (from the past 24 hour(s)) ED ISTAT TROPONIN Component Value Range POC Troponin I 0.00 EKG 12 LEAD UNIT PERFORMED Collection Time 09/19/13 12:58 PM Component Value Range Ventricular Rate 76 Atrial Rate 76 P-R Interval 156 QRS Duration 88 Q-T Interval 408 QTC Calculation (Bezet) 459 Calculated P Maybell 10 Calculated R Maybell 26 Calculated T Maybell 20 Diagnosis Value: Normal sinus rhythm Normal ECG No previous ECGs available This ECG contains Unconfirmed Interpretation Statements. See ED Record for Physician In terpretation. Confirmed by MUSE READ ONLY, -COMPUTER ([id number]), medical editor JERAMY TRAORE ([id number]) on 09/19/2013 2:2 1:45 PM [facility] CARD PANEL W/O TRP (ED ONLY) Collection [...] BACTERIA TRACE (*) NONE SEEN Casts 11-15 IMAGING: Ct Head Non-con 09/19/2013 NOHEMI ESPITIA [...] unspecified Back ache ARF (acute renal failure) ASSESSMENT & PLAN ARF LIKELY POSSIBILITIES INCLUDE: Renal hypoperfusion IN THE SETTING OF DECREASE PO INTAKE/ LOW BP/ HEMODYNAMIC EFFECT OF LIS INOPRIL/ RHABDOMYOLYSIS R.O AIN R.O POST INFECTIOUS GLOMERULONEPHRITIS R.O HYDRONEPHROSIS Lab Results Component Value Date BUN 30* 09/19/2013 BUN 10 08/15/2013 BUN 29* 06/24/2013 CREATININE 2.26* 09/19/2013 CREATININE 0.66 08/15/2013 CREATININE 0.92 06/24/2013 Start IV FLUIDS Hold CHRIS-I LISNOPRIL KEEP MAP GREATER THAN 65 MM HG Urine studies ordered C3, C4 levels US Renal R.O hydropnephrosis Strict I & O, Daily weights Daily RFP Renal diet AVOID NSAIDS/ MARTINEZ-2 INHIBITORS AVOID NEPHROTOXIC MEDS INCLUDING AMINOGLYCOSIDES/ IV CONTRAST Assess daily for need for hd Dose all meds for crcl less than 15 mls/min HYPOTENSION KEEP MAP GREATER THAN 65 MM HG RHABDOMYOLYSIS CPK 3032 IV FLUIDS ACIDOSIS: LIKELY SECONDARY TO ARF WATCH CLOSELY FOR NOW ALTERED MS C HEAD NEGATIVE, U.TOX +VE FOR THC PER HOSPITALIST CASE DISCUSSED IN DETAIL WITH PATIENT/ HOSPITALIST, ANSWERS ALL QUESTIONS IN DETAIL, JULIUS GALEANO UNDERSTANDING I thank Dr LAW for giving me the opportunity to take part in the care of this blank chance ent with multiple complex medical problems NURA LEE MD 09/19/2013 GER FULTON documented in this en counter ED Notes Conversion Transaction, Provider Unknown - 09/19/2013 2:39 PM PDTFormatting of this note m ight be different from the original. ED Notes by Shine Franco RN at 09/19/13 8449 Author: Shine Franco RN Service: (none) Author Type: Registered Nurse Filed: 09/19/13 143 Date of Service: 09/19/131438 Status: Signed Hematology Technologist: Shine Franco RN (Registered Nurse) MD at bedside. Otis hospitalist Shine Franco RN 09/19/13 143 onver david Transaction, Provider Unknown - 09/19/2013 1:37 PM PDT ED Notes by Shine Franco RN at 09/19/131336 Author: Shine Franco RN Service: (none) Author Type: Registered Nurse Filed: 09/19/131337 Date of Service: 09/19/131336 Status: Signed Hematology Technologist: Shine Franco RN (Registered Nurse) Pt is asleep with long even breaths and did not awaken to placing monitors. Shine Franco RN 09/19/131337 hApple reaves MD - 09/19/2013 1:03 PM PDTFormatting of this note might be different from the or iginal. ED Provider Notes by Apple Juarez MD at 09/19/13 1303 Author: Apple Juarez MD Service: (none) Author Type: Physician Filed: 09/19/131941 Date of Service: 09/19/13 1303 Status: Signed Hematology Technologist: pAple Juarez MD (Physician) Procedure Orders: 1. Critical Care [[id number]] ordered by Apple Juarez MD at 09/19/131940 Merged With [facility] Department of Emergency Medicine History of Present Illness Patient Identification Nohemi Espitia is a 53 y.o. female. Patient information was obtained from patient. History/Exam limitations: none. Patient presented to the Emergency Department [place] [address] Room:315/315-1 Chief Complaint Chief Complaint Patient presents with Fatigue 53 y.o. female with fatigue. Patient states that her brother approximately a week and a half ago and she's been having a hard time dealing with the stress from the situation. She said that he's not eating and drinking well and she is concerned that she may be dehydrated . She is not sleeping as well. She spoke with her doctor about this yesterday and she was pr escribed hydralazine to help with her stress and sleep disorder. She states that the medicin e didn't work last night. She had a preoperative check for her spinal stenosis at the [facility] [place] today and they referred her to the emergency department for her fatigue. She denies any focal weakness, numbness, tingling. No headache, chest pain, shortness of breath. No recent illnesses. Symptoms are described as moderate in severity. No aggravating or alejo viating factors. Primary Care Doctor: GER FULTON Past Medical History Diagnosis Date Anxiety Hypertension Thyroid disease Depression Past Surgical History Procedure Date Hysterectomy Cholecystectomy Appendectomy Bladder surgery [facility] 07/14/2013 [facility] 08/06/2013 Prior to Admission medications Medication Sig Start Date End Date Taking? Authorizing Provider albuterol (PROVENTIL) (2.5 MG/3ML) 0.083% nebulizer solution Take 6 mLs by nebulization leno ry 6 (six) hours as needed for Wheezing. 06/22/13 06/22/14 Navneet Stewart, baclofen (LIORESAL) 10 MG tablet Take 1-2 tabs po q 8hrs as needed for muscle spasm and tig htness 08/15/13 Rosemary Perea MD ergocalciferol (DRISDOL) 22643 UNITS capsule Take 1 capsule by mouth once a week. 08/29/13 ANURAG Winters estradiol (ESTRACE VAGINAL) 0.1 MG/GM vaginal cream Place one gram vaginally qhs x 2 weeks, then begin using one gram vaginally three times weekly at night. 07/02/13 Misha Dye MD FLUoxetine (PROZAC) 40 MG capsule Take 1 capsule by mouth daily. 06/25/13 ANURAG Winters gabapentin (NEURONTIN) 100 MG capsule Take 1 capsule by mouth 2 (two) times daily. 08/25/13 08/25/14 Rosemary Perea MD gabapentin (NEURONTIN) 300 MG capsule Take 600 mg by mouth nightly. Historical Provider guaifenesin-codeine (ROBITUSSIN-CODEINE) 100-10 MG/5ML syrup Take 10 mLs by mouth 3 (three) times daily as needed for Cough. 09/02/13 ANURAG Winters hydrALAZINE (APRESOLINE) 25 MG tablet Take 1-2 tablets PO every 8 hours as needed for anxie ty 09/18/13 ANURAG Winters ipratropium-albuterol (COMBIVENT) 18-103 MCG/ACT inhaler Inhale 2 puffs into the lungs ever y 6 (six) hours as needed for Wheezing. 09/02/13 ANURAG Winters levothyroxine (SYNTHROID, LEVOTHROID) 25 MCG tablet Take 1 tablet by mouth every morning be fore breakfast. 06/25/13 06/25/14 ANURAG Winters lisinopril (PRINIVIL,ZESTRIL) 10 MG tablet Take 1 tablet by mouth daily. 06/25/13 ANURAG Winters loratadine (CLARITIN) 10 MG tablet Take 1 tablet by mouth daily. 08/22/13 ANURAG Winters LORazepam (ATIVAN) 1 MG tablet Take 1 tablet by mouth every 6 (six) hours as needed for Anx iety. 09/15/13 ANURAG Winters methocarbamol (ROBAXIN) 750 MG tablet take 1 tablet by mouth three times a day if needed Rosemary Perea MD OLANZapine (ZYPREXA) 10 MG tablet Take 1 tablet by mouth nightly. 06/27/13 ANURAG Winters oxyCODONE-acetaminophen (PERCOCET) 10-325 MG per tablet Take 1 tablet by mouth every 3 (thr ee) hours as needed for Pain. 09/19/13 Rosemary Perea MD ranitidine (ZANTAC) 150 MG tablet Take 1 tablet by mouth 2 (two) times daily. 08/22/13 ANURAG Lutz solifenacin (VESICARE) 10 MG tablet Take 1 tablet by mouth daily. 08/07/13 08/07/14 Misha naidu MD Spacer/Aero-Holding Chambers (AEROCHAMBER MV) inhaler For use with inhalers 06/22/13 06/22/14 Navneet Stewart DO varenicline (CHANTIX) 1 MG tablet Take 1 tablet by mouth 2 (two) times daily. 06/24/13 ANURAG Winters oxyCODONE-acetaminophen (PERCOCET) 10-325 MG per tablet Take 2 tablets by mouth every 4 (fo ur) hours as needed for Pain. 09/01/13 09/19/13 Rosemary Perea MD No Known Allergies History Social History Marital [...] Social History Narrative No narrative on file Family History Problem Relation Age of Onset Breast cancer Sister Skin cancer Sister Ovarian cancer Sister Heart disease Mother Diabetes Father Review of Systems Positive for: Fatigue, chronic back pain, decreased No fever, chills, nausea or vomiting. No decreased vision, hearing loss, difficulty breathing. No headache, chest pain, abdominal pain, weakness or rash. No difficulty with urination or bowel movements. No other complaints. See HPI for further relevant details. All systems otherwise negative, except as recorded above and as recorded in the HPI. Physical Exam Filed Vitals: 09/19/13 1719 BP: 119/56 Pulse: 59 Temp: 97.4 F (36.3 C) Resp: 16 SpO2: 93% INTERPRETATION OF VITALS Pulse Oximetry interpretation: Normal Otherwise normal PHYSICAL EXAM Appearance: Alert. No acute distress. Head: Normal external exam. Eyes: EOMI, PERRL, no scleral icterus. ENT: Normal external ENT inspection. Neck: Supple. FROM. CVS: Normal heart rate and rhythm. Heart sounds normal. Pulses normal. Respiratory: No respiratory distress. No wheezing, rales, or rhonchi. Abdomen: Soft and nontender. No rebound or guarding. Obese. Genitourinary: Deferred. Back: Moves without difficulty. Skin: Skin warm and dry. Extremities: No deformity. No edema. Neuro: Moves all extremities. No gross deficit. Medical Decision Making and Emergency Department Course ED Department Course: 1:03 PM Nohemi Espitia is a 53 y.o. female who presents with a chief complaint of fatigue and gri ef. Patient states she's not eating and drinking well as part of her stress from losing her brother recently. She states that she just wants something for her nerves to help her sleep. She denies any homicidal or suicidal ideation. We'll obtain routine screening labs and prov mary hydration while waiting for the results.. 2:12 PM Laboratory studies show that the patient is in acute renal failure with rhabdomyolysis. She 's already had 1 L of fluids with no urine output. Will insert a Rojas catheter to monitor o utput and continue to aggressively hydrate her. The patient will require admission to the [facility] for stabilization of her condition and further evaluation. I will contact the [facility] list for admission. 2:36 PM BP has dropped. Will continue aggressive hydration. Patient states she feels dizzy, but i s mentating well. Making urine. Dr. Law now at bedside. 3:38 PM BP continues to improve. Dr. Law now comfortable taking her to the floor. Records Reviewed Old medical records. Nursing notes. Laboratory Evaluation Results Procedure Component Value Ref Range Date/Time Drugs of Abuse Screen, UR (Hospital And ED Only) [[id number]] (Abnormal) Collected:09/19 1428 Order Status:Completed Updated:09/19/13 1505 Specimen Information:Urine, Clean Catch AMPHETAMINE/METHAMPHETAMINE NEGATIVE NEGATIVE BARBITUATES NEGATIVE NEGATIVE BENZODIAZEPINE NEGATIVE NEGATIVE COCAINE NEGATIVE NEGATIVE METHADONE NEGATIVE NEGATIVE OPIATES NEGATIVE NEGATIVE PCP NEGATIVE NEGATIVE THC POSITIVE (A) NEGATIVE Urine Microscopic [[id number]] (Abnormal) Collected:09/19/13 1429 Order Status:Completed Updated:09/19/13 1456 Specimen Information:Urine / Urine, Catheter WBC 0-2 0 - 5 /hpf RBC 0-2 0 - 5 /hpf EPITHELIAL 6-10 /lpf BACTERIA TRACE (A) NONE SEEN Casts 11-15 /lpf Myoglobin, urine [[id number]] Collected:09/19/13 1428 Order Status:Completed Updated:09/19/13 1450 Specimen Information:Urine / Urine, Clean Catch MYOGLOBIN SCREEN NEGATIVE Ethanol Level [[id number]] Collected:09/19/13 1320 Order Status:Completed Updated:09/19/13 1445 Specimen Information:Blood ALCOHOL,ETHYL <3 <10 mg/dL POC clinitek 10 [[id number]] (Abnormal) Collected:09/19/13 1419 Order Status:Completed Updated:09/19/13 1424 Color, UA YELLOW Clarity, UA CLEAR Glucose, UA NEGATIVE NEGATIVE mg/dL Bilirubin, UA NEGATIVE NEGATIVE Ketones, UA NEGATIVE NEGATIVE mg/dL Spec Grav, UA 1.020 1.001 - 1.035 Blood, UA TRACE (A) NEGATIVE pH, UA 6.0 4.6 - 8.0 Protein, UA 30 (A) NEGATIVE mg/dL Urobilinogen, UA 0.2 <1.1 mg/dL Nitrite, UA NEGATIVE NEGATIVE WBC, UA NEGATIVE NEGATIVE Cardiac Panel [[id number]] (Abnormal) Collected:09/19/13 1320 Order Status:Completed Updated:09/19/13 1401 WBC 9.0 3.8 - 11.0 K/uL RBC 3.96 3.70 - 5.10 M/uL HGB 11.9 11.3 - 15.5 g/dL HCT 35.3 34.0 - 46.0 % MCV 89.0 80.0 - 100.0 fl MCH 30.1 27.0 - 34.0 pg MCHC 33.8 32.0 - 35.5 g/dL RDW SD 45.5 37 - 53 fl PLT 443 (H) 150 - 400 K/uL MPV 7.3 fl DIFF TYPE AUTOMATED NEUTROPHILS 60.4 % LYMPHOCYTES 26.9 % MONOCYTES 8.0 % EOSINOPHILS 4.0 % BASOPHILS 0.7 % NEUTROPHILS ABS 5.4 1.9 - 7.4 K/uL LYMPHOCYTES ABS 2.4 1.0 - 3.9 K/uL MONOCYTES ABS 0.7 0 - 0.8 K/uL EOSINOPHILS ABS 0.4 0 - 0.5 K/uL BASOPHILS ABS 0.1 0 - 0.1 K/uL SODIUM 141 135 - 143 mmol/L POTASSIUM 4.5 3.5 - 4.9 mmol/L CHLORIDE 110 (H) 99 - 109 mmol/L CO2 20 (L) 23 - 32 mmol/L ANION GAP AGAP 15 5 - 20 mmol/L GLUCOSE 94 65 - 99 mg/dL BUN 30 (H) 8 - 25 mg/dL CREATININE 2.26 (H) 0.50 - 1.00 mg/dL BUN/CREAT 14 CALCIUM 9.5 8.5 - 10.2 mg/dL TOTAL PROTEIN 8.2 6.3 - 8.2 g/dL Albumin 3.3 (L) 3.6 - 5.0 g/dL GLOBULIN 4.9 1.3 - 4.9 g/dL A/G 0.7 (L) 1.0 - 2.4 TBIL 0.2 0.1 - 1.5 mg/dL ALK PHOS 108 35 - 115 U/L AST 153 (H) 10 - 45 U/L ALT 74 (H) 10 - 65 U/L EGFR 24 (L) >60 mL/min/1.73m2 CPK 3032 (H) 30 - 240 U/L INR 1.0 APTT 23 23 - 32 seconds MMB 53.7 (H) 0.5 - 3.6 ng/mL CK-MB Index 1.8 TSH [[id number]] Collected:09/19/13 1320 Order Status:Completed Updated:09/19/13 1401 Specimen Information:Blood TSH 0.61 0.45 - 5.10 uIU/mL Ammonia Level [[id number]] Collected:09/19/13 1320 Order Status:Completed Updated:09/19/13 1401 Specimen Information:Blood AMMONIA 30 <33 umol/L C-Reactive Protein [[id number]] (Abnormal) Collected:09/19/13 1320 Order Status:Completed Updated:09/19/13 1353 Specimen Information:Blood CRP 3.4 (H) <0.5 mg/dL T4, Free [[id number]] Collected:09/19/13 1320 Order Status:Completed Updated:09/19/13 1353 Specimen Information:Blood FREE T4 1.1 0.7 - 1.5 ng/dL POC cardiac troponin [[id number]] Collected:09/19/13 1326 Order Status:Completed Updated:09/19/13 1340 POC CARDIAC TROPONIN 0.00 0.00 - 0.10 ng/mL Lab Interpretation I have reviewed lab results from the emergency department workup and abnormal results have been posted to the chart. Pertinent positive and negative findings have been addressed appr opriately. Radiology and EKG Evaluation Imaging Results CT Head Non-Con (Final result) Result time:09/19/13 1509 Final result by Rad Results In Dhiraj (09/19/13 15:09:13) Impression: 1. Unremarkable CT head without contrast. Narrative: NOHEMI ESPITIA CT HEAD WO CONTRAST HISTORY: 53 years. Female. Altered mental status. TECHNIQUE: CT examination the head was performed without contrast. COMPARISON: None. FINDINGS: No abnormal areas of increased or decreased density seen throughout the brain. No mass, hem orrhage, midline shift, or extra-axial fluid collection. ECG from 1258: Normal sinus rhythm at 76 bpm. OH, QRS, QT, and axis are normal. No ST segme nt elevations or depression. No significant Q waves. Good R wave progression through the pre cordial leads. No acute ischemia. No old ECG for comparison. This study has been independen tly viewed and interpreted by me. ED Diagnoses Final diagnoses Acute renal failure Transient hypotension Spinal stenosis Altered level of consciousness Disposition: ED Disposition Admit/Observation Bed request special needs: None Diagnosis?: acute renal failure, rhabdo, Follow-up Information None Discharge Medications: New Prescriptions No new medications This document has been prepared with a voice recognition system. The possibility of "sound alike" security operations engineer errors, addition and/or deletions may occur. If there is any question p lease contact the author of the document. Additional Documentation Critical Care Performed by: APPLE JUAREZ Authorized by: APPLE JUAREZ Total critical care time: 35 minutes Critical care time was exclusive of separately billable procedures and treating other patie nts. Critical care was necessary to treat or prevent imminent or life-threatening deterioration of the following conditions: shock. Critical care was time spent personally by me on the following activities: evaluation of pa tient's response to treatment, ordering and performing treatments and interventions, pulse o ximetry, development of treatment plan with patient or surrogate, examination of patient, or dering and review of laboratory studies, re-evaluation of patient's condition, discussions w [facility] consultants, interpretation of cardiac output measurements, obtaining history from patie nt or surrogate, ordering and review of radiographic studies and review of old charts. Apple Juarez MD 09/19/131941 onversion Transactio n, Provider Unknown - 09/19/2013 12:52 PM PDT ED Notes by Shine Franco RN at 09/19/13 6951 Author: Shine Franco RN Service: (none) Author Type: Registered Nurse Filed: 09/19/13 1252 Date of Service: 09/19/131251 Status: Signed Hematology Technologist: Shine Franco RN (Registered Nurse) Bed:08
Expected date:
Expected time:
Means of arrival:
Comments:
docume nted in this encounter Plan of Treatment Not on filedocumented as of this encounter Procedures + +--------+ + + + | Procedure Name | Priori | Date/Time | Associated Diagnosis | Comments | | | ty | | | | + +--------+ + + + | EXTERNAL LAB: [facility] | Routin | 09/21/2013 | | Results [...] EXTERNAL | | | | performed at [facility], [address] | | LAB | | | | [address], | | | | | | [place] [address] | | | | + + + + + + | Non- | 3.63 (L)Comment: Testing | 3.70 - 5.10 | EXTERNAL | | | Red Blood | performed at [facility], [address] | M/uL | LAB | | | Cells | [address] [facility] [address], | | | | | Counted | [place] [address] | | | | + + + + + + | Hemoglobin | 10.9 (L)Comment: Testing | 11.3 - 15.5 | EXTERNAL | | | | performed at [facility], [address] | g/dL | LAB | | | | [address], | | | | | | [place] [address] | | | | + + + + + + | Hematocrit, | 33.2 (L)Comment: Testing | 34.0 - 46.0 % | EXTERNAL | | | POC | performed at [facility], [address] | | LAB | | | | [address], | | | | | | [place] [address] | | | | + + + + + + | MCV | 91.6Comment: Testing | 80.0 - 100.0 fl | EXTERNAL | | | | performed at [facility], [address] | | LAB | | | | [address], | | | | | | [place] [address] | | | | + + + + + + | MCH | 30.1Comment: Testing | 27.0 - 34.0 pg | EXTERNAL | | | | performed at [facility], [address] | | LAB | | | | [address], | | | | | | [place] [address] | | | | + + + + + + | MCHC | 32.9Comment: Testing | 32.0 - 35.5 | EXTERNAL | | | | performed at [facility], [address] | g/dL | LAB | | | | [address], | | | | | | [place] [address] | | | | + + + + + + | RDW-CV | 45.9Comment: Testing | 37 - 53 fl | EXTERNAL | | | | performed at [facility], [address] | | LAB | | | | [address], | | | | | | [place] [address] | | | | + + + + + + | Platelet | 314Comment: Testing | 150 - 400 K/uL | EXTERNAL | | | Count | performed at [facility], [address] | | LAB | | | Plasma | [address], | | | | | | [place] [address] | | | | + + + + + + | MPV | 7.5Comment: Testing | fl | EXTERNAL | | | | performed at [facility], [address] | | LAB | | | | [address], | | | | | | [place] [address] | | | | + + + + + + | Differentia | AUTOMATEDComment: | | EXTERNAL | | | l Type | Testing performed at | | LAB | | | | [facility], [address] | | | | | | [place] | | | | | | [address] | | | | + + + + + + | % Segmented | 39.7Comment: Testing | % | EXTERNAL | | | | performed at [facility], [address] | | LAB | | | Neutrophils | [address], | | | | | | [place] [address] | | | | + + + + + + | % | 48.1Comment: Testing | % | EXTERNAL | | | Lymphocytes | performed at [facility], [address] | | LAB | | | [address], | | | | | | [place] [address] | | | | + + + + + + | % Monocytes | 6.6Comment: Testing | % | EXTERNAL | | | | performed at [facility], [address] | | LAB | | | | [address], | | | | | | [place] [address] | | | | + + + + + + | % | 5.3Comment: Testing | % | EXTERNAL | | | Eosinophils | performed at [facility], [address] | | LAB | | | | [address], | | | | | | [place] [address] | | | | + + + + + + | % Basophils | 0.3Comment: Testing | % | EXTERNAL | | | | performed at [facility], [address] | | LAB | | | | [address], | | | | | | [place] [address] | | | | + + + + + + | Absolute | 2.5Comment: Testing | 1.9 - 7.4 K/uL | EXTERNAL | | | Segmented | performed at [facility], [address] | | LAB | | | Neutrophils | [address], | | | | | | [place] [address] | | | | + + + + + + | Absolute | 3.0Comment: Testing | 1.0 - 3.9 K/uL | EXTERNAL | | | Lymphocytes | performed at [facility], [address] | | LAB | | | | [address], | | | | | | [place], [place] [address] | | | | + + + + + + | Absolute | 0.4Comment: Testing | 0 - 0.8 K/uL | EXTERNAL | | | Monocytes | performed at [facility], [address] | | LAB | | | | [address], | | | | | | [place] [address] | | | | + + + + + + | Absolute | 0.3Comment: Testing | 0 - 0.5 K/uL | EXTERNAL | | | Eosinophils | performed at [facility], [address] | | LAB | | | | [address], | | | | | | [place] [address] | | | | + + + + + + | Absolute | 0.0Comment: Testing | 0 - 0.1 K/uL | EXTERNAL | | | Basophils | performed at [facility], [address] | | LAB | | | | [address], | | | | | | [place] [address] | | | | + + + [...] EXTERNAL | | | | performed at [facility], [address] | | LAB | | | | [address], | | | | | | [place] [address] | | | | + + + [...] | LAB | | | | [address], [place] | | | | | | [address] | | | | + + + [...] EXTERNAL | | | | performed at [facility], [address] | mmol/L | LAB | | | | [address], | | | | | | [place] [address] | | | | + + + + + + | K | 4.2Comment: Testing | 3.5 - 4.9 | EXTERNAL | | | | performed at [facility], [address] | mmol/L | LAB | | | | [address], | | | | | | [place] [address] | | | | + + + + + + | Cl | 114 (H)Comment: Testing | 99 - 109 mmol/L | EXTERNAL | | | | performed at [facility], [address] | | LAB | | | | [address], | | | | | | [place] [address] | | | | + + + + + + | CO2 | 21 (L)Comment: Testing | 23 - 32 mmol/L | EXTERNAL | | | | performed at [facility], [address] | | LAB | | | | [address], | | | | | | [place] [address] | | | | + + + + + + | Anion Gap | 9Comment: Testing | 5 - 20 mmol/L | EXTERNAL | | | | performed at [facility], [address] | | LAB | | | | [address], | | | | | | [place] [address] | | | | + + + + + + | Glucose, | 88Comment: Testing | 65 - 99 mg/dL | EXTERNAL | | | Fasting | performed at [facility], [address] | | LAB | | | | [address], | | | | | | [place] [address] | | | | + + + + + + | BUN | 15Comment: Testing | 8 - 25 mg/dL | EXTERNAL | | | | performed at [facility], [address] | | LAB | | | | [address], | | | | | | [place] [address] | | | | + + + + + + | Creatinine | 0.90Comment: Testing | 0.50 - 1.00 | EXTERNAL | | | | performed at [facility], [address] | mg/dL | LAB | | | | [address], | | | | | | [place] [address] | | | | + + + + + + | Calcium | 8.5Comment: Testing | 8.5 - 10.2 | EXTERNAL | | | | performed at [facility], [address] | mg/dL | LAB | | | | [address], | | | | | | [place] [address] | | | | + + + + + + | Albumin | 2.9 (L)Comment: Testing | 3.6 - 5.0 g/dL | EXTERNAL | | | | performed at [facility], [address] | | LAB | | | | [address], | | | | | | [place] [address] | | | | + + + + + + | PHOSPHORUS | 3.0Comment: Testing | 2.3 - 4.8 mg/dL | EXTERNAL | | | | performed at [facility], [address] | | LAB | | | | [address], | | | | | | [place] [address] | | | | + + + [...] | | | | | | at [facility], [address] | | | | | | [address], | | | | | | [place] [address] | | | | + + + [...] | | | COMPLEMENT | performed at [facility], [address] | [...] | | | | | [place] [address] | | | | + + + [...] EXTERNAL | | | | performed at [facility], [address] | | LAB | | | | [address], | | | | | | [place] [address] | | | | + + + + + + | Non- | 3.63 (L)Comment: Testing | 3.70 - 5.10 | EXTERNAL | | | Red Blood | performed at [facility], [address] | M/uL | LAB | | | Cells | [address], | | | | | Counted | [place] [address] | | | | + + + + + + | Hemoglobin | 11.2 (L)Comment: Testing | 11.3 - 15.5 | EXTERNAL | | | | performed at [facility], [address] | g/dL | LAB | | | | [address], | | | | | | [place] [address] | | | | + + + + + + | Hematocrit, | 33.3 (L)Comment: Testing | 34.0 - 46.0 % | EXTERNAL | | | POC | performed at [facility], [address] | | LAB | | | | [address], | | | | | | [place] [address] | | | | + + + + + + | MCV | 91.9Comment: Testing | 80.0 - 100.0 fl | EXTERNAL | | | | performed at [facility], [address] | | LAB | | | | [address], | | | | | | [place], [place] [address] | | | | + + + + + + | MCH | 30.8Comment: Testing | 27.0 - 34.0 pg | EXTERNAL | | | | performed at [facility], [address] | | LAB | | | | [address], | | | | | | [place] [address] | | | | + + + + + + | MCHC | 33.5Comment: Testing | 32.0 - 35.5 | EXTERNAL | | | | performed at [facility], [address] | g/dL | LAB | | | | [address], | | | | | | [place] [address] | | | | + + + [...] | | | | | [place] [address] | | | | + + + + + + | MPV | 7.5Comment: Testing | fl | EXTERNAL | | | | performed at [facility], [address] | | LAB | | | | [address], | | | | | | [place] [address] | | | | + + + + + + | Differentia | AUTOMATEDComment: | | EXTERNAL | | | l Type | Testing performed at | | LAB | | | | [facility], [address] | | | | | | [place] | | | | | | [address] | | | | + + + + + + | % Segmented | 63.7Comment: Testing | % | EXTERNAL | | | | performed at [facility], [address] | | LAB | | | Neutrophils | [address], | | | | | | [place] [address] | | | | + + + + + + | % | 26.8Comment: Testing | % | EXTERNAL | | | Lymphocytes | performed at [facility], [address] | | LAB | | | | [address], | | | | | | [place] [address] | | | | + + + + + + | % Monocytes | 6.0Comment: Testing | % | EXTERNAL | | | | performed at [facility], [address] | | LAB | | | | [address], | | | | | | [place] [address] | | | | + + + + + + | % | 3.0Comment: Testing | % | EXTERNAL | | | Eosinophils | performed at [facility], [address] | | LAB | | | | [address], | | | | | | [place] [address] | | | | + + + + + + | % Basophils | 0.5Comment: Testing | % | EXTERNAL | | | | performed at [facility], [address] | | LAB | | | | [address], | | | | | | [place] [address] | | | | + + + + + + | Absolute | 6.4Comment: Testing | 1.9 - 7.4 K/uL | EXTERNAL | | | Segmented | performed at [facility], [address] | | LAB | | | Neutrophils | [address], | | | | | | [place] [address] | | | | + + + + + + | Absolute | 2.7Comment: Testing | 1.0 - 3.9 K/uL | EXTERNAL | | | Lymphocytes | performed at [facility], [address] | | LAB | | | | [address], | | | | | | [place] [address] | | | | + + + + + + | Absolute | 0.6Comment: Testing | 0 - 0.8 K/uL | EXTERNAL | | | Monocytes | performed at [facility], [address] | | LAB | | | | [address], | | | | | | [place] [address] | | | | + + + + + + | Absolute | 0.3Comment: Testing | 0 - 0.5 K/uL | EXTERNAL | | | Eosinophils | performed at [facility], [address] | | LAB | | | | [address], | | | | | | [place] [address] | | | | + + + + + + | Absolute | 0.0Comment: Testing | 0 - 0.1 K/uL | EXTERNAL | | | Basophils | performed at [facility], [address] | | LAB | | | | [address], | | | | | | [place] [address] | | | | + + + [...] EXTERNAL | | | | performed at [facility], [address] | | LAB | | | | [address], | | | | | | [place] [address] | | | | + + + [...] EXTERNAL | | | | performed at [facility], [address] | | LAB | | | | [address], | | | | | | [place] [address] | | | | + + + [...] | LAB | | | | [address];[place], [place] | | | | | | [address] | | | | + + + [...] | | | | | [place] [address] | | | | + + + + + + | Albumin | 3.1 (L)Comment: Testing | 3.6 - 5.0 g/dL | EXTERNAL | | | | performed at [facility], [address] | | LAB | | | | [address], | | | | | | [place] [address] | | | | + + + + + + | Bilirubin | 0.3Comment: Testing | 0.1 - 1.5 mg/dL | EXTERNAL | | | Total | performed at [facility], [address] | | LAB | | | | [address], | | | | | | [place] [address] | | | | + + + + + + | Bilirubin | 0.1Comment: Testing | 0.0 - 0.3 mg/dL | EXTERNAL | | | Direct | performed at [facility], [address] | | LAB | | | | [address], | | | | | | [place] [address] | | | | + + + + + + | ALP, | 67Comment: Testing | 35 - 115 U/L | EXTERNAL | | | External | performed at [facility], [address] | | LAB | | | | [address], | | | | | | [place] [address] | | | | + + + + + + | AST | 93 (H)Comment: Testing | 10 - 45 U/L | EXTERNAL | | | | performed at [facility], [address] | | LAB | | | | [address], | | | | | | [place] [address] | | | | + + + + + + | ALT | 50Comment: Testing | 10 - 65 U/L | EXTERNAL | | | | performed at [facility], [address] | | LAB | | | | [address], | | | | | | [place] [address] | | | | + + + [...] | | | | | [place] [address] | | | | + + + + + + | K | 3.9Comment: Testing | 3.5 - 4.9 | EXTERNAL | | | | performed at [facility], [address] | mmol/L | LAB | | | | [address], | | | | | | [place] [address] | | | | + + + + + + | Cl | 114 (H)Comment: Testing | 99 - 109 mmol/L | EXTERNAL | | | | performed at [facility], [address] | | LAB | | | | [address], | | | | | | [place] [address] | | | | + + + + + + | CO2 | 21 (L)Comment: Testing | 23 - 32 mmol/L | EXTERNAL | | | | performed at [facility], [address] | | LAB | | | | [address], | | | | | | [place] [address] | | | | + + + + + + | Anion Gap | 8Comment: Testing | 5 - 20 mmol/L | EXTERNAL | | | | performed at [facility], [address] | | LAB | | | | [address], | | | | | | [place] [address] | | | | + + + + + + | Glucose, | 67Comment: Testing | 65 - 99 mg/dL | EXTERNAL | | | Fasting | performed at [facility], [address] | | LAB | | | | [address], | | | | | | [place] [address] | | | | + + + + + + | BUN | 20Comment: Testing | 8 - 25 mg/dL | EXTERNAL | | | | performed at [facility], [address] | | LAB | | | | [address], | | | | | | [place] [address] | | | | + + + + + + | Creatinine | 1.14 (H)Comment: Testing | 0.50 - 1.00 | EXTERNAL | | | | performed at [facility], [address] | mg/dL | LAB | | | | [address], | | | | | | [place] [address] | | | | + + + + + + | BUN/Creatin | 18Comment: Testing | | EXTERNAL | | | ine Ratio | performed at [facility], [address] | | LAB | | | [address], | | | | | | [place] [address] | | | | + + + + + + | Calcium | 8.5Comment: Testing | 8.5 - 10.2 | EXTERNAL | | | | performed at [facility], [address] | mg/dL | LAB | | | | [facility], | | | | | | [place] [address] | | | | + + + [...] W | | | | | | [facility], | | | | | | [place] [address] | | | | + + + [...] LAB | | | | performed at [facility], [address] | | | | | | [address], | | | | | | [place] [address] | | | | + + + [...] | | | Urine | performed at [facility], [address] | | LAB | | | Random | [address], | | | | | | [place] [address] | | | | + + + [...] Conversion - 01/18/2019 1:22 AM PDT NOHEMI [id number] yearsXR | | CHEST 1 VIEW09/19/2013 5:07 [...] At | + + + | NOHEMI Annika ESPITIA CT HEAD WO CONTRAST HISTORY: 53 [...] Conversion - 01/18/2019 1:22 AM PDT NOHEMI ESPITIACT HEAD WO CONTRAST | | HISTORY:53 years. [...] [place] | | | | | | [address] | | | | + + + + + + | RBC, UA | 0-2Comment: Testing | 0 - 5 /hpf | EXTERNAL | | | | performed at [facility] | | LAB | | | | [address];[place] | | | | | | [address] | | | | + + + + + + | Epithelial | 6-10Comment: Testing | /lpf | EXTERNAL | | | Cells | performed at [facility] | | LAB | | | | [address];[place] | | | | | | [address] | | | | + + + + + + | Bacteria, | TRACE (A)Comment: | | EXTERNAL | | | UA | Testing performed at | | LAB | | | | [facility];[address];[place] [address] | | | | + + + + + + | CASTS | 11-15Comment: | /lpf | EXTERNAL | | | | HYALINETesting performed | | LAB | | | | at [facility];[address];[place] [address] | | | | | | | [...] | | | | UA, POC | [address];[place], [place] | | | | | | [address] | | | | + + + [...] [place] | | | | | | [address] | | | | + + + [...] [place] | | | | | | [address] | | | | + + + [...] [place] | | | | | | [address] | | | | + + + + + + | Methadone | NEGATIVEComment: | | EXTERNAL | | | | Positive cutoff for | | LAB | | | | MTD = 300 ng/mLTesting | | | | | | performed at [facility];[address] | | | | | | [address];[place] | | | | | | [address] | | | | + + + + + + | Opiates | NEGATIVEComment: | | EXTERNAL | | | | Positive cutoff for | | LAB | | | | OPI = 300 ng/mLTesting | | | | | | performed at [facility];[address] | | | | | | [address];[place] | | | | | | [address] | | | | + + [...] [place] | | | | | | [address] | | | | + + + [...] performed at [facility] | | | | | | [facility];[place], [place] | | | | | | [address] | | | | + + + [...] performed at [facility] | | LAB | | | | [address];[place] | | | | | | [address] | | | | + + + [...] | LAB | | | | [address];[place] | | | | | | [address] | | | | + + + + + -+ | Non- | 3.96Comment: Testing | 3.70 - 5.10 | EXTERNAL | | | Red Blood | performed at [facility] | M/uL | LAB | | | Cells | [address];[place] | | | | | Counted | [address] | | | | + + + + + -+ | Hemoglobin | 11.9Comment: Testing | 11.3 - 15.5 | EXTERNAL | | | | performed at [facility];[address] | g/dL | LAB | | | | [address];[place] | | | | | | [address] | | | | + + + + + -+ | Hematocrit, | 35.3Comment: Testing | 34.0 - 46.0 % | EXTERNAL | | | POC | performed at [facility];[address] | | LAB | | | | [address];[place] | | | | | | [address] | | | | + + + + + -+ | MCV | 89.0Comment: Testing | 80.0 - 100.0 fl | EXTERNAL | | | | performed at [facility];[address] | | LAB | | | | [address];[place] | | | | | | [address] | | | | + + + + + -+ | MCH | 30.1Comment: Testing | 27.0 - 34.0 pg | EXTERNAL | | | | performed at [facility];[address] | | LAB | | | | [address];[place] | | | | | | [address] | | | | + + + + + -+ | MCHC | 33.8Comment: Testing | 32.0 - 35.5 | EXTERNAL | | | | performed at [facility];[address] | g/dL | LAB | | | | [address];[place] | | | | | | [address] | | | | + + + + + -+ | RDW-CV | 45.5Comment: Testing | 37 - 53 fl | EXTERNAL | | | | performed at [facility];[address] | | LAB | | | | [address];[place] | | | | | | [address] | | | | + + + + + -+ | Platelet | 443 (H)Comment: Testing | 150 - 400 K/uL | EXTERNAL | | | Count | performed at [facility];[address] | | LAB | | | Plasma | [address];[place] | | | | | | [address] | | | | + + + + + -+ | MPV | 7.3Comment: Testing | fl | EXTERNAL | | | | performed at [facility];[address] | | LAB | | | | [address];[place] | | | | | | [address] | | | | + + + + + -+ | Differentia | AUTOMATEDComment: | | EXTERNAL | | | l Type | Testing performed at | | LAB | | | | [facility];[address];[place] [address] | | | | + + + + + -+ | % Segmented | 60.4Comment: Testing | % | EXTERNAL | | | | performed at [facility];[address] | | LAB | | | Neutrophils | [address];[place] | | | | | | [address] | | | | + + + + + -+ | % | 26.9Comment: Testing | % | EXTERNAL | | | Lymphocytes | performed at [facility];[address] | | LAB | | | | [address];[place] | | | | | | [address] | | | | + + + + + -+ | % Monocytes | 8.0Comment: Testing | % | EXTERNAL | | | | performed at [facility];[address] | | LAB | | | | [address];[place] | | | | | | [address] | | | | + + + + + -+ | % | 4.0Comment: Testing | % | EXTERNAL | | | Eosinophils | performed at [facility];[address] | | LAB | | | | [address];[place] | | | | | | [address] | | | | + + + + + -+ | % Basophils | 0.7Comment: Testing | % | EXTERNAL | | | | performed at [facility];[address] | | LAB | | | | [address];[place] | | | | | | [address] | | | | + + + + + -+ | Absolute | 5.4Comment: Testing | 1.9 - 7.4 K/uL | EXTERNAL | | | Segmented | performed at [facility];[address] | | LAB | | | Neutrophils | [address];[place] | | | | | | [address] | | | | + + + + + -+ | Absolute | 2.4Comment: Testing | 1.0 - 3.9 K/uL | EXTERNAL | | | Lymphocytes | performed at [facility];[address] | | LAB | | | | [address];[place] | | | | | | [address] | | | | + + + + + -+ | Absolute | 0.7Comment: Testing | 0 - 0.8 K/uL | EXTERNAL | | | Monocytes | performed at [facility];[address] | | LAB | | | | [address];[place] | | | | | | [address] | | | | + + + + + -+ | Absolute | 0.4Comment: Testing | 0 - 0.5 K/uL | EXTERNAL | | | Eosinophils | performed at [facility];[address] | | LAB | | | | [address];[place] | | | | | | [address] | | | | + + + + + -+ | Absolute | 0.1Comment: Testing | 0 - 0.1 K/uL | EXTERNAL | | | Basophils | performed at [facility];[address] | | LAB | | | | [address];[place] | | | | | | [address] | | | | + + + + + -+ | Na | 141Comment: Testing | 135 - 143 | EXTERNAL | | | | performed at [facility];[address] | mmol/L | LAB | | | | [address];[place] | | | | | | [address] | | | | + + + + + -+ | K | 4.5Comment: Testing | 3.5 - 4.9 | EXTERNAL | | | | performed at [facility];[address] | mmol/L | LAB | | | | [address];[place] | | | | | | [address] | | | | + + + + + -+ | Cl | 110 (H)Comment: Testing | 99 - 109 mmol/L | EXTERNAL | | | | performed at [facility];[address] | | LAB | | | | [address];[place] | | | | | | [address] | | | | + + + + + -+ | CO2 | 20 (L)Comment: Testing | 23 - 32 mmol/L | EXTERNAL | | | | performed at [facility];[address] | | LAB | | | | [address];[place] | | | | | | [address] | | | | + + + + + -+ | Anion Gap | 15Comment: Testing | 5 - 20 mmol/L | EXTERNAL | | | | performed at [facility];[address] | | LAB | | | | [address];[place] | | | | | | [address] | | | | + + + + + -+ | Glucose, | 94Comment: Testing | 65 - 99 mg/dL | EXTERNAL | | | Fasting | performed at [facility];[address] | | LAB | | | | [address];[place] | | | | | | [address] | | | | + + + + + -+ | BUN | 30 (H)Comment: Testing | 8 - 25 mg/dL | EXTERNAL | | | | performed at [facility];[address] | | LAB | | | | [address];[place] | | | | | | [address] | | | | + + + + + -+ | Creatinine | 2.26 (H)Comment: Testing | 0.50 - 1.00 | EXTERNAL | | | | performed at [facility];[address] | mg/dL | LAB | | | | [address];[place] | | | | | | [address] | | | | + + + + + -+ | BUN/Creatin | 14Comment: Testing | | EXTERNAL | | | ine Ratio | performed at [facility];[address] | | LAB | | | | [address];[place] | | | | | | [address] | | | | + + + + + -+ | Calcium | 9.5Comment: Testing | 8.5 - 10.2 | EXTERNAL | | | | performed at [facility];[address] | mg/dL | LAB | | | | [address];[place] | | | | | | [address] | | | | + + + + + -+ | Protein, | 8.2Comment: Testing | 6.3 - 8.2 g/dL | EXTERNAL | | | Total | performed at [facility];[address] | | LAB | | | | [address];[place] | | | | | | [address] | | | | + + + + + -+ | Albumin | 3.3 (L)Comment: Testing | 3.6 - 5.0 g/dL | EXTERNAL | | | | performed at [facility];[address] | | LAB | | | | [address];[place] | | | | | | [address] | | | | + + + + + -+ | Globulin | 4.9Comment: Testing | 1.3 - 4.9 g/dL | EXTERNAL | | | | performed at [facility];[address] | | LAB | | | | [address];[place] | | | | | | [address] | | | | + + + + + -+ | A/G Ratio | 0.7 (L)Comment: Testing | 1.0 - 2.4 | EXTERNAL | | | | performed at [facility];[address] | | LAB | | | | [address];[place] | | | | | | [address] | | | | + + + + + -+ | Bilirubin | 0.2Comment: Testing | 0.1 - 1.5 mg/dL | EXTERNAL | | | Total | performed at [facility];[address] | | LAB | | | | [address];[place] | | | | | | [address] | | | | + + + + + -+ | ALP, | 108Comment: Testing | 35 - 115 U/L | EXTERNAL | | | External | performed at [facility];[address] | | LAB | | | | [address];[place] | | | | | | [address] | | | | + + + + + -+ | AST | 153 (H)Comment: Testing | 10 - 45 U/L | EXTERNAL | | | | performed at [facility] | | LAB | | | | [address];[place] | | | | | | [address] | | | | + + + + + -+ | ALT | 74 (H)Comment: Testing | 10 - 65 U/L | EXTERNAL | | | | performed at [facility];[address] | | LAB | | | | [address];[place] | | | | | | [address] | | | | + + + [...] at [facility];[address] [facility] | | | | | | [address];[place] [address] | | | | + + + + + -+ | CK, Total | 3032 (H)Comment: Testing | 30 - 240 U/L | EXTERNAL | | | | performed at [facility];[address] | | LAB | | | | [address];[place] | | | | | | [address] | | | | + + + [...] [facility];[address] | | | | | | [facility];[place] | | | | | | [address] | | | | + + + + + -+ | aPTT, | 23Comment: Testing | 23 - 32 seconds | EXTERNAL | | | Patient | performed at [facility];[address] | | LAB | | | | [address];[place] | | | | | | [address] | | | | + + + + + -+ | CK-MB | 53.7 (H)Comment: Testing | 0.5 - 3.6 ng/mL | EXTERNAL | | | | performed at [facility];[address] | | LAB | | | | [address];[place] | | | | | | [address] | | | | + + + [...] | LAB | | | | [address];[place], [place] | | | | | | [address] | | | | + + + [...] uIU/mL | LAB | | | | [address];[place] | | | | | | [address] | | | | + + + [...] performed at [facility] | | LAB | | | | [facility], [place] | | | | | | [address] | | | | + + + [...] performed at [facility];[address] | | LAB | | | | [address];[place] | | | | | | [address] | | | | + + + [...] | LAB | | | | [address];[place], [place] | | | | | | [address] | | | | + + + [...] | | | | | ONLY, -COMPUTER (500), | | | | | | medical editor JERAMY TRAORE | | | | | | (4) on 09/19/2013 2:21:45 | | | | | | PM | | | | + + + + + + + + | Specimen | + + | | + + + + + | Narrative | Performed At | + + + | Historically converted procedure from [facility] environment | EXTERNAL LAB | + [...]
--- OUTSIDE RECORDS SUMMARY | ~2020-02-12 | XMS | Encounter Summary ---
Demographics + + + | Address | [address] | | | [place] [address] | + + + | Home Phone [...] + + + | Author | [facility] | | | and [place] | + + + | Organization | [facility] | | [...] Team Providers + +------+ + | Care Word Processing Machine Operator Name | Role | Phone | + +------+ + | Hayden Acevedo MD | PCP | | + +------+ + Encounter Details +--------+ + + + + | Date | Type | Department | Care Team | Description | +--------+ + + + + | 01/10/ | Hospital | [facility] | Tha Calderon, | Acute renal failure, | | 2015 - | Encounter | [facility] | MD [address] | unspecified acute | | | | [address] | [place] [address] | renal failure type | | 01/13/ | | [address] | [phone] | ([facility]); Essential | | 2014 | | [place], [place] | | hypertension; | | | | [address] | | Leukocytosis, | | | | [phone] | | unspecified; | | | | [...] 01/13/152054 Date of Service: 01/13/151438 Status: Signed Cooker Sulfite: Tico Suarez MD (Physician) Related Notes: Original Note by Tico Suarez MD (Physician) filed at 01/13/15 14 55 [facility]: Hospitalist Physician Discharge Summary Pt: Bisi Annika Jluisjose roberto AGE/SEX: 54 y.o. female ROOM: 6608/6608-1 PCP: [...] 54 No results for input(s): PHART, PO2ART, EHQ7OTH, E3KDSNLX, BEART in the last 168 hours. Recent [...] with you. STOP taking these medications ergocalciferol 97370 UNITS capsule Commonly known as: DRISDOL famotidine [...] 01/12/152053 Date of Service: 01/12/152047 Status: Signed Cooker Sulfite: Apollo Mas MD (Physician) [facility]: Gastroenterology Progress Note Hospital Day: LOS: [...] Status: Full Code APOLLO MAS MD 01/12/2015 iryTico kennedy MD - 01/12/2015 6:56 PM PDT Progress Notes by Tico Suarez MD at 01/12/151855 Author: Tico Suarez MD Service: Hospitalist Author Type: Physician Filed: 01/12/152101 Date of Service: 01/12/151855 Status: Addendum Cooker Sulfite: Tico Suarez MD (Physician) Related Notes: Original Note by Danita Burr MD-R2 (Resident-Y2) filed at 2019 [facility]: Hospitalist Progress Note Hospital Day: LOS: [...] upper GI endoscopy by Dr. Benitez at [facility] in [place]. She denies alcohol use. Pain level is [...] or chills. Last colo noscopy was at [facility] and was told it was normal. Denies aspirin or an ticoagulant use. Does take ibuprofen on and off. Denies any left precordial chest pain, arm pain, or jaw pain. No previous history of MN. Denies dizziness, lightheadedness, syncope. La night apparently she was transiently confused per her significant other. She takes Prilos ec b.i.d. for GERD but has not noted any improvement in her symptoms. Workup in the emergency room showed leukocytosis of 16,000 with neutrophils 77%, no bands. Her H and H has remained stable since her last labs in the [facility] that is hemoglobin 12, hemat ocrit [...] C) Oral 100 20 99 % - 01/11/154 128/65 mmHg 98 F (36.7 C) Oral [...] HTN (hypertension) COPD (chronic obstructive pulmonary disease) ([facility]) Spinal stenosis, lumbar GERD (gastroesophageal reflux disease) Hematemesis Rectal bleeding Epigastric abdominal pain NSAID induced gastritis ARF (acute renal failure) ([facility]) Abnormal LFTs Leukocytosis, unspecified Metabolic acidosis CHI (obstructive sleep apnea) Chronic hepatitis C without hepatic coma ([facility]) ASSESSMENT & PLAN Acute GI bleeding (01/10/2015) [...] home meds COPD (chronic obstructive pulmonary disease) ([facility]) (06/24/2013) Assessment: Chronic condition Plan: Continue home [...] as listed above ARF (acute renal failure) ([facility]) (01/10/2015) Assessment: Elevated BUN and Cr on [...] Disposition: Hospital Code Status: Full Code Vicki Rupinedr Burr MD-R1 01/12/2015 onversion Tra nsaction, Provider Unknown - 01/12/2015 2:33 PM PDTFormatting of this note might be differe nt from the original. Case Management by OG Granger at 01/12/15 1433 Author: OG Granger Service: (none) Author Type: Pediatric Oncologist Filed: 01/12/15 1435 Date of Service: 01/12/15 143 Status: Signed Cooker Sulfite: OG Granger (Pediatric Oncologist) 01/12/15 1426 Discharge Planning Evaluation Admitting Diagnosis Gi Bleed Readmission No Living Arrangements Spouse/significant other Support Systems Spouse/significant other;Family members Type of Residence Private residence Independent with ADL's Yes Independent with Mobility No-comment (Ambulates with a walker) Home Care Services No Caregiver after Discharge No Mental Status Oriented Power of Self Contained Behavior Unit Teacher No Anticipated Discharge Plan Post Acute Care Needs None at this time Plan communicated to patient/family Yes Resources Financial concerns No Transportation issues No (Friends or [place] Care van) Patient/Family concerns No Prescription Plan [...] None Assistance in transportation: Family, friends or [place] care van Identification of any specific education / training: None Barriers to Discharge / Alternative housing needed: None Anticipated DCP: Home with Significant Other ZAIRA THOMPSON onver david Transaction, Provider Unknown - 01/12/2015 5:21 AM PDT Nurse Progress Note by Demi Westfall RN at 01/12/15520 Author: Dmei Westfall RN Service: (none) Author Type: Registered Nurse Filed: 01/12/15522 Date of Service: 01/12/15520 Status: Signed Cooker Sulfite: Demi Westfall RN (Registered Nurse) Patient resting [...] 01/12/158 Date of Service: 01/12/15246 Status: Signed Cooker Sulfite: Demi Westfall RN (Registered Nurse) Patient very [...] 01/12/1538 Date of Service: 01/12/1537 Status: Signed Cooker Sulfite: Majo Dsouza RN (Registered Nurse) Pt asked for pain medications. Pt was deeply sleeping and snoring. Wasted pain medication. Will round later to see if pt's pain needs to be addressed. MAJO DSOUZA RN ahir, Danita Graves MD - 01/11/2015 11:42 PM PDT Progress Notes by DONA QuesadaR2 at 01/11/152341 Author: DONA QuesadaR2 Service: Hospitalist Author Type: Resident Filed: 01/12/1516 Date of Service: 01/11/152341 Status: Attested Cooker Sulfite: DONA QuesadaR2 (Resident-Y2) Cosigner: Contreras Burroughs MD at 1614 Attestation signed by Contreras Burroughs MD at 01/12/151614 I have seen and examined the patient and agree with the resident note. I have directed the care plan [facility]: Hospitalist Progress Note Hospital Day: LOS: [...] upper GI endoscopy by Dr. Benitez at [facility] in [place]. She denies alcohol use. Pain level is [...] or chills. Last colo noscopy was at [facility] and was told it was normal. [...] stable since her last labs in the [facility] that is hemoglobin 12, hemat ocrit [...] Nightly propofol Continuous Infusions pantoprazole 8 mg/hr (08/10/15 2306) sodium chloride (IV) 125 mL/hr at [...] HTN (hypertension) COPD (chronic obstructive pulmonary disease) ([facility]) Spinal stenosis, lumbar GERD (gastroesophageal reflux disease) Hematemesis Rectal bleeding Epigastric abdominal pain NSAID induced gastritis ARF (acute renal failure) ([facility]) Abnormal LFTs Leukocytosis, unspecified Metabolic acidosis CHI (obstructive sleep apnea) Chronic hepatitis C without hepatic coma ([facility]) ASSESSMENT & PLAN Acute GI bleeding (01/10/2015) [...] home meds COPD (chronic obstructive pulmonary disease) ([facility]) (06/24/2013) Assessment: Chronic condition Plan: Continue home [...] Nurse Filed: 01/11/15 1403 Date of Service: 01/11/151400 Status: Signed Cooker Sulfite: Shamir Do RN (Registered Nurse) Report called to Marvin Munoz in Out Patient Procedures regarding EGD with Dr. Mas. All ques tions addressed. onver david Transaction, Provider Unknown - 01/10/2015 11:08 PM PDT Nurse Progress Note by Batsheva Nagy RN at 01/10/15 Author: Batsheva Nagy RN Service: (none) Author Type: Registered Nurse Filed: 01/10/15 9053 Date of Service: 01/10/152307 Status: Signed Cooker Sulfite: Batsheva Nagy RN (Registered Nurse) Patient having [...] 01/10/151424 Date of Service: 01/10/151424 Status: Signed Cooker Sulfite: Shamir Do RN (Registered Nurse) All po medications held per Dr. Broussard Top Dyeing Machine Tender. ohnelif n, Shahla Her RP - 01/10/2015 1:39 PM PDTFormatting of this note might be different from t he original. Progress Notes by Shahla Kam RPH at 01/10/151338 Author: Shahla Kam RPH Service: (none) Author Type: Pharmacist Filed: 01/10/151338 Date of Service: 01/10/151338 Status: Signed Cooker Sulfite: Shahla Kam RPH (Pharmacist) Clinical Pharmacy Note - Renal Dose Adjustment Bisi Espitia 54 y.o. female Ht Readings from Last 1 Encounters: 01/10/15 1.702 m (5' 7") Wt Readings from Last 1 Encounters: 01/10/15 108.6 kg (239 lb 6.7 oz) CREATININE Date Value Ref Range Status 01/10/2015 2.6* 0.50 - 1.00 mg/dL Final Comment: Testing performed at [facility];[address] [place] [address];[place] [address] CREATININE: 2.6 mg/dL ABNORMAL (01/10/15 0903) Estimated [...] Type: Physician Filed: 01/10/152044 Date of Service: 01/10/151222 Status: Addendum Cooker Sulfite: Tha Calderon MD (Physician) Related Notes: Original Note by Tha Calderon MD (Physician) filed at 01/10/15 183 [facility]: Hospitalist Admission History & Physical Date of Admission: 01/10/2015 Requesting Physician: , Emergency Department Reason for Admission: Gi bleeding, upper likely. Hematemesis and rectal bleed History Obtained From: patient, chart review, Quality of history: good CHIEF COMPLAINT: Patient presented to the Emergency Department by: Bhavesh Hernandez 1822 Chief Complaint Chief Complaint Patient presents with [...] upper GI endoscopy by Dr. Benitez at [facility] in [place]. She denies alcohol use. Pain level is [...] colo noscopy was 40 years ago at [facility] and was told it was normal. Denies aspirin or anticoagulant use. Does take ibuprofen on and off. Denies any left precordial mart[address] pain, arm pain, or jaw pain. No previous history of MN. Denies dizziness, lightheadedness , syncope. Last night apparently she was transiently confused per her significant other. She takes Prilosec b.i.d. for GERD but has not noted any improvement in her symptoms. Workup in the emergency room showed leukocytosis of 16,000 with neutrophils 77%, no bands. Her H and H has remained stable since her last labs in the [facility] that is hemoglobin 12, hemat ocrit [...] sput um. HEART: Denies previous history of MN, congestive heart failure, irregular heart rhythm, or [...] has had bladder sling surgery in the [facility] but has had trouble emptying [...] REPAIR); Surgeon: Misha Dye MD; Locatio n: [facility]; Service: BONDING MACHINE OPERATOR; Laterality: N/A; Anterior portion was not completed Bladder suspension 12/24/2013 Procedure: BLADDER SUSPENSION - TVT; Surgeon: Misha Dye MD; Location: [facility]; Service: BONDING MACHINE OPERATOR; Laterality: N/A; TVT exact Cystoplasty 12/24/2013 Procedure: CYSTOSCOPY - HYDRODISTENTION OF BLADDER; Surgeon: Misha Dye MD; Locati on: [facility]; Service: BONDING MACHINE OPERATOR; Laterality: N/A; 70 degree scope. Indigo Emilia dye a vailable to Anesthesiologist Enterocele repair 12/24/2013 Procedure: ENTEROCELE RPR; Surgeon: Misha Dye MD; Location: [facility]; Servic e: BONDING MACHINE OPERATOR; Laterality: N/A; Foraminotomy Left 01/30/2014 Procedure: FORAMINOTOMY; Surgeon: Juan Alberto Worrell MD; Location: [facility]; Service: Neurosurgery; Laterality: Left; L 5 Allergies Allergen Reactions Morphine Other (See Comments) Used CHEMICAL RADIATION TECHNICIAN and it lowered her BP And medication [...] sure of dose Historical Provider ergocalciferol (DRISDOL) 80865 UNITS capsule Take 1 capsule by mouth [...] on file Social History Narrative Lives in [place], [facility]. H/o [place], full code. History Smoking status [...] ABO/RH(D) B NEGATIVE ABO/RH(D) Testing performed at [facility];[address] [place] [address] ANTIBODY SCREEN NEGATIVE ANTIBODY SCREEN Testing performed at [facility];[address] [place] [address] ARM BAND NUMBER [id number] ARM BAND NUMBER Testing performed at [facility];[address] [place] [address] XR ABDOMEN ACUTE SERIES 01/10/2015 9:56 AM [...] 1336 Date of Service: 01/10/151740 Status: Signed Cooker Sulfite: Apollo Mas MD (Physician) Related Notes: Original Note by Apollo Mas MD (Physician) filed at 01/10/15 174 Consult Orders: 1. Consult to Gastroenterology [[id number]] ordered by Tha Calderon MD at 01/10/15 1233 2. Inpatient consult to GI [[id number]] ordered by Tha Calderon MD at 01/10/15 1235 [facility]: Gastroenterology Initial Consult Note Date of [...] REPAIR); Surgeon: Misha Dye MD; Locatio n: [facility]; Service: BONDING MACHINE OPERATOR; Laterality: N/A; Anterior portion was not completed Bladder suspension 12/24/2013 Procedure: BLADDER SUSPENSION - TVT; Surgeon: Misha Dye MD; Location: [facility]; Service: BONDING MACHINE OPERATOR; Laterality: N/A; TVT exact Cystoplasty 12/24/2013 Procedure: CYSTOSCOPY - HYDRODISTENTION OF BLADDER; Surgeon: Misha Dye MD; Locati on: [facility]; Service: BONDING MACHINE OPERATOR; Laterality: N/A; 70 degree scope. Indigo Emilia dye a vailable to Anesthesiologist Enterocele repair 12/24/2013 Procedure: ENTEROCELE RPR; Surgeon: Misha Dye MD; Location: [facility]; Servic e: BONDING MACHINE OPERATOR; Laterality: N/A; Foraminotomy Left 01/30/2014 Procedure: FORAMINOTOMY; Surgeon: Juan Alberto Worrell MD; Location: [facility]; Service: Neurosurgery; Laterality: Left; L 5 Allergies Allergen Reactions Morphine Other (See Comments) Used CHEMICAL RADIATION TECHNICIAN and it lowered her BP And medication [...] dose 09/14/2014 at Unknown time ergocalciferol (DRISDOL) 86655 UNITS capsule Take 1 capsule by mouth [...] on file Social History Narrative Lives in [facility]. [place], full code. PHYSICAL [...] [103-115] 106 (01/10 1702) Resp: [16-20] 18 (01/10 1702) SpO2: [96 %-100 %] 98 % [...] Date of Service: 01/10/15 1316 Status: Addendum Cooker Sulfite: Brandee Bran RN (Registered Nurse) Related Notes: [...] Author: Rosita Mazariegos Service: (none) Author Type: Studio Operations Engineer In Charge Filed: 01/10/15 1120 Date of Service: 01/10/15 1120 Status: Signed Cooker Sulfite: Rosita Mazariegos (Studio Operations Engineer In Charge) Pt ambulated back to bed with standby assistance call light given to pt. Rosita Mazariegos 01/10/15 1120 onver david Transaction, Provider Unknown - 01/10/2015 11:10 AM PDT ED Notes by Rosita Mazariegos at 01/10/15 1110 Author: Rosita Mazariegos Service: (none) Author Type: Studio Operations Engineer In Charge Filed: 01/10/15 1120 Date of Service: 01/10/151109 Status: Signed Cooker Sulfite: Rosita Mazariegos (Studio Operations Engineer In Charge) Pt ambulated to bathroom with standby assistance asked to pull call light when done. Rosita Mazariegos 01/10/15 112 onver david Transaction, Provider Unknown - 01/10/2015 10:03 AM PDT ED Notes by Brandee Bran RN at 01/10/15 100 Author: Brandee Bran RN Service: (none) Author Type: Registered Nurse Filed: 01/10/151002 Date of Service: 01/10/15 100 Status: Signed Cooker Sulfite: Brandee Bran RN (Registered Nurse) Pt ambulatory to restroom without difficulty Brandee Bran RN 01/10/151002 onver david Transaction, Provider Unknown - 01/10/2015 9:27 AM PDT ED Notes by Brandee Bran RN at 01/10/15926 Author: Brandee Bran RN Service: (none) Author Type: Registered Nurse Filed: 01/10/15927 Date of Service: 01/10/15926 Status: Signed Cooker Sulfite: Brandee Bran RN (Registered Nurse) Pt states "i dont handle stress well" and reports having a lot of stress lately with her allyson estrada. Pt reports losing her mother less than one year ago and brother passing away also just over one year ago. Brandee Bran RN 01/10/15927 uis Logan MD - 01/10/2015 9:21 AM PDT ED Provider Notes by Luis Sales DO at 01/10/15920 Author: Luis Sales DO Service: (none) Author Type: Physician Filed: 01/11/15 0839 Date of Service: 01/10/15920 Status: Signed Cooker Sulfite: Luis Sales DO (Physician) [facility] Department of Emergency Medicine 9:21 AM 01/10/2015 History of Present Illness Patient Identification Bisi Espitia is a 54 y.o. female. Patient information was obtained from patient. History/Exam limitations: none. Patient presented to the Emergency Department by: Bhavesh Hernandez 1822 (PCP: Naren Nina (General).) Chief Complaint Chief [...] be performed by Dr. Nina at the [facility] in [place]. She admits to smoking and drinking. Pt [...] REPAIR); Surgeon: Misha Dye MD; Locatio n: [facility]; Service: BONDING MACHINE OPERATOR; Laterality: N/A; Anterior portion was not completed Bladder suspension 12/24/2013 Procedure: BLADDER SUSPENSION - TVT; Surgeon: Misha Dye MD; Location: [facility]; Service: BONDING MACHINE OPERATOR; Laterality: N/A; TVT exact Cystoplasty 12/24/2013 Procedure: CYSTOSCOPY - HYDRODISTENTION OF BLADDER; Surgeon: Misha Dye MD; Locati on: [facility]; Service: BONDING MACHINE OPERATOR; Laterality: N/A; 70 degree scope. Indigo Emilia dye a vailable to Anesthesiologist Enterocele repair 12/24/2013 Procedure: ENTEROCELE RPR; Surgeon: Misha Dey MD; Location: [facility]; Servic e: BONDING MACHINE OPERATOR; Laterality: N/A; Foraminotomy Left 01/30/2014 Procedure: FORAMINOTOMY; Surgeon: Juan Alberto Worrell MD; Location: [facility]; Service: Neurosurgery; Laterality: [...] sure of dose Historical Provider ergocalciferol (DRISDOL) 29037 UNITS capsule Take 1 capsule by mouth [...] tablet by mouth every morning before [facility] 04/14/14 ANURAG Winters lisinopril (ZESTRIL) 10 MG tablet Take 1 tablet by mouth daily. 04/14/14 ANURAG Winters loratadine (CLARITIN) 10 MG tablet Take 1 tablet by mouth daily. 08/22/13 ANURAG Winters LORazepam (ATIVAN) 1 MG tablet Take 1 tablet by mouth every 6 (six) hours as needed for Anx iety. 12/12/13 ANURAG Wintesr metaxalone (SKELAXIN) 800 MG tablet Take 1 [...] Allergen Reactions Morphine Other (See Comments) Used CHEMICAL RADIATION TECHNICIAN and it lowered her BP And medication [...] on file Social History Narrative Lives in [place], [facility]. H/o [place], full code. Family History Problem Relation Age of Onset Breast cancer Sister Skin cancer Sister Ovarian cancer Sister Heart disease Mother Diabetes Father Diabetes type II Father Review of Systems Constitutional: Negative for fever, chills Eyes: Negative for vision changes Nose: Negative for congestion, nosebleeds Throat: Negative for sore throat CV/Resp: Negative for chest pain, abmirsqns-vn-pyscja, cough GI: Positive for abdominal pain and [...] she has had prior labs performed at [place], will attempt to get these records in order to compare her labs. 11:25 AM Received records from [facility] in [place]. Pt's last visit and lab s at [facility] were April 04, 2014. Labs from 04/04/14 show: WBC 17.7, HGB 12.0, HCT 35 .0, creatinine 0.73, AST 15, ALT 24. Pt appears to be in acute renal failure. She reports a hx of having something wrong with he r kidneys once in the past when her mother , but is unable to provide further det ails and denies having ever seen a flag signaler. She denies hx chronic kidney disease. 11:30 [...] hydroxide-simethicone (MA ALOX) 200-200-20 MG/5ML 10 mL, PN-nsannb-kbpkqvct-scopolamine () 10 mL solution 30 m L Oral Given Brandee Bran RN 01/10/2015 1150 pantoprazole (PROTONIX) 40 mg/100 mL infusion 8 mg/hr Intravenous New Bag Keon Gibson RN 01/10/2015 1250 HYDROmorphone (DILAUDID) injection 0.5 mg 0.5 mg Intravenous Given Brandee Bran RN 01/10/2015 1308 nicotine (NICODERM CQ) 21 [...] reviewed ([facility] the records with regard to the past medical/surgical history, previous medic ations, and allergies). The most recent labs available in our system were January 2014 and e pt had normal kidney function. Nursing notes reviewed for chief complaint, medications, clinical presentation and vital si gns. Laboratory Evaluation Results Procedure Component Value Ref Range Date/Time Urine Culture [[id number]] Collected: 01/10/15 1021 Order Status: Sent Specimen Information: Urine / Urine, Clean Catch Updated: 01/10/15 1251 Type and Screen [[id number]] Collected: 01/10/15 1025 Order Status: Completed Specimen Information: Blood Updated: 01/10/15 1121 ABO/RH(D) B NEGATIVE ABO/RH(D) Result: Testing performed at [facility];[address] [place] [address] ANTIBODY SCREEN NEGATIVE ANTIBODY SCREEN Result: Testing performed at [facility];[address] [place] [address]854 ARM BAND NUMBER [id number] ARM BAND NUMBER Result: Testing performed at [facility];[address] [place] [address] Urine Microscopic [[id number]] (Abnormal) Collected: 01/10/15 1021 Order Status: Completed Specimen Information: Urine / Urine, Clean Catch Updated: 02/16 1044 WBC 16-25 0 - 5 /hpf RBC 0-2 0 - 5 /hpf EPITHELIAL 50-100 /lpf BACTERIA 3+ (A) NONE SEEN Casts 16-25 /lpf POC clinitek 10 [[id number]] (Abnormal) Collected: 01/10/15 1022 Order Status: Completed [...] WBC, UA NEGATIVE NEGATIVE Comprehensive metabolic panel [[id number]] (Abnormal) Collected: 01/10/15902 Order Status: Completed Specimen Information: Blood Updated: 01/10/15 0941 SODIUM 140 135 - 143 mmol/L POTASSIUM [...] U/L EGFR 20 (L) >60 mL/min/1.73m2 Amylase [[id number]] Collected: 08/09/15 0903 Order Status: Completed Specimen Information: Blood Updated: 01/10/15940 AMYLASE 54 25 - 115 U/L Lipase [[id number]] Collected: 01/10/15902 Order Status: Completed Specimen Information: Blood Updated: 01/10/15940 LIPASE 191 73 - 393 U/L CBC with differential [[id number]] (Abnormal) Collected: 01/10/15902 Order Status: Completed Specimen [...] recognition system. The possibility of "sound alike" senior informatica developer errors, addition and/or deletions may occur. If there is any question p lease contact the author of the document. Procedures Additional Documentation Procedures Attending Note: Documentation assistance provided by Annalisa Grimes (Scribe). Information recorded by the scribe has been reviewed and validated by . Jadyn robertson with its contents. DO Luis Read DO 01/11/15 0839 onversion Transac tion, Provider Unknown - 01/10/2015 8:49 AM PDTFormatting of this note might be different f rom the original. ED Notes by Houston Bush RN at 01/10/15848 Author: Houston Bush RN Service: (none) Author Type: Registered Nurse Filed: 01/10/15848 Date of Service: 01/10/15848 Status: Signed Cooker Sulfite: Houston Bush RN (Registered Nurse) Bed: 11 Expected date: 01/10/15 Expected time: 8:41 AM Means of arrival: Bhavesh Hernandez 5343 Comments: 54 yo F Abd pain docume nted in this encounter Miscellaneous Notes Op Note - Apollo Mas - 01/11/2015 5:00 PM PDT Op Note by Apollo Mas MD at 01/11/151699 Author: Apollo Mas MD Service: Gastroenterology Author Type: Physician Filed: 01/11/152228 Date of Service: 01/11/151699 Status: Addendum Cooker Sulfite: Apollo Mas MD (Physician) Related Notes: Original Note by Apollo Mas MD (Physician) filed at 01/11/152228 [facility]: Gastroenterology ENDOSCOPY SUITE PROCEDURE NOTE Colonoscopy [...] APOLLO MAS MD 01/11/2015 p Note - Adelina Apollo - 01/10/2015 5:48 PM PDT Op Note by Apollo Mas MD at 01/10/151747 Author: Apollo Mas MD Service: Gastroenterology Author Type: Physician Filed: 01/10/151748 Date of Service: 01/10/151747 Status: Signed Cooker Sulfite: Apollo Mas MD (Physician) [facility]: Gastroenterology ENDOSCOPY SUITE PROCEDURE NOTE Esophagogastroduodenoscopy [...] in this encount er Plan of Treatment Not on filedocumented as [...] | EXTERNAL LAB: FLYNN | Routin | 01/11/2015 | | Results [...] EXTERNAL | | | | performed at [facility];888 | g/dL | LAB | | | | [address];[place] | | | | | | [address] | | | | + + + + + + | Hematocrit, | 30.2 (L)Comment: Testing | 34.0 - 46.0 % | EXTERNAL | | | POC | performed at [facility];[address] | | LAB | | | | [address];[place] | | | | | | [address] | | | | + + + [...] | | | | | [place] [address] | | | | + + + + + + | Non- | 3.21 (L)Comment: Testing | 3.70 - 5.10 | EXTERNAL | | | Red Blood | performed at [facility], [address] | M/uL | LAB | | | Cells | [address], | | | | | Counted | [place] [address] | | | | + + + + + + | Hemoglobin | 9.5 (L)Comment: Testing | 11.3 - 15.5 | EXTERNAL | | | | performed at [facility], [address] | g/dL | LAB | | | | [address], | | | | | | [place] [address] | | | | + + + + + + | Hematocrit, | 29.9 (L)Comment: Testing | 34.0 - 46.0 % | EXTERNAL | | | POC | performed at [facility], [address] | | LAB | | | | [address], | | | | | | [place] [address] | | | | + + + + + + | MCV | 93.2Comment: Testing | 80.0 - 100.0 fl | EXTERNAL | | | | performed at [facility], [address] | | LAB | | | | [address], | | | | | | [place] [address] | | | | + + + + + + | MCH | 29.5Comment: Testing | 27.0 - 34.0 pg | EXTERNAL | | | | performed at [facility], [address] | | LAB | | | | [address], | | | | | | [place] [address] | | | | + + + + + + | MCHC | 31.7 (L)Comment: Testing | 32.0 - 35.5 | EXTERNAL | | | | performed at [facility], [address] | g/dL | LAB | | | | [address], | | | | | | [place] [address] | | | | + + + + + + | RDW-CV | 47.7Comment: Testing | 37 - 53 fl | EXTERNAL | | | | performed at [facility], [address] | | LAB | | | | [address], | | | | | | [place] [address] | | | | + + + + + + | Platelet | 172Comment: Testing | 150 - 400 K/uL | EXTERNAL | | | Count | performed at [facility], [address] | | LAB | | | Plasma | [address], | | | | | | [place] [address] | | | | + + + + + + | MPV | 8.6Comment: Testing | fl | EXTERNAL | | | | performed at [facility], [address] | | LAB | | | | [address], | | | | | | [place] [address] | | | | + + + + + + | Differentia | AUTOMATEDComment: | | EXTERNAL | | | l Type | Testing performed at | | LAB | | | | [facility], [address] | | | | | | [place] | | | | | | [address] | | | | + + + + + + | % Segmented | 45.95Comment: Testing | % | EXTERNAL | | | | performed at [facility], [address] | | LAB | | | Neutrophils | [address], | | | | | | [place] [address] | | | | + + + + + + | % | 37.77Comment: Testing | % | EXTERNAL | | | Lymphocytes | performed at [facility], [address] | | LAB | | | | [address], | | | | | | [place] [address] | | | | + + + + + + | % Monocytes | 8.27Comment: Testing | % | EXTERNAL | | | | performed at [facility], [address] | | LAB | | | | [address], | | | | | | [place] [address] | | | | + + + [...] | | | | | [place] [address] | | | | + + + + + + | Absolute | 2.11Comment: Testing | 1.90 - 7.40 | EXTERNAL | | | Segmented | performed at [facility], [address] | K/uL | LAB | | | Neutrophils | [address], | | | | | | [place] [address] | | | | + + + + + + | Absolute | 1.73Comment: Testing | 1.00 - 3.90 | EXTERNAL | | | Lymphocytes | performed at [facility], [address] | K/uL | LAB | | | | [address], | | | | | | [place] [address] | | | | + + + + + + | Absolute | 0.38Comment: Testing | 0.00 - 0.80 | EXTERNAL | | | Monocytes | performed at [facility], [address] | K/uL | LAB | | | | [address], | | | | | | [place] [address] | | | | + + + + + + | Absolute | 0.33Comment: Testing | 0.00 - 0.50 | EXTERNAL | | | Eosinophils | performed at [facility], [address] | K/uL | LAB | | | | [address], | | | | | | [place] [address] | | | | + + + + + + | Absolute | 0.04Comment: Testing | 0.00 - 0.10 | EXTERNAL | | | Basophils | performed at [facility], [address] | K/uL | LAB | | | | [address], | | | | | | [place] [address] | | | | + + + [...] EXTERNAL | | | | performed at [facility], [address] | | LAB | | | | [address], | | | | | | [place] [address] | | | | + + + [...] EXTERNAL | | | | performed at [facility], [address] | | LAB | | | | [address], | | | | | | [place] [address] | | | | + + + [...] | | | | | [place] [address] | | | | + + + + + + | K | 3.9Comment: Testing | 3.5 - 4.9 | EXTERNAL | | | | performed at [facility], [address] | mmol/L | LAB | | | | [address], | | | | | | [place] [address] | | | | + + + + + + | Cl | 116 (H)Comment: Testing | 99 - 109 mmol/L | EXTERNAL | | | | performed at [facility], [address] | | LAB | | | | [address], | | | | | | [place] [address] | | | | + + + + + + | CO2 | 24Comment: Testing | 23 - 32 mmol/L | EXTERNAL | | | | performed at [facility], [address] | | LAB | | | | [address], | | | | | | [place] [address] | | | | + + + + + + | Anion Gap | 2 (L)Comment: Testing | 5 - 20 mmol/L | EXTERNAL | | | | performed at [facility], [address] | | LAB | | | | [address], | | | | | | [place] [address] | | | | + + + + + + | Glucose, | 98Comment: Testing | 65 - 99 mg/dL | EXTERNAL | | | Fasting | performed at [facility], [address] | | LAB | | | | [address], | | | | | | [place] [address] | | | | + + + + + + | BUN | 7 (L)Comment: Testing | 8 - 25 mg/dL | EXTERNAL | | | | performed at [facility], [address] | | LAB | | | | [address], | | | | | | [place] [address] | | | | + + + + + + | Creatinine | 0.58Comment: Testing | 0.50 - 1.00 | EXTERNAL | | | | performed at [facility], [address] | mg/dL | LAB | | | | [address], | | | | | | [place] [address] | | | | + + + + + + | BUN/Creatin | 12Comment: Testing | | EXTERNAL | | | ine Ratio | performed at [facility], [address] | | LAB | | | | [address], | | | | | | [place] [address] | | | | + + + + + + | Calcium | 8.2 (L)Comment: Testing | 8.5 - 10.5 | EXTERNAL | | | | performed at [facility], [address] | mg/dL | LAB | | | | [address], | | | | | | [place] [address] | | | | + + + + + + | Protein, | 5.8 (L)Comment: Testing | 6.3 - 8.2 g/dL | EXTERNAL | | | Total | performed at [facility], [address] | | LAB | | | | [address], | | | | | | [place] [address] | | | | + + + + + + | Albumin | 2.6 (L)Comment: Testing | 3.6 - 5.0 g/dL | EXTERNAL | | | | performed at [facility], [address] | | LAB | | | | [address], | | | | | | [place] [address] | | | | + + + + + + | Globulin | 3.2Comment: Testing | 1.3 - 4.9 g/dL | EXTERNAL | | | | performed at [facility], [address] | | LAB | | | | [address], | | | | | | [place] [address] | | | | + + + + + + | A/G Ratio | 0.8 (L)Comment: Testing | 1.0 - 2.4 | EXTERNAL | | | | performed at [facility], [address] | | LAB | | | | [address], | | | | | | [place] [address] | | | | + + + + + + | Bilirubin | 0.2Comment: Testing | 0.1 - 1.5 mg/dL | EXTERNAL | | | Total | performed at [facility], [address] | | LAB | | | | [address], | | | | | | [place] [address] | | | | + + + + + + | ALP, | 77Comment: Testing | 35 - 115 U/L | EXTERNAL | | | External | performed at [facility], [address] | | LAB | | | | [address], | | | | | | [place] [address] | | | | + + + + + + | AST | 96 (H)Comment: Testing | 10 - 45 U/L | EXTERNAL | | | | performed at [facility], [address] | | LAB | | | | [address], | | | | | | [place] [address] | | | | + + + + + + | ALT | 115 (H)Comment: Testing | 10 - 65 U/L | EXTERNAL | | | | performed at [facility], [address] | | LAB | | | | [address], | | | | | | [place] [address] | | | | + + + [...] | | | | | | at [facility], [address] | | | | | | [address], | | | | | | [place] [address] | | | | + + + [...] EXTERNAL | | | | performed at [facility];888 | g/dL | LAB | | | | [address];[place] | | | | | | [address] | | | | + + + + + + | Hematocrit, | 29.8 (L)Comment: Testing | 34.0 - 46.0 % | EXTERNAL | | | POC | performed at [facility];[address] | | LAB | | | | [address];[place] | | | | | | [address] | | | | + + + [...] EXTERNAL | | | | performed at [facility];[address] | g/dL | LAB | | | | [address];[place] | | | | | | [address] | | | | + + + + + + | Hematocrit, | 29.0 (L)Comment: Testing | 34.0 - 46.0 % | EXTERNAL | | | POC | performed at [facility];[address] | | LAB | | | | [address];[place] | | | | | | [address] | | | | + + + [...] EXTERNAL | | | | performed at [facility];888 | g/dL | LAB | | | | [address];[place] | | | | | | [address] | | | | + + + + + + | Hematocrit, | 30.1 (L)Comment: Testing | 34.0 - 46.0 % | EXTERNAL | | | POC | performed at [facility];[address] | | LAB | | | | [address];[place] | | | | | | [address] | | | | + + + [...] | | | | | [place] [address] | | | | + + + + + + | Non- | 3.28 (L)Comment: Testing | 3.70 - 5.10 | EXTERNAL | | | Red Blood | performed at [facility], [address] | M/uL | LAB | | | Cells | [address], | | | | | Counted | [place] [address] | | | | + + + + + + | Hemoglobin | 9.9 (L)Comment: Testing | 11.3 - 15.5 | EXTERNAL | | | | performed at [facility], [address] | g/dL | LAB | | | | [address], | | | | | | [place] [address] | | | | + + + + + + | Hematocrit, | 30.6 (L)Comment: Testing | 34.0 - 46.0 % | EXTERNAL | | | POC | performed at [facility], [address] | | LAB | | | | [address], | | | | | | [place] [address] | | | | + + + + + + | MCV | 93.3Comment: Testing | 80.0 - 100.0 fl | EXTERNAL | | | | performed at [facility], [address] | | LAB | | | | [address], | | | | | | [place] [address] | | | | + + + + + + | MCH | 30.0Comment: Testing | 27.0 - 34.0 pg | EXTERNAL | | | | performed at [facility], [address] | | LAB | | | | [address], | | | | | | [place] [address] | | | | + + + + + + | MCHC | 32.2Comment: Testing | 32.0 - 35.5 | EXTERNAL | | | | performed at [facility], [address] | g/dL | LAB | | | | [address], | | | | | | [place] [address] | | | | + + + + + + | RDW-CV | 47.7Comment: Testing | 37 - 53 fl | EXTERNAL | | | | performed at [facility], [address] | | LAB | | | | [address], | | | | | | [place] [address] | | | | + + + + + + | Platelet | 158Comment: Testing | 150 - 400 K/uL | EXTERNAL | | | Count | performed at [facility], [address] | | LAB | | | Plasma | [address], | | | | | | [place] [address] | | | | + + + + + + | MPV | 8.9Comment: Testing | fl | EXTERNAL | | | | performed at [facility], [address] | | LAB | | | | [address], | | | | | | [place] [address] | | | | + + + + + + | Differentia | AUTOMATEDComment: | | EXTERNAL | | | l Type | Testing performed at | | LAB | | | | [facility], [address] | | | | | | [place] | | | | | | [address] | | | | + + + + + + | % Segmented | 56.56Comment: Testing | % | EXTERNAL | | | | performed at [facility], [address] | | LAB | | | Neutrophils | [address], | | | | | | [place] [address] | | | | + + + + + + | % | 29.02Comment: Testing | % | EXTERNAL | | | Lymphocytes | performed at [facility], [address] | | LAB | | | | [address], | | | | | | [place] [address] | | | | + + + + + + | % Monocytes | 8.64Comment: Testing | % | EXTERNAL | | | | performed at [facility], [address] | | LAB | | | | [address], | | | | | | [place] [address] | | | | + + + + + + | % | 5.18Comment: Testing | % | EXTERNAL | | | Eosinophils | performed at [facility], [address] | | LAB | | | | [address], | | | | | | [place] [address] | | | | + + + [...] [address], | | | | | | [place] [address] | | | | + + + + + + | Absolute | 1.60Comment: Testing | 1.00 - 3.90 | EXTERNAL | | | Lymphocytes | performed at [facility], [address] | K/uL | LAB | | | | [address], | | | | | | [place] [address] | | | | + + + + + + | Absolute | 0.48Comment: Testing | 0.00 - 0.80 | EXTERNAL | | | Monocytes | performed at [facility], [address] | K/uL | LAB | | | | [address], | | | | | | [place] [address] | | | | + + + + + + | Absolute | 0.29Comment: Testing | 0.00 - 0.50 | EXTERNAL | | | Eosinophils | performed at [facility], [address] | K/uL | LAB | | | | [address], | | | | | | [place] [address] | | | | + + + + + + | Absolute | 0.03Comment: Testing | 0.00 - 0.10 | EXTERNAL | | | Basophils | performed at [facility], [address] | K/uL | LAB | | | | [address], | | | | | | [place] [address] | | | | + + + [...] EXTERNAL | | | | performed at [facility], [address] | | LAB | | | | [address], | | | | | | [place] [address] | | | | + + + [...] | | | | | [place] [address] | | | | + + + [...] | | | | | [place] [address] | | | | + + + + + + | K | 4.0Comment: Testing | 3.5 - 4.9 | EXTERNAL | | | | performed at [facility], [address] | mmol/L | LAB | | | | [address], | | | | | | [place] [address] | | | | + + + + + + | Cl | 117 (H)Comment: Testing | 99 - 109 mmol/L | EXTERNAL | | | | performed at [facility], [address] | | LAB | | | | [address], | | | | | | [place] [address] | | | | + + + + + + | CO2 | 18 (L)Comment: Testing | 23 - 32 mmol/L | EXTERNAL | | | | performed at [facility], [address] | | LAB | | | | [address], | | | | | | [place] [address] | | | | + + + + + + | Anion Gap | 7Comment: Testing | 5 - 20 mmol/L | EXTERNAL | | | | performed at [facility], [address] | | LAB | | | | [address], | | | | | | [place] [address] | | | | + + + + + + | Glucose, | 137 (H)Comment: Testing | 65 - 99 mg/dL | EXTERNAL | | | Fasting | performed at [facility], [address] | | LAB | | | | [address], | | | | | | [place] [address] | | | | + + + + + + | BUN | 8Comment: Testing | 8 - 25 mg/dL | EXTERNAL | | | | performed at [facility], [address] | | LAB | | | | [address], | | | | | | [place] [address] | | | | + + + + + + | Creatinine | 0.57Comment: Testing | 0.50 - 1.00 | EXTERNAL | | | | performed at [facility], [address] | mg/dL | LAB | | | | [address], | | | | | | [place] [address] | | | | + + + + + + | BUN/Creatin | 14Comment: Testing | | EXTERNAL | | | ine Ratio | performed at [facility], [address] | | LAB | | | | [address], | | | | | | [place] [address] | | | | + + + + + + | Calcium | 8.2 (L)Comment: Testing | 8.5 - 10.5 | EXTERNAL | | | | performed at [facility], [address] | mg/dL | LAB | | | | [address], | | | | | | [place] [address] | | | | + + + + + + | Protein, | 5.9 (L)Comment: Testing | 6.3 - 8.2 g/dL | EXTERNAL | | | Total | performed at [facility], [address] | | LAB | | | | [address], | | | | | | [place] [address] | | | | + + + + + + | Albumin | 2.5 (L)Comment: Testing | 3.6 - 5.0 g/dL | EXTERNAL | | | | performed at [facility], [address] | | LAB | | | | [address], | | | | | | [place] [address] | | | | + + + + + + | Globulin | 3.4Comment: Testing | 1.3 - 4.9 g/dL | EXTERNAL | | | | performed at [facility], [address] | | LAB | | | | [address], | | | | | | [place] [address] | | | | + + + + + + | A/G Ratio | 0.7 (L)Comment: Testing | 1.0 - 2.4 | EXTERNAL | | | | performed at [facility], [address] | | LAB | | | | [address], | | | | | | [place] [address] | | | | + + + + + + | Bilirubin | 0.3Comment: Testing | 0.1 - 1.5 mg/dL | EXTERNAL | | | Total | performed at [facility], [address] | | LAB | | | | [address], | | | | | | [place] [address] | | | | + + + + + + | ALP, | 74Comment: Testing | 35 - 115 U/L | EXTERNAL | | | External | performed at [facility], [address] | | LAB | | | | [address], | | | | | | [place] [address] | | | | + + + + + + | AST | 160 (H)Comment: Testing | 10 - 45 U/L | EXTERNAL | | | | performed at [facility], [address] | | LAB | | | | [address], | | | | | | [place] [address] | | | | + + + + + + | ALT | 135 (H)Comment: Testing | 10 - 65 U/L | EXTERNAL | | | | performed at [facility], [address] | | LAB | | | | [address], | | | | | | [place] [address] | | | | + + + [...] | | | | | [place] [address] | | | | + + + [...] EXTERNAL | | | | performed at [facility];888 | g/dL | LAB | | | | [address];[place] | | | | | | [address] | | | | + + + + + + | Hematocrit, | 31.4 (L)Comment: Testing | 34.0 - 46.0 % | EXTERNAL | | | POC | performed at [facility];[address] | | LAB | | | | [address];[place] | | | | | | [address] | | | | + + + [...] clinical symptoms is | | | indicated. AMB:kmk:[id number] GROSS DESCRIPTION: Three specimens are | | [...] submitted in cassette (C1). | | | fm:mdm PERFORMING LABORATORY: Professional interpretation and | | | technical preparation was performed by [facility] | | | [address] [address] | | | (Senior Associate: Maximiliano Smith M.D.; IA#: [id number]). | | | Diagnostician: Adela Mixon MD [...] EXTERNAL | | | | performed at [facility];888 | g/dL | LAB | | | | [address];[place] | | | | | | [address] | | | | + + + + + + | Hematocrit, | 30.5 (L)Comment: Testing | 34.0 - 46.0 % | EXTERNAL | | | POC | performed at [facility];[address] | | LAB | | | | [address];[place] | | | | | | [address] | | | | + + + [...] | | | | | | at [facility];[address] [place] [address] | | | | | | [place] [address] | | | | + + + + + + | Methampheta | POSITIVE (A)Comment: | | EXTERNAL | | | mine | The cutoff for a | | LAB | | | Screen, UA, | positive mAMP is 1000 | | | | | POC | ng/mL.Testing performed | | | | | | at [facility];[address] | | | | | | [address];[place] [address] | | | | + + + [...] | | | Screen, | performed at [facility];[address] | | | | | UA, POC | [address];[place] | | | | | | [address] | | | | + + + + + + | Barbiturate | NEGATIVEComment: | | EXTERNAL | | | s Screen, | Positive cutoff for | | LAB | | | Urine | SHAUNA = 200 ng/mLTesting | | | | | | performed at [facility];[address] | | | | | | [address];[place] | | | | | | [address] | | | | + + + + + + | Benzodiazep | NEGATIVEComment: | | EXTERNAL | | | aura | Positive cutoff for | | LAB | | | Screen, | BENZO = 200 ng/mLTesting | | | | | Urine | performed at [facility];[address] | | | | | | [address];[place] | | | | | | [address] | | | | + + + + + + | Cocaine | NEGATIVEComment: | | EXTERNAL | | | | Positive cutoff for | | LAB | | | | MARYAM = 300 ng/mLTesting | | | | | | performed at [facility];[address] | | | | | | [address];[place] | | | | | | [address] | | | | + + + + + + | Methadone | NEGATIVEComment: | | EXTERNAL | | | | Positive cutoff for | | LAB | | | | MTD = 300 ng/mLTesting | | | | | | performed at [facility];[address] | | | | | | [address];[place] | | | | | | [address] | | | | + + + + + + | Opiates | POSITIVE (A)Comment: | | EXTERNAL | | | | Positive cutoff for | | LAB | | | | OPI = 300 ng/mLTesting | | | | | | performed at [facility];[address] | | | | | | [address];[place] | | | | | | [address] | | | | + + + + + + | PCP | NEGATIVEComment: | | EXTERNAL | | | | Positive cutoff for PCP | | LAB | | | | = 25 ng/mLTesting | | | | | | performed at [facility];8 | | | | | | [address];[place] | | | | | | [address] | | | | + + + [...] | | | | | performed at [facility];[address] | | | | | | [address];[place] | | | | | | [address] | | | | + + + [...] EXTERNAL | | | | performed at [facility];888 | g/dL | LAB | | | | [address];[place] | | | | | | [address] | | | | + + + + + + | Hematocrit, | 31.2 (L)Comment: Testing | 34.0 - 46.0 % | EXTERNAL | | | POC | performed at [facility];[address] | | LAB | | | | [address];[place] | | | | | | [address] | | | | + + + [...] | | | | | [place] [address] | | | | + + + + + + | TIBC | 282Comment: Testing | 260 - 490 ug/dL | EXTERNAL | | | | performed at [facility], [address] | | LAB | | | | [address], | | | | | | [place] [address] | | | | + + + + + + | Iron | 12 (L)Comment: Testing | 15 - 50 % | EXTERNAL | | | Saturation | performed at [facility], [address] | | LAB | | | | [address], | | | | | | [place] [address] | | | | + + + [...] | | | Reticulocyt | performed at [facility], [address] | | LAB | | | e Count | [address], | | | | | | [place] [address] | | | | + + + [...] EXTERNAL | | | | performed at [facility], [address] | | LAB | | | | [address], | | | | | | [place] [address] | | | | + + + [...] | | | External | performed at [facility], [address] | | LAB | | | | [address], | | | | | | [place] [address] | | | | + + + [...] | | | B-12 | performed at [facility], [address] | pg/mL | LAB | | | | [address], | | | | | | [place] [address] | | | | + + [...] | | | | | performed at [facility];[address] | | | | | | [facility];[place], [place] | | | | | | [address] | | | | + + + [...] K/uL | LAB | | | | [facility], [address] | | | | | | [place] | | | | | | [address] | | | | + + + + + + | Non- | 3.57 (L)Comment: Testing | 3.70 - 5.10 | EXTERNAL | | | Red Blood | performed at [facility], [address] | M/uL | LAB | | | Cells | [address], | | | | | Counted | [place] [address] | | | | + + + + + + | Hemoglobin | 10.6 (L)Comment: Testing | 11.3 - 15.5 | EXTERNAL | | | | performed at [facility], [address] | g/dL | LAB | | | | [address], | | | | | | [place] [address] | | | | + + + + + + | Hematocrit, | 33.0 (L)Comment: Testing | 34.0 - 46.0 % | EXTERNAL | | | POC | performed at [facility], [address] | | LAB | | | | [address], | | | | | | [place] [address] | | | | + + + + + + | MCV | 92.5Comment: Testing | 80.0 - 100.0 fl | EXTERNAL | | | | performed at [facility], [address] | | LAB | | | | [address], | | | | | | [place] [address] | | | | + + + + + + | MCH | 29.8Comment: Testing | 27.0 - 34.0 pg | EXTERNAL | | | | performed at [facility], [address] | | LAB | | | | [address], | | | | | | [place] [address] | | | | + + + + + + | MCHC | 32.2Comment: Testing | 32.0 - 35.5 | EXTERNAL | | | | performed at [facility], [address] | g/dL | LAB | | | | [address], | | | | | | [place] [address] | | | | + + + + + + | RDW-CV | 46.4Comment: Testing | 37 - 53 fl | EXTERNAL | | | | performed at [facility], [address] | | LAB | | | | [address], | | | | | | [place] [address] | | | | + + + + + + | Platelet | 184Comment: Testing | 150 - 400 K/uL | EXTERNAL | | | Count | performed at [facility], [address] | | LAB | | | Plasma | [address], | | | | | | [place] [address] | | | | + + + + + + | MPV | 8.9Comment: Testing | fl | EXTERNAL | | | | performed at [facility], [address] | | LAB | | | | [address], | | | | | | [place] [address] | | | | + + + + + + | Differentia | AUTOMATEDComment: | | EXTERNAL | | | l Type | Testing performed at | | LAB | | | | [facility], [address] | | | | | | [place] | | | | | | [address] | | | | + + + + + + | % Segmented | 68.68Comment: Testing | % | EXTERNAL | | | | performed at [facility], [address] | | LAB | | | Neutrophils | [address], | | | | | | [place] [address] | | | | + + + + + + | % | 18.26Comment: Testing | % | EXTERNAL | | | Lymphocytes | performed at [facility], [address] | | LAB | | | | [address], | | | | | | [place] [address] | | | | + + + + + + | % Monocytes | 8.60Comment: Testing | % | EXTERNAL | | | | performed at [facility], [address] | | LAB | | | | [address], | | | | | | [place] [address] | | | | + + + + + + | % | 4.07Comment: Testing | % | EXTERNAL | | | Eosinophils | performed at [facility], [address] | | LAB | | | | [address], | | | | | | [place] [address] | | | | + + + + + + | % Basophils | 0.39Comment: Testing | % | EXTERNAL | | | | performed at [facility], [address] | | LAB | | | | [address], | | | | | | [place] [address] | | | | + + + + + + | Absolute | 7.84 (H)Comment: Testing | 1.90 - 7.40 | EXTERNAL | | | Segmented | performed at [facility], [address] | [address] | LAB | | | Neutrophils | [address], | | | | | | [place] [address] | | | | + + + + + + | Absolute | 2.08Comment: Testing | 1.00 - 3.90 | EXTERNAL | | | Lymphocytes | performed at [facility], [address] | K/uL | LAB | | | | [address], | | | | | | [place] [address] | | | | + + + + + + | Absolute | 0.98 (H)Comment: Testing | 0.00 - 0.80 | EXTERNAL | | | Monocytes | performed at [facility], [address] | [address] | LAB | | | | [address], | | | | | | [place] [address] | | | | + + + + + + | Absolute | 0.47Comment: Testing | 0.00 - 0.50 | EXTERNAL | | | Eosinophils | performed at [facility], [address] | K/uL | LAB | | | | [address], | | | | | | [place] [address] | | | | + + + + + + | Absolute | 0.05Comment: Testing | 0.00 - 0.10 | EXTERNAL | | | Basophils | performed at [facility], [address] | K/uL | LAB | | | | [address], | | | | | | [place] [address] | | | | + + + [...] EXTERNAL | | | | performed at [facility];[address] | | LAB | | | | [address];[place], [place] | | | | | | [address] | | | | + + + [...] EXTERNAL | | | | performed at [facility];[address] | | LAB | | | | [address];[place], [place] | | | | | | [address] | | | | + + + [...] + + | Hemoglobin | 5.5Comment: [place] | 4.0 - 6.0 % | EXTERNAL [...] | | | | | performed at [facility], [address] | | | | | | [address] [facility], | | | | | | [place] [address] | | | | + + + [...] | | | | | performed at [facility], [address] | | | | | | [facility], | | | | | | [place] [address] | | | | + + + [...] EXTERNAL | | | | performed at [facility];888 | mmol/L | LAB | | | | [address];[place] | | | | | | [address] | | | | + + + + + + | K | 3.7Comment: Testing | 3.5 - 4.9 | EXTERNAL | | | | performed at [facility];[address] | mmol/L | LAB | | | | [address];[place] | | | | | | [address] | | | | + + + + + + | Cl | 112 (H)Comment: Testing | 99 - 109 mmol/L | EXTERNAL | | | | performed at [facility];[address] | | LAB | | | | [address];[place] | | | | | | [address] | | | | + + + + + + | CO2 | 22 (L)Comment: Testing | 23 - 32 mmol/L | EXTERNAL | | | | performed at [facility];[address] | | LAB | | | | [address];[place] | | | | | | [address] | | | | + + + + + + | Anion Gap | 11Comment: Testing | 5 - 20 mmol/L | EXTERNAL | | | | performed at [facility];[address] | | LAB | | | | [address];[place] | | | | | | [address] | | | | + + + + + + | Glucose, | 92Comment: Testing | 65 - 99 mg/dL | EXTERNAL | | | Fasting | performed at [facility];[address] | | LAB | | | | [address];[place] | | | | | | [address] | | | | + + + + + + | BUN | 18Comment: Testing | 8 - 25 mg/dL | EXTERNAL | | | | performed at [facility];[address] | | LAB | | | | [address];[place] | | | | | | [address] | | | | + + + + + + | Creatinine | 0.97Comment: Testing | 0.50 - 1.00 | EXTERNAL | | | | performed at [facility];[address] | mg/dL | LAB | | | | [address];[place] | | | | | | [address] | | | | + + + + + + | BUN/Creatin | 19Comment: Testing | | EXTERNAL | | | ine Ratio | performed at [facility];[address] | | LAB | | | | [address];[place] | | | | | | [address] | | | | + + + + + + | Calcium | 7.7 (L)Comment: Testing | 8.5 - 10.5 | EXTERNAL | | | | performed at [facility];888 | mg/dL | LAB | | | | [address];[place] | | | | | | [address] | | | | + + + + + + | Protein, | 7.2Comment: Testing | 6.3 - 8.2 g/dL | EXTERNAL | | | Total | performed at [facility];[address] | | LAB | | | | [address];[place] | | | | | | [address] | | | | + + + + + + | Albumin | 2.7 (L)Comment: Testing | 3.6 - 5.0 g/dL | EXTERNAL | | | | performed at [facility];[address] | | LAB | | | | [address];[place] | | | | | | [address] | | | | + + + + + + | Globulin | 4.5Comment: Testing | 1.3 - 4.9 g/dL | EXTERNAL | | | | performed at [facility];[address] | | LAB | | | | [address];[place] | | | | | | [address] | | | | + + + + + + | A/G Ratio | 0.6 (L)Comment: Testing | 1.0 - 2.4 | EXTERNAL | | | | performed at [facility];[address] | | LAB | | | | [address];[place] | | | | | | [address] | | | | + + + + + + | Bilirubin | 1.0Comment: Testing | 0.1 - 1.5 mg/dL | EXTERNAL | | | Total | performed at [facility];[address] | | LAB | | | | [address];[place] | | | | | | [address] | | | | + + + + + + | ALP, | 100Comment: Testing | 35 - 115 U/L | EXTERNAL | | | External | performed at [facility];[address] | | LAB | | | | [address];[place] | | | | | | [address] | | | | + + + + + + | AST | 311 (H)Comment: Testing | 10 - 45 U/L | EXTERNAL | | | | performed at [facility];[address] | | LAB | | | | [address];[place] | | | | | | [address] | | | | + + + + + + | ALT | 236 (H)Comment: Testing | 10 - 65 U/L | EXTERNAL | | | | performed at [facility];[address] | | LAB | | | | [address];[place] | | | | | | [address] | | | | + + + [...] | | | | | | at [facility];[address] | | | | | [address];[place] [address] | | | | + + + [...] EXTERNAL | | | | performed at [facility];888 | g/dL | LAB | | | | [address];[place] | | | | | | [address] | | | | + + + + + + | Hematocrit, | 32.4 (L)Comment: Testing | 34.0 - 46.0 % | EXTERNAL | | | POC | performed at [facility];[address] | | LAB | | | | [address];[place], [place] | | | | | | [address] | | | | + + + [...] | EXTERNAL LAB | | performed at [facility];[address] [facility];[place] [address] 027 NAP1 BI | | | 027 NAP1 BI PRESUMPTIVE NEGATIVE | | | Detection of 027 NAP1 BI strains of C. difficile is presumptive and | | | for epidemiological purposes and not intended to guide or monitor | | | treatment for C. difficile infections. Testing performed at [facility] | | | [facility];[place] [address] | | + + + + +---------+ [...] | + + + | BISI ESPITIA BLADDER 01/10/2015 7:57 PM HISTORY: 54 | | | years. Female. Difficulty emptying bladder. Assess for | | | obstructive uropathy. TECHNIQUE: Imaging was performed using a 4 | | | MHz curved array transducer. COMPARISON: None. | | + + + + + | Procedure Note | + + | Nikita Hearn - 01/17/2019 12:26 AM SVETLANA CHRISTOPHER BLADDER01/10/2015 7:57 | | PM HISTORY:54 [...] Conversion - 01/17/2019 12:26 AM PDT BISI CHRISTOPHER ABDOMEN | | COMPLETE01/10/2015 7:57 PM [...] EXTERNAL | | | | performed at [facility];888 | g/dL | LAB | | | | [address];[place] | | | | | | [address] | | | | + + + + + + | Hematocrit, | 34.4Comment: Testing | 34.0 - 46.0 % | EXTERNAL | | | POC | performed at [facility];[address] | | LAB | | | | [address];[place] | | | | | | [address] | | | | + + + [...] LAB | | | | performed at [facility], [address] | | | | | | [address], | | | | | | [place] [address] | | | | + + + [...] | | | | | [place] [address] | | | | + + + + + + | Clarity, | CLEARComment: Testing | | EXTERNAL | | | Urine | performed at [facility], [address] | | LAB | | | | [address], | | | | | | [place] [address] | | | | + + + + + + | Specific | 1.017Comment: Testing | 1.002 - 1.030 | EXTERNAL | | | [place], | performed at [facility], [address] | | LAB | | | Urine | [address], | | | | | | [place] [address] | | | | + + + + + + | Leukocyte | NEGATIVEComment: Testing | | EXTERNAL | | | Esterase, | performed at [facility], [address] | | LAB | | | Urine | [address], | | | | | | [place] [address] | | | | + + + + + + | Nitrite, | NEGATIVEComment: Testing | | EXTERNAL | | | Urine | performed at [facility], [address] | | LAB | | | | [address], | | | | | | [place] [address] | | | | + + + + + + | Urobilinoge | 0.2Comment: Testing | mg/dL | EXTERNAL | | | n, Urine | performed at [facility], [address] | | LAB | | | | [address], | | | | | | [place] [address] | | | | + + + + + + | Protein, | NEGATIVEComment: Testing | mg/dL | EXTERNAL | | | Urine | performed at [facility], [address] | | LAB | | | | [address], | | | | | | [place] [address] | | | | + + + + + + | pH, Urine | 6.0Comment: Testing | 5.0 - 8.0 | EXTERNAL | | | | performed at [facility], [address] | | LAB | | | | [address], | | | | | | [place] [address] | | | | + + + + + + | Blood, | MODERATE (A)Comment: | | EXTERNAL | | | Urine | Testing performed at | | LAB | | | | [facility], [address] [facility] | | | | | | [place] | | | | | | [address] | | | | + + + + + + | Ketones | NEGATIVEComment: Testing | mg/dL | EXTERNAL | | | | performed at [facility], [address] | | LAB | | | | [address], | | | | | | [place] [address] | | | | + + + + + + | Bilirubin, | MODERATE (A)Comment: | | EXTERNAL | | | Urine | Testing performed at | | LAB | | | | [facility], [address] | | | | | | [place] | | | | | | [address] | | | | + + + + + + | Glucose, | NEGATIVEComment: Testing | mg/dL | EXTERNAL | | | Urine | performed at [facility], [address] | | LAB | | | | [address], | | | | | | [place] [address] | | | | + + + [...] | | | | | [place] [address] | | | | + + + + + + | Epithelial | 16-25Comment: Testing | /lpf | EXTERNAL | | | Cells | performed at [facility], [address] | | LAB | | | | [address], | | | | | | [place] [address] | | | | + + + + + + | Bacteria, | 1+ (A)Comment: Testing | | EXTERNAL | | | UA | performed at [facility], [address] | | LAB | | | | [address], | | | | | | [place] [address] | | | | + + + + + + | HYALINE | 0-2Comment: Testing | | EXTERNAL | | | CASTS UA | performed at [facility], [address] | | LAB | | | | [address], | | | | | | [place] [address] | | | | + + + [...] LAB | | | | Blvd;[place] [address] | | | | + + + + + + | Antibody | NEGATIVE | | EXTERNAL | | | Screen | | | LAB | | + + + + + + | Antibody | Testing performed at | | EXTERNAL | | | Screen | [facility];[address] | | LAB | | | | [address];[place] [address] | | | | + + + + + + | BB BAND | [id number] | | EXTERNAL | | | | | | LAB | | + + + + + + | BB BAND | Testing performed at | | EXTERNAL | | | | [facility];[address] | | LAB | | | | [address];[place] [address] | | | | + + + [...] WORKUP | | | Testing performed at [facility], [address] [place] [address], | | | [place] [address] | | + + + + +---------+ [...] | | | Urine | performed at [facility], [address] | | LAB | | | Random | [address], | | | | | | [place] [address] | | | | + + + [...] EXTERNAL | | | | performed at [facility];[address] | | LAB | | | | [address];[place] | | | | | | [address] | | | | + + + + + + | RBC, UA | 0-2Comment: Testing | 0 - 5 /hpf | EXTERNAL | | | | performed at [facility];[address] | | LAB | | | | [address];[place] | | | | | | [address] | | | | + + + + + + | Epithelial | 50-100Comment: Testing | /lpf | EXTERNAL | | | Cells | performed at [facility];[address] | | LAB | | | | [address];[place] | | | | | | [address] | | | | + + + + + + | Bacteria, | 3+ (A)Comment: Testing | | EXTERNAL | | | UA | performed at [facility];[address] | | LAB | | | | [address];[place] | | | | | | [address] | | | | + + + + + + | CASTS | 16-25Comment: FINE | /lpf | EXTERNAL | | | | GRANULARTesting | | LAB | | | | performed at [facility];[address] | | | | | | [address];[place] | | | | | | [address] | | | | + + + [...] | | | | | performed at [facility] | | | | | | [address];[place], [place] | | | | | | [address] | | | | + + + [...] K/uL | LAB | | | | [facility];[address] [facility] | | | | | | Blvd;[place] [address] | | | | + + + + + + | Non- | 4.21Comment: Testing | 3.70 - 5.10 | EXTERNAL | | | Red Blood | performed at [facility];[address] | M/uL | LAB | | | Cells | [address];[place] | | | | | Counted | [address] | | | | + + + + + + | Hemoglobin | 12.4Comment: Testing | 11.3 - 15.5 | EXTERNAL | | | | performed at [facility];888 | g/dL | LAB | | | | [address];[place] | | | | | | [address] | | | | + + + + + + | Hematocrit, | 37.6Comment: Testing | 34.0 - 46.0 % | EXTERNAL | | | POC | performed at [facility];[address] | | LAB | | | | [address];[place] | | | | | | [address] | | | | + + + + + + | MCV | 89.4Comment: Testing | 80.0 - 100.0 fl | EXTERNAL | | | | performed at [facility];[address] | | LAB | | | | [address];[place] | | | | | | [address] | | | | + + + + + + | MCH | 29.4Comment: Testing | 27.0 - 34.0 pg | EXTERNAL | | | | performed at [facility];[address] | | LAB | | | | [address];[place] | | | | | | [address] | | | | + + + + + + | MCHC | 32.9Comment: Testing | 32.0 - 35.5 | EXTERNAL | | | | performed at [facility];888 | g/dL | LAB | | | | [address];[place] | | | | | | [address] | | | | + + + + + + | RDW-CV | 46.4Comment: Testing | 37 - 53 fl | EXTERNAL | | | | performed at [facility];[address] | | LAB | | | | [address];[place] | | | | | | [address] | | | | + + + + + + | Platelet | 251Comment: Testing | 150 - 400 K/uL | EXTERNAL | | | Count | performed at [facility];[address] | | LAB | | | Plasma | [address];[place] | | | | | | [address] | | | | + + + + + + | MPV | 8.3Comment: Testing | fl | EXTERNAL | | | | performed at [facility];[address] | | LAB | | | | [address];[place] | | | | | | [address] | | | | + + + + + + | Differentia | AUTOMATEDComment: | | EXTERNAL | | | l Type | Testing performed at | | LAB | | | | [facility];[address] | | [address];[place] [address] | | | | + + + + + + | % Segmented | 77.07Comment: Testing | % | EXTERNAL | | | | performed at [facility];[address] | | LAB | | | Neutrophils | [address];[place] | | | | | | [address] | | | | + + + + + + | % | 11.95Comment: Testing | % | EXTERNAL | | | Lymphocytes | performed at [facility];[address] | | LAB | | | | [address];[place] | | | | | | [address] | | | | + + + + + + | % Monocytes | 8.49Comment: Testing | % | EXTERNAL | | | | performed at [facility];[address] | | LAB | | | | [address];[place] | | | | | | [address] | | | | + + + + + + | % | 1.48Comment: Testing | % | EXTERNAL | | | Eosinophils | performed at [facility];[address] | | LAB | | | | [address];[place] | | | | | | [address] | | | | + + + + + + | % Basophils | 1.01Comment: Testing | % | EXTERNAL | | | | performed at [facility];[address] | | LAB | | | | [address];[place] | | | | | | [address] | | | | + + + + + + | Absolute | 12.59 (H)Comment: | 1.90 - 7.40 | EXTERNAL | | | Segmented | Testing performed at | K/uL | LAB | | | Neutrophils | [facility];[address] | | | | | [address];[place] [address] | | | | + + + + + + | Absolute | 1.95Comment: Testing | 1.00 - 3.90 | EXTERNAL | | | Lymphocytes | performed at [facility];[address] | K/uL | LAB | | | | [address];[place] | | | | | | [address] | | | | + + + + + + | Absolute | 1.39 (H)Comment: Testing | 0.00 - 0.80 | EXTERNAL | | | Monocytes | performed at [facility];[address] | K/uL | LAB | | | | [address];[place] | | | | | | [address] | | | | + + + + + + | Absolute | 0.24Comment: Testing | 0.00 - 0.50 | EXTERNAL | | | Eosinophils | performed at [facility];[address] | K/uL | LAB | | | | [address];[place] | | | | | | [address] | | | | + + + + + + | Absolute | 0.17 (H)Comment: Testing | 0.00 - 0.10 | EXTERNAL | | | Basophils | performed at [facility];[address] | K/uL | LAB | | | | [address];[place] | | | | | | [address] | | | | + + + [...] EXTERNAL | | | | performed at [facility] | | LAB | | | | [address];[place] | | | | | | [address] | | | | + + + [...] EXTERNAL | | | | performed at [facility];[address] | | LAB | | | | [address];[place], [place] | | | | | | [address] | | | | + + + [...] EXTERNAL | | | | performed at [facility];[address] | | LAB | | | | [address] [facility];[place], [place] | | | | | | [address] | | | | + + + [...] EXTERNAL | | | | performed at [facility];[address] | | LAB | | | | [address];[place] | | | | | | [address] | | | | + + + [...] EXTERNAL | | | | performed at [facility];888 | mmol/L | LAB | | | | [address];[place] | | | | | | [address] | | | | + + + + + + | K | 4.1Comment: Testing | 3.5 - 4.9 | EXTERNAL | | | | performed at [facility];[address] | mmol/L | LAB | | | | [address];[place] | | | | | | [address] | | | | + + + + + + | Cl | 109Comment: Testing | 99 - 109 mmol/L | EXTERNAL | | | | performed at [facility];[address] | | LAB | | | | [address];[place] | | | | | | [address] | | | | + + + + + + | CO2 | 19 (L)Comment: Testing | 23 - 32 mmol/L | EXTERNAL | | | | performed at [facility];[address] | | LAB | | | | [address];[place] | | | | | | [address] | | | | + + + + + + | Anion Gap | 16Comment: Testing | 5 - 20 mmol/L | EXTERNAL | | | | performed at [facility];[address] | | LAB | | | | [address];[place] | | | | | | [address] | | | | + + + + + + | Glucose, | 174 (H)Comment: Testing | 65 - 99 mg/dL | EXTERNAL | | | Fasting | performed at [facility];[address] | | LAB | | | | [address];[place] | | | | | | [address] | | | | + + + + + + | BUN | 42 (H)Comment: Testing | 8 - 25 mg/dL | EXTERNAL | | | | performed at [facility];[address] | | LAB | | | | [address];[place] | | | | | | [address] | | | | + + + + + + | Creatinine | 2.6 (H)Comment: Testing | 0.50 - 1.00 | EXTERNAL | | | | performed at [facility];888 | mg/dL | LAB | | | | [address];[place] | | | | | | [address] | | | | + + + + + + | BUN/Creatin | 16Comment: Testing | | EXTERNAL | | | ine Ratio | performed at [facility];[address] | | LAB | | | | [address];[place] | | | | | | [address] | | | | + + + + + + | Calcium | 9.0Comment: Testing | 8.5 - 10.5 | EXTERNAL | | | | performed at [facility];888 | mg/dL | LAB | | | | [address];[place] | | | | | | [address] | | | | + + + + + + | Protein, | 8.6 (H)Comment: Testing | 6.3 - 8.2 g/dL | EXTERNAL | | | Total | performed at [facility];[address] | | LAB | | | | [address];[place] | | | | | | [address] | | | | + + + + + + | Albumin | 3.4 (L)Comment: Testing | 3.6 - 5.0 g/dL | EXTERNAL | | | | performed at [facility];[address] | | LAB | | | | [address];[place] | | | | | | [address] | | | | + + + + + + | Globulin | 5.2 (H)Comment: Testing | 1.3 - 4.9 g/dL | EXTERNAL | | | | performed at [facility];[address] | | LAB | | | | [address];[place] | | | | | | [address] | | | | + + + + + + | A/G Ratio | 0.6 (L)Comment: Testing | 1.0 - 2.4 | EXTERNAL | | | | performed at [facility];[address] | | LAB | | | | [address];[place] | | | | | | [address] | | | | + + + + + + | Bilirubin | 0.5Comment: Testing | 0.1 - 1.5 mg/dL | EXTERNAL | | | Total | performed at [facility] [place];[address] | | LAB | | | | [address];[place] | | | | | | [address] | | | | + + + + + + | ALP, | 127 (H)Comment: Testing | 35 - 115 U/L | EXTERNAL | | | External | performed at [facility] [place];[address] | | LAB | | | | [address];[place] | | | | | | [id number] | | | | + + + + + + | AST | 382 (H)Comment: Testing | 10 - 45 U/L | EXTERNAL | | | | performed at [facility] [place];[address] | | LAB | | | | [address];[place] | | | | | | [id number] | | | | + + + + + + | ALT | 315 (H)Comment: Testing | 10 - 65 U/L | EXTERNAL | | | | performed at [facility] [place];[address] | | LAB | | | | [facility], [place] | | | | | | [address] | | | | + + + [...] | | | | | | at [facility] [place];[address];[place] [address] | | | | + + + [...]
--- OUTSIDE RECORDS SUMMARY | ~2020-02-12 | XMS | Encounter Summary ---
Demographics + + + | Address | [address] | | | [place] [address] | + + + | Home Phone [...] | [facility] | | | and [place] | + + + | Organization | [facility] | | | [...] Team Providers + +------+ + | Care Cna Pct Name | Role | Phone | + +------+ + | Hayden Acevedo MD | PCP | | + +------+ + Encounter Details +--------+ + + + + | Date | Type | Department | Care Team | Description | +--------+ + + + + | 10/10/ | Emergency | [facility] | Mikayla Stahl, | COPD exacerbation | | 2013 | | MEDICAL CENTER | [facility] [address] | ([facility]); Arthritis; | | | | EMERGENCY CENTER | [place] [address] | Ankle pain, right; | | | | [address] | [phone] | Tobacco abuse | | | | [place], [place] | | | | | | [address] | | | | | | [phone] | | | +--------+ + + + [...] documented as of this encounter ED Notes Riley Stahl MD - 10/10/2013 7:43 PM PDTFormatting of this note might be different fro m the original. ED Provider Notes by Catie Stahl MD at 10/10/131942 Author: Catie Stahl MD Service: (none) Author Type: Physician Filed: 10/12/13 0052 Date of Service: 10/10/131942 Status: Signed Brine Mixer Operator: Catie Stahl MD (Physician) [facility] Department of Emergency Medicine History of Present Illness Patient Identification Bisi Becker is a 53 y.o. female. Patient information was obtained from patient. History/Exam limitations: none. Patient presented to the Emergency Department by: Car Chief Complaint Chief Complaint Patient presents with COPD "it's been acting over the past couple of weeks. I keep coughing." The patient complains of COPD exacerbation. Onset of symptoms was a couple of weeks ago, wi th a intermittent course since that time. The patient also complains of gout and reports hav ing a family hx of it as well as arthritis in her R ankle and bilateral shoulders. The patie nt states she has had a productive cough which is worse at night, fever, and generalized bod y aches. The patient denies ambulating a lot because she is awaiting a surgery on her left l eg. She does have to walk funny and extra on her right foot due to this injury. There was no care prior to arrival. Past medical hx: Anxiety, hypertension, depression, hepatitis C, sleep apnea Past surgical hx: Hysterectomy, cholecystectomy, bladder surgery Past Medical History Diagnosis Date Anxiety Hypertension [...] for Wheezing. 06/22/13 06/22/14 Yes Navneet Stewart, ergocalciferol (DRISDOL) 91127 UNITS capsule Take 1 capsule by mouth once a week. 08/29/13 Yes ANURAG Winters estradiol (ESTRACE VAGINAL) 0.1 MG/GM vaginal cream Place one gram vaginally qhs x 2 weeks, then begin using one gram vaginally three times weekly at night. 07/02/13 Yes Misha ortiz MD FLUoxetine (PROZAC) 40 MG capsule Take 1 capsule by mouth daily. 06/25/13 Yes ANURAG Osullivan gabapentin (NEURONTIN) 100 MG capsule Take 1 capsule by mouth 2 (two) times daily. 08/25/13 08/25/14 Yes Rosemary Perea MD gabapentin (NEURONTIN) 300 MG capsule Take 600 mg by mouth nightly. Yes Historical Provid er hydrALAZINE (APRESOLINE) 25 MG tablet Take 1-2 tablets PO every 8 hours as needed for anxie ty 09/18/13 Yes ANURAG Winters hydrOXYzine (ATARAX) 25 MG tablet Take 50 mg by mouth 3 (three) times daily as needed. Ye s Historical Provider ipratropium-albuterol (COMBIVENT) 18-103 MCG/ACT inhaler Inhale 2 puffs into the lungs ever y 6 (six) hours as needed for Wheezing. 09/02/13 Yes ANURAG Winters levothyroxine (SYNTHROID, LEVOTHROID) 25 [...] (six) hours as needed for Anx iety. 10/08/13 Yes Juaquin Landaverde MD OLANZapine (ZYPREXA) 10 MG tablet Take 1 tablet by mouth nightly. 06/27/13 Yes ANURAG Stevens nd omeprazole (PRILOSEC) 20 MG capsule Take 20 mg by mouth every morning before breakfast. Y es Historical Provider oxyCODONE-acetaminophen (PERCOCET) 10-325 MG per tablet Take 1 tablet by mouth daily as nee ded for Pain. 09/23/13 Yes Rosemary Perea MD Spacer/Aero-Holding Chambers (AEROCHAMBER MV) inhaler For use with inhalers 06/22/13 06/22/14 Yes Navneet Stewart, baclofen (LIORESAL) 10 MG tablet take 1-2 tablets by mouth every 8 hours if needed for musc le spasm and TIGHTNESS 09/25/13 Rosemary Perea MD solifenacin (VESICARE) 10 MG tablet Take 1 tablet by mouth daily. 08/07/13 08/07/14 Misha naidu MD ranitidine (ZANTAC) 150 MG tablet Take 1 tablet by mouth 2 (two) times daily. 08/22/13 4 ANURAG Winters No Known Allergies History Social History Marital [...] disease Mother Diabetes Father Review of Systems Constitutional: Yes fever ENT: No blindness, no rhinitis, no sore throat Cardiovascular: No chest pain Respiratory: Yes SOB and a productive cough Gastrointestinal: No abdominal pain, N/V/D, black or bloody stools Genitourinary: No dysuria, hematuria Musculoskeletal: Yes generalized body aches Skin: No laceration or rash Neuro and psych: No head injury, seizure, headache Endocrine/Heme/Lymph: No easy bruising or bleeding. Physical Exam BP 134/61 | Pulse 87 | Temp 98.2 F (36.8 C) (Temporal) | Resp 22 | Wt 106.4 kg (234 lb 9.1 oz) | SpO2 96% Vital Sign interpretation: tachypneic otherwise WNL Pulse Oximetry interpretation: nl General: Alert, in no apparent distress Eyes: Non-icteric ENT: Normal external exam Neck: Supple Cardiovascular: Warm and well perfused Respiratory: Some scattered expiratory wheezes R worse than L with a question of mild blunt ing of breath sounds on the R Extremities: Mild focal tenderness over the arch of the R foot and ankle. No erythema, mild swelling to the ankle and is not warm to touch. There is good motion in the joints with rome e tenderness with the R ankle ROM Back: Normal ROM Skin: Color normal Warm and dry No rash Neuro: Alert, no AMS No gross motor/sensory deficits Medical Decision Making and Emergency Department Course ED Department Course Not sure if there was occult trauma, but the exam shows only slight swelling in in ankle th at she knows to have arthritis in it and has been walking on it awkwardly due to her other l eg issues. I think pain control/nsaids will help with this. I did review her renal functi on,and it is currently very good, so I think she is safe using them in the short term. Regarding her worsened copd - there are unequal BS, so I will check cxr. Xray negative for pneumonia. I will put her on a course of steroids. This may help with star rahman arthritis as a side benefit. 9:08 PM- Pt reevaluation. I have discussed my clinical impression and treatment plan with t josiah pt. We have specifically discussed the signs and symptoms that would constitute the need for an immediate return to the ED, the importance of continued outpatient f/u and the import ance of compliance with the d/c instructions. I have answered any questions that the pt has to the best of my ability. Based upon the pt s history, physical exam, ED course, and diag nostic studies, I feel that there is no current emergent medical condition that warrants adm ission, transfer, or further ED treatment at this time. Records Reviewed Old medical records. Nursing notes. Previous ED visits for similar and unrelated complaints. Laboratory Evaluation Results None Radiology and EKG Evaluation Imaging Results XR Chest PA and Lateral (Final result) Result time:10/11/13 0030 Final result by Rad Results In Dhiraj (10/11/13 00:30:07) Impression: Can't exclude a left basilar infiltrate. Subtle bronchitis, mild recurrent edema or pneumo nitis are differential considerations. Narrative: History: 53 year-old female with shortness of breath. Technique: Frontal and lateral, 2 view radiographic examination of the chest. 19 September 2013 prior study for comparison. Findings: Cardiomediastinum is normal. Lungs are symmetrically inflated without pneumothorax or effusion, there is some improvemen t of the diffuse mid lung field and basilar patchy disease seen earlier. Bones and soft tissues are normal for age. ED Diagnoses Final diagnoses COPD exacerbation Arthritis Ankle pain, right Tobacco abuse Disposition: ED Disposition Discharge Condition at discharge: Stable Follow-up Information Follow up With Details Comments Contact Info ANURAG Winters In 3 days [address] [facility] [address] [facility] Emergency Department If symptoms worsen [address] [facility] [address] Discharge Medications: New Prescriptions BENZONATATE (TESSALON) 100 MG CAPSULE Take 1 capsule by mouth 3 (three) times daily as needed for Cough. IBUPROFEN (MOTRIN) 600 MG TABLET Take 1 tablet by mouth See Admin Instructions. Take 1 tab three times a day for five days, and then q6-8 hrs prn. Take with food. Discontinue if GI intolerance. PREDNISONE (DELTASONE) 20 MG TABLET Take 3 tablets by mouth daily. Additional Documentation Procedures Attending Note: Documentation assistance provided by Ciarra Virgen (Scribe). Information recorded by the scribe has been reviewed and validated by . Jadyn robertson with its contents. MD Catie Chopra MD 10/12/13 0052 documented in this e ncounter Plan of [...] Rad Conversion - 01/18/2019 1:22 AM PDT History: [...] disorder | + + documented in this encounter
--- OUTSIDE RECORDS SUMMARY | ~2020-02-12 | XMS | Encounter Summary ---
Demographics + + + | Address | [address] | | | [place] [address] | + + + | Home Phone | | + + + | Preferred Language | Unknown | + + + | Marital Status | Single | + + + | Hinduism Affiliation | 1009 | + + + | Race | White | + + + | Ethnic Group | Not or | + + + Author + + + | Author | [facility] | | | and [place] | + + + | Organization | [facility] | | | and [...] Team Providers + +------+ + | Care Dairy Store Manager Name | Role | Phone | + +------+ + | Hayden Acevedo MD | PCP | | + +------+ + Encounter Details +--------+ + + + + | Date | Type | Department | Care Team | Description | +--------+ + + + + | 10/08/ | Hospital | [facility] | Conversion | Abdominal pain | | 2014 | Encounter | [facility] | Transaction, | | | | | [address] | Provider Unknown | | | | | [address] | [phone] | | | | | [place], [place] | | | | | | [address] | | | | | | [phone] | | | +--------+ + + + [...]
--- OUTSIDE RECORDS SUMMARY | ~2020-02-12 | XMS | Encounter Summary ---
Demographics + + + | Address | [address] | | | [place] [address] | + + + | Home Phone [...] Author | [facility] | | | and [place] | + + + | Organization | [facility] | | | and [place] | + + + | Address | Unknown | + + + | Phone | Unavailable | + + + Support + + +---------+ + | Name | Relationship | Address | Phone | + + +---------+ + | Gene Sotelo | ECON | Unknown | | + + +---------+ + | Markverónica Lewis | ECON | Unknown | | + + +---------+ + Care Team Providers + +------+ + | Care Business Development Name | Role | Phone | + +------+ + PCP | Unavailable | + +------+ + Encounter Details +--------+ + + + + | Date | Type | Department | Care Team | Description | +--------+ + + + + | 08/09/ | Emergency | [facility] | Tonio Zurita, | Unspecified Backache | | 2009 | | MEDICAL CENTER | MD [address] | | | | | EMERGENCY CENTER | [place], [place] | | | | | [address] | [address] | | | | | [place], [place] | [phone] | | | | | [address] | | | | | | [phone] | | | +--------+ + + + [...] filedocumented as of this encounter Visit Diagnoses + + | Diagnosis | + + | Backache, unspecified | + + documented in this encounter"
--- OUTSIDE RECORDS SUMMARY | ~2020-02-12 | XMS | Encounter Summary ---
Demographics + + + | Address | [address] | | | [place] [address] | + + + | Home Phone [...] Team Providers + +------+ + | Care Traffic Supervisor Name | Role | Phone | + +------+ + | Naren Nina PA-C | PCP | | + +------+ + Encounter Details +--------+ + + + + | Date | Type | Department | Care Team | Description | +--------+ + + + + | 03/17/ | Orders Only | [facility] | HallMaximiliano L, | | | 2013 | | AND ANKLE XRAY [address] | DPM [address] | | | | | [address] | [address], | | | | | [place], [place] | [place] [address] | | | | | [address] | [phone] | | | | | [phone] | | | +--------+ + + + [...]
--- OUTSIDE RECORDS SUMMARY | ~2020-02-12 | XMS | Encounter Summary ---
Demographics + + + | Address | [address] | | | [place] [address] | + + + | Home Phone [...] Team Providers + +------+ + | Care Compounder Name | Role | Phone | + [...] [address] | | | | | [place], [place] | [address] | | | | | [address] | [place] [address] | | | | | [phone] | [phone] | | | | | | | [...] by | | | | | | TeacherTube liquid | | | | | | [...]
--- OUTSIDE RECORDS SUMMARY | ~2020-02-12 | XMS | Encounter Summary ---
Demographics + + + | Address | [address] | | | [place] [address] | + + + | Home Phone [...] | Author | [facility] | | | and [place] | + + + | Organization | [facility] | | | [...] Team Providers + +------+ + | Care Rouge Mixer Name | Role | Phone | + +------+ + | Naren Nina PA-C | PCP | | + +------+ + Encounter Details +--------+ + + + + | Date | Type | Department | Care Team | Description | +--------+ + + + + | 02/15/ | Orders Only | [facility] | Conversion | | | 2017 | | INFECTIOUS DISEASE | Transaction, | | | | | [address] | Provider Unknown | | | | | [place], [place] | | | | | | [address] | (Fax) | | | | | [phone] | | | +--------+ + + + [...]
--- OUTSIDE RECORDS SUMMARY | ~2020-02-12 | XMS | Encounter Summary ---
Demographics + + + | Address | [address] | | | [place] [address] | + + + | Home Phone [...] | Author | [facility] | | | and [place] | + + + | Organization | [facility] | | | [...] Team Providers + +------+ + | Care Offset Platemaker Name | Role | Phone | + +------+ + | Hayden Acevedo MD | PCP | | + +------+ + Encounter Details +--------+ + + + + | Date | Type | Department | Care Team | Description | +--------+ + + + + | 03/30/ | Emergency | [facility] | Henry Cedillo MD | COPD exacerbation | | 2013 | | [facility] | [address] | ([facility]) | | | | EMERGENCY CENTER | [place] [address] | | | | | [address] | [phone] | | | | | [place], [place] | | | | | | [address] | | | | | | [phone] | | | +--------+ + + + [...] Author: OG Bardales Service: (none) Author Type: Canceling Machine Operator Filed: 03/30/142125 Date of Service: 03/30/142125 Status: Signed Commercial Loan Specialist: OG Bardales (Canceling Machine Operator) BALDO vega Pt with 6 ED visits [...] 03/30/142153 Date of Service: 03/30/142153 Status: Signed Commercial Loan Specialist: Celia Oro RN (Registered Nurse) RT called for treatment. Celia Oro RN 03/30/142153 Henry Norman MD - 03/30/2014 9:08 PM PDTFormatting of this note might be different from the origin al. ED Provider Notes by Henry Cedillo MD at 03/30/142107 Author: Henry Cedillo MD Service: (none) Author Type: Physician Filed: 03/31/14 0052 Date of Service: 03/30/142107 Status: Signed Commercial Loan Specialist: Henry Cedillo MD (Physician) [facility] Department of Emergency Medicine History [...] REPAIR); Surgeon: Misha Dye MD; Locatio n: [facility]; Service: ELECTROPHYSIOLOGY SCIENTIST; Laterality: N/A; Anterior portion was not completed Bladder suspension 12/24/2013 Procedure: BLADDER SUSPENSION - TVT; Surgeon: Misha Dye MD; Location: [facility]; Service: ELECTROPHYSIOLOGY SCIENTIST; Laterality: N/A; TVT exact Cystoplasty 12/24/2013 Procedure: CYSTOSCOPY - HYDRODISTENTION OF BLADDER; Surgeon: Misha Dye MD; Locati on: [facility]; Service: ELECTROPHYSIOLOGY SCIENTIST; Laterality: N/A; 70 degree scope. Indigo Emilia dye a vailable to Anesthesiologist Enterocele repair 12/24/2013 Procedure: ENTEROCELE RPR; Surgeon: Misha Dye MD; Location: [facility]; Servic e: ELECTROPHYSIOLOGY SCIENTIST; Laterality: N/A; Foraminotomy Left 01/30/2014 Procedure: FORAMINOTOMY; Surgeon: Juan Alberto Worrell MD; Location: [facility]; Service: Neurosurgery; Laterality: Left; [...] for Cough. 10/31/13 ANURAG Winters ergocalciferol (DRISDOL) 89797 UNITS capsule Take 1 capsule by mouth [...] Allergen Reactions Morphine Other (See Comments) Used ENGINE REPAIRER PRODUCTION and it lowered her BP And medication [...] Information Follow up With Details Comments Contact [facility] Schedule an appointment as soon as possible for a vis it [address] [facility] [address] [facility] Emergency Department If symptoms worsen [address] [facility] [address] Discharge Medications: Discharge Medication List as of [...] 03/30/142055 Date of Service: 03/30/142055 Status: Signed Commercial Loan Specialist: Samara Canas RN (Registered Nurse) Pt c/o SOB r/t COPD exacerbation for 2 days. Pt states she has had a bad cough and has been coughing up yellow phlegm. Samara Canas RN 03/30/142055 docume nted in this encounter Plan of [...] Rad Conversion - 01/18/2019 1:22 AM PDT HISTORY:Shortness [...]
--- OUTSIDE RECORDS SUMMARY | ~2020-02-12 | XMS | Encounter Summary ---
Demographics + + + | Address | [address] | | | [place] [address] | + + + | Home Phone [...] Providers + +------+ + | Care Engineering Mechanic Name | Role | Phone | [...] + + | 10/30/ | Telephone | [facility] | Jose Gonzalez DO | Other | | 2020 | | NEUR[address]URGERY [address] | [address] | | | | | [address] | | | | | [place], [place] | [place] [address] | | | | | [address] | [phone] | | | | | [phone] | | | +--------+ + + + [...] Miscellaneous Notes Telephone Encounter - Tara Mcneal, Groover Runner - 11/03/2019 3:40 PM PDTReturned call to [...] transfer the call to a [place] demonstrator was caller made aware that if at any time she feels it is an emergency they sh ould call 911 or go to the nearest emergency room? not applicable documented in this encounter Plan of Treatment Not on filedocumented as of this encounter Visit Diagnoses Not on filedocumented in this encounter"
--- OUTSIDE RECORDS SUMMARY | ~2020-02-12 | XMS | Encounter Summary ---
Demographics + + + | Address | [address] | | | [place] [address] | + + + | Home Phone [...] + | Author | [facility] | | | and [place] | + + + | Organization | [facility] | | | [...] Providers + +------+ + | Care Case Managers Name | Role | Phone | + +------+ + | Naren Nina PA-C | PCP | | + +------+ + Encounter Details +--------+ + + + + | Date | Type | Department | Care Team | Description | +--------+ + + + + | 05/24/ | Hospital | [facility] | Conversion | Pain | | 2017 | Encounter | CONVERSION [address] | Transaction, | | | | | [address] | Provider Unknown | | | | | [place] | [phone] | | | | | [address] | | | | | | [phone] | | | +--------+ + + + [...]
--- OUTSIDE RECORDS SUMMARY | ~2020-02-12 | XMS | Encounter Summary ---
Demographics + + + | Address | [address] | | | [place] [address] | + + + | Home Phone [...] + + | Author | [facility] | | | and [place] | + + + | Organization | [facility] | | | [...] Team Providers + +------+ + | Care Brief Writer Name | Role | Phone | + +------+ + | Naren Nina PA-C | PCP | | + +------+ + Reason for Visit + +--------+ + | Reason | Onset | Comments | | | Date | | + +--------+ + | Follow-up | 10/28/ | | | | 2019 | | + +--------+ + Encounter Details +--------+ + + + + | Date | Type | Department | Care Team | Description | +--------+ + + + + | 10/28/ | Telephone | [facility] | Jose Gonzalez DO | Follow-up | | 2019 | | NEUROSURGERY [address] | | | | | [address] | [address] | | | | | [place], [place] | [place] [address] | | | | | [address] | [phone] | | | | | [phone] | | | +--------+ + + + + Social History + +-------+ +--------+------+ | Tobacco Use | Types | Packs/Day | Years | Date | | | | | Used | | + +-------+ +--------+------+ | Current Every Day | | 0.5 | 35 | | | Smoker | | | | | + +-------+ +--------+------+ + + | Comments: using e [employer], has information to quit | + + [...] ith the plan. elephon e Encounter - Meilna Marquez - 10/29/2019 1:54 PM PDTMelody, is [...] to immediately transfer the call to a p [place] orthodontic treatment coordinator was caller made aware that if at any time she feels it is an emergency they sh ould call 911 or go to the nearest emergency room? not applicable documented in this encounter Plan of Treatment Not on filedocumented as of this encounter Visit Diagnoses Not on filedocumented in this encounter"
--- OUTSIDE RECORDS SUMMARY | ~2020-02-12 | XMS | Encounter Summary ---
Demographics + + + | Address | [address] | | | [place] [address] | + + + | Home Phone [...] | [facility] | | | and [place] | + + + | Organization | [facility] | | [...] Team Providers + +------+ + | Care Preschool Disability Teacher Name | Role | Phone | + +------+ + | Hayden Acevedo MD | PCP | | + +------+ + Encounter Details +--------+ + + + + | Date | Type | Department | Care Team | Description | +--------+ + + + + | 06/22/ | Emergency | [facility] | Navneet Stewart | Cough; | | 2013 | | MEDICAL [facility]ENTER | DO Jazlyn Lopez W SALAZAR | Fever; | | | | EMERGENCY CENTER | [place], [place] | Bronchitis; | | | | [address] | [address] | Dyspnea | | | | [place], [place] | | | | | | [address] | | | | | | [phone] | | | +--------+ + + + [...] Filed: 06/22/13 1407 Date of Service: 06/22/13 140 Status: Signed Assistant Professor Of Religion: Mindy Ramírez RN (Registered Nurse) Road tested, 92% HR 118 Mindy Ramírez RN 06/22/13 1407 onver david Transaction, Provider Unknown - 06/22/2013 12:09 PM PST ED Notes by Mindy Ramírez RN at 06/22/13 1209 Author: Mindy Ramírez RN Service: (none) Author Type: Registered Nurse Filed: 06/22/13 1209 Date of Service: 06/22/13 120 Status: Signed Assistant Professor Of Religion: Mindy Ramírez RN (Registered Nurse) MD at bedside. Mindy Ramírez RN 06/22/13 120 orsyt Navneet rahman DO - 06/22/2013 11:59 AM PSTFormatting of this note might be different from t josiah original. ED Provider Notes by Navneet Stewart DO at 06/22/13 2847 Author: Navneet Stewart DO Service: (none) Author Type: Physician Filed: 06/22/13 1551 Date of Service: 06/22/13 5866 Status: Signed Assistant Professor Of Religion: Navneet Stewart DO (Physician) [facility] Department of Emergency Medicine 06/22/2013 [...] reviewed (Using the electronic record system of [facility], I car efully reviewed the records with regard to the [...] Documented by Navneet Stewart DO (06/22/13 1325, [facility], Emergency Medicine) No infiltrate or acute process noted ED Diagnoses Final diagnoses Cough Fever Bronchitis Dyspnea Disposition: ED Disposition Discharge Condition at discharge: Stable Follow-up Information Follow up With Details Comments Contact Info [facility] Emergency Department If symptoms worsen [address] [facility] [address] [facility] Schedule an appointment as soon as possible for a vis it [address] [place] [address] ANURAG [place] Discharge Medications: New Prescriptions ACETAMINOPHEN-CODEINE [...] its contents. DO Navneet Williamson DO 06/22/13 1551 documented in th is encounter Plan of Treatment Not on filedocumented as of this encounter Procedures + +--------+ + + + | Procedure Name | Priori | Date/Time | Associated Diagnosis | Comments | | | ty | | | | + +--------+ + + + | INFLUENZA A AND B | STAT | 06/22/2013 | | Results for this | | AG IA | | 1:00 PM | | [...] ICA | | | Testing performed at [facility];[address] [place] [address];[place] [address] | | | REPORT STATUS 06/22/2013 FINAL [...] COCCOBACILLI | | | Testing performed at [facility], [address] [place] [address], | | | [place] [address] CULTURE | | | SMEAR CONTAINS GREATER THAN 10 SEC/LPF SUGGESTIVE OF POOR QUALITY | | | SPECIMEN. SPECIMEN WILL NOT BE CULTURED OR WILL BE CULTURED BY | | | SPECIAL REQUEST ONLY. PLEASE RECOLLECT IF CLINICALLY INDICATED. | | | SPECIMEN WILL BE HELD 48 HOURS. | | | Testing performed at [facility], [address] [place] [address], | | | [place] [address] REPORT STATUS | | | 06/23/2013 FINAL | | + + + + +---------+ + + | Performing | Address | City[facility] | Phone Number | | Organization | [...]
--- OUTSIDE RECORDS SUMMARY | ~2020-02-12 | XMS | Encounter Summary ---
Demographics + + + | Address | [address] | | | [place] [address] | + + + | Home Phone [...] | Author | [facility] | | | and [place] | + + + | Organization | [facility] | | | [...] Team Providers + +------+ + | Care Flame Planer Name | Role | Phone | + [...] | Cervical | [address] | | | | n | radiculopath | [address] | [place], | | | | | y Left arm | [place], | [place] [address] | | | | | numbness | [place] [address] | Phone: | | | | | Left arm | Phone: | [phone] | | | | | weakness | [phone] | Fax: | | | | | Procedures | Fax: | [phone] | | | | | DOS 01/04/16 | [phone] | | +--------+ + + + + + Encounter Details +--------+ + + + + | Date | Type | Department | Care Team | Description | +--------+ + + + + | 01/31/ | Procedure | [facility] | Henri Stewart, | Cervicalgia (Primary | | 2016 | visit | PHYSIATRY [address] | MD [address] | Dx); Cervical | | | | [address] | [place] | radiculopathy; | | | | [place] | [address] | Cervical spinal | | | | [address] | | stenosis | | | | [phone] | | | +--------+ + + + [...] might be different fro m the original. 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 She reports that she sometimes drops objects [...] She has 4/5 biceps, deltoid and hand traffic clerk strength on the left compared to 5/5 [...] in this en counter Plan of Treatment Not on filedocumented as of this encounter Visit Diagnoses + + | Diagnosis | + + | Cervicalgia - Primary | + + | Cervical radiculopathy Brachial neuritis or radiculitis nos | + + | Cervical spinal stenosis Spinal stenosis in cervical region | + + documented in this encounter
--- OUTSIDE RECORDS SUMMARY | 2020-02-12 01:18 | XMS ---
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 Care History Medical/Surgical 09/23/2018 [facility] - PATIENT IS A [facility] ELIGIBLE, \T\middot;\T\nbsp; PLEASE REFER PATIENT TO [facility] FOR NON EMERGENT MEDICAL NEEDS. \T\middot;\T\nbsp; [facility] CAN SEE PATIENTS SAME DAY FOR APTS IF PATIENT CALLS FIRST THING IN THE MORNING. E.D. VISIT COUNT (12 MO.) 5 [facility] Munoz TOTAL 5 NOTE: Visits indicate total known visits. 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 - Insect bite (nonvenomous) of left upper arm, initial encounte - Delusional disorders - Chronic obstructive pulmonary disease, unspecified - Hyperlipidemia, unspecified - Hypothyroidism, unspecified 11/09/2019 21:38 [facility] TYPE: Emergency COMPLAINT: - SKIN PROBLEM DIAGNOSES: - Essential (primary) hypertension - Rash and other nonspecific skin eruption - Chronic obstructive pulmonary disease, unspecified - Other residential (current) drug therapy - Hyperlipidemia, unspecified - Hypothyroidism, unspecified 10/27/2019 15:53 [facility] [place] TYPE: Emergency COMPLAINT: - POSS INFECTION, SORES ON HANDS DIAGNOSES: - Chronic obstructive pulmonary disease, unspecified - Hyperlipidemia, unspecified - Disorder of the skin and subcutaneous tissue, unspecified - Nicotine dependence, unspecified, uncomplicated - Rash and other nonspecific skin eruption - 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 - Essential (primary) hypertension - Hypothyroidism, unspecified 08/22/2019 18:07 [facility] TYPE: Emergency COMPLAINT: - FLANK PAIN, URINE PROBLEM, FLU SX DIAGNOSES: - Nicotine dependence, unspecified, uncomplicated - Hypothyroidism, unspecified - Essential (primary) hypertension - Cough - Chronic obstructive pulmonary disease with (acute) exacerbati - 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
--- NOTE | 2020-02-14 15:09 | EKG ---
[facility] [address] [facility] [place] [address] Signed Normal sinus rhythm Prolonged QT Abnormal ECG When compared with ECG of 22-AUG-2019 18:48, Nonspecific T wave abnormality now evident in Anterior leads QT has lengthened Confirmed by WES REYEZ MD ([id number]) on 02/14/2020 3:09:25 PM Electronically Signed By: WES REYEZ MD 02/14/20 1509 PATIENT NAME: NOHEMI ESPITIA Electrocardiogram DATE OF : 60 PHYSICIAN: WES REYEZ MD REPORT #: [id number] REPORT IS CONFIDENTIAL AND NOT TO BE RELEASED WITHOUT AUTHORIZATION
== END 2020-02-12 01:47 | disposition home or self-care (01) ==
LOC: ED 01:16
DX: F22 Delusional disorders (principal); B88.9 Infestation, unspecified; F15.10 Other stimulant abuse, uncomplicated; R00.2 Palpitations; I10 Essential (primary) hypertension; J44.9 Chronic obstructive pulmonary disease, unspecified; E78.5 Hyperlipidemia, unspecified; E03.9 Hypothyroidism, unspecified; F17.200 Nicotine dependence, unspecified, uncomplicated; Z79.899 Other long term (current) drug therapy; Z85.828 Personal history of other malignant neoplasm of skin
CPT/HCPCS: 93005; 93010; 99285-25